=== PATIENT | male | born 1950 | race Caucasian/White ===

== ENCOUNTER 2016-08-30 02:12 | Inpatient (IN) | payer BC, OTHER ==
[2016-08-30] MEDS ORDERED: dilTIAZem HCL 50 MG/10 ML - 10 ML VIAL IVPUSH ONE ×3 (02:34→02:55)
[2016-08-30] MEDS ORDERED: dilTIAZem HCL 125 MG/25 ML - 25 ML VIAL ONE (02:35)
[2016-08-30] MEDS ORDERED: SODIUM CHLORIDE 0.9% 500 ML INFUS.BAG IV ONE (02:38)
[2016-08-30] MEDS ORDERED: IBUPROFEN 600 MG TABLET (FP) PO ONE ×2 (02:39→02:43)
[2016-08-30] MEDS ORDERED: ACETAMINOPHEN 1000 MG/100 ML VIAL (NON FORMULARY) IVPB ONE (02:39)
[2016-08-30] MEDS ORDERED: ACETAMINOPHEN INJECTION 100 ML IVPB ONE (02:43)
[2016-08-30 02:44] LABS: BASOPHIL 0.3 % (0-2.0); EOSINOPHIL 1.5 % (0-4.5); MCH 29.6 pg (25.7-33.7); MEAN CELL VOLUME 89.6 fl (80-96); MEAN PLT VOLUME 8.6 fl (7.5-11.1); NEUTROPHILS 78.2 % (42.8-82.8); PLATELET COUNT 145 K/MM3 (134-434); RDW 14.8 % (11.9-15.9); WHITE BLOOD COUNT 12.7 K/mm3 (4.0-10.0)
--- NOTE | 2016-08-30 02:47 | PDOC ---
History of Present Illness - General History Source: Patient, Old Records - History of Present Illness Initial Comments: 08/30/16 03:01 The patient is a 65 year old male with a significant past medical history of COPD, CHF, [place] x2, hyperlipidemia, and pulmonary hypertension, on a lung transplant program for 8 years, brought by ambulance to the Emergency Department with subjective fever, and heart palpitations. The patient reports that he came home from the theatre earlier tonight when he started experiencing heart palpitations and a subjective fever that he often feels with episodes of heart palpitations. He admits that these episodes occur frequently, and he called his pillowcase cleaner Dr. Gutierrez who advised him to come to the ED. The patient reports a cough and shortness of breath, and admits to the need for a lung transplant due to COPD and a hole in his lung. The patient admits that he no longer smokes cigarettes. The patient denies chest pain. Patient denies hemoptysis. Patient denies nausea , vomiting, and diarrhea. Patient denies headache, dizziness, and blurry vision. Patient denies dysuria, urinary frequency, and hematuria. PCP: Dr. Leslie Insecticide Supervisor: Dr. Gutierrez <Nila Culver - Last Filed: 08/30/16 05:53> <Betsy White - Last Filed: 09/01/16 04:07> - General Chief Complaint: Shortness of Breath Stated Complaint: SHORTNESS OF BREATH Time Seen by Provider: 08/30/16 02:33 Past History <Nila Culver - Last Filed: 08/30/16 05:53> - Past Medical History Anemia: No Asthma: No Cancer: No Cardiac Disorders: Yes (TX, CHF) CVA: No COPD: Yes (o2 at home) CHF: Yes Dementia: No Diabetes: No GI Disorders: Yes (umbilical hernia x 2) Disorders: Yes (UTI) HTN: Yes (FLUCTUATE) Hypercholesterolemia: Yes Kidney Stones: Yes Suicide Attempt (Hx): No Seizures: No Thyroid Disease: No - Surgical History Abdominal Surgery: No Appendectomy: No Cardiac Surgery: No Cholecystectomy: No Lung Surgery: No Neurologic Surgery: No Orthopedic Surgery: No - Psycho/Social/Smoking Cessation Hx Anxiety: Yes (per pt has panic) Suicidal Ideation: No Smoking Status: No Smoking History: Never smoked Have you smoked in the past 12 months: No Number of Cigarettes Smoked Daily: 40 If you are a former smoker, when did you quit?: 2004 Information on smoking cessation initiated: No Hx Alcohol Use: No Drug/Substance Use Hx: No Substance Use Type: None Hx Substance Use Treatment: No <Betsy White - Last Filed: 09/01/16 04:07> - Past Medical History Allergies/Adverse Reactions: Allergies Allergy/AdvReac Type Severity Reaction Status Date / Time moxifloxacin HCl Allergy Severe Verified 08/30/16 02:24 [From Avelox] aclidinium bromide Allergy Verified 08/30/16 02:24 [From Tudorza Pressair] shellfish derived Allergy Verified 08/30/16 02:24 Home Medications: Ambulatory Orders Albuterol Sulfate Inhaler - [Ventolin HFA Inhaler -] 2 inh PO Q4H 02/08/14 Arformoterol Tartrate [Brovana] 15 mcg IH BID 02/08/14 Aspirin [ASA -] 81 mg PO DAILY 02/08/14 Furosemide [Lasix -] 20 mg PO PRN 02/08/14 Tamsulosin HCl [Flomax -] 0.4 mg PO DAILY 02/08/14 Tiotropium [place] [Spiriva] 1 inh PO DAILY 02/08/14 Beclomethasone Dipropionate [Qvar] 8.7 gm IH DAILY 01/09/16 Alprazolam [Xanax] 0.25 mg PO BID #20 tablet MDD 2 01/18/16 Atorvastatin Ca [Lipitor] 10 mg PO DAILY 08/30/16 Review of Systems - Review of Systems Able to Perform ROS?: Yes Comments:: 08/30/16 03:03 GENERAL/CONSTITUTIONAL: + subjective fever. No chills. No weakness. HEAD, EYES, EARS, NOSE AND THROAT: No change in vision. No ear pain or discharge. No sore throat. CARDIOVASCULAR: + shortness of breath, + palpitations. No chest pain. RESPIRATORY: + cough. No wheezing, or hemoptysis. GASTROINTESTINAL: No nausea, vomiting, diarrhea or constipation. GENITOURINARY: No dysuria, frequency, or change in urination. MUSCULOSKELETAL: No joint or muscle swelling or pain. No neck or back pain. SKIN: No rash NEUROLOGIC: No headache, vertigo, loss of consciousness, or change in strength/ sensation. ENDOCRINE: No increased thirst. No abnormal weight change. HEMATOLOGIC/LYMPHATIC: No anemia, easy bleeding, or history of blood clots. ALLERGIC/IMMUNOLOGIC: No hives or skin allergy. <Nila Culver - Last Filed: 08/30/16 05:53> *Physical Exam - Vital Signs Last Vital Signs Temp Pulse Resp BP Pulse Ox 100.4 F H 137 H 26 H 116/84 100 08/30/16 02:24 08/30/16 02:24 08/30/16 02:24 08/30/16 02:24 08/30/16 02:24 - Physical Exam Comments: 08/30/16 05:53 GENERAL: Fever noted. Awake, alert, and fully oriented, in no acute distress HEAD: No signs of trauma EYES: PERRLA, EOMI, sclera anicteric, conjunctiva clear ENT: Auricles normal inspection, hearing grossly normal, nares patent, oropharynx clear without exudates. Moist mucosa NECK: Normal ROM, supple, no lymphadenopathy, JVD, or masses LUNGS: Decreased breath sounds bilaterally and throughout. No wheezes, and no crackles HEART: Tachycardic but regular rhythm. No murmurs, rubs or gallops ABDOMEN: Soft, nontender, normoactive bowel sounds. No guarding, no rebound. No masses EXTREMITIES: Normal range of motion, no edema. Moving all extremities. No clubbing or cyanosis. No cords, erythema, or tenderness NEUROLOGICAL: Cranial nerves II through XII grossly intact. Normal speech, normal gait SKIN: Warm, Dry, normal turgor, no rashes or lesions noted. <Nila Culver - Last Filed: 08/30/16 05:53> - Vital Signs Last Vital Signs Temp Pulse Resp BP Pulse Ox 100.4 F H 137 H 26 H 116/84 100 08/30/16 02:24 08/30/16 02:24 08/30/16 02:24 08/30/16 02:24 08/30/16 02:24 <Betsy White - Last Filed: 09/01/16 04:07> ED Treatment Course - LABORATORY CBC & Chemistry Diagram: 08/30/16 02:33 08/30/16 02:33 - ADDITIONAL ORDERS Additional order review: 08/30/16 02:33 RBC 4.44 MCV 89.6 MCHC 33.0 RDW 14.8 MPV 8.6 Neutrophils % 78.2 Lymphocytes % 11.2 D Monocytes % 8.8 Eosinophils % 1.5 D Basophils % 0.3 D - RADIOLOGY Radiograph Interpretation: 08/30/16 03:[address] from 07/16/[address] Julisa Cameron IMPRESSION: No significant interval change. Bilateral upper lobe pleural thickening, scarring and traction bronchiectatic changes are again seen, mainly posteriorly with an approximately 2.6 cm cyst/cavity in the left upper lobe, posteriorly, without interval change. Mild lung emphysema. Nonobstructing right renal stones. - Medications Given in the ED: ED Medications Discontinued Medications Generic Name Dose Route Start Last Admin Trade Name Freq PRN Reason Stop Dose Admin Acetaminophen 1,000 mg 08/30/16 02:39 08/30/16 02:49 Ofirmev Injection - IVPB 08/30/16 02:40 1,000 mg ONCE ONE Administration Ibuprofen 600 mg 08/30/16 02:39 08/30/16 02:48 Motrin - PO 08/30/16 02:40 600 mg ONCE ONE Administration <Nila Culver - Last Filed: 08/30/16 05:53> - LABORATORY CBC & Chemistry Diagram: 08/31/16 06:00 08/31/16 06:00 - RADIOLOGY Radiology Studies Ordered: Category Date Time Status CHEST X-RAY PORTABLE* [RAD] Stat Radiology 08/30/16 02:27 Ordered <Betsy White - Last Filed: 09/01/16 04:07> Medical Decision Making - Medical Decision Making 08/30/16 03:28 Dr. Leslie was called at his office at 3:18. Dr. Leslie returned the call and spoke to Dr. White about the patient's care. <Nila Culver - Last Filed: 08/30/16 05:53> - Medical Decision Making 09/01/16 04:04 Pt comes with SOB and palpitations. He was at a dinner theatre tonight, and states that he overexerted self, ate salty foods, and furthermore his antibiotic for bronchitis is not controlling his infection, and as a result he has hypoxia and cough and fever. Pt was placed on IV abx and labs sent and hydrated and placed on bipap, for comfort. He is tachycardic on arrival. He was treated with IV diltiazem and because of tachycardia His PMD and I agreed to admit him to the telemetry unit. <Betsy White - Last Filed: 09/01/16 04:07> *DC/Admit/Observation/Transfer - Attestations Scribe Attestion: 08/30/16 03:04 Documentation prepared by Nila Culver, acting as medical technician assistant for Betsy White MD. <Nila Culver - Last Filed: 08/30/16 05:53> - Discharge Dispostion Admit: Yes <Betsy White - Last Filed: 09/01/16 04:07> Diagnosis at time of Disposition: COPD (chronic obstructive pulmonary disease) with acute bronchitis, Bilateral pneumonia, Fever, Acute respiratory distress, Tachycardia - Referrals
[2016-08-30] MEDS ORDERED: PIPERACILLIN/TAZOB 3.375 GM 3.375 GM in DEXTROSE 5%-WATER - 50 ML IVPB ONE (02:51)
[2016-08-30 03:06] LABS: INR 1.08 (0.82-1.09); PROTHROMBIN TIME (PATIENT) 11.9 SEC (9.98-11.88)
[2016-08-30 03:16] LABS: ALBUMIN 3.8 g/dl (3.4-5.0); ANION GAP 10 (8-16); BILIRUBIN,TOTAL 0.5 mg/dL (0.2-1.0); CALCIUM 8.7 mg/dL (8.5-10.1); CO2 34 mmol/L (21-32); CREATININE 0.9 mg/dL (0.7-1.3); GLUCOSE,RANDOM 100 mg/dL (74-106); SGOT/AST 16 U/L (15-37); SGPT/ALT 20 U/L (12-78); TOT PROT 6.9 g/dl (6.4-8.2)
[2016-08-30 03:18] LABS: ALK PHOS 75 U/L (45-117); TROPONIN I < 0.02 ng/ml (0.00-0.05)
[2016-08-30] MEDS ORDERED: PIPERACILLIN/TAZOB 3.375 GM 50 ML IVPB ONE (03:19)
[2016-08-30 03:21] LABS: URINE APPEARANCE CLEAR; URINE BILIRUBIN NEGATIVE (NEGATIVE); URINE COLOR LTYELLOW; URINE GLUCOSE (UA) NEGATIVE (NEGATIVE); URINE KETONE NEGATIVE (NEGATIVE); URINE LEUK ESTERASE NEGATIVE (NEGATIVE); URINE NITRITE NEGATIVE (NEGATIVE); URINE PROTEIN NEGATIVE (NEGATIVE); URINE UROBILINOGEN NEGATIVE E.U./dl (0.2-1.0)
[2016-08-30 03:33] LABS: URINE BLOOD 1+ (NEGATIVE)
[2016-08-30] MEDS ORDERED: ACETAMINOPHEN 325 MG TABLET (FP) PO PRN (03:41)
[2016-08-30 04:10] LABS: URINE MUCUS RARE; URINE RBC 3 /hpf (0-3); URINE WBC <1 /hpf (3-5)
[2016-08-30 06:45] LABS: TROPONIN I < 0.02 ng/ml (0.00-0.05)
[2016-08-30] MEDS: SODIUM CHLORIDE 1,000 ML IV SCH ×2 (07:30→22:27)
[2016-08-30] MEDS: TAMSULOSIN HCL 0.4 MG CAP.ER.24H (FP) PO SCH (09:24)
[2016-08-30] MEDS: methylPREDNISolone NA SUCC 125 MG/2 ML VIAL IVPB SCH ×4 (10:05→22:25)
[2016-08-30] MEDS: HEPARIN NA (PORCINE) 5,000 UNITS/ML 1ML VIAL SQ SCH ×2 (10:05→22:25)
[2016-08-30] MEDS: ASPIRIN 81 MG CHEWABLE TABLETS PO SCH (10:05)
[2016-08-30] MEDS: ALPRAZolam 0.25 MG TABLET PO SCH ×2 (10:05→22:25)
[2016-08-30] MEDS ORDERED: ALPRAZolam 0.25 MG TABLET ONE (10:09)
--- NOTE | 2016-08-30 11:19 | PN ---
Progress Note (short form) - Note Progress Note: Pulmonary I was called by patient early this A.M. be because he developed sudden onset of fever to 102.4 and chills. No increase in dyspnea or sputum. No chest pain or palpitations. Pt was advised to go to ER for further evaluation to r/o sepsis. PMH positive for : Severe COPD-O2 and steroid dependent Recurrent renal stones requiring lithotripsy several times UTI several times Hypertension Pt couldn't tolerate Tudorza in the past but does well with Spiriva. Patient is followed by the transplant program at [place] but his lung function is "not bad enough" for transplantation. He goes to Pulmonary Rehab at [facility] on a regular basis. In December 2015 he was in hospital with acute bronchitis and found to have a left apical cavity: AFB smear (+) for numerous AFB. CT findings had worsened compared to 06/16 so this was felt to possibly represent tissue infection rather than colonization and could eventually require tx. M.TB PCR and MAC PCR, however, were both negative. Cultures eventually grew out Mycobacterium Xenopi. Pt has remained asymptomatic and his cavity has not significantly changed on subsequent CT so he not been treated for M.Xenopi but his CT is followed periodically. I am unaware of the history of myocardial infarctions mentioned in the ER physician's note. Full consult to follow.
--- NOTE | 2016-08-30 12:19 | EKG ---
Test Reason : Blood Pressure : / mmHG Vent. Rate : 134 BPM Atrial Rate : 134 BPM P-R Int : 158 ms QRS Dur : 124 ms QT Int : 382 ms P-R-T Axes : 080 083 035 degrees QTc Int : 570 ms POOR DATA QUALITY, INTERPRETATION MAY BE ADVERSELY AFFECTED SINUS TACHYCARDIA RIGHT BUNDLE BRANCH BLOCK T WAVE ABNORMALITY, CONSIDER INFERIOR ISCHEMIA ABNORMAL ECG WHEN COMPARED WITH ECG OF 14-FEB-2016 07:36, NO SIGNIFICANT CHANGE WAS FOUND Confirmed by EULALIO INIGUEZ MD ([id number]) on 08/30/2016 12:19:12 PM Referred By: Confirmed By:EULALIO INIGUEZ MD
--- NOTE | 2016-08-30 13:27 | HP ---
Admitting History and Physical - Admission History of Present Illness: 65 year old male with a significant past medical history of COPD, CHF, [place] x2, hyperlipidemia, and pulmonary hypertension, on a lung transplant program for 8 years, brought by ambulance to the Emergency Department with subjective fever, and heart palpitations. The patient reports that he came home from the theatre earlier tonight when he started experiencing heart palpitations and a subjective fever that he often feels with episodes of heart palpitations. The patient reports a cough and shortness of breath, - Past Medical History Cardiovascular: Yes: CHF, Hyperlipdemia, Pulmonary Hypertension Pulmonary: Yes: COPD (home oxygen), Previously Intubated (intubated one time several years ago for respiratory failure) Gastrointestinal: Yes: GERD Renal/: Yes: Renal Calculi, UTI - Smoking History Smoking history: Never smoked Have you smoked in the past 12 months: No Aproximately how many cigarettes per day: 40 If you are a former smoker, when did you quit?: 2004 - Alcohol/Substance Use Hx Alcohol Use: No History of Substance Use: reports: None - Social History ADL: Independent 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 History of Recent Travel: No Home Medications - Allergies Allergies/Adverse Reactions: Allergies Allergy/AdvReac Type Severity Reaction Status Date / Time moxifloxacin HCl Allergy Severe Verified 08/30/16 02:24 [From Avelox] aclidinium bromide Allergy Verified 08/30/16 02:24 [From Tudorza Pressair] shellfish derived Allergy Verified 08/30/16 02:24 - Home Medications Home Medications: Ambulatory Orders Albuterol Sulfate Inhaler - [Ventolin HFA Inhaler -] 2 inh PO Q4H 02/08/14 Arformoterol Tartrate [Brovana] 15 mcg IH BID 02/08/14 Aspirin [ASA -] 81 mg PO DAILY 02/08/14 Furosemide [Lasix -] 20 mg PO PRN 02/08/14 Tamsulosin HCl [Flomax -] 0.4 mg PO DAILY 02/08/14 Tiotropium [place] [Spiriva] 1 inh PO DAILY 02/08/14 Beclomethasone Dipropionate [Qvar] 8.7 gm IH DAILY 01/09/16 Alprazolam [Xanax] 0.25 mg PO BID #20 tablet MDD 2 08/19/16 Atorvastatin Ca [Lipitor] 10 mg PO DAILY 08/30/16 Review of Systems - Review of Systems Constitutional: reports: Fever, Weakness Respiratory: reports: Cough, SOB Gastrointestinal: denies: Abdominal Pain Physical Examination Vital Signs: Vital Signs Temperature 97.6 F 08/30/16 10:05 Pulse Rate 85 08/30/16 13:01 Respiratory Rate 20 08/30/16 13:01 Blood Pressure 98/58 08/30/16 13:01 O2 Sat by Pulse Oximetry (%) 100 08/30/16 13:01 Cardiovascular: Yes: Tachycardia, S1, S2 Respiratory: Yes: Diminished, Rhonchi Gastrointestinal: Yes: Normal Bowel Sounds, Soft Problem List - Problems (1) Acute respiratory distress Assessment/Plan: O2 PULM ON CASE STEROIDS NEBS Code(s): J80 - ACUTE RESPIRATORY DISTRESS SYNDROME (2) COPD (chronic obstructive pulmonary disease) with acute bronchitis Assessment/Plan: ABOVE Code(s): J44.0 - CHRONIC OBSTRUCTIVE PULMON DISEASE W ACUTE LOWER RESP INFCT (3) Tachycardia Assessment/Plan: DUE TO FEVER MONITOR EKG CARDIO Code(s): R00.0 - TACHYCARDIA, UNSPECIFIED (4) Pneumonia Assessment/Plan: ABX F/U CXR ID Code(s): J18.9 - PNEUMONIA, UNSPECIFIED ORGANISM
[2016-08-30] MEDS ORDERED: methylPREDNISolone NA SUCC 40 MG/1 ML VIAL ONE ×2 (14:55→18:31)
--- NOTE | 2016-08-30 18:29 | PN ---
Progress Note (short form) - Note Progress Note: ID consult dictated imp/reccd Fever COPD 65 year old man with COPD home oxygen, CAD, admitted with fever- no diarrhea, no dysuria, no cough or SOB cxray no infiltrate cultures sent rocephin for now
[2016-08-30] MEDS: cefTRIAXone 1 GM/50 ML BAG (PRE-DOCKED) IVPB SCH (19:20)
[2016-08-30] MEDS ORDERED: CEFTRIAXONE 50 ML ONE (19:21)
--- NOTE | 2016-08-30 19:47 | CONS ---
DATE OF CONSULTATION: 08/30/2016 INFECTIOUS DISEASE CONSULTATION HISTORY OF PRESENT ILLNESS: This is a 65-year-old man with a past medical history of COPD, CHF, atypical mycobacteria. He went to a play last night with his . He is on home oxygen. He noted while he was at the play that his oxygen tank was empty, but he felt fine. After the play he said it was very cold and damp and rainy outside. They went to [facility] to see his daughter who was admitted there. After there, he went home. After he got home he took his temperature and he was feeling weak, tired and had some nausea and he had a temperature of 101.6. He denies any cough. He denies any dysuria. He has no nausea or vomiting. He called Dr. Mckee who advised him to come to the emergency room. He did not have any rigors. He to the ER reported palpitations. He has no chest pain. PAST MEDICAL HISTORY: Is notable for history of heart failure, hyperlipidemia, pulmonary hypertension, COPD on home oxygen. He was intubated in the remote past. He has been doing very well with pulmonary rehab. He has a history of GERD, renal calculi, prior history of UTI. He recently saw Dr. Castillo about a week ago who checked his urine and told him everything was fine. ALLERGIES: MOXIFLOXACIN ,TUDORZA, SHELLFISH. MEDICATIONS AN OUTPATIENT: Include Ventolin inhaler, Brovana, aspirin, furosemide, Flomax, Spiriva, QVAR, Xanax and Lipitor. FAMILY HISTORY: Noncontributory. SOCIAL HISTORY: He is and lives with his . He stopped smoking in 2004. There is no history of any substance use. He has been on disability. REVIEW OF SYSTEMS: As per HPI. There has been no diarrhea, dysuria. PHYSICAL EXAMINATION; VITAL SIGNS: Temperature 97.6, he has had no fever since admission, pulse of 85, blood pressure 98/58, respiratory rate 20, O2 saturation is 100% on 3 L. HEENT: Normocephalic. Eyes are anicteric. NECK: Supple. LUNGS: Clear to auscultation. HEART: Regular rate and rhythm. ABDOMEN: Soft, nontender. EXTREMITIES: No edema. GENERAL: He is eating his dinner quite comfortably and feels well. LABORATORY DATA: White count of 12.7, hemoglobin 13.1. BUN 18, creatinine 0.9. LFTs are normal. Urinalysis is negative. Culture are pending. Influenza screen is negative. Chest x-ray is negative. IMPRESSION AND RECOMMENDATIONS: In summary this is a 65-year-old man with sudden onset of fever, admitted for further evaluation. Cultures are pending. We will treat him at this time with ceftriaxone while awaiting further test results. This may all be a viral syndrome in which case hopefully in 48 hours we will be able to discharge him home. Follow up recommendations to follow based on his clinical course. AKUA BRYAN M.D. HUMA/[id number]
[2016-08-30 22:53] VITALS: BMI 22.6
[2016-08-31] MEDS: SODIUM CHLORIDE 1,000 ML IV SCH ×2 (06:35→15:03)
[2016-08-31] MEDS: PIPERACILLIN/TAZOB 3.375 GM/50 ML PRE-DOCKED IVPB SCH (07:06)
[2016-08-31] MEDS: ALBUTEROL SO4 0.083% IH SOL 2.5 MG/3 ML VIAL.NEB. NEB PRN (07:15)
[2016-08-31 07:42] LABS: MCH 30.5 pg (25.7-33.7); MCHC 33.8 g/dl (32.0-35.9); MEAN CELL VOLUME 90.1 fl (80-96); MEAN PLT VOLUME 8.7 fl (7.5-11.1); NEUTROPHILS 93.9 % (42.8-82.8); PLATELET COUNT 143 K/MM3 (134-434); RDW 14.7 % (11.9-15.9); WHITE BLOOD COUNT 9.9 K/mm3 (4.0-10.0)
[2016-08-31 07:49] LABS: FREE T4 1.22 ng/dl (0.76-1.16); TROPONIN I < 0.02 ng/ml (0.00-0.05)
[2016-08-31 07:50] LABS: ALBUMIN 3.2 g/dl (3.4-5.0); ANION GAP 12 (8-16); CALCIUM 8.1 mg/dL (8.5-10.1); CO2 24 mmol/L (21-32); GLUCOSE,RANDOM 138 mg/dL (74-106)
[2016-08-31 08:02] LABS: ALK PHOS 66 U/L (45-117); BILIRUBIN,TOTAL 0.6 mg/dL (0.2-1.0); CREATININE 0.6 mg/dL (0.7-1.3); SGOT/AST 16 U/L (15-37); SGPT/ALT 22 U/L (12-78); THYROID STIMULATING HORMONE 0.18 uIU/ml (0.358-3.74); TOT PROT 6.4 g/dl (6.4-8.2)
[2016-08-31] MEDS: TAMSULOSIN HCL 0.4 MG CAP.ER.24H (FP) PO SCH (08:34)
[2016-08-31] MEDS: ALPRAZolam 0.25 MG TABLET PO SCH ×2 (09:16→21:29)
[2016-08-31] MEDS: HEPARIN NA (PORCINE) 5,000 UNITS/ML 1ML VIAL SQ SCH ×3 (09:16→21:35)
[2016-08-31] MEDS: methylPREDNISolone NA SUCC 125 MG/2 ML VIAL IVPB SCH ×4 (09:16→21:28)
[2016-08-31] MEDS: ASPIRIN 81 MG CHEWABLE TABLETS PO SCH (09:17)
--- NOTE | 2016-08-31 09:49 | PN ---
Progress Note, Physician History of Present Illness: feels better - Current Medication List Current Medications: Active Medications Acetaminophen (Tylenol -) 650 mg PO Q4H PRN PRN Reason: FEVER Albuterol Sulfate (Ventolin 0.083% Nebulizer Soln -) 1 amp NEB Q4H PRN PRN Reason: SHORT OF BREATH/WHEEZING Last Admin: 08/31/16 07:15 Dose: 1 amp Alprazolam (Xanax -) 0.25 mg PO BID [facility] Last Admin: 08/31/16 09:16 Dose: 0.25 mg Aspirin (Asa -) 81 mg PO DAILY [facility] Last Admin: 08/31/16 09:17 Dose: 81 mg Atorvastatin Calcium (Lipitor -) 10 mg PO HS [facility] Ceftriaxone Sodium (Rocephin 1gm Ivpb (Pre-Docked)) 1 gm IVPB DAILY [facility] PRN Reason: Protocol Last Admin: 08/30/16 19:20 Dose: 1 gm Furosemide (Lasix -) 20 mg PO DAILY [facility] Heparin Sodium (Porcine) (Heparin -) 5,000 unit SQ BID [facility] Last Admin: 08/31/16 09:21 Dose: Not Given Sodium Chloride (Normal Saline -) 1,000 mls @ 75 mls/hr IV ASDIR [facility] Last Admin: 08/31/16 06:35 Dose: Not Given Methylprednisolone Sodium Succinate (Solu-Medrol -) 80 mg IVPB QID [facility] Last Admin: 08/31/16 09:16 Dose: 80 mg Tamsulosin HCl (Flomax -) 0.4 mg PO DAILY@0830 [facility] Last Admin: 08/31/16 08:34 Dose: 0.4 mg - Objective Vital Signs: Vital Signs Temperature 97.6 F 08/31/16 06:00 Pulse Rate 81 08/31/16 06:00 Respiratory Rate 18 08/31/16 06:00 Blood Pressure 129/81 08/31/16 06:00 O2 Sat by Pulse Oximetry (%) 98 08/30/16 22:00 Cardiovascular: Yes: Regular Rate and Rhythm Respiratory: Yes: Diminished, On Nasal O2, Rhonchi Gastrointestinal: Yes: Normal Bowel Sounds, Soft Edema: No Neurological: Yes: Alert, Oriented. No: Aphasia, Dysarthria, Facial Droop Labs: CBC, BMP 08/31/16 06:00 08/31/16 06:00 INR, PTT INR 1.08 (0.82-1.09) 08/30/16 02:33 Problem List - Problems (1) Acute respiratory distress Assessment/Plan: O2 PULM ON CASE STEROIDS NEBS Code(s): J80 - ACUTE RESPIRATORY DISTRESS SYNDROME (2) COPD (chronic obstructive pulmonary disease) with acute bronchitis Assessment/Plan: ABOVE Code(s): J44.0 - CHRONIC OBSTRUCTIVE PULMON DISEASE W ACUTE LOWER RESP INFCT (3) Tachycardia Assessment/Plan: DUE TO FEVER MONITOR--HOLTER EKG CARDIO Code(s): R00.0 - TACHYCARDIA, UNSPECIFIED (4) Pneumonia Assessment/Plan: ABX F/U CT ID Code(s): J18.9 - PNEUMONIA, UNSPECIFIED ORGANISM (5) Syncope Assessment/Plan: ECHO HOLTER CARDIO AND NEURO Code(s): R55 - SYNCOPE AND COLLAPSE
[2016-08-31] MEDS: cefTRIAXone 1 GM/50 ML BAG (PRE-DOCKED) IVPB SCH (11:21)
[2016-08-31] MEDS: FUROSEMIDE 20 MG TABLET (FP) PO SCH (12:03)
--- NOTE | 2016-08-31 14:46 | PN ---
Progress Note (short form) - Note Progress Note: Chief Complaint: Events noted, notes reviewed, Fever and progressive dyspnea in a patient with known history of advanced chronic obstructive pulmonary disease on home oxygen therapy History of Present Illness: Seen and examined. Full consult dictated - Current Medication List Current Medications Acetaminophen (Tylenol -) 650 mg PO Q4H PRN PRN Reason: FEVER Albuterol Sulfate (Ventolin 0.083% Nebulizer Soln -) 1 amp NEB Q4H PRN PRN Reason: SHORT OF BREATH/WHEEZING Last Admin: 08/31/16 07:15 Dose: 1 amp Alprazolam (Xanax -) 0.25 mg PO BID [facility] Last Admin: 08/31/16 09:16 Dose: 0.25 mg Aspirin (Asa -) 81 mg PO DAILY [facility] Last Admin: 08/31/16 09:17 Dose: 81 mg Atorvastatin Calcium (Lipitor -) 10 mg PO HS [facility] Ceftriaxone Sodium (Rocephin 1gm Ivpb (Pre-Docked)) 1 gm IVPB DAILY [facility] PRN Reason: Protocol Last Admin: 08/31/16 11:21 Dose: 1 gm Furosemide (Lasix -) 20 mg PO DAILY [facility] Last Admin: 08/31/16 12:03 Dose: 20 mg Heparin Sodium (Porcine) (Heparin -) 5,000 unit SQ BID [facility] Last Admin: 08/31/16 09:21 Dose: Not Given Sodium Chloride (Normal Saline -) 1,000 mls @ 75 mls/hr IV ASDIR [facility] Last Admin: 08/31/16 06:35 Dose: Not Given Methylprednisolone Sodium Succinate (Solu-Medrol -) 80 mg IVPB QID [facility] Last Admin: 08/31/16 09:16 Dose: 80 mg Tamsulosin HCl (Flomax -) 0.4 mg PO DAILY@0830 [facility] Last Admin: 08/31/16 08:34 Dose: 0.4 mg - Review of Systems Cardiovascular: As noted above Respiratory: As noted above Gastrointestinal: denies: Nausea, Vomiting, Diarrhea, Constipation or Abdominal Pain Musculoskeletal: No symptoms reported Neurological: No symptoms reported - Objective Vital Signs: Last Vital Signs Temp Pulse Resp BP Pulse Ox 97.6 F 89 22 129/72 100 08/31/16 10:00 08/31/16 10:00 08/31/16 10:00 08/31/16 10:00 08/31/16 09:00 Neck: Supple Negative JVD Cardiovascular: S1 S2 Regular Rate Rhythm Respiratory: Diminished breath sounds Gastrointestinal: Soft Benign Normal Bowel Sounds Ext: Negative Edema Labs: Assessment/Plan ASSESSMENT: 1. Acute exacerbation of advanced chronic obstructive pulmonary disease on home oxygen therapy, probable pneumonia 2. CAD non-obstructive coronary artery disease angina pectoris 3. Diastolic LV dysfunction with class 0-I NYHA classification LV failure, compensated 4. HTN 5. Hypercholesterolemia 6. Palpitations, referable to sinus tachycardia with no evidence of supra- ventricular tachycardia PLAN: 1. Antibiotics as per the primary team 2. Steroids and bronchodilators as per the pulmonary team 3. If palpitations recur and/or persists additional evaluation is recommended, probable event monitor 4. No value in treating the above noted sinus tachycardia, treatment of the underlying pathology i.e. advanced chronic obstructive pulmonary disease and the febrile illness Ashley Bojorquez MD
--- NOTE | 2016-08-31 14:48 | PN ---
Progress Note (short form) - Note Progress Note: no further fevers apparently had an episode on Thursday with diminished vision?- went for head ct currently no complaints CBC, BMP Vital Signs Period Temp Pulse Resp BP Sys/Morgan Pulse Ox Last 24 Hr 97.5 F-97.9 F 80-93 16-22 128-152/64-81 98-100 cor-rrr lungs clear abd soft,nt ext no edema 08/31/16 06:00 08/31/16 06:00 Microbiology 08/30/16 03:00 Urine - Urine Clean Catch Urine Culture - Final NO GROWTH OBTAINED 08/30/16 03:00 Blood - Peripheral Venous Blood Culture - Preliminary NO GROWTH OBTAINED AFTER 24 HOURS, INCUBATION TO CONTINUE FOR 4 DAYS. 08/30/16 02:57 Blood - Peripheral Venous Blood Culture - Preliminary NO GROWTH OBTAINED AFTER 24 HOURS, INCUBATION TO CONTINUE FOR 4 DAYS. 08/30/16 10:02 Nasopharyngeal Swab Influenza Types A,B Antigen (MANSI) - Final 08/30/16 10:02 Nasopharyngeal Swab - Final a/p for ct scan of chest and head, f/u cultures continue rocephin pending ct scan result
[2016-08-31] MEDS: ATORVASTATIN CA 10 MG TABLET (FP) PO SCH (21:28)
[2016-08-31] MEDS: ARFORMOTEROL TARTRATE 15 MCG/2 ML VIAL NEB SCH (23:10)
[2016-09-01] MEDS: ALBUTEROL SO4 0.083% IH SOL 2.5 MG/3 ML VIAL.NEB. NEB PRN (05:15)
[2016-09-01] MEDS: SODIUM CHLORIDE 1,000 ML IV SCH (05:58)
[2016-09-01] MEDS: TAMSULOSIN HCL 0.4 MG CAP.ER.24H (FP) PO SCH (08:22)
[2016-09-01] MEDS: methylPREDNISolone NA SUCC 125 MG/2 ML VIAL IVPB SCH (09:06)
[2016-09-01] MEDS: HEPARIN NA (PORCINE) 5,000 UNITS/ML 1ML VIAL SQ SCH ×2 (09:11→21:36)
[2016-09-01] MEDS: FUROSEMIDE 20 MG TABLET (FP) PO SCH (09:12)
[2016-09-01] MEDS: ALPRAZolam 0.25 MG TABLET PO SCH ×2 (09:12→21:39)
[2016-09-01] MEDS: ASPIRIN 81 MG CHEWABLE TABLETS PO SCH (09:12)
[2016-09-01] MEDS: cefTRIAXone 1 GM/50 ML BAG (PRE-DOCKED) IVPB SCH (09:14)
--- NOTE | 2016-09-01 09:58 | CON.PULM ---
Consult Consult Specialty:: Pulmonary Reason for Consultation:: fever and dyspnea - History of Present Illness Chief Complaint: fever and chills History of Present Illness: 65 year old male with severe COPD, O2 and steroid dependent, developed fever and chills after going to the theatre.No sputum or hemoptysis. No chest pain or palpitations. PMH positive for : Severe COPD-O2 and steroid dependent Recurrent renal stones requiring lithotripsy several times UTI several times Hypertension Pt couldn't tolerate Tudorza in the past but does well with Spiriva. Patient is followed by the transplant program at [place] but his lung function is "not bad enough" for transplantation. He goes to Pulmonary Rehab at [facility] on a regular basis. In December 2015 he was in hospital with acute bronchitis and found to have a left apical cavity: AFB smear (+) for numerous AFB. CT findings had worsened compared to 06/16 so this was felt to possibly represent tissue infection rather than colonization and could eventually require tx. M.TB PCR and MAC PCR, however, were both negative. Cultures eventually grew out Mycobacterium Xenopi. Pt has remained asymptomatic and his cavity has not significantly changed on subsequent CT so he not been treated for M.Xenopi but his CT is followed periodically. - History Source History Provided By: Patient, Medical Record Limitations to Obtaining History: No Limitations - Past Medical History Cardio/Vascular: Yes: CHF, Hyperlipdemia, Pulmonary Hypertension Pulmonary: Yes: COPD (home oxygen), Previously Intubated (intubated one time several years ago for respiratory failure) Gastrointestinal: Yes: GERD Renal/: Yes: Renal Calculi, UTI Additional Medical History: Inguinal hernia. 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 History of Recent Travel: No Home Medications - Allergies Allergies/Adverse Reactions: Allergies Allergy/AdvReac Type Severity Reaction Status Date / Time moxifloxacin HCl Allergy Severe Verified 08/30/16 02:24 [From Avelox] aclidinium bromide Allergy Verified 08/30/16 02:24 [From [facility]] shellfish derived Allergy Verified 08/30/16 02:24 - Home Medications Home Medications: Ambulatory Orders Albuterol Sulfate Inhaler - [Ventolin HFA Inhaler -] 2 inh PO Q4H 02/08/14 Arformoterol Tartrate [Brovana] 15 mcg IH BID 02/08/14 Aspirin [ASA -] 81 mg PO DAILY 02/08/14 Furosemide [Lasix -] 20 mg PO PRN 02/08/14 Tamsulosin HCl [Flomax -] 0.4 mg PO DAILY 02/08/14 Tiotropium [place] [Spiriva] 1 inh PO DAILY 02/08/14 Beclomethasone Dipropionate [Qvar] 8.7 gm IH DAILY 01/09/16 Alprazolam [Xanax] 0.25 mg PO BID #20 tablet MDD 2 01/18/16 Atorvastatin Ca [Lipitor] 10 mg PO DAILY 08/30/16 Physical Exam Vital Sings: Vital Signs Temperature 98.7 F 09/01/16 06:00 Pulse Rate 91 H 09/01/16 06:00 Respiratory Rate 20 09/01/16 06:00 Blood Pressure 132/73 09/01/16 06:00 O2 Sat by Pulse Oximetry (%) 99 08/31/16 21:00 Constitutional: Yes: No Distress Eyes: No: Sclera Icterus HENT: Yes: Atraumatic, Normocephalic Neck: Yes: Supple, Trachea Midline Cardiovascular: Yes: Regular Rate and Rhythm. No: JVD Respiratory: Yes: Diminished (decreased intensity breath sounds bilaterally. No wheezing or rhonchi.) ...Inspection: Yes: WNL ...Percussion: No: Dullnes, Hyperresonance ...Clubbing: No Gastrointestinal: Yes: Soft. No: Hepatomegaly, Splenomegaly, Tenderness Extremities: No: Calf Tenderness Edema: No Neurological: Yes: Alert, Oriented Labs: CBC, BMP 08/31/16 06:00 08/31/16 06:00 Imaging - Results Cat Scan: Report Reviewed, Image Reviewed (No signifcant change from previous Ct chest) Problem List - Problems (1) COPD (chronic obstructive pulmonary disease) with acute bronchitis Code(s): J44.0 - CHRONIC OBSTRUCTIVE PULMON DISEASE W ACUTE LOWER RESP INFCT Assessment/Plan Acute exacerbation of COPD probably related to recent viral infection. Respiratory status stable. No evidence pneumonia. LINDSEY cavity, possibly due to M. Xenopi, is stable and doesn't require treatment at this time. Suggest: systemic steroid taper continue bronchodilators and inhaled seroids f/u CtT chest in several months O2 to maintain SaO2>90 Thank you for referring this patient for consultation .
[2016-09-01] MEDS: ARFORMOTEROL TARTRATE 15 MCG/2 ML VIAL NEB SCH ×2 (10:40→21:07)
--- NOTE | 2016-09-01 13:13 | PN ---
Progress Note, Physician Chief Complaint: patient is awake alert feeling better Ct scan noted - Current Medication List Current Medications: Active Medications Acetaminophen (Tylenol -) 650 mg PO Q4H PRN PRN Reason: FEVER Albuterol Sulfate (Ventolin 0.083% Nebulizer Soln -) 1 amp NEB Q4H PRN PRN Reason: SHORT OF BREATH/WHEEZING Last Admin: 09/01/16 05:15 Dose: 1 amp Alprazolam (Xanax -) 0.25 mg PO BID REPLACED BY [facility] Last Admin: 09/01/16 09:12 Dose: 0.25 mg Arformoterol Tartrate (Brovana (Restricted To Pulmonology/Resp) -) 1 amp NEB BID REPLACED BY [facility] Last Admin: 09/01/16 10:40 Dose: 1 amp Aspirin (Asa -) 81 mg PO DAILY REPLACED BY [facility] Last Admin: 09/01/16 09:12 Dose: 81 mg Atorvastatin Calcium (Lipitor -) 10 mg PO HS REPLACED BY [facility] Last Admin: 08/31/16 21:28 Dose: 10 mg Ceftriaxone Sodium (Rocephin 1gm Ivpb (Pre-Docked)) 1 gm IVPB DAILY REPLACED BY [facility] PRN Reason: Protocol Last Admin: 09/01/16 09:14 Dose: 1 gm Furosemide (Lasix -) 20 mg PO DAILY REPLACED BY [facility] Last Admin: 09/01/16 09:12 Dose: 20 mg Heparin Sodium (Porcine) (Heparin -) 5,000 unit SQ BID REPLACED BY [facility] Last Admin: 09/01/16 09:11 Dose: Not Given Sodium Chloride (Normal Saline -) 1,000 mls @ 75 mls/hr IV ASDIR REPLACED BY [facility] Last Admin: 09/01/16 05:58 Dose: 75 mls/hr Methylprednisolone Sodium Succinate (Solu-Medrol -) 40 mg IVPB Q8H-IV TA Tamsulosin HCl (Flomax -) 0.4 mg PO DAILY@0830 REPLACED BY [facility] Last Admin: 09/01/16 08:22 Dose: 0.4 mg Tiotropium [place] (Spiriva -) 1 puff IH DAILY REPLACED BY [facility] - Objective Vital Signs: Vital Signs Temperature 98.7 F 09/01/16 06:00 Pulse Rate 91 H 09/01/16 06:00 Respiratory Rate 20 09/01/16 06:00 Blood Pressure 132/73 09/01/16 06:00 O2 Sat by Pulse Oximetry (%) 99 08/31/16 21:00 Constitutional: Yes: Calm Neck: Yes: Trachea Midline Cardiovascular: Yes: Regular Rate and Rhythm, S1, S2 Respiratory: Yes: Diminished, On Nasal O2 Gastrointestinal: Yes: Soft Neurological: Yes: Alert, Oriented Labs: CBC, BMP 08/31/16 06:00 08/31/16 06:00 INR, PTT INR 1.08 (0.82-1.09) 08/30/16 02:33 Problem List - Problems (1) Acute respiratory distress Assessment/Plan: pulm on board nasal oxygen ct noted steroid taper iv abx wbc trending down Code(s): J80 - ACUTE RESPIRATORY DISTRESS SYNDROME (2) COPD (chronic obstructive pulmonary disease) Assessment/Plan: seen by pulm casandra garces Code(s): J44.9 - CHRONIC OBSTRUCTIVE PULMONARY DISEASE, UNSPECIFIED Qualifiers : COPD type: COPD with acute lower respiratory infection Qualified Code(s ): J44.0 - Chronic obstructive pulmonary disease with acute lower respiratory infection (3) BPH (benign prostatic hypertrophy) Assessment/Plan: flomax Code(s): N40.0 - BENIGN PROSTATIC HYPERPLASIA WITHOUT LOWER URINRY TRACT SYMP
[2016-09-01] MEDS: TIOTROPIUM BROMIDE 18 MCG/INH (DEVICE W/ 5 CAPSULES) IH SCH (13:50)
--- NOTE | 2016-09-01 14:03 | CONS ---
DATE OF CONSULTATION: 08/31/2016 REQUESTED BY: Mony Leslie MD CHIEF COMPLAINT: Dyspnea, fever, palpitations, cardiovascular evaluation. A 65-year-old male known to our service with known history of coronary artery disease, nonobstructive coronary artery disease on left heart catheterization and coronary angiography, May 01, 2011, diastolic left ventricular dysfunction with chronic class 0 to 1 [place] [employer] classification left ventricular failure, hypercholesterolemia, advanced chronic obstructive pulmonary disease, interstitial lung disease, on home oxygen therapy, who presented to [facility] with fever and increasing dyspnea, which has been progressive over the last several days. Patient, in addition, reported intermittent palpitations. Patient reported cough, nonproductive of sputum. Patient denied any orthopnea, paroxysmal nocturnal dyspnea, or peripheral edema. Patient denied any chest discomfort. Patient denied any dizziness, lightheadedness, or syncope. Patient, as noted above, has known history of advanced chronic obstructive pulmonary disease, on home oxygen therapy, and has been followed by the lung transplant team at [facility]. Upon evaluation in the emergency room, patient was noted to have evidence of sinus tachycardia, for which Cardizem therapy was administered intravenously. PAST MEDICAL HISTORY: Coronary artery disease, nonobstructive coronary artery disease on left heart catheterization and coronary angiography, diastolic left ventricular dysfunction with class 0 to 1 [place] [employer] classification left ventricular failure, hypercholesterolemia, advanced chronic obstructive pulmonary disease, on home oxygen therapy, gastroesophageal reflux disease. PAST SURGICAL HISTORY: Inguinal hernia repair. SOCIAL HISTORY: Prior history of tobacco abuse. FAMILY HISTORY: Positive coronary artery disease. ALLERGIES: AVELOX. Medical therapy currently includes acetaminophen 650 mg every 4 hours as needed, Ventolin nebulizer every 4 hours as needed, Xanax 0.25 mg twice a day, Ecotrin 81 mg once a day, Lipitor 10 mg once a day, Rocephin 1 g once a day, Lasix 20 mg once a day, subcutaneous heparin 5000 units twice a day, Solu-Medrol 80 mg 4 times a day, Flomax 0.4 mg once a day. REVIEW OF SYSTEMS: Head and Neck: Denies headache, photophobia, blurring of vision. Respiratory: As noted above. Cardiovascular: As noted above. Gastrointestinal: Denies nausea, vomiting, diarrhea, abdominal discomfort. Genitourinary: History of benign prostatic hypertrophy. Musculoskeletal: History of degenerative joint disease. PHYSICAL EXAMINATION: Vital Signs: Blood pressure 129/72 mmHg. Pulse rate is 89 beats per minute, regular. Head and Neck: Pupils equal, react to light and accommodation. Extraocular muscles intact. Anicteric sclerae. Negative JVD. No bruit appreciated. Chest: Diminished breath sounds at the bases bilaterally. Cardiovascular: S1, S2 regular. Grade 1/6 systolic ejection murmur. No clicks or gallops. Abdomen: Soft, benign. Normoactive bowel sound. Extremities: Negative edema. Intact distal pulses. No calf tenderness. Electrocardiogram reveals sinus tachycardia with nonspecific T-wave abnormality and right bundle-branch block. CBC revealed a white cell count 9.9, hemoglobin 12.6, platelet count 143, INR 1.08. Basic metabolic profile revealed sodium 143, potassium 4.0, BUN 15, creatinine 0.6, glucose 138. Troponin less than 0.02. ASSESSMENT: 1. Acute exacerbation of advanced chronic obstructive pulmonary disease, on home oxygen therapy, probable pneumonia. 2. Coronary artery disease, nonobstructive coronary artery disease on coronary angiography, angina pectoris. 3. Diastolic left ventricular dysfunction with class 0 to 1 [place] [employer] classification left ventricular failure, compensated. 4. Hypertensive cardiovascular disease. 5. Hypercholesterolemia. 6. Palpitations, most likely referable to sinus tachycardia with no evidence of supraventricular tachyarrhythmia. RECOMMENDATION: 1. Antibiotics as per the primary team. 2. Steroids and bronchodilators as per the pulmonary team. 3. If palpitations recur and/or persist, additional evaluation is recommended, probably event monitor, which can be performed on outpatient basis. 4. No value in treating the above-noted sinus tachycardia. Treatment of underlying pathology, i.e., advanced chronic obstructive pulmonary disease and the above-noted febrile illness is recommended. Thank you for the kind referral. LUZ LOPEZ M.D. [id number]
--- NOTE | 2016-09-01 14:47 | PN ---
Progress Note (short form) - Note Progress Note: no further fevers eating well constipation, no bm for 3 days Vital Signs Period Temp Pulse Resp BP Sys/Morgan Pulse Ox Last 24 Hr 97.8 F-98.7 F 80-91 20-20 132-142/71-77 99 cor-rrr lungs clear abd firm, nt ext no edema CBC, BMP 08/31/16 06:00 08/31/16 06:00 Microbiology 08/30/16 03:00 Blood - Peripheral Venous Blood Culture - Preliminary NO GROWTH OBTAINED AFTER 48 HOURS, INCUBATION TO CONTINUE FOR 3 DAYS. 08/30/16 02:57 Blood - Peripheral Venous Blood Culture - Preliminary NO GROWTH OBTAINED AFTER 48 HOURS, INCUBATION TO CONTINUE FOR 3 DAYS. 08/30/16 03:00 Urine - Urine Clean Catch Urine Culture - Final NO GROWTH OBTAINED 08/30/16 10:02 Nasopharyngeal Swab Influenza Types A,B Antigen (MANSI) - Final 08/30/16 10:02 Nasopharyngeal Swab - Final ct scan chest unchanged ct scan head- no acute pathology Current Medications Acetaminophen (Tylenol -) 650 mg PO Q4H PRN PRN Reason: FEVER Albuterol Sulfate (Ventolin 0.083% Nebulizer Soln -) 1 amp NEB Q4H PRN PRN Reason: SHORT OF BREATH/WHEEZING Last Admin: 09/01/16 05:15 Dose: 1 amp Alprazolam (Xanax -) 0.25 mg PO BID [facility] Last Admin: 09/01/16 09:12 Dose: 0.25 mg Arformoterol Tartrate (Brovana (Restricted To Pulmonology/Resp) -) 1 amp NEB BID [facility] Last Admin: 09/01/16 10:40 Dose: 1 amp Aspirin (Asa -) 81 mg PO DAILY [facility] Last Admin: 09/01/16 09:12 Dose: 81 mg Atorvastatin Calcium (Lipitor -) 10 mg PO HS [facility] Last Admin: 08/31/16 21:28 Dose: 10 mg Ceftriaxone Sodium (Rocephin 1gm Ivpb (Pre-Docked)) 1 gm IVPB DAILY [facility] PRN Reason: Protocol Last Admin: 09/01/16 09:14 Dose: 1 gm Furosemide (Lasix -) 20 mg PO DAILY [facility] Last Admin: 09/01/16 09:12 Dose: 20 mg Heparin Sodium (Porcine) (Heparin -) 5,000 unit SQ BID [facility] Last Admin: 09/01/16 09:11 Dose: Not Given Sodium Chloride (Normal Saline -) 1,000 mls @ 75 mls/hr IV ASDIR [facility] Last Admin: 09/01/16 05:58 Dose: 75 mls/hr Methylprednisolone Sodium Succinate (Solu-Medrol -) 40 mg IVPB Q8H-IV [facility] Tamsulosin HCl (Flomax -) 0.4 mg PO DAILY@0830 [facility] Last Admin: 09/01/16 08:22 Dose: 0.4 mg Tiotropium [place] (Spiriva -) 1 puff IH DAILY [facility] Last Admin: 09/01/16 13:50 Dose: 1 puff a/p fevers resolved- on steroids day #3 ceftriaxone can d/c iv antibiotics, finish 7 days total antibiotics, can switch to po ceftin ?viral syndrome constipation -colace, miralax prn
[2016-09-01] MEDS ORDERED: POLYETHYLENE GLYCOL 3350 119 GM BTL PO PRN (15:00)
--- NOTE | 2016-09-01 15:02 | PN ---
Progress Note, Physician Chief Complaint: Events noted Appears comfortable except intermittent dyspnea History of Present Illness: Patient was seen and examined. Awake and alert. Chart was reviewed Denies chest pain or palpitations Intermittent SOB - Current Medication List Current Medications: Active Medications Acetaminophen (Tylenol -) 650 mg PO Q4H PRN PRN Reason: FEVER Albuterol Sulfate (Ventolin 0.083% Nebulizer Soln -) 1 amp NEB Q4H PRN PRN Reason: SHORT OF BREATH/WHEEZING Last Admin: 09/01/16 05:15 Dose: 1 amp Alprazolam (Xanax -) 0.25 mg PO BID [facility] Last Admin: 09/01/16 09:12 Dose: 0.25 mg Arformoterol Tartrate (Brovana (Restricted To Pulmonology/Resp) -) 1 amp NEB BID [facility] Last Admin: 09/01/16 10:40 Dose: 1 amp Aspirin (Asa -) 81 mg PO DAILY [facility] Last Admin: 09/01/16 09:12 Dose: 81 mg Atorvastatin Calcium (Lipitor -) 10 mg PO HS [facility] Last Admin: 08/31/16 21:28 Dose: 10 mg Ceftriaxone Sodium (Rocephin 1gm Ivpb (Pre-Docked)) 1 gm IVPB DAILY TA PRN Reason: Protocol Last Admin: 09/01/16 09:14 Dose: 1 gm Docusate Sodium (Colace -) 100 mg PO BID [facility] Furosemide (Lasix -) 20 mg PO DAILY [facility] Last Admin: 09/01/16 09:12 Dose: 20 mg Heparin Sodium (Porcine) (Heparin -) 5,000 unit SQ BID [facility] Last Admin: 09/01/16 09:11 Dose: Not Given Sodium Chloride (Normal Saline -) 1,000 mls @ 75 mls/hr IV ASDIR [facility] Last Admin: 09/01/16 05:58 Dose: 75 mls/hr Lactobacillus Acidophilus (Bacid -) 1 tab PO DAILY [facility] Methylprednisolone Sodium Succinate (Solu-Medrol -) 40 mg IVPB Q8H-IV [facility] Polyethylene Glycol (Miralax (For Daily Use) -) 17 gm PO PRN [facility] Tamsulosin HCl (Flomax -) 0.4 mg PO DAILY@0830 [facility] Last Admin: 09/01/16 08:22 Dose: 0.4 mg Tiotropium [place] (Spiriva -) 1 puff IH DAILY [facility] Last Admin: 09/01/16 13:50 Dose: 1 puff - Objective Vital Signs: Vital Signs Temperature 97.9 F 09/01/16 09:00 Pulse Rate 84 09/01/16 09:00 Respiratory Rate 20 09/01/16 09:00 Blood Pressure 142/72 09/01/16 09:00 O2 Sat by Pulse Oximetry (%) 99 08/31/16 21:00 Neck: Yes: Supple Cardiovascular: Yes: Regular Rate and Rhythm, S1, S2 Respiratory: Yes: Diminished Gastrointestinal: Yes: Normal Bowel Sounds, Soft. No: Tenderness Edema: No Labs: CBC, BMP 08/31/16 06:00 08/31/16 06:00 INR, PTT INR 1.08 (0.82-1.09) 08/30/16 02:33 Problem List - Problems (1) Acute respiratory distress Code(s): J80 - ACUTE RESPIRATORY DISTRESS SYNDROME (2) COPD (chronic obstructive pulmonary disease) with acute bronchitis Code(s): J44.0 - CHRONIC OBSTRUCTIVE PULMON DISEASE W ACUTE LOWER RESP INFCT (3) Acute and chronic respiratory failure Code(s): J96.20 - ACUTE AND CHR RESP FAILURE, UNSP W HYPOXIA OR HYPERCAPNIA Qualifiers: Respiratory failure complication: hypoxia and hypercapnia Qualified Code(s): J96.21 - Acute and chronic respiratory failure with hypoxia; J96.22 - Acute and chronic respiratory failure with hypercapnia (4) Arteriosclerotic heart disease (ASHD) Code(s): I25.10 - ATHSCL HEART DISEASE OF [place] CORONARY ARTERY W/O ANG PCTRS (5) Hyperlipidemia Code(s): E78.5 - HYPERLIPIDEMIA, UNSPECIFIED Qualifiers: Hyperlipidemia type: pure hypercholesterolemia Qualified Code(s): E78.00 - Pure hypercholesterolemia, unspecified; E78.0 - Pure hypercholesterolemia Assessment/Plan 1. Acute exacerbation of advanced chronic obstructive pulmonary disease on home oxygen therapy and pneumonia 2. CAD (non-obstructive coronary artery disease) angina pectoris 3. Diastolic LV dysfunction with class 0-I NYHA classification LV failure, compensated 4. HTN 5. Hypercholesterolemia 6. Palpitations, referable to sinus tachycardia with no evidence of supra- ventricular tachycardia PLAN: 1. Antibiotics coverage 2. Steroids, O2 and bronchodilators 3. If palpitations recur, additional evaluation is recommended such as event monitor 4. Treat underlying COPD Further plans are to follow Toni Mares MD
[2016-09-01] MEDS: LACTOBACILLUS ACIDOPHILUS 1 EACH TAB (FP) PO SCH (15:58)
[2016-09-01] MEDS: methylPREDNISolone NA SUCC 40 MG/1 ML VIAL IVPB SCH (18:37)
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
[2016-09-01] MEDS: DOCUSATE SODIUM 100 MG CAPSULE (FP) PO SCH (21:36)
[2016-09-01] MEDS: ATORVASTATIN CA 10 MG TABLET (FP) PO SCH (21:38)
[2016-09-02] MEDS: methylPREDNISolone NA SUCC 40 MG/1 ML VIAL IVPB SCH ×3 (01:28→18:41)
--- NOTE | 2016-09-02 07:54 | EKG ---
Test Reason : Blood Pressure : / mmHG Vent. Rate : 081 BPM Atrial Rate : 081 BPM P-R Int : 170 ms QRS Dur : 136 ms QT Int : 420 ms P-R-T Axes : 072 076 020 degrees QTc Int : 487 ms NORMAL SINUS RHYTHM RIGHT BUNDLE BRANCH BLOCK ABNORMAL ECG WHEN COMPARED WITH ECG OF 30-AUG-2016 15:24, NO SIGNIFICANT CHANGE WAS FOUND Confirmed by VISH LEWIS MD ([id number]) on 09/02/2016 7:54:23 AM Referred By: Bandar COLLINS Confirmed By:VISH LEWIS MD
--- NOTE | 2016-09-02 07:55 | EKG ---
Test Reason : Blood Pressure : / mmHG Vent. Rate : 072 BPM Atrial Rate : 072 BPM P-R Int : 174 ms QRS Dur : 134 ms QT Int : 416 ms P-R-T Axes : 065 077 007 degrees QTc Int : 455 ms NORMAL SINUS RHYTHM RIGHT BUNDLE BRANCH BLOCK ABNORMAL ECG WHEN COMPARED WITH ECG OF 30-AUG-2016 02:24, VENT. RATE HAS DECREASED BY [address] NO LONGER DEPRESSED IN ANTERIOR LEADS NONSPECIFIC T WAVE ABNORMALITY HAS REPLACED INVERTED T WAVES IN INFERIOR LEADS Confirmed by VISH LEWIS MD ([id number]) on 09/02/2016 7:54:57 AM Referred By: Bandar COLLINS Confirmed By:VISH LEWIS MD
[2016-09-02] MEDS ORDERED: PT OWN MED DRAWER 7, Y5N ONE (10:00)
[2016-09-02] MEDS: ARFORMOTEROL TARTRATE 15 MCG/2 ML VIAL NEB SCH ×2 (10:50→22:10)
[2016-09-02] MEDS: LACTOBACILLUS ACIDOPHILUS 1 EACH TAB (FP) PO SCH (11:04)
[2016-09-02] MEDS: HEPARIN NA (PORCINE) 5,000 UNITS/ML 1ML VIAL SQ SCH ×2 (11:04→21:36)
[2016-09-02] MEDS: TAMSULOSIN HCL 0.4 MG CAP.ER.24H (FP) PO SCH (11:05)
[2016-09-02] MEDS: FUROSEMIDE 20 MG TABLET (FP) PO SCH (11:05)
[2016-09-02] MEDS: ALPRAZolam 0.25 MG TABLET PO SCH ×2 (11:05→21:38)
[2016-09-02] MEDS: ASPIRIN 81 MG CHEWABLE TABLETS PO SCH (11:05)
[2016-09-02] MEDS: DOCUSATE SODIUM 100 MG CAPSULE (FP) PO SCH ×2 (11:06→21:37)
[2016-09-02] MEDS: cefTRIAXone 1 GM/50 ML BAG (PRE-DOCKED) IVPB SCH (11:06)
[2016-09-02] MEDS: TIOTROPIUM BROMIDE 18 MCG/INH (DEVICE W/ 5 CAPSULES) IH SCH (11:08)
--- NOTE | 2016-09-02 11:23 | PN ---
Progress Note, Physician Chief Complaint: had large BM feling well wants to leave [facility] otherwise he will sign himself out ama - Current Medication List Current Medications: Active Medications Acetaminophen (Tylenol -) 650 mg PO Q4H PRN PRN Reason: FEVER Albuterol Sulfate (Ventolin 0.083% Nebulizer Soln -) 1 amp NEB Q4H PRN PRN Reason: SHORT OF BREATH/WHEEZING Last Admin: 09/01/16 05:15 Dose: 1 amp Alprazolam (Xanax -) 0.25 mg PO BID [facility] Last Admin: 09/02/16 11:05 Dose: 0.25 mg Arformoterol Tartrate (Brovana (Restricted To Pulmonology/Resp) -) 1 amp NEB BID [facility] Last Admin: 09/02/16 10:50 Dose: 1 amp Aspirin (Asa -) 81 mg PO DAILY [facility] Last Admin: 09/02/16 11:05 Dose: 81 mg Atorvastatin Calcium (Lipitor -) 10 mg PO HS [facility] Last Admin: 09/01/16 21:38 Dose: 10 mg Ceftriaxone Sodium (Rocephin 1gm Ivpb (Pre-Docked)) 1 gm IVPB DAILY TA PRN Reason: Protocol Last Admin: 09/02/16 11:06 Dose: 1 gm Docusate Sodium (Colace -) 100 mg PO BID [facility] Last Admin: 09/02/16 11:06 Dose: Not Given Furosemide (Lasix -) 20 mg PO DAILY TA Last Admin: 09/02/16 11:05 Dose: 20 mg Heparin Sodium (Porcine) (Heparin -) 5,000 unit SQ BID [facility] Last Admin: 09/02/16 11:04 Dose: 5,000 unit Sodium Chloride (Normal Saline -) 1,000 mls @ 75 mls/hr IV ASDIR TA Last Admin: 09/01/16 05:58 Dose: 75 mls/hr Lactobacillus Acidophilus (Bacid -) 1 tab PO DAILY TA Last Admin: 09/02/16 11:04 Dose: 1 tab Methylprednisolone Sodium Succinate (Solu-Medrol -) 40 mg IVPB Q8H-IV TA Last Admin: 09/02/16 11:06 Dose: 40 mg Polyethylene Glycol (Miralax (For Daily Use) -) 17 gm PO DAILY PRN Last Admin: 09/01/16 18:40 Dose: 17 grams Tamsulosin HCl (Flomax -) 0.4 mg PO DAILY@0830 [facility] Last Admin: 09/02/16 11:05 Dose: 0.4 mg Tiotropium [place] (Spiriva -) 1 puff IH DAILY [facility] Last Admin: 09/02/16 11:08 Dose: 1 puff - Objective Vital Signs: Vital Signs Temperature 98.2 F 09/02/16 06:24 Pulse Rate 78 09/02/16 06:24 Respiratory Rate 20 09/02/16 06:24 Blood Pressure 137/73 09/02/16 06:24 O2 Sat by Pulse Oximetry (%) 99 08/31/16 21:00 Constitutional: Yes: Calm Cardiovascular: Yes: Regular Rate and Rhythm, S1, S2 Respiratory: Yes: Diminished, On Nasal O2 Gastrointestinal: Yes: Normal Bowel Sounds, Soft Edema: No Neurological: Yes: Alert, Oriented Labs: CBC, BMP 08/31/16 06:00 08/31/16 06:00 INR, PTT INR 1.08 (0.82-1.09) 08/30/16 02:33 Problem List - Problems (1) Acute respiratory distress Assessment/Plan: pulm on board nasal oxygen ct noted steroid taper iv abx wbc trending down Code(s): J80 - ACUTE RESPIRATORY DISTRESS SYNDROME (2) COPD (chronic obstructive pulmonary disease) Assessment/Plan: seen by vivian garces Code(s): J44.9 - CHRONIC OBSTRUCTIVE PULMONARY DISEASE, UNSPECIFIED Qualifiers : COPD type: COPD with acute lower respiratory infection Qualified Code(s ): J44.0 - Chronic obstructive pulmonary disease with acute lower respiratory infection (3) BPH (benign prostatic hypertrophy) Assessment/Plan: flomax Code(s): N40.0 - BENIGN PROSTATIC HYPERPLASIA WITHOUT LOWER URINRY TRACT SYMP Assessment/Plan appreicate neurology input antonio check carotid doppler patient has not complaint of any more of transient vision loss attack he wants to go home on otherwise he will sign himself out ama
[2016-09-02] MEDS: SODIUM CHLORIDE 1,000 ML IV SCH (12:28)
--- NOTE | 2016-09-02 17:50 | PN ---
Progress Note, Physician Chief Complaint: Feels better History of Present Illness: Patient was seen and examined. Awake and alert. Chart was reviewed Denies chest pain or palpitations Intermittent SOB improved - Current Medication List Current Medications: Active Medications Acetaminophen (Tylenol -) 650 mg PO Q4H PRN PRN Reason: FEVER Albuterol Sulfate (Ventolin 0.083% Nebulizer Soln -) 1 amp NEB Q4H PRN PRN Reason: SHORT OF BREATH/WHEEZING Last Admin: 09/01/16 05:15 Dose: 1 amp Alprazolam (Xanax -) 0.25 mg PO BID [facility] Last Admin: 09/02/16 11:05 Dose: 0.25 mg Arformoterol Tartrate (Brovana (Restricted To Pulmonology/Resp) -) 1 amp NEB BID [facility] Last Admin: 09/02/16 10:50 Dose: 1 amp Aspirin (Asa -) 81 mg PO DAILY [facility] Last Admin: 09/02/16 11:05 Dose: 81 mg Atorvastatin Calcium (Lipitor -) 10 mg PO HS [facility] Last Admin: 09/01/16 21:38 Dose: 10 mg Docusate Sodium (Colace -) 100 mg PO BID [facility] Last Admin: 09/02/16 11:06 Dose: Not Given Furosemide (Lasix -) 20 mg PO DAILY [facility] Last Admin: 09/02/16 11:05 Dose: 20 mg Heparin Sodium (Porcine) (Heparin -) 5,000 unit SQ BID [facility] Last Admin: 09/02/16 11:04 Dose: 5,000 unit Sodium Chloride (Normal Saline -) 1,000 mls @ 75 mls/hr IV ASDIR [facility] Last Admin: 09/02/16 12:28 Dose: 75 mls/hr Lactobacillus Acidophilus (Bacid -) 1 tab PO DAILY [facility] Last Admin: 09/02/16 11:04 Dose: 1 tab Methylprednisolone Sodium Succinate (Solu-Medrol -) 40 mg IVPB Q8H-IV [facility] Last Admin: 09/02/16 11:06 Dose: 40 mg Polyethylene Glycol (Miralax (For Daily Use) -) 17 gm PO DAILY PRN Last Admin: 09/01/16 18:40 Dose: 17 grams Tamsulosin HCl (Flomax -) 0.4 mg PO DAILY@0830 [facility] Last Admin: 09/02/16 11:05 Dose: 0.4 mg Tiotropium [place] (Spiriva -) 1 puff IH DAILY TA Last Admin: 09/02/16 11:08 Dose: 1 puff - Objective Vital Signs: Vital Signs Temperature 98 F 09/02/16 17:01 Pulse Rate 82 09/02/16 17:01 Respiratory Rate 20 09/02/16 17:01 Blood Pressure 165/73 09/02/16 17:01 O2 Sat by Pulse Oximetry (%) 99 08/31/16 21:00 Neck: Yes: Supple Cardiovascular: Yes: Regular Rate and Rhythm, S1, S2 Respiratory: Yes: Diminished Gastrointestinal: Yes: Normal Bowel Sounds, Soft. No: Tenderness Edema: No Problem List - Problems (1) Acute respiratory distress Code(s): J80 - ACUTE RESPIRATORY DISTRESS SYNDROME (2) COPD (chronic obstructive pulmonary disease) with acute bronchitis Code(s): J44.0 - CHRONIC OBSTRUCTIVE PULMON DISEASE W ACUTE LOWER RESP INFCT (3) Syncope Code(s): R55 - SYNCOPE AND COLLAPSE (4) Acute and chronic respiratory failure Code(s): J96.20 - ACUTE AND CHR RESP FAILURE, UNSP W HYPOXIA OR HYPERCAPNIA Qualifiers: Respiratory failure complication: hypoxia and hypercapnia Qualified Code(s): J96.21 - Acute and chronic respiratory failure with hypoxia (5) Arteriosclerotic heart disease (ASHD) Code(s): I25.10 - ATHSCL HEART DISEASE OF [place] CORONARY ARTERY W/O ANG PCTRS (6) Dizziness Code(s): R42 - DIZZINESS AND GIDDINESS (7) Hyperlipidemia Code(s): E78.5 - HYPERLIPIDEMIA, UNSPECIFIED Qualifiers: Hyperlipidemia type: pure hypercholesterolemia Qualified Code(s): E78.00 - Pure hypercholesterolemia, unspecified; E78.0 - Pure hypercholesterolemia Assessment/Plan 1. Acute exacerbation of advanced chronic obstructive pulmonary disease on home oxygen therapy and pneumonia 2. CAD (non-obstructive coronary artery disease) angina pectoris 3. Diastolic LV dysfunction with class 0-I NYHA classification LV failure, compensated 4. HTN 5. Hypercholesterolemia 6. Palpitations, referable to sinus tachycardia with no evidence of supra- ventricular tachycardia 7. Near syncope/dizziness PLAN: 1. Antibiotics coverage 2. Steroids, O2 and bronchodilators 3. If palpitations recur, additional evaluation is recommended such as event monitor 4. Treat underlying COPD 5. Neuro input noted 6. Check official reading for carotid Doppler Discharge planning Further plans are to follow Toni Mares MD
[2016-09-02] MEDS: ATORVASTATIN CA 10 MG TABLET (FP) PO SCH (21:38)
[2016-09-03] MEDS: methylPREDNISolone NA SUCC 40 MG/1 ML VIAL IVPB SCH (01:27)
[2016-09-03] MEDS: DOCUSATE SODIUM 100 MG CAPSULE (FP) PO SCH (09:00)
[2016-09-03] MEDS: FUROSEMIDE 20 MG TABLET (FP) PO SCH (09:00)
[2016-09-03] MEDS: ALPRAZolam 0.25 MG TABLET PO SCH (09:00)
[2016-09-03] MEDS: LACTOBACILLUS ACIDOPHILUS 1 EACH TAB (FP) PO SCH (09:00)
[2016-09-03] MEDS: HEPARIN NA (PORCINE) 5,000 UNITS/ML 1ML VIAL SQ SCH (09:00)
[2016-09-03] MEDS: ASPIRIN 81 MG CHEWABLE TABLETS PO SCH (09:00)
[2016-09-03] MEDS: TAMSULOSIN HCL 0.4 MG CAP.ER.24H (FP) PO SCH (09:00)
[2016-09-03] MEDS: TIOTROPIUM BROMIDE 18 MCG/INH (DEVICE W/ 5 CAPSULES) IH SCH (09:02)
--- NOTE | 2016-09-03 09:02 | DS ---
Physical Examination Vital Signs: Vital Signs Temperature 97.9 F 09/03/16 06:58 Pulse Rate 75 09/03/16 06:58 Respiratory Rate 20 09/03/16 06:58 Blood Pressure 138/74 09/03/16 06:58 O2 Sat by Pulse Oximetry (%) 96 09/02/16 21:00 Labs: CBC, BMP 08/31/16 06:00 08/31/16 06:00 Discharge Summary Reason For Visit: FEVER,ACUTE ON CHRONIC RESPIRATORY FAILURE,CHRONIC Current Active Problems Acute respiratory distress (Acute) Bilateral pneumonia (Acute) COPD (chronic obstructive pulmonary disease) with acute bronchitis (Acute) Fever (Acute) Syncope (Acute) Tachycardia (Acute) Condition: Improved - Instructions Referrals: Mony Leslie MD [Primary Care Provider] - 1 Week Disposition: HOME - Home Medications Comprehensive Discharge Medication List: Ambulatory Orders Albuterol Sulfate Inhaler - [Ventolin HFA Inhaler -] 2 inh PO Q4H 02/08/14 Arformoterol Tartrate [Brovana] 15 mcg IH BID 02/08/14 Aspirin [ASA -] 81 mg PO DAILY 02/08/14 Furosemide [Lasix -] 20 mg PO PRN 02/08/14 Tamsulosin HCl [Flomax -] 0.4 mg PO DAILY 02/08/14 Tiotropium [place] [Spiriva] 1 inh PO DAILY 02/08/14 Beclomethasone Dipropionate [Qvar] 8.7 gm IH DAILY 01/09/16 Alprazolam [Xanax] 0.25 mg PO BID #20 tablet MDD 2 01/18/16 Atorvastatin Ca [Lipitor] 10 mg PO DAILY 08/30/16 Cefuroxime Axetil [Ceftin -] 500 mg PO Q12H #14 tablet 09/03/16 Polyethylene Glycol 3350 [Miralax 119 gm Btl -] 17 gm PO DAILY PRN #1 bottle 10/15 Prednisone 40 mg PO DAILY #100 tablet 09/03/16
[2016-09-03] MEDS ORDERED: predniSONE 20 MG TABLET (UD) PO SCH (10:00)
[2016-09-03 12:04] VITALS: BP 134/66; PULSE 72; TEMP 97.6
== END 2016-09-03 12:35 | disposition home or self-care (01) | DRG 191 ==
LOC: JER 02:12 → JERBED 03:19 → UNDOADMIN 03:19 → JERBED 03:22 → UNDOADMIN 03:27 → J8W 22:00
PROVIDERS: ADMIT Family Medicine; ATTEND Family Medicine
DX: J44.0 Chronic obstructive pulmonary disease with (acute) lower respiratory infection (principal); J80 Acute respiratory distress syndrome; J20.9 Acute bronchitis, unspecified; J44.1 Chronic obstructive pulmonary disease with (acute) exacerbation; R55 Syncope and collapse; R00.0 Tachycardia, unspecified; R42 Dizziness and giddiness; E78.5 Hyperlipidemia, unspecified; I25.119 Atherosclerotic heart disease of native coronary artery with unspecified angina pectoris; B34.9 Viral infection, unspecified; K59.00 Constipation, unspecified; N40.0 Benign prostatic hyperplasia without lower urinary tract symptoms
CPT/HCPCS: 36415; 70450-TC; 71010-TC; 71250-TC; 80053; 81003; 81015; 82550; 83605; 83880; 84439; 84443; 84484; 85025; 85610; 87040; 87086; 87254; 87804; 93005; 93010; 93880-TC; 94640; 99285-25; J1644

== ENCOUNTER 2017-03-07 19:45 | Emergency (ER) | payer BC, OTHER ==
[2017-03-07 20:03] VITALS: TEMP 98.3; BMI 21.4
--- NOTE | 2017-03-07 21:00 | PDOC ---
History of Present Illness - General Chief Complaint: Nasal Bleeding Stated Complaint: NOSE BLEED Time Seen by Provider: 03/07/17 20:58 - History of Present Illness Initial Comments: 66 year old male with a significant past medical history of COPD, CHF, LA x2, hyperlipidemia, and pulmonary hypertension, on a lung transplant program for 8 years presenting with nose bleed. He is on oxygen at home and had frequent nose bleeds after digital nasal trauma. He has been using some sesame oil that has helped with the intranasal scabbing but engaged digital trauma again today which caused a prolonged period of bleeding that lasted approximately 1.5 hours. He denies any lightheadedness, nausea, palpitations, or other symptoms. He took his aspirin 81 this morning. 03/07/17 21:17 Past History - Past Medical History Allergies/Adverse Reactions: Allergies Allergy/AdvReac Type Severity Reaction Status Date / Time moxifloxacin HCl Allergy Severe Verified 03/07/17 19:59 [From Avelox] aclidinium bromide Allergy Verified 03/07/17 19:59 [From Tudorza Pressair] shellfish derived Allergy Verified 03/07/17 19:59 Home Medications: Ambulatory Orders Albuterol Sulfate Inhaler - [Ventolin HFA Inhaler -] 2 inh PO Q4H 02/08/14 Arformoterol Tartrate [Brovana] 15 mcg IH BID 02/08/14 Aspirin [ASA -] 81 mg PO DAILY 02/08/14 Furosemide [Lasix -] 20 mg PO PRN 02/08/14 Tamsulosin HCl [Flomax -] 0.4 mg PO DAILY 02/08/14 Tiotropium [place] [Spiriva] 1 inh PO DAILY 02/08/14 Beclomethasone Dipropionate [Qvar] 8.7 gm IH DAILY 01/09/16 Alprazolam [Xanax] 0.25 mg PO BID #20 tablet MDD 2 01/18/16 Atorvastatin Ca [Lipitor] 10 mg PO DAILY 08/30/16 Polyethylene Glycol 3350 [Miralax 119 gm Btl -] 17 gm PO DAILY PRN #1 bottle 10/15 Prednisone 40 mg PO DAILY #100 tablet 09/03/16 Anemia: No Asthma: No Cancer: No Cardiac Disorders: Yes (LA, CHF) CVA: No COPD: Yes (o2 at home) CHF: Yes Dementia: No Diabetes: No GI Disorders: Yes (umbilical hernia x 2) Disorders: Yes (UTI) HTN: Yes (FLUCTUATE) Hypercholesterolemia: Yes Kidney Stones: Yes Seizures: No Thyroid Disease: No - Surgical History Abdominal Surgery: No Appendectomy: No Cardiac Surgery: No Cholecystectomy: No Lung Surgery: No Neurologic Surgery: No Orthopedic Surgery: No - Suicide/Smoking/Psychosocial Hx Smoking Status: No Smoking History: Never smoked Have you smoked in the past 12 months: No Number of Cigarettes Smoked Daily: 40 If you are a former smoker, when did you quit?: 2004 Information on smoking cessation initiated: No Hx Alcohol Use: No Drug/Substance Use Hx: No Substance Use Type: None Hx Substance Use Treatment: No Review of Systems - Review of Systems Constitutional: No: Chills, Diaphoresis, Fever HEENTM: No: Eye Pain, Blurred Vision Respiratory: No: Cough, Orthopnea, Shortness of Breath Cardiac (ROS): No: Chest Pain, Edema, Irregular Heart Rate ABD/GI: No: Diarrhea, Nausea, Vomiting : No: Burning Integumentary: No: Change in Color Neurological: No: Headache, Numbness, Paresthesia Hematologic/Lymphatic: No: Anemia, Easy Bleeding *Physical Exam - Vital Signs Last Vital Signs Temp Pulse Resp BP Pulse Ox 98.3 F 96 H 20 125/67 97 03/07/17 20:00 03/07/17 20:00 03/07/17 20:00 03/07/17 20:00 03/07/17 20:00 - Physical Exam General Appearance: Yes: Nourished, Appropriately Dressed, Thin. No: Apparent Distress HEENT: positive: EOMI, EUGENE, Normal Voice, Pharynx Normal. negative: Normal ENT Inspection (Dried blood in the nares with no active sign of bleeding.), Pharyngeal Erythema Neck: positive: Trachea midline, Normal Thyroid, Supple. negative: Tender, Rigid Respiratory/Chest: positive: Lungs Clear, Other (Delayed expiratory phae). negative: Chest Tender, Normal Breath Sounds, Respiratory Distress, Accessory Muscle Use Cardiovascular: positive: Regular Rhythm, Regular Rate, S1, S2. negative: Edema , Murmur Gastrointestinal/Abdominal: positive: Normal Bowel Sounds, Flat, Soft. negative : Tender Musculoskeletal: positive: Normal Inspection. negative: CVA Tenderness Extremity: positive: Normal Inspection, Normal Range of Motion. negative: Tender Integumentary: positive: Normal Color, Dry, Warm Neurologic: positive: Fully Oriented, Alert, Normal Mood/Affect, Motor Strength 10/03 ED Treatment Course - LABORATORY CBC & Chemistry Diagram: 03/07/17 22:20 03/07/17 22:20 Medical Decision Making - Medical Decision Making 66 year old male with COPD, CHF, LA x2, hyperlipidemia, and pulmonary hypertension, on a lung transplant program for 8 years presenting with nasal bleed without current active bleed. It has resolved since without intervention in the ED. Patient tachycardic in triage to 94 with repeat at 104 so will get H& H, give 500 mL NS and repeat vitals. 03/07/17 22:00 Repeat pulse 84 and HgB 11.7 down from 8.6 6 months prior so he has borderline normocytic anemia. No need to replete currently and bleedign stable so safe to DC home. 03/07/17 23:21 *DC/Admit/Observation/Transfer Diagnosis at time of Disposition: Nasal hemorrhage - Discharge Dispostion Disposition: HOME Condition at time of disposition: Improved Admit: No - Referrals Referrals: Mony Leslie MD [Primary Care Provider] - - Patient Instructions Printed Discharge Instructions: DI for Nosebleed Additional Instructions: Please do not pick your nose. Please use the oil you have been using or warm water to clean your nose. Please return to the ED if you have more nose bleeding that you cannot control with tilting your head forward and pinching your nose.
[2017-03-07 21:51] VITALS: BP 121/99; PULSE 104
[2017-03-07] MEDS ORDERED: SODIUM CHLORIDE 0.9% 1000 ML INFUS.BAG IV ONE (21:59)
[2017-03-07 22:55] LABS: BASOPHIL 0.3 % (0-2.0); EOSINOPHIL 2.9 % (0-4.5); MCH 29.6 pg (25.7-33.7); MCHC 32.7 g/dl (32.0-35.9); MEAN CELL VOLUME 90.4 fl (80-96); NEUTROPHILS 77.1 % (42.8-82.8); PLATELET COUNT 158 K/MM3 (134-434); WHITE BLOOD COUNT 8.6 K/mm3 (4.0-10.0)
[2017-03-07 23:13] LABS: ALBUMIN 3.5 g/dl (3.4-5.0); ALK PHOS 74 U/L (45-117); ANION GAP 8 (8-16); BILIRUBIN,TOTAL 0.3 mg/dL (0.2-1.0); CALCIUM 8.3 mg/dL (8.5-10.1); CO2 33 mmol/L (21-32); CREATININE 0.7 mg/dL (0.7-1.3); GLUCOSE,RANDOM 119 mg/dL (74-106); SGOT/AST 15 U/L (15-37); SGPT/ALT 20 U/L (12-78); TOT PROT 6.7 g/dl (6.4-8.2)
--- NOTE | 2017-03-07 23:38 | PDOC ---
Attending Attestation - Resident Resident Name: [email or web address] - ED Attending Attestation I have performed the following: I have examined & evaluated the patient, The case was reviewed & discussed with the resident, I agree w/resident's findings & plan, Exceptions are as noted - HPI HPI: 03/07/17 23:38 66y M hx of COPD, chf, CAD s/p HI, HL, pulm htn, presents with epistaxis. Pt states his nose typically drys out and he pics at it resulting in bleeding. He notes the bleeding ocurred for approx 1.5 hours before stopping. denies any anemic sypmtoms. pt on baby ASA. no bleeding currently - Physicial Exam PE: 03/07/17 23:39 GENERAL: The patient is awake, alert, and fully oriented, Nontoxic - in no acute distress ENT: Normal voice, Moist mucous membranes, dried blood in nares, no active bleeding, no bleeding in posterior pharynx SKIN: Warm, Dry, normal turgor, - Medical Decision Making 03/07/17 23:39 epistaxis, no current bleeding pt was mildly tachycardic and we obtained blood due to his tachycardia hbg about 1pt lower than previous,however no currentl bleeding will dc with pmd fu supportive care at home return precautions were discussed if recurrent bleeding fu with ENT I discussed the physical exam findings, ancillary test results and final diagnoses with the patient. I answered all of the patient's questions. The patient was satisfied with the care received and felt comfortable with the discharge plan and treatment plan. The patient will call their primary care physician within 24 hours to arrange follow-up and will return to the Emergency Department with any new, persistent or worsening symptoms.
== END 2017-03-07 23:37 | disposition home or self-care (01) ==
LOC: JER 19:45
PROC: 3E0337Z Introduction of Electrolytic and Water Balance Substance into Peripheral Vein, Percutaneous Approach (ICD-10-PCS; principal; 2017-03-07)
DX: R04.0 Epistaxis (principal); J44.9 Chronic obstructive pulmonary disease, unspecified; I25.2 Old myocardial infarction; E78.5 Hyperlipidemia, unspecified; I27.20 Pulmonary hypertension, unspecified; I50.9 Heart failure, unspecified; Z87.891 Personal history of nicotine dependence
CPT/HCPCS: 36415; 80053; 85025; 86850; 86900; 86901; 99283-25

== ENCOUNTER 2017-03-08 04:02 | Emergency (ER) | payer BC ==
--- NOTE | 2017-03-08 04:06 | PDOC ---
History of Present Illness <Js Rojo - Last Filed: 03/08/17 05:58> - History of Present Illness Initial Comments: 66 year old male with complicated medical history presenting with repeat episode of nosebleed. He was sleeping in his bed after he returned home and then woke up with some nasal discomfort and had spots of blood on his shirt. Denies LOC, lightheadedness, palpitations, or other symptoms. 03/08/17 07:23 <Everett Christie - Last Filed: 03/08/17 07:30> - General Stated Complaint: NOSE BLEED Time Seen by Provider: 03/08/17 04:06 Past History <Js Rojo - Last Filed: 03/08/17 05:58> - Past Medical History Anemia: No Asthma: No Cancer: No Cardiac Disorders: Yes ([place], CHF) CVA: No COPD: Yes (o2 at home) CHF: Yes Dementia: No Diabetes: No GI Disorders: Yes (umbilical hernia x 2) Disorders: Yes (UTI) HTN: Yes (FLUCTUATE) Hypercholesterolemia: Yes Kidney Stones: Yes Seizures: No Thyroid Disease: No - Surgical History Abdominal Surgery: No Appendectomy: No Cardiac Surgery: No Cholecystectomy: No Lung Surgery: No Neurologic Surgery: No Orthopedic Surgery: No - Suicide/Smoking/Psychosocial Hx Smoking Status: No Smoking History: Never smoked Have you smoked in the past 12 months: No Number of Cigarettes Smoked Daily: 40 If you are a former smoker, when did you quit?: 2004 Hx Alcohol Use: No Drug/Substance Use Hx: No Substance Use Type: None Hx Substance Use Treatment: No <Everett Christie - Last Filed: 03/08/17 07:30> - Past Medical History Allergies/Adverse Reactions: Allergies Allergy/AdvReac Type Severity Reaction Status Date / Time moxifloxacin HCl Allergy Severe Verified 03/08/17 04:54 [From Avelox] aclidinium bromide Allergy Verified 03/08/17 04:54 [From Tudorza Pressair] shellfish derived Allergy Verified 03/08/17 04:54 Home Medications: Ambulatory Orders Albuterol Sulfate Inhaler - [Ventolin HFA Inhaler -] 2 inh PO Q4H 02/08/14 Arformoterol Tartrate [Brovana] 15 mcg IH BID 02/08/14 Aspirin [ASA -] 81 mg PO DAILY 02/08/14 Furosemide [Lasix -] 20 mg PO PRN 02/08/14 Tamsulosin HCl [Flomax -] 0.4 mg PO DAILY 02/08/14 Tiotropium [place] [Spiriva] 1 inh PO DAILY 02/08/14 Beclomethasone Dipropionate [Qvar] 8.7 gm IH DAILY 01/09/16 Alprazolam [Xanax] 0.25 mg PO BID #20 tablet MDD 2 01/18/16 Atorvastatin Ca [Lipitor] 10 mg PO DAILY 08/30/16 Polyethylene Glycol 3350 [Miralax 119 gm Btl -] 17 gm PO DAILY PRN #1 bottle 10/15 Prednisone 40 mg PO DAILY #100 tablet 09/03/16 Review of Systems - Review of Systems Constitutional: No: Chills, Diaphoresis, Fever, Loss of Appetite Respiratory: No: Cough, Orthopnea, Shortness of Breath Cardiac (ROS): No: See HPI, Chest Pain, Edema, Irregular Heart Rate ABD/GI: No: Constipated, Diarrhea, Nausea, Vomiting : No: Burning, Dysuria, Discharge Integumentary: No: Bruising, Change in Color, Lesions <Everett Christie - Last Filed: 03/08/17 07:30> *Physical Exam - Vital Signs Last Vital Signs Temp Pulse Resp BP Pulse Ox 98 H 14 111/54 98 03/08/17 04:55 03/08/17 04:55 03/08/17 04:55 03/08/17 04:55 <Js Rojo - Last Filed: 03/08/17 05:58> - Physical Exam General Appearance: Yes: Nourished, Appropriately Dressed. No: Apparent Distress HEENT: positive: EOMI, EUGENE. negative: Normal ENT Inspection (Dried blood in the nares bilaterally), Normal Voice, Pharynx Normal (Blood clot hanging in posterior oropharynx) Neck: positive: Trachea midline, Normal Thyroid, Supple. negative: Tender, Rigid Respiratory/Chest: positive: Lungs Clear, Normal Breath Sounds. negative: Chest Tender, Respiratory Distress, Accessory Muscle Use Cardiovascular: positive: Regular Rhythm, Regular Rate, S1, S2, JVD. negative: Murmur Gastrointestinal/Abdominal: positive: Normal Bowel Sounds, Tender, Flat, Soft Musculoskeletal: positive: Normal Inspection Extremity: positive: Normal Capillary Refill, Normal Inspection Integumentary: positive: Normal Color, Dry, Warm Neurologic: positive: Fully Oriented, Alert, Normal Mood/Affect, Motor Strength 5/5 <Everett Christie - Last Filed: 03/08/17 07:30> Medical Decision Making - Medical Decision Making 66 year old male with bounce back for nose bleed. Large clot expressed from left nostril which provided great relief to the patient. Vaseline applied to inside of nares with cotton tipped applicator. No active bleeding noticed and patient feeling much improved. Discharged home with follow up instructions. 03/08/17 07:28 <Everett Christie - Last Filed: 03/08/17 07:30> *DC/Admit/Observation/Transfer - Discharge Dispostion Admit: No <Js Rojo - Last Filed: 03/08/17 05:58> <Everett Christie - Last Filed: 03/08/17 07:30> Diagnosis at time of Disposition: Epistaxis, recurrent - Discharge Dispostion Disposition: HOME Condition at time of disposition: Improved - Referrals Referrals: Mony Leslie MD [Primary Care Provider] - Peter Reid MD [Staff Physician] - - Patient Instructions Printed Discharge Instructions: DI for Nosebleed Additional Instructions: Return to the emergency department immediately with ANY new, persistent or worsening symptoms. Avoid nose blowing or picking your nose. Try to use Humidifier or saline. If you have recurrent nose bleeding, please follow up with an ear nose throat doctor for further evaluation. You MUST call and follow up with your doctor tomorrow for further evaluation of your symptoms. Results were discussed with you. Please make sure your doctor reviews the results of your emergency evaluation. Print Language: ERITREAN
[2017-03-08 04:57] VITALS: BP 111/54; PULSE 98; BMI 21.4
--- NOTE | 2017-03-08 05:06 | PDOC ---
Attending Attestation - Resident Resident Name: Everett Christie - ED Attending Attestation I have performed the following: I have examined & evaluated the patient, The case was reviewed & discussed with the resident, I agree w/resident's findings & plan, Exceptions are as noted - HPI HPI: 03/08/17 05:38 66y M here previously for epistaxis, returns for recurrent epistaxis. pt states he was hme sleeping and woke up and noticed he was having blood everywhere. pt denies any signs of anemia, no active bleeding currently. large clot noted in L nare. will dc with pmd fu will put some bacitrcin in his nares will hav ept fu with ENT - Physicial Exam PE: 03/08/17 06:01 see above - Medical Decision Making 03/08/17 06:02 see above 03/08/17 06:02 no further bleeding will dc with pmd and ENT fu I discussed the physical exam findings, ancillary test results and final diagnoses with the patient. I answered all of the patient's questions. The patient was satisfied with the care received and felt comfortable with the discharge plan and treatment plan. The patient will call their primary care physician within 24 hours to arrange follow-up and will return to the Emergency Department with any new, persistent or worsening symptoms.
== END 2017-03-08 06:45 | disposition home or self-care (01) ==
LOC: JER 04:02
DX: R04.0 Epistaxis (principal); I10 Essential (primary) hypertension; I50.9 Heart failure, unspecified; J44.9 Chronic obstructive pulmonary disease, unspecified; E78.00 Pure hypercholesterolemia, unspecified; Z87.442 Personal history of urinary calculi; Z99.81 Dependence on supplemental oxygen; Z79.82 Long term (current) use of aspirin; Z88.0 Allergy status to penicillin; Z91.013 Allergy to seafood
CPT/HCPCS: 99281-25

== ENCOUNTER 2017-04-13 06:01 | Emergency (ER) | payer BC, OTHER ==
--- NOTE | 2017-04-13 06:20 | PDOC ---
History of Present Illness - General Stated Complaint: EPISTAXIS Time Seen by Provider: 04/13/17 06:10 History Source: Patient, EMS Exam Limitations: No Limitations - History of Present Illness Initial Comments: This is a 66 YOM with h/o COPD on home O2 via NC at all times, and occasional nosebleeds (last was cauterized here in the ED recently) who presents with right sided nosebleed for the past 2 hours since hitting his nose on a door accidentally. He notes that the blood was mostly coming out of the right nostril , and he additionally is nauseated from the amount of blood he has swallowed. He denies any headache, dizziness, vision changes, new SOB, chest pain, palpitations, or other symptoms. Past History - Past Medical History Allergies/Adverse Reactions: Allergies Allergy/AdvReac Type Severity Reaction Status Date / Time moxifloxacin HCl Allergy Severe Verified 04/13/17 06:16 [From Avelox] aclidinium bromide Allergy Verified 04/13/17 06:16 [From Tudorza Pressair] shellfish derived Allergy Verified 04/13/17 06:16 Home Medications: Ambulatory Orders Albuterol Sulfate Inhaler - [Ventolin HFA Inhaler -] 2 inh PO Q4H 02/08/14 Arformoterol Tartrate [Brovana] 15 mcg IH BID 02/08/14 Aspirin [ASA -] 81 mg PO DAILY 02/08/14 Furosemide [Lasix -] 20 mg PO PRN 02/08/14 Tamsulosin HCl [Flomax -] 0.4 mg PO DAILY 02/08/14 Tiotropium [place] [Spiriva] 1 inh PO DAILY 02/08/14 Beclomethasone Dipropionate [Qvar] 8.7 gm IH DAILY 01/09/16 Alprazolam [Xanax] 0.25 mg PO BID #20 tablet MDD 2 01/18/16 Atorvastatin Ca [Lipitor] 10 mg PO DAILY 08/30/16 Polyethylene Glycol 3350 [Miralax 119 gm Btl -] 17 gm PO DAILY PRN #1 bottle 10/15 Prednisone 40 mg PO DAILY #100 tablet 09/03/16 Anemia: No Asthma: No Cancer: No Cardiac Disorders: Yes (SC, CHF) CVA: No COPD: Yes (o2 at home) CHF: Yes Dementia: No Diabetes: No GI Disorders: Yes (umbilical hernia x 2) Disorders: Yes (UTI) HTN: Yes (FLUCTUATE) Hypercholesterolemia: Yes Kidney Stones: Yes Seizures: No Thyroid Disease: No - Surgical History Abdominal Surgery: No Appendectomy: No Cardiac Surgery: No Cholecystectomy: No Lung Surgery: No Neurologic Surgery: No Orthopedic Surgery: No - Suicide/Smoking/Psychosocial Hx Smoking Status: No Smoking History: Never smoked Have you smoked in the past 12 months: No Number of Cigarettes Smoked Daily: 40 If you are a former smoker, when did you quit?: 2004 Hx Alcohol Use: No Drug/Substance Use Hx: No Substance Use Type: None Hx Substance Use Treatment: No Review of Systems - Review of Systems Constitutional: No: Chills, Fever, Unexplained wgt Loss HEENTM: Yes: Nose Bleeding. No: Nose Congestion, Throat Pain Respiratory: Yes: Shortness of Breath (chronic unchanged). No: Cough Cardiac (ROS): No: Chest Pain, Palpitations ABD/GI: Yes: Nausea. No: Constipated, Diarrhea, Vomiting : No: Burning, Dysuria Musculoskeletal: No: Back Pain, Neck Pain Integumentary: No: Bruising, Rash Neurological: No: Headache, Numbness, Tingling, Weakness, Dizziness Endocrine: No: Unexplained Weight Gain, Unexplained Weight Loss *Physical Exam - Physical Exam General Appearance: Yes: Nourished, Appropriately Dressed, Other (pleasant adult male who appears older than stated age and who has dried blood on his alexandre and in nostrils, answering appropriately, in good humor, brother at bedside). No: Apparent Distress HEENT: positive: EOMI, EUGENE, Normal Voice, Hearing Grossly Normal, Other (dried blood in both nares (right more than left) without any obvious active bleeding, posterior oropharynx with blood clot dangling apparently from posterior nasopharynx, patient occasionally coughing while leaning over sink). negative: Scleral Icterus (R), Scleral Icterus (L) Neck: positive: Trachea midline, Supple. negative: Tender, Rigid Respiratory/Chest: positive: Lungs Clear, Normal Breath Sounds. negative: Respiratory Distress, Crackles, Rhonchi, Stridor, Wheezing Cardiovascular: positive: Regular Rhythm, Regular Rate. negative: Murmur Gastrointestinal/Abdominal: positive: Normal Bowel Sounds, Soft. negative: Tender, Organomegaly, Pulsatile Mass, Guarding Musculoskeletal: positive: Normal Inspection. negative: Decreased Range of Motion, Vertebral Tenderness Extremity: positive: Normal Capillary Refill, Normal Inspection, Normal Range of Motion. negative: Tender, Cyanosis Integumentary: positive: Normal Color, Dry, Warm. negative: Erythema, Rash, Bruising Neurologic: positive: rn integrity II-XII NML intact, Fully Oriented, Alert, Normal Mood/ Affect, Normal Response, Motor Strength 5/5 Medical Decision Making - Medical Decision Making 66 YOM with COPD on home O2, ASA use, and prior nosebleeds requiring cautery. PW nosebleed seemingly right nare, a bit of nausea from swallowing blood. Hemostatic anteriorly on arrival, clot visualized in posterior oropharynx but no active bleeding. Exam otherwise nothing acute, BP wnl, not tachycardic, 98% on his normal 3 LPM. 8 mg Zofran SL given. Afrin sprayed in bilateral nares. Afrin-soaked gauze placed in right nare at 0700 to be removed gently at 0730. Patient's care signed out to Dr. Cota at 0700. *DC/Admit/Observation/Transfer Diagnosis at time of Disposition: Epistaxis - Referrals - Patient Instructions - Post Discharge Activity
[2017-04-13] MEDS ORDERED: OXYMETAZOLINE 0.05% NASAL SOLUTION 15 ML BOTTLE NS ONE (06:28)
[2017-04-13] MEDS ORDERED: ONDANSETRON *ODT* 4 MG TABLET SL ONE (06:48)
[2017-04-13 06:50] VITALS: BP 134/67; PULSE 102; TEMP 97.2; BMI 26.6
--- NOTE | 2017-04-13 06:51 | PDOC ---
Attending Attestation - Resident Resident Name: Pamela Mcmillan - ED Attending Attestation I have performed the following: I have examined & evaluated the patient, The case was reviewed & discussed with the resident, I agree w/resident's findings & plan, Exceptions are as noted - HPI HPI: 04/13/17 06:47 66-year-old male with history of COPD O2 dependent also on aspirin with history of recurring epistaxis and multiple visits for epistaxis in the past presents now with epistaxis after nasal injury, accidentally walked into a door. Bleeding predominantly from right naris, applied ice and pressure which finally seemed to resolve the bleeding, presents for evaluation. - Physicial Exam PE: 04/13/17 06:49 Heart rate 102 on arrival, improves on our exam Alert, O2 in place, dry blood to face otherwise no active bleeding Dry blood to the right more than left naris, clotted blood in the oropharync which was cleared, no active oozing or bleeding no respiratory or airway distress - Medical Decision Making 04/13/17 06:50 Patient seen and evaluated with the resident. I agree with the overall evaluation, assessment, and management with the following summary of visit: 66-year-old male with history of recurring epistaxis presents with traumatic epistaxis, predominantly from the right side. No airway or respiratory issues, the bleeding seems to have resolved, he is hemodynamically stable. Afrin spray and Afrin soaked gauze with pressure Monitor for recurring bleeding and any need for packing Patient was signed out to the oncoming ED physician to reassess the patient and dispo accordingly.
[2017-04-13] MEDS ORDERED: ONDANSETRON *ODT* 4 MG TABLET ONE (06:59)
--- NOTE | 2017-04-13 07:49 | PDOC ---
*Physical Exam - Vital Signs Last Vital Signs Temp Pulse Resp BP Pulse Ox 97.2 F L 102 H 18 134/67 99 04/13/17 06:16 04/13/17 06:16 04/13/17 06:16 04/13/17 06:16 04/13/17 06:16 - Physical Exam General Appearance: Yes: Appropriately Dressed. No: Apparent Distress HEENT: positive: Other (dried blood visualized in both nares and the posterior oropharynx. no active bleeding, no hematoma). negative: Tonsillar Exudate, Tonsillar Erythema Neck: positive: Trachea midline Musculoskeletal: positive: Normal Inspection Extremity: positive: Normal Inspection Integumentary: positive: Normal Color, Dry, Warm. negative: Diaphoresis Neurologic: positive: Fully Oriented, Alert, Normal Mood/Affect, Normal Response ED Treatment Course - Medications Given in the ED: ED Medications Discontinued Medications Generic Name Dose Route Start Last Admin Trade Name Freq PRN Reason Stop Dose Admin Ondansetron HCl 8 mg 04/13/17 06:48 04/13/17 07:01 Zofran Odt - SL 04/13/17 06:49 8 mg ONCE ONE Administration Oxymetazoline HCl 1 spray 04/13/17 06:28 04/13/17 07:00 Afrin - NS 04/13/17 06:29 1 spray ONCE ONE Administration Medical Decision Making - Medical Decision Making 04/13/17 07:[address] Mcmillan. The patient is a 66 yo m w/ PMH COPPD on home 02 who comes into the ED c/o right sided epistaxsis after accidentally hitting himself with a door. Patient currently hemodynamically stable and hemostasis attained. Removed right sided afrin soaked gauze without any major clots or bleeding seen. Will reassess and dispo accordingly. 04/13/17 08:22 on reassessment, the patient has no active bleeding. Clots visualized in the posterior oropharynx with no oozing seen. Patieht is astable for discharge home. return parameters discussed. *DC/Admit/Observation/Transfer Diagnosis at time of Disposition: Epistaxis - Discharge Dispostion Disposition: HOME Condition at time of disposition: Improved Admit: No - Referrals - Patient Instructions Printed Discharge Instructions: DI for Nosebleed Additional Instructions: You should follow up with your primary care physician within 1-2 days of going home. Please avoid blowing your nose, picking your nose or sticking foreign bodies into the nose as this can cause the bleeding to start again. If your nose begins to bleed, you can pinch just below the bridge of the nose and use ice to try to stop the bleeding. If your nosebleed comes back and cannot be controlled with pressure, if your nose begins to bleed a lot, if you develop pain in the nose or nostrils, if you develop chest pain or shortness of breath or if any of your symptoms get worse, please call your doctor or return to the emergency department. - Post Discharge Activity
== END 2017-04-13 08:38 | disposition home or self-care (01) ==
LOC: JER 06:01
PROC: 2Y41X5Z Packing of Nasal Region using Packing Material (ICD-10-PCS; principal; 2017-04-13)
PROC: 2Y41X5Z Packing of Nasal Region using Packing Material (ICD-10-PCS; 2017-04-13)
DX: R04.0 Epistaxis (principal); I10 Essential (primary) hypertension; I50.9 Heart failure, unspecified; I25.2 Old myocardial infarction; E78.00 Pure hypercholesterolemia, unspecified; J44.9 Chronic obstructive pulmonary disease, unspecified; Z99.81 Dependence on supplemental oxygen; Z87.442 Personal history of urinary calculi; Z87.440 Personal history of urinary (tract) infections; Z79.82 Long term (current) use of aspirin
CPT/HCPCS: 99281-25

== ENCOUNTER 2017-04-21 06:39 | Observation (INO) | payer BC, OTHER ==
[2017-04-21 06:56] VITALS: BMI 20.9
[2017-04-21] MEDS ORDERED: OXYMETAZOLINE 0.05% NASAL SOLUTION 15 ML BOTTLE NS ONE (07:46)
[2017-04-21] MEDS ORDERED: FAMOTIDINE 20 MG/50 ML IVPB 20 MG/50 ML MG IVPB ONE (08:06)
[2017-04-21] MEDS ORDERED: SODIUM CHLORIDE 0.9% 500 ML INFUS.BAG IV ONE (08:06)
[2017-04-21] MEDS ORDERED: ONDANSETRON 4 MG/2 ML VIAL IVPUSH ONE (08:06)
--- NOTE | 2017-04-21 08:06 | PDOC ---
Attending Attestation - Resident Resident Name: Humberto Sprague - ED Attending Attestation I have performed the following: I have examined & evaluated the patient, The case was reviewed & discussed with the resident, I agree w/resident's findings & plan, Exceptions are as noted - HPI HPI: 04/21/17 08:06 66-year-old male with history of COPD O2 dependent also on daily baby aspirin with history of recurring epistaxis and multiple visits for epistaxis p/w epistaxis. Pt reports that his home O2 causes his nose to dry out and he often develops crusting in his nose which forces him to pick at it. He reports about 6 hours ago he was attempting to remove some of the crust in his nose when he accidentally cut himself and began to bleed from his L nostril. He reports persistent bleeding since then despite pressure with some clots. He reports that this often occurs in the setting of his nose being dry from his home O2 and that intermittently uses sesame oil to help lubricate but he hasn't used that in the last few days. Denies any recent fevers, chills, chest pain, shortness of breath, abdominal pain. He reports nausea now due to the blood in the back of his oropharynx. He denies any headaches, weakness, numbness. His who is at the bedside reports that he appears pale. - Physicial Exam PE: 04/21/17 08:10 GENERAL: Awake, alert, and fully oriented, holding pressure onto nose. Appears pale. HEAD: No signs of trauma EYES: PERRLA, EOMI, sclera anicteric, conjunctiva clear ENT: Auricles normal inspection, hearing grossly normal, moist mucosa. OP with some blood posteriorly, but not actively oozing down. Nose: bleeding visualized from anterior L nostril. NECK: Normal ROM, supple, no lymphadenopathy, JVD, or masses LUNGS: Breath sounds equal, clear to auscultation bilaterally. No wheezes, and no crackles HEART: Regular rate and rhythm, normal S1 and S2, no murmurs, rubs or gallops ABDOMEN: Soft, nontender, normoactive bowel sounds. No guarding, no rebound. No masses EXTREMITIES: Normal range of motion, no edema. No clubbing or cyanosis. No cords, erythema, or tenderness NEUROLOGICAL: Normal speech, cranial nerves intact, negative pronator drift, 5/ 5 strength in all 4 extremities, normal sensation to light touch in all 4 extremities, normal cerebellar exam, normal gait, normal reflexes and tone SKIN: Warm, Dry, normal turgor, no rashes or lesions noted. - Medical Decision Making 04/21/17 08:13 66-year-old male presents with epistaxis secondary to traumatic nasal picking. Will attempt Afrin and hold pressure and will consider a Rhino Rocket if the bleeding persists. Given the patient's pale appearance will check a CBC and likely a 4 hour repeat CBC to ensure the patient has not lost too much blood. 04/21/17 14:29 Hemoglobin initially 8.9. Repeat 4 hours CBC with hemoglobin of 8. HGb on previous visits at 10 to 11. On reevaluation, patient reports that he feels well at rest however reports and dizziness when he stands, and he appears pale. When ambulating the patient's heart rate increases to the 116. Upon discussion with Dr. Ely who is covering for Dr. Leslie, we decided to transfuse 1 unit and admit the patient to observation overnight. Plan discussed with patient who is in agreement. Case discussed in detail with admitting physician including history, physical exam and ancillary studies. Admitting physician has assumed care for the patient, will follow all pending diagnostics and will complete the evaluation and treatment. Discharge Disposition - Diagnosis Anemia, Epistaxis, recurrent - Discharge Dispostion Condition at time of disposition: Stable Last Admission D/C Date: 09/03/16 Admit: Yes - Referrals Referrals: Mony Leslie MD [Primary Care Provider] - - Patient Instructions - Post Discharge Activity
--- NOTE | 2017-04-21 08:06 | PDOC ---
History of Present Illness - General Chief Complaint: Nasal Bleeding Stated Complaint: NOSEBLEED Time Seen by Provider: 04/21/17 07:23 - History of Present Illness Initial Comments: 04/21/17 08:05 66-year-old male with history of COPD O2 dependent also on aspirin with history of recurring epistaxis and multiple visits for epistaxis Past History - Past Medical History Allergies/Adverse Reactions: Allergies Allergy/AdvReac Type Severity Reaction Status Date / Time moxifloxacin HCl Allergy Severe Verified 04/21/17 06:54 [From Avelox] aclidinium bromide Allergy Verified 04/21/17 06:54 [From Tudorza Pressair] shellfish derived Allergy Verified 04/21/17 06:54 Home Medications: Ambulatory Orders Albuterol Sulfate Inhaler - [Ventolin HFA Inhaler -] 2 inh PO Q4H 02/08/14 Arformoterol Tartrate [Brovana] 15 mcg IH BID 02/08/14 Aspirin [ASA -] 81 mg PO DAILY 02/08/14 Furosemide [Lasix -] 20 mg PO PRN 02/08/14 Tamsulosin HCl [Flomax -] 0.4 mg PO DAILY 02/08/14 Tiotropium [place] [Spiriva] 1 inh PO DAILY 02/08/14 Beclomethasone Dipropionate [Qvar] 8.7 gm IH DAILY 01/09/16 Alprazolam [Xanax] 0.25 mg PO BID #20 tablet MDD 2 01/18/16 Atorvastatin Ca [Lipitor] 10 mg PO DAILY 08/30/16 Polyethylene Glycol 3350 [Miralax 119 gm Btl -] 17 gm PO DAILY PRN #1 bottle 10/15 Prednisone 40 mg PO DAILY #100 tablet 09/03/16 Anemia: No Asthma: No Cancer: No Cardiac Disorders: Yes (MD, CHF) CVA: No COPD: Yes (o2 at home) CHF: Yes Dementia: No Diabetes: No GI Disorders: Yes (umbilical hernia x 2) Disorders: Yes (UTI) HTN: Yes (FLUCTUATE) Hypercholesterolemia: Yes Kidney Stones: Yes Seizures: No Thyroid Disease: No Other medical history: epistaxis - Surgical History Abdominal Surgery: No Appendectomy: No Cardiac Surgery: No Cholecystectomy: No Lung Surgery: No Neurologic Surgery: No Orthopedic Surgery: No - Suicide/Smoking/Psychosocial Hx Smoking Status: No Smoking History: Former smoker Have you smoked in the past 12 months: No Number of Cigarettes Smoked Daily: 40 If you are a former smoker, when did you quit?: 2004 Information on smoking cessation initiated: No Hx Alcohol Use: No Drug/Substance Use Hx: No Substance Use Type: None Hx Substance Use Treatment: No *Physical Exam - Vital Signs Last Vital Signs Temp Pulse Resp BP Pulse Ox 114 H 18 129/62 98 04/21/17 06:54 04/21/17 06:54 04/21/17 06:54 04/21/17 07:52 ED Treatment Course - LABORATORY CBC & Chemistry Diagram: 04/21/17 07:31 04/21/17 07:34 - Medications Given in the ED: ED Medications Discontinued Medications Generic Name Dose Route Start Last Admin Trade Name Gera PRN Reason Stop Dose Admin Oxymetazoline HCl 1 spray 04/21/17 07:46 04/21/17 08:05 Afrin - NS 04/21/17 07:47 1 spray ONCE ONE Administration *DC/Admit/Observation/Transfer - Referrals Referrals: Mony Leslie MD [Primary Care Provider] - - Patient Instructions - Post Discharge Activity
[2017-04-21 08:07] LABS: BASOPHIL 0.7 % (0-2.0); EOSINOPHIL 2.3 % (0-4.5); MCH 27.6 pg (25.7-33.7); MCHC 31.9 g/dl (32.0-35.9); MEAN CELL VOLUME 86.3 fl (80-96); MEAN PLT VOLUME 8.6 fl (7.5-11.1); NEUTROPHILS 69.7 % (42.8-82.8); PLATELET COUNT 194 K/MM3 (134-434); RDW 14.1 % (11.9-15.9); WHITE BLOOD COUNT 7.9 K/mm3 (4.0-10.0)
[2017-04-21] MEDS ORDERED: PANTOPRAZOLE SODIUM 40 MG VIAL IVPUSH ONE (08:07)
[2017-04-21 08:21] LABS: INR 1.06 (0.82-1.09)
--- NOTE | 2017-04-21 08:29 | PDOC ---
History of Present Illness - General Chief Complaint: Nasal Bleeding Stated Complaint: NOSEBLEED Time Seen by Provider: 04/21/17 07:23 History Source: Patient Exam Limitations: No Limitations - History of Present Illness Initial Comments: 04/21/17 08:27 66M with pmh of HTN, VT, CHF and COPD on home O2 presents with left sided epistaxis for the past 6 hours. Patient states that the O2 dried up his nose and caused a crust that bled out when he picked at it. Complains of some nausea. Happened to him before with less severe presentation. On Aspirin. Denies weakness, headache Past History - Past Medical History Allergies/Adverse Reactions: Allergies Allergy/AdvReac Type Severity Reaction Status Date / Time moxifloxacin HCl Allergy Severe Verified 04/21/17 06:54 [From Avelox] aclidinium bromide Allergy Verified 04/21/17 06:54 [From Tudorza Pressair] shellfish derived Allergy Verified 04/21/17 06:54 Home Medications: Ambulatory Orders Albuterol Sulfate Inhaler - [Ventolin HFA Inhaler -] 2 inh PO Q4H 02/08/14 Arformoterol Tartrate [Brovana] 15 mcg IH BID 02/08/14 Aspirin [ASA -] 81 mg PO DAILY 02/08/14 Furosemide [Lasix -] 20 mg PO PRN 02/08/14 Tamsulosin HCl [Flomax -] 0.4 mg PO DAILY 02/08/14 Tiotropium [place] [Spiriva] 1 inh PO DAILY 02/08/14 Beclomethasone Dipropionate [Qvar] 8.7 gm IH DAILY 01/09/16 Alprazolam [Xanax] 0.25 mg PO BID #20 tablet MDD 2 01/18/16 Atorvastatin Ca [Lipitor] 10 mg PO DAILY 08/30/16 Polyethylene Glycol 3350 [Miralax 119 gm Btl -] 17 gm PO DAILY PRN #1 bottle 10/15 Prednisone 40 mg PO DAILY #100 tablet 09/03/16 Anemia: No Asthma: No Cancer: No Cardiac Disorders: Yes ([place], CHF) CVA: No COPD: Yes (o2 at home) CHF: Yes Dementia: No Diabetes: No GI Disorders: Yes (umbilical hernia x 2) Disorders: Yes (UTI) HTN: Yes (FLUCTUATE) Hypercholesterolemia: Yes Kidney Stones: Yes Seizures: No Thyroid Disease: No Other medical history: epistaxis - Surgical History Abdominal Surgery: No Appendectomy: No Cardiac Surgery: No Cholecystectomy: No Lung Surgery: No Neurologic Surgery: No Orthopedic Surgery: No - Suicide/Smoking/Psychosocial Hx Smoking Status: No Smoking History: Former smoker Have you smoked in the past 12 months: No Number of Cigarettes Smoked Daily: 40 If you are a former smoker, when did you quit?: 2004 Information on smoking cessation initiated: No Hx Alcohol Use: No Drug/Substance Use Hx: No Substance Use Type: None Hx Substance Use Treatment: No Review of Systems - Review of Systems Able to Perform ROS?: Yes Is the patient limited German proficient: No Constitutional: No: Symptoms Reported HEENTM: Yes: See HPI Respiratory: No: Symptoms reported Cardiac (ROS): No: Symptoms Reported ABD/GI: No: Symptoms Reported : No: Symptoms Reported Musculoskeletal: No: Symptoms Reported, Neck Pain Integumentary: No: Symptoms Reported Neurological: No: Symptoms reported All Other Systems: Reviewed and Negative *Physical Exam - Vital Signs Last Vital Signs Temp Pulse Resp BP Pulse Ox 114 H 18 129/62 98 04/21/17 06:54 04/21/17 06:54 04/21/17 06:54 04/21/17 07:52 - Physical Exam General Appearance: Yes: Nourished, Appropriately Dressed, Mild Distress HEENT: positive: EOMI, EUGENE, Normal ENT Inspection, Other (anterior right epistaxis over Kiesselbach's plexus) Neck: negative: Tender Respiratory/Chest: positive: Lungs Clear, Normal Breath Sounds. negative: Chest Tender Cardiovascular: positive: Regular Rhythm, Regular Rate, S1, S2, Tachycardia Gastrointestinal/Abdominal: positive: Normal Bowel Sounds, Flat, Soft. negative : Tender Musculoskeletal: positive: Normal Inspection ED Treatment Course - LABORATORY CBC & Chemistry Diagram: 04/21/17 11:42 04/21/17 07:34 - Medications Given in the ED: ED Medications Discontinued Medications Generic Name Dose Route Start Last Admin Trade Name Freq PRN Reason Stop Dose Admin Oxymetazoline HCl 1 spray 04/21/17 07:46 04/21/17 08:05 Afrin - NS 04/21/17 07:47 1 spray ONCE ONE Administration Medical Decision Making - Medical Decision Making 04/21/17 08:51 66M on o2 at home present with anterior epistaxis on the right nare. Bloodwork pending to r/o anemia. Nares suctioned and bleed visualized over Kiesselbach's. Afrin administred , and bleed controlled with pressure 04/21/17 08:54 04/21/17 16:01 Patient given additional unit of blood and admitted to telemetry *DC/Admit/Observation/Transfer Diagnosis at time of Disposition: Anemia, Epistaxis, recurrent - Discharge Dispostion Condition at time of disposition: Stable - Referrals - Patient Instructions - Post Discharge Activity
[2017-04-21] MEDS ORDERED: ONDANSETRON 4 MG/2 ML VIAL ONE (08:30)
[2017-04-21 08:34] LABS: ALBUMIN 3.3 g/dl (3.4-5.0); ANION GAP 6 (8-16); BILIRUBIN,TOTAL 0.3 mg/dL (0.2-1.0); CALCIUM 8.8 mg/dL (8.5-10.1); CO2 34 mmol/L (21-32); CREATININE 0.6 mg/dL (0.7-1.3); GLUCOSE,RANDOM 92 mg/dL (74-106); SGOT/AST 12 U/L (15-37); SGPT/ALT 20 U/L (12-78); TOT PROT 6.4 g/dl (6.4-8.2)
[2017-04-21 08:35] LABS: ALK PHOS 60 U/L (45-117)
[2017-04-21] MEDS ORDERED: PANTOPRAZOLE SODIUM 40 MG VIAL ONE (08:39)
[2017-04-21 12:11] LABS: BASOPHIL 0.6 % (0-2.0); EOSINOPHIL 2.5 % (0-4.5); MCH 27.3 pg (25.7-33.7); MEAN PLT VOLUME 8.3 fl (7.5-11.1); NEUTROPHILS 64.5 % (42.8-82.8); PLATELET COUNT 183 K/MM3 (134-434); RDW 14.3 % (11.9-15.9)
[2017-04-21] MEDS ORDERED: ALBUTEROL SO4 0.083% IH SOL 2.5 MG/3 ML VIAL.NEB. NEB PRN (16:05)
--- NOTE | 2017-04-21 16:05 | HP ---
Admitting History and Physical - Admission History of Present Illness: 66-year-old male with history of COPD O2 dependent also on daily baby aspirin with history of recurring epistaxis and multiple visits for epistaxis p/w epistaxis. Pt reports that his home O2 causes his nose to dry out and he often develops crusting in his nose which forces him to pick at it. He reports about 6 hours ago he was attempting to remove some of the crust in his nose when he accidentally cut himself and began to bleed from his L nostril. He reports persistent bleeding since then despite pressure with some clots. He reports that this often occurs in the setting of his nose being dry from his home O2 and that intermittently uses sesame oil to help lubricate but he hasn't used that in the last few days. Denies any recent fevers, chills, chest pain, shortness of breath, abdominal pain. He reports nausea now due to the blood in the back of his oropharynx. He denies any headaches, weakness, numbness. His who is at the bedside reports that he appears pale. per patient nost bleed started at 2:30 in am and lasted for 6 hours he even reports a blood clot in back of his throat in ER he was foudn tacycardic on ambulation and h/h from 11( 03/07/17) and today is 01/22 History Source: Patient - Past Medical History Cardiovascular: Yes: CHF, Hyperlipdemia, Pulmonary Hypertension Pulmonary: Yes: COPD (home oxygen), Previously Intubated (intubated one time several years ago for respiratory failure) Gastrointestinal: Yes: GERD Renal/: Yes: Renal Calculi, UTI - Smoking History Smoking history: Former smoker Have you smoked in the past 12 months: No Aproximately how many cigarettes per day: 40 If you are a former smoker, when did you quit?: 2004 - Alcohol/Substance Use Hx Alcohol Use: No History of Substance Use: reports: None - Social History ADL: Independent 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 History of Recent Travel: No Home Medications - Allergies Allergies/Adverse Reactions: Allergies Allergy/AdvReac Type Severity Reaction Status Date / Time moxifloxacin HCl Allergy Severe Verified 04/21/17 06:54 [From Avelox] aclidinium bromide Allergy Verified 04/21/17 06:54 [From Tudorza Pressair] shellfish derived Allergy Verified 04/21/17 06:54 - Home Medications Home Medications: Ambulatory Orders Albuterol Sulfate Inhaler - [Ventolin HFA Inhaler -] 2 inh PO Q4H 02/08/14 Arformoterol Tartrate [Brovana] 15 mcg IH BID 02/08/14 Aspirin [ASA -] 81 mg PO DAILY 02/08/14 Furosemide [Lasix -] 20 mg PO PRN 02/08/14 Tamsulosin HCl [Flomax -] 0.4 mg PO DAILY 02/08/14 Tiotropium [place] [Spiriva] 1 inh PO DAILY 02/08/14 Beclomethasone Dipropionate [Qvar] 8.7 gm IH DAILY 01/09/16 Alprazolam [Xanax] 0.25 mg PO BID #20 tablet MDD 2 01/18/16 Atorvastatin Ca [Lipitor] 10 mg PO DAILY 08/30/16 Polyethylene Glycol 3350 [Miralax 119 gm Btl -] 17 gm PO DAILY PRN #1 bottle 10/15 Prednisone 40 mg PO DAILY #100 tablet 09/03/16 Review of Systems - Review of Systems HENT: reports: Epistaxis (stopped) Cardiovascular: reports: No Symptoms Respiratory: reports: No Symptoms Gastrointestinal: reports: No Symptoms Physical Examination Vital Signs: Vital Signs Temperature 98.2 F 04/21/17 15:44 Pulse Rate 92 H 04/21/17 15:44 Respiratory Rate 18 04/21/17 15:44 Blood Pressure 100/50 04/21/17 15:44 O2 Sat by Pulse Oximetry (%) 100 04/21/17 15:44 Constitutional: Yes: Calm HENT: Yes: Other (dried blood arount the nostrils) Neck: Yes: Trachea Midline Cardiovascular: Yes: Regular Rate and Rhythm, S1, S2 Labs: CBC, BMP 04/21/17 11:42 04/21/17 07:34 Problem List - Problems (1) Anemia Assessment/Plan: monitor 24 hrs for further epistaxis transfuse one unit prbc today lasix Code(s): D64.9 - ANEMIA, UNSPECIFIED (2) Epistaxis, recurrent Assessment/Plan: humidified oxygen monitor for epistaxis Code(s): R04.0 - EPISTAXIS (3) COPD (chronic obstructive pulmonary disease) Assessment/Plan: oxygen bronchodilators Code(s): J44.9 - CHRONIC OBSTRUCTIVE PULMONARY DISEASE, UNSPECIFIED (4) Hyperlipidemia Assessment/Plan: statin Code(s): E78.5 - HYPERLIPIDEMIA, UNSPECIFIED Qualifiers: (5) BPH (benign prostatic hypertrophy) Assessment/Plan: flomax Code(s): N40.0 - BENIGN PROSTATIC HYPERPLASIA WITHOUT LOWER URINRY TRACT SYMP
[2017-04-21] MEDS: TAMSULOSIN HCL 0.4 MG CAP.ER.24H (FP) PO SCH (16:53)
[2017-04-21] MEDS: ALPRAZolam 0.25 MG TABLET PO SCH ×2 (16:54→21:51)
[2017-04-21] MEDS: ATORVASTATIN CA 10 MG TABLET (FP) PO SCH ×2 (16:54→21:50)
[2017-04-21] MEDS: FUROSEMIDE 40 MG TABLET (FP) PO SCH (16:55)
[2017-04-21] MEDS: ARFORMOTEROL TARTRATE 15 MCG/2 ML VIAL NEB SCH ×2 (17:15→22:32)
[2017-04-21] MEDS: TIOTROPIUM BROMIDE 18 MCG/INH (DEVICE W/ 5 CAPSULES) IH SCH (17:29)
--- NOTE | 2017-04-21 17:57 | EKG ---
Test Reason : Blood Pressure : / mmHG Vent. Rate : 112 BPM Atrial Rate : 112 BPM P-R Int : 162 ms QRS Dur : 122 ms QT Int : 346 ms P-R-T Axes : 086 084 034 degrees QTc Int : 472 ms POOR DATA QUALITY, INTERPRETATION MAY BE ADVERSELY AFFECTED SINUS TACHYCARDIA ST AND T WAVE ABNORMALITIES IN II III aVF ABNORMAL ECG WHEN COMPARED WITH ECG OF 31-AUG-2016 12:11, CHANGES MENTIONED ABOVE REPEAT EKG IF CLINICALLY INDICATED Confirmed by OPAL MARY MD ([id number]) on 04/21/2017 5:57:24 PM Referred By: Confirmed By:OPAL MARY MD
[2017-04-22] MEDS ORDERED: ONDANSETRON 4 MG/2 ML VIAL IVPUSH PRN (00:27)
[2017-04-22] MEDS: ACETAMINOPHEN 325 MG TABLET (FP) PO PRN ×3 (00:39→16:28)
[2017-04-22 07:39] LABS: BASOPHIL 0.5 % (0-2.0); EOSINOPHIL 2.8 % (0-4.5); MCH 28.5 pg (25.7-33.7); MCHC 32.7 g/dl (32.0-35.9); MEAN CELL VOLUME 87.1 fl (80-96); MEAN PLT VOLUME 8.7 fl (7.5-11.1); NEUTROPHILS 61.3 % (42.8-82.8); PLATELET COUNT 165 K/MM3 (134-434); RDW 14.1 % (11.9-15.9); WHITE BLOOD COUNT 6.5 K/mm3 (4.0-10.0)
[2017-04-22 07:46] LABS: ANION GAP 4 (8-16); CALCIUM 8.6 mg/dL (8.5-10.1); CO2 36 mmol/L (21-32); GLUCOSE,RANDOM 84 mg/dL (74-106); MAGNESIUM 1.8 mg/dL (1.8-2.4)
[2017-04-22 07:51] LABS: ALK PHOS 52 U/L (45-117); BILIRUBIN,TOTAL 0.6 mg/dL (0.2-1.0); CREATININE 0.8 mg/dL (0.7-1.3); SGOT/AST 10 U/L (15-37); SGPT/ALT 15 U/L (12-78); TOT PROT 5.4 g/dl (6.4-8.2)
--- NOTE | 2017-04-22 09:20 | PN ---
Progress Note, Physician History of Present Illness: fatigue low back pain - Current Medication List Current Medications: Active Medications Acetaminophen (Tylenol -) 650 mg PO Q4H PRN PRN Reason: FEVER OR PAIN Last Admin: 04/22/17 00:39 Dose: 650 mg Albuterol Sulfate (Ventolin 0.083% Nebulizer Soln -) 1 amp NEB Q6H PRN PRN Reason: SHORT OF BREATH/WHEEZING Alprazolam (Xanax -) 0.25 mg PO BID [facility] Last Admin: 04/21/17 21:51 Dose: 0.25 mg Arformoterol Tartrate (Brovana (Restricted To Pulmonology/Resp) -) 1 amp NEB BID [facility] Last Admin: 04/21/17 22:32 Dose: 1 amp Atorvastatin Calcium (Lipitor -) 10 mg PO HS [facility] Last Admin: 04/21/17 21:50 Dose: 10 mg Furosemide (Lasix -) 40 mg PO DAILY [facility] Last Admin: 04/21/17 16:55 Dose: Not Given Ondansetron HCl (Zofran Injection) 4 mg IVPUSH Q8H PRN PRN Reason: NAUSEA AND/OR VOMITING Last Admin: 04/22/17 00:40 Dose: 4 mg Tamsulosin HCl (Flomax -) 0.4 mg PO DAILY@0830 [facility] Last Admin: 04/21/17 16:53 Dose: 0.4 mg Tiotropium [place] (Spiriva -) 1 puff IH DAILY [facility] Last Admin: 04/21/17 17:29 Dose: 1 puff - Objective Vital Signs: Vital Signs Temperature 98.5 F 04/22/17 05:00 Pulse Rate 79 04/22/17 05:00 Respiratory Rate 18 04/22/17 05:00 Blood Pressure 104/55 04/22/17 05:00 O2 Sat by Pulse Oximetry (%) 97 04/22/17 00:03 Cardiovascular: Yes: S1 Respiratory: Yes: Diminished Gastrointestinal: Yes: Normal Bowel Sounds, Soft Labs: CBC, BMP 04/22/17 06:30 04/22/17 06:30 INR, PTT INR 1.06 (0.82-1.09) 04/21/17 07:31 Assessment/Plan - Problems (1) Anemia Assessment/Plan: monitor 24 hrs for further epistaxis transfuse one unit prbc today lasix gi consult Code(s): D64.9 - ANEMIA, UNSPECIFIED (2) Epistaxis, recurrent Assessment/Plan: humidified oxygen monitor for epistaxis ent Code(s): R04.0 - EPISTAXIS (3) COPD (chronic obstructive pulmonary disease) Assessment/Plan: oxygen bronchodilators pulm consult Code(s): J44.9 - CHRONIC OBSTRUCTIVE PULMONARY DISEASE, UNSPECIFIED (4) Hyperlipidemia Assessment/Plan: statin Code(s): E78.5 - HYPERLIPIDEMIA, UNSPECIFIED Qualifiers: (5) BPH (benign prostatic hypertrophy) Assessment/Plan: flomax Code(s): N40.0 - BENIGN PROSTATIC HYPERPLASIA WITHOUT LOWER URINRY TRACT SYMP
[2017-04-22] MEDS: FUROSEMIDE 40 MG TABLET (FP) PO SCH (09:31)
[2017-04-22] MEDS: TAMSULOSIN HCL 0.4 MG CAP.ER.24H (FP) PO SCH (09:31)
[2017-04-22] MEDS: ALPRAZolam 0.25 MG TABLET PO SCH ×2 (09:32→21:48)
[2017-04-22] MEDS: TIOTROPIUM BROMIDE 18 MCG/INH (DEVICE W/ 5 CAPSULES) IH SCH (09:33)
[2017-04-22] MEDS: ARFORMOTEROL TARTRATE 15 MCG/2 ML VIAL NEB SCH ×2 (09:45→21:54)
--- NOTE | 2017-04-22 11:15 | CON.GI ---
Consult Consult Specialty:: GI Referred by:: Dr Leslie Reason for Consultation:: Anemia - History of Present Illness History of Present Illness: 66 yom with HTN, SD, CHF and COPD on NC O2 presents with left sided epistaxis for the past 6 hours. On Aspirin. Noted to have Hgb 8 g/dl. Normal MCV, RDW, PLT , BUN, INR, PT 12. Denies melena, hematochezia, hematemesis. Had a normal, per patient , colonoscpy 2-3 years ago. Never had EGD. Denies nausea, vomiting, dysphagia, odynophagia, GERD-like symptoms, abdominal or epigastric pain. Jez chest pain, dizziness, lightheadedness. Reports fatigue. - History Source History Provided By: Patient, Medical Record - Past Medical History Cardio/Vascular: Yes: CHF, Hyperlipdemia, Pulmonary Hypertension Pulmonary: Yes: COPD (home oxygen), Previously Intubated (intubated one time several years ago for respiratory failure) Gastrointestinal: Yes: GERD, Hiatal Hernia. No: GI Bleed, Hemorrhoids, Peptic Ulcer Disease, Ulcerative Colitis Renal/: Yes: Renal Calculi, UTI Additional Medical History: Inguinal hernia. 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 History of Recent Travel: No Home Medications - Allergies Allergies/Adverse Reactions: Allergies Allergy/AdvReac Type Severity Reaction Status Date / Time moxifloxacin HCl Allergy Severe Verified 04/21/17 06:54 [From Avelox] aclidinium bromide Allergy Verified 04/21/17 06:54 [From Tudorza Pressair] shellfish derived Allergy Verified 04/21/17 06:54 - Home Medications Home Medications: Ambulatory Orders Albuterol Sulfate Inhaler - [Ventolin HFA Inhaler -] 2 inh PO Q4H 02/08/14 Arformoterol Tartrate [Brovana] 15 mcg IH BID 02/08/14 Aspirin [ASA -] 81 mg PO DAILY 02/08/14 Furosemide [Lasix -] 20 mg PO PRN 02/08/14 Tamsulosin HCl [Flomax -] 0.4 mg PO DAILY 02/08/14 Tiotropium [place] [Spiriva] 1 inh PO DAILY 02/08/14 Beclomethasone Dipropionate [Qvar] 8.7 gm IH DAILY 01/09/16 Alprazolam [Xanax] 0.25 mg PO BID #20 tablet MDD 2 01/18/16 Atorvastatin Ca [Lipitor] 10 mg PO DAILY 08/30/16 Polyethylene Glycol 3350 [Miralax 119 gm Btl -] 17 gm PO DAILY PRN #1 bottle 10/15 Prednisone 40 mg PO DAILY #100 tablet 09/03/16 Family Disease History - Family Disease History Family History: Unremarkable Review of Systems Findings/Remarks: please refer to H&P Physical Exam-GI Vital Signs: Vital Signs Temperature 98.7 F 04/22/17 09:00 Pulse Rate 91 H 04/22/17 09:00 Respiratory Rate 18 04/22/17 09:00 Blood Pressure 122/63 04/22/17 09:00 O2 Sat by Pulse Oximetry (%) 98 04/22/17 08:00 Constitutional: Yes: Well Nourished, No Distress, Calm Eyes: Yes: Conjunctiva Clear HENT: Yes: Atraumatic Neck: Yes: Supple Cardiovascular: Yes: Regular Rate and Rhythm Respiratory: Yes: Regular ...Auscultate: Yes: Normoactive Bowel Sounds ...Palpate: Yes: Soft. No: Firm/Rigid, Guarding, Mass, Tenderness Neurological: Yes: Alert, Oriented Labs: CBC, BMP 04/22/17 06:30 04/22/17 06:30 INR, PTT INR 1.06 (0.82-1.09) 04/21/17 07:31 Laboratory Results - last 24 hr 04/21/17 04/21/17 04/22/17 11:42 14:34 06:30 WBC 7.0 6.5 RBC 2.92 L 2.98 L Hgb 8.0 L D 8.5 L Hct 25.7 L 26.0 L MCV 88.0 87.1 MCH 27.3 28.5 MCHC 31.0 L 32.7 RDW 14.3 14.1 Plt Count 183 165 MPV 8.3 8.7 Neutrophils % 64.5 61.3 Lymphocytes % 21.2 D 24.1 Monocytes % 11.2 H 11.3 H Eosinophils % 2.5 2.8 Basophils % 0.6 0.5 Sodium Potassium Chloride Carbon Dioxide Anion Gap BUN Creatinine Creat Clearance w eGFR Random Glucose Calcium Phosphorus Magnesium Total Bilirubin AST ALT Alkaline Phosphatase Total Protein Albumin Blood Type B POSITIVE Antibody Screen Negative Crossmatch See Detail 04/22/17 06:30 WBC RBC Hgb Hct MCV MCH MCHC RDW Plt Count MPV Neutrophils % Lymphocytes % Monocytes % Eosinophils % Basophils % Sodium 142 Potassium 4.3 Chloride 102 Carbon Dioxide 36 H Anion Gap 4 L BUN 13 D Creatinine 0.8 D Creat Clearance w eGFR > 60 Random Glucose 84 Calcium 8.6 Phosphorus 3.0 D Magnesium 1.8 Total Bilirubin 0.6 D AST 10 L ALT 15 D Alkaline Phosphatase 52 Total Protein 5.4 L Albumin 3.0 L Blood Type Antibody Screen Crossmatch Imaging - Results Cat Scan: Report Reviewed (no acute pathology) Problem List - Problems (1) NSAID long-term use Code(s): Z79.1 - ASSISTED (CURRENT) USE OF NON-STEROIDAL NON-INFLAM (NSAID) (2) Anemia Code(s): D64.9 - ANEMIA, UNSPECIFIED (3) Epistaxis, recurrent Code(s): R04.0 - EPISTAXIS Assessment/Plan A 66 yom with significant anemia and recent epistaxis, however it can't explain the degree of anemia. No other signs, or stigmata of ongoing or recent GI blood loss. Hemodynamically stable. Discussed with the patient Need to r/o GI sources of anemia. Neoplasm, PUD, NSAID-related gastritis, ulcer , etc. Plan EGD and colonoscopy as OP next week Avoid NSAIDs PPI po qam, 30m in before breakfast.
--- NOTE | 2017-04-22 11:21 | PN ---
Progress Note (short form) - Note Progress Note: Pulmonary Full note to follow. 66 year old malt with severe COPD and LINDSEY cavity. Admitted with epistaxis. Recent office evaluation faxed to [facility].
[2017-04-22 12:01] LABS: CPK 37 IU/L (39-308); TROPONIN I < 0.02 ng/ml (0.00-0.05)
--- NOTE | 2017-04-22 12:16 | EKG ---
Test Reason : Blood Pressure : / mmHG Vent. Rate : 082 BPM Atrial Rate : 082 BPM P-R Int : 158 ms QRS Dur : 130 ms QT Int : 386 ms P-R-T Axes : 059 081 031 degrees QTc Int : 450 ms NORMAL SINUS RHYTHM RIGHT BUNDLE BRANCH BLOCK ABNORMAL ECG WHEN COMPARED WITH ECG OF 21-APR-2017 06:47, NO SIGNIFICANT CHANGE WAS FOUND Confirmed by YISEL SALINAS MD ([id number]) on 04/22/2017 12:15:55 PM Referred By: VINNY FREEMAN Confirmed By:YISEL SALINAS MD
--- NOTE | 2017-04-22 16:11 | CON.PULM ---
Consult - History of Present Illness Chief Complaint: Nosebleeding History of Present Illness: 66 year old male with severe COPD on O2 developed severe epistaxis requiring transfusion and hospital admission. Pt had several episodes epistaxis in the last several weeks requiring ER visits. No recent fever. No chest pain or palpitations. Pt seen in office 04/06/2017 with acute bronchitis and increased dyspnea and was placed on increased Prednisone and Levaquin. PMH significant for severe COPD (FEV1=0.42 L/S, FVC=2.12=46% on 05/02/2016). 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 He goes to Pulmonary Rehab at [facility] on a regular basis. In December 2015 he was in hospital with acute bronchitis and found to have a left apical cavity: AFB smear (+) for numerous AFB. CT findings had worsened compared to 06/16 so this was felt to possibly represent tissue infection rather than colonization and could eventually require tx. M.TB PCR and MAC PCR, however, were both negative. Cultures eventually grew out Mycobacterium Xenopi. Pt has remained asymptomatic and he not been treated for M.Xenopi but his CT is followed periodically. - History Source History Provided By: Patient, Medical Record Limitations to Obtaining History: No Limitations - Past Medical History Cardio/Vascular: Yes: CHF, Hyperlipdemia, Pulmonary Hypertension Pulmonary: Yes: COPD (home oxygen), Previously Intubated (intubated one time several years ago for respiratory failure) Gastrointestinal: Yes: GERD, Hiatal Hernia. No: GI Bleed, Hemorrhoids, Peptic Ulcer Disease, Ulcerative Colitis Renal/: Yes: Renal Calculi, UTI Additional Medical History: Inguinal hernia. 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 History of Recent Travel: No Home Medications - Allergies Allergies/Adverse Reactions: Allergies Allergy/AdvReac Type Severity Reaction Status Date / Time moxifloxacin HCl Allergy Severe Verified 04/21/17 06:54 [From Avelox] aclidinium bromide Allergy Verified 04/21/17 06:54 [From Tudorza Pressair] shellfish derived Allergy Verified 04/21/17 06:54 - Home Medications Home Medications: Ambulatory Orders Albuterol Sulfate Inhaler - [Ventolin HFA Inhaler -] 2 inh PO Q4H 02/08/14 Arformoterol Tartrate [Brovana] 15 mcg IH BID 02/08/14 Aspirin [ASA -] 81 mg PO DAILY 02/08/14 Furosemide [Lasix -] 20 mg PO PRN 02/08/14 Tamsulosin HCl [Flomax -] 0.4 mg PO DAILY 02/08/14 Tiotropium [place] [Spiriva] 1 inh PO DAILY 02/08/14 Beclomethasone Dipropionate [Qvar] 8.7 gm IH DAILY 01/09/16 Alprazolam [Xanax] 0.25 mg PO BID #20 tablet MDD 2 01/18/16 Atorvastatin Ca [Lipitor] 10 mg PO DAILY 08/30/16 Polyethylene Glycol 3350 [Miralax 119 gm Btl -] 17 gm PO DAILY PRN #1 bottle 10/15 Prednisone 40 mg PO DAILY #100 tablet 09/03/16 Peg 3350/Na Sulf,Bicarb,Cl/KCl [Golytely Solution] 4,000 ml PO ONCE 1 Days #1 soln.recon 04/22/17 Review of Systems - Review of Systems Constitutional: denies: Chills, Fever Cardiovascular: reports: Shortness of Breath. denies: Chest Pain Respiratory: denies: Wheezing Physical Exam Vital Sings: Vital Signs Temperature 98.7 F 04/22/17 09:00 Pulse Rate 91 H 04/22/17 09:00 Respiratory Rate 18 04/22/17 09:00 Blood Pressure 122/63 04/22/17 09:00 O2 Sat by Pulse Oximetry (%) 98 04/22/17 08:00 Constitutional: Yes: Well Nourished, No Distress Eyes: No: Sclera Icterus HENT: Yes: Atraumatic, Normocephalic Neck: Yes: Supple, Trachea Midline Cardiovascular: Yes: Regular Rate and Rhythm. No: JVD Respiratory: Yes: Diminished (decreasaed intensity breath sounds bilaterally) ...Clubbing: No Gastrointestinal: Yes: Soft. No: Hepatomegaly, Splenomegaly, Tenderness Extremities: No: Calf Tenderness Edema: Yes Neurological: Yes: Alert, Oriented Labs: CBC, BMP 04/22/17 06:30 04/22/17 06:30 Imaging - Results Cat Scan: Report Reviewed, Image Reviewed (CT chest 03/27/2017 with slight increase in size LINDSEY cavity compared to 11/2016) Problem List - Problems (1) COPD (chronic obstructive pulmonary disease) Code(s): J44.9 - CHRONIC OBSTRUCTIVE PULMONARY DISEASE, UNSPECIFIED (2) Epistaxis, recurrent Code(s): R04.0 - EPISTAXIS Assessment/Plan 66 yeear old male with severe O2 and steroid dependent COPD. Recent acute bronchitis but respiratory status appears stable at present Epistaxis:recurrent and significant: required transfusion and admission to hospital. Plan: CXR pending Continue Prednisone and bronchodilator Use humidified O2 via mask as much as possible Ent evaluation Follow-up CT Chest in six months.
--- NOTE | 2017-04-22 17:18 | HOSP ---
Subjective - Review of Symptoms Events since last encounter: Paged by nurse saying patient has a fever of 100.9F and episodes of bradycardia in the low 30s. Arrived in patient's room and found Mr. Veloz to be AAO x 3, not in any cardiopulmonary distress. He endorses slight headache but denies chest pain and shortness of breath. General: Yes: Chills HEENT: Yes: Head Aches Pulmonary: No: Dyspnea, Cough Cardiovascular: No: Chest Pain, Palpitations, Light Headedness Gastrointestinal: No: Nausea, Vomiting, Melena Musculoskeletal: Yes: No Symptoms Physical Examination Vital Signs: Vital Signs Temperature 98.7 F 04/22/17 09:00 Pulse Rate 91 H 04/22/17 09:00 Respiratory Rate 18 04/22/17 16:00 Blood Pressure 122/63 04/22/17 09:00 O2 Sat by Pulse Oximetry (%) 98 04/22/17 16:00 Constitutional: Yes: No Distress, Calm. No: Mild Distress Eyes: Yes: Conjunctiva Clear HENT: Yes: Atraumatic, Normocephalic Cardiovascular: Yes: Bradycardia, S1, S2 Respiratory: Yes: CTA Bilaterally Gastrointestinal: Yes: Normal Bowel Sounds Labs: CBC, BMP 04/22/17 06:30 04/22/17 06:30 Hospitalist Encounter Assessment: Fever - Stat blood culture, CBC w/ diff - Observe off abx for now - Tyenolol PRN - Consider DVT if not sepsis Bradycardia - Asymptomatic - Transient episodes - HR wnl now - Continue to observe. Visit type - Emergency Visit Emergency Visit: No - New Patient This patient is new to me today: Yes Date on this admission: 04/22/17 - Critical Care Critical Care patient: No
[2017-04-22 18:01] LABS: BASOPHIL 0.8 % (0-2.0); EOSINOPHIL 2.6 % (0-4.5); MCH 29.1 pg (25.7-33.7); MCHC 34.1 g/dl (32.0-35.9); MEAN CELL VOLUME 85.3 fl (80-96); MEAN PLT VOLUME 8.2 fl (7.5-11.1); NEUTROPHILS 70.1 % (42.8-82.8); PLATELET COUNT 156 K/MM3 (134-434); RDW 13.8 % (11.9-15.9); WHITE BLOOD COUNT 6.5 K/mm3 (4.0-10.0)
[2017-04-22 18:20] LABS: URINE APPEARANCE CLEAR; URINE BILIRUBIN NEGATIVE (NEGATIVE); URINE BLOOD NEGATIVE (NEGATIVE); URINE COLOR YELLOW; URINE GLUCOSE (UA) NEGATIVE (NEGATIVE); URINE KETONE NEGATIVE (NEGATIVE); URINE NITRITE NEGATIVE (NEGATIVE); URINE PROTEIN NEGATIVE (NEGATIVE); URINE UROBILINOGEN NEGATIVE mg/dL (0.2-1.0)
--- NOTE | 2017-04-22 20:16 | CON.ENT ---
Consult Consult Specialty:: ENT Referred by:: Dr. Leslie Reason for Consultation:: epistaxis - History of Present Illness Chief Complaint: nasal bleeding History of Present Illness: 66 yo M admitted with acute nasal bleeding hx pulmonary hypertension, on home O2, states he gets nasal crusting and picks his nose. when at home he picked it and significant bleeding came from right nostril and into throat., He tried to apply ice but bleeding did not stop after 6-1/2 hours, so he came to Emergency department. on baby ASA daily,hx MRSA nares, (on isolation) required transfusion of PRBC - History Source History Provided By: Patient, Medical Record Limitations to Obtaining History: No Limitations - Past Medical History Cardio/Vascular: Yes: CHF, Hyperlipdemia, Pulmonary Hypertension Pulmonary: Yes: COPD (home oxygen), Previously Intubated (intubated one time several years ago for respiratory failure) Gastrointestinal: Yes: GERD, Hiatal Hernia. No: GI Bleed, Hemorrhoids, Peptic Ulcer Disease, Ulcerative Colitis Renal/: Yes: Renal Calculi, UTI Additional Medical History: Inguinal hernia. 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 History of Recent Travel: No Home Medications - Allergies Allergies/Adverse Reactions: Allergies Allergy/AdvReac Type Severity Reaction Status Date / Time moxifloxacin HCl Allergy Severe Verified 04/21/17 06:54 [From Avelox] aclidinium bromide Allergy Verified 04/21/17 06:54 [From Tudorza Pressair] shellfish derived Allergy Verified 04/21/17 06:54 - Home Medications Home Medications: Ambulatory Orders Albuterol Sulfate Inhaler - [Ventolin HFA Inhaler -] 2 inh PO Q4H 02/08/14 Arformoterol Tartrate [Brovana] 15 mcg IH BID 02/08/14 Aspirin [ASA -] 81 mg PO DAILY 02/08/14 Furosemide [Lasix -] 20 mg PO PRN 02/08/14 Tamsulosin HCl [Flomax -] 0.4 mg PO DAILY 02/08/14 Tiotropium [place] [Spiriva] 1 inh PO DAILY 02/08/14 Beclomethasone Dipropionate [Qvar] 8.7 gm IH DAILY 01/09/16 Alprazolam [Xanax] 0.25 mg PO BID #20 tablet MDD 2 01/18/16 Atorvastatin Ca [Lipitor] 10 mg PO DAILY 08/30/16 Polyethylene Glycol 3350 [Miralax 119 gm Btl -] 17 gm PO DAILY PRN #1 bottle 10/15 Prednisone 40 mg PO DAILY #100 tablet 09/03/16 Peg 3350/Na Sulf,Bicarb,Cl/KCl [Golytely Solution] 4,000 ml PO ONCE 1 Days #1 soln.recon 04/22/17 Physical Exam-ENT Vital Signs: Vital Signs Temperature 99.9 F H 04/22/17 17:00 Pulse Rate 91 H 04/22/17 17:00 Respiratory Rate 18 04/22/17 17:00 Blood Pressure 108/64 04/22/17 17:00 O2 Sat by Pulse Oximetry (%) 98 04/22/17 16:00 Constitutional: Yes: Well Nourished, No Distress, Calm Face: Yes: WNL Eyes: Yes: WNL Nose: Yes: Other (sl dry blood, no fresh blood or active bleeding) Nasal Passage: Yes: Other (no active bleeding) Oral/Pharynx: Yes: WNL Outer Ear: Yes: WNL Neck: Yes: WNL Respiratory: Yes: WNL Neurological: Yes: Alert, Oriented Problem List - Problems (1) Epistaxis, recurrent Assessment/Plan: pt admitted with significant epistaxis, secondary to nasal dryness (nasal oxygen at home) and nasal trauma (chronic nose picking). Exacerbated by aspirin associated platelet dysfunction. blood loss produced low H/H requiring transfusion of PRBC presently not bleeding Recommend: advised pt to NOT PICK NOSE nasal saline spray ordered Advised him if bleeding recurs, to insert cotton or tissue and squeeze nose firmly for 5 minutes should not wait as long as he did to control bleeding since pt requires oxygen, consider (in hospital or at home) humidified face mask. since this does not enter nostrils and covers nose pt admits this will be a deterrent to nose picking. Thank you for consultation, Peter Reid MD FACS Code(s): R04.0 - EPISTAXIS
[2017-04-22 21:03] LABS: URINE LEUK ESTERASE Negative (NEGATIVE)
[2017-04-22] MEDS: predniSONE 10 MG TABLET (UD) PO SCH (21:12)
[2017-04-22] MEDS: ATORVASTATIN CA 10 MG TABLET (FP) PO SCH (21:12)
[2017-04-22] MEDS: SODIUM CHLORIDE NASAL SPRAY 44 ML BOTTLE NS SCH (22:00)
[2017-04-23] MEDS: ACETAMINOPHEN 325 MG TABLET (FP) PO PRN (04:43)
[2017-04-23 09:07] VITALS: BP 126/56; TEMP 98.2
--- NOTE | 2017-04-23 09:09 | PN ---
Progress Note (short form) - Note Progress Note: ID Consult dictated Low grade fever ? source S/P epistaxis COPD Await BC Obtain CXR Observe off antibiotics No objection to discharge with outpatient follow up
[2017-04-23] MEDS ORDERED: PT OWN MED DRAWER 7, Y5N ONE (09:15)
[2017-04-23] MEDS: ALPRAZolam 0.25 MG TABLET PO SCH (09:20)
[2017-04-23] MEDS: predniSONE 10 MG TABLET (UD) PO SCH (09:20)
[2017-04-23] MEDS: TAMSULOSIN HCL 0.4 MG CAP.ER.24H (FP) PO SCH (09:20)
[2017-04-23] MEDS: FUROSEMIDE 40 MG TABLET (FP) PO SCH (09:20)
[2017-04-23] MEDS: TIOTROPIUM BROMIDE 18 MCG/INH (DEVICE W/ 5 CAPSULES) IH SCH (09:21)
--- NOTE | 2017-04-23 09:35 | CONS ---
DATE OF CONSULTATION: DATE OF DICTATION: 04/23/2017 HISTORY OF PRESENT ILLNESS: The patient is a 66-year-old male with a history of COPD, oxygen dependent, evaluated for fever. He was admitted to the hospital on April 21, 2017, with 6 hours of epistaxis. He was admitted to the hospital where he required a transfusion of packed red blood cells. The patients course has been complicated by fever to 100.9. In the medical records, his temperature was recorded at 99.9. However, the nurse and patient state that the temperature was as high as 100.9. He denies any shaking chills. He otherwise was feeling well. He denies any chest pain, worsening shortness of breath or cough. No vomiting or diarrhea. No dysuria. He recently completed a course of Levaquin and prednisone for an upper respiratory tract infection. PAST MEDICAL HISTORY: Positive for COPD oxygen dependent with a left upper lobe cavity, history of coronary artery disease, myocardial infarction, congestive heart failure, hyperlipidemia, pulmonary hypertension. PAST SURGICAL HISTORY: Status post umbilical hernia and appendectomy. ALLERGIES: To AVELOX and TUDORZA. SOCIAL HISTORY: He lives at home with his family. He is a former smoker. He denies recent hospitalizations. LABORATORY DATA: White count 6.5, hematocrit 29.7, platelet count 156. BUN 13, creatinine 0.8. Urinalysis negative. Blood cultures pending, preliminarily negative. MEDICATIONS: Ventolin, Brovana, aspirin, Lasix, Flomax, Spiriva, Xanax, Lipitor. PHYSICAL EXAMINATION: General: He is awake and alert. He is not acutely toxic-appearing, in no acute respiratory distress. He appears comfortable on room air. Vital signs: Temperature 98.1, maximum temperature in the medical records 99.9, however, nurse and patient report temperature of 100.9 maximum temperature, blood pressure 104/50, pulse 84 regular, respirations 20 per minute. HEENT: Sclerae anicteric. Heart: Heart sounds S1, S2. Lungs: Diminished breath sounds bilaterally. Abdomen: Soft. No tenderness elicited. No mass, rebound, or rigidity. Extremities: Negative for edema. IMPRESSION: 1. Low-grade fever. 2. Epistaxis, resolved. 3. Chronic obstructive pulmonary disease. Source of low-grade fever not clear. Will await blood cultures, obtain chest x-ray. Will observe off of antibiotic therapy at this time unless patient has recurrent fever. Thank you for the kind referral. Ti [id number]
[2017-04-23] MEDS: ARFORMOTEROL TARTRATE 15 MCG/2 ML VIAL NEB SCH (09:50)
--- NOTE | 2017-04-23 10:41 | DS ---
Physical Examination Vital Signs: Vital Signs Temperature 98.2 F 04/23/17 09:06 Pulse Rate 75 04/23/17 09:06 Respiratory Rate 20 04/23/17 09:06 Blood Pressure 126/56 04/23/17 09:06 O2 Sat by Pulse Oximetry (%) 99 04/23/17 06:00 Findings/Remarks: FEELS BETTER NO BLEEDING Cardiovascular: Yes: Regular Rate and Rhythm Respiratory: Yes: Regular, CTA Bilaterally Gastrointestinal: Yes: Normal Bowel Sounds, Soft Labs: CBC, BMP 04/22/17 17:30 04/22/17 06:30 Discharge Summary Reason For Visit: ANEMIA Current Active Problems Anemia (Acute) Epistaxis, recurrent (Acute) NSAID long-term use (Acute) Hospital Course: 66-year-old male with history of COPD O2 dependent also on daily baby aspirin with history of recurring epistaxis and multiple visits for epistaxis p/w epistaxis. Pt reports that his home O2 causes his nose to dry out and he often develops crusting in his nose which forces him to pick at it. He reports about 6 hours ago he was attempting to remove some of the crust in his nose when he accidentally cut himself and began to bleed from his L nostril. He reports persistent bleeding since then despite pressure with some clots. He reports that this often occurs in the setting of his nose being dry from his home O2 and that intermittently uses sesame oil to help lubricate but he hasn't used that in the last few days. Denies any recent fevers, chills, chest pain, shortness of breath, abdominal pain. He reports nausea now due to the blood in the back of his oropharynx. He denies any headaches, weakness, numbness. His who is at the bedside reports that he appears pale. per patient nost bleed started at 2:30 in am and lasted for 6 hours he even reports a blood clot in back of his throat in ER he was foudn tacycardic on ambulation and h/h from 11( 03/07/17) and today is 01/22 History Source: Patient - Past Medical History Cardiovascular: Yes: CHF, Hyperlipdemia, Pulmonary Hypertension Pulmonary: Yes: COPD (home oxygen), Previously Intubated (intubated one time several years ago for respiratory failure) Gastrointestinal: Yes: GERD Renal/: Yes: Renal Calculi, UTI - Smoking History Smoking history: Former smoker - Problems (1) Anemia Assessment/Plan: monitor 24 hrs for further epistaxis transfuse one unit prbc today lasix gi consult Need to r/o GI sources of anemia. Neoplasm, PUD, NSAID-related gastritis, ulcer , etc. Plan EGD and colonoscopy as OP next week Avoid NSAIDs PPI po qam, 30m in before breakfast. Code(s): D64.9 - ANEMIA, UNSPECIFIED (2) Epistaxis, recurrent Assessment/Plan: humidified oxygen monitor for epistaxis ent Code(s): R04.0 - EPISTAXIS (3) COPD (chronic obstructive pulmonary disease) Assessment/Plan: oxygen bronchodilators pulm consult Code(s): J44.9 - CHRONIC OBSTRUCTIVE PULMONARY DISEASE, UNSPECIFIED (4) Hyperlipidemia Assessment/Plan: statin Code(s): E78.5 - HYPERLIPIDEMIA, UNSPECIFIED Qualifiers: (5) BPH (benign prostatic hypertrophy) Assessment/Plan: flomax Code(s): N40.0 - BENIGN PROSTATIC HYPERPLASIA WITHOUT LOWER URINRY TRACT SYMP Condition: Stable - Instructions Referrals: Mony Leslie MD [Primary Care Provider] - Bert Guerra MD [Staff Physician] - Disposition: HOME - Home Medications Comprehensive Discharge Medication List: Ambulatory Orders Albuterol Sulfate Inhaler - [Ventolin HFA Inhaler -] 2 inh PO Q4H 02/08/14 Arformoterol Tartrate [Brovana] 15 mcg IH BID 02/08/14 Aspirin [ASA -] 81 mg PO DAILY 02/08/14 Furosemide [Lasix -] 20 mg PO PRN 02/08/14 Tamsulosin HCl [Flomax -] 0.4 mg PO DAILY 02/08/14 Tiotropium [place] [Spiriva] 1 inh PO DAILY 02/08/14 Beclomethasone Dipropionate [Qvar] 8.7 gm IH DAILY 01/09/16 Alprazolam [Xanax] 0.25 mg PO BID #20 tablet MDD 2 01/18/16 Atorvastatin Ca [Lipitor] 10 mg PO DAILY 08/30/16 Polyethylene Glycol 3350 [Miralax 119 gm Btl -] 17 gm PO DAILY PRN #1 bottle 10/15 Prednisone 40 mg PO DAILY #100 tablet 09/03/16 Peg 3350/Na Sulf,Bicarb,Cl/KCl [Golytely Solution] 4,000 ml PO ONCE 1 Days #1 soln.recon 04/22/17
[2017-04-23 11:05] VITALS: PULSE 74
[2017-04-23] MEDS: SODIUM CHLORIDE NASAL SPRAY 44 ML BOTTLE NS SCH (11:15)
== END 2017-04-23 11:34 | disposition home or self-care (01) ==
LOC: JER 06:39 → JERBED 14:27 → J4S 16:13
PROVIDERS: ADMIT Student in an Organized Health Care Education/Training Program; ATTEND Student in an Organized Health Care Education/Training Program
PROC: 30233N1 Transfusion of Nonautologous Red Blood Cells into Peripheral Vein, Percutaneous Approach (ICD-10-PCS; principal; 2017-04-21)
PROC: 3E033GC Introduction of Other Therapeutic Substance into Peripheral Vein, Percutaneous Approach (ICD-10-PCS; 2017-04-21)
PROC: 3E0337Z Introduction of Electrolytic and Water Balance Substance into Peripheral Vein, Percutaneous Approach (ICD-10-PCS; 2017-04-21)
PROC: 3E0F7GC Introduction of Other Therapeutic Substance into Respiratory Tract, Via Natural or Artificial Opening (ICD-10-PCS; 2017-04-21)
PROC: 3E0F7GC Introduction of Other Therapeutic Substance into Respiratory Tract, Via Natural or Artificial Opening (ICD-10-PCS; 2017-04-21)
DX: D64.9 Anemia, unspecified (principal); R04.0 Epistaxis; I10 Essential (primary) hypertension; I27.20 Pulmonary hypertension, unspecified; I25.2 Old myocardial infarction; I50.9 Heart failure, unspecified; E78.5 Hyperlipidemia, unspecified; J44.9 Chronic obstructive pulmonary disease, unspecified; K21.9 Gastro-esophageal reflux disease without esophagitis; N40.0 Benign prostatic hyperplasia without lower urinary tract symptoms; R50.9 Fever, unspecified; R00.1 Bradycardia, unspecified; Z88.8 Allergy status to other drugs, medicaments and biological substances; Z91.013 Allergy to seafood; Z99.81 Dependence on supplemental oxygen; Z79.82 Long term (current) use of aspirin; Z87.442 Personal history of urinary calculi; Z87.891 Personal history of nicotine dependence; Z79.1 Long term (current) use of non-steroidal anti-inflammatories (NSAID)
CPT/HCPCS: 36415; 36430; 71010-TC; 76775-TC; 80053; 81003; 82550; 83735; 84100; 84484; 85025; 85610; 86850; 86900; 86901; 86922; 87040; 87081; 93005; 93010; 94640; 99285-25; G0378; P9038; P9058

== ENCOUNTER 2017-04-25 19:42 | Inpatient (IN) | payer BC ==
[2017-04-25] MEDS ORDERED: AMOX TR/POT CLAV 875MG/125MG TABLETS (FP) PO ONE (20:36)
[2017-04-25] MEDS ORDERED: IBUPROFEN 400 MG TABLET (FP) PO ONE (20:36)
[2017-04-25] MEDS ORDERED: ACETAMINOPHEN 325 MG TABLET (FP) PO ONE (20:38)
[2017-04-25 21:19] VITALS: BMI 21.7
[2017-04-25] MEDS ORDERED: AMOX TR/POT CLAV 875MG/125MG TABLETS (FP) ONE (21:30)
[2017-04-25] MEDS ORDERED: ACETAMINOPHEN 325 MG TABLET (FP) ONE (21:30)
[2017-04-25] MEDS ORDERED: ACETAMINOPHEN 650 MG/20.3 ML ORAL SOLUTION (CUPS) ONE (21:33)
[2017-04-25 21:36] LABS: VENOUS PH 7.45 (7.32-7.42)
[2017-04-25 21:37] LABS: VENOUS BLOOD GAS HCO3 30.3 meq/L (19-25)
[2017-04-25 21:45] LABS: BASOPHIL 0.2 % (0-2.0); EOSINOPHIL 1.4 % (0-4.5); MCH 28.8 pg (25.7-33.7); MCHC 32.9 g/dl (32.0-35.9); MEAN CELL VOLUME 87.4 fl (80-96); MEAN PLT VOLUME 8.8 fl (7.5-11.1); PLATELET COUNT 168 K/MM3 (134-434); RDW 14.3 % (11.9-15.9); WHITE BLOOD COUNT 11.3 K/mm3 (4.0-10.0)
[2017-04-25 21:58] LABS: INR 1.24 (0.82-1.09)
[2017-04-25 22:04] LABS: ALBUMIN 3.2 g/dl (3.4-5.0); ANION GAP 7 (8-16); BILIRUBIN,TOTAL 0.8 mg/dL (0.2-1.0); CALCIUM 8.1 mg/dL (8.5-10.1); CO2 32 mmol/L (21-32); CREATININE 0.7 mg/dL (0.7-1.3); GLUCOSE,RANDOM 86 mg/dL (74-106); MAGNESIUM 1.9 mg/dL (1.8-2.4); PHOSPHOROUS 1.9 mg/dL (2.5-4.9); SGOT/AST 11 U/L (15-37); SGPT/ALT 15 U/L (12-78); TOT PROT 6.5 g/dl (6.4-8.2)
[2017-04-25 22:07] LABS: ALK PHOS 61 U/L (45-117)
[2017-04-25 22:11] LABS: CPK 28 IU/L (39-308); TROPONIN I < 0.02 ng/ml (0.00-0.05)
[2017-04-25 22:33] LABS: URINE APPEARANCE SLCLOUDY; URINE BILIRUBIN NEGATIVE (NEGATIVE); URINE BLOOD 1+ (NEGATIVE); URINE COLOR YELLOW; URINE GLUCOSE (UA) NEGATIVE (NEGATIVE); URINE KETONE 1+ (NEGATIVE); URINE NITRITE NEGATIVE (NEGATIVE); URINE UROBILINOGEN 4.0 E.U/dl mg/dL (0.2-1.0)
[2017-04-25 22:40] LABS: URINE PROTEIN 1+ (NEGATIVE)
[2017-04-25] MEDS ORDERED: PIPERACILLIN/TAZOB 3.375 GM 50 ML IVPB ONE (22:40)
[2017-04-25 22:41] LABS: URINE BACTERIA MODERATE /hpf (NONE SEEN); URINE MUCUS RARE; URINE RBC 42 /hpf (0-3); URINE WBC 1 /hpf (3-5)
[2017-04-25] MEDS ORDERED: AZITHROMYCIN IVPB 500 MG in DEXTROSE 5%-WATER - 250 ML IVPB ONE (22:42)
[2017-04-25] MEDS ORDERED: methylPREDNISolone NA SUCC 125 MG/2 ML VIAL IVPB ONE (22:48)
--- NOTE | 2017-04-25 22:48 | PDOC ---
History of Present Illness - General History Source: Patient, Old Records Exam Limitations: No Limitations - History of Present Illness Initial Comments: 04/25/17 23:12 The patient is a 66 year old male with past medical history of hypertension, hyperlipidemia CHF, COPD (on 2L O2 at home), pulmonary hypertension, GERD, and recurrent nosebleeds who presents to the ED with complaints of fever that began yesterday. As per , the patient noticed the fever yesterday and went to his PCP. He was subsequently placed on Augmentin. They report that the fever has gotten higher, despite treating with Tylenol at home, Tmax 102.6 in the ED. He additionally complains of a chronic right sided chest pain that occurs only upon deep inspiration. He reports that the pain also radiates to his scapula. He denies any nausea, vomiting, diarrhea, or urinary symptoms. PCP: Mony Leslie Project Scientist: Luiz Sharp Regional Driver: Peter Mckee ID: Keith Vanegas <Joan Stoll - Last Filed: 04/25/17 23:12> - General History Source: Patient, Old Records Exam Limitations: No Limitations <Tommy Jimenez - Last Filed: 04/26/17 01:20> - General Chief Complaint: Respiratory Stated Complaint: CHEST PAIN Time Seen by Provider: 04/25/17 20:06 Past History <Joan Stoll - Last Filed: 04/25/17 23:12> - Past Medical History Anemia: No Asthma: No Cancer: No Cardiac Disorders: Yes (DC, CHF) CVA: No COPD: Yes (o2 at home) CHF: Yes Dementia: No Diabetes: No GI Disorders: Yes (umbilical hernia x 2) Disorders: Yes (UTI) HTN: Yes (FLUCTUATE) Hypercholesterolemia: Yes Kidney Stones: Yes Seizures: No Thyroid Disease: No - Surgical History Abdominal Surgery: No Appendectomy: No Cardiac Surgery: No Cholecystectomy: No Lung Surgery: No Neurologic Surgery: No Orthopedic Surgery: No - Suicide/Smoking/Psychosocial Hx Smoking Status: No Smoking History: Former smoker Have you smoked in the past 12 months: No Number of Cigarettes Smoked Daily: 40 If you are a former smoker, when did you quit?: many years ago Information on smoking cessation initiated: No Hx Alcohol Use: No Drug/Substance Use Hx: No Substance Use Type: None Hx Substance Use Treatment: No <Tommy Jimenez - Last Filed: 04/26/17 01:20> - Past Medical History Allergies/Adverse Reactions: Allergies Allergy/AdvReac Type Severity Reaction Status Date / Time moxifloxacin HCl Allergy Severe Verified 04/21/17 06:54 [From Avelox] aclidinium bromide Allergy Verified 04/21/17 06:54 [From Tudorza Pressair] shellfish derived Allergy Verified 04/21/17 06:54 Home Medications: Ambulatory Orders Albuterol Sulfate Inhaler - [Ventolin HFA Inhaler -] 2 inh PO Q4H 02/08/14 Arformoterol Tartrate [Brovana] 15 mcg IH BID 02/08/14 Aspirin [ASA -] 81 mg PO DAILY 02/08/14 Furosemide [Lasix -] 20 mg PO PRN 02/08/14 Tamsulosin HCl [Flomax -] 0.4 mg PO DAILY 02/08/14 Tiotropium [place] [Spiriva] 1 inh PO DAILY 02/08/14 Beclomethasone Dipropionate [Qvar] 8.7 gm IH DAILY 01/09/16 Alprazolam [Xanax] 0.25 mg PO BID #20 tablet MDD 2 01/18/16 Atorvastatin Ca [Lipitor] 10 mg PO DAILY 08/30/16 Polyethylene Glycol 3350 [Miralax 119 gm Btl -] 17 gm PO DAILY PRN #1 bottle 10/15 Prednisone 40 mg PO DAILY #100 tablet 09/03/16 Peg 3350/Na Sulf,Bicarb,Cl/KCl [Golytely Solution] 4,000 ml PO ONCE 1 Days #1 soln.recon 04/22/17 Review of Systems - Review of Systems Able to Perform ROS?: Yes Comments:: 04/25/17 23:12 GENERAL/CONSTITUTIONAL: Present: fever No weakness. HEAD, EYES, EARS, NOSE AND THROAT: No change in vision. No ear pain or discharge. No sore throat. CARDIOVASCULAR: Present: chest pain No shortness of breath. RESPIRATORY: No cough, wheezing, or hemoptysis. GASTROINTESTINAL: No nausea, vomiting, diarrhea or constipation. GENITOURINARY: No dysuria, frequency, or change in urination. MUSCULOSKELETAL: No joint or muscle swelling or pain. No neck or back pain. SKIN: No rash NEUROLOGIC: No headache, vertigo, loss of consciousness, or change in strength/ sensation. ENDOCRINE: No increased thirst. No abnormal weight change. HEMATOLOGIC/LYMPHATIC: No anemia, easy bleeding, or history of blood clots. ALLERGIC/IMMUNOLOGIC: No hives or skin allergy. All Other Systems: Reviewed and Negative <Joan Stoll - Last Filed: 04/25/17 23:12> *Physical Exam - Vital Signs Last Vital Signs Temp Pulse Resp BP Pulse Ox 102.6 F H 106 H 20 123/67 100 04/25/17 20:12 04/25/17 20:12 04/25/17 20:12 04/25/17 20:12 04/25/17 20:12 - Physical Exam Comments: 04/25/17 23:16 GENERAL: Awake, alert, and fully oriented, in no acute distress HEAD: No signs of trauma EYES: PERRLA, EOMI, sclera anicteric, conjunctiva clear ENT: Auricles normal inspection, hearing grossly normal, nares patent, oropharynx clear without exudates. Moist mucosa NECK: Normal ROM, supple, no lymphadenopathy, JVD, or masses LUNGS: Breath sounds equal, clear to auscultation bilaterally. No wheezes, and no crackles HEART: Regular rate and rhythm, normal S1 and S2, no murmurs, rubs or gallops ABDOMEN: Soft, nontender, normoactive bowel sounds. No guarding, no rebound. No masses EXTREMITIES: Normal range of motion, no edema. No clubbing or cyanosis. No cords, erythema, or tenderness NEUROLOGICAL: Cranial nerves II through XII grossly intact. Normal speech, normal gait SKIN: Warm, Dry, normal turgor, no rashes or lesions noted. <Joan Stoll - Last Filed: 04/25/17 23:12> - Vital Signs Last Vital Signs Temp Pulse Resp BP Pulse Ox 102.6 F H 106 H 20 123/67 100 04/25/17 20:12 04/25/17 20:12 04/25/17 20:12 04/25/17 20:12 04/25/17 20:12 <Tommy Jimenez - Last Filed: 04/26/17 01:20> Heart Score/ECG Review #1 ECG reviewed & interpreted by me at: 20:00 04/25/17 23:05 NSR 107, RBBB, no std/teresa, QTC 453 msec <Tommy Jimenez - Last Filed: 04/26/17 01:20> ED Treatment Course - LABORATORY CBC & Chemistry Diagram: 04/25/17 21:18 04/25/17 21:18 - ADDITIONAL ORDERS Additional order review: Laboratory Results 04/25/17 04/25/17 04/25/17 22:26 21:18 21:18 PT with INR INR PTT (Actin FS) VBG pH POC VBG pCO2 POC VBG pO2 Mixed VBG HCO3 Sodium Potassium Chloride Carbon Dioxide Anion Gap BUN Creatinine Creat Clearance w eGFR Random Glucose Lactic Acid 1.1 Calcium Phosphorus Magnesium Total Bilirubin AST ALT Alkaline Phosphatase Creatine Kinase Troponin I B-Natriuretic Peptide Total Protein Albumin Urine Color Yellow Urine Appearance Slcloudy Urine pH 6.0 Ur Specific [place] 1.018 Urine Protein 1+ H Urine Glucose (UA) Negative Urine Ketones 1+ H Urine Blood 1+ H Urine Nitrite Negative Urine Bilirubin Negative Urine Urobilinogen 4.0 e.u/dl Urine WBC (Auto) 1 Urine RBC (Auto) 42 Urine Bacteria Moderate Urine Mucus Rare Blood Type B POSITIVE Antibody Screen Negative 04/25/17 04/25/17 04/25/17 21:18 21:18 21:18 PT with INR 14.00 H INR 1.24 H PTT (Actin FS) 25.0 L D VBG pH 7.45 H D POC VBG pCO2 44.7 D POC VBG pO2 29.6 Mixed VBG HCO3 30.3 H Sodium Potassium Chloride Carbon Dioxide Anion Gap BUN Creatinine Creat Clearance w eGFR Random Glucose Lactic Acid Calcium Phosphorus Magnesium Total Bilirubin AST ALT Alkaline Phosphatase Creatine Kinase 28 L Troponin I < 0.02 B-Natriuretic Peptide Total Protein Albumin Urine Color Urine Appearance Urine pH Ur Specific [place] Urine Protein Urine Glucose (UA) Urine Ketones Urine Blood Urine Nitrite Urine Bilirubin Urine Urobilinogen Urine WBC (Auto) Urine RBC (Auto) Urine Bacteria Urine Mucus Blood Type Antibody Screen 04/25/17 21:18 PT with INR INR PTT (Actin FS) VBG pH POC VBG pCO2 POC VBG pO2 Mixed VBG HCO3 Sodium 138 Potassium 4.0 Chloride 99 Carbon Dioxide 32 Anion Gap 7 L BUN 11 Creatinine 0.7 Creat Clearance w eGFR > 60 Random Glucose 86 Lactic Acid Calcium 8.1 L Phosphorus 1.9 L D Magnesium 1.9 Total Bilirubin 0.8 D AST 11 L ALT 15 Alkaline Phosphatase 61 Creatine Kinase Troponin I B-Natriuretic Peptide 90.14 Total Protein 6.5 D Albumin 3.2 L Urine Color Urine Appearance Urine pH Ur Specific [place] Urine Protein Urine Glucose (UA) Urine Ketones Urine Blood Urine Nitrite Urine Bilirubin Urine Urobilinogen Urine WBC (Auto) Urine RBC (Auto) Urine Bacteria Urine Mucus Blood Type Antibody Screen 04/25/17 21:18 RBC 3.75 L MCV 87.4 MCHC 32.9 RDW 14.3 MPV 8.8 Neutrophils % 82.0 Lymphocytes % 7.4 L D Monocytes % 9.0 Eosinophils % 1.4 Basophils % 0.2 - Medications Given in the ED: ED Medications Discontinued Medications Generic Name Dose Route Start Last Admin Trade Name Lawrenceq PRN Reason Stop Dose Admin Acetaminophen 650 mg 04/25/17 20:38 04/25/17 21:35 Tylenol - PO 04/25/17 20:39 650 mg ONCE ONE Administration Amoxicillin/Clavulanate Potassium 1 tab 04/25/17 20:36 04/25/17 21:35 Augmentin - 875mg Tablet PO 04/25/17 20:37 1 tab ONCE ONE Administration Ibuprofen 400 mg 04/25/17 20:36 04/25/17 21:36 Motrin - PO 04/25/17 20:37 Not Given ONCE ONE <Joan Stoll - Last Filed: 04/25/17 23:12> - LABORATORY CBC & Chemistry Diagram: 04/25/17 21:18 04/25/17 21:18 - ADDITIONAL ORDERS Additional order review: Laboratory Results 04/25/17 04/25/17 04/25/17 22:26 21:18 21:18 PT with INR INR PTT (Actin FS) VBG pH POC VBG pCO2 POC VBG pO2 Mixed VBG HCO3 Sodium Potassium Chloride Carbon Dioxide Anion Gap BUN Creatinine Creat Clearance w eGFR Random Glucose Lactic Acid 1.1 Calcium Phosphorus Magnesium Total Bilirubin AST ALT Alkaline Phosphatase Creatine Kinase 28 L Troponin I < 0.02 B-Natriuretic Peptide Total Protein Albumin Urine Color Yellow Urine Appearance Slcloudy Urine pH 6.0 Ur Specific [place] 1.018 Urine Protein 1+ H Urine Glucose (UA) Negative Urine Ketones 1+ H Urine Blood 1+ H Urine Nitrite Negative Urine Bilirubin Negative Urine Urobilinogen 4.0 e.u/dl Urine WBC (Auto) 1 Urine RBC (Auto) 42 Urine Bacteria Moderate Urine Mucus Rare 04/25/17 04/25/17 04/25/17 21:18 21:18 21:18 PT with INR 14.00 H INR 1.24 H PTT (Actin FS) 25.0 L D VBG pH 7.45 H D POC VBG pCO2 44.7 D POC VBG pO2 29.6 Mixed VBG HCO3 30.3 H Sodium 138 Potassium 4.0 Chloride 99 Carbon Dioxide 32 Anion Gap 7 L BUN 11 Creatinine 0.7 Creat Clearance w eGFR > 60 Random Glucose 86 Lactic Acid Calcium 8.1 L Phosphorus 1.9 L D Magnesium 1.9 Total Bilirubin 0.8 D AST 11 L ALT 15 Alkaline Phosphatase 61 Creatine Kinase Troponin I B-Natriuretic Peptide 90.14 Total Protein 6.5 D Albumin 3.2 L Urine Color Urine Appearance Urine pH Ur Specific [place] Urine Protein Urine Glucose (UA) Urine Ketones Urine Blood Urine Nitrite Urine Bilirubin Urine Urobilinogen Urine WBC (Auto) Urine RBC (Auto) Urine Bacteria Urine Mucus 04/25/17 21:18 RBC 3.75 L MCV 87.4 MCHC 32.9 RDW 14.3 MPV 8.8 Neutrophils % 82.0 Lymphocytes % 7.4 L D Monocytes % 9.0 Eosinophils % 1.4 Basophils % 0.2 - RADIOLOGY Radiology Studies Ordered: Category Date Time Status CHEST CTA [CT] Stat CT Scan 04/25/17 20:35 Ordered CHEST X-RAY PORTABLE* [RAD] Stat Radiology 04/25/17 20:34 Taken - Medications Given in the ED: ED Medications Discontinued Medications Generic Name Dose Route Start Last Admin Trade Name Lawrenceq PRN Reason Stop Dose Admin Acetaminophen 650 mg 04/25/17 20:38 04/25/17 21:35 Tylenol - PO 04/25/17 20:39 650 mg ONCE ONE Administration Amoxicillin/Clavulanate Potassium 1 tab 04/25/17 20:36 04/25/17 21:35 Augmentin - 875mg Tablet PO 04/25/17 20:37 1 tab ONCE ONE Administration Ibuprofen 400 mg 04/25/17 20:36 04/25/17 21:36 Motrin - PO 04/25/17 20:37 Not Given ONCE ONE <Tommy Jimenez - Last Filed: 04/26/17 01:20> Medical Decision Making - Medical Decision Making 04/25/17 23:18 11:00 Phone call placed to patient's PCP, Dr. Leslie who returned phone call promptly. Case was discussed. <Joan Stoll - Last Filed: 04/25/17 23:12> - Medical Decision Making 04/25/17 22:53 A portion of this note was documented by scribe services under my direction. I have reviewed the details of the note, within reason, and agree with the documentation with the following case summary and management plan written by me. Patient treated in the ED. Nursing notes are reviewed and incorporated into the medical decision-making. Vital signs reviewed. Peripheral IV access obtained by the nurse, laboratory studies are drawn and sent, reviewed and interpreted by myself. Vital Signs Temp Pulse Resp BP Pulse Ox 102.6 F H 106 H 20 123/67 100 04/25/17 20:12 04/25/17 20:12 04/25/17 20:12 04/25/17 20:12 04/25/17 20:12 66 year old male with Past medical history of COPD on chronic home oxygen with 2 L of nasal cannula, congestive heart failure, hyperlipidemia, pulmonary hypertension, GERD, urinary tract infection presents to the emergency department for chest pain and persistent fevers. 2 days ago, the patient was initiated on Augmentin for fevers reportedly by Dr. Farley. Patient denied any worsening coughing, vomiting, diarrhea, dysuria. Patient has been treated prior before for his cavitary lesion in his lung. Noted that the fevers occurring daily and today, he has been complaining about chronic pleuritic right-sided chest pain. Given the chest pain, the patient return to the ED. Denies any epistaxis at this time. States that this pleuritic chest pain has been chronic. Adult sepsis protocol initiated. Empiric zosyn and azithromycin ordered at request of Dr. Leslie. It is unclear what the fever is coming from, and may potentially be from the lungs. States has had a prior history of PE, however, not on anticoagulation. Will obtain a CT chest to r/o PE. Given hx of shellfish allergy, will premedicate with IV solu-medrol and benadryl. Ultimately, will admit the patient. 04/26/17 01:18 CBC, BMP 04/25/17 21:18 04/25/17 21:18 CMP Sodium 138 mmol/L (136-145) 04/25/17 21:18 Potassium 4.0 mmol/L (3.5-5.1) 04/25/17 21:18 Chloride 99 mmol/L (98-107) 04/25/17 21:18 Carbon Dioxide 32 mmol/L (21-32) 04/25/17 21:18 Anion Gap 7 (8-16) L 04/25/17 21:18 BUN 11 mg/dL (7-18) 04/25/17 21:18 Creatinine 0.7 mg/dL (0.7-1.3) 04/25/17 21:18 Creat Clearance w eGFR > 60 (>60) 04/25/17 21:18 Random Glucose 86 mg/dL (74-106) 04/25/17 21:18 Lactic Acid 1.1 mmol/L (0.4-2.0) 04/25/17 21:18 Calcium 8.1 mg/dL (8.5-10.1) L 04/25/17 21:18 Phosphorus 1.9 mg/dL (2.5-4.9) L D 04/25/17 21:18 Magnesium 1.9 mg/dL (1.8-2.4) 04/25/17 21:18 Total Bilirubin 0.8 mg/dL (0.2-1.0) D 04/25/17 21:18 AST 11 U/L (15-37) L 04/25/17 21:18 ALT 15 U/L (12-78) 04/25/17 21:18 Alkaline Phosphatase 61 U/L (45-117) 04/25/17 21:18 Creatine Kinase 28 IU/L (39-308) L 04/25/17 21:18 Troponin I < 0.02 ng/ml (0.00-0.05) 04/25/17 21:18 B-Natriuretic Peptide 90.14 pg/ml (5-125) 04/25/17 21:18 Total Protein 6.5 g/dl (6.4-8.2) D 04/25/17 21:18 Albumin 3.2 g/dl (3.4-5.0) L 04/25/17 21:18 Urine Test Results Urine Color Yellow 04/25/17 22:26 Urine Appearance Slcloudy 04/25/17 22:26 Urine pH 6.0 (5.0-8.0) 04/25/17 22:26 Ur Specific [place] 1.018 (1.001-1.035) 04/25/17 22:26 Urine Protein 1+ (NEGATIVE) H 04/25/17 22:26 Urine Glucose (UA) Negative (NEGATIVE) 04/25/17 22:26 Urine Ketones 1+ (NEGATIVE) H 04/25/17 22:26 Urine Blood 1+ (NEGATIVE) H 04/25/17 22:26 Urine Nitrite Negative (NEGATIVE) 04/25/17 22:26 Urine Bilirubin Negative (NEGATIVE) 04/25/17 22:26 Urine Bacteria Moderate /hpf (NONE SEEN) 04/25/17 22: Urine Mucus Rare 04/25/17 22:26 Labs reviewed. I discussed the case with Dr. Leslie regarding my concerns for persistent fevers despite taking outpatient Augmentin. Given that I have no reliable source of infection, we had initiated Zosyn and azithromycin. CAT scan the chest is still pending. Case discussed in detail with admitting physician including history, physical exam and ancillary studies. Admitting physician has assumed care for the patient, will follow all pending diagnostics and will complete the evaluation and treatment. <Tommy Jimenez - Last Filed: 04/26/17 01:20> *DC/Admit/Observation/Transfer - Attestations Scribe Attestion: 04/25/17 23:16 Documentation prepared by Joan Stoll, acting as medical fee clerk for Tommy Jimenez MD. <Joan Stoll - Last Filed: 04/25/17 23:12> - Discharge Dispostion Admit: Yes <Tommy Jimenez - Last Filed: 04/26/17 01:20> Diagnosis at time of Disposition: Fever Qualifiers: Fever type: unspecified Qualified Code(s): R50.9 - Fever, unspecified - Discharge Dispostion Condition at time of disposition: Stable
[2017-04-25] MEDS ORDERED: methylPREDNISolone NA SUCC 125 MG/2 ML VIAL ONE (23:05)
[2017-04-25] MEDS ORDERED: AZITHROMYCIN IVPB 500 MG in DEXTROSE 5%-WATER - 250 ML IVPB SCH (23:15)
[2017-04-25] MEDS ORDERED: AZITHROMYCIN IVPB 250 ML IVPB ONE (23:17)
[2017-04-26] MEDS: ALBUTEROL SO4 0.083% IH SOL 2.5 MG/3 ML VIAL.NEB. NEB SCH ×5 (01:06→23:37)
[2017-04-26] MEDS ORDERED: PIPERACILLIN/TAZOB 4.5 GM 4.5 GM/100 ML BAG IVPB ONE (01:24)
[2017-04-26] MEDS ORDERED: PIPERACILLIN/TAZOB 4.5 GM/100 ML PREMIX BAG IVPB ONE (01:25)
[2017-04-26] MEDS ORDERED: ALBUTEROL SO4 0.083% IH SOL 2.5 MG/3 ML VIAL.NEB. NEB ONE ×2 (01:29→06:14)
[2017-04-26] MEDS: HEPARIN NA (PORCINE) 5,000 UNITS/ML 1ML VIAL SQ SCH ×4 (05:45→21:04)
[2017-04-26] MEDS: methylPREDNISolone NA SUCC 40 MG/1 ML VIAL IVPUSH SCH ×4 (05:45→21:03)
[2017-04-26] MEDS ORDERED: methylPREDNISolone NA SUCC 40 MG/1 ML VIAL ONE ×2 (06:14→09:05)
[2017-04-26] MEDS ORDERED: HEPARIN NA (PORCINE) 5,000 UNITS/ML 1ML VIAL ONE (06:14)
[2017-04-26 06:57] LABS: BASOPHIL 0.1 % (0-2.0); MCH 28.7 pg (25.7-33.7); MCHC 32.7 g/dl (32.0-35.9); MEAN CELL VOLUME 87.8 fl (80-96); MEAN PLT VOLUME 8.7 fl (7.5-11.1); NEUTROPHILS 93.7 % (42.8-82.8); PLATELET COUNT 172 K/MM3 (134-434); RDW 13.9 % (11.9-15.9); WHITE BLOOD COUNT 10.9 K/mm3 (4.0-10.0)
[2017-04-26 07:21] LABS: ANION GAP 6 (8-16); CALCIUM 8.2 mg/dL (8.5-10.1); CO2 32 mmol/L (21-32); CREATININE 0.8 mg/dL (0.7-1.3); GLUCOSE,RANDOM 171 mg/dL (74-106); SGOT/AST 8 U/L (15-37); SGPT/ALT 14 U/L (12-78)
[2017-04-26 07:25] LABS: ALK PHOS 63 U/L (45-117); BILIRUBIN,TOTAL 0.9 mg/dL (0.2-1.0); TOT PROT 6.6 g/dl (6.4-8.2); TROPONIN I < 0.02 ng/ml (0.00-0.05)
[2017-04-26] MEDS ORDERED: PIPERACILLIN/TAZOB 3.375 GM/50 ML PRE-DOCKED IVPB ONE (08:00)
[2017-04-26] MEDS: TAMSULOSIN HCL 0.4 MG CAP.ER.24H (FP) PO SCH (09:00)
[2017-04-26] MEDS ORDERED: ALPRAZolam 0.25 MG TABLET ONE (09:05)
[2017-04-26] MEDS ORDERED: TAMSULOSIN HCL 0.4 MG CAP.ER.24H (FP) ONE (09:05)
[2017-04-26] MEDS ORDERED: PIPERACILLIN/TAZOB 3.375 GM 3.375 GM/50 ML BAG IVPB ONE (09:06)
[2017-04-26] MEDS: ARFORMOTEROL TARTRATE 15 MCG/2 ML VIAL NEB SCH ×2 (10:00→21:28)
[2017-04-26] MEDS: ASPIRIN 81 MG CHEWABLE TABLETS PO SCH (10:00)
[2017-04-26] MEDS ORDERED: PIPERACILLIN/TAZOB 3.375 GM/50 ML PRE-DOCKED IVPB SCH ×2 (10:00→11:28)
[2017-04-26] MEDS ORDERED: BECLOMETHASONE DIPROPIONATE IH SCH (10:00)
[2017-04-26] MEDS: ALPRAZolam 0.25 MG TABLET PO SCH ×2 (10:00→21:04)
--- NOTE | 2017-04-26 10:26 | CON.CARD ---
Consult Consult Specialty:: Cardiology Referred by:: Dr. Leslie Reason for Consultation:: Cardiac evaluation - History of Present Illness History of Present Illness: Patient is a 66 year old male well know to our service (sees Dr. Luiz Sharp) with underlying history of coronary artery disease (non-obstructive), hypertension, hypercholesterolemia, congestive heart failure, diastolic LV dysfunction chronic class 1 NYHA classification LV failure, advanced COPD + interstitial lung disease on home oxygen therapy and pulmonary hypertension who presented with fever. He was started on Augmentin by his PMD, however; his fever got worse prompting him to come in to the hospital. He also took Tylenol. He complains of right sided chest discomfort with deep inspiration. CTA of chest did not reveal pulmonary embolism, but showed right lung consolidation. He denies nausea, vomiting, diarrhea or abdominal pain. He denies paroxysmal nocturnal dyspnea or orthopnea. He denies headache or lightheadedness. He complains of intermittent cough with scant sputum and his usual shortness of breath. - History Source History Provided By: Patient, Medical Record Limitations to Obtaining History: No Limitations - Past Medical History Cardio/Vascular: Yes: CAD, CHF, HTN, Hyperlipdemia, Pulmonary Hypertension Pulmonary: Yes: COPD (home oxygen), Previously Intubated (intubated one time several years ago for respiratory failure), Other (Interstitial lung disease) Gastrointestinal: Yes: GERD, Hiatal Hernia Renal/: Yes: Renal Calculi, UTI Additional Medical History: Inguinal hernia. 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 History of Recent Travel: No Home Medications - Allergies Allergies/Adverse Reactions: Allergies Allergy/AdvReac Type Severity Reaction Status Date / Time moxifloxacin HCl Allergy Severe Verified 04/21/17 06:54 [From Avelox] aclidinium bromide Allergy Verified 04/21/17 06:54 [From Tudorza Pressair] shellfish derived Allergy Verified 04/21/17 06:54 - Home Medications Home Medications: Ambulatory Orders Albuterol Sulfate Inhaler - [Ventolin HFA Inhaler -] 2 inh PO Q4H 02/08/14 Arformoterol Tartrate [Brovana] 15 mcg IH BID 02/08/14 Aspirin [ASA -] 81 mg PO DAILY 02/08/14 Furosemide [Lasix -] 20 mg PO PRN 02/08/14 Tamsulosin HCl [Flomax -] 0.4 mg PO DAILY 02/08/14 Tiotropium [place] [Spiriva] 1 inh PO DAILY 02/08/14 Beclomethasone Dipropionate [Qvar] 8.7 gm IH DAILY 01/09/16 Alprazolam [Xanax] 0.25 mg PO BID #20 tablet MDD 2 01/18/16 Atorvastatin Ca [Lipitor] 10 mg PO DAILY 08/30/16 Polyethylene Glycol 3350 [Miralax 119 gm Btl -] 17 gm PO DAILY PRN #1 bottle 10/15 Prednisone 40 mg PO DAILY #100 tablet 09/03/16 Peg 3350/Na Sulf,Bicarb,Cl/KCl [Golytely Solution] 4,000 ml PO ONCE 1 Days #1 soln.recon 04/22/17 Family Disease History - Family Disease History Other Family History: CAD Review of Systems - Review of Systems Constitutional: reports: Fever Cardiovascular: reports: Chest Pain, Shortness of Breath. denies: Palpitations Respiratory: reports: Cough, SOB. denies: Hemoptysis, Orthopnea, PND Gastrointestinal: denies: Abdominal Pain, Constipation, Diarrhea, Melena, Nausea , Rectal Bleeding, Vomiting Genitourinary: denies: Dysuria, Hematuria Neurological: denies: Dizziness, Headache, Seizure, Syncope Vital Signs: Vital Signs Temperature 97.9 F 04/26/17 07:30 Pulse Rate 73 04/26/17 07:30 Respiratory Rate 18 04/26/17 07:30 Blood Pressure 124/57 04/26/17 07:30 O2 Sat by Pulse Oximetry (%) 100 04/26/17 07:30 Neck: Yes: Supple Respiratory: Yes: Diminished Gastrointestinal: Yes: Normal Bowel Sounds, Soft. No: Tenderness Cardiovascular: Yes: Regular Rate and Rhythm JVD: No Carotid Bruit: No PMI: Non-Displaced Heart Sounds: Yes: S1, S2 Murmur: Yes: Systolic Murmur, Grade 1 Edema: No - Other Data Labs, Other Data: CBC, BMP 04/26/17 06:25 04/26/17 06:25 INR, PTT INR 1.24 (0.82-1.09) H 04/25/17 21:18 Troponin, BNP 04/25/17 04/25/17 04/26/17 21:18 21:18 06:25 Troponin I < 0.02 < 0.02 B-Natriuretic Peptide 90.14 Sinus rhythm Problem List - Problems (1) Fever Code(s): R50.9 - FEVER, UNSPECIFIED Qualifiers: Qualified Code(s): R50.9 - Fever, unspecified (2) Acute and chronic respiratory failure Code(s): J96.20 - ACUTE AND CHR RESP FAILURE, UNSP W HYPOXIA OR HYPERCAPNIA Qualifiers: Qualified Code(s): J96.21 - Acute and chronic respiratory failure with hypoxia; J96.22 - Acute and chronic respiratory failure with hypercapnia; J96.22 - Acute and chronic respiratory failure with hypercapnia; J96.22 - Acute and chronic respiratory failure with hypercapnia (3) Arteriosclerotic heart disease (ASHD) Code(s): I25.10 - ATHSCL HEART DISEASE OF [place] CORONARY ARTERY W/O ANG PCTRS (4) COPD (chronic obstructive pulmonary disease) Code(s): J44.9 - CHRONIC OBSTRUCTIVE PULMONARY DISEASE, UNSPECIFIED (5) Hyperlipidemia Code(s): E78.5 - HYPERLIPIDEMIA, UNSPECIFIED Qualifiers: (6) Pneumonia Code(s): J18.9 - PNEUMONIA, UNSPECIFIED ORGANISM Assessment/Plan 1. Clinical presentation suggests pneumomia with pulmonary consolidation, ruled out for PE 2. Advanced COPD and interstitial lung disease on home oxygen therapy 3. Coronary artery disease (non-obstructive), angina pectoris 4. Diastolic LV dysfunction with class 0-1 NYHA LV failure 5. HTN/HCVD 6. Hypercholesterolemia PLAN: 1. Antibiotic coverage 2. Bronchodilator, steroids and O2 3. Continue ASA 81 mg once a day 4. Continue statin therapy 5. Troponin trends are negative. Monitor electrolytes Further plans are to follow Toni Mares MD
[2017-04-26] MEDS ORDERED: AZITHROMYCIN IVPB 250 ML IVPB ONE (10:30)
[2017-04-26] MEDS: AZITHROMYCIN IVPB 500 MG in DEXTROSE 5%-WATER - 250 ML IVPB SCH (10:44)
[2017-04-26 11:30] LABS: URINE LEUK ESTERASE Negative (NEGATIVE)
[2017-04-26] MEDS: TIOTROPIUM BROMIDE 18 MCG/INH (DEVICE W/ 5 CAPSULES) IH SCH (12:24)
--- NOTE | 2017-04-26 14:09 | HP ---
Admitting History and Physical - Admission History of Present Illness: 66 year old male with past medical history of hypertension, hyperlipidemia CHF, COPD (on 2L O2 at home), pulmonary hypertension, GERD, and recurrent nosebleeds who presents to the ED with complaints of fever that began yesterday. As per , the patient noticed the fever yesterday and went to his PCP. He was subsequently placed on Augmentin. They report that the fever has gotten higher, despite treating with Tylenol at home, Tmax 102.6 in the ED. He additionally complains of a chronic right sided chest pain that occurs only upon deep inspiration. He reports that the pain also radiates to his scapula. He denies any nausea, vomiting, diarrhea, or urinary symptoms. - Past Medical History Cardiovascular: Yes: CHF, Hyperlipdemia, Pulmonary Hypertension Pulmonary: Yes: COPD (home oxygen), Previously Intubated (intubated one time several years ago for respiratory failure) Gastrointestinal: Yes: GERD, Hiatal Hernia. 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 History of Recent Travel: No Home Medications - Allergies Allergies/Adverse Reactions: Allergies Allergy/AdvReac Type Severity Reaction Status Date / Time moxifloxacin HCl Allergy Severe Verified 04/21/17 06:54 [From Avelox] aclidinium bromide Allergy Verified 04/21/17 06:54 [From Tudorza Pressair] shellfish derived Allergy Verified 04/21/17 06:54 - Home Medications Home Medications: Ambulatory Orders Albuterol Sulfate Inhaler - [Ventolin HFA Inhaler -] 2 inh PO Q4H 02/08/14 Arformoterol Tartrate [Brovana] 15 mcg IH BID 02/08/14 Aspirin [ASA -] 81 mg PO DAILY 02/08/14 Furosemide [Lasix -] 20 mg PO PRN 02/08/14 Tamsulosin HCl [Flomax -] 0.4 mg PO DAILY 02/08/14 Tiotropium [place] [Spiriva] 1 inh PO DAILY 02/08/14 Beclomethasone Dipropionate [Qvar] 8.7 gm IH DAILY 01/09/16 Alprazolam [Xanax] 0.25 mg PO BID #20 tablet MDD 2 01/18/16 Atorvastatin Ca [Lipitor] 10 mg PO DAILY 08/30/16 Polyethylene Glycol 3350 [Miralax 119 gm Btl -] 17 gm PO DAILY PRN #1 bottle 10/15 Prednisone 40 mg PO DAILY #100 tablet 09/03/16 Peg 3350/Na Sulf,Bicarb,Cl/KCl [Golytely Solution] 4,000 ml PO ONCE 1 Days #1 soln.recon 04/22/17 Review of Systems - Review of Systems Constitutional: reports: Chills, Fever Respiratory: reports: Cough, SOB on Exertion Gastrointestinal: reports: No Symptoms Genitourinary: reports: No Symptoms Musculoskeletal: reports: Back Pain Physical Examination Vital Signs: Vital Signs Temperature 97.9 F 04/26/17 07:30 Pulse Rate 84 04/26/17 13:49 Respiratory Rate 20 04/26/17 10:35 Blood Pressure 107/71 04/26/17 13:49 O2 Sat by Pulse Oximetry (%) 97 04/26/17 13:49 Cardiovascular: Yes: Regular Rate and Rhythm Respiratory: Yes: Diminished, On Nasal O2, Rhonchi Gastrointestinal: Yes: Normal Bowel Sounds, Soft Labs: CBC, BMP 04/26/17 06:25 04/26/17 06:25 Imaging - Results Cat Scan: Report Reviewed Problem List - Problems (1) COPD (chronic obstructive pulmonary disease) Assessment/Plan: IV STEROIDS NEBS ABX NASAL O2 Code(s): J44.9 - CHRONIC OBSTRUCTIVE PULMONARY DISEASE, UNSPECIFIED (2) Pneumonia Assessment/Plan: IV ABX MONITOR ID CONSULT Code(s): J18.9 - PNEUMONIA, UNSPECIFIED ORGANISM (3) Pulmonary cavitary lesion Assessment/Plan: MONITOR Code(s): J98.4 - OTHER DISORDERS OF LUNG
--- NOTE | 2017-04-26 15:17 | PN ---
Progress Note (short form) - Note Progress Note: ID Consult dictated New RUL pneumonia ? Aspiration secondary to recent severe epistaxis Exacerbation COPD Cultures pending Empiric coverage for possible nosocomial/atypical pathogens with zosyn/ zithromax
[2017-04-26] MEDS: PIPERACILLIN/TAZOB 3.375 GM 3.375 GM in DEXTROSE 5%-WATER - 50 ML IVPB SCH (17:41)
--- NOTE | 2017-04-26 17:48 | CONS ---
DATE OF CONSULTATION: 04/26/2017 Patient evaluated for pneumonia. Patient was hospitalized at [facility] from April 21 to April 23 with severe epistaxis. He had developed severe epistaxis to the point where he required transfusion of 2 units of packed red blood cells. His hospital course at that time was complicated by low-grade temperature. He was observed. He was discharged on April 23, 2017. He reports that post discharge, he continued to have low-grade fever. On the day prior to admission, he developed a higher temperature elevation and it was associated with worsening right-sided pleuritic-type chest pain. In addition, he complained of a cough. He had been prescribed Augmentin without significant improvement. He returned to the emergency room where a chest x-ray showed a new right upper lobe infiltrate. CAT scan confirmed the presence of a new right upper lobe consolidation. He complains of right-sided pleuritic chest pain with cough. He has had a dry cough with little to no sputum production. He denies any hemoptysis. He has not had recurrent epistaxis. PAST MEDICAL HISTORY: Positive for oxygen-dependent COPD, a known left upper lobe lung cavity, coronary artery disease, myocardial infarction, congestive heart failure, hyperlipidemia, pulmonary hypertension. PAST SURGICAL HISTORY: Status post appendectomy and umbilical hernia repair. ALLERGIES: AVELOX AND TUDORZA. SOCIAL HISTORY: He lives at home with his family. He is a former smoker. SYSTEMS REVIEW: Neurologic: No loss of consciousness, seizure activity, focal weakness.Cardiac: As per HPI. Respiratory: As per HPI. Gastrointestinal: Negative vomiting or diarrhea. Genitourinary: Negative for urinary tract infection. LABORATORY DATA: White count 10.9, hematocrit 34.3, platelet count 172. BUN 12, creatinine 0.8. Blood and urine cultures pending. Urinalysis with 1 white cell. PHYSICAL EXAMINATION:General: He is awake and alert. He is seated in bed. He is chronically short of breath, on nasal cannula 02. Vital Signs: T-Max 102.6. Blood pressure 107/71. Pulse 84, regular. Respirations 19 per minute. HEENT: Sclerae anicteric. Cardiac: Heart sounds S1, S2. Lungs: Diminished breath sounds throughout both lung carmona. Scattered rhonchi. No wheezing. Abdomen: Soft. No tenderness elicited. Extremities: Negative for edema. IMPRESSION: 1. New right upper lobe pneumonia. Possible aspiration secondary to recent severe epistaxis. 2. Exacerbation of chronic obstructive pulmonary disease. 3. Known history of left upper lobe cavitary lung lesion. PLAN: Cultures pending. Empiric antibiotic coverage for possible nosocomial respiratory tract pathogens as well as possible atypical respiratory tract pathogens with Zosyn and Zithromax. Continue supplemental oxygen, inhaled bronchodilators, intravenous corticosteroids. Will follow. Thank you for the kind referral. GINA ESPINOZA M.D. [id number]
[2017-04-26] MEDS: ATORVASTATIN CA 10 MG TABLET (FP) PO SCH (21:04)
[2017-04-27] MEDS ORDERED: PT OWN MED DRAWER 7, Y5N ONE ×4 (01:08→21:58)
[2017-04-27] MEDS: PIPERACILLIN/TAZOB 3.375 GM 3.375 GM in DEXTROSE 5%-WATER - 50 ML IVPB SCH ×3 (01:21→17:19)
[2017-04-27] MEDS: methylPREDNISolone NA SUCC 40 MG/1 ML VIAL IVPUSH SCH ×4 (02:00→22:02)
[2017-04-27] MEDS: HEPARIN NA (PORCINE) 5,000 UNITS/ML 1ML VIAL SQ SCH ×3 (06:08→22:02)
[2017-04-27] MEDS: ALBUTEROL SO4 0.083% IH SOL 2.5 MG/3 ML VIAL.NEB. NEB SCH ×3 (06:39→18:30)
--- NOTE | 2017-04-27 08:50 | PN ---
Progress Note, Physician History of Present Illness: feels better - Current Medication List Current Medications: Active Medications Acetaminophen (Tylenol -) 650 mg PO Q4H PRN PRN Reason: FEVER OR PAIN Albuterol Sulfate (Ventolin 0.083% Nebulizer Soln -) 1 amp NEB QIDR COUNT INCLUDES [facility] Last Admin: 04/27/17 06:39 Dose: 1 amp Alprazolam (Xanax -) 0.25 mg PO BID COUNT INCLUDES [facility] Last Admin: 04/26/17 21:04 Dose: 0.25 mg Arformoterol Tartrate (Brovana (Restricted To Pulmonology/Resp) -) 1 amp NEB BID COUNT INCLUDES [facility] Last Admin: 04/26/17 21:28 Dose: 1 amp Aspirin (Asa -) 81 mg PO DAILY COUNT INCLUDES [facility] Last Admin: 04/26/17 10:00 Dose: 81 mg Atorvastatin Calcium (Lipitor -) 10 mg PO HS COUNT INCLUDES [facility] Last Admin: 04/26/17 21:04 Dose: 10 mg Heparin Sodium (Porcine) (Heparin -) 5,000 unit SQ TID COUNT INCLUDES [facility] Last Admin: 04/27/17 06:08 Dose: Not Given Azithromycin 500 mg/ Dextrose 250 mls @ 250 mls/hr IVPB DAILY COUNT INCLUDES [facility] Last Admin: 04/26/17 10:44 Dose: 250 mls/hr Piperacillin Sod/Tazobactam (Sod 3.375 gm/ Dextrose) 50 mls @ 100 mls/hr IVPB Q8H-IV TA PRN Reason: Protocol Last Admin: 04/27/17 01:21 Dose: 100 mls/hr Methylprednisolone Sodium Succinate (Solu-Medrol -) 40 mg IVPUSH Q6H-IV COUNT [facility]CLUDES [facility] Last Admin: 04/27/17 02:00 Dose: 40 mg Non-Formulary Medication (Beclomethasone Dipropionate [Qvar]) 0 gm IH BID COUNT INCLUDES [facility] Tamsulosin HCl (Flomax -) 0.4 mg PO DAILY@0830 COUNT [facility]CLUDES [facility] Last Admin: 04/26/17 09:00 Dose: 0.4 mg Tiotropium [place] (Spiriva -) 1 puff IH DAILY COUNT [facility]CLUDES [facility] Last Admin: 04/26/17 12:24 Dose: Not Given - Objective Vital Signs: Vital Signs Temperature 97.4 F L 04/27/17 05:30 Pulse Rate 76 04/27/17 05:30 Respiratory Rate 20 04/27/17 05:30 Blood Pressure 98/53 04/27/17 05:30 O2 Sat by Pulse Oximetry (%) 100 04/26/17 22:00 Cardiovascular: Yes: S1, S2 Respiratory: Yes: Rhonchi Gastrointestinal: Yes: Normal Bowel Sounds, Soft Labs: CBC, BMP 04/26/17 06:25 04/26/17 06:25 INR, PTT INR 1.24 (0.82-1.09) H 04/25/17 21:18 Problem List - Problems (1) COPD (chronic obstructive pulmonary disease) Assessment/Plan: IV STEROIDS NEBS ABX NASAL O2 Code(s): J44.9 - CHRONIC OBSTRUCTIVE PULMONARY DISEASE, UNSPECIFIED (2) Pneumonia Assessment/Plan: IV ABX MONITOR ID CONSULT Code(s): J18.9 - PNEUMONIA, UNSPECIFIED ORGANISM (3) Pulmonary cavitary lesion Assessment/Plan: MONITOR Code(s): J98.4 - OTHER DISORDERS OF LUNG
--- NOTE | 2017-04-27 10:12 | PN ---
Progress Note, Physician History of Present Illness: Still dyspneic on exertion, but feels improved, no further epistaxis. - Current Medication List Current Medications: Active Medications Acetaminophen (Tylenol -) 650 mg PO Q4H PRN PRN Reason: FEVER OR PAIN Albuterol Sulfate (Ventolin 0.083% Nebulizer Soln -) 1 amp NEB QIDR [facility] Last Admin: 04/27/17 06:39 Dose: 1 amp Alprazolam (Xanax -) 0.25 mg PO BID [facility] Last Admin: 04/26/17 21:04 Dose: 0.25 mg Arformoterol Tartrate (Brovana (Restricted To Pulmonology/Resp) -) 1 amp NEB BID [facility] Last Admin: 04/26/17 21:28 Dose: 1 amp Aspirin (Asa -) 81 mg PO DAILY [facility] Last Admin: 04/26/17 10:00 Dose: 81 mg Atorvastatin Calcium (Lipitor -) 10 mg PO HS [facility] Last Admin: 04/26/17 21:04 Dose: 10 mg Heparin Sodium (Porcine) (Heparin -) 5,000 unit SQ TID [facility] Last Admin: 04/27/17 06:08 Dose: Not Given Azithromycin 500 mg/ Dextrose 250 mls @ 250 mls/hr IVPB DAILY [facility] Last Admin: 04/26/17 10:44 Dose: 250 mls/hr Piperacillin Sod/Tazobactam (Sod 3.375 gm/ Dextrose) 50 mls @ 100 mls/hr IVPB Q8H-IV TA PRN Reason: Protocol Last Admin: 04/27/17 01:21 Dose: 100 mls/hr Methylprednisolone Sodium Succinate (Solu-Medrol -) 40 mg IVPUSH Q6H-IV [facility] Last Admin: 04/27/17 02:00 Dose: 40 mg Non-Formulary Medication (Beclomethasone Dipropionate [Qvar]) 0 gm IH BID [facility] Tamsulosin HCl (Flomax -) 0.4 mg PO DAILY@0830 [facility] Last Admin: 04/26/17 09:00 Dose: 0.4 mg Tiotropium [place] (Spiriva -) 1 puff IH DAILY [facility] Last Admin: 04/26/17 12:24 Dose: Not Given - Objective Vital Signs: Vital Signs Temperature 97.4 F L 04/27/17 05:30 Pulse Rate 76 04/27/17 05:30 Respiratory Rate 20 04/27/17 05:30 Blood Pressure 98/53 04/27/17 05:30 O2 Sat by Pulse Oximetry (%) 100 04/26/17 22:00 Constitutional: Yes: No Distress, Calm Neck: Yes: Supple Cardiovascular: Yes: Regular Rate and Rhythm Respiratory: Yes: Regular, Diminished, On Nasal O2, Rhonchi Gastrointestinal: Yes: Normal Bowel Sounds, Soft Edema: No Labs: CBC, BMP 04/26/17 06:25 04/26/17 06:25 INR, PTT INR 1.24 (0.82-1.09) H 04/25/17 21:18 - ....Imaging EKG: Report Reviewed (Tele: SR) Problem List - Problems (1) Fever Code(s): R50.9 - FEVER, UNSPECIFIED Qualifiers: Fever type: unspecified Qualified Code(s): R50.9 - Fever, unspecified (2) Anemia Code(s): D64.9 - ANEMIA, UNSPECIFIED Qualifiers: Anemia type: unspecified type Qualified Code(s): D64.9 - Anemia, unspecified (3) Arteriosclerotic heart disease (ASHD) Code(s): I25.10 - ATHSCL HEART DISEASE OF [place] CORONARY ARTERY W/O ANG PCTRS (4) COPD exacerbation Code(s): J44.1 - CHRONIC OBSTRUCTIVE PULMONARY DISEASE W (ACUTE) EXACERBATION (5) Hyperlipidemia Code(s): E78.5 - HYPERLIPIDEMIA, UNSPECIFIED Qualifiers: Hyperlipidemia type: pure hypercholesterolemia Qualified Code(s): E78.00 - Pure hypercholesterolemia, unspecified; E78.0 - Pure hypercholesterolemia (6) Pneumonia Code(s): J18.9 - PNEUMONIA, UNSPECIFIED ORGANISM Qualifiers: Pneumonia type: aspiration pneumonia Laterality: right Lung location: upper lobe of lung (7) Acute and chronic respiratory failure Code(s): J96.20 - ACUTE AND CHR RESP FAILURE, UNSP W HYPOXIA OR HYPERCAPNIA Qualifiers: Respiratory failure complication: hypoxia and hypercapnia Qualified Code(s) : J96.21 - Acute and chronic respiratory failure with hypoxia; J96.22 - Acute and chronic respiratory failure with hypercapnia; J96.22 - Acute and chronic respiratory failure with hypercapnia; J96.22 - Acute and chronic respiratory failure with hypercapnia (8) Diastolic dysfunction Code(s): I51.9 - HEART DISEASE, UNSPECIFIED Assessment/Plan 1. AE COPD and ILD in context of RUL PNA, suspect aspiration referable to recent severe epistaxis 2. Non-obstructive CAD, angina pectoris 3. Hyperlipidemia 4. Diastolic dysfunction with pulm HTN 5. Anemia P:1. IV steroids with GI protection, BD, abx course per C&S, humified O2 to maintain saO2>90% 2. Continue ASA 81 qd, Lipitor 10 qhs 3. DVT prophylaxis 4. Encourage ambulation
[2017-04-27] MEDS: ALPRAZolam 0.25 MG TABLET PO SCH ×2 (10:48→22:03)
[2017-04-27] MEDS: TAMSULOSIN HCL 0.4 MG CAP.ER.24H (FP) PO SCH (10:49)
[2017-04-27] MEDS: ASPIRIN 81 MG CHEWABLE TABLETS PO SCH (10:49)
[2017-04-27] MEDS: AZITHROMYCIN IVPB 500 MG in DEXTROSE 5%-WATER - 250 ML IVPB SCH (10:50)
[2017-04-27] MEDS: ARFORMOTEROL TARTRATE 15 MCG/2 ML VIAL NEB SCH ×2 (10:56→22:34)
--- NOTE | 2017-04-27 11:36 | PN ---
Progress Note, Physician History of Present Illness: Feeling better this am Less cough R pleuritic chest pain resolved Temps down Afebrile Chronically dyspneic at rest Cultures pending - Current Medication List Current Medications: Active Medications Acetaminophen (Tylenol -) 650 mg PO Q4H PRN PRN Reason: FEVER OR PAIN Albuterol Sulfate (Ventolin 0.083% Nebulizer Soln -) 1 amp NEB QIDR [facility] Last Admin: 04/27/17 06:39 Dose: 1 amp Alprazolam (Xanax -) 0.25 mg PO BID [facility] Last Admin: 04/27/17 10:48 Dose: 0.25 mg Arformoterol Tartrate (Brovana (Restricted To Pulmonology/Resp) -) 1 amp NEB BID [facility] Last Admin: 04/27/17 10:56 Dose: 1 amp Aspirin (Asa -) 81 mg PO DAILY [facility] Last Admin: 04/27/17 10:49 Dose: 81 mg Atorvastatin Calcium (Lipitor -) 10 mg PO HS [facility] Last Admin: 04/26/17 21:04 Dose: 10 mg Heparin Sodium (Porcine) (Heparin -) 5,000 unit SQ TID [facility] Last Admin: 04/27/17 06:08 Dose: Not Given Azithromycin 500 mg/ Dextrose 250 mls @ 250 mls/hr IVPB DAILY [facility] Last Admin: 04/27/17 10:50 Dose: 250 mls/hr Piperacillin Sod/Tazobactam (Sod 3.375 gm/ Dextrose) 50 mls @ 100 mls/hr IVPB Q8H-IV [facility] PRN Reason: Protocol Last Admin: 04/27/17 10:50 Dose: 100 mls/hr Methylprednisolone Sodium Succinate (Solu-Medrol -) 40 mg IVPUSH Q6H-IV [facility] Last Admin: 04/27/17 10:48 Dose: 40 mg Non-Formulary Medication (Beclomethasone Dipropionate [Qvar]) 0 gm IH BID [facility] Tamsulosin HCl (Flomax -) 0.4 mg PO DAILY@0830 [facility] Last Admin: 04/27/17 10:49 Dose: 0.4 mg Tiotropium [place] (Spiriva -) 1 puff IH DAILY [facility] Last Admin: 04/26/17 12:24 Dose: Not Given - Objective Vital Signs: Vital Signs Temperature 97 F L 04/27/17 10:00 Pulse Rate 84 04/27/17 10:00 Respiratory Rate 20 04/27/17 10:00 Blood Pressure 103/51 04/27/17 10:00 O2 Sat by Pulse Oximetry (%) 98 04/27/17 10:00 Constitutional: Yes: No Distress Eyes: Yes: Conjunctiva Clear Cardiovascular: Yes: Regular Rate and Rhythm, S1 Respiratory: Yes: Diminished Gastrointestinal: Yes: Normal Bowel Sounds, Soft. No: Tenderness Edema: No Labs: CBC, BMP 04/26/17 06:25 04/26/17 06:25 INR, PTT INR 1.24 (0.82-1.09) H 04/25/17 21:18 Assessment/Plan RUL pneumonia Exacerbation COPD Chronic LINDSEY cavitary lesion Await cultures Continue zithromax/ zosyn
[2017-04-27] MEDS: TIOTROPIUM BROMIDE 18 MCG/INH (DEVICE W/ 5 CAPSULES) IH SCH (11:52)
[2017-04-27] MEDS: BECLOMETHASONE DIPROPIONATE IH SCH ×2 (11:55→22:04)
--- NOTE | 2017-04-27 14:17 | EKG ---
Test Reason : Blood Pressure : / mmHG Vent. Rate : 073 BPM Atrial Rate : 073 BPM P-R Int : 168 ms QRS Dur : 140 ms QT Int : 426 ms P-R-T Axes : 075 072 040 degrees QTc Int : 469 ms NORMAL SINUS RHYTHM RIGHT BUNDLE BRANCH BLOCK ABNORMAL ECG WHEN COMPARED WITH ECG OF 25-APR-2017 19:54, VENT. RATE HAS DECREASED Confirmed by CORAZON CAMACHO MD ([id number]) on 04/27/2017 2:17:30 PM Referred By: Ofelia SPRAGUE Confirmed By:CORAZON CAMACHO MD
--- NOTE | 2017-04-27 14:37 | EKG ---
Test Reason : Blood Pressure : / mmHG Vent. Rate : 107 BPM Atrial Rate : 107 BPM P-R Int : 160 ms QRS Dur : 124 ms QT Int : 340 ms P-R-T Axes : 081 081 018 degrees QTc Int : 453 ms SINUS TACHYCARDIA RIGHT BUNDLE BRANCH BLOCK ABNORMAL ECG WHEN COMPARED WITH ECG OF 22-APR-2017 12:08, VENT. RATE HAS INCREASED Confirmed by CORAZON CAMACHO MD ([id number]) on 04/27/2017 2:37:37 PM Referred By: Confirmed By:CORAZON CAMACHO MD
--- NOTE | 2017-04-27 17:03 | CON.PULM ---
Consult Reason for Consultation:: shortness of breath - History of Present Illness History of Present Illness: Pt recently in hospital. Two days post discharge developed chest pain with inspiration and increased shortness of breath. Pt called me and I advised him to go to ER. Pt found to have new RUL posterior consolidation. No pulmonary embolus. PMH significant for severe COPD (FEV1=0.42 L/S, FVC=2.12=46% on 05/02/2016). 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 Severe COPD-O2 and steroid dependent Recurrent renal stones requiring lithotripsy several times UTI several times Hypertension Patient is followed by the transplant program at [place] but his lung function is "not bad enough" for transplantation. He goes to Pulmonary Rehab at [facility] on a regular basis. In December 2015 he was in hospital with acute bronchitis and found to have a left apical cavity: AFB smear (+) for numerous AFB. CT findings had worsened compared to 06/16 so this was felt to possibly represent tissue infection rather than colonization and could eventually require tx. M.TB PCR and MAC PCR, however, were both negative. Cultures eventually grew out Mycobacterium Xenopi. Pt has remained asymptomatic and he has not been treated for M.Xenopi but his CT is followed periodically. - History Source History Provided By: Patient, Medical Record Limitations to Obtaining History: No Limitations - Past Medical History Cardio/Vascular: Yes: CAD, CHF, HTN, Hyperlipdemia, Pulmonary Hypertension Pulmonary: Yes: COPD (home oxygen), Previously Intubated (intubated one time several years ago for respiratory failure), Other (Interstitial lung disease) Gastrointestinal: Yes: GERD, Hiatal Hernia Renal/: Yes: Renal Calculi, UTI Additional Medical History: Inguinal hernia. 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 History of Recent Travel: No Home Medications - Allergies Allergies/Adverse Reactions: Allergies Allergy/AdvReac Type Severity Reaction Status Date / Time moxifloxacin HCl Allergy Severe Verified 04/21/17 06:54 [From Avelox] aclidinium bromide Allergy Verified 04/21/17 06:54 [From Tudorza Pressair] shellfish derived Allergy Verified 04/21/17 06:54 - Home Medications Home Medications: Ambulatory Orders Albuterol Sulfate Inhaler - [Ventolin HFA Inhaler -] 2 inh PO Q4H 02/08/14 Arformoterol Tartrate [Brovana] 15 mcg IH BID 02/08/14 Aspirin [ASA -] 81 mg PO DAILY 02/08/14 Furosemide [Lasix -] 20 mg PO PRN 02/08/14 Tamsulosin HCl [Flomax -] 0.4 mg PO DAILY 02/08/14 Tiotropium [place] [Spiriva] 1 inh PO DAILY 02/08/14 Beclomethasone Dipropionate [Qvar] 8.7 gm IH DAILY 01/09/16 Alprazolam [Xanax] 0.25 mg PO BID #20 tablet MDD 2 01/18/16 Atorvastatin Ca [Lipitor] 10 mg PO DAILY 08/30/16 Polyethylene Glycol 3350 [Miralax 119 gm Btl -] 17 gm PO DAILY PRN #1 bottle 10/15 Prednisone 40 mg PO DAILY #100 tablet 09/03/16 Peg 3350/Na Sulf,Bicarb,Cl/KCl [Golytely Solution] 4,000 ml PO ONCE 1 Days #1 soln.recon 04/22/17 Family Disease History - Family Disease History Other Family History: CAD Physical Exam Vital Sings: Vital Signs Temperature 97.6 F 04/27/17 16:01 Pulse Rate 95 H 04/27/17 16:01 Respiratory Rate 22 04/27/17 16:01 Blood Pressure 116/66 04/27/17 16:01 O2 Sat by Pulse Oximetry (%) 98 04/27/17 10:00 Constitutional: Yes: Well Nourished, No Distress Eyes: No: Sclera Icterus HENT: Yes: Atraumatic, Normocephalic Cardiovascular: Yes: Regular Rate and Rhythm. No: JVD Respiratory: Yes: CTA Bilaterally ...Inspection: Yes: Trachea Midline ...Percussion: Yes: Hyperresonance ...Clubbing: No Gastrointestinal: Yes: Soft. No: Hepatomegaly, Splenomegaly, Tenderness Extremities: No: Calf Tenderness Edema: No Neurological: Yes: Alert, Oriented Labs: CBC, BMP 04/26/17 06:25 04/26/17 06:25 Imaging - Results Cat Scan: Report Reviewed, Image Reviewed (New RUL posterior consolidation since 03/27/17. No pulmonary embolus. LINDSEY cavity and COPD unchanged.) Problem List - Problems (1) COPD exacerbation Code(s): J44.1 - CHRONIC OBSTRUCTIVE PULMONARY DISEASE W (ACUTE) EXACERBATION (2) Pneumonia Code(s): J18.9 - PNEUMONIA, UNSPECIFIED ORGANISM Qualifiers: Pneumonia type: aspiration pneumonia Laterality: right Lung location: upper lobe of lung (3) Pulmonary cavitary lesion Code(s): J98.4 - OTHER DISORDERS OF LUNG Assessment/Plan New RUL pneumonia. Pt improved post tx with Zosyn. History of recent significant epistaxis and location (RUL post.) of pneumonia suggests it may be an aspiration pneumonia. COPD: stable LINDSEY cavity-stable Plan: Antibiotics per ID Taper steroids Inhaled bronchodilators O2 to maintain SaO2>90 F/u CXR's till resolution RUL consolidation Thank you for referring this patient for consultation.
[2017-04-27] MEDS: ATORVASTATIN CA 10 MG TABLET (FP) PO SCH (22:03)
[2017-04-28] MEDS: methylPREDNISolone NA SUCC 40 MG/1 ML VIAL IVPUSH SCH ×3 (02:26→21:32)
[2017-04-28] MEDS: PIPERACILLIN/TAZOB 3.375 GM 3.375 GM in DEXTROSE 5%-WATER - 50 ML IVPB SCH ×3 (02:26→17:11)
[2017-04-28] MEDS: ALBUTEROL SO4 0.083% IH SOL 2.5 MG/3 ML VIAL.NEB. NEB SCH ×4 (06:38→18:50)
[2017-04-28] MEDS: HEPARIN NA (PORCINE) 5,000 UNITS/ML 1ML VIAL SQ SCH ×3 (06:47→21:32)
--- NOTE | 2017-04-28 08:34 | PN ---
Progress Note, Physician History of Present Illness: feels better - Current Medication List Current Medications: Active Medications Acetaminophen (Tylenol -) 650 mg PO Q4H PRN PRN Reason: FEVER OR PAIN Albuterol Sulfate (Ventolin 0.083% Nebulizer Soln -) 1 amp NEB QIDR [facility] Last Admin: 04/28/17 06:38 Dose: 1 amp Alprazolam (Xanax -) 0.25 mg PO BID [facility] Last Admin: 04/27/17 22:03 Dose: 0.25 mg Arformoterol Tartrate (Brovana (Restricted To Pulmonology/Resp) -) 1 amp NEB BID [facility] Last Admin: 04/27/17 22:34 Dose: 1 amp Aspirin (Asa -) 81 mg PO DAILY [facility] Last Admin: 04/27/17 10:49 Dose: 81 mg Atorvastatin Calcium (Lipitor -) 10 mg PO HS [facility] Last Admin: 04/27/17 22:03 Dose: 10 mg Heparin Sodium (Porcine) (Heparin -) 5,000 unit SQ TID [facility] Last Admin: 04/28/17 06:47 Dose: 5,000 unit Azithromycin 500 mg/ Dextrose 250 mls @ 250 mls/hr IVPB DAILY [facility] Last Admin: 04/27/17 10:50 Dose: 250 mls/hr Piperacillin Sod/Tazobactam (Sod 3.375 gm/ Dextrose) 50 mls @ 100 mls/hr IVPB Q8H-IV TA PRN Reason: Protocol Last Admin: 04/28/17 02:26 Dose: 100 mls/hr Methylprednisolone Sodium Succinate (Solu-Medrol -) 40 mg IVPUSH Q6H-IV [facility] Last Admin: 04/28/17 02:26 Dose: 40 mg Non-Formulary Medication (Beclomethasone Dipropionate [Qvar]) 0 gm IH BID [facility] Last Admin: 04/27/17 22:04 Dose: 1 gm Tamsulosin HCl (Flomax -) 0.4 mg PO DAILY@0830 [facility] Last Admin: 04/27/17 10:49 Dose: 0.4 mg Tiotropium [place] (Spiriva -) 1 puff IH DAILY [facility] Last Admin: 04/27/17 11:52 Dose: 1 puff - Objective Vital Signs: Vital Signs Temperature 97.7 F 04/28/17 06:00 Pulse Rate 86 04/28/17 06:00 Respiratory Rate 20 04/28/17 06:00 Blood Pressure 111/56 04/28/17 06:00 O2 Sat by Pulse Oximetry (%) 98 04/27/17 22:00 Cardiovascular: Yes: Regular Rate and Rhythm Respiratory: Yes: Diminished, On Nasal O2 Gastrointestinal: Yes: Normal Bowel Sounds, Soft Labs: CBC, BMP 04/26/17 06:25 04/26/17 06:25 INR, PTT INR 1.24 (0.82-1.09) H 04/25/17 21:18 Problem List - Problems (1) COPD (chronic obstructive pulmonary disease) Assessment/Plan: IV STEROIDS NEBS ABX NASAL O2 Code(s): J44.9 - CHRONIC OBSTRUCTIVE PULMONARY DISEASE, UNSPECIFIED (2) Pneumonia Assessment/Plan: IV ABX-zosyn and zithromax MONITOR ID CONSULT Code(s): J18.9 - PNEUMONIA, UNSPECIFIED ORGANISM Qualifiers: Pneumonia type: aspiration pneumonia Laterality: right Lung location: upper lobe of lung (3) Pulmonary cavitary lesion Assessment/Plan: MONITOR Code(s): J98.4 - OTHER DISORDERS OF LUNG
[2017-04-28] MEDS ORDERED: PT OWN MED DRAWER 7, Y5N ONE ×4 (09:09→21:16)
--- NOTE | 2017-04-28 09:18 | PN ---
Progress Note (short form) - Note Progress Note: Chief Complaint: Events noted, notes reviewed, denies any chest pain, but reports persistent dyspnea although improved History of Present Illness: Seen and examined on telemetry. Events noted, notes reviewed, denies any chest pain, but reports persistent dyspnea although improved - Current Medication List Current Medications Acetaminophen (Tylenol -) 650 mg PO Q4H PRN PRN Reason: FEVER OR PAIN Albuterol Sulfate (Ventolin 0.083% Nebulizer Soln -) 1 amp NEB QIDR [facility] Last Admin: 04/28/17 06:38 Dose: 1 amp Alprazolam (Xanax -) 0.25 mg PO BID [facility] Last Admin: 04/27/17 22:03 Dose: 0.25 mg Arformoterol Tartrate (Brovana (Restricted To Pulmonology/Resp) -) 1 amp NEB BID [facility] Last Admin: 04/27/17 22:34 Dose: 1 amp Aspirin (Asa -) 81 mg PO DAILY [facility] Last Admin: 04/27/17 10:49 Dose: 81 mg Atorvastatin Calcium (Lipitor -) 10 mg PO HS [facility] Last Admin: 04/27/17 22:03 Dose: 10 mg Heparin Sodium (Porcine) (Heparin -) 5,000 unit SQ TID [facility] Last Admin: 04/28/17 06:47 Dose: 5,000 unit Azithromycin 500 mg/ Dextrose 250 mls @ 250 mls/hr IVPB DAILY [facility] Last Admin: 04/27/17 10:50 Dose: 250 mls/hr Piperacillin Sod/Tazobactam (Sod 3.375 gm/ Dextrose) 50 mls @ 100 mls/hr IVPB Q8H-IV TA PRN Reason: Protocol Last Admin: 04/28/17 02:26 Dose: 100 mls/hr Methylprednisolone Sodium Succinate (Solu-Medrol -) 40 mg IVPUSH BID [facility] Non-Formulary Medication (Beclomethasone Dipropionate [Qvar]) 0 gm IH BID [facility] Last Admin: 04/27/17 22:04 Dose: 1 gm Tamsulosin HCl (Flomax -) 0.4 mg PO DAILY@0830 [facility] Last Admin: 04/27/17 10:49 Dose: 0.4 mg Tiotropium [place] (Spiriva -) 1 puff IH DAILY [facility] Last Admin: 04/27/17 11:52 Dose: 1 puff - Review of Systems Cardiovascular: As noted above Respiratory: As noted above Gastrointestinal: denies: Nausea, Vomiting, Diarrhea, Constipation or Abdominal Pain Musculoskeletal: No symptoms reported Neurological: No symptoms reported - Objective Vital Signs: Last Vital Signs Temp Pulse Resp BP Pulse Ox 97.7 F 86 20 111/56 98 04/28/17 06:00 04/28/17 06:00 04/28/17 06:00 04/28/17 06:00 04/27/17 22:00 Intake & Output 04/25/17 04/26/17 04/27/17 04/28/17 23:59 23:59 23:59 23:59 Intake Total 370 820 Output Total 450 Balance 370 370 Weight 147 lb 146 lb 15.997 oz Neck: Supple Negative JVD Cardiovascular: S1 S2 Regular Rate Rhythm Respiratory: Diminished breath sounds Bilaterally Gastrointestinal: Soft Benign Normal Bowel Sounds Ext: Negative Edema Labs: CBC, BMP 04/26/17 06:25 04/26/17 06:25 Hepatic Panel Total Bilirubin 0.9 mg/dL (0.2-1.0) 04/26/17 06:25 AST 8 U/L (15-37) L D 04/26/17 06:25 ALT 14 U/L (12-78) 04/26/17 06:25 Alkaline Phosphatase 63 U/L (45-117) 04/26/17 06:25 Albumin 3.0 g/dl (3.4-5.0) L 04/26/17 06:25 INR, PTT INR 1.24 (0.82-1.09) H 04/25/17 21:18 Assessment/Plan ASSESSMENT: 1. Acute exacerbation of advanced chronic obstructive pulmonary disease on home oxygen therapy, probable pneumonia 2. 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 Diastolic LV dysfunction with class 0-I NYHA classification LV failure 4. HTN 5. Hypercholesterolemia 6. Anemia PLAN: 1. Antibiotics as per the primary team 2. Steroids and bronchodilators as per the pulmonary team 3. Continue ASA 4. Continue Lipitor Ashley Bojorquez MD
[2017-04-28 09:42] LABS: BASOPHIL 0.6 % (0-2.0); MCH 28.4 pg (25.7-33.7); MEAN CELL VOLUME 86.1 fl (80-96); MEAN PLT VOLUME 8.8 fl (7.5-11.1); NEUTROPHILS 95.4 % (42.8-82.8); PLATELET COUNT 181 K/MM3 (134-434); WHITE BLOOD COUNT 11.9 K/mm3 (4.0-10.0)
[2017-04-28] MEDS: TAMSULOSIN HCL 0.4 MG CAP.ER.24H (FP) PO SCH (09:50)
[2017-04-28] MEDS: ALPRAZolam 0.25 MG TABLET PO SCH ×2 (09:50→21:40)
[2017-04-28] MEDS: ASPIRIN 81 MG CHEWABLE TABLETS PO SCH (09:50)
[2017-04-28] MEDS: TIOTROPIUM BROMIDE 18 MCG/INH (DEVICE W/ 5 CAPSULES) IH SCH (09:50)
[2017-04-28] MEDS: BECLOMETHASONE DIPROPIONATE IH SCH ×2 (09:51→21:34)
[2017-04-28] MEDS: ARFORMOTEROL TARTRATE 15 MCG/2 ML VIAL NEB SCH ×2 (09:52→23:00)
[2017-04-28] MEDS: AZITHROMYCIN IVPB 500 MG in DEXTROSE 5%-WATER - 250 ML IVPB SCH (09:54)
[2017-04-28 10:04] LABS: ALBUMIN 2.9 g/dl (3.4-5.0); ANION GAP 5 (8-16); BILIRUBIN,TOTAL 0.2 mg/dL (0.2-1.0); CALCIUM 8.3 mg/dL (8.5-10.1); CO2 34 mmol/L (21-32); GLUCOSE,RANDOM 221 mg/dL (74-106); SGOT/AST 17 U/L (15-37); SGPT/ALT 30 U/L (12-78); TOT PROT 6.2 g/dl (6.4-8.2)
[2017-04-28 10:05] LABS: ALK PHOS 58 U/L (45-117); CREATININE 0.8 mg/dL (0.7-1.3)
--- NOTE | 2017-04-28 17:58 | PN ---
Progress Note, Physician History of Present Illness: Dyspnea decreased but still SOB on mild exertion. No chest pain or palpitations - Current Medication List Current Medications: Active Medications Acetaminophen (Tylenol -) 650 mg PO Q4H PRN PRN Reason: FEVER OR PAIN Albuterol Sulfate (Ventolin 0.083% Nebulizer Soln -) 1 amp NEB QIDR [facility] Last Admin: 04/28/17 11:41 Dose: 1 amp Alprazolam (Xanax -) 0.25 mg PO BID [facility] Last Admin: 04/28/17 09:50 Dose: 0.25 mg Arformoterol Tartrate (Brovana (Restricted To Pulmonology/Resp) -) 1 amp NEB BID [facility] Last Admin: 04/28/17 09:52 Dose: 1 amp Aspirin (Asa -) 81 mg PO DAILY [facility] Last Admin: 04/28/17 09:50 Dose: 81 mg Atorvastatin Calcium (Lipitor -) 10 mg PO HS [facility] Last Admin: 04/27/17 22:03 Dose: 10 mg Heparin Sodium (Porcine) (Heparin -) 5,000 unit SQ TID [facility] Last Admin: 04/28/17 13:39 Dose: 5,000 unit Azithromycin 500 mg/ Dextrose 250 mls @ 250 mls/hr IVPB DAILY [facility] Last Admin: 04/28/17 09:54 Dose: 250 mls/hr Vancomycin HCl 1,000 mg/ (Dextrose) 250 mls @ 250 mls/hr IVPB BID@0100,1900 [facility] PRN Reason: Protocol Methylprednisolone Sodium Succinate (Solu-Medrol -) 40 mg IVPUSH BID [facility] Last Admin: 04/28/17 09:50 Dose: 40 mg Non-Formulary Medication (Beclomethasone Dipropionate [Qvar]) 0 gm IH BID [facility] Last Admin: 04/28/17 09:51 Dose: 2 gm Tamsulosin HCl (Flomax -) 0.4 mg PO DAILY@0830 [facility] Last Admin: 04/28/17 09:50 Dose: 0.4 mg Tiotropium [place] (Spiriva -) 1 puff IH DAILY [facility] Last Admin: 04/28/17 09:50 Dose: 1 puff - Objective Vital Signs: Vital Signs Temperature 97.7 F 04/28/17 13:48 Pulse Rate 87 04/28/17 13:48 Respiratory Rate 20 04/28/17 13:48 Blood Pressure 111/71 11/28/17 13:48 O2 Sat by Pulse Oximetry (%) 98 04/28/17 09:51 Constitutional: Yes: No Distress Eyes: No: Sclera Icterus HENT: Yes: Atraumatic, Normocephalic Neck: Yes: Supple, Trachea Midline Cardiovascular: Yes: Regular Rate and Rhythm. No: JVD Respiratory: Yes: CTA Bilaterally Gastrointestinal: Yes: Soft. No: Tenderness Edema: No Neurological: Yes: Alert, Oriented Labs: CBC, BMP 04/28/17 09:15 04/28/17 09:15 INR, PTT INR 1.24 (0.82-1.09) H 04/25/17 21:18 Sputum culture: MRSA Problem List - Problems (1) COPD exacerbation Code(s): J44.1 - CHRONIC OBSTRUCTIVE PULMONARY DISEASE W (ACUTE) EXACERBATION (2) Pneumonia Code(s): J18.9 - PNEUMONIA, UNSPECIFIED ORGANISM Qualifiers: Pneumonia type: aspiration pneumonia Laterality: right Lung location: upper lobe of lung (3) Pulmonary cavitary lesion Code(s): J98.4 - OTHER DISORDERS OF LUNG Assessment/Plan New RUL pneumonia. Pt improved post tx with Zosyn. History of recent significant epistaxis and location (RUL post.) of pneumonia suggests it may be an aspiration pneumonia. COPD: stable LINDSEY cavity-stable Sputum culture: MRSA Plan: Antibiotics per ID Taper steroids Inhaled bronchodilators O2 to maintain SaO2>90 F/u CXR's till resolution RUL consolidation Antibiotics per I.D.
[2017-04-28] MEDS: VANCOMYCIN 1,000 MG in DEXTROSE 5%-WATER - 250 ML IVPB SCH (18:12)
[2017-04-28 18:59] LABS: URINE APPEARANCE CLEAR; URINE BILIRUBIN NEGATIVE (NEGATIVE); URINE BLOOD TRACE-INTA (NEGATIVE); URINE COLOR LT. YELLOW; URINE GLUCOSE (UA) NEGATIVE (NEGATIVE); URINE KETONE NEGATIVE (NEGATIVE); URINE NITRITE NEGATIVE (NEGATIVE); URINE PROTEIN NEGATIVE (NEGATIVE)
[2017-04-28] MEDS ORDERED: VANCOMYCIN 1,000 MG in DEXTROSE 5%-WATER - 250 ML IVPB SCH (19:00)
[2017-04-28 21:14] LABS: URINE LEUK ESTERASE Negative (NEGATIVE)
[2017-04-28] MEDS: ATORVASTATIN CA 10 MG TABLET (FP) PO SCH (21:33)
[2017-04-29] MEDS: ALBUTEROL SO4 0.083% IH SOL 2.5 MG/3 ML VIAL.NEB. NEB SCH ×4 (00:12→18:43)
[2017-04-29] MEDS: HEPARIN NA (PORCINE) 5,000 UNITS/ML 1ML VIAL SQ SCH ×3 (06:03→21:38)
[2017-04-29] MEDS: VANCOMYCIN 1,000 MG in DEXTROSE 5%-WATER - 250 ML IVPB SCH ×2 (06:04→18:42)
--- NOTE | 2017-04-29 08:25 | PN ---
Progress Note, Physician History of Present Illness: feels better - Current Medication List Current Medications: Active Medications Acetaminophen (Tylenol -) 650 mg PO Q4H PRN PRN Reason: FEVER OR PAIN Albuterol Sulfate (Ventolin 0.083% Nebulizer Soln -) 1 amp NEB QIDR [facility] Last Admin: 04/29/17 06:47 Dose: 1 amp Alprazolam (Xanax -) 0.25 mg PO BID [facility] Last Admin: 04/28/17 21:40 Dose: Not Given Arformoterol Tartrate (Brovana (Restricted To Pulmonology/Resp) -) 1 amp NEB BID [facility] Last Admin: 04/28/17 23:00 Dose: 1 amp Aspirin (Asa -) 81 mg PO DAILY [facility] Last Admin: 04/28/17 09:50 Dose: 81 mg Atorvastatin Calcium (Lipitor -) 10 mg PO HS [facility] Last Admin: 04/28/17 21:33 Dose: 10 mg Heparin Sodium (Porcine) (Heparin -) 5,000 unit SQ TID [facility] Last Admin: 04/29/17 06:03 Dose: 5,000 unit Azithromycin 500 mg/ Dextrose 250 mls @ 250 mls/hr IVPB DAILY [facility] Last Admin: 04/28/17 09:54 Dose: 250 mls/hr Vancomycin HCl 1,000 mg/ (Dextrose) 250 mls @ 250 mls/hr IVPB BID@0700,1900 [facility] PRN Reason: Protocol Last Admin: 04/29/17 06:04 Dose: 250 mls/hr Methylprednisolone Sodium Succinate (Solu-Medrol -) 40 mg IVPUSH BID [facility] Last Admin: 04/28/17 21:32 Dose: 40 mg Non-Formulary Medication (Beclomethasone Dipropionate [Qvar]) 0 gm IH BID [facility] Last Admin: 04/28/17 21:34 Dose: 1 gm Tamsulosin HCl (Flomax -) 0.4 mg PO DAILY@0830 [facility] Last Admin: 04/28/17 09:50 Dose: 0.4 mg Tiotropium [place] (Spiriva -) 1 puff IH DAILY [facility] Last Admin: 04/28/17 09:50 Dose: 1 puff - Objective Vital Signs: Vital Signs Temperature 98.0 F 04/29/17 06:00 Pulse Rate 76 04/29/17 06:00 Respiratory Rate 18 04/29/17 06:00 Blood Pressure 113/66 04/29/17 06:00 O2 Sat by Pulse Oximetry (%) 98 04/28/17 21:00 Cardiovascular: Yes: Regular Rate and Rhythm Respiratory: Yes: Diminished, Rhonchi Gastrointestinal: Yes: Normal Bowel Sounds, Soft Labs: CBC, BMP 04/28/17 09:15 04/28/17 09:15 INR, PTT INR 1.24 (0.82-1.09) H 04/25/17 21:18 Problem List - Problems (1) COPD (chronic obstructive pulmonary disease) Assessment/Plan: IV STEROIDS--TO PO NEBS ABX NASAL O2 Code(s): J44.9 - CHRONIC OBSTRUCTIVE PULMONARY DISEASE, UNSPECIFIED (2) Pneumonia Assessment/Plan: IV ABX-zosyn and zithromax MONITOR ID CONSULT NOTED VANCO ADDED Microbiology 04/25/17 21:18 Blood - Peripheral Venous Blood Culture - Preliminary NO GROWTH OBTAINED AFTER 72 HOURS, INCUBATION TO CONTINUE FOR 2 DAYS. 04/25/17 21:18 Blood - Peripheral Venous Blood Culture - Preliminary NO GROWTH OBTAINED AFTER 72 HOURS, INCUBATION TO CONTINUE FOR 2 DAYS. 04/27/17 11:20 Sputum - Expectorated Gram Stain - Final 04/27/17 11:20 Sputum - Expectorated Sputum Culture - Preliminary Presumptive Mrsa (Pbp2a Pos) Yeast Like Organism 04/25/17 22:30 Urine - Urine Clean Catch Urine Culture - Final NO GROWTH OBTAINED 04/26/17 16:30 Urine For Antigen Detection Legionella Antigen - Final 04/26/17 16:30 Urine For Antigen Detection Streptococcus pneumoniae Antigen (M - Final Code(s): J18.9 - PNEUMONIA, UNSPECIFIED ORGANISM Qualifiers: Pneumonia type: aspiration pneumonia Laterality: right Lung location: upper lobe of lung (3) Pulmonary cavitary lesion Assessment/Plan: MONITOR Code(s): J98.4 - OTHER DISORDERS OF LUNG
[2017-04-29] MEDS: ARFORMOTEROL TARTRATE 15 MCG/2 ML VIAL NEB SCH ×2 (09:45→22:11)
[2017-04-29] MEDS: TAMSULOSIN HCL 0.4 MG CAP.ER.24H (FP) PO SCH (10:02)
[2017-04-29] MEDS: predniSONE 20 MG TABLET (UD) PO SCH ×2 (10:02→10:03)
[2017-04-29] MEDS: ASPIRIN 81 MG CHEWABLE TABLETS PO SCH (10:02)
[2017-04-29] MEDS: ALPRAZolam 0.25 MG TABLET PO SCH ×2 (10:02→21:39)
[2017-04-29] MEDS: TIOTROPIUM BROMIDE 18 MCG/INH (DEVICE W/ 5 CAPSULES) IH SCH (10:03)
[2017-04-29] MEDS: BECLOMETHASONE DIPROPIONATE IH SCH (10:03)
[2017-04-29] MEDS: AZITHROMYCIN IVPB 500 MG in DEXTROSE 5%-WATER - 250 ML IVPB SCH (10:04)
[2017-04-29] MEDS: QVAR 80 MCG IH SCH ×2 (10:30→21:40)
--- NOTE | 2017-04-29 11:27 | PN ---
Progress Note, Physician History of Present Illness: Feeling better Less cough R pleuritic chest pain resolved Temps down Afebrile Chronically dyspneic at rest Sputum c/s MRSA, yeast - Current Medication List Current Medications: Active Medications Acetaminophen (Tylenol -) 650 mg PO Q4H PRN PRN Reason: FEVER OR PAIN Albuterol Sulfate (Ventolin 0.083% Nebulizer Soln -) 1 amp NEB QIDR [facility] Last Admin: 04/29/17 11:21 Dose: 1 amp Alprazolam (Xanax -) 0.25 mg PO BID [facility] Last Admin: 04/29/17 10:02 Dose: 0.25 mg Arformoterol Tartrate (Brovana (Restricted To Pulmonology/Resp) -) 1 amp NEB BID [facility] Last Admin: 04/29/17 09:45 Dose: 1 amp Aspirin (Asa -) 81 mg PO DAILY [facility] Last Admin: 04/29/17 10:02 Dose: 81 mg Atorvastatin Calcium (Lipitor -) 10 mg PO HS [facility] Last Admin: 04/28/17 21:33 Dose: 10 mg Heparin Sodium (Porcine) (Heparin -) 5,000 unit SQ TID [facility] Last Admin: 04/29/17 06:03 Dose: 5,000 unit Azithromycin 500 mg/ Dextrose 250 mls @ 250 mls/hr IVPB DAILY [facility] Last Admin: 04/29/17 10:04 Dose: 250 mls/hr Vancomycin HCl 1,000 mg/ (Dextrose) 250 mls @ 250 mls/hr IVPB BID@0700,1900 [facility] PRN Reason: Protocol Last Admin: 04/29/17 06:04 Dose: 250 mls/hr Insulin Aspart (Novolog Vial Sliding Scale -) 1 vial SQ ACHS [facility] PRN Reason: Protocol Non-Formulary Medication (Beclomethasone Dipropionate [Qvar]) 0 gm IH BID [facility] Last Admin: 04/29/17 10:03 Dose: 1 gm Prednisone (Deltasone -) 20 mg PO DAILY [facility] Last Admin: 04/29/17 10:03 Dose: Not Given Tamsulosin HCl (Flomax -) 0.4 mg PO DAILY@0830 [facility] Last Admin: 04/29/17 10:02 Dose: 0.4 mg Tiotropium [place] (Spiriva -) 1 puff IH DAILY [facility] Last Admin: 04/29/17 10:03 Dose: 1 puff - Objective Vital Signs: Vital Signs Temperature 98.1 F 04/29/17 10:00 Pulse Rate 79 04/29/17 10:51 Respiratory Rate 20 04/29/17 10:00 Blood Pressure 114/57 04/29/17 10:00 O2 Sat by Pulse Oximetry (%) 99 04/29/17 10:51 Constitutional: Yes: No Distress Eyes: Yes: Conjunctiva Clear Cardiovascular: Yes: Regular Rate and Rhythm, S1, S2 Respiratory: Yes: Rhonchi, Other (rhonchi RUL) Gastrointestinal: Yes: Normal Bowel Sounds, Soft. No: Tenderness Edema: No Labs: CBC, BMP 04/28/17 09:15 04/28/17 09:15 INR, PTT INR 1.24 (0.82-1.09) H 04/25/17 21:18 Assessment/Plan RUL pneumonia Exacerbation COPD Chronic LINDSEY cavitary lesion + Sputum MRSA Significance of + MRSA in sputum not clear In light of new RUL infiltrate will treat Continue zosyn + vancomycin
[2017-04-29] MEDS: INSULIN SLIDING SCALE (NOVOLOG) 1 VIAL SQ SCH ×3 (11:43→21:39)
--- NOTE | 2017-04-29 12:03 | PN ---
Progress Note, Physician History of Present Illness: Dyspnea on exertion, fever and right pleurisy improved, no further epistaxis. - Current Medication List Current Medications: Active Medications Acetaminophen (Tylenol -) 650 mg PO Q4H PRN PRN Reason: FEVER OR PAIN Albuterol Sulfate (Ventolin 0.083% Nebulizer Soln -) 1 amp NEB QIDR [facility] Last Admin: 04/29/17 11:21 Dose: 1 amp Alprazolam (Xanax -) 0.25 mg PO BID [facility] Last Admin: 04/29/17 10:02 Dose: 0.25 mg Arformoterol Tartrate (Brovana (Restricted To Pulmonology/Resp) -) 1 amp NEB BID [facility] Last Admin: 04/29/17 09:45 Dose: 1 amp Aspirin (Asa -) 81 mg PO DAILY [facility] Last Admin: 04/29/17 10:02 Dose: 81 mg Atorvastatin Calcium (Lipitor -) 10 mg PO HS [facility] Last Admin: 04/28/17 21:33 Dose: 10 mg Heparin Sodium (Porcine) (Heparin -) 5,000 unit SQ TID [facility] Last Admin: 04/29/17 06:03 Dose: 5,000 unit Azithromycin 500 mg/ Dextrose 250 mls @ 250 mls/hr IVPB DAILY [facility] Last Admin: 04/29/17 10:04 Dose: 250 mls/hr Vancomycin HCl 1,000 mg/ (Dextrose) 250 mls @ 250 mls/hr IVPB BID@0700,1900 [facility] PRN Reason: Protocol Last Admin: 04/29/17 06:04 Dose: 250 mls/hr Insulin Aspart (Novolog Vial Sliding Scale -) 1 vial SQ ACHS [facility] PRN Reason: Protocol Last Admin: 04/29/17 11:43 Dose: 2 unit Non-Formulary Medication (Beclomethasone Dipropionate [Qvar]) 0 gm IH BID [facility] Last Admin: 04/29/17 10:03 Dose: 1 gm Prednisone (Deltasone -) 20 mg PO DAILY [facility] Last Admin: 04/29/17 10:03 Dose: Not Given Tamsulosin HCl (Flomax -) 0.4 mg PO DAILY@0830 [facility] Last Admin: 04/29/17 10:02 Dose: 0.4 mg Tiotropium [place] (Spiriva -) 1 puff IH DAILY [facility] Last Admin: 04/29/17 10:03 Dose: 1 puff - Objective Vital Signs: Vital Signs Temperature 98.1 F 04/29/17 10:00 Pulse Rate 79 04/29/17 10:51 Respiratory Rate 20 04/29/17 10:00 Blood Pressure 114/57 04/29/17 10:00 O2 Sat by Pulse Oximetry (%) 99 04/29/17 10:51 Constitutional: Yes: No Distress, Calm Neck: Yes: Supple Cardiovascular: Yes: Regular Rate and Rhythm Respiratory: Yes: Regular, On Nasal O2 Gastrointestinal: Yes: Normal Bowel Sounds, Soft Edema: No Labs: CBC, BMP 04/28/17 09:15 04/28/17 09:15 INR, PTT INR 1.24 (0.82-1.09) H 04/25/17 21:18 Problem List - Problems (1) Anemia Code(s): D64.9 - ANEMIA, UNSPECIFIED Qualifiers: Anemia type: unspecified type Qualified Code(s): D64.9 - Anemia, unspecified (2) Arteriosclerotic heart disease (ASHD) Code(s): I25.10 - ATHSCL HEART DISEASE OF [place] CORONARY ARTERY W/O ANG PCTRS (3) COPD exacerbation Code(s): J44.1 - CHRONIC OBSTRUCTIVE PULMONARY DISEASE W (ACUTE) EXACERBATION (4) Hyperlipidemia Code(s): E78.5 - HYPERLIPIDEMIA, UNSPECIFIED Qualifiers: Hyperlipidemia type: pure hypercholesterolemia Qualified Code(s): E78.00 - Pure hypercholesterolemia, unspecified; E78.0 - Pure hypercholesterolemia (5) Pneumonia Code(s): J18.9 - PNEUMONIA, UNSPECIFIED ORGANISM Qualifiers: Pneumonia type: aspiration pneumonia Laterality: right Lung location: upper lobe of lung (6) Acute and chronic respiratory failure Code(s): J96.20 - ACUTE AND CHR RESP FAILURE, UNSP W HYPOXIA OR HYPERCAPNIA Qualifiers: Respiratory failure complication: hypoxia and hypercapnia Qualified Code(s) : J96.21 - Acute and chronic respiratory failure with hypoxia; J96.22 - Acute and chronic respiratory failure with hypercapnia; J96.22 - Acute and chronic respiratory failure with hypercapnia; J96.22 - Acute and chronic respiratory failure with hypercapnia (7) Diastolic dysfunction Code(s): I51.9 - HEART DISEASE, UNSPECIFIED Assessment/Plan 1. AE COPD and ILD in context of RUL PNA, suspect aspiration referable to recent severe epistaxis 2. Non-obstructive CAD, angina pectoris 3. Hyperlipidemia 4. Diastolic dysfunction with pulm HTN 5. HTN 6. Anemia P:1.Oral steroid taper with GI protection, BD, abx course per ID, humified O2 to maintain saO2>90% 2. Continue ASA 81 qd, Lipitor 10 qhs 3. DVT prophylaxis 4. Encourage ambulation
[2017-04-29] MEDS: POLYETHYLENE GLYCOL 3350 119 GM BTL PO SCH (17:46)
[2017-04-29] MEDS ORDERED: INSULIN (NOVOLOG) ASPART 100 UNITS/ML 10ML VIAL ONE (21:14)
[2017-04-29] MEDS ORDERED: PT OWN MED DRAWER 7, Y5N ONE ×2 (21:15→21:43)
[2017-04-29] MEDS: ATORVASTATIN CA 10 MG TABLET (FP) PO SCH (21:39)
[2017-04-30] MEDS: ALBUTEROL SO4 0.083% IH SOL 2.5 MG/3 ML VIAL.NEB. NEB SCH ×4 (00:13→18:30)
[2017-04-30] MEDS: HEPARIN NA (PORCINE) 5,000 UNITS/ML 1ML VIAL SQ SCH ×3 (06:06→21:26)
[2017-04-30] MEDS: INSULIN SLIDING SCALE (NOVOLOG) 1 VIAL SQ SCH ×4 (06:10→21:50)
[2017-04-30 07:57] LABS: BASOPHIL 0.1 % (0-2.0); EOSINOPHIL 1.3 % (0-4.5); MCHC 33.4 g/dl (32.0-35.9); MEAN CELL VOLUME 86.9 fl (80-96); MEAN PLT VOLUME 8.7 fl (7.5-11.1); NEUTROPHILS 79.5 % (42.8-82.8); PLATELET COUNT 186 K/MM3 (134-434); RDW 14.2 % (11.9-15.9); WHITE BLOOD COUNT 9.2 K/mm3 (4.0-10.0)
[2017-04-30] MEDS ORDERED: PT OWN MED DRAWER 7, Y5N ONE ×2 (08:06→18:29)
--- NOTE | 2017-04-30 08:37 | PN ---
Progress Note, Physician History of Present Illness: Dyspnea decreased but still SOB on mild exertion. No chest pain or palpitations - pt seen at 9:30 A.M. 04/29 - Current Medication List Current Medications: Active Medications Acetaminophen (Tylenol -) 650 mg PO Q4H PRN PRN Reason: FEVER OR PAIN Albuterol Sulfate (Ventolin 0.083% Nebulizer Soln -) 1 amp NEB QIDR [facility] Last Admin: 04/30/17 05:44 Dose: 1 amp Alprazolam (Xanax -) 0.25 mg PO BID [facility] Last Admin: 04/29/17 21:39 Dose: 0.25 mg Arformoterol Tartrate (Brovana (Restricted To Pulmonology/Resp) -) 1 amp NEB BID [facility] Last Admin: 04/29/17 22:11 Dose: 1 amp Aspirin (Asa -) 81 mg PO DAILY [facility] Last Admin: 04/29/17 10:02 Dose: 81 mg Atorvastatin Calcium (Lipitor -) 10 mg PO HS [facility] Last Admin: 04/29/17 21:39 Dose: 10 mg Heparin Sodium (Porcine) (Heparin -) 5,000 unit SQ TID [facility] Last Admin: 04/30/17 06:06 Dose: Not Given Azithromycin 500 mg/ Dextrose 250 mls @ 250 mls/hr IVPB DAILY [facility] Last Admin: 04/29/17 10:04 Dose: 250 mls/hr Vancomycin HCl 1,000 mg/ (Dextrose) 250 mls @ 250 mls/hr IVPB BID@0700,1900 [facility] PRN Reason: Protocol Last Admin: 04/29/17 18:42 Dose: 250 mls/hr Insulin Aspart (Novolog Vial Sliding Scale -) 1 vial SQ ACHS [facility] PRN Reason: Protocol Last Admin: 04/30/17 06:10 Dose: Not Given Qvar (Beclomethasone ) 80mcg Inhaler_Non- Formulary Med 1 each IH BID [facility] Last Admin: 04/29/17 21:40 Dose: 1 each Polyethylene Glycol (Miralax (For Daily Use) -) 17 gm PO DAILY [facility] Last Admin: 04/29/17 17:46 Dose: 17 gm Prednisone (Deltasone -) 20 mg PO DAILY [facility] Last Admin: 04/29/17 10:03 Dose: Not Given Tamsulosin HCl (Flomax -) 0.4 mg PO DAILY@0830 [facility] Last Admin: 04/29/17 10:02 Dose: 0.4 mg Tiotropium [place] (Spiriva -) 1 puff IH DAILY [facility] Last Admin: 04/29/17 10:03 Dose: 1 puff - Objective Vital Signs: Vital Signs Temperature 97.7 F 04/30/17 06:00 Pulse Rate 77 04/30/17 06:00 Respiratory Rate 20 04/30/17 06:00 Blood Pressure 107/64 04/30/17 06:00 O2 Sat by Pulse Oximetry (%) 100 04/29/17 22:00 Constitutional: Yes: Calm. No: No Distress HENT: Yes: Atraumatic, Normocephalic Neck: Yes: Supple, Trachea Midline Cardiovascular: Yes: Regular Rate and Rhythm Respiratory: Yes: CTA Bilaterally, Hyperresonant Gastrointestinal: Yes: Soft. No: Tenderness Extremities: No: Calf Tenderness Edema: No Neurological: Yes: Alert, Oriented Labs: CBC, BMP 04/30/17 06:30 04/28/17 09:15 INR, PTT INR 1.24 (0.82-1.09) H 04/25/17 21:18 Problem List - Problems (1) COPD exacerbation Code(s): J44.1 - CHRONIC OBSTRUCTIVE PULMONARY DISEASE W (ACUTE) EXACERBATION (2) Pneumonia Code(s): J18.9 - PNEUMONIA, UNSPECIFIED ORGANISM Qualifiers: Pneumonia type: aspiration pneumonia Laterality: right Lung location: upper lobe of lung (3) Pulmonary cavitary lesion Code(s): J98.4 - OTHER DISORDERS OF LUNG Assessment/Plan New RUL pneumonia. Pt improved post tx with antibiotic. History of recent significant epistaxis and location (RUL post.) of pneumonia suggests it may be an aspiration pneumonia. Pt now on Vancomycin for MRSA COPD: stable LINDSEY cavity-stable Sputum culture: MRSA Plan: Antibiotics per ID Taper steroids Inhaled bronchodilators O2 to maintain SaO2>90 F/u CXR's till resolution RUL consolidation
--- NOTE | 2017-04-30 09:01 | PN ---
Progress Note, Physician Chief Complaint: Feels better Less SOB History of Present Illness: Patient was seen and examined. Awake and alert. Chart was reviewed Denies chest pain or palpitations Less SOB and cough Tolerating therapy - Current Medication List Current Medications: Active Medications Acetaminophen (Tylenol -) 650 mg PO Q4H PRN PRN Reason: FEVER OR PAIN Albuterol Sulfate (Ventolin 0.083% Nebulizer Soln -) 1 amp NEB QIDR [facility] Last Admin: 04/30/17 05:44 Dose: 1 amp Alprazolam (Xanax -) 0.25 mg PO BID [facility] Last Admin: 04/29/17 21:39 Dose: 0.25 mg Arformoterol Tartrate (Brovana (Restricted To Pulmonology/Resp) -) 1 amp NEB BID [facility] Last Admin: 04/29/17 22:11 Dose: 1 amp Aspirin (Asa -) 81 mg PO DAILY [facility] Last Admin: 04/29/17 10:02 Dose: 81 mg Atorvastatin Calcium (Lipitor -) 10 mg PO HS [facility] Last Admin: 04/29/17 21:39 Dose: 10 mg Heparin Sodium (Porcine) (Heparin -) 5,000 unit SQ TID [facility] Last Admin: 04/30/17 06:06 Dose: Not Given Azithromycin 500 mg/ Dextrose 250 mls @ 250 mls/hr IVPB DAILY [facility] Last Admin: 04/29/17 10:04 Dose: 250 mls/hr Vancomycin HCl 1,000 mg/ (Dextrose) 250 mls @ 250 mls/hr IVPB BID@0700,1900 [facility] PRN Reason: Protocol Last Admin: 04/29/17 18:42 Dose: 250 mls/hr Insulin Aspart (Novolog Vial Sliding Scale -) 1 vial SQ ACHS [facility] PRN Reason: Protocol Last Admin: 04/30/17 06:10 Dose: Not Given Qvar (Beclomethasone ) 80mcg Inhaler_Non- Formulary Med 1 each IH BID [facility] Last Admin: 04/29/17 21:40 Dose: 1 each Polyethylene Glycol (Miralax (For Daily Use) -) 17 gm PO DAILY [facility] Last Admin: 04/29/17 17:46 Dose: 17 gm Prednisone (Deltasone -) 20 mg PO DAILY [facility] Last Admin: 04/29/17 10:03 Dose: Not Given Tamsulosin HCl (Flomax -) 0.4 mg PO DAILY@0830 [facility] Last Admin: 04/29/17 10:02 Dose: 0.4 mg Tiotropium [place] (Spiriva -) 1 puff IH DAILY [facility] Last Admin: 04/29/17 10:03 Dose: 1 puff - Objective Vital Signs: Vital Signs Temperature 97.7 F 04/30/17 06:00 Pulse Rate 77 04/30/17 06:00 Respiratory Rate 20 04/30/17 06:00 Blood Pressure 107/64 04/30/17 06:00 O2 Sat by Pulse Oximetry (%) 100 04/29/17 22:00 Cardiovascular: Yes: Regular Rate and Rhythm, Murmur (Soft SM), S1, S2 Respiratory: Yes: Diminished Gastrointestinal: Yes: Normal Bowel Sounds, Soft. No: Tenderness Edema: No Additional Findings/Remarks: - Review of Systems Constitutional: denies: Fever Cardiovascular: reports: Chest Pain, Shortness of Breath. denies: Palpitations Respiratory: reports: Cough, SOB. denies: Hemoptysis, Orthopnea, PND Gastrointestinal: denies: Abdominal Pain, Constipation, Diarrhea, Melena, Nausea , Rectal Bleeding, Vomiting Genitourinary: denies: Dysuria, Hematuria Neurological: denies: Dizziness, Headache, Seizure, Syncope Labs: CBC, BMP 04/30/17 06:30 Problem List - Problems (1) Fever Code(s): R50.9 - FEVER, UNSPECIFIED Qualifiers: Fever type: unspecified Qualified Code(s): R50.9 - Fever, unspecified (2) Acute and chronic respiratory failure Code(s): J96.20 - ACUTE AND CHR RESP FAILURE, UNSP W HYPOXIA OR HYPERCAPNIA Qualifiers: Respiratory failure complication: hypoxia and hypercapnia Qualified Code(s) : J96.21 - Acute and chronic respiratory failure with hypoxia; J96.22 - Acute and chronic respiratory failure with hypercapnia; J96.22 - Acute and chronic respiratory failure with hypercapnia; J96.22 - Acute and chronic respiratory failure with hypercapnia (3) Arteriosclerotic heart disease (ASHD) Code(s): I25.10 - ATHSCL HEART DISEASE OF [place] CORONARY ARTERY W/O ANG PCTRS (4) COPD (chronic obstructive pulmonary disease) Code(s): J44.9 - CHRONIC OBSTRUCTIVE PULMONARY DISEASE, UNSPECIFIED (5) Hyperlipidemia Code(s): E78.5 - HYPERLIPIDEMIA, UNSPECIFIED Qualifiers: Hyperlipidemia type: pure hypercholesterolemia Qualified Code(s): E78.00 - Pure hypercholesterolemia, unspecified; E78.0 - Pure hypercholesterolemia (6) Pneumonia Code(s): J18.9 - PNEUMONIA, UNSPECIFIED ORGANISM Qualifiers: Pneumonia type: aspiration pneumonia Laterality: right Lung location: upper lobe of lung Assessment/Plan 1. Clinical presentation compatible with pneumomia with pulmonary consolidation 2. Advanced COPD and interstitial lung disease on home oxygen therapy - exacerbation 3. Coronary artery disease (non-obstructive), angina pectoris 4. Diastolic LV dysfunction with class 0-1 NYHA LV failure 5. HTN/HCVD 6. Hypercholesterolemia 7. Anemia PLAN: 1. Antibiotic coverage 2. Bronchodilator, steroids and O2 3. Continue ASA 81 mg once a day 4. Continue statin therapy 5. Monitor electrolytes Further plans are to follow Toni Mares MD
[2017-04-30] MEDS: ALPRAZolam 0.25 MG TABLET PO SCH ×2 (09:28→21:37)
[2017-04-30] MEDS: TAMSULOSIN HCL 0.4 MG CAP.ER.24H (FP) PO SCH (09:28)
[2017-04-30] MEDS: ASPIRIN 81 MG CHEWABLE TABLETS PO SCH (09:28)
[2017-04-30] MEDS: predniSONE 20 MG TABLET (UD) PO SCH (09:28)
[2017-04-30] MEDS: QVAR 80 MCG IH SCH ×2 (09:28→21:50)
[2017-04-30] MEDS: TIOTROPIUM BROMIDE 18 MCG/INH (DEVICE W/ 5 CAPSULES) IH SCH (09:29)
[2017-04-30] MEDS: VANCOMYCIN 1,000 MG in DEXTROSE 5%-WATER - 250 ML IVPB SCH ×2 (09:30→18:33)
[2017-04-30] MEDS: POLYETHYLENE GLYCOL 3350 119 GM BTL PO SCH (09:32)
[2017-04-30] MEDS: ARFORMOTEROL TARTRATE 15 MCG/2 ML VIAL NEB SCH ×2 (10:00→22:46)
--- NOTE | 2017-04-30 10:41 | PN ---
Progress Note, Physician Chief Complaint: awake alert greenish yellow sputum says cough slightly better on contact isolation - Current Medication List Current Medications: Active Medications Acetaminophen (Tylenol -) 650 mg PO Q4H PRN PRN Reason: FEVER OR PAIN Albuterol Sulfate (Ventolin 0.083% Nebulizer Soln -) 1 amp NEB QIDR [facility] Last Admin: 04/30/17 05:44 Dose: 1 amp Alprazolam (Xanax -) 0.25 mg PO BID [facility] Last Admin: 04/30/17 09:28 Dose: 0.25 mg Arformoterol Tartrate (Brovana (Restricted To Pulmonology/Resp) -) 1 amp NEB BID [facility] Last Admin: 04/30/17 10:00 Dose: 1 amp Aspirin (Asa -) 81 mg PO DAILY [facility] Last Admin: 04/30/17 09:28 Dose: 81 mg Atorvastatin Calcium (Lipitor -) 10 mg PO HS [facility] Last Admin: 04/29/17 21:39 Dose: 10 mg Heparin Sodium (Porcine) (Heparin -) 5,000 unit SQ TID [facility] Last Admin: 04/30/17 06:06 Dose: Not Given Azithromycin 500 mg/ Dextrose 250 mls @ 250 mls/hr IVPB DAILY [facility] Last Admin: 04/29/17 10:04 Dose: 250 mls/hr Vancomycin HCl 1,000 mg/ (Dextrose) 250 mls @ 250 mls/hr IVPB BID@0700,1900 [facility] PRN Reason: Protocol Last Admin: 04/30/17 09:30 Dose: 250 mls/hr Insulin Aspart (Novolog Vial Sliding Scale -) 1 vial SQ ACHS [facility] PRN Reason: Protocol Last Admin: 04/30/17 06:10 Dose: Not Given Qvar (Beclomethasone ) 80mcg Inhaler_Non- Formulary Med 1 each IH BID [facility] Last Admin: 04/30/17 09:28 Dose: 1 each Polyethylene Glycol (Miralax (For Daily Use) -) 17 gm PO DAILY [facility] Last Admin: 04/30/17 09:32 Dose: 17 gm Prednisone (Deltasone -) 20 mg PO DAILY [facility] Last Admin: 04/30/17 09:28 Dose: 20 mg Tamsulosin HCl (Flomax -) 0.4 mg PO DAILY@0830 [facility] Last Admin: 04/30/17 09:28 Dose: 0.4 mg Tiotropium [place] (Spiriva -) 1 puff IH DAILY [facility] Last Admin: 04/30/17 09:29 Dose: 1 puff - Objective Vital Signs: Vital Signs Temperature 97.6 F 04/30/17 10:00 Pulse Rate 72 04/30/17 10:00 Respiratory Rate 20 04/30/17 10:00 Blood Pressure 123/55 04/30/17 10:00 O2 Sat by Pulse Oximetry (%) 100 04/30/17 09:00 Constitutional: Yes: Calm Cardiovascular: Yes: Regular Rate and Rhythm, S1, S2 Respiratory: Yes: On Nasal O2, Other (distant) Gastrointestinal: Yes: Normal Bowel Sounds, Soft Edema: No Neurological: Yes: Alert, Oriented Labs: CBC, BMP 04/30/17 06:30 04/28/17 09:15 INR, PTT INR 1.24 (0.82-1.09) H 04/25/17 21:18 Problem List - Problems (1) Pneumonia Assessment/Plan: RUL pneumonia MRSA in sputum vanco and azithromycin cxr to follow up resolution of pna pulm and ID on board wbc count is trending down Code(s): J18.9 - PNEUMONIA, UNSPECIFIED ORGANISM Qualifiers: Pneumonia type: aspiration pneumonia Laterality: right Lung location: upper lobe of lung (2) Acute and chronic respiratory failure Assessment/Plan: oxygen bronchodilators prednsione iv to po- tapering spiriva Code(s): J96.20 - ACUTE AND CHR RESP FAILURE, UNSP W HYPOXIA OR HYPERCAPNIA Qualifiers: Respiratory failure complication: hypoxia and hypercapnia Qualified Code(s) : J96.21 - Acute and chronic respiratory failure with hypoxia; J96.22 - Acute and chronic respiratory failure with hypercapnia; J96.22 - Acute and chronic respiratory failure with hypercapnia; J96.22 - Acute and chronic respiratory failure with hypercapnia (3) BPH (benign prostatic hypertrophy) Assessment/Plan: flomax Code(s): N40.0 - BENIGN PROSTATIC HYPERPLASIA WITHOUT LOWER URINRY TRACT SYMP (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
[2017-04-30] MEDS: AZITHROMYCIN IVPB 500 MG in DEXTROSE 5%-WATER - 250 ML IVPB SCH (10:54)
--- NOTE | 2017-04-30 14:47 | PN ---
Progress Note, Physician History of Present Illness: Feeling better Less cough R pleuritic chest pain resolved Temps down Afebrile Chronically dyspneic at rest Sputum c/s MRSA, yeast - Current Medication List Current Medications: Active Medications Acetaminophen (Tylenol -) 650 mg PO Q4H PRN PRN Reason: FEVER OR PAIN Albuterol Sulfate (Ventolin 0.083% Nebulizer Soln -) 1 amp NEB QIDR [facility] Last Admin: 04/30/17 05:44 Dose: 1 amp Alprazolam (Xanax -) 0.25 mg PO BID [facility] Last Admin: 04/30/17 09:28 Dose: 0.25 mg Arformoterol Tartrate (Brovana (Restricted To Pulmonology/Resp) -) 1 amp NEB BID [facility] Last Admin: 04/30/17 10:00 Dose: 1 amp Aspirin (Asa -) 81 mg PO DAILY [facility] Last Admin: 04/30/17 09:28 Dose: 81 mg Atorvastatin Calcium (Lipitor -) 10 mg PO HS [facility] Last Admin: 04/29/17 21:39 Dose: 10 mg Heparin Sodium (Porcine) (Heparin -) 5,000 unit SQ TID [facility] Last Admin: 04/30/17 13:44 Dose: Not Given Azithromycin 500 mg/ Dextrose 250 mls @ 250 mls/hr IVPB DAILY [facility] Last Admin: 04/30/17 10:54 Dose: 250 mls/hr Vancomycin HCl 1,000 mg/ (Dextrose) 250 mls @ 250 mls/hr IVPB BID@0700,1900 [facility] PRN Reason: Protocol Last Admin: 04/30/17 09:30 Dose: 250 mls/hr Insulin Aspart (Novolog Vial Sliding Scale -) 1 vial SQ ACHS [facility] PRN Reason: Protocol Last Admin: 04/30/17 10:57 Dose: Not Given Qvar (Beclomethasone ) 80mcg Inhaler_Non- Formulary Med 1 each IH BID [facility] Last Admin: 04/30/17 09:28 Dose: 1 each Polyethylene Glycol (Miralax (For Daily Use) -) 17 gm PO DAILY [facility] Last Admin: 04/30/17 09:32 Dose: 17 gm Prednisone (Deltasone -) 20 mg PO DAILY [facility] Last Admin: 04/30/17 09:28 Dose: 20 mg Tamsulosin HCl (Flomax -) 0.4 mg PO DAILY@0830 [facility] Last Admin: 04/30/17 09:28 Dose: 0.4 mg Tiotropium [place] (Spiriva -) 1 puff IH DAILY [facility] Last Admin: 04/30/17 09:29 Dose: 1 puff - Objective Vital Signs: Vital Signs Temperature 97.6 F 04/30/17 10:00 Pulse Rate 72 04/30/17 10:00 Respiratory Rate 20 04/30/17 10:00 Blood Pressure 123/55 04/30/17 10:00 O2 Sat by Pulse Oximetry (%) 100 04/30/17 09:00 Constitutional: Yes: No Distress Eyes: Yes: Conjunctiva Clear Cardiovascular: Yes: Regular Rate and Rhythm, S1, S2 Respiratory: Yes: CTA Bilaterally, Diminished Gastrointestinal: Yes: Normal Bowel Sounds, Soft. No: Tenderness Edema: No Labs: CBC, BMP 04/30/17 06:30 04/28/17 09:15 INR, PTT INR 1.24 (0.82-1.09) H 04/25/17 21:18 Assessment/Plan RUL pneumonia Exacerbation COPD Chronic LINDSEY cavitary lesion + Sputum MRSA Significance of + MRSA in sputum not clear In light of new RUL infiltrate will treat Continue zosyn + vancomycin
--- NOTE | 2017-04-30 17:49 | PN ---
Progress Note, Physician History of Present Illness: Dyspnea decreased but still SOB on mild exertion. No chest pain or palpitations - Current Medication List Current Medications: Active Medications Acetaminophen (Tylenol -) 650 mg PO Q4H PRN PRN Reason: FEVER OR PAIN Albuterol Sulfate (Ventolin 0.083% Nebulizer Soln -) 1 amp NEB QIDR [facility] Last Admin: 04/30/17 11:55 Dose: 1 amp Alprazolam (Xanax -) 0.25 mg PO BID [facility] Last Admin: 04/30/17 09:28 Dose: 0.25 mg Arformoterol Tartrate (Brovana (Restricted To Pulmonology/Resp) -) 1 amp NEB BID [facility] Last Admin: 04/30/17 10:00 Dose: 1 amp Aspirin (Asa -) 81 mg PO DAILY [facility] Last Admin: 04/30/17 09:28 Dose: 81 mg Atorvastatin Calcium (Lipitor -) 10 mg PO HS [facility] Last Admin: 04/29/17 21:39 Dose: 10 mg Heparin Sodium (Porcine) (Heparin -) 5,000 unit SQ TID [facility] Last Admin: 04/30/17 13:44 Dose: Not Given Azithromycin 500 mg/ Dextrose 250 mls @ 250 mls/hr IVPB DAILY [facility] Last Admin: 04/30/17 10:54 Dose: 250 mls/hr Vancomycin HCl 1,000 mg/ (Dextrose) 250 mls @ 250 mls/hr IVPB BID@0700,1900 [facility] PRN Reason: Protocol Last Admin: 04/30/17 09:30 Dose: 250 mls/hr Insulin Aspart (Novolog Vial Sliding Scale -) 1 vial SQ ACHS [facility] PRN Reason: Protocol Last Admin: 04/30/17 16:54 Dose: 2 unit Qvar (Beclomethasone ) 80mcg Inhaler_Non- Formulary Med 1 each IH BID [facility] Last Admin: 04/30/17 09:28 Dose: 1 each Polyethylene Glycol (Miralax (For Daily Use) -) 17 gm PO DAILY [facility] Last Admin: 04/30/17 09:32 Dose: 17 gm Prednisone (Deltasone -) 20 mg PO DAILY [facility] Last Admin: 04/30/17 09:28 Dose: 20 mg Tamsulosin HCl (Flomax -) 0.4 mg PO DAILY@0830 [facility] Last Admin: 04/30/17 09:28 Dose: 0.4 mg Tiotropium [place] (Spiriva -) 1 puff IH DAILY [facility] Last Admin: 04/30/17 09:29 Dose: 1 puff - Objective Vital Signs: Vital Signs Temperature 97.6 F 04/30/17 10:00 Pulse Rate 72 04/30/17 10:00 Respiratory Rate 20 04/30/17 10:00 Blood Pressure 123/55 04/30/17 10:00 O2 Sat by Pulse Oximetry (%) 100 04/30/17 09:00 Constitutional: Yes: No Distress Eyes: No: Sclera Icterus HENT: Yes: Atraumatic, Normocephalic Neck: Yes: Supple, Trachea Midline Cardiovascular: Yes: Regular Rate and Rhythm. No: JVD Respiratory: Yes: CTA Bilaterally Gastrointestinal: Yes: Soft Extremities: Yes: Calf Tenderness Edema: No Neurological: Yes: Alert, Oriented Labs: CBC, BMP 04/30/17 06:30 04/28/17 09:15 INR, PTT INR 1.24 (0.82-1.09) H 04/25/17 21:18 Problem List - Problems (1) COPD exacerbation Code(s): J44.1 - CHRONIC OBSTRUCTIVE PULMONARY DISEASE W (ACUTE) EXACERBATION (2) Pneumonia Code(s): J18.9 - PNEUMONIA, UNSPECIFIED ORGANISM Qualifiers: Pneumonia type: aspiration pneumonia Laterality: right Lung location: upper lobe of lung (3) Pulmonary cavitary lesion Code(s): J98.4 - OTHER DISORDERS OF LUNG Assessment/Plan New RUL pneumonia. Pt improved post tx with antibiotic. History of recent significant epistaxis and location (RUL post.) of pneumonia suggests it may be an aspiration pneumonia. Pt now on Vancomycin for MRSA COPD: stable LINDSEY cavity-stable Sputum culture: MRSA Plan: CXR Antibiotics per ID Taper steroids Inhaled bronchodilators O2 to maintain SaO2>90
[2017-04-30] MEDS ORDERED: INSULIN (NOVOLOG) ASPART 100 UNITS/ML 10ML VIAL ONE (21:30)
[2017-04-30] MEDS: ATORVASTATIN CA 10 MG TABLET (FP) PO SCH (21:37)
[2017-05-01] MEDS: ACETAMINOPHEN 325 MG TABLET (FP) PO PRN (04:11)
[2017-05-01] MEDS: HEPARIN NA (PORCINE) 5,000 UNITS/ML 1ML VIAL SQ SCH ×3 (05:53→22:08)
[2017-05-01] MEDS ORDERED: PT OWN MED DRAWER 7, Y5N ONE ×3 (05:55→22:05)
[2017-05-01 06:08] LABS: SERUM IRON 22 ug/dL (38-169); TOTAL IRON BINDING CAPACITY 312 ug/dL (250-450); UIBC 290 ug/dL (111-343)
[2017-05-01] MEDS: VANCOMYCIN 1,000 MG in DEXTROSE 5%-WATER - 250 ML IVPB SCH ×2 (07:09→18:32)
[2017-05-01] MEDS: INSULIN SLIDING SCALE (NOVOLOG) 1 VIAL SQ SCH ×4 (07:14→22:06)
[2017-05-01] MEDS: TAMSULOSIN HCL 0.4 MG CAP.ER.24H (FP) PO SCH (08:56)
[2017-05-01] MEDS: predniSONE 20 MG TABLET (UD) PO SCH (08:59)
[2017-05-01] MEDS: ASPIRIN 81 MG CHEWABLE TABLETS PO SCH (08:59)
[2017-05-01] MEDS: ALPRAZolam 0.25 MG TABLET PO SCH ×2 (08:59→22:08)
[2017-05-01] MEDS: TIOTROPIUM BROMIDE 18 MCG/INH (DEVICE W/ 5 CAPSULES) IH SCH (08:59)
[2017-05-01] MEDS: QVAR 80 MCG IH SCH ×2 (08:59→22:08)
[2017-05-01] MEDS: AZITHROMYCIN IVPB 500 MG in DEXTROSE 5%-WATER - 250 ML IVPB SCH (09:00)
[2017-05-01] MEDS: POLYETHYLENE GLYCOL 3350 119 GM BTL PO SCH (09:00)
--- NOTE | 2017-05-01 10:19 | PN ---
Progress Note, Physician History of Present Illness: Dyspnea on exertion, fever and right pleurisy improved, no further epistaxis. - Current Medication List Current Medications: Active Medications Acetaminophen (Tylenol -) 650 mg PO Q4H PRN PRN Reason: FEVER OR PAIN Last Admin: 05/01/17 04:11 Dose: 650 mg Alprazolam (Xanax -) 0.25 mg PO BID [facility] Last Admin: 05/01/17 08:59 Dose: 0.25 mg Arformoterol Tartrate (Brovana (Restricted To Pulmonology/Resp) -) 1 amp NEB BID [facility] Last Admin: 04/30/17 22:46 Dose: 1 amp Aspirin (Asa -) 81 mg PO DAILY [facility] Last Admin: 05/01/17 08:59 Dose: 81 mg Atorvastatin Calcium (Lipitor -) 10 mg PO HS [facility] Last Admin: 04/30/17 21:37 Dose: 10 mg Heparin Sodium (Porcine) (Heparin -) 5,000 unit SQ TID [facility] Last Admin: 05/01/17 05:53 Dose: Not Given Azithromycin 500 mg/ Dextrose 250 mls @ 250 mls/hr IVPB DAILY [facility] Last Admin: 05/01/17 09:00 Dose: 250 mls/hr Vancomycin HCl 1,000 mg/ (Dextrose) 250 mls @ 250 mls/hr IVPB BID@0700,1900 [facility] PRN Reason: Protocol Last Admin: 05/01/17 07:09 Dose: 250 mls/hr Insulin Aspart (Novolog Vial Sliding Scale -) 1 vial SQ ACHS [facility] PRN Reason: Protocol Last Admin: 05/01/17 07:14 Dose: Not Given Qvar (Beclomethasone ) 80mcg Inhaler_Non- Formulary Med 1 each IH BID [facility] Last Admin: 05/01/17 08:59 Dose: 1 each Polyethylene Glycol (Miralax (For Daily Use) -) 17 gm PO DAILY [facility] Last Admin: 05/01/17 09:00 Dose: Not Given Prednisone (Deltasone -) 20 mg PO DAILY [facility] Last Admin: 05/01/17 08:59 Dose: 20 mg Tamsulosin HCl (Flomax -) 0.4 mg PO DAILY@0830 [facility] Last Admin: 05/01/17 08:56 Dose: 0.4 mg Tiotropium [place] (Spiriva -) 1 puff IH DAILY [facility] Last Admin: 05/01/17 08:59 Dose: 1 puff - Objective Vital Signs: Vital Signs Temperature 97.9 F 05/01/17 06:57 Pulse Rate 98 H 05/01/17 06:57 Respiratory Rate 20 05/01/17 06:57 Blood Pressure 120/60 05/01/17 06:57 O2 Sat by Pulse Oximetry (%) 98 04/30/17 22:00 Constitutional: Yes: No Distress, Calm, Thin Neck: Yes: Supple Cardiovascular: Yes: Regular Rate and Rhythm Respiratory: Yes: Regular, Diminished, On Nasal O2 Gastrointestinal: Yes: Normal Bowel Sounds, Soft Edema: No Labs: CBC, BMP 04/30/17 06:30 04/28/17 09:15 INR, PTT INR 1.24 (0.82-1.09) H 04/25/17 21:18 - ....Imaging Chest X-ray: Report Reviewed (Improved RUL PNA) Problem List - Problems (1) Anemia Code(s): D64.9 - ANEMIA, UNSPECIFIED Qualifiers: Anemia type: unspecified type Qualified Code(s): D64.9 - Anemia, unspecified (2) Arteriosclerotic heart disease (ASHD) Code(s): I25.10 - ATHSCL HEART DISEASE OF [place] CORONARY ARTERY W/O ANG PCTRS (3) COPD exacerbation Code(s): J44.1 - CHRONIC OBSTRUCTIVE PULMONARY DISEASE W (ACUTE) EXACERBATION (4) Hyperlipidemia Code(s): E78.5 - HYPERLIPIDEMIA, UNSPECIFIED Qualifiers: Hyperlipidemia type: pure hypercholesterolemia Qualified Code(s): E78.00 - Pure hypercholesterolemia, unspecified; E78.0 - Pure hypercholesterolemia (5) Pneumonia Code(s): J18.9 - PNEUMONIA, UNSPECIFIED ORGANISM Qualifiers: Pneumonia type: aspiration pneumonia Laterality: right Lung location: upper lobe of lung (6) Acute and chronic respiratory failure Code(s): J96.20 - ACUTE AND CHR RESP FAILURE, UNSP W HYPOXIA OR HYPERCAPNIA Qualifiers: Respiratory failure complication: hypoxia and hypercapnia Qualified Code(s) : J96.21 - Acute and chronic respiratory failure with hypoxia; J96.22 - Acute and chronic respiratory failure with hypercapnia; J96.22 - Acute and chronic respiratory failure with hypercapnia; J96.22 - Acute and chronic respiratory failure with hypercapnia (7) Diastolic dysfunction Code(s): I51.9 - HEART DISEASE, UNSPECIFIED Assessment/Plan 1. AE COPD and ILD in context of RUL PNA, suspect aspiration referable to recent severe epistaxis 2. Non-obstructive CAD, angina pectoris 3. Hyperlipidemia 4. Diastolic dysfunction with pulm HTN 5. HTN 6. Anemia P:1.Oral steroid taper with GI protection, BD, abx course per ID, humified O2 to maintain saO2>90% 2. Continue ASA 81 qd, Lipitor 10 qhs 3. DVT prophylaxis 4. Encourage ambulation
[2017-05-01] MEDS: ARFORMOTEROL TARTRATE 15 MCG/2 ML VIAL NEB SCH ×2 (10:25→21:50)
--- NOTE | 2017-05-01 13:38 | PN ---
Progress Note, Physician Chief Complaint: patient feeling better today no more epistaxis right sided pleuritic chest pain improved cxr noted slight improvement in right apical area - Current Medication List Current Medications: Active Medications Acetaminophen (Tylenol -) 650 mg PO Q4H PRN PRN Reason: FEVER OR PAIN Last Admin: 05/01/17 04:11 Dose: 650 mg Alprazolam (Xanax -) 0.25 mg PO BID [facility] Last Admin: 05/01/17 08:59 Dose: 0.25 mg Arformoterol Tartrate (Brovana (Restricted To Pulmonology/Resp) -) 1 amp NEB BID [facility] Last Admin: 05/01/17 10:25 Dose: 1 amp Aspirin (Asa -) 81 mg PO DAILY [facility] Last Admin: 05/01/17 08:59 Dose: 81 mg Atorvastatin Calcium (Lipitor -) 10 mg PO HS [facility] Last Admin: 04/30/17 21:37 Dose: 10 mg Heparin Sodium (Porcine) (Heparin -) 5,000 unit SQ TID [facility] Last Admin: 05/01/17 13:26 Dose: Not Given Azithromycin 500 mg/ Dextrose 250 mls @ 250 mls/hr IVPB DAILY [facility] Last Admin: 05/01/17 09:00 Dose: 250 mls/hr Vancomycin HCl 1,000 mg/ (Dextrose) 250 mls @ 250 mls/hr IVPB BID@0700,1900 [facility] PRN Reason: Protocol Last Admin: 05/01/17 07:09 Dose: 250 mls/hr Insulin Aspart (Novolog Vial Sliding Scale -) 1 vial SQ ACHS [facility] PRN Reason: Protocol Last Admin: 05/01/17 11:17 Dose: Not Given Qvar (Beclomethasone ) 80mcg Inhaler_Non- Formulary Med 1 each IH BID [facility] Last Admin: 05/01/17 08:59 Dose: 1 each Polyethylene Glycol (Miralax (For Daily Use) -) 17 gm PO DAILY [facility] Last Admin: 05/01/17 09:00 Dose: Not Given Prednisone (Deltasone -) 20 mg PO DAILY [facility] Last Admin: 05/01/17 08:59 Dose: 20 mg Tamsulosin HCl (Flomax -) 0.4 mg PO DAILY@0830 [facility] Last Admin: 05/01/17 08:56 Dose: 0.4 mg Tiotropium [place] (Spiriva -) 1 puff IH DAILY [facility] Last Admin: 05/01/17 08:59 Dose: 1 puff - Objective Vital Signs: Vital Signs Temperature 97.6 F 05/01/17 10:00 Pulse Rate 74 05/01/17 11:51 Respiratory Rate 20 05/01/17 10:00 Blood Pressure 102/62 05/01/17 10:00 O2 Sat by Pulse Oximetry (%) 97 05/01/17 11:51 Constitutional: Yes: Calm Cardiovascular: Yes: Regular Rate and Rhythm, S1, S2 Respiratory: Yes: CTA Bilaterally, On Nasal O2 Gastrointestinal: Yes: Normal Bowel Sounds, Soft Edema: No Neurological: Yes: Alert, Oriented Labs: CBC, BMP 04/30/17 06:30 04/28/17 09:15 INR, PTT INR 1.24 (0.82-1.09) H 04/25/17 21:18 Problem List - Problems (1) Pneumonia Assessment/Plan: RUL pneumonia MRSA in sputum vanco and azithromycin cxr to follow up resolution of pna- slight improvement noted in right apical area pulm and ID on board wbc count is trending down Code(s): J18.9 - PNEUMONIA, UNSPECIFIED ORGANISM Qualifiers: Pneumonia type: aspiration pneumonia Laterality: right Lung location: upper lobe of lung (2) Acute and chronic respiratory failure Assessment/Plan: oxygen bronchodilators prednsione iv to po- tapering spiriva Code(s): J96.20 - ACUTE AND CHR RESP FAILURE, UNSP W HYPOXIA OR HYPERCAPNIA Qualifiers: Respiratory failure complication: hypoxia and hypercapnia Qualified Code(s) : J96.21 - Acute and chronic respiratory failure with hypoxia; J96.22 - Acute and chronic respiratory failure with hypercapnia; J96.22 - Acute and chronic respiratory failure with hypercapnia; J96.22 - Acute and chronic respiratory failure with hypercapnia (3) BPH (benign prostatic hypertrophy) Assessment/Plan: flomax Code(s): N40.0 - BENIGN PROSTATIC HYPERPLASIA WITHOUT LOWER URINRY TRACT SYMP (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
--- NOTE | 2017-05-01 13:53 | PN ---
Progress Note, Physician History of Present Illness: Minimal cough R pleuritic chest pain resolved Temps down Afebrile Chronically dyspneic at rest Sputum c/s MRSA, yeast - Current Medication List Current Medications: Active Medications Acetaminophen (Tylenol -) 650 mg PO Q4H PRN PRN Reason: FEVER OR PAIN Last Admin: 05/01/17 04:11 Dose: 650 mg Alprazolam (Xanax -) 0.25 mg PO BID [facility] Last Admin: 05/01/17 08:59 Dose: 0.25 mg Arformoterol Tartrate (Brovana (Restricted To Pulmonology/Resp) -) 1 amp NEB BID [facility] Last Admin: 05/01/17 10:25 Dose: 1 amp Aspirin (Asa -) 81 mg PO DAILY [facility] Last Admin: 05/01/17 08:59 Dose: 81 mg Atorvastatin Calcium (Lipitor -) 10 mg PO HS [facility] Last Admin: 04/30/17 21:37 Dose: 10 mg Heparin Sodium (Porcine) (Heparin -) 5,000 unit SQ TID [facility] Last Admin: 05/01/17 13:26 Dose: Not Given Azithromycin 500 mg/ Dextrose 250 mls @ 250 mls/hr IVPB DAILY [facility] Last Admin: 05/01/17 09:00 Dose: 250 mls/hr Vancomycin HCl 1,000 mg/ (Dextrose) 250 mls @ 250 mls/hr IVPB BID@0700,1900 [facility] PRN Reason: Protocol Last Admin: 05/01/17 07:09 Dose: 250 mls/hr Insulin Aspart (Novolog Vial Sliding Scale -) 1 vial SQ ACHS [facility] PRN Reason: Protocol Last Admin: 05/01/17 11:17 Dose: Not Given Qvar (Beclomethasone ) 80mcg Inhaler_Non- Formulary Med 1 each IH BID [facility] Last Admin: 05/01/17 08:59 Dose: 1 each Polyethylene Glycol (Miralax (For Daily Use) -) 17 gm PO DAILY [facility] Last Admin: 05/01/17 09:00 Dose: Not Given Prednisone (Deltasone -) 20 mg PO DAILY [facility] Last Admin: 05/01/17 08:59 Dose: 20 mg Tamsulosin HCl (Flomax -) 0.4 mg PO DAILY@0830 [facility] Last Admin: 05/01/17 08:56 Dose: 0.4 mg Tiotropium [place] (Spiriva -) 1 puff IH DAILY [facility] Last Admin: 05/01/17 08:59 Dose: 1 puff - Objective Vital Signs: Vital Signs Temperature 97.6 F 05/01/17 10:00 Pulse Rate 74 05/01/17 11:51 Respiratory Rate 20 05/01/17 10:00 Blood Pressure 102/62 05/01/17 10:00 O2 Sat by Pulse Oximetry (%) 97 05/01/17 11:51 Constitutional: Yes: No Distress Eyes: Yes: Conjunctiva Clear Cardiovascular: Yes: Regular Rate and Rhythm, S1, S2 Respiratory: Yes: Diminished Gastrointestinal: Yes: Normal Bowel Sounds, Soft. No: Tenderness Edema: No Labs: CBC, BMP 04/30/17 06:30 04/28/17 09:15 INR, PTT INR 1.24 (0.82-1.09) H 04/25/17 21:18 Assessment/Plan RUL pneumonia Exacerbation COPD Chronic LINDSEY cavitary lesion + Sputum MRSA Improving Continue zosyn + vancomycin
[2017-05-01] MEDS: PIPERACILLIN/TAZOB 3.375 GM 3.375 GM in DEXTROSE 5%-WATER - 50 ML IVPB SCH ×2 (14:00→18:02)
--- NOTE | 2017-05-01 14:24 | CONSULT ---
Consult - History of Present Illness History of Present Illness: 66-year-old male with history of COPD O2 dependent also on daily baby aspirin with history of recurring epistaxis and multiple visits for epistaxis p/w epistaxis. Pt reports that his home O2 causes his nose to dry out and he often develops crusting in his nose which forces him to pick at it. He reports about 6 hours ago he was attempting to remove some of the crust in his nose when he accidentally cut himself and began to bleed from his L nostril. He reports persistent bleeding since then despite pressure with some clots. He reports that this often occurs in the setting of his nose being dry from his home O2 and that intermittently uses sesame oil to help lubricate but he hasn't used that in the last few days. Denies any recent fevers, chills, chest pain, shortness of breath, abdominal pain. He reports nausea now due to the blood in the back of his oropharynx. He denies any headaches, weakness, numbness. His who is at the bedside reports that he appears pale.per patient nost bleed started at 2:30 in am and lasted for 6 hours he even reports a blood clot in back of his throat He has also experienced epistaxis. Denies: rectal bleeding, melena, weight loss. - Past Medical History Cardio/Vascular: Yes: CAD, CHF, HTN, Hyperlipdemia, Pulmonary Hypertension Pulmonary: Yes: COPD (home oxygen), Previously Intubated (intubated one time several years ago for respiratory failure), Other (Interstitial lung disease) Gastrointestinal: Yes: GERD, Hiatal Hernia Renal/: Yes: Renal Calculi, UTI Additional Medical History: Inguinal hernia. 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 History of Recent Travel: No Home Medications - Allergies Allergies/Adverse Reactions: Allergies Allergy/AdvReac Type Severity Reaction Status Date / Time moxifloxacin HCl Allergy Severe Verified 04/21/17 06:54 [From Avelox] aclidinium bromide Allergy Verified 04/21/17 06:54 [From Tudorza Pressair] shellfish derived Allergy Verified 04/21/17 06:54 - Home Medications Home Medications: Ambulatory Orders Albuterol Sulfate Inhaler - [Ventolin HFA Inhaler -] 2 inh PO Q4H 02/08/14 Arformoterol Tartrate [Brovana] 15 mcg IH BID 02/08/14 Aspirin [ASA -] 81 mg PO DAILY 02/08/14 Furosemide [Lasix -] 20 mg PO PRN 02/08/14 Tamsulosin HCl [Flomax -] 0.4 mg PO DAILY 02/08/14 Tiotropium [place] [Spiriva] 1 inh PO DAILY 02/08/14 Beclomethasone Dipropionate [Qvar] 8.7 gm IH DAILY 01/09/16 Alprazolam [Xanax] 0.25 mg PO BID #20 tablet MDD 2 01/18/16 Atorvastatin [place] [Lipitor] 10 mg PO DAILY 08/30/16 Polyethylene Glycol 3350 [Miralax 119 gm Btl -] 17 gm PO DAILY PRN #1 bottle 10/15 Prednisone 40 mg PO DAILY #100 tablet 09/03/16 Peg 3350/Na Sulf,Bicarb,Cl/KCl [Golytely Solution] 4,000 ml PO ONCE 1 Days #1 soln.recon 04/22/17 Family Disease History - Family Disease History Family History: Denies Other Family History: CAD Review of Systems - Review of Systems Constitutional: denies: Fever, Lethargy, Loss of Appetite, Unintentional Wgt. Loss, Weakness HENT: denies: Difficult Swallowing Neck: denies: Decreased ROM, Lumps, Pain on Movement Cardiovascular: reports: Shortness of Breath. denies: Chest Pain, Edema Respiratory: reports: Cough, SOB on Exertion, Wheezing. denies: Exercise Intolerance, Hemoptysis, Orthopnea Gastrointestinal: denies: Abdominal Pain, Bloating, Diarrhea, Melena, Rectal Bleeding, Vomiting Neurological: reports: No Symptoms Hematology/Lymphatic: reports: No Symptoms. denies: Easily Bruised, Excessive Bleeding, Swollen Glands Psychiatric: reports: No Symptoms Physical Exam Vital Signs: Vital Signs Temperature 97.7 F 05/01/17 14:05 Pulse Rate 84 05/01/17 14:05 Respiratory Rate 20 05/01/17 14:05 Blood Pressure 94/57 05/01/17 14:05 O2 Sat by Pulse Oximetry (%) 97 05/01/17 11:51 Constitutional: Yes: Well Nourished, No Distress Eyes: Yes: Conjunctiva Clear HENT: Yes: Atraumatic, Normocephalic Neck: Yes: Supple, Trachea Midline Cardiovascular: Yes: Regular Rate and Rhythm Respiratory: Yes: Regular, CTA Bilaterally Gastrointestinal: Yes: Normal Bowel Sounds, Soft Extremities: Yes: WNL Edema: No Neurological: Yes: Alert, Oriented Psychiatric: Yes: Alert, Oriented Labs: CBC, BMP 04/30/17 06:30 04/28/17 09:15 Imaging - Results Cat Scan: Report Reviewed Assessment/Plan Normocytic Normochromic anemia. down-trending Hct from the last few days. Iron studies reviewed , low sat , low iron, high normal TIBC, c/w anemia of Fe def. complete other w/u ordered including STEPHANIE. stool occult blood. No other lines of cytopenia. seen by GI 04/22, for OP w/u, but pt re-admitted a day later. GI c/s. COPD per Pulm MRSA: as per ID
--- NOTE | 2017-05-01 16:20 | CON.GI ---
Consult Consult Specialty:: GI - History of Present Illness History of Present Illness: The patient is known to us from prior, recent admissions. Chart reviewed. Events noted. He was scheduled for outpatient EGD and colonoscopy as part of multifactorial anemia work up. Admitted for recurrent, significant epistaxis. HTN, NE, CHF and COPD on [place] O2. On Aspirin. Denies melena, hematochezia, hematemesis. Had a normal, per patient , colonoscpy 2-3 years ago. Denies nausea , vomiting, dysphagia, odynophagia, GERD-like symptoms, abdominal or epigastric pain. Jez chest pain, dizziness, lightheadedness. Reports fatigue. - History Source History Provided By: Patient, Medical Record Limitations to Obtaining History: No Limitations - Past Medical History Cardio/Vascular: Yes: CAD, CHF, HTN, Hyperlipdemia, Pulmonary Hypertension Pulmonary: Yes: COPD (home oxygen), Previously Intubated (intubated one time several years ago for respiratory failure), Other (Interstitial lung disease) Gastrointestinal: Yes: GERD, Hiatal Hernia Renal/: Yes: Renal Calculi, UTI Additional Medical History: Inguinal hernia. 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 History of Recent Travel: No Home Medications - Allergies Allergies/Adverse Reactions: Allergies Allergy/AdvReac Type Severity Reaction Status Date / Time moxifloxacin HCl Allergy Severe Verified 04/21/17 06:54 [From Avelox] aclidinium bromide Allergy Verified 04/21/17 06:54 [From Tudorza Pressair] shellfish derived Allergy Verified 04/21/17 06:54 - Home Medications Home Medications: Ambulatory Orders Albuterol Sulfate Inhaler - [Ventolin HFA Inhaler -] 2 inh PO Q4H 02/08/14 Arformoterol Tartrate [Brovana] 15 mcg IH BID 02/08/14 Aspirin [ASA -] 81 mg PO DAILY 02/08/14 Furosemide [Lasix -] 20 mg PO PRN 02/08/14 Tamsulosin HCl [Flomax -] 0.4 mg PO DAILY 02/08/14 Tiotropium [place] [Spiriva] 1 inh PO DAILY 02/08/14 Beclomethasone Dipropionate [Qvar] 8.7 gm IH DAILY 01/09/16 Alprazolam [Xanax] 0.25 mg PO BID #20 tablet MDD 2 01/18/16 Atorvastatin [place] [Lipitor] 10 mg PO DAILY 08/30/16 Polyethylene Glycol 3350 [Miralax 119 gm Btl -] 17 gm PO DAILY PRN #1 bottle 10/15 Prednisone 40 mg PO DAILY #100 tablet 09/03/16 Peg 3350/Na Sulf,Bicarb,Cl/KCl [Golytely Solution] 4,000 ml PO ONCE 1 Days #1 soln.recon 04/22/17 Family Disease History - Family Disease History Family History: Unremarkable (non-contributory) Other Family History: CAD Review of Systems Findings/Remarks: Please refer to H&P Physical Exam-GI Vital Signs: Vital Signs Temperature 97.7 F 05/01/17 14:05 Pulse Rate 84 05/01/17 14:05 Respiratory Rate 20 05/01/17 14:05 Blood Pressure 94/57 05/01/17 14:05 O2 Sat by Pulse Oximetry (%) 97 05/01/17 11:51 Constitutional: Yes: No Distress, Anxious Eyes: Yes: Conjunctiva Clear HENT: Yes: Atraumatic Neck: Yes: Supple Cardiovascular: Yes: Regular Rate and Rhythm Respiratory: Yes: Regular ...Auscultate: Yes: Normoactive Bowel Sounds ...Palpate: Yes: Soft. No: Firm/Rigid, Guarding, Tenderness, Tenderness, Rebound Neurological: Yes: Alert, Oriented Labs: CBC, BMP 04/30/17 06:30 04/28/17 09:15 INR, PTT INR 1.24 (0.82-1.09) H 04/25/17 21:18 CBCD WBC 9.2 K/mm3 (4.0-10.0) 04/30/17 06:30 RBC 3.31 M/mm3 (4.00-5.60) L 04/30/17 06:30 Hgb 9.6 GM/dL (11.7-16.9) L 04/30/17 06:30 Hct 28.7 % (35.4-49) L 04/30/17 06:30 MCV 86.9 fl (80-96) 04/30/17 06:30 MCHC 33.4 g/dl (32.0-35.9) 04/30/17 06:30 RDW 14.2 % (11.9-15.9) 04/30/17 06:30 Plt Count 186 K/MM3 (134-434) 04/30/17 06:30 MPV 8.7 fl (7.5-11.1) 04/30/17 06:30 CMP Sodium 139 mmol/L (136-145) 04/28/17 09:15 Potassium 4.1 mmol/L (3.5-5.1) 04/28/17 09:15 Chloride 100 mmol/L (98-107) 04/28/17 09:15 Carbon Dioxide 34 mmol/L (21-32) H 04/28/17 09:15 Anion Gap 5 (8-16) L 04/28/17 09:15 BUN 18 mg/dL (7-18) D 04/28/17 09:15 Creatinine 0.8 mg/dL (0.7-1.3) 04/28/17 09:15 Creat Clearance w eGFR > 60 (>60) 04/28/17 09:15 Calcium 8.3 mg/dL (8.5-10.1) L 04/28/17 09:15 Total Bilirubin 0.2 mg/dL (0.2-1.0) D 04/28/17 09:15 AST 17 U/L (15-37) D 04/28/17 09:15 ALT 30 U/L (12-78) D 04/28/17 09:15 Alkaline Phosphatase 58 U/L (45-117) 04/28/17 09:15 Total Protein 6.2 g/dl (6.4-8.2) L 04/28/17 09:15 Albumin 2.9 g/dl (3.4-5.0) L 04/28/17 09:15 Assessment/Plan Multifactorial anemia. Will reschedule endoscopic work up as per discussion with the patient.
[2017-05-01] MEDS: ATORVASTATIN CA 10 MG TABLET (FP) PO SCH (22:08)
[2017-05-02] MEDS ORDERED: PT OWN MED DRAWER 7, Y5N ONE ×4 (01:00→21:55)
[2017-05-02] MEDS: PIPERACILLIN/TAZOB 3.375 GM 3.375 GM in DEXTROSE 5%-WATER - 50 ML IVPB SCH ×3 (01:12→18:34)
[2017-05-02] MEDS: HEPARIN NA (PORCINE) 5,000 UNITS/ML 1ML VIAL SQ SCH ×3 (06:38→21:03)
[2017-05-02] MEDS: VANCOMYCIN 1,000 MG in DEXTROSE 5%-WATER - 250 ML IVPB SCH ×2 (06:46→18:34)
[2017-05-02] MEDS: INSULIN SLIDING SCALE (NOVOLOG) 1 VIAL SQ SCH ×4 (07:03→21:03)
[2017-05-02 07:25] LABS: MCH 28.5 pg (25.7-33.7); MCHC 32.6 g/dl (32.0-35.9); MEAN CELL VOLUME 87.5 fl (80-96); MEAN PLT VOLUME 8.8 fl (7.5-11.1); PLATELET COUNT 215 K/MM3 (134-434); RDW 14.5 % (11.9-15.9); WHITE BLOOD COUNT 10.2 K/mm3 (4.0-10.0)
[2017-05-02 07:36] LABS: ALBUMIN 2.7 g/dl (3.4-5.0); ANION GAP 2 (8-16); BILIRUBIN,TOTAL 0.3 mg/dL (0.2-1.0); CALCIUM 8.5 mg/dL (8.5-10.1); CO2 37 mmol/L (21-32); CREATININE 0.9 mg/dL (0.7-1.3); GLUCOSE,RANDOM 83 mg/dL (74-106); LDH 146 U/L (87-241); SGOT/AST 5 U/L (15-37); SGPT/ALT 27 U/L (12-78); TOT PROT 5.3 g/dl (6.4-8.2)
[2017-05-02 07:37] LABS: ALK PHOS 56 U/L (45-117)
[2017-05-02 07:47] LABS: FERRITIN 39.974 ng/ml (16.4-293.9); THYROID STIMULATING HORMONE 1.31 uIU/ml (0.358-3.74)
[2017-05-02] MEDS: TAMSULOSIN HCL 0.4 MG CAP.ER.24H (FP) PO SCH (09:39)
[2017-05-02] MEDS: ALPRAZolam 0.25 MG TABLET PO SCH ×2 (09:39→23:00)
[2017-05-02] MEDS: predniSONE 20 MG TABLET (UD) PO SCH (09:39)
[2017-05-02] MEDS: ASPIRIN 81 MG CHEWABLE TABLETS PO SCH (09:39)
[2017-05-02] MEDS: TIOTROPIUM BROMIDE 18 MCG/INH (DEVICE W/ 5 CAPSULES) IH SCH (09:41)
[2017-05-02] MEDS: QVAR 80 MCG IH SCH ×2 (09:41→23:00)
[2017-05-02] MEDS: POLYETHYLENE GLYCOL 3350 119 GM BTL PO SCH (09:42)
[2017-05-02] MEDS: ARFORMOTEROL TARTRATE 15 MCG/2 ML VIAL NEB SCH ×2 (10:00→22:40)
[2017-05-02] MEDS: AZITHROMYCIN IVPB 500 MG in DEXTROSE 5%-WATER - 250 ML IVPB SCH (10:25)
[2017-05-02 11:28] LABS: TOTAL CELLS COUNTED 100
[2017-05-02 11:29] LABS: PLATELET ESTIMATE ADEQUATE
--- NOTE | 2017-05-02 11:57 | PN ---
Progress Note, Physician - Current Medication List Current Medications: Active Medications Acetaminophen (Tylenol -) 650 mg PO Q4H PRN PRN Reason: FEVER OR PAIN Last Admin: 05/01/17 04:11 Dose: 650 mg Alprazolam (Xanax -) 0.25 mg PO BID [facility] Last Admin: 05/02/17 09:39 Dose: 0.25 mg Arformoterol Tartrate (Brovana (Restricted To Pulmonology/Resp) -) 1 amp NEB BID [facility] Last Admin: 05/01/17 21:50 Dose: 1 amp Aspirin (Asa -) 81 mg PO DAILY [facility] Last Admin: 05/02/17 09:39 Dose: 81 mg Atorvastatin Calcium (Lipitor -) 10 mg PO HS [facility] Last Admin: 05/01/17 22:08 Dose: 10 mg Heparin Sodium (Porcine) (Heparin -) 5,000 unit SQ TID [facility] Last Admin: 05/02/17 06:38 Dose: Not Given Azithromycin 500 mg/ Dextrose 250 mls @ 250 mls/hr IVPB DAILY [facility] Last Admin: 05/02/17 10:25 Dose: 250 mls/hr Vancomycin HCl 1,000 mg/ (Dextrose) 250 mls @ 250 mls/hr IVPB BID@0700,1900 [facility] PRN Reason: Protocol Last Admin: 05/02/17 06:46 Dose: 250 mls/hr Piperacillin Sod/Tazobactam (Sod 3.375 gm/ Dextrose) 50 mls @ 100 mls/hr IVPB Q8H-IV [facility] PRN Reason: Protocol Last Admin: 05/02/17 10:25 Dose: 100 mls/hr Insulin Aspart (Novolog Vial Sliding Scale -) 1 vial SQ ACHS [facility] PRN Reason: Protocol Last Admin: 05/02/17 11:54 Dose: Not Given Qvar (Beclomethasone ) 80mcg Inhaler_Non- Formulary Med 1 each IH BID [facility] Last Admin: 05/02/17 09:41 Dose: 1 each Polyethylene Glycol (Miralax (For Daily Use) -) 17 gm PO DAILY [facility] Last Admin: 05/02/17 09:42 Dose: Not Given Prednisone (Deltasone -) 20 mg PO DAILY [facility] Last Admin: 05/02/17 09:39 Dose: 20 mg Tamsulosin HCl (Flomax -) 0.4 mg PO DAILY@0830 [facility] Last Admin: 05/02/17 09:39 Dose: 0.4 mg Tiotropium [place] (Spiriva -) 1 puff IH DAILY [facility] Last Admin: 05/02/17 09:41 Dose: 1 puff - Objective Vital Signs: Vital Signs Temperature 97.6 F 05/02/17 06:00 Pulse Rate 70 05/02/17 06:00 Respiratory Rate 18 05/02/17 06:00 Blood Pressure 100/52 05/02/17 06:00 O2 Sat by Pulse Oximetry (%) 100 05/01/17 21:00 Labs: CBC, BMP 05/02/17 06:00 05/02/17 06:00 INR, PTT INR 1.24 (0.82-1.09) H 04/25/17 21:18
--- NOTE | 2017-05-02 12:39 | PN ---
Progress Note (short form) - Note Progress Note: Chief Complaint: Events noted, notes reviewed, denies any chest pain, but reports persistent dyspnea although severity has decreased History of Present Illness: Seen and examined on telemetry earlier today. Events noted, notes reviewed, denies any chest pain, but reports persistent dyspnea although severity has decreased - Current Medication List Current Medications Acetaminophen (Tylenol -) 650 mg PO Q4H PRN PRN Reason: FEVER OR PAIN Last Admin: 05/01/17 04:11 Dose: 650 mg Alprazolam (Xanax -) 0.25 mg PO BID [facility] Last Admin: 05/02/17 09:39 Dose: 0.25 mg Arformoterol Tartrate (Brovana (Restricted To Pulmonology/Resp) -) 1 amp NEB BID [facility] Last Admin: 05/01/17 21:50 Dose: 1 amp Aspirin (Asa -) 81 mg PO DAILY [facility] Last Admin: 05/02/17 09:39 Dose: 81 mg Atorvastatin Calcium (Lipitor -) 10 mg PO HS [facility] Last Admin: 05/01/17 22:08 Dose: 10 mg Heparin Sodium (Porcine) (Heparin -) 5,000 unit SQ TID [facility] Last Admin: 05/02/17 06:38 Dose: Not Given Azithromycin 500 mg/ Dextrose 250 mls @ 250 mls/hr IVPB DAILY [facility] Last Admin: 05/02/17 10:25 Dose: 250 mls/hr Vancomycin HCl 1,000 mg/ (Dextrose) 250 mls @ 250 mls/hr IVPB BID@0700,1900 TA PRN Reason: Protocol Last Admin: 05/02/17 06:46 Dose: 250 mls/hr Piperacillin Sod/Tazobactam (Sod 3.375 gm/ Dextrose) 50 mls @ 100 mls/hr IVPB Q8H-IV TA PRN Reason: Protocol Last Admin: 05/02/17 10:25 Dose: 100 mls/hr Insulin Aspart (Novolog Vial Sliding Scale -) 1 vial SQ ACHS TA PRN Reason: Protocol Last Admin: 05/02/17 11:54 Dose: Not Given Qvar (Beclomethasone ) 80mcg Inhaler_Non- Formulary Med 1 each IH BID [facility] Last Admin: 05/02/17 09:41 Dose: 1 each Polyethylene Glycol (Miralax (For Daily Use) -) 17 gm PO DAILY [facility] Last Admin: 05/02/17 09:42 Dose: Not Given Prednisone (Deltasone -) 20 mg PO DAILY [facility] Last Admin: 05/02/17 09:39 Dose: 20 mg Tamsulosin HCl (Flomax -) 0.4 mg PO DAILY@0830 [facility] Last Admin: 05/02/17 09:39 Dose: 0.4 mg Tiotropium [place] (Spiriva -) 1 puff IH DAILY [facility] Last Admin: 05/02/17 09:41 Dose: 1 puff - Review of Systems Cardiovascular: As noted above Respiratory: As noted above Gastrointestinal: denies: Nausea, Vomiting, Diarrhea, Constipation or Abdominal Pain Musculoskeletal: No symptoms reported Neurological: No symptoms reported - Objective Vital Signs: Last Vital Signs Temp Pulse Resp BP Pulse Ox 98.4 F 88 18 122/58 99 05/02/17 10:00 05/02/17 10:00 05/02/17 10:00 05/02/17 10:00 05/02/17 10:00 Intake & Output 04/29/17 04/30/17 05/01/17 05/02/17 23:59 23:59 23:59 23:59 Intake Total 510 110 570 170 Output Total 400 850 300 Balance 110 -740 570 -130 Weight 147 lb 6 oz 147 lb 8 oz 149 lb 4 oz Neck: Supple Negative JVD Cardiovascular: S1 S2 Regular Rate Rhythm Respiratory: Diminished breath sounds Bilaterally Gastrointestinal: Soft Benign Normal Bowel Sounds Ext: Negative Edema Labs: CBC, BMP 05/02/17 06:00 05/02/17 06:00 Hepatic Panel Total Bilirubin 0.3 mg/dL (0.2-1.0) D 05/02/17 06:00 AST 5 U/L (15-37) L D 05/02/17 06:00 ALT 27 U/L (12-78) 05/02/17 06:00 Alkaline Phosphatase 56 U/L (45-117) 05/02/17 06:00 Albumin 2.7 g/dl (3.4-5.0) L 05/02/17 06:00 INR, PTT INR 1.24 (0.82-1.09) H 04/25/17 21:18 Assessment/Plan ASSESSMENT: 1. Acute exacerbation of advanced chronic obstructive pulmonary disease on home oxygen therapy, probable pneumonia 2. 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 Diastolic LV dysfunction with class 0-I NYHA classification LV failure, compensated/euvolemic 4. HTN 5. Hypercholesterolemia 6. Anemia PLAN: 1. Antibiotics as per the primary team 2. Steroids and bronchodilators as per the pulmonary team 3. Continue ASA with close monitoring of CBC/hemoglobin 4. Continue Lipitor Ashley Bojorquez MD
--- NOTE | 2017-05-02 14:22 | PN ---
Progress Note, Physician - Current Medication List Current Medications: Active Medications Acetaminophen (Tylenol -) 650 mg PO Q4H PRN PRN Reason: FEVER OR PAIN Last Admin: 05/01/17 04:11 Dose: 650 mg Alprazolam (Xanax -) 0.25 mg PO BID [facility] Last Admin: 05/02/17 09:39 Dose: 0.25 mg Arformoterol Tartrate (Brovana (Restricted To Pulmonology/Resp) -) 1 amp NEB BID [facility] Last Admin: 05/02/17 10:00 Dose: 1 amp Aspirin (Asa -) 81 mg PO DAILY [facility] Last Admin: 05/02/17 09:39 Dose: 81 mg Atorvastatin Calcium (Lipitor -) 10 mg PO HS [facility] Last Admin: 05/01/17 22:08 Dose: 10 mg Heparin Sodium (Porcine) (Heparin -) 5,000 unit SQ TID [facility] Last Admin: 05/02/17 14:04 Dose: Not Given Azithromycin 500 mg/ Dextrose 250 mls @ 250 mls/hr IVPB DAILY [facility] Last Admin: 05/02/17 10:25 Dose: 250 mls/hr Vancomycin HCl 1,000 mg/ (Dextrose) 250 mls @ 250 mls/hr IVPB BID@0700,1900 [facility] PRN Reason: Protocol Last Admin: 05/02/17 06:46 Dose: 250 mls/hr Piperacillin Sod/Tazobactam (Sod 3.375 gm/ Dextrose) 50 mls @ 100 mls/hr IVPB Q8H-IV [facility] PRN Reason: Protocol Last Admin: 05/02/17 10:25 Dose: 100 mls/hr Insulin Aspart (Novolog Vial Sliding Scale -) 1 vial SQ ACHS [facility] PRN Reason: Protocol Last Admin: 05/02/17 11:54 Dose: Not Given Qvar (Beclomethasone ) 80mcg Inhaler_Non- Formulary Med 1 each IH BID [facility] Last Admin: 05/02/17 09:41 Dose: 1 each Polyethylene Glycol (Miralax (For Daily Use) -) 17 gm PO DAILY [facility] Last Admin: 05/02/17 09:42 Dose: Not Given Prednisone (Deltasone -) 20 mg PO DAILY [facility] Last Admin: 05/02/17 09:39 Dose: 20 mg Tamsulosin HCl (Flomax -) 0.4 mg PO DAILY@0830 [facility] Last Admin: 05/02/17 09:39 Dose: 0.4 mg Tiotropium [place] (Spiriva -) 1 puff IH DAILY [facility] Last Admin: 05/02/17 09:41 Dose: 1 puff - Objective Vital Signs: Vital Signs Temperature 98.5 F 05/02/17 13:45 Pulse Rate 88 05/02/17 13:45 Respiratory Rate 20 05/02/17 13:45 Blood Pressure 118/64 05/02/17 13:45 O2 Sat by Pulse Oximetry (%) 99 05/02/17 10:00 Labs: CBC, BMP 05/02/17 06:00 05/02/17 06:00 INR, PTT INR 1.24 (0.82-1.09) H 04/25/17 21:18
[2017-05-02] MEDS: FUROSEMIDE 20 MG TABLET (FP) PO SCH (14:50)
--- NOTE | 2017-05-02 16:55 | PN ---
Progress Note, Physician Chief Complaint: AWAKE ALERT CHART AND NOTES REVIEWED THIS IS MY FIRST ENCOUNTER WITH THIS PATIENT - Current Medication List Current Medications: Active Medications Acetaminophen (Tylenol -) 650 mg PO Q4H PRN PRN Reason: FEVER OR PAIN Last Admin: 05/01/17 04:11 Dose: 650 mg Alprazolam (Xanax -) 0.25 mg PO BID [facility] Last Admin: 05/02/17 09:39 Dose: 0.25 mg Arformoterol Tartrate (Brovana (Restricted To Pulmonology/Resp) -) 1 amp NEB BID [facility] Last Admin: 05/02/17 10:00 Dose: 1 amp Aspirin (Asa -) 81 mg PO DAILY [facility] Last Admin: 05/02/17 09:39 Dose: 81 mg Atorvastatin Calcium (Lipitor -) 10 mg PO HS [facility] Last Admin: 05/01/17 22:08 Dose: 10 mg Furosemide (Lasix -) 20 mg PO DAILY [facility] Last Admin: 05/02/17 14:50 Dose: 20 mg Heparin Sodium (Porcine) (Heparin -) 5,000 unit SQ TID [facility] Last Admin: 05/02/17 14:04 Dose: Not Given Azithromycin 500 mg/ Dextrose 250 mls @ 250 mls/hr IVPB DAILY [facility] Last Admin: 05/02/17 10:25 Dose: 250 mls/hr Vancomycin HCl 1,000 mg/ (Dextrose) 250 mls @ 250 mls/hr IVPB BID@0700,1900 TA PRN Reason: Protocol Last Admin: 05/02/17 06:46 Dose: 250 mls/hr Piperacillin Sod/Tazobactam (Sod 3.375 gm/ Dextrose) 50 mls @ 100 mls/hr IVPB Q8H-IV TA PRN Reason: Protocol Last Admin: 05/02/17 10:25 Dose: 100 mls/hr Insulin Aspart (Novolog Vial Sliding Scale -) 1 vial SQ ACHS TA PRN Reason: Protocol Last Admin: 05/02/17 11:54 Dose: Not Given Qvar (Beclomethasone ) 80mcg Inhaler_Non- Formulary Med 1 each IH BID [facility] Last Admin: 05/02/17 09:41 Dose: 1 each Polyethylene Glycol (Miralax (For Daily Use) -) 17 gm PO DAILY [facility] Last Admin: 05/02/17 09:42 Dose: Not Given Prednisone (Deltasone -) 20 mg PO DAILY [facility] Last Admin: 05/02/17 09:39 Dose: 20 mg Tamsulosin HCl (Flomax -) 0.4 mg PO DAILY@0830 [facility] Last Admin: 05/02/17 09:39 Dose: 0.4 mg Tiotropium [place] (Spiriva -) 1 puff IH DAILY [facility] Last Admin: 05/02/17 09:41 Dose: 1 puff - Objective Vital Signs: Vital Signs Temperature 98.5 F 05/02/17 13:45 Pulse Rate 88 05/02/17 13:45 Respiratory Rate 20 05/02/17 13:45 Blood Pressure 118/64 05/02/17 13:45 O2 Sat by Pulse Oximetry (%) 99 05/02/17 10:00 Constitutional: Yes: Mild Distress Eyes: Yes: WNL HENT: Yes: WNL Neck: Yes: WNL Cardiovascular: Yes: WNL Respiratory: Yes: On Nasal O2, Poor Air Entry, SOB Gastrointestinal: Yes: WNL Genitourinary: Yes: WNL Musculoskeletal: Yes: WNL Extremities: Yes: WNL Edema: LLE: Trace, RLE: Trace Peripheral Pulses WNL: Yes Integumentary: Yes: WNL Wound/Incision: Yes: Clean/Dry Neurological: Yes: WNL ...Motor Strength: WNL Psychiatric: Yes: WNL Labs: CBC, BMP 05/02/17 06:00 05/02/17 06:00 INR, PTT INR 1.24 (0.82-1.09) H 04/25/17 21:18 Problem List - Problems (1) Diastolic dysfunction Code(s): I51.9 - HEART DISEASE, UNSPECIFIED (2) Acute and chronic respiratory failure Code(s): J96.20 - ACUTE AND CHR RESP FAILURE, UNSP W HYPOXIA OR HYPERCAPNIA Qualifiers: Respiratory failure complication: hypoxia and hypercapnia Qualified Code(s) : J96.21 - Acute and chronic respiratory failure with hypoxia; J96.22 - Acute and chronic respiratory failure with hypercapnia; J96.22 - Acute and chronic respiratory failure with hypercapnia; J96.22 - Acute and chronic respiratory failure with hypercapnia (3) Anemia Code(s): D64.9 - ANEMIA, UNSPECIFIED Qualifiers: Anemia type: unspecified type Qualified Code(s): D64.9 - Anemia, unspecified (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
--- NOTE | 2017-05-02 19:02 | PN ---
Progress Note, Physician History of Present Illness: No c/o cough R pleuritic chest pain resolved Afebrile with slightly elevated WBC on prednisone Chronically dyspneic at rest Sputum c/s MRSA, yeast CXR improved RUL infiltrate - Current Medication List Current Medications: Active Medications Acetaminophen (Tylenol -) 650 mg PO Q4H PRN PRN Reason: FEVER OR PAIN Last Admin: 05/01/17 04:11 Dose: 650 mg Alprazolam (Xanax -) 0.25 mg PO BID [facility] Last Admin: 05/02/17 09:39 Dose: 0.25 mg Arformoterol Tartrate (Brovana (Restricted To Pulmonology/Resp) -) 1 amp NEB BID [facility] Last Admin: 05/02/17 10:00 Dose: 1 amp Aspirin (Asa -) 81 mg PO DAILY [facility] Last Admin: 05/02/17 09:39 Dose: 81 mg Atorvastatin Calcium (Lipitor -) 10 mg PO HS [facility] Last Admin: 05/01/17 22:08 Dose: 10 mg Furosemide (Lasix -) 20 mg PO DAILY [facility] Last Admin: 05/02/17 14:50 Dose: 20 mg Heparin Sodium (Porcine) (Heparin -) 5,000 unit SQ TID [facility] Last Admin: 05/02/17 14:04 Dose: Not Given Azithromycin 500 mg/ Dextrose 250 mls @ 250 mls/hr IVPB DAILY [facility] Last Admin: 05/02/17 10:25 Dose: 250 mls/hr Vancomycin HCl 1,000 mg/ (Dextrose) 250 mls @ 250 mls/hr IVPB BID@0700,1900 [facility] PRN Reason: Protocol Last Admin: 05/02/17 18:34 Dose: 250 mls/hr Piperacillin Sod/Tazobactam (Sod 3.375 gm/ Dextrose) 50 mls @ 100 mls/hr IVPB Q8H-IV TA PRN Reason: Protocol Last Admin: 05/02/17 18:34 Dose: 100 mls/hr Insulin Aspart (Novolog Vial Sliding Scale -) 1 vial SQ ACHS [facility] PRN Reason: Protocol Last Admin: 05/02/17 17:00 Dose: Not Given Qvar (Beclomethasone ) 80mcg Inhaler_Non- Formulary Med 1 each IH BID [facility] Last Admin: 05/02/17 09:41 Dose: 1 each Polyethylene Glycol (Miralax (For Daily Use) -) 17 gm PO DAILY [facility] Last Admin: 05/02/17 09:42 Dose: Not Given Prednisone (Deltasone -) 20 mg PO DAILY [facility] Last Admin: 05/02/17 09:39 Dose: 20 mg Tamsulosin HCl (Flomax -) 0.4 mg PO DAILY@0830 [facility] Last Admin: 05/02/17 09:39 Dose: 0.4 mg Tiotropium [place] (Spiriva -) 1 puff IH DAILY [facility] Last Admin: 05/02/17 09:41 Dose: 1 puff - Objective Vital Signs: Vital Signs Temperature 98.5 F 05/02/17 13:45 Pulse Rate 88 05/02/17 13:45 Respiratory Rate 20 05/02/17 13:45 Blood Pressure 118/64 05/02/17 13:45 O2 Sat by Pulse Oximetry (%) 99 05/02/17 10:00 Constitutional: Yes: No Distress Cardiovascular: Yes: Regular Rate and Rhythm, S1, S2 Respiratory: Yes: Diminished Gastrointestinal: Yes: Normal Bowel Sounds, Soft Edema: No Labs: CBC, BMP 05/02/17 06:00 05/02/17 06:00 INR, PTT INR 1.24 (0.82-1.09) H 04/25/17 21:18 Assessment/Plan RUL pneumonia clinically improved Exacerbation COPD Chronic LINDSEY cavitary lesion + Sputum MRSA Improving Continue zosyn + vancomycin
[2017-05-02] MEDS: ATORVASTATIN CA 10 MG TABLET (FP) PO SCH (23:00)
[2017-05-03] MEDS ORDERED: PT OWN MED DRAWER 7, Y5N ONE ×10 (01:18→17:44)
[2017-05-03] MEDS: PIPERACILLIN/TAZOB 3.375 GM 3.375 GM in DEXTROSE 5%-WATER - 50 ML IVPB SCH ×3 (02:22→17:32)
[2017-05-03] MEDS: INSULIN SLIDING SCALE (NOVOLOG) 1 VIAL SQ SCH ×4 (06:01→21:47)
[2017-05-03] MEDS: HEPARIN NA (PORCINE) 5,000 UNITS/ML 1ML VIAL SQ SCH ×3 (06:01→21:47)
[2017-05-03] MEDS: VANCOMYCIN 1,000 MG in DEXTROSE 5%-WATER - 250 ML IVPB SCH ×2 (06:19→18:07)
[2017-05-03 06:36] LABS: SERUM IRON 36 ug/dL (38-169); TOTAL IRON BINDING CAPACITY 334 ug/dL (250-450); UIBC 298 ug/dL (111-343)
--- NOTE | 2017-05-03 08:45 | PN ---
Progress Note (short form) - Note Progress Note: Chief Complaint: Events noted, notes reviewed, denies any chest pain, but reports persistent dyspnea although severity has decreased, denies any additional epistaxis History of Present Illness: Seen and examined on telemetry. Events noted, notes reviewed, denies any chest pain, but reports persistent dyspnea although severity has decreased, denies any additional epistaxis - Current Medication List Current Medications Acetaminophen (Tylenol -) 650 mg PO Q4H PRN PRN Reason: FEVER OR PAIN Last Admin: 05/01/17 04:11 Dose: 650 mg Alprazolam (Xanax -) 0.25 mg PO BID [facility] Last Admin: 05/02/17 23:00 Dose: 0.25 mg Arformoterol Tartrate (Brovana (Restricted To Pulmonology/Resp) -) 1 amp NEB BID [facility] Last Admin: 05/02/17 22:40 Dose: 1 amp Aspirin (Asa -) 81 mg PO DAILY [facility] Last Admin: 05/02/17 09:39 Dose: 81 mg Atorvastatin Calcium (Lipitor -) 10 mg PO HS [facility] Last Admin: 05/02/17 23:00 Dose: 10 mg Furosemide (Lasix -) 20 mg PO DAILY [facility] Last Admin: 05/02/17 14:50 Dose: 20 mg Heparin Sodium (Porcine) (Heparin -) 5,000 unit SQ TID [facility] Last Admin: 05/03/17 06:01 Dose: Not Given Vancomycin HCl 1,000 mg/ (Dextrose) 250 mls @ 250 mls/hr IVPB BID@0700,1900 [facility] PRN Reason: Protocol Last Admin: 05/03/17 06:19 Dose: 250 mls/hr Piperacillin Sod/Tazobactam (Sod 3.375 gm/ Dextrose) 50 mls @ 100 mls/hr IVPB Q8H-IV TA PRN Reason: Protocol Last Admin: 05/03/17 02:22 Dose: 100 mls/hr Insulin Aspart (Novolog Vial Sliding Scale -) 1 vial SQ ACHS [facility] PRN Reason: Protocol Last Admin: 05/03/17 06:01 Dose: Not Given Qvar (Beclomethasone ) 80mcg Inhaler_Non- Formulary Med 1 each IH BID [facility] Last Admin: 05/02/17 23:00 Dose: 1 each Polyethylene Glycol (Miralax (For Daily Use) -) 17 gm PO DAILY [facility] Last Admin: 05/02/17 09:42 Dose: Not Given Prednisone (Deltasone -) 20 mg PO DAILY [facility] Last Admin: 05/02/17 09:39 Dose: 20 mg Tamsulosin HCl (Flomax -) 0.4 mg PO DAILY@0830 [facility] Last Admin: 05/02/17 09:39 Dose: 0.4 mg Tiotropium [place] (Spiriva -) 1 puff IH DAILY [facility] Last Admin: 05/02/17 09:41 Dose: 1 puff - Review of Systems Cardiovascular: As noted above Respiratory: As noted above Gastrointestinal: denies: Nausea, Vomiting, Diarrhea, Constipation or Abdominal Pain Musculoskeletal: No symptoms reported Neurological: No symptoms reported - Objective Vital Signs: Last Vital Signs Temp Pulse Resp BP Pulse Ox 97.7 F 66 20 114/57 99 05/03/17 05:59 05/03/17 05:59 05/03/17 05:59 05/03/17 05:59 05/02/17 22:00 Intake & Output 04/30/17 05/01/17 05/02/17 05/03/17 23:59 23:59 23:59 23:59 Intake Total 110 570 570 240 Output Total 850 300 Balance -740 570 270 240 Weight 147 lb 8 oz 149 lb 4 oz 148 lb 1 oz Neck: Supple Negative JVD Cardiovascular: S1 S2 Regular Rate Rhythm Respiratory: Diminished breath sounds Bilaterally Gastrointestinal: Soft Benign Normal Bowel Sounds Ext: Negative Edema Labs: CBC, BMP 05/02/17 06:00 05/02/17 06:00 Hepatic Panel Total Bilirubin 0.3 mg/dL (0.2-1.0) D 05/02/17 06:00 AST 5 U/L (15-37) L D 05/02/17 06:00 ALT 27 U/L (12-78) 05/02/17 06:00 Alkaline Phosphatase 56 U/L (45-117) 05/02/17 06:00 Albumin 2.7 g/dl (3.4-5.0) L 05/02/17 06:00 INR, PTT INR 1.24 (0.82-1.09) H 04/25/17 21:18 Assessment/Plan ASSESSMENT: 1. Acute exacerbation of advanced chronic obstructive pulmonary disease on home oxygen therapy, probable pneumonia, resolving 2. 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 Diastolic LV dysfunction with class 0-I NYHA classification LV failure, compensated/euvolemic 4. HTN 5. Hypercholesterolemia 6. Anemia PLAN: 1. Antibiotics as per the primary team 2. Steroids and bronchodilators as per the pulmonary team 3. Continue ASA with close monitoring of CBC/hemoglobin 4. Continue Lipitor 5. Addition of ACEI or ARBS hemodynamics permitting and not contraindicated Ashley Bojorquez MD
[2017-05-03] MEDS: predniSONE 20 MG TABLET (UD) PO SCH (10:20)
[2017-05-03] MEDS: ALPRAZolam 0.25 MG TABLET PO SCH ×2 (10:20→21:46)
[2017-05-03] MEDS: ASPIRIN 81 MG CHEWABLE TABLETS PO SCH (10:20)
[2017-05-03] MEDS: FUROSEMIDE 20 MG TABLET (FP) PO SCH (10:20)
[2017-05-03] MEDS: TAMSULOSIN HCL 0.4 MG CAP.ER.24H (FP) PO SCH (10:20)
[2017-05-03] MEDS: QVAR 80 MCG IH SCH ×2 (10:21→21:47)
[2017-05-03] MEDS: POLYETHYLENE GLYCOL 3350 119 GM BTL PO SCH (10:22)
[2017-05-03] MEDS: ARFORMOTEROL TARTRATE 15 MCG/2 ML VIAL NEB SCH ×2 (10:56→22:35)
--- NOTE | 2017-05-03 12:40 | PN ---
Progress Note, Physician Chief Complaint: AWAKE EATING LUNCH ON 02 SUPPORT - Current Medication List Current Medications: Active Medications Acetaminophen (Tylenol -) 650 mg PO Q4H PRN PRN Reason: FEVER OR PAIN Last Admin: 05/01/17 04:11 Dose: 650 mg Alprazolam (Xanax -) 0.25 mg PO BID [facility] Last Admin: 05/03/17 10:20 Dose: 0.25 mg Arformoterol Tartrate (Brovana (Restricted To Pulmonology/Resp) -) 1 amp NEB BID [facility] Last Admin: 05/03/17 10:56 Dose: 1 amp Aspirin (Asa -) 81 mg PO DAILY [facility] Last Admin: 05/03/17 10:20 Dose: 81 mg Atorvastatin Calcium (Lipitor -) 10 mg PO HS [facility] Last Admin: 05/02/17 23:00 Dose: 10 mg Furosemide (Lasix -) 20 mg PO DAILY [facility] Last Admin: 05/03/17 10:20 Dose: 20 mg Heparin Sodium (Porcine) (Heparin -) 5,000 unit SQ TID [facility] Last Admin: 05/03/17 06:01 Dose: Not Given Vancomycin HCl 1,000 mg/ (Dextrose) 250 mls @ 250 mls/hr IVPB BID@0700,1900 [facility] PRN Reason: Protocol Last Admin: 05/03/17 06:19 Dose: 250 mls/hr Piperacillin Sod/Tazobactam (Sod 3.375 gm/ Dextrose) 50 mls @ 100 mls/hr IVPB Q8H-IV [facility] PRN Reason: Protocol Last Admin: 05/03/17 10:22 Dose: 100 mls/hr Insulin Aspart (Novolog Vial Sliding Scale -) 1 vial SQ ACHS [facility] PRN Reason: Protocol Last Admin: 05/03/17 11:53 Dose: Not Given Qvar (Beclomethasone ) 80mcg Inhaler_Non- Formulary Med 1 each IH BID [facility] Last Admin: 05/03/17 10:21 Dose: 1 each Polyethylene Glycol (Miralax (For Daily Use) -) 17 gm PO DAILY [facility] Last Admin: 05/03/17 10:22 Dose: Not Given Prednisone (Deltasone -) 20 mg PO DAILY [facility] Last Admin: 05/03/17 10:20 Dose: 20 mg Tamsulosin HCl (Flomax -) 0.4 mg PO DAILY@0830 [facility] Last Admin: 12/03/17 10:20 Dose: 0.4 mg Tiotropium [place] (Spiriva -) 1 puff IH DAILY [facility] Last Admin: 05/02/17 09:41 Dose: 1 puff - Objective Vital Signs: Vital Signs Temperature 98.2 F 05/03/17 10:00 Pulse Rate 88 05/03/17 10:00 Respiratory Rate 22 05/03/17 10:00 Blood Pressure 116/62 05/03/17 10:00 O2 Sat by Pulse Oximetry (%) 98 05/03/17 10:00 Constitutional: Yes: Mild Distress Eyes: Yes: WNL HENT: Yes: WNL Neck: Yes: WNL Cardiovascular: Yes: WNL Respiratory: Yes: On Nasal O2, Rhonchi Gastrointestinal: Yes: WNL Genitourinary: Yes: WNL Musculoskeletal: Yes: WNL Extremities: Yes: WNL Edema: No Peripheral Pulses WNL: Yes Integumentary: Yes: WNL Wound/Incision: Yes: Clean/Dry Neurological: Yes: WNL ...Motor Strength: WNL Psychiatric: Yes: WNL Labs: CBC, BMP 05/02/17 06:00 05/02/17 06:00 INR, PTT INR 1.24 (0.82-1.09) H 04/25/17 21:18 Problem List - Problems (1) Diastolic dysfunction Code(s): I51.9 - HEART DISEASE, UNSPECIFIED (2) Acute and chronic respiratory failure Code(s): J96.20 - ACUTE AND CHR RESP FAILURE, UNSP W HYPOXIA OR HYPERCAPNIA Qualifiers: Respiratory failure complication: hypoxia and hypercapnia Qualified Code(s) : J96.21 - Acute and chronic respiratory failure with hypoxia; J96.22 - Acute and chronic respiratory failure with hypercapnia; J96.22 - Acute and chronic respiratory failure with hypercapnia; J96.22 - Acute and chronic respiratory failure with hypercapnia (3) Anemia Code(s): D64.9 - ANEMIA, UNSPECIFIED Qualifiers: Anemia type: unspecified type Qualified Code(s): D64.9 - Anemia, unspecified (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
[2017-05-03] MEDS: TIOTROPIUM BROMIDE 18 MCG/INH (DEVICE W/ 5 CAPSULES) IH SCH (16:15)
[2017-05-03] MEDS: ATORVASTATIN CA 10 MG TABLET (FP) PO SCH (21:47)
[2017-05-04] MEDS ORDERED: PT OWN MED DRAWER 7, Y5N ONE ×5 (02:16→22:00)
[2017-05-04] MEDS: PIPERACILLIN/TAZOB 3.375 GM 3.375 GM in DEXTROSE 5%-WATER - 50 ML IVPB SCH ×3 (02:17→17:10)
[2017-05-04] MEDS: INSULIN SLIDING SCALE (NOVOLOG) 1 VIAL SQ SCH ×4 (06:04→22:06)
[2017-05-04] MEDS: HEPARIN NA (PORCINE) 5,000 UNITS/ML 1ML VIAL SQ SCH ×3 (06:04→22:05)
[2017-05-04] MEDS: VANCOMYCIN 1,000 MG in DEXTROSE 5%-WATER - 250 ML IVPB SCH ×2 (06:05→18:12)
[2017-05-04 07:07] LABS: MCH 28.8 pg (25.7-33.7); MCHC 33.2 g/dl (32.0-35.9); MEAN CELL VOLUME 86.8 fl (80-96); MEAN PLT VOLUME 8.7 fl (7.5-11.1); PLATELET COUNT 216 K/MM3 (134-434); RDW 14.2 % (11.9-15.9); WHITE BLOOD COUNT 9.6 K/mm3 (4.0-10.0)
[2017-05-04 07:35] LABS: ANION GAP 3 (8-16); CALCIUM 8.2 mg/dL (8.5-10.1); CO2 37 mmol/L (21-32); GLUCOSE,RANDOM 99 mg/dL (74-106)
[2017-05-04 07:36] LABS: CREATININE 0.8 mg/dL (0.7-1.3)
--- NOTE | 2017-05-04 08:01 | PN ---
Progress Note, Physician - Current Medication List Current Medications: Active Medications Acetaminophen (Tylenol -) 650 mg PO Q4H PRN PRN Reason: FEVER OR PAIN Last Admin: 05/01/17 04:11 Dose: 650 mg Alprazolam (Xanax -) 0.25 mg PO BID [facility] Last Admin: 05/03/17 21:46 Dose: 0.25 mg Arformoterol Tartrate (Brovana (Restricted To Pulmonology/Resp) -) 1 amp NEB BID [facility] Last Admin: 05/03/17 22:35 Dose: 1 amp Aspirin (Asa -) 81 mg PO DAILY [facility] Last Admin: 05/03/17 10:20 Dose: 81 mg Atorvastatin Calcium (Lipitor -) 10 mg PO HS [facility] Last Admin: 05/03/17 21:47 Dose: 10 mg Furosemide (Lasix -) 20 mg PO DAILY [facility] Last Admin: 05/03/17 10:20 Dose: 20 mg Heparin Sodium (Porcine) (Heparin -) 5,000 unit SQ TID [facility] Last Admin: 05/04/17 06:04 Dose: Not Given Vancomycin HCl 1,000 mg/ (Dextrose) 250 mls @ 250 mls/hr IVPB BID@0700,1900 [facility] PRN Reason: Protocol Last Admin: 05/04/17 06:05 Dose: 250 mls/hr Piperacillin Sod/Tazobactam (Sod 3.375 gm/ Dextrose) 50 mls @ 100 mls/hr IVPB Q8H-IV TA PRN Reason: Protocol Last Admin: 05/04/17 02:17 Dose: 100 mls/hr Insulin Aspart (Novolog Vial Sliding Scale -) 1 vial SQ ACHS [facility] PRN Reason: Protocol Last Admin: 05/04/17 06:04 Dose: Not Given Qvar (Beclomethasone ) 80mcg Inhaler_Non- Formulary Med 1 each IH BID [facility] Last Admin: 05/03/17 21:47 Dose: 1 each Polyethylene Glycol (Miralax (For Daily Use) -) 17 gm PO DAILY [facility] Last Admin: 05/03/17 10:22 Dose: Not Given Prednisone (Deltasone -) 20 mg PO DAILY [facility] Last Admin: 05/03/17 10:20 Dose: 20 mg Tamsulosin HCl (Flomax -) 0.4 mg PO DAILY@0830 [facility] Last Admin: 05/03/17 10:20 Dose: 0.4 mg Tiotropium [place] (Spiriva -) 1 puff IH DAILY [facility] Last Admin: 05/03/17 16:15 Dose: Not Given - Objective Vital Signs: Vital Signs Temperature 98.6 F 05/04/17 06:00 Pulse Rate 59 L 05/04/17 06:00 Respiratory Rate 18 05/04/17 06:00 Blood Pressure 122/63 05/04/17 06:00 O2 Sat by Pulse Oximetry (%) 98 05/03/17 22:00 Cardiovascular: Yes: Regular Rate and Rhythm Respiratory: Yes: Regular, CTA Bilaterally, Diminished Gastrointestinal: Yes: Normal Bowel Sounds, Soft Labs: CBC, BMP 05/04/17 05:40 05/04/17 05:40 INR, PTT INR 1.24 (0.82-1.09) H 04/25/17 21:18 Problem List - Problems (1) COPD (chronic obstructive pulmonary disease) Code(s): J44.9 - CHRONIC OBSTRUCTIVE PULMONARY DISEASE, UNSPECIFIED (2) Pneumonia Code(s): J18.9 - PNEUMONIA, UNSPECIFIED ORGANISM Qualifiers: Pneumonia type: aspiration pneumonia Laterality: right Lung location: upper lobe of lung (3) Pulmonary cavitary lesion Code(s): J98.4 - OTHER DISORDERS OF LUNG Assessment/Plan - Problems (1) Pneumonia Assessment/Plan: RUL pneumonia MRSA in sputum vanco and azithromycin cxr to follow up resolution of pna- slight improvement noted in right apical area pulm and ID on board wbc count is trending down Code(s): J18.9 - PNEUMONIA, UNSPECIFIED ORGANISM Qualifiers: Pneumonia type: aspiration pneumonia Laterality: right Lung location: upper lobe of lung (2) Acute and chronic respiratory failure Assessment/Plan: oxygen bronchodilators prednsione iv to po- tapering spiriva Code(s): J96.20 - ACUTE AND CHR RESP FAILURE, UNSP W HYPOXIA OR HYPERCAPNIA Qualifiers: Respiratory failure complication: hypoxia and hypercapnia Qualified Code(s) : J96.21 - Acute and chronic respiratory failure with hypoxia; J96.22 - Acute and chronic respiratory failure with hypercapnia; J96.22 - Acute and chronic respiratory failure with hypercapnia; J96.22 - Acute and chronic respiratory failure with hypercapnia (3) BPH (benign prostatic hypertrophy) Assessment/Plan: flomax Code(s): N40.0 - BENIGN PROSTATIC HYPERPLASIA WITHOUT LOWER URINRY TRACT SYMP (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
[2017-05-04] MEDS: ARFORMOTEROL TARTRATE 15 MCG/2 ML VIAL NEB SCH ×2 (10:25→22:00)
[2017-05-04] MEDS: ASPIRIN 81 MG CHEWABLE TABLETS PO SCH (10:55)
[2017-05-04] MEDS: TAMSULOSIN HCL 0.4 MG CAP.ER.24H (FP) PO SCH (10:55)
[2017-05-04] MEDS: predniSONE 20 MG TABLET (UD) PO SCH (10:55)
[2017-05-04] MEDS: FUROSEMIDE 20 MG TABLET (FP) PO SCH (10:55)
[2017-05-04] MEDS: ALPRAZolam 0.25 MG TABLET PO SCH ×2 (10:55→22:07)
[2017-05-04] MEDS: TIOTROPIUM BROMIDE 18 MCG/INH (DEVICE W/ 5 CAPSULES) IH SCH (10:56)
[2017-05-04] MEDS: POLYETHYLENE GLYCOL 3350 119 GM BTL PO SCH (10:57)
[2017-05-04] MEDS: QVAR 80 MCG IH SCH ×2 (10:57→22:05)
--- NOTE | 2017-05-04 12:09 | PN ---
Progress Note, Physician Chief Complaint: Feels better Less SOB History of Present Illness: Patient was seen and examined. Awake and alert. Chart was reviewed Denies chest pain or palpitations Less SOB and cough Tolerating therapy - Current Medication List Current Medications: Active Medications Acetaminophen (Tylenol -) 650 mg PO Q4H PRN PRN Reason: FEVER OR PAIN Last Admin: 05/01/17 04:11 Dose: 650 mg Alprazolam (Xanax -) 0.25 mg PO BID [facility] Last Admin: 05/04/17 10:55 Dose: 0.25 mg Arformoterol Tartrate (Brovana (Restricted To Pulmonology/Resp) -) 1 amp NEB BID [facility] Last Admin: 05/03/17 22:35 Dose: 1 amp Aspirin (Asa -) 81 mg PO DAILY [facility] Last Admin: 05/04/17 10:55 Dose: 81 mg Atorvastatin Calcium (Lipitor -) 10 mg PO HS [facility] Last Admin: 05/03/17 21:47 Dose: 10 mg Furosemide (Lasix -) 20 mg PO DAILY [facility] Last Admin: 05/04/17 10:55 Dose: 20 mg Heparin Sodium (Porcine) (Heparin -) 5,000 unit SQ TID [facility] Last Admin: 05/04/17 06:04 Dose: Not Given Vancomycin HCl 1,000 mg/ (Dextrose) 250 mls @ 250 mls/hr IVPB BID@0700,1900 [facility] PRN Reason: Protocol Last Admin: 05/04/17 06:05 Dose: 250 mls/hr Piperacillin Sod/Tazobactam (Sod 3.375 gm/ Dextrose) 50 mls @ 100 mls/hr IVPB Q8H-IV TA PRN Reason: Protocol Last Admin: 05/04/17 10:55 Dose: 100 mls/hr Insulin Aspart (Novolog Vial Sliding Scale -) 1 vial SQ ACHS [facility] PRN Reason: Protocol Last Admin: 05/04/17 11:30 Dose: Not Given Qvar (Beclomethasone ) 80mcg Inhaler_Non- Formulary Med 1 each IH BID [facility] Last Admin: 05/04/17 10:57 Dose: 1 each Polyethylene Glycol (Miralax (For Daily Use) -) 17 gm PO DAILY [facility] Last Admin: 05/04/17 10:57 Dose: Not Given Prednisone (Deltasone -) 20 mg PO DAILY [facility] Last Admin: 05/04/17 10:55 Dose: 20 mg Tamsulosin HCl (Flomax -) 0.4 mg PO DAILY@0830 [facility] Last Admin: 05/04/17 10:55 Dose: 0.4 mg Tiotropium [place] (Spiriva -) 1 puff IH DAILY [facility] Last Admin: 05/04/17 10:56 Dose: 1 puff - Objective Vital Signs: Vital Signs Temperature 98.6 F 05/04/17 06:00 Pulse Rate 59 L 05/04/17 06:00 Respiratory Rate 18 05/04/17 06:00 Blood Pressure 122/63 05/04/17 06:00 O2 Sat by Pulse Oximetry (%) 98 05/03/17 22:00 Neck: Yes: Supple Cardiovascular: Yes: Regular Rate and Rhythm, S1, S2 Respiratory: Yes: Diminished Gastrointestinal: Yes: Normal Bowel Sounds, Soft. No: Tenderness Edema: No Additional Findings/Remarks: - Review of Systems Constitutional: denies: Fever Cardiovascular: reports: Chest Pain, Shortness of Breath. denies: Palpitations Respiratory: reports: Cough, SOB. denies: Hemoptysis, Orthopnea, PND Gastrointestinal: denies: Abdominal Pain, Constipation, Diarrhea, Melena, Nausea , Rectal Bleeding, Vomiting Genitourinary: denies: Dysuria, Hematuria Neurological: denies: Dizziness, Headache, Seizure, Syncope Labs: CBC, BMP 05/04/17 05:40 05/04/17 05:40 Problem List - Problems (1) Fever Code(s): R50.9 - FEVER, UNSPECIFIED Qualifiers: Fever type: unspecified Qualified Code(s): R50.9 - Fever, unspecified (2) Acute and chronic respiratory failure Code(s): J96.20 - ACUTE AND CHR RESP FAILURE, UNSP W HYPOXIA OR HYPERCAPNIA Qualifiers: Respiratory failure complication: hypoxia and hypercapnia Qualified Code(s) : J96.21 - Acute and chronic respiratory failure with hypoxia; J96.22 - Acute and chronic respiratory failure with hypercapnia; J96.22 - Acute and chronic respiratory failure with hypercapnia; J96.22 - Acute and chronic respiratory failure with hypercapnia (3) Arteriosclerotic heart disease (ASHD) Code(s): I25.10 - ATHSCL HEART DISEASE OF [place] CORONARY ARTERY W/O ANG PCTRS (4) COPD (chronic obstructive pulmonary disease) Code(s): J44.9 - CHRONIC OBSTRUCTIVE PULMONARY DISEASE, UNSPECIFIED (5) Hyperlipidemia Code(s): E78.5 - HYPERLIPIDEMIA, UNSPECIFIED Qualifiers: Hyperlipidemia type: pure hypercholesterolemia Qualified Code(s): E78.00 - Pure hypercholesterolemia, unspecified; E78.0 - Pure hypercholesterolemia (6) Pneumonia Code(s): J18.9 - PNEUMONIA, UNSPECIFIED ORGANISM Qualifiers: Pneumonia type: aspiration pneumonia Laterality: right Lung location: upper lobe of lung Assessment/Plan 1. Clinical presentation compatible with pneumomia with pulmonary consolidation 2. Advanced COPD and interstitial lung disease on home oxygen therapy - exacerbation 3. Coronary artery disease (non-obstructive), angina pectoris 4. Diastolic LV dysfunction with class 0-1 NYHA LV failure 5. HTN/HCVD 6. Hypercholesterolemia 7. Anemia PLAN: 1. Antibiotic coverage 2. Bronchodilator, steroids and O2 3. Continue ASA 81 mg once a day 4. Continue statin therapy 5. Monitor electrolytes 6. Ambulate as tolerated Further plans are to follow Toni Mares MD
--- NOTE | 2017-05-04 14:02 | PN ---
Progress Note, Physician History of Present Illness: No cough R pleuritic chest pain resolved Afebrile with slightly elevated WBC on prednisone Chronically dyspneic at rest Sputum c/s MRSA, yeast CXR improved RUL infiltrate - Current Medication List Current Medications: Active Medications Acetaminophen (Tylenol -) 650 mg PO Q4H PRN PRN Reason: FEVER OR PAIN Last Admin: 05/01/17 04:11 Dose: 650 mg Alprazolam (Xanax -) 0.25 mg PO BID [facility] Last Admin: 05/04/17 10:55 Dose: 0.25 mg Arformoterol Tartrate (Brovana (Restricted To Pulmonology/Resp) -) 1 amp NEB BID [facility] Last Admin: 05/04/17 10:25 Dose: 1 amp Aspirin (Asa -) 81 mg PO DAILY [facility] Last Admin: 05/04/17 10:55 Dose: 81 mg Atorvastatin Calcium (Lipitor -) 10 mg PO HS [facility] Last Admin: 05/03/17 21:47 Dose: 10 mg Furosemide (Lasix -) 20 mg PO DAILY [facility] Last Admin: 05/04/17 10:55 Dose: 20 mg Heparin Sodium (Porcine) (Heparin -) 5,000 unit SQ TID [facility] Last Admin: 05/04/17 13:02 Dose: Not Given Vancomycin HCl 1,000 mg/ (Dextrose) 250 mls @ 250 mls/hr IVPB BID@0700,1900 [facility] PRN Reason: Protocol Last Admin: 05/04/17 06:05 Dose: 250 mls/hr Piperacillin Sod/Tazobactam (Sod 3.375 gm/ Dextrose) 50 mls @ 100 mls/hr IVPB Q8H-IV [facility] PRN Reason: Protocol Last Admin: 05/04/17 10:55 Dose: 100 mls/hr Insulin Aspart (Novolog Vial Sliding Scale -) 1 vial SQ ACHS [facility] PRN Reason: Protocol Last Admin: 05/04/17 11:30 Dose: Not Given Qvar (Beclomethasone ) 80mcg Inhaler_Non- Formulary Med 1 each IH BID [facility] Last Admin: 05/04/17 10:57 Dose: 1 each Polyethylene Glycol (Miralax (For Daily Use) -) 17 gm PO DAILY [facility] Last Admin: 05/04/17 10:57 Dose: Not Given Prednisone (Deltasone -) 20 mg PO DAILY [facility] Last Admin: 12/04/17 10:55 Dose: 20 mg Tamsulosin HCl (Flomax -) 0.4 mg PO DAILY@0830 [facility] Last Admin: 05/04/17 10:55 Dose: 0.4 mg Tiotropium [place] (Spiriva -) 1 puff IH DAILY [facility] Last Admin: 05/04/17 10:56 Dose: 1 puff - Objective Vital Signs: Vital Signs Temperature 97.4 F L 05/04/17 10:00 Pulse Rate 74 05/04/17 10:25 Respiratory Rate 18 05/04/17 10:00 Blood Pressure 110/67 05/04/17 10:00 O2 Sat by Pulse Oximetry (%) 98 05/04/17 10:25 Constitutional: Yes: No Distress Eyes: Yes: Conjunctiva Clear Neck: Yes: Thyromegaly Cardiovascular: Yes: S1, S2 Respiratory: Yes: Diminished Gastrointestinal: Yes: Normal Bowel Sounds, Soft. No: Tenderness Edema: Yes Edema: LLE: 1+, RLE: 1+ Labs: CBC, BMP 05/04/17 05:40 05/04/17 05:40 INR, PTT INR 1.24 (0.82-1.09) H 04/25/17 21:18 Assessment/Plan RUL pneumonia clinically improved Exacerbation COPD Chronic LINDSEY cavitary lesion + Sputum MRSA Improving Continue zosyn + vancomycin
[2017-05-04] MEDS: ATORVASTATIN CA 10 MG TABLET (FP) PO SCH (22:06)
[2017-05-05] MEDS ORDERED: PT OWN MED DRAWER 7, Y5N ONE ×4 (01:41→21:09)
[2017-05-05] MEDS: PIPERACILLIN/TAZOB 3.375 GM 3.375 GM in DEXTROSE 5%-WATER - 50 ML IVPB SCH ×3 (01:45→17:31)
[2017-05-05] MEDS: INSULIN SLIDING SCALE (NOVOLOG) 1 VIAL SQ SCH ×4 (06:47→21:12)
[2017-05-05] MEDS: HEPARIN NA (PORCINE) 5,000 UNITS/ML 1ML VIAL SQ SCH ×3 (06:47→21:14)
[2017-05-05] MEDS: VANCOMYCIN 1,000 MG in DEXTROSE 5%-WATER - 250 ML IVPB SCH ×2 (06:48→18:21)
[2017-05-05] MEDS: ACETAMINOPHEN 325 MG TABLET (FP) PO PRN (06:49)
[2017-05-05] MEDS: ARFORMOTEROL TARTRATE 15 MCG/2 ML VIAL NEB SCH ×2 (09:35→21:40)
--- NOTE | 2017-05-05 09:45 | PN ---
Progress Note (short form) - Note Progress Note: Seen and examined he says he feels "great" O/E: Constitutional: Yes: Well Nourished, No Distress Eyes: Yes: Conjunctiva Clear HENT: Yes: Atraumatic, Normocephalic Neck: Yes: Supple, Trachea Midline Cardiovascular: Yes: Regular Rate and Rhythm Respiratory: Yes: Regular, CTA Bilaterally Gastrointestinal: Yes: Normal Bowel Sounds, Soft Extremities: Yes: WNL Edema: No Neurological: Yes: Alert, Oriented Psychiatric: Yes: Alert, Oriented Last Vital Signs Temp Pulse Resp BP Pulse Ox 97.6 F 75 20 132/67 98 05/05/17 06:00 05/05/17 06:00 05/05/17 06:00 05/05/17 06:00 05/04/17 21:00 CBC, BMP 05/04/17 05:40 05/04/17 05:40 Current Medications Generic Name Dose Route Start Last Admin Trade Name Freq PRN Reason Stop Dose Admin Acetaminophen 650 mg 04/25/17 23:04 05/05/17 06:49 Tylenol - PO 650 mg Q4H PRN Administration FEVER OR PAIN Alprazolam 0.25 mg 04/26/17 10:00 05/04/17 22:07 Xanax - PO Not Given BID TA Arformoterol Tartrate 1 amp 04/26/17 10:00 05/04/17 22:00 Brovana (Restricted To Pulmonology/Resp) - NEB 1 amp BID TA Administration Aspirin 81 mg 04/26/17 10:00 05/04/17 10:55 Asa - PO 81 mg DAILY TA Administration Atorvastatin Calcium 10 mg 04/26/17 22:00 05/04/17 22:06 Lipitor - PO 10 mg HS TA Administration Furosemide 20 mg 05/02/17 14:30 05/04/17 10:55 Lasix - PO 20 mg DAILY TA Administration Heparin Sodium (Porcine) 5,000 unit 04/26/17 06:00 05/05/17 06:47 Heparin - SQ Not Given TID TA Vancomycin HCl 1,000 mg/ 250 mls @ 250 mls/hr 04/28/17 19:00 05/05/17 06:48 Dextrose IVPB 250 mls/hr BID@0700,1900 TA Administration Protocol Piperacillin Sod/Tazobactam 50 mls @ 100 mls/hr 05/01/17 14:00 05/05/17 01:45 Sod 3.375 gm/ Dextrose IVPB 100 mls/hr Q8H-IV TA Administration Protocol Insulin Aspart 1 vial 04/29/17 11:00 05/05/17 06:47 Novolog Vial Sliding Scale - SQ Not Given ACHS TA Protocol Qvar (Beclomethasone 1 each 04/29/17 10:00 05/04/17 22:05 ) 80mcg Inhaler_Non- IH 1 each Formulary Med BID TA Administration Polyethylene Glycol 17 gm 04/29/17 13:30 05/04/17 10:57 Miralax (For Daily Use) - PO Not Given DAILY TA Prednisone 20 mg 04/29/17 09:30 05/04/17 10:55 Deltasone - PO 20 mg DAILY [facility] Administration Tamsulosin HCl 0.4 mg 04/26/17 08:30 05/04/17 10:55 Flomax - PO 0.4 mg DAILY@0830 TA Administration Tiotropium [place] 1 puff 04/26/17 10:00 05/04/17 10:56 Spiriva - IH 1 puff DAILY TA Administration Normocytic Normochromic anemia. Hgb stable GI w/u likely OP per pt preference can take po iron supplements STEPHANIE pending. COPD per Pulm MRSA: as per ID
[2017-05-05] MEDS: TAMSULOSIN HCL 0.4 MG CAP.ER.24H (FP) PO SCH (09:53)
[2017-05-05] MEDS: ASPIRIN 81 MG CHEWABLE TABLETS PO SCH (09:53)
[2017-05-05] MEDS: predniSONE 20 MG TABLET (UD) PO SCH (09:53)
[2017-05-05] MEDS: FUROSEMIDE 20 MG TABLET (FP) PO SCH (09:53)
[2017-05-05] MEDS: POLYETHYLENE GLYCOL 3350 119 GM BTL PO SCH (09:56)
[2017-05-05] MEDS: QVAR 80 MCG IH SCH ×2 (10:00→21:34)
[2017-05-05] MEDS: ALPRAZolam 0.25 MG TABLET PO SCH ×3 (10:04→21:19)
[2017-05-05] MEDS: TIOTROPIUM BROMIDE 18 MCG/INH (DEVICE W/ 5 CAPSULES) IH SCH (10:09)
--- NOTE | 2017-05-05 11:17 | PN ---
Progress Note, Physician History of Present Illness: NAD, sitting at the edge of the bed Sputum Culture shows MRSA -on IV abx -ID on board - Current Medication List Current Medications: Active Medications Acetaminophen (Tylenol -) 650 mg PO Q4H PRN PRN Reason: FEVER OR PAIN Last Admin: 05/05/17 06:49 Dose: 650 mg Alprazolam (Xanax -) 0.25 mg PO BID [facility] Last Admin: 05/05/17 10:04 Dose: Not Given Arformoterol Tartrate (Brovana (Restricted To Pulmonology/Resp) -) 1 amp NEB BID [facility] Last Admin: 05/04/17 22:00 Dose: 1 amp Aspirin (Asa -) 81 mg PO DAILY [facility] Last Admin: 05/05/17 09:53 Dose: 81 mg Atorvastatin Calcium (Lipitor -) 10 mg PO HS [facility] Last Admin: 05/04/17 22:06 Dose: 10 mg Ferrous Sulfate (Feosol -) 325 mg PO BID [facility] Furosemide (Lasix -) 20 mg PO DAILY [facility] Last Admin: 05/05/17 09:53 Dose: 20 mg Heparin Sodium (Porcine) (Heparin -) 5,000 unit SQ TID [facility] Last Admin: 05/05/17 06:47 Dose: Not Given Vancomycin HCl 1,000 mg/ (Dextrose) 250 mls @ 250 mls/hr IVPB BID@0700,1900 [facility] PRN Reason: Protocol Last Admin: 05/05/17 06:48 Dose: 250 mls/hr Piperacillin Sod/Tazobactam (Sod 3.375 gm/ Dextrose) 50 mls @ 100 mls/hr IVPB Q8H-IV TA PRN Reason: Protocol Last Admin: 05/05/17 09:54 Dose: 100 mls/hr Insulin Aspart (Novolog Vial Sliding Scale -) 1 vial SQ ACHS [facility] PRN Reason: Protocol Last Admin: 05/05/17 06:47 Dose: Not Given Qvar (Beclomethasone ) 80mcg Inhaler_Non- Formulary Med 1 each IH BID [facility] Last Admin: 05/04/17 22:05 Dose: 1 each Polyethylene Glycol (Miralax (For Daily Use) -) 17 gm PO DAILY [facility] Last Admin: 05/05/17 09:56 Dose: Not Given Prednisone (Deltasone -) 20 mg PO DAILY [facility] Last Admin: 05/05/17 09:53 Dose: 20 mg Tamsulosin HCl (Flomax -) 0.4 mg PO DAILY@0830 [facility] Last Admin: 05/05/17 09:53 Dose: 0.4 mg Tiotropium [place] (Spiriva -) 1 puff IH DAILY [facility] Last Admin: 05/05/17 10:09 Dose: 1 puff - Objective Vital Signs: Vital Signs Temperature 97.6 F 05/05/17 06:00 Pulse Rate 75 05/05/17 06:00 Respiratory Rate 20 05/05/17 06:00 Blood Pressure 132/67 05/05/17 06:00 O2 Sat by Pulse Oximetry (%) 98 05/04/17 21:00 Constitutional: Yes: Well Nourished, No Distress, Calm Cardiovascular: Yes: Regular Rate and Rhythm Respiratory: Yes: Regular, Diminished (diffuse) Musculoskeletal: Yes: WNL Extremities: Yes: WNL Edema: No Peripheral Pulses WNL: Yes Neurological: Yes: Alert, Oriented Psychiatric: Yes: Alert, Oriented Labs: CBC, BMP 05/04/17 05:40 05/04/17 05:40 INR, PTT INR 1.24 (0.82-1.09) H 04/25/17 21:18 Problem List - Problems (1) MRSA (methicillin resistant Staphylococcus aureus) colonization Assessment/Plan: -ID on board -IV abx Code(s): Z22.322 - CARRIER OR SUSPECTED CARRIER OF METHICILLIN RESIS STAPH (2) Fever Assessment/Plan: afebrile Code(s): R50.9 - FEVER, UNSPECIFIED Qualifiers: Fever type: unspecified Qualified Code(s): R50.9 - Fever, unspecified (3) Anemia Assessment/Plan: -stable -iron sat low -hematology on board -will give Venofer x 1 -stool Ob pending -GI on board Code(s): D64.9 - ANEMIA, UNSPECIFIED Qualifiers: Anemia type: unspecified type Qualified Code(s): D64.9 - Anemia, unspecified (4) Bilateral pneumonia Code(s): J18.9 - PNEUMONIA, UNSPECIFIED ORGANISM (5) CHF (congestive heart failure) Code(s): I50.9 - HEART FAILURE, UNSPECIFIED (6) COPD (chronic obstructive pulmonary disease) Code(s): J44.9 - CHRONIC OBSTRUCTIVE PULMONARY DISEASE, UNSPECIFIED Assessment/Plan see problem list
[2017-05-05] MEDS: FERROUS SO4 325 MG TABLET (FP) PO SCH ×2 (12:00→21:20)
[2017-05-05] MEDS ORDERED: IRON SUCROSE INJECTION 300 MG in SODIUM CHLORIDE 235 ML IVPB ONE (14:00)
--- NOTE | 2017-05-05 14:07 | PN ---
Progress Note (short form) - Note Progress Note: Chief Complaint: Events noted, notes reviewed, denies any chest pain, but reports persistent dyspnea History of Present Illness: Seen and examined on telemetry. Events noted, notes reviewed, denies any chest pain, but reports persistent dyspnea - Current Medication List Current Medications Acetaminophen (Tylenol -) 650 mg PO Q4H PRN PRN Reason: FEVER OR PAIN Last Admin: 05/05/17 06:49 Dose: 650 mg Alprazolam (Xanax -) 0.25 mg PO BID [facility] Last Admin: 05/05/17 13:43 Dose: 0.25 mg Arformoterol Tartrate (Brovana (Restricted To Pulmonology/Resp) -) 1 amp NEB BID [facility] Last Admin: 05/05/17 09:35 Dose: 1 amp Aspirin (Asa -) 81 mg PO DAILY [facility] Last Admin: 05/05/17 09:53 Dose: 81 mg Atorvastatin Calcium (Lipitor -) 10 mg PO HS [facility] Last Admin: 05/04/17 22:06 Dose: 10 mg Ferrous Sulfate (Feosol -) 325 mg PO BID [facility] Furosemide (Lasix -) 20 mg PO DAILY [facility] Last Admin: 05/05/17 09:53 Dose: 20 mg Heparin Sodium (Porcine) (Heparin -) 5,000 unit SQ TID [facility] Last Admin: 05/05/17 13:40 Dose: Not Given Vancomycin HCl 1,000 mg/ (Dextrose) 250 mls @ 250 mls/hr IVPB BID@0700,1900 [facility] PRN Reason: Protocol Last Admin: 05/05/17 06:48 Dose: 250 mls/hr Piperacillin Sod/Tazobactam (Sod 3.375 gm/ Dextrose) 50 mls @ 100 mls/hr IVPB Q8H-IV TA PRN Reason: Protocol Last Admin: 05/05/17 09:54 Dose: 100 mls/hr Iron Sucrose 300 mg/ Sodium (Chloride) 250 mls @ 166.667 mls/hr IVPB ONCE ONE Stop: 05/05/17 15:29 Last Admin: 05/05/17 13:39 Dose: 166.667 mls/hr Insulin Aspart (Novolog Vial Sliding Scale -) 1 vial SQ ACHS [facility] PRN Reason: Protocol Last Admin: 05/05/17 11:51 Dose: Not Given Qvar (Beclomethasone ) 80mcg Inhaler_Non- Formulary Med 1 each IH BID [facility] Last Admin: 05/05/17 10:00 Dose: 1 each Polyethylene Glycol (Miralax (For Daily Use) -) 17 gm PO DAILY [facility] Last Admin: 05/05/17 09:56 Dose: Not Given Prednisone (Deltasone -) 20 mg PO DAILY [facility] Last Admin: 05/05/17 09:53 Dose: 20 mg Tamsulosin HCl (Flomax -) 0.4 mg PO DAILY@0830 [facility] Last Admin: 05/05/17 09:53 Dose: 0.4 mg Tiotropium [place] (Spiriva -) 1 puff IH DAILY [facility] Last Admin: 05/05/17 10:09 Dose: 1 puff - Review of Systems Cardiovascular: As noted above Respiratory: As noted above Gastrointestinal: denies: Nausea, Vomiting, Diarrhea, Constipation or Abdominal Pain Musculoskeletal: No symptoms reported Neurological: No symptoms reported - Objective Vital Signs: Last Vital Signs Temp Pulse Resp BP Pulse Ox 97.6 F 79 20 132/67 98 05/05/17 06:00 05/05/17 10:20 05/05/17 06:00 05/05/17 06:00 05/05/17 10:20 Intake & Output 05/02/17 05/03/17 05/04/17 05/05/17 23:59 23:59 23:59 23:59 Intake Total 570 1030 1940 780 Output Total 300 300 200 Balance 048 255 2500 780 Weight 149 lb 4 oz 148 lb 1 oz 148 lb Neck: Supple Negative JVD Cardiovascular: S1 S2 Regular Rate Rhythm Respiratory: Diminished breath sounds Bilaterally Gastrointestinal: Soft Benign Normal Bowel Sounds Ext: Negative Edema Labs: CBC, BMP 05/04/17 05:40 05/04/17 05:40 Hepatic Panel Total Bilirubin 0.3 mg/dL (0.2-1.0) D 05/02/17 06:00 AST 5 U/L (15-37) L D 05/02/17 06:00 ALT 27 U/L (12-78) 05/02/17 06:00 Alkaline Phosphatase 56 U/L (45-117) 05/02/17 06:00 Albumin 2.7 g/dl (3.4-5.0) L 05/02/17 06:00 INR, PTT INR 1.24 (0.82-1.09) H 04/25/17 21:18 Assessment/Plan ASSESSMENT: 1. Acute exacerbation of advanced chronic obstructive pulmonary disease on home oxygen therapy, probable pneumonia, resolving 2. 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 Diastolic LV dysfunction with class 0-I NYHA classification LV failure, compensated/euvolemic 4. HTN 5. Hypercholesterolemia 6. Anemia PLAN: 1. Antibiotics as per the primary team 2. Steroids and bronchodilators as per the pulmonary team 3. Continue ASA with close monitoring of CBC/hemoglobin 4. Continue Lipitor 5. as outlined recommend the addition of ACEI or ARBS hemodynamics permitting and not contraindicated Ashley Bojorquez MD
[2017-05-05] MEDS: ATORVASTATIN CA 10 MG TABLET (FP) PO SCH (21:19)
[2017-05-06] MEDS ORDERED: PT OWN MED DRAWER 7, Y5N ONE ×3 (01:07→08:55)
[2017-05-06] MEDS: PIPERACILLIN/TAZOB 3.375 GM 3.375 GM in DEXTROSE 5%-WATER - 50 ML IVPB SCH ×2 (01:13→09:10)
[2017-05-06] MEDS: HEPARIN NA (PORCINE) 5,000 UNITS/ML 1ML VIAL SQ SCH ×2 (05:11→12:59)
[2017-05-06] MEDS: INSULIN SLIDING SCALE (NOVOLOG) 1 VIAL SQ SCH ×2 (06:10→11:07)
[2017-05-06] MEDS: VANCOMYCIN 1,000 MG in DEXTROSE 5%-WATER - 250 ML IVPB SCH (06:41)
--- NOTE | 2017-05-06 08:40 | DS ---
Physical Examination Vital Signs: Vital Signs Temperature 97.8 F 05/06/17 06:00 Pulse Rate 67 05/06/17 06:00 Respiratory Rate 18 05/06/17 06:00 Blood Pressure 100/42 05/06/17 06:00 O2 Sat by Pulse Oximetry (%) 98 05/05/17 21:00 Cardiovascular: Yes: Regular Rate and Rhythm Respiratory: Yes: Regular, CTA Bilaterally, On Nasal O2 Gastrointestinal: Yes: Normal Bowel Sounds, Soft Discharge Summary Reason For Visit: FEVER Current Active Problems Diastolic dysfunction (Acute) Fever (Acute) MRSA (methicillin resistant Staphylococcus aureus) colonization (Acute) Hospital Course: 66 year old male with past medical history of hypertension, hyperlipidemia CHF, COPD (on 2L O2 at home), pulmonary hypertension, GERD, and recurrent nosebleeds who presents to the ED with complaints of fever that began yesterday. As per , the patient noticed the fever yesterday and went to his PCP. He was subsequently placed on Augmentin. They report that the fever has gotten higher, despite treating with Tylenol at home, Tmax 102.6 in the ED. He additionally complains of a chronic right sided chest pain that occurs only upon deep inspiration. He reports that the pain also radiates to his scapula. He denies any nausea, vomiting, diarrhea, or urinary symptoms. - Past Medical History Cardiovascular: Yes: CHF, Hyperlipdemia, Pulmonary Hypertension Pulmonary: Yes: COPD (home oxygen), Previously Intubated (intubated one time several years ago for respiratory failure) Gastrointestinal: Yes: GERD, Hiatal Hernia. No: GI Bleed, Hemorrhoids, Peptic Ulcer Disease, Ulcerative Colitis Renal/: Yes: Renal Calculi, UTI - Past Surgical History Past Surgical History: Yes: Appendectomy - Smoking History Smoking history: Former smoker - Problems (1) Pneumonia Assessment/Plan: RUL pneumonia MRSA in sputum iv abx to po bactrim cxr to follow up resolution of pna- slight improvement noted in right apical area pulm and ID on board wbc count is trending down Code(s): J18.9 - PNEUMONIA, UNSPECIFIED ORGANISM Qualifiers: Pneumonia type: aspiration pneumonia Laterality: right Lung location: upper lobe of lung (2) Acute and chronic respiratory failure Assessment/Plan: oxygen bronchodilators prednsione iv to po- tapering spiriva Code(s): J96.20 - ACUTE AND CHR RESP FAILURE, UNSP W HYPOXIA OR HYPERCAPNIA Qualifiers: Respiratory failure complication: hypoxia and hypercapnia Qualified Code(s) : J96.21 - Acute and chronic respiratory failure with hypoxia; J96.22 - Acute and chronic respiratory failure with hypercapnia; J96.22 - Acute and chronic respiratory failure with hypercapnia; J96.22 - Acute and chronic respiratory failure with hypercapnia (3) BPH (benign prostatic hypertrophy) Assessment/Plan: flomax Code(s): N40.0 - BENIGN PROSTATIC HYPERPLASIA WITHOUT LOWER URINRY TRACT SYMP (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 Condition: Improved - Instructions Disposition: HOME - Home Medications Comprehensive Discharge Medication List: Ambulatory Orders Albuterol Sulfate Inhaler - [Ventolin HFA Inhaler -] 2 inh PO Q4H 02/08/14 Arformoterol Tartrate [Brovana] 15 mcg IH BID 02/08/14 Aspirin [ASA -] 81 mg PO DAILY 02/08/14 Tamsulosin HCl [Flomax -] 0.4 mg PO DAILY 02/08/14 Tiotropium [place] [Spiriva] 1 inh PO DAILY 02/08/14 Beclomethasone Dipropionate [Qvar] 8.7 gm IH DAILY 01/09/16 Alprazolam [Xanax] 0.25 mg PO BID #20 tablet MDD 2 01/18/16 Atorvastatin Ca [Lipitor] 10 mg PO DAILY 08/30/16 Polyethylene Glycol 3350 [Miralax 119 gm Btl -] 17 gm PO DAILY PRN #1 bottle 10/15 Ferrous Sulfate [Feosol] 325 mg PO BID ud 05/06/17 Furosemide [Lasix -] 20 mg PO DAILY tablet 05/06/17 Prednisone [Deltasone -] 20 mg PO DAILY tablet 05/06/17
[2017-05-06 08:45] LABS: MCH 27.9 pg (25.7-33.7); MCHC 31.9 g/dl (32.0-35.9); MEAN CELL VOLUME 87.5 fl (80-96); MEAN PLT VOLUME 8.4 fl (7.5-11.1); PLATELET COUNT 204 K/MM3 (134-434); RDW 14.5 % (11.9-15.9); WHITE BLOOD COUNT 10.8 K/mm3 (4.0-10.0)
[2017-05-06] MEDS: ASPIRIN 81 MG CHEWABLE TABLETS PO SCH (09:09)
[2017-05-06] MEDS: TAMSULOSIN HCL 0.4 MG CAP.ER.24H (FP) PO SCH (09:09)
[2017-05-06] MEDS: QVAR 80 MCG IH SCH (09:10)
[2017-05-06] MEDS: POLYETHYLENE GLYCOL 3350 119 GM BTL PO SCH (09:10)
[2017-05-06] MEDS: TIOTROPIUM BROMIDE 18 MCG/INH (DEVICE W/ 5 CAPSULES) IH SCH (09:10)
[2017-05-06] MEDS: FERROUS SO4 325 MG TABLET (FP) PO SCH (09:10)
[2017-05-06] MEDS: predniSONE 20 MG TABLET (UD) PO SCH (09:10)
[2017-05-06] MEDS: FUROSEMIDE 20 MG TABLET (FP) PO SCH (09:10)
[2017-05-06] MEDS: ALPRAZolam 0.25 MG TABLET PO SCH (09:11)
[2017-05-06 09:28] LABS: ANION GAP 6 (8-16); CALCIUM 8.2 mg/dL (8.5-10.1); CO2 33 mmol/L (21-32); CREATININE 0.8 mg/dL (0.7-1.3); GLUCOSE,RANDOM 127 mg/dL (74-106); SGOT/AST 10 U/L (15-37); SGPT/ALT 24 U/L (12-78)
[2017-05-06 09:31] LABS: ALK PHOS 59 U/L (45-117); BILIRUBIN,TOTAL 0.4 mg/dL (0.2-1.0)
[2017-05-06] MEDS: ARFORMOTEROL TARTRATE 15 MCG/2 ML VIAL NEB SCH (10:30)
[2017-05-06 10:35] VITALS: TEMP 97.7
--- NOTE | 2017-05-06 10:40 | PN ---
Progress Note, Physician History of Present Illness: Dyspnea on exertion, fever and right pleurisy resolved, no further epistaxis. - Current Medication List Current Medications: Active Medications Acetaminophen (Tylenol -) 650 mg PO Q4H PRN PRN Reason: FEVER OR PAIN Last Admin: 05/05/17 06:49 Dose: 650 mg Alprazolam (Xanax -) 0.25 mg PO BID [facility] Last Admin: 05/06/17 09:11 Dose: Not Given Arformoterol Tartrate (Brovana (Restricted To Pulmonology/Resp) -) 1 amp NEB BID [facility] Last Admin: 05/05/17 21:40 Dose: 1 amp Aspirin (Asa -) 81 mg PO DAILY [facility] Last Admin: 05/06/17 09:09 Dose: 81 mg Atorvastatin Calcium (Lipitor -) 10 mg PO HS [facility] Last Admin: 05/05/17 21:19 Dose: Not Given Ferrous Sulfate (Feosol -) 325 mg PO BID [facility] Last Admin: 05/06/17 09:10 Dose: 325 mg Furosemide (Lasix -) 20 mg PO DAILY [facility] Last Admin: 05/06/17 09:10 Dose: 20 mg Heparin Sodium (Porcine) (Heparin -) 5,000 unit SQ TID [facility] Last Admin: 05/06/17 05:11 Dose: Not Given Vancomycin HCl 1,000 mg/ (Dextrose) 250 mls @ 250 mls/hr IVPB BID@0700,1900 TA PRN Reason: Protocol Last Admin: 05/06/17 06:41 Dose: 250 mls/hr Piperacillin Sod/Tazobactam (Sod 3.375 gm/ Dextrose) 50 mls @ 100 mls/hr IVPB Q8H-IV TA PRN Reason: Protocol Last Admin: 05/06/17 09:10 Dose: 100 mls/hr Insulin Aspart (Novolog Vial Sliding Scale -) 1 vial SQ ACHS TA PRN Reason: Protocol Last Admin: 05/06/17 06:10 Dose: Not Given Qvar (Beclomethasone ) 80mcg Inhaler_Non- Formulary Med 1 each IH BID [facility] Last Admin: 05/06/17 09:10 Dose: 1 each Polyethylene Glycol (Miralax (For Daily Use) -) 17 gm PO DAILY [facility] Last Admin: 05/06/17 09:10 Dose: Not Given Prednisone (Deltasone -) 20 mg PO DAILY [facility] Last Admin: 05/06/17 09:10 Dose: 20 mg Tamsulosin HCl (Flomax -) 0.4 mg PO DAILY@0830 [facility] Last Admin: 05/06/17 09:09 Dose: 0.4 mg Tiotropium [place] (Spiriva -) 1 puff IH DAILY [facility] Last Admin: 05/06/17 09:10 Dose: 1 puff - Objective Vital Signs: Vital Signs Temperature 97.7 F 05/06/17 10:00 Pulse Rate 71 05/06/17 10:00 Respiratory Rate 18 05/06/17 10:00 Blood Pressure 109/55 05/06/17 10:00 O2 Sat by Pulse Oximetry (%) 99 05/06/17 09:00 Constitutional: Yes: No Distress, Calm Neck: Yes: Supple Cardiovascular: Yes: Regular Rate and Rhythm Respiratory: Yes: Regular, Diminished, On Nasal O2 Gastrointestinal: Yes: Normal Bowel Sounds, Soft Edema: No Labs: CBC, BMP 05/06/17 08:10 05/06/17 08:10 INR, PTT INR 1.24 (0.82-1.09) H 04/25/17 21:18 - ....Imaging EKG: Report Reviewed (Tele: SR) Problem List - Problems (1) Anemia Code(s): D64.9 - ANEMIA, UNSPECIFIED Qualifiers: Anemia type: unspecified type Qualified Code(s): D64.9 - Anemia, unspecified (2) Arteriosclerotic heart disease (ASHD) Code(s): I25.10 - ATHSCL HEART DISEASE OF [place] CORONARY ARTERY W/O ANG PCTRS (3) COPD exacerbation Code(s): J44.1 - CHRONIC OBSTRUCTIVE PULMONARY DISEASE W (ACUTE) EXACERBATION (4) Hyperlipidemia Code(s): E78.5 - HYPERLIPIDEMIA, UNSPECIFIED Qualifiers: Hyperlipidemia type: pure hypercholesterolemia Qualified Code(s): E78.00 - Pure hypercholesterolemia, unspecified; E78.0 - Pure hypercholesterolemia (5) Pneumonia Code(s): J18.9 - PNEUMONIA, UNSPECIFIED ORGANISM Qualifiers: Pneumonia type: aspiration pneumonia Laterality: right Lung location: upper lobe of lung (6) Acute and chronic respiratory failure Code(s): J96.20 - ACUTE AND CHR RESP FAILURE, UNSP W HYPOXIA OR HYPERCAPNIA Qualifiers: Respiratory failure complication: hypoxia and hypercapnia Qualified Code(s) : J96.21 - Acute and chronic respiratory failure with hypoxia; J96.22 - Acute and chronic respiratory failure with hypercapnia; J96.22 - Acute and chronic respiratory failure with hypercapnia; J96.22 - Acute and chronic respiratory failure with hypercapnia (7) Diastolic dysfunction Code(s): I51.9 - HEART DISEASE, UNSPECIFIED Assessment/Plan 1. Acute exacerbation of advanced chronic obstructive pulmonary disease on home oxygen therapy, probable pneumonia, resolving 2. 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 Diastolic LV dysfunction with class 0-I NYHA classification LV failure, compensated/euvolemic 4. HTN 5. Hypercholesterolemia 6. Anemia PLAN: 1. Complete antibiotics course as per ID 2. Oral steroids, bronchodilators, O2 as per the pulmonary team 3. Continue ASA 81 qd with close monitoring of CBC/hemoglobin 4. Continue Lipitor 10 qhs and Lasix 20 qd 5. Addition of ACEI or ARBS hemodynamics permitting and not contraindicated
[2017-05-06 11:29] LABS: METAMYELOCYTE 1 % (0-2); REACTIVE LYMPHOCYTES 1 % (0-80); TOTAL CELLS COUNTED 100
[2017-05-06 14:02] VITALS: BP 108/50; PULSE 74
[2017-05-07 14:16] LABS: A/G RATIO 1.2 (0.7-1.7); ALBUMIN 2.7 g/dL (2.9-4.4); ALPHA-1-GLOBULIN 0.3 g/dL (0.0-0.4); BETA GLOBULIN 0.9 g/dL (0.7-1.3); GAMMA GLOBULIN 0.5 g/dL (0.4-1.8); GLOBULIN, TOTAL 2.4 g/dL (2.2-3.9); M-SPIKE Not Observed g/dL (Not Observed); TOTAL PROTEIN 5.1 g/dL (6.0-8.5)
== END 2017-05-06 15:13 | disposition home or self-care (01) | DRG 190 ==
LOC: JER 19:42 → JERBED 04-26 01:20 → J4S 04-26 14:05
PROVIDERS: ADMIT Family Medicine; ATTEND Family Medicine
DX: J44.0 Chronic obstructive pulmonary disease with (acute) lower respiratory infection (principal); J96.20 Acute and chronic respiratory failure, unspecified whether with hypoxia or hypercapnia; J18.9 Pneumonia, unspecified organism; I50.32 Chronic diastolic (congestive) heart failure; E78.5 Hyperlipidemia, unspecified; J44.1 Chronic obstructive pulmonary disease with (acute) exacerbation; Z99.81 Dependence on supplemental oxygen; I27.20 Pulmonary hypertension, unspecified; K21.9 Gastro-esophageal reflux disease without esophagitis; I11.0 Hypertensive heart disease with heart failure; Z87.891 Personal history of nicotine dependence; I45.10 Unspecified right bundle-branch block; I25.10 Atherosclerotic heart disease of native coronary artery without angina pectoris; J98.4 Other disorders of lung; D64.9 Anemia, unspecified; Z87.440 Personal history of urinary (tract) infections; N40.0 Benign prostatic hyperplasia without lower urinary tract symptoms; F06.4 Anxiety disorder due to known physiological condition
CPT/HCPCS: 36415; 71010-TC; 71275-TC; 80048; 80053; 81003; 81015; 82550; 82728; 82784; 82803; 83540; 83550; 83605; 83615; 83735; 83880; 84100; 84155; 84165; 84443; 84484; 85025; 85027; 85044; 85610; 85730; 86334; 86850; 86900; 86901; 87040; 87070; 87086; 87186; 87205; 87899; 93005; 93010; 94640; 97116-GP; 97161-GP; 99285-25; G0480; J1644; J1756

== ENCOUNTER 2018-02-13 00:42 | Inpatient (IN) | payer BC ==
--- NOTE | 2018-02-13 01:00 | PDOC ---
Attending Attestation - HPI HPI: 02/13/18 02:11 The patient is a 67-year-old male with past medical history significant for CHF , HLD, Pulmonary HTN, COPD (2L of home O2), previously intubated for respiratory failure, GERD, Hiatal Hernia, UTI presents to the emergency department with COPD exacerbation. The patient presents with difficulty breathing accompanied with tachycardia and decreased PO intake secondary to SOB. The patient reports the symptoms presented 2 days ago, thats been gradually worsening. The patient reports calling Dr. Mckee, who prescribed the patient a Z pack treatment. The patient reports since yesterday patient had a total of 3 pills, without relief. The patient reports similar exacerbations in the past, with relief noted following prednisone. Denies fever, chills, chest pain. Allergies: moxifloxacin HCl, aclidinium bromide, shellfish derived Social history: Former smoker. No alcohol or recreational drug use reported. Surgical history: None reported PCP: Mony Leslie Rivet Sticker: Luiz Sharp Sap Project Manager: Peter Mckee ID: Keith Vanegas - Physicial Exam PE: 02/13/18 01:28 GENERAL: The patient is awake, alert, and fully oriented, Nontoxic - in no acute distress. HEAD: Normocephalic, atraumatic. EYES: extraocular movements intact, sclera anicteric, conjunctiva clear. ENT: Normal voice, Moist mucous membranes. NECK: Normal range of motion, supple LUNGS: (+) decreased breath sounds bilaterally. No rales or crackles. HEART: Tackycardiac without murmur, rub or gallop. ABDOMEN: No flank pain. Soft, nontender, No guarding, no rebound.No CVA tenderness EXTREMITIES: No pitting edema. Normal range of motion, no edema. No cyanosis. No erythema, or tenderness. NEUROLOGICAL: Intact. No facial assymetry, Normal speech, PSYCH: Normal mood, normal affect. SKIN: Warm to touch, Dry, normal turgor. - Medical Decision Making 02/13/18 01:28 Documentation prepared by Cecy Gupta, acting as medical officer for Betsy White MD. <Cecy Gupta - Last Filed: 02/13/18 02:11> - Resident Resident Name: Candida Parnell - ED Attending Attestation I have performed the following: I have examined & evaluated the patient, The case was reviewed & discussed with the resident, I agree w/resident's findings & plan - Medical Decision Making 02/13/18 02:29 Pt was placed on BiPAP, as he is anxious and looks to be having difficulty breathing. 02/13/18 05:23 Pt is improved. He is awaiting a bed for admission for COPD exacerbation. Vastly improved on BiPAP. Pt took oral zithromax, so he will be placed on IV rocephin. <Betsy White - Last Filed: 02/13/18 05:26>
[2018-02-13] MEDS ORDERED: methylPREDNISolone NA SUCC 125 MG/2 ML VIAL IVPUSH ONE (01:10)
[2018-02-13] MEDS ORDERED: SODIUM CHLORIDE 0.9% 500 ML INFUS.BAG IV ONE (01:11)
[2018-02-13] MEDS ORDERED: ACETAMINOPHEN 1000 MG/100 ML VIAL (NON FORMULARY) IVPB ONE (01:11)
[2018-02-13] MEDS ORDERED: ALBUTEROL SO4 2.5/IPRATROPIUM 0.5 INH SOL 3 ML VIAL.NEB. NEB ONE ×2 (01:14→01:23)
[2018-02-13] MEDS ORDERED: ALBUTEROL SO4 0.083% IH SOL 2.5 MG/3 ML VIAL.NEB. NEB ONE ×2 (01:15→01:22)
[2018-02-13] MEDS ORDERED: ACETAMINOPHEN INJECTION 100 ML IVPB ONE (01:23)
[2018-02-13] MEDS ORDERED: methylPREDNISolone NA SUCC 125 MG/2 ML VIAL ONE (01:23)
--- NOTE | 2018-02-13 01:47 | PDOC ---
History of Present Illness - General Chief Complaint: Shortness of Breath Stated Complaint: DIFFICULTY BREATHING Time Seen by Provider: 02/13/18 00:54 - History of Present Illness Initial Comments: 02/13/18 01:48 The patient is a 67 year old male with a significant past medical history of anxiety, low back pain, hypertension, hyperlipidemia, CHF, COPD (on 2-3L O2 at home), pulmonary hypertension and GERD who presents with 2 days of worsening shortness of breath and feeling unwell. The patient reports that he called his pulmonogist Dr. Pastor who sent him a z-zenon which he has taken for the past two days without relief. Prior to arrival the patient used home albuterol but did not have relief of symptoms. The patient has been intubated once in the past and required an ICU stay in 2008 for respiratory failure. Past History - Past Medical History Allergies/Adverse Reactions: Allergies Allergy/AdvReac Type Severity Reaction Status Date / Time moxifloxacin HCl Allergy Severe Verified 02/13/18 00:56 [From Avelox] aclidinium bromide Allergy Verified 02/13/18 00:56 [From Tudorza Pressair] shellfish derived Allergy Verified 02/13/18 00:56 Home Medications: Ambulatory Orders Albuterol Sulfate Inhaler - [Ventolin HFA Inhaler -] 2 inh PO Q4H 02/08/14 Arformoterol Tartrate [Brovana] 15 mcg IH BID 02/08/14 Aspirin [ASA -] 81 mg PO DAILY 02/08/14 Tamsulosin HCl [Flomax -] 0.4 mg PO DAILY 02/08/14 Tiotropium [place] [Spiriva] 1 inh PO DAILY 02/08/14 Beclomethasone Dipropionate [Qvar] 8.7 gm IH DAILY 01/09/16 Alprazolam [Xanax] 0.25 mg PO BID #20 tablet MDD 2 01/18/16 Atorvastatin Ca [Lipitor] 10 mg PO DAILY 08/30/16 Polyethylene Glycol 3350 [Miralax 119 gm Btl -] 17 gm PO DAILY PRN #1 bottle 10/15 Ferrous Sulfate [Feosol] 325 mg PO BID ud 05/06/17 Furosemide [Lasix -] 20 mg PO DAILY tablet 05/06/17 Sulfamethoxazole/Trimethoprim [Bactrim Ds -] 1 tab PO BID #14 tablet 05/06/17 predniSONE [Deltasone -] 4 mg PO DAILY 01/18/18 Anemia: Yes (FROM BLEEDING) Asthma: No Cancer: No Cardiac Disorders: Yes (SC, CHF) CVA: No COPD: Yes (o2 at home) CHF: Yes Dementia: No Diabetes: No GI Disorders: Yes (umbilical hernia x 2) Disorders: Yes (UTI) HTN: Yes (FLUCTUATE) Hypercholesterolemia: Yes Kidney Stones: Yes Seizures: No Thyroid Disease: No - Surgical History Abdominal Surgery: No Appendectomy: No Cardiac Surgery: No Cholecystectomy: No Lung Surgery: No Neurologic Surgery: No Orthopedic Surgery: No - Suicide/Smoking/Psychosocial Hx Smoking Status: No Smoking History: Former smoker Have you smoked in the past 12 months: No Number of Cigarettes Smoked Daily: 40 If you are a former smoker, when did you quit?: many years ago Information on smoking cessation initiated: No Hx Alcohol Use: No Drug/Substance Use Hx: No Substance Use Type: None Hx Substance Use Treatment: No *Physical Exam - Vital Signs Last Vital Signs Temp Pulse Resp BP Pulse Ox 97.9 F 117 H 27 H 144/68 100 02/13/18 00:57 02/13/18 01:17 02/13/18 01:17 02/13/18 01:17 02/13/18 01:17 - Physical Exam Comments: 02/13/18 01:50 decreased breath sounds throughout increased respiratory effort abdominal muscle use 02/13/18 02:05 ED Treatment Course - LABORATORY CBC & Chemistry Diagram: 02/13/18 01:50 02/13/18 01:50 - RADIOLOGY Radiology Studies Ordered: Category Date Time Status CXRPORT [CHEST X-RAY PORTABLE*] [RAD] Stat Radiology 02/13/18 01:13 Ordered Medical Decision Making - Medical Decision Making The patient is a 67 year old male with a significant past medical history of anxiety, low back pain, hypertension, hyperlipidemia, CHF, COPD (on 2-3L O2 at home), pulmonary hypertension and GERD who presents with 2 days of worsening shortness of breath and feeling unwell. The patient reports that he called his pulmonogist Dr. Pastor who sent him a z-zenon which he has taken for the past two days without relief. Prior to arrival the patient used home albuterol but did not have relief of symptoms. The patient has been intubated once in the past and required an ICU stay in 2008 for respiratory failure. DDX including but not limited to: COPD exacerbation vs CHF exacerbation W/U: - cbc, cmp, blood culture, VBG - CXR TX: - solumedrol - duoneb - ofrimev ED Course: 02/13/18 01:50 Patient anxious appearing. Receiving duoneb treatment. 02/13/18 02:23 Patient on Bipap: IPAP: 14, EPAP 6, 40% O2, RR14 = 100% 02/13/18 03:15 Patient admitted to *DC/Admit/Observation/Transfer Diagnosis at time of Disposition: COPD exacerbation - Discharge Dispostion Condition at time of disposition: Stable Decision to Admit order: Yes - Referrals Referrals: Mony Leslie MD [Primary Care Provider] - - Patient Instructions - Post Discharge Activity
[2018-02-13] MEDS ORDERED: ONDANSETRON 4 MG/2 ML VIAL IVPUSH ONE (02:03)
[2018-02-13 02:04] LABS: BASO % 0.3 % (0-2.0); HEMATOCRIT 40.6 % (35.4-49); HEMOGLOBIN 13.5 GM/dL (11.7-16.9); LYMPH % 7.9 % (8-40); MCH 29.6 pg (25.7-33.7); MCHC 33.2 g/dl (32.0-35.9); MEAN CELL VOLUME 89.2 fl (80-96); MEAN PLT VOLUME 8.8 fl (7.5-11.1); MONO % 7.9 % (3.8-10.2); NEUT % 82.9 % (42.8-82.8); PLATELET COUNT 146 K/MM3 (134-434); RBC 4.55 M/mm3 (4.00-5.60); RDW 14.1 % (11.9-15.9); WHITE BLOOD COUNT 9.7 K/mm3 (4.0-10.0)
[2018-02-13] MEDS ORDERED: ONDANSETRON 4 MG/2 ML VIAL ONE (02:08)
[2018-02-13 02:30] LABS: ALBUMIN 3.9 g/dl (3.4-5.0); ANION GAP 4 MMOL/L (8-16); BILIRUBIN,TOTAL 0.3 mg/dL (0.2-1.0); BLOOD UREA NITROGEN 23 mg/dL (7-18); CALCIUM 8.7 mg/dL (8.5-10.1); CHLORIDE 95 mmol/L (98-107); CO2 40 mmol/L (21-32); CREATININE 0.8 mg/dL (0.55-1.3); GLUCOSE,RANDOM 99 mg/dL (74-106); SGOT/AST 19 U/L (15-37); SGPT/ALT 20 U/L (13-61); SODIUM 139 mmol/L (136-145); TOT PROT 7.6 g/dl (6.4-8.2)
[2018-02-13 02:32] LABS: ALK PHOS 99 U/L (45-117); N-TERMINAL BNP 42.72 pg/ml (5-125)
[2018-02-13 02:33] LABS: VENOUS PC02 88.5 mmHg (38-52); VENOUS PH 7.25 (7.32-7.42); VENOUS PO2 65.9 mmHg (28-48)
[2018-02-13 03:52] LABS: ARTERIAL BLD GAS O2 SATURATION 98.4 % (90-98.9); ARTERIAL BLOOD GAS BASE EXCESS 7.6 meq/l (-2-2); ARTERIAL BLOOD GAS pH 7.32 (7.35-7.45)
[2018-02-13 03:56] LABS: ARTERIAL BLOOD GAS PCO2 70.3 mmHg (35-45)
[2018-02-13] MEDS ORDERED: ALBUTEROL SO4 0.083% IH SOL 2.5 MG/3 ML VIAL.NEB. NEB PRN (04:02)
[2018-02-13] MEDS ORDERED: POLYETHYLENE GLYCOL 3350 119 GM BTL PO PRN (04:08)
--- NOTE | 2018-02-13 04:10 | HP ---
CHIEF COMPLAINT: SOB PCP: Mariama, Pulmonary: Rafi, Cardio: Aron HISTORY OF PRESENT ILLNESS: This is a 67 year old male with a significant past medical history of COPD on home oxygen, interstitial lung disease and CHF who presented to the ED with a 2- 3 day history of SOB. He called his lymphedema therapist who started him on azithromycin po and increased his home prednisone from 6mg daily to 20mg daily 2 days ago without relief. Pt reports no relief from his albuterol MDI either. 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 [employer] Smoking: quit 10+ years ago, prior 2ppd x 35 years Alcohol: pt denies Drugs: pt denies Family History: mother age 67, colon CA father age 67, VA multiple siblings with COPD, lung disease Allergies moxifloxacin HCl [From Avelox] Allergy (Severe, Verified 02/13/18 00:56) " I DON'T FEEL RIGHT " aclidinium bromide [From Tudorza Pressair] Allergy (Verified 02/13/18 00:56) shellfish derived Allergy (Verified 02/13/18 00:56) HOME MEDICATIONS: 3 Medication Instructions Recorded Albuterol Sulfate Inhaler - 2 inh PO Q4H 02/08/14 [Ventolin HFA Inhaler -] Arformoterol Tartrate [Brovana] 15 mcg IH BID 02/08/14 Aspirin [ASA -] 81 mg PO DAILY 02/08/14 Tamsulosin HCl [Flomax -] 0.4 mg PO DAILY 02/08/14 Tiotropium [place] [Spiriva] 1 inh PO DAILY 02/08/14 Beclomethasone Dipropionate [Qvar] 8.7 gm IH DAILY 01/09/16 Alprazolam [Xanax] 0.25 mg PO BID #20 tablet MDD 2 08/19/16 Atorvastatin Ca [Lipitor] 10 mg PO DAILY 08/30/16 Polyethylene Glycol 3350 [Miralax 17 gm PO DAILY PRN #1 bottle 09/03/16 119 gm Btl -] Ferrous Sulfate [Feosol] 325 mg PO BID ud 05/06/17 Furosemide [Lasix -] 20 mg PO DAILY tablet 05/06/17 Sulfamethoxazole/Trimethoprim 1 tab PO BID #14 tablet 05/06/17 [Bactrim Ds -] predniSONE [Deltasone -] 4 mg PO DAILY 01/18/18 REVIEW OF SYSTEMS CONSTITUTIONAL: Absent: fever, chills, diaphoresis, generalized weakness, malaise, loss of appetite, weight change HEENT: Absent: rhinorrhea, nasal congestion, throat pain, throat swelling, difficulty swallowing, mouth swelling, ear pain, eye pain, visual changes CARDIOVASCULAR: Absent: chest pain, syncope, palpitations, irregular heart rate, lightheadedness , peripheral edema RESPIRATORY: Present: shortness of breath, dyspnea with exertion Absent: cough, orthopnea, wheezing, stridor, hemoptysis GASTROINTESTINAL: Absent: abdominal pain, abdominal distension, nausea, vomiting, diarrhea, constipation, melena, hematochezia GENITOURINARY: Absent: dysuria, frequency, urgency, hesitancy, hematuria, flank pain, genital pain MUSCULOSKELETAL: Absent: myalgia, arthralgia, joint swelling, back pain, neck pain SKIN: Absent: rash, itching, pallor HEMATOLOGIC/IMMUNOLOGIC: Absent: easy bleeding, easy bruising, lymphadenopathy, frequent infections ENDOCRINE: Absent: unexplained weight gain, unexplained weight loss, heat intolerance, cold intolerance NEUROLOGIC: Absent: headache, focal weakness or paresthesias, dizziness, unsteady gait, seizure, mental status changes, bladder or bowel incontinence PSYCHIATRIC: Absent: anxiety, depression, suicidal or homicidal ideation, hallucinations. PHYSICAL EXAMINATION Vital Signs - 24 hr 3 02/13/18 02/13/18 02/13/18 00:57 01:17 01:58 Temperature 97.9 F Pulse Rate 120 H 117 H Pulse Rate [ 117 H 117 H Left Radial] Respiratory 22 27 H 27 H Rate Blood Pressure 150/62 Blood Pressure 144/68 144/68 [Right Arm] O2 Sat by Pulse 99 100 100 Oximetry (%) GENERAL: Awake, alert, and fully oriented, in no acute distress. HEAD: Normal with no signs of trauma. EYES: Pupils equal, round and reactive to light, extraocular movements intact, sclera anicteric, conjunctiva clear. No lid lag. EARS, NOSE, THROAT: Ears normal, nares patent, oropharynx clear without exudates. Moist mucous membranes. NECK: Normal range of motion, supple without lymphadenopathy, JVD, or masses. LUNGS: Diminished. No wheezes, and no crackles. No accessory muscle use. HEART: Regular rate and rhythm, normal S1 and S2 without murmur, rub or gallop. ABDOMEN: Soft, nontender, not distended, normoactive bowel sounds, no guarding, no rebound, no masses. No hepatomegaly or splenomegaly. MUSCULOSKELETAL: Normal range of motion at all joints. No bony deformities or tenderness. No CVA tenderness. UPPER EXTREMITIES: 2+ pulses, warm, well-perfused. No cyanosis. No clubbing. No peripheral edema. LOWER EXTREMITIES: 2+ pulses, warm, well-perfused. No calf tenderness. No peripheral edema. NEUROLOGICAL: Cranial nerves II-XII intact. Normal speech. Normal gait. PSYCHIATRIC: Cooperative. Good eye contact. Appropriate mood and affect. SKIN: Warm, dry, normal turgor, no rashes or lesions noted, normal capillary refill. Laboratory Results - last 24 hr 3 02/13/18 02/13/18 02/13/18 01:50 01:50 01:50 WBC 9.7 RBC 4.55 Hgb 13.5 Hct 40.6 D MCV 89.2 MCH 29.6 MCHC 33.2 RDW 14.1 Plt Count 146 MPV 8.8 Absolute Neuts (auto) 8.0 Neutrophils % 82.9 H Lymphocytes % 7.9 L D Monocytes % 7.9 Eosinophils % 1.0 Basophils % 0.3 Nucleated RBC % 0 Puncture Site ABG pH ABG pCO2 at Pt Temp ABG pO2 at Pt Temp ABG HCO3 ABG O2 Sat (Measured) ABG O2 Content ABG Base Excess Pardeep Test VBG pH POC VBG pCO2 POC VBG pO2 Mixed VBG HCO3 O2 Delivery Device Oxygen Flow Rate Vent Mode Vent Rate Pressure Support Vent Sodium 139 Potassium 4.0 Chloride 95 L Carbon Dioxide 40 H Anion Gap 4 L BUN 23 H Creatinine 0.8 Creat Clearance w eGFR > 60 Random Glucose 99 Calcium 8.7 Total Bilirubin 0.3 AST 19 ALT 20 Alkaline Phosphatase 99 Creatine Kinase 48 Troponin I < 0.02 B-Natriuretic Peptide 42.72 Total Protein 7.6 Albumin 3.9 3 02/13/18 02/13/18 02:06 03:43 WBC RBC Hgb Hct MCV MCH MCHC RDW Plt Count MPV Absolute Neuts (auto) Neutrophils % Lymphocytes % Monocytes % Eosinophils % Basophils % Nucleated RBC % Puncture Site No Result Required. ABG pH 7.32 L ABG pCO2 at Pt Temp 70.3 H* D ABG pO2 at Pt Temp 116.0 H D ABG HCO3 35.5 H ABG O2 Sat (Measured) 98.4 ABG O2 Content 16.4 ABG Base Excess 7.6 H Pardeep Test No Result Required. VBG pH 7.25 L D POC VBG pCO2 88.5 H* D POC VBG pO2 65.9 H D Mixed VBG HCO3 37.3 H O2 Delivery Device Bipap Oxygen Flow Rate 40 Vent Mode S/t Vent Rate 14 Pressure Support Vent 14/6 Sodium Potassium Chloride Carbon Dioxide Anion Gap BUN Creatinine Creat Clearance w eGFR Random Glucose Calcium Total Bilirubin AST ALT Alkaline Phosphatase Creatine Kinase Troponin I B-Natriuretic Peptide Total Protein Albumin ECG Sinus tachycardia vent rate 117, QTC 463 RBBB, L posterior fascicular block ASSESSMENT/PLAN: 67yM with PMH COPD on home oxygen, Interstitial lung disease, pHTN, HTN, HLD, CHF, diastolic LV dysfunction, VA, CAD, GERD, hiatal hernia, anemia presented to the ED with SOB. Hypercapneic respiratory failure secondary to COPD exacerbation/ILD - repeat ABG above, will decrease FIO2 to 30% and repeat ABG in am - cont BIPAP - pulmonary consult - IV steroids, solumedrol 40mg Q6h - albuterol neb qid ramyon and q4h prn - cont home brovana, spiriva and qvar HTN/HLD/CHF/CAD - cont home meds: ASA, crestor, lasix Anxiety - cont home xanax Anemia - cont iron therapy DVT PPX - heparin 5000u TID FEN - hold further IVF, po fluids as tolerated - BMP tomorrow - low sodium diet as tolerated Dispo: pt currently requires further inpatient management of his emergent condition. Visit type - Emergency Visit Emergency Visit: Yes ED Registration Date: 02/13/18 Care time: The patient presented to the Emergency Department on the above date and was hospitalized for further evaluation of their emergent condition. - New Patient This patient is new to me today: Yes Date on this admission: 02/13/18 - Critical Care Critical Care patient: No Hospitalist Screening - Colonoscopy Questionnaire Colonoscopy Questionnaire: Colonoscopy Questionnaire - Patient: 50 - 75 years old and never had a screening colonoscopy: No History of colon or rectal polyps, or CA: No History of IBD, Crohn's disease or UC: No History of abdominal radiation therapy as a child: No - Relative: 1 with colon or rectal CA, or polyps at age 60 or younger: No Colon or rectal CA diagnosed at age 45 or younger: No Multiple relatives with colon or rectal CA: No - Outcome: Screening Result: Negative Screen
[2018-02-13] MEDS ORDERED: HEPARIN NA (PORCINE) 5,000 UNITS/ML 1ML VIAL ONE ×2 (06:13→16:58)
[2018-02-13] MEDS: HEPARIN NA (PORCINE) 5,000 UNITS/ML 1ML VIAL SQ SCH ×3 (06:15→21:31)
[2018-02-13 07:48] LABS: ARTERIAL BLD GAS O2 SATURATION 96.7 % (90-98.9); ARTERIAL BLOOD GAS BASE EXCESS 7.8 meq/l (-2-2); ARTERIAL BLOOD GAS PCO2 59.8 mmHg (35-45); ARTERIAL BLOOD GAS pH 7.38 (7.35-7.45)
[2018-02-13 07:52] LABS: ALLENS TEST POSITIVE
[2018-02-13] MEDS: ALBUTEROL SO4 0.083% IH SOL 2.5 MG/3 ML VIAL.NEB. NEB SCH ×4 (08:13→20:48)
[2018-02-13] MEDS: methylPREDNISolone NA SUCC 40 MG/1 ML VIAL IVPUSH SCH ×3 (09:14→21:31)
[2018-02-13] MEDS: TAMSULOSIN HCL 0.4 MG CAP.ER.24H (FP) PO SCH (09:14)
[2018-02-13] MEDS ORDERED: PATIENT'S OWN MEDICATION (NON-FORMULARY) (Beclomethasone Dipropionate [Qvar] 8.7 GM) IH SCH (10:00)
[2018-02-13] MEDS: ASPIRIN 81 MG CHEWABLE TABLETS PO SCH (10:15)
[2018-02-13] MEDS: ALPRAZolam 0.25 MG TABLET PO SCH ×2 (10:15→21:31)
[2018-02-13] MEDS: FERROUS SO4 325 MG TABLET (FP) PO SCH ×2 (10:15→21:31)
[2018-02-13] MEDS: FUROSEMIDE 20 MG TABLET (FP) PO SCH (10:21)
[2018-02-13] MEDS: TIOTROPIUM BROMIDE 2.5 MCG (SPIRIVA) RESPIMAT INHALER IH SCH (12:08)
[2018-02-13] MEDS ORDERED: PT OWN MED DRAWER 7, Y5N ONE (12:13)
[2018-02-13] MEDS ORDERED: FUROSEMIDE 40 MG TABLET (FP) ONE (12:18)
[2018-02-13] MEDS ORDERED: ALPRAZolam 0.25 MG TABLET ONE (12:18)
[2018-02-13] MEDS: ARFORMOTEROL TARTRATE 15 MCG/2 ML VIAL NEB SCH ×2 (13:00→20:48)
--- NOTE | 2018-02-13 16:20 | PN ---
Progress Note, Physician Chief Complaint: EVENTS AND NOTES REVIEWED ON SUPPORT EATING - Current Medication List Current Medications: Active Medications Albuterol Sulfate (Ventolin 0.083% Nebulizer Soln -) 1 amp NEB Q4H PRN PRN Reason: SHORT OF BREATH/WHEEZING Albuterol Sulfate (Ventolin 0.083% Nebulizer Soln -) 1 amp NEB RQID [facility] Last Admin: 02/13/18 12:14 Dose: 1 amp Alprazolam (Xanax -) 0.25 mg PO BID [facility] Last Admin: 02/13/18 10:15 Dose: 0.25 mg Arformoterol Tartrate (Brovana (Restricted To Pulmonology/Resp) -) 1 amp NEB RBID [facility] Last Admin: 02/13/18 13:00 Dose: 1 amp Aspirin (Asa -) 81 mg PO DAILY [facility] Last Admin: 02/13/18 10:15 Dose: 81 mg Ferrous Sulfate (Feosol -) 325 mg PO BID [facility] Last Admin: 02/13/18 10:15 Dose: 325 mg Furosemide (Lasix -) 20 mg PO Q2D@1000 [facility] Last Admin: 02/13/18 10:21 Dose: 20 mg Heparin Sodium (Porcine) (Heparin -) 5,000 unit SQ TID [facility] Last Admin: 02/13/18 06:15 Dose: 5,000 unit Methylprednisolone Sodium Succinate (Solu-Medrol -) 40 mg IVPUSH Q6H-IV [facility] Last Admin: 02/13/18 09:14 Dose: 40 mg Non-Formulary Medication (Beclomethasone Dipropionate [Qvar]) 8.7 gm IH DAILY [facility] Polyethylene Glycol (Miralax (For Daily Use) -) 17 gm PO DAILY PRN PRN Reason: CONSTIPATION Rosuvastatin Calcium (Crestor -) 20 mg PO HS [facility] Tamsulosin HCl (Flomax -) 0.4 mg PO DAILY@0830 [facility] Last Admin: 02/13/18 09:14 Dose: 0.4 mg Tiotropium [place] (Spiriva Respimat) 2 puff IH DAILY [facility] - Objective Vital Signs: Vital Signs Temperature 98.0 F 02/13/18 16:04 Pulse Rate 119 H 02/13/18 16:04 Respiratory Rate 20 02/13/18 16:04 Blood Pressure 168/100 02/13/18 16:04 O2 Sat by Pulse Oximetry (%) 97 02/13/18 16:04 Constitutional: Yes: Mild Distress Eyes: Yes: WNL HENT: Yes: WNL Neck: Yes: WNL Cardiovascular: Yes: WNL Respiratory: Yes: Diminished, On Nasal O2 Gastrointestinal: Yes: WNL Genitourinary: Yes: WNL Musculoskeletal: Yes: Muscle Weakness Extremities: Yes: WNL Edema: No Peripheral Pulses WNL: Yes Integumentary: Yes: WNL Wound/Incision: Yes: Clean/Dry Neurological: Yes: WNL ...Motor Strength: WNL Psychiatric: Yes: WNL Labs: CBC, BMP 02/13/18 01:50 02/13/18 01:50 Problem List - Problems (1) COPD exacerbation Code(s): J44.1 - CHRONIC OBSTRUCTIVE PULMONARY DISEASE W (ACUTE) EXACERBATION (2) Acute and chronic respiratory failure Code(s): J96.20 - ACUTE AND CHR RESP FAILURE, UNSP W HYPOXIA OR HYPERCAPNIA Qualifiers: Respiratory failure complication: hypoxia and hypercapnia Qualified Code(s) : J96.21 - Acute and chronic respiratory failure with hypoxia; J96.22 - Acute and chronic respiratory failure with hypercapnia; J96.22 - Acute and chronic respiratory failure with hypercapnia; J96.22 - Acute and chronic respiratory failure with hypercapnia (3) Anemia Code(s): D64.9 - ANEMIA, UNSPECIFIED Qualifiers: Anemia type: unspecified type Qualified Code(s): D64.9 - Anemia, unspecified Assessment/Plan RESP SUPPORT NEBS PULM AND ID EVAL OOB TO CHAIR DVT PROPHYLAXIS
[2018-02-13] MEDS ORDERED: methylPREDNISolone NA SUCC 40 MG/1 ML VIAL ONE (16:58)
[2018-02-13] MEDS ORDERED: ALPRAZolam 0.25 MG TABLET PO ONE (17:45)
[2018-02-13] MEDS: ROSUVASTATIN CA 20 MG TABLET (FP) PO SCH (21:31)
[2018-02-14] MEDS: methylPREDNISolone NA SUCC 40 MG/1 ML VIAL IVPUSH SCH ×4 (02:06→21:17)
[2018-02-14] MEDS: HEPARIN NA (PORCINE) 5,000 UNITS/ML 1ML VIAL SQ SCH ×3 (06:27→21:18)
[2018-02-14 07:31] LABS: BASO % 0.1 % (0-2.0); HEMATOCRIT 36.9 % (35.4-49); HEMOGLOBIN 12.1 GM/dL (11.7-16.9); LYMPH % 2.4 % (8-40); MCH 29.3 pg (25.7-33.7); MCHC 32.8 g/dl (32.0-35.9); MEAN CELL VOLUME 89.2 fl (80-96); MONO % 3.5 % (3.8-10.2); PLATELET COUNT 139 K/MM3 (134-434); RBC 4.14 M/mm3 (4.00-5.60); RDW 14.4 % (11.9-15.9); WHITE BLOOD COUNT 9.6 K/mm3 (4.0-10.0)
[2018-02-14 07:56] LABS: ANION GAP 8 MMOL/L (8-16); BLOOD UREA NITROGEN 18 mg/dL (7-18); CHLORIDE 99 mmol/L (98-107); CO2 33 mmol/L (21-32); CREATININE 0.7 mg/dL (0.55-1.3); GLUCOSE,RANDOM 122 mg/dL (74-106); MAGNESIUM 2.1 mg/dL (1.8-2.4); PHOSPHOROUS 2.8 mg/dL (2.5-4.9); POTASSIUM 4.3 mmol/L (3.5-5.1); SODIUM 140 mmol/L (136-145)
[2018-02-14] MEDS: ALBUTEROL SO4 0.083% IH SOL 2.5 MG/3 ML VIAL.NEB. NEB SCH ×2 (07:59→11:21)
[2018-02-14] MEDS: ARFORMOTEROL TARTRATE 15 MCG/2 ML VIAL NEB SCH ×2 (07:59→20:12)
[2018-02-14] MEDS ORDERED: AMOX TR/POT CLAV 875MG/125MG TABLETS (FP) PO SCH (08:00)
[2018-02-14] MEDS ORDERED: PT OWN MED DRAWER 7, Y5N ONE (09:12)
[2018-02-14] MEDS: TIOTROPIUM BROMIDE 2.5 MCG (SPIRIVA) RESPIMAT INHALER IH SCH (09:16)
[2018-02-14] MEDS: FERROUS SO4 325 MG TABLET (FP) PO SCH ×2 (09:16→21:17)
[2018-02-14] MEDS: ASPIRIN 81 MG CHEWABLE TABLETS PO SCH (09:16)
[2018-02-14] MEDS: ALPRAZolam 0.25 MG TABLET PO SCH (09:16)
[2018-02-14] MEDS: TAMSULOSIN HCL 0.4 MG CAP.ER.24H (FP) PO SCH (09:16)
--- NOTE | 2018-02-14 10:27 | PN ---
Progress Note, Physician Chief Complaint: AWAKE ALERT FEELING BETTER - Current Medication List Current Medications: Active Medications Albuterol Sulfate (Ventolin 0.083% Nebulizer Soln -) 1 amp NEB Q4H PRN PRN Reason: SHORT OF BREATH/WHEEZING Albuterol Sulfate (Ventolin 0.083% Nebulizer Soln -) 1 amp NEB RQID [facility] Last Admin: 02/14/18 07:59 Dose: 1 amp Alprazolam (Xanax -) 0.25 mg PO BID [facility] Last Admin: 02/14/18 09:16 Dose: 0.25 mg Arformoterol Tartrate (Brovana (Restricted To Pulmonology/Resp) -) 1 amp NEB RBID [facility] Last Admin: 02/14/18 07:59 Dose: 1 amp Aspirin (Asa -) 81 mg PO DAILY [facility] Last Admin: 02/14/18 09:16 Dose: 81 mg Ferrous Sulfate (Feosol -) 325 mg PO BID [facility] Last Admin: 02/14/18 09:16 Dose: 325 mg Furosemide (Lasix -) 20 mg PO Q2D@1000 [facility] Last Admin: 02/13/18 10:21 Dose: 20 mg Heparin Sodium (Porcine) (Heparin -) 5,000 unit SQ TID [facility] Last Admin: 02/14/18 06:27 Dose: Not Given Methylprednisolone Sodium Succinate (Solu-Medrol -) 40 mg IVPUSH Q6H-IV [facility] Last Admin: 02/14/18 09:17 Dose: 40 mg Non-Formulary Medication (Beclomethasone Dipropionate [Qvar]) 8.7 gm IH DAILY [facility] Polyethylene Glycol (Miralax (For Daily Use) -) 17 gm PO DAILY PRN PRN Reason: CONSTIPATION Rosuvastatin Calcium (Crestor -) 20 mg PO HS [facility] Last Admin: 02/13/18 21:31 Dose: 20 mg Tamsulosin HCl (Flomax -) 0.4 mg PO DAILY@0830 [facility] Last Admin: 02/14/18 09:16 Dose: 0.4 mg Tiotropium [place] (Spiriva Respimat) 2 puff IH DAILY [facility] Last Admin: 02/14/18 09:16 Dose: 2 puff - Objective Vital Signs: Vital Signs Temperature 98 F 02/14/18 08:00 Pulse Rate 88 02/14/18 08:28 Respiratory Rate 18 02/14/18 08:00 Blood Pressure 121/60 02/14/18 08:00 O2 Sat by Pulse Oximetry (%) 98 02/14/18 09:00 Constitutional: Yes: Mild Distress Eyes: Yes: WNL HENT: Yes: WNL Neck: Yes: WNL Cardiovascular: Yes: WNL Respiratory: Yes: Diminished Gastrointestinal: Yes: WNL Genitourinary: Yes: WNL Musculoskeletal: Yes: Muscle Weakness Extremities: Yes: WNL Edema: No Peripheral Pulses WNL: Yes Integumentary: Yes: WNL Wound/Incision: Yes: Clean/Dry Neurological: Yes: WNL ...Motor Strength: WNL Psychiatric: Yes: WNL Labs: CBC, BMP 02/14/18 06:15 02/14/18 06:15 Problem List - Problems (1) COPD exacerbation Code(s): J44.1 - CHRONIC OBSTRUCTIVE PULMONARY DISEASE W (ACUTE) EXACERBATION (2) Acute and chronic respiratory failure Code(s): J96.20 - ACUTE AND CHR RESP FAILURE, UNSP W HYPOXIA OR HYPERCAPNIA Qualifiers: Respiratory failure complication: hypoxia and hypercapnia Qualified Code(s) : J96.21 - Acute and chronic respiratory failure with hypoxia; J96.22 - Acute and chronic respiratory failure with hypercapnia; J96.22 - Acute and chronic respiratory failure with hypercapnia; J96.22 - Acute and chronic respiratory failure with hypercapnia (3) Anemia Code(s): D64.9 - ANEMIA, UNSPECIFIED Qualifiers: Anemia type: unspecified type Qualified Code(s): D64.9 - Anemia, unspecified Assessment/Plan RESP SUPPORT NEBS IV CEFTRIAXONE ADD AZITHRO IF ABLE TO SWALLOW TAB PULM AND ID EVAL OOB TO CHAIR DVT PROPHYLAXIS
--- NOTE | 2018-02-14 11:17 | CON.PULM ---
Consult Consult Specialty:: PULM/CCM Referred by:: EJ Reason for Consultation:: SOB - History of Present Illness Chief Complaint: SOB History of Present Illness: 67 M, well known to me from previous admissions. 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 Admitted via the ER due to 2 to 3 days of increased cough, mucous production, and SOB/TAPIA. He was started on Azithromycin and was advised to increase his home prednisone from 6mg daily to 20mg daily. No travel history or sick contacts. No fever or chills. No hemoptysis. ABG noted. Concern for acute on chronic respiratory failure requiring NIPPV therapy. CXR: chronic changes with no acute process. - History Source History Provided By: Patient Limitations to Obtaining History: No Limitations - Past Medical History Cardio/Vascular: Yes: CAD, CHF, HTN, Hyperlipdemia, Pulmonary Hypertension Pulmonary: Yes: COPD (home oxygen), Previously Intubated (intubated one time several years ago for respiratory failure), Other (Interstitial lung disease) Gastrointestinal: Yes: GERD, Hiatal Hernia Renal/: Yes: Renal Calculi, UTI Additional Medical History: Inguinal hernia. 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 History of Recent Travel: No Home Medications - Allergies Allergies/Adverse Reactions: Allergies Allergy/AdvReac Type Severity Reaction Status Date / Time moxifloxacin HCl Allergy Severe Verified 02/13/18 00:56 [From Avelox] aclidinium bromide Allergy Verified 02/13/18 00:56 [From Tudorza Pressair] shellfish derived Allergy Verified 02/13/18 00:56 - Home Medications Home Medications: Ambulatory Orders Albuterol Sulfate Inhaler - [Ventolin HFA Inhaler -] 2 inh PO Q4H 02/08/14 Arformoterol Tartrate [Brovana] 15 mcg IH BID 02/08/14 Aspirin [ASA -] 81 mg PO DAILY 02/08/14 Tamsulosin HCl [Flomax -] 0.4 mg PO DAILY 02/08/14 Tiotropium [place] [Spiriva] 1 inh PO DAILY 02/08/14 Beclomethasone Dipropionate [Qvar] 8.7 gm IH DAILY 01/09/16 Alprazolam [Xanax] 0.25 mg PO BID #20 tablet MDD 2 01/18/16 Atorvastatin Ca [Lipitor] 10 mg PO DAILY 08/30/16 Polyethylene Glycol 3350 [Miralax 119 gm Btl -] 17 gm PO DAILY PRN #1 bottle 10/15 Ferrous Sulfate [Feosol] 325 mg PO BID ud 05/06/17 Furosemide [Lasix -] 20 mg PO DAILY tablet 05/06/17 Review of Systems - Review of Systems Constitutional: denies: Chills, Fever, Malaise, Unintentional Wgt. Loss Eyes: reports: No Symptoms HENT: reports: No Symptoms Neck: reports: No Symptoms Cardiovascular: reports: Shortness of Breath. denies: Chest Pain, Edema, Palpitations Respiratory: reports: Cough, SOB, SOB on Exertion, Wheezing. denies: Hemoptysis , Snoring Gastrointestinal: reports: No Symptoms Genitourinary: reports: No Symptoms Breasts: reports: No Symptoms Reported Musculoskeletal: reports: No Symptoms Integumentary: reports: No Symptoms Neurological: reports: No Symptoms Endocrine: reports: No Symptoms Hematology/Lymphatic: reports: No Symptoms Psychiatric: reports: No Symptoms Physical Exam Vital Sings: Vital Signs Temperature 98 F 02/14/18 08:00 Pulse Rate 88 02/14/18 08:28 Respiratory Rate 18 02/14/18 08:00 Blood Pressure 121/60 02/14/18 08:00 O2 Sat by Pulse Oximetry (%) 98 02/14/18 09:00 Constitutional: Yes: No Distress, Anxious Eyes: Yes: Conjunctiva Clear, EOM Intact HENT: Yes: Atraumatic, Normocephalic Neck: Yes: Supple, Trachea Midline Cardiovascular: Yes: Regular Rate and Rhythm Respiratory: Yes: Cough, Diminished, Poor Air Entry, Rhonchi, SOB, Tachypnea. No: Accessory Muscle Use, Stridor, Wheezes ...Inspection: Yes: WNL ...Clubbing: No Gastrointestinal: Yes: Normal Bowel Sounds, Soft Musculoskeletal: Yes: WNL Extremities: Yes: WNL Edema: No Peripheral Pulses WNL: Yes Integumentary: Yes: WNL Neurological: Yes: WNL, Alert, Oriented ...Motor Strength: WNL Psychiatric: Yes: WNL, Alert, Oriented Labs: CBC, BMP 02/14/18 06:15 02/14/18 06:15 ABG Results ABG pH 7.38 (7.35-7.45) 02/13/18 07:35 ABG pCO2 at Pt Temp 59.8 mmHg (35-45) H 02/13/18 07:35 ABG pO2 at Pt Temp 85.0 mmHg (80-100) D 02/13/18 07:35 ABG HCO3 34.7 meq/L (22-26) H 02/13/18 07:35 ABG O2 Sat (Measured) 96.7 % (90-98.9) 02/13/18 07:35 ABG O2 Content 18.5 % vol (15-22) 02/13/18 07:35 ABG Base Excess 7.8 meq/l (-2-2) H 02/13/18 07:35 Imaging - Results Chest X-ray: Report Reviewed, Image Reviewed Problem List - Problems (1) COPD exacerbation Code(s): J44.1 - CHRONIC OBSTRUCTIVE PULMONARY DISEASE W (ACUTE) EXACERBATION (3) Acute and chronic respiratory failure Code(s): J96.20 - ACUTE AND CHR RESP FAILURE, UNSP W HYPOXIA OR HYPERCAPNIA Qualifiers: Respiratory failure complication: hypoxia and hypercapnia Qualified Code(s) : J96.21 - Acute and chronic respiratory failure with hypoxia; J96.22 - Acute and chronic respiratory failure with hypercapnia; J96.22 - Acute and chronic respiratory failure with hypercapnia; J96.22 - Acute and chronic respiratory failure with hypercapnia (4) Acute respiratory distress Code(s): J80 - ACUTE RESPIRATORY DISTRESS SYNDROME (5) Anemia Code(s): D64.9 - ANEMIA, UNSPECIFIED Qualifiers: Anemia type: unspecified type Qualified Code(s): D64.9 - Anemia, unspecified (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 Code(s): F06.4 - ANXIETY DISORDER DUE TO KNOWN PHYSIOLOGICAL CONDITION (7) Arteriosclerotic heart disease (ASHD) Code(s): I25.10 - ATHSCL HEART DISEASE OF [place] CORONARY ARTERY W/O ANG PCTRS (8) Diastolic dysfunction Code(s): I51.9 - HEART DISEASE, UNSPECIFIED (9) Hyperlipidemia Code(s): E78.5 - HYPERLIPIDEMIA, UNSPECIFIED Qualifiers: Hyperlipidemia type: pure hypercholesterolemia Qualified Code(s): E78.00 - Pure hypercholesterolemia, unspecified; E78.0 - Pure hypercholesterolemia (10) MRSA (methicillin resistant Staphylococcus aureus) colonization Code(s): Z22.322 - CARRIER OR SUSPECTED CARRIER OF METHICILLIN RESIS STAPH (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 Assessment/Plan Medrol Brovana Spiriva Asmanex Would monitor off ABX May benefit from Daliresp O2 as needed NIPPV for increased WOB No smoking Will follow Thank you. Dr Donovan
[2018-02-14 11:24] LABS: PLATELET ESTIMATE ADEQUATE
[2018-02-14] MEDS ORDERED: cefTRIAXone SODIUM 1 GM VIAL ONE (14:46)
[2018-02-14] MEDS ORDERED: DEXTROSE 5%-WATER - 50 ML IVPB ONE (14:46)
[2018-02-14] MEDS: CEFTRIAXONE 1 GM in DEXTROSE 5%-WATER - 50 ML IVPB SCH (14:58)
[2018-02-14] MEDS: ALPRAZolam 0.25 MG TABLET PO PRN (16:03)
[2018-02-14] MEDS: ROSUVASTATIN CA 20 MG TABLET (FP) PO SCH (21:17)
[2018-02-14] MEDS: MOMETASONE FUROATE 220 MCG/IH INHALER IH SCH (21:17)
--- NOTE | 2018-02-14 21:46 | EKG ---
Test Reason : Blood Pressure : / mmHG Vent. Rate : 117 BPM Atrial Rate : 117 BPM P-R Int : 160 ms QRS Dur : 126 ms QT Int : 332 ms P-R-T Axes : 000 147 008 degrees QTc Int : 463 ms POOR DATA QUALITY, INTERPRETATION MAY BE ADVERSELY AFFECTED SINUS TACHYCARDIA RIGHT BUNDLE BRANCH BLOCK LEFT POSTERIOR FASCICULAR BLOCK BIFASCICULAR BLOCK ABNORMAL ECG WHEN COMPARED WITH ECG OF 18-JAN-2018 10:28, SIGNIFICANT CHANGES HAVE OCCURRED Confirmed by JOSE EARL MD [id number]) on 02/14/2018 9:46:16 PM Referred By: Confirmed By:JOSE EARL MD
[2018-02-15] MEDS: methylPREDNISolone NA SUCC 40 MG/1 ML VIAL IVPUSH SCH ×3 (02:45→17:24)
[2018-02-15] MEDS: HEPARIN NA (PORCINE) 5,000 UNITS/ML 1ML VIAL SQ SCH ×3 (05:03→22:02)
[2018-02-15] MEDS: ARFORMOTEROL TARTRATE 15 MCG/2 ML VIAL NEB SCH ×2 (07:34→20:22)
--- NOTE | 2018-02-15 08:07 | PN ---
Progress Note, Physician History of Present Illness: c/o cough--improved no cp - Current Medication List Current Medications: Active Medications Albuterol Sulfate (Ventolin 0.083% Nebulizer Soln -) 1 amp NEB Q4H PRN PRN Reason: SHORT OF BREATH/WHEEZING Alprazolam (Xanax -) 0.5 mg PO Q8H PRN PRN Reason: ANXIETY Last Admin: 02/14/18 16:03 Dose: 0.5 mg Arformoterol Tartrate (Brovana (Restricted To Pulmonology/Resp) -) 1 amp NEB RBID [facility] Last Admin: 02/15/18 07:34 Dose: 1 amp Aspirin (Asa -) 81 mg PO DAILY [facility] Last Admin: 02/14/18 09:16 Dose: 81 mg Ferrous Sulfate (Feosol -) 325 mg PO BID [facility] Last Admin: 02/14/18 21:17 Dose: 325 mg Furosemide (Lasix -) 20 mg PO Q2D@1000 [facility] Last Admin: 02/13/18 10:21 Dose: 20 mg Heparin Sodium (Porcine) (Heparin -) 5,000 unit SQ TID [facility] Last Admin: 02/15/18 05:03 Dose: Not Given Ceftriaxone Sodium 1 gm/ (Dextrose) 50 mls @ 100 mls/hr IVPB DAILY [facility]; Protocol Last Admin: 02/14/18 14:58 Dose: 100 mls/hr Methylprednisolone Sodium Succinate (Solu-Medrol -) 40 mg IVPUSH Q6H-IV TA Last Admin: 02/15/18 02:45 Dose: 40 mg Mometasone Furoate (Asmanex 220mcg -) 1 puff IH HS [facility] Last Admin: 02/14/18 21:17 Dose: 1 puff Polyethylene Glycol (Miralax (For Daily Use) -) 17 gm PO DAILY PRN PRN Reason: CONSTIPATION Rosuvastatin Calcium (Crestor -) 20 mg PO HS [facility] Last Admin: 02/14/18 21:17 Dose: 20 mg Tamsulosin HCl (Flomax -) 0.4 mg PO DAILY@0830 [facility] Last Admin: 02/14/18 09:16 Dose: 0.4 mg Tiotropium [place] (Spiriva Respimat) 2 puff IH DAILY [facility] Last Admin: 02/14/18 09:16 Dose: 2 puff - Objective Vital Signs: Vital Signs Temperature 97.9 F 09/17/18 05:48 Pulse Rate 63 02/15/18 05:48 Respiratory Rate 18 02/15/18 05:48 Blood Pressure 122/60 02/15/18 05:48 O2 Sat by Pulse Oximetry (%) 100 02/14/18 21:00 Cardiovascular: Yes: S1, S2 Respiratory: Yes: On Nasal O2, Rhonchi Gastrointestinal: Yes: Normal Bowel Sounds, Soft Labs: CBC, BMP 02/14/18 06:15 02/14/18 06:15 Problem List - Problems (1) COPD exacerbation Assessment/Plan: IV Steroids Nebs IV Abx Pulm on case Code(s): J44.1 - CHRONIC OBSTRUCTIVE PULMONARY DISEASE W (ACUTE) EXACERBATION (2) Acute and chronic respiratory failure Assessment/Plan: -As Above -Bipap Code(s): J96.20 - ACUTE AND CHR RESP FAILURE, UNSP W HYPOXIA OR HYPERCAPNIA Qualifiers: Respiratory failure complication: hypoxia and hypercapnia Qualified Code(s) : J96.21 - Acute and chronic respiratory failure with hypoxia; J96.22 - Acute and chronic respiratory failure with hypercapnia; J96.22 - Acute and chronic respiratory failure with hypercapnia; J96.22 - Acute and chronic respiratory failure with hypercapnia (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 Assessment/Plan: -On Xanax Code(s): F06.4 - ANXIETY DISORDER DUE TO KNOWN PHYSIOLOGICAL CONDITION (4) CHF (congestive heart failure) Assessment/Plan: -On po Lasix Code(s): I50.9 - HEART FAILURE, UNSPECIFIED
[2018-02-15] MEDS ORDERED: DEXTROSE 5%-WATER - 50 ML IVPB ONE (10:18)
[2018-02-15] MEDS ORDERED: cefTRIAXone SODIUM 1 GM VIAL ONE (10:18)
[2018-02-15] MEDS: CEFTRIAXONE 1 GM in DEXTROSE 5%-WATER - 50 ML IVPB SCH (10:32)
[2018-02-15] MEDS: FUROSEMIDE 20 MG TABLET (FP) PO SCH (10:33)
[2018-02-15] MEDS: ASPIRIN 81 MG CHEWABLE TABLETS PO SCH (10:33)
[2018-02-15] MEDS: TAMSULOSIN HCL 0.4 MG CAP.ER.24H (FP) PO SCH (10:33)
[2018-02-15] MEDS: FERROUS SO4 325 MG TABLET (FP) PO SCH ×2 (10:33→22:02)
[2018-02-15] MEDS: ALPRAZolam 0.25 MG TABLET PO PRN ×2 (11:09→20:43)
[2018-02-15] MEDS: ACETAMINOPHEN 325 MG TABLET (FP) PO PRN (12:02)
--- NOTE | 2018-02-15 12:12 | PN ---
Progress Note (short form) - Note Progress Note: [place] increased SOB this AM and now on NIPPV. Feels better at this point. No CP. Feels that there is a component of anxiety. Remains afebrile. Intake & Output 02/12/18 02/13/1818 02/15/18 23:59 23:59 23:59 23:59 Intake Total 640 980 250 Output Total 1150 Balance 640 -170 250 Weight 143 lb 9.6 oz 143 lb 9.6 oz 144 lb 12.8 oz Last Vital Signs Temp Pulse Resp BP Pulse Ox 97.9 F 84 18 122/60 99 02/15/18 05:48 02/15/18 11:07 02/15/18 05:48 02/15/18 05:48 02/15/18 11:07 Active Medications Acetaminophen (Tylenol -) 650 mg PO Q4H PRN PRN Reason: PAIN SCALE 1-5 Last Admin: 02/15/18 12:02 Dose: 650 mg Albuterol Sulfate (Ventolin 0.083% Nebulizer Soln -) 1 amp NEB Q4H PRN PRN Reason: SHORT OF BREATH/WHEEZING Alprazolam (Xanax -) 0.5 mg PO Q8H PRN PRN Reason: ANXIETY Last Admin: 02/15/18 11:09 Dose: 0.5 mg Arformoterol Tartrate (Brovana (Restricted To Pulmonology/Resp) -) 1 amp NEB RBID [facility] Last Admin: 02/15/18 07:34 Dose: 1 amp Aspirin (Asa -) 81 mg PO DAILY [facility] Last Admin: 02/15/18 10:33 Dose: 81 mg Ferrous Sulfate (Feosol -) 325 mg PO BID [facility] Last Admin: 02/15/18 10:33 Dose: 325 mg Furosemide (Lasix -) 20 mg PO Q2D@1000 TA Last Admin: 02/15/18 10:33 Dose: 20 mg Heparin Sodium (Porcine) (Heparin -) 5,000 unit SQ TID [facility] Last Admin: 02/15/18 05:03 Dose: Not Given Ceftriaxone Sodium 1 gm/ (Dextrose) 50 mls @ 100 mls/hr IVPB DAILY [facility]; Protocol Last Admin: 02/15/18 10:32 Dose: 100 mls/hr Methylprednisolone Sodium Succinate (Solu-Medrol -) 40 mg IVPUSH Q8H-IV [facility] Last Admin: 02/15/18 10:32 Dose: 40 mg Mometasone Furoate (Asmanex 220mcg -) 1 puff IH [facility] Last Admin: 02/14/18 21:17 Dose: 1 puff Polyethylene Glycol (Miralax (For Daily Use) -) 17 gm PO DAILY PRN PRN Reason: CONSTIPATION Rosuvastatin Calcium (Crestor -) 20 mg PO [facility] Last Admin: 02/14/18 21:17 Dose: 20 mg Tamsulosin HCl (Flomax -) 0.4 mg PO DAILY@0830 [facility] Last Admin: 02/15/18 10:33 Dose: 0.4 mg Tiotropium [place] (Spiriva Respimat) 2 puff IH DAILY [facility] Last Admin: 02/14/18 09:16 Dose: 2 puff Constitutional: Yes: No Distress on NIPPV, Anxious Eyes: Yes: Conjunctiva Clear, EOM Intact HENT: Yes: Atraumatic, Normocephalic Neck: Yes: Supple, Trachea Midline Cardiovascular: Yes: Regular Rate and Rhythm Respiratory: Yes: Cough, Diminished, Poor Air Entry, Rhonchi. No: Accessory Muscle Use, Stridor, Wheezes ...Inspection: Yes: WNL ...Clubbing: No Gastrointestinal: Yes: Normal Bowel Sounds, Soft Musculoskeletal: Yes: WNL Extremities: Yes: WNL Edema: No Peripheral Pulses WNL: Yes Integumentary: Yes: WNL Neurological: Yes: WNL, Alert, Oriented ...Motor Strength: WNL Psychiatric: Yes: WNL, Alert, Oriented Labs: Problem List - Problems (1) COPD exacerbation Code(s): J44.1 - CHRONIC OBSTRUCTIVE PULMONARY DISEASE W (ACUTE) EXACERBATION (3) Acute and chronic respiratory failure Code(s): J96.20 - ACUTE AND CHR RESP FAILURE, UNSP W HYPOXIA OR HYPERCAPNIA Qualifiers: Respiratory failure complication: hypoxia and hypercapnia Qualified Code(s) : J96.21 - Acute and chronic respiratory failure with hypoxia; J96.22 - Acute and chronic respiratory failure with hypercapnia; J96.22 - Acute and chronic respiratory failure with hypercapnia; J96.22 - Acute and chronic respiratory failure with hypercapnia (4) Acute respiratory distress Code(s): J80 - ACUTE RESPIRATORY DISTRESS SYNDROME (5) Anemia Code(s): D64.9 - ANEMIA, UNSPECIFIED Qualifiers: Anemia type: unspecified type Qualified Code(s): D64.9 - Anemia, unspecified (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 Code(s): F06.4 - ANXIETY DISORDER DUE TO KNOWN PHYSIOLOGICAL CONDITION (7) Arteriosclerotic heart disease (ASHD) Code(s): I25.10 - ATHSCL HEART DISEASE OF [place] CORONARY ARTERY W/O ANG PCTRS (8) Diastolic dysfunction Code(s): I51.9 - HEART DISEASE, UNSPECIFIED (9) Hyperlipidemia Code(s): E78.5 - HYPERLIPIDEMIA, UNSPECIFIED Qualifiers: Hyperlipidemia type: pure hypercholesterolemia Qualified Code(s): E78.00 - Pure hypercholesterolemia, unspecified; E78.0 - Pure hypercholesterolemia (10) MRSA (methicillin resistant Staphylococcus aureus) colonization Code(s): Z22.322 - CARRIER OR SUSPECTED CARRIER OF METHICILLIN RESIS STAPH (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 Assessment/Plan NIPPV support Medrol Brovana Spiriva Asmanex Noted Rocephin O2 as needed No smoking Mr Veloz would benefit from outpatient BiLevel ST due to chronic respiratory failure to potentially reduce admissions. His baseline PCO2 is about [address] Donovan Problem List - Problems (1) COPD exacerbation Code(s): J44.1 - CHRONIC OBSTRUCTIVE PULMONARY DISEASE W (ACUTE) EXACERBATION (3) Acute and chronic respiratory failure Code(s): J96.20 - ACUTE AND CHR RESP FAILURE, UNSP W HYPOXIA OR HYPERCAPNIA Qualifiers: Respiratory failure complication: hypoxia and hypercapnia Qualified Code(s) : J96.21 - Acute and chronic respiratory failure with hypoxia; J96.22 - Acute and chronic respiratory failure with hypercapnia (4) Acute respiratory distress Code(s): J80 - ACUTE RESPIRATORY DISTRESS SYNDROME (5) Anemia Code(s): D64.9 - ANEMIA, UNSPECIFIED Qualifiers: Anemia type: unspecified type Qualified Code(s): D64.9 - Anemia, unspecified (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 Code(s): F06.4 - ANXIETY DISORDER DUE TO KNOWN PHYSIOLOGICAL CONDITION (7) Arteriosclerotic heart disease (ASHD) Code(s): I25.10 - ATHSCL HEART DISEASE OF [place] CORONARY ARTERY W/O ANG PCTRS (8) Diastolic dysfunction Code(s): I51.9 - HEART DISEASE, UNSPECIFIED (9) Hyperlipidemia Code(s): E78.5 - HYPERLIPIDEMIA, UNSPECIFIED Qualifiers: Hyperlipidemia type: pure hypercholesterolemia Qualified Code(s): E78.00 - Pure hypercholesterolemia, unspecified; E78.0 - Pure hypercholesterolemia (10) MRSA (methicillin resistant Staphylococcus aureus) colonization Code(s): Z22.322 - CARRIER OR SUSPECTED CARRIER OF METHICILLIN RESIS STAPH (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
[2018-02-15] MEDS: TIOTROPIUM BROMIDE 2.5 MCG (SPIRIVA) RESPIMAT INHALER IH SCH (15:50)
[2018-02-15] MEDS ORDERED: PT OWN MED DRAWER 7, Y5N ONE ×2 (21:55→22:10)
[2018-02-15] MEDS: ROSUVASTATIN CA 20 MG TABLET (FP) PO SCH (22:02)
[2018-02-15] MEDS: MOMETASONE FUROATE 220 MCG/IH INHALER IH SCH (22:04)
[2018-02-16] MEDS: methylPREDNISolone NA SUCC 40 MG/1 ML VIAL IVPUSH SCH ×3 (02:45→17:54)
[2018-02-16] MEDS: HEPARIN NA (PORCINE) 5,000 UNITS/ML 1ML VIAL SQ SCH ×3 (05:15→22:15)
[2018-02-16] MEDS ORDERED: PT OWN MED DRAWER 7, Y5N ONE (06:48)
[2018-02-16] MEDS: ARFORMOTEROL TARTRATE 15 MCG/2 ML VIAL NEB SCH ×2 (08:00→20:10)
--- NOTE | 2018-02-16 08:53 | PN ---
Progress Note, Physician Chief Complaint: AWAKE ALERT STILL WITH DYSPNEA AT REST - Current Medication List Current Medications: Active Medications Acetaminophen (Tylenol -) 650 mg PO Q4H PRN PRN Reason: PAIN SCALE 1-5 Last Admin: 02/15/18 12:02 Dose: 650 mg Albuterol Sulfate (Ventolin 0.083% Nebulizer Soln -) 1 amp NEB Q4H PRN PRN Reason: SHORT OF BREATH/WHEEZING Alprazolam (Xanax -) 0.5 mg PO Q8H PRN PRN Reason: ANXIETY Last Admin: 02/15/18 20:43 Dose: 0.5 mg Arformoterol Tartrate (Brovana (Restricted To Pulmonology/Resp) -) 1 amp NEB RBID [facility] Last Admin: 02/15/18 20:22 Dose: 1 amp Aspirin (Asa -) 81 mg PO DAILY [facility] Last Admin: 02/15/18 10:33 Dose: 81 mg Ferrous Sulfate (Feosol -) 325 mg PO BID [facility] Last Admin: 02/15/18 22:02 Dose: 325 mg Furosemide (Lasix -) 20 mg PO Q2D@1000 [facility] Last Admin: 02/15/18 10:33 Dose: 20 mg Heparin Sodium (Porcine) (Heparin -) 5,000 unit SQ TID [facility] Last Admin: 02/16/18 05:15 Dose: Not Given Ceftriaxone Sodium 1 gm/ (Dextrose) 50 mls @ 100 mls/hr IVPB DAILY [facility]; Protocol Last Admin: 02/15/18 10:32 Dose: 100 mls/hr Methylprednisolone Sodium Succinate (Solu-Medrol -) 40 mg IVPUSH Q8H-IV [facility] Last Admin: 02/16/18 02:45 Dose: 40 mg Mometasone Furoate (Asmanex 220mcg -) 1 puff IH [facility] Last Admin: 02/15/18 22:04 Dose: 1 puff Polyethylene Glycol (Miralax (For Daily Use) -) 17 gm PO DAILY PRN PRN Reason: CONSTIPATION Last Admin: 02/15/18 22:02 Dose: 17 gm Rosuvastatin Calcium (Crestor -) 20 mg PO HS [facility] Last Admin: 02/15/18 22:02 Dose: 20 mg Tamsulosin HCl (Flomax -) 0.4 mg PO DAILY@0830 [facility] Last Admin: 02/15/18 10:33 Dose: 0.4 mg Tiotropium [place] (Spiriva Respimat) 2 puff IH DAILY [facility] Last Admin: 02/15/18 15:50 Dose: 2 puff - Objective Vital Signs: Vital Signs Temperature 97.9 F 02/16/18 04:00 Pulse Rate 76 02/16/18 04:00 Respiratory Rate 20 02/16/18 04:00 Blood Pressure 133/67 02/16/18 04:00 O2 Sat by Pulse Oximetry (%) 99 02/15/18 20:45 Constitutional: Yes: Mild Distress Eyes: Yes: WNL HENT: Yes: WNL Neck: Yes: WNL Cardiovascular: Yes: Pulse Irregular Respiratory: Yes: Diminished, On Nasal O2, SOB Gastrointestinal: Yes: WNL Genitourinary: Yes: WNL Musculoskeletal: Yes: Muscle Weakness Extremities: Yes: WNL Edema: No Peripheral Pulses WNL: Yes Integumentary: Yes: WNL Wound/Incision: Yes: Clean/Dry Neurological: Yes: WNL ...Motor Strength: WNL Psychiatric: Yes: WNL Labs: CBC, BMP 02/14/18 06:15 02/14/18 06:15 Problem List - Problems (1) COPD exacerbation Code(s): J44.1 - CHRONIC OBSTRUCTIVE PULMONARY DISEASE W (ACUTE) EXACERBATION (2) Acute and chronic respiratory failure Code(s): J96.20 - ACUTE AND CHR RESP FAILURE, UNSP W HYPOXIA OR HYPERCAPNIA Qualifiers: Respiratory failure complication: hypoxia and hypercapnia Qualified Code(s) : J96.21 - Acute and chronic respiratory failure with hypoxia; J96.22 - Acute and chronic respiratory failure with hypercapnia (3) Anemia Code(s): D64.9 - ANEMIA, UNSPECIFIED Qualifiers: Anemia type: unspecified type Qualified Code(s): D64.9 - Anemia, unspecified Assessment/Plan RESP SUPPORT NEBS IV CEFTRIAXONE ADD AZITHRO IF ABLE TO SWALLOW TAB PULM AND ID EVAL OOB TO CHAIR DVT PROPHYLAXIS O2 via NC as tolerated NIPPV support QHS and PRN Medrol: Can start to taper tomorrow if stable Brovana Spiriva Asmanex No smoking Mr Veloz would benefit from outpatient therapy with a Triology device due to chronic respiratory failure and advancement of his COPD along with lack of gas exchange, his baseline PCO2 is now 60 mmHg. He requires ventilation via a non- invasive ventilator as BiLevel is no longer effective in treatment to effectively decrease his work of breathing and to improve his pulmonary status and prevent interruption or failure of respiratory support.
[2018-02-16] MEDS ORDERED: SENNOSIDES 8.6MG TABLET (FP) PO PRN (09:11)
[2018-02-16] MEDS ORDERED: MAGNESIUM HYDROX 2400MG/30ML ORAL SUSPENSION 30 ML CUP PO PRN (09:11)
[2018-02-16] MEDS ORDERED: DEXTROSE 5%-WATER - 50 ML IVPB ONE (09:44)
[2018-02-16] MEDS ORDERED: cefTRIAXone SODIUM 1 GM VIAL ONE (09:44)
[2018-02-16] MEDS: TAMSULOSIN HCL 0.4 MG CAP.ER.24H (FP) PO SCH (09:52)
[2018-02-16] MEDS: FERROUS SO4 325 MG TABLET (FP) PO SCH ×2 (09:52→22:18)
[2018-02-16] MEDS: ASPIRIN 81 MG CHEWABLE TABLETS PO SCH (09:52)
[2018-02-16] MEDS: CEFTRIAXONE 1 GM in DEXTROSE 5%-WATER - 50 ML IVPB SCH (09:52)
[2018-02-16] MEDS: TIOTROPIUM BROMIDE 2.5 MCG (SPIRIVA) RESPIMAT INHALER IH SCH (10:34)
--- NOTE | 2018-02-16 11:38 | PN ---
Progress Note (short form) - Note Progress Note: Breathing feels better today. Less SOB. Now on NC O2. Used NIPPV overnight with benefit. Remains afebrile. Intake & Output 02/13/18 02/14/18 02/15/18 02/16/18 23:59 23:59 23:59 23:59 Intake Total 640 980 450 Output Total 1150 250 Balance 640 -170 200 Weight 143 lb 9.6 oz 143 lb 9.6 oz 144 lb 12.8 oz 146 lb 11.2 oz Last Vital Signs Temp Pulse Resp BP Pulse Ox 97.9 F 76 20 133/67 97 02/16/18 04:00 02/16/18 04:00 02/16/18 04:00 02/16/18 04:00 02/16/18 08:06 Active Medications Acetaminophen (Tylenol -) 650 mg PO Q4H PRN PRN Reason: PAIN SCALE 1-5 Last Admin: 02/15/18 12:02 Dose: 650 mg Albuterol Sulfate (Ventolin 0.083% Nebulizer Soln -) 1 amp NEB Q4H PRN PRN Reason: SHORT OF BREATH/WHEEZING Alprazolam (Xanax -) 0.5 mg PO Q8H PRN PRN Reason: ANXIETY Last Admin: 02/15/18 20:43 Dose: 0.5 mg Arformoterol Tartrate (Brovana (Restricted To Pulmonology/Resp) -) 1 amp NEB RBID [facility] Last Admin: 02/16/18 08:00 Dose: 1 amp Aspirin (Asa -) 81 mg PO DAILY [facility] Last Admin: 02/16/18 09:52 Dose: 81 mg Ferrous Sulfate (Feosol -) 325 mg PO BID [facility] Last Admin: 02/16/18 09:52 Dose: 325 mg Furosemide (Lasix -) 20 mg PO Q2D@1000 [facility] Last Admin: 02/15/18 10:33 Dose: 20 mg Heparin Sodium (Porcine) (Heparin -) 5,000 unit SQ TID [facility] Last Admin: 02/16/18 05:15 Dose: Not Given Ceftriaxone Sodium 1 gm/ (Dextrose) 50 mls @ 100 mls/hr IVPB DAILY [facility]; Protocol Last Admin: 02/16/18 09:52 Dose: 100 mls/hr Magnesium Hydroxide (Milk Of Magnesia -) 30 ml PO DAILY PRN PRN Reason: CONSTIPATION Methylprednisolone Sodium Succinate (Solu-Medrol -) 40 mg IVPUSH Q8H-IV [facility] Last Admin: 02/16/18 09:52 Dose: 40 mg Mometasone Furoate (Asmanex 220mcg -) 1 puff IH HS [facility] Last Admin: 02/15/18 22:04 Dose: 1 puff Polyethylene Glycol (Miralax (For Daily Use) -) 17 gm PO DAILY PRN PRN Reason: CONSTIPATION Last Admin: 02/15/18 22:02 Dose: 17 gm Rosuvastatin Calcium (Crestor -) 20 mg PO HS [facility] Last Admin: 02/15/18 22:02 Dose: 20 mg Senna (Senna -) 2 tab PO HS PRN PRN Reason: CONSTIPATION Tamsulosin HCl (Flomax -) 0.4 mg PO DAILY@0830 [facility] Last Admin: 02/16/18 09:52 Dose: 0.4 mg Tiotropium [place] (Spiriva Respimat) 2 puff IH DAILY [facility] Last Admin: 02/16/18 10:34 Dose: 2 puff Constitutional: Yes: More comfortable on NC O2 Eyes: Yes: Conjunctiva Clear, EOM Intact HENT: Yes: Atraumatic, Normocephalic Neck: Yes: Supple, Trachea Midline Cardiovascular: Yes: Regular Rate and Rhythm Respiratory: Yes: Cough, Diminished, Poor Air Entry, Rhonchi. No: Accessory Muscle Use, Stridor, Wheezes ...Inspection: Yes: WNL ...Clubbing: No Gastrointestinal: Yes: Normal Bowel Sounds, Soft Musculoskeletal: Yes: WNL Extremities: Yes: WNL Edema: No Peripheral Pulses WNL: Yes Integumentary: Yes: WNL Neurological: Yes: WNL, Alert, Oriented ...Motor Strength: WNL Psychiatric: Yes: WNL, Alert, Oriented Labs: Problem List - Problems (1) COPD exacerbation Code(s): J44.1 - CHRONIC OBSTRUCTIVE PULMONARY DISEASE W (ACUTE) EXACERBATION (3) Acute and chronic respiratory failure Code(s): J96.20 - ACUTE AND CHR RESP FAILURE, UNSP W HYPOXIA OR HYPERCAPNIA Qualifiers: Respiratory failure complication: hypoxia and hypercapnia Qualified Code(s) : J96.21 - Acute and chronic respiratory failure with hypoxia; J96.22 - Acute and chronic respiratory failure with hypercapnia; J96.22 - Acute and chronic respiratory failure with hypercapnia; J96.22 - Acute and chronic respiratory failure with hypercapnia (4) Acute respiratory distress Code(s): J80 - ACUTE RESPIRATORY DISTRESS SYNDROME (5) Anemia Code(s): D64.9 - ANEMIA, UNSPECIFIED Qualifiers: Anemia type: unspecified type Qualified Code(s): D64.9 - Anemia, unspecified (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 Code(s): F06.4 - ANXIETY DISORDER DUE TO KNOWN PHYSIOLOGICAL CONDITION (7) Arteriosclerotic heart disease (ASHD) Code(s): I25.10 - ATHSCL HEART DISEASE OF [place] CORONARY ARTERY W/O ANG PCTRS (8) Diastolic dysfunction Code(s): I51.9 - HEART DISEASE, UNSPECIFIED (9) Hyperlipidemia Code(s): E78.5 - HYPERLIPIDEMIA, UNSPECIFIED Qualifiers: Hyperlipidemia type: pure hypercholesterolemia Qualified Code(s): E78.00 - Pure hypercholesterolemia, unspecified; E78.0 - Pure hypercholesterolemia (10) MRSA (methicillin resistant Staphylococcus aureus) colonization Code(s): Z22.322 - CARRIER OR SUSPECTED CARRIER OF METHICILLIN RESIS STAPH (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 Assessment/Plan O2 via NC as tolerated NIPPV support QHS and PRN Medrol: Can start to taper tomorrow if stable Brovana Spiriva Asmanex Noted Rocephin No smoking Mr Veloz would benefit from outpatient therapy with a Triology device due to chronic respiratory failure and advancement of his COPD along with lack of gas exchange, his baseline PCO2 is now 60 mmHg. He requires ventilation via a non- invasive ventilator as BiLevel is no longer effective in treatment to effectively decrease his work of breathing and to improve his pulmonary status and prevent interruption or failure of respiratory support. Dr Donovan Problem List - Problems (1) COPD exacerbation Code(s): J44.1 - CHRONIC OBSTRUCTIVE PULMONARY DISEASE W (ACUTE) EXACERBATION (3) Acute and chronic respiratory failure Code(s): J96.20 - ACUTE AND CHR RESP FAILURE, UNSP W HYPOXIA OR HYPERCAPNIA Qualifiers: Respiratory failure complication: hypoxia and hypercapnia Qualified Code(s) : J96.21 - Acute and chronic respiratory failure with hypoxia; J96.22 - Acute and chronic respiratory failure with hypercapnia (4) Acute respiratory distress Code(s): J80 - ACUTE RESPIRATORY DISTRESS SYNDROME (5) Anemia Code(s): D64.9 - ANEMIA, UNSPECIFIED Qualifiers: Anemia type: unspecified type Qualified Code(s): D64.9 - Anemia, unspecified (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 Code(s): F06.4 - ANXIETY DISORDER DUE TO KNOWN PHYSIOLOGICAL CONDITION (7) Arteriosclerotic heart disease (ASHD) Code(s): I25.10 - ATHSCL HEART DISEASE OF [place] CORONARY ARTERY W/O ANG PCTRS (8) Diastolic dysfunction Code(s): I51.9 - HEART DISEASE, UNSPECIFIED (9) Hyperlipidemia Code(s): E78.5 - HYPERLIPIDEMIA, UNSPECIFIED Qualifiers: Hyperlipidemia type: pure hypercholesterolemia Qualified Code(s): E78.00 - Pure hypercholesterolemia, unspecified; E78.0 - Pure hypercholesterolemia (10) MRSA (methicillin resistant Staphylococcus aureus) colonization Code(s): Z22.322 - CARRIER OR SUSPECTED CARRIER OF METHICILLIN RESIS STAPH (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
[2018-02-16] MEDS: ALPRAZolam 0.25 MG TABLET PO PRN (17:54)
[2018-02-16] MEDS ORDERED: ALPRAZolam 0.25 MG TABLET PO ONE (22:14)
[2018-02-16] MEDS: ROSUVASTATIN CA 20 MG TABLET (FP) PO SCH (22:18)
[2018-02-16] MEDS: MOMETASONE FUROATE 220 MCG/IH INHALER IH SCH (22:18)
[2018-02-17] MEDS: methylPREDNISolone NA SUCC 40 MG/1 ML VIAL IVPUSH SCH ×4 (02:02→21:06)
[2018-02-17] MEDS: HEPARIN NA (PORCINE) 5,000 UNITS/ML 1ML VIAL SQ SCH ×3 (05:36→21:05)
[2018-02-17 07:12] LABS: HEMATOCRIT 36.1 % (35.4-49); HEMOGLOBIN 11.8 GM/dL (11.7-16.9); MCH 29.6 pg (25.7-33.7); MCHC 32.8 g/dl (32.0-35.9); MEAN CELL VOLUME 90.3 fl (80-96); MEAN PLT VOLUME 8.6 fl (7.5-11.1); PLATELET COUNT 135 K/MM3 (134-434); WHITE BLOOD COUNT 10.6 K/mm3 (4.0-10.0)
[2018-02-17] MEDS: ARFORMOTEROL TARTRATE 15 MCG/2 ML VIAL NEB SCH ×2 (07:40→20:55)
[2018-02-17 07:43] LABS: CHLORIDE 101 mmol/L (98-107); POTASSIUM 5.5 mmol/L (3.5-5.1); SODIUM 143 mmol/L (136-145)
[2018-02-17 07:52] LABS: ALBUMIN 3.1 g/dl (3.4-5.0); ALK PHOS 82 U/L (45-117); ANION GAP 4 MMOL/L (8-16); BILIRUBIN,TOTAL 0.3 mg/dL (0.2-1); BLOOD UREA NITROGEN 24 mg/dL (7-18); CALCIUM 8.6 mg/dL (8.5-10.1); CO2 38 mmol/L (21-32); CREATININE 0.7 mg/dL (0.55-1.3); GLUCOSE,RANDOM 125 mg/dL (74-106); MAGNESIUM 2.7 mg/dL (1.8-2.4); SGOT/AST 14 U/L (15-37); SGPT/ALT 24 U/L (13-61)
--- NOTE | 2018-02-17 09:14 | PN ---
Progress Note, Physician Chief Complaint: AWAKE ALERT DENIES CHEST PAIN HAS SOB - Current Medication List Current Medications: Active Medications Acetaminophen (Tylenol -) 650 mg PO Q4H PRN PRN Reason: PAIN SCALE 1-5 Last Admin: 02/15/18 12:02 Dose: 650 mg Albuterol Sulfate (Ventolin 0.083% Nebulizer Soln -) 1 amp NEB Q4H PRN PRN Reason: SHORT OF BREATH/WHEEZING Alprazolam (Xanax -) 0.5 mg PO Q8H PRN PRN Reason: ANXIETY Last Admin: 02/16/18 17:54 Dose: 0.5 mg Arformoterol Tartrate (Brovana (Restricted To Pulmonology/Resp) -) 1 amp NEB RBID [facility] Last Admin: 02/17/18 07:40 Dose: 1 amp Aspirin (Asa -) 81 mg PO DAILY [facility] Last Admin: 02/16/18 09:52 Dose: 81 mg Ferrous Sulfate (Feosol -) 325 mg PO BID [facility] Last Admin: 02/16/18 22:18 Dose: 325 mg Furosemide (Lasix -) 20 mg PO Q2D@1000 [facility] Last Admin: 02/15/18 10:33 Dose: 20 mg Heparin Sodium (Porcine) (Heparin -) 5,000 unit SQ TID [facility] Last Admin: 02/17/18 05:36 Dose: Not Given Ceftriaxone Sodium 1 gm/ (Dextrose) 50 mls @ 100 mls/hr IVPB DAILY [facility]; Protocol Last Admin: 02/16/18 09:52 Dose: 100 mls/hr Magnesium Hydroxide (Milk Of Magnesia -) 30 ml PO DAILY PRN PRN Reason: CONSTIPATION Last Admin: 02/16/18 22:18 Dose: 30 ml Methylprednisolone Sodium Succinate (Solu-Medrol -) 40 mg IVPUSH Q8H-IV [facility] Last Admin: 02/17/18 02:02 Dose: 40 mg Mometasone Furoate (Asmanex 220mcg -) 1 puff IH [facility] Last Admin: 02/16/18 22:18 Dose: 1 puff Polyethylene Glycol (Miralax (For Daily Use) -) 17 gm PO DAILY PRN PRN Reason: CONSTIPATION Last Admin: 02/15/18 22:02 Dose: 17 gm Rosuvastatin Calcium (Crestor -) 20 mg PO [facility] Last Admin: 02/16/18 22:18 Dose: 20 mg Senna (Senna -) 2 tab PO HS PRN PRN Reason: CONSTIPATION Tamsulosin HCl (Flomax -) 0.4 mg PO DAILY@0830 [facility] Last Admin: 02/16/18 09:52 Dose: 0.4 mg Tiotropium [place] (Spiriva Respimat) 2 puff IH DAILY [facility] Last Admin: 02/16/18 10:34 Dose: 2 puff - Objective Vital Signs: Vital Signs Temperature 97.6 F 02/17/18 05:25 Pulse Rate 61 02/17/18 05:25 Respiratory Rate 20 02/17/18 05:25 Blood Pressure 140/73 02/17/18 05:25 O2 Sat by Pulse Oximetry (%) 97 02/17/18 00:30 Constitutional: Yes: Mild Distress Eyes: Yes: WNL HENT: Yes: WNL Neck: Yes: WNL Cardiovascular: Yes: WNL Respiratory: Yes: Cough, Diminished, On Nasal O2, SOB Gastrointestinal: Yes: WNL Genitourinary: Yes: WNL Musculoskeletal: Yes: Muscle Weakness Extremities: Yes: WNL Edema: No Peripheral Pulses WNL: Yes Integumentary: Yes: WNL Wound/Incision: Yes: Clean/Dry ...Motor Strength: WNL Psychiatric: Yes: WNL Labs: CBC, BMP 02/17/18 06:30 02/17/18 06:30 Problem List - Problems (1) COPD exacerbation Code(s): J44.1 - CHRONIC OBSTRUCTIVE PULMONARY DISEASE W (ACUTE) EXACERBATION (2) Acute and chronic respiratory failure Code(s): J96.20 - ACUTE AND CHR RESP FAILURE, UNSP W HYPOXIA OR HYPERCAPNIA Qualifiers: Respiratory failure complication: hypoxia and hypercapnia Qualified Code(s) : J96.21 - Acute and chronic respiratory failure with hypoxia; J96.22 - Acute and chronic respiratory failure with hypercapnia (3) Anemia Code(s): D64.9 - ANEMIA, UNSPECIFIED Qualifiers: Anemia type: unspecified type Qualified Code(s): D64.9 - Anemia, unspecified Assessment/Plan HYPERKALEMIA WILL GIVE KAYEXALATE NOW REPEAT LEVELS RESP SUPPORT NEBS IV CEFTRIAXONE ADD AZITHRO IF ABLE TO SWALLOW TAB PULM AND ID EVAL OOB TO CHAIR DVT PROPHYLAXIS O2 via NC as tolerated NIPPV support QHS and PRN Medrol: Can start to taper tomorrow if stable Brovana Spiriva Asmanex No smoking Mr Veloz would benefit from outpatient therapy with a Triology device due to chronic respiratory failure and advancement of his COPD along with lack of gas exchange, his baseline PCO2 is now 60 mmHg. He requires ventilation via a non- invasive ventilator as BiLevel is no longer effective in treatment to effectively decrease his work of breathing and to improve his pulmonary status and prevent interruption or failure of respiratory support.
[2018-02-17] MEDS ORDERED: cefTRIAXone SODIUM 1 GM VIAL ONE (09:53)
[2018-02-17] MEDS ORDERED: DEXTROSE 5%-WATER - 50 ML IVPB ONE (09:54)
[2018-02-17] MEDS: CEFTRIAXONE 1 GM in DEXTROSE 5%-WATER - 50 ML IVPB SCH (09:58)
[2018-02-17] MEDS: FUROSEMIDE 20 MG TABLET (FP) PO SCH (09:59)
[2018-02-17] MEDS: TAMSULOSIN HCL 0.4 MG CAP.ER.24H (FP) PO SCH (09:59)
[2018-02-17] MEDS: FERROUS SO4 325 MG TABLET (FP) PO SCH ×2 (09:59→21:04)
[2018-02-17] MEDS: ALPRAZolam 0.25 MG TABLET PO PRN ×2 (09:59→21:04)
[2018-02-17] MEDS: ASPIRIN 81 MG CHEWABLE TABLETS PO SCH (09:59)
[2018-02-17] MEDS: TIOTROPIUM BROMIDE 2.5 MCG (SPIRIVA) RESPIMAT INHALER IH SCH (09:59)
--- NOTE | 2018-02-17 10:20 | PN ---
Progress Note (short form) - Note Progress Note: Breathing feels better today. Less SOB. Now on NC O2. Used NIPPV overnight with benefit. Remains afebrile. Intake & Output 02/14/18 02/15/1818 02/17/18 23:59 23:59 23:59 23:59 Intake Total 980 450 750 Output Total 1150 250 Balance -170 200 750 Weight 143 lb 9.6 oz 144 lb 12.8 oz 146 lb 11.2 oz 146 lb 4 oz Last Vital Signs Temp Pulse Resp BP Pulse Ox 97.6 F 61 20 140/73 97 02/17/18 05:25 02/17/18 05:25 02/17/18 05:25 02/17/18 05:25 02/17/18 00:30 Active Medications Acetaminophen (Tylenol -) 650 mg PO Q4H PRN PRN Reason: PAIN SCALE 1-5 Last Admin: 02/15/18 12:02 Dose: 650 mg Albuterol Sulfate (Ventolin 0.083% Nebulizer Soln -) 1 amp NEB Q4H PRN PRN Reason: SHORT OF BREATH/WHEEZING Alprazolam (Xanax -) 0.5 mg PO Q8H PRN PRN Reason: ANXIETY Last Admin: 02/17/18 09:59 Dose: 0.5 mg Arformoterol Tartrate (Brovana (Restricted To Pulmonology/Resp) -) 1 amp NEB RBID [facility] Last Admin: 02/17/18 07:40 Dose: 1 amp Aspirin (Asa -) 81 mg PO DAILY [facility] Last Admin: 02/17/18 09:59 Dose: 81 mg Ferrous Sulfate (Feosol -) 325 mg PO BID [facility] Last Admin: 02/17/18 09:59 Dose: 325 mg Furosemide (Lasix -) 20 mg PO Q2D@1000 [facility] Last Admin: 02/17/18 09:59 Dose: 20 mg Heparin Sodium (Porcine) (Heparin -) 5,000 unit SQ TID [facility] Last Admin: 02/17/18 05:36 Dose: Not Given Ceftriaxone Sodium 1 gm/ (Dextrose) 50 mls @ 100 mls/hr IVPB DAILY [facility]; Protocol Last Admin: 02/17/18 09:58 Dose: 100 mls/hr Magnesium Hydroxide (Milk Of Magnesia -) 30 ml PO DAILY PRN PRN Reason: CONSTIPATION Last Admin: 02/16/18 22:18 Dose: 30 ml Methylprednisolone Sodium Succinate (Solu-Medrol -) 40 mg IVPUSH Q8H-IV [facility] Last Admin: 02/17/18 09:59 Dose: 40 mg Mometasone Furoate (Asmanex 220mcg -) 1 puff IH HS [facility] Last Admin: 02/16/18 22:18 Dose: 1 puff Polyethylene Glycol (Miralax (For Daily Use) -) 17 gm PO DAILY PRN PRN Reason: CONSTIPATION Last Admin: 02/15/18 22:02 Dose: 17 gm Rosuvastatin Calcium (Crestor -) 20 mg PO HS [facility] Last Admin: 02/16/18 22:18 Dose: 20 mg Senna (Senna -) 2 tab PO HS PRN PRN Reason: CONSTIPATION Tamsulosin HCl (Flomax -) 0.4 mg PO DAILY@0830 [facility] Last Admin: 02/17/18 09:59 Dose: 0.4 mg Tiotropium [place] (Spiriva Respimat) 2 puff IH DAILY [facility] Last Admin: 02/17/18 09:59 Dose: 2 puff Constitutional: Yes: More comfortable on NC O2 Eyes: Yes: Conjunctiva Clear, EOM Intact HENT: Yes: Atraumatic, Normocephalic Neck: Yes: Supple, Trachea Midline Cardiovascular: Yes: Regular Rate and Rhythm Respiratory: Yes: Cough, Diminished, Poor Air Entry, Rhonchi. No: Accessory Muscle Use, Stridor, Wheezes ...Inspection: Yes: WNL ...Clubbing: No Gastrointestinal: Yes: Normal Bowel Sounds, Soft Musculoskeletal: Yes: WNL Extremities: Yes: WNL Edema: No Peripheral Pulses WNL: Yes Integumentary: Yes: WNL Neurological: Yes: WNL, Alert, Oriented ...Motor Strength: WNL Psychiatric: Yes: WNL, Alert, Oriented Labs: Problem List - Problems (1) COPD exacerbation Code(s): J44.1 - CHRONIC OBSTRUCTIVE PULMONARY DISEASE W (ACUTE) EXACERBATION (3) Acute and chronic respiratory failure Code(s): J96.20 - ACUTE AND CHR RESP FAILURE, UNSP W HYPOXIA OR HYPERCAPNIA Qualifiers: Respiratory failure complication: hypoxia and hypercapnia Qualified Code(s) : J96.21 - Acute and chronic respiratory failure with hypoxia; J96.22 - Acute and chronic respiratory failure with hypercapnia; J96.22 - Acute and chronic respiratory failure with hypercapnia; J96.22 - Acute and chronic respiratory failure with hypercapnia (4) Acute respiratory distress Code(s): J80 - ACUTE RESPIRATORY DISTRESS SYNDROME (5) Anemia Code(s): D64.9 - ANEMIA, UNSPECIFIED Qualifiers: Anemia type: unspecified type Qualified Code(s): D64.9 - Anemia, unspecified (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 Code(s): F06.4 - ANXIETY DISORDER DUE TO KNOWN PHYSIOLOGICAL CONDITION (7) Arteriosclerotic heart disease (ASHD) Code(s): I25.10 - ATHSCL HEART DISEASE OF [place] CORONARY ARTERY W/O ANG PCTRS (8) Diastolic dysfunction Code(s): I51.9 - HEART DISEASE, UNSPECIFIED (9) Hyperlipidemia Code(s): E78.5 - HYPERLIPIDEMIA, UNSPECIFIED Qualifiers: Hyperlipidemia type: pure hypercholesterolemia Qualified Code(s): E78.00 - Pure hypercholesterolemia, unspecified; E78.0 - Pure hypercholesterolemia (10) MRSA (methicillin resistant Staphylococcus aureus) colonization Code(s): Z22.322 - CARRIER OR SUSPECTED CARRIER OF METHICILLIN RESIS STAPH (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 Assessment/Plan O2 via NC as tolerated NIPPV support QHS and PRN Wean Medrol: Hope to change to Prednisone in AM Jah Raya Noted Rocephin No smoking Mr Veloz would benefit from outpatient therapy with a Triology device due to chronic respiratory failure and advancement of his COPD along with lack of gas exchange, his baseline PCO2 is now 60 mmHg. He requires ventilation via a non- invasive ventilator as BiLevel is no longer effective in treatment to effectively decrease his work of breathing and to improve his pulmonary status and prevent interruption or failure of respiratory support. Dr Venus Problem List - Problems (1) COPD exacerbation Code(s): J44.1 - CHRONIC OBSTRUCTIVE PULMONARY DISEASE W (ACUTE) EXACERBATION (3) Acute and chronic respiratory failure Code(s): J96.20 - ACUTE AND CHR RESP FAILURE, UNSP W HYPOXIA OR HYPERCAPNIA Qualifiers: Respiratory failure complication: hypoxia and hypercapnia Qualified Code(s) : J96.21 - Acute and chronic respiratory failure with hypoxia; J96.22 - Acute and chronic respiratory failure with hypercapnia (4) Acute respiratory distress Code(s): J80 - ACUTE RESPIRATORY DISTRESS SYNDROME (5) Anemia Code(s): D64.9 - ANEMIA, UNSPECIFIED Qualifiers: Anemia type: unspecified type Qualified Code(s): D64.9 - Anemia, unspecified (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 Code(s): F06.4 - ANXIETY DISORDER DUE TO KNOWN PHYSIOLOGICAL CONDITION (7) Arteriosclerotic heart disease (ASHD) Code(s): I25.10 - ATHSCL HEART DISEASE OF [place] CORONARY ARTERY W/O ANG PCTRS (8) Diastolic dysfunction Code(s): I51.9 - HEART DISEASE, UNSPECIFIED (9) Hyperlipidemia Code(s): E78.5 - HYPERLIPIDEMIA, UNSPECIFIED Qualifiers: Hyperlipidemia type: pure hypercholesterolemia Qualified Code(s): E78.00 - Pure hypercholesterolemia, unspecified; E78.0 - Pure hypercholesterolemia (10) MRSA (methicillin resistant Staphylococcus aureus) colonization Code(s): Z22.322 - CARRIER OR SUSPECTED CARRIER OF METHICILLIN RESIS STAPH (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
--- NOTE | 2018-02-17 16:36 | PN ---
Progress Note (short form) - Note Progress Note: ID consult dictated copd exacerbation MRSA colonization remote history of atypical mycobactria hoarseness steroids per pulmonary complete 7 days ceftriaxone contact isolation outpt f/u with ent/gi for hoarseness Problem List - Problems (1) COPD exacerbation Code(s): J44.1 - CHRONIC OBSTRUCTIVE PULMONARY DISEASE W (ACUTE) EXACERBATION (2) MRSA (methicillin resistant Staphylococcus aureus) colonization Code(s): Z22.322 - CARRIER OR SUSPECTED CARRIER OF METHICILLIN RESIS STAPH (3) Mycobacteria, atypical Code(s): A31.9 - MYCOBACTERIAL INFECTION, UNSPECIFIED (4) Hoarseness Code(s): R49.0 - DYSPHONIA
[2018-02-17] MEDS ORDERED: SODIUM POLYSTYRENE SULFONATE 15 GM/60 ML BOTTLE PO ONE (18:04)
--- NOTE | 2018-02-17 18:58 | CONS ---
DATE OF CONSULTATION: DATE OF DICTATION: 02/17/2018 REQUESTING PHYSICIAN: Genesis Evans M.D. CONSULTING PHYSICIAN: Akua Bryan M.D. HISTORY OF PRESENT ILLNESS: This is a 67-year-old man with a history of COPD. He is on home oxygen. He was admitted on the 13 of February for COPD exacerbation. He had 2-3 days or worsening shortness of breath. He called Dr. Mckee, his logging specialist, who started him on azithromycin orally and increased his prednisone from 4 mg to 20 mg daily without any improvement, so he presented to the ER. He had a chest x-ray done that was normal. He was started on ceftriaxone and is currently on steroids and starting to feel better. He notes he has had a chronic hoarse voice now for the last 6 months for which he has seen ENT and was told his vocal cords are normal. He is planning to follow up with GI. PAST MEDICAL HISTORY: Notable for history of oxygen dependent COPD, left upper lobe cavity which was coronary artery disease, myocardial infarction, congestive heart failure, hyperlipidemia, pulmonary hypertension. SURGICAL HISTORY: Notable for appendectomy and umbilical hernia repair. ALLERGIES: MOXIFLOXACIN and ACLIDINIUM BROMIDE and SHELLFISH. MEDICATION: As an outpatient include Spiriva, Flomax, Miralax, Lasix, Feosol, Qvar, Lipitor, aspirin, Brovana, Xanax, Ventolin. He takes 4-6 mg of prednisone daily. SOCIAL HISTORY: He is . He lives with his . He attends pulmonary rehabilitation. He tells me he uses the bike as well as the treadmill in rehabilitation. He stopped smoking 10 years ago. 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 No history of alcohol or substance use. FAMILY HISTORY: Notable for colon cancer, coronary artery disease COPD. REVIEW OF SYSTEMS: He reports shortness of breath has improved. He complains of continued change in his voice. PHYSICAL EXAMINATION: GENERAL: He is awake and alert, in no distress. He is able to lay flat comfortably. VITAL SIGNS: He is afebrile, temperature 97.8, pulse 78, blood pressure 123/61, respiratory rate 20. HEENT: Normocephalic. Eyes are anicteric. He has no thrush or pharyngitis. LUNGS: Diminished breath sounds at the bases. HEART: Regular rate and rhythm. ABDOMEN: Soft, nontender. EXTREMITIES: Without edema. LABORATORY: Notable for white count of 10.6, hemoglobin 11.8, platelets of 135, BUN and creatinine are 24 and 0.7. Urinalysis is negative. Blood cultures are negative. IMPRESSION: In summary, this is a 67-year-old man admitted for chronic obstructive pulmonary disease exacerbation. He has a history of home oxygen. He is being followed at [place] for lung transplant. 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 I would suggest at this time that we continue his management per pulmonary with steroids tapering as per pulmonary. He is currently on ceftriaxone day 5, would finish a 7-day course, as he appears to be clinically improving. Regarding his hoarseness, he will need followup with ENT and GI as an outpatient. Patient was informed of this. AKUA BRYAN M.D. [id number]
--- NOTE | 2018-02-17 19:36 | CON.PSL ---
Psychology Consult Consult Specialty:: Psychology History Provided By: Patient Limitations to Obtaining History: No Limitations Current Medications: Active Medications Acetaminophen (Tylenol -) 650 mg PO Q4H PRN PRN Reason: PAIN SCALE 1-5 Last Admin: 02/15/18 12:02 Dose: 650 mg Albuterol Sulfate (Ventolin 0.083% Nebulizer Soln -) 1 amp NEB Q4H PRN PRN Reason: SHORT OF BREATH/WHEEZING Alprazolam (Xanax -) 0.5 mg PO Q8H PRN PRN Reason: ANXIETY Last Admin: 02/17/18 09:59 Dose: 0.5 mg Arformoterol Tartrate (Brovana (Restricted To Pulmonology/Resp) -) 1 amp NEB RBID [facility] Last Admin: 02/17/18 07:40 Dose: 1 amp Aspirin (Asa -) 81 mg PO DAILY [facility] Last Admin: 02/17/18 09:59 Dose: 81 mg Ferrous Sulfate (Feosol -) 325 mg PO BID [facility] Last Admin: 02/17/18 09:59 Dose: 325 mg Furosemide (Lasix -) 20 mg PO Q2D@1000 [facility] Last Admin: 02/17/18 09:59 Dose: 20 mg Heparin Sodium (Porcine) (Heparin -) 5,000 unit SQ TID [facility] Last Admin: 02/17/18 15:34 Dose: Not Given Ceftriaxone Sodium 1 gm/ (Dextrose) 50 mls @ 100 mls/hr IVPB DAILY [facility]; Protocol Last Admin: 02/17/18 09:58 Dose: 100 mls/hr Magnesium Hydroxide (Milk Of Magnesia -) 30 ml PO DAILY PRN PRN Reason: CONSTIPATION Last Admin: 02/16/18 22:18 Dose: 30 ml Methylprednisolone Sodium Succinate (Solu-Medrol -) 30 mg IVPUSH BID [facility] Last Admin: 02/17/18 10:59 Dose: Not Given Mometasone Furoate (Asmanex 220mcg -) 1 puff IH [facility] Last Admin: 02/16/18 22:18 Dose: 1 puff Polyethylene Glycol (Miralax (For Daily Use) -) 17 gm PO DAILY PRN PRN Reason: CONSTIPATION Last Admin: 02/15/18 22:02 Dose: 17 gm Rosuvastatin Calcium (Crestor -) 20 mg PO [facility] Last Admin: 02/16/18 22:18 Dose: 20 mg Senna (Senna -) 2 tab PO HS PRN PRN Reason: CONSTIPATION Tamsulosin HCl (Flomax -) 0.4 mg PO DAILY@0830 [facility] Last Admin: 02/17/18 09:59 Dose: 0.4 mg Tiotropium [place] (Spiriva Respimat) 2 puff IH DAILY [facility] Last Admin: 02/17/18 09:59 Dose: 2 puff Allergies: Allergies Allergy/AdvReac Type Severity Reaction Status Date / Time moxifloxacin HCl Allergy Severe Verified 02/13/18 00:56 [From Avelox] aclidinium bromide Allergy Verified 02/13/18 00:56 [From Tudorza Pressair] shellfish derived Allergy Verified 02/13/18 00:56 Current Medical Exam-Psy Attention: Alert Orientation: Time, Person, Place Expressive: Talkative Receptive: Age Appropriate Comprehension of Spoken Words Hallucinations: Absent Thought Process: Intact Depression: Moderate Hopelessness: Yes Loss of Interest: No Anxiety Level: Moderate Danger to Self and Others: No Sleep: Well Appetite: Good [employer] Se[employer] Intact: Yes Support System: Family Leisure activities: With friends Other Findings/Remarks: The patient's memory was assessed via asking what he had for breakfast and lunch. He had no difficulty with this. Problem List - Problem (1) Depressive disorder due to another medical condition with depressive features Code(s): F06.31 - MOOD DISORDER DUE TO KNOWN PHYSIOL COND W DEPRESSV FEATURES Assessment/Plan The patient is a very engaging gentleman who appeared to need to engage in conversation. He was polite and pleasant. Without any prompting he shared his family history and concerns. The patient went on to elaborate about the natural products he has been using for a variety of health benefits. His pain level was a 4 when he is sitting upright but is eliminated upon returning to a supine position. Depression and anxiety were present and appear to be related to his medical conditions as they impact on his quality of life. It is recommended that he receive psychotherapy encompassing hypnosis, relaxation exercises with deep breathing, HRV biofeedback to monitor progress, and family counseling. The patient indicated a desire to continue with this provider on an outpatient basis upon discharge home. Thank you for your referral.
[2018-02-17] MEDS: ROSUVASTATIN CA 20 MG TABLET (FP) PO SCH (21:04)
[2018-02-17] MEDS: MOMETASONE FUROATE 220 MCG/IH INHALER IH SCH (21:05)
[2018-02-18] MEDS: HEPARIN NA (PORCINE) 5,000 UNITS/ML 1ML VIAL SQ SCH ×3 (06:06→22:23)
[2018-02-18 07:45] LABS: CHLORIDE 97 mmol/L (98-107); POTASSIUM 4.1 mmol/L (3.5-5.1); SODIUM 138 mmol/L (136-145)
[2018-02-18 07:57] LABS: ANION GAP 5 MMOL/L (8-16); BLOOD UREA NITROGEN 25 mg/dL (7-18); CALCIUM 8.1 mg/dL (8.5-10.1); CO2 36 mmol/L (21-32); CREATININE 0.8 mg/dL (0.55-1.3); GLUCOSE,RANDOM 229 mg/dL (74-106)
[2018-02-18] MEDS: TAMSULOSIN HCL 0.4 MG CAP.ER.24H (FP) PO SCH (08:20)
[2018-02-18] MEDS: ARFORMOTEROL TARTRATE 15 MCG/2 ML VIAL NEB SCH ×2 (09:00→20:06)
[2018-02-18] MEDS ORDERED: PT OWN MED DRAWER 7, Y5N ONE (09:23)
[2018-02-18] MEDS ORDERED: DEXTROSE 5%-WATER - 50 ML IVPB ONE (09:23)
[2018-02-18] MEDS ORDERED: cefTRIAXone SODIUM 1 GM VIAL ONE (09:23)
[2018-02-18] MEDS: methylPREDNISolone NA SUCC 40 MG/1 ML VIAL IVPUSH SCH ×2 (09:32→22:22)
[2018-02-18] MEDS: FERROUS SO4 325 MG TABLET (FP) PO SCH ×2 (09:32→22:22)
[2018-02-18] MEDS: ASPIRIN 81 MG CHEWABLE TABLETS PO SCH (09:32)
[2018-02-18] MEDS: CEFTRIAXONE 1 GM in DEXTROSE 5%-WATER - 50 ML IVPB SCH (09:32)
[2018-02-18] MEDS: ACETAMINOPHEN 325 MG TABLET (FP) PO PRN (09:36)
[2018-02-18] MEDS: TIOTROPIUM BROMIDE 2.5 MCG (SPIRIVA) RESPIMAT INHALER IH SCH (09:46)
--- NOTE | 2018-02-18 09:49 | PN ---
Progress Note, Physician Chief Complaint: AWAKE ALERT IN ISOLATION ROOM NO CHEST PAIN +SOB ON NC - Current Medication List Current Medications: Active Medications Acetaminophen (Tylenol -) 650 mg PO Q4H PRN PRN Reason: PAIN SCALE 1-5 Last Admin: 02/18/18 09:36 Dose: 650 mg Albuterol Sulfate (Ventolin 0.083% Nebulizer Soln -) 1 amp NEB Q4H PRN PRN Reason: SHORT OF BREATH/WHEEZING Alprazolam (Xanax -) 0.5 mg PO Q8H PRN PRN Reason: ANXIETY Last Admin: 02/17/18 21:04 Dose: 0.5 mg Arformoterol Tartrate (Brovana (Restricted To Pulmonology/Resp) -) 1 amp NEB RBID [facility] Last Admin: 02/18/18 09:00 Dose: 1 amp Aspirin (Asa -) 81 mg PO DAILY [facility] Last Admin: 02/18/18 09:32 Dose: 81 mg Ferrous Sulfate (Feosol -) 325 mg PO BID [facility] Last Admin: 02/18/18 09:32 Dose: 325 mg Furosemide (Lasix -) 20 mg PO Q2D@1000 [facility] Last Admin: 02/17/18 09:59 Dose: 20 mg Heparin Sodium (Porcine) (Heparin -) 5,000 unit SQ TID [facility] Last Admin: 02/18/18 06:06 Dose: Not Given Ceftriaxone Sodium 1 gm/ (Dextrose) 50 mls @ 100 mls/hr IVPB DAILY [facility]; Protocol Last Admin: 02/18/18 09:32 Dose: 100 mls/hr Magnesium Hydroxide (Milk Of Magnesia -) 30 ml PO DAILY PRN PRN Reason: CONSTIPATION Last Admin: 02/16/18 22:18 Dose: 30 ml Methylprednisolone Sodium Succinate (Solu-Medrol -) 30 mg IVPUSH BID [facility] Last Admin: 02/18/18 09:32 Dose: 30 mg Mometasone Furoate (Asmanex 220mcg -) 1 puff IH [facility] Last Admin: 02/17/18 21:05 Dose: 1 puff Polyethylene Glycol (Miralax (For Daily Use) -) 17 gm PO DAILY PRN PRN Reason: CONSTIPATION Last Admin: 02/15/18 22:02 Dose: 17 gm Rosuvastatin Calcium (Crestor -) 20 mg PO [facility] Last Admin: 02/17/18 21:04 Dose: 20 mg Senna (Senna -) 2 tab PO HS PRN PRN Reason: CONSTIPATION Tamsulosin HCl (Flomax -) 0.4 mg PO DAILY@0830 [facility] Last Admin: 02/18/18 08:20 Dose: 0.4 mg Tiotropium [place] (Spiriva Respimat) 2 puff IH DAILY [facility] Last Admin: 02/18/18 09:46 Dose: 2 puff - Objective Vital Signs: Vital Signs Temperature 97.8 F 02/18/18 05:55 Pulse Rate 67 02/18/18 05:55 Respiratory Rate 20 02/18/18 05:55 Blood Pressure 130/56 02/18/18 05:55 O2 Sat by Pulse Oximetry (%) 98 02/17/18 21:00 Constitutional: Yes: Mild Distress Eyes: Yes: WNL HENT: Yes: WNL Neck: Yes: WNL Cardiovascular: Yes: WNL Respiratory: Yes: On Nasal O2, SOB Gastrointestinal: Yes: WNL Genitourinary: Yes: WNL Musculoskeletal: Yes: Muscle Weakness Extremities: Yes: WNL Edema: No Peripheral Pulses WNL: Yes Integumentary: Yes: Rash Wound/Incision: Yes: Dressing Dry and Intact Neurological: Yes: Pre-Existing Deficit ...Motor Strength: LLE, RLE Psychiatric: Yes: Other Labs: CBC, BMP 02/17/18 06:30 02/18/18 06:30 Problem List - Problems (1) COPD exacerbation Code(s): J44.1 - CHRONIC OBSTRUCTIVE PULMONARY DISEASE W (ACUTE) EXACERBATION (2) Acute and chronic respiratory failure Code(s): J96.20 - ACUTE AND CHR RESP FAILURE, UNSP W HYPOXIA OR HYPERCAPNIA Qualifiers: Respiratory failure complication: hypoxia and hypercapnia Qualified Code(s) : J96.21 - Acute and chronic respiratory failure with hypoxia; J96.22 - Acute and chronic respiratory failure with hypercapnia (3) Anemia Code(s): D64.9 - ANEMIA, UNSPECIFIED Qualifiers: Anemia type: unspecified type Qualified Code(s): D64.9 - Anemia, unspecified Assessment/Plan HYPERKALEMIA WILL GIVE KAYEXALATE NOW REPEAT LEVELS ARE BETTER RESP SUPPORT CONTINUED NEBS IV CEFTRIAXONE PER ID ADD AZITHRO IF ABLE TO SWALLOW TAB PULM AND ID EVAL OOB TO CHAIR DVT PROPHYLAXIS O2 via NC as tolerated NIPPV support QHS and PRN Medrol: Can start to taper tomorrow if stable Brovana Spiriva Asmanex No smoking Mr Veloz would benefit from outpatient therapy with a Triology device due to chronic respiratory failure and advancement of his COPD along with lack of gas exchange, his baseline PCO2 is now 60 mmHg. He requires ventilation via a non- invasive ventilator as BiLevel is no longer effective in treatment to effectively decrease his work of breathing and to improve his pulmonary status and prevent interruption or failure of respiratory support.
--- NOTE | 2018-02-18 14:19 | PN ---
Progress Note (short form) - Note Progress Note: PULMONARY States breathing is improving. Less cough and wheezing. Vital Signs Period Temp Pulse Resp BP Sys/Morgan Pulse Ox Last 24 Hr 97.5 F-97.9 F 67-91 20-20 123-141/56-78 98-98 Gen: mildly tachypneic with speaking Heart: RRR Lung: distant breath sounds Abd: soft, nontender Ext: no edema CBC, BMP 02/17/18 06:30 02/18/18 06:30 Active Medications Acetaminophen (Tylenol -) 650 mg PO Q4H PRN PRN Reason: PAIN SCALE 1-5 Last Admin: 02/18/18 09:36 Dose: 650 mg Albuterol Sulfate (Ventolin 0.083% Nebulizer Soln -) 1 amp NEB Q4H PRN PRN Reason: SHORT OF BREATH/WHEEZING Alprazolam (Xanax -) 0.5 mg PO Q8H PRN PRN Reason: ANXIETY Last Admin: 02/17/18 21:04 Dose: 0.5 mg Arformoterol Tartrate (Brovana (Restricted To Pulmonology/Resp) -) 1 amp NEB RBID [facility] Last Admin: 02/18/18 09:00 Dose: 1 amp Aspirin (Asa -) 81 mg PO DAILY [facility] Last Admin: 02/18/18 09:32 Dose: 81 mg Ferrous Sulfate (Feosol -) 325 mg PO BID [facility] Last Admin: 02/18/18 09:32 Dose: 325 mg Furosemide (Lasix -) 20 mg PO Q2D@1000 [facility] Last Admin: 02/17/18 09:59 Dose: 20 mg Heparin Sodium (Porcine) (Heparin -) 5,000 unit SQ TID [facility] Last Admin: 02/18/18 13:56 Dose: Not Given Ceftriaxone Sodium 1 gm/ (Dextrose) 50 mls @ 100 mls/hr IVPB DAILY [facility]; Protocol Last Admin: 02/18/18 09:32 Dose: 100 mls/hr Magnesium Hydroxide (Milk Of Magnesia -) 30 ml PO DAILY PRN PRN Reason: CONSTIPATION Last Admin: 02/16/18 22:18 Dose: 30 ml Methylprednisolone Sodium Succinate (Solu-Medrol -) 30 mg IVPUSH BID [facility] Last Admin: 02/18/18 09:32 Dose: 30 mg Mometasone Furoate (Asmanex 220mcg -) 1 puff IH HS [facility] Last Admin: 02/17/18 21:05 Dose: 1 puff Polyethylene Glycol (Miralax (For Daily Use) -) 17 gm PO DAILY PRN PRN Reason: CONSTIPATION Last Admin: 02/15/18 22:02 Dose: 17 gm Rosuvastatin Calcium (Crestor -) 20 mg PO HS [facility] Last Admin: 02/17/18 21:04 Dose: 20 mg Senna (Senna -) 2 tab PO HS PRN PRN Reason: CONSTIPATION Tamsulosin HCl (Flomax -) 0.4 mg PO DAILY@0830 [facility] Last Admin: 02/18/18 08:20 Dose: 0.4 mg Tiotropium [place] (Spiriva Respimat) 2 puff IH DAILY [facility] Last Admin: 02/18/18 09:46 Dose: 2 puff A/P Acute on Chronic Hypoxic and Hypercapneic Respiratory Failure Acute COPD Exacerbation LV Diastolic Dysfunction Pulmonary HTN CAD Hyperlipidemia - complete empiric antibiotics - can change steroids to PO prednisone and taper as outpt - inhaled bronchodilators - O2 to keep SpO2 >90% - DVT prophylaxis
[2018-02-18] MEDS: ROSUVASTATIN CA 20 MG TABLET (FP) PO SCH (22:22)
[2018-02-18] MEDS: MOMETASONE FUROATE 220 MCG/IH INHALER IH SCH (22:25)
[2018-02-18] MEDS: ALPRAZolam 0.25 MG TABLET PO PRN (22:27)
[2018-02-19] MEDS: HEPARIN NA (PORCINE) 5,000 UNITS/ML 1ML VIAL SQ SCH ×4 (06:17→22:19)
[2018-02-19] MEDS: ARFORMOTEROL TARTRATE 15 MCG/2 ML VIAL NEB SCH ×2 (07:25→20:30)
[2018-02-19] MEDS ORDERED: PT OWN MED DRAWER 7, Y5N ONE (09:28)
[2018-02-19] MEDS ORDERED: DEXTROSE 5%-WATER - 50 ML IVPB ONE (09:28)
[2018-02-19] MEDS ORDERED: cefTRIAXone SODIUM 1 GM VIAL ONE (09:28)
[2018-02-19] MEDS: TAMSULOSIN HCL 0.4 MG CAP.ER.24H (FP) PO SCH (09:30)
[2018-02-19] MEDS: CEFTRIAXONE 1 GM in DEXTROSE 5%-WATER - 50 ML IVPB SCH (09:34)
[2018-02-19] MEDS: TIOTROPIUM BROMIDE 2.5 MCG (SPIRIVA) RESPIMAT INHALER IH SCH (09:34)
[2018-02-19] MEDS: methylPREDNISolone NA SUCC 40 MG/1 ML VIAL IVPUSH SCH ×2 (09:34→22:08)
[2018-02-19] MEDS: FERROUS SO4 325 MG TABLET (FP) PO SCH ×2 (09:35→22:07)
[2018-02-19] MEDS: FUROSEMIDE 20 MG TABLET (FP) PO SCH (09:35)
[2018-02-19] MEDS: ASPIRIN 81 MG CHEWABLE TABLETS PO SCH (09:35)
[2018-02-19] MEDS: ALPRAZolam 0.25 MG TABLET PO PRN (09:48)
--- NOTE | 2018-02-19 12:32 | PN ---
Progress Note, Physician Chief Complaint: AWAKE ALERT FEELING BETTER POTASSIUM LEVELS NORMAL - Current Medication List Current Medications: Active Medications Acetaminophen (Tylenol -) 650 mg PO Q4H PRN PRN Reason: PAIN SCALE 1-5 Last Admin: 02/18/18 09:36 Dose: 650 mg Albuterol Sulfate (Ventolin 0.083% Nebulizer Soln -) 1 amp NEB Q4H PRN PRN Reason: SHORT OF BREATH/WHEEZING Alprazolam (Xanax -) 0.5 mg PO Q8H PRN PRN Reason: ANXIETY Last Admin: 02/19/18 09:48 Dose: 0.5 mg Arformoterol Tartrate (Brovana (Restricted To Pulmonology/Resp) -) 1 amp NEB RBID [facility] Last Admin: 02/19/18 07:25 Dose: 1 amp Aspirin (Asa -) 81 mg PO DAILY [facility] Last Admin: 02/19/18 09:35 Dose: 81 mg Ferrous Sulfate (Feosol -) 325 mg PO BID [facility] Last Admin: 02/19/18 09:35 Dose: 325 mg Furosemide (Lasix -) 20 mg PO Q2D@1000 [facility] Last Admin: 02/19/18 09:35 Dose: 20 mg Heparin Sodium (Porcine) (Heparin -) 5,000 unit SQ TID [facility] Last Admin: 02/19/18 06:17 Dose: Not Given Ceftriaxone Sodium 1 gm/ (Dextrose) 50 mls @ 100 mls/hr IVPB DAILY [facility]; Protocol Last Admin: 02/19/18 09:34 Dose: 100 mls/hr Magnesium Hydroxide (Milk Of Magnesia -) 30 ml PO DAILY PRN PRN Reason: CONSTIPATION Last Admin: 02/16/18 22:18 Dose: 30 ml Methylprednisolone Sodium Succinate (Solu-Medrol -) 30 mg IVPUSH BID [facility] Last Admin: 02/19/18 09:34 Dose: 30 mg Mometasone Furoate (Asmanex 220mcg -) 1 puff IH [facility] Last Admin: 02/18/18 22:25 Dose: 1 puff Polyethylene Glycol (Miralax (For Daily Use) -) 17 gm PO DAILY PRN PRN Reason: CONSTIPATION Last Admin: 02/15/18 22:02 Dose: 17 gm Rosuvastatin Calcium (Crestor -) 20 mg PO [facility] Last Admin: 09/20/18 22:22 Dose: 20 mg Senna (Senna -) 2 tab PO HS PRN PRN Reason: CONSTIPATION Tamsulosin HCl (Flomax -) 0.4 mg PO DAILY@0830 [facility] Last Admin: 02/19/18 09:30 Dose: 0.4 mg Tiotropium [place] (Spiriva Respimat) 2 puff IH DAILY [facility] Last Admin: 02/19/18 09:34 Dose: 2 puff - Objective Vital Signs: Vital Signs Temperature 97.9 F 02/19/18 09:33 Pulse Rate 67 02/19/18 09:33 Respiratory Rate 02/19/18 09:33 Blood Pressure 137/71 02/19/18 09:33 O2 Sat by Pulse Oximetry (%) 100 02/19/18 09:00 Constitutional: Yes: Mild Distress Cardiovascular: Yes: WNL Respiratory: Yes: Cough, Diminished, On Nasal O2 Gastrointestinal: Yes: WNL Genitourinary: Yes: WNL Musculoskeletal: No: Muscle Weakness Extremities: No: WNL Edema: No Peripheral Pulses WNL: Yes Integumentary: Yes: WNL Wound/Incision: Yes: Clean/Dry Neurological: Yes: WNL ...Motor Strength: WNL Psychiatric: Yes: WNL Labs: CBC, BMP 02/17/18 06:30 02/18/18 06:30 Problem List - Problems (1) COPD exacerbation Code(s): J44.1 - CHRONIC OBSTRUCTIVE PULMONARY DISEASE W (ACUTE) EXACERBATION (2) Acute and chronic respiratory failure Code(s): J96.20 - ACUTE AND CHR RESP FAILURE, UNSP W HYPOXIA OR HYPERCAPNIA Qualifiers: Respiratory failure complication: hypoxia and hypercapnia Qualified Code(s) : J96.21 - Acute and chronic respiratory failure with hypoxia; J96.22 - Acute and chronic respiratory failure with hypercapnia (3) Anemia Code(s): D64.9 - ANEMIA, UNSPECIFIED Qualifiers: Anemia type: unspecified type Qualified Code(s): D64.9 - Anemia, unspecified Assessment/Plan CONTINUE ABX/STEROIDS NEBS CARDIO EVAL REQUESTED BY PATIENT CHECK POTASSIUM LEVEL
--- NOTE | 2018-02-19 12:43 | CON.CARD ---
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 He denies fever, chills, chest pain, orthopnea, PND or LE edema, sxs improving with treatment for COPD flare. - History Source History Provided By: Patient - Past Medical History Cardio/Vascular: Yes: CAD, CHF, HTN, Hyperlipdemia, Pulmonary Hypertension Pulmonary: Yes: COPD (home oxygen), Previously Intubated (intubated one time several years ago for respiratory failure), Other (Interstitial lung disease) Gastrointestinal: Yes: GERD, Hiatal Hernia Renal/: Yes: Renal Calculi, UTI Additional Medical History: Inguinal hernia. 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 History of Recent Travel: No Home Medications - Allergies Allergies/Adverse Reactions: Allergies Allergy/AdvReac Type Severity Reaction Status Date / Time moxifloxacin HCl Allergy Severe Verified 02/13/18 00:56 [From Avelox] aclidinium bromide Allergy Verified 02/13/18 00:56 [From Tudorza Pressair] shellfish derived Allergy Verified 02/13/18 00:56 - Home Medications Home Medications: Ambulatory Orders Albuterol Sulfate Inhaler - [Ventolin HFA Inhaler -] 2 inh PO Q4H 02/08/14 Arformoterol Tartrate [Brovana] 15 mcg IH BID 02/08/14 Aspirin [ASA -] 81 mg PO DAILY 02/08/14 Tamsulosin HCl [Flomax -] 0.4 mg PO DAILY 02/08/14 Tiotropium [place] [Spiriva] 1 inh PO DAILY 02/08/14 Beclomethasone Dipropionate [Qvar] 8.7 gm IH DAILY 01/09/16 Alprazolam [Xanax] 0.25 mg PO BID #20 tablet MDD 2 01/18/16 Atorvastatin Ca [Lipitor] 10 mg PO DAILY 08/30/16 Polyethylene Glycol 3350 [Miralax 119 gm Btl -] 17 gm PO DAILY PRN #1 bottle 10/15 Ferrous Sulfate [Feosol] 325 mg PO BID ud 05/06/17 Furosemide [Lasix -] 20 mg PO DAILY tablet 05/06/17 Review of Systems - Review of Systems Constitutional: reports: No Symptoms Eyes: reports: No Symptoms HENT: reports: No Symptoms Neck: reports: No Symptoms Cardiovascular: reports: Shortness of Breath Respiratory: reports: Cough, SOB on Exertion, Wheezing Gastrointestinal: reports: No Symptoms Genitourinary: reports: No Symptoms Breasts: reports: No Symptoms Reported Musculoskeletal: reports: No Symptoms Integumentary: reports: No Symptoms Neurological: reports: No Symptoms Endocrine: reports: No Symptoms Hematology/Lymphatic: reports: No Symptoms Vital Signs: Vital Signs Temperature 97.9 F 02/19/18 09:33 Pulse Rate 67 02/19/18 09:33 Respiratory Rate 20 02/19/18 09:33 Blood Pressure 137/71 02/19/18 09:33 O2 Sat by Pulse Oximetry (%) 100 02/19/18 09:00 Constitutional: Yes: No Distress, Calm, Thin Neck: Yes: Supple Respiratory: Yes: Regular, Diminished, On Nasal O2, SOB on Exertion Gastrointestinal: Yes: Normal Bowel Sounds, Soft Cardiovascular: Yes: Regular Rate and Rhythm JVD: No Carotid Bruit: No Heart Sounds: Yes: S1, S2 Murmur: Yes: Systolic Murmur, Grade 1 Edema: No - Other Data Labs, Other Data: CBC, BMP 02/17/18 06:30 02/18/18 06:30 ST @ 117 RBBB LPFB Ejection Fraction %: LVEF > or = 40 % Imaging - Results Chest X-ray: Report Reviewed (CXR: chronic changes with no acute process.) Problem List - Problems (1) Pulmonary hypertension Code(s): I27.20 - PULMONARY HYPERTENSION, UNSPECIFIED (2) Acute and chronic respiratory failure with hypercapnia Code(s): J96.22 - ACUTE AND CHRONIC RESPIRATORY FAILURE WITH HYPERCAPNIA (3) COPD exacerbation Code(s): J44.1 - CHRONIC OBSTRUCTIVE PULMONARY DISEASE W (ACUTE) EXACERBATION (4) Arteriosclerotic heart disease (ASHD) Code(s): I25.10 - ATHSCL HEART DISEASE OF [place] CORONARY ARTERY W/O ANG PCTRS (5) COPD exacerbation Code(s): J44.1 - CHRONIC OBSTRUCTIVE PULMONARY DISEASE W (ACUTE) EXACERBATION (6) Diastolic dysfunction Code(s): I51.9 - HEART DISEASE, UNSPECIFIED (7) Hyperlipidemia Code(s): E78.5 - HYPERLIPIDEMIA, UNSPECIFIED Qualifiers: Hyperlipidemia type: pure hypercholesterolemia Qualified Code(s): E78.00 - Pure hypercholesterolemia, unspecified; E78.0 - Pure hypercholesterolemia (8) Mycobacteria, atypical Code(s): A31.9 - MYCOBACTERIAL INFECTION, UNSPECIFIED Assessment/Plan 1. Acute on Chronic Hypoxic and Hypercapneic Respiratory Failure referable to 2. Acute exacerbation of advanced chronic obstructive pulmonary disease on home oxygen therapy with Pulmonary HTN, resolving 3. CAD non-obstructive coronary artery disease angina pectoris, stable 4. Diastolic LV dysfunction with class 0-I NYHA classification LV failure, compensated/euvolemic 5. HTN 6. Hypercholesterolemia 7. Anemia PLAN: 1. Complete empiric antibiotics course as per ID 2. IV steroid taper, bronchodilators, O2 to keep SpO2 >90% as per the pulmonary team 3. Continue ASA 81 qd with close monitoring of CBC/hemoglobin 4. Continue Crestor 20 qhs and Lasix 20 qod 5. Addition of ACEI or ARBS hemodynamics permitting and not contraindicated 6. DVT prophylaxis 7. Thank you for consultative opportunity
--- NOTE | 2018-02-19 14:51 | PN ---
Progress Note, Physician History of Present Illness: PULMONARY ALERT,SITTING UP IN BED,COMFORTABLE,-RESP DISTRESS - Current Medication List Current Medications: Active Medications Acetaminophen (Tylenol -) 650 mg PO Q4H PRN PRN Reason: PAIN SCALE 1-5 Last Admin: 02/18/18 09:36 Dose: 650 mg Albuterol Sulfate (Ventolin 0.083% Nebulizer Soln -) 1 amp NEB Q4H PRN PRN Reason: SHORT OF BREATH/WHEEZING Alprazolam (Xanax -) 0.5 mg PO Q8H PRN PRN Reason: ANXIETY Last Admin: 02/19/18 09:48 Dose: 0.5 mg Arformoterol Tartrate (Brovana (Restricted To Pulmonology/Resp) -) 1 amp NEB RBID [facility] Last Admin: 02/19/18 07:25 Dose: 1 amp Aspirin (Asa -) 81 mg PO DAILY [facility] Last Admin: 02/19/18 09:35 Dose: 81 mg Ferrous Sulfate (Feosol -) 325 mg PO BID [facility] Last Admin: 02/19/18 09:35 Dose: 325 mg Furosemide (Lasix -) 20 mg PO Q2D@1000 [facility] Last Admin: 02/19/18 09:35 Dose: 20 mg Heparin Sodium (Porcine) (Heparin -) 5,000 unit SQ TID [facility] Last Admin: 02/19/18 06:17 Dose: Not Given Ceftriaxone Sodium 1 gm/ (Dextrose) 50 mls @ 100 mls/hr IVPB DAILY [facility]; Protocol Last Admin: 02/19/18 09:34 Dose: 100 mls/hr Magnesium Hydroxide (Milk Of Magnesia -) 30 ml PO DAILY PRN PRN Reason: CONSTIPATION Last Admin: 02/16/18 22:18 Dose: 30 ml Methylprednisolone Sodium Succinate (Solu-Medrol -) 30 mg IVPUSH BID [facility] Last Admin: 02/19/18 09:34 Dose: 30 mg Mometasone Furoate (Asmanex 220mcg -) 1 puff IH [facility] Last Admin: 02/18/18 22:25 Dose: 1 puff Polyethylene Glycol (Miralax (For Daily Use) -) 17 gm PO DAILY PRN PRN Reason: CONSTIPATION Last Admin: 02/15/18 22:02 Dose: 17 gm Rosuvastatin Calcium (Crestor -) 20 mg PO [facility] Last Admin: 02/18/18 22:22 Dose: 20 mg Senna (Senna -) 2 tab PO HS PRN PRN Reason: CONSTIPATION Tamsulosin HCl (Flomax -) 0.4 mg PO DAILY@0830 [facility] Last Admin: 02/19/18 09:30 Dose: 0.4 mg Tiotropium [place] (Spiriva Respimat) 2 puff IH DAILY [facility] Last Admin: 02/19/18 09:34 Dose: 2 puff - Objective Vital Signs: Vital Signs Temperature 97.9 F 02/19/18 09:33 Pulse Rate 67 02/19/18 09:33 Respiratory Rate 20 02/19/18 09:33 Blood Pressure 137/71 02/19/18 09:33 O2 Sat by Pulse Oximetry (%) 100 02/19/18 09:00 Constitutional: Yes: Well Nourished, Calm Eyes: Yes: WNL HENT: Yes: WNL Neck: Yes: WNL Cardiovascular: Yes: Regular Rate and Rhythm, S1, S2 Respiratory: Yes: Diminished Gastrointestinal: Yes: Normal Bowel Sounds, Soft Extremities: Yes: WNL Edema: No Labs: CBC, BMP Problem List - Problems (1) Acute and chronic respiratory failure with hypercapnia Code(s): J96.22 - ACUTE AND CHRONIC RESPIRATORY FAILURE WITH HYPERCAPNIA (2) COPD exacerbation Code(s): J44.1 - CHRONIC OBSTRUCTIVE PULMONARY DISEASE W (ACUTE) EXACERBATION (3) Acute and chronic respiratory failure Code(s): J96.20 - ACUTE AND CHR RESP FAILURE, UNSP W HYPOXIA OR HYPERCAPNIA Qualifiers: Respiratory failure complication: hypoxia and hypercapnia Qualified Code(s) : J96.21 - Acute and chronic respiratory failure with hypoxia; J96.22 - Acute and chronic respiratory failure with hypercapnia (4) COPD exacerbation Code(s): J44.1 - CHRONIC OBSTRUCTIVE PULMONARY DISEASE W (ACUTE) EXACERBATION (5) Hoarseness Code(s): R49.0 - DYSPHONIA (6) Arteriosclerotic heart disease (ASHD) Code(s): I25.10 - ATHSCL HEART DISEASE OF [place] CORONARY ARTERY W/O ANG PCTRS (7) Diastolic dysfunction Code(s): I51.9 - HEART DISEASE, UNSPECIFIED Assessment/Plan A/P Acute on Chronic Hypoxic and Hypercapneic Respiratory Failure improved Acute COPD Exacerbation improved LV Diastolic Dysfunction Pulmonary HTN CAD Hyperlipidemia - complete empiric antibiotics - prednisone and taper as outpt - inhaled bronchodilators - O2 to keep SpO2 >90% - DVT prophylaxis DR ARIAS
[2018-02-19 15:58] VITALS: BMI 20.9
[2018-02-19] MEDS: ROSUVASTATIN CA 20 MG TABLET (FP) PO SCH (22:07)
[2018-02-19] MEDS: MOMETASONE FUROATE 220 MCG/IH INHALER IH SCH (22:10)
[2018-02-20] MEDS ORDERED: CEFTRIAXONE 1 GM in DEXTROSE 5%-WATER - 50 ML IVPB ONE (08:16)
--- NOTE | 2018-02-20 08:21 | PN ---
Progress Note, Physician Chief Complaint: COPD exacerbation History of Present Illness: NAD at his baseline breathing seen by pulmonary and cardiology completes 7 days of abx today on IV solumedrol tapering dose - Current Medication List Current Medications: Active Medications Acetaminophen (Tylenol -) 650 mg PO Q4H PRN PRN Reason: PAIN SCALE 1-5 Last Admin: 02/18/18 09:36 Dose: 650 mg Albuterol Sulfate (Ventolin 0.083% Nebulizer Soln -) 1 amp NEB Q4H PRN PRN Reason: SHORT OF BREATH/WHEEZING Arformoterol Tartrate (Brovana (Restricted To Pulmonology/Resp) -) 1 amp NEB RBID [facility] Last Admin: 02/19/18 20:30 Dose: 1 amp Aspirin (Asa -) 81 mg PO DAILY [facility] Last Admin: 02/19/18 09:35 Dose: 81 mg Ferrous Sulfate (Feosol -) 325 mg PO BID [facility] Last Admin: 02/19/18 22:07 Dose: 325 mg Furosemide (Lasix -) 20 mg PO Q2D@1000 [facility] Last Admin: 02/19/18 09:35 Dose: 20 mg Ceftriaxone Sodium 1 gm/ (Dextrose) 100 mls @ 200 mls/hr IVPB ONCE ONE; Protocol Stop: 02/20/18 08:45 Magnesium Hydroxide (Milk Of Magnesia -) 30 ml PO DAILY PRN PRN Reason: CONSTIPATION Last Admin: 02/16/18 22:18 Dose: 30 ml Methylprednisolone Sodium Succinate (Solu-Medrol -) 30 mg IVPUSH BID [facility] Last Admin: 02/19/18 22:08 Dose: 30 mg Mometasone Furoate (Asmanex 220mcg -) 1 puff IH [facility] Last Admin: 02/19/18 22:10 Dose: 1 puff Polyethylene Glycol (Miralax (For Daily Use) -) 17 gm PO DAILY PRN PRN Reason: CONSTIPATION Last Admin: 02/15/18 22:02 Dose: 17 gm Rosuvastatin Calcium (Crestor -) 20 mg PO HS [facility] Last Admin: 02/19/18 22:07 Dose: 20 mg Senna (Senna -) 2 tab PO HS PRN PRN Reason: CONSTIPATION Tamsulosin HCl (Flomax -) 0.4 mg PO DAILY@0830 [facility] Last Admin: 02/19/18 09:30 Dose: 0.4 mg Tiotropium [place] (Spiriva Respimat) 2 puff IH DAILY [facility] Last Admin: 02/19/18 09:34 Dose: 2 puff - Objective Vital Signs: Vital Signs Temperature 97.8 F 02/20/18 06:00 Pulse Rate 55 L 02/20/18 06:00 Respiratory Rate 18 02/20/18 06:00 Blood Pressure 105/41 L 02/20/18 06:00 O2 Sat by Pulse Oximetry (%) 100 02/19/18 20:41 Constitutional: Yes: Well Nourished, No Distress, Calm Cardiovascular: Yes: Regular Rate and Rhythm Respiratory: Yes: Regular, Diminished, On Nasal O2 Gastrointestinal: Yes: Normal Bowel Sounds, Soft Musculoskeletal: Yes: WNL Extremities: Yes: WNL Edema: No Peripheral Pulses WNL: Yes Neurological: Yes: Alert, Oriented Psychiatric: Yes: Alert, Oriented Labs: CBC, BMP 02/17/18 06:30 02/18/18 06:30 Problem List - Problems (1) COPD exacerbation Assessment/Plan: -completed 7 days of abx -on tapering solumedrol-> convert to po upon discharge today -nasal o2, O2 dependent at home -bronchodialtors -Continue Qvar upon discharge -f/u with pulmonary upon discharge Code(s): J44.1 - CHRONIC OBSTRUCTIVE PULMONARY DISEASE W (ACUTE) EXACERBATION (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
[2018-02-20] MEDS ORDERED: PT OWN MED DRAWER 7, Y5N ONE (08:44)
[2018-02-20] MEDS ORDERED: DEXTROSE 5%-WATER - 50 ML IVPB ONE (08:44)
[2018-02-20] MEDS ORDERED: cefTRIAXone SODIUM 1 GM VIAL ONE (08:44)
[2018-02-20] MEDS: ARFORMOTEROL TARTRATE 15 MCG/2 ML VIAL NEB SCH (08:49)
[2018-02-20] MEDS: ASPIRIN 81 MG CHEWABLE TABLETS PO SCH (09:01)
[2018-02-20] MEDS: FERROUS SO4 325 MG TABLET (FP) PO SCH (09:01)
[2018-02-20] MEDS: TAMSULOSIN HCL 0.4 MG CAP.ER.24H (FP) PO SCH (09:01)
[2018-02-20] MEDS: methylPREDNISolone NA SUCC 40 MG/1 ML VIAL IVPUSH SCH (09:02)
[2018-02-20] MEDS: TIOTROPIUM BROMIDE 2.5 MCG (SPIRIVA) RESPIMAT INHALER IH SCH (09:02)
[2018-02-20] MEDS ORDERED: ALPRAZolam 0.25 MG TABLET PO SCH (10:00)
[2018-02-20 10:49] LABS: ANION GAP 9 MMOL/L (8-16); BLOOD UREA NITROGEN 24 mg/dL (7-18); CALCIUM 8.8 mg/dL (8.5-10.1); CHLORIDE 97 mmol/L (98-107); CO2 35 mmol/L (21-32); CREATININE 0.6 mg/dL (0.55-1.3); GLUCOSE,RANDOM 138 mg/dL (74-106); POTASSIUM 4.3 mmol/L (3.5-5.1); SODIUM 140 mmol/L (136-145)
[2018-02-20 16:22] VITALS: BP 125/66; PULSE 70; TEMP 98.3
== END 2018-02-20 14:00 | disposition home or self-care (01) | DRG 190 ==
LOC: JER 00:42 → JERBED 04:00 → J7W 19:16
PROVIDERS: ADMIT Internal Medicine; ATTEND Family Medicine
PROC: 5A09357 Assistance with Respiratory Ventilation, Less than 24 Consecutive Hours, Continuous Positive Airway Pressure (ICD-10-PCS; principal; 2018-02-13)
DX: J44.1 Chronic obstructive pulmonary disease with (acute) exacerbation (principal); J96.21 Acute and chronic respiratory failure with hypoxia; J96.22 Acute and chronic respiratory failure with hypercapnia; J84.9 Interstitial pulmonary disease, unspecified; A31.9 Mycobacterial infection, unspecified; I50.30 Unspecified diastolic (congestive) heart failure; E78.5 Hyperlipidemia, unspecified; I27.20 Pulmonary hypertension, unspecified; I11.0 Hypertensive heart disease with heart failure; K21.9 Gastro-esophageal reflux disease without esophagitis; K44.9 Diaphragmatic hernia without obstruction or gangrene; I25.2 Old myocardial infarction; F41.8 Other specified anxiety disorders; I25.10 Atherosclerotic heart disease of native coronary artery without angina pectoris; D64.9 Anemia, unspecified; R91.1 Solitary pulmonary nodule; N40.0 Benign prostatic hyperplasia without lower urinary tract symptoms; J98.4 Other disorders of lung; F41.0 Panic disorder [episodic paroxysmal anxiety]; R49.0 Dysphonia; Z22.322 Carrier or suspected carrier of Methicillin resistant Staphylococcus aureus; Z87.891 Personal history of nicotine dependence; Z87.442 Personal history of urinary calculi; Z99.81 Dependence on supplemental oxygen
CPT/HCPCS: 36415; 36600; 71045-TC-FY; 80048; 80053; 82550; 82803; 83735; 83880; 84100; 84484; 85025; 85027; 87040; 93005; 93010; 94640; 94660; 99285-25; J0131; J1644; J7620

== ENCOUNTER 2018-03-06 00:48 | Emergency (ER) | payer BC, OTHER ==
--- NOTE | 2018-03-06 01:34 | PDOC ---
Attending Attestation - Resident Resident Name: Marco A Reeves - ED Attending Attestation I have performed the following: I have examined & evaluated the patient, The case was reviewed & discussed with the resident, I agree w/resident's findings & plan
[2018-03-06] MEDS ORDERED: ALBUTEROL SO4 0.083% IH SOL 2.5 MG/3 ML VIAL.NEB. NEB ONE ×2 (01:46→01:51)
[2018-03-06] MEDS ORDERED: ALBUTEROL SO4 2.5/IPRATROPIUM 0.5 INH SOL 3 ML VIAL.NEB. NEB ONE (01:48)
[2018-03-06 02:33] LABS: BASO % 0.4 % (0-2.0); HEMATOCRIT 41.8 % (35.4-49); HEMOGLOBIN 13.6 GM/dL (11.7-16.9); LYMPH % 2.6 % (8-40); MCH 29.9 pg (25.7-33.7); MCHC 32.5 g/dl (32.0-35.9); MEAN PLT VOLUME 8.5 fl (7.5-11.1); PLATELET COUNT 104 K/MM3 (134-434); RBC 4.54 M/mm3 (4.00-5.60); RDW 14.4 % (11.9-15.9); WHITE BLOOD COUNT 10.5 K/mm3 (4.0-10.0)
[2018-03-06 02:36] VITALS: TEMP 98.9; BMI 20.5
[2018-03-06 02:59] LABS: ALBUMIN 3.7 g/dl (3.4-5.0); ALK PHOS 93 U/L (45-117); ANION GAP 4 MMOL/L (8-16); BILIRUBIN,TOTAL 0.7 mg/dL (0.2-1); BLOOD UREA NITROGEN 16 mg/dL (7-18); CHLORIDE 94 mmol/L (98-107); CO2 41 mmol/L (21-32); CREATININE 0.8 mg/dL (0.55-1.3); GLUCOSE,RANDOM 93 mg/dL (74-106); N-TERMINAL BNP 63.9 pg/ml (5-125); POTASSIUM 4.2 mmol/L (3.5-5.1); SGOT/AST 18 U/L (15-37); SGPT/ALT 27 U/L (13-61); SODIUM 139 mmol/L (136-145); TOT PROT 7.2 g/dl (6.4-8.2)
--- NOTE | 2018-03-06 03:03 | PDOC ---
History of Present Illness - General Stated Complaint: TROUBLE BFREATHING Time Seen by Provider: 03/06/18 01:21 History Source: Patient, Spouse ( present for interview.), Old Records Exam Limitations: No Limitations - History of Present Illness Initial Comments: 67 y/o male presenting to [facility] ER via ambulance complaining of shortness of breath, fatigue, and temperature to 100.5 this evening. Symptoms have been acute on chronic for the past several weeks. was concerned this evening after she found him to be febrile and she was unable to properly fit his new CPAP machine, which arrived in the mail today. Pt has a h/o COPD, CHF, emphysema , and pulmonary hypertension. He was discharged from this facility on 2017 for similar symptoms. Concern was raised during this past admission to [facility] , however he was told by his transplant team (at [facility]) that this was not likely. He is awaiting a lung transplant. He is on day 2 of doxycycline and week 2 a prednisone taper. Endorses cough productive of greenish sputum, no color change. He was administered albuterol encoute by surgical scheduler. Pt has been intubated for respiratory failure intubated once in the past and required an ICU stay in 2008 for respiratory failure. PCP: Mariama Hide Or Skin Buffer: Rafi Talend Etl Developer: Aron Buckner Hx: - Former smoker Medical Hx: COPD on home oxygen, - Interstitial lung disease - Pulmonary hypertension - HTN - HLD - CHF, diastolic LV dysfunction - [place] - CAD - GERD - Hiatal hernia - Anemia, unspecified Surgical Hx: - Appendectomy - Hiatal hernia repair Past History - Past Medical History Allergies/Adverse Reactions: Allergies Allergy/AdvReac Type Severity Reaction Status Date / Time moxifloxacin HCl Allergy Severe Verified 03/06/18 01:32 [From Avelox] aclidinium bromide Allergy Verified 03/06/18 01:32 [From Tudorza Pressair] shellfish derived Allergy Verified 03/06/18 01:32 Home Medications: Ambulatory Orders Albuterol Sulfate Inhaler - [Ventolin HFA Inhaler -] 2 inh PO Q4H 02/08/14 Arformoterol Tartrate [Brovana] 15 mcg IH BID 02/08/14 Aspirin [ASA -] 81 mg PO DAILY 02/08/14 Tamsulosin HCl [Flomax -] 0.4 mg PO DAILY 02/08/14 Tiotropium [place] [Spiriva] 1 inh PO DAILY 02/08/14 Beclomethasone Dipropionate [Qvar] 8.7 gm IH DAILY 01/09/16 Atorvastatin Ca [Lipitor] 10 mg PO DAILY 08/30/16 Polyethylene Glycol 3350 [Miralax 119 gm Btl -] 17 gm PO DAILY PRN #1 bottle 10/15 Ferrous Sulfate [Feosol] 325 mg PO BID ud 05/06/17 Furosemide [Lasix -] 20 mg PO DAILY tablet 05/06/17 Acetaminophen [Tylenol .Regular Strength -] 650 mg PO Q4H PRN tablet 02/20/18 Albuterol 0.083% Nebulizer Portia [Ventolin 0.083% Nebulizer Soln -] 1 amp NEB Q4H PRN amp 02/20/18 Alprazolam [Xanax] 0.25 mg PO BID #60 tablet MDD 2 02/20/18 Magnesium Hydrox 2400MG/30Ml [Milk of Magnesia -] 30 ml PO DAILY PRN #1 bottle 02/20/18 Prednisone 10 mg PO ASDIR #65 tablet 02/20/18 Sennosides [Senna -] 2 tab PO HS PRN #60 tablet 02/20/18 Albuterol 0.083% Nebulizer Portia [Ventolin 0.083% Nebulizer Soln -] 1 neb NEB Q4H PRN #75 vial 03/06/18 Anemia: Yes (FROM BLEEDING) Asthma: No Cancer: No Cardiac Disorders: Yes ([place], CHF) CVA: No COPD: Yes (o2 at home) CHF: Yes Dementia: No Diabetes: No GI Disorders: Yes (umbilical hernia x 2) Disorders: Yes (UTI) HTN: Yes (FLUCTUATE) Hypercholesterolemia: Yes Kidney Stones: Yes Seizures: No Thyroid Disease: No - Surgical History Abdominal Surgery: No Appendectomy: No Cardiac Surgery: No Cholecystectomy: No Lung Surgery: No Neurologic Surgery: No Orthopedic Surgery: No - Suicide/Smoking/Psychosocial Hx Smoking Status: No Smoking History: Never smoked Have you smoked in the past 12 months: No Number of Cigarettes Smoked Daily: 40 If you are a former smoker, when did you quit?: many years ago Information on smoking cessation initiated: No Hx Alcohol Use: No Drug/Substance Use Hx: No Substance Use Type: None Hx Substance Use Treatment: No Review of Systems - Review of Systems Able to Perform ROS?: Yes Comments:: In addition to that documented in the HPI above, the additional ROS was obtained : Constitutional: Denies fevers or chills Eyes: Denies vision changes ENMT: Denies sore throat CV: Denies chest pain Resp: Per HPI GI: Denies vomiting or diarrhea : Denies painful urination MSK: Denies recent trauma Skin: Denies new rashes Neuro: Denies syncope Endocrine: Denies polyuria Heme: Denies bleeding *Physical Exam - Vital Signs Last Vital Signs Temp Pulse Resp BP Pulse Ox 98.9 F 119 H 15 113/66 97 03/06/18 00:55 03/06/18 01:55 03/06/18 01:55 03/06/18 01:55 03/06/18 01:55 - Physical Exam Comments: Constitutional: Well-developed, well-nourished male in no acute distress. Found semi-fowlers in hospital bed. Alert and oriented x4. Answered all questions appropriately and completely. HEENT: Normocephalic. No obvious external signs of trauma. Hearing grossly normal. No nasal discharge. Neck is supple, trachea is midline. Cardiovascular: Tachycardic rate and regular rhythm. No murmur, rubs, clicks, or gallops. Peripheral pulses: Radial pulses full. Trace pretibial edema. Respiratory: Moderate increase in work of breathing with accessory muscle usage but no nasal flaring or retractions. Equal chest rise and fall. Clear to auscultation bilaterally. Mild end expiratory wheezing without stridor, rhonchi , or rales. Gastrointestinal: abdomen is soft, non-tender, non-distended. Neuro: Alert and oriented. Moving all four extremities spontaneously. Skin: Warm, dry, and intact. No bruising, rashes, or other lesions. Psych: Affect: appropriate. Mood: normal. ED Treatment Course - LABORATORY CBC & Chemistry Diagram: 03/06/18 02:20 03/06/18 02:20 - ADDITIONAL ORDERS Additional order review: Laboratory Results 03/06/18 02:20 Sodium 139 Potassium 4.2 Chloride 94 L Carbon Dioxide 41 H Anion Gap 4 L BUN 16 Creatinine 0.8 Creat Clearance w eGFR > 60 Random Glucose 93 Calcium 9.0 Total Bilirubin 0.7 AST 18 ALT 27 Alkaline Phosphatase 93 Troponin I < 0.02 B-Natriuretic Peptide 63.9 Total Protein 7.2 Albumin 3.7 03/06/18 02:20 RBC 4.54 MCV 92.0 MCHC 32.5 RDW 14.4 MPV 8.5 Neutrophils % 93.0 H Lymphocytes % 2.6 L Monocytes % 3.0 L Eosinophils % 1.0 Basophils % 0.4 D - RADIOLOGY Radiology Studies Ordered: Category Date Time Status CHEST X-RAY PORTABLE* [RAD] Stat Radiology 03/06/18 02:00 Taken - Medications Given in the ED: ED Medications Discontinued Medications Generic Name Dose Route Start Last Admin Trade Name Freq PRN Reason Stop Dose Admin Albuterol Sulfate 1 amp 03/06/18 01:46 03/06/18 01:51 Ventolin 0.083% Nebulizer Soln - NEB 03/06/18 01:47 1 amp ONCE ONE Administration Medical Decision Making - Medical Decision Making *Reviewed vital signs, nursing notes, and prior visit documentation (if available). 67 y/o male with acute on chronic SOB and reported fever this evening. Suspect symptoms this evening are progression of his multiple pulmonary comorbidities. Afebrile on arrival. Vitals remarkable for tachycardia to between 120-1230bpm, suspect this is secondary to the numerous albuterol treatments he has received. No hypotension or hypertension. No rales or pronounced wheezing or rhonchi. Low suspicion for pneumonia, CHF, or COPD exacerbation. Will obtain CBC, CMP, BNP, Troponin, EKG, and CXR. Administered 1x albuterol for mild wheezing at pts request. CBC revealed mild leukocytosis. Suspect this is secondary to terminal block assembler steroid usage. Trend is steady since last admission. CMP unremarkable for electrolyte derangement. LFTs not elevated. Troponin not elevated. BNP not elevated. Continue to have low suspicion for CHF exacerbation. CXR revealed hyperinflated lung carmona. No infiltrates or blunting of the costophrenic angles. Unchanged from previous CXR dated 13 Feb 2018. Continue to have low suspicion of pneumonia. 03:20 Pt found sleeping comfortably. Heart rate remains elevated to 110. Ordered NS IVFB. will go home and get the pts new CPAP mask so fit can be assured. 03/06/18 05:27 Pt's HR has slowed to 90s bpm. Oxygen saturation remains above 94 %. Pt found sleeping comfortably, arousable to voice. Reports feeling better. Will prescribe refill of albuterol ampules. Discussed imaging and laboratory results with pt and . Answered all questions. Provided return precautions. Pt and expressed verbal understanding and agreement with plan to discharge home with outpatient follow up. *DC/Admit/Observation/Transfer Diagnosis at time of Disposition: COPD exacerbation, Tachycardia - Discharge Dispostion Disposition: HOME Condition at time of disposition: Stable Decision to Admit order: No - Prescriptions Prescriptions: Albuterol 0.083% Nebulizer Portia [Ventolin 0.083% Nebulizer Soln -] 1 neb NEB Q4H PRN #75 vial PRN Reason: Shortness Of Breath - Referrals Referrals: Mony Leslie MD [Primary Care Provider] - - Patient Instructions Printed Discharge Instructions: DI for Chronic Obstructive Pulmonary Disease Additional Instructions: Your shortness of breath and tachycardia have improved while in the department. Your blood work and chest xray were unchanged from your previous studies. Continue to take all of your home medications as previously prescribed. No changes were made to your regimen today. Please start using your CPAP mask. That would likely have helped your symptoms this evening. I have sent a prescription for albuterol to [facility]. Take as directed on the package. Follow up with your primary care physician within the next 3-4 days. You will need to call to make an appointment. The number is included in this packet. Go to the nearest emergency department if your condition worsens or you feel like you need additional emergency evaluation. Print Language: ISRAELI - Post Discharge Activity
[2018-03-06] MEDS ORDERED: SODIUM CHLORIDE 0.9% 500 ML INFUS.BAG IV ONE (03:22)
[2018-03-06 03:38] LABS: PLATELET ESTIMATE DECREASED
[2018-03-06 05:24] VITALS: BP 136/66; PULSE 92
--- NOTE | 2018-03-06 16:54 | EKG ---
Test Reason : Blood Pressure : / mmHG Vent. Rate : 113 BPM Atrial Rate : 113 BPM P-R Int : 148 ms QRS Dur : 116 ms QT Int : 324 ms P-R-T Axes : 079 081 038 degrees QTc Int : 444 ms SINUS TACHYCARDIA RIGHT BUNDLE BRANCH BLOCK ABNORMAL ECG WHEN COMPARED WITH ECG OF 13-FEB-2018 00:53, NONSPECIFIC T WAVE ABNORMALITY, IMPROVED IN INFERIOR LEADS NONSPECIFIC T WAVE ABNORMALITY HAS REPLACED INVERTED T WAVES IN ANTERIOR LEADS CLINICAL CORRELATION IS RECOMMENDED Confirmed by JESSICA GUTIERREZ, LUZ ([id number]) on 03/06/2018 4:53:38 PM Referred By: Confirmed By:LUZ LOPEZ MD
== END 2018-03-06 05:29 | disposition home or self-care (01) ==
LOC: JER 00:48
PROC: 3E0F7GC Introduction of Other Therapeutic Substance into Respiratory Tract, Via Natural or Artificial Opening (ICD-10-PCS; principal; 2018-03-06)
DX: J44.1 Chronic obstructive pulmonary disease with (acute) exacerbation (principal); R00.0 Tachycardia, unspecified; I25.10 Atherosclerotic heart disease of native coronary artery without angina pectoris; I27.20 Pulmonary hypertension, unspecified; I50.30 Unspecified diastolic (congestive) heart failure; K21.9 Gastro-esophageal reflux disease without esophagitis; D64.9 Anemia, unspecified; Z99.81 Dependence on supplemental oxygen
CPT/HCPCS: 36415; 71045-TC-FY; 80053; 83880; 84484; 85025; 93005; 93010; 99283-25

== ENCOUNTER 2018-03-10 02:34 | Inpatient (IN) | payer BC, OTHER ==
--- NOTE | 2018-03-10 02:43 | PDOC ---
History of Present Illness - General Stated Complaint: DIFFICULTY BREATHING Time Seen by Provider: 03/10/18 02:37 - History of Present Illness Initial Comments: 03/10/18 03:39 The patient is a 67 year old male with a history of HTN, HLD, CHF, COPD, [place] who presents for evaluation of respiratory distress. Per EMS, the patient has been experiencing worsening shortness of breath throughout the day yesterday and is usually on 2L of home O2 but had to increase to 6L of O2. On EMS's arrival to the patient's home, the patient was severely altered in severe respiratory distress. The patient was intubated on scene prior to arrival in the ED. ROS is unobtainable due to intubation Past History - Past Medical History Allergies/Adverse Reactions: Allergies Allergy/AdvReac Type Severity Reaction Status Date / Time moxifloxacin HCl Allergy Severe Verified 03/10/18 02:58 [From Avelox] aclidinium bromide Allergy Verified 03/10/18 02:58 [From Tudorza Pressair] shellfish derived Allergy Verified 03/10/18 02:58 Home Medications: Ambulatory Orders Albuterol Sulfate Inhaler - [Ventolin HFA Inhaler -] 2 inh PO Q4H 02/08/14 Arformoterol Tartrate [Brovana] 15 mcg IH BID 02/08/14 Aspirin [ASA -] 81 mg PO DAILY 02/08/14 Tamsulosin HCl [Flomax -] 0.4 mg PO DAILY 02/08/14 Tiotropium [place] [Spiriva] 1 inh PO DAILY 02/08/14 Beclomethasone Dipropionate [Qvar] 8.7 gm IH DAILY 01/09/16 Atorvastatin Ca [Lipitor] 10 mg PO DAILY 08/30/16 Polyethylene Glycol 3350 [Miralax 119 gm Btl -] 17 gm PO DAILY PRN #1 bottle 10/15 Ferrous Sulfate [Feosol] 325 mg PO BID ud 05/06/17 Furosemide [Lasix -] 20 mg PO DAILY tablet 05/06/17 Acetaminophen [Tylenol .Regular Strength -] 650 mg PO Q4H PRN tablet 02/20/18 Albuterol 0.083% Nebulizer Portia [Ventolin 0.083% Nebulizer Soln -] 1 amp NEB Q4H PRN amp 02/20/18 Alprazolam [Xanax] 0.25 mg PO BID #60 tablet MDD 2 02/20/18 Magnesium Hydrox 2400MG/30Ml [Milk of Magnesia -] 30 ml PO DAILY PRN #1 bottle 02/20/18 Prednisone 10 mg PO ASDIR #65 tablet 02/20/18 Sennosides [Senna -] 2 tab PO HS PRN #60 tablet 02/20/18 Albuterol 0.083% Nebulizer Portia [Ventolin 0.083% Nebulizer Soln -] 1 neb NEB Q4H PRN #75 vial 03/06/18 Anemia: Yes (FROM BLEEDING) Asthma: No Cancer: No Cardiac Disorders: Yes ([place], CHF) CVA: No COPD: Yes (o2 at home) CHF: Yes Dementia: No Diabetes: No GI Disorders: Yes (umbilical hernia x 2) Disorders: Yes (UTI) HTN: Yes (FLUCTUATE) Hypercholesterolemia: Yes Kidney Stones: Yes Seizures: No Thyroid Disease: No - Surgical History Abdominal Surgery: No Appendectomy: No Cardiac Surgery: No Cholecystectomy: No Lung Surgery: No Neurologic Surgery: No Orthopedic Surgery: No - Suicide/Smoking/Psychosocial Hx Smoking Status: No Smoking History: Never smoked Have you smoked in the past 12 months: No Number of Cigarettes Smoked Daily: 40 If you are a former smoker, when did you quit?: many years ago Hx Alcohol Use: No Drug/Substance Use Hx: No Substance Use Type: None Hx Substance Use Treatment: No Review of Systems - Review of Systems Able to Perform ROS?: No (Intubated) *Physical Exam - Physical Exam Comments: 03/10/18 03:52 General Appearance: Nourished. Intubated HEENT: No Pharyngeal Erythema, Tonsillar Exudate, Tonsillar Erythema Neck: No Cervical Lymphadenopathy Respiratory/Chest: Diminished breath sounds bilaterally with mild expiratory wheezing. No Crackles, Rales, Rhonchi, Cardiovascular: Regular Rhythm, Regular Rate. No Murmur, Gallops, Rubs Gastrointestinal/Abdominal: Normal Bowel Sounds, Soft. No Guarding, Rebound, Tenderness Musculoskeletal: No CVA Tenderness Extremity: Normal Capillary Refill Integumentary: Normal Color, Dry, Warm Neurologic: Intubated, Sedated. Heart Score/ECG Review #1 ECG reviewed & interpreted by me at: 03:59 General ECG Interpretation: Normal Rate, Normal Intervals, No acute ischemic changes 03/10/18 03:59 Right bundle branch block ED Treatment Course - LABORATORY CBC & Chemistry Diagram: 03/10/18 02:58 03/10/18 02:58 Medical Decision Making - Critical Care Time Total Critical Care Time (minutes): 45 Critical Care Statement: The care of this patient involved high complexity decision making to prevent further life threatening deterioration of the patient 's condition and/or to evaluate & treat vital organ system(s) failure or risk of failure. - Medical Decision Making 03/10/18 04:00 The patient is a 67 year old male with a history of HTN, HLD, CHF, COPD, DE who presents for evaluation of respiratory distress. Given the patient's history and physical exam, it is likely the patient's respiratory failure was due to a copd exacerbation. We confirmed the placement of the tube here in the ED and will obtain a cbc, cmp, troponin, bnp, ekg, chest plain film to evaluate further. We will treat with duonebs and solumedrol and continue to monitor and reassess. The patient will likely require ICU admission for further management. 03/10/18 04:17 CBC, cmp, troponin, bnp are unremarkable. Chest plain film demonstrates tube in proper position. The patient's lab and x-ray findings as well as clinically presentation are consistent with a copd exacerbation. We discussed the case with the ICU team who accepted the patient for ICU. We discussed the case with the admitting team who accepted the patient for admission. *DC/Admit/Observation/Transfer Diagnosis at time of Disposition: Acute respiratory distress COPD (chronic obstructive pulmonary disease) Qualifiers: COPD type: unspecified COPD Qualified Code(s): J44.9 - Chronic obstructive pulmonary disease, unspecified - Discharge Dispostion Condition at time of disposition: Guarded Decision to Admit order: Yes - Referrals Referrals: Mony Leslie MD [Primary Care Provider] - - Patient Instructions - Post Discharge Activity
--- NOTE | 2018-03-10 03:00 | PDOC ---
Attending Attestation - Resident Resident Name: Henrik Ogden - ED Attending Attestation I have performed the following: I have examined & evaluated the patient, The case was reviewed & discussed with the resident, I agree w/resident's findings & plan, Exceptions are as noted - HPI HPI: 03/10/18 03:15 The patient is a 67 year old male, with a past medical history of COPD (3L of a home oxygen intubated 1x 09), interstitial lung disease, pulmonary hypertension , hypertension, hyperlipidemia, CHF, [place], CAD, GERD, emphysema, and panic attacks , who presents to the emergency department with difficulty breathing. As per family at bedside, the patient has been experiencing increased SOB for the past 3 days requiring 6L of oxygen (baseline 3L). Tonight he woke up from his sleep requesting his Xanax thinking he was having a panic attack. However, family found him in respiratory distress unable to keep his head up. Upon EMS arrival, pt was found to be altered and not protecting his airway. Pt was intubated in the field using Etomidate and Rocuronium. Allergies: moxifloxacin HCl, aclidinium bromide, shellfish derived Past surgical history: Appendectomy. Hiatal hernia repair. Intubated (2008). Social History: Former smoker. Denies EtOH use and recreational drug use. Primary Care Physician: Dr. Leslie Property Field Adjuster: Dr. Titus Museum Tour Guide: Dr. Mckee ID: Dr. [email or web address] - Physicial Exam PE: 03/10/18 03:15 "GENERAL: + sedated, intubated HEAD: No signs of trauma EYES: PERRLA, EOMI, sclera anicteric, conjunctiva clear ENT: Auricles normal inspection, hearing grossly normal, nares patent, oropharynx clear without exudates. Moist mucosa NECK: Nontender, no stepoffs, Normal ROM, supple, no lymphadenopathy, JVD, or masses LUNGS: + bilateral rhonchorous breath sounds HEART: Regular rate and rhythm, normal S1 and S2, no murmurs, rubs or gallops ABDOMEN: Soft, nontender, normoactive bowel sounds. No guarding, no rebound. No masses EXTREMITIES: Normal range of motion, no edema. No clubbing or cyanosis. No cords, erythema, or tenderness NEUROLOGICAL: Sedated SKIN: Warm, Dry, normal turgor, no rashes or lesions noted. - Critical Care Time Total Critical Care Time: 90 Critical Care Statement: The care of this patient involved high complexity decision making to prevent further life threatening deterioration of the patient 's condition and/or to evaluate & treat vital organ system(s) failure or risk of failure. - Medical Decision Making 03/10/18 03:16 67 M with respiratory failure, likely hypercapnic 2/2 COPD. Exam with rhonchorous breath sounds. Also borderline temperature. - Labs, cultures - CXR - Mechanical ventilation - Nebs, steroids - Abx - propofol for sedation - Admit ICU
[2018-03-10] MEDS ORDERED: ALBUTEROL SO4 2.5/IPRATROPIUM 0.5 INH SOL 3 ML VIAL.NEB. NEB ONE ×2 (03:01→03:02)
[2018-03-10 03:04] LABS: BASO % 0.3 % (0-2.0); EOS % 4.1 % (0-4.5); HEMATOCRIT 37.7 % (35.4-49); HEMOGLOBIN 12.2 GM/dL (11.7-16.9); LYMPH % 9.5 % (8-40); MCHC 32.4 g/dl (32.0-35.9); MEAN CELL VOLUME 92.5 fl (80-96); MEAN PLT VOLUME 8.5 fl (7.5-11.1); NEUT % 82.1 % (42.8-82.8); PLATELET COUNT 87 K/MM3 (134-434); RBC 4.08 M/mm3 (4.00-5.60); RDW 14.4 % (11.9-15.9); WHITE BLOOD COUNT 5.9 K/mm3 (4.0-10.0)
[2018-03-10] MEDS ORDERED: methylPREDNISolone NA SUCC 125 MG/2 ML VIAL IVPUSH ONE (03:07)
[2018-03-10] MEDS ORDERED: PROPOFOL 1,000,000 MCG/100 ML VIAL ONE (03:11)
[2018-03-10] MEDS ORDERED: methylPREDNISolone NA SUCC 125 MG/2 ML VIAL ONE (03:12)
[2018-03-10] MEDS ORDERED: PROPOFOL 200 MG/20 ML VIAL IVPUSH ONE (03:13)
[2018-03-10 03:30] LABS: ALBUMIN 3.1 g/dl (3.4-5.0); ALK PHOS 73 U/L (45-117); ANION GAP 3 MMOL/L (8-16); BILIRUBIN,TOTAL 0.7 mg/dL (0.2-1); BLOOD UREA NITROGEN 16 mg/dL (7-18); CALCIUM 8.5 mg/dL (8.5-10.1); CHLORIDE 98 mmol/L (98-107); CO2 41 mmol/L (21-32); CREATININE 0.6 mg/dL (0.55-1.3); GLUCOSE,RANDOM 118 mg/dL (74-106); N-TERMINAL BNP 99.2 pg/ml (5-125); POTASSIUM 3.6 mmol/L (3.5-5.1); SGOT/AST 13 U/L (15-37); SGPT/ALT 21 U/L (13-61); SODIUM 142 mmol/L (136-145); TOT PROT 6.2 g/dl (6.4-8.2)
[2018-03-10] MEDS: PROPOFOL 1,000,000 MCG/100 ML VIAL IVPB SCH ×2 (03:35→09:38)
[2018-03-10] MEDS ORDERED: ALBUTEROL SO4 0.083% IH SOL 2.5 MG/3 ML VIAL.NEB. NEB PRN ×2 (03:56→05:51)
--- NOTE | 2018-03-10 04:03 | CONSULT ---
Consultation: REQUESTING PROVIDER: CONSULT REQUEST: We have been asked to medically evaluate this patient for ( specify). HISTORY OF PRESENT ILLNESS: This is a 67 yo M with PMH of 2L O2 dependant COPD, pulm htn, recent copd exacerbation 2w ago since then still on steroid taper and doxycycline, ILD and CHF, BIBEMS s/p on site intubation. Per , patient has ween experiencing worsening sob x 3 days with productive cough. In the middle of the night he woke up in respiratory distress and states he is having a panick attack. he received a benzo and was placed on BIPAP, which did not help. By the time EMT arrived patient was 86% O2 and unresponsive. He was intubated on site but became wakeful in ED, requiring up titration of propofol. ER ABG: pH 7.31, PCO2 75.3, PO2 128; received 125 medrol. REVIEW OF SYSTEMS: inable to obtain PHYSICAL EXAMINATION Vital Signs - 24 hr 03/10/18 03/10/18 03/10/18 02:35 02:50 03:49 Temperature 99.4 F Pulse Rate 90 Respiratory 17 14 14 Rate Blood Pressure 126/53 L O2 Sat by Pulse 100 Oximetry (%) GENERAL: sedated but waking up and sitting up HEAD: Normal with no signs of trauma. EYES: Pupils equal, round and reactive to light, sclera anicteric, conjunctiva clear. EARS, NOSE, THROAT: Moist mucous membranes. NECK: supple without JVD LUNGS: diffusely coarse breath sounds, end expiratory wheezes HEART: Regular rate and rhythm, normal S1 and S2 ABDOMEN: Soft, not distended, normoactive bowel sounds, no guarding, no rebound , no masses. MUSCULOSKELETAL: No bony deformities or tenderness. UPPER EXTREMITIES: 2+ pulses, warm, well-perfused. LOWER EXTREMITIES: 2+ pulses, warm, well-perfused. No peripheral edema. NEUROLOGICAL: Cranial nerves II-XII grossly intact. moves all extremities. unable to assess further PSYCHIATRIC: sedated SKIN: Warm, dry Laboratory Results - last 24 hr 03/10/18 03/10/18 02:58 02:58 WBC 5.9 RBC 4.08 Hgb 12.2 Hct 37.7 MCV 92.5 MCH 30.0 MCHC 32.4 RDW 14.4 Plt Count 87 L MPV 8.5 Absolute Neuts (auto) 4.8 Neutrophils % 82.1 Lymphocytes % 9.5 D Monocytes % 4.0 Eosinophils % 4.1 D Basophils % 0.3 Nucleated RBC % 0 Sodium 142 Potassium 3.6 Chloride 98 Carbon Dioxide 41 H Anion Gap 3 L BUN 16 Creatinine 0.6 Creat Clearance w eGFR > 60 Random Glucose 118 H Calcium 8.5 Total Bilirubin 0.7 AST 13 L ALT 21 Alkaline Phosphatase 73 Creatine Kinase 37 Troponin I < 0.02 B-Natriuretic Peptide 99.2 Total Protein 6.2 L Albumin 3.1 L Active Medications Generic Name Dose Route Start Last Admin Trade Name Freq PRN Reason Stop Dose Admin Albuterol Sulfate 1 amp 03/10/18 03:56 Ventolin 0.083% Nebulizer Soln - NEB Q4H PRN SHORT OF BREATH/WHEEZING Albuterol/Ipratropium 1 amp 03/10/18 08:00 Duoneb - NEB RQID TA Budesonide/Formoterol Fumarate 2 puff 03/10/18 10:00 Symbicort 160/4.5mcg - IH BID TA Propofol 1,000,000 mcg in 100 mls @ 1.891 mls/hr 03/10/18 03:00 03/10/18 03: 35 Diprivan - IVPB 5 mcg/kg/min TITR TA 1.891 mls/hr Administration Protocol 5 MCG/KG/MIN Azithromycin 500 mg/ Dextrose 250 mls @ 250 mls/hr 03/10/18 10:00 IVPB DAILY TA Methylprednisolone Sodium Succinate 40 mg 03/10/18 04:00 Solu-Medrol - IVPB Q6H-IV TA ASSESSMENT/PLAN: This is a 67 yo M with PMH of 2L O2 dependant COPD, pulm htn, recent copd exacerbation 2w ago since then still on steroid taper and doxycycline, ILD and CHF, BIBEMS s/p on site intubation Acute hypocix hyercaneic respiratory failure in setting on O2 dependant COPD and ILD Acute COPD exacerbation Stable CHF -intubated, maintain current vent settings with goal O2 >92%: goal reduce hypercapnia to baseline 40'S, 50'S -duonebs standing, albuterol prn -inhaled steroids -medrol 40 q6 -azithro/rocephin -propofol, versed sedation for vent synchrony -daily sedation vacation, weaning trials -daily suctioning -hold home aspirin and statin -cant resume home lasix in IV form -ICU; will follow Problem List - Problems (1) Acute respiratory distress Code(s): J80 - ACUTE RESPIRATORY DISTRESS SYNDROME (2) COPD (chronic obstructive pulmonary disease) Code(s): J44.9 - CHRONIC OBSTRUCTIVE PULMONARY DISEASE, UNSPECIFIED Qualifiers: COPD type: unspecified COPD Qualified Code(s): J44.9 - Chronic obstructive pulmonary disease, unspecified (3) Acute and chronic respiratory failure with hypercapnia Code(s): J96.22 - ACUTE AND CHRONIC RESPIRATORY FAILURE WITH HYPERCAPNIA (4) Anxiety disorder due to general medical condition Code(s): F06.4 - ANXIETY DISORDER DUE TO KNOWN PHYSIOLOGICAL CONDITION (5) COPD exacerbation Code(s): J44.1 - CHRONIC OBSTRUCTIVE PULMONARY DISEASE W (ACUTE) EXACERBATION (6) Diastolic dysfunction Code(s): I51.9 - HEART DISEASE, UNSPECIFIED (7) Panic attack Code(s): F41.0 - PANIC DISORDER [EPISODIC PAROXYSMAL ANXIETY] (8) Pulmonary hypertension Code(s): I27.20 - PULMONARY HYPERTENSION, UNSPECIFIED (9) Respiratory failure with hypercapnia Code(s): J96.92 - RESPIRATORY FAILURE, UNSPECIFIED WITH HYPERCAPNIA Qualifiers: Chronicity: acute on chronic Qualified Code(s): J96.22 - Acute and chronic respiratory failure with hypercapnia (10) Syncope Code(s): R55 - SYNCOPE AND COLLAPSE Visit type - Emergency Visit Emergency Visit: Yes Care time: The patient presented to the Emergency Department on the above date and was hospitalized for further evaluation of their emergent condition. - New Patient This patient is new to me today: Yes Date on this admission: 03/10/18 - Critical Care Critical Care patient: Yes Total Critical Care Time (in minutes): 35 Critical Care Statement: The care of this patient involved high complexity decision making to prevent further life threatening deterioration of the patient 's condition and/or to evaluate & treat vital organ system(s) failure or risk of failure.
[2018-03-10 04:06] LABS: ARTERIAL BLD GAS O2 SATURATION 98.8 % (90-98.9); ARTERIAL BLOOD GAS BASE EXCESS 8.6 meq/l (-2-2); ARTERIAL BLOOD GAS pH 7.31 (7.35-7.45)
[2018-03-10] MEDS: methylPREDNISolone NA SUCC 40 MG/1 ML VIAL IVPB SCH ×4 (04:06→20:33)
[2018-03-10 04:07] LABS: ALLENS TEST POSITIVE
[2018-03-10 04:11] LABS: ARTERIAL BLOOD GAS PCO2 75.3 mmHg (35-45)
[2018-03-10 04:14] LABS: CARBOXYHEMOGLOBIN 1.4 gm% (0.5-2.0)
[2018-03-10 04:37] LABS: URINE APPEARANCE CLEAR; URINE BILIRUBIN NEGATIVE (<2.0 mg/dL); URINE COLOR YELLOW; URINE GLUCOSE (UA) NEGATIVE (NEGATIVE); URINE KETONE TRACE (NEGATIVE); URINE LEUK ESTERASE NEGATIVE (NEGATIVE); URINE NITRITE NEGATIVE (NEGATIVE); URINE PROTEIN 1+ (NEGATIVE); URINE UROBILINOGEN NEGATIVE mg/dL (0.2-1.0)
[2018-03-10 04:41] LABS: URINE MUCUS RARE
[2018-03-10 05:05] LABS: ANISOCYTOSIS 1+; PLATELET ESTIMATE DECREASED
[2018-03-10] MEDS: MIDAZOLAM 100 MG in SODIUM CHLORIDE 100 ML IVPB SCH (05:30)
--- NOTE | 2018-03-10 05:48 | HP ---
CHIEF COMPLAINT: PCP: HISTORY OF PRESENT ILLNESS: This is a 67 year old male with a significant past medical history of COPD on home oxygen, interstitial lung disease and CHF who presented to the ED with a 3 day history of progressively worsening SOB. Pt sedated on ventilator at time of exam. History of present illness obtained from . She reports that this evening when he went to sleep, she noted him to be breathing faster than usual with more effort. He then awoke during the night and was extremely SOB. He collapsed in his 's arms while she was helping him to a chair. She reports that he was "completely out of it" and pale. She called 911. EMS intubated patient in ambulance on way to ED. Of note, pt was seen and evaluated in the ED on 03/06 for SOB and received one duoneb and 2 albuterol nebs. He was observed in the ED for several hours and then discharged home. 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 Smoking: quit 10+ years ago, prior 2ppd x 35 years Alcohol: pt denies Drugs: pt denies Family History: mother age 67, colon CA father age 67, AL multiple siblings with COPD, lung disease Allergies moxifloxacin HCl [From Avelox] Allergy (Severe, Verified 03/10/18 02:58) " I DON'T FEEL RIGHT " aclidinium bromide [From Tudorza Pressair] Allergy (Verified 03/10/18 02:58) shellfish derived Allergy (Verified 03/10/18 02:58) HOME MEDICATIONS: 3 Medication Instructions Recorded Albuterol Sulfate Inhaler - 2 inh PO Q4H 02/08/14 [Ventolin HFA Inhaler -] Arformoterol Tartrate [Brovana] 15 mcg IH BID 02/08/14 Aspirin [ASA -] 81 mg PO DAILY 02/08/14 Tamsulosin HCl [Flomax -] 0.4 mg PO DAILY 02/08/14 Tiotropium Eden [Spiriva] 1 inh PO DAILY 02/08/14 Beclomethasone Dipropionate [Qvar] 8.7 gm IH DAILY 01/09/16 Atorvastatin Ca [Lipitor] 10 mg PO DAILY 08/30/16 Polyethylene Glycol 3350 [Miralax 17 gm PO DAILY PRN #1 bottle 09/03/16 119 gm Btl -] Ferrous Sulfate [Feosol] 325 mg PO BID ud 05/06/17 Furosemide [Lasix -] 20 mg PO DAILY tablet 05/06/17 Acetaminophen [Tylenol .Regular 650 mg PO Q4H PRN tablet 02/20/18 Strength -] Albuterol 0.083% Nebulizer Portia 1 amp NEB Q4H PRN amp 02/20/18 [Ventolin 0.083% Nebulizer Soln -] Alprazolam [Xanax] 0.25 mg PO BID #60 tablet MDD 2 02/20/18 Magnesium Hydrox 2400MG/30Ml [Milk 30 ml PO DAILY PRN #1 bottle 02/20/18 of Magnesia -] Prednisone 10 mg PO ASDIR #65 tablet 02/20/18 Sennosides [Senna -] 2 tab PO HS PRN #60 tablet 02/20/18 Albuterol 0.083% Nebulizer Portia 1 neb NEB Q4H PRN #75 vial 03/06/18 [Ventolin 0.083% Nebulizer Soln -] REVIEW OF SYSTEMS CONSTITUTIONAL: Absent: fever, chills, diaphoresis, generalized weakness, malaise, loss of appetite, weight change HEENT: Absent: rhinorrhea, nasal congestion, throat pain, throat swelling, difficulty swallowing, mouth swelling, ear pain, eye pain, visual changes CARDIOVASCULAR: Absent: chest pain, syncope, palpitations, irregular heart rate, lightheadedness , peripheral edema RESPIRATORY: Present: shortness of breath Absent: wheezing, stridor, hemoptysis GASTROINTESTINAL: Absent: abdominal pain, abdominal distension, nausea, vomiting, diarrhea, constipation, melena, hematochezia GENITOURINARY: Absent: dysuria, frequency, urgency, hesitancy, hematuria, flank pain, genital pain MUSCULOSKELETAL: Absent: myalgia, arthralgia, joint swelling, back pain, neck pain SKIN: Absent: rash, itching, pallor HEMATOLOGIC/IMMUNOLOGIC: Absent: easy bleeding, easy bruising, lymphadenopathy, frequent infections ENDOCRINE: Absent: unexplained weight gain, unexplained weight loss, heat intolerance, cold intolerance NEUROLOGIC: Absent: headache, focal weakness or paresthesias, dizziness, unsteady gait, seizure, mental status changes, bladder or bowel incontinence PSYCHIATRIC: Absent: anxiety, depression, suicidal or homicidal ideation, hallucinations. PHYSICAL EXAMINATION 3 03/10/18 03/10/18 03/10/18 02:35 02:50 03:49 Temperature 99.4 F Pulse Rate 90 Pulse Rate [ Apical] Respiratory 17 14 14 Rate Blood Pressure 126/53 L Blood Pressure [Left Arm] O2 Sat by Pulse 100 Oximetry (%) 3 03/10/18 05:29 Temperature Pulse Rate Pulse Rate [ 82 Apical] Respiratory 14 Rate Blood Pressure Blood Pressure 108/56 L [Left Arm] O2 Sat by Pulse 100 Oximetry (%) GENERAL: sedated on ventilator HEAD: Normal with no signs of trauma. EYES: Pupils equal, round and reactive to light, extraocular movements intact, sclera anicteric, conjunctiva clear. No lid lag. EARS, NOSE, THROAT: Ears normal, nares patent, oropharynx clear without exudates. Moist mucous membranes. NECK: Normal range of motion, supple without lymphadenopathy, JVD, or masses. LUNGS: Breath sounds equal, clear to auscultation bilaterally. No wheezes, and no crackles. No accessory muscle use. HEART: Regular rate and rhythm, normal S1 and S2 without murmur, rub or gallop. ABDOMEN: Soft, nontender, not distended, normoactive bowel sounds, no guarding, no rebound, no masses. No hepatomegaly or splenomegaly. MUSCULOSKELETAL: Normal range of motion at all joints. No bony deformities or tenderness. No CVA tenderness. UPPER EXTREMITIES: 2+ pulses, warm, well-perfused. No cyanosis. No clubbing. No peripheral edema. LOWER EXTREMITIES: 2+ pulses, warm, well-perfused. No calf tenderness. No peripheral edema. NEUROLOGICAL: sedated on ventilator SKIN: Warm, dry, normal turgor, no rashes or lesions noted, normal capillary refill. Laboratory Results - last 24 hr 3 03/10/18 03/10/18 03/10/18 02:58 02:58 03:50 WBC 5.9 RBC 4.08 Hgb 12.2 Hct 37.7 MCV 92.5 MCH 30.0 MCHC 32.4 RDW 14.4 Plt Count 87 L MPV 8.5 Absolute Neuts (auto) 4.8 Total Counted 100 Neutrophils % 82.1 Neutrophils % (Manual) 80.0 Band Neutrophils % 3.0 Lymphocytes % 9.5 D Lymphocytes % (Manual) 8.0 D Monocytes % 4.0 Monocytes % (Manual) 5 D Eosinophils % 4.1 D Eosinophils % (Manual) 4.0 D Basophils % 0.3 Nucleated RBC % 0 Hypochromia 1+ Platelet Estimate Decreased Platelet Comment No clumping noted Anisocytosis 1+ Anticoagulation Therapy No Result Required. Puncture Site Right radial ABG pH 7.31 L ABG pCO2 at Pt Temp 75.3 H* D ABG pO2 at Pt Temp 128.0 H D ABG HCO3 37.1 H ABG O2 Sat (Measured) 98.8 ABG O2 Content 16.9 ABG Base Excess 8.6 H Pardeep Test Positive Carboxyhemoglobin 1.4 Methemoglobin 0.3 L O2 Delivery Device No Result Required. Oxygen Flow Rate 50% Vent Mode No Result Required. Vent Rate No Result Required. Mechanical Rate No Result Required. PEEP 5.0 Pressure Support Vent 400 Sodium 142 Potassium 3.6 Chloride 98 Carbon Dioxide 41 H Anion Gap 3 L BUN 16 Creatinine 0.6 Creat Clearance w eGFR > 60 Random Glucose 118 H Calcium 8.5 Total Bilirubin 0.7 AST 13 L ALT 21 Alkaline Phosphatase 73 Creatine Kinase 37 Troponin I < 0.02 B-Natriuretic Peptide 99.2 Total Protein 6.2 L Albumin 3.1 L Urine Color Urine Appearance Urine pH Ur Specific [place] Urine Protein Urine Glucose (UA) Urine Ketones Urine Blood Urine Nitrite Urine Bilirubin Urine Urobilinogen Ur Leukocyte Esterase Urine WBC (Auto) Urine RBC (Auto) Urine Mucus 3 Urine Color Yellow 03/10/18 04:16 Urine Appearance Clear 03/10/18 04:16 Urine pH 5.0 (5.0-8.0) D 03/10/18 04:16 Ur Specific [place] 1.016 (1.010-1.035) 03/10/18 04:16 Urine Protein 1+ (NEGATIVE) H 03/10/18 04:16 Urine Glucose (UA) Negative (NEGATIVE) 03/10/18 04:16 Urine Ketones Trace (NEGATIVE) H 03/10/18 04:16 Urine Blood 1+ (NEGATIVE) H 03/10/18 04:16 Urine Nitrite Negative (NEGATIVE) 03/10/18 04:16 Urine Bilirubin Negative (<2.0 mg/dL) 03/10/18 04:16 Urine Urobilinogen Negative 03/10/18 04:16 Ur Leukocyte Esterase Negative (NEGATIVE) 03/10/18 04:16 Urine WBC (Auto) 7 03/10/18 04:16 Urine RBC (Auto) 25 03/10/18 04:16 Urine Mucus Rare 03/10/18 04:16 ASSESSMENT/PLAN: 67yM with PMH COPD on home oxygen, Interstitial lung disease, pHTN, HTN, HLD, CHF, diastolic LV dysfunction, AL, CAD, GERD, hiatal hernia, anemia presented to the ED via EMS intubated due to severe respiratory distress, unresponsive. hypercapneic respiratory failure / COPD / ILD - cont ventilator - decrease oxygen to 40%FIO2, will d/w respiratory increasing rate - admit to ICU - NPO until off ventilatory - duoneb QID - albuterol neb prn - home brovana and qvar changed to symbicort per ICU resident, cont same - pulmonary consult HTN/HLD/CAD/CHF - hold home po meds while on ventilator. Monitor BP and initiate IV meds PRN - on lasix po at home; now npo, lasix IV PRN, no s/s fluid overload presently anemia - monitor H/H DVT PPX - heparin SC FEN - hold IVF for now - BMP in am - NPO while intubated Dispo: pt currently requires further inpatient management of his emergent condition. Visit type - Emergency Visit Emergency Visit: Yes ED Registration Date: 03/10/18 Care time: The patient presented to the Emergency Department on the above date and was hospitalized for further evaluation of their emergent condition. - New Patient This patient is new to me today: Yes Date on this admission: 03/10/18 - Critical Care Critical Care patient: Yes Total Critical Care Time (in minutes): 55 Critical Care Statement: The care of this patient involved high complexity decision making to prevent further life threatening deterioration of the patient 's condition and/or to evaluate & treat vital organ system(s) failure or risk of failure.
[2018-03-10] MEDS: ALBUTEROL SO4 2.5/IPRATROPIUM 0.5 INH SOL 3 ML VIAL.NEB. NEB SCH ×4 (08:10→20:38)
--- NOTE | 2018-03-10 08:32 | PN ---
Progress Note, Physician History of Present Illness: 67 year old male with a significant past medical history of COPD on home oxygen , interstitial lung disease and CHF who presented to the ED with a 3 day history of progressively worsening SOB. Pt sedated on ventilator at time of exam. History of present illness obtained from . She reports that this evening when he went to sleep, she noted him to be breathing faster than usual with more effort. He then awoke during the night and was extremely SOB. He collapsed in his 's arms while she was helping him to a chair. She reports that he was "completely out of it" and pale. She called 911. EMS intubated patient in ambulance on way to ED. Of note, pt was seen and evaluated in the ED on 03/06 for SOB and received one duoneb and 2 albuterol nebs. He was observed in the ED for several hours and then discharged home. ER course was notable for: (1) ABG revealed pH 7.31, PCO2 75.3, PO2 128 (2) given solumedrol 125 and duoneb x4 (3) pt sedated with propofol - Current Medication List Current Medications: Active Medications Albuterol Sulfate (Ventolin 0.083% Nebulizer Soln -) 1 amp NEB Q4H PRN PRN Reason: SHORT OF BREATH/WHEEZING Last Admin: 03/10/18 04:37 Dose: 1 amp Albuterol/Ipratropium (Duoneb -) 1 amp NEB RQID TA Budesonide/Formoterol Fumarate (Symbicort 160/4.5mcg -) 2 puff IH BID TA Chlorhexidine Gluconate (Hibiclens For Decolonization -) 1 applic TP HS TA Heparin Sodium (Porcine) (Heparin -) 5,000 unit SQ TID TA Propofol (Diprivan -) 1,000,000 mcg in 100 mls @ 1.891 mls/hr IVPB TITR TA; Protocol Last Titration: 03/10/18 05:17 Dose: 30 mcg/kg/min, 11.349 mls/hr Azithromycin 500 mg/ Dextrose 250 mls @ 250 mls/hr IVPB DAILY TA Midazolam HCl 100 mg/ Sodium (Chloride) 100 mls @ 1 mls/hr IVPB TITR TA; Protocol Last Admin: 03/10/18 05:30 Dose: Not Given Ceftriaxone Sodium 1 gm/ (Dextrose) 50 mls @ 100 mls/hr IVPB DAILY [facility] Methylprednisolone Sodium Succinate (Solu-Medrol -) 40 mg IVPB Q6H-IV TA Last Admin: 03/10/18 04:06 Dose: Not Given Mupirocin (Bactroban Ointment (For Decolonization) -) 1 applic NS BID TA Stop: 03/15/18 09:59 - Objective Vital Signs: Vital Signs Temperature 98.9 F 03/10/18 06:15 Pulse Rate 81 03/10/18 06:15 Respiratory Rate 18 03/10/18 07:09 Blood Pressure 91/53 L 03/10/18 06:15 O2 Sat by Pulse Oximetry (%) 100 03/10/18 07:09 Cardiovascular: Yes: Tachycardia, S1, S2 Respiratory: Yes: CTA Bilaterally, Mechanically Ventilated Gastrointestinal: Yes: Normal Bowel Sounds, Soft Labs: CBC, BMP 03/10/18 02:58 03/10/18 02:58 Problem List - Problems (1) Respiratory failure with hypercapnia Assessment/Plan: - cont ventilator - on 40% FIO2 - ICU - duoneb QID - pulmonary consult Code(s): J96.92 - RESPIRATORY FAILURE, UNSPECIFIED WITH HYPERCAPNIA Qualifiers: Chronicity: acute on chronic Qualified Code(s): J96.22 - Acute and chronic respiratory failure with hypercapnia (2) COPD (chronic obstructive pulmonary disease) Assessment/Plan: -IV Steroids -Nebs -Pulm Consult Code(s): J44.9 - CHRONIC OBSTRUCTIVE PULMONARY DISEASE, UNSPECIFIED Qualifiers: COPD type: unspecified COPD Qualified Code(s): J44.9 - Chronic obstructive pulmonary disease, unspecified (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 Assessment/Plan: -Xanax prn once off sedation Code(s): F06.4 - ANXIETY DISORDER DUE TO KNOWN PHYSIOLOGICAL CONDITION (4) Diastolic dysfunction Assessment/Plan: -Lasix prn Code(s): I51.9 - HEART DISEASE, UNSPECIFIED (5) MRSA (methicillin resistant Staphylococcus aureus) colonization Assessment/Plan: -Per protocol Code(s): Z22.322 - CARRIER OR SUSPECTED CARRIER OF METHICILLIN RESIS STAPH (6) Pulmonary cavitary lesion Assessment/Plan: -Treated for Mac in past Code(s): J98.4 - OTHER DISORDERS OF LUNG (7) Pulmonary nodule Assessment/Plan: -Recent ct increased in size -outpatient pet scan Code(s): R91.1 - SOLITARY PULMONARY NODULE
[2018-03-10] MEDS ORDERED: cefTRIAXone SODIUM 1 GM VIAL ONE (09:34)
[2018-03-10] MEDS ORDERED: DEXTROSE 5%-WATER - 50 ML IVPB ONE (09:35)
--- NOTE | 2018-03-10 09:57 | EKG ---
Test Reason : Blood Pressure : / mmHG Vent. Rate : 088 BPM Atrial Rate : 088 BPM P-R Int : 152 ms QRS Dur : 128 ms QT Int : 362 ms P-R-T Axes : 069 082 036 degrees QTc Int : 438 ms NORMAL SINUS RHYTHM RIGHT BUNDLE BRANCH BLOCK ABNORMAL ECG WHEN COMPARED WITH ECG OF 06-MAR-2018 02:37, NO SIGNIFICANT CHANGE WAS FOUND Confirmed by YISEL SALINAS MD ([id number]) on 03/10/2018 9:57:17 AM Referred By: Confirmed By:YISEL SALINAS MD
[2018-03-10] MEDS ORDERED: PATIENT'S OWN MEDICATION (NON-FORMULARY) (Beclomethasone Dipropionate [Qvar] 8.7 GM) IH SCH (10:00)
[2018-03-10] MEDS ORDERED: AZITHROMYCIN IVPB 500 MG in DEXTROSE 5%-WATER - 250 ML IVPB SCH (10:00)
[2018-03-10] MEDS ORDERED: ARFORMOTEROL TARTRATE 15 MCG/2 ML VIAL NEB SCH (10:00)
--- NOTE | 2018-03-10 10:17 | CON.ID ---
Consult Consult Specialty:: infectious disease Referred by:: loretta Reason for Consultation:: respiratory failure - History of Present Illness Chief Complaint: 67 yo man with severe copd on home oxygen present with 3 days of worsening. 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- Cindy Parker followed by Dr Mckee (pulmonary), and [facility] team has not been treated last admission told me he was advised by his doctors that he didnot need treatment for the left lung cavity recent admission 02/13- 02/20 for sob- treated with steroids and ceftriaxone for 7 days - History Source History Provided By: Medical Record Limitations to Obtaining History: Intubated - Past Medical History Cardio/Vascular: Yes: CAD, CHF, HTN, Hyperlipdemia, Pulmonary Hypertension Pulmonary: Yes: COPD (home oxygen), O2 Dependent, Previously Intubated ( intubated one time several years ago for respiratory failure), Other ( Interstitial lung disease) Gastrointestinal: Yes: GERD, Hiatal Hernia Renal/: Yes: Renal Calculi, UTI Additional Medical History: Inguinal hernia. 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 History of Recent Travel: No Home Medications - Allergies Allergies/Adverse Reactions: Allergies Allergy/AdvReac Type Severity Reaction Status Date / Time moxifloxacin HCl Allergy Severe Verified 03/10/18 02:58 [From Avelox] aclidinium bromide Allergy Verified 03/10/18 02:58 [From Tudorza Pressair] shellfish derived Allergy Verified 03/10/18 02:58 - Home Medications Home Medications: Ambulatory Orders Albuterol Sulfate Inhaler - [Ventolin HFA Inhaler -] 2 inh PO Q4H 02/08/14 Arformoterol Tartrate [Brovana] 15 mcg IH BID 02/08/14 Aspirin [ASA -] 81 mg PO DAILY 02/08/14 Tamsulosin HCl [Flomax -] 0.4 mg PO DAILY 02/08/14 Tiotropium Holt [Spiriva] 1 inh PO DAILY 02/08/14 Beclomethasone Dipropionate [Qvar] 8.7 gm IH DAILY 01/09/16 Atorvastatin Ca [Lipitor] 10 mg PO DAILY 08/30/16 Polyethylene Glycol 3350 [Miralax 119 gm Btl -] 17 gm PO DAILY PRN #1 bottle 10/15 Ferrous Sulfate [Feosol] 325 mg PO BID ud 05/06/17 Furosemide [Lasix -] 20 mg PO DAILY tablet 05/06/17 Acetaminophen [Tylenol .Regular Strength -] 650 mg PO Q4H PRN tablet 02/20/18 Albuterol 0.083% Nebulizer Portia [Ventolin 0.083% Nebulizer Soln -] 1 amp NEB Q4H PRN amp 02/20/18 Alprazolam [Xanax] 0.25 mg PO BID #60 tablet MDD 2 02/20/18 Magnesium Hydrox 2400MG/30Ml [Milk of Magnesia -] 30 ml PO DAILY PRN #1 bottle 02/20/18 Prednisone 10 mg PO ASDIR #65 tablet 02/20/18 Sennosides [Senna -] 2 tab PO HS PRN #60 tablet 02/20/18 Albuterol 0.083% Nebulizer Portia [Ventolin 0.083% Nebulizer Soln -] 1 neb NEB Q4H PRN #75 vial 03/06/18 Family Disease History - Family Disease History Family History: Unable to Obtain Review of Systems - Review of Systems Respiratory: reports: SOB Physical Exam Vital Signs: Vital Signs Temperature 98.9 F 03/10/18 06:15 Pulse Rate 76 03/10/18 08:10 Respiratory Rate 18 03/10/18 08:10 Blood Pressure 91/53 L 03/10/18 06:15 O2 Sat by Pulse Oximetry (%) 100 03/10/18 08:10 Constitutional: Yes: No Distress Eyes: Yes: Conjunctiva Clear HENT: Yes: Atraumatic, Normocephalic, Other (orally intubated) Cardiovascular: Yes: Regular Rate and Rhythm Respiratory: Yes: CTA Bilaterally Gastrointestinal: Yes: Normal Bowel Sounds, Soft Extremities: Yes: WNL Edema: No Labs: CBC, BMP 03/10/18 02:58 03/10/18 02:58 UA negative Imaging - Results Chest X-ray: Report Reviewed, Image Reviewed (no pulmonary consolidation, biapical scarring) Problem List - Problems (1) Acute respiratory distress Code(s): J80 - ACUTE RESPIRATORY DISTRESS SYNDROME (2) COPD exacerbation Code(s): J44.1 - CHRONIC OBSTRUCTIVE PULMONARY DISEASE W (ACUTE) EXACERBATION (3) Mycobacterial disease, pulmonary Code(s): A31.0 - PULMONARY MYCOBACTERIAL INFECTION (4) MRSA (methicillin resistant Staphylococcus aureus) colonization Code(s): Z22.322 - CARRIER OR SUSPECTED CARRIER OF METHICILLIN RESIS STAPH Assessment/Plan no focal infiltrates noted on cxray would continue rocephin/zithromax add vancomycin given prior history of MRSA colonization obtain sputum culture and legionella antigen will need f/u of right apical mass when stable overall status guarded history oxygen dependent copd trend platelets- over 45 minutes spent in the care of this critically ill ICU patient
[2018-03-10] MEDS ORDERED: LACTATED RINGERS SOLUTION 1000 ML INFUS.BAG IV ONE ×2 (10:23)
[2018-03-10] MEDS: CEFTRIAXONE 1 GM in DEXTROSE 5%-WATER - 50 ML IVPB SCH (10:23)
[2018-03-10] MEDS ORDERED: VANCOMYCIN 1,000 MG in DEXTROSE 5%-WATER - 250 ML IVPB SCH (10:30)
[2018-03-10] MEDS: VANCOMYCIN 1 GRAM (PRE-DOCKED) 1,000 MG/250 ML BAG IVPB SCH ×2 (12:00→23:17)
--- NOTE | 2018-03-10 13:32 | PN ---
Teaching Attending Note Name of Resident: Henrik Wiseman ATTENDING PHYSICIAN STATEMENT I saw and evaluated the patient. I reviewed the resident's note and discussed the case with the resident. I agree with the resident's findings and plan as documented. SUBJECTIVE: Pt seen and examined in the ICU. Remained intubated, sedated overnight. Taken off sedation and placed on CPAP/PS during rounds with good tidal volumes and RR , subsequently extubated. OBJECTIVE: Vital Signs Period Temp Pulse Resp BP Sys/Morgan Pulse Ox Last 24 Hr 98 F-99.4 F 76-90 14-18 91-126/53-65 100-100 Intake & Output 03/07/18 03/08/18 03/09/18 03/10/18 23:59 23:59 23:59 23:59 Output Total 120 Balance -120 Weight 62.051 kg Gen: extubated Heart: RRR Lung: scattered rhonchi Abd: soft, nontender Ext: no edema CBC, BMP 03/10/18 02:58 03/10/18 02:58 Active Medications Albuterol Sulfate (Ventolin 0.083% Nebulizer Soln -) 1 amp NEB Q4H PRN PRN Reason: SHORT OF BREATH/WHEEZING Last Admin: 03/10/18 04:37 Dose: 1 amp Albuterol/Ipratropium (Duoneb -) 1 amp NEB RQID TA Last Admin: 03/10/18 08:10 Dose: 1 amp Budesonide/Formoterol Fumarate (Symbicort 160/4.5mcg -) 2 puff IH BID TA Chlorhexidine Gluconate (Hibiclens For Decolonization -) 1 applic TP HS TA Heparin Sodium (Porcine) (Heparin -) 5,000 unit SQ TID TA Propofol (Diprivan -) 1,000,000 mcg in 100 mls @ 1.891 mls/hr IVPB TITR TA; Protocol Last Titration: 03/10/18 10:49 Dose: 0 mcg/kg/min, 0 mls/hr Midazolam HCl 100 mg/ Sodium (Chloride) 100 mls @ 1 mls/hr IVPB TITR TA; Protocol Last Admin: 03/10/18 05:30 Dose: Not Given Ceftriaxone Sodium 1 gm/ (Dextrose) 50 mls @ 100 mls/hr IVPB DAILY TA Last Admin: 03/10/18 10:23 Dose: 100 mls/hr Azithromycin (Zithromax 500mg Ivpb (Pre-Docked)) 500 mg in 250 mls @ 250 mls/ hr IVPB DAILY TA Vancomycin HCl (Vancomycin (Pre-Docked)) 1,000 mg in 250 mls @ 166.667 mls/hr IVPB Q12H TA; Protocol Methylprednisolone Sodium Succinate (Solu-Medrol -) 40 mg IVPB Q6H-IV TA Last Admin: 03/10/18 09:50 Dose: 40 mg Mupirocin (Bactroban Ointment (For Decolonization) -) 1 applic NS BID TA Stop: 03/15/18 09:59 ASSESSMENT AND PLAN: Acute on Chronic Hypoxic and Hypercapneic Respiratory Failure Acute COPD Exacerbation h/o Atypical Mycobacterium r/o Pneumonia Pulmonary HTN LV Diastolic Dysfunction Thrombocytopenia - pt extubated - continue medrol - inhaled bronchodilators standing and PRN - continue antibiotics - f/u cultures - O2 to keep Spo2 >90% - DVT prophylaxis - can likely transfer to floor in AM critical care time spent in reviewing chart, evaluating patient and formulating plan 35 min
[2018-03-10] MEDS ORDERED: ALPRAZolam 0.25 MG TABLET PO ONE (13:59)
--- NOTE | 2018-03-10 14:08 | PN ---
Physical Exam: SUBJECTIVE: Patient seen and examined at bedside. Successfully extubated and started on 40% venti-mask, saturating well. Does not recall how he ended up in the hospital. Residual dyspnea. OBJECTIVE: Vital Signs Period Temp Pulse Resp BP Sys/Morgan Pulse Ox Last 24 Hr 98 F-99.4 F 76-90 14-18 91-126/53-65 100-100 GENERAL: A&Ox3, NAD HEAD: NC/AT EYES: Unequal pupils L>R, at baseline per patient, reactive to light and accommodation b/l EARS, NOSE, THROAT: Moist mucous membranes. NECK: supple without JVD LUNGS: diffusely coarse breath sounds, end expiratory wheezes HEART: Regular rate and rhythm, normal S1 and S2 ABDOMEN: Soft, not distended, normoactive bowel sounds, no guarding, no rebound , no masses. MUSCULOSKELETAL: No bony deformities or tenderness. UPPER EXTREMITIES: 2+ pulses, warm, well-perfused. LOWER EXTREMITIES: 2+ pulses, warm, well-perfused. No peripheral edema. NEUROLOGICAL: energy technician, motor, sensory systems without focal deficit SKIN: Warm, dry Laboratory Results - last 24 hr 03/10/18 03/10/18 03/10/18 02:58 02:58 03:50 WBC 5.9 RBC 4.08 Hgb 12.2 Hct 37.7 MCV 92.5 MCH 30.0 MCHC 32.4 RDW 14.4 Plt Count 87 L MPV 8.5 Absolute Neuts (auto) 4.8 Total Counted 100 Neutrophils % 82.1 Neutrophils % (Manual) 80.0 Band Neutrophils % 3.0 Lymphocytes % 9.5 D Lymphocytes % (Manual) 8.0 D Monocytes % 4.0 Monocytes % (Manual) 5 D Eosinophils % 4.1 D Eosinophils % (Manual) 4.0 D Basophils % 0.3 Nucleated RBC % 0 Hypochromia 1+ Platelet Estimate Decreased Platelet Comment No clumping noted Anisocytosis 1+ Anticoagulation Therapy No Result Required. Puncture Site Right radial ABG pH 7.31 L ABG pCO2 at Pt Temp 75.3 H* D ABG pO2 at Pt Temp 128.0 H D ABG HCO3 37.1 H ABG O2 Sat (Measured) 98.8 ABG O2 Content 16.9 ABG Base Excess 8.6 H Pardeep Test Positive Carboxyhemoglobin Methemoglobin O2 Delivery Device No Result Required. Oxygen Flow Rate 50% Vent Mode No Result Required. Vent Rate No Result Required. Mechanical Rate No Result Required. PEEP 5.0 Pressure Support Vent 400 Sodium 142 Potassium 3.6 Chloride 98 Carbon Dioxide 41 H Anion Gap 3 L BUN 16 Creatinine 0.6 Creat Clearance w eGFR > 60 Random Glucose 118 H Calcium 8.5 Total Bilirubin 0.7 AST 13 L ALT 21 Alkaline Phosphatase 73 Creatine Kinase 37 Troponin I < 0.02 B-Natriuretic Peptide 99.2 Total Protein 6.2 L Albumin 3.1 L Urine Color Urine Appearance Urine pH Ur Specific [place] Urine Protein Urine Glucose (UA) Urine Ketones Urine Blood Urine Nitrite Urine Bilirubin Urine Urobilinogen Ur Leukocyte Esterase Urine WBC (Auto) Urine RBC (Auto) Urine Mucus HIV 1&2 Antibody Screen HIV P24 Antigen 03/10/18 03/10/18 03/10/18 03:50 04:16 09:15 WBC RBC Hgb Hct MCV MCH MCHC RDW Plt Count MPV Absolute Neuts (auto) Total Counted Neutrophils % Neutrophils % (Manual) Band Neutrophils % Lymphocytes % Lymphocytes % (Manual) Monocytes % Monocytes % (Manual) Eosinophils % Eosinophils % (Manual) Basophils % Nucleated RBC % Hypochromia Platelet Estimate Platelet Comment Anisocytosis Anticoagulation Therapy Puncture Site ABG pH ABG pCO2 at Pt Temp ABG pO2 at Pt Temp ABG HCO3 ABG O2 Sat (Measured) ABG O2 Content ABG Base Excess Pardeep Test Carboxyhemoglobin 1.4 Methemoglobin 0.3 L O2 Delivery Device Oxygen Flow Rate Vent Mode Vent Rate Mechanical Rate PEEP Pressure Support Vent Sodium Potassium Chloride Carbon Dioxide Anion Gap BUN Creatinine Creat Clearance w eGFR Random Glucose Calcium Total Bilirubin AST ALT Alkaline Phosphatase Creatine Kinase 25 L Troponin I 0.03 B-Natriuretic Peptide Total Protein Albumin Urine Color Yellow Urine Appearance Clear Urine pH 5.0 D Ur Specific [place] 1.016 Urine Protein 1+ H Urine Glucose (UA) Negative Urine Ketones Trace H Urine Blood 1+ H Urine Nitrite Negative Urine Bilirubin Negative Urine Urobilinogen Negative Ur Leukocyte Esterase Negative Urine WBC (Auto) 7 Urine RBC (Auto) 25 Urine Mucus Rare HIV 1&2 Antibody Screen HIV P24 Antigen 03/10/18 09:15 WBC RBC Hgb Hct MCV MCH MCHC RDW Plt Count MPV Absolute Neuts (auto) Total Counted Neutrophils % Neutrophils % (Manual) Band Neutrophils % Lymphocytes % Lymphocytes % (Manual) Monocytes % Monocytes % (Manual) Eosinophils % Eosinophils % (Manual) Basophils % Nucleated RBC % Hypochromia Platelet Estimate Platelet Comment Anisocytosis Anticoagulation Therapy Puncture Site ABG pH ABG pCO2 at Pt Temp ABG pO2 at Pt Temp ABG HCO3 ABG O2 Sat (Measured) ABG O2 Content ABG Base Excess Pardeep Test Carboxyhemoglobin Methemoglobin O2 Delivery Device Oxygen Flow Rate Vent Mode Vent Rate Mechanical Rate PEEP Pressure Support Vent Sodium Potassium Chloride Carbon Dioxide Anion Gap BUN Creatinine Creat Clearance w eGFR Random Glucose Calcium Total Bilirubin AST ALT Alkaline Phosphatase Creatine Kinase Troponin I B-Natriuretic Peptide Total Protein Albumin Urine Color Urine Appearance Urine pH Ur Specific [place] Urine Protein Urine Glucose (UA) Urine Ketones Urine Blood Urine Nitrite Urine Bilirubin Urine Urobilinogen Ur Leukocyte Esterase Urine WBC (Auto) Urine RBC (Auto) Urine Mucus HIV 1&2 Antibody Screen Negative HIV P24 Antigen Negative Active Medications Generic Name Dose Route Start Last Admin Trade Name Freq PRN Reason Stop Dose Admin Albuterol Sulfate 1 amp 03/10/18 03:56 03/10/18 04:37 Ventolin 0.083% Nebulizer Soln - NEB 1 amp Q4H PRN Administration SHORT OF BREATH/WHEEZING Albuterol/Ipratropium 1 amp 03/10/18 08:00 03/10/18 08:10 Duoneb - NEB 1 amp RQID TA Administration Alprazolam 0.25 mg 03/10/18 13:59 Xanax - PO 03/10/18 14:00 ONCE ONE Budesonide/Formoterol Fumarate 2 puff 03/10/18 10:00 Symbicort 160/4.5mcg - IH BID TA Chlorhexidine Gluconate 1 applic 03/10/18 22:00 Hibiclens For Decolonization - TP HS TA Heparin Sodium (Porcine) 5,000 unit 03/10/18 14:00 Heparin - SQ TID TA Propofol 1,000,000 mcg in 100 mls @ 1.891 mls/hr 03/10/18 03:00 03/10/18 10: 49 Diprivan - IVPB 0 mcg/kg/min TITR TA 0 mls/hr Titration Protocol 5 MCG/KG/MIN Midazolam HCl 100 mg/ Sodium 100 mls @ 1 mls/hr 03/10/18 04:15 03/10/18 05:30 Chloride IVPB Not Given TITR TA Protocol 1 MG/HR Ceftriaxone Sodium 1 gm/ 50 mls @ 100 mls/hr 03/10/18 10:00 03/10/18 10:23 Dextrose IVPB 100 mls/hr DAILY TA Administration Azithromycin 500 mg in 250 mls @ 250 mls/hr 03/10/18 11:00 Zithromax 500mg Ivpb (Pre-Docked) IVPB DAILY TA Vancomycin HCl 1,000 mg in 250 mls @ 166.667 mls/hr 03/10/18 11:00 Vancomycin (Pre-Docked) IVPB Q12H TA Protocol Methylprednisolone Sodium Succinate 40 mg 03/10/18 04:00 03/10/18 09:50 Solu-Medrol - IVPB 40 mg Q6H-IV TA Administration Mupirocin 1 applic 03/10/18 10:00 Bactroban Ointment (For Decolonization) - NS 03/15/18 09:59 BID TA ASSESSMENT/PLAN: 67 y/o M w/ PMHx 2L O2 dependant COPD, pulm htn, ILD, CHF, chronic b/l apical lesions monitored with serial CT, BIBEMS s/p on site intubation. #Pulm -Acute hypercapnic respiratory failure in setting on O2 dependant COPD and ILD -succesfully extubated, on 40% Venti mask -medrol 40q6 -duonebs standing, albuterol PRN #ID -azithromycin/ceftriaxone -blood/sputum Cx, urine antigens pending #Cardiac -CHF stable, no signs of overload -resume home ASA/Statin/Lasix -was mildly hypotensive, corrected with 1L LR bolus #FEN -no IVF -monitor BMP -regular diet #PPx -DVT: heparin subq -GI: not indicated at this time #dispo -continue to monitor in ICU Visit type - Emergency Visit Emergency Visit: No - New Patient This patient is new to me today: Yes Date on this admission: 03/10/18 - Critical Care Critical Care patient: Yes Total Critical Care Time (in minutes): 40 Critical Care Statement: The care of this patient involved high complexity decision making to prevent further life threatening deterioration of the patient 's condition and/or to evaluate & treat vital organ system(s) failure or risk of failure.
[2018-03-10] MEDS: AZITHROMYCIN IVPB 500 MG/250 ML BAG IVPB SCH (15:11)
[2018-03-10] MEDS: FUROSEMIDE 20 MG TABLET (FP) PO SCH (15:52)
[2018-03-10] MEDS: HEPARIN NA (PORCINE) 5,000 UNITS/ML 1ML VIAL SQ SCH ×2 (15:52→22:30)
[2018-03-10] MEDS: ATORVASTATIN CA 10 MG TABLET (FP) PO SCH (15:52)
[2018-03-10] MEDS: ASPIRIN 81 MG CHEWABLE TABLETS PO SCH (15:52)
[2018-03-10] MEDS: MUPIROCIN 2% TOPICAL OINTMENT FOR DECOLONIZATION NS SCH ×2 (15:53→23:16)
[2018-03-10] MEDS: BUDESONIDE/FORMETEROL FUMARATE 160/4.5 mcg INHALER IH SCH ×2 (18:15→22:30)
[2018-03-10] MEDS ORDERED: PT OWN MED DRAWER 7, Y5N ONE (21:59)
[2018-03-10] MEDS ORDERED: ATORVASTATIN CA 10 MG TABLET (FP) PO SCH (22:00)
[2018-03-10] MEDS: CHLORHEXIDINE GLUCONATE 4% CLEANSER FOR DECOLONIZATION TP SCH (23:16)
[2018-03-11] MEDS: methylPREDNISolone NA SUCC 40 MG/1 ML VIAL IVPB SCH ×3 (02:40→21:22)
[2018-03-11 06:08] LABS: BASO % 0.1 % (0-2.0); HEMATOCRIT 31.9 % (35.4-49); HEMOGLOBIN 10.2 GM/dL (11.7-16.9); LYMPH % 2.7 % (8-40); MCH 29.2 pg (25.7-33.7); MCHC 31.9 g/dl (32.0-35.9); MEAN CELL VOLUME 91.3 fl (80-96); MEAN PLT VOLUME 9.5 fl (7.5-11.1); MONO % 2.5 % (3.8-10.2); NEUT % 94.7 % (42.8-82.8); PLATELET COUNT 91 K/MM3 (134-434); RDW 14.4 % (11.9-15.9); WHITE BLOOD COUNT 6.3 K/mm3 (4.0-10.0)
[2018-03-11 06:30] LABS: ANION GAP 4 MMOL/L (8-16); BLOOD UREA NITROGEN 16 mg/dL (7-18); CALCIUM 8.8 mg/dL (8.5-10.1); CHLORIDE 101 mmol/L (98-107); CO2 39 mmol/L (21-32); CREATININE 0.6 mg/dL (0.55-1.3); GLUCOSE,RANDOM 139 mg/dL (74-106); MAGNESIUM 2.3 mg/dL (1.8-2.4); PHOSPHOROUS 2.4 mg/dL (2.5-4.9); POTASSIUM 4.7 mmol/L (3.5-5.1); SODIUM 144 mmol/L (136-145)
[2018-03-11] MEDS: HEPARIN NA (PORCINE) 5,000 UNITS/ML 1ML VIAL SQ SCH (06:50)
[2018-03-11] MEDS: MIDAZOLAM 100 MG in SODIUM CHLORIDE 100 ML IVPB SCH (06:50)
[2018-03-11] MEDS: ALBUTEROL SO4 2.5/IPRATROPIUM 0.5 INH SOL 3 ML VIAL.NEB. NEB SCH ×4 (08:00→20:01)
--- NOTE | 2018-03-11 08:40 | PN ---
Progress Note, Physician - Current Medication List Current Medications: Active Medications Albuterol Sulfate (Ventolin 0.083% Nebulizer Soln -) 1 amp NEB Q4H PRN PRN Reason: SHORT OF BREATH/WHEEZING Last Admin: 03/10/18 04:37 Dose: 1 amp Albuterol/Ipratropium (Duoneb -) 1 amp NEB RQID [facility] Last Admin: 03/10/18 20:38 Dose: 1 amp Aspirin (Asa -) 81 mg PO DAILY [facility] Last Admin: 03/10/18 15:52 Dose: 81 mg Atorvastatin Calcium (Lipitor -) 10 mg PO HS [facility] Last Admin: 03/10/18 15:52 Dose: 10 mg Budesonide/Formoterol Fumarate (Symbicort 160/4.5mcg -) 2 puff IH BID [facility] Last Admin: 03/10/18 22:30 Dose: 2 puff Chlorhexidine Gluconate (Hibiclens For Decolonization -) 1 applic TP HS [facility] Last Admin: 03/10/18 23:16 Dose: 1 applic Furosemide (Lasix -) 20 mg PO DAILY [facility] Last Admin: 03/10/18 15:52 Dose: 20 mg Heparin Sodium (Porcine) (Heparin -) 5,000 unit SQ TID [facility] Last Admin: 03/11/18 06:50 Dose: 5,000 unit Midazolam HCl 100 mg/ Sodium (Chloride) 100 mls @ 1 mls/hr IVPB TITR [facility]; Protocol Last Admin: 03/11/18 06:50 Dose: Not Given Ceftriaxone Sodium 1 gm/ (Dextrose) 50 mls @ 100 mls/hr IVPB DAILY [facility] Last Admin: 03/10/18 10:23 Dose: 100 mls/hr Azithromycin (Zithromax 500mg Ivpb (Pre-Docked)) 500 mg in 250 mls @ 250 mls/ hr IVPB DAILY [facility] Last Admin: 03/10/18 15:11 Dose: Not Given Vancomycin HCl (Vancomycin (Pre-Docked)) 1,000 mg in 250 mls @ 166.667 mls/hr IVPB Q12H [facility]; Protocol Last Admin: 03/10/18 23:17 Dose: 166.667 mls/hr Methylprednisolone Sodium Succinate (Solu-Medrol -) 40 mg IVPB BID [facility] Mupirocin (Bactroban Ointment (For Decolonization) -) 1 applic NS BID [facility] Stop: 03/15/18 09:59 Last Admin: 03/10/18 23:16 Dose: 1 applic - Objective Vital Signs: Vital Signs Temperature 97.7 F 03/11/18 06:00 Pulse Rate 79 03/11/18 06:00 Respiratory Rate 20 03/11/18 06:00 Blood Pressure 101/57 L 03/11/18 06:00 O2 Sat by Pulse Oximetry (%) 93 L 03/10/18 22:00 Cardiovascular: Yes: Regular Rate and Rhythm Respiratory: Yes: Diminished, On Nasal O2, Rhonchi Gastrointestinal: Yes: Normal Bowel Sounds, Soft Labs: CBC, BMP 03/11/18 05:30 03/11/18 05:30 Problem List - Problems (1) Respiratory failure with hypercapnia Assessment/Plan: - Extubated - ICU - duoneb QID - pulmonary consult - IV Steroids Code(s): J96.92 - RESPIRATORY FAILURE, UNSPECIFIED WITH HYPERCAPNIA Qualifiers: Chronicity: acute on chronic Qualified Code(s): J96.22 - Acute and chronic respiratory failure with hypercapnia (2) COPD (chronic obstructive pulmonary disease) Assessment/Plan: -IV Steroids -Nebs -Pulm Consult Code(s): J44.9 - CHRONIC OBSTRUCTIVE PULMONARY DISEASE, UNSPECIFIED Qualifiers: COPD type: unspecified COPD Qualified Code(s): J44.9 - Chronic obstructive pulmonary disease, unspecified (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 Assessment/Plan: -Xanax prn once off sedation Code(s): F06.4 - ANXIETY DISORDER DUE TO KNOWN PHYSIOLOGICAL CONDITION (4) Diastolic dysfunction Assessment/Plan: -Lasix prn Code(s): I51.9 - HEART DISEASE, UNSPECIFIED (5) MRSA (methicillin resistant Staphylococcus aureus) colonization Assessment/Plan: -Per protocol Code(s): Z22.322 - CARRIER OR SUSPECTED CARRIER OF METHICILLIN RESIS STAPH (6) Pulmonary cavitary lesion Assessment/Plan: -Treated for Mac in past Code(s): J98.4 - OTHER DISORDERS OF LUNG (7) Pulmonary nodule Assessment/Plan: -Recent ct increased in size -outpatient pet scan Code(s): R91.1 - SOLITARY PULMONARY NODULE
[2018-03-11] MEDS ORDERED: cefTRIAXone SODIUM 1 GM VIAL ONE (10:08)
[2018-03-11] MEDS ORDERED: DEXTROSE 5%-WATER - 50 ML IVPB ONE (10:08)
[2018-03-11] MEDS: CEFTRIAXONE 1 GM in DEXTROSE 5%-WATER - 50 ML IVPB SCH (10:11)
[2018-03-11] MEDS: ASPIRIN 81 MG CHEWABLE TABLETS PO SCH (10:11)
[2018-03-11] MEDS: FUROSEMIDE 20 MG TABLET (FP) PO SCH (10:11)
[2018-03-11] MEDS: VANCOMYCIN 1 GRAM (PRE-DOCKED) 1,000 MG/250 ML BAG IVPB SCH (10:12)
[2018-03-11] MEDS: MUPIROCIN 2% TOPICAL OINTMENT FOR DECOLONIZATION NS SCH (10:13)
[2018-03-11] MEDS: BUDESONIDE/FORMETEROL FUMARATE 160/4.5 mcg INHALER IH SCH ×2 (10:59→21:33)
[2018-03-11] MEDS ORDERED: ALPRAZolam 0.25 MG TABLET PO PRN (12:30)
[2018-03-11] MEDS ORDERED: dilTIAZem HCL 50 MG/10 ML - 10 ML VIAL IVPUSH ONE ×2 (12:56→13:04)
[2018-03-11] MEDS ORDERED: dilTIAZem HCL 125 MG/25 ML - 25 ML VIAL ONE ×2 (12:57→13:30)
[2018-03-11] MEDS ORDERED: ALPRAZolam 0.25 MG TABLET PO ONE ×2 (12:58→23:06)
[2018-03-11] MEDS: AZITHROMYCIN IVPB 500 MG/250 ML BAG IVPB SCH (13:18)
[2018-03-11] MEDS ORDERED: dilTIAZem HCL 50 MG/10 ML - 10 ML VIAL ONE (13:30)
[2018-03-11] MEDS ORDERED: HEPARIN INFUSION - 25,000 UNITS/500 ML INFUS.BAG IVPB SCH (13:45)
[2018-03-11] MEDS ORDERED: HEPARIN NA (PORCINE) 5,000 UNITS/ML 1ML VIAL IVPUSH PRN ×2 (13:45)
--- NOTE | 2018-03-11 13:50 | PN ---
Progress Note (short form) - Note Progress Note: extubated yesterday tachycardic asymptomatic reports feeling anxious at home and dialed up his oxygen developed CO2 retention and required intubation now awake and alert no chest pain no sob no fevers at home Vital Signs Period Temp Pulse Resp BP Sys/Morgan Pulse Ox Last 24 Hr 97.6 F-98.7 F 70-122 17-96 101-148/55-96 93-96 cor-rrr tachycardic lungs decreased bs at bases abd soft,nt ext no edema CBC, BMP 03/11/18 05:30 03/11/18 05:30 Microbiology 03/10/18 09:15 Blood - Peripheral Venous Blood Culture - Preliminary NO GROWTH OBTAINED AFTER 24 HOURS, INCUBATION TO CONTINUE FOR 4 DAYS. 03/10/18 09:30 Blood - Peripheral Venous Blood Culture - Preliminary NO GROWTH OBTAINED AFTER 24 HOURS, INCUBATION TO CONTINUE FOR 4 DAYS. 03/10/18 04:16 Urine - Urine Bowling Urine Culture - Final NO GROWTH OBTAINED 03/10/18 13:10 Urine For Antigen Detection Legionella Antigen - Final 03/10/18 13:10 Urine For Antigen Detection Streptococcus pneumoniae Antigen (M - Final a/p respiratory failure copd exacerbation history atypical mycobacteria thrombocytopenia- f/u cbc d/c vancomycin rocephin/zithromax for now will d/w icu team Problem List - Problems (1) Acute respiratory distress Code(s): J80 - ACUTE RESPIRATORY DISTRESS SYNDROME (2) COPD exacerbation Code(s): J44.1 - CHRONIC OBSTRUCTIVE PULMONARY DISEASE W (ACUTE) EXACERBATION (3) Mycobacterial disease, pulmonary Code(s): A31.0 - PULMONARY MYCOBACTERIAL INFECTION (4) MRSA (methicillin resistant Staphylococcus aureus) colonization Code(s): Z22.322 - CARRIER OR SUSPECTED CARRIER OF METHICILLIN RESIS STAPH
[2018-03-11] MEDS ORDERED: METOPROLOL TARTRATE 5 MG/5 ML VIAL IVPUSH ONE (13:51)
--- NOTE | 2018-03-11 13:57 | CON.CARD ---
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 He denies fever, chills, chest pain, orthopnea, PND or LE edema, sxs improving with treatment for COPD flare. - History Source History Provided By: Patient Limitations to Obtaining History: No Limitations - Past Medical History Cardio/Vascular: Yes: CAD, CHF, HTN, Hyperlipdemia, Pulmonary Hypertension Pulmonary: Yes: COPD (home oxygen), O2 Dependent, Previously Intubated ( intubated one time several years ago for respiratory failure), Other ( Interstitial lung disease) Gastrointestinal: Yes: GERD, Hiatal Hernia Renal/: Yes: Renal Calculi, UTI Additional Medical History: Inguinal hernia. 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 History of Recent Travel: No Home Medications - Allergies Allergies/Adverse Reactions: Allergies Allergy/AdvReac Type Severity Reaction Status Date / Time moxifloxacin HCl Allergy Severe Verified 03/10/18 02:58 [From Avelox] aclidinium bromide Allergy Verified 03/10/18 02:58 [From Tudorza Pressair] shellfish derived Allergy Verified 03/10/18 02:58 - Home Medications Home Medications: Ambulatory Orders Albuterol Sulfate Inhaler - [Ventolin HFA Inhaler -] 2 inh PO Q4H 02/08/14 Arformoterol Tartrate [Brovana] 15 mcg IH BID 02/08/14 Aspirin [ASA -] 81 mg PO DAILY 02/08/14 Tamsulosin HCl [Flomax -] 0.4 mg PO DAILY 02/08/14 Tiotropium [place] [Spiriva] 1 inh PO DAILY 02/08/14 Beclomethasone Dipropionate [Qvar] 8.7 gm IH DAILY 01/09/16 Atorvastatin Ca [Lipitor] 10 mg PO DAILY 08/30/16 Polyethylene Glycol 3350 [Miralax 119 gm Btl -] 17 gm PO DAILY PRN #1 bottle 10/15 Ferrous Sulfate [Feosol] 325 mg PO BID ud 05/06/17 Furosemide [Lasix -] 20 mg PO DAILY tablet 05/06/17 Acetaminophen [Tylenol .Regular Strength -] 650 mg PO Q4H PRN tablet 02/20/18 Albuterol 0.083% Nebulizer Portia [Ventolin 0.083% Nebulizer Soln -] 1 amp NEB Q4H PRN amp 02/20/18 Alprazolam [Xanax] 0.25 mg PO BID #60 tablet MDD 2 02/20/18 Magnesium Hydrox 2400MG/30Ml [Milk of Magnesia -] 30 ml PO DAILY PRN #1 bottle 02/20/18 Prednisone 10 mg PO ASDIR #65 tablet 02/20/18 Sennosides [Senna -] 2 tab PO HS PRN #60 tablet 02/20/18 Albuterol 0.083% Nebulizer Portia [Ventolin 0.083% Nebulizer Soln -] 1 neb NEB Q4H PRN #75 vial 03/06/18 Family Disease History - Family Disease History Family History: Unremarkable Review of Systems - Review of Systems Constitutional: reports: No Symptoms Eyes: reports: No Symptoms HENT: reports: No Symptoms Cardiovascular: reports: Shortness of Breath Respiratory: reports: Cough, SOB, Wheezing Gastrointestinal: reports: No Symptoms Genitourinary: reports: No Symptoms Musculoskeletal: reports: No Symptoms Integumentary: reports: No Symptoms Endocrine: reports: No Symptoms Vital Signs: Vital Signs Temperature 97.6 F 03/11/18 10:00 Pulse Rate 74 03/11/18 13:37 Respiratory Rate 20 03/11/18 13:37 Blood Pressure 130/96 03/11/18 13:37 O2 Sat by Pulse Oximetry (%) 96 03/11/18 09:00 Constitutional: Yes: No Distress, Calm, Thin Neck: Yes: Supple Respiratory: Yes: Regular, Diminished, On Nasal O2 Gastrointestinal: Yes: Normal Bowel Sounds, Soft Cardiovascular: Yes: Tachycardia, Pulse Irregular JVD: No Carotid Bruit: No Heart Sounds: Yes: S1, S2 Edema: No - Other Data Labs, Other Data: CBC, BMP 03/11/18 05:30 03/11/18 05:30 Problem List - Problems (1) Paroxysmal atrial fibrillation with rapid ventricular response Code(s): I48.0 - PAROXYSMAL ATRIAL FIBRILLATION (2) Acute and chronic respiratory failure with hypercapnia Code(s): J96.22 - ACUTE AND CHRONIC RESPIRATORY FAILURE WITH HYPERCAPNIA (3) Anemia Code(s): D64.9 - ANEMIA, UNSPECIFIED Qualifiers: Anemia type: unspecified type Qualified Code(s): D64.9 - Anemia, unspecified (4) COPD exacerbation Code(s): J44.1 - CHRONIC OBSTRUCTIVE PULMONARY DISEASE W (ACUTE) EXACERBATION (5) Diastolic dysfunction Code(s): I51.9 - HEART DISEASE, UNSPECIFIED (6) Hyperlipidemia Code(s): E78.5 - HYPERLIPIDEMIA, UNSPECIFIED Qualifiers: Hyperlipidemia type: pure hypercholesterolemia Qualified Code(s): E78.00 - Pure hypercholesterolemia, unspecified; E78.0 - Pure hypercholesterolemia (7) Mycobacteria, atypical Code(s): A31.9 - MYCOBACTERIAL INFECTION, UNSPECIFIED (8) Pulmonary nodule Code(s): R91.1 - SOLITARY PULMONARY NODULE Assessment/Plan 03/11/2018 Echo: Normal biventricular size and fxn, tr TR 1. Paroxysmal atrial fibrillation with RVR [id number] 2. Acute on Chronic Hypoxic and Hypercapneic Respiratory Failure referable to 3. Acute exacerbation of advanced chronic obstructive pulmonary disease on home oxygen therapy with Pulmonary HTN, resolving 4. CAD non-obstructive coronary artery disease angina pectoris, stable 5. Diastolic LV dysfunction with class 0-I NYHA classification LV failure, compensated/euvolemic 6. HTN 7. Hypercholesterolemia 8. Anemia 9. RUL mass PLAN: 1. Cardizem gtt to maintain HR<110 bpm 2. Complete empiric antibiotics course as per ID 3. IV steroid taper, bronchodilators, O2 to keep SpO2 >90% as per the pulmonary team, PET scan as outpatient 4. Given elevated risk score, d/c ASA, change heparin gtt to Eliquis 5 bid with monitor hemoglobin 5. Continue Lipitor 10 qhs and Lasix 20 qd 6. Addition of ACEI or ARBS hemodynamics permitting 7. DVT prophylaxis 8. Thank you for consultative opportunity
--- NOTE | 2018-03-11 14:06 | PN ---
Physical Exam: SUBJECTIVE: Patient seen and examined at bedside. Maintaining saturation on 3LNC. However, developed new onset Afib during the AM. OBJECTIVE: Vital Signs Period Temp Pulse Resp BP Sys/Morgan Pulse Ox Last 24 Hr 97.6 F-98.7 F 70-122 17-96 101-148/55-96 93-96 GENERAL: A&Ox3, NAD HEAD: NC/AT EYES: Unequal pupils L>R, at baseline per patient, reactive to light and accommodation b/l EARS, NOSE, THROAT: Moist mucous membranes. NECK: supple without JVD LUNGS: diffusely coarse breath sounds, end expiratory wheezes HEART: Tachyarrhythmia, irregularly irregular ABDOMEN: Soft, not distended, normoactive bowel sounds, no guarding, no rebound , no masses. MUSCULOSKELETAL: No bony deformities or tenderness. EXTREMITIES: 2+ pulses, warm, well-perfused. No peripheral edema. NEUROLOGICAL: director account management, motor, sensory systems without focal deficit SKIN: Warm, dry Laboratory Results - last 24 hr 03/11/18 03/11/18 05:30 05:30 WBC 6.3 RBC 3.50 L Hgb 10.2 L Hct 31.9 L D MCV 91.3 MCH 29.2 MCHC 31.9 L RDW 14.4 Plt Count 91 L MPV 9.5 D Absolute Neuts (auto) 5.9 Neutrophils % 94.7 H Lymphocytes % 2.7 L D Monocytes % 2.5 L Eosinophils % 0.0 D Basophils % 0.1 Nucleated RBC % 0 Sodium 144 Potassium 4.7 Chloride 101 Carbon Dioxide 39 H Anion Gap 4 L BUN 16 Creatinine 0.6 Creat Clearance w eGFR > 60 Random Glucose 139 H Calcium 8.8 Phosphorus 2.4 L Magnesium 2.3 Active Medications Generic Name Dose Route Start Last Admin Trade Name Freq PRN Reason Stop Dose Admin Albuterol Sulfate 1 amp 03/10/18 03:56 03/10/18 04:37 Ventolin 0.083% Nebulizer Soln - NEB 1 amp Q4H PRN Administration SHORT OF BREATH/WHEEZING Albuterol/Ipratropium 1 amp 03/10/18 08:00 03/11/18 11:38 Duoneb - NEB 1 amp RQID TA Administration Alprazolam 0.25 mg 03/11/18 12:30 03/11/18 12:31 Xanax - PO 0.25 mg BID PRN Administration FOR ANXIETY Aspirin 81 mg 03/10/18 14:30 03/11/18 10:11 Asa - PO 81 mg DAILY TA Administration Atorvastatin Calcium 10 mg 03/10/18 14:45 03/10/18 15:52 Lipitor - PO 10 mg HS TA Administration Budesonide/Formoterol Fumarate 2 puff 03/10/18 10:00 03/11/18 10:59 Symbicort 160/4.5mcg - IH 2 puff BID TA Administration Chlorhexidine Gluconate 1 applic 03/10/18 22:00 03/10/18 23:16 Hibiclens For Decolonization - TP 1 applic HS TA Administration Furosemide 20 mg 03/10/18 14:30 03/11/18 10:11 Lasix - PO 20 mg DAILY TA Administration Heparin Sodium (Porcine) 1,000 unit 03/11/18 13:45 Heparin - IVPUSH PRN PRN Heparin Heparin Sodium (Porcine) 5,000 unit 03/11/18 13:45 Heparin - IVPUSH PRN PRN Heparin Ceftriaxone Sodium 1 gm/ 50 mls @ 100 mls/hr 03/10/18 10:00 03/11/18 10:11 Dextrose IVPB 100 mls/hr DAILY TA Administration Azithromycin 500 mg in 250 mls @ 250 mls/hr 03/10/18 11:00 03/11/18 13:18 Zithromax 500mg Ivpb (Pre-Docked) IVPB 250 mls/hr DAILY TA Administration Diltiazem HCl 125 mg/ Sodium 125 mls @ 5 mls/hr 03/11/18 14:15 Chloride IVPB TITR TA Protocol 5 MG/HR Heparin Sodium/Dextrose 25,000 units in 500 mls @ 16 mls/hr 03/11/18 13:45 Heparin Infusion - IVPB TITR TA Protocol 800 UNITS/HR Lactobacillus Acidophilus 1 tab 03/11/18 12:45 Bacid - PO DAILY TA Methylprednisolone Sodium Succinate 40 mg 03/11/18 10:00 03/11/18 10:12 Solu-Medrol - IVPB 40 mg BID TA Administration Mupirocin 1 applic 03/10/18 10:00 03/11/18 10:13 Bactroban Ointment (For Decolonization) - NS 03/15/18 09:59 1 applic BID TA Administration ASSESSMENT/PLAN: 67 y/o M w/ PMHx 2L O2 dependant COPD, pulm htn, ILD, CHF, chronic b/l apical lesions monitored with serial CT, BIBEMS s/p on site intubation. #Cardiac -CHF stable, no signs of overload -home ASA/Statin/Lasix -developed Afib/RVR during AM, tachy to 170s, did not resolve with two pushes of Diltiazem 5 -started dilt gtt, heparin gtt -cardiology consulted, awaiting recs -echo pending #Pulm -Acute hypercapnic respiratory failure in setting of O2 dependant COPD and ILD -maintaining saturation on 3LNC -medrol 40 BID -duonebs standing, albuterol PRN, symbicort #ID -azithromycin/ceftriaxone, ID on board -blood/sputum Cx, urine antigens pending #psych -Xanax 0.25 BID #FEN -no IVF -monitor BMP -regular diet #PPx -DVT: heparin gtt -GI: not indicated at this time #dispo -continue to monitor in ICU Visit type - Emergency Visit Emergency Visit: No - New Patient This patient is new to me today: No - Critical Care Critical Care patient: Yes Total Critical Care Time (in minutes): 40 Critical Care Statement: The care of this patient involved high complexity decision making to prevent further life threatening deterioration of the patient 's condition and/or to evaluate & treat vital organ system(s) failure or risk of failure.
[2018-03-11] MEDS ORDERED: DILTIAZEM INJECTION 125 MG in SODIUM CHLORIDE 100 ML IVPB SCH (14:15)
[2018-03-11 14:18] LABS: ACANTHOCYTES 0; ANISOCYTOSIS 0; HELMET CELLS 0; HOWELL-JOLLY BODIES 0; MACROCYTOSIS 0; OVALOCYTE 0; PLATELET ESTIMATE DECREASED; ROULEAU 0; SICKELED CELLS 0; TARGET CELLS 0; TEAR DROP CELLS 0; TOXIC GRANULATION 0
[2018-03-11 14:38] LABS: INR 0.94 (0.83-1.09); PROTHROMBIN TIME (PATIENT) 11.1 SEC (9.7-13.0)
[2018-03-11 14:41] LABS: ACTIVATED PTT 27.8 SECONDS (25.2-36.5)
--- NOTE | 2018-03-11 15:00 | EKG ---
Test Reason : Blood Pressure : / mmHG Vent. Rate : 144 BPM Atrial Rate : 163 BPM P-R Int : 000 ms QRS Dur : 128 ms QT Int : 320 ms P-R-T Axes : 000 081 007 degrees QTc Int : 495 ms POOR DATA QUALITY, INTERPRETATION MAY BE ADVERSELY AFFECTED ATRIAL FIBRILLATION WITH RAPID VENTRICULAR RESPONSE RIGHT BUNDLE BRANCH BLOCK ABNORMAL ECG WHEN COMPARED WITH ECG OF 10-MAR-2018 02:45, ATRIAL FIBRILLATION HAS REPLACED SINUS RHYTHM VENT. RATE HAS INCREASED BY [address] NOW DEPRESSED IN INFERIOR LEADS ST NOW DEPRESSED IN ANTEROLATERAL LEADS Confirmed by EULALIO INIGUEZ MD ([id number]) on 03/11/2018 3:00:42 PM Referred By: Confirmed By:EULALIO INIGUEZ MD
[2018-03-11] MEDS: LACTOBACILLUS ACIDOPHILUS 1 TABLET PO SCH (15:17)
--- NOTE | 2018-03-11 15:45 | PN ---
Teaching Attending Note Name of Resident: Henrik Wiseman ATTENDING PHYSICIAN STATEMENT I saw and evaluated the patient. I reviewed the resident's note and discussed the case with the resident. I agree with the resident's findings and plan as documented. SUBJECTIVE: Patient seen and examined in the ICU. Now extubated. Awake and responsive. Mildly tachypenic at rest. No CP. Reports anxiety. Noted to have new onset AFib requiring IV Cardizem drip. OBJECTIVE: Intake & Output 03/08/18 03/09/18 03/10/18 03/11/18 23:59 23:59 23:59 23:59 Intake Total 8 Output Total 1740 300 Balance 298 -300 Weight 136 lb 12.8 oz 136 lb 14.4 oz Last Vital Signs Temp Pulse Resp BP Pulse Ox 97.6 F 144 H 20 111/65 96 03/11/18 10:00 03/11/18 14:13 03/11/18 13:37 03/11/18 14:13 03/11/18 09:00 Active Medications Albuterol Sulfate (Ventolin 0.083% Nebulizer Soln -) 1 amp NEB Q4H PRN PRN Reason: SHORT OF BREATH/WHEEZING Last Admin: 03/10/18 04:37 Dose: 1 amp Albuterol/Ipratropium (Duoneb -) 1 amp NEB RQID [facility] Last Admin: 03/11/18 11:38 Dose: 1 amp Alprazolam (Xanax -) 0.25 mg PO BID PRN PRN Reason: FOR ANXIETY Last Admin: 03/11/18 12:31 Dose: 0.25 mg Aspirin (Asa -) 81 mg PO DAILY [facility] Last Admin: 03/11/18 10:11 Dose: 81 mg Atorvastatin Calcium (Lipitor -) 10 mg PO HS [facility] Last Admin: 03/10/18 15:52 Dose: 10 mg Budesonide/Formoterol Fumarate (Symbicort 160/4.5mcg -) 2 puff IH BID [facility] Last Admin: 03/11/18 10:59 Dose: 2 puff Chlorhexidine Gluconate (Hibiclens For Decolonization -) 1 applic TP HS [facility] Last Admin: 03/10/18 23:16 Dose: 1 applic Furosemide (Lasix -) 20 mg PO DAILY [facility] Last Admin: 03/11/18 10:11 Dose: 20 mg Heparin Sodium (Porcine) (Heparin -) 1,000 unit IVPUSH PRN PRN PRN Reason: Heparin Heparin Sodium (Porcine) (Heparin -) 5,000 unit IVPUSH PRN PRN PRN Reason: Heparin Ceftriaxone Sodium 1 gm/ (Dextrose) 50 mls @ 100 mls/hr IVPB DAILY [facility] Last Admin: 03/11/18 10:11 Dose: 100 mls/hr Azithromycin (Zithromax 500mg Ivpb (Pre-Docked)) 500 mg in 250 mls @ 250 mls/ hr IVPB DAILY [facility] Last Admin: 03/11/18 13:18 Dose: 250 mls/hr Diltiazem HCl 125 mg/ Sodium (Chloride) 125 mls @ 5 mls/hr IVPB TITR [facility]; Protocol Last Titration: 03/11/18 14:13 Dose: 10 mg/hr, 10 mls/hr Heparin Sodium/Dextrose (Heparin Infusion -) 25,000 units in 500 mls @ 16 mls/ hr IVPB TITR [facility]; Protocol Last Admin: 03/11/18 15:14 Dose: 800 units/hr, 16 mls/hr Lactobacillus Acidophilus (Bacid -) 1 tab PO DAILY [facility] Last Admin: 03/11/18 15:17 Dose: 1 tab Methylprednisolone Sodium Succinate (Solu-Medrol -) 40 mg IVPB BID [facility] Last Admin: 03/11/18 10:12 Dose: 40 mg Mupirocin (Bactroban Ointment (For Decolonization) -) 1 applic NS BID [facility] Stop: 03/15/18 09:59 Last Admin: 03/11/18 10:13 Dose: 1 applic Gen: Awake and alert, mildly tachypneic at rest, anxious Heart: RRR Lung: scattered rhonchi, no active wheeze Abd: soft, nontender Ext: no edema Laboratory Results - last 24 hr 03/11/18 03/11/18 03/11/18 05:30 05:30 13:15 WBC 6.3 RBC 3.50 L Hgb 10.2 L Hct 31.9 L D MCV 91.3 MCH 29.2 MCHC 31.9 L RDW 14.4 Plt Count 91 L MPV 9.5 D Absolute Neuts (auto) 5.9 Neutrophils % 94.7 H Neutrophils % (Manual) 91.7 H Band Neutrophils % 3.1 Lymphocytes % 2.7 L D Lymphocytes % (Manual) 2.1 L D Monocytes % 2.5 L Monocytes % (Manual) 3 L Eosinophils % 0.0 D Eosinophils % (Manual) 0.0 D Basophils % 0.1 Basophils % (Manual) 0.0 Myelocytes % (Man) 0 D Promyelocytes % (Man) 0 Blast Cells % (Manual) 0 Nucleated RBC % 0 Metamyelocytes 0 Hypochromia 0 Toxic Granulation 0 Dohle Bodies 0 Platelet Estimate Decreased Polychromasia 0 Poikilocytosis 0 Basophilic Stippling 0 Anisocytosis 0 Microcytosis 0 Macrocytosis 0 Spherocytes 0 Sickle Cells 0 Target Cells 0 Tear Drop Cells 0 Ovalocytes 0 Stomatocytes 0 Helmet Cells 0 [place] Bodies 0 [place] Rings 0 Lawn Cells 0 Acanthocytes (Spur) 0 Rouleaux 0 Fragmented RBCs 0 Schistocytes 0 PT with INR 11.10 INR 0.94 PTT (Actin FS) 27.8 Sodium 144 Potassium 4.7 Chloride 101 Carbon Dioxide 39 H Anion Gap 4 L BUN 16 Creatinine 0.6 Creat Clearance w eGFR > 60 Random Glucose 139 H Calcium 8.8 Phosphorus 2.4 L Magnesium 2.3 TSH 0.12 L D Free T4 1.19 H ASSESSMENT AND PLAN: Acute on Chronic Hypoxic and Hypercapneic Respiratory Failure Acute COPD Exacerbation h/o Atypical Mycobacterium r/o Pneumonia Pulmonary HTN LV Diastolic Dysfunction Thrombocytopenia New AFib - Noted IV Cardizem was started - O2 via NC and NIPPV as needed / QHS - Medrol - Inhaled bronchodilators standing and PRN - Continue antibiotics - f/u cultures - DVT prophylaxis - ICU monitoring Dr Donovan Critical care time spent in reviewing chart, evaluating patient and formulating plan 36 min
--- NOTE | 2018-03-11 16:00 | ECHO ---
Name: CARLOS MORE Exam:Adult Echocardiogram Study Date: 03/11/2018 02:15 PM Age: 67 yrs Reason For Study: Tachycardia Height: 69 in Weight: 137 lb BSA: 1.8 m2 BP: 109/72 mmHg MMode/2D Measurements & Calculations IVSd: 0.88 cm Ao root diam: 2.4 cm LVIDd: 4.2 cm LA dimension: 2.6 cm LVIDs: 3.1 cm LVPWd: 0.97 cm EDV(Teich): 79.2 ml LVOT diam: 1.9 cm ESV(Teich): 38.1 ml TAPSE: 2.0 cm RV S David: 10.8 cm/sec Doppler Measurements & Calculations MV E max david: 103.0 cm/sec TR max david: 187.6 cm/sec TR max P.1 mmHg Med Peak E' David: 10.4 cm/sec Med E/e': 9.9 Lat Peak E' David: 11.7 cm/sec Lat E/e': 8.8 Procedure A complete two-dimensional transthoracic echocardiogram was performed (2D, M-mode, Doppler and color flow Doppler). Left Ventricle The left ventricular size, thickness and function are normal. The left ventricular ejection fraction is normal. Ejection Fraction = 55-60%. The left ventricular wall motion is normal. Right Ventricle The right ventricle is normal in size and function. Atria Normal left and right atrial size and function. Mitral Valve There is no mitral regurgitation noted. Tricuspid Valve There is trace tricuspid regurgitation. There was insufficient TR detected to calculate RV systolic p ressure. Aortic Valve No hemodynamically significant valvular aortic stenosis. No aortic regurgitation is present. Pulmonic Valve There is no pulmonic valvular regurgitation. Great Vessels The aortic root is normal size. Pericardium/Pleura There is no pericardial effusion. Interpretation Summary The left ventricular size, thickness and function are normal The right ventricle is normal in size and function. There is trace tricuspid regurgitation. MD Sage Hensley 03/11/2018 04:00 PM
[2018-03-11] MEDS: ATORVASTATIN CA 10 MG TABLET (FP) PO SCH (21:22)
[2018-03-11] MEDS: CHLORHEXIDINE GLUCONATE 4% CLEANSER FOR DECOLONIZATION TP SCH (21:27)
[2018-03-12] MEDS ORDERED: dilTIAZem HCL 50 MG/10 ML - 10 ML VIAL ONE (02:12)
[2018-03-12] MEDS: ALBUTEROL SO4 2.5/IPRATROPIUM 0.5 INH SOL 3 ML VIAL.NEB. NEB SCH ×4 (08:17→21:00)
--- NOTE | 2018-03-12 08:57 | PN ---
Progress Note, Physician - Current Medication List Current Medications: Active Medications Albuterol Sulfate (Ventolin 0.083% Nebulizer Soln -) 1 amp NEB Q4H PRN PRN Reason: SHORT OF BREATH/WHEEZING Last Admin: 03/10/18 04:37 Dose: 1 amp Albuterol/Ipratropium (Duoneb -) 1 amp NEB RQID TA Last Admin: 03/12/18 08:17 Dose: 1 amp Alprazolam (Xanax -) 0.25 mg PO BID PRN PRN Reason: FOR ANXIETY Last Admin: 03/11/18 12:31 Dose: 0.25 mg Aspirin (Asa -) 81 mg PO DAILY [facility] Last Admin: 03/11/18 10:11 Dose: 81 mg Atorvastatin Calcium (Lipitor -) 10 mg PO HS [facility] Last Admin: 03/11/18 21:22 Dose: 10 mg Budesonide/Formoterol Fumarate (Symbicort 160/4.5mcg -) 2 puff IH BID [facility] Last Admin: 03/11/18 21:33 Dose: 2 puff Chlorhexidine Gluconate (Hibiclens For Decolonization -) 1 applic TP HS [facility] Last Admin: 03/11/18 21:27 Dose: 1 applic Furosemide (Lasix -) 20 mg PO DAILY [facility] Last Admin: 03/11/18 10:11 Dose: 20 mg Heparin Sodium (Porcine) (Heparin -) 1,000 unit IVPUSH PRN PRN PRN Reason: Heparin Heparin Sodium (Porcine) (Heparin -) 5,000 unit IVPUSH PRN PRN PRN Reason: Heparin Ceftriaxone Sodium 1 gm/ (Dextrose) 50 mls @ 100 mls/hr IVPB DAILY [facility] Last Admin: 03/11/18 10:11 Dose: 100 mls/hr Azithromycin (Zithromax 500mg Ivpb (Pre-Docked)) 500 mg in 250 mls @ 250 mls/ hr IVPB DAILY [facility] Last Admin: 03/11/18 13:18 Dose: 250 mls/hr Diltiazem HCl 125 mg/ Sodium (Chloride) 125 mls @ 5 mls/hr IVPB TITR TA; Protocol Last Titration: 03/12/18 03:11 Dose: 0 mg/hr, 0 mls/hr Heparin Sodium/Dextrose (Heparin Infusion -) 25,000 units in 500 mls @ 16 mls/ hr IVPB TITR TA; Protocol Last Admin: 03/11/18 15:14 Dose: 800 units/hr, 16 mls/hr Lactobacillus Acidophilus (Bacid -) 1 tab PO DAILY [facility] Last Admin: 03/11/18 15:17 Dose: 1 tab Methylprednisolone Sodium Succinate (Solu-Medrol -) 40 mg IVPB BID TA Last Admin: 03/11/18 21:22 Dose: 40 mg Mupirocin (Bactroban Ointment (For Decolonization) -) 1 applic NS BID TA Stop: 03/15/18 09:59 Last Admin: 03/11/18 10:13 Dose: 1 applic - Objective Vital Signs: Vital Signs Temperature 98.4 F 03/11/18 16:00 Pulse Rate 64 03/12/18 08:00 Respiratory Rate 17 03/12/18 08:00 Blood Pressure 119/61 03/12/18 08:00 O2 Sat by Pulse Oximetry (%) 96 03/11/18 20:48 Cardiovascular: Yes: S1, S2 Respiratory: Yes: Diminished, On Nasal O2 Gastrointestinal: Yes: Normal Bowel Sounds, Soft Labs: CBC, BMP 03/11/18 05:30 03/11/18 05:30 INR, PTT INR 0.94 (0.83-1.09) 03/11/18 13:15 Problem List - Problems (1) Respiratory failure with hypercapnia Assessment/Plan: - Extubated - ICU - duoneb QID - pulmonary consult - IV Steroids--to po Code(s): J96.92 - RESPIRATORY FAILURE, UNSPECIFIED WITH HYPERCAPNIA Qualifiers: Chronicity: acute on chronic Qualified Code(s): J96.22 - Acute and chronic respiratory failure with hypercapnia (2) COPD (chronic obstructive pulmonary disease) Assessment/Plan: -IV Steroids -Nebs -Pulm Consult Code(s): J44.9 - CHRONIC OBSTRUCTIVE PULMONARY DISEASE, UNSPECIFIED Qualifiers: COPD type: unspecified COPD Qualified Code(s): J44.9 - Chronic obstructive pulmonary disease, unspecified (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 Assessment/Plan: -Xanax prn -add lexapro Code(s): F06.4 - ANXIETY DISORDER DUE TO KNOWN PHYSIOLOGICAL CONDITION (4) Diastolic dysfunction Assessment/Plan: -Lasix prn Code(s): I51.9 - HEART DISEASE, UNSPECIFIED (5) MRSA (methicillin resistant Staphylococcus aureus) colonization Assessment/Plan: -Per protocol Code(s): Z22.322 - CARRIER OR SUSPECTED CARRIER OF METHICILLIN RESIS STAPH (6) Pulmonary cavitary lesion Assessment/Plan: -Treated for Mac in past Code(s): J98.4 - OTHER DISORDERS OF LUNG (7) Pulmonary nodule Assessment/Plan: -Recent ct increased in size -outpatient pet scan Code(s): R91.1 - SOLITARY PULMONARY NODULE
[2018-03-12] MEDS ORDERED: ESCITALOPRAM OXALATE 10 MG TABLET (FP) PO SCH (10:00)
[2018-03-12] MEDS ORDERED: predniSONE 10 MG TABLET (UD) PO SCH (10:00)
[2018-03-12] MEDS ORDERED: APIXABAN 5 MG TABLET PO SCH (10:00)
--- NOTE | 2018-03-12 10:47 | PN ---
Progress Note, Physician History of Present Illness: No further palpitations, spontaneous cardioversion to SR with rate-control, now off cardizem gtt on oral formulation. Dyspnea, cough and wheeze improving. - Current Medication List Current Medications: Active Medications Albuterol Sulfate (Ventolin 0.083% Nebulizer Soln -) 1 amp NEB Q4H PRN PRN Reason: SHORT OF BREATH/WHEEZING Last Admin: 03/10/18 04:37 Dose: 1 amp Albuterol/Ipratropium (Duoneb -) 1 amp NEB RQID [facility] Last Admin: 03/12/18 08:17 Dose: 1 amp Alprazolam (Xanax -) 0.25 mg PO BID PRN PRN Reason: FOR ANXIETY Last Admin: 03/11/18 12:31 Dose: 0.25 mg Apixaban (Eliquis -) 5 mg PO BID [facility] Atorvastatin Calcium (Lipitor -) 10 mg PO HS [facility] Last Admin: 03/11/18 21:22 Dose: 10 mg Budesonide/Formoterol Fumarate (Symbicort 160/4.5mcg -) 2 puff IH BID [facility] Last Admin: 03/11/18 21:33 Dose: 2 puff Chlorhexidine Gluconate (Hibiclens For Decolonization -) 1 applic TP HS [facility] Last Admin: 03/11/18 21:27 Dose: 1 applic Diltiazem HCl (Cardizem -) 30 mg PO Q6HPO [facility] Escitalopram Oxalate (Lexapro -) 10 mg PO DAILY [facility] Furosemide (Lasix -) 20 mg PO DAILY [facility] Last Admin: 03/11/18 10:11 Dose: 20 mg Ceftriaxone Sodium 1 gm/ (Dextrose) 50 mls @ 100 mls/hr IVPB DAILY [facility] Last Admin: 03/11/18 10:11 Dose: 100 mls/hr Azithromycin (Zithromax 500mg Ivpb (Pre-Docked)) 500 mg in 250 mls @ 250 mls/ hr IVPB DAILY [facility] Last Admin: 03/11/18 13:18 Dose: 250 mls/hr Lactobacillus Acidophilus (Bacid -) 1 tab PO DAILY [facility] Last Admin: 03/11/18 15:17 Dose: 1 tab Mupirocin (Bactroban Ointment (For Decolonization) -) 1 applic NS BID [facility] Stop: 03/15/18 09:59 Last Admin: 03/11/18 10:13 Dose: 1 applic Prednisone (Deltasone -) 30 mg PO BID TA - Objective Vital Signs: Vital Signs Temperature 98.4 F 03/11/18 16:00 Pulse Rate 64 03/12/18 08:00 Respiratory Rate 17 03/12/18 08:00 Blood Pressure 119/61 03/12/18 08:00 O2 Sat by Pulse Oximetry (%) 96 03/11/18 20:48 Constitutional: Yes: No Distress, Calm, Thin Neck: Yes: Supple Cardiovascular: Yes: Regular Rate and Rhythm Respiratory: Yes: Regular, Diminished, On Nasal O2 Gastrointestinal: Yes: Normal Bowel Sounds, Soft Edema: No Labs: CBC, BMP 03/11/18 05:30 03/11/18 05:30 INR, PTT INR 0.94 (0.83-1.09) 03/11/18 13:15 Problem List - Problems (1) Paroxysmal atrial fibrillation with rapid ventricular response Code(s): I48.0 - PAROXYSMAL ATRIAL FIBRILLATION (2) Acute and chronic respiratory failure with hypercapnia Code(s): J96.22 - ACUTE AND CHRONIC RESPIRATORY FAILURE WITH HYPERCAPNIA (3) Anemia Code(s): D64.9 - ANEMIA, UNSPECIFIED Qualifiers: Anemia type: unspecified type Qualified Code(s): D64.9 - Anemia, unspecified (4) COPD exacerbation Code(s): J44.1 - CHRONIC OBSTRUCTIVE PULMONARY DISEASE W (ACUTE) EXACERBATION (5) Diastolic dysfunction Code(s): I51.9 - HEART DISEASE, UNSPECIFIED (6) Hyperlipidemia Code(s): E78.5 - HYPERLIPIDEMIA, UNSPECIFIED Qualifiers: Hyperlipidemia type: pure hypercholesterolemia Qualified Code(s): E78.00 - Pure hypercholesterolemia, unspecified; E78.0 - Pure hypercholesterolemia (7) Mycobacteria, atypical Code(s): A31.9 - MYCOBACTERIAL INFECTION, UNSPECIFIED (8) Pulmonary nodule Code(s): R91.1 - SOLITARY PULMONARY NODULE Assessment/Plan 03/11/2018 Echo: Normal biventricular size and fxn, tr TR 1. Paroxysmal atrial fibrillation now in SR [id number] 2. Acute on Chronic Hypoxic and Hypercapneic Respiratory Failure referable to 3. Acute exacerbation of advanced chronic obstructive pulmonary disease on home oxygen therapy with Pulmonary HTN, resolving 4. CAD non-obstructive coronary artery disease angina pectoris, stable 5. Diastolic LV dysfunction with class 0-I NYHA classification LV failure, compensated/euvolemic 6. HTN 7. Hypercholesterolemia 8. Anemia 9. RUL mass 10. Hyperthyroidism PLAN: 1. Changed Cardizem gtt to Cardizem 30 q6 and eventual extended release formulation 2. Complete empiric antibiotics course as per ID 3. IV steroid taper, bronchodilators, O2 to keep SpO2 >90% as per the pulmonary team, PET scan as outpatient 4. Given elevated risk score, d/c ASA, change heparin gtt to Eliquis 5 bid with monitor hemoglobin 5. Continue Lipitor 10 qhs and Lasix 20 qd 6. Addition of ACEI or ARBS hemodynamics permitting 7. DVT prophylaxis, endocrine input
[2018-03-12] MEDS ORDERED: DEXTROSE 5%-WATER - 50 ML IVPB ONE (10:56)
[2018-03-12] MEDS ORDERED: cefTRIAXone SODIUM 1 GM VIAL ONE (10:56)
[2018-03-12] MEDS ORDERED: PT OWN MED DRAWER 7, Y5N ONE (10:56)
[2018-03-12] MEDS: LACTOBACILLUS ACIDOPHILUS 1 TABLET PO SCH (10:59)
[2018-03-12] MEDS: MUPIROCIN 2% TOPICAL OINTMENT FOR DECOLONIZATION NS SCH ×3 (10:59→21:34)
[2018-03-12] MEDS: AZITHROMYCIN IVPB 500 MG/250 ML BAG IVPB SCH (11:00)
[2018-03-12] MEDS: FUROSEMIDE 20 MG TABLET (FP) PO SCH (11:00)
[2018-03-12] MEDS: dilTIAZem HCL 30 MG TABLET (FP) PO SCH ×3 (11:00→18:52)
[2018-03-12] MEDS: CEFTRIAXONE 1 GM in DEXTROSE 5%-WATER - 50 ML IVPB SCH (11:00)
[2018-03-12] MEDS: BUDESONIDE/FORMETEROL FUMARATE 160/4.5 mcg INHALER IH SCH ×2 (11:07→21:15)
--- NOTE | 2018-03-12 11:49 | PN ---
Progress Note (short form) - Note Progress Note: doing well no complaints tachycardia resolved Vital Signs Period Temp Pulse Resp BP Sys/Morgan Pulse Ox Last 24 Hr 97.6 F-98.4 F 59-145 14-25 92-130/37-96 96 cor-rrr lungs-clear abd-soft, nt ext no edema CBC, BMP 03/11/18 05:30 03/11/18 05:30 Microbiology 03/10/18 09:15 Blood - Peripheral Venous Blood Culture - Preliminary NO GROWTH OBTAINED AFTER 48 HOURS, INCUBATION TO CONTINUE FOR 3 DAYS. 03/10/18 09:30 Blood - Peripheral Venous Blood Culture - Preliminary NO GROWTH OBTAINED AFTER 48 HOURS, INCUBATION TO CONTINUE FOR 3 DAYS. 03/10/18 04:16 Urine - Urine [place] Urine Culture - Final NO GROWTH OBTAINED 03/10/18 13:10 Urine For Antigen Detection Legionella Antigen - Final 03/10/18 13:10 Urine For Antigen Detection Streptococcus pneumoniae Antigen (M - Final Current Medications Albuterol Sulfate (Ventolin 0.083% Nebulizer Soln -) 1 amp NEB Q4H PRN PRN Reason: SHORT OF BREATH/WHEEZING Last Admin: 03/10/18 04:37 Dose: 1 amp Albuterol/Ipratropium (Duoneb -) 1 amp NEB RQID [facility] Last Admin: 03/12/18 08:17 Dose: 1 amp Alprazolam (Xanax -) 0.25 mg PO BID PRN PRN Reason: FOR ANXIETY Last Admin: 03/11/18 12:31 Dose: 0.25 mg Apixaban (Eliquis -) 5 mg PO BID [facility] Last Admin: 03/12/18 11:00 Dose: 5 mg Atorvastatin Calcium (Lipitor -) 10 mg PO HS [facility] Last Admin: 03/11/18 21:22 Dose: 10 mg Budesonide/Formoterol Fumarate (Symbicort 160/4.5mcg -) 2 puff IH BID [facility] Last Admin: 03/12/18 11:07 Dose: 2 puff Chlorhexidine Gluconate (Hibiclens For Decolonization -) 1 applic TP HS [facility] Last Admin: 03/11/18 21:27 Dose: 1 applic Diltiazem HCl (Cardizem -) 30 mg PO Q6HPO [facility] Last Admin: 03/12/18 11:00 Dose: 30 mg Escitalopram Oxalate (Lexapro -) 10 mg PO DAILY [facility] Last Admin: 03/12/18 11:00 Dose: 10 mg Furosemide (Lasix -) 20 mg PO DAILY [facility] Last Admin: 03/12/18 11:00 Dose: 20 mg Ceftriaxone Sodium 1 gm/ (Dextrose) 50 mls @ 100 mls/hr IVPB DAILY [facility] Last Admin: 03/12/18 11:00 Dose: 100 mls/hr Azithromycin (Zithromax 500mg Ivpb (Pre-Docked)) 500 mg in 250 mls @ 250 mls/ hr IVPB DAILY [facility] Last Admin: 03/12/18 11:00 Dose: 250 mls/hr Lactobacillus Acidophilus (Bacid -) 1 tab PO DAILY [facility] Last Admin: 03/12/18 10:59 Dose: 1 tab Mupirocin (Bactroban Ointment (For Decolonization) -) 1 applic NS BID [facility] Stop: 03/15/18 09:59 Last Admin: 03/12/18 10:59 Dose: 1 applic Prednisone (Deltasone -) 30 mg PO BID [facility] Last Admin: 03/12/18 10:59 Dose: 30 mg a/p respiratory failure-secondary to hypercapnea from increasing his oxygen at home copd exacerbation history atypical mycobacteria thrombocytopenia- f/u cbc d/w pulmonary will d/c antibiotics cxray clear suspect respiratory failure due to hypercapnea Problem List - Problems (1) Acute respiratory distress Code(s): J80 - ACUTE RESPIRATORY DISTRESS SYNDROME (2) COPD exacerbation Code(s): J44.1 - CHRONIC OBSTRUCTIVE PULMONARY DISEASE W (ACUTE) EXACERBATION (3) Mycobacterial disease, pulmonary Code(s): A31.0 - PULMONARY MYCOBACTERIAL INFECTION (4) MRSA (methicillin resistant Staphylococcus aureus) colonization Code(s): Z22.322 - CARRIER OR SUSPECTED CARRIER OF METHICILLIN RESIS STAPH
--- NOTE | 2018-03-12 11:58 | PN ---
Physical Exam: SUBJECTIVE: Patient seen and examined at bedside. Maintaining saturation on 3LNC. Afib corrected yesterday PM on diltiazem drip. Patient anxious but otherwise feeling well. Refused AM labs. OBJECTIVE: Vital Signs Period Temp Pulse Resp BP Sys/Morgan Pulse Ox Last 24 Hr 97.6 F-98.4 F 59-145 14-25 92-130/37-96 96-96 GENERAL: A&Ox3, NAD HEAD: NC/AT EYES: Unequal pupils L>R, at baseline per patient, reactive to light and accommodation b/l EARS, NOSE, THROAT: Moist mucous membranes. NECK: supple without JVD LUNGS: scant diffuse wheezes, significantly improved HEART: RRR no m/r/g ABDOMEN: Soft, not distended, normoactive bowel sounds, no guarding, no rebound , no masses. MUSCULOSKELETAL: No bony deformities or tenderness. EXTREMITIES: 2+ pulses, warm, well-perfused. No peripheral edema. 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, motor, sensory systems without focal deficit SKIN: Warm, dry Laboratory Results - last 24 hr 03/11/18 03/11/18 03/11/18 05:30 05:30 13:15 Neutrophils % (Manual) 91.7 H Band Neutrophils % 3.1 Lymphocytes % (Manual) 2.1 L D Monocytes % (Manual) 3 L Eosinophils % (Manual) 0.0 D Basophils % (Manual) 0.0 Myelocytes % (Man) 0 D Promyelocytes % (Man) 0 Blast Cells % (Manual) 0 Metamyelocytes 0 Hypochromia 0 Toxic Granulation 0 Dohle Bodies 0 Platelet Estimate Decreased Polychromasia 0 Poikilocytosis 0 Basophilic Stippling 0 Anisocytosis 0 Microcytosis 0 Macrocytosis 0 Spherocytes 0 Sickle Cells 0 Target Cells 0 Tear Drop Cells 0 Ovalocytes 0 Stomatocytes 0 Helmet Cells 0 [place] Bodies 0 [place] Rings 0 Buddy Cells 0 Acanthocytes (Spur) 0 Rouleaux 0 Fragmented RBCs 0 Schistocytes 0 PT with INR 11.10 INR 0.94 PTT (Actin FS) 27.8 Sodium 144 Potassium 4.7 Chloride 101 Carbon Dioxide 39 H Anion Gap 4 L BUN 16 Creatinine 0.6 Creat Clearance w eGFR > 60 Random Glucose 139 H Calcium 8.8 Phosphorus 2.4 L Magnesium 2.3 TSH 0.12 L D Free T4 1.19 H 03/11/18 03/11/18 19:30 19:30 Neutrophils % (Manual) Band Neutrophils % Lymphocytes % (Manual) Monocytes % (Manual) Eosinophils % (Manual) Basophils % (Manual) Myelocytes % (Man) Promyelocytes % (Man) Blast Cells % (Manual) Metamyelocytes Hypochromia Toxic Granulation Dohle Bodies Platelet Estimate Polychromasia Poikilocytosis Basophilic Stippling Anisocytosis Microcytosis Macrocytosis Spherocytes Sickle Cells Target Cells Tear Drop Cells Ovalocytes Stomatocytes Helmet Cells [place] Bodies [place] Rings [place] Cells Acanthocytes (Spur) Rouleaux Fragmented RBCs Schistocytes PT with INR INR PTT (Actin FS) 50.9 H Sodium Potassium Chloride Carbon Dioxide Anion Gap BUN Creatinine Creat Clearance w eGFR Random Glucose Calcium Phosphorus Magnesium TSH Free T4 1.13 Active Medications Generic Name Dose Route Start Last Admin Trade Name Freq PRN Reason Stop Dose Admin Albuterol Sulfate 1 amp 03/10/18 03:56 03/10/18 04:37 Ventolin 0.083% Nebulizer Soln - NEB 1 amp Q4H PRN Administration SHORT OF BREATH/WHEEZING Albuterol/Ipratropium 1 amp 03/10/18 08:00 03/12/18 08:17 Duoneb - NEB 1 amp RQID TA Administration Alprazolam 0.25 mg 03/11/18 12:30 03/11/18 12:31 Xanax - PO 0.25 mg BID PRN Administration FOR ANXIETY Apixaban 5 mg 03/12/18 10:00 03/12/18 11:00 Eliquis - PO 5 mg BID TA Administration Atorvastatin Calcium 10 mg 03/10/18 14:45 03/11/18 21:22 Lipitor - PO 10 mg HS TA Administration Budesonide/Formoterol Fumarate 2 puff 03/10/18 10:00 03/12/18 11:07 Symbicort 160/4.5mcg - IH 2 puff BID TA Administration Chlorhexidine Gluconate 1 applic 03/10/18 22:00 03/11/18 21:27 Hibiclens For Decolonization - TP 1 applic HS TA Administration Diltiazem HCl 30 mg 03/12/18 12:00 03/12/18 11:00 Cardizem - PO 30 mg Q6HPO TA Administration Escitalopram Oxalate 10 mg 10/12/18 10:00 03/12/18 11:00 Lexapro - PO 10 mg DAILY TA Administration Furosemide 20 mg 03/10/18 14:30 03/12/18 11:00 Lasix - PO 20 mg DAILY TA Administration Lactobacillus Acidophilus 1 tab 03/11/18 12:45 03/12/18 10:59 Bacid - PO 1 tab DAILY [facility] Administration Mupirocin 1 applic 03/10/18 10:00 03/12/18 10:59 Bactroban Ointment (For Decolonization) - NS 03/15/18 09:59 1 applic BID TA Administration Prednisone 30 mg 03/12/18 10:00 03/12/18 10:59 Deltasone - PO 30 mg BID TA Administration ASSESSMENT/PLAN: 67 y/o M w/ PMHx 2L O2 dependant COPD, pulm htn, ILD, CHF, chronic b/l apical lesions monitored with serial CT, BIBEMS s/p on site intubation. #Cardiac -CHF stable, no signs of overload -home ASA/Statin/Lasix -Afib broke on diltiazem drip, since d/c'd -Diltiazem 30q6 -per cardiology, will start DEJAH-i/ARB -heparin drip d/c'd -eliquis 5 BID -echo benign #Pulm -Acute hypercapnic respiratory failure in setting of O2 dependant COPD and ILD -maintaining saturation on 3LNC -medrol 40 BID -duonebs standing, albuterol PRN, symbicort #endocrine -low TSH, mildly elevated FT4, FT3 pending -Dr. Denis consulted #ID -ABx d/c'd per ID #psych -Xanax 0.25 BID -Lexapro 10 daily #FEN -no IVF -monitor BMP -regular diet #PPx -DVT: Eliquis -GI: not indicated at this time #dispo -transfer to tele Visit type - Emergency Visit Emergency Visit: No - New Patient This patient is new to me today: No - Critical Care Critical Care patient: Yes Total Critical Care Time (in minutes): 40 Critical Care Statement: The care of this patient involved high complexity decision making to prevent further life threatening deterioration of the patient 's condition and/or to evaluate & treat vital organ system(s) failure or risk of failure.
[2018-03-12 13:05] VITALS: BMI 19.5
--- NOTE | 2018-03-12 13:42 | PN ---
Teaching Attending Note Name of Resident: Henrik Wiseman ATTENDING PHYSICIAN STATEMENT I saw and evaluated the patient. I reviewed the resident's note and discussed the case with the resident. I agree with the resident's findings and plan as documented. SUBJECTIVE: Patient seen and examined in the ICU. Episode of new AFib yesterday, now in NSR. Noted some abnormal TFTs. Breathing feels better today. OBJECTIVE: Intake & Output 03/09/18 03/10/18 03/11/18 03/12/18 23:59 23:59 23:59 23:59 Intake Total 2038 630 762 Output Total 1740 940 500 Balance 298 -310 262 Weight 136 lb 12.8 oz 136 lb 14.4 oz 136 lb Last Vital Signs Temp Pulse Resp BP Pulse Ox 97.6 F 96 H 24 H 112/70 96 03/12/18 10:00 03/12/18 12:00 03/12/18 12:00 03/12/18 12:00 03/12/18 09:00 Active Medications Albuterol Sulfate (Ventolin 0.083% Nebulizer Soln -) 1 amp NEB Q4H PRN PRN Reason: SHORT OF BREATH/WHEEZING Last Admin: 03/10/18 04:37 Dose: 1 amp Albuterol/Ipratropium (Duoneb -) 1 amp NEB RQID [facility] Last Admin: 03/12/18 12:33 Dose: 1 amp Alprazolam (Xanax -) 0.25 mg PO BID PRN PRN Reason: FOR ANXIETY Last Admin: 03/11/18 12:31 Dose: 0.25 mg Apixaban (Eliquis -) 5 mg PO BID [facility] Last Admin: 03/12/18 11:00 Dose: 5 mg Atorvastatin Calcium (Lipitor -) 10 mg PO HS [facility] Last Admin: 03/11/18 21:22 Dose: 10 mg Budesonide/Formoterol Fumarate (Symbicort 160/4.5mcg -) 2 puff IH BID [facility] Last Admin: 03/12/18 11:07 Dose: 2 puff Chlorhexidine Gluconate (Hibiclens For Decolonization -) 1 applic TP HS [facility] Last Admin: 03/11/18 21:27 Dose: 1 applic Diltiazem HCl (Cardizem -) 30 mg PO Q6HPO [facility] Last Admin: 03/12/18 11:00 Dose: 30 mg Escitalopram Oxalate (Lexapro -) 10 mg PO DAILY [facility] Last Admin: 03/12/18 11:00 Dose: 10 mg Furosemide (Lasix -) 20 mg PO DAILY [facility] Last Admin: 03/12/18 11:00 Dose: 20 mg Lactobacillus Acidophilus (Bacid -) 1 tab PO DAILY [facility] Last Admin: 03/12/18 10:59 Dose: 1 tab Mupirocin (Bactroban Ointment (For Decolonization) -) 1 applic NS BID [facility] Stop: 03/15/18 09:59 Last Admin: 03/12/18 10:59 Dose: 1 applic Prednisone (Deltasone -) 30 mg PO BID [facility] Last Admin: 03/12/18 10:59 Dose: 30 mg Gen: Awake and alert, mildly tachypneic at rest, anxious Heart: RRR Lung: scattered rhonchi, no active wheeze Abd: soft, nontender Ext: no edema Laboratory Results - last 24 hr 03/11/18 03/11/18 03/11/18 05:30 05:30 13:15 Neutrophils % (Manual) 91.7 H Band Neutrophils % 3.1 Lymphocytes % (Manual) 2.1 L D Monocytes % (Manual) 3 L Eosinophils % (Manual) 0.0 D Basophils % (Manual) 0.0 Myelocytes % (Man) 0 D Promyelocytes % (Man) 0 Blast Cells % (Manual) 0 Metamyelocytes 0 Hypochromia 0 Toxic Granulation 0 Dohle Bodies 0 Platelet Estimate Decreased Polychromasia 0 Poikilocytosis 0 Basophilic Stippling 0 Anisocytosis 0 Microcytosis 0 Macrocytosis 0 Spherocytes 0 Sickle Cells 0 Target Cells 0 Tear Drop Cells 0 Ovalocytes 0 Stomatocytes 0 Helmet Cells 0 [place] Bodies 0 [place] Rings 0 Buddy Cells 0 Acanthocytes (Spur) 0 Rouleaux 0 Fragmented RBCs 0 Schistocytes 0 PT with INR 11.10 INR 0.94 PTT (Actin FS) 27.8 Sodium 144 Potassium 4.7 Chloride 101 Carbon Dioxide 39 H Anion Gap 4 L BUN 16 Creatinine 0.6 Creat Clearance w eGFR > 60 Random Glucose 139 H Calcium 8.8 Phosphorus 2.4 L Magnesium 2.3 TSH 0.12 L D Free T4 1.19 H 03/11/18 03/11/18 19:30 19:30 Neutrophils % (Manual) Band Neutrophils % Lymphocytes % (Manual) Monocytes % (Manual) Eosinophils % (Manual) Basophils % (Manual) Myelocytes % (Man) Promyelocytes % (Man) Blast Cells % (Manual) Metamyelocytes Hypochromia Toxic Granulation Dohle Bodies Platelet Estimate Polychromasia Poikilocytosis Basophilic Stippling Anisocytosis Microcytosis Macrocytosis Spherocytes Sickle Cells Target Cells Tear Drop Cells Ovalocytes Stomatocytes Helmet Cells [place] Bodies [place] Rings Buddy Cells Acanthocytes (Spur) Rouleaux Fragmented RBCs Schistocytes PT with INR INR PTT (Actin FS) 50.9 H Sodium Potassium Chloride Carbon Dioxide Anion Gap BUN Creatinine Creat Clearance w eGFR Random Glucose Calcium Phosphorus Magnesium TSH Free T4 1.13 ASSESSMENT AND PLAN: Acute on Chronic Hypoxic and Hypercapneic Respiratory Failure Acute COPD Exacerbation h/o Atypical Mycobacterium r/o Pneumonia Pulmonary HTN LV Diastolic Dysfunction Thrombocytopenia New AFib - Cardizem PO for rate control - O2 via NC and NIPPV as needed / QHS: Patient advised to have his family bring in his Trilogy - Wean Medrol - Inhaled bronchodilators standing and PRN - Continue antibiotics - f/u cultures - DVT prophylaxis - Cardiac Telemetry monitoring Dr Donovan
[2018-03-12] MEDS ORDERED: ALPRAZolam 0.25 MG TABLET PO ONE (18:21)
[2018-03-12] MEDS: CHLORHEXIDINE GLUCONATE 4% CLEANSER FOR DECOLONIZATION TP SCH (21:15)
[2018-03-12] MEDS: ATORVASTATIN CA 10 MG TABLET (FP) PO SCH (21:15)
[2018-03-12] MEDS: ALPRAZolam 0.25 MG TABLET PO PRN (21:29)
[2018-03-12] MEDS: APIXABAN 5 MG TABLET PO SCH (21:29)
[2018-03-12] MEDS: predniSONE 10 MG TABLET (UD) PO SCH (21:29)
[2018-03-13] MEDS: dilTIAZem HCL 30 MG TABLET (FP) PO SCH ×5 (00:21→23:00)
--- NOTE | 2018-03-13 00:50 | CONSULT ---
Consult Consult Specialty:: endocrine Referred by:: dr.[email or web address] childs Reason for Consultation:: hyperthyroidism - History of Present Illness Chief Complaint: panic attack History of Present Illness: 67 year old male, with a past medical history of COPD (3L of a home oxygen intubated 1x ), interstitial lung disease, pulmonary hypertension, hypertension, hyperlipidemia, CHF, MA, CAD, GERD, emphysema, and panic attacks, who presents to the emergency intubated,for respiratory failure on the scene, the patient has been experiencing increased SOB for the past 3 days requiring 6L of oxygen (baseline 3L). he remembers taking xanax to sleep the night before.he has since admission improved extubated. he denies any history of thyroid illness,no sweats,or heat intolerance,he has abnormal tfts on admission - Past Medical History Cardio/Vascular: Yes: CAD, CHF, HTN, Hyperlipdemia, Pulmonary Hypertension Pulmonary: Yes: COPD (home oxygen), O2 Dependent, Previously Intubated ( intubated one time several years ago for respiratory failure), Other ( Interstitial lung disease) Gastrointestinal: Yes: GERD, Hiatal Hernia Renal/: Yes: Renal Calculi, UTI Additional Medical History: Inguinal hernia. 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 History of Recent Travel: No Home Medications - Allergies Allergies/Adverse Reactions: Allergies Allergy/AdvReac Type Severity Reaction Status Date / Time moxifloxacin HCl Allergy Severe Verified 03/10/18 02:58 [From Avelox] aclidinium bromide Allergy Verified 03/10/18 02:58 [From Tudorza Pressair] shellfish derived Allergy Verified 03/10/18 02:58 - Home Medications Home Medications: Ambulatory Orders Albuterol Sulfate Inhaler - [Ventolin HFA Inhaler -] 2 inh PO Q4H 02/08/14 Arformoterol Tartrate [Brovana] 15 mcg IH BID 02/08/14 Aspirin [ASA -] 81 mg PO DAILY 02/08/14 Tamsulosin HCl [Flomax -] 0.4 mg PO DAILY 02/08/14 Tiotropium [place] [Spiriva] 1 inh PO DAILY 02/08/14 Beclomethasone Dipropionate [Qvar] 8.7 gm IH DAILY 01/09/16 Atorvastatin Ca [Lipitor] 10 mg PO DAILY 08/30/16 Polyethylene Glycol 3350 [Miralax 119 gm Btl -] 17 gm PO DAILY PRN #1 bottle 10/15 Ferrous Sulfate [Feosol] 325 mg PO BID ud 05/06/17 Furosemide [Lasix -] 20 mg PO DAILY tablet 05/06/17 Acetaminophen [Tylenol .Regular Strength -] 650 mg PO Q4H PRN tablet 02/20/18 Albuterol 0.083% Nebulizer Portia [Ventolin 0.083% Nebulizer Soln -] 1 amp NEB Q4H PRN amp 02/20/18 Alprazolam [Xanax] 0.25 mg PO BID #60 tablet MDD 2 02/20/18 Magnesium Hydrox 2400MG/30Ml [Milk of Magnesia -] 30 ml PO DAILY PRN #1 bottle 02/20/18 Prednisone 10 mg PO ASDIR #65 tablet 02/20/18 Sennosides [Senna -] 2 tab PO HS PRN #60 tablet 02/20/18 Albuterol 0.083% Nebulizer Portia [Ventolin 0.083% Nebulizer Soln -] 1 neb NEB Q4H PRN #75 vial 03/06/18 Review of Systems - Review of Systems Constitutional: reports: Weakness Eyes: reports: No Symptoms HENT: reports: No Symptoms Neck: reports: No Symptoms Cardiovascular: reports: Shortness of Breath Respiratory: reports: Exercise Intolerance, Orthopnea, SOB, SOB on Exertion, Wheezing Gastrointestinal: reports: Bloating Genitourinary: reports: No Symptoms Breasts: reports: No Symptoms Reported Musculoskeletal: reports: Muscle Pain, Muscle Cramps, Muscle Weakness Neurological: reports: No Symptoms Endocrine: reports: No Symptoms Physical Exam Vital Signs: Vital Signs Temperature 97.2 F L 03/12/18 22:00 Pulse Rate 73 03/13/18 00:00 Respiratory Rate 19 03/13/18 00:00 Blood Pressure 150/70 03/13/18 00:00 O2 Sat by Pulse Oximetry (%) 95 03/12/18 20:25 Constitutional: Yes: Anxious Eyes: Yes: EOM Intact HENT: Yes: Normocephalic Neck: Yes: Trachea Midline Cardiovascular: Yes: Regular Rate and Rhythm Respiratory: Yes: CTA Bilaterally Gastrointestinal: Yes: Normal Bowel Sounds ...Rectal Exam: Yes: Deferred Renal/: Yes: WNL Breast(s): Yes: WNL Musculoskeletal: Yes: WNL Edema: No Neurological: Yes: Alert, Oriented Labs: CBC, BMP 03/11/18 05:30 03/11/18 05:30 Problem List - Problems (1) Sick-euthyroid syndrome Code(s): E07.81 - SICK-EUTHYROID SYNDROME (2) Acute respiratory distress Code(s): J80 - ACUTE RESPIRATORY DISTRESS SYNDROME (3) COPD (chronic obstructive pulmonary disease) Code(s): J44.9 - CHRONIC OBSTRUCTIVE PULMONARY DISEASE, UNSPECIFIED Qualifiers: COPD type: unspecified COPD Qualified Code(s): J44.9 - Chronic obstructive pulmonary disease, unspecified (4) Paroxysmal atrial fibrillation with rapid ventricular response Code(s): I48.0 - PAROXYSMAL ATRIAL FIBRILLATION (5) Acute and chronic respiratory failure Code(s): J96.20 - ACUTE AND CHR RESP FAILURE, UNSP W HYPOXIA OR HYPERCAPNIA Qualifiers: Respiratory failure complication: hypoxia and hypercapnia Qualified Code(s) : J96.21 - Acute and chronic respiratory failure with hypoxia; J96.22 - Acute and chronic respiratory failure with hypercapnia (6) Anemia Code(s): D64.9 - ANEMIA, UNSPECIFIED Qualifiers: Anemia type: unspecified type Qualified Code(s): D64.9 - Anemia, unspecified (7) Anxiety disorder due to general medical condition Code(s): F06.4 - ANXIETY DISORDER DUE TO KNOWN PHYSIOLOGICAL CONDITION Assessment/Plan Current Active Problems Acute respiratory distress (Acute) COPD (chronic obstructive pulmonary disease) (Acute) Paroxysmal atrial fibrillation with rapid ventricular response (Acute) euthyroid sick syndrome Laboratory Tests 03/10/18 03/11/18 03/11/18 02:58 05:30 19:30 Sodium 144 Potassium 4.7 Chloride 101 Carbon Dioxide 39 H Anion Gap 4 L BUN 16 Creatinine 0.6 Creat Clearance w eGFR > 60 Random Glucose 139 H Calcium 8.8 Phosphorus 2.4 L Magnesium 2.3 Albumin 3.1 L TSH 0.12 L D Free T4 1.13 plan check free t4 direct dialysis check [id number]
[2018-03-13] MEDS: ALBUTEROL SO4 0.083% IH SOL 2.5 MG/3 ML VIAL.NEB. NEB PRN (05:37)
[2018-03-13] MEDS ORDERED: PT OWN MED DRAWER 7, Y5N ONE ×3 (05:45→09:12)
[2018-03-13 06:34] LABS: BASO % 0.1 % (0-2.0); HEMATOCRIT 35.2 % (35.4-49); HEMOGLOBIN 11.5 GM/dL (11.7-16.9); LYMPH % 3.3 % (8-40); MCH 29.6 pg (25.7-33.7); MCHC 32.7 g/dl (32.0-35.9); MEAN CELL VOLUME 90.6 fl (80-96); MEAN PLT VOLUME 9.1 fl (7.5-11.1); MONO % 4.8 % (3.8-10.2); NEUT % 91.8 % (42.8-82.8); PLATELET COUNT 109 K/MM3 (134-434); RBC 3.89 M/mm3 (4.00-5.60); RDW 14.4 % (11.9-15.9); WHITE BLOOD COUNT 7.7 K/mm3 (4.0-10.0)
[2018-03-13 07:00] LABS: ANION GAP 4 MMOL/L (8-16); BLOOD UREA NITROGEN 24 mg/dL (7-18); CALCIUM 8.3 mg/dL (8.5-10.1); CHLORIDE 99 mmol/L (98-107); CO2 40 mmol/L (21-32); CREATININE 0.7 mg/dL (0.55-1.3); GLUCOSE,RANDOM 132 mg/dL (74-106); MAGNESIUM 2.2 mg/dL (1.8-2.4); PHOSPHOROUS 3.8 mg/dL (2.5-4.9); POTASSIUM 3.8 mmol/L (3.5-5.1); SODIUM 143 mmol/L (136-145)
[2018-03-13] MEDS: ALBUTEROL SO4 2.5/IPRATROPIUM 0.5 INH SOL 3 ML VIAL.NEB. NEB SCH ×4 (08:30→21:10)
[2018-03-13] MEDS: predniSONE 10 MG TABLET (UD) PO SCH ×2 (09:03→23:00)
[2018-03-13] MEDS: FUROSEMIDE 20 MG TABLET (FP) PO SCH (09:03)
[2018-03-13] MEDS: ESCITALOPRAM OXALATE 10 MG TABLET (FP) PO SCH (09:03)
[2018-03-13] MEDS: APIXABAN 5 MG TABLET PO SCH ×2 (09:03→23:00)
[2018-03-13] MEDS: LACTOBACILLUS ACIDOPHILUS 1 TABLET PO SCH (09:03)
[2018-03-13] MEDS: MUPIROCIN 2% TOPICAL OINTMENT FOR DECOLONIZATION NS SCH ×2 (09:07→23:01)
[2018-03-13] MEDS: ALPRAZolam 0.25 MG TABLET PO PRN ×2 (09:13→16:10)
[2018-03-13] MEDS: BUDESONIDE/FORMETEROL FUMARATE 160/4.5 mcg INHALER IH SCH ×2 (09:50→23:02)
--- NOTE | 2018-03-13 10:31 | EKG ---
Test Reason : Blood Pressure : / mmHG Vent. Rate : 080 BPM Atrial Rate : 080 BPM P-R Int : 144 ms QRS Dur : 130 ms QT Int : 394 ms P-R-T Axes : 073 076 043 degrees QTc Int : 454 ms POOR DATA QUALITY, INTERPRETATION MAY BE ADVERSELY AFFECTED NORMAL SINUS RHYTHM RIGHT BUNDLE BRANCH BLOCK ABNORMAL ECG Confirmed by GINA EASTON MD ([id number]) on 03/13/2018 10:30:47 AM Referred By: Confirmed By:GINA EASTON MD
--- NOTE | 2018-03-13 10:46 | PN ---
Progress Note, Physician History of Present Illness: 67 year old male with a significant past medical history of COPD on home oxygen , interstitial lung disease and CHF who presented to the ED with a 3 day history of progressively worsening SOB. Pt sedated on ventilator at time of exam. History of present illness obtained from . She reports that this evening when he went to sleep, she noted him to be breathing faster than usual with more effort. He then awoke during the night and was extremely SOB. He collapsed in his 's arms while she was helping him to a chair. She reports that he was "completely out of it" and pale. She called 911. EMS intubated patient in ambulance on way to ED. Of note, pt was seen and evaluated in the ED on 03/06 for SOB and received one duoneb and 2 albuterol nebs. He was observed in the ED for several hours and then discharged home. ER course was notable for: (1) ABG revealed pH 7.31, PCO2 75.3, PO2 128 (2) given solumedrol 125 and duoneb x4 (3) pt sedated with propofol - Current Medication List Current Medications: Active Medications Albuterol Sulfate (Ventolin 0.083% Nebulizer Soln -) 1 amp NEB Q4H PRN PRN Reason: SHORT OF BREATH/WHEEZING Last Admin: 03/13/18 05:37 Dose: 1 amp Albuterol/Ipratropium (Duoneb -) 1 amp NEB RQID [facility] Last Admin: 03/12/18 21:00 Dose: 1 amp Alprazolam (Xanax -) 0.25 mg PO BID PRN PRN Reason: FOR ANXIETY Last Admin: 03/13/18 09:13 Dose: 0.25 mg Apixaban (Eliquis -) 5 mg PO BID [facility] Last Admin: 03/13/18 09:03 Dose: 5 mg Atorvastatin Calcium (Lipitor -) 10 mg PO HS [facility] Last Admin: 03/12/18 21:15 Dose: 10 mg Budesonide/Formoterol Fumarate (Symbicort 160/4.5mcg -) 2 puff IH BID [facility] Last Admin: 03/13/18 09:50 Dose: 2 inh Chlorhexidine Gluconate (Hibiclens For Decolonization -) 1 applic TP HS [facility] Last Admin: 03/12/18 21:15 Dose: 1 applic Diltiazem HCl (Cardizem -) 30 mg PO Q6HPO [facility] Last Admin: 03/13/18 05:52 Dose: 30 mg Escitalopram Oxalate (Lexapro -) 10 mg PO DAILY [facility] Last Admin: 03/13/18 09:03 Dose: 10 mg Furosemide (Lasix -) 20 mg PO DAILY [facility] Last Admin: 03/13/18 09:03 Dose: 20 mg Lactobacillus Acidophilus (Bacid -) 1 tab PO DAILY [facility] Last Admin: 03/13/18 09:03 Dose: 1 tab Mupirocin (Bactroban Ointment (For Decolonization) -) 1 applic NS BID [facility] Stop: 03/15/18 09:59 Last Admin: 03/13/18 09:07 Dose: 1 applic Prednisone (Deltasone -) 30 mg PO BID [facility] Last Admin: 03/13/18 09:03 Dose: 30 mg - Objective Vital Signs: Vital Signs Temperature 97.9 F 03/13/18 08:24 Pulse Rate 62 03/13/18 08:24 Respiratory Rate 14 03/13/18 08:24 Blood Pressure 141/59 L 03/13/18 08:24 O2 Sat by Pulse Oximetry (%) 99 03/13/18 10:31 Cardiovascular: Yes: S1, S2 Respiratory: Yes: Diminished, On Nasal O2 Labs: CBC, BMP 03/13/18 05:30 03/13/18 05:30 INR, PTT INR 0.94 (0.83-1.09) 03/11/18 13:15 Problem List - Problems (1) Respiratory failure with hypercapnia Assessment/Plan: - Extubated - duoneb QID - pulmonary consult noted - IV Steroids--to po Code(s): J96.92 - RESPIRATORY FAILURE, UNSPECIFIED WITH HYPERCAPNIA Qualifiers: Chronicity: acute on chronic Qualified Code(s): J96.22 - Acute and chronic respiratory failure with hypercapnia (2) COPD (chronic obstructive pulmonary disease) Code(s): J44.9 - CHRONIC OBSTRUCTIVE PULMONARY DISEASE, UNSPECIFIED Qualifiers: COPD type: unspecified COPD Qualified Code(s): J44.9 - Chronic obstructive pulmonary disease, unspecified (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 Assessment/Plan: -Xanax prn -add lexapro Code(s): F06.4 - ANXIETY DISORDER DUE TO KNOWN PHYSIOLOGICAL CONDITION (4) Diastolic dysfunction Assessment/Plan: -Lasix prn Code(s): I51.9 - HEART DISEASE, UNSPECIFIED (5) MRSA (methicillin resistant Staphylococcus aureus) colonization Assessment/Plan: -Per protocol Code(s): Z22.322 - CARRIER OR SUSPECTED CARRIER OF METHICILLIN RESIS STAPH (6) Pulmonary cavitary lesion Assessment/Plan: -Treated for Mac in past Code(s): J98.4 - OTHER DISORDERS OF LUNG (7) Pulmonary nodule Assessment/Plan: -Recent ct increased in size -outpatient pet scan Code(s): R91.1 - SOLITARY PULMONARY NODULE (8) Paroxysmal A-fib Assessment/Plan: -on eliquis Code(s): I48.0 - PAROXYSMAL ATRIAL FIBRILLATION
[2018-03-13 10:54] LABS: ANISOCYTOSIS 0; MACROCYTOSIS 1+; PLATELET ESTIMATE DECREASED
--- NOTE | 2018-03-13 11:19 | PN ---
Progress Note (short form) - Note Progress Note: Very anxious today. Used Triology for 5 hours last night. Breathing slowly improving. Remains in NSR. No CP. OBJECTIVE: Intake & Output 03/10/18 03/11/18 03/12/18 03/13/18 23:59 23:59 23:59 23:59 Intake Total 2030 630 1158 Output Total 1740 940 800 Balance 298 -310 358 Weight 136 lb 12.8 oz 136 lb 14.4 oz 136 lb Last Vital Signs Temp Pulse Resp BP Pulse Ox 97.9 F 62 14 141/59 L 99 03/13/18 08:24 03/13/18 08:24 03/13/18 08:24 03/13/18 08:24 03/13/18 10:31 Active Medications Albuterol Sulfate (Ventolin 0.083% Nebulizer Soln -) 1 amp NEB Q4H PRN PRN Reason: SHORT OF BREATH/WHEEZING Last Admin: 03/13/18 05:37 Dose: 1 amp Albuterol/Ipratropium (Duoneb -) 1 amp NEB RQID [facility] Last Admin: 03/12/18 21:00 Dose: 1 amp Alprazolam (Xanax -) 0.25 mg PO BID PRN PRN Reason: FOR ANXIETY Last Admin: 03/13/18 09:13 Dose: 0.25 mg Apixaban (Eliquis -) 5 mg PO BID [facility] Last Admin: 03/13/18 09:03 Dose: 5 mg Atorvastatin Calcium (Lipitor -) 10 mg PO HS [facility] Last Admin: 03/12/18 21:15 Dose: 10 mg Budesonide/Formoterol Fumarate (Symbicort 160/4.5mcg -) 2 puff IH BID [facility] Last Admin: 03/13/18 09:50 Dose: 2 inh Chlorhexidine Gluconate (Hibiclens For Decolonization -) 1 applic TP HS [facility] Last Admin: 03/12/18 21:15 Dose: 1 applic Diltiazem HCl (Cardizem -) 30 mg PO Q6HPO [facility] Last Admin: 03/13/18 05:52 Dose: 30 mg Escitalopram Oxalate (Lexapro -) 10 mg PO DAILY [facility] Last Admin: 03/13/18 09:03 Dose: 10 mg Furosemide (Lasix -) 20 mg PO DAILY [facility] Last Admin: 03/13/18 09:03 Dose: 20 mg Lactobacillus Acidophilus (Bacid -) 1 tab PO DAILY [facility] Last Admin: 03/13/18 09:03 Dose: 1 tab Mupirocin (Bactroban Ointment (For Decolonization) -) 1 applic NS BID [facility] Stop: 03/15/18 09:59 Last Admin: 03/13/18 09:07 Dose: 1 applic Prednisone (Deltasone -) 30 mg PO BID [facility] Last Admin: 03/13/18 09:03 Dose: 30 mg Gen: Awake and alert, mildly tachypneic at rest, anxious Heart: RRR Lung: scattered rhonchi, no active wheeze Abd: soft, nontender Ext: no edema Laboratory Results - last 24 hr 03/13/18 03/13/18 05:30 05:30 WBC 7.7 RBC 3.89 L Hgb 11.5 L Hct 35.2 L MCV 90.6 MCH 29.6 MCHC 32.7 RDW 14.4 Plt Count 109 L MPV 9.1 Absolute Neuts (auto) 7.1 Neutrophils % 91.8 H Lymphocytes % 3.3 L D Monocytes % 4.8 D Eosinophils % 0.0 Basophils % 0.1 Nucleated RBC % 0 Sodium 143 Potassium 3.8 Chloride 99 Carbon Dioxide 40 H Anion Gap 4 L BUN 24 H Creatinine 0.7 Creat Clearance w eGFR > 60 Random Glucose 132 H Calcium 8.3 L Phosphorus 3.8 Magnesium 2.2 ASSESSMENT AND PLAN: Acute on Chronic Hypoxic and Hypercapneic Respiratory Failure Acute COPD Exacerbation h/o Atypical Mycobacterium r/o Pneumonia Pulmonary HTN LV Diastolic Dysfunction Thrombocytopenia New AFib - Cardizem PO for rate control - Triology QHS and PRN - Medrol at the same dose - Inhaled bronchodilators standing and PRN - ABX - DVT prophylaxis - Cardiac Telemetry monitoring Dr Donovan
[2018-03-13] MEDS ORDERED: dilTIAZem HCL 50 MG/10 ML - 10 ML VIAL IVPUSH ONE (18:00)
[2018-03-13] MEDS ORDERED: oxyCODONE HCL 5 MG TABLET PO ONE (18:00)
[2018-03-13] MEDS: ATORVASTATIN CA 10 MG TABLET (FP) PO SCH (23:00)
[2018-03-13] MEDS: CHLORHEXIDINE GLUCONATE 4% CLEANSER FOR DECOLONIZATION TP SCH (23:01)
[2018-03-14] MEDS: dilTIAZem HCL 30 MG TABLET (FP) PO SCH ×2 (07:48→12:00)
[2018-03-14] MEDS: ALBUTEROL SO4 2.5/IPRATROPIUM 0.5 INH SOL 3 ML VIAL.NEB. NEB SCH ×4 (08:15→20:35)
--- NOTE | 2018-03-14 09:26 | PN ---
Progress Note, Physician - Current Medication List Current Medications: Active Medications Albuterol Sulfate (Ventolin 0.083% Nebulizer Soln -) 1 amp NEB Q4H PRN PRN Reason: SHORT OF BREATH/WHEEZING Last Admin: 03/13/18 05:37 Dose: 1 amp Albuterol/Ipratropium (Duoneb -) 1 amp NEB RQID [facility] Last Admin: 03/13/18 21:10 Dose: 1 amp Alprazolam (Xanax -) 0.25 mg PO BID PRN PRN Reason: FOR ANXIETY Last Admin: 03/13/18 16:10 Dose: 0.25 mg Apixaban (Eliquis -) 5 mg PO BID [facility] Last Admin: 03/13/18 23:00 Dose: 5 mg Atorvastatin Calcium (Lipitor -) 10 mg PO HS [facility] Last Admin: 03/13/18 23:00 Dose: 10 mg Budesonide/Formoterol Fumarate (Symbicort 160/4.5mcg -) 2 puff IH BID [facility] Last Admin: 03/13/18 23:02 Dose: 2 inh Chlorhexidine Gluconate (Hibiclens For Decolonization -) 1 applic TP HS [facility] Last Admin: 03/13/18 23:01 Dose: 1 applic Diltiazem HCl (Cardizem -) 30 mg PO Q6HPO [facility] Last Admin: 03/14/18 07:48 Dose: 30 mg Escitalopram Oxalate (Lexapro -) 10 mg PO DAILY [facility] Last Admin: 03/13/18 09:03 Dose: 10 mg Furosemide (Lasix -) 20 mg PO DAILY [facility] Last Admin: 03/13/18 09:03 Dose: 20 mg Lactobacillus Acidophilus (Bacid -) 1 tab PO DAILY [facility] Last Admin: 03/13/18 09:03 Dose: 1 tab Mupirocin (Bactroban Ointment (For Decolonization) -) 1 applic NS BID [facility] Stop: 03/15/18 09:59 Last Admin: 03/13/18 23:01 Dose: 1 applic Prednisone (Deltasone -) 30 mg PO BID [facility] Last Admin: 03/13/18 23:00 Dose: 30 mg - Objective Vital Signs: Vital Signs Temperature 97.9 F 03/14/18 00:00 Pulse Rate 67 03/14/18 06:00 Respiratory Rate 20 03/14/18 06:00 Blood Pressure 125/68 03/14/18 06:00 O2 Sat by Pulse Oximetry (%) 99 03/13/18 21:00 Cardiovascular: Yes: Murmur, S1, S2 Respiratory: Yes: Diminished, On Nasal O2 Gastrointestinal: Yes: Normal Bowel Sounds, Soft Labs: CBC, BMP 03/13/18 05:30 03/13/18 05:30 INR, PTT INR 0.94 (0.83-1.09) 03/11/18 13:15 Problem List - Problems (1) Respiratory failure with hypercapnia Assessment/Plan: - Extubated - duoneb QID - pulmonary consult noted - IV Steroids--to po Code(s): J96.92 - RESPIRATORY FAILURE, UNSPECIFIED WITH HYPERCAPNIA Qualifiers: Chronicity: acute on chronic Qualified Code(s): J96.22 - Acute and chronic respiratory failure with hypercapnia (2) COPD (chronic obstructive pulmonary disease) Assessment/Plan: -IV Steroids--PO -Nebs -Pulm Consult Code(s): J44.9 - CHRONIC OBSTRUCTIVE PULMONARY DISEASE, UNSPECIFIED Qualifiers: COPD type: unspecified COPD Qualified Code(s): J44.9 - Chronic obstructive pulmonary disease, unspecified (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 Assessment/Plan: -Xanax prn -add lexapro Code(s): F06.4 - ANXIETY DISORDER DUE TO KNOWN PHYSIOLOGICAL CONDITION (4) Diastolic dysfunction Assessment/Plan: -Lasix prn Code(s): I51.9 - HEART DISEASE, UNSPECIFIED (5) MRSA (methicillin resistant Staphylococcus aureus) colonization Assessment/Plan: -Per protocol Code(s): Z22.322 - CARRIER OR SUSPECTED CARRIER OF METHICILLIN RESIS STAPH (6) Pulmonary cavitary lesion Assessment/Plan: -Treated for Mac in past Code(s): J98.4 - OTHER DISORDERS OF LUNG (7) Pulmonary nodule Assessment/Plan: -Recent ct increased in size -outpatient pet scan Code(s): R91.1 - SOLITARY PULMONARY NODULE (8) Paroxysmal A-fib Assessment/Plan: -on eliquis Code(s): I48.0 - PAROXYSMAL ATRIAL FIBRILLATION
[2018-03-14] MEDS: BUDESONIDE/FORMETEROL FUMARATE 160/4.5 mcg INHALER IH SCH ×2 (10:00→21:59)
[2018-03-14] MEDS: LACTOBACILLUS ACIDOPHILUS 1 TABLET PO SCH (10:11)
[2018-03-14] MEDS: ESCITALOPRAM OXALATE 10 MG TABLET (FP) PO SCH (10:11)
[2018-03-14] MEDS: predniSONE 10 MG TABLET (UD) PO SCH ×2 (10:12→21:56)
[2018-03-14] MEDS: APIXABAN 5 MG TABLET PO SCH ×2 (10:12→21:56)
[2018-03-14] MEDS: FUROSEMIDE 20 MG TABLET (FP) PO SCH (10:12)
[2018-03-14] MEDS: MUPIROCIN 2% TOPICAL OINTMENT FOR DECOLONIZATION NS SCH ×2 (10:13→21:56)
[2018-03-14] MEDS: ALPRAZolam 0.25 MG TABLET PO PRN (10:19)
--- NOTE | 2018-03-14 12:07 | PN ---
Progress Note, Physician History of Present Illness: No further palpitations, remains in SR with rate-control, on cardizem oral formulation. Dyspnea, cough and wheeze improving. - Current Medication List Current Medications: Active Medications Albuterol Sulfate (Ventolin 0.083% Nebulizer Soln -) 1 amp NEB Q4H PRN PRN Reason: SHORT OF BREATH/WHEEZING Last Admin: 03/13/18 05:37 Dose: 1 amp Albuterol/Ipratropium (Duoneb -) 1 amp NEB RQID [facility] Last Admin: 03/14/18 11:55 Dose: 1 amp Alprazolam (Xanax -) 0.25 mg PO BID PRN PRN Reason: FOR ANXIETY Last Admin: 03/14/18 10:19 Dose: 0.25 mg Apixaban (Eliquis -) 5 mg PO BID [facility] Last Admin: 03/14/18 10:12 Dose: 5 mg Atorvastatin Calcium (Lipitor -) 10 mg PO HS [facility] Last Admin: 03/13/18 23:00 Dose: 10 mg Budesonide/Formoterol Fumarate (Symbicort 160/4.5mcg -) 2 puff IH BID [facility] Last Admin: 03/13/18 23:02 Dose: 2 inh Chlorhexidine Gluconate (Hibiclens For Decolonization -) 1 applic TP HS [facility] Last Admin: 03/13/18 23:01 Dose: 1 applic Diltiazem HCl (Cardizem -) 30 mg PO Q6HPO [facility] Last Admin: 03/14/18 07:48 Dose: 30 mg Escitalopram Oxalate (Lexapro -) 10 mg PO DAILY [facility] Last Admin: 03/14/18 10:11 Dose: 10 mg Furosemide (Lasix -) 20 mg PO DAILY [facility] Last Admin: 03/14/18 10:12 Dose: 20 mg Lactobacillus Acidophilus (Bacid -) 1 tab PO DAILY [facility] Last Admin: 03/14/18 10:11 Dose: 1 tab Mupirocin (Bactroban Ointment (For Decolonization) -) 1 applic NS BID [facility] Stop: 03/15/18 09:59 Last Admin: 03/14/18 10:13 Dose: 1 applic Prednisone (Deltasone -) 30 mg PO BID [facility] Last Admin: 03/14/18 10:12 Dose: 30 mg - Objective Vital Signs: Vital Signs Temperature 97.9 F 03/14/18 00:00 Pulse Rate 67 03/14/18 10:00 Respiratory Rate 20 03/14/18 10:00 Blood Pressure 125/68 03/14/18 10:00 O2 Sat by Pulse Oximetry (%) 99 03/14/18 09:00 Constitutional: Yes: No Distress, Anxious, Thin Neck: Yes: Supple Cardiovascular: Yes: Regular Rate and Rhythm Respiratory: Yes: Regular, Diminished, On Nasal O2 Gastrointestinal: Yes: Normal Bowel Sounds, Soft Edema: No Labs: CBC, BMP 03/13/18 05:30 03/13/18 05:30 INR, PTT INR 0.94 (0.83-1.09) 03/11/18 13:15 - ....Imaging EKG: Report Reviewed (Tele: NSR, no PAF) Problem List - Problems (1) Paroxysmal atrial fibrillation with rapid ventricular response Code(s): I48.0 - PAROXYSMAL ATRIAL FIBRILLATION (2) Acute and chronic respiratory failure with hypercapnia Code(s): J96.22 - ACUTE AND CHRONIC RESPIRATORY FAILURE WITH HYPERCAPNIA (3) Anemia Code(s): D64.9 - ANEMIA, UNSPECIFIED Qualifiers: Anemia type: unspecified type Qualified Code(s): D64.9 - Anemia, unspecified (4) COPD exacerbation Code(s): J44.1 - CHRONIC OBSTRUCTIVE PULMONARY DISEASE W (ACUTE) EXACERBATION (5) Diastolic dysfunction Code(s): I51.9 - HEART DISEASE, UNSPECIFIED (6) Hyperlipidemia Code(s): E78.5 - HYPERLIPIDEMIA, UNSPECIFIED Qualifiers: Hyperlipidemia type: pure hypercholesterolemia Qualified Code(s): E78.00 - Pure hypercholesterolemia, unspecified; E78.0 - Pure hypercholesterolemia (7) Mycobacteria, atypical Code(s): A31.9 - MYCOBACTERIAL INFECTION, UNSPECIFIED (8) Pulmonary nodule Code(s): R91.1 - SOLITARY PULMONARY NODULE Assessment/Plan 03/11/2018 Echo: Normal biventricular size and fxn, tr TR 1. Paroxysmal atrial fibrillation now in SR [id number] 2. Acute on Chronic Hypoxic and Hypercapneic Respiratory Failure referable to 3. Acute exacerbation of advanced chronic obstructive pulmonary disease on home oxygen therapy with Pulmonary HTN, resolving 4. h/o Atypical Mycobacterium 5. 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 Diastolic LV dysfunction with class 0-I NYHA classification LV failure, compensated/euvolemic 7. HTN 8. Hypercholesterolemia 9. Anemia 10. RUL mass 11. Sick euthyroid syndrome PLAN: 1. Change Cardizem 30 q6 to Cardizem DC 120 qd 2. Complete empiric antibiotics course as per ID 3. Slow oral steroid taper, bronchodilators, O2 to keep SpO2 >90% as per the pulmonary team, Triology QHS and PRN, PET scan as outpatient 4. Given elevated risk score, continue Eliquis 5 bid with monitor hemoglobin 5. Continue Lipitor 10 qhs and Lasix 20 qd 6. Addition of ACEI or ARBS hemodynamics permitting 7. DVT prophylaxis, endocrine input appreciated, f/u thyroid studies
[2018-03-14] MEDS ORDERED: BISACODYL 5 MG TABLET.DR (FP) PO ONE (18:00)
[2018-03-14] MEDS: CHLORHEXIDINE GLUCONATE 4% CLEANSER FOR DECOLONIZATION TP SCH (21:56)
[2018-03-14] MEDS: ATORVASTATIN CA 10 MG TABLET (FP) PO SCH (21:57)
[2018-03-14] MEDS: POLYETHYLENE GLYCOL 3350 119 GM BTL PO SCH (21:59)
[2018-03-15] MEDS: ALBUTEROL SO4 2.5/IPRATROPIUM 0.5 INH SOL 3 ML VIAL.NEB. NEB SCH ×4 (08:47→21:00)
--- NOTE | 2018-03-15 09:56 | PN ---
Progress Note, Physician History of Present Illness: No further palpitations, remains in SR with rate-control, on cardizem oral formulation. Dyspnea, cough and wheeze improving. - Current Medication List Current Medications: Active Medications Albuterol Sulfate (Ventolin 0.083% Nebulizer Soln -) 1 amp NEB Q4H PRN PRN Reason: SHORT OF BREATH/WHEEZING Last Admin: 03/13/18 05:37 Dose: 1 amp Albuterol/Ipratropium (Duoneb -) 1 amp NEB RQID [facility] Last Admin: 03/15/18 08:47 Dose: 1 amp Alprazolam (Xanax -) 0.25 mg PO BID PRN PRN Reason: FOR ANXIETY Last Admin: 03/14/18 10:19 Dose: 0.25 mg Apixaban (Eliquis -) 5 mg PO BID [facility] Last Admin: 03/14/18 21:56 Dose: 5 mg Atorvastatin Calcium (Lipitor -) 10 mg PO HS [facility] Last Admin: 03/14/18 21:57 Dose: 10 mg Budesonide/Formoterol Fumarate (Symbicort 160/4.5mcg -) 2 puff IH BID [facility] Last Admin: 03/14/18 21:59 Dose: 1 inh Chlorhexidine Gluconate (Hibiclens For Decolonization -) 1 applic TP HS [facility] Last Admin: 03/14/18 21:56 Dose: 1 applic Diltiazem HCl (Cardizem Cd -) 120 mg PO DAILY [facility] Last Admin: 03/14/18 12:35 Dose: 120 mg Escitalopram Oxalate (Lexapro -) 10 mg PO DAILY [facility] Last Admin: 03/14/18 10:11 Dose: 10 mg Furosemide (Lasix -) 20 mg PO DAILY [facility] Last Admin: 03/14/18 10:12 Dose: 20 mg Lactobacillus Acidophilus (Bacid -) 1 tab PO DAILY [facility] Last Admin: 03/14/18 10:11 Dose: 1 tab Mupirocin (Bactroban Ointment (For Decolonization) -) 1 applic NS BID [facility] Stop: 03/15/18 09:59 Last Admin: 03/14/18 21:56 Dose: 1 applic Polyethylene Glycol (Miralax (For Daily Use) -) 17 gm PO BID [facility] Last Admin: 03/14/18 21:59 Dose: 17 gm Prednisone (Deltasone -) 30 mg PO BID [facility] Last Admin: 03/14/18 21:56 Dose: 30 mg - Objective Vital Signs: Vital Signs Temperature 98.8 F 03/15/18 06:00 Pulse Rate 90 03/15/18 08:38 Respiratory Rate 22 H 03/15/18 08:38 Blood Pressure 127/64 03/15/18 08:38 O2 Sat by Pulse Oximetry (%) 99 03/15/18 08:25 Constitutional: Yes: No Distress, Calm, Thin Neck: Yes: Supple Cardiovascular: Yes: Regular Rate and Rhythm Respiratory: Yes: Regular, Cough, Diminished, On Nasal O2, SOB, Wheezes Gastrointestinal: Yes: Normal Bowel Sounds, Soft Edema: No Labs: CBC, BMP 03/13/18 05:30 03/13/18 05:30 INR, PTT INR 0.94 (0.83-1.09) 03/11/18 13:15 - ....Imaging EKG: Report Reviewed (Tele: SR without PAF) Problem List - Problems (1) Paroxysmal atrial fibrillation with rapid ventricular response Code(s): I48.0 - PAROXYSMAL ATRIAL FIBRILLATION (2) Acute and chronic respiratory failure with hypercapnia Code(s): J96.22 - ACUTE AND CHRONIC RESPIRATORY FAILURE WITH HYPERCAPNIA (3) Anemia Code(s): D64.9 - ANEMIA, UNSPECIFIED Qualifiers: Anemia type: unspecified type Qualified Code(s): D64.9 - Anemia, unspecified (4) COPD exacerbation Code(s): J44.1 - CHRONIC OBSTRUCTIVE PULMONARY DISEASE W (ACUTE) EXACERBATION (5) Diastolic dysfunction Code(s): I51.9 - HEART DISEASE, UNSPECIFIED (6) Hyperlipidemia Code(s): E78.5 - HYPERLIPIDEMIA, UNSPECIFIED Qualifiers: Hyperlipidemia type: pure hypercholesterolemia Qualified Code(s): E78.00 - Pure hypercholesterolemia, unspecified; E78.0 - Pure hypercholesterolemia (7) Mycobacteria, atypical Code(s): A31.9 - MYCOBACTERIAL INFECTION, UNSPECIFIED (8) Pulmonary nodule Code(s): R91.1 - SOLITARY PULMONARY NODULE Assessment/Plan 03/11/2018 Echo: Normal biventricular size and fxn, tr TR 1. Paroxysmal atrial fibrillation now in SR [id number] 2. Acute on Chronic Hypoxic and Hypercapneic Respiratory Failure referable to 3. Acute exacerbation of advanced chronic obstructive pulmonary disease on home oxygen therapy with Pulmonary HTN, resolving 4. h/o Atypical Mycobacterium 5. 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 Diastolic LV dysfunction with class 0-I NYHA classification LV failure, compensated/euvolemic 7. HTN 8. Hypercholesterolemia 9. Anemia 10. RUL mass 11. Sick euthyroid syndrome PLAN: 1. Continue Cardizem CD 120 qd 2. Complete empiric antibiotics course as per ID 3. Slow oral steroid taper, bronchodilators, O2 to keep SpO2 >90% as per the pulmonary team, Triology QHS and PRN, PET scan as outpatient 4. Given elevated risk score, continue Eliquis 5 bid with monitor hemoglobin 5. Continue Lipitor 10 qhs and Lasix 20 qd 6. Addition of ACEI or ARBS hemodynamics permitting 7. DVT prophylaxis, PT->d/c planning
[2018-03-15] MEDS ORDERED: PT OWN MED DRAWER 7, Y5N ONE (10:11)
[2018-03-15] MEDS: LACTOBACILLUS ACIDOPHILUS 1 TABLET PO SCH (10:18)
[2018-03-15] MEDS: predniSONE 10 MG TABLET (UD) PO SCH ×2 (10:18→21:11)
[2018-03-15] MEDS: ESCITALOPRAM OXALATE 10 MG TABLET (FP) PO SCH (10:19)
[2018-03-15] MEDS: APIXABAN 5 MG TABLET PO SCH ×2 (10:19→21:11)
[2018-03-15] MEDS: FUROSEMIDE 20 MG TABLET (FP) PO SCH (10:19)
[2018-03-15] MEDS: BUDESONIDE/FORMETEROL FUMARATE 160/4.5 mcg INHALER IH SCH ×2 (10:23→21:30)
[2018-03-15] MEDS: POLYETHYLENE GLYCOL 3350 119 GM BTL PO SCH ×2 (10:23→21:29)
[2018-03-15] MEDS: ALPRAZolam 0.25 MG TABLET PO PRN ×2 (10:29→21:11)
--- NOTE | 2018-03-15 10:47 | DS ---
Physical Examination Vital Signs: Vital Signs Temperature 98.8 F 03/15/18 06:00 Pulse Rate 90 03/15/18 08:38 Respiratory Rate 22 H 03/15/18 08:38 Blood Pressure 127/64 03/15/18 08:38 O2 Sat by Pulse Oximetry (%) 99 03/15/18 08:25 Constitutional: Yes: Calm, Thin Cardiovascular: Yes: Regular Rate and Rhythm, S1, S2 Respiratory: Yes: Diminished, On Nasal O2 Gastrointestinal: Yes: Normal Bowel Sounds, Soft Edema: No Neurological: Yes: Alert, Oriented Labs: CBC, BMP 03/13/18 05:30 03/13/18 05:30 Discharge Summary Reason For Visit: COPD ACUTE RESPIRATORY DISTRESS Current Active Problems Acute respiratory distress (Acute) COPD (chronic obstructive pulmonary disease) (Acute) Paroxysmal A-fib (Acute) Paroxysmal atrial fibrillation with rapid ventricular response (Acute) Sick-euthyroid syndrome (Acute) Hospital Course: HISTORY OF PRESENT ILLNESS: This is a 67 year old male with a significant past medical history of COPD on home oxygen, interstitial lung disease and CHF who presented to the ED with a 3 day history of progressively worsening SOB. Pt sedated on ventilator at time of exam. History of present illness obtained from . She reports that this evening when he went to sleep, she noted him to be breathing faster than usual with more effort. He then awoke during the night and was extremely SOB. He collapsed in his 's arms while she was helping him to a chair. She reports that he was "completely out of it" and pale. She called 911. EMS intubated patient in ambulance on way to ED. Of note, pt was seen and evaluated in the ED on 03/06 for SOB and received one duoneb and 2 albuterol nebs. He was observed in the ED for several hours and then discharged home. 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 [employer] Smoking: quit 10+ years ago, prior 2ppd x 35 years Alcohol: pt denies Drugs: pt denies in hospital : patient in telemetry floor dyspnea respiratory failure from increase oxygen at home: steroids bronchodilators triology at night as needed slow medrol taper,oxygen and pulm rehab as outpatient and possible snf placement if approved by insurance thromobyctopenia is improving atypical mycobacteria paroxy afib on eliquis on cardizem lasix and lipitor Condition: Guarded - Instructions Referrals: Mony Leslie MD [Primary Care Provider] - Disposition: [facility]ITENT[facility]ARY FACILITY - Home Medications Comprehensive Discharge Medication List: Ambulatory Orders Albuterol Sulfate Inhaler - [Ventolin HFA Inhaler -] 2 inh PO Q4H 02/08/14 Arformoterol Tartrate [Brovana] 15 mcg IH BID 02/08/14 Aspirin [ASA -] 81 mg PO DAILY 02/08/14 Tamsulosin HCl [Flomax -] 0.4 mg PO DAILY 02/08/14 Tiotropium Carlisle [Spiriva] 1 inh PO DAILY 02/08/14 Beclomethasone Dipropionate [Qvar] 8.7 gm IH DAILY 01/09/16 Atorvastatin Ca [Lipitor] 10 mg PO DAILY 08/30/16 Polyethylene Glycol 3350 [Miralax 119 gm Btl -] 17 gm PO DAILY PRN #1 bottle 10/15 Ferrous Sulfate [Feosol] 325 mg PO BID ud 05/06/17 Furosemide [Lasix -] 20 mg PO DAILY tablet 05/06/17 Acetaminophen [Tylenol .Regular Strength -] 650 mg PO Q4H PRN tablet 02/20/18 Albuterol 0.083% Nebulizer Portia [Ventolin 0.083% Nebulizer Soln -] 1 amp NEB Q4H PRN amp 02/20/18 Alprazolam [Xanax] 0.25 mg PO BID #60 tablet MDD 2 02/20/18 Magnesium Hydrox 2400MG/30Ml [Milk of Magnesia -] 30 ml PO DAILY PRN #1 bottle 02/20/18 Prednisone 10 mg PO ASDIR #65 tablet 02/20/18 Sennosides [Senna -] 2 tab PO HS PRN #60 tablet 02/20/18 Albuterol 0.083% Nebulizer Portia [Ventolin 0.083% Nebulizer Soln -] 1 neb NEB Q4H PRN #75 vial 03/06/18
--- NOTE | 2018-03-15 10:53 | PN ---
Progress Note (short form) - Note Progress Note: The patient was seen on his last admission in January of this year. He was readmitted recently and seen due to his mood disorder. He has an infection and respiratory distress but still uses his holistic supplements as he believes they may be of benefit. He was appreciative of this visit as he has a need to share his feelings which offers him some relief. His mental status appeared to be similar to the last examination. He was alert, oriented x3, quite verbal, and enjoyed the attention.Supportive therapy with cognitive reframing will be provided. He will be followed while he remains an inpatient here.
--- NOTE | 2018-03-15 10:57 | PN ---
Progress Note (short form) - Note Progress Note: awaiting bed placement at snf/ home with [facility] spoke to she wants patient to go to rehab/snf spoke to disease case manager- pending authorization/approval
[2018-03-15] MEDS: NYSTATIN 500,000 UNITS/5 ML SUSPENSION PO SCH ×2 (12:10→19:02)
[2018-03-15 12:23] LABS: BASO % 0.1 % (0-2.0); EOS % 0.1 % (0-4.5); HEMATOCRIT 39.8 % (35.4-49); HEMOGLOBIN 12.6 GM/dL (11.7-16.9); LYMPH % 3.9 % (8-40); MCH 29.2 pg (25.7-33.7); MCHC 31.8 g/dl (32.0-35.9); MEAN CELL VOLUME 91.9 fl (80-96); MEAN PLT VOLUME 9.3 fl (7.5-11.1); MONO % 6.2 % (3.8-10.2); NEUT % 89.7 % (42.8-82.8); PLATELET COUNT 142 K/MM3 (134-434); RBC 4.33 M/mm3 (4.00-5.60); RDW 15.1 % (11.9-15.9); WHITE BLOOD COUNT 12.1 K/mm3 (4.0-10.0)
[2018-03-15 12:37] LABS: ALBUMIN 3.2 g/dl (3.4-5.0); ALK PHOS 77 U/L (45-117); ANION GAP 1 MMOL/L (8-16); BILIRUBIN,TOTAL 0.4 mg/dL (0.2-1); BLOOD UREA NITROGEN 26 mg/dL (7-18); CALCIUM 9.8 mg/dL (8.5-10.1); CHLORIDE 99 mmol/L (98-107); CO2 43 mmol/L (21-32); CREATININE 0.6 mg/dL (0.55-1.3); GLUCOSE,RANDOM 91 mg/dL (74-106); POTASSIUM 4.5 mmol/L (3.5-5.1); SGOT/AST 18 U/L (15-37); SGPT/ALT 36 U/L (13-61); SODIUM 144 mmol/L (136-145); TOT PROT 6.4 g/dl (6.4-8.2)
[2018-03-15 13:07] LABS: PLATELET ESTIMATE NORMAL
--- NOTE | 2018-03-15 13:50 | PN ---
Progress Note (short form) - Note Progress Note: PULMONARY More short of breath and chest tightness today. Vital Signs Period Temp Pulse Resp BP Sys/Morgan Pulse Ox Last 24 Hr 98.2 F-98.8 F 70-90 16-22 109-143/64-87 99-99 Gen: tachypneic at rest Heart: RRR Lung: distant breath sounds, poor air entry Abd: soft, nontender Ext: no edema CBC, BMP 03/15/18 12:00 03/15/18 12:00 Active Medications Albuterol Sulfate (Ventolin 0.083% Nebulizer Soln -) 1 amp NEB Q4H PRN PRN Reason: SHORT OF BREATH/WHEEZING Last Admin: 03/13/18 05:37 Dose: 1 amp Albuterol/Ipratropium (Duoneb -) 1 amp NEB RQID [facility] Last Admin: 03/15/18 13:05 Dose: 1 amp Alprazolam (Xanax -) 0.25 mg PO BID PRN PRN Reason: FOR ANXIETY Last Admin: 03/15/18 10:29 Dose: 0.25 mg Apixaban (Eliquis -) 5 mg PO BID [facility] Last Admin: 03/15/18 10:19 Dose: 5 mg Atorvastatin Calcium (Lipitor -) 10 mg PO HS [facility] Last Admin: 03/14/18 21:57 Dose: 10 mg Budesonide/Formoterol Fumarate (Symbicort 160/4.5mcg -) 2 puff IH BID [facility] Last Admin: 03/15/18 10:23 Dose: 2 inh Chlorhexidine Gluconate (Hibiclens For Decolonization -) 1 applic TP HS [facility] Last Admin: 03/14/18 21:56 Dose: 1 applic Diltiazem HCl (Cardizem Cd -) 120 mg PO DAILY [facility] Last Admin: 03/15/18 10:18 Dose: 120 mg Escitalopram Oxalate (Lexapro -) 10 mg PO DAILY [facility] Last Admin: 03/15/18 10:19 Dose: 10 mg Furosemide (Lasix -) 20 mg PO DAILY [facility] Last Admin: 03/15/18 10:19 Dose: 20 mg Lactobacillus Acidophilus (Bacid -) 1 tab PO DAILY [facility] Last Admin: 03/15/18 10:18 Dose: 1 tab Nystatin (Nystatin Oral Suspension -) 500,000 units PO Q6HPO [facility] Last Admin: 03/15/18 12:10 Dose: 500,000 units Polyethylene Glycol (Miralax (For Daily Use) -) 17 gm PO BID [facility] Last Admin: 03/15/18 10:23 Dose: 17 gm Prednisone (Deltasone -) 30 mg PO BID [facility] Last Admin: 03/15/18 10:18 Dose: 30 mg A/P Acute on Chronic Hypoxic and Hypercapneic Respiratory Failure Acute COPD Exacerbation h/o Atypical Mycobacterium r/o Pneumonia Pulmonary HTN LV Diastolic Dysfunction Thrombocytopenia - continue medrol - inhaled bronchodilators standing and PRN - continue antibiotics - O2 to keep Spo2 >90% - DVT prophylaxis
[2018-03-15] MEDS: ALBUTEROL SO4 0.083% IH SOL 2.5 MG/3 ML VIAL.NEB. NEB PRN (14:22)
[2018-03-15] MEDS: ATORVASTATIN CA 10 MG TABLET (FP) PO SCH (21:11)
[2018-03-15] MEDS: CHLORHEXIDINE GLUCONATE 4% CLEANSER FOR DECOLONIZATION TP SCH (21:29)
--- NOTE | 2018-03-16 06:30 | PN ---
Progress Note (short form) - Note Progress Note: Chief Complaint: Events noted, notes reviewed, denies any chest pain, but reports persistent dyspnea and cough, sinus rhythm is noted History of Present Illness: Seen and examined on telemetry. Events noted, notes reviewed, denies any chest pain, but reports persistent dyspnea and cough, sinus rhythm is noted - Current Medication List Current Medications Albuterol Sulfate (Ventolin 0.083% Nebulizer Soln -) 1 amp NEB Q4H PRN PRN Reason: SHORT OF BREATH/WHEEZING Last Admin: 03/15/18 14:22 Dose: 1 amp Albuterol/Ipratropium (Duoneb -) 1 amp NEB RQID [facility] Last Admin: 03/15/18 21:00 Dose: 1 amp Alprazolam (Xanax -) 0.25 mg PO BID PRN PRN Reason: FOR ANXIETY Last Admin: 03/15/18 21:11 Dose: 0.25 mg Apixaban (Eliquis -) 5 mg PO BID [facility] Last Admin: 03/15/18 21:11 Dose: 5 mg Atorvastatin Calcium (Lipitor -) 10 mg PO HS [facility] Last Admin: 03/15/18 21:11 Dose: 10 mg Budesonide/Formoterol Fumarate (Symbicort 160/4.5mcg -) 2 puff IH BID [facility] Last Admin: 03/15/18 21:30 Dose: 2 inh Chlorhexidine Gluconate (Hibiclens For Decolonization -) 1 applic TP HS [facility] Last Admin: 03/15/18 21:29 Dose: 1 applic Diltiazem HCl (Cardizem Cd -) 120 mg PO DAILY [facility] Last Admin: 03/15/18 10:18 Dose: 120 mg Escitalopram Oxalate (Lexapro -) 10 mg PO DAILY [facility] Last Admin: 03/15/18 10:19 Dose: 10 mg Furosemide (Lasix -) 20 mg PO DAILY [facility] Last Admin: 03/15/18 10:19 Dose: 20 mg Lactobacillus Acidophilus (Bacid -) 1 tab PO DAILY [facility] Last Admin: 03/15/18 10:18 Dose: 1 tab Nystatin (Nystatin Oral Suspension -) 500,000 units PO Q6HPO [facility] Last Admin: 03/15/18 19:02 Dose: 500,000 units Polyethylene Glycol (Miralax (For Daily Use) -) 17 gm PO BID [facility] Last Admin: 10/15/18 21:29 Dose: 17 gm Prednisone (Deltasone -) 30 mg PO BID [facility] Last Admin: 03/15/18 21:11 Dose: 30 mg - Review of Systems Cardiovascular: As noted above Respiratory: As noted above Gastrointestinal: denies: Nausea, Vomiting, Diarrhea, Constipation or Abdominal Pain Musculoskeletal: No symptoms reported Neurological: No symptoms reported - Objective Vital Signs: Last Vital Signs Temp Pulse Resp BP Pulse Ox 98.4 F 70 18 126/58 L 99 03/16/18 04:00 03/16/18 04:00 03/16/18 04:00 03/16/18 04:00 03/15/18 20:00 Intake & Output 03/13/18 03/14/18 03/15/18 03/16/18 23:59 23:59 23:59 23:59 Intake Total 500 50 Output Total 606 300 6868 Balance -550 100 -1150 Neck: Supple Negative JVD Cardiovascular: S1 S2 Regular Rate Rhythm Respiratory: Diminished breath sounds Bilaterally Scattered Rhonchi Gastrointestinal: Soft Benign Normal Bowel Sounds Ext: Negative Edema Labs: CBC, BMP 03/15/18 12:00 03/15/18 12:00 Hepatic Panel Total Bilirubin 0.4 mg/dL (0.2-1) 03/15/18 12:00 AST 18 U/L (15-37) 03/15/18 12:00 ALT 36 U/L (13-61) 03/15/18 12:00 Alkaline Phosphatase 77 U/L (45-117) 03/15/18 12:00 Albumin 3.2 g/dl (3.4-5.0) L 03/15/18 12:00 Assessment/Plan ASSESSMENT: 1. Paroxysmal atrial fibrillation currently in sinus rhythm with [id number] score of 2 2. Acute on Chronic Hypoxic and Hypercapneic Respiratory Failure referable to 3. Acute exacerbation of advanced chronic obstructive pulmonary disease on home oxygen therapy with Pulmonary HTN, resolving 4. History of Atypical Mycobacterium 5. 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 Diastolic LV dysfunction with class 0-I NYHA classification LV failure, compensated/euvolemic 7. HTN 8. Hypercholesterolemia 9. History of anemia 10. RUL mass 11. Sick euthyroid syndrome PLAN: 1. Continue Cardizem CD hemodynamics permitting 2. Continue A/C with Eliquis 3. Antibiotics course as per ID service 4. Steroids and bronchodilators as per the pulmonary team 5. Continue Lipitor 6. Continue Lasix 7. Consider the addition of ACEI or ARBS hemodynamics permitting 8. D/C planning as per the primary team Ashley Bojorquez MD
[2018-03-16] MEDS: NYSTATIN 500,000 UNITS/5 ML SUSPENSION PO SCH ×5 (06:32→22:00)
[2018-03-16] MEDS: ALBUTEROL SO4 2.5/IPRATROPIUM 0.5 INH SOL 3 ML VIAL.NEB. NEB SCH ×4 (08:29→21:00)
--- NOTE | 2018-03-16 10:08 | PN ---
Progress Note (short form) - Note Progress Note: The patient was less anxious but shared concerns over his daughters (i.e., worried about them). He stated that he was able to walk a few steps in his room with the walker and the PT. His Respiratory Therapist happened to join us for awhile and she was rightfully concerned that he was not using the O2 when walking. We focused on reframing his anxiety about his daughters to thinking that they would worry less about his wellbeing if he continued to improve and eventually return home. We talked about the healthy selfishness which is being proactive for recovery. The patient also indicated that he has been experiencing non-intention tremors. It is recommended that a consultation with a neurologist be considered to ascertain the actual type of tremor and possible etiology.
[2018-03-16] MEDS: LACTOBACILLUS ACIDOPHILUS 1 TABLET PO SCH (10:21)
[2018-03-16] MEDS: FUROSEMIDE 20 MG TABLET (FP) PO SCH (10:21)
[2018-03-16] MEDS: APIXABAN 5 MG TABLET PO SCH ×2 (10:22→21:26)
[2018-03-16] MEDS: ESCITALOPRAM OXALATE 10 MG TABLET (FP) PO SCH (10:22)
[2018-03-16] MEDS: predniSONE 10 MG TABLET (UD) PO SCH ×2 (10:22→21:25)
[2018-03-16] MEDS: POLYETHYLENE GLYCOL 3350 119 GM BTL PO SCH ×2 (10:23→21:33)
[2018-03-16] MEDS: ALPRAZolam 0.25 MG TABLET PO PRN ×2 (10:28→21:31)
[2018-03-16] MEDS: BUDESONIDE/FORMETEROL FUMARATE 160/4.5 mcg INHALER IH SCH ×2 (10:29→22:00)
--- NOTE | 2018-03-16 10:50 | PN ---
Progress Note, Physician Chief Complaint: patient seen and examined sitting up in bed with oxygen says his dyspnea slightly better needs PT - Current Medication List Current Medications: Active Medications Albuterol Sulfate (Ventolin 0.083% Nebulizer Soln -) 1 amp NEB Q4H PRN PRN Reason: SHORT OF BREATH/WHEEZING Last Admin: 03/15/18 14:22 Dose: 1 amp Albuterol/Ipratropium (Duoneb -) 1 amp NEB RQID [facility] BEDS AT THE [facility] Last Admin: 03/16/18 08:29 Dose: 1 amp Alprazolam (Xanax -) 0.25 mg PO BID PRN PRN Reason: FOR ANXIETY Last Admin: 03/16/18 10:28 Dose: 0.25 mg Apixaban (Eliquis -) 5 mg PO BID [facility] 234 BEDS AT THE [facility] Last Admin: 03/16/18 10:22 Dose: 5 mg Atorvastatin Calcium (Lipitor -) 10 mg PO HS [facility] 234 BEDS AT [facility] Last Admin: 03/15/18 21:11 Dose: 10 mg Budesonide/Formoterol Fumarate (Symbicort 160/4.5mcg -) 2 puff IH BID [facility] 234 BEDS AT [facility] Last Admin: 03/16/18 10:29 Dose: 2 inh Chlorhexidine Gluconate (Hibiclens For Decolonization -) 1 applic TP HS [facility] 234 BEDS AT [facility] Last Admin: 03/15/18 21:29 Dose: 1 applic Diltiazem HCl (Cardizem Cd -) 120 mg PO DAILY [facility] BEDS [facility] Last Admin: 03/16/18 10:22 Dose: 120 mg Escitalopram Oxalate (Lexapro -) 10 mg PO DAILY [facility] 234 BEDS AT [facility] Last Admin: 03/16/18 10:22 Dose: 10 mg Furosemide (Lasix -) 20 mg PO DAILY [facility] 234 BEDS [facility] Last Admin: 03/16/18 10:21 Dose: 20 mg Lactobacillus Acidophilus (Bacid -) 1 tab PO DAILY [facility] 234 B[facility]S [facility] Last Admin: 03/16/18 10:21 Dose: 1 tab Nystatin (Nystatin Oral Suspension -) 500,000 units PO Q6HPO [facility] 234 BEDS AT [facility] Last Admin: 03/16/18 06:32 Dose: 500,000 units Polyethylene Glycol (Miralax (For Daily Use) -) 17 gm PO BID [facility] 234 BEDS AT [facility] Last Admin: 03/16/18 10:23 Dose: 17 gm Prednisone (Deltasone -) 30 mg PO BID [facility] 234 BEDS AT [facility] Last Admin: 03/16/18 10:22 Dose: 30 mg - Objective Vital Signs: Vital Signs Temperature 98.1 F 03/16/18 06:00 Pulse Rate 68 03/16/18 06:00 Respiratory Rate 18 03/16/18 06:00 Blood Pressure 135/65 03/16/18 06:00 O2 Sat by Pulse Oximetry (%) 99 03/15/18 20:00 Constitutional: Yes: Calm, Thin Cardiovascular: Yes: Regular Rate and Rhythm, S1, S2 Respiratory: Yes: Diminished, On Nasal O2 Gastrointestinal: Yes: Normal Bowel Sounds, Soft Edema: No Neurological: Yes: Alert, Oriented Labs: CBC, BMP 03/15/18 12:00 03/15/18 12:00 INR, PTT INR 0.94 (0.83-1.09) 03/11/18 13:15 Problem List - Problems (1) Paroxysmal A-fib Assessment/Plan: jeanmarie avila Code(s): I48.0 - PAROXYSMAL ATRIAL FIBRILLATION (2) COPD (chronic obstructive pulmonary disease) Assessment/Plan: acute on chronic advacned COPD ahd hypercapnic failure - improving bronchodilators triology at night pulm rehab on discharge slow medrol taper Code(s): J44.9 - CHRONIC OBSTRUCTIVE PULMONARY DISEASE, UNSPECIFIED Qualifiers: COPD type: unspecified COPD Qualified Code(s): J44.9 - Chronic obstructive pulmonary disease, unspecified (3) Thrush, oral Assessment/Plan: nystatin Code(s): B37.0 - CANDIDAL STOMATITIS (4) Thrombocytopenia Assessment/Plan: improving Code(s): D69.6 - THROMBOCYTOPENIA, UNSPECIFIED Assessment/Plan awaiting placement at SNF
--- NOTE | 2018-03-16 13:21 | PN ---
Progress Note (short form) - Note Progress Note: PULMONARY Breathing better today. +cough and wheezing. Vital Signs Period Temp Pulse Resp BP Sys/Morgan Pulse Ox Last 24 Hr 97.6 F-98.4 F 67-99 16-27 124-151/58-70 99-99 Gen: less tachypneic at rest Heart: RRR Lung: distant breath sounds, poor air entry, scattered wheeze Abd: soft, nontender Ext: no edema CBC, BMP 03/15/18 12:00 03/15/18 12:00 Active Medications Albuterol Sulfate (Ventolin 0.083% Nebulizer Soln -) 1 amp NEB Q4H PRN PRN Reason: SHORT OF BREATH/WHEEZING Last Admin: 03/15/18 14:22 Dose: 1 amp Albuterol/Ipratropium (Duoneb -) 1 amp NEB RQID [facility] Last Admin: 03/16/18 12:16 Dose: 1 amp Alprazolam (Xanax -) 0.25 mg PO BID PRN PRN Reason: FOR ANXIETY Last Admin: 03/16/18 10:28 Dose: 0.25 mg Apixaban (Eliquis -) 5 mg PO BID [facility] Last Admin: 03/16/18 10:22 Dose: 5 mg Atorvastatin Calcium (Lipitor -) 10 mg PO HS [facility] Last Admin: 03/15/18 21:11 Dose: 10 mg Budesonide/Formoterol Fumarate (Symbicort 160/4.5mcg -) 2 puff IH BID [facility] Last Admin: 03/16/18 10:29 Dose: 2 inh Chlorhexidine Gluconate (Hibiclens For Decolonization -) 1 applic TP HS [facility] Last Admin: 03/15/18 21:29 Dose: 1 applic Diltiazem HCl (Cardizem Cd -) 120 mg PO DAILY [facility] Last Admin: 03/16/18 10:22 Dose: 120 mg Escitalopram Oxalate (Lexapro -) 10 mg PO DAILY [facility] Last Admin: 03/16/18 10:22 Dose: 10 mg Furosemide (Lasix -) 20 mg PO DAILY [facility] Last Admin: 03/16/18 10:21 Dose: 20 mg Lactobacillus Acidophilus (Bacid -) 1 tab PO DAILY [facility] Last Admin: 03/16/18 10:21 Dose: 1 tab Nystatin (Nystatin Oral Suspension -) 500,000 units PO Q6HPO [facility] Last Admin: 03/16/18 06:32 Dose: 500,000 units Polyethylene Glycol (Miralax (For Daily Use) -) 17 gm PO BID [facility] Last Admin: 03/16/18 10:23 Dose: 17 gm Prednisone (Deltasone -) 30 mg PO BID [facility] Last Admin: 03/16/18 10:22 Dose: 30 mg A/P Acute on Chronic Hypoxic and Hypercapneic Respiratory Failure Acute COPD Exacerbation h/o Atypical Mycobacterium r/o Pneumonia Pulmonary HTN LV Diastolic Dysfunction Thrombocytopenia - prednisone taper - inhaled bronchodilators standing and PRN - continue antibiotics - O2 to keep Spo2 >90% - DVT prophylaxis
[2018-03-16] MEDS: ATORVASTATIN CA 10 MG TABLET (FP) PO SCH (21:26)
[2018-03-16] MEDS: CHLORHEXIDINE GLUCONATE 4% CLEANSER FOR DECOLONIZATION TP SCH (22:00)
--- NOTE | 2018-03-16 23:53 | CONSULT ---
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 Maintained on: Eliquis; lexapro; Ventolin; Brovana; ASA 81; Tamsulosin; Spiriva; Beclomethasone; Atorvastatin; Furosemide; Albuterol; Alprazolam; Prednisone; and Albuterol. Patient describes chronic anxiety disorder for which he has taken STANDING doses of alprazolam 0.5 mg BID > 15 years. He believes he took extra alprazolam ( 6 pills or 3.0 mg) on the day of admission and "went to sleep." Admitted for exacerbation of COPD found at home, unresponsive with PCO2 > 80 mmHG. Woke up when intubated and ventilated. Now, patient has become increasingly tremulous which he denies being at [place]. KELLEN: Neck supple. No bruits. Cor rapid reg NEURO: Awake, alert, pressured speech. Mild OMS? CN II-XII: normal Motor: Rapid (7-8 cps) sustention tremor. Normal strength. No cogwheel rigidity. Normal reflexes except AJ's. Toes downgoing. Coord: No FTN Dystaxia but + end point tremor Sensory: NOrmal IMP: Non-focal exam. Tremor may be multifactorial with contributions from steroids and bronchodilators but my main concern is that it could represent Benzodiazepine withdrawal. SUGGEST: Give alprazolam 0.5 mg q 6 hrs on a standing basis and observe. Thank you very much, Bailey Grande MD
[2018-03-17] MEDS: ALPRAZolam 0.25 MG TABLET PO SCH ×4 (04:03→17:19)
[2018-03-17] MEDS: NYSTATIN 500,000 UNITS/5 ML SUSPENSION PO SCH ×3 (05:37→17:19)
--- NOTE | 2018-03-17 08:11 | PN ---
Progress Note, Physician - Current Medication List Current Medications: Active Medications Albuterol Sulfate (Ventolin 0.083% Nebulizer Soln -) 1 amp NEB Q4H PRN PRN Reason: SHORT OF BREATH/WHEEZING Last Admin: 03/15/18 14:22 Dose: 1 amp Albuterol/Ipratropium (Duoneb -) 1 amp NEB RQID [facility] Last Admin: 03/16/18 21:00 Dose: 1 amp Alprazolam (Xanax -) 0.25 mg PO Q6HPO [facility] Last Admin: 03/17/18 05:37 Dose: 0.25 mg Apixaban (Eliquis -) 5 mg PO BID [facility] Last Admin: 03/16/18 21:26 Dose: 5 mg Atorvastatin Calcium (Lipitor -) 10 mg PO HS [facility] Last Admin: 03/16/18 21:26 Dose: 10 mg Budesonide/Formoterol Fumarate (Symbicort 160/4.5mcg -) 2 puff IH BID [facility] Last Admin: 03/16/18 22:00 Dose: 2 inh Chlorhexidine Gluconate (Hibiclens For Decolonization -) 1 applic TP HS [facility] Last Admin: 03/16/18 22:00 Dose: 1 applic Diltiazem HCl (Cardizem Cd -) 120 mg PO DAILY [facility] Last Admin: 03/16/18 10:22 Dose: 120 mg Escitalopram Oxalate (Lexapro -) 10 mg PO DAILY [facility] Last Admin: 03/16/18 10:22 Dose: 10 mg Furosemide (Lasix -) 20 mg PO DAILY [facility] Last Admin: 03/16/18 10:21 Dose: 20 mg Lactobacillus Acidophilus (Bacid -) 1 tab PO DAILY [facility] Last Admin: 03/16/18 10:21 Dose: 1 tab Nystatin (Nystatin Oral Suspension -) 500,000 units PO Q6HPO [facility] Last Admin: 03/17/18 05:37 Dose: 500,000 units Polyethylene Glycol (Miralax (For Daily Use) -) 17 gm PO BID [facility] Last Admin: 03/16/18 21:33 Dose: 17 gm Prednisone (Deltasone -) 30 mg PO BID [facility] Last Admin: 03/16/18 21:25 Dose: 30 mg - Objective Vital Signs: Vital Signs Temperature 97.7 F 03/17/18 02:00 Pulse Rate 70 03/17/18 06:00 Respiratory Rate 18 03/17/18 06:00 Blood Pressure 117/77 03/17/18 06:00 O2 Sat by Pulse Oximetry (%) 98 03/17/18 03:00 Cardiovascular: Yes: Regular Rate and Rhythm Respiratory: Yes: Regular, CTA Bilaterally Gastrointestinal: Yes: Normal Bowel Sounds, Soft Labs: CBC, BMP 03/15/18 12:00 03/15/18 12:00 INR, PTT INR 0.94 (0.83-1.09) 03/11/18 13:15 Problem List - Problems (1) Respiratory failure with hypercapnia Assessment/Plan: - Extubated - duoneb QID - pulmonary consult noted - IV Steroids--to po Code(s): J96.92 - RESPIRATORY FAILURE, UNSPECIFIED WITH HYPERCAPNIA Qualifiers: Chronicity: acute on chronic Qualified Code(s): J96.22 - Acute and chronic respiratory failure with hypercapnia (2) COPD (chronic obstructive pulmonary disease) Assessment/Plan: acute on chronic advacned COPD ahd hypercapnic failure - improving bronchodilators triology at night pulm rehab on discharge slow medrol taper Code(s): J44.9 - CHRONIC OBSTRUCTIVE PULMONARY DISEASE, UNSPECIFIED Qualifiers: COPD type: unspecified COPD Qualified Code(s): J44.9 - Chronic obstructive pulmonary disease, unspecified (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 Assessment/Plan: -Xanax prn -add lexapro Code(s): F06.4 - ANXIETY DISORDER DUE TO KNOWN PHYSIOLOGICAL CONDITION (4) Diastolic dysfunction Assessment/Plan: -Lasix prn Code(s): I51.9 - HEART DISEASE, UNSPECIFIED (5) MRSA (methicillin resistant Staphylococcus aureus) colonization Assessment/Plan: -Per protocol Code(s): Z22.322 - CARRIER OR SUSPECTED CARRIER OF METHICILLIN RESIS STAPH (6) Pulmonary cavitary lesion Assessment/Plan: -Treated for Mac in past Code(s): J98.4 - OTHER DISORDERS OF LUNG (7) Pulmonary nodule Assessment/Plan: -Recent ct increased in size -outpatient pet scan Code(s): R91.1 - SOLITARY PULMONARY NODULE (8) Paroxysmal A-fib Assessment/Plan: -on eliquis Code(s): I48.0 - PAROXYSMAL ATRIAL FIBRILLATION
[2018-03-17] MEDS: ALBUTEROL SO4 2.5/IPRATROPIUM 0.5 INH SOL 3 ML VIAL.NEB. NEB SCH ×4 (08:32→21:09)
[2018-03-17] MEDS: LACTOBACILLUS ACIDOPHILUS 1 TABLET PO SCH (09:36)
[2018-03-17] MEDS: BUDESONIDE/FORMETEROL FUMARATE 160/4.5 mcg INHALER IH SCH ×2 (09:37→22:29)
[2018-03-17] MEDS: predniSONE 10 MG TABLET (UD) PO SCH ×2 (09:37→22:10)
[2018-03-17] MEDS: ESCITALOPRAM OXALATE 10 MG TABLET (FP) PO SCH (09:37)
[2018-03-17] MEDS: FUROSEMIDE 20 MG TABLET (FP) PO SCH (09:38)
[2018-03-17] MEDS: APIXABAN 5 MG TABLET PO SCH ×2 (09:38→22:10)
[2018-03-17] MEDS: POLYETHYLENE GLYCOL 3350 119 GM BTL PO SCH ×2 (09:38→22:29)
--- NOTE | 2018-03-17 11:35 | PN ---
Progress Note, Physician History of Present Illness: No further palpitations, remains in SR with rate-control, on cardizem oral formulation. Dyspnea, cough and wheeze slowly improving. - Current Medication List Current Medications: Active Medications Albuterol Sulfate (Ventolin 0.083% Nebulizer Soln -) 1 amp NEB Q4H PRN PRN Reason: SHORT OF BREATH/WHEEZING Last Admin: 03/15/18 14:22 Dose: 1 amp Albuterol/Ipratropium (Duoneb -) 1 amp NEB RQID [facility] Last Admin: 03/17/18 08:32 Dose: 1 amp Alprazolam (Xanax -) 0.25 mg PO Q6HPO [facility] Last Admin: 03/17/18 11:10 Dose: 0.25 mg Apixaban (Eliquis -) 5 mg PO BID [facility] Last Admin: 03/17/18 09:38 Dose: 5 mg Atorvastatin Calcium (Lipitor -) 10 mg PO HS [facility] Last Admin: 03/16/18 21:26 Dose: 10 mg Budesonide/Formoterol Fumarate (Symbicort 160/4.5mcg -) 2 puff IH BID [facility] Last Admin: 03/17/18 09:37 Dose: 2 inh Chlorhexidine Gluconate (Hibiclens For Decolonization -) 1 applic TP HS [facility] Last Admin: 03/16/18 22:00 Dose: 1 applic Diltiazem HCl (Cardizem Cd -) 120 mg PO DAILY [facility] Last Admin: 03/17/18 09:37 Dose: 120 mg Escitalopram Oxalate (Lexapro -) 10 mg PO DAILY [facility] Last Admin: 03/17/18 09:37 Dose: 10 mg Furosemide (Lasix -) 20 mg PO DAILY [facility] Last Admin: 03/17/18 09:38 Dose: 20 mg Lactobacillus Acidophilus (Bacid -) 1 tab PO DAILY [facility] Last Admin: 03/17/18 09:36 Dose: 1 tab Nystatin (Nystatin Oral Suspension -) 500,000 units PO Q6HPO [facility] Last Admin: 03/17/18 11:10 Dose: 500,000 units Polyethylene Glycol (Miralax (For Daily Use) -) 17 gm PO BID [facility] Last Admin: 03/17/18 09:38 Dose: 17 gm Prednisone (Deltasone -) 30 mg PO BID [facility] Last Admin: 03/17/18 09:37 Dose: 30 mg - Objective Vital Signs: Vital Signs Temperature 97.7 F 03/17/18 02:00 Pulse Rate 82 03/17/18 11:15 Respiratory Rate 18 03/17/18 11:15 Blood Pressure 131/67 03/17/18 11:15 O2 Sat by Pulse Oximetry (%) 99 03/17/18 08:19 Constitutional: Yes: No Distress, Calm, Thin Neck: Yes: Supple Cardiovascular: Yes: Regular Rate and Rhythm Respiratory: Yes: Regular, Diminished, On Nasal O2 Gastrointestinal: Yes: Normal Bowel Sounds, Soft Edema: No Labs: CBC, BMP 03/15/18 12:00 03/15/18 12:00 INR, PTT INR 0.94 (0.83-1.09) 03/11/18 13:15 - ....Imaging EKG: Report Reviewed (Tele: SR w/o recurrent PAF) Problem List - Problems (1) Paroxysmal atrial fibrillation with rapid ventricular response Code(s): I48.0 - PAROXYSMAL ATRIAL FIBRILLATION (2) Acute and chronic respiratory failure with hypercapnia Code(s): J96.22 - ACUTE AND CHRONIC RESPIRATORY FAILURE WITH HYPERCAPNIA (3) Anemia Code(s): D64.9 - ANEMIA, UNSPECIFIED Qualifiers: Anemia type: unspecified type Qualified Code(s): D64.9 - Anemia, unspecified (4) COPD exacerbation Code(s): J44.1 - CHRONIC OBSTRUCTIVE PULMONARY DISEASE W (ACUTE) EXACERBATION (5) Diastolic dysfunction Code(s): I51.9 - HEART DISEASE, UNSPECIFIED (6) Hyperlipidemia Code(s): E78.5 - HYPERLIPIDEMIA, UNSPECIFIED Qualifiers: Hyperlipidemia type: pure hypercholesterolemia Qualified Code(s): E78.00 - Pure hypercholesterolemia, unspecified; E78.0 - Pure hypercholesterolemia (7) Mycobacteria, atypical Code(s): A31.9 - MYCOBACTERIAL INFECTION, UNSPECIFIED (8) Pulmonary nodule Code(s): R91.1 - SOLITARY PULMONARY NODULE Assessment/Plan 03/11/2018 Echo: Normal biventricular size and fxn, tr TR 1. Paroxysmal atrial fibrillation now in SR [id number] 2. Acute on Chronic Hypoxic and Hypercapneic Respiratory Failure referable to 3. Acute exacerbation of advanced chronic obstructive pulmonary disease on home oxygen therapy with Pulmonary HTN, resolving 4. h/o Atypical Mycobacterium 5. 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 Diastolic LV dysfunction with class 0-I NYHA classification LV failure, compensated/euvolemic 7. HTN 8. Hypercholesterolemia 9. Anemia 10. RUL mass 11. Sick euthyroid syndrome PLAN: 1. Continue Cardizem CD 120 qd 2. Complete empiric antibiotics course as per ID 3. Slow oral steroid taper, bronchodilators, O2 to keep SpO2 >90% as per the pulmonary team, Triology QHS and PRN, PET scan as outpatient 4. Given elevated risk score, continue Eliquis 5 bid with monitor hemoglobin 5. Continue Lipitor 10 qhs and Lasix 20 qd 6. Addition of ACEI or ARBS hemodynamics permitting 7. DVT prophylaxis, PT->d/c planning
--- NOTE | 2018-03-17 12:10 | PN ---
Progress Note (short form) - Note Progress Note: PULMONARY Breathing continues to improve. Less cough and wheezing. Vital Signs Period Temp Pulse Resp BP Sys/Morgan Pulse Ox Last 24 Hr 97.7 F-98.4 F 69-88 18-18 117-139/61-77 98-99 Gen: less tachypneic at rest Heart: RRR Lung: distant breath sounds, poor air entry, scattered wheeze Abd: soft, nontender Ext: no edema CBC, BMP 03/15/18 12:00 03/15/18 12:00 Active Medications Albuterol Sulfate (Ventolin 0.083% Nebulizer Soln -) 1 amp NEB Q4H PRN PRN Reason: SHORT OF BREATH/WHEEZING Last Admin: 03/15/18 14:22 Dose: 1 amp Albuterol/Ipratropium (Duoneb -) 1 amp NEB RQID [facility] Last Admin: 03/17/18 11:49 Dose: 1 amp Alprazolam (Xanax -) 0.25 mg PO Q6HPO [facility] Last Admin: 03/17/18 11:10 Dose: 0.25 mg Apixaban (Eliquis -) 5 mg PO BID [facility] Last Admin: 03/17/18 09:38 Dose: 5 mg Atorvastatin Calcium (Lipitor -) 10 mg PO HS [facility] Last Admin: 03/16/18 21:26 Dose: 10 mg Budesonide/Formoterol Fumarate (Symbicort 160/4.5mcg -) 2 puff IH BID [facility] Last Admin: 03/17/18 09:37 Dose: 2 inh Chlorhexidine Gluconate (Hibiclens For Decolonization -) 1 applic TP HS [facility] Last Admin: 03/16/18 22:00 Dose: 1 applic Diltiazem HCl (Cardizem Cd -) 120 mg PO DAILY [facility] Last Admin: 03/17/18 09:37 Dose: 120 mg Escitalopram Oxalate (Lexapro -) 10 mg PO DAILY [facility] Last Admin: 03/17/18 09:37 Dose: 10 mg Furosemide (Lasix -) 20 mg PO DAILY [facility] Last Admin: 03/17/18 09:38 Dose: 20 mg Lactobacillus Acidophilus (Bacid -) 1 tab PO DAILY [facility] Last Admin: 03/17/18 09:36 Dose: 1 tab Nystatin (Nystatin Oral Suspension -) 500,000 units PO Q6HPO [facility] Last Admin: 03/17/18 11:10 Dose: 500,000 units Polyethylene Glycol (Miralax (For Daily Use) -) 17 gm PO BID [facility] Last Admin: 03/17/18 09:38 Dose: 17 gm Prednisone (Deltasone -) 30 mg PO BID [facility] Last Admin: 03/17/18 09:37 Dose: 30 mg A/P Acute on Chronic Hypoxic and Hypercapneic Respiratory Failure Acute COPD Exacerbation 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
[2018-03-17] MEDS ORDERED: dilTIAZem HCL 25 MG/5 ML - 5 ML VIAL IVPUSH PRN (21:05)
[2018-03-17] MEDS: ATORVASTATIN CA 10 MG TABLET (FP) PO SCH (22:10)
[2018-03-17] MEDS: CHLORHEXIDINE GLUCONATE 4% CLEANSER FOR DECOLONIZATION TP SCH (22:10)
[2018-03-18] MEDS: NYSTATIN 500,000 UNITS/5 ML SUSPENSION PO SCH ×4 (00:38→18:00)
[2018-03-18] MEDS: ALPRAZolam 0.25 MG TABLET PO SCH ×4 (00:38→18:01)
[2018-03-18] MEDS: ALBUTEROL SO4 2.5/IPRATROPIUM 0.5 INH SOL 3 ML VIAL.NEB. NEB SCH ×4 (07:40→21:45)
[2018-03-18] MEDS: APIXABAN 5 MG TABLET PO SCH ×2 (09:47→21:59)
[2018-03-18] MEDS: LACTOBACILLUS ACIDOPHILUS 1 TABLET PO SCH (09:47)
[2018-03-18] MEDS: ESCITALOPRAM OXALATE 10 MG TABLET (FP) PO SCH (09:47)
[2018-03-18] MEDS: predniSONE 10 MG TABLET (UD) PO SCH ×2 (09:47→21:59)
[2018-03-18] MEDS: FUROSEMIDE 20 MG TABLET (FP) PO SCH (09:47)
[2018-03-18] MEDS: POLYETHYLENE GLYCOL 3350 119 GM BTL PO SCH ×2 (09:51→22:00)
[2018-03-18] MEDS: BUDESONIDE/FORMETEROL FUMARATE 160/4.5 mcg INHALER IH SCH ×2 (09:51→22:00)
--- NOTE | 2018-03-18 10:08 | PN ---
Progress Note, Physician History of Present Illness: No further palpitations, back in SR but had PAF with RVR yesterday night requiring IV cardizem pushes for rate-control. Dyspnea, cough and wheeze slowly improving. - Current Medication List Current Medications: Active Medications Albuterol Sulfate (Ventolin 0.083% Nebulizer Soln -) 1 amp NEB Q4H PRN PRN Reason: SHORT OF BREATH/WHEEZING Last Admin: 03/15/18 14:22 Dose: 1 amp Albuterol/Ipratropium (Duoneb -) 1 amp NEB RQID [facility] Last Admin: 03/18/18 07:40 Dose: 1 amp Alprazolam (Xanax -) 0.25 mg PO Q6HPO [facility] Last Admin: 03/18/18 06:20 Dose: 0.25 mg Apixaban (Eliquis -) 5 mg PO BID [facility] Last Admin: 03/18/18 09:47 Dose: 5 mg Atorvastatin Calcium (Lipitor -) 10 mg PO HS [facility] Last Admin: 03/17/18 22:10 Dose: 10 mg Budesonide/Formoterol Fumarate (Symbicort 160/4.5mcg -) 2 puff IH BID [facility] Last Admin: 03/18/18 09:51 Dose: 2 puff Chlorhexidine Gluconate (Hibiclens For Decolonization -) 1 applic TP HS [facility] Last Admin: 03/17/18 22:10 Dose: Not Given Diltiazem HCl (Cardizem Cd -) 120 mg PO DAILY [facility] Last Admin: 03/18/18 09:47 Dose: 120 mg Diltiazem HCl (Cardizem Injection -) 10 mg IVPUSH Q4H PRN PRN Reason: HR > 120 Last Admin: 03/17/18 23:10 Dose: 10 mg Escitalopram Oxalate (Lexapro -) 10 mg PO DAILY [facility] Last Admin: 03/18/18 09:47 Dose: 10 mg Furosemide (Lasix -) 20 mg PO DAILY [facility] Last Admin: 03/18/18 09:47 Dose: 20 mg Lactobacillus Acidophilus (Bacid -) 1 tab PO DAILY [facility] Last Admin: 03/18/18 09:47 Dose: 1 tab Nystatin (Nystatin Oral Suspension -) 500,000 units PO Q6HPO [facility] Last Admin: 03/18/18 06:20 Dose: 500,000 units Polyethylene Glycol (Miralax (For Daily Use) -) 17 gm PO BID [facility] Last Admin: 03/18/18 09:51 Dose: 17 gm Prednisone (Deltasone -) 30 mg PO BID [facility] Last Admin: 03/18/18 09:47 Dose: 30 mg - Objective Vital Signs: Vital Signs Temperature 98.1 F 03/18/18 08:27 Pulse Rate 78 03/18/18 08:27 Respiratory Rate 17 03/18/18 08:27 Blood Pressure 111/55 L 03/18/18 08:27 O2 Sat by Pulse Oximetry (%) 99 03/17/18 21:00 Constitutional: Yes: No Distress, Calm, Thin Neck: Yes: Supple Cardiovascular: Yes: Regular Rate and Rhythm Respiratory: Yes: Regular, Diminished, On Nasal O2 Gastrointestinal: Yes: Normal Bowel Sounds, Soft Edema: No Labs: CBC, BMP 03/15/18 12:00 03/15/18 12:00 INR, PTT INR 0.94 (0.83-1.09) 03/11/18 13:15 - ....Imaging EKG: Report Reviewed (Tele: PAF with RVR->SR) Problem List - Problems (1) Paroxysmal atrial fibrillation with rapid ventricular response Code(s): I48.0 - PAROXYSMAL ATRIAL FIBRILLATION (2) Acute and chronic respiratory failure with hypercapnia Code(s): J96.22 - ACUTE AND CHRONIC RESPIRATORY FAILURE WITH HYPERCAPNIA (3) Anemia Code(s): D64.9 - ANEMIA, UNSPECIFIED Qualifiers: Anemia type: unspecified type Qualified Code(s): D64.9 - Anemia, unspecified (4) COPD exacerbation Code(s): J44.1 - CHRONIC OBSTRUCTIVE PULMONARY DISEASE W (ACUTE) EXACERBATION (5) Diastolic dysfunction Code(s): I51.9 - HEART DISEASE, UNSPECIFIED (6) Hyperlipidemia Code(s): E78.5 - HYPERLIPIDEMIA, UNSPECIFIED Qualifiers: Hyperlipidemia type: pure hypercholesterolemia Qualified Code(s): E78.00 - Pure hypercholesterolemia, unspecified; E78.0 - Pure hypercholesterolemia (7) Mycobacteria, atypical Code(s): A31.9 - MYCOBACTERIAL INFECTION, UNSPECIFIED (8) Pulmonary nodule Code(s): R91.1 - SOLITARY PULMONARY NODULE Assessment/Plan 03/11/2018 Echo: Normal biventricular size and fxn, tr TR 1. Paroxysmal atrial fibrillation now in SR [id number] 2. Acute on Chronic Hypoxic and Hypercapneic Respiratory Failure referable to 3. Acute exacerbation of advanced chronic obstructive pulmonary disease on home oxygen therapy with Pulmonary HTN, resolving 4. h/o Atypical Mycobacterium 5. 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 Diastolic LV dysfunction with class 0-I NYHA classification LV failure, compensated/euvolemic 7. HTN 8. Hypercholesterolemia 9. Anemia 10. RUL mass 11. Sick euthyroid syndrome PLAN: 1. Increase Cardizem CD 120 bid with IV Cardizem as needed for rate-control 2. Complete empiric antibiotics course as per ID 3. Slow oral steroid taper, bronchodilators, O2 to keep SpO2 >90% as per the pulmonary team, Triology QHS and PRN, PET scan as outpatient 4. Given elevated risk score, continue Eliquis 5 bid with monitor hemoglobin 5. Continue Lipitor 10 qhs and Lasix 20 qd 6. Addition of ACEI or ARBS hemodynamics permitting 7. DVT prophylaxis, [facility]
--- NOTE | 2018-03-18 12:19 | PN ---
Progress Note, Physician Chief Complaint: COPD exacerbation History of Present Illness: NAD, sitting at the edge of the bed wants to go to [place] - Current Medication List Current Medications: Active Medications Albuterol Sulfate (Ventolin 0.083% Nebulizer Soln -) 1 amp NEB Q4H PRN PRN Reason: SHORT OF BREATH/WHEEZING Last Admin: 03/15/18 14:22 Dose: 1 amp Albuterol/Ipratropium (Duoneb -) 1 amp NEB RQID [facility] Last Admin: 03/18/18 07:40 Dose: 1 amp Alprazolam (Xanax -) 0.25 mg PO Q6HPO [facility] Last Admin: 03/18/18 11:34 Dose: 0.25 mg Apixaban (Eliquis -) 5 mg PO BID [facility] Last Admin: 03/18/18 09:47 Dose: 5 mg Atorvastatin Calcium (Lipitor -) 10 mg PO HS [facility] Last Admin: 03/17/18 22:10 Dose: 10 mg Budesonide/Formoterol Fumarate (Symbicort 160/4.5mcg -) 2 puff IH BID [facility] Last Admin: 03/18/18 09:51 Dose: 2 puff Chlorhexidine Gluconate (Hibiclens For Decolonization -) 1 applic TP [facility] Last Admin: 03/17/18 22:10 Dose: Not Given Diltiazem HCl (Cardizem Injection -) 10 mg IVPUSH Q4H PRN PRN Reason: HR > 120 Last Admin: 03/17/18 23:10 Dose: 10 mg Diltiazem HCl (Cardizem Cd -) 120 mg PO BID [facility] Escitalopram Oxalate (Lexapro -) 10 mg PO DAILY [facility] Last Admin: 03/18/18 09:47 Dose: 10 mg Furosemide (Lasix -) 20 mg PO DAILY [facility] Last Admin: 03/18/18 09:47 Dose: 20 mg Lactobacillus Acidophilus (Bacid -) 1 tab PO DAILY [facility] Last Admin: 03/18/18 09:47 Dose: 1 tab Nystatin (Nystatin Oral Suspension -) 500,000 units PO Q6HPO [facility] Last Admin: 03/18/18 11:34 Dose: 500,000 units Polyethylene Glycol (Miralax (For Daily Use) -) 17 gm PO BID [facility] Last Admin: 10/18/18 09:51 Dose: 17 gm Prednisone (Deltasone -) 30 mg PO BID [facility] Last Admin: 03/18/18 09:47 Dose: 30 mg - Objective Vital Signs: Vital Signs Temperature 98.1 F 03/18/18 08:27 Pulse Rate 78 03/18/18 08:27 Respiratory Rate 17 03/18/18 08:27 Blood Pressure 111/55 L 03/18/18 08:27 O2 Sat by Pulse Oximetry (%) 99 03/17/18 21:00 Constitutional: Yes: Well Nourished, No Distress, Calm Cardiovascular: Yes: Regular Rate and Rhythm Respiratory: Yes: Regular, Diminished, On Nasal O2, SOB on Exertion Gastrointestinal: Yes: Normal Bowel Sounds, Soft Musculoskeletal: Yes: WNL Extremities: Yes: WNL Edema: No Peripheral Pulses WNL: Yes Neurological: Yes: Alert, Oriented Psychiatric: Yes: Alert, Oriented Labs: CBC, BMP 03/15/18 12:00 03/15/18 12:00 INR, PTT INR 0.94 (0.83-1.09) 03/11/18 13:15 Problem List - Problems (1) COPD (chronic obstructive pulmonary disease) Code(s): J44.9 - CHRONIC OBSTRUCTIVE PULMONARY DISEASE, UNSPECIFIED Qualifiers: COPD type: unspecified COPD Qualified Code(s): J44.9 - Chronic obstructive pulmonary disease, unspecified (2) Paroxysmal A-fib Code(s): I48.0 - PAROXYSMAL ATRIAL FIBRILLATION
--- NOTE | 2018-03-18 12:28 | PN ---
Progress Note (short form) - Note Progress Note: Looks overall better. Still with some anxiety. No CP. SOB overall better. Intake & Output 03/15/18 03/16/18 03/17/18 03/18/18 23:59 23:59 23:59 23:59 Intake Total 50 1050 Output Total 8603 856 9245 Balance -1150 -300 -450 Last Vital Signs Temp Pulse Resp BP Pulse Ox 98.1 F 78 17 111/55 L 99 03/18/18 08:27 03/18/18 08:27 03/18/18 08:27 03/18/18 08:27 03/17/18 21:00 Active Medications Albuterol Sulfate (Ventolin 0.083% Nebulizer Soln -) 1 amp NEB Q4H PRN PRN Reason: SHORT OF BREATH/WHEEZING Last Admin: 03/15/18 14:22 Dose: 1 amp Albuterol/Ipratropium (Duoneb -) 1 amp NEB RQID [facility] Last Admin: 03/18/18 07:40 Dose: 1 amp Alprazolam (Xanax -) 0.25 mg PO Q6HPO [facility] Last Admin: 03/18/18 11:34 Dose: 0.25 mg Apixaban (Eliquis -) 5 mg PO BID [facility] Last Admin: 03/18/18 09:47 Dose: 5 mg Atorvastatin Calcium (Lipitor -) 10 mg PO HS [facility] Last Admin: 03/17/18 22:10 Dose: 10 mg Budesonide/Formoterol Fumarate (Symbicort 160/4.5mcg -) 2 puff IH BID [facility] Last Admin: 03/18/18 09:51 Dose: 2 puff Chlorhexidine Gluconate (Hibiclens For Decolonization -) 1 applic TP [facility] Last Admin: 03/17/18 22:10 Dose: Not Given Diltiazem HCl (Cardizem Injection -) 10 mg IVPUSH Q4H PRN PRN Reason: HR > 120 Last Admin: 03/17/18 23:10 Dose: 10 mg Diltiazem HCl (Cardizem Cd -) 120 mg PO BID [facility] Escitalopram Oxalate (Lexapro -) 10 mg PO DAILY [facility] Last Admin: 03/18/18 09:47 Dose: 10 mg Furosemide (Lasix -) 20 mg PO DAILY [facility] Last Admin: 03/18/18 09:47 Dose: 20 mg Lactobacillus Acidophilus (Bacid -) 1 tab PO DAILY [facility] Last Admin: 03/18/18 09:47 Dose: 1 tab Nystatin (Nystatin Oral Suspension -) 500,000 units PO Q6HPO [facility] Last Admin: 03/18/18 11:34 Dose: 500,000 units Polyethylene Glycol (Miralax (For Daily Use) -) 17 gm PO BID [facility] Last Admin: 03/18/18 09:51 Dose: 17 gm Prednisone (Deltasone -) 30 mg PO BID [facility] Last Admin: 03/18/18 09:47 Dose: 30 mg Gen: Awake and alert, less tachypneic at rest Heart: RRR Lung: scattered rhonchi, no active wheeze Abd: soft, nontender Ext: no edema ASSESSMENT AND PLAN: Acute on Chronic Hypoxic and Hypercapneic Respiratory Failure Acute COPD Exacerbation h/o Atypical Mycobacterium r/o Pneumonia Pulmonary HTN LV Diastolic Dysfunction Thrombocytopenia New AFib - Cardizem - Triology QHS and PRN - Slow prednsione taper - D/C planning to SNF / Rehab Dr Donovan
[2018-03-18] MEDS: ATORVASTATIN CA 10 MG TABLET (FP) PO SCH (21:59)
[2018-03-18] MEDS: CHLORHEXIDINE GLUCONATE 4% CLEANSER FOR DECOLONIZATION TP SCH (22:00)
[2018-03-19] MEDS: NYSTATIN 500,000 UNITS/5 ML SUSPENSION PO SCH ×4 (00:28→17:28)
[2018-03-19] MEDS: ALPRAZolam 0.25 MG TABLET PO SCH ×4 (00:29→17:28)
[2018-03-19] MEDS: ALBUTEROL SO4 2.5/IPRATROPIUM 0.5 INH SOL 3 ML VIAL.NEB. NEB SCH ×4 (07:48→20:19)
--- NOTE | 2018-03-19 09:51 | PN ---
Progress Note, Physician History of Present Illness: No further palpitations, remains in SR w/o further episodes PAF with RVR after starting Cardizem nightly dose. Dyspnea, cough and wheeze slowly improving. - Current Medication List Current Medications: Active Medications Albuterol Sulfate (Ventolin 0.083% Nebulizer Soln -) 1 amp NEB Q4H PRN PRN Reason: SHORT OF BREATH/WHEEZING Last Admin: 03/15/18 14:22 Dose: 1 amp Albuterol/Ipratropium (Duoneb -) 1 amp NEB RQID [facility] Last Admin: 03/19/18 07:48 Dose: 1 amp Alprazolam (Xanax -) 0.25 mg PO Q6HPO [facility] Last Admin: 03/19/18 06:18 Dose: 0.25 mg Apixaban (Eliquis -) 5 mg PO BID [facility] Last Admin: 03/18/18 21:59 Dose: 5 mg Atorvastatin Calcium (Lipitor -) 10 mg PO HS [facility] Last Admin: 03/18/18 21:59 Dose: 10 mg Budesonide/Formoterol Fumarate (Symbicort 160/4.5mcg -) 2 puff IH BID [facility] Last Admin: 03/18/18 22:00 Dose: 2 puff Chlorhexidine Gluconate (Hibiclens For Decolonization -) 1 applic TP HS [facility] Last Admin: 03/18/18 22:00 Dose: Not Given Diltiazem HCl (Cardizem Injection -) 10 mg IVPUSH Q4H PRN PRN Reason: HR > 120 Last Admin: 03/17/18 23:10 Dose: 10 mg Diltiazem HCl (Cardizem Cd -) 120 mg PO BID [facility] Last Admin: 03/18/18 21:59 Dose: 120 mg Escitalopram Oxalate (Lexapro -) 10 mg PO DAILY [facility] Last Admin: 03/18/18 09:47 Dose: 10 mg Furosemide (Lasix -) 20 mg PO DAILY [facility] Last Admin: 03/18/18 09:47 Dose: 20 mg Lactobacillus Acidophilus (Bacid -) 1 tab PO DAILY [facility] Last Admin: 03/18/18 09:47 Dose: 1 tab Nystatin (Nystatin Oral Suspension -) 500,000 units PO Q6HPO [facility] Last Admin: 03/19/18 06:18 Dose: 500,000 units Polyethylene Glycol (Miralax (For Daily Use) -) 17 gm PO BID [facility] Last Admin: 03/18/18 22:00 Dose: 17 gm Prednisone (Deltasone -) 30 mg PO BID [facility] Last Admin: 03/18/18 21:59 Dose: 30 mg - Objective Vital Signs: Vital Signs Temperature 98.0 F 03/19/18 09:00 Pulse Rate 79 03/19/18 09:00 Respiratory Rate 20 03/19/18 09:00 Blood Pressure 143/65 03/19/18 09:00 O2 Sat by Pulse Oximetry (%) 95 03/19/18 09:00 Constitutional: Yes: No Distress, Calm, Thin Neck: Yes: Supple Cardiovascular: Yes: Regular Rate and Rhythm Respiratory: Yes: Regular, Diminished, On Nasal O2 Gastrointestinal: Yes: Normal Bowel Sounds, Soft Edema: No Labs: CBC, BMP 03/15/18 12:00 03/15/18 12:00 INR, PTT INR 0.94 (0.83-1.09) 03/11/18 13:15 Problem List - Problems (1) Paroxysmal atrial fibrillation with rapid ventricular response Code(s): I48.0 - PAROXYSMAL ATRIAL FIBRILLATION (2) Acute and chronic respiratory failure with hypercapnia Code(s): J96.22 - ACUTE AND CHRONIC RESPIRATORY FAILURE WITH HYPERCAPNIA (3) Anemia Code(s): D64.9 - ANEMIA, UNSPECIFIED Qualifiers: Anemia type: unspecified type Qualified Code(s): D64.9 - Anemia, unspecified (4) COPD exacerbation Code(s): J44.1 - CHRONIC OBSTRUCTIVE PULMONARY DISEASE W (ACUTE) EXACERBATION (5) Diastolic dysfunction Code(s): I51.9 - HEART DISEASE, UNSPECIFIED (6) Hyperlipidemia Code(s): E78.5 - HYPERLIPIDEMIA, UNSPECIFIED Qualifiers: Hyperlipidemia type: pure hypercholesterolemia Qualified Code(s): E78.00 - Pure hypercholesterolemia, unspecified; E78.0 - Pure hypercholesterolemia (7) Mycobacteria, atypical Code(s): A31.9 - MYCOBACTERIAL INFECTION, UNSPECIFIED (8) Pulmonary nodule Code(s): R91.1 - SOLITARY PULMONARY NODULE Assessment/Plan 03/11/2018 Echo: Normal biventricular size and fxn, tr TR 1. Paroxysmal atrial fibrillation now in SR [id number] 2. Acute on Chronic Hypoxic and Hypercapneic Respiratory Failure referable to 3. Acute exacerbation of advanced chronic obstructive pulmonary disease on home oxygen therapy with Pulmonary HTN, resolving 4. h/o Atypical Mycobacterium 5. 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 Diastolic LV dysfunction with class 0-I NYHA classification LV failure, compensated/euvolemic 7. HTN 8. Hypercholesterolemia 9. RUL mass 10. Sick euthyroid syndrome PLAN: 1. Continue Cardizem CD 120 bid with IV Cardizem as needed for rate-control 2. Completed empiric antibiotics course as per ID 3. Slow oral steroid taper, bronchodilators, O2 to keep SpO2 >90% as per the pulmonary team, Triology QHS and PRN, PET scan as outpatient 4. Given elevated risk score, continue Eliquis 5 bid with monitor hemoglobin 5. Continue Lipitor 10 qhs and Lasix 20 qd 6. Addition of ACEI or ARBS hemodynamics permitting 7. DVT prophylaxis, PT->d/c planning to [place] [facility]
[2018-03-19] MEDS: LACTOBACILLUS ACIDOPHILUS 1 TABLET PO SCH (10:15)
[2018-03-19] MEDS: predniSONE 10 MG TABLET (UD) PO SCH ×2 (10:15→22:13)
[2018-03-19] MEDS: APIXABAN 5 MG TABLET PO SCH ×2 (10:15→22:13)
[2018-03-19] MEDS: FUROSEMIDE 20 MG TABLET (FP) PO SCH (10:15)
[2018-03-19] MEDS: ESCITALOPRAM OXALATE 10 MG TABLET (FP) PO SCH (10:15)
[2018-03-19] MEDS: POLYETHYLENE GLYCOL 3350 119 GM BTL PO SCH ×2 (10:19→22:13)
[2018-03-19] MEDS: BUDESONIDE/FORMETEROL FUMARATE 160/4.5 mcg INHALER IH SCH ×2 (10:22→22:16)
--- NOTE | 2018-03-19 11:45 | PN ---
Progress Note, Physician History of Present Illness: Pulmonary alert,comfortable, breathing back to baseline - Current Medication List Current Medications: Active Medications Albuterol Sulfate (Ventolin 0.083% Nebulizer Soln -) 1 amp NEB Q4H PRN PRN Reason: SHORT OF BREATH/WHEEZING Last Admin: 03/15/18 14:22 Dose: 1 amp Albuterol/Ipratropium (Duoneb -) 1 amp NEB RQID [facility] Last Admin: 03/19/18 07:48 Dose: 1 amp Alprazolam (Xanax -) 0.25 mg PO Q6HPO [facility] Last Admin: 03/19/18 06:18 Dose: 0.25 mg Apixaban (Eliquis -) 5 mg PO BID [facility] Last Admin: 03/19/18 10:15 Dose: 5 mg Atorvastatin Calcium (Lipitor -) 10 mg PO HS [facility] Last Admin: 03/18/18 21:59 Dose: 10 mg Budesonide/Formoterol Fumarate (Symbicort 160/4.5mcg -) 2 puff IH BID [facility] Last Admin: 03/19/18 10:22 Dose: 2 puff Chlorhexidine Gluconate (Hibiclens For Decolonization -) 1 applic TP HS [facility] Last Admin: 03/18/18 22:00 Dose: Not Given Diltiazem HCl (Cardizem Injection -) 10 mg IVPUSH Q4H PRN PRN Reason: HR > 120 Last Admin: 03/17/18 23:10 Dose: 10 mg Diltiazem HCl (Cardizem Cd -) 120 mg PO BID [facility] Last Admin: 03/19/18 10:15 Dose: 120 mg Escitalopram Oxalate (Lexapro -) 10 mg PO DAILY [facility] Last Admin: 03/19/18 10:15 Dose: 10 mg Furosemide (Lasix -) 20 mg PO DAILY [facility] Last Admin: 03/19/18 10:15 Dose: 20 mg Lactobacillus Acidophilus (Bacid -) 1 tab PO DAILY [facility] Last Admin: 03/19/18 10:15 Dose: 1 tab Nystatin (Nystatin Oral Suspension -) 500,000 units PO Q6HPO [facility] Last Admin: 03/19/18 06:18 Dose: 500,000 units Polyethylene Glycol (Miralax (For Daily Use) -) 17 gm PO BID [facility] Last Admin: 03/19/18 10:19 Dose: 17 gm Prednisone (Deltasone -) 30 mg PO BID [facility] Last Admin: 03/19/18 10:15 Dose: 30 mg - Objective Vital Signs: Vital Signs Temperature 98.0 F 03/19/18 09:00 Pulse Rate 79 03/19/18 09:00 Respiratory Rate 20 03/19/18 09:00 Blood Pressure 143/65 03/19/18 09:00 O2 Sat by Pulse Oximetry (%) 95 03/19/18 09:00 Constitutional: Yes: Well Nourished, Calm Eyes: Yes: WNL HENT: Yes: WNL Neck: Yes: WNL Cardiovascular: Yes: Regular Rate and Rhythm, S1, S2 Respiratory: Yes: Diminished Gastrointestinal: Yes: Normal Bowel Sounds, Soft Extremities: Yes: WNL Edema: No Labs: CBC, BMP 03/15/18 12:00 Assessment/Plan ASSESSMENT AND PLAN: Acute on Chronic Hypoxic and Hypercapneic Respiratory Failure Acute COPD Exacerbation improved 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
--- NOTE | 2018-03-19 11:52 | PN ---
Progress Note, Physician Chief Complaint: COPD exacerbation History of Present Illness: NAD, sitting at the edge of the bed wants to go to [place] - Current Medication List Current Medications: Active Medications Albuterol Sulfate (Ventolin 0.083% Nebulizer Soln -) 1 amp NEB Q4H PRN PRN Reason: SHORT OF BREATH/WHEEZING Last Admin: 03/15/18 14:22 Dose: 1 amp Albuterol/Ipratropium (Duoneb -) 1 amp NEB RQID [facility] Last Admin: 03/19/18 07:48 Dose: 1 amp Alprazolam (Xanax -) 0.25 mg PO Q6HPO [facility] Last Admin: 03/19/18 06:18 Dose: 0.25 mg Apixaban (Eliquis -) 5 mg PO BID [facility] Last Admin: 03/19/18 10:15 Dose: 5 mg Atorvastatin Calcium (Lipitor -) 10 mg PO HS [facility] Last Admin: 03/18/18 21:59 Dose: 10 mg Budesonide/Formoterol Fumarate (Symbicort 160/4.5mcg -) 2 puff IH BID [facility] Last Admin: 03/19/18 10:22 Dose: 2 puff Chlorhexidine Gluconate (Hibiclens For Decolonization -) 1 applic TP HS [facility] Last Admin: 03/18/18 22:00 Dose: Not Given Diltiazem HCl (Cardizem Injection -) 10 mg IVPUSH Q4H PRN PRN Reason: HR > 120 Last Admin: 03/17/18 23:10 Dose: 10 mg Diltiazem HCl (Cardizem Cd -) 120 mg PO BID [facility] Last Admin: 03/19/18 10:15 Dose: 120 mg Escitalopram Oxalate (Lexapro -) 10 mg PO DAILY [facility] Last Admin: 03/19/18 10:15 Dose: 10 mg Furosemide (Lasix -) 20 mg PO DAILY [facility] Last Admin: 03/19/18 10:15 Dose: 20 mg Lactobacillus Acidophilus (Bacid -) 1 tab PO DAILY [facility] Last Admin: 03/19/18 10:15 Dose: 1 tab Nystatin (Nystatin Oral Suspension -) 500,000 units PO Q6HPO [facility] Last Admin: 03/19/18 06:18 Dose: 500,000 units Polyethylene Glycol (Miralax (For Daily Use) -) 17 gm PO BID [facility] Last Admin: 03/19/18 10:19 Dose: 17 gm Prednisone (Deltasone -) 30 mg PO BID [facility] Last Admin: 03/19/18 10:15 Dose: 30 mg - Objective Vital Signs: Vital Signs Temperature 98.0 F 03/19/18 09:00 Pulse Rate 79 03/19/18 09:00 Respiratory Rate 20 03/19/18 09:00 Blood Pressure 143/65 03/19/18 09:00 O2 Sat by Pulse Oximetry (%) 95 03/19/18 09:00 Constitutional: Yes: Well Nourished, No Distress, Calm Cardiovascular: Yes: Regular Rate and Rhythm Respiratory: Yes: Diminished, On Nasal O2, SOB on Exertion Gastrointestinal: Yes: Normal Bowel Sounds, Soft Musculoskeletal: Yes: WNL Extremities: Yes: WNL Edema: No Peripheral Pulses WNL: Yes Neurological: Yes: Alert, Oriented Psychiatric: Yes: Alert, Oriented Labs: CBC, BMP 03/15/18 12:00 03/15/18 12:00 INR, PTT INR 0.94 (0.83-1.09) 03/11/18 13:15 Problem List - Problems (1) COPD (chronic obstructive pulmonary disease) Assessment/Plan: -Nasal O2 -Pulmonary on borad -Bronchodilators -On PO steroids Code(s): J44.9 - CHRONIC OBSTRUCTIVE PULMONARY DISEASE, UNSPECIFIED Qualifiers: COPD type: unspecified COPD Qualified Code(s): J44.9 - Chronic obstructive pulmonary disease, unspecified (2) Paroxysmal A-fib Code(s): I48.0 - PAROXYSMAL ATRIAL FIBRILLATION (3) Hyperthyroidism Code(s): E05.90 - THYROTOXICOSIS, UNSP WITHOUT THYROTOXIC CRISIS OR STORM
[2018-03-19] MEDS: ATORVASTATIN CA 10 MG TABLET (FP) PO SCH (22:14)
[2018-03-19] MEDS: CHLORHEXIDINE GLUCONATE 4% CLEANSER FOR DECOLONIZATION TP SCH (22:14)
[2018-03-20] MEDS: ALPRAZolam 0.25 MG TABLET PO SCH ×5 (00:38→23:25)
[2018-03-20] MEDS: NYSTATIN 500,000 UNITS/5 ML SUSPENSION PO SCH ×5 (00:38→23:26)
[2018-03-20] MEDS: ALBUTEROL SO4 2.5/IPRATROPIUM 0.5 INH SOL 3 ML VIAL.NEB. NEB SCH ×4 (08:43→20:33)
--- NOTE | 2018-03-20 10:33 | PN ---
Progress Note, Physician History of Present Illness: PULMONARY comfortable,-resp distress,+ vogt - Current Medication List Current Medications: Active Medications Albuterol Sulfate (Ventolin 0.083% Nebulizer Soln -) 1 amp NEB Q4H PRN PRN Reason: SHORT OF BREATH/WHEEZING Last Admin: 03/15/18 14:22 Dose: 1 amp Albuterol/Ipratropium (Duoneb -) 1 amp NEB RQID [facility] Last Admin: 03/20/18 08:43 Dose: 1 amp Alprazolam (Xanax -) 0.25 mg PO Q6HPO [facility] Last Admin: 03/20/18 05:54 Dose: 0.25 mg Apixaban (Eliquis -) 5 mg PO BID [facility] Last Admin: 03/19/18 22:13 Dose: 5 mg Atorvastatin Calcium (Lipitor -) 10 mg PO HS [facility] Last Admin: 03/19/18 22:14 Dose: 10 mg Budesonide/Formoterol Fumarate (Symbicort 160/4.5mcg -) 2 puff IH BID [facility] Last Admin: 03/19/18 22:16 Dose: 2 puff Chlorhexidine Gluconate (Hibiclens For Decolonization -) 1 applic TP HS [facility] Last Admin: 03/19/18 22:14 Dose: Not Given Diltiazem HCl (Cardizem Injection -) 10 mg IVPUSH Q4H PRN PRN Reason: HR > 120 Last Admin: 03/17/18 23:10 Dose: 10 mg Diltiazem HCl (Cardizem Cd -) 120 mg PO BID [facility] Last Admin: 03/19/18 22:13 Dose: 120 mg Escitalopram Oxalate (Lexapro -) 10 mg PO DAILY [facility] Last Admin: 03/19/18 10:15 Dose: 10 mg Furosemide (Lasix -) 20 mg PO DAILY [facility] Last Admin: 03/19/18 10:15 Dose: 20 mg Lactobacillus Acidophilus (Bacid -) 1 tab PO DAILY [facility] Last Admin: 03/19/18 10:15 Dose: 1 tab Nystatin (Nystatin Oral Suspension -) 500,000 units PO Q6HPO [facility] Last Admin: 03/20/18 05:55 Dose: 500,000 units Polyethylene Glycol (Miralax (For Daily Use) -) 17 gm PO BID [facility] Last Admin: 03/19/18 22:13 Dose: 17 gm Prednisone (Deltasone -) 30 mg PO BID [facility] Last Admin: 03/19/18 22:13 Dose: 30 mg - Objective Vital Signs: Vital Signs Temperature 97.8 F 03/20/18 06:00 Pulse Rate 69 03/20/18 06:00 Respiratory Rate 20 03/20/18 06:00 Blood Pressure 129/68 03/20/18 06:00 O2 Sat by Pulse Oximetry (%) 94 L 03/19/18 22:41 Constitutional: Yes: Well Nourished, Calm Eyes: Yes: WNL HENT: Yes: WNL Neck: Yes: WNL Cardiovascular: Yes: Regular Rate and Rhythm, S1, S2 Respiratory: Yes: Diminished Gastrointestinal: Yes: Normal Bowel Sounds, Soft Extremities: Yes: WNL Edema: No Labs: Assessment/Plan ASSESSMENT AND PLAN: Acute on Chronic Hypoxic and Hypercapneic Respiratory Failure Acute COPD Exacerbation improved 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
[2018-03-20] MEDS: predniSONE 10 MG TABLET (UD) PO SCH ×2 (11:00→22:05)
[2018-03-20] MEDS: LACTOBACILLUS ACIDOPHILUS 1 TABLET PO SCH (11:00)
[2018-03-20] MEDS: ESCITALOPRAM OXALATE 10 MG TABLET (FP) PO SCH (11:00)
[2018-03-20] MEDS: APIXABAN 5 MG TABLET PO SCH ×2 (11:00→22:06)
[2018-03-20] MEDS: FUROSEMIDE 20 MG TABLET (FP) PO SCH (11:00)
[2018-03-20] MEDS: BUDESONIDE/FORMETEROL FUMARATE 160/4.5 mcg INHALER IH SCH ×2 (11:52→22:08)
[2018-03-20] MEDS: POLYETHYLENE GLYCOL 3350 119 GM BTL PO SCH ×2 (11:53→22:06)
--- NOTE | 2018-03-20 13:34 | PN ---
Progress Note, Physician Chief Complaint: Events noted Tolerating therapy dependent of O2 and CPAP History of Present Illness: Patient was seen and examined. Awake and alert. Chart was reviewed Denies chest pain or palpitations - Current Medication List Current Medications: Active Medications Albuterol Sulfate (Ventolin 0.083% Nebulizer Soln -) 1 amp NEB Q4H PRN PRN Reason: SHORT OF BREATH/WHEEZING Last Admin: 03/15/18 14:22 Dose: 1 amp Albuterol/Ipratropium (Duoneb -) 1 amp NEB RQID [facility] Last Admin: 03/20/18 12:48 Dose: 1 amp Alprazolam (Xanax -) 0.25 mg PO Q6HPO [facility] Last Admin: 03/20/18 11:00 Dose: 0.25 mg Apixaban (Eliquis -) 5 mg PO BID [facility] Last Admin: 03/20/18 11:00 Dose: 5 mg Atorvastatin Calcium (Lipitor -) 10 mg PO HS [facility] Last Admin: 03/19/18 22:14 Dose: 10 mg Budesonide/Formoterol Fumarate (Symbicort 160/4.5mcg -) 2 puff IH BID [facility] Last Admin: 03/20/18 11:52 Dose: 2 puff Chlorhexidine Gluconate (Hibiclens For Decolonization -) 1 applic TP HS [facility] Last Admin: 03/19/18 22:14 Dose: Not Given Diltiazem HCl (Cardizem Injection -) 10 mg IVPUSH Q4H PRN PRN Reason: HR > 120 Last Admin: 03/17/18 23:10 Dose: 10 mg Diltiazem HCl (Cardizem Cd -) 120 mg PO BID [facility] Last Admin: 03/20/18 11:00 Dose: 120 mg Escitalopram Oxalate (Lexapro -) 10 mg PO DAILY [facility] Last Admin: 03/20/18 11:00 Dose: 10 mg Furosemide (Lasix -) 20 mg PO DAILY [facility] Last Admin: 03/20/18 11:00 Dose: 20 mg Lactobacillus Acidophilus (Bacid -) 1 tab PO DAILY [facility] Last Admin: 03/20/18 11:00 Dose: 1 tab Nystatin (Nystatin Oral Suspension -) 500,000 units PO Q6HPO [facility] Last Admin: 03/20/18 11:00 Dose: 500,000 units Polyethylene Glycol (Miralax (For Daily Use) -) 17 gm PO BID [facility] Last Admin: 03/20/18 11:53 Dose: 17 gm Prednisone (Deltasone -) 30 mg PO BID [facility] Last Admin: 03/20/18 11:00 Dose: 30 mg - Objective Vital Signs: Vital Signs Temperature 98 F 03/20/18 10:00 Pulse Rate 70 03/20/18 10:00 Respiratory Rate 20 03/20/18 10:00 Blood Pressure 134/63 03/20/18 10:00 O2 Sat by Pulse Oximetry (%) 97 03/20/18 09:00 Neck: Yes: Supple Cardiovascular: Yes: Regular Rate and Rhythm Respiratory: Yes: Diminished, On Nasal O2 Gastrointestinal: Yes: Normal Bowel Sounds, Soft. No: Tenderness Edema: No Problem List - Problems (1) Acute respiratory distress Code(s): J80 - ACUTE RESPIRATORY DISTRESS SYNDROME (2) COPD (chronic obstructive pulmonary disease) Code(s): J44.9 - CHRONIC OBSTRUCTIVE PULMONARY DISEASE, UNSPECIFIED Qualifiers: COPD type: unspecified COPD Qualified Code(s): J44.9 - Chronic obstructive pulmonary disease, unspecified (3) Paroxysmal A-fib Code(s): I48.0 - PAROXYSMAL ATRIAL FIBRILLATION (4) Sick-euthyroid syndrome Code(s): E07.81 - SICK-EUTHYROID SYNDROME (5) Acute and chronic respiratory failure Code(s): J96.20 - ACUTE AND CHR RESP FAILURE, UNSP W HYPOXIA OR HYPERCAPNIA Qualifiers: Respiratory failure complication: hypoxia and hypercapnia Qualified Code(s) : J96.21 - Acute and chronic respiratory failure with hypoxia; J96.22 - Acute and chronic respiratory failure with hypercapnia (6) Anemia Code(s): D64.9 - ANEMIA, UNSPECIFIED Qualifiers: Anemia type: unspecified type Qualified Code(s): D64.9 - Anemia, unspecified (7) Arteriosclerotic heart disease (ASHD) Code(s): I25.10 - ATHSCL HEART DISEASE OF [place] CORONARY ARTERY W/O ANG PCTRS (8) COPD exacerbation Code(s): J44.1 - CHRONIC OBSTRUCTIVE PULMONARY DISEASE W (ACUTE) EXACERBATION (9) Diastolic dysfunction Code(s): I51.9 - HEART DISEASE, UNSPECIFIED (10) Hyperlipidemia Code(s): E78.5 - HYPERLIPIDEMIA, UNSPECIFIED Qualifiers: Hyperlipidemia type: pure hypercholesterolemia Qualified Code(s): E78.00 - Pure hypercholesterolemia, unspecified; E78.0 - Pure hypercholesterolemia (11) Pulmonary hypertension Code(s): I27.20 - PULMONARY HYPERTENSION, UNSPECIFIED Assessment/Plan 1. Paroxysmal atrial fibrillation now in sinus rhythm [id number] 2. Acute on Chronic Hypoxic and Hypercapneic Respiratory Failure 3. Acute exacerbation of advanced chronic obstructive pulmonary disease on home oxygen therapy with Pulmonary HTN 4. Atypical Mycobacterium 5. 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 Diastolic LV dysfunction with class 0-I NYHA classification LV failure, compensated/euvolemic 7. HTN 8. Hypercholesterolemia 9. RUL mass 10. Sick euthyroid syndrome PLAN: 1. Continue Cardizem CD 120 bid 2. Completed empiric antibiotics course as per ID 3. Slow oral steroid taper, bronchodilators, O2 to keep SpO2 >90% as per the pulmonary 4. Given elevated risk score, continue Eliquis 5 bid with monitor hemoglobin 5. Continue Lipitor 10 qhs and Lasix 20 qd 6. Addition of ACEI or ARBS hemodynamics permitting 7. DVT prophylaxis 8. Await transfer to [facility] Toni Mares MD
--- NOTE | 2018-03-20 15:24 | PN ---
Progress Note, Physician Chief Complaint: AWAKE ALERT EVENTS AND NOTES REVIEWED COMFORTABLE ON 02 SUPPORT - Current Medication List Current Medications: Active Medications Albuterol Sulfate (Ventolin 0.083% Nebulizer Soln -) 1 amp NEB Q4H PRN PRN Reason: SHORT OF BREATH/WHEEZING Last Admin: 03/15/18 14:22 Dose: 1 amp Albuterol/Ipratropium (Duoneb -) 1 amp NEB RQID [facility] Last Admin: 03/20/18 12:48 Dose: 1 amp Alprazolam (Xanax -) 0.25 mg PO Q6HPO [facility] Last Admin: 03/20/18 11:00 Dose: 0.25 mg Apixaban (Eliquis -) 5 mg PO BID [facility] Last Admin: 03/20/18 11:00 Dose: 5 mg Atorvastatin Calcium (Lipitor -) 10 mg PO HS [facility] Last Admin: 03/19/18 22:14 Dose: 10 mg Budesonide/Formoterol Fumarate (Symbicort 160/4.5mcg -) 2 puff IH BID [facility] Last Admin: 03/20/18 11:52 Dose: 2 puff Chlorhexidine Gluconate (Hibiclens For Decolonization -) 1 applic TP [facility] Last Admin: 03/19/18 22:14 Dose: Not Given Diltiazem HCl (Cardizem Injection -) 10 mg IVPUSH Q4H PRN PRN Reason: HR > 120 Last Admin: 03/17/18 23:10 Dose: 10 mg Diltiazem HCl (Cardizem Cd -) 120 mg PO BID [facility] Last Admin: 03/20/18 11:00 Dose: 120 mg Escitalopram Oxalate (Lexapro -) 10 mg PO DAILY [facility] Last Admin: 03/20/18 11:00 Dose: 10 mg Furosemide (Lasix -) 20 mg PO DAILY [facility] Last Admin: 03/20/18 11:00 Dose: 20 mg Lactobacillus Acidophilus (Bacid -) 1 tab PO DAILY [facility] Last Admin: 03/20/18 11:00 Dose: 1 tab Nystatin (Nystatin Oral Suspension -) 500,000 units PO Q6HPO [facility] Last Admin: 03/20/18 11:00 Dose: 500,000 units Polyethylene Glycol (Miralax (For Daily Use) -) 17 gm PO BID [facility] Last Admin: 03/20/18 11:53 Dose: 17 gm Prednisone (Deltasone -) 30 mg PO BID [facility] Last Admin: 03/20/18 11:00 Dose: 30 mg - Objective Vital Signs: Vital Signs Temperature 97.6 F 03/20/18 14:00 Pulse Rate 95 H 03/20/18 14:00 Respiratory Rate 20 03/20/18 14:00 Blood Pressure 130/55 L 03/20/18 14:00 O2 Sat by Pulse Oximetry (%) 97 03/20/18 09:00 Constitutional: Yes: Mild Distress Eyes: Yes: WNL HENT: Yes: WNL Neck: Yes: WNL Cardiovascular: Yes: Regular Rate and Rhythm Respiratory: Yes: Diminished, On Nasal O2 Gastrointestinal: Yes: WNL Genitourinary: Yes: WNL Musculoskeletal: Yes: Muscle Weakness Extremities: Yes: WNL Edema: No Peripheral Pulses WNL: Yes Integumentary: Yes: WNL Neurological: Yes: WNL ...Motor Strength: LLE, RLE Psychiatric: Yes: Other Labs: CBC, BMP 03/15/18 12:00 03/15/18 12:00 INR, PTT INR 0.94 (0.83-1.09) 03/11/18 13:15 Problem List - Problems (1) Acute respiratory distress Code(s): J80 - ACUTE RESPIRATORY DISTRESS SYNDROME (2) COPD (chronic obstructive pulmonary disease) Code(s): J44.9 - CHRONIC OBSTRUCTIVE PULMONARY DISEASE, UNSPECIFIED Qualifiers: COPD type: unspecified COPD Qualified Code(s): J44.9 - Chronic obstructive pulmonary disease, unspecified (3) Hyperthyroidism Code(s): E05.90 - THYROTOXICOSIS, UNSP WITHOUT THYROTOXIC CRISIS OR STORM (4) Paroxysmal A-fib Code(s): I48.0 - PAROXYSMAL ATRIAL FIBRILLATION (5) Paroxysmal atrial fibrillation with rapid ventricular response Code(s): I48.0 - PAROXYSMAL ATRIAL FIBRILLATION (6) Acute and chronic respiratory failure with hypercapnia Code(s): J96.22 - ACUTE AND CHRONIC RESPIRATORY FAILURE WITH HYPERCAPNIA (7) Panic attack Code(s): F41.0 - PANIC DISORDER [EPISODIC PAROXYSMAL ANXIETY] (8) BPH (benign prostatic hypertrophy) Code(s): N40.0 - BENIGN PROSTATIC HYPERPLASIA WITHOUT LOWER URINRY TRACT SYMP Assessment/Plan STEROID TAPER 02 SUPPORT CHRONIC LUNG DISEASE WITH ACUTE EXACERBATIONS OOB TO CHAIR PT PULM EVAL CARDIO F/U DVT PROPHYLAXIS
[2018-03-20] MEDS: ATORVASTATIN CA 10 MG TABLET (FP) PO SCH (22:06)
[2018-03-20] MEDS: CHLORHEXIDINE GLUCONATE 4% CLEANSER FOR DECOLONIZATION TP SCH (22:07)
[2018-03-21] MEDS: ALPRAZolam 0.25 MG TABLET PO SCH ×4 (05:37→23:40)
[2018-03-21] MEDS: NYSTATIN 500,000 UNITS/5 ML SUSPENSION PO SCH ×4 (05:37→23:40)
[2018-03-21] MEDS: ALBUTEROL SO4 2.5/IPRATROPIUM 0.5 INH SOL 3 ML VIAL.NEB. NEB SCH (07:29)
[2018-03-21] MEDS: LACTOBACILLUS ACIDOPHILUS 1 TABLET PO SCH (10:18)
[2018-03-21] MEDS: predniSONE 10 MG TABLET (UD) PO SCH ×2 (10:19→22:13)
[2018-03-21] MEDS: ESCITALOPRAM OXALATE 10 MG TABLET (FP) PO SCH (10:20)
[2018-03-21] MEDS: FUROSEMIDE 20 MG TABLET (FP) PO SCH (10:20)
[2018-03-21] MEDS: APIXABAN 5 MG TABLET PO SCH ×2 (10:20→22:14)
[2018-03-21] MEDS: BUDESONIDE/FORMETEROL FUMARATE 160/4.5 mcg INHALER IH SCH ×2 (10:21→22:16)
[2018-03-21] MEDS: POLYETHYLENE GLYCOL 3350 119 GM BTL PO SCH ×2 (10:22→22:14)
--- NOTE | 2018-03-21 10:38 | PN ---
Progress Note, Physician History of Present Illness: PULMONARY ALERT,NO DISTRESS,-SOB,CP - Current Medication List Current Medications: Active Medications Albuterol Sulfate (Ventolin 0.083% Nebulizer Soln -) 1 amp NEB Q4H PRN PRN Reason: SHORT OF BREATH/WHEEZING Last Admin: 03/15/18 14:22 Dose: 1 amp Albuterol/Ipratropium (Duoneb -) 1 amp NEB RQID [facility] Last Admin: 03/21/18 07:29 Dose: 1 amp Alprazolam (Xanax -) 0.25 mg PO Q6HPO [facility] Last Admin: 03/21/18 05:37 Dose: 0.25 mg Apixaban (Eliquis -) 5 mg PO BID [facility] Last Admin: 03/21/18 10:20 Dose: 5 mg Atorvastatin Calcium (Lipitor -) 10 mg PO HS [facility] Last Admin: 03/20/18 22:06 Dose: 10 mg Budesonide/Formoterol Fumarate (Symbicort 160/4.5mcg -) 2 puff IH BID [facility] Last Admin: 03/21/18 10:21 Dose: 2 puff Chlorhexidine Gluconate (Hibiclens For Decolonization -) 1 applic TP HS [facility] Last Admin: 03/20/18 22:07 Dose: Not Given Diltiazem HCl (Cardizem Injection -) 10 mg IVPUSH Q4H PRN PRN Reason: HR > 120 Last Admin: 03/17/18 23:10 Dose: 10 mg Diltiazem HCl (Cardizem Cd -) 120 mg PO BID [facility] Last Admin: 03/21/18 10:19 Dose: 120 mg Escitalopram Oxalate (Lexapro -) 10 mg PO DAILY [facility] Last Admin: 03/21/18 10:20 Dose: 10 mg Furosemide (Lasix -) 20 mg PO DAILY [facility] Last Admin: 03/21/18 10:20 Dose: 20 mg Lactobacillus Acidophilus (Bacid -) 1 tab PO DAILY [facility] Last Admin: 03/21/18 10:18 Dose: 1 tab Nystatin (Nystatin Oral Suspension -) 500,000 units PO Q6HPO [facility] Last Admin: 03/21/18 05:37 Dose: 500,000 units Polyethylene Glycol (Miralax (For Daily Use) -) 17 gm PO BID [facility] Last Admin: 03/21/18 10:22 Dose: 17 gm Prednisone (Deltasone -) 30 mg PO BID [facility] Last Admin: 03/21/18 10:19 Dose: 30 mg - Objective Vital Signs: Vital Signs Temperature 97.5 F L 03/21/18 05:00 Pulse Rate 70 03/21/18 05:00 Respiratory Rate 20 03/21/18 05:00 Blood Pressure 140/54 L 03/21/18 05:00 O2 Sat by Pulse Oximetry (%) 97 03/20/18 20:50 Constitutional: Yes: Calm, Thin Eyes: Yes: WNL HENT: Yes: WNL Neck: Yes: WNL Cardiovascular: Yes: Pulse Irregular, S1, S2 Respiratory: Yes: Diminished Extremities: Yes: WNL Edema: No Labs: CBC, BMP Assessment/Plan ASSESSMENT AND PLAN: Acute on Chronic Hypoxic and Hypercapneic Respiratory Failure Acute COPD Exacerbation improved 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
--- NOTE | 2018-03-21 11:17 | PN ---
Progress Note, Physician Chief Complaint: Events noted Tolerating therapy dependent of O2 and CPAP History of Present Illness: Patient was seen and examined. Awake and alert. Chart was reviewed Denies chest pain or palpitations - Current Medication List Current Medications: Active Medications Alprazolam (Xanax -) 0.25 mg PO Q6HPO [facility] Last Admin: 03/21/18 05:37 Dose: 0.25 mg Apixaban (Eliquis -) 5 mg PO BID [facility] Last Admin: 03/21/18 10:20 Dose: 5 mg Atorvastatin Calcium (Lipitor -) 10 mg PO HS [facility] Last Admin: 03/20/18 22:06 Dose: 10 mg Budesonide/Formoterol Fumarate (Symbicort 160/4.5mcg -) 2 puff IH BID [facility] Last Admin: 03/21/18 10:21 Dose: 2 puff Chlorhexidine Gluconate (Hibiclens For Decolonization -) 1 applic TP [facility] Last Admin: 03/20/18 22:07 Dose: Not Given Diltiazem HCl (Cardizem Injection -) 10 mg IVPUSH Q4H PRN PRN Reason: HR > 120 Last Admin: 03/17/18 23:10 Dose: 10 mg Diltiazem HCl (Cardizem Cd -) 120 mg PO BID [facility] Last Admin: 03/21/18 10:19 Dose: 120 mg Escitalopram Oxalate (Lexapro -) 10 mg PO DAILY [facility] Last Admin: 03/21/18 10:20 Dose: 10 mg Furosemide (Lasix -) 20 mg PO DAILY [facility] Last Admin: 03/21/18 10:20 Dose: 20 mg Lactobacillus Acidophilus (Bacid -) 1 tab PO DAILY [facility] Last Admin: 03/21/18 10:18 Dose: 1 tab Nystatin (Nystatin Oral Suspension -) 500,000 units PO Q6HPO [facility] Last Admin: 03/21/18 05:37 Dose: 500,000 units Polyethylene Glycol (Miralax (For Daily Use) -) 17 gm PO BID [facility] Last Admin: 03/21/18 10:22 Dose: 17 gm Prednisone (Deltasone -) 30 mg PO BID [facility] Last Admin: 03/21/18 10:19 Dose: 30 mg - Objective Vital Signs: Vital Signs Temperature 97.5 F L 03/21/18 05:00 Pulse Rate 70 03/21/18 05:00 Respiratory Rate 20 03/21/18 05:00 Blood Pressure 140/54 L 03/21/18 05:00 O2 Sat by Pulse Oximetry (%) 97 03/20/18 20:50 HENT: Yes: Atraumatic Neck: Yes: Supple Cardiovascular: Yes: Regular Rate and Rhythm, S1, S2 Respiratory: Yes: Diminished Gastrointestinal: Yes: Normal Bowel Sounds, Soft Edema: No Problem List - Problems (1) Acute respiratory distress Code(s): J80 - ACUTE RESPIRATORY DISTRESS SYNDROME (2) COPD (chronic obstructive pulmonary disease) Code(s): J44.9 - CHRONIC OBSTRUCTIVE PULMONARY DISEASE, UNSPECIFIED Qualifiers: COPD type: unspecified COPD Qualified Code(s): J44.9 - Chronic obstructive pulmonary disease, unspecified (3) Paroxysmal A-fib Code(s): I48.0 - PAROXYSMAL ATRIAL FIBRILLATION (4) Sick-euthyroid syndrome Code(s): E07.81 - SICK-EUTHYROID SYNDROME (5) Acute and chronic respiratory failure Code(s): J96.20 - ACUTE AND CHR RESP FAILURE, UNSP W HYPOXIA OR HYPERCAPNIA Qualifiers: Respiratory failure complication: hypoxia and hypercapnia Qualified Code(s) : J96.21 - Acute and chronic respiratory failure with hypoxia; J96.22 - Acute and chronic respiratory failure with hypercapnia (6) Anemia Code(s): D64.9 - ANEMIA, UNSPECIFIED Qualifiers: Anemia type: unspecified type Qualified Code(s): D64.9 - Anemia, unspecified (7) Arteriosclerotic heart disease (ASHD) Code(s): I25.10 - ATHSCL HEART DISEASE OF [place] CORONARY ARTERY W/O ANG PCTRS (8) COPD exacerbation Code(s): J44.1 - CHRONIC OBSTRUCTIVE PULMONARY DISEASE W (ACUTE) EXACERBATION (9) Diastolic dysfunction Code(s): I51.9 - HEART DISEASE, UNSPECIFIED (10) Hyperlipidemia Code(s): E78.5 - HYPERLIPIDEMIA, UNSPECIFIED Qualifiers: Hyperlipidemia type: pure hypercholesterolemia Qualified Code(s): E78.00 - Pure hypercholesterolemia, unspecified; E78.0 - Pure hypercholesterolemia (11) Pulmonary hypertension Code(s): I27.20 - PULMONARY HYPERTENSION, UNSPECIFIED Assessment/Plan 1. Paroxysmal atrial fibrillation now in sinus rhythm [id number] 2. Acute on Chronic Hypoxic and Hypercapneic Respiratory Failure 3. Acute exacerbation of advanced chronic obstructive pulmonary disease on home oxygen therapy with Pulmonary HTN 4. Atypical Mycobacterium 5. 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 Diastolic LV dysfunction with class 0-I NYHA classification LV failure, compensated/euvolemic 7. HTN 8. Hypercholesterolemia 9. RUL mass 10. Sick euthyroid syndrome PLAN: 1. Continue Cardizem CD 120 bid 2. Completed empiric antibiotics course as per ID 3. Slow oral steroid taper, bronchodilators, O2 to keep SpO2 >90% as per the pulmonary 4. Given elevated risk score, continue Eliquis 5 bid with monitor hemoglobin 5. Continue Lipitor 10 qhs and Lasix 20 qd 6. Addition of ACEI or ARB hemodynamics permitting 7. DVT prophylaxis 8. Await transfer to [facility] or other SNF/rehab Toni Mares MD
--- NOTE | 2018-03-21 14:29 | PN ---
Progress Note, Physician Chief Complaint: AWAKE ALERT STILL SOB ON 02 SUPPORT - Current Medication List Current Medications: Active Medications Alprazolam (Xanax -) 0.25 mg PO Q6HPO [facility] Last Admin: 03/21/18 13:12 Dose: 0.25 mg Apixaban (Eliquis -) 5 mg PO BID [facility] Last Admin: 03/21/18 10:20 Dose: 5 mg Atorvastatin Calcium (Lipitor -) 10 mg PO HS [facility] Last Admin: 03/20/18 22:06 Dose: 10 mg Budesonide/Formoterol Fumarate (Symbicort 160/4.5mcg -) 2 puff IH BID [facility] Last Admin: 03/21/18 10:21 Dose: 2 puff Chlorhexidine Gluconate (Hibiclens For Decolonization -) 1 applic TP HS [facility] Last Admin: 03/20/18 22:07 Dose: Not Given Diltiazem HCl (Cardizem Injection -) 10 mg IVPUSH Q4H PRN PRN Reason: HR > 120 Last Admin: 03/17/18 23:10 Dose: 10 mg Diltiazem HCl (Cardizem Cd -) 120 mg PO BID [facility] Last Admin: 03/21/18 10:19 Dose: 120 mg Escitalopram Oxalate (Lexapro -) 10 mg PO DAILY [facility] Last Admin: 03/21/18 10:20 Dose: 10 mg Furosemide (Lasix -) 20 mg PO DAILY [facility] Last Admin: 03/21/18 10:20 Dose: 20 mg Lactobacillus Acidophilus (Bacid -) 1 tab PO DAILY [facility] Last Admin: 03/21/18 10:18 Dose: 1 tab Nystatin (Nystatin Oral Suspension -) 500,000 units PO Q6HPO [facility] Last Admin: 03/21/18 13:12 Dose: 500,000 units Polyethylene Glycol (Miralax (For Daily Use) -) 17 gm PO BID [facility] Last Admin: 03/21/18 10:22 Dose: 17 gm Prednisone (Deltasone -) 30 mg PO BID [facility] Last Admin: 03/21/18 10:19 Dose: 30 mg - Objective Vital Signs: Vital Signs Temperature 98 F 03/21/18 14:00 Pulse Rate 84 03/21/18 14:00 Respiratory Rate 20 03/21/18 14:00 Blood Pressure 127/65 03/21/18 14:00 O2 Sat by Pulse Oximetry (%) 98 03/21/18 09:00 Constitutional: Yes: Mild Distress Eyes: Yes: WNL HENT: Yes: WNL Neck: Yes: WNL Cardiovascular: Yes: WNL Respiratory: Yes: Diminished, On Nasal O2 Gastrointestinal: Yes: WNL Genitourinary: Yes: WNL Musculoskeletal: Yes: Muscle Weakness Extremities: Yes: WNL Edema: No Peripheral Pulses WNL: Yes Integumentary: Yes: WNL Wound/Incision: Yes: Clean/Dry Neurological: Yes: WNL ...Motor Strength: WNL Psychiatric: Yes: WNL Labs: CBC, BMP 03/15/18 12:00 03/15/18 12:00 INR, PTT INR 0.94 (0.83-1.09) 03/11/18 13:15 Problem List - Problems (1) Acute respiratory distress Code(s): J80 - ACUTE RESPIRATORY DISTRESS SYNDROME (2) COPD (chronic obstructive pulmonary disease) Code(s): J44.9 - CHRONIC OBSTRUCTIVE PULMONARY DISEASE, UNSPECIFIED Qualifiers: COPD type: unspecified COPD Qualified Code(s): J44.9 - Chronic obstructive pulmonary disease, unspecified (3) Hyperthyroidism Code(s): E05.90 - THYROTOXICOSIS, UNSP WITHOUT THYROTOXIC CRISIS OR STORM (4) Paroxysmal A-fib Code(s): I48.0 - PAROXYSMAL ATRIAL FIBRILLATION (5) Paroxysmal atrial fibrillation with rapid ventricular response Code(s): I48.0 - PAROXYSMAL ATRIAL FIBRILLATION (6) Acute and chronic respiratory failure with hypercapnia Code(s): J96.22 - ACUTE AND CHRONIC RESPIRATORY FAILURE WITH HYPERCAPNIA (7) Panic attack Code(s): F41.0 - PANIC DISORDER [EPISODIC PAROXYSMAL ANXIETY] (8) BPH (benign prostatic hypertrophy) Code(s): N40.0 - BENIGN PROSTATIC HYPERPLASIA WITHOUT LOWER URINRY TRACT SYMP Assessment/Plan STEROID TAPER 02 SUPPORT CHRONIC LUNG DISEASE WITH ACUTE EXACERBATIONS OOB TO CHAIR PT PULM EVAL CARDIO F/U DVT PROPHYLAXIS SNF TOMORROW
[2018-03-21] MEDS: ALBUTEROL SO4 0.083% IH SOL 2.5 MG/3 ML VIAL.NEB. NEB PRN (20:38)
[2018-03-21] MEDS: ATORVASTATIN CA 10 MG TABLET (FP) PO SCH (22:14)
[2018-03-21] MEDS: CHLORHEXIDINE GLUCONATE 4% CLEANSER FOR DECOLONIZATION TP SCH (22:16)
[2018-03-22] MEDS: ALPRAZolam 0.25 MG TABLET PO SCH ×2 (06:02→11:40)
[2018-03-22] MEDS: NYSTATIN 500,000 UNITS/5 ML SUSPENSION PO SCH ×2 (06:02→11:40)
[2018-03-22] MEDS: LACTOBACILLUS ACIDOPHILUS 1 TABLET PO SCH (09:40)
[2018-03-22] MEDS: FUROSEMIDE 20 MG TABLET (FP) PO SCH (09:40)
[2018-03-22] MEDS: ESCITALOPRAM OXALATE 10 MG TABLET (FP) PO SCH (09:40)
[2018-03-22] MEDS: APIXABAN 5 MG TABLET PO SCH (09:40)
[2018-03-22] MEDS: BUDESONIDE/FORMETEROL FUMARATE 160/4.5 mcg INHALER IH SCH (09:41)
[2018-03-22] MEDS: predniSONE 10 MG TABLET (UD) PO SCH (09:41)
[2018-03-22] MEDS: POLYETHYLENE GLYCOL 3350 119 GM BTL PO SCH (09:42)
[2018-03-22] MEDS ORDERED: predniSONE 20 MG TABLET (UD) PO SCH (10:29)
--- NOTE | 2018-03-22 11:03 | PN ---
Progress Note, Physician Chief Complaint: patient seen and examined in bed sitting up awaiting bed to [facility] - Current Medication List Current Medications: Active Medications Albuterol Sulfate (Ventolin 0.083% Nebulizer Soln -) 1 amp NEB Q4H PRN PRN Reason: SHORT OF BREATH/WHEEZING Last Admin: 03/21/18 20:38 Dose: 1 amp Alprazolam (Xanax -) 0.25 mg PO Q6HPO [facility] Last Admin: 03/22/18 06:02 Dose: 0.25 mg Apixaban (Eliquis -) 5 mg PO BID [facility] Last Admin: 03/22/18 09:40 Dose: 5 mg Atorvastatin Calcium (Lipitor -) 10 mg PO HS [facility] Last Admin: 03/21/18 22:14 Dose: 10 mg Budesonide/Formoterol Fumarate (Symbicort 160/4.5mcg -) 2 puff IH BID [facility] Last Admin: 03/22/18 09:41 Dose: 2 puff Chlorhexidine Gluconate (Hibiclens For Decolonization -) 1 applic TP [facility] Last Admin: 03/21/18 22:16 Dose: Not Given Diltiazem HCl (Cardizem Injection -) 10 mg IVPUSH Q4H PRN PRN Reason: HR > 120 Last Admin: 03/17/18 23:10 Dose: 10 mg Diltiazem HCl (Cardizem Cd -) 120 mg PO BID [facility] Last Admin: 03/22/18 09:41 Dose: 120 mg Escitalopram Oxalate (Lexapro -) 10 mg PO DAILY [facility] Last Admin: 03/22/18 09:40 Dose: 10 mg Furosemide (Lasix -) 20 mg PO DAILY [facility] Last Admin: 03/22/18 09:40 Dose: 20 mg Lactobacillus Acidophilus (Bacid -) 1 tab PO DAILY [facility] Last Admin: 03/22/18 09:40 Dose: 1 tab Nystatin (Nystatin Oral Suspension -) 500,000 units PO Q6HPO [facility] Last Admin: 03/22/18 06:02 Dose: 500,000 units Polyethylene Glycol (Miralax (For Daily Use) -) 17 gm PO BID [facility] Last Admin: 03/22/18 09:42 Dose: 17 gm Prednisone (Deltasone -) 20 mg PO BID [facility] - Objective Vital Signs: Vital Signs Temperature 98 F 03/22/18 09:00 Pulse Rate 79 03/22/18 09:00 Respiratory Rate 20 03/22/18 09:00 Blood Pressure 154/58 L 03/22/18 09:00 O2 Sat by Pulse Oximetry (%) 97 03/22/18 09:00 Constitutional: Yes: Calm, Thin Cardiovascular: Yes: Regular Rate and Rhythm, S1, S2 Respiratory: Yes: Diminished, On Nasal O2 Gastrointestinal: Yes: Normal Bowel Sounds, Soft Edema: No Neurological: Yes: Alert, Oriented Labs: CBC, BMP 03/15/18 12:00 03/15/18 12:00 INR, PTT INR 0.94 (0.83-1.09) 03/11/18 13:15 Problem List - Problems (1) Paroxysmal A-fib Assessment/Plan: jeanmarie avila Code(s): I48.0 - PAROXYSMAL ATRIAL FIBRILLATION (2) COPD (chronic obstructive pulmonary disease) Assessment/Plan: acute on chronic advanced COPD and hypercapnic failure - improving bronchodilators triology at night pulm rehab on discharge slow medrol taper- now prednisone 20mg po bid Code(s): J44.9 - CHRONIC OBSTRUCTIVE PULMONARY DISEASE, UNSPECIFIED Qualifiers: COPD type: unspecified COPD Qualified Code(s): J44.9 - Chronic obstructive pulmonary disease, unspecified (3) Thrush, oral Assessment/Plan: nystatin for 10 days to stop 03/25 Code(s): B37.0 - CANDIDAL STOMATITIS (4) Thrombocytopenia Assessment/Plan: improving now normal Code(s): D69.6 - THROMBOCYTOPENIA, UNSPECIFIED
--- NOTE | 2018-03-22 11:41 | PN ---
Progress Note, Physician History of Present Illness: PULMONARY ALERT,NO DISTRESS,DYSPNEA STABLE - Current Medication List Current Medications: Active Medications Albuterol Sulfate (Ventolin 0.083% Nebulizer Soln -) 1 amp NEB Q4H PRN PRN Reason: SHORT OF BREATH/WHEEZING Last Admin: 03/21/18 20:38 Dose: 1 amp Alprazolam (Xanax -) 0.25 mg PO Q6HPO [facility] Last Admin: 03/22/18 06:02 Dose: 0.25 mg Apixaban (Eliquis -) 5 mg PO BID [facility] Last Admin: 03/22/18 09:40 Dose: 5 mg Atorvastatin Calcium (Lipitor -) 10 mg PO HS [facility] Last Admin: 03/21/18 22:14 Dose: 10 mg Budesonide/Formoterol Fumarate (Symbicort 160/4.5mcg -) 2 puff IH BID [facility] Last Admin: 03/22/18 09:41 Dose: 2 puff Chlorhexidine Gluconate (Hibiclens For Decolonization -) 1 applic TP HS [facility] Last Admin: 03/21/18 22:16 Dose: Not Given Diltiazem HCl (Cardizem Injection -) 10 mg IVPUSH Q4H PRN PRN Reason: HR > 120 Last Admin: 03/17/18 23:10 Dose: 10 mg Diltiazem HCl (Cardizem Cd -) 120 mg PO BID [facility] Last Admin: 03/22/18 09:41 Dose: 120 mg Escitalopram Oxalate (Lexapro -) 10 mg PO DAILY [facility] Last Admin: 03/22/18 09:40 Dose: 10 mg Furosemide (Lasix -) 20 mg PO DAILY [facility] Last Admin: 03/22/18 09:40 Dose: 20 mg Lactobacillus Acidophilus (Bacid -) 1 tab PO DAILY [facility] Last Admin: 03/22/18 09:40 Dose: 1 tab Nystatin (Nystatin Oral Suspension -) 500,000 units PO Q6HPO [facility] Last Admin: 03/22/18 06:02 Dose: 500,000 units Polyethylene Glycol (Miralax (For Daily Use) -) 17 gm PO BID [facility] Last Admin: 03/22/18 09:42 Dose: 17 gm Prednisone (Deltasone -) 20 mg PO BID [facility] - Objective Vital Signs: Vital Signs Temperature 98 F 03/22/18 09:00 Pulse Rate 79 10/22/18 09:00 Respiratory Rate 20 03/22/18 09:00 Blood Pressure 154/58 L 03/22/18 09:00 O2 Sat by Pulse Oximetry (%) 97 03/22/18 09:00 Constitutional: Yes: Calm, Thin Eyes: Yes: WNL HENT: Yes: WNL Neck: Yes: WNL Cardiovascular: Yes: Regular Rate and Rhythm, S1, S2 Respiratory: Yes: Diminished Gastrointestinal: Yes: Normal Bowel Sounds, Soft Extremities: Yes: WNL Edema: No Labs: CBC, BMP 03/15/18 12:00 03/15/18 12:00 INR, PTT INR 0.94 (0.83-1.09) 03/11/18 13:15 Assessment/Plan ASSESSMENT AND PLAN: Acute on Chronic Hypoxic and Hypercapneic Respiratory Failure Acute COPD Exacerbation improved 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
[2018-03-22] MEDS: ALBUTEROL SO4 0.083% IH SOL 2.5 MG/3 ML VIAL.NEB. NEB PRN (12:15)
[2018-03-22 15:45] VITALS: BP 122/66; PULSE 80; TEMP 97.8
--- NOTE | 2018-03-22 21:18 | PN ---
Progress Note, Physician Chief Complaint: Events noted Tolerating therapy dependent of O2 and CPAP Patient was seen this morning prior to discharge to [facility] History of Present Illness: Patient was seen and examined. Awake and alert. Chart was reviewed Denies chest pain or palpitations - Objective Vital Signs: Vital Signs Temperature 97.8 F 03/22/18 15:30 Pulse Rate 80 03/22/18 15:30 Respiratory Rate 18 03/22/18 15:30 Blood Pressure 122/66 03/22/18 15:30 O2 Sat by Pulse Oximetry (%) 97 03/22/18 09:00 HENT: Yes: Atraumatic Neck: Yes: Supple Cardiovascular: Yes: Regular Rate and Rhythm, S1, S2 Respiratory: Yes: Diminished, On Nasal O2, Wheezes Gastrointestinal: Yes: Normal Bowel Sounds, Soft. No: Tenderness Edema: No Problem List - Problems (1) Acute respiratory distress Code(s): J80 - ACUTE RESPIRATORY DISTRESS SYNDROME (2) COPD (chronic obstructive pulmonary disease) Code(s): J44.9 - CHRONIC OBSTRUCTIVE PULMONARY DISEASE, UNSPECIFIED Qualifiers: COPD type: unspecified COPD Qualified Code(s): J44.9 - Chronic obstructive pulmonary disease, unspecified (3) Paroxysmal A-fib Code(s): I48.0 - PAROXYSMAL ATRIAL FIBRILLATION (4) Sick-euthyroid syndrome Code(s): E07.81 - SICK-EUTHYROID SYNDROME (5) Acute and chronic respiratory failure Code(s): J96.20 - ACUTE AND CHR RESP FAILURE, UNSP W HYPOXIA OR HYPERCAPNIA Qualifiers: Respiratory failure complication: hypoxia and hypercapnia Qualified Code(s) : J96.21 - Acute and chronic respiratory failure with hypoxia; J96.22 - Acute and chronic respiratory failure with hypercapnia (6) Anemia Code(s): D64.9 - ANEMIA, UNSPECIFIED Qualifiers: Anemia type: unspecified type Qualified Code(s): D64.9 - Anemia, unspecified (7) Arteriosclerotic heart disease (ASHD) Code(s): I25.10 - ATHSCL HEART DISEASE OF [place] CORONARY ARTERY W/O ANG PCTRS (8) COPD exacerbation Code(s): J44.1 - CHRONIC OBSTRUCTIVE PULMONARY DISEASE W (ACUTE) EXACERBATION (9) Diastolic dysfunction Code(s): I51.9 - HEART DISEASE, UNSPECIFIED (10) Hyperlipidemia Code(s): E78.5 - HYPERLIPIDEMIA, UNSPECIFIED Qualifiers: Hyperlipidemia type: pure hypercholesterolemia Qualified Code(s): E78.00 - Pure hypercholesterolemia, unspecified; E78.0 - Pure hypercholesterolemia (11) Pulmonary hypertension Code(s): I27.20 - PULMONARY HYPERTENSION, UNSPECIFIED Assessment/Plan 1. Paroxysmal atrial fibrillation now in sinus rhythm [id number] 2. Acute on Chronic Hypoxic and Hypercapneic Respiratory Failure 3. Acute exacerbation of advanced chronic obstructive pulmonary disease on home oxygen therapy with Pulmonary HTN 4. Atypical Mycobacterium 5. 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 Diastolic LV dysfunction with class 0-I NYHA classification LV failure, compensated/euvolemic 7. HTN 8. Hypercholesterolemia 9. RUL mass 10. Sick euthyroid syndrome PLAN: 1. Continue Cardizem CD 120 bid 2. Slow oral steroid taper, bronchodilators, O2 to keep SpO2 >90% as per the pulmonary 3. Given elevated risk score, continue Eliquis 5 bid with monitor hemoglobin 4. Continue Lipitor 10 qhs and Lasix 20 qd 5. Addition of ACEI or ARB hemodynamics permitting 6. DVT prophylaxis 7. Await transfer to SNF/rehab Toni Mares MD
== END 2018-03-22 17:03 | DRG 208 ==
LOC: JER 02:34 → JICU 07:09 → J2W 03-12 23:36 → J4W 03-17 16:30
PROVIDERS: ADMIT Internal Medicine; ATTEND Family Medicine
PROC: 5A1935Z Respiratory Ventilation, Less than 24 Consecutive Hours (ICD-10-PCS; principal; 2018-03-10)
PROC: 0BH17EZ Insertion of Endotracheal Airway into Trachea, Via Natural or Artificial Opening (ICD-10-PCS; 2018-03-10)
DX: J96.21 Acute and chronic respiratory failure with hypoxia (principal); J44.1 Chronic obstructive pulmonary disease with (acute) exacerbation; B37.0 Candidal stomatitis; J96.22 Acute and chronic respiratory failure with hypercapnia; I48.0 Paroxysmal atrial fibrillation; I25.119 Atherosclerotic heart disease of native coronary artery with unspecified angina pectoris; I27.20 Pulmonary hypertension, unspecified; E07.81 Sick-euthyroid syndrome; D64.9 Anemia, unspecified; D69.6 Thrombocytopenia, unspecified; N40.0 Benign prostatic hyperplasia without lower urinary tract symptoms; E78.5 Hyperlipidemia, unspecified; R91.1 Solitary pulmonary nodule; R00.0 Tachycardia, unspecified; F41.0 Panic disorder [episodic paroxysmal anxiety]; R55 Syncope and collapse
CPT/HCPCS: 36415; 36600; 71045-TC-FY; 80048; 80053; 81003; 81015; 82375; 82550; 82803; 83050; 83735; 83880; 84100; 84436; 84439; 84443; 84481; 84484; 85025; 85610; 85730; 87040; 87070; 87086; 87186; 87205; 87389; 87899; 93005; 93010; 93306-TC; 94010; 94640; 97116-GP; 97161-GP; 99285-25; J1644

== ENCOUNTER 2018-03-24 11:01 | Inpatient (IN) | payer BC, OTHER ==
[2018-03-24] MEDS ORDERED: dilTIAZem HCL 125 MG/25 ML - 25 ML VIAL ONE ×2 (11:14→11:42)
[2018-03-24] MEDS ORDERED: ACETAMINOPHEN 1000 MG/100 ML VIAL (NON FORMULARY) IVPB ONE (11:22)
[2018-03-24] MEDS ORDERED: dilTIAZem HCL 50 MG/10 ML - 10 ML VIAL IVPUSH ONE (11:22)
[2018-03-24] MEDS ORDERED: ALBUTEROL SO4 0.083% IH SOL 2.5 MG/3 ML VIAL.NEB. NEB ONE ×4 (11:23→13:42)
[2018-03-24] MEDS ORDERED: ACETAMINOPHEN INJECTION 100 ML IVPB ONE (11:26)
[2018-03-24] MEDS ORDERED: MAGNESIUM SULF 50% (8.12 MEQ/2 ML-1 GM VIAL) ONE (11:41)
[2018-03-24] MEDS ORDERED: IPRATROPIUM BR 0.02% 0.5 MG/2.5 ML VIAL.NEB. NEB ONE (11:41)
[2018-03-24] MEDS ORDERED: DEXAMETHASONE SOD PHOSPHATE 10 MG/1 ML VIAL ONE (11:41)
[2018-03-24] MEDS ORDERED: ALBUTEROL SO4 2.5/IPRATROPIUM 0.5 INH SOL 3 ML VIAL.NEB. NEB ONE (11:41)
[2018-03-24 11:49] LABS: BASO % 0.5 % (0-2.0); EOS % 0.1 % (0-4.5); HEMATOCRIT 34.9 % (35.4-49); HEMOGLOBIN 11.5 GM/dL (11.7-16.9); LYMPH % 3.1 % (8-40); MCH 30.1 pg (25.7-33.7); MCHC 32.9 g/dl (32.0-35.9); MEAN CELL VOLUME 91.6 fl (80-96); MONO % 2.5 % (3.8-10.2); NEUT % 93.8 % (42.8-82.8); PLATELET COUNT 76 K/MM3 (134-434); RBC 3.81 M/mm3 (4.00-5.60); RDW 15.1 % (11.9-15.9); WHITE BLOOD COUNT 7.8 K/mm3 (4.0-10.0)
--- NOTE | 2018-03-24 11:57 | PDOC ---
History of Present Illness - History of Present Illness Initial Comments: This patient is a 67 year old male with a significant past medical history of recently diagnosed atrial fibrillation, COPD (3L of a home oxygen intubated 1x ), interstitial lung disease, pulmonary hypertension, hypertension, hyperlipidemia, CHF, CA, CAD, GERD, emphysema, and panic attacks, who was BIBA from [facility] for fever and respiratory distress. Patient was recently admitted on 03/10 in the ICU for acute COPD exacerbation and d/c 03/22. Patient s states that last night her had weakness, diarrhea, and a fever of 104 degrees F. Today she states that she spoke to him over the phone this morning and he was complaining of feeling very weak and tired. She states that the next time she was able to get in touch with someone from the SNF, she found out that he was being rushed to the ER. As per EMS, patient was given 10 mg of Decadron, 2g of magnesium sulfate, and 25 mg of Cardizem en route, the state that he was in rapid aflutter, report a temp of 99.8 that was taken at the SNF. Allergies: moxifloxacin HCl, aclidinium bromide, shellfish derived Past surgical history: Appendectomy. Hiatal hernia repair. Intubated (2008). Social History: Former smoker. Denies EtOH use and recreational drug use. Primary Care Physician: Dr. Leslie Traffic Control Operator: Dr. Titus Front Desk Associate: Dr. Mckee ID: Dr. [email or web address] <Mague Bradley - Last Filed: 03/24/18 14:52> <Carlitos Hu - Last Filed: 03/24/18 16:28> - General Chief Complaint: Shortness of Breath Stated Complaint: DIFFICULTY BREATHING Time Seen by Provider: 03/24/18 11:21 Past History <Mague Bradley - Last Filed: 03/24/18 14:52> - Past Medical History Anemia: Yes (FROM BLEEDING) Asthma: No Cancer: No Cardiac Disorders: Yes (CA, CHF) CVA: No COPD: Yes (o2 at home) CHF: Yes Dementia: No Diabetes: No GI Disorders: Yes (umbilical hernia x 2) Disorders: Yes (UTI) HTN: Yes (FLUCTUATE) Hypercholesterolemia: Yes Kidney Stones: Yes Seizures: No Thyroid Disease: No - Surgical History Abdominal Surgery: No Appendectomy: No Cardiac Surgery: No Cholecystectomy: No Lung Surgery: No Neurologic Surgery: No Orthopedic Surgery: No - Suicide/Smoking/Psychosocial Hx Smoking Status: No Smoking History: Unknown if ever smoked Have you smoked in the past 12 months: No Number of Cigarettes Smoked Daily: 40 If you are a former smoker, when did you quit?: many years ago Information on smoking cessation initiated: No Hx Alcohol Use: No Drug/Substance Use Hx: No Substance Use Type: None Hx Substance Use Treatment: No <Carlitos Hu - Last Filed: 03/24/18 16:28> - Past Medical History Allergies/Adverse Reactions: Allergies Allergy/AdvReac Type Severity Reaction Status Date / Time moxifloxacin HCl Allergy Severe Verified 03/10/18 02:58 [From Avelox] aclidinium bromide Allergy Verified 03/10/18 02:58 [From Tudorza Pressair] shellfish derived Allergy Verified 03/10/18 02:58 Home Medications: Ambulatory Orders Albuterol Sulfate Inhaler - [Ventolin HFA Inhaler -] 2 inh PO Q4H 02/08/14 Arformoterol Tartrate [Brovana] 15 mcg IH BID 02/08/14 Tamsulosin HCl [Flomax -] 0.4 mg PO DAILY 02/08/14 Tiotropium [place] [Spiriva] 1 inh PO DAILY 02/08/14 Beclomethasone Dipropionate [Qvar] 8.7 gm IH DAILY 01/09/16 Polyethylene Glycol 3350 [Miralax 119 gm Btl -] 17 gm PO DAILY PRN #1 bottle 10/15 Ferrous Sulfate [Feosol] 325 mg PO BID ud 05/06/17 Furosemide [Lasix -] 20 mg PO DAILY tablet 05/06/17 Acetaminophen [Tylenol .Regular Strength -] 650 mg PO Q4H PRN tablet 02/20/18 Magnesium Hydrox 2400MG/30Ml [Milk of Magnesia -] 30 ml PO DAILY PRN #1 bottle 02/20/18 Prednisone 10 mg PO ASDIR #65 tablet 02/20/18 Sennosides [Senna -] 2 tab PO HS PRN #60 tablet 02/20/18 Albuterol 0.083% Nebulizer [place] [Ventolin 0.083% Nebulizer Soln -] 1 neb NEB Q4H PRN #75 vial 03/06/18 Albuterol 2.5/Ipratropium 0.5 [Duoneb -] 1 amp NEB RQID amp 03/22/18 Alprazolam [Xanax] 0.25 mg PO Q6HPO #20 tablet MDD 4 03/22/18 Apixaban [Eliquis -] 5 mg PO BID tablet 03/22/18 Atorvastatin Ca [Lipitor] 10 mg PO HS tablet 03/22/18 Diltiazem Cd [Cardizem Cd -] 120 mg PO BID cap.cd.24h 03/22/18 Escitalopram Oxalate [Lexapro -] 10 mg PO DAILY tablet 03/22/18 predniSONE [Deltasone -] 30 mg PO BID tablet 03/22/18 Review of Systems - Review of Systems Comments:: CONSTITUTIONAL: +fever, no chills, +fatigue, generalized weakness EYES: No visual changes ENT: No ear pain, no sore throat CARDIOVASCULAR: No chest pain, no palpitations RESPIRATORY: +cough, +difficulty breathing GI: No abdominal pain, no nausea, no vomiting, no constipation, +diarrhea GENITOURINARY: No dysuria, no frequency, no hematuria MUSKULOSKELETAL: No back pain, no joint pain, no myalgias SKIN: No rash NEURO: No headache <Mague Bradley - Last Filed: 03/24/18 14:52> *Physical Exam - Vital Signs Last Vital Signs Temp Pulse Resp BP Pulse Ox 170 H 36 H 126/82 92 L 03/24/18 11:01 03/24/18 11:01 03/24/18 11:01 03/24/18 11:01 <Mague Bradley - Last Filed: 03/24/18 14:52> - Vital Signs Last Vital Signs Temp Pulse Resp BP Pulse Ox 170 H 36 H 126/82 92 L 03/24/18 11:01 03/24/18 11:01 03/24/18 11:01 03/24/18 11:01 - Physical Exam Comments: 03/24/18 16:04 Patient seen and evaluated immediately upon arrival. This physical exam is being recorded after admission to the ICU EXAMINATION CONSTITUTIONAL: Lethargic but arousable to sternal rub, tachycardic, tachypneic and dyspneic HEAD: Normocephalic; atraumatic EYES: PERRL; no scleral icterus, conjunctiva pink ENMT: mm-dry NECK: Supple; no JVD CARD: Irregularly irregular, tachycardic RESP: Tachypneic and dyspneic; decreased air entry bilaterally with expiratory wheezing noted bilaterally; ABD: Soft, non-distended; non-tender; no palpable organomegaly, no palpable hernias EXT: No edema distal pulses intact SKIN: Warm, dry, no rash NEURO: Lethargic but arousable to sternal rub, moving all extremities symmetrically; <Carlitos Hu - Last Filed: 03/24/18 16:28> ED Treatment Course - LABORATORY CBC & Chemistry Diagram: 03/24/18 11:37 03/24/18 11:37 - ADDITIONAL ORDERS Additional order review: 03/24/18 11:37 RBC 3.81 L MCV 91.6 MCHC 32.9 RDW 15.1 MPV 9.0 Neutrophils % 93.8 H Lymphocytes % 3.1 L D Monocytes % 2.5 L Eosinophils % 0.1 Basophils % 0.5 D - RADIOLOGY Radiograph Interpretation: Chest x-ray Impression: No acute chest pathology. Mild hyperaeration. Reported by: Peter Sandoval MD 03/24/18 1245 - Consult/PCP Time Called: 13:19 (Paged ICU pager) - Additional Consults Time Called: 13:19 (Overhead paged HOUSING COUNSELOR Nori Murrell) Time Called: 13:42 (Repaged ICU pager and HOUSING COUNSELOR Nori Murrell) <Mague Bradley - Last Filed: 03/24/18 14:52> - LABORATORY CBC & Chemistry Diagram: 03/24/18 11:37 03/24/18 11:37 - ADDITIONAL ORDERS Additional order review: 03/24/18 11:37 RBC 3.81 L MCV 91.6 MCHC 32.9 RDW 15.1 MPV 9.0 Neutrophils % 93.8 H Lymphocytes % 3.1 L D Monocytes % 2.5 L Eosinophils % 0.1 Basophils % 0.5 D - RADIOLOGY Radiology Studies Ordered: Category Date Time Status CHEST X-RAY PORTABLE* [RAD] Stat Radiology 03/24/18 11:22 Ordered <Carlitos Hu - Last Filed: 03/24/18 16:28> Medical Decision Making - Critical Care Time Total Critical Care Time (minutes): 75 Critical Care Statement: The care of this patient involved high complexity decision making to prevent further life threatening deterioration of the patient 's condition and/or to evaluate & treat vital organ system(s) failure or risk of failure. - Medical Decision Making 03/24/18 11:55 67-year-old male with history of COPD, newly diagnosed A. fib on aliquis presents and acute respiratory distress with tachycardia with EKG revealing rapid A. fib with RVR. Diffuse expiratory wheezing is noted bilaterally with minimal air entry; patient is somnolent but arousable to sternal rub. Patient's received Combivent, Decadron and magnesium IV in route. Patient also received a dose of IV Cardizem a [address] on BiPAP. Will continue with IV fluids and antipyretics. We'll consider IV antibiotics. Will obtain ABG to evaluate for hypercapnia. We'll consider intubation if no significant improvement. 03/24/18 13:39 Patient remains lethargic, arousable to sternal rub. Heart rate is noted to be 98-106 (irregularly irregular); respiratory rate has decreased to 20. BiPAP FiO2 has been decreased from 80% to 30% with resultant oxygen saturation of 97% . CBC reveals no leukocytosis, however neutrophilia is noted. Chest x-ray reveals no obvious infiltrate or effusion; blood pressure has remained labile but is responsive to fluid boluses with MAP of 65-70. Urinalysis reveals pyuria with greater than 60 WBCs per high-power field. We'll administer Zosyn. Will admit to the ICU. 03/24/18 14:48 pt denies headache, is reporting that he is pain free. Patient seen and evaluated by critical care note ID. Agree with plan of care. Will admit. 03/24/18 16:28 Patient appears to have converted to normal sinus rhythm. Will obtain EKG. Will continue splint with the ICU admission. <Carlitos Hu - Last Filed: 03/24/18 16:28> *DC/Admit/Observation/Transfer - Attestations Scribe Attestion: 03/24/18 12:04 Documentation prepared by Mague Bradley, acting as medical charge entry specialist for Carlitos Hu MD. <Mague Bradley - Last Filed: 03/24/18 14:52> - Discharge Dispostion Decision to Admit order: Yes <Carlitos Hu - Last Filed: 03/24/18 16:28> Diagnosis at time of Disposition: Acute respiratory distress, Atrial fibrillation with RVR, Urinary tract infection - Discharge Dispostion Condition at time of disposition: Critical
[2018-03-24 12:08] LABS: INR 1.5 (0.83-1.09); PROTHROMBIN TIME (PATIENT) 17.8 SEC (9.7-13.0)
[2018-03-24 12:10] LABS: ARTERIAL BLD GAS O2 SATURATION 99.7 % (90-98.9); ARTERIAL BLOOD GAS BASE EXCESS 5.1 meq/l (-2-2); ARTERIAL BLOOD GAS PCO2 49.8 mmHg (35-45)
[2018-03-24 12:11] LABS: ACTIVATED PTT 31.6 SECONDS (25.2-36.5)
[2018-03-24 12:14] LABS: ALLENS TEST POSITIVE
[2018-03-24 12:19] LABS: ALBUMIN 2.4 g/dl (3.4-5.0); ALK PHOS 80 U/L (45-117); ANION GAP 7 MMOL/L (8-16); BILIRUBIN,TOTAL 0.7 mg/dL (0.2-1); BLOOD UREA NITROGEN 26 mg/dL (7-18); CALCIUM 8.5 mg/dL (8.5-10.1); CHLORIDE 99 mmol/L (98-107); CO2 34 mmol/L (21-32); GLUCOSE,RANDOM 123 mg/dL (74-106); POTASSIUM 3.9 mmol/L (3.5-5.1); SGOT/AST 19 U/L (15-37); SGPT/ALT 29 U/L (13-61); SODIUM 141 mmol/L (136-145); TOT PROT 5.2 g/dl (6.4-8.2)
[2018-03-24] MEDS ORDERED: SODIUM CHLORIDE 500 ML IV STA ×3 (12:19→13:41)
[2018-03-24] MEDS ORDERED: DIGOXIN 0.5 MG/2 ML AMPUL ONE (12:42)
[2018-03-24] MEDS ORDERED: DIGOXIN 0.5 MG/2 ML AMPUL IVPUSH ONE (12:44)
[2018-03-24 13:23] LABS: URINE APPEARANCE CLEAR; URINE BILIRUBIN NEGATIVE (<2.0 mg/dL); URINE COLOR YELLOW; URINE GLUCOSE (UA) NEGATIVE (NEGATIVE); URINE KETONE NEGATIVE (NEGATIVE); URINE LEUK ESTERASE NEGATIVE (NEGATIVE); URINE NITRITE NEGATIVE (NEGATIVE); URINE PROTEIN 2+ (NEGATIVE); URINE UROBILINOGEN NEGATIVE mg/dL (0.2-1.0)
[2018-03-24 13:28] LABS: EPI CELLS RARE /HPF (FEW); URINE HYALINE CAST 1 /lpf; URINE MUCUS RARE
[2018-03-24 13:34] LABS: ANISOCYTOSIS 0; MACROCYTOSIS 0; PLATELET ESTIMATE DECREASED
[2018-03-24] MEDS ORDERED: PIPERACILLIN/TAZOB 4.5 GM 4.5 GM in DEXTROSE 5%-WATER 100 ML IVPB ONE (13:42)
[2018-03-24] MEDS ORDERED: PIPERACILLIN/TAZOB 4.5 GM 4.5 GM/100 ML BAG IVPB ONE (13:46)
--- NOTE | 2018-03-24 14:49 | HP ---
Admitting History and Physical - Primary Care Physician PCP: Mony Leslie - Admission Chief Complaint: Shortness of breath. COPD exacerbation. Hypotension History of Present Illness: This patient is a 67 year old male with a significant past medical history of recently diagnosed atrial fibrillation, COPD (3L of a home oxygen intubated 1x 09), interstitial lung disease, pulmonary hypertension, hypertension, hyperlipidemia, CHF, [place], CAD, GERD, emphysema, and panic attacks, who was BIBA from [facility] for fever and respiratory distress. Patient was recently admitted on 03/10 in the ICU for acute COPD exacerbation and d/c 03/22. Patient s states that last night her had weakness, diarrhea, and a fever of 104 degrees F. Today she states that she spoke to him over the phone this morning and he was complaining of feeling very weak and tired. She states that the next time she was able to get in touch with someone from the SNF, she found out that he was being rushed to the ER. As per EMS, patient was given 10 mg of Decadron, 2g of magnesium sulfate, and 25 mg of Cardizem en route, the state that he was in rapid aflutter, report a temp of 99.8 that was taken at the SNF. History Source: Patient, Medical Record Limitations to Obtaining History: No Limitations - Past Medical History Cardiovascular: Yes: CAD, CHF, HTN, Hyperlipdemia, Pulmonary Hypertension Pulmonary: Yes: COPD (home oxygen), O2 Dependent, Previously Intubated ( intubated one time several years ago for respiratory failure), Other ( Interstitial lung disease) Gastrointestinal: Yes: GERD, Hiatal Hernia Renal/: Yes: Renal Calculi, UTI - Past Surgical History Past Surgical History: Yes: Appendectomy, Hernia Repair (Inguinal hernia) - Smoking History Smoking history: Unknown if ever smoked Have you smoked in the past 12 months: No Aproximately how many cigarettes per day: 40 If you are a former smoker, when did you quit?: many years ago - Alcohol/Substance Use Hx Alcohol Use: No History of Substance Use: reports: None - Social History ADL: Independent 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 History of Recent Travel: No Home Medications - Allergies Allergies/Adverse Reactions: Allergies Allergy/AdvReac Type Severity Reaction Status Date / Time moxifloxacin HCl Allergy Severe Verified 03/10/18 02:58 [From Avelox] aclidinium bromide Allergy Verified 03/10/18 02:58 [From Tudorbeatriz Pressair] shellfish derived Allergy Verified 03/10/18 02:58 - Home Medications Home Medications: Ambulatory Orders Albuterol Sulfate Inhaler - [Ventolin HFA Inhaler -] 2 inh PO Q4H 02/08/14 Arformoterol Tartrate [Brovana] 15 mcg IH BID 02/08/14 Tamsulosin HCl [Flomax -] 0.4 mg PO DAILY 02/08/14 Tiotropium [place] [Spiriva] 1 inh PO DAILY 02/08/14 Beclomethasone Dipropionate [Qvar] 8.7 gm IH DAILY 01/09/16 Polyethylene Glycol 3350 [Miralax 119 gm Btl -] 17 gm PO DAILY PRN #1 bottle 10/15 Ferrous Sulfate [Feosol] 325 mg PO BID ud 05/06/17 Furosemide [Lasix -] 20 mg PO DAILY tablet 05/06/17 Acetaminophen [Tylenol .Regular Strength -] 650 mg PO Q4H PRN tablet 02/20/18 Magnesium Hydrox 2400MG/30Ml [Milk of Magnesia -] 30 ml PO DAILY PRN #1 bottle 02/20/18 Prednisone 10 mg PO ASDIR #65 tablet 02/20/18 Sennosides [Senna -] 2 tab PO HS PRN #60 tablet 02/20/18 Albuterol 0.083% Nebulizer Portia [Ventolin 0.083% Nebulizer Soln -] 1 neb NEB Q4H PRN #75 vial 03/06/18 Albuterol 2.5/Ipratropium 0.5 [Duoneb -] 1 amp NEB RQID amp 03/22/18 Alprazolam [Xanax] 0.25 mg PO Q6HPO #20 tablet MDD 4 03/22/18 Apixaban [Eliquis -] 5 mg PO BID tablet 03/22/18 Atorvastatin Ca [Lipitor] 10 mg PO HS tablet 03/22/18 Diltiazem Cd [Cardizem Cd -] 120 mg PO BID cap.cd.24h 03/22/18 Escitalopram Oxalate [Lexapro -] 10 mg PO DAILY tablet 03/22/18 predniSONE [Deltasone -] 30 mg PO BID tablet 03/22/18 Physical Examination Vital Signs: Vital Signs Temperature 99.3 F 03/24/18 13:34 Pulse Rate 118 H 03/24/18 13:34 Respiratory Rate 24 H 03/24/18 13:34 Blood Pressure 89/68 L 03/24/18 13:34 O2 Sat by Pulse Oximetry (%) 100 03/24/18 14:00 Findings/Remarks: Pt currently on BIPAP, lethargic, not responsive to verbal stimuli or physical contact. Moved BLUE upon sternal rub Seen by Pulmonary and ID Was in Rapid afib HR >150's upon arrival-received Diltiazem IVP, changed to SR at the moment on tele, HR 80's labs noted CXR unremarkable Cultures pending Trops elevated likely 2/2 to demand ischemia, would follow series and repeat EKG Constitutional: Yes: Cachectic, Moderate Distress Cardiovascular: Yes: Regular Rate and Rhythm, Murmur (Grade III/) Respiratory: Yes: On BiPap, Tachypnea Gastrointestinal: Yes: Normal Bowel Sounds, Soft Musculoskeletal: Yes: Muscle Weakness Extremities: Yes: WNL Edema: No Peripheral Pulses WNL: Yes Neurological: Yes: Lethargy Labs: CBC, BMP 03/24/18 11:37 03/24/18 11:37 Imaging - Results Chest X-ray: Report Reviewed Problem List - Problems (1) Diarrhea Assessment/Plan: -Seen by ID -Stool for cdiff pending -IV Vanco -gentle IVF Code(s): R19.7 - DIARRHEA, UNSPECIFIED (2) Sepsis Assessment/Plan: -Lactic acid normal -febrile at the rehab, afebrile at the moment -/UC pending -IVF- fluid resuscitation for hypotension -ICU monitoring -ID on board -CXR unremarkable Code(s): A41.9 - SEPSIS, UNSPECIFIED ORGANISM (3) Acute and chronic respiratory failure Assessment/Plan: -Seen by pulmonary -BIPAP, to keep SpO2 > 90% -Solumedrol 60 Q8H -Bronchodilators -IV abx Code(s): J96.20 - ACUTE AND CHR RESP FAILURE, UNSP W HYPOXIA OR HYPERCAPNIA Qualifiers: Respiratory failure complication: hypoxia and hypercapnia Qualified Code(s) : J96.21 - Acute and chronic respiratory failure with hypoxia; J96.22 - Acute and chronic respiratory failure with hypercapnia (4) COPD exacerbation Assessment/Plan: -Pulmonary on board -BIPAP -Bronchodilators -Solumedrol 60 mg Q8H -CXR unremarkable Code(s): J44.1 - CHRONIC OBSTRUCTIVE PULMONARY DISEASE W (ACUTE) EXACERBATION (5) Paroxysmal atrial fibrillation with rapid ventricular response Assessment/Plan: -Received Diltiazem IVP upon arrive -converted to SR -Repeat EKG ordered -ICU monitoring -unable to take eliquis due to current acute process, resume meds once NPO status is removed -Heparin 5000 U SQ TID Code(s): I48.0 - PAROXYSMAL ATRIAL FIBRILLATION (6) Elevated troponin Assessment/Plan: -likely 2/2 to demand ischemia -repeat troponin series Q8H x 3 Code(s): R74.8 - ABNORMAL LEVELS OF OTHER SERUM ENZYMES (7) Hypoalbuminemia Assessment/Plan: -due to decreased PO intake -start [employer] and order RD consult once NPO status is removed Code(s): E88.09 - OTH DISORDERS OF PLASMA-PROTEIN METABOLISM, NEC (8) Protein calorie malnutrition Assessment/Plan: -due to decreased PO intake -start [employer] and order RD consult once NPO status is removed Code(s): E46 - UNSPECIFIED PROTEIN-CALORIE MALNUTRITION (9) Anemia Assessment/Plan: -previously iron deficiency -recheck B12, Thyroid/iron profile and folic acid -check stool OB -monitor trend Code(s): D64.9 - ANEMIA, UNSPECIFIED Qualifiers: Anemia type: unspecified type Qualified Code(s): D64.9 - Anemia, unspecified Assessment/Plan see problem list Teds DISPO: ICU monitoring
--- NOTE | 2018-03-24 14:54 | PN ---
Teaching Attending Note Name of Resident: Michelle Murray ATTENDING PHYSICIAN STATEMENT I saw and evaluated the patient. I reviewed the resident's note and discussed the case with the resident. I agree with the resident's findings and plan as documented. SUBJECTIVE: Pt seen and examined in the ER. Briefly, 67yo male with h/o HTN, hyperlipidiemia , atrial fibrillation, COPD, chronic hypoxic respiratory failure on home O2, CAD , CHF, pulmonary HTN, recent admission for acute respiratory failure from COPD exacerbation requiring intubation who was transferred from subacute rehab for fevers and respiratory distress. Pt unable to provide further history at this time but reports diarrhea yesterday. Admission CXR without acute infiltrates but urinalysis with WBC. Placed on BiPAP, IVF in the ER. OBJECTIVE: Vital Signs Period Temp Pulse Resp BP Sys/Morgan Pulse Ox Last 24 Hr 99.3 F-99.6 F 105-170 24-36 75-126/40-82 92-100 Intake & Output 03/21/18 03/22/18 03/23/18 03/24/18 23:59 23:59 23:59 23:59 Weight 63 kg Gen: lethargic on BiPAP Heart: tachycardic, irregular Lung: scattered bilateral rhonchi Abd: soft, nontender Ext: no edema CBC, BMP 03/24/18 11:37 03/24/18 11:37 ABG Results ABG pH 7.40 (7.35-7.45) 03/24/18 12:01 ABG pCO2 at Pt Temp 49.8 mmHg (35-45) H D 03/24/18 12:01 ABG pO2 at Pt Temp 225.0 mmHg (80-100) H* 03/24/18 12:01 ABG HCO3 30.4 meq/L (22-26) H 03/24/18 12:01 ABG O2 Sat (Measured) 99.7 % (90-98.9) H* 03/24/18 12:01 ABG O2 Content 17.5 % vol (15-22) 03/24/18 12:01 ABG Base Excess 5.1 meq/l (-2-2) H 03/24/18 12:01 CXR: no infiltrates ASSESSMENT AND PLAN: Acute on Chronic Hypoxic Respiratory Failure r/o UTI r/o Colitis Severe Sepsis Atrial Fibrillation with RVR Acute COPD Exacerbation CAD LV Diastolic Dysfunction Pulmonary HTN Thrombocytopenia Anemia - broad spectrum antibiotics - f/u cultures - send stool for C diff - IVF resuscitation - rate control - continue anticoagulation - empiric solumedrol 60mg q8h - inhaled bronchodilators standing and PRN - BiPAP to assist in work of breathing - O2 to keep SpO2 >90% - monitor CBC, coags - aspiration precautions - ICU monitoring for tenuous respiratory status critical care time spent in reviewing chart, evaluating patient and formulating plan 35min
--- NOTE | 2018-03-24 15:15 | EKG ---
Test Reason : Blood Pressure : / mmHG Vent. Rate : 150 BPM Atrial Rate : 170 BPM P-R Int : 000 ms QRS Dur : 114 ms QT Int : 308 ms P-R-T Axes : 000 -15 066 degrees QTc Int : 486 ms POOR DATA QUALITY, INTERPRETATION MAY BE ADVERSELY AFFECTED ATRIAL FIBRILLATION WITH RAPID VENTRICULAR RESPONSE RIGHT BUNDLE BRANCH BLOCK ABNORMAL ECG WHEN COMPARED WITH ECG OF 12-MAR-2018 11:16, ATRIAL FIBRILLATION HAS REPLACED SINUS RHYTHM VENT. RATE HAS INCREASED BY 70 BPM QUESTIONABLE CHANGE IN QRS AXIS NON-SPECIFIC CHANGE IN ST SEGMENT IN INFERIOR LEADS ST NOW DEPRESSED IN ANTEROLATERAL LEADS Confirmed by RITA GUTIERREZ, YISEL ([id number]) on 03/24/2018 3:15:03 PM Referred By: Confirmed By:YISEL SALINAS MD
[2018-03-24] MEDS ORDERED: ALBUTEROL SO4 0.083% IH SOL 2.5 MG/3 ML VIAL.NEB. NEB PRN (15:27)
[2018-03-24] MEDS: SODIUM CHLORIDE 1,000 ML IV SCH (15:40)
[2018-03-24] MEDS ORDERED: ALBUTEROL SO4 0.083% IH SOL 2.5 MG/3 ML VIAL.NEB. NEB SCH (16:00)
[2018-03-24] MEDS ORDERED: ALBUTEROL SO4 2.5/IPRATROPIUM 0.5 INH SOL 3 ML VIAL.NEB. NEB SCH (16:00)
[2018-03-24] MEDS ORDERED: methylPREDNISolone NA SUCC 40 MG/1 ML VIAL ONE (16:02)
--- NOTE | 2018-03-24 16:04 | CON.ID ---
Consult Consult Specialty:: infectious disease Referred by:: bg (ed ) Reason for Consultation:: fever - History of Present Illness Chief Complaint: fever History of Present Illness: Just discharged to [facility] on [facility] after recent admission for acute respiratory failure and rapid afib he received 3 days of rocephin and was not on any antiibiotics the rest of the admission apparently had fever to 102 yesterday associated with diarrhea this am when called him he was very weak and tired and this am was 100.2 sent to ED with lethargy and respiratory distress now on bipap he opened his eyes for me was able to nod no when asked if he had pain history of advanced copd oxygen dependent recent chest ct with bilateral apical lesions - known MAC in the past not treated followed by lung transplant at [place] - History Source History Provided By: Medical Record Limitations to Obtaining History: Clinical Condition - Past Medical History Cardio/Vascular: Yes: CAD, CHF, HTN, Hyperlipdemia, Pulmonary Hypertension Pulmonary: Yes: COPD (home oxygen), O2 Dependent, Previously Intubated ( intubated one time several years ago for respiratory failure), Other ( Interstitial lung disease) Gastrointestinal: Yes: GERD, Hiatal Hernia Renal/: Yes: Renal Calculi, UTI Infectious Disease: Yes: Other (known history of MAC, not treated) Additional Medical History: Inguinal hernia. 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 History of Recent Travel: No Home Medications - Allergies Allergies/Adverse Reactions: Allergies Allergy/AdvReac Type Severity Reaction Status Date / Time moxifloxacin HCl Allergy Severe Verified 03/10/18 02:58 [From Avelox] aclidinium bromide Allergy Verified 03/10/18 02:58 [From Tudorza Pressair] shellfish derived Allergy Verified 03/10/18 02:58 - Home Medications Home Medications: Ambulatory Orders Albuterol Sulfate Inhaler - [Ventolin HFA Inhaler -] 2 inh PO Q4H 02/08/14 Arformoterol Tartrate [Brovana] 15 mcg IH BID 02/08/14 Tamsulosin HCl [Flomax -] 0.4 mg PO DAILY 02/08/14 Tiotropium [place] [Spiriva] 1 inh PO DAILY 02/08/14 Beclomethasone Dipropionate [Qvar] 8.7 gm IH DAILY 01/09/16 Polyethylene Glycol 3350 [Miralax 119 gm Btl -] 17 gm PO DAILY PRN #1 bottle 10/15 Ferrous Sulfate [Feosol] 325 mg PO BID ud 05/06/17 Furosemide [Lasix -] 20 mg PO DAILY tablet 05/06/17 Acetaminophen [Tylenol .Regular Strength -] 650 mg PO Q4H PRN tablet 02/20/18 Magnesium Hydrox 2400MG/30Ml [Milk of Magnesia -] 30 ml PO DAILY PRN #1 bottle 02/20/18 Prednisone 10 mg PO ASDIR #65 tablet 02/20/18 Sennosides [Senna -] 2 tab PO HS PRN #60 tablet 02/20/18 Albuterol 0.083% Nebulizer [place]ia [Ventolin 0.083% Nebulizer Soln -] 1 neb NEB Q4H PRN #75 vial 03/06/18 Albuterol 2.5/Ipratropium 0.5 [Duoneb -] 1 amp NEB RQID amp 03/22/18 Alprazolam [Xanax] 0.25 mg PO Q6HPO #20 tablet MDD 4 03/22/18 Apixaban [Eliquis -] 5 mg PO BID tablet 03/22/18 Atorvastatin Ca [Lipitor] 10 mg PO HS tablet 03/22/18 Diltiazem Cd [Cardizem Cd -] 120 mg PO BID cap.cd.24h 03/22/18 Escitalopram Oxalate [Lexapro -] 10 mg PO DAILY tablet 03/22/18 predniSONE [Deltasone -] 30 mg PO BID tablet 03/22/18 Family Disease History - Family Disease History Family History: Denies Review of Systems - Review of Systems Constitutional: reports: Fever Gastrointestinal: reports: Diarrhea Physical Exam Vital Signs: Vital Signs Temperature 99.3 F 03/24/18 13:34 Pulse Rate 95 H 03/24/18 15:20 Respiratory Rate 20 03/24/18 15:20 Blood Pressure 89/61 L 03/24/18 15:20 O2 Sat by Pulse Oximetry (%) 98 03/24/18 15:20 Constitutional: Yes: No Distress, Other (on bipap) HENT: Yes: Atraumatic, Normocephalic Neck: Yes: Supple Cardiovascular: Yes: Regular Rate and Rhythm Respiratory: Yes: Regular, CTA Bilaterally Gastrointestinal: Yes: Normal Bowel Sounds, Soft Musculoskeletal: Yes: WNL Peripheral Pulses WNL: No Labs: CBC, BMP 03/24/18 11:37 03/24/18 11:37 Laboratory Tests 03/24/18 13:13 Urine Color Yellow Urine Appearance Clear Urine pH 7.0 D Ur Specific [place] 1.014 Urine Protein 2+ H Urine Blood 3+ H Urine WBC (Auto) 63 Urine RBC (Auto) 123 Imaging - Results Chest X-ray: Report Reviewed, Image Reviewed (no acute infiltrate noted) Problem List - Problems (1) Sepsis Code(s): A41.9 - SEPSIS, UNSPECIFIED ORGANISM (2) Fever Code(s): R50.9 - FEVER, UNSPECIFIED Qualifiers: Fever type: unspecified Qualified Code(s): R50.9 - Fever, unspecified (3) Acute and chronic respiratory failure Code(s): J96.20 - ACUTE AND CHR RESP FAILURE, UNSP W HYPOXIA OR HYPERCAPNIA Qualifiers: Respiratory failure complication: hypoxia and hypercapnia Qualified Code(s) : J96.21 - Acute and chronic respiratory failure with hypoxia; J96.22 - Acute and chronic respiratory failure with hypercapnia (4) Paroxysmal A-fib Code(s): I48.0 - PAROXYSMAL ATRIAL FIBRILLATION Assessment/Plan received zosyn in ED-switch to cefelpime based on prior culture results add vancomycin to cover skin (recent admission)(prior MRSA colonization) stool cdiff f/u cultures d/w at bedside d/w dr sun over 45 minutes spent in the care of this ICU patient
[2018-03-24] MEDS: methylPREDNISolone NA SUCC 40 MG/1 ML VIAL IVPUSH SCH (16:33)
[2018-03-24] MEDS ORDERED: VANCOMYCIN 1 GRAM (PRE-DOCKED) 1,000 MG/250 ML BAG IVPB ONE (16:36)
[2018-03-24] MEDS ORDERED: ACETAMINOPHEN 1000 MG/100 ML VIAL (NON FORMULARY) IVPB PRN (16:39)
--- NOTE | 2018-03-24 16:48 | CONSULT ---
Consultation: REQUESTING PROVIDER: Mony Leslie CONSULT REQUEST: We have been asked to medically evaluate this patient for sepsis w/ Acute on Chronic Hypoxic Respiratory Failure. HISTORY OF PRESENT ILLNESS: 67 yo M w/ PMH of recently diagnosed atrial fibrillation (on eliquis), chronic hypoxic respiratory failure/COPD (3L of a home oxygen intubated 1x 09), ILD, pulmonary HTN, HTN, HLD, CHF? (echo 03/11/18 showed EF 55-60), CO, CAD, GERD, emphysema, and panic attacks, who was BIBA from [facility] for fever and respiratory distress. Patient was recently admitted on 03/10 in the ICU for acute respiratory failure from COPD exacerbation requiring intubation and rapid afib, d/c 03/22. Patients states that last night her had weakness , NB diarrhea, stomach ache, and a fever of 102 degrees F. Today she states that she spoke to him over the phone this morning and he reported feeling very weak and tired. She states that the next time she was able to get in touch with someone from the SNF, she found out that he was being rushed to the ER. As per EMS, patient was given 10 mg of Decadron, 2g of magnesium sulfate, and 25 mg of Cardizem en route, EKG revealing rapid A. fib with RVR. Report a temp of 99.8 that was taken at the SNF. Denies cough, urinary sxs, blood in stools, SNYDER, cp, abd pain, n/v In the ED, pt placed on BiPAP, HR remained ctl at 100-110, RR decreased to 20. BiPAP FiO2 was decreased from 80% to 30% with resultant oxygen saturation of 97% . CBC revealed no leukocytosis. CXR w/ no obvious infiltrate or effusion; blood pressure has remained labile but was responsive to fluid boluses (received 1.5L ) with MAP of 65-70. Urinalysis revealed pyuria with greater than 60 WBCs per high-power field but no leuk est. Pt started on Zosyn Allergies: moxifloxacin HCl, aclidinium bromide, shellfish derived Past surgical history: Appendectomy. Hiatal hernia repair. Intubated (2008). Social History: Former smoker. Denies EtOH use and recreational drug use. Primary Care Physician: Dr. Leslie Reconsignment Clerk: Dr. Titus Turkey Pinner: Dr. Mckee ID: Dr. [email or web address] REVIEW OF SYSTEMS: as per HPI PHYSICAL EXAMINATION Vital Signs - 24 hr 03/24/18 03/24/18 03/24/18 11:01 11:35 12:00 Temperature 99.6 F Pulse Rate 170 H Pulse Rate [ 138 H Apical] Respiratory 36 H 28 H Rate Blood Pressure 126/82 Blood Pressure 87/55 L [Right Arm] O2 Sat by Pulse 92 L 100 100 Oximetry (%) 03/24/18 03/24/18 03/24/18 12:15 12:53 13:18 Temperature Pulse Rate Pulse Rate [ 138 H 105 H Apical] Respiratory 30 H 24 H Rate Blood Pressure Blood Pressure 75/40 L 89/68 L [Right Arm] O2 Sat by Pulse 98 100 100 Oximetry (%) 03/24/18 03/24/18 03/24/18 13:34 14:00 15:20 Temperature 99.3 F Pulse Rate Pulse Rate [ 118 H 95 H Apical] Respiratory 24 H 20 Rate Blood Pressure Blood Pressure 89/68 L 89/61 L [Right Arm] O2 Sat by Pulse 100 100 98 Oximetry (%) GENERAL: Lethargic but arousable to sternal rub, oriented x3, in mild distress. on bipap HEENT:NCAT, PERRL, sclera anicteric, conjunctiva clear. No lid lag. mm-dry NECK: Normal range of motion, supple without lymphadenopathy, JVD, or masses. LUNGS: on bipap , rhonci b/l HEART: Irregularly irregular, tachycardic, normal S1 and S2 without murmur, rub or gallop. ABDOMEN: Soft, nontender, not distended, normoactive bowel sounds, no guarding, no rebound, no masses. MUSCULOSKELETAL: Normal range of motion at all joints. No bony deformities or tenderness. No CVA tenderness. UPPER EXTREMITIES: 2+ pulses, warm, well-perfused. No cyanosis. No clubbing. Cap refill <2 seconds. No peripheral edema. LOWER EXTREMITIES: 2+ pulses, warm, well-perfused. No calf tenderness. No peripheral edema. NEUROLOGICAL: Lethargic but arousable to sternal rub, oriented x3, PSYCHIATRIC: Cooperative. Good eye contact. SKIN: Warm, dry, normal turgor, no rashes. multiple echymosis on UE b/l Laboratory Results - last 24 hr 03/24/18 03/24/18 03/24/18 11:37 11:37 11:37 WBC 7.8 RBC 3.81 L Hgb 11.5 L Hct 34.9 L MCV 91.6 MCH 30.1 MCHC 32.9 RDW 15.1 Plt Count 76 L D MPV 9.0 Absolute Neuts (auto) 7.3 Neutrophils % 93.8 H Neutrophils % (Manual) 91.8 H Band Neutrophils % 5.1 Lymphocytes % 3.1 L D Lymphocytes % (Manual) 1.0 L D Monocytes % 2.5 L Monocytes % (Manual) 2 L Eosinophils % 0.1 Eosinophils % (Manual) 0.0 Basophils % 0.5 D Basophils % (Manual) 0.0 Myelocytes % (Man) 0 D Promyelocytes % (Man) 0 Blast Cells % (Manual) 0 Nucleated RBC % 0 Metamyelocytes 0 D Hypochromia 0 Platelet Estimate Decreased Polychromasia 0 Poikilocytosis 0 Anisocytosis 0 Microcytosis 0 Macrocytosis 0 Stomatocytes 1+ PT with INR 17.80 H INR 1.50 H PTT (Actin FS) 31.6 Fibrinogen Anticoagulation Therapy Puncture Site ABG pH ABG pCO2 at Pt Temp ABG pO2 at Pt Temp ABG HCO3 ABG O2 Sat (Measured) ABG O2 Content ABG Base Excess Pardeep Test O2 Delivery Device Oxygen Flow Rate Vent Mode Vent Rate Mechanical Rate PEEP Pressure Support Vent Sodium 141 Potassium 3.9 Chloride 99 Carbon Dioxide 34 H Anion Gap 7 L BUN 26 H Creatinine 1.0 Creat Clearance w eGFR > 60 Random Glucose 123 H Lactic Acid Calcium 8.5 Total Bilirubin 0.7 AST 19 ALT 29 Alkaline Phosphatase 80 Troponin I Total Protein 5.2 L Albumin 2.4 L Urine Color Urine Appearance Urine pH Ur Specific [place] Urine Protein Urine Glucose (UA) Urine Ketones Urine Blood Urine Nitrite Urine Bilirubin Urine Urobilinogen Ur Leukocyte Esterase Urine WBC (Auto) Urine RBC (Auto) Ur Epithelial Cells Hyaline Casts Urine Mucus 03/24/18 03/24/18 03/24/18 11:37 11:37 12:01 WBC RBC Hgb Hct MCV MCH MCHC RDW Plt Count MPV Absolute Neuts (auto) Neutrophils % Neutrophils % (Manual) Band Neutrophils % Lymphocytes % Lymphocytes % (Manual) Monocytes % Monocytes % (Manual) Eosinophils % Eosinophils % (Manual) Basophils % Basophils % (Manual) Myelocytes % (Man) Promyelocytes % (Man) Blast Cells % (Manual) Nucleated RBC % Metamyelocytes Hypochromia Platelet Estimate Polychromasia Poikilocytosis Anisocytosis Microcytosis Macrocytosis Stomatocytes PT with INR INR PTT (Actin FS) Fibrinogen Anticoagulation Therapy No Result Required. Puncture Site Right radial ABG pH 7.40 ABG pCO2 at Pt Temp 49.8 H D ABG pO2 at Pt Temp 225.0 H* ABG HCO3 30.4 H ABG O2 Sat (Measured) 99.7 H* ABG O2 Content 17.5 ABG Base Excess 5.1 H Pardeep Test Positive O2 Delivery Device Bipap Oxygen Flow Rate 50% Vent Mode S/t Vent Rate 16 Mechanical Rate Bipap PEEP 0.0 Pressure Support Vent No Result Required. Sodium Potassium Chloride Carbon Dioxide Anion Gap BUN Creatinine Creat Clearance w eGFR Random Glucose Lactic Acid 1.3 Calcium Total Bilirubin AST ALT Alkaline Phosphatase Troponin I 0.25 H Total Protein Albumin Urine Color Urine Appearance Urine pH Ur Specific [place] Urine Protein Urine Glucose (UA) Urine Ketones Urine Blood Urine Nitrite Urine Bilirubin Urine Urobilinogen Ur Leukocyte Esterase Urine WBC (Auto) Urine RBC (Auto) Ur Epithelial Cells Hyaline Casts Urine Mucus 03/24/18 03/24/18 13:13 15:30 WBC RBC Hgb Hct MCV MCH MCHC RDW Plt Count MPV Absolute Neuts (auto) Neutrophils % Neutrophils % (Manual) Band Neutrophils % Lymphocytes % Lymphocytes % (Manual) Monocytes % Monocytes % (Manual) Eosinophils % Eosinophils % (Manual) Basophils % Basophils % (Manual) Myelocytes % (Man) Promyelocytes % (Man) Blast Cells % (Manual) Nucleated RBC % Metamyelocytes Hypochromia Platelet Estimate Polychromasia Poikilocytosis Anisocytosis Microcytosis Macrocytosis Stomatocytes PT with INR INR PTT (Actin FS) Fibrinogen 668.0 H Anticoagulation Therapy Puncture Site ABG pH ABG pCO2 at Pt Temp ABG pO2 at Pt Temp ABG HCO3 ABG O2 Sat (Measured) ABG O2 Content ABG Base Excess Pardeep Test O2 Delivery Device Oxygen Flow Rate Vent Mode Vent Rate Mechanical Rate PEEP Pressure Support Vent Sodium Potassium Chloride Carbon Dioxide Anion Gap BUN Creatinine Creat Clearance w eGFR Random Glucose Lactic Acid Calcium Total Bilirubin AST ALT Alkaline Phosphatase Troponin I Total Protein Albumin Urine Color Yellow Urine Appearance Clear Urine pH 7.0 D Ur Specific [place] 1.014 Urine Protein 2+ H Urine Glucose (UA) Negative Urine Ketones Negative Urine Blood 3+ H Urine Nitrite Negative Urine Bilirubin Negative Urine Urobilinogen Negative Ur Leukocyte Esterase Negative Urine WBC (Auto) 63 Urine RBC (Auto) 123 Ur Epithelial Cells Rare Hyaline Casts 1 Urine Mucus Rare Active Medications Generic Name Dose Route Start Last Admin Trade Name Freq PRN Reason Stop Dose Admin Albuterol Sulfate 1 amp 03/24/18 16:00 Ventolin 0.083% Nebulizer Soln - NEB QIDR TA Sodium Chloride 1,000 mls @ 125 mls/hr 03/24/18 15:30 03/24/18 15:40 Normal Saline - IV 125 mls/hr ASDIR TA Administration Piperacillin Sod/Tazobactam 100 mls @ 200 mls/hr 03/25/18 21:00 Sod 4.5 gm/ Dextrose IVPB Q6H-IV TA Protocol Piperacillin Sod/Tazobactam 100 mls @ 200 mls/hr 03/24/18 21:00 Sod 4.5 gm/ Dextrose IVPB 03/25/18 15:29 Q6H-IV TA Methylprednisolone Sodium Succinate 60 mg 03/24/18 15:45 Solu-Medrol - IVPUSH Q8H-IV TA ASSESSMENT/PLAN: 67 yo M w/ PMH of recently diagnosed atrial fibrillation (on eliquis), chronic hypoxic respiratory failure/COPD (3L of a home oxygen intubated 1x 09), ILD, pulmonary HTN, HTN, HLD, CHF? (echo 03/11/18 showed EF 55-60), CO, CAD, GERD, emphysema, and panic attacks, who was BIBA from [facility] for fever and respiratory distress. #Neuro Lethargic but arousable to sternal rub, oriented x3 #Cardiac - Atrial Fibrillation with RVR -HR currently ctl 100-110, MAP 70s -IV cardizem 10mg prn for HR >120 -IVF 125cc in setting of sepsis, monitor lungs given hx CHF? (echo 03/11/18 showed EF 55-60) -BP responded to 500cc boluses x3 -unable to take eliquis due to current acute process, resume meds once NPO status is removed and thrombocytopenia improves or stabilizes -Heparin 5000 U SQ TID #Resp - Acute COPD Exacerbation -bipap -inhaled bronchodilators standing and PRN -solumedrol 60mg q8h -O2 to keep SpO2 >90% -aspiration precautions -CXR and ABG ordered for almita #GI -diarrhea in setting of fever and recent hospitalization -send stool for C diff #Infectious -sepsis 2/2 unclear etiology, possibly UTI -Urinalysis revealed pyuria with greater than 60 WBCs but no leukocytosis -ID consult -f/u cultures -vanc/cefepime -received zosyn in ED -send stool for C diff, in setting of diarrhea #Heme -anemia likely 2/2 iron def -anemia w/u per primary team -monitor CBC, coags -fibrinogen 668 -unable to take eliquis due to current acute process, resume meds once NPO status is removed and thrombocytopenia improves or stabilizes #FEN -IVF NS 125cc -replete prn -on bipap, nothing by mouth ppx -SQH 5000U tid, unable to take eliquis due to current acute process, resume meds once NPO status is removed and thrombocytopenia improves or stabilizes #Dispo: -ICU monitoring for tenuous respiratory status We will continue to follow the patient. Thank you for this consultative opportunity. Visit type - Emergency Visit Emergency Visit: Yes ED Registration Date: 03/24/18 Care time: The patient presented to the Emergency Department on the above date and was hospitalized for further evaluation of their emergent condition. - New Patient This patient is new to me today: Yes Date on this admission: 03/24/18 - Critical Care Critical Care patient: Yes Total Critical Care Time (in minutes): 45 Critical Care Statement: The care of this patient involved high complexity decision making to prevent further life threatening deterioration of the patient 's condition and/or to evaluate & treat vital organ system(s) failure or risk of failure.
[2018-03-24] MEDS ORDERED: dilTIAZem HCL 50 MG/10 ML - 10 ML VIAL IVPUSH PRN (16:54)
[2018-03-24] MEDS ORDERED: HEPARIN NA (PORCINE) 5,000 UNITS/ML 1ML VIAL ONE ×2 (17:17→22:49)
[2018-03-24] MEDS: VANCOMYCIN 1 GRAM (PRE-DOCKED) 1,000 MG/250 ML BAG IVPB SCH (17:32)
[2018-03-24] MEDS: HEPARIN NA (PORCINE) 5,000 UNITS/ML 1ML VIAL SQ SCH ×2 (17:32→22:59)
[2018-03-24] MEDS: CEFEPIME 2 GM in DEXTROSE 5%-WATER - 100 ML IVPB SCH (20:29)
[2018-03-24] MEDS ORDERED: PIPERACILLIN/TAZOB 4.5 GM 4.5 GM in DEXTROSE 5%-WATER 100 ML IVPB SCH (21:00)
[2018-03-24] MEDS ORDERED: dilTIAZem HCL 60 MG TABLET (FP) ONE (23:37)
[2018-03-24] MEDS: BUDESONIDE/FORMETEROL FUMARATE 160/4.5 mcg INHALER IH SCH (23:54)
[2018-03-24] MEDS: ARFORMOTEROL TARTRATE 15 MCG/2 ML VIAL NEB SCH (23:54)
[2018-03-25] MEDS: methylPREDNISolone NA SUCC 40 MG/1 ML VIAL IVPUSH SCH ×2 (02:57→10:29)
[2018-03-25] MEDS: CEFEPIME 2 GM in DEXTROSE 5%-WATER - 100 ML IVPB SCH ×4 (06:17→23:53)
[2018-03-25] MEDS: HEPARIN NA (PORCINE) 5,000 UNITS/ML 1ML VIAL SQ SCH (06:20)
[2018-03-25 06:33] LABS: ARTERIAL BLD GAS O2 SATURATION 95.6 % (90-98.9); ARTERIAL BLOOD GAS BASE EXCESS 4.4 meq/l (-2-2); ARTERIAL BLOOD GAS PO2 77.1 mmHg (80-100); ARTERIAL BLOOD GAS pH 7.45 (7.35-7.45)
[2018-03-25 06:48] LABS: ALLENS TEST POSITIVE
[2018-03-25 06:55] LABS: CARBOXYHEMOGLOBIN 1.6 gm% (0.5-2.0)
[2018-03-25] MEDS: ALBUTEROL SO4 0.083% IH SOL 2.5 MG/3 ML VIAL.NEB. NEB SCH ×4 (08:00→19:58)
--- NOTE | 2018-03-25 08:25 | PN ---
Progress Note, Physician - Current Medication List Current Medications: Active Medications Acetaminophen (Ofirmev Injection -) 1,000 mg IVPB Q6H PRN PRN Reason: PAIN OR FEVER Albuterol Sulfate (Ventolin 0.083% Nebulizer Soln -) 1 amp NEB RQID TA Arformoterol Tartrate (Brovana (Restricted To Pulmonology/Resp) -) 1 amp NEB BID [facility] Last Admin: 03/24/18 23:54 Dose: 1 amp Budesonide/Formoterol Fumarate (Symbicort 160/4.5mcg -) 2 puff IH BID [facility] Last Admin: 03/24/18 23:54 Dose: 2 puff Chlorhexidine Gluconate (Hibiclens For Decolonization -) 1 applic TP HS TA Diltiazem HCl (Cardizem Injection -) 10 mg IVPUSH Q4H PRN PRN Reason: TACHYCARDIA Diltiazem HCl (Cardizem Cd -) 120 mg PO BID [facility] Last Admin: 03/24/18 23:54 Dose: 120 mg Heparin Sodium (Porcine) (Heparin -) 5,000 unit SQ TID [facility] Last Admin: 03/25/18 06:20 Dose: 5,000 unit Sodium Chloride (Normal Saline -) 1,000 mls @ 125 mls/hr IV ASDIR [facility] Last Admin: 03/24/18 15:40 Dose: 125 mls/hr Vancomycin HCl (Vancomycin (Pre-Docked)) 1,000 mg in 250 mls @ 166.667 mls/hr IVPB BID@0500,1700 [facility]; Protocol Last Admin: 03/24/18 17:32 Dose: 166.667 mls/hr Cefepime HCl 2 gm/ Dextrose 100 mls @ 200 mls/hr IVPB TID [facility]; Protocol Last Admin: 03/25/18 06:17 Dose: 200 mls/hr Methylprednisolone Sodium Succinate (Solu-Medrol -) 60 mg IVPUSH Q8H-IV [facility] Last Admin: 03/25/18 02:57 Dose: 60 mg Mupirocin (Bactroban Ointment (For Decolonization) -) 1 applic NS BID [facility] Stop: 03/30/18 09:59 Pneumococcal 13-Valent Conj Vacc (Prevnar 13 Syringe -) 0.5 ml IM .ONCE ONE Stop: 03/25/18 10:01 - Objective Vital Signs: Vital Signs Temperature 98.3 F 03/25/18 05:09 Pulse Rate 77 03/25/18 06:00 Respiratory Rate 20 03/25/18 06:00 Blood Pressure 128/67 03/25/18 06:00 O2 Sat by Pulse Oximetry (%) 99 03/25/18 05:36 Cardiovascular: Yes: S1, S2 Respiratory: Yes: Diminished, On Venti-Mask Gastrointestinal: Yes: Normal Bowel Sounds, Soft. No: Tenderness Labs: CBC, BMP 03/24/18 11:37 03/24/18 11:37 INR, PTT INR 1.50 (0.83-1.09) H 03/24/18 11:37 Fibrinogen 668.0 mg/dL (238-498) H 03/24/18 15:30 Assessment/Plan - Problems (1) Diarrhea Assessment/Plan: -Seen by ID -Stool for cdiff pending -IV Vanco -gentle IVF Code(s): R19.7 - DIARRHEA, UNSPECIFIED (2) Sepsis Assessment/Plan: -Lactic acid normal -febrile at the rehab, afebrile at the moment -/ pending -IVF- fluid resuscitation for hypotension -ICU monitoring -ID on board -CXR unremarkable Code(s): A41.9 - SEPSIS, UNSPECIFIED ORGANISM (3) Acute and chronic respiratory failure Assessment/Plan: -Seen by pulmonary -BIPAP, to keep SpO2 > 90% -Solumedrol 60 Q8H -Bronchodilators -IV abx Code(s): J96.20 - ACUTE AND CHR RESP FAILURE, UNSP W HYPOXIA OR HYPERCAPNIA Qualifiers: Respiratory failure complication: hypoxia and hypercapnia Qualified Code(s) : J96.21 - Acute and chronic respiratory failure with hypoxia; J96.22 - Acute and chronic respiratory failure with hypercapnia (4) COPD exacerbation Assessment/Plan: -Pulmonary on board -BIPAP -Bronchodilators -Solumedrol 60 mg Q8H -CXR unremarkable Code(s): J44.1 - CHRONIC OBSTRUCTIVE PULMONARY DISEASE W (ACUTE) EXACERBATION (5) Paroxysmal atrial fibrillation with rapid ventricular response Assessment/Plan: -Received Diltiazem IVP upon arrive -converted to SR -Repeat EKG ordered -ICU monitoring -unable to take eliquis due to current acute process, resume meds once NPO status is removed -Heparin 5000 U SQ TID Code(s): I48.0 - PAROXYSMAL ATRIAL FIBRILLATION (6) Elevated troponin Assessment/Plan: -likely 2/2 to demand ischemia -repeat troponin series Q8H x 3 Code(s): R74.8 - ABNORMAL LEVELS OF OTHER SERUM ENZYMES (7) Hypoalbuminemia Assessment/Plan: -due to decreased PO intake -start Prosource and order RD consult once NPO status is removed Code(s): E88.09 - OTH DISORDERS OF PLASMA-PROTEIN METABOLISM, NEC (8) Protein calorie malnutrition Assessment/Plan: -due to decreased PO intake -start Prosource and order RD consult once NPO status is removed Code(s): E46 - UNSPECIFIED PROTEIN-CALORIE MALNUTRITION (9) Anemia Assessment/Plan: -previously iron deficiency -recheck B12, Thyroid/iron profile and folic acid -check stool OB -monitor trend Code(s): D64.9 - ANEMIA, UNSPECIFIED Qualifiers: Anemia type: unspecified type Qualified Code(s): D64.9 - Anemia, unspecified Assessment/Plan see problem list Teds DISPO: ICU monitoring
[2018-03-25 09:13] LABS: BASO % 0.5 % (0-2.0); HEMATOCRIT 32.7 % (35.4-49); HEMOGLOBIN 10.5 GM/dL (11.7-16.9); LYMPH % 1.4 % (8-40); MCH 29.5 pg (25.7-33.7); MCHC 32.1 g/dl (32.0-35.9); MEAN CELL VOLUME 91.7 fl (80-96); MEAN PLT VOLUME 9.2 fl (7.5-11.1); MONO % 2.8 % (3.8-10.2); NEUT % 95.3 % (42.8-82.8); PLATELET COUNT 72 K/MM3 (134-434); RBC 3.57 M/mm3 (4.00-5.60); RDW 14.5 % (11.9-15.9); WHITE BLOOD COUNT 7.7 K/mm3 (4.0-10.0)
[2018-03-25] MEDS: VANCOMYCIN 1 GRAM (PRE-DOCKED) 1,000 MG/250 ML BAG IVPB SCH ×3 (09:32→23:52)
[2018-03-25 09:45] LABS: INR 1.32 (0.83-1.09); PROTHROMBIN TIME (PATIENT) 15.6 SEC (9.7-13.0)
[2018-03-25 09:47] LABS: ACTIVATED PTT 35.3 SECONDS (25.2-36.5)
[2018-03-25] MEDS ORDERED: PNEUMOC 13-VAL CONJ-DIP CRM/PF 0.5 ML DISP.SYRIN IM ONE (10:00)
[2018-03-25] MEDS: ARFORMOTEROL TARTRATE 15 MCG/2 ML VIAL NEB SCH ×2 (10:10→21:01)
[2018-03-25 10:28] LABS: ALBUMIN 2.1 g/dl (3.4-5.0); ALK PHOS 76 U/L (45-117); ANION GAP 10 MMOL/L (8-16); BILIRUBIN,TOTAL 0.5 mg/dL (0.2-1); BLOOD UREA NITROGEN 23 mg/dL (7-18); CALCIUM 7.7 mg/dL (8.5-10.1); CHLORIDE 109 mmol/L (98-107); CO2 29 mmol/L (21-32); CREATININE 0.6 mg/dL (0.55-1.3); GLUCOSE,RANDOM 156 mg/dL (74-106); MAGNESIUM 2.5 mg/dL (1.8-2.4); PHOSPHOROUS 1.8 mg/dL (2.5-4.9); SGOT/AST 18 U/L (15-37); SGPT/ALT 26 U/L (13-61); SODIUM 148 mmol/L (136-145); TOT PROT 5.2 g/dl (6.4-8.2)
[2018-03-25] MEDS: MUPIROCIN 2% TOPICAL OINTMENT FOR DECOLONIZATION NS SCH ×2 (10:32→21:42)
[2018-03-25] MEDS: BUDESONIDE/FORMETEROL FUMARATE 160/4.5 mcg INHALER IH SCH ×2 (10:32→21:53)
--- NOTE | 2018-03-25 11:38 | PN ---
Progress Note, Physician History of Present Illness: Awake, alert Conversant Slightly tachypneic on ventimask Afebrile BC+ GPCCL - Current Medication List Current Medications: Active Medications Acetaminophen (Ofirmev Injection -) 1,000 mg IVPB Q6H PRN PRN Reason: PAIN OR FEVER Albuterol Sulfate (Ventolin 0.083% Nebulizer Soln -) 1 amp NEB RQID [facility] Last Admin: 03/25/18 08:00 Dose: 1 amp Arformoterol Tartrate (Brovana (Restricted To Pulmonology/Resp) -) 1 amp NEB BID [facility] Last Admin: 03/24/18 23:54 Dose: 1 amp Budesonide/Formoterol Fumarate (Symbicort 160/4.5mcg -) 2 puff IH BID [facility] Last Admin: 03/25/18 10:32 Dose: 2 puff Chlorhexidine Gluconate (Hibiclens For Decolonization -) 1 applic TP HS TA Diltiazem HCl (Cardizem Injection -) 10 mg IVPUSH Q4H PRN PRN Reason: TACHYCARDIA Diltiazem HCl (Cardizem Cd -) 120 mg PO BID [facility] Last Admin: 03/25/18 10:30 Dose: 120 mg Heparin Sodium (Porcine) (Heparin -) 5,000 unit SQ TID [facility] Last Admin: 03/25/18 06:20 Dose: 5,000 unit Sodium Chloride (Normal Saline -) 1,000 mls @ 125 mls/hr IV ASDIR [facility] Last Admin: 03/24/18 15:40 Dose: 125 mls/hr Cefepime HCl 2 gm/ Dextrose 100 mls @ 200 mls/hr IVPB TID [facility]; Protocol Last Admin: 03/25/18 06:17 Dose: 200 mls/hr Vancomycin HCl (Vancomycin (Pre-Docked)) 1,000 mg in 250 mls @ 166.667 mls/hr IVPB BID@0900,2100 [facility]; Protocol Last Admin: 03/25/18 09:32 Dose: 166.667 mls/hr Methylprednisolone Sodium Succinate (Solu-Medrol -) 60 mg IVPUSH Q8H-IV [facility] Last Admin: 03/25/18 10:29 Dose: 60 mg Mupirocin (Bactroban Ointment (For Decolonization) -) 1 applic NS BID [facility] Stop: 03/30/18 09:59 Last Admin: 03/25/18 10:32 Dose: 1 applic - Objective Vital Signs: Vital Signs Temperature 98.4 F 03/25/18 10:00 Pulse Rate 84 03/25/18 10:00 Respiratory Rate 28 H 03/25/18 10:00 Blood Pressure 109/67 03/25/18 10:00 O2 Sat by Pulse Oximetry (%) 98 03/25/18 09:00 Constitutional: Yes: Mild Distress Cardiovascular: Yes: Regular Rate and Rhythm, S1, S2 Respiratory: Yes: Diminished Gastrointestinal: Yes: Normal Bowel Sounds, Soft. No: Tenderness Edema: No Labs: CBC, BMP 03/25/18 09:00 03/25/18 09:00 INR, PTT INR 1.32 (0.83-1.09) H 03/25/18 09:00 Fibrinogen 668.0 mg/dL (238-498) H 03/24/18 15:30 Assessment/Plan Acute exacerbation COPD + BC ? staph sepsis Thrombocytopenia ? secondary to sepsis Will repeat BC Continue vancomycin/ cefepime Discussed with at bedside
--- NOTE | 2018-03-25 12:17 | EKG ---
Test Reason : Blood Pressure : / mmHG Vent. Rate : 081 BPM Atrial Rate : 081 BPM P-R Int : 156 ms QRS Dur : 126 ms QT Int : 380 ms P-R-T Axes : 072 069 021 degrees QTc Int : 441 ms NORMAL SINUS RHYTHM RIGHT BUNDLE BRANCH BLOCK ABNORMAL ECG WHEN COMPARED WITH ECG OF 24-MAR-2018 11:13, SINUS RHYTHM HAS REPLACED ATRIAL FIBRILLATION VENT. RATE HAS DECREASED BY 69 BPM QUESTIONABLE CHANGE IN QRS AXIS NON-SPECIFIC CHANGE IN ST SEGMENT IN INFERIOR LEADS ST NO LONGER DEPRESSED IN ANTEROLATERAL LEADS Confirmed by EULALIO INIGUEZ MD ([id number]) on 03/25/2018 12:17:34 PM Referred By: Confirmed By:EULALIO INIGUEZ MD
--- NOTE | 2018-03-25 12:17 | PN ---
Teaching Attending Note Name of Resident: Celestine Carrillo ATTENDING PHYSICIAN STATEMENT I saw and evaluated the patient. I reviewed the resident's note and discussed the case with the resident. I agree with the resident's findings and plan as documented. SUBJECTIVE: Patient seen and examined in the ICU. Awake and alert on VM O2. Breathing better but not at baseline. Noted (+) blood cultures. Intake & Output 03/22/18 03/23/18 03/24/18 03/25/18 23:59 23:59 23:59 23:59 Intake Total 1500 100 Output Total 500 600 Balance 1000 -500 Weight 138 lb 14.259 oz 138 lb 14.259 oz Last Vital Signs Temp Pulse Resp BP Pulse Ox 98.4 F 84 28 H 109/67 98 03/25/18 10:00 03/25/18 10:00 03/25/18 10:00 03/25/18 10:00 03/25/18 09:00 Active Medications Acetaminophen (Ofirmev Injection -) 1,000 mg IVPB Q6H PRN PRN Reason: PAIN OR FEVER Albuterol Sulfate (Ventolin 0.083% Nebulizer Soln -) 1 amp NEB RQID [facility] Last Admin: 03/25/18 11:15 Dose: 1 amp Apixaban (Eliquis -) 5 mg PO BID TA Arformoterol Tartrate (Brovana (Restricted To Pulmonology/Resp) -) 1 amp NEB BID [facility] Last Admin: 03/25/18 10:10 Dose: 1 amp Budesonide/Formoterol Fumarate (Symbicort 160/4.5mcg -) 2 puff IH BID [facility] Last Admin: 03/25/18 10:32 Dose: 2 puff Chlorhexidine Gluconate (Hibiclens For Decolonization -) 1 applic TP HS TA Diltiazem HCl (Cardizem Injection -) 10 mg IVPUSH Q4H PRN PRN Reason: TACHYCARDIA Diltiazem HCl (Cardizem Cd -) 120 mg PO BID [facility] Last Admin: 03/25/18 10:30 Dose: 120 mg Sodium Chloride (Normal Saline -) 1,000 mls @ 125 mls/hr IV ASDIR [facility] Last Admin: 03/24/18 15:40 Dose: 125 mls/hr Cefepime HCl 2 gm/ Dextrose 100 mls @ 200 mls/hr IVPB TID [facility]; Protocol Last Admin: 03/25/18 06:17 Dose: 200 mls/hr Vancomycin HCl (Vancomycin (Pre-Docked)) 1,000 mg in 250 mls @ 166.667 mls/hr IVPB BID@0900,2100 [facility]; Protocol Last Admin: 03/25/18 09:32 Dose: 166.667 mls/hr Methylprednisolone Sodium Succinate (Solu-Medrol -) 60 mg IVPUSH Q8H-IV [facility] Last Admin: 03/25/18 10:29 Dose: 60 mg Mupirocin (Bactroban Ointment (For Decolonization) -) 1 applic NS BID TA Stop: 03/30/18 09:59 Last Admin: 03/25/18 10:32 Dose: 1 applic Gen: Awake and alert, mildly tachypneic on VM O2 Heart: tachycardic, irregular Lung: scattered bilateral rhonchi, no wheezing Abd: soft, nontender Ext: no edema Laboratory Results - last 24 hr 03/24/18 03/24/18 03/24/18 11:37 11:37 11:37 WBC RBC Hgb Hct MCV MCH MCHC RDW Plt Count MPV Absolute Neuts (auto) Neutrophils % Neutrophils % (Manual) 91.8 H Band Neutrophils % 5.1 Lymphocytes % Lymphocytes % (Manual) 1.0 L D Monocytes % Monocytes % (Manual) 2 L Eosinophils % Eosinophils % (Manual) 0.0 Basophils % Basophils % (Manual) 0.0 Myelocytes % (Man) 0 D Promyelocytes % (Man) 0 Blast Cells % (Manual) 0 Nucleated RBC % Metamyelocytes 0 D Hypochromia 0 Platelet Estimate Decreased Polychromasia 0 Poikilocytosis 0 Anisocytosis 0 Microcytosis 0 Macrocytosis 0 Stomatocytes 1+ PT with INR INR PTT (Actin FS) Fibrinogen Anticoagulation Therapy Puncture Site ABG pH ABG pCO2 at Pt Temp ABG pO2 at Pt Temp ABG HCO3 ABG O2 Sat (Measured) ABG O2 Content ABG Base Excess Pardeep Test Carboxyhemoglobin Methemoglobin O2 Delivery Device Oxygen Flow Rate Vent Mode Vent Rate Mechanical Rate PEEP Pressure Support Vent Sodium 141 Potassium 3.9 Chloride 99 Carbon Dioxide 34 H Anion Gap 7 L BUN 26 H Creatinine 1.0 Creat Clearance w eGFR > 60 Random Glucose 123 H Hemoglobin A1c % Lactic Acid 1.3 Calcium 8.5 Phosphorus Magnesium Ferritin Total Bilirubin 0.7 AST 19 ALT 29 Alkaline Phosphatase 80 Creatine Kinase Troponin I Total Protein 5.2 L Albumin 2.4 L Vitamin B12 Serum Folate TSH Free T4 Urine Color Urine Appearance Urine pH Ur Specific [place] Urine Protein Urine Glucose (UA) Urine Ketones Urine Blood Urine Nitrite Urine Bilirubin Urine Urobilinogen Ur Leukocyte Esterase Urine WBC (Auto) Urine RBC (Auto) Ur Epithelial Cells Hyaline Casts Urine Mucus 03/24/18 03/24/18 03/24/18 11:37 12:01 13:13 WBC RBC Hgb Hct MCV MCH MCHC RDW Plt Count MPV Absolute Neuts (auto) Neutrophils % Neutrophils % (Manual) Band Neutrophils % Lymphocytes % Lymphocytes % (Manual) Monocytes % Monocytes % (Manual) Eosinophils % Eosinophils % (Manual) Basophils % Basophils % (Manual) Myelocytes % (Man) Promyelocytes % (Man) Blast Cells % (Manual) Nucleated RBC % Metamyelocytes Hypochromia Platelet Estimate Polychromasia Poikilocytosis Anisocytosis Microcytosis Macrocytosis Stomatocytes PT with INR INR PTT (Actin FS) Fibrinogen Anticoagulation Therapy Puncture Site Right radial ABG pH 7.40 ABG pCO2 at Pt Temp 49.8 H D ABG pO2 at Pt Temp 225.0 H* ABG HCO3 30.4 H ABG O2 Sat (Measured) 99.7 H* ABG O2 Content 17.5 ABG Base Excess 5.1 H Pardeep Test Positive Carboxyhemoglobin Methemoglobin O2 Delivery Device Bipap Oxygen Flow Rate 50% Vent Mode S/t Vent Rate 16 Mechanical Rate Bipap PEEP 0.0 Pressure Support Vent Sodium Potassium Chloride Carbon Dioxide Anion Gap BUN Creatinine Creat Clearance w eGFR Random Glucose Hemoglobin A1c % Lactic Acid Calcium Phosphorus Magnesium Ferritin Total Bilirubin AST ALT Alkaline Phosphatase Creatine Kinase Troponin I 0.25 H Total Protein Albumin Vitamin B12 Serum Folate TSH Free T4 Urine Color Yellow Urine Appearance Clear Urine pH 7.0 D Ur Specific [place] 1.014 Urine Protein 2+ H Urine Glucose (UA) Negative Urine Ketones Negative Urine Blood 3+ H Urine Nitrite Negative Urine Bilirubin Negative Urine Urobilinogen Negative Ur Leukocyte Esterase Negative Urine WBC (Auto) 63 Urine RBC (Auto) 123 Ur Epithelial Cells Rare Hyaline Casts 1 Urine Mucus Rare 03/24/18 03/24/18 03/25/18 15:30 20:35 05:50 WBC RBC Hgb Hct MCV MCH MCHC RDW Plt Count MPV Absolute Neuts (auto) Neutrophils % Neutrophils % (Manual) Band Neutrophils % Lymphocytes % Lymphocytes % (Manual) Monocytes % Monocytes % (Manual) Eosinophils % Eosinophils % (Manual) Basophils % Basophils % (Manual) Myelocytes % (Man) Promyelocytes % (Man) Blast Cells % (Manual) Nucleated RBC % Metamyelocytes Hypochromia Platelet Estimate Polychromasia Poikilocytosis Anisocytosis Microcytosis Macrocytosis Stomatocytes PT with INR INR PTT (Actin FS) Fibrinogen 668.0 H Anticoagulation Therapy Puncture Site ABG pH ABG pCO2 at Pt Temp ABG pO2 at Pt Temp ABG HCO3 ABG O2 Sat (Measured) ABG O2 Content ABG Base Excess Pardeep Test Carboxyhemoglobin 1.6 Methemoglobin 0.4 O2 Delivery Device Oxygen Flow Rate Vent Mode Vent Rate Mechanical Rate PEEP Pressure Support Vent Sodium Potassium Chloride Carbon Dioxide Anion Gap BUN Creatinine Creat Clearance w eGFR Random Glucose Hemoglobin A1c % Lactic Acid Calcium Phosphorus Magnesium Ferritin Total Bilirubin AST ALT Alkaline Phosphatase Creatine Kinase Troponin I 0.23 H Total Protein Albumin Vitamin B12 Serum Folate TSH Free T4 Urine Color Urine Appearance Urine pH Ur Specific [place] Urine Protein Urine Glucose (UA) Urine Ketones Urine Blood Urine Nitrite Urine Bilirubin Urine Urobilinogen Ur Leukocyte Esterase Urine WBC (Auto) Urine RBC (Auto) Ur Epithelial Cells Hyaline Casts Urine Mucus 03/25/18 03/25/18 03/25/18 05:50 09:00 09:00 WBC 7.7 RBC 3.57 L Hgb 10.5 L Hct 32.7 L MCV 91.7 MCH 29.5 MCHC 32.1 RDW 14.5 Plt Count 72 L MPV 9.2 Absolute Neuts (auto) 7.3 Neutrophils % 95.3 H Neutrophils % (Manual) Band Neutrophils % Lymphocytes % 1.4 L D Lymphocytes % (Manual) Monocytes % 2.8 L Monocytes % (Manual) Eosinophils % 0.0 D Eosinophils % (Manual) Basophils % 0.5 Basophils % (Manual) Myelocytes % (Man) Promyelocytes % (Man) Blast Cells % (Manual) Nucleated RBC % 0 Metamyelocytes Hypochromia Platelet Estimate Polychromasia Poikilocytosis Anisocytosis Microcytosis Macrocytosis Stomatocytes PT with INR INR PTT (Actin FS) Cancelled Fibrinogen Anticoagulation Therapy No Result Required. Puncture Site Right radial ABG pH 7.45 ABG pCO2 at Pt Temp 42.0 ABG pO2 at Pt Temp 77.1 L D ABG HCO3 28.4 H ABG O2 Sat (Measured) 95.6 ABG O2 Content 11.1 L ABG Base Excess 4.4 H Pardeep Test Positive Carboxyhemoglobin Methemoglobin O2 Delivery Device Bipap 15/7 Oxygen Flow Rate 30% Vent Mode No Result Required. Vent Rate 16 Mechanical Rate Bipap PEEP Pressure Support Vent 15/7 Sodium Potassium Chloride Carbon Dioxide Anion Gap BUN Creatinine Creat Clearance w eGFR Random Glucose Hemoglobin A1c % Lactic Acid Calcium Phosphorus Magnesium Ferritin Total Bilirubin AST ALT Alkaline Phosphatase Creatine Kinase Troponin I Total Protein Albumin Vitamin B12 Serum Folate TSH Free T4 Urine Color Urine Appearance Urine pH Ur Specific [place] Urine Protein Urine Glucose (UA) Urine Ketones Urine Blood Urine Nitrite Urine Bilirubin Urine Urobilinogen Ur Leukocyte Esterase Urine WBC (Auto) Urine RBC (Auto) Ur Epithelial Cells Hyaline Casts Urine Mucus 03/25/18 03/25/18 03/25/18 09:00 09:00 09:00 WBC RBC Hgb Hct MCV MCH MCHC RDW Plt Count MPV Absolute Neuts (auto) Neutrophils % Neutrophils % (Manual) Band Neutrophils % Lymphocytes % Lymphocytes % (Manual) Monocytes % Monocytes % (Manual) Eosinophils % Eosinophils % (Manual) Basophils % Basophils % (Manual) Myelocytes % (Man) Promyelocytes % (Man) Blast Cells % (Manual) Nucleated RBC % Metamyelocytes Hypochromia Platelet Estimate Polychromasia Poikilocytosis Anisocytosis Microcytosis Macrocytosis Stomatocytes PT with INR 15.60 H INR 1.32 H PTT (Actin FS) 35.3 Fibrinogen Anticoagulation Therapy Puncture Site ABG pH ABG pCO2 at Pt Temp ABG pO2 at Pt Temp ABG HCO3 ABG O2 Sat (Measured) ABG O2 Content ABG Base Excess Pardeep Test Carboxyhemoglobin Methemoglobin O2 Delivery Device Oxygen Flow Rate Vent Mode Vent Rate Mechanical Rate PEEP Pressure Support Vent Sodium 148 H Potassium 4.0 Chloride 109 H Carbon Dioxide 29 Anion Gap 10 BUN 23 H Creatinine 0.6 Creat Clearance w eGFR > 60 Random Glucose 156 H Hemoglobin A1c % Lactic Acid Calcium 7.7 L Phosphorus 1.8 L Magnesium 2.5 H Ferritin 339.5 Total Bilirubin 0.5 AST 18 ALT 26 Alkaline Phosphatase 76 Creatine Kinase 105 Troponin I 0.24 H Cancelled Total Protein 5.2 L Albumin 2.1 L Vitamin B12 1385 H Serum Folate 19 H TSH 0.24 L D Free T4 1.02 Urine Color Urine Appearance Urine pH Ur Specific [place] Urine Protein Urine Glucose (UA) Urine Ketones Urine Blood Urine Nitrite Urine Bilirubin Urine Urobilinogen Ur Leukocyte Esterase Urine WBC (Auto) Urine RBC (Auto) Ur Epithelial Cells Hyaline Casts Urine Mucus 03/25/18 03/25/18 03/25/18 09:00 09:00 09:00 WBC RBC Hgb Hct MCV MCH MCHC RDW Plt Count MPV Absolute Neuts (auto) Neutrophils % Neutrophils % (Manual) Band Neutrophils % Lymphocytes % Lymphocytes % (Manual) Monocytes % Monocytes % (Manual) Eosinophils % Eosinophils % (Manual) Basophils % Basophils % (Manual) Myelocytes % (Man) Promyelocytes % (Man) Blast Cells % (Manual) Nucleated RBC % Metamyelocytes Hypochromia Platelet Estimate Polychromasia Poikilocytosis Anisocytosis Microcytosis Macrocytosis Stomatocytes PT with INR INR PTT (Actin FS) Fibrinogen Anticoagulation Therapy Puncture Site ABG pH ABG pCO2 at Pt Temp ABG pO2 at Pt Temp ABG HCO3 ABG O2 Sat (Measured) ABG O2 Content ABG Base Excess Pardeep Test Carboxyhemoglobin Methemoglobin O2 Delivery Device Oxygen Flow Rate Vent Mode Vent Rate Mechanical Rate PEEP Pressure Support Vent Sodium Potassium Chloride Carbon Dioxide Anion Gap BUN Creatinine Creat Clearance w eGFR Random Glucose Hemoglobin A1c % 7.4 H Lactic Acid Calcium Phosphorus Magnesium Ferritin Cancelled Total Bilirubin AST ALT Alkaline Phosphatase Creatine Kinase Troponin I Total Protein Albumin Vitamin B12 Cancelled Serum Folate Cancelled TSH Cancelled Free T4 Cancelled Urine Color Urine Appearance Urine pH Ur Specific [place] Urine Protein Urine Glucose (UA) Urine Ketones Urine Blood Urine Nitrite Urine Bilirubin Urine Urobilinogen Ur Leukocyte Esterase Urine WBC (Auto) Urine RBC (Auto) Ur Epithelial Cells Hyaline Casts Urine Mucus 03/25/18 09:00 WBC RBC Hgb Hct MCV MCH MCHC RDW Plt Count MPV Absolute Neuts (auto) Neutrophils % Neutrophils % (Manual) Band Neutrophils % Lymphocytes % Lymphocytes % (Manual) Monocytes % Monocytes % (Manual) Eosinophils % Eosinophils % (Manual) Basophils % Basophils % (Manual) Myelocytes % (Man) Promyelocytes % (Man) Blast Cells % (Manual) Nucleated RBC % Metamyelocytes Hypochromia Platelet Estimate Polychromasia Poikilocytosis Anisocytosis Microcytosis Macrocytosis Stomatocytes PT with INR INR PTT (Actin FS) Fibrinogen Anticoagulation Therapy Puncture Site ABG pH ABG pCO2 at Pt Temp ABG pO2 at Pt Temp ABG HCO3 ABG O2 Sat (Measured) ABG O2 Content ABG Base Excess Pardeep Test Carboxyhemoglobin Methemoglobin O2 Delivery Device Oxygen Flow Rate Vent Mode Vent Rate Mechanical Rate PEEP Pressure Support Vent Sodium Cancelled Potassium Cancelled Chloride Cancelled Carbon Dioxide Cancelled Anion Gap Cancelled BUN Cancelled Creatinine Cancelled Creat Clearance w eGFR Cancelled Random Glucose Cancelled Hemoglobin A1c % Lactic Acid Calcium Cancelled Phosphorus Magnesium Ferritin Total Bilirubin Cancelled AST Cancelled ALT Cancelled Alkaline Phosphatase Cancelled Creatine Kinase Cancelled Troponin I Cancelled Total Protein Cancelled Albumin Cancelled Vitamin B12 Serum Folate TSH Free T4 Urine Color Urine Appearance Urine pH Ur Specific [place] Urine Protein Urine Glucose (UA) Urine Ketones Urine Blood Urine Nitrite Urine Bilirubin Urine Urobilinogen Ur Leukocyte Esterase Urine WBC (Auto) Urine RBC (Auto) Ur Epithelial Cells Hyaline Casts Urine Mucus ASSESSMENT AND PLAN: Acute on Chronic Hypoxic Respiratory Failure r/o UTI r/o Colitis Severe Sepsis Atrial Fibrillation with RVR Acute COPD Exacerbation CAD LV Diastolic Dysfunction Pulmonary HTN Thrombocytopenia Anemia - broad spectrum antibiotics per ID - f/u cultures - stool for C diff - rate control - continue anticoagulation - Taper Solumedrol - inhaled bronchodilators standing and PRN - Trilogy / BiPAP to assist in work of breathing - O2 to keep SpO2 >90% - monitor CBC, coags - aspiration precautions - 4W / [address] Donovan
[2018-03-25 12:42] LABS: ACANTHOCYTES 0; ANISOCYTOSIS 0; HELMET CELLS 0; HOWELL-JOLLY BODIES 0; MACROCYTOSIS 0; OVALOCYTE 0; PLATELET ESTIMATE DECREASED; ROULEAU 0; SICKELED CELLS 0; TARGET CELLS 0; TEAR DROP CELLS 0; TOXIC GRANULATION 0
[2018-03-25] MEDS: APIXABAN 5 MG TABLET PO SCH ×2 (13:00→21:54)
--- NOTE | 2018-03-25 13:23 | PN ---
Physical Exam: SUBJECTIVE: Patient seen and examined at bedside. pt off bipap, breathing comfortably on venti mask. uses trilogy at [place]. denies diarrhea, sob, cp OBJECTIVE: Vital Signs Period Temp Pulse Resp BP Sys/Morgan Pulse Ox Last 24 Hr 97.7 F-99.3 F 77-118 17-28 89-128/59-81 94-100 GENERAL: alert oriented x3, NAD, venti mask HEENT:NCAT, PERRL, sclera anicteric, conjunctiva clear. No lid lag. mm-dry NECK: Normal range of motion, supple without lymphadenopathy, JVD, or masses. LUNGS: mild wheezing b/l HEART: RRR, normal S1 and S2 without murmur, rub or gallop. ABDOMEN: Soft, NTND, normoactive bowel sounds, no guarding, no rebound, no masses. MUSCULOSKELETAL: Normal range of motion at all joints. No bony deformities or tenderness. No CVA tenderness. UPPER EXTREMITIES: 2+ pulses, warm, well-perfused. No cyanosis. No clubbing. Cap refill <2 seconds. No peripheral edema. LOWER EXTREMITIES: 2+ pulses, warm, well-perfused. No calf tenderness. No peripheral edema. NEUROLOGICAL: alert oriented x3, sensation/strength grossly intact PSYCHIATRIC: Cooperative. Good eye contact. SKIN: Warm, dry, normal turgor, no rashes. multiple echymosis on UE b/l, no open wounds Laboratory Results - last 24 hr 03/24/18 03/24/18 03/24/18 11:37 13:13 15:30 WBC RBC Hgb Hct MCV MCH MCHC RDW Plt Count MPV Absolute Neuts (auto) Neutrophils % Neutrophils % (Manual) 91.8 H Band Neutrophils % 5.1 Lymphocytes % Lymphocytes % (Manual) 1.0 L D Monocytes % Monocytes % (Manual) 2 L Eosinophils % Eosinophils % (Manual) 0.0 Basophils % Basophils % (Manual) 0.0 Myelocytes % (Man) 0 D Promyelocytes % (Man) 0 Blast Cells % (Manual) 0 Nucleated RBC % Metamyelocytes 0 D Hypochromia 0 Platelet Estimate Decreased Polychromasia 0 Poikilocytosis 0 Anisocytosis 0 Microcytosis 0 Macrocytosis 0 Stomatocytes 1+ PT with INR INR PTT (Actin FS) Fibrinogen 668.0 H Anticoagulation Therapy Puncture Site ABG pH ABG pCO2 at Pt Temp ABG pO2 at Pt Temp ABG HCO3 ABG O2 Sat (Measured) ABG O2 Content ABG Base Excess Pardeep Test Carboxyhemoglobin Methemoglobin O2 Delivery Device Oxygen Flow Rate Vent Mode Vent Rate Mechanical Rate Pressure Support Vent Sodium Potassium Chloride Carbon Dioxide Anion Gap BUN Creatinine Creat Clearance w eGFR Random Glucose Hemoglobin A1c % Calcium Phosphorus Magnesium Ferritin Total Bilirubin AST ALT Alkaline Phosphatase Creatine Kinase Troponin I Total Protein Albumin Vitamin B12 Serum Folate TSH Free T4 Urine Color Yellow Urine Appearance Clear Urine pH 7.0 D Ur Specific Merrill 1.014 Urine Protein 2+ H Urine Glucose (UA) Negative Urine Ketones Negative Urine Blood 3+ H Urine Nitrite Negative Urine Bilirubin Negative Urine Urobilinogen Negative Ur Leukocyte Esterase Negative Urine WBC (Auto) 63 Urine RBC (Auto) 123 Ur Epithelial Cells Rare Hyaline Casts 1 Urine Mucus Rare 03/24/18 03/25/18 03/25/18 20:35 05:50 05:50 WBC RBC Hgb Hct MCV MCH MCHC RDW Plt Count MPV Absolute Neuts (auto) Neutrophils % Neutrophils % (Manual) Band Neutrophils % Lymphocytes % Lymphocytes % (Manual) Monocytes % Monocytes % (Manual) Eosinophils % Eosinophils % (Manual) Basophils % Basophils % (Manual) Myelocytes % (Man) Promyelocytes % (Man) Blast Cells % (Manual) Nucleated RBC % Metamyelocytes Hypochromia Platelet Estimate Polychromasia Poikilocytosis Anisocytosis Microcytosis Macrocytosis Stomatocytes PT with INR INR PTT (Actin FS) Fibrinogen Anticoagulation Therapy No Result Required. Puncture Site Right radial ABG pH 7.45 ABG pCO2 at Pt Temp 42.0 ABG pO2 at Pt Temp 77.1 L D ABG HCO3 28.4 H ABG O2 Sat (Measured) 95.6 ABG O2 Content 11.1 L ABG Base Excess 4.4 H Pardeep Test Positive Carboxyhemoglobin 1.6 Methemoglobin 0.4 O2 Delivery Device Bipap 15/7 Oxygen Flow Rate 30% Vent Mode No Result Required. Vent Rate 16 Mechanical Rate Bipap Pressure Support Vent 15/7 Sodium Potassium Chloride Carbon Dioxide Anion Gap BUN Creatinine Creat Clearance w eGFR Random Glucose Hemoglobin A1c % Calcium Phosphorus Magnesium Ferritin Total Bilirubin AST ALT Alkaline Phosphatase Creatine Kinase Troponin I 0.23 H Total Protein Albumin Vitamin B12 Serum Folate TSH Free T4 Urine Color Urine Appearance Urine pH Ur Specific [place]ill Urine Protein Urine Glucose (UA) Urine Ketones Urine Blood Urine Nitrite Urine Bilirubin Urine Urobilinogen Ur Leukocyte Esterase Urine WBC (Auto) Urine RBC (Auto) Ur Epithelial Cells Hyaline Casts Urine Mucus 03/25/18 03/25/18 03/25/18 09:00 09:00 09:00 WBC 7.7 RBC 3.57 L Hgb 10.5 L Hct 32.7 L MCV 91.7 MCH 29.5 MCHC 32.1 RDW 14.5 Plt Count 72 L MPV 9.2 Absolute Neuts (auto) 7.3 Neutrophils % 95.3 H Neutrophils % (Manual) Band Neutrophils % Lymphocytes % 1.4 L D Lymphocytes % (Manual) Monocytes % 2.8 L Monocytes % (Manual) Eosinophils % 0.0 D Eosinophils % (Manual) Basophils % 0.5 Basophils % (Manual) Myelocytes % (Man) Promyelocytes % (Man) Blast Cells % (Manual) Nucleated RBC % 0 Metamyelocytes Hypochromia Platelet Estimate Polychromasia Poikilocytosis Anisocytosis Microcytosis Macrocytosis Stomatocytes PT with INR 15.60 H INR 1.32 H PTT (Actin FS) Cancelled 35.3 Fibrinogen Anticoagulation Therapy Puncture Site ABG pH ABG pCO2 at Pt Temp ABG pO2 at Pt Temp ABG HCO3 ABG O2 Sat (Measured) ABG O2 Content ABG Base Excess Pardeep Test Carboxyhemoglobin Methemoglobin O2 Delivery Device Oxygen Flow Rate Vent Mode Vent Rate Mechanical Rate Pressure Support Vent Sodium Potassium Chloride Carbon Dioxide Anion Gap BUN Creatinine Creat Clearance w eGFR Random Glucose Hemoglobin A1c % Calcium Phosphorus Magnesium Ferritin Total Bilirubin AST ALT Alkaline Phosphatase Creatine Kinase Troponin I Total Protein Albumin Vitamin B12 Serum Folate TSH Free T4 Urine Color Urine Appearance Urine pH Ur Specific [place] Urine Protein Urine Glucose (UA) Urine Ketones Urine Blood Urine Nitrite Urine Bilirubin Urine Urobilinogen Ur Leukocyte Esterase Urine WBC (Auto) Urine RBC (Auto) Ur Epithelial Cells Hyaline Casts Urine Mucus 03/25/18 03/25/18 03/25/18 09:00 09:00 09:00 WBC RBC Hgb Hct MCV MCH MCHC RDW Plt Count MPV Absolute Neuts (auto) Neutrophils % Neutrophils % (Manual) Band Neutrophils % Lymphocytes % Lymphocytes % (Manual) Monocytes % Monocytes % (Manual) Eosinophils % Eosinophils % (Manual) Basophils % Basophils % (Manual) Myelocytes % (Man) Promyelocytes % (Man) Blast Cells % (Manual) Nucleated RBC % Metamyelocytes Hypochromia Platelet Estimate Polychromasia Poikilocytosis Anisocytosis Microcytosis Macrocytosis Stomatocytes PT with INR INR PTT (Actin FS) Fibrinogen Anticoagulation Therapy Puncture Site ABG pH ABG pCO2 at Pt Temp ABG pO2 at Pt Temp ABG HCO3 ABG O2 Sat (Measured) ABG O2 Content ABG Base Excess Pardeep Test Carboxyhemoglobin Methemoglobin O2 Delivery Device Oxygen Flow Rate Vent Mode Vent Rate Mechanical Rate Pressure Support Vent Sodium 148 H Potassium 4.0 Chloride 109 H Carbon Dioxide 29 Anion Gap 10 BUN 23 H Creatinine 0.6 Creat Clearance w eGFR > 60 Random Glucose 156 H Hemoglobin A1c % Calcium 7.7 L Phosphorus 1.8 L Magnesium 2.5 H Ferritin 339.5 Cancelled Total Bilirubin 0.5 AST 18 ALT 26 Alkaline Phosphatase 76 Creatine Kinase 105 Troponin I 0.24 H Cancelled Total Protein 5.2 L Albumin 2.1 L Vitamin B12 1385 H Serum Folate 19 H Cancelled TSH 0.24 L D Cancelled Free T4 1.02 Cancelled Urine Color Urine Appearance Urine pH Ur Specific [place] Urine Protein Urine Glucose (UA) Urine Ketones Urine Blood Urine Nitrite Urine Bilirubin Urine Urobilinogen Ur Leukocyte Esterase Urine WBC (Auto) Urine RBC (Auto) Ur Epithelial Cells Hyaline Casts Urine Mucus 03/25/18 03/25/18 03/25/18 09:00 09:00 09:00 WBC RBC Hgb Hct MCV MCH MCHC RDW Plt Count MPV Absolute Neuts (auto) Neutrophils % Neutrophils % (Manual) Band Neutrophils % Lymphocytes % Lymphocytes % (Manual) Monocytes % Monocytes % (Manual) Eosinophils % Eosinophils % (Manual) Basophils % Basophils % (Manual) Myelocytes % (Man) Promyelocytes % (Man) Blast Cells % (Manual) Nucleated RBC % Metamyelocytes Hypochromia Platelet Estimate Polychromasia Poikilocytosis Anisocytosis Microcytosis Macrocytosis Stomatocytes PT with INR INR PTT (Actin FS) Fibrinogen Anticoagulation Therapy Puncture Site ABG pH ABG pCO2 at Pt Temp ABG pO2 at Pt Temp ABG HCO3 ABG O2 Sat (Measured) ABG O2 Content ABG Base Excess Pardeep Test Carboxyhemoglobin Methemoglobin O2 Delivery Device Oxygen Flow Rate Vent Mode Vent Rate Mechanical Rate Pressure Support Vent Sodium Cancelled Potassium Cancelled Chloride Cancelled Carbon Dioxide Cancelled Anion Gap Cancelled BUN Cancelled Creatinine Cancelled Creat Clearance w eGFR Cancelled Random Glucose Cancelled Hemoglobin A1c % 7.4 H Calcium Cancelled Phosphorus Magnesium Ferritin Total Bilirubin Cancelled AST Cancelled ALT Cancelled Alkaline Phosphatase Cancelled Creatine Kinase Cancelled Troponin I Cancelled Total Protein Cancelled Albumin Cancelled Vitamin B12 Cancelled Serum Folate TSH Free T4 Urine Color Urine Appearance Urine pH Ur Specific [place] Urine Protein Urine Glucose (UA) Urine Ketones Urine Blood Urine Nitrite Urine Bilirubin Urine Urobilinogen Ur Leukocyte Esterase Urine WBC (Auto) Urine RBC (Auto) Ur Epithelial Cells Hyaline Casts Urine Mucus Active Medications Generic Name Dose Route Start Last Admin Trade Name Freq PRN Reason Stop Dose Admin Acetaminophen 1,000 mg 03/24/18 16:39 Ofirmev Injection - IVPB Q6H PRN PAIN OR FEVER Albuterol Sulfate 1 amp 03/24/18 22:55 03/25/18 11:15 Ventolin 0.083% Nebulizer Soln - NEB 1 amp RQID TA Administration Apixaban 5 mg 03/25/18 12:15 Eliquis - PO BID TA Arformoterol Tartrate 1 amp 03/24/18 22:00 03/25/18 10:10 Brovana (Restricted To Pulmonology/Resp) - NEB 1 amp BID TA Administration Budesonide/Formoterol Fumarate 2 puff 03/24/18 22:00 03/25/18 10:32 Symbicort 160/4.5mcg - IH 2 puff BID TA Administration Chlorhexidine Gluconate 1 applic 03/25/18 22:00 Hibiclens For Decolonization - TP HS TA Diltiazem HCl 10 mg 03/24/18 16:54 Cardizem Injection - IVPUSH Q4H PRN TACHYCARDIA Diltiazem HCl 120 mg 03/24/18 22:00 03/25/18 10:30 Cardizem Cd - PO 120 mg BID TA Administration Sodium Chloride 1,000 mls @ 125 mls/hr 03/24/18 15:30 03/24/18 15:40 Normal Saline - IV 125 mls/hr ASDIR TA Administration Cefepime HCl 2 gm/ Dextrose 100 mls @ 200 mls/hr 03/25/18 06:15 03/25/18 06: 17 IVPB 200 mls/hr TID TA Administration Protocol Vancomycin HCl 1,000 mg in 250 mls @ 166.667 mls/hr 03/25/18 09:00 03/25/18 09:32 Vancomycin (Pre-Docked) IVPB 166.667 mls/hr BID@0900,2100 [facility] Administration Protocol Methylprednisolone Sodium Succinate 60 mg 03/24/18 15:45 03/25/18 10:29 Solu-Medrol - IVPUSH 60 mg Q8H-IV TA Administration Mupirocin 1 applic 03/25/18 10:00 03/25/18 10:32 Bactroban Ointment (For Decolonization) - NS 03/30/18 09:59 1 applic BID TA Administration ASSESSMENT/PLAN: 67 yo M w/ PMH of recently diagnosed atrial fibrillation (on eliquis), chronic hypoxic respiratory failure/COPD (3L of a home oxygen intubated 1x ), ILD, pulmonary HTN, HTN, HLD, CHF? (echo 03/11/18 showed EF 55-60), [place], CAD, GERD, emphysema, and panic attacks, who was BIBA from [facility] for fever and respiratory distress. #Neuro improved, alert oriented x3 #Cardiac - Atrial Fibrillation with RVR -HR improved currently ctl 70-80s, MAP 70s -IV cardizem 10mg prn for HR >120 -IVF 125cc in setting of sepsis, monitor lungs given hx CHF? (echo 03/11/18 showed EF 55-60) -BP responded to 500cc boluses x3 -restart eliquis, cardio recs appreciated -echo r/o endocarditis in setting of sepsis w/ bcx 03/24 growing gram pos cocci , MRSA? has had MRSA in the past and recently tx [facility] for endocarditis #Resp - Acute COPD Exacerbation -Trilogy / BiPAP to assist in work of breathing -inhaled bronchodilators standing and PRN -taper solumedrol 60mg q8h to 40mg q8h -O2 to keep SpO2 >90% -aspiration precautions #GI -diarrhea in setting of fever and recent hospitalization -send stool for C diff #Infectious -sepsis 2/2 bacteremia/endocarditis, bcx 03/24 growing gram pos cocci, MRSA? has had MRSA in the past and recently tx [facility] for endocarditis -echo -Will repeat Bcx -Urine cx neg -ID consult -c/w vanc/cefepime -received zosyn in ED -f/u stool for C diff, in setting of diarrhea yesterday. none today #Heme -anemia likely 2/2 iron def -anemia w/u per primary team -monitor CBC, coags -fibrinogen 668 -restart eliquis, cardio recs appreciated #FEN -IVF NS 125cc -replete prn -sodium ctl diet ppx -restart eliquis, cardio recs appreciated #Dispo: -pt is stable and ready for [facility]. We will sign off. Further care per primary team/PCP. Thank you for this consult opportunity Visit type - Emergency Visit Emergency Visit: Yes ED Registration Date: 03/24/18 Care time: The patient presented to the Emergency Department on the above date and was hospitalized for further evaluation of their emergent condition. - New Patient This patient is new to me today: Yes Date on this admission: 03/25/18 - Critical Care Critical Care patient: Yes Total Critical Care Time (in minutes): 40 Critical Care Statement: The care of this patient involved high complexity decision making to prevent further life threatening deterioration of the patient 's condition and/or to evaluate & treat vital organ system(s) failure or risk of failure.
[2018-03-25] MEDS ORDERED: NAPH,MB-DB/K PH,MBDB POWDER PACKET PO ONE (13:45)
[2018-03-25] MEDS ORDERED: PT OWN MED DRAWER 7, Y5N ONE ×2 (15:58→21:49)
[2018-03-25] MEDS: SODIUM CHLORIDE 1,000 ML IV SCH ×2 (16:01→23:53)
--- NOTE | 2018-03-25 16:03 | ECHO ---
Name: CARLOS MORE Exam:Adult Echocardiogram Study Date: 03/25/2018 01:51 PM Age: 67 yrs Reason For Study: Endocarditis Height: 70 in Weight: 138 lb BSA: 1.8 m2 BP: 118/62 mmHg MMode/2D Measurements & Calculations IVSd: 0.80 cm Ao root diam: 2.7 cm LVIDd: 4.3 cm LVIDs: 3.0 cm LVPWd: 0.89 cm EDV(Teich): 82.8 ml ESV(Teich): 35.2 ml Doppler Measurements & Calculations MR max david: 478.8 cm/sec MR max P.7 mmHg Procedure A complete two-dimensional transthoracic echocardiogram was performed (2D, M-mode, Doppler and color flow Doppler). Left Ventricle The left ventricular size, thickness and function are normal. The left ventricular ejection fraction is normal. Ejection Fraction = 55-60%. The left ventricular wall motion is normal. Right Ventricle The right ventricle is normal in size and function. Atria Normal left and right atrial size and function. Mitral Valve There is mild mitral regurgitation. Tricuspid Valve No tricuspid regurgitation. There was insufficient TR detected to calculate RV systolic pressure. Aortic Valve No hemodynamically significant valvular aortic stenosis. No aortic regurgitation is present. Pulmonic Valve The pulmonic valve is not well visualized. There is no pulmonic valvular regurgitation. Great Vessels The aortic root is normal size. Pericardium/Pleura There is no pericardial effusion. Interpretation Summary The left ventricular size, thickness and function are normal The right ventricle is normal in size and function. There is mild mitral regurgitation. MD Sage Hensley 03/25/2018 04:02 PM
[2018-03-25] MEDS ORDERED: methylPREDNISolone NA SUCC 40 MG/1 ML VIAL IVPUSH SCH (18:00)
[2018-03-25] MEDS: INSULIN SLIDING SCALE (NOVOLOG) 1 VIAL SQ SCH ×2 (18:53→21:46)
[2018-03-25] MEDS ORDERED: PIPERACILLIN/TAZOB 4.5 GM 4.5 GM in DEXTROSE 5%-WATER 100 ML IVPB SCH (21:00)
[2018-03-25] MEDS ORDERED: CHLORHEXIDINE GLUCONATE 4% CLEANSER FOR DECOLONIZATION TP SCH (22:00)
[2018-03-25] MEDS ORDERED: ACETAMINOPHEN 1000 MG/100 ML VIAL (NON FORMULARY) IVPB PRN (22:23)
[2018-03-26] MEDS: CEFEPIME 2 GM in DEXTROSE 5%-WATER - 100 ML IVPB SCH ×2 (01:45→10:17)
[2018-03-26] MEDS: methylPREDNISolone NA SUCC 40 MG/1 ML VIAL IVPUSH SCH ×3 (02:00→17:31)
[2018-03-26 06:06] LABS: SERUM IRON SATURATION 5 % (15-55); TOTAL IRON BINDING CAPACITY 235 ug/dL (250-450); UIBC 224 ug/dL (111-343)
[2018-03-26] MEDS: INSULIN SLIDING SCALE (NOVOLOG) 1 VIAL SQ SCH ×4 (06:49→22:00)
[2018-03-26 07:13] LABS: BASO % 0.1 % (0-2.0); HEMATOCRIT 29.5 % (35.4-49); HEMOGLOBIN 9.5 GM/dL (11.7-16.9); LYMPH % 2.4 % (8-40); MCH 29.5 pg (25.7-33.7); MCHC 32.1 g/dl (32.0-35.9); MEAN CELL VOLUME 91.8 fl (80-96); MEAN PLT VOLUME 9.8 fl (7.5-11.1); MONO % 3.7 % (3.8-10.2); NEUT % 93.8 % (42.8-82.8); PLATELET COUNT 61 K/MM3 (134-434); RBC 3.21 M/mm3 (4.00-5.60); RDW 14.8 % (11.9-15.9); WHITE BLOOD COUNT 5.5 K/mm3 (4.0-10.0)
[2018-03-26 07:32] LABS: INR 1.37 (0.83-1.09); PROTHROMBIN TIME (PATIENT) 16.2 SEC (9.7-13.0)
[2018-03-26 07:35] LABS: ACTIVATED PTT 30.6 SECONDS (25.2-36.5)
[2018-03-26 08:16] LABS: ALK PHOS 64 U/L (45-117); ANION GAP 9 MMOL/L (8-16); BILIRUBIN,TOTAL 0.3 mg/dL (0.2-1); BLOOD UREA NITROGEN 24 mg/dL (7-18); CALCIUM 7.6 mg/dL (8.5-10.1); CHLORIDE 110 mmol/L (98-107); CO2 27 mmol/L (21-32); CREATININE 0.5 mg/dL (0.55-1.3); GLUCOSE,RANDOM 140 mg/dL (74-106); POTASSIUM 4.2 mmol/L (3.5-5.1); SGOT/AST 15 U/L (15-37); SGPT/ALT 27 U/L (13-61); SODIUM 145 mmol/L (136-145); TOT PROT 4.8 g/dl (6.4-8.2)
--- NOTE | 2018-03-26 08:17 | PN ---
Progress Note, Physician History of Present Illness: FEELS BETTER - Current Medication List Current Medications: Active Medications Acetaminophen (Ofirmev Injection -) 1,000 mg IVPB Q6H PRN PRN Reason: FEVER Albuterol Sulfate (Ventolin 0.083% Nebulizer Soln -) 1 amp NEB RQID TA Apixaban (Eliquis -) 5 mg PO BID TA Arformoterol Tartrate (Brovana (Restricted To Pulmonology/Resp) -) 1 amp NEB RBID TA Budesonide/Formoterol Fumarate (Symbicort 160/4.5mcg -) 2 puff IH BID TA Diltiazem HCl (Cardizem Cd -) 120 mg PO BID TA Diltiazem HCl (Cardizem Injection -) 10 mg IVPUSH Q4H PRN PRN Reason: TACHYCARDIA Cefepime HCl 2 gm/ Dextrose 100 mls @ 200 mls/hr IVPB Q8H-IV TA; Protocol Last Admin: 03/26/18 01:45 Dose: 200 mls/hr Sodium Chloride (Normal Saline -) 1,000 mls @ 125 mls/hr IV ASDIR [facility] Last Admin: 03/25/18 23:53 Dose: 125 mls/hr Vancomycin HCl (Vancomycin (Pre-Docked)) 1,000 mg in 250 mls @ 166.667 mls/hr IVPB BID@0900,2100 [facility]; Protocol Insulin Aspart (Novolog Vial Sliding Scale -) 1 vial SQ ACHS [facility]; Protocol Last Admin: 03/26/18 06:49 Dose: 2 units Methylprednisolone Sodium Succinate (Solu-Medrol -) 40 mg IVPUSH Q8H-IV [facility] Last Admin: 03/26/18 02:00 Dose: 40 mg - Objective Vital Signs: Vital Signs Temperature 97.4 F L 03/26/18 02:00 Pulse Rate 70 03/26/18 06:00 Respiratory Rate 18 03/26/18 06:00 Blood Pressure 112/60 03/26/18 06:00 O2 Sat by Pulse Oximetry (%) 98 03/25/18 21:00 Cardiovascular: Yes: Regular Rate and Rhythm Respiratory: Yes: Diminished, On Nasal O2 Gastrointestinal: Yes: Normal Bowel Sounds, Soft Edema: No Labs: CBC, BMP 03/26/18 05:30 03/26/18 05:30 INR, PTT INR 1.32 (0.83-1.09) H 03/25/18 09:00 Fibrinogen 668.0 mg/dL (238-498) H 03/24/18 15:30 Assessment/Plan - Problems (1) Diarrhea Assessment/Plan: -Seen by ID -Stool for cdiff pending -IV Vanco -gentle IVF Code(s): R19.7 - DIARRHEA, UNSPECIFIED (2) Sepsis Assessment/Plan: -Lactic acid normal -febrile at the rehab, afebrile at the moment -/ Microbiology 03/24/18 13:13 Urine - Urine - Catheterized Urine Culture - Final NO GROWTH OBTAINED 03/24/18 11:53 Blood - Peripheral Venous Blood Culture - Preliminary Pending Organism Pending Organism#2 03/24/18 11:37 Blood - Peripheral Venous Blood Culture - Preliminary Pending Organism Pending Organism#2 -ID on board -CXR unremarkable Code(s): A41.9 - SEPSIS, UNSPECIFIED ORGANISM (3) Acute and chronic respiratory failure Assessment/Plan: -Seen by pulmonary--ON NC THIS AM -BIPAP, to keep SpO2 > 90% -Solumedrol 60 Q8H -Bronchodilators -IV abx Code(s): J96.20 - ACUTE AND CHR RESP FAILURE, UNSP W HYPOXIA OR HYPERCAPNIA Qualifiers: Respiratory failure complication: hypoxia and hypercapnia Qualified Code(s) : J96.21 - Acute and chronic respiratory failure with hypoxia; J96.22 - Acute and chronic respiratory failure with hypercapnia (4) COPD exacerbation Assessment/Plan: -Pulmonary on board -BIPAP -Bronchodilators -Solumedrol 60 mg Q8H -CXR unremarkable Code(s): J44.1 - CHRONIC OBSTRUCTIVE PULMONARY DISEASE W (ACUTE) EXACERBATION (5) Paroxysmal atrial fibrillation with rapid ventricular response Assessment/Plan: -Received Diltiazem IVP upon arrive -converted to SR -Repeat EKG NOTED -TELE -On [employer] monitor HGB Code(s): I48.0 - PAROXYSMAL ATRIAL FIBRILLATION (6) Elevated troponin Assessment/Plan: -likely 2/2 to demand ischemia Troponin, BNP 03/25/18 03/25/18 03/25/18 09:00 09:00 09:00 Troponin I 0.24 H Cancelled Cancelled 03/25/18 13:40 Troponin I 0.18 H Code(s): R74.8 - ABNORMAL LEVELS OF OTHER SERUM ENZYMES (7) Hypoalbuminemia Assessment/Plan: -due to decreased PO intake -start [employer] and order RD consult Code(s): E88.09 - OTH DISORDERS OF PLASMA-PROTEIN METABOLISM, NEC (8) Protein calorie malnutrition Assessment/Plan: -due to decreased PO intake -start [employer] and order RD consult Code(s): E46 - UNSPECIFIED PROTEIN-CALORIE MALNUTRITION (9) Anemia Assessment/Plan: -previously iron deficiency -recheck B12, Thyroid/iron profile and folic acid -check stool OB -monitor trend Code(s): D64.9 - ANEMIA, UNSPECIFIED Qualifiers: Anemia type: unspecified type Qualified Code(s): D64.9 - Anemia, unspecified
[2018-03-26] MEDS ORDERED: VANCOMYCIN 1 GRAM (PRE-DOCKED) 1,000 MG/250 ML BAG IVPB SCH (09:00)
[2018-03-26] MEDS: APIXABAN 5 MG TABLET PO SCH ×2 (09:22→21:57)
[2018-03-26] MEDS: ARFORMOTEROL TARTRATE 15 MCG/2 ML VIAL NEB SCH ×2 (09:37→22:27)
[2018-03-26] MEDS: ALBUTEROL SO4 0.083% IH SOL 2.5 MG/3 ML VIAL.NEB. NEB SCH ×4 (09:37→20:38)
[2018-03-26] MEDS: BUDESONIDE/FORMETEROL FUMARATE 160/4.5 mcg INHALER IH SCH ×2 (10:17→22:01)
[2018-03-26 11:55] LABS: ACANTHOCYTES 0; ANISOCYTOSIS 0; HELMET CELLS 0; HOWELL-JOLLY BODIES 0; MACROCYTOSIS 0; OVALOCYTE 0; PLATELET ESTIMATE DECREASED; ROULEAU 0; SICKELED CELLS 0; TARGET CELLS 0; TEAR DROP CELLS 0; TOXIC GRANULATION 0
--- NOTE | 2018-03-26 13:10 | PN ---
Progress Note, Physician History of Present Illness: PULMONARY FEELING BETTER,LESS DYSPNEIC. BLOOD C+S + MRSA - Current Medication List Current Medications: Active Medications Acetaminophen (Ofirmev Injection -) 1,000 mg IVPB Q6H PRN PRN Reason: FEVER Albuterol Sulfate (Ventolin 0.083% Nebulizer Soln -) 1 amp NEB RQID [facility] Last Admin: 03/26/18 11:20 Dose: 1 amp Apixaban (Eliquis -) 5 mg PO BID [facility] Last Admin: 03/26/18 09:22 Dose: 5 mg Arformoterol Tartrate (Brovana (Restricted To Pulmonology/Resp) -) 1 amp NEB RBID [facility] Last Admin: 03/26/18 09:37 Dose: 1 amp Budesonide/Formoterol Fumarate (Symbicort 160/4.5mcg -) 2 puff IH BID [facility] Last Admin: 03/26/18 10:17 Dose: 2 inh Diltiazem HCl (Cardizem Cd -) 120 mg PO BID [facility] Last Admin: 03/26/18 09:22 Dose: 120 mg Diltiazem HCl (Cardizem Injection -) 10 mg IVPUSH Q4H PRN PRN Reason: TACHYCARDIA Cefepime HCl 2 gm/ Dextrose 100 mls @ 200 mls/hr IVPB Q8H-IV [facility]; Protocol Last Admin: 03/26/18 10:17 Dose: 200 mls/hr Sodium Chloride (Normal Saline -) 1,000 mls @ 125 mls/hr IV ASDIR [facility] Last Admin: 03/25/18 23:53 Dose: 125 mls/hr Vancomycin HCl (Vancomycin (Pre-Docked)) 1,000 mg in 250 mls @ 166.667 mls/hr IVPB BID@0900,2100 [facility]; Protocol Last Admin: 03/26/18 09:22 Dose: 166.667 mls/hr Insulin Aspart (Novolog Vial Sliding Scale -) 1 vial SQ ACHS [facility]; Protocol Last Admin: 03/26/18 12:41 Dose: 6 units Methylprednisolone Sodium Succinate (Solu-Medrol -) 40 mg IVPUSH Q8H-IV [facility] Last Admin: 03/26/18 09:22 Dose: 40 mg - Objective Vital Signs: Vital Signs Temperature 98 F 03/26/18 11:00 Pulse Rate 74 03/26/18 11:00 Respiratory Rate 18 03/26/18 11:00 Blood Pressure 116/58 L 03/26/18 11:00 O2 Sat by Pulse Oximetry (%) 93 L 03/26/18 11:00 Constitutional: Yes: Well Nourished, Calm Eyes: Yes: WNL HENT: Yes: WNL Neck: Yes: WNL Cardiovascular: Yes: Pulse Irregular, S1, S2 Respiratory: Yes: Diminished Gastrointestinal: Yes: Normal Bowel Sounds, Soft Extremities: Yes: WNL Edema: No Labs: CBC, BMP 03/26/18 05:30 03/26/18 05:30 INR, PTT INR 1.37 (0.83-1.09) H 03/26/18 05:30 Fibrinogen 668.0 mg/dL (238-498) H 03/24/18 15:30 Problem List - Problems (1) MRSA (methicillin resistant Staphylococcus aureus) infection Code(s): A49.02 - METHICILLIN RESIS STAPH INFECTION, UNSP SITE (2) Diarrhea Code(s): R19.7 - DIARRHEA, UNSPECIFIED (3) Sepsis Code(s): A41.9 - SEPSIS, UNSPECIFIED ORGANISM (4) Acute and chronic respiratory failure Code(s): J96.20 - ACUTE AND CHR RESP FAILURE, UNSP W HYPOXIA OR HYPERCAPNIA Qualifiers: Respiratory failure complication: hypoxia and hypercapnia Qualified Code(s) : J96.21 - Acute and chronic respiratory failure with hypoxia; J96.22 - Acute and chronic respiratory failure with hypercapnia (5) Acute and chronic respiratory failure with hypercapnia Code(s): J96.22 - ACUTE AND CHRONIC RESPIRATORY FAILURE WITH HYPERCAPNIA (6) Arteriosclerotic heart disease (ASHD) Code(s): I25.10 - ATHSCL HEART DISEASE OF [place] CORONARY ARTERY W/O ANG PCTRS (7) COPD exacerbation Code(s): J44.1 - CHRONIC OBSTRUCTIVE PULMONARY DISEASE W (ACUTE) EXACERBATION (8) Pulmonary hypertension Code(s): I27.20 - PULMONARY HYPERTENSION, UNSPECIFIED Assessment/Plan ASSESSMENT AND PLAN: Acute on Chronic Hypoxic Respiratory Failure Severe Sepsis MRAS bacteremia Atrial Fibrillation with RVR Acute COPD Exacerbation CAD LV Diastolic Dysfunction Pulmonary HTN Thrombocytopenia Anemia - antibiotics per ID - rate control - anticoagulation - Solumedrol - inhaled bronchodilators standing and PRN - Trilogy / BiPAP to assist in work of breathing - O2 to keep SpO2 >90% - monitor CBC, coags - aspiration precautions DR ARIAS
--- NOTE | 2018-03-26 13:20 | PN ---
Progress Note (short form) - Note Progress Note: clinically improved alert Vital Signs Period Temp Pulse Resp BP Sys/Morgan Pulse Ox Last 24 Hr 97.4 F-98.8 F 69-83 15-20 102-123/58-91 93-98 on nasal canulla no conjuunctival hemorrhages cor-rrr lungs decreased bs at bases abd soft, nt ext no edema multiple ecchymoses on his arms, no skin breakdown CBC, BMP 03/26/18 05:30 03/26/18 05:30 Microbiology 03/24/18 11:53 Blood - Peripheral Venous Blood Culture - Preliminary Presumptive Mrsa (Pbp2a Pos) 03/24/18 11:37 Blood - Peripheral Venous Blood Culture - Preliminary Presumptive Mrsa (Pbp2a Pos) 03/25/18 12:20 Blood - Peripheral Venous Blood Culture - Preliminary Pending Organism 03/25/18 12:05 Blood - Peripheral Venous Blood Culture - Preliminary Pending Organism 03/24/18 13:13 Urine - Urine - Catheterized Urine Culture - Final NO GROWTH OBTAINED cxray no infiltrate Current Medications Acetaminophen (Ofirmev Injection -) 1,000 mg IVPB Q6H PRN PRN Reason: FEVER Albuterol Sulfate (Ventolin 0.083% Nebulizer Soln -) 1 amp NEB RQID [facility] Last Admin: 03/26/18 11:20 Dose: 1 amp Apixaban (Eliquis -) 5 mg PO BID [facility] Last Admin: 03/26/18 09:22 Dose: 5 mg Arformoterol Tartrate (Brovana (Restricted To Pulmonology/Resp) -) 1 amp NEB RBID [facility] Last Admin: 03/26/18 09:37 Dose: 1 amp Budesonide/Formoterol Fumarate (Symbicort 160/4.5mcg -) 2 puff IH BID [facility] Last Admin: 03/26/18 10:17 Dose: 2 inh Diltiazem HCl (Cardizem Cd -) 120 mg PO BID [facility] Last Admin: 03/26/18 09:22 Dose: 120 mg Diltiazem HCl (Cardizem Injection -) 10 mg IVPUSH Q4H PRN PRN Reason: TACHYCARDIA Sodium Chloride (Normal Saline -) 1,000 mls @ 125 mls/hr IV ASDIR [facility] Last Admin: 03/25/18 23:53 Dose: 125 mls/hr Daptomycin 500 mg/ Sodium (Chloride) 50 mls @ 50 mls/hr IVPB DAILY TA; Protocol Insulin Aspart (Novolog Vial Sliding Scale -) 1 vial SQ ACHS TA; Protocol Last Admin: 03/26/18 12:41 Dose: 6 units Methylprednisolone Sodium Succinate (Solu-Medrol -) 40 mg IVPUSH Q8H-IV TA Last Admin: 03/26/18 09:22 Dose: 40 mg a/p MRSA bacteremia- ?source concerning for endocarditis high grade bacteremia no clear source no back pain, no infiltrate on cxray will switch to daptomycin repeat blood cultures in am repeat transthoracic echo thursday will ask cardiology to evaluate as well clinically improved esr/crp persistent thrombocytopenia- most likely secondary to sepsis endstage copd consider steroid taper Problem List - Problems (1) Sepsis Code(s): A41.9 - SEPSIS, UNSPECIFIED ORGANISM (2) Fever Code(s): R50.9 - FEVER, UNSPECIFIED Qualifiers: Qualified Code(s): R50.9 - Fever, unspecified (3) Acute and chronic respiratory failure Code(s): J96.20 - ACUTE AND CHR RESP FAILURE, UNSP W HYPOXIA OR HYPERCAPNIA Qualifiers: Qualified Code(s): J96.21 - Acute and chronic respiratory failure with hypoxia; J96.22 - Acute and chronic respiratory failure with hypercapnia (4) Paroxysmal A-fib Code(s): I48.0 - PAROXYSMAL ATRIAL FIBRILLATION
[2018-03-26] MEDS: ALPRAZolam 0.25 MG TABLET PO PRN (14:45)
--- NOTE | 2018-03-26 14:48 | CON.CARD ---
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 History of Recent Travel: No Home Medications - Allergies Allergies/Adverse Reactions: Allergies Allergy/AdvReac Type Severity Reaction Status Date / Time moxifloxacin HCl Allergy Severe Verified 03/10/18 02:58 [From Avelox] aclidinium bromide Allergy Verified 03/10/18 02:58 [From Tudorza Pressair] shellfish derived Allergy Verified 03/10/18 02:58 - Home Medications Home Medications: Ambulatory Orders Albuterol Sulfate Inhaler - [Ventolin HFA Inhaler -] 2 inh PO Q4H 02/08/14 Arformoterol Tartrate [Brovana] 15 mcg IH BID 02/08/14 Tamsulosin HCl [Flomax -] 0.4 mg PO DAILY 02/08/14 Tiotropium [place] [Spiriva] 1 inh PO DAILY 02/08/14 Beclomethasone Dipropionate [Qvar] 8.7 gm IH DAILY 01/09/16 Polyethylene Glycol 3350 [Miralax 119 gm Btl -] 17 gm PO DAILY PRN #1 bottle 10/15 Ferrous Sulfate [Feosol] 325 mg PO BID ud 05/06/17 Furosemide [Lasix -] 20 mg PO DAILY tablet 05/06/17 Acetaminophen [Tylenol .Regular Strength -] 650 mg PO Q4H PRN tablet 02/20/18 Magnesium Hydrox 2400MG/30Ml [Milk of Magnesia -] 30 ml PO DAILY PRN #1 bottle 02/20/18 Prednisone 10 mg PO ASDIR #65 tablet 02/20/18 Sennosides [Senna -] 2 tab PO HS PRN #60 tablet 02/20/18 Albuterol 0.083% Nebulizer [place] [Ventolin 0.083% Nebulizer Soln -] 1 neb NEB Q4H PRN #75 vial 03/06/18 Albuterol 2.5/Ipratropium 0.5 [Duoneb -] 1 amp NEB RQID amp 03/22/18 Alprazolam [Xanax] 0.25 mg PO Q6HPO #20 tablet MDD 4 03/22/18 Apixaban [Eliquis -] 5 mg PO BID tablet 03/22/18 Atorvastatin Ca [Lipitor] 10 mg PO HS tablet 03/22/18 Diltiazem Cd [Cardizem Cd -] 120 mg PO BID cap.cd.24h 03/22/18 Escitalopram Oxalate [Lexapro -] 10 mg PO DAILY tablet 03/22/18 predniSONE [Deltasone -] 30 mg PO BID tablet 03/22/18 Family Disease History - Family Disease History Family History: Denies Review of Systems - Review of Systems Constitutional: reports: Chills, Fever Neck: reports: No Symptoms Cardiovascular: reports: Shortness of Breath Respiratory: reports: Cough, SOB, Wheezing Gastrointestinal: reports: No Symptoms Genitourinary: reports: No Symptoms Musculoskeletal: reports: No Symptoms Integumentary: reports: No Symptoms Vital Signs: Vital Signs Temperature 98.2 F 03/26/18 14:10 Pulse Rate 72 03/26/18 14:10 Respiratory Rate 18 03/26/18 14:10 Blood Pressure 125/64 03/26/18 14:10 O2 Sat by Pulse Oximetry (%) 93 L 03/26/18 11:00 Constitutional: Yes: No Distress, Calm, Thin Neck: Yes: Supple Respiratory: Yes: Regular, Diminished, On Nasal O2 Gastrointestinal: Yes: Normal Bowel Sounds, Soft Cardiovascular: Yes: Regular Rate and Rhythm JVD: No Carotid Bruit: No Heart Sounds: Yes: S1, S2 Edema: No - Other Data Labs, Other Data: CBC, BMP 03/26/18 05:30 03/26/18 05:30 INR, PTT INR 1.37 (0.83-1.09) H 03/26/18 05:30 Fibrinogen 668.0 mg/dL (238-498) H 03/24/18 15:30 Troponin, BNP 03/25/18 13:40 Troponin I 0.18 H Troponin, BNP 03/25/18 13:40 Troponin I 0.18 H Afib @ 150 RBBB -> NSR @ 81 RBBB Ejection Fraction %: LVEF > or = 40 % Imaging - Results Chest X-ray: Report Reviewed (COPD, no infiltrates) Problem List - Problems (1) MRSA (methicillin resistant Staphylococcus aureus) infection Code(s): A49.02 - METHICILLIN RESIS STAPH INFECTION, UNSP SITE (2) Acute and chronic respiratory failure with hypercapnia Code(s): J96.22 - ACUTE AND CHRONIC RESPIRATORY FAILURE WITH HYPERCAPNIA (3) Arteriosclerotic heart disease (ASHD) Code(s): I25.10 - ATHSCL HEART DISEASE OF [place] CORONARY ARTERY W/O ANG PCTRS (4) COPD exacerbation Code(s): J44.1 - CHRONIC OBSTRUCTIVE PULMONARY DISEASE W (ACUTE) EXACERBATION (5) Diastolic dysfunction Code(s): I51.9 - HEART DISEASE, UNSPECIFIED (6) Hyperlipidemia Code(s): E78.5 - HYPERLIPIDEMIA, UNSPECIFIED Qualifiers: Hyperlipidemia type: pure hypercholesterolemia Qualified Code(s): E78.00 - Pure hypercholesterolemia, unspecified; E78.0 - Pure hypercholesterolemia (7) Paroxysmal atrial fibrillation with rapid ventricular response Code(s): I48.0 - PAROXYSMAL ATRIAL FIBRILLATION Assessment/Plan 1. MRSA bacteremia of unclear source r/o endocarditis 2. Paroxysmal atrial fibrillation now in sinus rhythm [id number] 3. Acute on Chronic Hypoxic and Hypercapneic Respiratory Failure 4. Acute exacerbation of advanced chronic obstructive pulmonary disease on home oxygen therapy with Pulmonary HTN 5. Atypical Mycobacterium 6. CAD non-obstructive coronary artery disease with demnd ischemia 7. Diastolic LV dysfunction with class 0-I NYHA classification LV failure, compensated/euvolemic 8. HTN 9. Hypercholesterolemia 10. RUL mass 11. Sick euthyroid syndrome 12. Thrombycytopenia referable to sepsis PLAN: 1. Daptomycin with f/u C&S for clearance, echo on Thursday, LUBNA if persistent bacteremia or fevers 2. Continue Cardizem CD 120 bid 3. Slow oral steroid taper, bronchodilators, O2 to keep SpO2 >90%, Trilogy / BiPAP to assist in work of breathing as per the pulmonary 4. Given elevated risk score, continue Eliquis 5 bid with monitor hemoglobin and Plt 5. Continue Lipitor 10 qhs and Lasix 20 qd 6. Addition of ACEI or ARB hemodynamics permitting 7. DVT prophylaxis
[2018-03-26] MEDS ORDERED: PT OWN MED DRAWER 7, Y5N ONE ×2 (15:58→18:18)
[2018-03-26 18:31] LABS: HEMATOCRIT 29.1 % (35.4-49); HEMOGLOBIN 9.4 GM/dL (11.7-16.9); MCH 29.8 pg (25.7-33.7); MCHC 32.4 g/dl (32.0-35.9); PLATELET COUNT 72 K/MM3 (134-434); RBC 3.17 M/mm3 (4.00-5.60); RDW 14.8 % (11.9-15.9); WHITE BLOOD COUNT 5.5 K/mm3 (4.0-10.0)
[2018-03-26] MEDS: DAPTOMYCIN 500 MG in SODIUM CHLORIDE 50 ML IVPB SCH (18:34)
[2018-03-26] MEDS: ATORVASTATIN CA 10 MG TABLET (FP) PO SCH (21:57)
[2018-03-26] MEDS: SODIUM CHLORIDE 1,000 ML IV SCH (22:00)
[2018-03-27] MEDS: methylPREDNISolone NA SUCC 40 MG/1 ML VIAL IVPUSH SCH ×3 (01:48→17:01)
[2018-03-27] MEDS: SODIUM CHLORIDE 1,000 ML IV SCH (01:50)
[2018-03-27] MEDS ORDERED: dilTIAZem HCL 50 MG/10 ML - 10 ML VIAL IVPUSH ONE (06:11)
[2018-03-27] MEDS: ALPRAZolam 0.25 MG TABLET PO PRN ×3 (06:32→18:43)
--- NOTE | 2018-03-27 06:33 | RAPID ---
Physical Examination Vital Signs: Vital Signs Temperature 97.8 F 03/27/18 05:00 Pulse Rate 88 03/27/18 05:00 Respiratory Rate 20 03/27/18 05:00 Blood Pressure 113/48 L 03/27/18 05:00 O2 Sat by Pulse Oximetry (%) 93 L 03/26/18 20:38 Labs: CBC, BMP 03/26/18 17:30 03/26/18 05:30 Rapid Response - Rapid Response Assessment: Rapid response called at 06:04. Primary team responded immediately. Nursing staff alerts that patients heart rate increased to 150 bpm and he is "shaking" Denies chest pain, SOB, nausea vomiting. A&Ox3. No JVD Diminished breath sounds, RRR, S1 S2 Patient has a hx of AFib with RVR. HR on arrival was irregular at 150 BPMs. Patient laid back down in bed, was given a breathing tx, and his PRN Cardizem. Patients HR came back down btwn 107-119. No longer feeling tachypnea or shakes.
[2018-03-27] MEDS: INSULIN SLIDING SCALE (NOVOLOG) 1 VIAL SQ SCH ×4 (07:07→22:59)
[2018-03-27 07:44] LABS: BASO % 0.1 % (0-2.0); HEMATOCRIT 27.4 % (35.4-49); HEMOGLOBIN 9.1 GM/dL (11.7-16.9); LYMPH % 2.7 % (8-40); MCH 30.4 pg (25.7-33.7); MCHC 33.3 g/dl (32.0-35.9); MEAN CELL VOLUME 91.4 fl (80-96); MEAN PLT VOLUME 10.5 fl (7.5-11.1); MONO % 3.5 % (3.8-10.2); NEUT % 93.7 % (42.8-82.8); PLATELET COUNT 66 K/MM3 (134-434)
[2018-03-27 08:42] LABS: ALBUMIN 1.9 g/dl (3.4-5.0); ALK PHOS 61 U/L (45-117); ANION GAP 5 MMOL/L (8-16); BILIRUBIN,TOTAL 0.5 mg/dL (0.2-1); BLOOD UREA NITROGEN 25 mg/dL (7-18); CALCIUM 7.6 mg/dL (8.5-10.1); CHLORIDE 110 mmol/L (98-107); CO2 29 mmol/L (21-32); CREATININE 0.5 mg/dL (0.55-1.3); GLUCOSE,RANDOM 151 mg/dL (74-106); POTASSIUM 3.9 mmol/L (3.5-5.1); SGOT/AST 19 U/L (15-37); SGPT/ALT 29 U/L (13-61); SODIUM 144 mmol/L (136-145); TOT PROT 4.8 g/dl (6.4-8.2)
--- NOTE | 2018-03-27 09:09 | PN ---
Progress Note, Physician Chief Complaint: COPD exacerbation MRSA Bacteremia History of Present Illness: NAD Breathing much improved On IV abx-daptomycin 500 mg daily On Medrol 40 mg IVP Q8H noted SVT this AM, now in afib Seen by cardiology - Current Medication List Current Medications: Active Medications Acetaminophen (Ofirmev Injection -) 1,000 mg IVPB Q6H PRN PRN Reason: FEVER Albuterol Sulfate (Ventolin 0.083% Nebulizer Soln -) 1 amp NEB RQID [facility] Last Admin: 03/26/18 20:38 Dose: 1 amp Alprazolam (Xanax -) 0.25 mg PO Q6H PRN PRN Reason: ANXIETY Last Admin: 03/27/18 06:32 Dose: 0.25 mg Apixaban (Eliquis -) 5 mg PO BID [facility] Last Admin: 03/26/18 21:57 Dose: 5 mg Arformoterol Tartrate (Brovana (Restricted To Pulmonology/Resp) -) 1 amp NEB RBID [facility] Last Admin: 03/26/18 22:27 Dose: 1 amp Atorvastatin Calcium (Lipitor -) 10 mg PO HS [facility] Last Admin: 03/26/18 21:57 Dose: 10 mg Budesonide/Formoterol Fumarate (Symbicort 160/4.5mcg -) 2 puff IH BID [facility] Last Admin: 03/26/18 22:01 Dose: 2 inh Diltiazem HCl (Cardizem Cd -) 120 mg PO BID [facility] Last Admin: 03/26/18 21:57 Dose: 120 mg Diltiazem HCl (Cardizem Injection -) 10 mg IVPUSH Q4H PRN PRN Reason: TACHYCARDIA Escitalopram Oxalate (Lexapro -) 10 mg PO DAILY [facility] Sodium Chloride (Normal Saline -) 1,000 mls @ 125 mls/hr IV ASDIR [facility] Last Admin: 03/27/18 01:50 Dose: 125 mls/hr Daptomycin 500 mg/ Sodium (Chloride) 50 mls @ 50 mls/hr IVPB DAILY [facility]; Protocol Last Admin: 03/26/18 18:34 Dose: 50 mls/hr Insulin Aspart (Novolog Vial Sliding Scale -) 1 vial SQ ACHS [facility]; Protocol Last Admin: 03/27/18 07:07 Dose: 2 units Methylprednisolone Sodium Succinate (Solu-Medrol -) 40 mg IVPUSH Q8H-IV TA Last Admin: 03/27/18 01:48 Dose: 40 mg Tamsulosin HCl (Flomax -) 0.4 mg PO DAILY@0830 [facility] Tiotropium [place] (Spiriva Respimat) 2 puff IH DAILY [facility] - Objective Vital Signs: Vital Signs Temperature 97.8 F 03/27/18 05:00 Pulse Rate 88 03/27/18 05:00 Respiratory Rate 20 03/27/18 05:00 Blood Pressure 113/48 L 03/27/18 05:00 O2 Sat by Pulse Oximetry (%) 93 L 03/26/18 20:38 Constitutional: Yes: No Distress, Calm, Thin Cardiovascular: Yes: Pulse Irregular Respiratory: Yes: Diminished, On Nasal O2, SOB, SOB on Exertion, Tachypnea Gastrointestinal: Yes: Normal Bowel Sounds, Soft Musculoskeletal: Yes: Muscle Weakness Extremities: Yes: WNL Edema: No Peripheral Pulses WNL: Yes Neurological: Yes: Alert, Oriented Psychiatric: Yes: Alert, Oriented Labs: CBC, BMP 03/27/18 05:30 03/27/18 05:30 INR, PTT INR 1.37 (0.83-1.09) H 03/26/18 05:30 Fibrinogen 668.0 mg/dL (238-498) H 03/24/18 15:30 Problem List - Problems (1) Sepsis Assessment/Plan: -Lactic acid normal -Afebrile -BC: Microbiology 03/25/18 12:20 Blood Culture - Preliminary Blood - Peripheral Venous Presumptive Mrsa (Pbp2a Pos) 03/25/18 12:05 Blood Culture - Preliminary Blood - Peripheral Venous Presumptive Mrsa (Pbp2a Pos) 03/24/18 11:53 Blood Culture - Preliminary Blood - Peripheral Venous Presumptive Mrsa (Pbp2a Pos) 03/24/18 11:37 Blood Culture - Preliminary Blood - Peripheral Venous Presumptive Mrsa (Pbp2a Pos) -On IV daptomycin 500 mg daily -ID on board Code(s): A41.9 - SEPSIS, UNSPECIFIED ORGANISM (2) Acute and chronic respiratory failure Assessment/Plan: -Seen by pulmonary -BIPAP, to keep SpO2 > 90% -Solumedrol 40 mg Q8H -Bronchodilators -IV abx Code(s): J96.20 - ACUTE AND CHR RESP FAILURE, UNSP W HYPOXIA OR HYPERCAPNIA Qualifiers: Respiratory failure complication: hypoxia and hypercapnia Qualified Code(s) : J96.21 - Acute and chronic respiratory failure with hypoxia; J96.22 - Acute and chronic respiratory failure with hypercapnia (3) COPD exacerbation Assessment/Plan: -Pulmonary on board -BIPAP -Bronchodilators -Solumedrol 40 mg Q8H -Nasal O2 to keep SpO2 >90% Code(s): J44.1 - CHRONIC OBSTRUCTIVE PULMONARY DISEASE W (ACUTE) EXACERBATION (4) Paroxysmal atrial fibrillation with rapid ventricular response Assessment/Plan: -Currently in afib -Tele monitoring -On ELiquis 5 mg po bid -cardiology on board -BP low at the moment -On diltiazem CD 120 mg po daily -Diltiazem IVP 10 mg IVP prn ordered Code(s): I48.0 - PAROXYSMAL ATRIAL FIBRILLATION (5) Elevated troponin Assessment/Plan: -likely 2/2 to demand ischemia -repeat troponin series Q8H x 3-trending down Code(s): R74.8 - ABNORMAL LEVELS OF OTHER SERUM ENZYMES (6) Hypoalbuminemia Assessment/Plan: -due to decreased PO intake -Prosource Code(s): E88.09 - OTH DISORDERS OF PLASMA-PROTEIN METABOLISM, NEC (7) Protein calorie malnutrition Assessment/Plan: -due to decreased PO intake -Prosource Code(s): E46 - UNSPECIFIED PROTEIN-CALORIE MALNUTRITION (8) Anemia Assessment/Plan: -B12, Thyroid profile and folic acid unremarkable -Iron % low-unable to give venofer due to bacteremia -start ferrous sulfate 325 mg po daily -check stool OB-still pending -monitor trend Code(s): D64.9 - ANEMIA, UNSPECIFIED Qualifiers: Anemia type: unspecified type Qualified Code(s): D64.9 - Anemia, unspecified (9) Anxiety Assessment/Plan: -Increase alprazolam to 0.5 mg po TID PRN Code(s): F41.9 - ANXIETY DISORDER, UNSPECIFIED (10) Hyperthyroidism Assessment/Plan: -borderline -Endocrinology consult ordered Code(s): E05.90 - THYROTOXICOSIS, UNSP WITHOUT THYROTOXIC CRISIS OR STORM Assessment/Plan see problem list Physical therapy
[2018-03-27] MEDS: APIXABAN 5 MG TABLET PO SCH ×2 (09:11→22:46)
[2018-03-27] MEDS: TIOTROPIUM BROMIDE 2.5 MCG (SPIRIVA) RESPIMAT INHALER IH SCH (09:11)
[2018-03-27] MEDS: BUDESONIDE/FORMETEROL FUMARATE 160/4.5 mcg INHALER IH SCH ×2 (09:11→22:46)
[2018-03-27] MEDS: TAMSULOSIN HCL 0.4 MG CAP PO SCH (09:11)
[2018-03-27] MEDS: ESCITALOPRAM OXALATE 10 MG TABLET (FP) PO SCH (09:11)
[2018-03-27] MEDS: ARFORMOTEROL TARTRATE 15 MCG/2 ML VIAL NEB SCH ×2 (09:56→20:26)
[2018-03-27] MEDS ORDERED: PT OWN MED DRAWER 7, Y5N ONE (10:34)
[2018-03-27] MEDS: ALBUTEROL SO4 0.083% IH SOL 2.5 MG/3 ML VIAL.NEB. NEB SCH ×4 (10:58→20:27)
[2018-03-27] MEDS: FERROUS SO4 325 MG TABLET (FP) PO SCH (11:12)
[2018-03-27] MEDS: DAPTOMYCIN 500 MG in SODIUM CHLORIDE 50 ML IVPB SCH (11:12)
[2018-03-27 11:32] LABS: ANISOCYTOSIS 2+; MACROCYTOSIS 0; PLATELET ESTIMATE DECREASED
--- NOTE | 2018-03-27 12:03 | PN ---
Progress Note (short form) - Note Progress Note: Chief Complaint: Events noted, notes reviewed, developed atrial fibrillation with periods of rapid ventricular response, reporting anxiety and dyspnea, denies any chest pain, spontaneously converted to sinus rhythm History of Present Illness: Seen and examined on telemetry. Events noted, notes reviewed, developed atrial fibrillation with periods of rapid ventricular response, reporting anxiety and dyspnea, denies any chest pain, spontaneously converted to sinus rhythm Hypotension this AM requiring IV fluids - Current Medication List Current Medications Acetaminophen (Ofirmev Injection -) 1,000 mg IVPB Q6H PRN PRN Reason: FEVER Albuterol Sulfate (Ventolin 0.083% Nebulizer Soln -) 1 amp NEB RQID [facility] Last Admin: 03/27/18 10:58 Dose: Not Given Alprazolam (Xanax -) 0.5 mg PO Q8H PRN PRN Reason: ANXIETY Last Admin: 03/27/18 11:12 Dose: 0.5 mg Amino Acids (Prosource No Carb Liquid Pkt) 30 ml PO BID@0800,1730 [facility] Apixaban (Eliquis -) 5 mg PO BID [facility] Last Admin: 03/27/18 09:11 Dose: 5 mg Arformoterol Tartrate (Brovana (Restricted To Pulmonology/Resp) -) 1 amp NEB RBID [facility] Last Admin: 03/27/18 09:56 Dose: 1 amp Atorvastatin Calcium (Lipitor -) 10 mg PO HS [facility] Last Admin: 03/26/18 21:57 Dose: 10 mg Bisacodyl (Dulcolax -) 5 mg PO DAILY PRN PRN Reason: CONSTIPATION Budesonide/Formoterol Fumarate (Symbicort 160/4.5mcg -) 2 puff IH BID [facility] Last Admin: 03/27/18 09:11 Dose: 2 inh Diltiazem HCl (Cardizem Cd -) 120 mg PO BID [facility] Last Admin: 03/27/18 09:14 Dose: 120 mg Diltiazem HCl (Cardizem Injection -) 10 mg IVPUSH Q4H PRN PRN Reason: TACHYCARDIA Escitalopram Oxalate (Lexapro -) 10 mg PO DAILY [facility] Last Admin: 03/27/18 09:11 Dose: 10 mg Ferrous Sulfate (Feosol -) 325 mg PO DAILY [facility] Last Admin: 03/27/18 11:12 Dose: 325 mg Sodium Chloride (Normal Saline -) 1,000 mls @ 125 mls/hr IV ASDIR TA Last Admin: 03/27/18 01:50 Dose: 125 mls/hr Daptomycin 500 mg/ Sodium (Chloride) 50 mls @ 50 mls/hr IVPB DAILY [facility]; Protocol Last Admin: 03/27/18 11:12 Dose: 50 mls/hr Insulin Aspart (Novolog Vial Sliding Scale -) 1 vial SQ ACHS [facility]; Protocol Last Admin: 03/27/18 11:51 Dose: 2 units Methylprednisolone Sodium Succinate (Solu-Medrol -) 40 mg IVPUSH Q8H-IV TA Last Admin: 03/27/18 09:11 Dose: 40 mg Tamsulosin HCl (Flomax -) 0.4 mg PO DAILY@0830 [facility] Last Admin: 03/27/18 09:11 Dose: 0.4 mg Tiotropium [place] (Spiriva Respimat) 2 puff IH DAILY [facility] Last Admin: 03/27/18 09:11 Dose: 2 puff - Review of Systems Cardiovascular: As noted above Respiratory: As noted above Gastrointestinal: denies: Nausea, Vomiting, Diarrhea, Constipation or Abdominal Pain Musculoskeletal: No symptoms reported Neurological: No symptoms reported - Objective Vital Signs: Last Vital Signs Temp Pulse Resp BP Pulse Ox 97.8 F 88 20 113/48 L 93 L 03/27/18 05:00 03/27/18 05:00 03/27/18 05:00 03/27/18 05:00 03/26/18 20:38 Intake & Output 03/24/18 03/25/18 03/26/18 03/27/18 23:59 23:59 23:59 23:59 Intake Total 1500 2205 1235 1600 Output Total 500 600 Balance 1000 1605 1235 1600 Weight 138 lb 14.259 oz 138 lb 144 lb 6.4 oz Neck: Supple Negative JVD Cardiovascular: S1 S2 Regular Rate Rhythm Respiratory: Diminished breath sounds Bilaterally Scattered Rhonchi Gastrointestinal: Soft Benign Normal Bowel Sounds Ext: Negative Edema Labs: CBC, BMP 03/27/18 05:30 03/27/18 05:30 Hepatic Panel Total Bilirubin 0.5 mg/dL (0.2-1) 03/27/18 05:30 AST 19 U/L (15-37) 03/27/18 05:30 ALT 29 U/L (13-61) 03/27/18 05:30 Alkaline Phosphatase 61 U/L (45-117) 03/27/18 05:30 Albumin 1.9 g/dl (3.4-5.0) L 03/27/18 05:30 Assessment/Plan ASSESSMENT: 1. MRSA bacteremia of unclear source rule out endocarditis 2. Paroxysmal atrial fibrillation currently in sinus rhythm with [id number] score of 2, recurrent arrhythmia this AM 3. Acute on Chronic Hypoxic and Hypercapneic Respiratory Failure referable to 4. Acute exacerbation of advanced chronic obstructive pulmonary disease on home oxygen therapy with Pulmonary HTN 5. History of Atypical Mycobacterium 6. CAD non-obstructive coronary artery disease angina pectoris, stable 7. Diastolic LV dysfunction with class 0-I NYHA classification LV failure, compensated/euvolemic 8. HTN, transient hypotension this AM 9. Hypercholesterolemia 10. Anemia and thrombocytopenia 11. RUL mass 12. Sick euthyroid syndrome PLAN: 1. Continue Cardizem CD hemodynamics permitting 2. Continue A/C with Eliquis with caution considering the above noted anemia and thrombocytopenia 3. Continue Lipitor 4. Hold Lasix 5. Consider the addition of ACEI or ARBS hemodynamics permitting 6. Antibiotics course as per ID service 7. Steroids and bronchodilators as per the pulmonary team 8. LUBNA if bacteremia or fevers persists Ashley Bojorquez MD
[2018-03-27] MEDS: dilTIAZem HCL 50 MG/10 ML - 10 ML VIAL IVPUSH PRN (13:00)
--- NOTE | 2018-03-27 14:52 | PN ---
Progress Note (short form) - Note Progress Note: PULMONARY Somnolent but arousable. No fevers recorded. Vital Signs Period Temp Pulse Resp BP Sys/Morgan Pulse Ox Last 24 Hr 97.4 F-98.5 F 71-88 18-20 108-124/48-65 93 Gen: somnolent Heart: RRR Lung: decreased breath sounds at the bases Abd: soft, nontender Ext: no edema CBC, BMP 03/27/18 05:30 03/27/18 05:30 Active Medications Acetaminophen (Ofirmev Injection -) 1,000 mg IVPB Q6H PRN PRN Reason: FEVER Albuterol Sulfate (Ventolin 0.083% Nebulizer Soln -) 1 amp NEB RQID [facility] Last Admin: 03/27/18 12:11 Dose: 1 amp Alprazolam (Xanax -) 0.5 mg PO Q8H PRN PRN Reason: ANXIETY Last Admin: 03/27/18 11:12 Dose: 0.5 mg Amino Acids (Prosource No Carb Liquid Pkt) 30 ml PO BID@0800,1730 [facility] Apixaban (Eliquis -) 5 mg PO BID [facility] Last Admin: 03/27/18 09:11 Dose: 5 mg Arformoterol Tartrate (Brovana (Restricted To Pulmonology/Resp) -) 1 amp NEB RBID [facility] Last Admin: 03/27/18 09:56 Dose: 1 amp Atorvastatin Calcium (Lipitor -) 10 mg PO HS [facility] Last Admin: 03/26/18 21:57 Dose: 10 mg Bisacodyl (Dulcolax -) 5 mg PO DAILY PRN PRN Reason: CONSTIPATION Budesonide/Formoterol Fumarate (Symbicort 160/4.5mcg -) 2 puff IH BID [facility] Last Admin: 03/27/18 09:11 Dose: 2 inh Diltiazem HCl (Cardizem Cd -) 120 mg PO BID [facility] Last Admin: 03/27/18 09:14 Dose: 120 mg Diltiazem HCl (Cardizem Injection -) 10 mg IVPUSH Q4H PRN PRN Reason: TACHYCARDIA Escitalopram Oxalate (Lexapro -) 10 mg PO DAILY [facility] Last Admin: 03/27/18 09:11 Dose: 10 mg Ferrous Sulfate (Feosol -) 325 mg PO DAILY [facility] Last Admin: 03/27/18 11:12 Dose: 325 mg Sodium Chloride (Normal Saline -) 1,000 mls @ 125 mls/hr IV ASDIR [facility] Last Admin: 03/27/18 01:50 Dose: 125 mls/hr Daptomycin 500 mg/ Sodium (Chloride) 50 mls @ 50 mls/hr IVPB DAILY [facility]; Protocol Last Admin: 03/27/18 11:12 Dose: 50 mls/hr Insulin Aspart (Novolog Vial Sliding Scale -) 1 vial SQ ACHS [facility]; Protocol Last Admin: 03/27/18 11:51 Dose: 2 units Methylprednisolone Sodium Succinate (Solu-Medrol -) 40 mg IVPUSH Q8H-IV TA Last Admin: 03/27/18 09:11 Dose: 40 mg Tamsulosin HCl (Flomax -) 0.4 mg PO DAILY@0830 [facility] Last Admin: 03/27/18 09:11 Dose: 0.4 mg Tiotropium [place] (Spiriva Respimat) 2 puff IH DAILY [facility] Last Admin: 03/27/18 09:11 Dose: 2 puff A/P Acute on Chronic Hypoxic Respiratory Failure MRSA Bacteremia r/o Endocarditis Severe Sepsis improving Atrial Fibrillation with RVR Acute COPD Exacerbation CAD LV Diastolic Dysfunction Pulmonary HTN Thrombocytopenia Anemia - continue antibiotics - f/u pending cultures - may need LUBNA - rate control - continue anticoagulation - empiric solumedrol 40mg q8h - inhaled bronchodilators standing and PRN - BiPAP as needed to assist in work of breathing - O2 to keep SpO2 >90% - monitor CBC, coags - aspiration precautions
[2018-03-27] MEDS: AMINO ACIDS/PROTEIN HYDROLYS 30 ML LIQUID.PKT PO SCH (16:59)
[2018-03-27] MEDS: ATORVASTATIN CA 10 MG TABLET (FP) PO SCH (22:45)
[2018-03-27] MEDS ORDERED: INSULIN (NOVOLOG) ASPART 100 UNITS/ML 10ML VIAL ONE (22:55)
[2018-03-28] MEDS: methylPREDNISolone NA SUCC 40 MG/1 ML VIAL IVPUSH SCH ×3 (01:30→17:51)
[2018-03-28] MEDS: ALPRAZolam 0.25 MG TABLET PO PRN ×2 (02:57→18:31)
[2018-03-28] MEDS: SODIUM CHLORIDE 1,000 ML IV SCH ×2 (06:03→22:41)
[2018-03-28] MEDS: INSULIN SLIDING SCALE (NOVOLOG) 1 VIAL SQ SCH ×4 (06:04→22:39)
[2018-03-28 07:37] LABS: BASO % 0.1 % (0-2.0); EOS % 0.1 % (0-4.5); HEMATOCRIT 25.5 % (35.4-49); HEMOGLOBIN 8.4 GM/dL (11.7-16.9); LYMPH % 3.4 % (8-40); MCH 29.9 pg (25.7-33.7); MCHC 32.9 g/dl (32.0-35.9); MEAN CELL VOLUME 90.9 fl (80-96); MEAN PLT VOLUME 10.5 fl (7.5-11.1); MONO % 4.4 % (3.8-10.2); PLATELET COUNT 70 K/MM3 (134-434); RDW 15.3 % (11.9-15.9); WHITE BLOOD COUNT 4.3 K/mm3 (4.0-10.0)
[2018-03-28] MEDS: ALBUTEROL SO4 0.083% IH SOL 2.5 MG/3 ML VIAL.NEB. NEB SCH ×4 (08:20→23:05)
[2018-03-28 09:19] LABS: ANISOCYTOSIS 2+; MACROCYTOSIS 0; PLATELET ESTIMATE DECREASED
[2018-03-28 09:21] LABS: ALK PHOS 53 U/L (45-117); ANION GAP 5 MMOL/L (8-16); BILIRUBIN,TOTAL 0.3 mg/dL (0.2-1); BLOOD UREA NITROGEN 30 mg/dL (7-18); CALCIUM 7.7 mg/dL (8.5-10.1); CHLORIDE 111 mmol/L (98-107); CO2 31 mmol/L (21-32); CREATININE 0.5 mg/dL (0.55-1.3); GLUCOSE,RANDOM 165 mg/dL (74-106); POTASSIUM 3.7 mmol/L (3.5-5.1); SGOT/AST 19 U/L (15-37); SGPT/ALT 33 U/L (13-61); SODIUM 147 mmol/L (136-145); TOT PROT 4.6 g/dl (6.4-8.2)
--- NOTE | 2018-03-28 09:44 | PN ---
Progress Note (short form) - Note Progress Note: Chief Complaint: Events noted, notes reviewed, reporting persistent anxiety but improved, dyspnea persists but improved, denies any chest pain, sinus rhythm is persistent History of Present Illness: Seen and examined on telemetry. Events noted, notes reviewed, reporting persistent anxiety but improved, dyspnea persists but improved, denies any chest pain, sinus rhythm is persistent - Current Medication List Current Medications Acetaminophen (Ofirmev Injection -) 1,000 mg IVPB Q6H PRN PRN Reason: FEVER Last Admin: 03/27/18 17:27 Dose: 1,000 mg Albuterol Sulfate (Ventolin 0.083% Nebulizer Soln -) 1 amp NEB RQID [facility] Last Admin: 03/28/18 08:20 Dose: 1 amp Alprazolam (Xanax -) 0.5 mg PO Q8H PRN PRN Reason: ANXIETY Last Admin: 03/28/18 02:57 Dose: 0.5 mg Amino Acids (Prosource No Carb Liquid Pkt) 30 ml PO BID@0800,1730 [facility] Last Admin: 03/27/18 16:59 Dose: 30 ml Apixaban (Eliquis -) 5 mg PO BID [facility] Last Admin: 03/27/18 22:46 Dose: 5 mg Arformoterol Tartrate (Brovana (Restricted To Pulmonology/Resp) -) 1 amp NEB RBID [facility] Last Admin: 03/27/18 20:26 Dose: 1 amp Atorvastatin Calcium (Lipitor -) 10 mg PO HS [facility] Last Admin: 03/27/18 22:45 Dose: 10 mg Bisacodyl (Dulcolax -) 5 mg PO DAILY PRN PRN Reason: CONSTIPATION Budesonide/Formoterol Fumarate (Symbicort 160/4.5mcg -) 2 puff IH BID [facility] Last Admin: 03/27/18 22:46 Dose: 2 inh Diltiazem HCl (Cardizem Cd -) 120 mg PO BID [facility] Last Admin: 03/27/18 22:46 Dose: 120 mg Diltiazem HCl (Cardizem Injection -) 10 mg IVPUSH Q4H PRN PRN Reason: TACHYCARDIA Last Admin: 03/27/18 13:00 Dose: 10 mg Escitalopram Oxalate (Lexapro -) 10 mg PO DAILY [facility] Last Admin: 03/27/18 09:11 Dose: 10 mg Ferrous Sulfate (Feosol -) 325 mg PO DAILY [facility] Last Admin: 03/27/18 11:12 Dose: 325 mg Sodium Chloride (Normal Saline -) 1,000 mls @ 125 mls/hr IV ASDIR [facility] Last Admin: 03/28/18 06:03 Dose: 125 mls/hr Daptomycin 500 mg/ Sodium (Chloride) 50 mls @ 50 mls/hr IVPB DAILY [facility]; Protocol Last Admin: 03/27/18 11:12 Dose: 50 mls/hr Insulin Aspart (Novolog Vial Sliding Scale -) 1 vial SQ ACHS [facility]; Protocol Last Admin: 03/28/18 06:04 Dose: 2 units Methylprednisolone Sodium Succinate (Solu-Medrol -) 40 mg IVPUSH Q8H-IV [facility] Last Admin: 03/28/18 01:30 Dose: 40 mg Tamsulosin HCl (Flomax -) 0.4 mg PO DAILY@0830 [facility] Last Admin: 03/27/18 09:11 Dose: 0.4 mg Tiotropium [place] (Spiriva Respimat) 2 puff IH DAILY [facility] Last Admin: 03/27/18 09:11 Dose: 2 puff - Review of Systems Cardiovascular: As noted above Respiratory: As noted above Gastrointestinal: denies: Nausea, Vomiting, Diarrhea, Constipation or Abdominal Pain Musculoskeletal: No symptoms reported Neurological: No symptoms reported - Objective Vital Signs: Last Vital Signs Temp Pulse Resp BP Pulse Ox 97.9 F 63 20 99/43 L 95 03/28/18 05:54 03/28/18 05:54 03/28/18 02:00 03/28/18 05:54 03/28/18 06:03 Intake & Output 03/25/18 03/26/18 03/27/18 03/28/18 23:59 23:59 23:59 23:59 Intake Total 2205 1235 2440 100 Output Total 600 800 Balance 1605 1235 1640 100 Weight 138 lb 144 lb 6.4 oz 149 lb 3.2 oz Neck: Supple Negative JVD Cardiovascular: S1 S2 Regular Rate Rhythm Respiratory: Diminished breath sounds Bilaterally Scattered Rhonchi Gastrointestinal: Soft Benign Normal Bowel Sounds Ext: Negative Edema Labs: CBC, BMP 03/28/18 05:45 03/28/18 05:45 Assessment/Plan ASSESSMENT: 1. MRSA bacteremia of unclear source 2. Paroxysmal atrial fibrillation currently in sinus rhythm with [id number] score of 2 3. Acute on Chronic Hypoxic and Hypercapneic Respiratory Failure referable to 4. Acute exacerbation of advanced chronic obstructive pulmonary disease on home oxygen therapy with Pulmonary HTN 5. History of Atypical Mycobacterium 6. CAD non-obstructive coronary artery disease angina pectoris, stable 7. Diastolic LV dysfunction with class 0-I NYHA classification LV failure, compensated/euvolemic 8. HTN, transient hypotension 9. Hypercholesterolemia 10. Anemia and thrombocytopenia 11. RUL mass 12. Sick euthyroid syndrome PLAN: 1. Continue Cardizem CD, hemodynamics permitting 2. Continue A/C with Eliquis with caution considering the above noted anemia and thrombocytopenia 3. Continue Lipitor 4. Continue to hold Lasix 5. Consider the addition of ACEI or ARBS hemodynamics permitting 6. Antibiotics course as per ID service 7. Steroids and bronchodilators as per the pulmonary team 8. LUBNA if bacteremia or fevers recurs/persists Ashley Bojorquez MD
[2018-03-28] MEDS: AMINO ACIDS/PROTEIN HYDROLYS 30 ML LIQUID.PKT PO SCH ×2 (09:58→17:51)
[2018-03-28] MEDS: TAMSULOSIN HCL 0.4 MG CAP PO SCH (09:59)
[2018-03-28] MEDS: APIXABAN 5 MG TABLET PO SCH ×2 (09:59→22:40)
[2018-03-28] MEDS: ESCITALOPRAM OXALATE 10 MG TABLET (FP) PO SCH (09:59)
[2018-03-28] MEDS: DAPTOMYCIN 500 MG in SODIUM CHLORIDE 50 ML IVPB SCH ×2 (09:59→12:49)
[2018-03-28] MEDS: FERROUS SO4 325 MG TABLET (FP) PO SCH (10:00)
[2018-03-28] MEDS: ARFORMOTEROL TARTRATE 15 MCG/2 ML VIAL NEB SCH ×2 (10:00→23:05)
[2018-03-28] MEDS: BUDESONIDE/FORMETEROL FUMARATE 160/4.5 mcg INHALER IH SCH ×2 (10:01→22:40)
[2018-03-28] MEDS: TIOTROPIUM BROMIDE 2.5 MCG (SPIRIVA) RESPIMAT INHALER IH SCH (10:01)
--- NOTE | 2018-03-28 12:03 | PN ---
Progress Note, Physician Chief Complaint: COPD exacerbation MRSA Bacteremia History of Present Illness: NAD Breathing much improved On IV abx-daptomycin 500 mg daily On Medrol 40 mg IVP Q8H Seen by cardiology - Current Medication List Current Medications: Active Medications Acetaminophen (Ofirmev Injection -) 1,000 mg IVPB Q6H PRN PRN Reason: FEVER Last Admin: 03/27/18 17:27 Dose: 1,000 mg Albuterol Sulfate (Ventolin 0.083% Nebulizer Soln -) 1 amp NEB RQID [facility] Last Admin: 03/28/18 08:20 Dose: 1 amp Alprazolam (Xanax -) 0.5 mg PO Q8H PRN PRN Reason: ANXIETY Last Admin: 03/28/18 02:57 Dose: 0.5 mg Amino Acids (Prosource No Carb Liquid Pkt) 30 ml PO BID@0800,1730 [facility] Last Admin: 03/28/18 09:58 Dose: 30 ml Apixaban (Eliquis -) 5 mg PO BID [facility] Last Admin: 03/28/18 09:59 Dose: 5 mg Arformoterol Tartrate (Brovana (Restricted To Pulmonology/Resp) -) 1 amp NEB RBID [facility] Last Admin: 03/27/18 20:26 Dose: 1 amp Atorvastatin Calcium (Lipitor -) 10 mg PO HS [facility] Last Admin: 03/27/18 22:45 Dose: 10 mg Bisacodyl (Dulcolax -) 5 mg PO DAILY PRN PRN Reason: CONSTIPATION Budesonide/Formoterol Fumarate (Symbicort 160/4.5mcg -) 2 puff IH BID [facility] Last Admin: 03/28/18 10:01 Dose: 2 inh Diltiazem HCl (Cardizem Cd -) 120 mg PO BID [facility] Last Admin: 03/28/18 09:59 Dose: 120 mg Diltiazem HCl (Cardizem Injection -) 10 mg IVPUSH Q4H PRN PRN Reason: TACHYCARDIA Last Admin: 03/27/18 13:00 Dose: 10 mg Escitalopram Oxalate (Lexapro -) 10 mg PO DAILY [facility] Last Admin: 03/28/18 09:59 Dose: 10 mg Ferrous Sulfate (Feosol -) 325 mg PO DAILY [facility] Last Admin: 03/28/18 10:00 Dose: Not Given Sodium Chloride (Normal Saline -) 1,000 mls @ 125 mls/hr IV ASDIR TA Last Admin: 03/28/18 06:03 Dose: 125 mls/hr Daptomycin 500 mg/ Sodium (Chloride) 50 mls @ 50 mls/hr IVPB DAILY [facility]; Protocol Last Admin: 03/28/18 09:59 Dose: Not Given Insulin Aspart (Novolog Vial Sliding Scale -) 1 vial SQ ACHS [facility]; Protocol Last Admin: 03/28/18 11:27 Dose: Not Given Methylprednisolone Sodium Succinate (Solu-Medrol -) 40 mg IVPUSH Q8H-IV TA Last Admin: 03/28/18 09:59 Dose: 40 mg Tamsulosin HCl (Flomax -) 0.4 mg PO DAILY@0830 [facility] Last Admin: 03/28/18 09:59 Dose: 0.4 mg Tiotropium [place] (Spiriva Respimat) 2 puff IH DAILY [facility] Last Admin: 03/28/18 10:01 Dose: 2 puff - Objective Vital Signs: Vital Signs Temperature 97.9 F 03/28/18 05:54 Pulse Rate 74 03/28/18 10:00 Respiratory Rate 20 03/28/18 10:00 Blood Pressure 120/59 L 03/28/18 10:00 O2 Sat by Pulse Oximetry (%) 95 03/28/18 06:03 Constitutional: Yes: Well Nourished, No Distress, Calm Cardiovascular: Yes: Regular Rate and Rhythm Respiratory: Yes: Diminished, On Nasal O2, SOB on Exertion, Tachypnea Gastrointestinal: Yes: Normal Bowel Sounds, Soft Musculoskeletal: Yes: WNL Extremities: Yes: WNL Edema: No Peripheral Pulses WNL: Yes Neurological: Yes: Alert, Oriented Psychiatric: Yes: Alert, Oriented Labs: CBC, BMP 03/28/18 05:45 03/28/18 05:45 INR, PTT INR 1.37 (0.83-1.09) H 03/26/18 05:30 Fibrinogen 668.0 mg/dL (238-498) H 03/24/18 15:30 Problem List - Problems (1) Sepsis Assessment/Plan: -Lactic acid normal -Afebrile -BC: Microbiology 03/25/18 12:20 Blood Culture - Preliminary Blood - Peripheral Venous Presumptive [place] (Pbp2a Pos) 03/25/18 12:05 Blood Culture - Preliminary Blood - Peripheral Venous Presumptive [place] (Pbp2a Pos) 03/24/18 11:53 Blood Culture - Preliminary Blood - Peripheral Venous Presumptive [place] (Pbp2a Pos) 03/24/18 11:37 Blood Culture - Preliminary Blood - Peripheral Venous Presumptive [place] (Pbp2a Pos) -On IV daptomycin 500 mg daily -ID on board Code(s): A41.9 - SEPSIS, UNSPECIFIED ORGANISM (2) Acute and chronic respiratory failure Assessment/Plan: -Seen by pulmonary -BIPAP, to keep SpO2 > 90% -Solumedrol 40 mg Q8H -Bronchodilators -IV abx Code(s): J96.20 - ACUTE AND CHR RESP FAILURE, UNSP W HYPOXIA OR HYPERCAPNIA Qualifiers: Respiratory failure complication: hypoxia and hypercapnia Qualified Code(s) : J96.21 - Acute and chronic respiratory failure with hypoxia; J96.22 - Acute and chronic respiratory failure with hypercapnia (3) COPD exacerbation Assessment/Plan: -Pulmonary on board -BIPAP -Bronchodilators -Solumedrol 40 mg Q8H -Nasal O2 to keep SpO2 >90% Code(s): J44.1 - CHRONIC OBSTRUCTIVE PULMONARY DISEASE W (ACUTE) EXACERBATION (4) Paroxysmal atrial fibrillation with rapid ventricular response Assessment/Plan: -Tele monitoring -On ELiquis 5 mg po bid -cardiology on board -BP low at the moment -On diltiazem CD 120 mg po daily -Diltiazem IVP 10 mg IVP prn ordered Code(s): I48.0 - PAROXYSMAL ATRIAL FIBRILLATION (5) Elevated troponin Assessment/Plan: -likely 2/2 to demand ischemia -repeat troponin series Q8H x 3-trending down Code(s): R74.8 - ABNORMAL LEVELS OF OTHER SERUM ENZYMES (6) Hypoalbuminemia Assessment/Plan: -due to decreased PO intake -Prosource Code(s): E88.09 - OTH DISORDERS OF PLASMA-PROTEIN METABOLISM, NEC (7) Protein calorie malnutrition Assessment/Plan: -due to decreased PO intake -Prosource Code(s): E46 - UNSPECIFIED PROTEIN-CALORIE MALNUTRITION (8) Anemia Assessment/Plan: -B12, Thyroid profile and folic acid unremarkable -Iron % low-unable to give venofer due to bacteremia -start ferrous sulfate 325 mg po daily -check stool OB-still pending -monitor trend Code(s): D64.9 - ANEMIA, UNSPECIFIED Qualifiers: Anemia type: unspecified type Qualified Code(s): D64.9 - Anemia, unspecified (9) Anxiety Assessment/Plan: -Increase alprazolam to 0.5 mg po TID PRN Code(s): F41.9 - ANXIETY DISORDER, UNSPECIFIED (10) Hyperthyroidism Assessment/Plan: -borderline -Endocrinology consult ordered Code(s): E05.90 - THYROTOXICOSIS, UNSP WITHOUT THYROTOXIC CRISIS OR STORM Assessment/Plan see problem list Physical therapy
--- NOTE | 2018-03-28 13:27 | PN ---
Progress Note (short form) - Note Progress Note: PULMONARY States breathing is slightly improved. No fevers recorded. Blood cultures persistently positive. Vital Signs Period Temp Pulse Resp BP Sys/Morgan Pulse Ox Last 24 Hr 97.7 F-98 F 63-86 18-20 99-120/40-65 94-96 Gen: mildly tachypneic at rest Heart: RRR Lung: scattered rhonchi, wheezes Abd: soft, nontender Ext: no edema CBC, BMP 03/28/18 05:45 03/28/18 05:45 Active Medications Acetaminophen (Ofirmev Injection -) 1,000 mg IVPB Q6H PRN PRN Reason: FEVER Last Admin: 03/27/18 17:27 Dose: 1,000 mg Albuterol Sulfate (Ventolin 0.083% Nebulizer Soln -) 1 amp NEB RQID [facility] Last Admin: 03/28/18 11:15 Dose: 1 amp Alprazolam (Xanax -) 0.5 mg PO Q8H PRN PRN Reason: ANXIETY Last Admin: 03/28/18 02:57 Dose: 0.5 mg Amino Acids (Prosource No Carb Liquid Pkt) 30 ml PO BID@0800,1730 [facility] Last Admin: 03/28/18 09:58 Dose: 30 ml Apixaban (Eliquis -) 5 mg PO BID [facility] Last Admin: 03/28/18 09:59 Dose: 5 mg Arformoterol Tartrate (Brovana (Restricted To Pulmonology/Resp) -) 1 amp NEB RBID [facility] Last Admin: 03/28/18 10:00 Dose: 1 amp Atorvastatin Calcium (Lipitor -) 10 mg PO HS [facility] Last Admin: 03/27/18 22:45 Dose: 10 mg Bisacodyl (Dulcolax -) 5 mg PO DAILY PRN PRN Reason: CONSTIPATION Budesonide/Formoterol Fumarate (Symbicort 160/4.5mcg -) 2 puff IH BID [facility] Last Admin: 03/28/18 10:01 Dose: 2 inh Diltiazem HCl (Cardizem Cd -) 120 mg PO BID [facility] Last Admin: 03/28/18 09:59 Dose: 120 mg Diltiazem HCl (Cardizem Injection -) 10 mg IVPUSH Q4H PRN PRN Reason: TACHYCARDIA Last Admin: 03/27/18 13:00 Dose: 10 mg Escitalopram Oxalate (Lexapro -) 10 mg PO DAILY [facility] Last Admin: 03/28/18 09:59 Dose: 10 mg Ferrous Sulfate (Feosol -) 325 mg PO DAILY [facility] Last Admin: 03/28/18 10:00 Dose: Not Given Sodium Chloride (Normal Saline -) 1,000 mls @ 125 mls/hr IV ASDIR [facility] Last Admin: 03/28/18 06:03 Dose: 125 mls/hr Daptomycin 500 mg/ Sodium (Chloride) 50 mls @ 50 mls/hr IVPB DAILY [facility]; Protocol Last Admin: 03/28/18 12:49 Dose: 50 mls/hr Insulin Aspart (Novolog Vial Sliding Scale -) 1 vial SQ ACHS [facility]; Protocol Last Admin: 03/28/18 11:27 Dose: Not Given Methylprednisolone Sodium Succinate (Solu-Medrol -) 40 mg IVPUSH Q8H-IV [facility] Last Admin: 03/28/18 09:59 Dose: 40 mg Tamsulosin HCl (Flomax -) 0.4 mg PO DAILY@0830 [facility] Last Admin: 03/28/18 09:59 Dose: 0.4 mg Tiotropium [place] (Spiriva Respimat) 2 puff IH DAILY [facility] Last Admin: 03/28/18 10:01 Dose: 2 puff A/P Acute on Chronic Hypoxic Respiratory Failure MRSA Bacteremia r/o Endocarditis Severe Sepsis improving Atrial Fibrillation with RVR Acute COPD Exacerbation CAD LV Diastolic Dysfunction Pulmonary HTN Thrombocytopenia Anemia - continue antibiotics - f/u pending cultures - may need LUBNA - rate control - continue anticoagulation - empiric solumedrol 40mg q8h - inhaled bronchodilators standing and PRN - BiPAP as needed to assist in work of breathing - O2 to keep SpO2 >90% - monitor CBC, coags - aspiration precautions
--- NOTE | 2018-03-28 15:30 | PN ---
Progress Note, Physician History of Present Illness: Awake, alert Offer no complaint Slightly tachypneic on nasal cannula Afebrile + 03/27 - Current Medication List Current Medications: Active Medications Acetaminophen (Ofirmev Injection -) 1,000 mg IVPB Q6H PRN PRN Reason: FEVER Last Admin: 03/27/18 17:27 Dose: 1,000 mg Albuterol Sulfate (Ventolin 0.083% Nebulizer Soln -) 1 amp NEB RQID [facility] Last Admin: 03/28/18 11:15 Dose: 1 amp Alprazolam (Xanax -) 0.5 mg PO Q8H PRN PRN Reason: ANXIETY Last Admin: 03/28/18 02:57 Dose: 0.5 mg Amino Acids (Prosource No Carb Liquid Pkt) 30 ml PO BID@0800,1730 [facility] Last Admin: 03/28/18 09:58 Dose: 30 ml Apixaban (Eliquis -) 5 mg PO BID [facility] Last Admin: 03/28/18 09:59 Dose: 5 mg Arformoterol Tartrate (Brovana (Restricted To Pulmonology/Resp) -) 1 amp NEB RBID [facility] Last Admin: 03/28/18 10:00 Dose: 1 amp Atorvastatin Calcium (Lipitor -) 10 mg PO HS [facility] Last Admin: 03/27/18 22:45 Dose: 10 mg Bisacodyl (Dulcolax -) 5 mg PO DAILY PRN PRN Reason: CONSTIPATION Budesonide/Formoterol Fumarate (Symbicort 160/4.5mcg -) 2 puff IH BID [facility] Last Admin: 03/28/18 10:01 Dose: 2 inh Diltiazem HCl (Cardizem Cd -) 120 mg PO BID [facility] Last Admin: 03/28/18 09:59 Dose: 120 mg Diltiazem HCl (Cardizem Injection -) 10 mg IVPUSH Q4H PRN PRN Reason: TACHYCARDIA Last Admin: 03/27/18 13:00 Dose: 10 mg Escitalopram Oxalate (Lexapro -) 10 mg PO DAILY [facility] Last Admin: 03/28/18 09:59 Dose: 10 mg Ferrous Sulfate (Feosol -) 325 mg PO DAILY [facility] Last Admin: 03/28/18 10:00 Dose: Not Given Sodium Chloride (Normal Saline -) 1,000 mls @ 125 mls/hr IV ASDIR [facility] Last Admin: 03/28/18 06:03 Dose: 125 mls/hr Daptomycin 500 mg/ Sodium (Chloride) 50 mls @ 50 mls/hr IVPB DAILY [facility]; Protocol Last Admin: 03/28/18 12:49 Dose: 50 mls/hr Insulin Aspart (Novolog Vial Sliding Scale -) 1 vial SQ ACHS [facility]; Protocol Last Admin: 03/28/18 11:27 Dose: Not Given Methylprednisolone Sodium Succinate (Solu-Medrol -) 40 mg IVPUSH Q8H-IV TA Last Admin: 03/28/18 09:59 Dose: 40 mg Tamsulosin HCl (Flomax -) 0.4 mg PO DAILY@0830 [facility] Last Admin: 03/28/18 09:59 Dose: 0.4 mg Tiotropium [place] (Spiriva Respimat) 2 puff IH DAILY [facility] Last Admin: 03/28/18 10:01 Dose: 2 puff - Objective Vital Signs: Vital Signs Temperature 97.9 F 03/28/18 05:54 Pulse Rate 74 03/28/18 10:00 Respiratory Rate 20 03/28/18 10:00 Blood Pressure 120/59 L 03/28/18 10:00 O2 Sat by Pulse Oximetry (%) 95 03/28/18 06:03 Cardiovascular: Yes: Regular Rate and Rhythm, S1, S2 Respiratory: Yes: Diminished Gastrointestinal: Yes: Normal Bowel Sounds, Soft Edema: No Labs: CBC, BMP 03/28/18 05:45 03/28/18 05:45 INR, PTT INR 1.37 (0.83-1.09) H 03/26/18 05:30 Fibrinogen 668.0 mg/dL (238-498) H 03/24/18 15:30 Assessment/Plan MRSA Bacteremia Acute exacerbation COPD Thrombocytopenia Repeat BC am Continue daptomycin
--- NOTE | 2018-03-28 17:21 | PN ---
Progress Note (short form) - Note Progress Note: occasional episode anxiety panic symptoms,which subside thyroid panel abnormal Abnormal Lab Results 03/28/18 03/28/18 05:45 05:45 RBC 2.80 L Hgb 8.4 L Hct 25.5 L Plt Count 70 L Neutrophils % 92.0 H Neutrophils % (Manual) 86.6 H Lymphocytes % 3.4 L D Lymphocytes % (Manual) 4.1 L Monocytes % (Manual) 3 L D Sodium 147 H Chloride 111 H Anion Gap 5 L BUN 30 H Creatinine 0.5 L Random Glucose 165 H Calcium 7.7 L Total Protein 4.6 L Albumin 2.0 L Laboratory Tests 03/11/18 03/13/18 03/25/18 05:30 05:30 09:00 TSH 0.12 L D 0.24 L D Free T4 1.02 Free T3 2.2 impression/ euthyroid sick syndrome overall condition copd,chf likely cause of abnormal suppression of tsh free t3 normal free t4 normal tsh not consistant will not need thyroid intervention
[2018-03-28] MEDS ORDERED: BISACODYL 5 MG TABLET.DR (FP) PO ONE (19:30)
[2018-03-28] MEDS: ATORVASTATIN CA 10 MG TABLET (FP) PO SCH (22:40)
[2018-03-29] MEDS: methylPREDNISolone NA SUCC 40 MG/1 ML VIAL IVPUSH SCH ×3 (02:02→22:14)
[2018-03-29] MEDS: INSULIN SLIDING SCALE (NOVOLOG) 1 VIAL SQ SCH ×4 (06:48→22:36)
[2018-03-29] MEDS: ARFORMOTEROL TARTRATE 15 MCG/2 ML VIAL NEB SCH ×2 (08:00→21:15)
[2018-03-29] MEDS: ALBUTEROL SO4 0.083% IH SOL 2.5 MG/3 ML VIAL.NEB. NEB SCH ×4 (08:01→20:30)
[2018-03-29] MEDS: dilTIAZem HCL 50 MG/10 ML - 10 ML VIAL IVPUSH PRN (09:20)
--- NOTE | 2018-03-29 09:26 | PN ---
Progress Note, Physician - Current Medication List Current Medications: Active Medications Acetaminophen (Ofirmev Injection -) 1,000 mg IVPB Q6H PRN PRN Reason: FEVER Last Admin: 03/27/18 17:27 Dose: 1,000 mg Albuterol Sulfate (Ventolin 0.083% Nebulizer Soln -) 1 amp NEB RQID [facility] Last Admin: 03/29/18 08:01 Dose: Not Given Alprazolam (Xanax -) 0.5 mg PO Q8H PRN PRN Reason: ANXIETY Last Admin: 03/28/18 18:31 Dose: 0.5 mg Amino Acids (Prosource No Carb Liquid Pkt) 30 ml PO BID@0800,1730 [facility] Last Admin: 03/28/18 17:51 Dose: 30 ml Apixaban (Eliquis -) 5 mg PO BID [facility] Last Admin: 03/28/18 22:40 Dose: 5 mg Arformoterol Tartrate (Brovana (Restricted To Pulmonology/Resp) -) 1 amp NEB RBID [facility] Last Admin: 03/29/18 08:00 Dose: 1 amp Atorvastatin Calcium (Lipitor -) 10 mg PO HS [facility] Last Admin: 03/28/18 22:40 Dose: 10 mg Bisacodyl (Dulcolax -) 5 mg PO DAILY PRN PRN Reason: CONSTIPATION Budesonide/Formoterol Fumarate (Symbicort 160/4.5mcg -) 2 puff IH BID [facility] Last Admin: 03/28/18 22:40 Dose: 2 inh Diltiazem HCl (Cardizem Cd -) 120 mg PO BID [facility] Last Admin: 03/28/18 22:40 Dose: 120 mg Diltiazem HCl (Cardizem Injection -) 10 mg IVPUSH Q4H PRN PRN Reason: TACHYCARDIA Last Admin: 03/29/18 09:20 Dose: 10 mg Escitalopram Oxalate (Lexapro -) 10 mg PO DAILY [facility] Last Admin: 03/28/18 09:59 Dose: 10 mg Ferrous Sulfate (Feosol -) 325 mg PO DAILY [facility] Last Admin: 03/28/18 10:00 Dose: Not Given Sodium Chloride (Normal Saline -) 1,000 mls @ 125 mls/hr IV ASDIR [facility] Last Admin: 03/28/18 22:41 Dose: 125 mls/hr Daptomycin 500 mg/ Sodium (Chloride) 50 mls @ 50 mls/hr IVPB DAILY [facility]; Protocol Last Admin: 03/28/18 12:49 Dose: 50 mls/hr Insulin Aspart (Novolog Vial Sliding Scale -) 1 vial SQ ACHS [facility]; Protocol Last Admin: 03/29/18 06:48 Dose: Not Given Lactobacillus Acidophilus (Bacid -) 1 tab PO DAILY [facility] Methylprednisolone Sodium Succinate (Solu-Medrol -) 40 mg IVPUSH Q8H-IV [facility] Last Admin: 03/29/18 02:02 Dose: 40 mg Tamsulosin HCl (Flomax -) 0.4 mg PO DAILY@0830 [facility] Last Admin: 03/28/18 09:59 Dose: 0.4 mg Tiotropium [place] (Spiriva Respimat) 2 puff IH DAILY [facility] Last Admin: 03/28/18 10:01 Dose: 2 puff - Objective Vital Signs: Vital Signs Temperature 97.4 F L 03/29/18 02:00 Pulse Rate 72 03/29/18 06:00 Respiratory Rate 20 03/29/18 08:21 Blood Pressure 118/55 L 03/29/18 06:00 O2 Sat by Pulse Oximetry (%) 98 03/29/18 08:21 Cardiovascular: Yes: Tachycardia, Pulse Irregular, S1 Respiratory: Yes: Diminished, On Nasal O2 Gastrointestinal: Yes: Normal Bowel Sounds, Soft Labs: CBC, BMP 03/28/18 05:45 03/28/18 05:45 INR, PTT INR 1.37 (0.83-1.09) H 03/26/18 05:30 Fibrinogen 668.0 mg/dL (238-498) H 03/24/18 15:30 Assessment/Plan - Problems (1) Sepsis Assessment/Plan: -Lactic acid normal -Afebrile -BC: Microbiology 03/25/18 12:20 Blood Culture - Preliminary Blood - Peripheral Venous Presumptive Mrsa (Pbp2a Pos) 03/25/18 12:05 Blood Culture - Preliminary Blood - Peripheral Venous Presumptive Mrsa (Pbp2a Pos) 03/24/18 11:53 Blood Culture - Preliminary Blood - Peripheral Venous Presumptive Mrsa (Pbp2a Pos) 03/24/18 11:37 Blood Culture - Preliminary Blood - Peripheral Venous Presumptive Mrsa (Pbp2a Pos) -On IV daptomycin 500 mg daily -ID on board Code(s): A41.9 - SEPSIS, UNSPECIFIED ORGANISM (2) Acute and chronic respiratory failure Assessment/Plan: -Seen by pulmonary -BIPAP, to keep SpO2 > 90% -Solumedrol 40 mg Q8H -Bronchodilators -IV abx Code(s): J96.20 - ACUTE AND CHR RESP FAILURE, UNSP W HYPOXIA OR HYPERCAPNIA Qualifiers: Respiratory failure complication: hypoxia and hypercapnia Qualified Code(s) : J96.21 - Acute and chronic respiratory failure with hypoxia; J96.22 - Acute and chronic respiratory failure with hypercapnia (3) COPD exacerbation Assessment/Plan: -Pulmonary on board -BIPAP -Bronchodilators -Solumedrol 40 mg Q8H -Nasal O2 to keep SpO2 >90% Code(s): J44.1 - CHRONIC OBSTRUCTIVE PULMONARY DISEASE W (ACUTE) EXACERBATION (4) Paroxysmal atrial fibrillation with rapid ventricular response Assessment/Plan: -Tele monitoring--rapid today--gave additional 10 cardizem ivp--labs ordered -On ELiquis 5 mg po bid -cardiology on board -BP low at the moment -On diltiazem CD 120 mg po bid -Diltiazem IVP 10 mg IVP prn ordered Code(s): I48.0 - PAROXYSMAL ATRIAL FIBRILLATION (5) Elevated troponin Assessment/Plan: -likely 2/2 to demand ischemia -repeat troponin series Q8H x 3-trending down Code(s): R74.8 - ABNORMAL LEVELS OF OTHER SERUM ENZYMES (6) Hypoalbuminemia Assessment/Plan: -due to decreased PO intake -Prosource Code(s): E88.09 - OTH DISORDERS OF PLASMA-PROTEIN METABOLISM, NEC (7) Protein calorie malnutrition Assessment/Plan: -due to decreased PO intake -Prosource Code(s): E46 - UNSPECIFIED PROTEIN-CALORIE MALNUTRITION (8) Anemia Assessment/Plan: -B12, Thyroid profile and folic acid unremarkable -Iron % low-unable to give venofer due to bacteremia -start ferrous sulfate 325 mg po daily -check stool OB-still pending -monitor trend Code(s): D64.9 - ANEMIA, UNSPECIFIED Qualifiers: Anemia type: unspecified type Qualified Code(s): D64.9 - Anemia, unspecified (9) Anxiety Assessment/Plan: -Increase alprazolam to 0.5 mg po TID PRN Code(s): F41.9 - ANXIETY DISORDER, UNSPECIFIED (10) Hyperthyroidism Assessment/Plan: -borderline -Endocrinology consult ordered Code(s): E05.90 - THYROTOXICOSIS, UNSP WITHOUT THYROTOXIC CRISIS OR STORM Assessment/Plan see problem list Physical therapy
[2018-03-29 09:37] LABS: HEMATOCRIT 25.2 % (35.4-49); LYMPH % 1.9 % (8-40); MCH 29.3 pg (25.7-33.7); MCHC 31.8 g/dl (32.0-35.9); MEAN CELL VOLUME 92.3 fl (80-96); MEAN PLT VOLUME 10.8 fl (7.5-11.1); MONO % 3.8 % (3.8-10.2); NEUT % 94.3 % (42.8-82.8); PLATELET COUNT 72 K/MM3 (134-434); RBC 2.73 M/mm3 (4.00-5.60); RDW 15.5 % (11.9-15.9); WHITE BLOOD COUNT 5.2 K/mm3 (4.0-10.0)
[2018-03-29] MEDS: LACTOBACILLUS ACIDOPHILUS 1 TABLET PO SCH (09:43)
[2018-03-29] MEDS: AMINO ACIDS/PROTEIN HYDROLYS 30 ML LIQUID.PKT PO SCH ×2 (09:43→17:18)
[2018-03-29] MEDS: TAMSULOSIN HCL 0.4 MG CAP PO SCH (09:43)
[2018-03-29] MEDS: APIXABAN 5 MG TABLET PO SCH ×2 (09:43→22:13)
[2018-03-29] MEDS: ESCITALOPRAM OXALATE 10 MG TABLET (FP) PO SCH (09:44)
[2018-03-29] MEDS: FERROUS SO4 325 MG TABLET (FP) PO SCH (09:44)
[2018-03-29] MEDS: TIOTROPIUM BROMIDE 2.5 MCG (SPIRIVA) RESPIMAT INHALER IH SCH (09:44)
[2018-03-29] MEDS: DAPTOMYCIN 500 MG in SODIUM CHLORIDE 50 ML IVPB SCH ×2 (09:44→14:16)
[2018-03-29] MEDS: BUDESONIDE/FORMETEROL FUMARATE 160/4.5 mcg INHALER IH SCH ×2 (09:45→22:14)
--- NOTE | 2018-03-29 09:47 | PN ---
Progress Note, Physician History of Present Illness: Feels weak, afebrile, rapid afib. - Current Medication List Current Medications: Active Medications Acetaminophen (Ofirmev Injection -) 1,000 mg IVPB Q6H PRN PRN Reason: FEVER Last Admin: 03/27/18 17:27 Dose: 1,000 mg Albuterol Sulfate (Ventolin 0.083% Nebulizer Soln -) 1 amp NEB RQID [facility] Last Admin: 03/29/18 08:01 Dose: Not Given Alprazolam (Xanax -) 0.5 mg PO Q8H PRN PRN Reason: ANXIETY Last Admin: 03/28/18 18:31 Dose: 0.5 mg Amino Acids (Prosource No Carb Liquid Pkt) 30 ml PO BID@0800,1730 [facility] Last Admin: 03/29/18 09:43 Dose: 30 ml Apixaban (Eliquis -) 5 mg PO BID [facility] Last Admin: 03/29/18 09:43 Dose: 5 mg Arformoterol Tartrate (Brovana (Restricted To Pulmonology/Resp) -) 1 amp NEB RBID [facility] Last Admin: 03/29/18 08:00 Dose: 1 amp Atorvastatin Calcium (Lipitor -) 10 mg PO HS [facility] Last Admin: 03/28/18 22:40 Dose: 10 mg Bisacodyl (Dulcolax -) 5 mg PO DAILY PRN PRN Reason: CONSTIPATION Budesonide/Formoterol Fumarate (Symbicort 160/4.5mcg -) 2 puff IH BID [facility] Last Admin: 03/29/18 09:45 Dose: 2 inh Diltiazem HCl (Cardizem Cd -) 120 mg PO BID [facility] Last Admin: 03/29/18 09:43 Dose: 120 mg Diltiazem HCl (Cardizem Injection -) 10 mg IVPUSH Q4H PRN PRN Reason: TACHYCARDIA Last Admin: 03/29/18 09:20 Dose: 10 mg Escitalopram Oxalate (Lexapro -) 10 mg PO DAILY [facility] Last Admin: 03/29/18 09:44 Dose: 10 mg Ferrous Sulfate (Feosol -) 325 mg PO DAILY [facility] Last Admin: 03/29/18 09:44 Dose: 325 mg Sodium Chloride (Normal Saline -) 1,000 mls @ 125 mls/hr IV ASDIR [facility] Last Admin: 10/28/18 22:41 Dose: 125 mls/hr Daptomycin 500 mg/ Sodium (Chloride) 50 mls @ 50 mls/hr IVPB DAILY [facility]; Protocol Last Admin: 03/29/18 09:44 Dose: Not Given Insulin Aspart (Novolog Vial Sliding Scale -) 1 vial SQ ACHS [facility]; Protocol Last Admin: 03/29/18 06:48 Dose: Not Given Lactobacillus Acidophilus (Bacid -) 1 tab PO DAILY [facility] Last Admin: 03/29/18 09:43 Dose: 1 tab Methylprednisolone Sodium Succinate (Solu-Medrol -) 40 mg IVPUSH Q8H-IV [facility] Last Admin: 03/29/18 02:02 Dose: 40 mg Tamsulosin HCl (Flomax -) 0.4 mg PO DAILY@0830 [facility] Last Admin: 03/29/18 09:43 Dose: 0.4 mg Tiotropium [place] (Spiriva Respimat) 2 puff IH DAILY [facility] Last Admin: 03/29/18 09:44 Dose: 2 puff - Objective Vital Signs: Vital Signs Temperature 97.4 F L 03/29/18 02:00 Pulse Rate 72 03/29/18 06:00 Respiratory Rate 20 03/29/18 08:21 Blood Pressure 118/55 L 03/29/18 06:00 O2 Sat by Pulse Oximetry (%) 98 03/29/18 08:21 Constitutional: Yes: No Distress, Calm, Thin Neck: Yes: Supple Cardiovascular: Yes: Tachycardia, Pulse Irregular Respiratory: Yes: Regular, Diminished, On Nasal O2 Gastrointestinal: Yes: Soft, Hypoactive Bowel Sounds Edema: No Edema: LUE: 1+, RUE: 1+ Labs: CBC, BMP 03/29/18 05:30 INR, PTT INR 1.37 (0.83-1.09) H 03/26/18 05:30 Fibrinogen 668.0 mg/dL (238-498) H 03/24/18 15:30 - ....Imaging EKG: Report Reviewed (Tele: Rapid afib) Problem List - Problems (1) MRSA (methicillin resistant Staphylococcus aureus) infection Code(s): A49.02 - METHICILLIN RESIS STAPH INFECTION, UNSP SITE (2) Acute and chronic respiratory failure with hypercapnia Code(s): J96.22 - ACUTE AND CHRONIC RESPIRATORY FAILURE WITH HYPERCAPNIA (3) Arteriosclerotic heart disease (ASHD) Code(s): I25.10 - ATHSCL HEART DISEASE OF [place] CORONARY ARTERY W/O ANG PCTRS (4) COPD exacerbation Code(s): J44.1 - CHRONIC OBSTRUCTIVE PULMONARY DISEASE W (ACUTE) EXACERBATION (5) Diastolic dysfunction Code(s): I51.9 - HEART DISEASE, UNSPECIFIED (6) Hyperlipidemia Code(s): E78.5 - HYPERLIPIDEMIA, UNSPECIFIED Qualifiers: Hyperlipidemia type: pure hypercholesterolemia Qualified Code(s): E78.00 - Pure hypercholesterolemia, unspecified; E78.0 - Pure hypercholesterolemia (7) Paroxysmal atrial fibrillation with rapid ventricular response Code(s): I48.0 - PAROXYSMAL ATRIAL FIBRILLATION Assessment/Plan 1. MRSA bacteremia of unclear source r/o endocarditis 2. Paroxysmal atrial fibrillation with RVR [id number] 3. Acute on Chronic Hypoxic and Hypercapneic Respiratory Failure 4. Acute exacerbation of advanced chronic obstructive pulmonary disease on home oxygen therapy with Pulmonary HTN 5. Atypical Mycobacterium 6. CAD non-obstructive coronary artery disease with demnd ischemia 7. Diastolic LV dysfunction with class 0-I NYHA classification LV failure, compensated/euvolemic 8. HTN 9. Hypercholesterolemia 10. RUL mass 11. Sick euthyroid syndrome 12. Thrombycytopenia referable to sepsis 13. Anemia PLAN: 1. Daptomycin with f/u C&S for clearance, judicious IVF, echo on Thursday, LUBNA if persistent bacteremia or fevers 2. Continue Cardizem CD 120 bid 3. Slow IV steroid taper, bronchodilators, O2 to keep SpO2 >90%, Trilogy / BiPAP to assist in work of breathing as per the pulmonary 4. Given elevated risk score, continue Eliquis 5 bid with monitor hemoglobin and Plt 5. Continue Lipitor 10 qhs 6. Addition of ACEI or ARB hemodynamics permitting 7. DVT prophylaxis, OOB to chair
[2018-03-29 09:57] LABS: ALK PHOS 55 U/L (45-117); ANION GAP 5 MMOL/L (8-16); BILIRUBIN,TOTAL 0.3 mg/dL (0.2-1); BLOOD UREA NITROGEN 25 mg/dL (7-18); CALCIUM 7.2 mg/dL (8.5-10.1); CHLORIDE 114 mmol/L (98-107); CO2 32 mmol/L (21-32); CREATININE 0.3 mg/dL (0.55-1.3); GLUCOSE,RANDOM 155 mg/dL (74-106); POTASSIUM 3.9 mmol/L (3.5-5.1); SGOT/AST 17 U/L (15-37); SGPT/ALT 40 U/L (13-61); SODIUM 151 mmol/L (136-145); TOT PROT 4.6 g/dl (6.4-8.2)
--- NOTE | 2018-03-29 11:29 | PN ---
Progress Note, Physician History of Present Illness: pulmonary alert,weak,less dyspneic - Current Medication List Current Medications: Active Medications Acetaminophen (Ofirmev Injection -) 1,000 mg IVPB Q6H PRN PRN Reason: FEVER Last Admin: 03/27/18 17:27 Dose: 1,000 mg Albuterol Sulfate (Ventolin 0.083% Nebulizer Soln -) 1 amp NEB RQID [facility] Last Admin: 03/29/18 08:01 Dose: Not Given Alprazolam (Xanax -) 0.5 mg PO Q8H PRN PRN Reason: ANXIETY Last Admin: 03/28/18 18:31 Dose: 0.5 mg Amino Acids (Prosource No Carb Liquid Pkt) 30 ml PO BID@0800,1730 [facility] Last Admin: 03/29/18 09:43 Dose: 30 ml Apixaban (Eliquis -) 5 mg PO BID [facility] Last Admin: 03/29/18 09:43 Dose: 5 mg Arformoterol Tartrate (Brovana (Restricted To Pulmonology/Resp) -) 1 amp NEB RBID [facility] Last Admin: 03/29/18 08:00 Dose: 1 amp Atorvastatin Calcium (Lipitor -) 10 mg PO HS [facility] Last Admin: 03/28/18 22:40 Dose: 10 mg Bisacodyl (Dulcolax -) 5 mg PO DAILY PRN PRN Reason: CONSTIPATION Budesonide/Formoterol Fumarate (Symbicort 160/4.5mcg -) 2 puff IH BID [facility] Last Admin: 03/29/18 09:45 Dose: 2 inh Diltiazem HCl (Cardizem Cd -) 120 mg PO BID [facility] Last Admin: 03/29/18 09:43 Dose: 120 mg Diltiazem HCl (Cardizem Injection -) 10 mg IVPUSH Q4H PRN PRN Reason: TACHYCARDIA Last Admin: 03/29/18 09:20 Dose: 10 mg Escitalopram Oxalate (Lexapro -) 10 mg PO DAILY [facility] Last Admin: 03/29/18 09:44 Dose: 10 mg Ferrous Sulfate (Feosol -) 325 mg PO DAILY [facility] Last Admin: 03/29/18 09:44 Dose: 325 mg Sodium Chloride (Normal Saline -) 1,000 mls @ 125 mls/hr IV ASDIR [facility] Last Admin: 03/28/18 22:41 Dose: 125 mls/hr Daptomycin 500 mg/ Sodium (Chloride) 50 mls @ 50 mls/hr IVPB DAILY [facility]; Protocol Last Admin: 03/29/18 09:44 Dose: Not Given Insulin Aspart (Novolog Vial Sliding Scale -) 1 vial SQ ACHS [facility]; Protocol Last Admin: 03/29/18 11:08 Dose: Not Given Lactobacillus Acidophilus (Bacid -) 1 tab PO DAILY [facility] Last Admin: 03/29/18 09:43 Dose: 1 tab Methylprednisolone Sodium Succinate (Solu-Medrol -) 40 mg IVPUSH Q8H-IV [facility] Last Admin: 03/29/18 10:00 Dose: 40 mg Tamsulosin HCl (Flomax -) 0.4 mg PO DAILY@0830 [facility] Last Admin: 03/29/18 09:43 Dose: 0.4 mg Tiotropium [place] (Spiriva Respimat) 2 puff IH DAILY [facility] Last Admin: 03/29/18 09:44 Dose: 2 puff - Objective Vital Signs: Vital Signs Temperature 97.9 F 03/29/18 10:00 Pulse Rate 140 H 03/29/18 10:00 Respiratory Rate 22 H 03/29/18 10:00 Blood Pressure 117/67 03/29/18 10:00 O2 Sat by Pulse Oximetry (%) 98 03/29/18 08:21 Constitutional: Yes: Well Nourished, Calm Eyes: Yes: WNL HENT: Yes: WNL Neck: Yes: WNL Cardiovascular: Yes: Pulse Irregular, S1, S2 Respiratory: Yes: Diminished Gastrointestinal: Yes: Normal Bowel Sounds, Soft Extremities: Yes: WNL Edema: No Labs: CBC, BMP 03/29/18 05:30 03/29/18 05:30 INR, PTT INR 1.37 (0.83-1.09) H 03/26/18 05:30 Fibrinogen 668.0 mg/dL (238-498) H 03/24/18 15:30 Problem List - Problems (1) MRSA (methicillin resistant Staphylococcus aureus) infection Code(s): A49.02 - METHICILLIN RESIS STAPH INFECTION, UNSP SITE (2) Diarrhea Code(s): R19.7 - DIARRHEA, UNSPECIFIED (3) Sepsis Code(s): A41.9 - SEPSIS, UNSPECIFIED ORGANISM (4) Acute and chronic respiratory failure Code(s): J96.20 - ACUTE AND CHR RESP FAILURE, UNSP W HYPOXIA OR HYPERCAPNIA Qualifiers: Respiratory failure complication: hypoxia and hypercapnia Qualified Code(s) : J96.21 - Acute and chronic respiratory failure with hypoxia; J96.22 - Acute and chronic respiratory failure with hypercapnia (5) Acute and chronic respiratory failure with hypercapnia Code(s): J96.22 - ACUTE AND CHRONIC RESPIRATORY FAILURE WITH HYPERCAPNIA (6) Arteriosclerotic heart disease (ASHD) Code(s): I25.10 - ATHSCL HEART DISEASE OF [place] CORONARY ARTERY W/O ANG PCTRS (7) COPD exacerbation Code(s): J44.1 - CHRONIC OBSTRUCTIVE PULMONARY DISEASE W (ACUTE) EXACERBATION (8) Pulmonary hypertension Code(s): I27.20 - PULMONARY HYPERTENSION, UNSPECIFIED Assessment/Plan ASSESSMENT AND PLAN: Acute on Chronic Hypoxic Respiratory Failure Severe Sepsis MRAS bacteremia Atrial Fibrillation with RVR Acute COPD Exacerbation CAD LV Diastolic Dysfunction Pulmonary HTN Thrombocytopenia Anemia - antibiotics per ID - rate control - anticoagulation - taper Solumedrol - inhaled bronchodilators standing and PRN - Trilogy / BiPAP to assist in work of breathing - O2 to keep SpO2 >90% - monitor CBC, coags - aspiration precautions - normal transfusion threshold DR ARIAS
[2018-03-29 11:39] LABS: ANISOCYTOSIS 2+; MACROCYTOSIS 1+; PLATELET ESTIMATE DECREASED; TEAR DROP CELLS 1+
--- NOTE | 2018-03-29 11:58 | PN ---
Progress Note (short form) - Note Progress Note: awake,oob in chair back in rapid afib with dyspnea as well alert no complaints of back pain or abdominal pain Vital Signs Period Temp Pulse Resp BP Sys/Morgan Pulse Ox Last 24 Hr 97.4 F-98.3 F 68-140 18-22 104-130/43-67 97-98 cor-rrr lungs decreased bs at bases abd firm, nt ext +erythema left forearm, +ecchymoses CBC, BMP 03/29/18 05:30 03/29/18 05:30 Microbiology 03/27/18 06:10 Blood - Peripheral Venous Blood Culture - Preliminary Staphylococcus Latex Coag Pos 03/27/18 05:30 Blood - Peripheral Venous Blood Culture - Preliminary Staphylococcus Latex Coag Pos 03/25/18 12:20 Blood - Peripheral Venous Blood Culture - Final Mr S Aureus 03/25/18 12:05 Blood - Peripheral Venous Blood Culture - Final Mr S Aureus 03/24/18 11:53 Blood - Peripheral Venous Blood Culture - Final Presumptive Mrsa (Pbp2a Pos) 03/24/18 11:37 Blood - Peripheral Venous Blood Culture - Final Mr S Aureus 03/24/18 13:13 Urine - Urine - Catheterized Urine Culture - Final NO GROWTH OBTAINED Current Medications Acetaminophen (Ofirmev Injection -) 1,000 mg IVPB Q6H PRN PRN Reason: FEVER Last Admin: 03/27/18 17:27 Dose: 1,000 mg Albuterol Sulfate (Ventolin 0.083% Nebulizer Soln -) 1 amp NEB RQID [facility] Last Admin: 03/29/18 11:35 Dose: 1 amp Alprazolam (Xanax -) 0.5 mg PO Q8H PRN PRN Reason: ANXIETY Last Admin: 03/28/18 18:31 Dose: 0.5 mg Amino Acids (Prosource No Carb Liquid Pkt) 30 ml PO BID@0800,1730 [facility] Last Admin: 03/29/18 09:43 Dose: 30 ml Apixaban (Eliquis -) 5 mg PO BID [facility] Last Admin: 03/29/18 09:43 Dose: 5 mg Arformoterol Tartrate (Brovana (Restricted To Pulmonology/Resp) -) 1 amp NEB RBID [facility] Last Admin: 03/29/18 08:00 Dose: 1 amp Atorvastatin Calcium (Lipitor -) 10 mg PO HS [facility] Last Admin: 03/28/18 22:40 Dose: 10 mg Bisacodyl (Dulcolax -) 5 mg PO DAILY PRN PRN Reason: CONSTIPATION Budesonide/Formoterol Fumarate (Symbicort 160/4.5mcg -) 2 puff IH BID [facility] Last Admin: 03/29/18 09:45 Dose: 2 inh Diltiazem HCl (Cardizem Cd -) 120 mg PO BID [facility] Last Admin: 03/29/18 09:43 Dose: 120 mg Diltiazem HCl (Cardizem Injection -) 10 mg IVPUSH Q4H PRN PRN Reason: TACHYCARDIA Last Admin: 03/29/18 09:20 Dose: 10 mg Escitalopram Oxalate (Lexapro -) 10 mg PO DAILY [facility] Last Admin: 03/29/18 09:44 Dose: 10 mg Ferrous Sulfate (Feosol -) 325 mg PO DAILY [facility] Last Admin: 03/29/18 09:44 Dose: 325 mg Sodium Chloride (Normal Saline -) 1,000 mls @ 125 mls/hr IV ASDIR [facility] Last Admin: 03/28/18 22:41 Dose: 125 mls/hr Daptomycin 500 mg/ Sodium (Chloride) 50 mls @ 50 mls/hr IVPB DAILY [facility]; Protocol Last Admin: 03/29/18 09:44 Dose: Not Given Ceftaroline Fosamil 600 mg/ (Dextrose) 100 mls @ 100 mls/hr IVPB Q8H-IV [facility]; Protocol Insulin Aspart (Novolog Vial Sliding Scale -) 1 vial SQ ACHS [facility]; Protocol Last Admin: 03/29/18 11:08 Dose: Not Given Lactobacillus Acidophilus (Bacid -) 1 tab PO DAILY [facility] Last Admin: 03/29/18 09:43 Dose: 1 tab Methylprednisolone Sodium Succinate (Solu-Medrol -) 40 mg IVPUSH BID [facility] Tamsulosin HCl (Flomax -) 0.4 mg PO DAILY@0830 [facility] Last Admin: 03/29/18 09:43 Dose: 0.4 mg Tiotropium [place] (Spiriva Respimat) 2 puff IH DAILY [facility] Last Admin: 03/29/18 09:44 Dose: 2 puff a/p MRSA bacteremia- ?source concerning for endocarditis high grade bacteremia no clear source no back pain, no infiltrate on cxray continue daptomycin, add ceftaroline stat cxray stable thrombocytopenia would like to get ct scan chest/abd/pelvis when stable to be moved (currently rapid afib) esr/crp endstage copd rapid afib Problem List - Problems (1) Sepsis Code(s): A41.9 - SEPSIS, UNSPECIFIED ORGANISM (2) Fever Code(s): R50.9 - FEVER, UNSPECIFIED Qualifiers: Fever type: unspecified Qualified Code(s): R50.9 - Fever, unspecified (3) Acute and chronic respiratory failure Code(s): J96.20 - ACUTE AND CHR RESP FAILURE, UNSP W HYPOXIA OR HYPERCAPNIA Qualifiers: Respiratory failure complication: hypoxia and hypercapnia Qualified Code(s) : J96.21 - Acute and chronic respiratory failure with hypoxia; J96.22 - Acute and chronic respiratory failure with hypercapnia (4) Paroxysmal A-fib Code(s): I48.0 - PAROXYSMAL ATRIAL FIBRILLATION
[2018-03-29] MEDS ORDERED: PT OWN MED DRAWER 7, Y5N ONE (17:16)
[2018-03-29] MEDS: CEFTAROLINE FOSAMIL ACETATE 600 MG in DEXTROSE 5%-WATER - 100 ML IVPB SCH ×2 (17:18→17:19)
[2018-03-29] MEDS: ATORVASTATIN CA 10 MG TABLET (FP) PO SCH (22:13)
[2018-03-30] MEDS ORDERED: PT OWN MED DRAWER 7, Y5N ONE ×3 (01:02→17:48)
[2018-03-30] MEDS: CEFTAROLINE FOSAMIL ACETATE 600 MG in DEXTROSE 5%-WATER - 100 ML IVPB SCH ×3 (01:23→17:52)
[2018-03-30] MEDS: ALPRAZolam 0.25 MG TABLET PO PRN ×2 (04:55→09:15)
[2018-03-30 06:06] LABS: SERUM IRON SATURATION 19 % (15-55); TOTAL IRON BINDING CAPACITY 220 ug/dL (250-450); UIBC 178 ug/dL (111-343)
[2018-03-30] MEDS: INSULIN SLIDING SCALE (NOVOLOG) 1 VIAL SQ SCH ×4 (06:11→22:32)
[2018-03-30] MEDS: SODIUM CHLORIDE 1,000 ML IV SCH (06:40)
[2018-03-30] MEDS: ARFORMOTEROL TARTRATE 15 MCG/2 ML VIAL NEB SCH ×2 (08:04→21:30)
[2018-03-30] MEDS: ALBUTEROL SO4 0.083% IH SOL 2.5 MG/3 ML VIAL.NEB. NEB SCH ×4 (08:04→20:15)
[2018-03-30] MEDS: ESCITALOPRAM OXALATE 10 MG TABLET (FP) PO SCH (09:16)
[2018-03-30] MEDS: LACTOBACILLUS ACIDOPHILUS 1 TABLET PO SCH (09:16)
[2018-03-30] MEDS: DAPTOMYCIN 500 MG in SODIUM CHLORIDE 50 ML IVPB SCH ×2 (09:16→10:53)
[2018-03-30] MEDS: TAMSULOSIN HCL 0.4 MG CAP PO SCH (09:16)
[2018-03-30] MEDS: FERROUS SO4 325 MG TABLET (FP) PO SCH (09:16)
[2018-03-30] MEDS: APIXABAN 5 MG TABLET PO SCH ×2 (09:16→22:33)
[2018-03-30] MEDS: methylPREDNISolone NA SUCC 40 MG/1 ML VIAL IVPUSH SCH ×2 (09:16→22:33)
[2018-03-30] MEDS: AMINO ACIDS/PROTEIN HYDROLYS 30 ML LIQUID.PKT PO SCH ×2 (09:16→17:53)
[2018-03-30] MEDS: TIOTROPIUM BROMIDE 2.5 MCG (SPIRIVA) RESPIMAT INHALER IH SCH (09:17)
[2018-03-30] MEDS: BUDESONIDE/FORMETEROL FUMARATE 160/4.5 mcg INHALER IH SCH ×2 (09:17→22:33)
--- NOTE | 2018-03-30 09:49 | PN ---
Progress Note (short form) - Note Progress Note: Chief Complaint: Events noted, notes reviewed, recurrent atrial fibrillation with RVR this AM/sinus rhythm earlier, reporting persistent anxiety but improved , dyspnea persists, denies any chest pain History of Present Illness: Seen and examined on telemetry. Events noted, notes reviewed, recurrent atrial fibrillation with RVR this AM/sinus rhythm earlier, reporting persistent anxiety but improved, dyspnea persists, denies any chest pain - Current Medication List Current Medications Acetaminophen (Ofirmev Injection -) 1,000 mg IVPB Q6H PRN PRN Reason: FEVER Last Admin: 03/27/18 17:27 Dose: 1,000 mg Albuterol Sulfate (Ventolin 0.083% Nebulizer Soln -) 1 amp NEB RQID [facility] Last Admin: 03/30/18 08:04 Dose: 1 amp Alprazolam (Xanax -) 0.5 mg PO Q8H PRN PRN Reason: ANXIETY Last Admin: 03/30/18 09:15 Dose: 0.5 mg Amino Acids (Prosource No Carb Liquid Pkt) 30 ml PO BID@0800,1730 [facility] Last Admin: 03/30/18 09:16 Dose: 30 ml Apixaban (Eliquis -) 5 mg PO BID [facility] Last Admin: 03/30/18 09:16 Dose: 5 mg Arformoterol Tartrate (Brovana (Restricted To Pulmonology/Resp) -) 1 amp NEB RBID [facility] Last Admin: 03/30/18 08:04 Dose: 1 amp Atorvastatin Calcium (Lipitor -) 10 mg PO HS [facility] Last Admin: 03/29/18 22:13 Dose: 10 mg Bisacodyl (Dulcolax -) 5 mg PO DAILY PRN PRN Reason: CONSTIPATION Budesonide/Formoterol Fumarate (Symbicort 160/4.5mcg -) 2 puff IH BID [facility] Last Admin: 03/30/18 09:17 Dose: 1 inh Diltiazem HCl (Cardizem Cd -) 120 mg PO BID [facility] Last Admin: 03/30/18 09:16 Dose: 120 mg Diltiazem HCl (Cardizem Injection -) 10 mg IVPUSH Q4H PRN PRN Reason: TACHYCARDIA Last Admin: 03/29/18 09:20 Dose: 10 mg Escitalopram Oxalate (Lexapro -) 10 mg PO DAILY [facility] Last Admin: 03/30/18 09:16 Dose: 10 mg Ferrous Sulfate (Feosol -) 325 mg PO DAILY [facility] Last Admin: 03/30/18 09:16 Dose: 325 mg Sodium Chloride (Normal Saline -) 1,000 mls @ 125 mls/hr IV ASDIR [facility] Last Admin: 03/30/18 06:40 Dose: 125 mls/hr Daptomycin 500 mg/ Sodium (Chloride) 50 mls @ 50 mls/hr IVPB DAILY [facility]; Protocol Last Admin: 03/30/18 09:16 Dose: Not Given Ceftaroline Fosamil 600 mg/ (Dextrose) 100 mls @ 100 mls/hr IVPB Q8H-IV [facility]; Protocol Last Admin: 03/30/18 09:15 Dose: 100 mls/hr Insulin Aspart (Novolog Vial Sliding Scale -) 1 vial SQ ACHS [facility]; Protocol Last Admin: 03/30/18 06:11 Dose: Not Given Lactobacillus Acidophilus (Bacid -) 1 tab PO DAILY [facility] Last Admin: 03/30/18 09:16 Dose: 1 tab Methylprednisolone Sodium Succinate (Solu-Medrol -) 40 mg IVPUSH BID [facility] Last Admin: 03/30/18 09:16 Dose: 40 mg Tamsulosin HCl (Flomax -) 0.4 mg PO DAILY@0830 [facility] Last Admin: 03/30/18 09:16 Dose: 0.4 mg Tiotropium [place] (Spiriva Respimat) 2 puff IH DAILY [facility] Last Admin: 03/30/18 09:17 Dose: 2 puff - Review of Systems Cardiovascular: As noted above Respiratory: As noted above Gastrointestinal: denies: Nausea, Vomiting, Diarrhea, Constipation or Abdominal Pain Musculoskeletal: No symptoms reported Neurological: No symptoms reported - Objective Vital Signs: Last Vital Signs Temp Pulse Resp BP Pulse Ox 97.7 F 92 H 20 126/59 L 100 03/29/18 17:00 03/30/18 05:00 03/30/18 05:00 03/30/18 05:00 03/29/18 20:05 Intake & Output 03/27/18 03/28/18 03/29/18 03/30/18 23:59 23:59 23:59 23:59 Intake Total 2440 460 1760 1000 Output Total 800 1100 1300 Balance 1640 -669 550 1630 Weight 149 lb 3.2 oz 152 lb Neck: Supple Negative JVD Cardiovascular: S1 S2 Regular Rate Rhythm Respiratory: Diminished breath sounds Bilaterally Scattered Rhonchi Gastrointestinal: Soft Benign Normal Bowel Sounds Ext: Negative Edema Labs: CBC, BMP 03/29/18 05:30 03/29/18 05:30 Assessment/Plan ASSESSMENT: 1. MRSA bacteremia of unclear source 2. Paroxysmal atrial fibrillation recurrent arrhythmia with [id number] score of 2 on A/C 3. Acute on Chronic Hypoxic and Hypercapneic Respiratory Failure referable to 4. Acute exacerbation of advanced chronic obstructive pulmonary disease on home oxygen therapy with Pulmonary HTN 5. History of Atypical Mycobacterium 6. CAD non-obstructive coronary artery disease angina pectoris, stable 7. Diastolic LV dysfunction with class 0-I NYHA classification LV failure, compensated/euvolemic to volume contracted (considering the above noted Hypernatremia and pre-renal azotemia) 8. HTN 9. Hypercholesterolemia 10. Hypernatremia and pre-renal azotemia 11. Anemia and thrombocytopenia 12. RUL mass 13. Sick euthyroid syndrome PLAN: 1. Continue Cardizem CD, hemodynamics permitting 2. Continue A/C with Eliquis with caution considering the above noted anemia and thrombocytopenia 3. Continue Lipitor 4. Continue to hold Lasix 5. Consider the addition of ACEI or ARBS hemodynamics permitting 6. Antibiotics course as per ID service 7. Steroids and bronchodilators as per the pulmonary team 8. LUBNA if bacteremia or fevers recurs/persists 9. Change IV fluids to 1/3 NS considering the above noted Hypernatremia and pre- renal azotemia Ashley Bojorquez MD
[2018-03-30] MEDS ORDERED: DEXTROSE 5%-1/3 NS - 500 ML IV SCH (10:00)
[2018-03-30 10:28] LABS: BASO % 0.1 % (0-2.0); HEMATOCRIT 27.6 % (35.4-49); LYMPH % 3.1 % (8-40); MCH 29.9 pg (25.7-33.7); MCHC 32.7 g/dl (32.0-35.9); MEAN CELL VOLUME 91.3 fl (80-96); MEAN PLT VOLUME 10.5 fl (7.5-11.1); MONO % 1.8 % (3.8-10.2); PLATELET COUNT 84 K/MM3 (134-434); RBC 3.02 M/mm3 (4.00-5.60); RDW 14.9 % (11.9-15.9); WHITE BLOOD COUNT 5.7 K/mm3 (4.0-10.0)
--- NOTE | 2018-03-30 10:34 | PN ---
Progress Note, Physician - Current Medication List Current Medications: Active Medications Acetaminophen (Ofirmev Injection -) 1,000 mg IVPB Q6H PRN PRN Reason: FEVER Last Admin: 03/27/18 17:27 Dose: 1,000 mg Albuterol Sulfate (Ventolin 0.083% Nebulizer Soln -) 1 amp NEB RQID [facility] Last Admin: 03/30/18 08:04 Dose: 1 amp Amino Acids (Prosource No Carb Liquid Pkt) 30 ml PO BID@0800,1730 [facility] Last Admin: 03/30/18 09:16 Dose: 30 ml Apixaban (Eliquis -) 5 mg PO BID [facility] Last Admin: 03/30/18 09:16 Dose: 5 mg Arformoterol Tartrate (Brovana (Restricted To Pulmonology/Resp) -) 1 amp NEB RBID [facility] Last Admin: 03/30/18 08:04 Dose: 1 amp Atorvastatin Calcium (Lipitor -) 10 mg PO HS [facility] Last Admin: 03/29/18 22:13 Dose: 10 mg Bisacodyl (Dulcolax -) 5 mg PO DAILY PRN PRN Reason: CONSTIPATION Budesonide/Formoterol Fumarate (Symbicort 160/4.5mcg -) 2 puff IH BID [facility] Last Admin: 03/30/18 09:17 Dose: 1 inh Diltiazem HCl (Cardizem Cd -) 120 mg PO BID [facility] Last Admin: 03/30/18 09:16 Dose: 120 mg Diltiazem HCl (Cardizem Injection -) 10 mg IVPUSH Q4H PRN PRN Reason: TACHYCARDIA Last Admin: 03/29/18 09:20 Dose: 10 mg Escitalopram Oxalate (Lexapro -) 10 mg PO DAILY [facility] Last Admin: 03/30/18 09:16 Dose: 10 mg Ferrous Sulfate (Feosol -) 325 mg PO DAILY [facility] Last Admin: 03/30/18 09:16 Dose: 325 mg Daptomycin 500 mg/ Sodium (Chloride) 50 mls @ 50 mls/hr IVPB DAILY [facility]; Protocol Last Admin: 03/30/18 09:16 Dose: Not Given Ceftaroline Fosamil 600 mg/ (Dextrose) 100 mls @ 100 mls/hr IVPB Q8H-IV [facility]; Protocol Last Admin: 10/30/18 09:15 Dose: 100 mls/hr Dextrose/Sodium Chloride (D5-1/3ns -) 500 mls @ 125 mls/hr IV ASDIR [facility] Insulin Aspart (Novolog Vial Sliding Scale -) 1 vial SQ ACHS [facility]; Protocol Last Admin: 03/30/18 06:11 Dose: Not Given Lactobacillus Acidophilus (Bacid -) 1 tab PO DAILY [facility] Last Admin: 03/30/18 09:16 Dose: 1 tab Methylprednisolone Sodium Succinate (Solu-Medrol -) 40 mg IVPUSH BID [facility] Last Admin: 03/30/18 09:16 Dose: 40 mg Tamsulosin HCl (Flomax -) 0.4 mg PO DAILY@0830 [facility] Last Admin: 03/30/18 09:16 Dose: 0.4 mg Tiotropium [place] (Spiriva Respimat) 2 puff IH DAILY [facility] Last Admin: 03/30/18 09:17 Dose: 2 puff - Objective Vital Signs: Vital Signs Temperature 97.7 F 03/29/18 17:00 Pulse Rate 92 H 03/30/18 05:00 Respiratory Rate 20 03/30/18 05:00 Blood Pressure 126/59 L 03/30/18 05:00 O2 Sat by Pulse Oximetry (%) 100 03/29/18 20:05 Cardiovascular: Yes: S1, S2 Respiratory: Yes: On Nasal O2, SOB on Exertion Gastrointestinal: Yes: Normal Bowel Sounds, Soft Labs: INR, PTT INR 1.37 (0.83-1.09) H 03/26/18 05:30 Fibrinogen 668.0 mg/dL (238-498) H 03/24/18 15:30 Assessment/Plan - Problems (1) Sepsis Assessment/Plan: -Lactic acid normal -Afebrile -BC: Microbiology 03/25/18 12:20 Blood Culture - Preliminary Blood - Peripheral Venous Presumptive Mrsa (Pbp2a Pos) 03/25/18 12:05 Blood Culture - Preliminary Blood - Peripheral Venous Presumptive Mrsa (Pbp2a Pos) 03/24/18 11:53 Blood Culture - Preliminary Blood - Peripheral Venous Presumptive Mrsa (Pbp2a Pos) 03/24/18 11:37 Blood Culture - Preliminary Blood - Peripheral Venous Presumptive Mrsa (Pbp2a Pos) -On IV daptomycin 500 mg daily -ID on board Code(s): A41.9 - SEPSIS, UNSPECIFIED ORGANISM (2) Acute and chronic respiratory failure Assessment/Plan: -Seen by pulmonary -BIPAP, to keep SpO2 > 90% -Solumedrol 40 mg Q8H -Bronchodilators -IV abx Code(s): J96.20 - ACUTE AND CHR RESP FAILURE, UNSP W HYPOXIA OR HYPERCAPNIA Qualifiers: Respiratory failure complication: hypoxia and hypercapnia Qualified Code(s) : J96.21 - Acute and chronic respiratory failure with hypoxia; J96.22 - Acute and chronic respiratory failure with hypercapnia (3) COPD exacerbation Assessment/Plan: -Pulmonary on board -BIPAP -Bronchodilators -Solumedrol 40 mg Q8H -Nasal O2 to keep SpO2 >90% Code(s): J44.1 - CHRONIC OBSTRUCTIVE PULMONARY DISEASE W (ACUTE) EXACERBATION (4) Paroxysmal atrial fibrillation with rapid ventricular response Assessment/Plan: -Tele monitoring-- -On ELiquis 5 mg po bid -cardiology on board -BP low at the moment -On diltiazem CD 120 mg po bid -Diltiazem IVP 10 mg IVP prn ordered Code(s): I48.0 - PAROXYSMAL ATRIAL FIBRILLATION (5) Elevated troponin Assessment/Plan: -likely 2/2 to demand ischemia -repeat troponin series Q8H x 3-trending down Code(s): R74.8 - ABNORMAL LEVELS OF OTHER SERUM ENZYMES (6) Hypoalbuminemia Assessment/Plan: -due to decreased PO intake -Prosource Code(s): E88.09 - OTH DISORDERS OF PLASMA-PROTEIN METABOLISM, NEC (7) Protein calorie malnutrition Assessment/Plan: -due to decreased PO intake -Prosource Code(s): E46 - UNSPECIFIED PROTEIN-CALORIE MALNUTRITION (8) Anemia Assessment/Plan: -B12, Thyroid profile and folic acid unremarkable -Iron % low-unable to give venofer due to bacteremia -start ferrous sulfate 325 mg po daily -check stool OB-still pending -monitor trend Code(s): D64.9 - ANEMIA, UNSPECIFIED Qualifiers: Anemia type: unspecified type Qualified Code(s): D64.9 - Anemia, unspecified (9) Anxiety Assessment/Plan: -Increase alprazolam to 0.5 mg po TID PRN Code(s): F41.9 - ANXIETY DISORDER, UNSPECIFIED (10) Hyperthyroidism Assessment/Plan: -borderline -Endocrinology consult ordered Code(s): E05.90 - THYROTOXICOSIS, UNSP WITHOUT THYROTOXIC CRISIS OR STORM Assessment/Plan see problem list Physical therapy
[2018-03-30 10:52] LABS: ANION GAP 7 MMOL/L (8-16); BLOOD UREA NITROGEN 21 mg/dL (7-18); CALCIUM 7.5 mg/dL (8.5-10.1); CHLORIDE 110 mmol/L (98-107); CO2 30 mmol/L (21-32); CREATININE 0.3 mg/dL (0.55-1.3); GLUCOSE,RANDOM 164 mg/dL (74-106); POTASSIUM 3.9 mmol/L (3.5-5.1); SODIUM 147 mmol/L (136-145)
[2018-03-30 11:59] LABS: ANISOCYTOSIS 1+; MACROCYTOSIS 1+; PLATELET ESTIMATE DECREASED
--- NOTE | 2018-03-30 12:23 | PN ---
Progress Note, Physician History of Present Illness: pulmonary alert,weak,-resp distress - Current Medication List Current Medications: Active Medications Acetaminophen (Ofirmev Injection -) 1,000 mg IVPB Q6H PRN PRN Reason: FEVER Last Admin: 03/27/18 17:27 Dose: 1,000 mg Albuterol Sulfate (Ventolin 0.083% Nebulizer Soln -) 1 amp NEB RQID [facility] Last Admin: 03/30/18 11:59 Dose: 1 amp Amino Acids (Prosource No Carb Liquid Pkt) 30 ml PO BID@0800,1730 [facility] Last Admin: 03/30/18 09:16 Dose: 30 ml Apixaban (Eliquis -) 5 mg PO BID [facility] Last Admin: 03/30/18 09:16 Dose: 5 mg Arformoterol Tartrate (Brovana (Restricted To Pulmonology/Resp) -) 1 amp NEB RBID [facility] Last Admin: 03/30/18 08:04 Dose: 1 amp Atorvastatin Calcium (Lipitor -) 10 mg PO HS [facility] Last Admin: 03/29/18 22:13 Dose: 10 mg Bisacodyl (Dulcolax -) 5 mg PO DAILY PRN PRN Reason: CONSTIPATION Budesonide/Formoterol Fumarate (Symbicort 160/4.5mcg -) 2 puff IH BID [facility] Last Admin: 03/30/18 09:17 Dose: 1 inh Diltiazem HCl (Cardizem Cd -) 120 mg PO BID [facility] Last Admin: 03/30/18 09:16 Dose: 120 mg Diltiazem HCl (Cardizem Injection -) 10 mg IVPUSH Q4H PRN PRN Reason: TACHYCARDIA Last Admin: 03/29/18 09:20 Dose: 10 mg Escitalopram Oxalate (Lexapro -) 10 mg PO DAILY [facility] Last Admin: 03/30/18 09:16 Dose: 10 mg Ferrous Sulfate (Feosol -) 325 mg PO DAILY [facility] Last Admin: 03/30/18 09:16 Dose: 325 mg Daptomycin 500 mg/ Sodium (Chloride) 50 mls @ 50 mls/hr IVPB DAILY [facility]; Protocol Last Admin: 03/30/18 10:53 Dose: 50 mls/hr Ceftaroline Fosamil 600 mg/ (Dextrose) 100 mls @ 100 mls/hr IVPB Q8H-IV [facility]; Protocol Last Admin: 03/30/18 09:15 Dose: 100 mls/hr Insulin Aspart (Novolog Vial Sliding Scale -) 1 vial SQ ACHS [facility]; Protocol Last Admin: 03/30/18 10:36 Dose: Not Given Lactobacillus Acidophilus (Bacid -) 1 tab PO DAILY [facility] Last Admin: 03/30/18 09:16 Dose: 1 tab Methylprednisolone Sodium Succinate (Solu-Medrol -) 40 mg IVPUSH BID [facility] Last Admin: 03/30/18 09:16 Dose: 40 mg Tamsulosin HCl (Flomax -) 0.4 mg PO DAILY@0830 [facility] Last Admin: 03/30/18 09:16 Dose: 0.4 mg Tiotropium [place] (Spiriva Respimat) 2 puff IH DAILY [facility] Last Admin: 03/30/18 09:17 Dose: 2 puff - Objective Vital Signs: Vital Signs Temperature 98.0 F 03/30/18 09:00 Pulse Rate 96 H 03/30/18 09:00 Respiratory Rate 20 03/30/18 09:00 Blood Pressure 123/59 L 03/30/18 09:00 O2 Sat by Pulse Oximetry (%) 100 03/30/18 09:00 Constitutional: Yes: Well Nourished, Calm Eyes: Yes: WNL HENT: Yes: WNL Neck: Yes: WNL Cardiovascular: Yes: Pulse Irregular, S1, S2 Respiratory: Yes: Wheezes (few wheezes) Gastrointestinal: Yes: Normal Bowel Sounds, Soft Extremities: Yes: WNL Edema: No Labs: CBC, BMP 03/30/18 05:30 03/30/18 05:30 INR, PTT INR 1.37 (0.83-1.09) H 03/26/18 05:30 Fibrinogen 668.0 mg/dL (238-498) H 03/24/18 15:30 Problem List - Problems (1) MRSA (methicillin resistant Staphylococcus aureus) infection Code(s): A49.02 - METHICILLIN RESIS STAPH INFECTION, UNSP SITE (2) Diarrhea Code(s): R19.7 - DIARRHEA, UNSPECIFIED (3) Sepsis Code(s): A41.9 - SEPSIS, UNSPECIFIED ORGANISM (4) Acute and chronic respiratory failure Code(s): J96.20 - ACUTE AND CHR RESP FAILURE, UNSP W HYPOXIA OR HYPERCAPNIA Qualifiers: Respiratory failure complication: hypoxia and hypercapnia Qualified Code(s) : J96.21 - Acute and chronic respiratory failure with hypoxia; J96.22 - Acute and chronic respiratory failure with hypercapnia (5) Acute and chronic respiratory failure with hypercapnia Code(s): J96.22 - ACUTE AND CHRONIC RESPIRATORY FAILURE WITH HYPERCAPNIA (6) Arteriosclerotic heart disease (ASHD) Code(s): I25.10 - ATHSCL HEART DISEASE OF [place] CORONARY ARTERY W/O ANG PCTRS (7) COPD exacerbation Code(s): J44.1 - CHRONIC OBSTRUCTIVE PULMONARY DISEASE W (ACUTE) EXACERBATION (8) Pulmonary hypertension Code(s): I27.20 - PULMONARY HYPERTENSION, UNSPECIFIED Assessment/Plan ASSESSMENT AND PLAN: Acute on Chronic Hypoxic Respiratory Failure Severe Sepsis MRAS bacteremia Atrial Fibrillation with RVR Acute COPD Exacerbation CAD LV Diastolic Dysfunction Pulmonary HTN Thrombocytopenia Anemia - antibiotics per ID - rate control - anticoagulation - Solumedrol - inhaled bronchodilators standing and PRN - Trilogy / BiPAP to assist in work of breathing - O2 to keep SpO2 >90% - monitor CBC, coags - aspiration precautions - normal transfusion threshold DR ARIAS
[2018-03-30 16:30] LABS: THYROID STIM IMMUNOGLOBULIN <0.10 IU/L (0.00-0.55)
--- NOTE | 2018-03-30 16:53 | PN ---
Progress Note (short form) - Note Progress Note: fatigued episode of tachycardia this am improved now Vital Signs Period Temp Pulse Resp BP Sys/Morgan Pulse Ox Last 24 Hr 97.7 F-98.0 F 75-98 20-24 109-142/52-67 100-100 cor-rrr lungs decreased bs at bases abd soft,nt ext no edema +forearm ecchymoses CBC, BMP 03/30/18 05:30 Microbiology 03/29/18 05:45 Blood - Peripheral Venous Blood Culture - Preliminary Pending Organism 03/27/18 06:10 Blood - Peripheral Venous Blood Culture - Final S Aureus 03/27/18 05:30 Blood - Peripheral Venous Blood Culture - Final S Aureus 03/29/18 05:30 Blood - Peripheral Venous Blood Culture - Preliminary NO GROWTH OBTAINED AFTER 24 HOURS, INCUBATION TO CONTINUE FOR 4 DAYS. 03/25/18 12:20 Blood - Peripheral Venous Blood Culture - Final S Aureus 03/25/18 12:05 Blood - Peripheral Venous Blood Culture - Final S Aureus 03/24/18 11:53 Blood - Peripheral Venous Blood Culture - Final Presumptive Mrsa (Pbp2a Pos) 03/24/18 11:37 Blood - Peripheral Venous Blood Culture - Final S Aureus 03/24/18 13:13 Urine - Urine - Catheterized Urine Culture - Final NO GROWTH OBTAINED a/p MRSA bacteremia- ?source concerning for endocarditis no clear source no back pain, no new infiltrate on cxray continue daptomycin,/ceftaroline stable thrombocytopenia would like to get ct scan chest/abd/pelvis when stable to be moved -will discuss with cardiology and pulmonary duplex legs endstage copd rapid afib d/w at bedside Problem List - Problems (1) Sepsis Code(s): A41.9 - SEPSIS, UNSPECIFIED ORGANISM (2) Fever Code(s): R50.9 - FEVER, UNSPECIFIED Qualifiers: Fever type: unspecified Qualified Code(s): R50.9 - Fever, unspecified (3) Acute and chronic respiratory failure Code(s): J96.20 - ACUTE AND CHR RESP FAILURE, UNSP W HYPOXIA OR HYPERCAPNIA Qualifiers: Respiratory failure complication: hypoxia and hypercapnia Qualified Code(s) : J96.21 - Acute and chronic respiratory failure with hypoxia; J96.22 - Acute and chronic respiratory failure with hypercapnia (4) Paroxysmal A-fib Code(s): I48.0 - PAROXYSMAL ATRIAL FIBRILLATION
[2018-03-30 17:39] LABS: ANION GAP 4 MMOL/L (8-16); BLOOD UREA NITROGEN 20 mg/dL (7-18); CALCIUM 7.6 mg/dL (8.5-10.1); CHLORIDE 108 mmol/L (98-107); CO2 34 mmol/L (21-32); CREATININE 0.4 mg/dL (0.55-1.3); GLUCOSE,RANDOM 188 mg/dL (74-106); POTASSIUM 3.9 mmol/L (3.5-5.1); SODIUM 145 mmol/L (136-145)
[2018-03-30] MEDS: NYSTATIN 500,000 UNITS/5 ML SUSPENSION PO SCH (17:52)
--- NOTE | 2018-03-30 18:29 | PN ---
Progress Note (short form) - Note Progress Note: Patient was seen with his . He is anxious and has experienced panic attacks. We discussed the use of deep breathing and positive self statements. He practiced the interventions and seemed to benefit. His was very supportive. She asked if I could see him in my office upon discharge and I indicated that it would be possible.
[2018-03-30] MEDS: ATORVASTATIN CA 10 MG TABLET (FP) PO SCH (22:33)
[2018-03-31] MEDS: NYSTATIN 500,000 UNITS/5 ML SUSPENSION PO SCH ×4 (00:20→17:04)
[2018-03-31] MEDS ORDERED: PT OWN MED DRAWER 7, Y5N ONE ×3 (02:25→10:45)
[2018-03-31] MEDS: CEFTAROLINE FOSAMIL ACETATE 600 MG in DEXTROSE 5%-WATER - 100 ML IVPB SCH ×3 (02:30→17:10)
[2018-03-31] MEDS: INSULIN SLIDING SCALE (NOVOLOG) 1 VIAL SQ SCH ×4 (06:35→22:20)
[2018-03-31 06:43] LABS: BASO % 0.1 % (0-2.0); HEMATOCRIT 24.4 % (35.4-49); HEMOGLOBIN 7.8 GM/dL (11.7-16.9); LYMPH % 3.2 % (8-40); MCH 29.6 pg (25.7-33.7); MCHC 32.1 g/dl (32.0-35.9); MEAN CELL VOLUME 92.3 fl (80-96); MONO % 1.7 % (3.8-10.2); PLATELET COUNT 66 K/MM3 (134-434); RBC 2.64 M/mm3 (4.00-5.60); RDW 14.8 % (11.9-15.9); WHITE BLOOD COUNT 4.9 K/mm3 (4.0-10.0)
[2018-03-31 07:19] LABS: ANION GAP 5 MMOL/L (8-16); BLOOD UREA NITROGEN 22 mg/dL (7-18); CALCIUM 7.3 mg/dL (8.5-10.1); CHLORIDE 105 mmol/L (98-107); CO2 34 mmol/L (21-32); CREATININE 0.4 mg/dL (0.55-1.3); GLUCOSE,RANDOM 204 mg/dL (74-106); SODIUM 144 mmol/L (136-145)
[2018-03-31] MEDS: ARFORMOTEROL TARTRATE 15 MCG/2 ML VIAL NEB SCH ×2 (07:44→21:45)
[2018-03-31 09:26] LABS: ANISOCYTOSIS 1+; MACROCYTOSIS 1+; OVALOCYTE 1+; PLATELET ESTIMATE DECREASED
[2018-03-31] MEDS ORDERED: FUROSEMIDE 40 MG/4 ML INJECTABLE VIAL IVPUSH ONE (09:43)
[2018-03-31] MEDS: AMINO ACIDS/PROTEIN HYDROLYS 30 ML LIQUID.PKT PO SCH ×2 (10:39→17:10)
[2018-03-31] MEDS: methylPREDNISolone NA SUCC 40 MG/1 ML VIAL IVPUSH SCH ×2 (10:40→22:21)
[2018-03-31] MEDS: FERROUS SO4 325 MG TABLET (FP) PO SCH (10:40)
[2018-03-31] MEDS: TAMSULOSIN HCL 0.4 MG CAP PO SCH (10:40)
[2018-03-31] MEDS: ESCITALOPRAM OXALATE 10 MG TABLET (FP) PO SCH (10:40)
[2018-03-31] MEDS: LACTOBACILLUS ACIDOPHILUS 1 TABLET PO SCH (10:40)
[2018-03-31] MEDS: TIOTROPIUM BROMIDE 2.5 MCG (SPIRIVA) RESPIMAT INHALER IH SCH (10:41)
[2018-03-31] MEDS: BUDESONIDE/FORMETEROL FUMARATE 160/4.5 mcg INHALER IH SCH ×2 (10:41→22:21)
--- NOTE | 2018-03-31 10:44 | PN ---
Progress Note, Physician History of Present Illness: Feels weak, afebrile, rapid afib despite oral cardizem. - Current Medication List Current Medications: Active Medications Amino Acids (Prosource No Carb Liquid Pkt) 30 ml PO BID@0800,1730 [facility] Last Admin: 03/31/18 10:39 Dose: 30 ml Arformoterol Tartrate (Brovana (Restricted To Pulmonology/Resp) -) 1 amp NEB RBID [facility] Last Admin: 03/31/18 07:44 Dose: 1 amp Atorvastatin Calcium (Lipitor -) 10 mg PO HS [facility] Last Admin: 03/30/18 22:33 Dose: 10 mg Bisacodyl (Dulcolax -) 5 mg PO DAILY PRN PRN Reason: CONSTIPATION Budesonide/Formoterol Fumarate (Symbicort 160/4.5mcg -) 2 puff IH BID [facility] Last Admin: 03/31/18 10:41 Dose: 2 inh Diltiazem HCl (Cardizem Cd -) 120 mg PO BID [facility] Last Admin: 03/31/18 10:40 Dose: 120 mg Diltiazem HCl (Cardizem Injection -) 10 mg IVPUSH Q4H PRN PRN Reason: TACHYCARDIA Last Admin: 03/29/18 09:20 Dose: 10 mg Escitalopram Oxalate (Lexapro -) 20 mg PO DAILY [facility] Last Admin: 03/31/18 10:40 Dose: 20 mg Ferrous Sulfate (Feosol -) 325 mg PO DAILY [facility] Last Admin: 03/31/18 10:40 Dose: 325 mg Daptomycin 500 mg/ Sodium (Chloride) 50 mls @ 50 mls/hr IVPB DAILY [facility]; Protocol Last Admin: 03/30/18 10:53 Dose: 50 mls/hr Ceftaroline Fosamil 600 mg/ (Dextrose) 100 mls @ 100 mls/hr IVPB Q8H-IV [facility]; Protocol Last Admin: 03/31/18 02:30 Dose: 100 mls/hr Insulin Aspart (Novolog Vial Sliding Scale -) 1 vial SQ ACHS [facility]; Protocol Last Admin: 03/31/18 06:35 Dose: Not Given Lactobacillus Acidophilus (Bacid -) 1 tab PO DAILY [facility] Last Admin: 03/31/18 10:40 Dose: 1 tab Methylprednisolone Sodium Succinate (Solu-Medrol -) 40 mg IVPUSH BID [facility] Last Admin: 03/31/18 10:40 Dose: 40 mg Nystatin (Nystatin Oral Suspension -) 500,000 units PO Q6HPO [facility] Last Admin: 03/31/18 06:34 Dose: 500,000 units Tamsulosin HCl (Flomax -) 0.4 mg PO DAILY@0830 [facility] Last Admin: 03/31/18 10:40 Dose: 0.4 mg Tiotropium [place] (Spiriva Respimat) 2 puff IH DAILY [facility] Last Admin: 03/31/18 10:41 Dose: 2 puff - Objective Vital Signs: Vital Signs Temperature 97.2 F L 03/31/18 06:00 Pulse Rate 116 H 03/31/18 06:00 Respiratory Rate 20 03/31/18 06:00 Blood Pressure 125/60 03/31/18 06:00 O2 Sat by Pulse Oximetry (%) 98 03/30/18 21:00 Constitutional: Yes: No Distress, Anxious, Thin Neck: Yes: Supple Cardiovascular: Yes: Tachycardia, Pulse Irregular Respiratory: Yes: Regular, Diminished, On Nasal O2 Gastrointestinal: Yes: Soft, Hypoactive Bowel Sounds Edema: No Labs: CBC, BMP 03/31/18 05:15 03/31/18 06:00 INR, PTT INR 1.37 (0.83-1.09) H 03/26/18 05:30 Fibrinogen 668.0 mg/dL (238-498) H 03/24/18 15:30 - ....Imaging EKG: Report Reviewed (Tele: Rapid afib) Problem List - Problems (1) MRSA (methicillin resistant Staphylococcus aureus) infection Code(s): A49.02 - METHICILLIN RESIS STAPH INFECTION, UNSP SITE (2) Acute and chronic respiratory failure with hypercapnia Code(s): J96.22 - ACUTE AND CHRONIC RESPIRATORY FAILURE WITH HYPERCAPNIA (3) Arteriosclerotic heart disease (ASHD) Code(s): I25.10 - ATHSCL HEART DISEASE OF [place] CORONARY ARTERY W/O ANG PCTRS (4) COPD exacerbation Code(s): J44.1 - CHRONIC OBSTRUCTIVE PULMONARY DISEASE W (ACUTE) EXACERBATION (5) Diastolic dysfunction Code(s): I51.9 - HEART DISEASE, UNSPECIFIED (6) Hyperlipidemia Code(s): E78.5 - HYPERLIPIDEMIA, UNSPECIFIED Qualifiers: Hyperlipidemia type: pure hypercholesterolemia Qualified Code(s): E78.00 - Pure hypercholesterolemia, unspecified; E78.0 - Pure hypercholesterolemia (7) Paroxysmal atrial fibrillation with rapid ventricular response Code(s): I48.0 - PAROXYSMAL ATRIAL FIBRILLATION Assessment/Plan 1. MRSA bacteremia of unclear source 2. Paroxysmal atrial fibrillation with RVR [id number] 3. Acute on Chronic Hypoxic and Hypercapneic Respiratory Failure 4. 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 Diastolic LV dysfunction with class 0-I NYHA classification LV failure, compensated/euvolemic 8. HTN 9. Hypercholesterolemia 10. RUL mass 11. Sick euthyroid syndrome 12. Thrombycytopenia referable to sepsis 13. Anemia PLAN: 1. Daptomycin and Ceftaroline with f/u C&S for clearance, f/u chest and abd/ pelvic CT, LUBNA if persistent bacteremia or fevers 2. Change to Cardizem gtt with uptitration as needed for improved HR control 3. Slow IV steroid taper, bronchodilators, O2 to keep SpO2 >90%, Trilogy / BiPAP as needed to assist in work of breathing as per the pulmonary 4. Given elevated risk score, continue Eliquis 5 bid with monitor hemoglobin and Plt, transfuse pRBC to maintain Hgb>8.0 5. Continue Lipitor 10 qhs 6. Addition of ACEI or ARB hemodynamics permitting 7. DVT prophylaxis, OOB to chair
[2018-03-31] MEDS: DAPTOMYCIN 500 MG in SODIUM CHLORIDE 50 ML IVPB SCH (10:47)
[2018-03-31] MEDS ORDERED: dilTIAZem HCL 25 MG/5 ML - 5 ML VIAL IVPUSH ONE (10:54)
[2018-03-31 11:06] LABS: BASO % 0.6 % (0-2.0); HEMATOCRIT 26.6 % (35.4-49); HEMOGLOBIN 8.5 GM/dL (11.7-16.9); LYMPH % 2.6 % (8-40); MCH 29.6 pg (25.7-33.7); MCHC 31.9 g/dl (32.0-35.9); MEAN CELL VOLUME 92.6 fl (80-96); MEAN PLT VOLUME 10.1 fl (7.5-11.1); MONO % 1.5 % (3.8-10.2); NEUT % 95.3 % (42.8-82.8); PLATELET COUNT 86 K/MM3 (134-434); RBC 2.88 M/mm3 (4.00-5.60); RDW 15.2 % (11.9-15.9); WHITE BLOOD COUNT 8.6 K/mm3 (4.0-10.0)
--- NOTE | 2018-03-31 11:06 | PN ---
Progress Note, Physician History of Present Illness: pulmonary alert,weak,-resp distress - Current Medication List Current Medications: Active Medications Amino Acids (Prosource No Carb Liquid Pkt) 30 ml PO BID@0800,1730 COUNTS INCLUDE 234 BEDS AT THE [facility] Last Admin: 03/31/18 10:39 Dose: 30 ml Arformoterol Tartrate (Brovana (Restricted To Pulmonology/Resp) -) 1 amp NEB RBID COUNTS INCLUDE 234 BEDS AT THE [facility] Last Admin: 03/31/18 07:44 Dose: 1 amp Atorvastatin Calcium (Lipitor -) 10 mg PO HS COUNTS INCLUDE 234 BEDS AT THE [facility] Last Admin: 03/30/18 22:33 Dose: 10 mg Bisacodyl (Dulcolax -) 5 mg PO DAILY PRN PRN Reason: CONSTIPATION Budesonide/Formoterol Fumarate (Symbicort 160/4.5mcg -) 2 puff IH BID COUNTS INCLUDE 234 BEDS AT THE [facility] Last Admin: 03/31/18 10:41 Dose: 2 inh Diltiazem HCl (Cardizem Injection -) 10 mg IVPUSH Q4H PRN PRN Reason: TACHYCARDIA Last Admin: 03/29/18 09:20 Dose: 10 mg Escitalopram Oxalate (Lexapro -) 20 mg PO DAILY COUNTS INCLUDE 234 BEDS AT THE [facility] Last Admin: 03/31/18 10:40 Dose: 20 mg Ferrous Sulfate (Feosol -) 325 mg PO DAILY COUNTS INCLUDE 234 BEDS AT THE [facility] Last Admin: 03/31/18 10:40 Dose: 325 mg Daptomycin 500 mg/ Sodium (Chloride) 50 mls @ 50 mls/hr IVPB DAILY COUNTS INCLUDE 234 BEDS AT THE [facility]; Protocol Last Admin: 03/31/18 10:47 Dose: 50 mls/hr Ceftaroline Fosamil 600 mg/ (Dextrose) 100 mls @ 100 mls/hr IVPB Q8H-IV TA; Protocol Last Admin: 03/31/18 10:47 Dose: 100 mls/hr Diltiazem HCl 125 mg/ Sodium (Chloride) 125 mls @ 5 mls/hr IVPB TITR COUNTS INCLUDE 234 BEDS AT THE [facility]; Protocol Insulin Aspart (Novolog Vial Sliding Scale -) 1 vial SQ ACHS COUNTS INCLUDE 234 BEDS AT THE [facility]; Protocol Last Admin: 03/31/18 06:35 Dose: Not Given Lactobacillus Acidophilus (Bacid -) 1 tab PO DAILY COUNTS INCLUDE 234 BEDS AT THE [facility] Last Admin: 03/31/18 10:40 Dose: 1 tab Methylprednisolone Sodium Succinate (Solu-Medrol -) 40 mg IVPUSH BID COUNTS INCLUDE 234 BEDS AT THE [facility] Last Admin: 03/31/18 10:40 Dose: 40 mg Nystatin (Nystatin Oral Suspension -) 500,000 units PO Q6HPO COUNTS INCLUDE 234 BEDS AT THE [facility] Last Admin: 03/31/18 06:34 Dose: 500,000 units Tamsulosin HCl (Flomax -) 0.4 mg PO DAILY@0830 COUNTS INCLUDE 234 BEDS AT THE [facility] Last Admin: 03/31/18 10:40 Dose: 0.4 mg Tiotropium [place] (Spiriva Respimat) 2 puff IH DAILY COUNTS INCLUDE 234 BEDS AT THE [facility] Last Admin: 03/31/18 10:41 Dose: 2 puff - Objective Vital Signs: Vital Signs Temperature 97.2 F L 03/31/18 06:00 Pulse Rate 116 H 03/31/18 06:00 Respiratory Rate 20 03/31/18 06:00 Blood Pressure 125/60 03/31/18 06:00 O2 Sat by Pulse Oximetry (%) 98 03/30/18 21:00 Constitutional: Yes: Calm, Thin Eyes: Yes: WNL HENT: Yes: WNL Neck: Yes: WNL Cardiovascular: Yes: Pulse Irregular, S1, S2 Respiratory: Yes: Wheezes (few wheezes) Gastrointestinal: Yes: Normal Bowel Sounds, Soft Extremities: Yes: WNL Edema: No Labs: CBC, BMP 03/31/18 06:00 INR, PTT INR 1.37 (0.83-1.09) H 03/26/18 05:30 Fibrinogen 668.0 mg/dL (238-498) H 03/24/18 15:30 Problem List - Problems (1) MRSA (methicillin resistant Staphylococcus aureus) infection Code(s): A49.02 - METHICILLIN RESIS STAPH INFECTION, UNSP SITE (2) Diarrhea Code(s): R19.7 - DIARRHEA, UNSPECIFIED (3) Sepsis Code(s): A41.9 - SEPSIS, UNSPECIFIED ORGANISM (4) Acute and chronic respiratory failure Code(s): J96.20 - ACUTE AND CHR RESP FAILURE, UNSP W HYPOXIA OR HYPERCAPNIA Qualifiers: Respiratory failure complication: hypoxia and hypercapnia Qualified Code(s) : J96.21 - Acute and chronic respiratory failure with hypoxia; J96.22 - Acute and chronic respiratory failure with hypercapnia (5) Acute and chronic respiratory failure with hypercapnia Code(s): J96.22 - ACUTE AND CHRONIC RESPIRATORY FAILURE WITH HYPERCAPNIA (6) Arteriosclerotic heart disease (ASHD) Code(s): I25.10 - ATHSCL HEART DISEASE OF [place] CORONARY ARTERY W/O ANG PCTRS (7) COPD exacerbation Code(s): J44.1 - CHRONIC OBSTRUCTIVE PULMONARY DISEASE W (ACUTE) EXACERBATION (8) Pulmonary hypertension Code(s): I27.20 - PULMONARY HYPERTENSION, UNSPECIFIED Assessment/Plan ASSESSMENT AND PLAN: Acute on Chronic Hypoxic Respiratory Failure improving Severe Sepsis MRAS bacteremia Atrial Fibrillation with RVR Acute COPD Exacerbation CAD LV Diastolic Dysfunction Pulmonary HTN Thrombocytopenia Anemia - antibiotics per ID - rate control - anticoagulation - Solumedrol - inhaled bronchodilators standing and PRN - Trilogy / BiPAP to assist in work of breathing - O2 to keep SpO2 >90% - monitor CBC, coags - aspiration precautions - normal transfusion threshold - chest ct DR ARIAS
[2018-03-31] MEDS: DILTIAZEM INJECTION 125 MG in SODIUM CHLORIDE 100 ML IVPB SCH (11:17)
[2018-03-31] MEDS ORDERED: ALPRAZolam 0.25 MG TABLET PO PRN (12:03)
--- NOTE | 2018-03-31 12:30 | CON.GI ---
Consult Consult Specialty:: Gastroenterology Referred by:: Dr Leslie Reason for Consultation:: anemia - History of Present Illness Chief Complaint: dyspnea History of Present Illness: 67M with advanced COPD who is [place] [facility] has a dwindling Hb. He denies any overt bleeding, He denies abdominal pain, dysphagia , early satiety or narrowed stools. He has chronic constipation. He has never had an EDF but an esophagram and UGI were normal in 2012. He last had a colonoscopy with Dr Rosen on 08/27/12 when a pedunculated descending colon polyp was removed and when moderate left colon diverticulosis was found. He believes that his mother of colon cancer age 67. He was seen by Dr Guerra in 05/17 when an EGD and colonoscopy were apparently entertained but never undertaken. - History Source History Provided By: Patient Limitations to Obtaining History: No Limitations - Past Medical History Cardio/Vascular: Yes: AFIB (paroxysmal), CAD, CHF (end diastlic), HTN, Hyperlipdemia, Pulmonary Hypertension Pulmonary: Yes: COPD (home oxygen), O2 Dependent, Previously Intubated ( intubated one time several years ago for respiratory failure), Other ( Interstitial lung disease and lung mass) Gastrointestinal: Yes: Diverticulosis, GERD, Other (descending colon polyp excised 08/11) Renal/: Yes: Renal Calculi, UTI Infectious Disease: Yes: MRSA (current bacteremia), Other (known history of MAC , 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 large left inguinal hernia and ventral hernia. 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 Place of : [facility] History of Recent Travel: No Home Medications - Allergies Allergies/Adverse Reactions: Allergies Allergy/AdvReac Type Severity Reaction Status Date / Time moxifloxacin HCl Allergy Severe Verified 03/10/18 02:58 [From Avelox] aclidinium bromide Allergy Verified 03/10/18 02:58 [From Tudorbeatriz Pressair] shellfish derived Allergy Verified 03/10/18 02:58 - Home Medications Home Medications: Ambulatory Orders Albuterol Sulfate Inhaler - [Ventolin HFA Inhaler -] 2 inh PO Q4H 02/08/14 Arformoterol Tartrate [Brovana] 15 mcg IH BID 02/08/14 Tamsulosin HCl [Flomax -] 0.4 mg PO DAILY 02/08/14 Tiotropium Dorr [Spiriva] 1 inh PO DAILY 02/08/14 Beclomethasone Dipropionate [Qvar] 8.7 gm IH DAILY 01/09/16 Polyethylene Glycol 3350 [Miralax 119 gm Btl -] 17 gm PO DAILY PRN #1 bottle 10/15 Ferrous Sulfate [Feosol] 325 mg PO BID ud 05/06/17 Furosemide [Lasix -] 20 mg PO DAILY tablet 05/06/17 Acetaminophen [Tylenol .Regular Strength -] 650 mg PO Q4H PRN tablet 02/20/18 Magnesium Hydrox 2400MG/30Ml [Milk of Magnesia -] 30 ml PO DAILY PRN #1 bottle 02/20/18 Prednisone 10 mg PO ASDIR #65 tablet 02/20/18 Sennosides [Senna -] 2 tab PO HS PRN #60 tablet 02/20/18 Albuterol 0.083% Nebulizer Portia [Ventolin 0.083% Nebulizer Soln -] 1 neb NEB Q4H PRN #75 vial 03/06/18 Albuterol 2.5/Ipratropium 0.5 [Duoneb -] 1 amp NEB RQID amp 03/22/18 Alprazolam [Xanax] 0.25 mg PO Q6HPO #20 tablet MDD 4 03/22/18 Apixaban [Eliquis -] 5 mg PO BID tablet 03/22/18 Atorvastatin Ca [Lipitor] 10 mg PO HS tablet 03/22/18 Diltiazem Cd [Cardizem Cd -] 120 mg PO BID cap.cd.24h 03/22/18 Escitalopram Oxalate [Lexapro -] 10 mg PO DAILY tablet 03/22/18 predniSONE [Deltasone -] 30 mg PO BID tablet 03/22/18 Family Disease History - Family Disease History Family Disease History: Heart Disease: Father ( 67 of [place]), CA: Mother ( 67 colon cancer) Review of Systems - Review of Systems Constitutional: reports: Weakness Eyes: reports: No Symptoms HENT: reports: No Symptoms Respiratory: reports: Cough, Exercise Intolerance, SOB, SOB on Exertion, Wheezing Gastrointestinal: reports: Constipation Psychiatric: reports: Anxiety Physical Exam-GI Vital Signs: Vital Signs Temperature 97.2 F L 03/31/18 06:00 Pulse Rate 120 H 03/31/18 11:17 Respiratory Rate 20 03/31/18 06:00 Blood Pressure 125/70 03/31/18 11:17 O2 Sat by Pulse Oximetry (%) 98 03/30/18 21:00 CBC,CMP WBC 8.6 K/mm3 (4.0-10.0) 03/31/18 10:26 RBC 2.88 M/mm3 (4.00-5.60) L 03/31/18 10:26 Hgb 8.5 GM/dL (11.7-16.9) L 03/31/18 10:26 Hct 26.6 % (35.4-49) L 03/31/18 10:26 MCV 92.6 fl (80-96) 03/31/18 10:26 MCH 29.6 pg (25.7-33.7) 03/31/18 10:26 MCHC 31.9 g/dl (32.0-35.9) L 03/31/18 10:26 RDW 15.2 % (11.9-15.9) 03/31/18 10:26 Plt Count 86 K/MM3 (134-434) L D 03/31/18 10:26 MPV 10.1 fl (7.5-11.1) 03/31/18 10:26 Absolute Neuts (auto) 8.2 K/mm3 (1.5-8.0) H 03/31/18 10:26 Neutrophils % 95.3 % (42.8-82.8) H 03/31/18 10:26 Neutrophils % (Manual) 94.0 % (42.8-82.8) H 03/31/18 05:15 Band Neutrophils % 3.0 % 03/31/18 05:15 Lymphocytes % 2.6 % (8-40) L 03/31/18 10:26 Lymphocytes % (Manual) 2.0 % (8-40) L D 03/31/18 05:15 Monocytes % 1.5 % (3.8-10.2) L 03/31/18 10:26 Monocytes % (Manual) 0 % (3.8-10.2) L D 03/31/18 05:15 Eosinophils % 0.0 % (0-4.5) 03/31/18 10:26 Eosinophils % (Manual) 0.0 % (0-4.5) 03/31/18 05:15 Basophils % 0.6 % (0-2.0) D 03/31/18 10: Basophils % (Manual) 0.0 % (0-2.0) 03/31/18 05:15 Myelocytes % (Man) 0 % (0-2) 03/31/18 05:15 Promyelocytes % (Man) 0 % (0-2) 03/31/18 05:15 Blast Cells % (Manual) 0 % (0-0) 03/31/18 05:15 Nucleated RBC % 1 % (0-0) H 03/31/18 10: Metamyelocytes 0 % (0-2) 03/31/18 05:15 Hypochromia 0 03/31/18 05:15 Toxic Granulation 0 03/26/18 05:30 Dohle Bodies 0 03/26/18 05:30 Platelet Estimate Decreased 03/31/18 05:15 Platelet Comment Present 03/25/18 09:00 Polychromasia 0 03/31/18 05:15 Poikilocytosis 0 03/31/18 05:15 Basophilic Stippling 0 03/26/18 05:30 Anisocytosis 1+ 03/31/18 05:15 Microcytosis 0 03/31/18 05:15 Macrocytosis 1+ 03/31/18 05:15 Spherocytes 1+ 03/29/18 05:30 Sickle Cells 0 03/26/18 05:30 Target Cells 0 03/26/18 05:30 Tear Drop Cells 1+ 03/29/18 05:30 Ovalocytes 1+ 03/31/18 05:15 Stomatocytes 0 03/26/18 05:30 Helmet Cells 0 03/26/18 05:30 [place] Bodies 0 03/26/18 05:30 [place] Rings 0 03/26/18 05:30 [place] Cells 0 03/26/18 05:30 Acanthocytes (Spur) 0 03/26/18 05:30 Rouleaux 0 03/26/18 05:30 Fragmented RBCs 0 03/26/18 05:30 Schistocytes 0 03/26/18 05:30 ESR 104 mm/hr (0-20) H 03/30/18 05:30 Sodium 144 mmol/L (136-145) 03/31/18 06:00 Potassium 4.0 mmol/L (3.5-5.1) 03/31/18 06:00 Chloride 105 mmol/L (98-107) 03/31/18 06:00 Carbon Dioxide 34 mmol/L (21-32) H 03/31/18 06:00 Anion Gap 5 MMOL/L (8-16) L 03/31/18 06:00 BUN 22 mg/dL (7-18) H 03/31/18 06:00 Creatinine 0.4 mg/dL (0.55-1.3) L 03/31/18 06:00 Creat Clearance w eGFR > 60 (>60) 03/31/18 06:00 POC Glucometer 194 UNITS (80-120) 03/31/18 12:19 Random Glucose 204 mg/dL (74-106) H 03/31/18 06:00 Hemoglobin A1c % 7.4 % (4.2-6.3) H 03/25/18 09:00 Lactic Acid 1.3 mmol/L (0.4-2.0) 03/24/18 11:37 Calcium 7.3 mg/dL (8.5-10.1) L 03/31/18 06:00 Phosphorus 1.8 mg/dL (2.5-4.9) L 03/25/18 09:00 Magnesium 2.5 mg/dL (1.8-2.4) H 03/25/18 09:00 Iron 42 ug/dL (38-169) 03/29/18 05:30 TIBC 220 ug/dL (250-450) L 03/29/18 05:30 Iron Saturation 19 % (15-55) 03/29/18 05:30 Ferritin 76.9 ng/ml (8-388) 03/31/18 10:26 Total Bilirubin 0.3 mg/dL (0.2-1) 03/29/18 05:30 AST 17 U/L (15-37) 03/29/18 05:30 ALT 40 U/L (13-61) 03/29/18 05:30 Alkaline Phosphatase 55 U/L (45-117) 03/29/18 05:30 Creatine Kinase 40 IU/L (26-308) 03/29/18 05:30 Troponin I 0.19 ng/ml (0.00-0.05) H 03/29/18 05:30 C-Reactive Protein 0.8 MG/DL (0.00-0.3) H 03/30/18 05:30 Total Protein 4.6 g/dl (6.4-8.2) L 03/29/18 05:30 Albumin 2.0 g/dl (3.4-5.0) L 03/29/18 05:30 Vitamin B12 1385 pg/ml (193-986) H 03/25/18 09:00 Serum Folate 19 ng/mL (3.1-17.5) H 03/25/18 09:00 TSH 0.24 uIU/ml (0.358-3.74) L D 03/25/18 09:00 Free T4 1.02 ng/dl (0.76-1.16) 03/25/18 09:00 Thyroid Stim Immunoglob <0.10 IU/L (0.00-0.55) 03/29/18 05:30 Current Medications Generic Name Dose Route Start Last Admin Trade Name Freq PRN Reason Stop Dose Admin Alprazolam 0.5 mg 03/31/18 12:03 Xanax - PO Q8H PRN ANXIETY Amino Acids 30 ml 03/27/18 17:30 03/31/18 10:39 Prosource No Carb Liquid Pkt PO 30 ml BID@0800,1730 TA Administration Arformoterol Tartrate 1 amp 03/26/18 08:00 03/31/18 07:44 Brovana (Restricted To Pulmonology/Resp) - NEB 1 amp RBID TA Administration Atorvastatin Calcium 10 mg 03/26/18 22:00 03/30/18 22:33 Lipitor - PO 10 mg HS TA Administration Bisacodyl 5 mg 03/27/18 10:12 Dulcolax - PO DAILY PRN CONSTIPATION Budesonide/Formoterol Fumarate 2 puff 03/26/18 10:00 03/31/18 10:41 Symbicort 160/4.5mcg - IH 2 inh BID TA Administration Diltiazem HCl 10 mg 03/25/18 22:23 03/29/18 09:20 Cardizem Injection - IVPUSH 10 mg Q4H PRN Administration TACHYCARDIA Escitalopram Oxalate 20 mg 03/30/18 12:46 03/31/18 10:40 Lexapro - PO 20 mg DAILY TA Administration Ferrous Sulfate 325 mg 03/27/18 10:15 03/31/18 10:40 Feosol - PO 325 mg DAILY TA Administration Daptomycin 500 mg/ Sodium 50 mls @ 50 mls/hr 03/26/18 13:15 03/31/18 10:47 Chloride IVPB 50 mls/hr DAILY TA Administration Protocol Ceftaroline Fosamil 600 mg/ 100 mls @ 100 mls/hr 03/29/18 11:45 03/31/18 10: 47 Dextrose IVPB 100 mls/hr Q8H-IV TA Administration Protocol Diltiazem HCl 125 mg/ Sodium 125 mls @ 5 mls/hr 03/31/18 11:00 03/31/18 11:17 Chloride IVPB 5 mg/hr TITR TA 5 mls/hr Administration Protocol 5 MG/HR Insulin Aspart 1 vial 03/25/18 16:30 03/31/18 12:21 Novolog Vial Sliding Scale - SQ 2 units ACHS TA Administration Protocol Lactobacillus Acidophilus 1 tab 03/29/18 10:00 03/31/18 10:40 Bacid - PO 1 tab DAILY TA Administration Methylprednisolone Sodium Succinate 40 mg 03/29/18 22:00 03/31/18 10:40 Solu-Medrol - IVPUSH 40 mg BID TA Administration Nystatin 500,000 units 03/30/18 18:00 03/31/18 12:22 Nystatin Oral Suspension - PO 500,000 units Q6HPO TA Administration Tamsulosin HCl 0.4 mg 03/27/18 08:30 03/31/18 10:40 Flomax - PO 0.4 mg DAILY@0830 TA Administration Tiotropium Dorr 2 puff 03/27/18 10:00 03/31/18 10:41 Spiriva Respimat IH 2 puff DAILY TA Administration Constitutional: Yes: Anxious, Mild Distress Eyes: Yes: Conjunctiva Clear HENT: Yes: Atraumatic Neck: Yes: Supple Cardiovascular: Yes: Regular Rate and Rhythm, Tachycardia Respiratory: Yes: Accessory Muscle Use, Hyperresonant, Rhonchi Gastrointestinal Inspection: Yes: Hernia (nontender epigastric ventral and large lefty inguinal hernias) ...Auscultate: Yes: Normoactive Bowel Sounds ...Palpate: Yes: Soft, Other (nontender) ...Rectal Exam: Yes: Guaiac Positive (brown soft guaiac positive stool, 2+ prostate) Edema: No Neurological: Yes: Alert, Oriented Psychiatric: Yes: Other (anxious) Labs: CBC, BMP 03/31/18 10:26 03/31/18 06:00 INR, PTT INR 1.37 (0.83-1.09) H 03/26/18 05:30 Fibrinogen 668.0 mg/dL (238-498) H 03/24/18 15:30 Laboratory Tests 08/08/14 08/31/16 04/22/17 18:40 06:00 06:30 Hgb 13.6 12.6 8.5 L 04/26/17 03/02/18 03/24/18 06:25 08:29 11:37 Hgb 11.2 L 13.1 11.5 L 03/28/18 03/31/18 03/31/18 05:45 05:15 10:26 Hgb 8.4 L 7.8 L 8.5 L Problem List - Problems (1) Gastrointestinal bleeding Assessment/Plan: Pablito has occult bleeding contributing to his anemia. He should ideally undergo an EGD , colonoscopy and capsule endoscopy. His lung status however precludes doing such investigations electively. Potential bleeding sources include erosive stress gastritis or ulcer, GERD, vascular ectasias, recurrent colon polyp, upper or lower GI malignancy among others. Given his h/o colon polyp and FH of colon cancer I have advised that he followup to arrange these studies after he gets his lung transplant. His was present for our discussion. Continue PPI therapy empirically in the interl Code(s): K92.2 - GASTROINTESTINAL HEMORRHAGE, UNSPECIFIED (2) History of colonic polyps Code(s): Z86.010 - PERSONAL HISTORY OF COLONIC POLYPS (3) Family history of colon cancer in mother Code(s): Z80.0 - FAMILY HISTORY OF MALIGNANT NEOPLASM OF DIGESTIVE ORGANS (4) Diverticulosis Code(s): K57.90 - DVRTCLOS OF INTEST, PART UNSP, W/O PERF OR ABSCESS W/O BLEED (5) Inguinal hernia of left side without obstruction or gangrene Code(s): K40.90 - UNIL INGUINAL HERNIA, W/O OBST OR GANGR, NOT SPCF RECUR (6) Anemia Code(s): D64.9 - ANEMIA, UNSPECIFIED Qualifiers: Anemia type: unspecified type Qualified Code(s): D64.9 - Anemia, unspecified (7) CHF (congestive heart failure) Code(s): I50.9 - HEART FAILURE, UNSPECIFIED (8) COPD (chronic obstructive pulmonary disease) Code(s): J44.9 - CHRONIC OBSTRUCTIVE PULMONARY DISEASE, UNSPECIFIED Qualifiers: COPD type: unspecified COPD Qualified Code(s): J44.9 - Chronic obstructive pulmonary disease, unspecified (9) Pulmonary nodule Code(s): R91.1 - SOLITARY PULMONARY NODULE (10) Respiratory failure with hypercapnia Code(s): J96.92 - RESPIRATORY FAILURE, UNSPECIFIED WITH HYPERCAPNIA Qualifiers: Chronicity: acute on chronic Qualified Code(s): J96.22 - Acute and chronic respiratory failure with hypercapnia (11) Sick-euthyroid syndrome Code(s): E07.81 - SICK-EUTHYROID SYNDROME
[2018-03-31 12:51] LABS: ANISOCYTOSIS 1+; MACROCYTOSIS 0; PLATELET ESTIMATE DECREASED
--- NOTE | 2018-03-31 13:54 | PN ---
Progress Note (short form) - Note Progress Note: fatigued episode rapid afib again today, now on cardizem drip improved now no pain Vital Signs Period Temp Pulse Resp BP Sys/Morgan Pulse Ox Last 24 Hr 97.2 F-98.1 F 84-125 20-20 117-134/52-80 98-98 cor-rrr lungs clear abd soft,nt ext ecchymoses forearms unchanged CBC, BMP 03/31/18 10:26 03/31/18 06:00 Microbiology 03/29/18 05:45 Blood - Peripheral Venous Blood Culture - Preliminary Presumptive Mrsa (Pbp2a Pos) 03/29/18 05:30 Blood - Peripheral Venous Blood Culture - Preliminary NO GROWTH OBTAINED AFTER 48 HOURS, INCUBATION TO CONTINUE FOR 3 DAYS. 03/27/18 06:10 Blood - Peripheral Venous Blood Culture - Final S Aureus 03/27/18 05:30 Blood - Peripheral Venous Blood Culture - Final S Aureus 03/25/18 12:20 Blood - Peripheral Venous Blood Culture - Final S Aureus 03/25/18 12:05 Blood - Peripheral Venous Blood Culture - Final Mr S Aureus 03/24/18 11:53 Blood - Peripheral Venous Blood Culture - Final Presumptive Mrsa (Pbp2a Pos) 03/24/18 11:37 Blood - Peripheral Venous Blood Culture - Final Mr S Aureus 03/24/18 13:13 Urine - Urine - Catheterized Urine Culture - Final NO GROWTH OBTAINED a/p MRSA bacteremia- ?source concerning for endocarditis no clear source no back pain, no new infiltrate on cxray continue daptomycin,/ceftaroline stable thrombocytopenia would like to get ct scan chest/abd/pelvis when stable to be moved -d/w tele nurse, cannot be moved today duplex legs repeat TTE- not sure he can tolerate LUBNA endstage copd rapid afib d/w at bedside Problem List - Problems (1) Sepsis Code(s): A41.9 - SEPSIS, UNSPECIFIED ORGANISM (2) Fever Code(s): R50.9 - FEVER, UNSPECIFIED Qualifiers: Fever type: unspecified Qualified Code(s): R50.9 - Fever, unspecified (3) Acute and chronic respiratory failure Code(s): J96.20 - ACUTE AND CHR RESP FAILURE, UNSP W HYPOXIA OR HYPERCAPNIA Qualifiers: Respiratory failure complication: hypoxia and hypercapnia Qualified Code(s) : J96.21 - Acute and chronic respiratory failure with hypoxia; J96.22 - Acute and chronic respiratory failure with hypercapnia (4) Paroxysmal A-fib Code(s): I48.0 - PAROXYSMAL ATRIAL FIBRILLATION
--- NOTE | 2018-03-31 14:02 | ECHO ---
Name: CARLOS MORE Exam:Adult Echocardiogram Study Date: 03/31/2018 11:28 AM Age: 67 yrs Reason For Study: R/O ENDOCARDITIS Height: 70 in Weight: 152 lb BSA: 1.9 m2 Doppler Measurements & Calculations MR max david: 491.5 cm/sec MR max P.6 mmHg Procedure A two-dimensional transthoracic echocardiogram with color flow and Doppler was performed. The study w as technically difficult with many images being suboptimal in quality. Left Ventricle The left ventricular size, thickness and function are normal. The left ventricular ejection fraction is normal. Regional wall motion abnormalities cannot be excluded due to limited visualization. Right Ventricle The right ventricle is not well visualized. Atria The left atrium is not well visualized. Right atrium not well visualized. Mitral Valve The mitral valve is not well visualized. There is moderate mitral valve thickening. There is no geeta l valve stenosis. There is severe mitral regurgitation. Tricuspid Valve There is mild tricuspid valve thickening. There is no tricuspid stenosis. There is moderate tricuspid regurgitation. Right ventricular systolic pressure is normal. Aortic Valve The aortic valve is not well visualized. No hemodynamically significant valvular aortic stenosis. No aortic regurgitation is present. Pulmonic Valve The pulmonic valve is not well visualized. Great Vessels The aortic root is not well visualized. Pericardium/Pleura There is no pericardial effusion. Interpretation Summary Would consider a transesophageal echocardiogram if clinically indicated. Clinical correlation is anna mmended. The study was technically difficult with many images being suboptimal in quality. The left ventricular size, thickness and function are normal Regional wall motion abnormalities cannot be excluded due to limited visualization. The left ventricular ejection fraction is normal. Right ventricular systolic pressure is normal. There is severe mitral regurgitation. There is moderate mitral valve thickening. There is moderate tricuspid regurgitation. Would consider a transesophageal echocardiogram if clinically indicated. Clinical correlation is recommended. MD Nish Osborne 03/31/2018 02:01 PM
--- NOTE | 2018-03-31 15:01 | PN ---
Progress Note, Physician Chief Complaint: COPD exacerbation MRSA Bacteremia History of Present Illness: NAD Breathing much improved Was started on Cardizem drip, is at 5mcg/hr, converted to NSR and back to Afib, rate in 120's On Daptomycin 500 mg IV daily and ceftaroline 600 mg IV Q8H for MRSA bacteremia - Current Medication List Current Medications: Active Medications Alprazolam (Xanax -) 0.5 mg PO Q8H PRN PRN Reason: ANXIETY Last Admin: 03/31/18 13:02 Dose: 0.5 mg Amino Acids (Prosource No Carb Liquid Pkt) 30 ml PO BID@0800,1730 [facility] Last Admin: 03/31/18 10:39 Dose: 30 ml Arformoterol Tartrate (Brovana (Restricted To Pulmonology/Resp) -) 1 amp NEB RBID [facility] Last Admin: 03/31/18 07:44 Dose: 1 amp Atorvastatin Calcium (Lipitor -) 10 mg PO HS [facility] Last Admin: 03/30/18 22:33 Dose: 10 mg Bisacodyl (Dulcolax -) 5 mg PO DAILY PRN PRN Reason: CONSTIPATION Budesonide/Formoterol Fumarate (Symbicort 160/4.5mcg -) 2 puff IH BID [facility] Last Admin: 03/31/18 10:41 Dose: 2 inh Diltiazem HCl (Cardizem Injection -) 10 mg IVPUSH Q4H PRN PRN Reason: TACHYCARDIA Last Admin: 03/29/18 09:20 Dose: 10 mg Escitalopram Oxalate (Lexapro -) 20 mg PO DAILY [facility] Last Admin: 03/31/18 10:40 Dose: 20 mg Ferrous Sulfate (Feosol -) 325 mg PO DAILY [facility] Last Admin: 03/31/18 10:40 Dose: 325 mg Daptomycin 500 mg/ Sodium (Chloride) 50 mls @ 50 mls/hr IVPB DAILY [facility]; Protocol Last Admin: 03/31/18 10:47 Dose: 50 mls/hr Ceftaroline Fosamil 600 mg/ (Dextrose) 100 mls @ 100 mls/hr IVPB Q8H-IV [facility]; Protocol Last Admin: 03/31/18 10:47 Dose: 100 mls/hr Diltiazem HCl 125 mg/ Sodium (Chloride) 125 mls @ 5 mls/hr IVPB TITR [facility]; Protocol Last Admin: 03/31/18 11:17 Dose: 5 mg/hr, 5 mls/hr Insulin Aspart (Novolog Vial Sliding Scale -) 1 vial SQ ACHS [facility]; Protocol Last Admin: 03/31/18 12:21 Dose: 2 units Lactobacillus Acidophilus (Bacid -) 1 tab PO DAILY [facility] Last Admin: 03/31/18 10:40 Dose: 1 tab Methylprednisolone Sodium Succinate (Solu-Medrol -) 40 mg IVPUSH BID [facility] Last Admin: 03/31/18 10:40 Dose: 40 mg Nystatin (Nystatin Oral Suspension -) 500,000 units PO Q6HPO [facility] Last Admin: 03/31/18 12:22 Dose: 500,000 units Pantoprazole Sodium (Protonix -) 40 mg PO BID [facility] Polyethylene Glycol (Miralax (For Daily Use) -) 17 gm PO DAILY [facility] Tamsulosin HCl (Flomax -) 0.4 mg PO DAILY@0830 [facility] Last Admin: 03/31/18 10:40 Dose: 0.4 mg Tiotropium [place] (Spiriva Respimat) 2 puff IH DAILY [facility] Last Admin: 03/31/18 10:41 Dose: 2 puff - Objective Vital Signs: Vital Signs Temperature 98.0 F 03/31/18 10:00 Pulse Rate 120 H 03/31/18 11:17 Respiratory Rate 20 03/31/18 10:00 Blood Pressure 125/70 03/31/18 11:17 O2 Sat by Pulse Oximetry (%) 98 03/31/18 09:00 Constitutional: Yes: Well Nourished, No Distress, Calm Cardiovascular: Yes: Tachycardia, Pulse Irregular Respiratory: Yes: Diminished, On Nasal O2, SOB on Exertion, Tachypnea Gastrointestinal: Yes: Normal Bowel Sounds, Soft Musculoskeletal: Yes: Muscle Weakness Edema: No Peripheral Pulses WNL: Yes Neurological: Yes: Alert, Oriented Psychiatric: Yes: Alert, Oriented Labs: CBC, BMP 03/31/18 10:26 03/31/18 06:00 INR, PTT INR 1.37 (0.83-1.09) H 03/26/18 05:30 Fibrinogen 668.0 mg/dL (238-498) H 03/24/18 15:30 Problem List - Problems (1) Sepsis Assessment/Plan: -Lactic acid normal -Afebrile -BC: Microbiology 03/29/18 05:45 Blood - Peripheral Venous Blood Culture - Preliminary Presumptive Mrsa (Pbp2a Pos) 03/29/18 05:30 Blood - Peripheral Venous Blood Culture - Preliminary NO GROWTH OBTAINED AFTER 48 HOURS, INCUBATION TO CONTINUE FOR 3 DAYS. 03/27/18 06:10 Blood - Peripheral Venous Blood Culture - Final S Aureus 03/27/18 05:30 Blood - Peripheral Venous Blood Culture - Final S Aureus 03/25/18 12:20 Blood - Peripheral Venous Blood Culture - Final Mr S Aureus 03/25/18 12:05 Blood - Peripheral Venous Blood Culture - Final Mr S Aureus 03/24/18 11:53 Blood - Peripheral Venous Blood Culture - Final Presumptive Mrsa (Pbp2a Pos) 03/24/18 11:37 Blood - Peripheral Venous Blood Culture - Final S Aureus 03/24/18 13:13 Urine - Urine - Catheterized Urine Culture - Final NO GROWTH OBTAINED -On IV abx -ID on board Code(s): A41.9 - SEPSIS, UNSPECIFIED ORGANISM (2) Acute and chronic respiratory failure Assessment/Plan: -Seen by pulmonary -BIPAP, to keep SpO2 > 90% -Solumedrol 40 mg BID -Bronchodilators -IV abx Code(s): J96.20 - ACUTE AND CHR RESP FAILURE, UNSP W HYPOXIA OR HYPERCAPNIA Qualifiers: Respiratory failure complication: hypoxia and hypercapnia Qualified Code(s) : J96.21 - Acute and chronic respiratory failure with hypoxia; J96.22 - Acute and chronic respiratory failure with hypercapnia (3) COPD exacerbation Assessment/Plan: -Pulmonary on board -BIPAP -Bronchodilators -Solumedrol 40 mg bid -Nasal O2 to keep SpO2 >90% Code(s): J44.1 - CHRONIC OBSTRUCTIVE PULMONARY DISEASE W (ACUTE) EXACERBATION (4) Paroxysmal atrial fibrillation with rapid ventricular response Assessment/Plan: -Tele monitoring -On Eliquis 5 mg po bid -cardiology on board -On diltiazem drip @ 5 mcg/hr -Diltiazem IVP 10 mg IVP prn ordered Code(s): I48.0 - PAROXYSMAL ATRIAL FIBRILLATION (5) Elevated troponin Assessment/Plan: -likely 2/2 to demand ischemia -repeat troponin series Q8H x 3-trending down Code(s): R74.8 - ABNORMAL LEVELS OF OTHER SERUM ENZYMES (6) Hypoalbuminemia Assessment/Plan: -due to decreased PO intake -Prosource Code(s): E88.09 - OTH DISORDERS OF PLASMA-PROTEIN METABOLISM, NEC (7) Protein calorie malnutrition Assessment/Plan: -due to decreased PO intake -Prosource Code(s): E46 - UNSPECIFIED PROTEIN-CALORIE MALNUTRITION (8) Anemia Assessment/Plan: -B12, Thyroid profile and folic acid unremarkable -Iron % low-unable to give venofer due to bacteremia -start ferrous sulfate 325 mg po daily -check stool OB-still pending -monitor trend Code(s): D64.9 - ANEMIA, UNSPECIFIED Qualifiers: Anemia type: unspecified type Qualified Code(s): D64.9 - Anemia, unspecified (9) Anxiety Assessment/Plan: -Increase alprazolam to 0.5 mg po BID -On Lexapro 20 mg po daily -Psychiatry consult Code(s): F41.9 - ANXIETY DISORDER, UNSPECIFIED (10) Hyperthyroidism Assessment/Plan: -borderline -Endocrinology consult ordered Code(s): E05.90 - THYROTOXICOSIS, UNSP WITHOUT THYROTOXIC CRISIS OR STORM Assessment/Plan see problem list Physical therapy
--- NOTE | 2018-03-31 15:41 | CON.PSY ---
Psychiatry Consult Chief Complaint: 67 year old male with history of COPD and otherv chronic nmedical problems seen for Psych consult. Historyv of anxiety abnd depression. Symptoms: reports: Anxiety - Previous Psychiatric Treatment Outpatient: Less than 6 mos ago Inpatient: None - Reason for Previous Treatment Reason for Previous Treatment: Major Depression, Anxiety or Panic Disorder - Current Medications Current Medications: Active Medications Amino Acids (Prosource No Carb Liquid Pkt) 30 ml PO BID@0800,1730 [facility] Last Admin: 03/31/18 10:39 Dose: 30 ml Arformoterol Tartrate (Brovana (Restricted To Pulmonology/Resp) -) 1 amp NEB RBID [facility] Last Admin: 03/31/18 07:44 Dose: 1 amp Atorvastatin Calcium (Lipitor -) 10 mg PO HS [facility] Last Admin: 03/30/18 22:33 Dose: 10 mg Bisacodyl (Dulcolax -) 5 mg PO DAILY PRN PRN Reason: CONSTIPATION Budesonide/Formoterol Fumarate (Symbicort 160/4.5mcg -) 2 puff IH BID [facility] Last Admin: 03/31/18 10:41 Dose: 2 inh Diltiazem HCl (Cardizem Injection -) 10 mg IVPUSH Q4H PRN PRN Reason: TACHYCARDIA Last Admin: 03/29/18 09:20 Dose: 10 mg Escitalopram Oxalate (Lexapro -) 20 mg PO DAILY [facility] Last Admin: 03/31/18 10:40 Dose: 20 mg Ferrous Sulfate (Feosol -) 325 mg PO DAILY [facility] Last Admin: 03/31/18 10:40 Dose: 325 mg Daptomycin 500 mg/ Sodium (Chloride) 50 mls @ 50 mls/hr IVPB DAILY [facility]; Protocol Last Admin: 03/31/18 10:47 Dose: 50 mls/hr Ceftaroline Fosamil 600 mg/ (Dextrose) 100 mls @ 100 mls/hr IVPB Q8H-IV [facility]; Protocol Last Admin: 03/31/18 10:47 Dose: 100 mls/hr Diltiazem HCl 125 mg/ Sodium (Chloride) 125 mls @ 5 mls/hr IVPB TITR [facility]; Protocol Last Admin: 03/31/18 11:17 Dose: 5 mg/hr, 5 mls/hr Insulin Aspart (Novolog Vial Sliding Scale -) 1 vial SQ ACHS [facility]; Protocol Last Admin: 03/31/18 12:21 Dose: 2 units Lactobacillus Acidophilus (Bacid -) 1 tab PO DAILY [facility] Last Admin: 03/31/18 10:40 Dose: 1 tab Methylprednisolone Sodium Succinate (Solu-Medrol -) 40 mg IVPUSH BID [facility] Last Admin: 03/31/18 10:40 Dose: 40 mg Nystatin (Nystatin Oral Suspension -) 500,000 units PO Q6HPO [facility] Last Admin: 03/31/18 12:22 Dose: 500,000 units Pantoprazole Sodium (Protonix -) 40 mg PO BID [facility] Polyethylene Glycol (Miralax (For Daily Use) -) 17 gm PO DAILY [facility] Tamsulosin HCl (Flomax -) 0.4 mg PO DAILY@0830 [facility] Last Admin: 03/31/18 10:40 Dose: 0.4 mg Tiotropium [place] (Spiriva Respimat) 2 puff IH DAILY [facility] Last Admin: 03/31/18 10:41 Dose: 2 puff - Allergies Allergies: Allergies Allergy/AdvReac Type Severity Reaction Status Date / Time moxifloxacin HCl Allergy Severe Verified 03/10/18 02:58 [From Avelox] aclidinium bromide Allergy Verified 03/10/18 02:58 [From Tudorza Pressair] shellfish derived Allergy Verified 03/10/18 02:58 - Current Living Status Usual Living Arrangement: With Spouse - Current Mental Status Evaluation Appearance: Well Groomed Attitude: Cooperative - Affect Affect: Constrictive Appropriateness: Appropriate to Content - Mood Mood: Anxious - Speech/Language Expressive: Coherent - Psychomotor Activity Psychomotor Activity: Normal - Thought Content Hallucinations: Absent Delusions: Absent - Self Perception Self Perception: No Impairment - Cognition Attention: Alert Orientation: Time Memory, Immediate Recall: Intact Memory, Short Term: 3/3 Memory, Remote with Promptin/3 - Concentration Serial Sevens Intact: Yes Simple Calculations Intact: Yes - Abstraction Proverb Interpretation: Intact Judgement: Intact - Insight Insight: Intact - Impulse Control Impulse Control: Good Control - Suicidal Ideation Suicidal Ideation: No - Homicidal Ideation Homicidal Ideation: No Assessment/Plan 1)Continue with Lexapro 2o mg po od. 2) Xanax 0.5mg po bid standing.
[2018-03-31] MEDS: ALBUTEROL SO4 2.5/IPRATROPIUM 0.5 INH SOL 3 ML VIAL.NEB. NEB SCH ×2 (17:00→20:00)
[2018-03-31] MEDS: ATORVASTATIN CA 10 MG TABLET (FP) PO SCH (22:21)
[2018-03-31] MEDS: PANTOPRAZOLE 40 MG TABLET (FP) PO SCH (22:21)
[2018-03-31] MEDS: ALPRAZolam 0.25 MG TABLET PO PRN (22:27)
[2018-04-01] MEDS ORDERED: PT OWN MED DRAWER 7, Y5N ONE ×2 (02:34→18:35)
[2018-04-01] MEDS: CEFTAROLINE FOSAMIL ACETATE 600 MG in DEXTROSE 5%-WATER - 100 ML IVPB SCH ×3 (02:36→18:38)
[2018-04-01] MEDS: ALBUTEROL SO4 2.5/IPRATROPIUM 0.5 INH SOL 3 ML VIAL.NEB. NEB SCH ×7 (04:00→23:49)
[2018-04-01 06:09] LABS: SERUM IRON SATURATION 20 % (15-55); TOTAL IRON BINDING CAPACITY 265 ug/dL (250-450); UIBC 212 ug/dL (111-343)
[2018-04-01] MEDS: INSULIN SLIDING SCALE (NOVOLOG) 1 VIAL SQ SCH ×4 (06:38→22:01)
[2018-04-01] MEDS: NYSTATIN 500,000 UNITS/5 ML SUSPENSION PO SCH ×4 (06:42→18:55)
[2018-04-01] MEDS: ARFORMOTEROL TARTRATE 15 MCG/2 ML VIAL NEB SCH ×2 (08:00→20:36)
[2018-04-01] MEDS: AMINO ACIDS/PROTEIN HYDROLYS 30 ML LIQUID.PKT PO SCH ×2 (09:00→18:20)
--- NOTE | 2018-04-01 09:00 | PN ---
Progress Note, Physician - Current Medication List Current Medications: Active Medications Albuterol/Ipratropium (Duoneb -) 1 amp NEB RQ4H [facility] Last Admin: 04/01/18 04:00 Dose: Not Given Alprazolam (Xanax -) 0.5 mg PO BID PRN PRN Reason: ANXIETY Last Admin: 03/31/18 22:27 Dose: 0.5 mg Amino Acids (Prosource No Carb Liquid Pkt) 30 ml PO BID@0800,1730 [facility] Last Admin: 03/31/18 17:10 Dose: 30 ml Arformoterol Tartrate (Brovana (Restricted To Pulmonology/Resp) -) 1 amp NEB RBID [facility] Last Admin: 03/31/18 21:45 Dose: 1 amp Atorvastatin Calcium (Lipitor -) 10 mg PO HS [facility] Last Admin: 03/31/18 22:21 Dose: 10 mg Bisacodyl (Dulcolax -) 5 mg PO DAILY PRN PRN Reason: CONSTIPATION Budesonide/Formoterol Fumarate (Symbicort 160/4.5mcg -) 2 puff IH BID [facility] Last Admin: 03/31/18 22:21 Dose: 2 inh Diltiazem HCl (Cardizem Injection -) 10 mg IVPUSH Q4H PRN PRN Reason: TACHYCARDIA Last Admin: 03/29/18 09:20 Dose: 10 mg Escitalopram Oxalate (Lexapro -) 20 mg PO DAILY [facility] Last Admin: 03/31/18 10:40 Dose: 20 mg Ferrous Sulfate (Feosol -) 325 mg PO DAILY [facility] Last Admin: 03/31/18 10:40 Dose: 325 mg Daptomycin 500 mg/ Sodium (Chloride) 50 mls @ 50 mls/hr IVPB DAILY [facility]; Protocol Last Admin: 03/31/18 10:47 Dose: 50 mls/hr Ceftaroline Fosamil 600 mg/ (Dextrose) 100 mls @ 100 mls/hr IVPB Q8H-IV [facility]; Protocol Last Admin: 04/01/18 02:36 Dose: 100 mls/hr Diltiazem HCl 125 mg/ Sodium (Chloride) 125 mls @ 5 mls/hr IVPB TITR [facility]; Protocol Last Admin: 03/31/18 11:17 Dose: 5 mg/hr, 5 mls/hr Insulin Aspart (Novolog Vial Sliding Scale -) 1 vial SQ ACHS [facility]; Protocol Last Admin: 04/01/18 06:38 Dose: 2 units Lactobacillus Acidophilus (Bacid -) 1 tab PO DAILY [facility] Last Admin: 03/31/18 10:40 Dose: 1 tab Methylprednisolone Sodium Succinate (Solu-Medrol -) 40 mg IVPUSH BID [facility] Last Admin: 03/31/18 22:21 Dose: 40 mg Nystatin (Nystatin Oral Suspension -) 500,000 units PO Q6HPO [facility] Last Admin: 04/01/18 06:42 Dose: 500,000 units Pantoprazole Sodium (Protonix -) 40 mg PO BID [facility] Last Admin: 03/31/18 22:21 Dose: 40 mg Polyethylene Glycol (Miralax (For Daily Use) -) 17 gm PO DAILY [facility] Tamsulosin HCl (Flomax -) 0.4 mg PO DAILY@0830 [facility] Last Admin: 03/31/18 10:40 Dose: 0.4 mg Tiotropium [place] (Spiriva Respimat) 2 puff IH DAILY [facility] Last Admin: 03/31/18 10:41 Dose: 2 puff - Objective Vital Signs: Vital Signs Temperature 97.9 F 04/01/18 05:39 Pulse Rate 70 04/01/18 05:39 Respiratory Rate 20 04/01/18 05:39 Blood Pressure 111/55 L 04/01/18 05:39 O2 Sat by Pulse Oximetry (%) 95 03/31/18 21:00 Cardiovascular: Yes: Murmur, S1, S2 Respiratory: Yes: On Nasal O2, Rhonchi Gastrointestinal: Yes: Normal Bowel Sounds, Soft. No: Tenderness Labs: CBC, BMP 03/31/18 10:26 03/31/18 06:00 INR, PTT INR 1.37 (0.83-1.09) H 03/26/18 05:30 Fibrinogen 668.0 mg/dL (238-498) H 03/24/18 15:30 Assessment/Plan - Problems (1) Sepsis Assessment/Plan: -Lactic acid normal -Afebrile -BC: -D/W Dr Mccullough will get CT scan -Cardio follow up for possible LUBNA Microbiology 03/29/18 05:45 Blood - Peripheral Venous Blood Culture - Preliminary Presumptive Mrsa (Pbp2a Pos) 03/29/18 05:30 Blood - Peripheral Venous Blood Culture - Preliminary NO GROWTH OBTAINED AFTER 48 HOURS, INCUBATION TO CONTINUE FOR 3 DAYS. 03/27/18 06:10 Blood - Peripheral Venous Blood Culture - Final S Aureus 03/27/18 05:30 Blood - Peripheral Venous Blood Culture - Final S Aureus 03/25/18 12:20 Blood - Peripheral Venous Blood Culture - Final S Aureus 03/25/18 12:05 Blood - Peripheral Venous Blood Culture - Final S Aureus 03/24/18 11:53 Blood - Peripheral Venous Blood Culture - Final Presumptive Mrsa (Pbp2a Pos) 03/24/18 11:37 Blood - Peripheral Venous Blood Culture - Final S Aureus 03/24/18 13:13 Urine - Urine - Catheterized Urine Culture - Final NO GROWTH OBTAINED -On IV abx -ID on board Code(s): A41.9 - SEPSIS, UNSPECIFIED ORGANISM (2) Acute and chronic respiratory failure Assessment/Plan: -Seen by pulmonary -BIPAP, to keep SpO2 > 90% -Solumedrol 40 mg BID -Bronchodilators -IV abx Code(s): J96.20 - ACUTE AND CHR RESP FAILURE, UNSP W HYPOXIA OR HYPERCAPNIA Qualifiers: Respiratory failure complication: hypoxia and hypercapnia Qualified Code(s) : J96.21 - Acute and chronic respiratory failure with hypoxia; J96.22 - Acute and chronic respiratory failure with hypercapnia (3) COPD exacerbation Assessment/Plan: -Pulmonary on board -BIPAP -Bronchodilators -Solumedrol 40 mg bid -Nasal O2 to keep SpO2 >90% Code(s): J44.1 - CHRONIC OBSTRUCTIVE PULMONARY DISEASE W (ACUTE) EXACERBATION (4) Paroxysmal atrial fibrillation with rapid ventricular response Assessment/Plan: -Tele monitoring -On Eliquis 5 mg po bid -cardiology on board -On diltiazem drip @ 5 mcg/hr -Diltiazem IVP 10 mg IVP prn ordered Code(s): I48.0 - PAROXYSMAL ATRIAL FIBRILLATION (5) Elevated troponin Assessment/Plan: -likely 2/2 to demand ischemia -repeat troponin series Q8H x 3-trending down Code(s): R74.8 - ABNORMAL LEVELS OF OTHER SERUM ENZYMES (6) Hypoalbuminemia Assessment/Plan: -due to decreased PO intake -Prosource Code(s): E88.09 - OTH DISORDERS OF PLASMA-PROTEIN METABOLISM, NEC (7) Protein calorie malnutrition Assessment/Plan: -due to decreased PO intake -Prosource Code(s): E46 - UNSPECIFIED PROTEIN-CALORIE MALNUTRITION (8) Anemia Assessment/Plan: -B12, Thyroid profile and folic acid unremarkable -Iron % low-unable to give venofer due to bacteremia -start ferrous sulfate 325 mg po daily -check stool OB-still pending -monitor trend Code(s): D64.9 - ANEMIA, UNSPECIFIED Qualifiers: Anemia type: unspecified type Qualified Code(s): D64.9 - Anemia, unspecified (9) Anxiety Assessment/Plan: -Increase alprazolam to 0.5 mg po BID -On Lexapro 20 mg po daily -Psychiatry consult Code(s): F41.9 - ANXIETY DISORDER, UNSPECIFIED (10) Hyperthyroidism Assessment/Plan: -borderline -Endocrinology consult ordered Code(s): E05.90 - THYROTOXICOSIS, UNSP WITHOUT TH
[2018-04-01 09:16] LABS: HEMATOCRIT 27.7 % (35.4-49); HEMOGLOBIN 9.1 GM/dL (11.7-16.9); LYMPH % 2.7 % (8-40); MCHC 32.8 g/dl (32.0-35.9); MEAN CELL VOLUME 91.7 fl (80-96); MEAN PLT VOLUME 10.1 fl (7.5-11.1); MONO % 1.6 % (3.8-10.2); NEUT % 95.7 % (42.8-82.8); PLATELET COUNT 71 K/MM3 (134-434); RBC 3.03 M/mm3 (4.00-5.60); RDW 14.9 % (11.9-15.9)
--- NOTE | 2018-04-01 09:18 | PN ---
Progress Note, Physician History of Present Illness: Feels weak, afebrile, paroxysmal afib back to sinus rhythm on cardizem gtt. - Current Medication List Current Medications: Active Medications Albuterol/Ipratropium (Duoneb -) 1 amp NEB RQ4H [facility] Last Admin: 04/01/18 04:00 Dose: Not Given Alprazolam (Xanax -) 0.5 mg PO BID PRN PRN Reason: ANXIETY Last Admin: 03/31/18 22:27 Dose: 0.5 mg Amino Acids (Prosource No Carb Liquid Pkt) 30 ml PO BID@0800,1730 [facility] Last Admin: 03/31/18 17:10 Dose: 30 ml Arformoterol Tartrate (Brovana (Restricted To Pulmonology/Resp) -) 1 amp NEB RBID [facility] Last Admin: 03/31/18 21:45 Dose: 1 amp Atorvastatin Calcium (Lipitor -) 10 mg PO HS [facility] Last Admin: 03/31/18 22:21 Dose: 10 mg Bisacodyl (Dulcolax -) 5 mg PO DAILY PRN PRN Reason: CONSTIPATION Budesonide/Formoterol Fumarate (Symbicort 160/4.5mcg -) 2 puff IH BID [facility] Last Admin: 03/31/18 22:21 Dose: 2 inh Diltiazem HCl (Cardizem Injection -) 10 mg IVPUSH Q4H PRN PRN Reason: TACHYCARDIA Last Admin: 03/29/18 09:20 Dose: 10 mg Escitalopram Oxalate (Lexapro -) 20 mg PO DAILY [facility] Last Admin: 03/31/18 10:40 Dose: 20 mg Ferrous Sulfate (Feosol -) 325 mg PO DAILY [facility] Last Admin: 03/31/18 10:40 Dose: 325 mg Daptomycin 500 mg/ Sodium (Chloride) 50 mls @ 50 mls/hr IVPB DAILY [facility]; Protocol Last Admin: 03/31/18 10:47 Dose: 50 mls/hr Ceftaroline Fosamil 600 mg/ (Dextrose) 100 mls @ 100 mls/hr IVPB Q8H-IV [facility]; Protocol Last Admin: 04/01/18 02:36 Dose: 100 mls/hr Diltiazem HCl 125 mg/ Sodium (Chloride) 125 mls @ 5 mls/hr IVPB TITR [facility]; Protocol Last Admin: 03/31/18 11:17 Dose: 5 mg/hr, 5 mls/hr Insulin Aspart (Novolog Vial Sliding Scale -) 1 vial SQ ACHS [facility]; Protocol Last Admin: 04/01/18 06:38 Dose: 2 units Lactobacillus Acidophilus (Bacid -) 1 tab PO DAILY [facility] Last Admin: 03/31/18 10:40 Dose: 1 tab Methylprednisolone Sodium Succinate (Solu-Medrol -) 40 mg IVPUSH BID [facility] Last Admin: 03/31/18 22:21 Dose: 40 mg Nystatin (Nystatin Oral Suspension -) 500,000 units PO Q6HPO [facility] Last Admin: 04/01/18 06:42 Dose: 500,000 units Pantoprazole Sodium (Protonix -) 40 mg PO BID [facility] Last Admin: 03/31/18 22:21 Dose: 40 mg Polyethylene Glycol (Miralax (For Daily Use) -) 17 gm PO DAILY [facility] Tamsulosin HCl (Flomax -) 0.4 mg PO DAILY@0830 [facility] Last Admin: 03/31/18 10:40 Dose: 0.4 mg Tiotropium [place] (Spiriva Respimat) 2 puff IH DAILY [facility] Last Admin: 03/31/18 10:41 Dose: 2 puff - Objective Vital Signs: Vital Signs Temperature 97.9 F 04/01/18 05:39 Pulse Rate 70 04/01/18 05:39 Respiratory Rate 20 04/01/18 05:39 Blood Pressure 111/55 L 04/01/18 05:39 O2 Sat by Pulse Oximetry (%) 95 03/31/18 21:00 Constitutional: Yes: No Distress, Calm, Thin Neck: Yes: Supple Cardiovascular: Yes: Regular Rate and Rhythm Respiratory: Yes: Regular, Diminished, On Nasal O2, SOB Gastrointestinal: Yes: Normal Bowel Sounds, Soft Edema: No Labs: INR, PTT INR 1.37 (0.83-1.09) H 03/26/18 05:30 Fibrinogen 668.0 mg/dL (238-498) H 03/24/18 15:30 - ....Imaging EKG: Report Reviewed (Tele: Rate-controlled afib) Problem List - Problems (1) MRSA (methicillin resistant Staphylococcus aureus) infection Code(s): A49.02 - METHICILLIN RESIS STAPH INFECTION, UNSP SITE (2) Acute and chronic respiratory failure with hypercapnia Code(s): J96.22 - ACUTE AND CHRONIC RESPIRATORY FAILURE WITH HYPERCAPNIA (3) Arteriosclerotic heart disease (ASHD) Code(s): I25.10 - ATHSCL HEART DISEASE OF [place] CORONARY ARTERY W/O ANG PCTRS (4) COPD exacerbation Code(s): J44.1 - CHRONIC OBSTRUCTIVE PULMONARY DISEASE W (ACUTE) EXACERBATION (5) Diastolic dysfunction Code(s): I51.9 - HEART DISEASE, UNSPECIFIED (6) Hyperlipidemia Code(s): E78.5 - HYPERLIPIDEMIA, UNSPECIFIED Qualifiers: Hyperlipidemia type: pure hypercholesterolemia Qualified Code(s): E78.00 - Pure hypercholesterolemia, unspecified; E78.0 - Pure hypercholesterolemia (7) Paroxysmal atrial fibrillation with rapid ventricular response Code(s): I48.0 - PAROXYSMAL ATRIAL FIBRILLATION Assessment/Plan 1. MRSA bacteremia of unclear source 2. Paroxysmal atrial fibrillation with RVR [id number] 3. Acute on Chronic Hypoxic and Hypercapneic Respiratory Failure 4. 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 Diastolic LV dysfunction with class 0-I NYHA classification LV failure, compensated/euvolemic 8. HTN 9. Hypercholesterolemia 10. RUL mass 11. Sick euthyroid syndrome 12. Thrombycytopenia referable to sepsis 13. Anemia 2/2 occult GI bleed PLAN: 1. Daptomycin and Ceftaroline with f/u C&S for clearance, f/u chest and abd/ pelvic CT, LUBNA if persistent bacteremia or fevers and respiratory status stabilizes 2. Continue Cardizem gtt with uptitration as needed for improved HR control, change to oral after studies 3. Slow IV steroid taper, bronchodilators, O2 to keep SpO2 >90%, Trilogy / BiPAP as needed to assist in work of breathing as per the pulmonary 4. Given elevated risk score, continue Eliquis 5 bid with monitor hemoglobin and Plt, transfuse pRBC to maintain Hgb>8.0 5. Continue Lipitor 10 qhs 6. Addition of ACEI or ARB hemodynamics permitting 7. DVT prophylaxis, OOB to chair
[2018-04-01] MEDS: TAMSULOSIN HCL 0.4 MG CAP PO SCH (09:30)
[2018-04-01 09:35] LABS: ALBUMIN 2.1 g/dl (3.4-5.0); ALK PHOS 55 U/L (45-117); ANION GAP 6 MMOL/L (8-16); BILIRUBIN,TOTAL 0.7 mg/dL (0.2-1); BLOOD UREA NITROGEN 22 mg/dL (7-18); CALCIUM 7.5 mg/dL (8.5-10.1); CHLORIDE 102 mmol/L (98-107); CO2 35 mmol/L (21-32); CREATININE 0.4 mg/dL (0.55-1.3); GLUCOSE,RANDOM 158 mg/dL (74-106); MAGNESIUM 2.5 mg/dL (1.8-2.4); POTASSIUM 3.6 mmol/L (3.5-5.1); SGOT/AST 14 U/L (15-37); SGPT/ALT 47 U/L (13-61); SODIUM 143 mmol/L (136-145); TOT PROT 4.7 g/dl (6.4-8.2)
[2018-04-01 09:59] LABS: ANISOCYTOSIS 1+; MACROCYTOSIS 1+; OVALOCYTE 1+; PLATELET ESTIMATE DECREASED
[2018-04-01] MEDS: PANTOPRAZOLE 40 MG TABLET (FP) PO SCH ×2 (10:38→22:01)
[2018-04-01] MEDS: ALPRAZolam 0.25 MG TABLET PO PRN ×2 (10:38→22:00)
[2018-04-01] MEDS: FERROUS SO4 325 MG TABLET (FP) PO SCH (10:39)
[2018-04-01] MEDS: LACTOBACILLUS ACIDOPHILUS 1 TABLET PO SCH (10:39)
[2018-04-01] MEDS: ESCITALOPRAM OXALATE 10 MG TABLET (FP) PO SCH (10:39)
[2018-04-01] MEDS: POLYETHYLENE GLYCOL 3350 119 GM BTL PO SCH (10:49)
[2018-04-01] MEDS: methylPREDNISolone NA SUCC 40 MG/1 ML VIAL IVPUSH SCH ×2 (10:49→22:01)
[2018-04-01] MEDS: DAPTOMYCIN 500 MG in SODIUM CHLORIDE 50 ML IVPB SCH (10:50)
[2018-04-01] MEDS: BUDESONIDE/FORMETEROL FUMARATE 160/4.5 mcg INHALER IH SCH ×2 (11:00→22:01)
[2018-04-01] MEDS: TIOTROPIUM BROMIDE 2.5 MCG (SPIRIVA) RESPIMAT INHALER IH SCH (11:00)
[2018-04-01] MEDS: DILTIAZEM INJECTION 125 MG in SODIUM CHLORIDE 100 ML IVPB SCH (12:57)
--- NOTE | 2018-04-01 12:57 | PN ---
Progress Note (short form) - Note Progress Note: Lying on stretcher as he is going for CT scan. Overall breathing is better. Used Triology overall. Intake & Output 03/29/18 03/30/18 03/31/18 04/01/18 23:59 23:59 23:59 23:59 Intake Total 1760 1550 660 330 Output Total 1300 1000 1800 500 Balance 460 550 -1140 -170 Weight 152 lb 153 lb Last Vital Signs Temp Pulse Resp BP Pulse Ox 97.9 F 70 20 111/55 L 95 04/01/18 05:39 04/01/18 05:39 04/01/18 09:00 04/01/18 05:39 04/01/18 09:00 Active Medications Albuterol/Ipratropium (Duoneb -) 1 amp NEB RQ4H [facility] Last Admin: 04/01/18 11:10 Dose: 1 amp Alprazolam (Xanax -) 0.5 mg PO BID PRN PRN Reason: ANXIETY Last Admin: 04/01/18 10:38 Dose: 0.5 mg Amino Acids (Prosource No Carb Liquid Pkt) 30 ml PO BID@0800,1730 [facility] Last Admin: 04/01/18 09:00 Dose: 30 ml Arformoterol Tartrate (Brovana (Restricted To Pulmonology/Resp) -) 1 amp NEB RBID [facility] Last Admin: 04/01/18 08:00 Dose: 1 amp Atorvastatin Calcium (Lipitor -) 10 mg PO HS [facility] Last Admin: 03/31/18 22:21 Dose: 10 mg Bisacodyl (Dulcolax -) 5 mg PO DAILY PRN PRN Reason: CONSTIPATION Budesonide/Formoterol Fumarate (Symbicort 160/4.5mcg -) 2 puff IH BID [facility] Last Admin: 03/31/18 22:21 Dose: 2 inh Diltiazem HCl (Cardizem Injection -) 10 mg IVPUSH Q4H PRN PRN Reason: TACHYCARDIA Last Admin: 03/29/18 09:20 Dose: 10 mg Escitalopram Oxalate (Lexapro -) 20 mg PO DAILY [facility] Last Admin: 04/01/18 10:39 Dose: 20 mg Ferrous Sulfate (Feosol -) 325 mg PO DAILY [facility] Last Admin: 04/01/18 10:39 Dose: 325 mg Daptomycin 500 mg/ Sodium (Chloride) 50 mls @ 50 mls/hr IVPB DAILY [facility]; Protocol Last Admin: 04/01/18 10:50 Dose: 50 mls/hr Ceftaroline Fosamil 600 mg/ (Dextrose) 100 mls @ 100 mls/hr IVPB Q8H-IV [facility]; Protocol Last Admin: 04/01/18 10:49 Dose: 100 mls/hr Diltiazem HCl 125 mg/ Sodium (Chloride) 125 mls @ 5 mls/hr IVPB TITR [facility]; Protocol Last Admin: 03/31/18 11:17 Dose: 5 mg/hr, 5 mls/hr Insulin Aspart (Novolog Vial Sliding Scale -) 1 vial SQ ACHS [facility]; Protocol Last Admin: 04/01/18 06:38 Dose: 2 units Lactobacillus Acidophilus (Bacid -) 1 tab PO DAILY [facility] Last Admin: 04/01/18 10:39 Dose: 1 tab Methylprednisolone Sodium Succinate (Solu-Medrol -) 40 mg IVPUSH BID [facility] Last Admin: 04/01/18 10:49 Dose: 40 mg Nystatin (Nystatin Oral Suspension -) 500,000 units PO Q6HPO [facility] Last Admin: 04/01/18 06:42 Dose: 500,000 units Pantoprazole Sodium (Protonix -) 40 mg PO BID [facility] Last Admin: 04/01/18 10:38 Dose: 40 mg Polyethylene Glycol (Miralax (For Daily Use) -) 17 gm PO DAILY [facility] Last Admin: 04/01/18 10:49 Dose: Not Given Tamsulosin HCl (Flomax -) 0.4 mg PO DAILY@0830 [facility] Last Admin: 04/01/18 09:30 Dose: 0.4 mg Tiotropium [place] (Spiriva Respimat) 2 puff IH DAILY [facility] Last Admin: 03/31/18 10:41 Dose: 2 puff Constitutional: Yes: NAD Eyes: Yes: WNL HENT: Yes: WNL Neck: Yes: WNL Cardiovascular: Yes: Pulse Irregular, S1, S2 Respiratory: Yes: Few rhonchi, no wheeze Gastrointestinal: Yes: Normal Bowel Sounds, Soft Extremities: Yes: WNL Edema: No Labs: Laboratory Results - last 24 hr 03/31/18 03/31/18 03/31/18 10:26 10:26 16:38 WBC RBC Hgb Hct MCV MCH MCHC RDW Plt Count MPV Absolute Neuts (auto) Neutrophils % Neutrophils % (Manual) Band Neutrophils % Lymphocytes % Lymphocytes % (Manual) Monocytes % Monocytes % (Manual) Eosinophils % Eosinophils % (Manual) Basophils % Basophils % (Manual) Myelocytes % (Man) Promyelocytes % (Man) Blast Cells % (Manual) Nucleated RBC % Metamyelocytes Hypochromia Platelet Estimate Polychromasia Poikilocytosis Anisocytosis Microcytosis Macrocytosis Ovalocytes Retic Count Sodium Potassium Chloride Carbon Dioxide Anion Gap BUN Creatinine Creat Clearance w eGFR POC Glucometer 190 Random Glucose Calcium Magnesium Iron 53 TIBC 265 Iron Saturation 20 Ferritin Total Bilirubin AST ALT Alkaline Phosphatase Total Protein Albumin Stool Occult Blood Blood Type B POSITIVE Antibody Screen Negative Crossmatch See Detail 03/31/18 03/31/18 04/01/18 17:30 21:08 05:30 WBC RBC Hgb Hct MCV MCH MCHC RDW Plt Count MPV Absolute Neuts (auto) Neutrophils % Neutrophils % (Manual) Band Neutrophils % Lymphocytes % Lymphocytes % (Manual) Monocytes % Monocytes % (Manual) Eosinophils % Eosinophils % (Manual) Basophils % Basophils % (Manual) Myelocytes % (Man) Promyelocytes % (Man) Blast Cells % (Manual) Nucleated RBC % Metamyelocytes Hypochromia Platelet Estimate Polychromasia Poikilocytosis Anisocytosis Microcytosis Macrocytosis Ovalocytes Retic Count 1.84 H Sodium Potassium Chloride Carbon Dioxide Anion Gap BUN Creatinine Creat Clearance w eGFR POC Glucometer 242 Random Glucose Calcium Magnesium Iron TIBC Iron Saturation Ferritin Total Bilirubin AST ALT Alkaline Phosphatase Total Protein Albumin Stool Occult Blood Negative Blood Type Antibody Screen Crossmatch 04/01/18 04/01/18 04/01/18 05:30 05:30 06:16 WBC 6.0 RBC 3.03 L Hgb 9.1 L Hct 27.7 L MCV 91.7 MCH 30.0 MCHC 32.8 RDW 14.9 Plt Count 71 L MPV 10.1 Absolute Neuts (auto) 5.8 Neutrophils % 95.7 H Neutrophils % (Manual) 98.0 H Band Neutrophils % 0.0 Lymphocytes % 2.7 L Lymphocytes % (Manual) 0.0 L Monocytes % 1.6 L Monocytes % (Manual) 1 L D Eosinophils % 0.0 Eosinophils % (Manual) 0.0 Basophils % 0.0 Basophils % (Manual) 1.0 D Myelocytes % (Man) 0 Promyelocytes % (Man) 0 Blast Cells % (Manual) 0 Nucleated RBC % 1 H Metamyelocytes 0 Hypochromia 0 Platelet Estimate Decreased Polychromasia 0 Poikilocytosis 1+ Anisocytosis 1+ Microcytosis 0 Macrocytosis 1+ Ovalocytes 1+ Retic Count Sodium 143 Potassium 3.6 Chloride 102 Carbon Dioxide 35 H Anion Gap 6 L BUN 22 H Creatinine 0.4 L Creat Clearance w eGFR > 60 POC Glucometer 185 Random Glucose 158 H Calcium 7.5 L Magnesium 2.5 H Iron TIBC Iron Saturation Ferritin 68.1 Total Bilirubin 0.7 AST 14 L ALT 47 Alkaline Phosphatase 55 Total Protein 4.7 L Albumin 2.1 L Stool Occult Blood Blood Type Antibody Screen Crossmatch 04/01/18 12:24 WBC RBC Hgb Hct MCV MCH MCHC RDW Plt Count MPV Absolute Neuts (auto) Neutrophils % Neutrophils % (Manual) Band Neutrophils % Lymphocytes % Lymphocytes % (Manual) Monocytes % Monocytes % (Manual) Eosinophils % Eosinophils % (Manual) Basophils % Basophils % (Manual) Myelocytes % (Man) Promyelocytes % (Man) Blast Cells % (Manual) Nucleated RBC % Metamyelocytes Hypochromia Platelet Estimate Polychromasia Poikilocytosis Anisocytosis Microcytosis Macrocytosis Ovalocytes Retic Count Sodium Potassium Chloride Carbon Dioxide Anion Gap BUN Creatinine Creat Clearance w eGFR POC Glucometer 154 Random Glucose Calcium Magnesium Iron TIBC Iron Saturation Ferritin Total Bilirubin AST ALT Alkaline Phosphatase Total Protein Albumin Stool Occult Blood Blood Type Antibody Screen Crossmatch Problem List - Problems (1) MRSA (methicillin resistant Staphylococcus aureus) infection Code(s): A49.02 - METHICILLIN RESIS STAPH INFECTION, UNSP SITE (2) Diarrhea Code(s): R19.7 - DIARRHEA, UNSPECIFIED (3) Sepsis Code(s): A41.9 - SEPSIS, UNSPECIFIED ORGANISM (4) Acute and chronic respiratory failure Code(s): J96.20 - ACUTE AND CHR RESP FAILURE, UNSP W HYPOXIA OR HYPERCAPNIA Qualifiers: Respiratory failure complication: hypoxia and hypercapnia Qualified Code(s) : J96.21 - Acute and chronic respiratory failure with hypoxia; J96.22 - Acute and chronic respiratory failure with hypercapnia (5) Acute and chronic respiratory failure with hypercapnia Code(s): J96.22 - ACUTE AND CHRONIC RESPIRATORY FAILURE WITH HYPERCAPNIA (6) Arteriosclerotic heart disease (ASHD) Code(s): I25.10 - ATHSCL HEART DISEASE OF [place] CORONARY ARTERY W/O ANG PCTRS (7) COPD exacerbation Code(s): J44.1 - CHRONIC OBSTRUCTIVE PULMONARY DISEASE W (ACUTE) EXACERBATION (8) Pulmonary hypertension Code(s): I27.20 - PULMONARY HYPERTENSION, UNSPECIFIED Assessment/Plan Acute on Chronic Hypoxic Respiratory Failure improving Severe Sepsis MRAS bacteremia Atrial Fibrillation with RVR Acute COPD Exacerbation CAD LV Diastolic Dysfunction Pulmonary HTN Thrombocytopenia Anemia - For CT scan - ABX per ID - rate control - AC - Wean Solumedrol - inhaled bronchodilators standing and PRN - Trilogy to assist in work of breathing - O2 to keep SpO2 >90% - aspiration precautions - normal transfusion threshold Dr Donovan
--- NOTE | 2018-04-01 16:45 | PN ---
Progress Note (short form) - Note Progress Note: fatigued on cardizem drip rate controlled Vital Signs Period Temp Pulse Resp BP Sys/Morgan Pulse Ox Last 24 Hr 97.6 F-98.4 F 70-99 20-20 105-112/46-59 95-95 left subconjunctival hemorrhages tiny cor-rrr lungs decreased bs at bases abd soft,nt ext no edema ecchymoses of the arms unchanged ct chest/abd/pelvis- splenic infarcts CBC, BMP 04/01/18 05:30 04/01/18 05:30 Microbiology 03/29/18 05:45 Blood - Peripheral Venous Blood Culture - Final S Aureus 03/31/18 05:48 Blood - Peripheral Venous Blood Culture - Preliminary NO GROWTH OBTAINED AFTER 24 HOURS, INCUBATION TO CONTINUE FOR 4 DAYS. 03/31/18 05:15 Blood - Peripheral Venous Blood Culture - Preliminary NO GROWTH OBTAINED AFTER 24 HOURS, INCUBATION TO CONTINUE FOR 4 DAYS. 03/29/18 05:30 Blood - Peripheral Venous Blood Culture - Preliminary NO GROWTH OBTAINED AFTER 72 HOURS, INCUBATION TO CONTINUE FOR 2 DAYS. 03/27/18 06:10 Blood - Peripheral Venous Blood Culture - Final S Aureus 03/27/18 05:30 Blood - Peripheral Venous Blood Culture - Final S Aureus 03/25/18 12:20 Blood - Peripheral Venous Blood Culture - Final S Aureus 03/25/18 12:05 Blood - Peripheral Venous Blood Culture - Final S Aureus 03/24/18 11:53 Blood - Peripheral Venous Blood Culture - Final Presumptive Mrsa (Pbp2a Pos) 03/24/18 11:37 Blood - Peripheral Venous Blood Culture - Final S Aureus 03/24/18 13:13 Urine - Urine - Catheterized Urine Culture - Final NO GROWTH OBTAINED a/p MRSA bacteremia/clinical endocarditis- splenic infarcts, eye lesions continue ceftaroline/daptomycin d/w cardiology to f/u echo ?is he a candidate for LUBNA given his endstage lung disease? repeat blood cultures negative at 24H d/w stable thrombocytopenia endstage copd rapid afib-on cardizem drip d/w d/w PMD d/w cardiology Problem List - Problems (1) Sepsis Code(s): A41.9 - SEPSIS, UNSPECIFIED ORGANISM (2) Fever Code(s): R50.9 - FEVER, UNSPECIFIED Qualifiers: Fever type: unspecified Qualified Code(s): R50.9 - Fever, unspecified (3) Acute and chronic respiratory failure Code(s): J96.20 - ACUTE AND CHR RESP FAILURE, UNSP W HYPOXIA OR HYPERCAPNIA Qualifiers: Respiratory failure complication: hypoxia and hypercapnia Qualified Code(s) : J96.21 - Acute and chronic respiratory failure with hypoxia; J96.22 - Acute and chronic respiratory failure with hypercapnia (4) Paroxysmal A-fib Code(s): I48.0 - PAROXYSMAL ATRIAL FIBRILLATION
[2018-04-01] MEDS: ATORVASTATIN CA 10 MG TABLET (FP) PO SCH (22:01)
[2018-04-02] MEDS: NYSTATIN 500,000 UNITS/5 ML SUSPENSION PO SCH ×4 (00:20→17:21)
[2018-04-02] MEDS ORDERED: PT OWN MED DRAWER 7, Y5N ONE ×5 (01:51→19:36)
[2018-04-02] MEDS: CEFTAROLINE FOSAMIL ACETATE 600 MG in DEXTROSE 5%-WATER - 100 ML IVPB SCH ×3 (02:26→17:20)
[2018-04-02] MEDS: ALBUTEROL SO4 2.5/IPRATROPIUM 0.5 INH SOL 3 ML VIAL.NEB. NEB SCH ×5 (03:30→20:21)
[2018-04-02] MEDS: INSULIN SLIDING SCALE (NOVOLOG) 1 VIAL SQ SCH ×4 (06:30→22:16)
[2018-04-02 06:59] LABS: HEMATOCRIT 27.9 % (35.4-49); HEMOGLOBIN 8.9 GM/dL (11.7-16.9); MCH 29.4 pg (25.7-33.7); MCHC 31.9 g/dl (32.0-35.9); MEAN CELL VOLUME 92.1 fl (80-96); MEAN PLT VOLUME 10.4 fl (7.5-11.1); MONO % 1.6 % (3.8-10.2); NEUT % 96.4 % (42.8-82.8); PLATELET COUNT 60 K/MM3 (134-434); RBC 3.03 M/mm3 (4.00-5.60); RDW 14.6 % (11.9-15.9); WHITE BLOOD COUNT 6.9 K/mm3 (4.0-10.0)
[2018-04-02 07:58] LABS: ALBUMIN 2.1 g/dl (3.4-5.0); ALK PHOS 58 U/L (45-117); ANION GAP 6 MMOL/L (8-16); BILIRUBIN,TOTAL 0.5 mg/dL (0.2-1); BLOOD UREA NITROGEN 23 mg/dL (7-18); CALCIUM 7.8 mg/dL (8.5-10.1); CHLORIDE 100 mmol/L (98-107); CO2 34 mmol/L (21-32); CREATININE 0.4 mg/dL (0.55-1.3); GLUCOSE,RANDOM 188 mg/dL (74-106); MAGNESIUM 2.6 mg/dL (1.8-2.4); POTASSIUM 3.9 mmol/L (3.5-5.1); SGOT/AST 17 U/L (15-37); SGPT/ALT 42 U/L (13-61); SODIUM 140 mmol/L (136-145); TOT PROT 4.7 g/dl (6.4-8.2)
[2018-04-02] MEDS: ARFORMOTEROL TARTRATE 15 MCG/2 ML VIAL NEB SCH ×2 (08:27→20:20)
[2018-04-02] MEDS: AMINO ACIDS/PROTEIN HYDROLYS 30 ML LIQUID.PKT PO SCH ×2 (08:55→17:20)
[2018-04-02] MEDS: DILTIAZEM INJECTION 125 MG in SODIUM CHLORIDE 100 ML IVPB SCH (09:04)
[2018-04-02] MEDS: ALPRAZolam 0.25 MG TABLET PO PRN (09:04)
[2018-04-02] MEDS: TAMSULOSIN HCL 0.4 MG CAP PO SCH (09:05)
[2018-04-02 10:14] LABS: CARCINOEMBRYONIC ANTIGEN 5.6 ng/mL (0.0-4.7)
[2018-04-02] MEDS: methylPREDNISolone NA SUCC 40 MG/1 ML VIAL IVPUSH SCH ×2 (10:16→21:46)
[2018-04-02] MEDS: PANTOPRAZOLE 40 MG TABLET (FP) PO SCH ×2 (10:16→21:45)
[2018-04-02] MEDS: FERROUS SO4 325 MG TABLET (FP) PO SCH (10:16)
[2018-04-02] MEDS: LACTOBACILLUS ACIDOPHILUS 1 TABLET PO SCH (10:16)
[2018-04-02] MEDS: ESCITALOPRAM OXALATE 10 MG TABLET (FP) PO SCH (10:16)
[2018-04-02] MEDS: BUDESONIDE/FORMETEROL FUMARATE 160/4.5 mcg INHALER IH SCH ×2 (10:18→22:16)
[2018-04-02] MEDS: TIOTROPIUM BROMIDE 2.5 MCG (SPIRIVA) RESPIMAT INHALER IH SCH (10:18)
[2018-04-02] MEDS: POLYETHYLENE GLYCOL 3350 119 GM BTL PO SCH (10:19)
[2018-04-02] MEDS: DAPTOMYCIN 500 MG in SODIUM CHLORIDE 50 ML IVPB SCH (10:19)
--- NOTE | 2018-04-02 11:00 | PN ---
Progress Note, Physician Chief Complaint: COPD exacerbation MRSA Bacteremia History of Present Illness: NAD, feels much better Breathing much improved Was started on Cardizem drip, rate improved in 70's On Daptomycin 500 mg IV daily and ceftaroline 600 mg IV Q8H for MRSA bacteremia - Current Medication List Current Medications: Active Medications Albuterol/Ipratropium (Duoneb -) 1 amp NEB RQ4H [facility] Last Admin: 04/02/18 08:27 Dose: 1 amp Alprazolam (Xanax -) 0.5 mg PO BID PRN PRN Reason: ANXIETY Last Admin: 04/02/18 09:04 Dose: 0.5 mg Amino Acids (Prosource No Carb Liquid Pkt) 30 ml PO BID@0800,1730 [facility] Last Admin: 04/02/18 08:55 Dose: 30 ml Arformoterol Tartrate (Brovana (Restricted To Pulmonology/Resp) -) 1 amp NEB RBID [facility] Last Admin: 04/02/18 08:27 Dose: 1 amp Atorvastatin Calcium (Lipitor -) 10 mg PO HS [facility] Last Admin: 04/01/18 22:01 Dose: 10 mg Bisacodyl (Dulcolax -) 5 mg PO DAILY PRN PRN Reason: CONSTIPATION Budesonide/Formoterol Fumarate (Symbicort 160/4.5mcg -) 2 puff IH BID [facility] Last Admin: 04/02/18 10:18 Dose: 2 puff Diltiazem HCl (Cardizem Injection -) 10 mg IVPUSH Q4H PRN PRN Reason: TACHYCARDIA Last Admin: 03/29/18 09:20 Dose: 10 mg Escitalopram Oxalate (Lexapro -) 20 mg PO DAILY [facility] Last Admin: 04/02/18 10:16 Dose: 20 mg Ferrous Sulfate (Feosol -) 325 mg PO DAILY [facility] Last Admin: 04/02/18 10:16 Dose: 325 mg Daptomycin 500 mg/ Sodium (Chloride) 50 mls @ 50 mls/hr IVPB DAILY [facility]; Protocol Last Admin: 04/02/18 10:19 Dose: 50 mls/hr Ceftaroline Fosamil 600 mg/ (Dextrose) 100 mls @ 100 mls/hr IVPB Q8H-IV [facility]; Protocol Last Admin: 04/02/18 10:18 Dose: 100 mls/hr Diltiazem HCl 125 mg/ Sodium (Chloride) 125 mls @ 5 mls/hr IVPB TITR [facility]; Protocol Last Admin: 04/01/18 12:57 Dose: 5 mg/hr, 5 mls/hr Insulin Aspart (Novolog Vial Sliding Scale -) 1 vial SQ ACHS [facility]; Protocol Last Admin: 04/02/18 06:30 Dose: 4 units Lactobacillus Acidophilus (Bacid -) 1 tab PO DAILY [facility] Last Admin: 04/02/18 10:16 Dose: 1 tab Methylprednisolone Sodium Succinate (Solu-Medrol -) 30 mg IVPUSH BID [facility] Last Admin: 04/02/18 10:16 Dose: 30 mg Nystatin (Nystatin Oral Suspension -) 500,000 units PO Q6HPO [facility] Last Admin: 04/02/18 06:30 Dose: 500,000 units Pantoprazole Sodium (Protonix -) 40 mg PO BID [facility] Last Admin: 04/02/18 10:16 Dose: 40 mg Polyethylene Glycol (Miralax (For Daily Use) -) 17 gm PO DAILY [facility] Last Admin: 04/02/18 10:19 Dose: Not Given Tamsulosin HCl (Flomax -) 0.4 mg PO DAILY@0830 [facility] Last Admin: 04/02/18 09:05 Dose: 0.4 mg Tiotropium [place] (Spiriva Respimat) 2 puff IH DAILY [facility] Last Admin: 04/02/18 10:18 Dose: 2 puff - Objective Vital Signs: Vital Signs Temperature 98.2 F 04/02/18 01:53 Pulse Rate 70 04/02/18 01:53 Respiratory Rate 18 04/02/18 01:53 Blood Pressure 115/42 L 04/02/18 01:53 O2 Sat by Pulse Oximetry (%) 96 04/01/18 21:00 Constitutional: Yes: Well Nourished, Calm, Mild Distress Cardiovascular: Yes: Pulse Irregular Respiratory: Yes: On Nasal O2, SOB, SOB on Exertion, Tachypnea Gastrointestinal: Yes: Normal Bowel Sounds, Soft Musculoskeletal: Yes: Muscle Weakness Extremities: Yes: WNL Edema: No Peripheral Pulses WNL: Yes Neurological: Yes: Alert, Oriented Psychiatric: Yes: Alert, Oriented Labs: CBC, BMP 04/02/18 05:30 04/02/18 05:30 INR, PTT INR 1.37 (0.83-1.09) H 03/26/18 05:30 Fibrinogen 668.0 mg/dL (238-498) H 03/24/18 15:30 Problem List - Problems (1) Sepsis Assessment/Plan: -Lactic acid normal -Afebrile -BC: Microbiology 03/31/18 05:48 Blood - Peripheral Venous Blood Culture - Preliminary NO GROWTH OBTAINED AFTER 48 HOURS, INCUBATION TO CONTINUE FOR 3 DAYS. 03/31/18 05:15 Blood - Peripheral Venous Blood Culture - Preliminary NO GROWTH OBTAINED AFTER 48 HOURS, INCUBATION TO CONTINUE FOR 3 DAYS. 03/29/18 05:30 Blood - Peripheral Venous Blood Culture - Preliminary NO GROWTH OBTAINED AFTER 96 HOURS, INCUBATION TO CONTINUE FOR 1 DAYS. 03/29/18 05:45 Blood - Peripheral Venous Blood Culture - Final S Aureus 03/27/18 06:10 Blood - Peripheral Venous Blood Culture - Final S Aureus 03/27/18 05:30 Blood - Peripheral Venous Blood Culture - Final S Aureus 03/25/18 12:20 Blood - Peripheral Venous Blood Culture - Final S Aureus 03/25/18 12:05 Blood - Peripheral Venous Blood Culture - Final Mr S Aureus 03/24/18 11:53 Blood - Peripheral Venous Blood Culture - Final Presumptive Mrsa (Pbp2a Pos) 03/24/18 11:37 Blood - Peripheral Venous Blood Culture - Final Mr S Aureus 03/24/18 13:13 Urine - Urine - Catheterized Urine Culture - Final NO GROWTH OBTAINED -On IV abx, would need it for 4-6 weeks -ID on board Code(s): A41.9 - SEPSIS, UNSPECIFIED ORGANISM (2) Acute and chronic respiratory failure Assessment/Plan: -Seen by pulmonary -BIPAP, to keep SpO2 > 90% -Solumedrol 30 mg BID -Bronchodilators -IV abx Code(s): J96.20 - ACUTE AND CHR RESP FAILURE, UNSP W HYPOXIA OR HYPERCAPNIA Qualifiers: Respiratory failure complication: hypoxia and hypercapnia Qualified Code(s) : J96.21 - Acute and chronic respiratory failure with hypoxia; J96.22 - Acute and chronic respiratory failure with hypercapnia (3) COPD exacerbation Assessment/Plan: -Pulmonary on board -BIPAP -Bronchodilators -Solumedrol 30 mg bid -Nasal O2 to keep SpO2 >90% Code(s): J44.1 - CHRONIC OBSTRUCTIVE PULMONARY DISEASE W (ACUTE) EXACERBATION (4) Paroxysmal atrial fibrillation with rapid ventricular response Assessment/Plan: -Tele monitoring -On Eliquis 5 mg po bid -cardiology on board -On diltiazem drip @ 5 mcg/hr -Diltiazem IVP 10 mg IVP prn ordered Code(s): I48.0 - PAROXYSMAL ATRIAL FIBRILLATION (5) Elevated troponin Assessment/Plan: -likely 2/2 to demand ischemia -repeat troponin series Q8H x 3-trending down Code(s): R74.8 - ABNORMAL LEVELS OF OTHER SERUM ENZYMES (6) Hypoalbuminemia Assessment/Plan: -due to decreased PO intake -Prosource Code(s): E88.09 - OTH DISORDERS OF PLASMA-PROTEIN METABOLISM, NEC (7) Protein calorie malnutrition Assessment/Plan: -due to decreased PO intake -Prosource Code(s): E46 - UNSPECIFIED PROTEIN-CALORIE MALNUTRITION (8) Anemia Assessment/Plan: -stable -B12, Thyroid profile and folic acid unremarkable -Iron % low-unable to give venofer due to bacteremia -start ferrous sulfate 325 mg po daily -check stool OB- negative -monitor trend Code(s): D64.9 - ANEMIA, UNSPECIFIED Qualifiers: Anemia type: unspecified type Qualified Code(s): D64.9 - Anemia, unspecified (9) Anxiety Assessment/Plan: -Increase alprazolam to 0.5 mg po BID -On Lexapro 20 mg po daily -Psychiatry consult Code(s): F41.9 - ANXIETY DISORDER, UNSPECIFIED (10) Hyperthyroidism Assessment/Plan: -borderline -Endocrinology consult ordered Code(s): E05.90 - THYROTOXICOSIS, UNSP WITHOUT THYROTOXIC CRISIS OR STORM Assessment/Plan see problem list Physical therapy
--- NOTE | 2018-04-02 11:06 | PN ---
Progress Note, Physician History of Present Illness: Feels weak, afebrile, paroxysmal afib back to sinus rhythm on cardizem gtt. - Current Medication List Current Medications: Active Medications Albuterol/Ipratropium (Duoneb -) 1 amp NEB RQ4H TA Last Admin: 04/02/18 08:27 Dose: 1 amp Alprazolam (Xanax -) 0.5 mg PO BID PRN PRN Reason: ANXIETY Last Admin: 04/02/18 09:04 Dose: 0.5 mg Amino Acids (Prosource No Carb Liquid Pkt) 30 ml PO BID@0800,1730 [facility] Last Admin: 04/02/18 08:55 Dose: 30 ml Arformoterol Tartrate (Brovana (Restricted To Pulmonology/Resp) -) 1 amp NEB RBID [facility] Last Admin: 04/02/18 08:27 Dose: 1 amp Atorvastatin Calcium (Lipitor -) 10 mg PO HS [facility] Last Admin: 04/01/18 22:01 Dose: 10 mg Bisacodyl (Dulcolax -) 5 mg PO DAILY PRN PRN Reason: CONSTIPATION Budesonide/Formoterol Fumarate (Symbicort 160/4.5mcg -) 2 puff IH BID [facility] Last Admin: 04/02/18 10:18 Dose: 2 puff Diltiazem HCl (Cardizem Injection -) 10 mg IVPUSH Q4H PRN PRN Reason: TACHYCARDIA Last Admin: 03/29/18 09:20 Dose: 10 mg Escitalopram Oxalate (Lexapro -) 20 mg PO DAILY [facility] Last Admin: 04/02/18 10:16 Dose: 20 mg Ferrous Sulfate (Feosol -) 325 mg PO DAILY [facility] Last Admin: 04/02/18 10:16 Dose: 325 mg Daptomycin 500 mg/ Sodium (Chloride) 50 mls @ 50 mls/hr IVPB DAILY [facility]; Protocol Last Admin: 04/02/18 10:19 Dose: 50 mls/hr Ceftaroline Fosamil 600 mg/ (Dextrose) 100 mls @ 100 mls/hr IVPB Q8H-IV [facility]; Protocol Last Admin: 04/02/18 10:18 Dose: 100 mls/hr Diltiazem HCl 125 mg/ Sodium (Chloride) 125 mls @ 5 mls/hr IVPB TITR TA; Protocol Last Admin: 04/01/18 12:57 Dose: 5 mg/hr, 5 mls/hr Insulin Aspart (Novolog Vial Sliding Scale -) 1 vial SQ ACHS [facility]; Protocol Last Admin: 04/02/18 06:30 Dose: 4 units Lactobacillus Acidophilus (Bacid -) 1 tab PO DAILY [facility] Last Admin: 04/02/18 10:16 Dose: 1 tab Methylprednisolone Sodium Succinate (Solu-Medrol -) 30 mg IVPUSH BID [facility] Last Admin: 04/02/18 10:16 Dose: 30 mg Nystatin (Nystatin Oral Suspension -) 500,000 units PO Q6HPO [facility] Last Admin: 04/02/18 06:30 Dose: 500,000 units Pantoprazole Sodium (Protonix -) 40 mg PO BID [facility] Last Admin: 04/02/18 10:16 Dose: 40 mg Polyethylene Glycol (Miralax (For Daily Use) -) 17 gm PO DAILY [facility] Last Admin: 04/02/18 10:19 Dose: Not Given Tamsulosin HCl (Flomax -) 0.4 mg PO DAILY@0830 [facility] Last Admin: 04/02/18 09:05 Dose: 0.4 mg Tiotropium [place] (Spiriva Respimat) 2 puff IH DAILY [facility] Last Admin: 04/02/18 10:18 Dose: 2 puff - Objective Vital Signs: Vital Signs Temperature 98.2 F 04/02/18 01:53 Pulse Rate 70 04/02/18 01:53 Respiratory Rate 18 04/02/18 01:53 Blood Pressure 115/42 L 04/02/18 01:53 O2 Sat by Pulse Oximetry (%) 96 04/01/18 21:00 Constitutional: Yes: No Distress, Calm, Thin Neck: Yes: Supple Cardiovascular: Yes: Regular Rate and Rhythm Respiratory: Yes: Regular, Diminished, On BiPap, On Nasal O2 Gastrointestinal: Yes: Normal Bowel Sounds, Soft Edema: No Labs: CBC, BMP 04/02/18 05:30 04/02/18 05:30 INR, PTT INR 1.37 (0.83-1.09) H 03/26/18 05:30 Fibrinogen 668.0 mg/dL (238-498) H 03/24/18 15:30 - ....Imaging Cat Scan: Report Reviewed (Splenic infarcts, no change in right pleural based apical mass, mod effusion R>L) Problem List - Problems (1) MRSA (methicillin resistant Staphylococcus aureus) infection Code(s): A49.02 - METHICILLIN RESIS STAPH INFECTION, UNSP SITE (2) Acute and chronic respiratory failure with hypercapnia Code(s): J96.22 - ACUTE AND CHRONIC RESPIRATORY FAILURE WITH HYPERCAPNIA (3) Arteriosclerotic heart disease (ASHD) Code(s): I25.10 - ATHSCL HEART DISEASE OF [place] CORONARY ARTERY W/O ANG PCTRS (4) COPD exacerbation Code(s): J44.1 - CHRONIC OBSTRUCTIVE PULMONARY DISEASE W (ACUTE) EXACERBATION (5) Diastolic dysfunction Code(s): I51.9 - HEART DISEASE, UNSPECIFIED (6) Hyperlipidemia Code(s): E78.5 - HYPERLIPIDEMIA, UNSPECIFIED Qualifiers: Hyperlipidemia type: pure hypercholesterolemia Qualified Code(s): E78.00 - Pure hypercholesterolemia, unspecified; E78.0 - Pure hypercholesterolemia (7) Paroxysmal atrial fibrillation with rapid ventricular response Code(s): I48.0 - PAROXYSMAL ATRIAL FIBRILLATION Assessment/Plan 1. MRSA bacteremia of unclear source with splenic infarct, suspect endocarditis 2. Paroxysmal atrial fibrillation with RVR [id number] 3. Acute on Chronic Hypoxic and Hypercapneic Respiratory Failure improving 4. 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 Acute on chronic diastolic failure with pleural effusions R>L 8. HTN 9. Hypercholesterolemia 10. RUL mass 11. Sick euthyroid syndrome 12. Thrombycytopenia referable to sepsis 13. Anemia 2/2 occult GI bleed PLAN: 1. Daptomycin and Ceftaroline with f/u C&S for clearance, LUBNA if persistent bacteremia or fevers and respiratory status stabilizes, would likely require 6 week of abx post clearance 2. Change Cardizem gtt to Cardizem CD 120 qd given HR control, IV diuresis as needed with monitor diuretic response, renal function and electrolytes 3. Slow IV steroid taper with GI protection, bronchodilators, O2 to keep SpO2 > 90%, Trilogy / BiPAP as needed to assist in work of breathing as per the pulmonary 4. Given elevated risk score, continue Eliquis 5 bid with monitor hemoglobin and Plt, transfuse pRBC to maintain Hgb>8.0 5. Continue Lipitor 10 qhs 6. Addition of ACEI or ARB hemodynamics permitting 7. DVT prophylaxis, OOB to chair
[2018-04-02] MEDS ORDERED: FUROSEMIDE 40 MG/4 ML INJECTABLE VIAL IVPUSH ONE (11:28)
--- NOTE | 2018-04-02 12:44 | PN ---
Progress Note (short form) - Note Progress Note: PULMONARY WELL KNOWN BY OUR SERVICE VSS/AFEBRILE ANICTERIC/PALE DIMINISHED DIFFUSE BREATH SOUNDS NO WHEEZING S1S2 BS+ NO EDEMA/MULTIPLE AREAS OF BRUISING MICRO/NOTES/IMAGES/MEDS NOTED Acute on Chronic Hypoxic Respiratory Failure Chronic cavitary lung disease Severe Sepsis MRAS bacteremia Atrial Fibrillation with RVR Acute COPD Exacerbation CAD LV Diastolic Dysfunction Pulmonary HTN Thrombocytopenia Anemia - ABX per ID - rate control - AC - Wean Solumedrol - inhaled bronchodilators standing and PRN - Trilogy to assist in work of breathing - O2 to keep SpO2 >90% - aspiration precautions - normal transfusion threshold Janeth HINSON MD
[2018-04-02 15:29] LABS: ANISOCYTOSIS 2+; MACROCYTOSIS 0; PLATELET ESTIMATE DECREASED; TEAR DROP CELLS 2+
--- NOTE | 2018-04-02 15:29 | PN ---
Progress Note (short form) - Note Progress Note: fatigued on cardizem drip rate controlled no back pain, no other complaints Vital Signs Period Temp Pulse Resp BP Sys/Morgan Pulse Ox Last 24 Hr 97.5 F-98.2 F 66-71 18-20 111-121/41-47 96-97 cor-rrr lungs decreased bs at bases abd soft,nt exxt trace edema CBC, BMP 04/02/18 05:30 04/02/18 05:30 Microbiology 03/31/18 05:48 Blood - Peripheral Venous Blood Culture - Preliminary NO GROWTH OBTAINED AFTER 48 HOURS, INCUBATION TO CONTINUE FOR 3 DAYS. 03/31/18 05:15 Blood - Peripheral Venous Blood Culture - Preliminary NO GROWTH OBTAINED AFTER 48 HOURS, INCUBATION TO CONTINUE FOR 3 DAYS. 03/29/18 05:30 Blood - Peripheral Venous Blood Culture - Preliminary NO GROWTH OBTAINED AFTER 96 HOURS, INCUBATION TO CONTINUE FOR 1 DAYS. 03/29/18 05:45 Blood - Peripheral Venous Blood Culture - Final Mr S Aureus 03/27/18 06:10 Blood - Peripheral Venous Blood Culture - Final Mr S Aureus 03/27/18 05:30 Blood - Peripheral Venous Blood Culture - Final Mr S Aureus 03/25/18 12:20 Blood - Peripheral Venous Blood Culture - Final Mr S Aureus 03/25/18 12:05 Blood - Peripheral Venous Blood Culture - Final Mr S Aureus 03/24/18 11:53 Blood - Peripheral Venous Blood Culture - Final Presumptive Mrsa (Pbp2a Pos) 03/24/18 11:37 Blood - Peripheral Venous Blood Culture - Final Mr S Aureus 03/24/18 13:13 Urine - Urine - Catheterized Urine Culture - Final NO GROWTH OBTAINED Current Medications Albuterol/Ipratropium (Duoneb -) 1 amp NEB RQ4H [facility] Last Admin: 04/02/18 11:37 Dose: 1 amp Alprazolam (Xanax -) 0.5 mg PO BID PRN PRN Reason: ANXIETY Last Admin: 04/02/18 09:04 Dose: 0.5 mg Amino Acids (Prosource No Carb Liquid Pkt) 30 ml PO BID@0800,1730 [facility] Last Admin: 04/02/18 08:55 Dose: 30 ml Arformoterol Tartrate (Brovana (Restricted To Pulmonology/Resp) -) 1 amp NEB RBID [facility] Last Admin: 04/02/18 08:27 Dose: 1 amp Atorvastatin Calcium (Lipitor -) 10 mg PO HS [facility] Last Admin: 04/01/18 22:01 Dose: 10 mg Bisacodyl (Dulcolax -) 5 mg PO DAILY PRN PRN Reason: CONSTIPATION Budesonide/Formoterol Fumarate (Symbicort 160/4.5mcg -) 2 puff IH BID [facility] Last Admin: 04/02/18 10:18 Dose: 2 puff Diltiazem HCl (Cardizem Injection -) 10 mg IVPUSH Q4H PRN PRN Reason: TACHYCARDIA Last Admin: 03/29/18 09:20 Dose: 10 mg Diltiazem HCl (Cardizem Cd -) 120 mg PO DAILY [facility] Last Admin: 04/02/18 11:43 Dose: 120 mg Escitalopram Oxalate (Lexapro -) 20 mg PO DAILY [facility] Last Admin: 04/02/18 10:16 Dose: 20 mg Ferrous Sulfate (Feosol -) 325 mg PO DAILY [facility] Last Admin: 04/02/18 10:16 Dose: 325 mg Daptomycin 500 mg/ Sodium (Chloride) 50 mls @ 50 mls/hr IVPB DAILY [facility]; Protocol Last Admin: 04/02/18 10:19 Dose: 50 mls/hr Ceftaroline Fosamil 600 mg/ (Dextrose) 100 mls @ 100 mls/hr IVPB Q8H-IV [facility]; Protocol Last Admin: 04/02/18 10:18 Dose: 100 mls/hr Insulin Aspart (Novolog Vial Sliding Scale -) 1 vial SQ ACHS [facility]; Protocol Last Admin: 04/02/18 11:41 Dose: 4 units Lactobacillus Acidophilus (Bacid -) 1 tab PO DAILY [facility] Last Admin: 04/02/18 10:16 Dose: 1 tab Methylprednisolone Sodium Succinate (Solu-Medrol -) 30 mg IVPUSH BID [facility] Last Admin: 04/02/18 10:16 Dose: 30 mg Nystatin (Nystatin Oral Suspension -) 500,000 units PO Q6HPO [facility] Last Admin: 04/02/18 11:41 Dose: 500,000 units Pantoprazole Sodium (Protonix -) 40 mg PO BID [facility] Last Admin: 04/02/18 10:16 Dose: 40 mg Polyethylene Glycol (Miralax (For Daily Use) -) 17 gm PO DAILY [facility] Last Admin: 04/02/18 10:19 Dose: Not Given Tamsulosin HCl (Flomax -) 0.4 mg PO DAILY@0830 [facility] Last Admin: 04/02/18 09:05 Dose: 0.4 mg Tiotropium [place] (Spiriva Respimat) 2 puff IH DAILY [facility] Last Admin: 04/02/18 10:18 Dose: 2 puff a/p MRSA bacteremia/clinical endocarditis- splenic infarcts, eye lesions continue ceftaroline/daptomycin d/w cardiology to f/u echo ?is he a candidate for LUBNA given his endstage lung disease? repeat blood cultures negative at 48h will repeat in am d/w will require 6 weeks iv antibiotics stable thrombocytopenia endstage copd rapid afib-on cardizem drip Problem List - Problems (1) Sepsis Code(s): A41.9 - SEPSIS, UNSPECIFIED ORGANISM (2) Fever Code(s): R50.9 - FEVER, UNSPECIFIED Qualifiers: Fever type: unspecified Qualified Code(s): R50.9 - Fever, unspecified (3) Acute and chronic respiratory failure Code(s): J96.20 - ACUTE AND CHR RESP FAILURE, UNSP W HYPOXIA OR HYPERCAPNIA Qualifiers: Respiratory failure complication: hypoxia and hypercapnia Qualified Code(s) : J96.21 - Acute and chronic respiratory failure with hypoxia; J96.22 - Acute and chronic respiratory failure with hypercapnia (4) Paroxysmal A-fib Code(s): I48.0 - PAROXYSMAL ATRIAL FIBRILLATION
[2018-04-02] MEDS: dilTIAZem HCL 50 MG/10 ML - 10 ML VIAL IVPUSH PRN (16:06)
--- NOTE | 2018-04-02 21:03 | PN ---
Progress Note (short form) - Note Progress Note: Current Active Problems Anxiety (Acute) Diarrhea (Acute) Diverticulosis (Acute) Elevated troponin (Acute) Family history of colon cancer in mother (Acute) Gastrointestinal bleeding (Acute) History of colonic polyps (Acute) Hypoalbuminemia (Acute) Inguinal hernia of left side without obstruction or gangrene (Acute) MRSA (methicillin resistant Staphylococcus aureus) infection (Acute) Protein calorie malnutrition (Acute) Sepsis (Acute) euthyroid sick syndrome Abnormal Lab Results 04/01/18 04/02/18 04/02/18 05:30 05:30 05:30 RBC 3.03 L Hgb 8.9 L Hct 27.9 L MCHC 31.9 L Plt Count 60 L Neutrophils % 96.4 H Neutrophils % (Manual) 87.0 H Lymphocytes % 2.0 L D Lymphocytes % (Manual) 3.0 L D Monocytes % 1.6 L Monocytes % (Manual) 0 L D Nucleated RBC % 1 H Metamyelocytes 3 H D Carbon Dioxide 34 H Anion Gap 6 L BUN 23 H Creatinine 0.4 L Random Glucose 188 H Calcium 7.8 L Magnesium 2.6 H Total Protein 4.7 L Albumin 2.1 L Carcinoembryonic Ag 5.6 H Laboratory Tests 03/11/18 03/11/18 03/13/18 05:30 19:30 05:30 TSH 0.12 L D Free T4 1.13 Free T3 2.2 Thyroid Stim Immunoglob 03/25/18 03/29/18 09:00 05:30 TSH 0.24 L D Free T4 1.02 Free T3 Thyroid Stim Immunoglob <0.10 plan: no evidence for hyperthyroidism no need for thyroid intervention
[2018-04-02] MEDS: ATORVASTATIN CA 10 MG TABLET (FP) PO SCH (21:44)
[2018-04-02 23:43] VITALS: BMI 21.9
[2018-04-03] MEDS: ALBUTEROL SO4 2.5/IPRATROPIUM 0.5 INH SOL 3 ML VIAL.NEB. NEB SCH ×6 (00:02→20:32)
[2018-04-03] MEDS: NYSTATIN 500,000 UNITS/5 ML SUSPENSION PO SCH ×5 (01:46→23:45)
[2018-04-03] MEDS: CEFTAROLINE FOSAMIL ACETATE 600 MG in DEXTROSE 5%-WATER - 100 ML IVPB SCH ×3 (01:47→17:32)
[2018-04-03] MEDS: ALPRAZolam 0.25 MG TABLET PO PRN (01:59)
[2018-04-03] MEDS: INSULIN SLIDING SCALE (NOVOLOG) 1 VIAL SQ SCH ×4 (06:30→23:46)
[2018-04-03 07:02] LABS: HEMATOCRIT 27.8 % (35.4-49); HEMOGLOBIN 9.6 GM/dL (11.7-16.9); LYMPH % 1.3 % (8-40); MCH 31.6 pg (25.7-33.7); MCHC 34.5 g/dl (32.0-35.9); MEAN CELL VOLUME 91.6 fl (80-96); MEAN PLT VOLUME 10.7 fl (7.5-11.1); MONO % 1.9 % (3.8-10.2); NEUT % 96.8 % (42.8-82.8); PLATELET COUNT 64 K/MM3 (134-434); RBC 3.03 M/mm3 (4.00-5.60); RDW 15.2 % (11.9-15.9); WHITE BLOOD COUNT 7.9 K/mm3 (4.0-10.0)
[2018-04-03] MEDS: ARFORMOTEROL TARTRATE 15 MCG/2 ML VIAL NEB SCH ×2 (07:15→20:32)
[2018-04-03] MEDS: AMINO ACIDS/PROTEIN HYDROLYS 30 ML LIQUID.PKT PO SCH ×2 (08:38→17:32)
[2018-04-03] MEDS: TIOTROPIUM BROMIDE 2.5 MCG (SPIRIVA) RESPIMAT INHALER IH SCH (10:30)
[2018-04-03] MEDS: BUDESONIDE/FORMETEROL FUMARATE 160/4.5 mcg INHALER IH SCH ×2 (10:30→23:46)
[2018-04-03] MEDS: methylPREDNISolone NA SUCC 40 MG/1 ML VIAL IVPUSH SCH ×2 (10:31→23:45)
[2018-04-03] MEDS: TAMSULOSIN HCL 0.4 MG CAP PO SCH (10:37)
[2018-04-03] MEDS: FERROUS SO4 325 MG TABLET (FP) PO SCH (10:37)
[2018-04-03] MEDS: PANTOPRAZOLE 40 MG TABLET (FP) PO SCH ×2 (10:37→23:45)
[2018-04-03] MEDS: LACTOBACILLUS ACIDOPHILUS 1 TABLET PO SCH (10:37)
[2018-04-03] MEDS: POLYETHYLENE GLYCOL 3350 119 GM BTL PO SCH (10:38)
[2018-04-03] MEDS: ESCITALOPRAM OXALATE 10 MG TABLET (FP) PO SCH (10:38)
--- NOTE | 2018-04-03 10:54 | PN ---
Progress Note, Physician - Current Medication List Current Medications: Active Medications Albuterol/Ipratropium (Duoneb -) 1 amp NEB RQ4H [facility] Last Admin: 04/03/18 07:15 Dose: Not Given Alprazolam (Xanax -) 0.5 mg PO BID PRN PRN Reason: ANXIETY Last Admin: 04/03/18 01:59 Dose: 0.5 mg Amino Acids (Prosource No Carb Liquid Pkt) 30 ml PO BID@0800,1730 [facility] Last Admin: 04/03/18 08:38 Dose: 30 ml Arformoterol Tartrate (Brovana (Restricted To Pulmonology/Resp) -) 1 amp NEB RBID [facility] Last Admin: 04/03/18 07:15 Dose: Not Given Atorvastatin Calcium (Lipitor -) 10 mg PO HS [facility] Last Admin: 04/02/18 21:44 Dose: 10 mg Bisacodyl (Dulcolax -) 5 mg PO DAILY PRN PRN Reason: CONSTIPATION Budesonide/Formoterol Fumarate (Symbicort 160/4.5mcg -) 2 puff IH BID [facility] Last Admin: 04/03/18 10:30 Dose: 2 puff Diltiazem HCl (Cardizem Injection -) 10 mg IVPUSH Q4H PRN PRN Reason: TACHYCARDIA Last Admin: 04/02/18 16:06 Dose: 10 mg Diltiazem HCl (Cardizem Cd -) 120 mg PO DAILY [facility] Last Admin: 04/03/18 10:37 Dose: 120 mg Escitalopram Oxalate (Lexapro -) 20 mg PO DAILY [facility] Last Admin: 04/03/18 10:38 Dose: 20 mg Ferrous Sulfate (Feosol -) 325 mg PO DAILY [facility] Last Admin: 04/03/18 10:37 Dose: 325 mg Daptomycin 500 mg/ Sodium (Chloride) 50 mls @ 50 mls/hr IVPB DAILY [facility]; Protocol Last Admin: 04/02/18 10:19 Dose: 50 mls/hr Ceftaroline Fosamil 600 mg/ (Dextrose) 100 mls @ 100 mls/hr IVPB Q8H-IV [facility]; Protocol Last Admin: 04/03/18 10:31 Dose: 100 mls/hr Insulin Aspart (Novolog Vial Sliding Scale -) 1 vial SQ ACHS [facility]; Protocol Last Admin: 04/03/18 06:30 Dose: 2 units Lactobacillus Acidophilus (Bacid -) 1 tab PO DAILY [facility] Last Admin: 04/03/18 10:37 Dose: 1 tab Methylprednisolone Sodium Succinate (Solu-Medrol -) 30 mg IVPUSH BID [facility] Last Admin: 04/03/18 10:31 Dose: 30 mg Nystatin (Nystatin Oral Suspension -) 500,000 units PO Q6HPO [facility] Last Admin: 04/03/18 06:31 Dose: 500,000 units Pantoprazole Sodium (Protonix -) 40 mg PO BID [facility] Last Admin: 04/03/18 10:37 Dose: 40 mg Polyethylene Glycol (Miralax (For Daily Use) -) 17 gm PO DAILY [facility] Last Admin: 04/03/18 10:38 Dose: 17 gm Tamsulosin HCl (Flomax -) 0.4 mg PO DAILY@0830 [facility] Last Admin: 04/03/18 10:37 Dose: 0.4 mg Tiotropium [place] (Spiriva Respimat) 2 puff IH DAILY [facility] Last Admin: 04/03/18 10:30 Dose: 2 puff - Objective Vital Signs: Vital Signs Temperature 98.0 F 04/03/18 02:14 Pulse Rate 80 04/03/18 02:14 Respiratory Rate 20 04/03/18 02:14 Blood Pressure 116/54 L 04/03/18 02:14 O2 Sat by Pulse Oximetry (%) 96 04/02/18 21:00 Labs: CBC, BMP 04/03/18 05:30 04/02/18 05:30 INR, PTT INR 1.37 (0.83-1.09) H 03/26/18 05:30 Fibrinogen 668.0 mg/dL (238-498) H 03/24/18 15:30 Assessment/Plan - Problems (1) Sepsis Assessment/Plan: -Lactic acid normal -Afebrile -BC: Microbiology 03/31/18 05:48 Blood - Peripheral Venous Blood Culture - Preliminary NO GROWTH OBTAINED AFTER 48 HOURS, INCUBATION TO CONTINUE FOR 3 DAYS. 03/31/18 05:15 Blood - Peripheral Venous Blood Culture - Preliminary NO GROWTH OBTAINED AFTER 48 HOURS, INCUBATION TO CONTINUE FOR 3 DAYS. 03/29/18 05:30 Blood - Peripheral Venous Blood Culture - Preliminary NO GROWTH OBTAINED AFTER 96 HOURS, INCUBATION TO CONTINUE FOR 1 DAYS. 03/29/18 05:45 Blood - Peripheral Venous Blood Culture - Final S Aureus 03/27/18 06:10 Blood - Peripheral Venous Blood Culture - Final S Aureus 03/27/18 05:30 Blood - Peripheral Venous Blood Culture - Final S Aureus 03/25/18 12:20 Blood - Peripheral Venous Blood Culture - Final S Aureus 03/25/18 12:05 Blood - Peripheral Venous Blood Culture - Final S Aureus 03/24/18 11:53 Blood - Peripheral Venous Blood Culture - Final Presumptive Mrsa (Pbp2a Pos) 03/24/18 11:37 Blood - Peripheral Venous Blood Culture - Final S Aureus 03/24/18 13:13 Urine - Urine - Catheterized Urine Culture - Final NO GROWTH OBTAINED -On IV abx, would need it for 4-6 weeks -ID on board Code(s): A41.9 - SEPSIS, UNSPECIFIED ORGANISM (2) Acute and chronic respiratory failure Assessment/Plan: -Seen by pulmonary -BIPAP, to keep SpO2 > 90% -Solumedrol 30 mg BID -Bronchodilators -IV abx Code(s): J96.20 - ACUTE AND CHR RESP FAILURE, UNSP W HYPOXIA OR HYPERCAPNIA Qualifiers: Respiratory failure complication: hypoxia and hypercapnia Qualified Code(s) : J96.21 - Acute and chronic respiratory failure with hypoxia; J96.22 - Acute and chronic respiratory failure with hypercapnia (3) COPD exacerbation Assessment/Plan: -Pulmonary on board -BIPAP -Bronchodilators -Solumedrol 30 mg bid -Nasal O2 to keep SpO2 >90% Code(s): J44.1 - CHRONIC OBSTRUCTIVE PULMONARY DISEASE W (ACUTE) EXACERBATION (4) Paroxysmal atrial fibrillation with rapid ventricular response Assessment/Plan: -Tele monitoring -On Eliquis 5 mg po bid -cardiology on board -Off diltiazem drip -Diltiazem 120 po and IVP 10 mg IVP prn ordered Code(s): I48.0 - PAROXYSMAL ATRIAL FIBRILLATION (5) Elevated troponin Assessment/Plan: -likely 2/2 to demand ischemia -repeat troponin series Q8H x 3-trending down Code(s): R74.8 - ABNORMAL LEVELS OF OTHER SERUM ENZYMES (6) Hypoalbuminemia Assessment/Plan: -due to decreased PO intake -Prosource Code(s): E88.09 - OTH DISORDERS OF PLASMA-PROTEIN METABOLISM, NEC (7) Protein calorie malnutrition Assessment/Plan: -due to decreased PO intake -Prosource Code(s): E46 - UNSPECIFIED PROTEIN-CALORIE MALNUTRITION (8) Anemia Assessment/Plan: -stable -B12, Thyroid profile and folic acid unremarkable -Iron % low-unable to give venofer due to bacteremia -start ferrous sulfate 325 mg po daily -check stool OB- negative -monitor trend Code(s): D64.9 - ANEMIA, UNSPECIFIED Qualifiers: Anemia type: unspecified type Qualified Code(s): D64.9 - Anemia, unspecified (9) Anxiety Assessment/Plan: -Increase alprazolam to 0.5 mg po BID -On Lexapro 20 mg po daily -Psychiatry consult Code(s): F41.9 - ANXIETY DISORDER, UNSPECIFIED (10) Hyperthyroidism Assessment/Plan: -borderline -Endocrinology consult Code(s): E05.90 - THYROTOXICOSIS, UNSP WITHOUT THYROTOXIC CRISIS OR STORM Assessment/Plan see problem list Physical therapy
--- NOTE | 2018-04-03 11:21 | PN ---
Progress Note (short form) - Note Progress Note: no complaints Vital Signs Period Temp Pulse Resp BP Sys/Morgan Pulse Ox Last 24 Hr 97.8 F-98.0 F 70-80 20-20 114-124/44-55 96 cor-rrr lungs decreased bs at bases abd soft,nt ext trace edema CBC, BMP 04/03/18 05:30 04/02/18 05:30 Microbiology 03/31/18 05:48 Blood - Peripheral Venous Blood Culture - Preliminary NO GROWTH OBTAINED AFTER 72 HOURS, INCUBATION TO CONTINUE FOR 2 DAYS. 03/31/18 05:15 Blood - Peripheral Venous Blood Culture - Preliminary NO GROWTH OBTAINED AFTER 72 HOURS, INCUBATION TO CONTINUE FOR 2 DAYS. 03/29/18 05:30 Blood - Peripheral Venous Blood Culture - Final NO GROWTH AFTER 5 DAYS INCUBATION 03/29/18 05:45 Blood - Peripheral Venous Blood Culture - Final S Aureus 03/27/18 06:10 Blood - Peripheral Venous Blood Culture - Final S Aureus 03/27/18 05:30 Blood - Peripheral Venous Blood Culture - Final Mr S Aureus 03/25/18 12:20 Blood - Peripheral Venous Blood Culture - Final Mr S Aureus 03/25/18 12:05 Blood - Peripheral Venous Blood Culture - Final Mr S Aureus 03/24/18 11:53 Blood - Peripheral Venous Blood Culture - Final Presumptive Mrsa (Pbp2a Pos) 03/24/18 11:37 Blood - Peripheral Venous Blood Culture - Final Mr S Aureus 03/24/18 13:13 Urine - Urine - Catheterized Urine Culture - Final NO GROWTH OBTAINED a/p MRSA bacteremia/clinical endocarditis- splenic infarcts, eye lesions continue ceftaroline/daptomycin d/w cardiology to f/u echo ?is he a candidate for LUBNA given his endstage lung disease? repeat blood cultures negative at 48h have repeated again will require 6 weeks iv antibiotics stable thrombocytopenia-still persistent endstage copd rapid afib-on cardizem drip apical lung mass-?malignancy Problem List - Problems (1) Sepsis Code(s): A41.9 - SEPSIS, UNSPECIFIED ORGANISM (2) Fever Code(s): R50.9 - FEVER, UNSPECIFIED Qualifiers: Fever type: unspecified Qualified Code(s): R50.9 - Fever, unspecified (3) Acute and chronic respiratory failure Code(s): J96.20 - ACUTE AND CHR RESP FAILURE, UNSP W HYPOXIA OR HYPERCAPNIA Qualifiers: Respiratory failure complication: hypoxia and hypercapnia Qualified Code(s) : J96.21 - Acute and chronic respiratory failure with hypoxia; J96.22 - Acute and chronic respiratory failure with hypercapnia (4) Paroxysmal A-fib Code(s): I48.0 - PAROXYSMAL ATRIAL FIBRILLATION
--- NOTE | 2018-04-03 12:05 | PN ---
Progress Note (short form) - Note Progress Note: PULMONARY WELL KNOWN BY OUR SERVICE/[facility] PULMONARY VSS/AFEBRILE ANICTERIC/PALE DIMINISHED DIFFUSE BREATH SOUNDS NO WHEEZING S1S2 BS+ NO EDEMA/MULTIPLE AREAS OF BRUISING MICRO/NOTES/IMAGES/MEDS NOTED Acute on Chronic Hypoxic Respiratory Failure Enlarging pleural based mass etiology ? 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
[2018-04-03 12:09] LABS: ANISOCYTOSIS 1+; MACROCYTOSIS 1+; PLATELET ESTIMATE DECREASED
[2018-04-03] MEDS: DAPTOMYCIN 500 MG in SODIUM CHLORIDE 50 ML IVPB SCH (12:12)
[2018-04-03] MEDS ORDERED: PT OWN MED DRAWER 7, Y5N ONE (16:46)
[2018-04-03] MEDS: ATORVASTATIN CA 10 MG TABLET (FP) PO SCH (23:45)
[2018-04-04] MEDS: ALBUTEROL SO4 2.5/IPRATROPIUM 0.5 INH SOL 3 ML VIAL.NEB. NEB SCH ×6 (00:20→21:01)
[2018-04-04] MEDS ORDERED: PT OWN MED DRAWER 7, Y5N ONE ×3 (03:37→18:41)
[2018-04-04] MEDS: CEFTAROLINE FOSAMIL ACETATE 600 MG in DEXTROSE 5%-WATER - 100 ML IVPB SCH ×3 (03:45→18:43)
[2018-04-04] MEDS: NYSTATIN 500,000 UNITS/5 ML SUSPENSION PO SCH ×3 (06:16→18:43)
[2018-04-04] MEDS: INSULIN SLIDING SCALE (NOVOLOG) 1 VIAL SQ SCH ×4 (06:17→21:08)
[2018-04-04] MEDS: ARFORMOTEROL TARTRATE 15 MCG/2 ML VIAL NEB SCH ×2 (07:30→21:00)
[2018-04-04] MEDS ORDERED: ALBUTEROL SO4 8 GM HFA INHALER IH ONE (09:52)
--- NOTE | 2018-04-04 12:46 | PN ---
Progress Note, Physician - Current Medication List Current Medications: Active Medications Albuterol/Ipratropium (Duoneb -) 1 amp NEB RQ4H [facility] Last Admin: 04/04/18 11:48 Dose: 1 amp Amino Acids (Prosource No Carb Liquid Pkt) 30 ml PO BID@0800,1730 [facility] Last Admin: 04/03/18 17:32 Dose: 30 ml Arformoterol Tartrate (Brovana (Restricted To Pulmonology/Resp) -) 1 amp NEB RBID [facility] Last Admin: 04/04/18 07:30 Dose: 1 amp Atorvastatin Calcium (Lipitor -) 10 mg PO HS [facility] Last Admin: 04/03/18 23:45 Dose: 10 mg Bisacodyl (Dulcolax -) 5 mg PO DAILY PRN PRN Reason: CONSTIPATION Budesonide/Formoterol Fumarate (Symbicort 160/4.5mcg -) 2 puff IH BID [facility] Last Admin: 04/03/18 23:46 Dose: 2 puff Diltiazem HCl (Cardizem Injection -) 10 mg IVPUSH Q4H PRN PRN Reason: TACHYCARDIA Last Admin: 04/02/18 16:06 Dose: 10 mg Diltiazem HCl (Cardizem Cd -) 120 mg PO DAILY [facility] Last Admin: 04/03/18 10:37 Dose: 120 mg Escitalopram Oxalate (Lexapro -) 20 mg PO DAILY [facility] Last Admin: 04/03/18 10:38 Dose: 20 mg Ferrous Sulfate (Feosol -) 325 mg PO DAILY [facility] Last Admin: 04/03/18 10:37 Dose: 325 mg Daptomycin 500 mg/ Sodium (Chloride) 50 mls @ 50 mls/hr IVPB DAILY [facility]; Protocol Last Admin: 04/03/18 12:12 Dose: 50 mls/hr Ceftaroline Fosamil 600 mg/ (Dextrose) 100 mls @ 100 mls/hr IVPB Q8H-IV [facility]; Protocol Last Admin: 04/04/18 03:45 Dose: 100 mls/hr Insulin Aspart (Novolog Vial Sliding Scale -) 1 vial SQ ACHS [facility]; Protocol Last Admin: 04/04/18 06:17 Dose: 2 units Lactobacillus Acidophilus (Bacid -) 1 tab PO DAILY [facility] Last Admin: 04/03/18 10:37 Dose: 1 tab Methylprednisolone Sodium Succinate (Solu-Medrol -) 30 mg IVPUSH BID [facility] Last Admin: 04/03/18 23:45 Dose: 30 mg Nystatin (Nystatin Oral Suspension -) 500,000 units PO Q6HPO [facility] Last Admin: 04/04/18 06:16 Dose: 500,000 units Pantoprazole Sodium (Protonix -) 40 mg PO BID [facility] Last Admin: 04/03/18 23:45 Dose: 40 mg Polyethylene Glycol (Miralax (For Daily Use) -) 17 gm PO DAILY [facility] Last Admin: 04/03/18 10:38 Dose: 17 gm Tamsulosin HCl (Flomax -) 0.4 mg PO DAILY@0830 [facility] Last Admin: 04/03/18 10:37 Dose: 0.4 mg Tiotropium [place] (Spiriva Respimat) 2 puff IH DAILY [facility] Last Admin: 04/03/18 10:30 Dose: 2 puff - Objective Vital Signs: Vital Signs Temperature 97.8 F 04/04/18 05:00 Pulse Rate 68 04/04/18 09:00 Respiratory Rate 18 04/04/18 09:00 Blood Pressure 119/55 L 04/04/18 09:00 O2 Sat by Pulse Oximetry (%) 96 04/04/18 09:00 Cardiovascular: Yes: S1, S2 Respiratory: Yes: Regular, CTA Bilaterally Gastrointestinal: Yes: Normal Bowel Sounds, Soft Labs: CBC, BMP 04/03/18 05:30 04/02/18 05:30 INR, PTT INR 1.37 (0.83-1.09) H 03/26/18 05:30 Fibrinogen 668.0 mg/dL (238-498) H 03/24/18 15:30 Assessment/Plan - Problems (1) Sepsis Assessment/Plan: -Lactic acid normal -Afebrile -BC: Microbiology Microbiology 03/31/18 05:48 Blood - Peripheral Venous Blood Culture - Preliminary NO GROWTH OBTAINED AFTER 96 HOURS, INCUBATION TO CONTINUE FOR 1 DAYS. 03/31/18 05:15 Blood - Peripheral Venous Blood Culture - Preliminary NO GROWTH OBTAINED AFTER 96 HOURS, INCUBATION TO CONTINUE FOR 1 DAYS. 04/03/18 06:00 Blood - Peripheral Venous Blood Culture - Preliminary NO GROWTH OBTAINED AFTER 24 HOURS, INCUBATION TO CONTINUE FOR 4 DAYS. 04/03/18 05:30 Blood - Peripheral Venous Blood Culture - Preliminary NO GROWTH OBTAINED AFTER 24 HOURS, INCUBATION TO CONTINUE FOR 4 DAYS. 03/29/18 05:30 Blood - Peripheral Venous Blood Culture - Final NO GROWTH AFTER 5 DAYS INCUBATION 03/29/18 05:45 Blood - Peripheral Venous Blood Culture - Final S Aureus 03/27/18 06:10 Blood - Peripheral Venous Blood Culture - Final S Aureus 03/27/18 05:30 Blood - Peripheral Venous Blood Culture - Final S Aureus 03/25/18 12:20 Blood - Peripheral Venous Blood Culture - Final S Aureus 03/25/18 12:05 Blood - Peripheral Venous Blood Culture - Final Mr S Aureus 03/24/18 11:53 Blood - Peripheral Venous Blood Culture - Final Presumptive Mrsa (Pbp2a Pos) 03/24/18 11:37 Blood - Peripheral Venous Blood Culture - Final S Aureus 03/24/18 13:13 Urine - Urine - Catheterized Urine Culture - Final NO GROWTH OBTAINED -On IV abx, would need it for 4-6 weeks -ID on board Code(s): A41.9 - SEPSIS, UNSPECIFIED ORGANISM (2) Acute and chronic respiratory failure Assessment/Plan: -Seen by pulmonary -BIPAP, to keep SpO2 > 90% -Solumedrol 30 mg BID -Bronchodilators -IV abx Code(s): J96.20 - ACUTE AND CHR RESP FAILURE, UNSP W HYPOXIA OR HYPERCAPNIA Qualifiers: Respiratory failure complication: hypoxia and hypercapnia Qualified Code(s) : J96.21 - Acute and chronic respiratory failure with hypoxia; J96.22 - Acute and chronic respiratory failure with hypercapnia (3) COPD exacerbation Assessment/Plan: -Pulmonary on board -BIPAP -Bronchodilators -Solumedrol 30 mg bid -Nasal O2 to keep SpO2 >90% Code(s): J44.1 - CHRONIC OBSTRUCTIVE PULMONARY DISEASE W (ACUTE) EXACERBATION (4) Paroxysmal atrial fibrillation with rapid ventricular response Assessment/Plan: -Tele monitoring -On Eliquis 5 mg po bid -cardiology on board -Off diltiazem drip -Diltiazem 120 po and IVP 10 mg IVP prn ordered Code(s): I48.0 - PAROXYSMAL ATRIAL FIBRILLATION (5) Elevated troponin Assessment/Plan: -likely 2/2 to demand ischemia -repeat troponin series Q8H x 3-trending down Code(s): R74.8 - ABNORMAL LEVELS OF OTHER SERUM ENZYMES (6) Hypoalbuminemia Assessment/Plan: -due to decreased PO intake -Prosource Code(s): E88.09 - OTH DISORDERS OF PLASMA-PROTEIN METABOLISM, NEC (7) Protein calorie malnutrition Assessment/Plan: -due to decreased PO intake -Prosource Code(s): E46 - UNSPECIFIED PROTEIN-CALORIE MALNUTRITION (8) Anemia Assessment/Plan: -stable -B12, Thyroid profile and folic acid unremarkable -Iron % low-unable to give venofer due to bacteremia -start ferrous sulfate 325 mg po daily -check stool OB- negative -monitor trend Code(s): D64.9 - ANEMIA, UNSPECIFIED Qualifiers: Anemia type: unspecified type Qualified Code(s): D64.9 - Anemia, unspecified (9) Anxiety Assessment/Plan: -Increase alprazolam to 0.5 mg po BID -On Lexapro 20 mg po daily -Psychiatry consult Code(s): F41.9 - ANXIETY DISORDER, UNSPECIFIED (10) Hyperthyroidism Assessment/Plan: -borderline -Endocrinology consult Code(s): E05.90 - THYROTOXICOSIS, UNSP WITHOUT THYROTOXIC CRISIS OR STORM Assessment/Plan see problem list Physical therapy
[2018-04-04] MEDS: methylPREDNISolone NA SUCC 40 MG/1 ML VIAL IVPUSH SCH ×2 (12:47→21:08)
[2018-04-04] MEDS: PANTOPRAZOLE 40 MG TABLET (FP) PO SCH ×2 (12:48→21:08)
[2018-04-04] MEDS: TAMSULOSIN HCL 0.4 MG CAP PO SCH (12:48)
[2018-04-04] MEDS: ESCITALOPRAM OXALATE 10 MG TABLET (FP) PO SCH (12:48)
[2018-04-04] MEDS: AMINO ACIDS/PROTEIN HYDROLYS 30 ML LIQUID.PKT PO SCH ×2 (12:48→18:43)
[2018-04-04] MEDS: LACTOBACILLUS ACIDOPHILUS 1 TABLET PO SCH (12:48)
[2018-04-04] MEDS: FERROUS SO4 325 MG TABLET (FP) PO SCH (12:48)
--- NOTE | 2018-04-04 12:56 | PN ---
Progress Note, Physician History of Present Illness: Feels weak, afebrile, paroxysmal afib remains in sinus rhythm on oral cardizem. - Current Medication List Current Medications: Active Medications Albuterol/Ipratropium (Duoneb -) 1 amp NEB RQ4H [facility] Last Admin: 04/04/18 11:48 Dose: 1 amp Amino Acids (Prosource No Carb Liquid Pkt) 30 ml PO BID@0800,1730 [facility] Last Admin: 04/04/18 12:48 Dose: 30 ml Arformoterol Tartrate (Brovana (Restricted To Pulmonology/Resp) -) 1 amp NEB RBID [facility] Last Admin: 04/04/18 07:30 Dose: 1 amp Atorvastatin Calcium (Lipitor -) 10 mg PO HS [facility] Last Admin: 04/03/18 23:45 Dose: 10 mg Bisacodyl (Dulcolax -) 5 mg PO DAILY PRN PRN Reason: CONSTIPATION Budesonide/Formoterol Fumarate (Symbicort 160/4.5mcg -) 2 puff IH BID [facility] Last Admin: 04/03/18 23:46 Dose: 2 puff Diltiazem HCl (Cardizem Injection -) 10 mg IVPUSH Q4H PRN PRN Reason: TACHYCARDIA Last Admin: 04/02/18 16:06 Dose: 10 mg Diltiazem HCl (Cardizem Cd -) 120 mg PO DAILY [facility] Last Admin: 04/04/18 12:48 Dose: 120 mg Escitalopram Oxalate (Lexapro -) 20 mg PO DAILY [facility] Last Admin: 04/04/18 12:48 Dose: 20 mg Ferrous Sulfate (Feosol -) 325 mg PO DAILY [facility] Last Admin: 04/04/18 12:48 Dose: 325 mg Daptomycin 500 mg/ Sodium (Chloride) 50 mls @ 50 mls/hr IVPB DAILY [facility]; Protocol Last Admin: 04/03/18 12:12 Dose: 50 mls/hr Ceftaroline Fosamil 600 mg/ (Dextrose) 100 mls @ 100 mls/hr IVPB Q8H-IV [facility]; Protocol Last Admin: 04/04/18 12:47 Dose: 100 mls/hr Insulin Aspart (Novolog Vial Sliding Scale -) 1 vial SQ ACHS [facility]; Protocol Last Admin: 04/04/18 06:17 Dose: 2 units Lactobacillus Acidophilus (Bacid -) 1 tab PO DAILY [facility] Last Admin: 04/04/18 12:48 Dose: 1 tab Methylprednisolone Sodium Succinate (Solu-Medrol -) 30 mg IVPUSH BID [facility] Last Admin: 04/04/18 12:47 Dose: 30 mg Nystatin (Nystatin Oral Suspension -) 500,000 units PO Q6HPO [facility] Last Admin: 04/04/18 06:16 Dose: 500,000 units Pantoprazole Sodium (Protonix -) 40 mg PO BID [facility] Last Admin: 04/04/18 12:48 Dose: 40 mg Polyethylene Glycol (Miralax (For Daily Use) -) 17 gm PO DAILY [facility] Last Admin: 04/03/18 10:38 Dose: 17 gm Tamsulosin HCl (Flomax -) 0.4 mg PO DAILY@0830 [facility] Last Admin: 04/04/18 12:48 Dose: 0.4 mg Tiotropium [place] (Spiriva Respimat) 2 puff IH DAILY [facility] Last Admin: 04/03/18 10:30 Dose: 2 puff - Objective Vital Signs: Vital Signs Temperature 97.8 F 04/04/18 05:00 Pulse Rate 68 04/04/18 09:00 Respiratory Rate 18 04/04/18 09:00 Blood Pressure 119/55 L 04/04/18 09:00 O2 Sat by Pulse Oximetry (%) 96 04/04/18 09:00 Constitutional: Yes: No Distress, Calm, Thin Neck: Yes: Supple Cardiovascular: Yes: Regular Rate and Rhythm Respiratory: Yes: Regular, Diminished, On Nasal O2 Gastrointestinal: Yes: Normal Bowel Sounds, Soft Edema: No Labs: CBC, BMP 04/03/18 05:30 04/02/18 05:30 INR, PTT INR 1.37 (0.83-1.09) H 03/26/18 05:30 Fibrinogen 668.0 mg/dL (238-498) H 03/24/18 15:30 - ....Imaging EKG: Report Reviewed (Tele: NSR) Problem List - Problems (1) MRSA (methicillin resistant Staphylococcus aureus) infection Code(s): A49.02 - METHICILLIN RESIS STAPH INFECTION, UNSP SITE (2) Acute and chronic respiratory failure with hypercapnia Code(s): J96.22 - ACUTE AND CHRONIC RESPIRATORY FAILURE WITH HYPERCAPNIA (3) Arteriosclerotic heart disease (ASHD) Code(s): I25.10 - ATHSCL HEART DISEASE OF [place] CORONARY ARTERY W/O ANG PCTRS (4) COPD exacerbation Code(s): J44.1 - CHRONIC OBSTRUCTIVE PULMONARY DISEASE W (ACUTE) EXACERBATION (5) Diastolic dysfunction Code(s): I51.9 - HEART DISEASE, UNSPECIFIED (6) Hyperlipidemia Code(s): E78.5 - HYPERLIPIDEMIA, UNSPECIFIED Qualifiers: Hyperlipidemia type: pure hypercholesterolemia Qualified Code(s): E78.00 - Pure hypercholesterolemia, unspecified; E78.0 - Pure hypercholesterolemia (7) Paroxysmal atrial fibrillation with rapid ventricular response Code(s): I48.0 - PAROXYSMAL ATRIAL FIBRILLATION Assessment/Plan 1. MRSA bacteremia of unclear source with splenic infarct, suspect endocarditis 2. Paroxysmal atrial fibrillation with RVR [id number] off NOAC in anticipation of procedure 3. Acute on Chronic Hypoxic and Hypercapneic Respiratory Failure improving 4. Acute exacerbation of advanced chronic cavitary obstructive pulmonary disease on home oxygen therapy with Pulmonary HTN 5. H/o Atypical Mycobacterium 6. CAD non-obstructive coronary artery disease with demnd ischemia 7. Acute on chronic diastolic failure with pleural effusions R>L 8. HTN 9. Hypercholesterolemia 10. RUL pleural-based mass, ? neoplastic 11. Sick euthyroid syndrome 12. Thrombycytopenia referable to sepsis 13. Anemia 2/2 occult GI bleed PLAN: 1. Daptomycin and Ceftaroline with f/u C&S NGTD, LUBNA if persistent bacteremia or fevers and respiratory status stabilizes, would likely require 6 week of abx post clearance 2. Change Cardizem gtt to Cardizem CD 120 qd given HR control, IV diuresis as needed with monitor diuretic response, renal function and electrolytes 3. Slow IV steroid taper with GI protection, bronchodilators, O2 to keep SpO2 > 90%, Trilogy / BiPAP as needed to assist in work of breathing as per the pulmonary 4. Given elevated risk score, resume Eliquis 5 bid after insertion of PICC line with monitor hemoglobin and Plt, transfuse pRBC to maintain Hgb>8.0 5. Continue Lipitor 10 qhs 6. Addition of ACEI or ARB hemodynamics permitting 7. DVT prophylaxis, OOB to chair
--- NOTE | 2018-04-04 13:10 | PN ---
Progress Note (short form) - Note Progress Note: PULMONARY WELL KNOWN BY OUR SERVICE/[facility] PULMONARY VSS/AFEBRILE ANICTERIC/PALE DIMINISHED DIFFUSE BREATH SOUNDS NO WHEEZING S1S2 BS+ NO EDEMA/MULTIPLE AREAS OF BRUISING MICRO/NOTES/IMAGES/MEDS NOTED Acute on Chronic Hypoxic Respiratory Failure Enlarging pleural based mass etiology ? 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
[2018-04-04] MEDS ORDERED: ALPRAZolam 0.25 MG TABLET ONE (13:31)
[2018-04-04] MEDS: DAPTOMYCIN 500 MG in SODIUM CHLORIDE 50 ML IVPB SCH (13:32)
[2018-04-04] MEDS: ALPRAZolam 0.25 MG TABLET PO PRN (13:32)
[2018-04-04] MEDS: POLYETHYLENE GLYCOL 3350 119 GM BTL PO SCH (13:32)
[2018-04-04] MEDS: TIOTROPIUM BROMIDE 2.5 MCG (SPIRIVA) RESPIMAT INHALER IH SCH (13:33)
[2018-04-04] MEDS: BUDESONIDE/FORMETEROL FUMARATE 160/4.5 mcg INHALER IH SCH ×2 (13:33→21:09)
[2018-04-04] MEDS: BISACODYL 5 MG TABLET.DR (FP) PO PRN (21:04)
[2018-04-04] MEDS: ATORVASTATIN CA 10 MG TABLET (FP) PO SCH (21:07)
[2018-04-04] MEDS ORDERED: APIXABAN 5 MG TABLET PO SCH (22:00)
[2018-04-05] MEDS: NYSTATIN 500,000 UNITS/5 ML SUSPENSION PO SCH ×4 (00:01→17:56)
[2018-04-05] MEDS: ALBUTEROL SO4 2.5/IPRATROPIUM 0.5 INH SOL 3 ML VIAL.NEB. NEB SCH ×5 (00:11→16:39)
[2018-04-05] MEDS: CEFTAROLINE FOSAMIL ACETATE 600 MG in DEXTROSE 5%-WATER - 100 ML IVPB SCH ×3 (01:04→18:00)
[2018-04-05] MEDS: ALPRAZolam 0.25 MG TABLET PO PRN ×2 (01:05→17:56)
[2018-04-05] MEDS: INSULIN SLIDING SCALE (NOVOLOG) 1 VIAL SQ SCH ×4 (06:35→21:34)
[2018-04-05] MEDS: ARFORMOTEROL TARTRATE 15 MCG/2 ML VIAL NEB SCH ×2 (08:26→20:10)
[2018-04-05] MEDS: BUDESONIDE/FORMETEROL FUMARATE 160/4.5 mcg INHALER IH SCH ×2 (10:00→21:31)
[2018-04-05] MEDS: TIOTROPIUM BROMIDE 2.5 MCG (SPIRIVA) RESPIMAT INHALER IH SCH (10:00)
--- NOTE | 2018-04-05 10:20 | PN ---
Progress Note, Physician History of Present Illness: Feels weak, afebrile, paroxysmal afib remains in sinus rhythm on oral cardizem. - Current Medication List Current Medications: Active Medications Albuterol/Ipratropium (Duoneb -) 1 amp NEB RQ4H [facility] Last Admin: 04/05/18 07:35 Dose: Not Given Alprazolam (Xanax -) 0.5 mg PO Q12H PRN PRN Reason: ANXIETY Last Admin: 04/05/18 01:05 Dose: 0.5 mg Amino Acids (Prosource No Carb Liquid Pkt) 30 ml PO BID@0800,1730 [facility] Last Admin: 04/04/18 18:43 Dose: 30 ml Arformoterol Tartrate (Brovana (Restricted To Pulmonology/Resp) -) 1 amp NEB RBID [facility] Last Admin: 04/04/18 21:00 Dose: 1 amp Atorvastatin Calcium (Lipitor -) 10 mg PO HS [facility] Last Admin: 04/04/18 21:07 Dose: 10 mg Bisacodyl (Dulcolax -) 5 mg PO DAILY PRN PRN Reason: CONSTIPATION Last Admin: 04/04/18 21:04 Dose: 5 mg Budesonide/Formoterol Fumarate (Symbicort 160/4.5mcg -) 2 puff IH BID [facility] Last Admin: 04/04/18 21:09 Dose: 2 puff Diltiazem HCl (Cardizem Injection -) 10 mg IVPUSH Q4H PRN PRN Reason: TACHYCARDIA Last Admin: 04/02/18 16:06 Dose: 10 mg Diltiazem HCl (Cardizem Cd -) 120 mg PO DAILY [facility] Last Admin: 04/04/18 12:48 Dose: 120 mg Escitalopram Oxalate (Lexapro -) 20 mg PO DAILY [facility] Last Admin: 04/04/18 12:48 Dose: 20 mg Ferrous Sulfate (Feosol -) 325 mg PO DAILY [facility] Last Admin: 04/04/18 12:48 Dose: 325 mg Daptomycin 500 mg/ Sodium (Chloride) 50 mls @ 50 mls/hr IVPB DAILY [facility]; Protocol Last Admin: 04/04/18 13:32 Dose: 50 mls/hr Ceftaroline Fosamil 600 mg/ (Dextrose) 100 mls @ 100 mls/hr IVPB Q8H-IV [facility]; Protocol Last Admin: 04/05/18 01:04 Dose: 100 mls/hr Insulin Aspart (Novolog Vial Sliding Scale -) 1 vial SQ ACHS [facility]; Protocol Last Admin: 04/05/18 06:35 Dose: 2 units Lactobacillus Acidophilus (Bacid -) 1 tab PO DAILY [facility] Last Admin: 04/04/18 12:48 Dose: 1 tab Methylprednisolone Sodium Succinate (Solu-Medrol -) 30 mg IVPUSH BID [facility] Last Admin: 04/04/18 21:08 Dose: 30 mg Nystatin (Nystatin Oral Suspension -) 500,000 units PO Q6HPO [facility] Last Admin: 04/05/18 06:35 Dose: 500,000 units Pantoprazole Sodium (Protonix -) 40 mg PO BID [facility] Last Admin: 04/04/18 21:08 Dose: 40 mg Polyethylene Glycol (Miralax (For Daily Use) -) 17 gm PO DAILY [facility] Last Admin: 04/04/18 13:32 Dose: 17 gm Tamsulosin HCl (Flomax -) 0.4 mg PO DAILY@0830 [facility] Last Admin: 04/04/18 12:48 Dose: 0.4 mg Tiotropium [place] (Spiriva Respimat) 2 puff IH DAILY [facility] Last Admin: 04/04/18 13:33 Dose: 2 puff - Objective Vital Signs: Vital Signs Temperature 98.4 F 04/05/18 06:00 Pulse Rate 62 04/05/18 09:46 Respiratory Rate 18 04/05/18 09:46 Blood Pressure 128/79 04/05/18 09:46 O2 Sat by Pulse Oximetry (%) 95 04/05/18 09:00 Constitutional: Yes: No Distress, Calm, Thin Neck: Yes: Supple Cardiovascular: Yes: Regular Rate and Rhythm Respiratory: Yes: Regular, Diminished, On Nasal O2 Gastrointestinal: Yes: Normal Bowel Sounds, Soft Edema: No Labs: CBC, BMP 04/03/18 05:30 04/02/18 05:30 INR, PTT INR 1.37 (0.83-1.09) H 03/26/18 05:30 Fibrinogen 668.0 mg/dL (238-498) H 03/24/18 15:30 - ....Imaging EKG: Report Reviewed (Tele: NSR no PAF) Problem List - Problems (1) MRSA (methicillin resistant Staphylococcus aureus) infection Code(s): A49.02 - METHICILLIN RESIS STAPH INFECTION, UNSP SITE (2) Acute and chronic respiratory failure with hypercapnia Code(s): J96.22 - ACUTE AND CHRONIC RESPIRATORY FAILURE WITH HYPERCAPNIA (3) Arteriosclerotic heart disease (ASHD) Code(s): I25.10 - ATHSCL HEART DISEASE OF [place] CORONARY ARTERY W/O ANG PCTRS (4) COPD exacerbation Code(s): J44.1 - CHRONIC OBSTRUCTIVE PULMONARY DISEASE W (ACUTE) EXACERBATION (5) Diastolic dysfunction Code(s): I51.9 - HEART DISEASE, UNSPECIFIED (6) Hyperlipidemia Code(s): E78.5 - HYPERLIPIDEMIA, UNSPECIFIED Qualifiers: Hyperlipidemia type: pure hypercholesterolemia Qualified Code(s): E78.00 - Pure hypercholesterolemia, unspecified; E78.0 - Pure hypercholesterolemia (7) Paroxysmal atrial fibrillation with rapid ventricular response Code(s): I48.0 - PAROXYSMAL ATRIAL FIBRILLATION Assessment/Plan 1. MRSA bacteremia of unclear source with splenic infarct, suspect endocarditis 2. Paroxysmal atrial fibrillation with RVR [id number] off NOAC in anticipation of procedure 3. Acute on Chronic Hypoxic and Hypercapneic Respiratory Failure improving 4. Acute exacerbation of advanced chronic cavitary obstructive pulmonary disease on home oxygen therapy with Pulmonary HTN 5. H/o Atypical Mycobacterium 6. CAD non-obstructive coronary artery disease with demnd ischemia 7. Acute on chronic diastolic failure with pleural effusions R>L 8. HTN 9. Hypercholesterolemia 10. RUL pleural-based mass, ? neoplastic 11. Sick euthyroid syndrome 12. Thrombycytopenia referable to sepsis 13. Anemia 2/2 occult GI bleed PLAN: 1. Daptomycin and Ceftaroline with f/u C&S NGTD since 03/31/2018, requires 6 week of abx post clearance 2. Continue Cardizem CD 120 qd, IV diuresis as needed with monitor diuretic response, renal function and electrolytes 3. Slow IV steroid taper with GI protection, bronchodilators, O2 to keep SpO2 > 90%, Trilogy / BiPAP as needed to assist in work of breathing as per the pulmonary 4. Given elevated risk score, resume Eliquis 5 bid after insertion of PICC line with monitor hemoglobin and Plt, transfuse pRBC to maintain Hgb>8.0 5. Continue Lipitor 10 qhs 6. Addition of ACEI or ARB hemodynamics permitting 7. DVT prophylaxis, OOB to chair
--- NOTE | 2018-04-05 10:38 | PN ---
Progress Note, Physician History of Present Illness: pulmonary alert,less dyspneic,-cp - Current Medication List Current Medications: Active Medications Albuterol/Ipratropium (Duoneb -) 1 amp NEB RQ4H TA Last Admin: 04/05/18 07:35 Dose: Not Given Alprazolam (Xanax -) 0.5 mg PO Q12H PRN PRN Reason: ANXIETY Last Admin: 04/05/18 01:05 Dose: 0.5 mg Amino Acids (Prosource No Carb Liquid Pkt) 30 ml PO BID@0800,1730 [facility] Last Admin: 04/04/18 18:43 Dose: 30 ml Arformoterol Tartrate (Brovana (Restricted To Pulmonology/Resp) -) 1 amp NEB RBID TA Last Admin: 04/04/18 21:00 Dose: 1 amp Atorvastatin Calcium (Lipitor -) 10 mg PO HS [facility] Last Admin: 04/04/18 21:07 Dose: 10 mg Bisacodyl (Dulcolax -) 5 mg PO DAILY PRN PRN Reason: CONSTIPATION Last Admin: 04/04/18 21:04 Dose: 5 mg Budesonide/Formoterol Fumarate (Symbicort 160/4.5mcg -) 2 puff IH BID [facility] Last Admin: 04/04/18 21:09 Dose: 2 puff Diltiazem HCl (Cardizem Injection -) 10 mg IVPUSH Q4H PRN PRN Reason: TACHYCARDIA Last Admin: 04/02/18 16:06 Dose: 10 mg Diltiazem HCl (Cardizem Cd -) 120 mg PO DAILY [facility] Last Admin: 04/04/18 12:48 Dose: 120 mg Escitalopram Oxalate (Lexapro -) 20 mg PO DAILY [facility] Last Admin: 04/04/18 12:48 Dose: 20 mg Ferrous Sulfate (Feosol -) 325 mg PO DAILY TA Last Admin: 04/04/18 12:48 Dose: 325 mg Daptomycin 500 mg/ Sodium (Chloride) 50 mls @ 50 mls/hr IVPB DAILY [facility]; Protocol Last Admin: 04/04/18 13:32 Dose: 50 mls/hr Ceftaroline Fosamil 600 mg/ (Dextrose) 100 mls @ 100 mls/hr IVPB Q8H-IV [facility]; Protocol Last Admin: 04/05/18 01:04 Dose: 100 mls/hr Insulin Aspart (Novolog Vial Sliding Scale -) 1 vial SQ ACHS [facility]; Protocol Last Admin: 04/05/18 06:35 Dose: 2 units Lactobacillus Acidophilus (Bacid -) 1 tab PO DAILY [facility] Last Admin: 04/04/18 12:48 Dose: 1 tab Methylprednisolone Sodium Succinate (Solu-Medrol -) 30 mg IVPUSH BID [facility] Last Admin: 04/04/18 21:08 Dose: 30 mg Nystatin (Nystatin Oral Suspension -) 500,000 units PO Q6HPO [facility] Last Admin: 04/05/18 06:35 Dose: 500,000 units Pantoprazole Sodium (Protonix -) 40 mg PO BID [facility] Last Admin: 04/04/18 21:08 Dose: 40 mg Polyethylene Glycol (Miralax (For Daily Use) -) 17 gm PO DAILY [facility] Last Admin: 04/04/18 13:32 Dose: 17 gm Tamsulosin HCl (Flomax -) 0.4 mg PO DAILY@0830 [facility] Last Admin: 04/04/18 12:48 Dose: 0.4 mg Tiotropium [place] (Spiriva Respimat) 2 puff IH DAILY [facility] Last Admin: 04/04/18 13:33 Dose: 2 puff - Objective Vital Signs: Vital Signs Temperature 98.4 F 04/05/18 06:00 Pulse Rate 62 04/05/18 09:46 Respiratory Rate 18 04/05/18 09:46 Blood Pressure 128/79 04/05/18 09:46 O2 Sat by Pulse Oximetry (%) 95 04/05/18 09:00 Constitutional: Yes: Calm, Thin Eyes: Yes: WNL HENT: Yes: WNL Neck: Yes: WNL Cardiovascular: Yes: Pulse Irregular, S1, S2 Respiratory: Yes: Diminished Gastrointestinal: Yes: Normal Bowel Sounds, Soft Extremities: Yes: WNL Edema: No Labs: CBC, BMP Problem List - Problems (1) MRSA (methicillin resistant Staphylococcus aureus) infection Code(s): A49.02 - METHICILLIN RESIS STAPH INFECTION, UNSP SITE (2) Diarrhea Code(s): R19.7 - DIARRHEA, UNSPECIFIED (3) Sepsis Code(s): A41.9 - SEPSIS, UNSPECIFIED ORGANISM (4) Acute and chronic respiratory failure Code(s): J96.20 - ACUTE AND CHR RESP FAILURE, UNSP W HYPOXIA OR HYPERCAPNIA Qualifiers: Respiratory failure complication: hypoxia and hypercapnia Qualified Code(s) : J96.21 - Acute and chronic respiratory failure with hypoxia; J96.22 - Acute and chronic respiratory failure with hypercapnia (5) Acute and chronic respiratory failure with hypercapnia Code(s): J96.22 - ACUTE AND CHRONIC RESPIRATORY FAILURE WITH HYPERCAPNIA (6) Arteriosclerotic heart disease (ASHD) Code(s): I25.10 - ATHSCL HEART DISEASE OF [place] CORONARY ARTERY W/O ANG PCTRS (7) COPD exacerbation Code(s): J44.1 - CHRONIC OBSTRUCTIVE PULMONARY DISEASE W (ACUTE) EXACERBATION (8) Pulmonary hypertension Code(s): I27.20 - PULMONARY HYPERTENSION, UNSPECIFIED Assessment/Plan ASSESSMENT AND PLAN: Acute on Chronic Hypoxic Respiratory Failure improving Severe Sepsis MRAS bacteremia Atrial Fibrillation with RVR Acute COPD Exacerbation CAD LV Diastolic Dysfunction Pulmonary HTN Thrombocytopenia Anemia Pleural mass - antibiotics per ID - rate control - anticoagulation - Solumedrol - inhaled bronchodilators standing and PRN - Trilogy / BiPAP to assist in work of breathing - O2 to keep SpO2 >90% - monitor CBC, coags - aspiration precautions - normal transfusion threshold DR ARIAS
[2018-04-05] MEDS ORDERED: PT OWN MED DRAWER 7, Y5N ONE (10:58)
[2018-04-05] MEDS: POLYETHYLENE GLYCOL 3350 119 GM BTL PO SCH (11:00)
--- NOTE | 2018-04-05 11:25 | PN ---
Progress Note, Physician History of Present Illness: Feels weak, dyspnea improved, afebrile, paroxysmal afib remains in sinus rhythm on oral cardizem. MRSA bacteremia has cleared. - Current Medication List Current Medications: Active Medications Albuterol/Ipratropium (Duoneb -) 1 amp NEB RQ4H [facility] Last Admin: 04/05/18 07:35 Dose: Not Given Alprazolam (Xanax -) 0.5 mg PO Q12H PRN PRN Reason: ANXIETY Last Admin: 04/05/18 01:05 Dose: 0.5 mg Amino Acids (Prosource No Carb Liquid Pkt) 30 ml PO BID@0800,1730 [facility] Last Admin: 04/04/18 18:43 Dose: 30 ml Arformoterol Tartrate (Brovana (Restricted To Pulmonology/Resp) -) 1 amp NEB RBID [facility] Last Admin: 04/04/18 21:00 Dose: 1 amp Atorvastatin Calcium (Lipitor -) 10 mg PO HS [facility] Last Admin: 04/04/18 21:07 Dose: 10 mg Bisacodyl (Dulcolax -) 5 mg PO DAILY PRN PRN Reason: CONSTIPATION Last Admin: 04/04/18 21:04 Dose: 5 mg Budesonide/Formoterol Fumarate (Symbicort 160/4.5mcg -) 2 puff IH BID [facility] Last Admin: 04/04/18 21:09 Dose: 2 puff Diltiazem HCl (Cardizem Injection -) 10 mg IVPUSH Q4H PRN PRN Reason: TACHYCARDIA Last Admin: 04/02/18 16:06 Dose: 10 mg Diltiazem HCl (Cardizem Cd -) 120 mg PO DAILY [facility] Last Admin: 04/04/18 12:48 Dose: 120 mg Escitalopram Oxalate (Lexapro -) 20 mg PO DAILY [facility] Last Admin: 04/04/18 12:48 Dose: 20 mg Ferrous Sulfate (Feosol -) 325 mg PO DAILY [facility] Last Admin: 04/04/18 12:48 Dose: 325 mg Daptomycin 500 mg/ Sodium (Chloride) 50 mls @ 50 mls/hr IVPB DAILY [facility]; Protocol Last Admin: 04/04/18 13:32 Dose: 50 mls/hr Ceftaroline Fosamil 600 mg/ (Dextrose) 100 mls @ 100 mls/hr IVPB Q8H-IV [facility]; Protocol Last Admin: 04/05/18 01:04 Dose: 100 mls/hr Insulin Aspart (Novolog Vial Sliding Scale -) 1 vial SQ ACHS [facility]; Protocol Last Admin: 04/05/18 06:35 Dose: 2 units Lactobacillus Acidophilus (Bacid -) 1 tab PO DAILY [facility] Last Admin: 04/04/18 12:48 Dose: 1 tab Methylprednisolone Sodium Succinate (Solu-Medrol -) 30 mg IVPUSH BID [facility] Last Admin: 04/04/18 21:08 Dose: 30 mg Nystatin (Nystatin Oral Suspension -) 500,000 units PO Q6HPO [facility] Last Admin: 04/05/18 06:35 Dose: 500,000 units Pantoprazole Sodium (Protonix -) 40 mg PO BID [facility] Last Admin: 04/04/18 21:08 Dose: 40 mg Polyethylene Glycol (Miralax (For Daily Use) -) 17 gm PO DAILY [facility] Last Admin: 04/04/18 13:32 Dose: 17 gm Tamsulosin HCl (Flomax -) 0.4 mg PO DAILY@0830 [facility] Last Admin: 04/04/18 12:48 Dose: 0.4 mg Tiotropium [place] (Spiriva Respimat) 2 puff IH DAILY [facility] Last Admin: 04/04/18 13:33 Dose: 2 puff - Objective Vital Signs: Vital Signs Temperature 98.4 F 04/05/18 06:00 Pulse Rate 62 04/05/18 09:46 Respiratory Rate 18 04/05/18 09:46 Blood Pressure 128/79 04/05/18 09:46 O2 Sat by Pulse Oximetry (%) 95 04/05/18 09:00 Constitutional: Yes: No Distress, Calm, Thin Neck: Yes: Supple Cardiovascular: Yes: Regular Rate and Rhythm Respiratory: Yes: Regular, Diminished, On Nasal O2 Gastrointestinal: Yes: Normal Bowel Sounds, Soft Edema: No Labs: CBC, BMP 04/03/18 05:30 04/02/18 05:30 INR, PTT INR 1.37 (0.83-1.09) H 03/26/18 05:30 Fibrinogen 668.0 mg/dL (238-498) H 03/24/18 15:30 Problem List - Problems (1) MRSA (methicillin resistant Staphylococcus aureus) infection Code(s): A49.02 - METHICILLIN RESIS STAPH INFECTION, UNSP SITE (2) Acute and chronic respiratory failure with hypercapnia Code(s): J96.22 - ACUTE AND CHRONIC RESPIRATORY FAILURE WITH HYPERCAPNIA (3) Arteriosclerotic heart disease (ASHD) Code(s): I25.10 - ATHSCL HEART DISEASE OF [place] CORONARY ARTERY W/O ANG PCTRS (4) COPD exacerbation Code(s): J44.1 - CHRONIC OBSTRUCTIVE PULMONARY DISEASE W (ACUTE) EXACERBATION (5) Diastolic dysfunction Code(s): I51.9 - HEART DISEASE, UNSPECIFIED (6) Hyperlipidemia Code(s): E78.5 - HYPERLIPIDEMIA, UNSPECIFIED Qualifiers: Hyperlipidemia type: pure hypercholesterolemia Qualified Code(s): E78.00 - Pure hypercholesterolemia, unspecified; E78.0 - Pure hypercholesterolemia (7) Paroxysmal atrial fibrillation with rapid ventricular response Code(s): I48.0 - PAROXYSMAL ATRIAL FIBRILLATION Assessment/Plan 1. MRSA bacteremia of unclear source with splenic infarct, suspect endocarditis 2. Paroxysmal atrial fibrillation with RVR [id number] off NOAC in anticipation of procedure 3. Acute on Chronic Hypoxic and Hypercapneic Respiratory Failure improving 4. Acute exacerbation of advanced chronic cavitary obstructive pulmonary disease on home oxygen therapy with Pulmonary HTN 5. H/o Atypical Mycobacterium 6. CAD non-obstructive coronary artery disease with demnd ischemia 7. Acute on chronic diastolic failure with pleural effusions R>L 8. HTN 9. Hypercholesterolemia 10. RUL pleural-based mass, ? neoplastic 11. Sick euthyroid syndrome 12. Thrombycytopenia referable to sepsis 13. Anemia 2/2 occult GI bleed PLAN: 1. Daptomycin and Ceftaroline with f/u C&S NGTD since 03/31/2018, will require 6 week of abx post clearance 2. Continue Cardizem CD 120 qd given HR control, diuresis as needed with monitor diuretic response, renal function and electrolytes 3. Slow IV steroid taper with GI protection, bronchodilators, O2 to keep SpO2 > 90%, Trilogy / BiPAP as needed to assist in work of breathing as per the pulmonary 4. Given elevated risk score, resume Eliquis 5 bid after insertion of PICC line with monitor hemoglobin and Plt, transfuse pRBC to maintain Hgb>8.0 5. Continue Lipitor 10 qhs 6. Start Diovan 40 qd for proteinuria hemodynamics permitting 7. DVT prophylaxis, OOB to chair
[2018-04-05] MEDS: PANTOPRAZOLE 40 MG TABLET (FP) PO SCH ×2 (12:06→21:31)
[2018-04-05] MEDS: methylPREDNISolone NA SUCC 40 MG/1 ML VIAL IVPUSH SCH ×2 (12:06→21:31)
[2018-04-05] MEDS: FERROUS SO4 325 MG TABLET (FP) PO SCH (12:06)
[2018-04-05] MEDS: TAMSULOSIN HCL 0.4 MG CAP PO SCH (12:06)
[2018-04-05] MEDS: LACTOBACILLUS ACIDOPHILUS 1 TABLET PO SCH (12:07)
[2018-04-05] MEDS: AMINO ACIDS/PROTEIN HYDROLYS 30 ML LIQUID.PKT PO SCH ×2 (12:07→17:56)
[2018-04-05] MEDS: ESCITALOPRAM OXALATE 10 MG TABLET (FP) PO SCH (12:07)
--- NOTE | 2018-04-05 12:11 | PN ---
Progress Note, Physician Chief Complaint: COPD exacerbation MRSA Bacteremia History of Present Illness: NAD, feels much better Breathing much improved Has been on PO cardizem with rate controlled On Daptomycin 500 mg IV daily and ceftaroline 600 mg IV Q8H for MRSA bacteremia - would need it for another 6 weeks via PICC - Current Medication List Current Medications: Active Medications Albuterol/Ipratropium (Duoneb -) 1 amp NEB RQ4H [facility] Last Admin: 04/05/18 11:25 Dose: 1 amp Alprazolam (Xanax -) 0.5 mg PO Q12H PRN PRN Reason: ANXIETY Last Admin: 04/05/18 01:05 Dose: 0.5 mg Amino Acids (Prosource No Carb Liquid Pkt) 30 ml PO BID@0800,1730 [facility] Last Admin: 04/04/18 18:43 Dose: 30 ml Arformoterol Tartrate (Brovana (Restricted To Pulmonology/Resp) -) 1 amp NEB RBID [facility] Last Admin: 04/05/18 08:26 Dose: 1 amp Atorvastatin Calcium (Lipitor -) 10 mg PO HS [facility] Last Admin: 04/04/18 21:07 Dose: 10 mg Bisacodyl (Dulcolax -) 5 mg PO DAILY PRN PRN Reason: CONSTIPATION Last Admin: 04/04/18 21:04 Dose: 5 mg Budesonide/Formoterol Fumarate (Symbicort 160/4.5mcg -) 2 puff IH BID [facility] Last Admin: 04/04/18 21:09 Dose: 2 puff Diltiazem HCl (Cardizem Injection -) 10 mg IVPUSH Q4H PRN PRN Reason: TACHYCARDIA Last Admin: 04/02/18 16:06 Dose: 10 mg Diltiazem HCl (Cardizem Cd -) 120 mg PO DAILY [facility] Last Admin: 04/04/18 12:48 Dose: 120 mg Escitalopram Oxalate (Lexapro -) 20 mg PO DAILY [facility] Last Admin: 04/04/18 12:48 Dose: 20 mg Ferrous Sulfate (Feosol -) 325 mg PO DAILY [facility] Last Admin: 04/04/18 12:48 Dose: 325 mg Daptomycin 500 mg/ Sodium (Chloride) 50 mls @ 50 mls/hr IVPB DAILY [facility]; Protocol Last Admin: 04/04/18 13:32 Dose: 50 mls/hr Ceftaroline Fosamil 600 mg/ (Dextrose) 100 mls @ 100 mls/hr IVPB Q8H-IV [facility]; Protocol Last Admin: 04/05/18 01:04 Dose: 100 mls/hr Insulin Aspart (Novolog Vial Sliding Scale -) 1 vial SQ ACHS [facility]; Protocol Last Admin: 04/05/18 06:35 Dose: 2 units Lactobacillus Acidophilus (Bacid -) 1 tab PO DAILY [facility] Last Admin: 04/04/18 12:48 Dose: 1 tab Methylprednisolone Sodium Succinate (Solu-Medrol -) 30 mg IVPUSH BID [facility] Last Admin: 04/04/18 21:08 Dose: 30 mg Nystatin (Nystatin Oral Suspension -) 500,000 units PO Q6HPO [facility] Last Admin: 04/05/18 06:35 Dose: 500,000 units Pantoprazole Sodium (Protonix -) 40 mg PO BID [facility] Last Admin: 04/04/18 21:08 Dose: 40 mg Polyethylene Glycol (Miralax (For Daily Use) -) 17 gm PO DAILY [facility] Last Admin: 04/04/18 13:32 Dose: 17 gm Tamsulosin HCl (Flomax -) 0.4 mg PO DAILY@0830 [facility] Last Admin: 04/04/18 12:48 Dose: 0.4 mg Tiotropium [place] (Spiriva Respimat) 2 puff IH DAILY [facility] Last Admin: 04/04/18 13:33 Dose: 2 puff Valsartan (Diovan -) 40 mg PO DAILY [facility] - Objective Vital Signs: Vital Signs Temperature 98.4 F 04/05/18 06:00 Pulse Rate 62 04/05/18 09:46 Respiratory Rate 18 04/05/18 09:46 Blood Pressure 128/79 04/05/18 09:46 O2 Sat by Pulse Oximetry (%) 95 04/05/18 09:00 Constitutional: Yes: Well Nourished, No Distress, Calm Cardiovascular: Yes: Pulse Irregular Respiratory: Yes: On Nasal O2, SOB, SOB on Exertion Gastrointestinal: Yes: Normal Bowel Sounds, Soft Musculoskeletal: Yes: Muscle Weakness Edema: No Peripheral Pulses WNL: Yes Neurological: Yes: Alert, Oriented Psychiatric: Yes: Alert, Oriented Labs: CBC, BMP 04/03/18 05:30 04/02/18 05:30 INR, PTT INR 1.37 (0.83-1.09) H 03/26/18 05:30 Fibrinogen 668.0 mg/dL (238-498) H 03/24/18 15:30 Problem List - Problems (1) Sepsis Assessment/Plan: -Lactic acid normal -Afebrile -BC: Microbiology 03/31/18 05:48 Blood - Peripheral Venous Blood Culture - Preliminary NO GROWTH OBTAINED AFTER 48 HOURS, INCUBATION TO CONTINUE FOR 3 DAYS. 03/31/18 05:15 Blood - Peripheral Venous Blood Culture - Preliminary NO GROWTH OBTAINED AFTER 48 HOURS, INCUBATION TO CONTINUE FOR 3 DAYS. 03/29/18 05:30 Blood - Peripheral Venous Blood Culture - Preliminary NO GROWTH OBTAINED AFTER 96 HOURS, INCUBATION TO CONTINUE FOR 1 DAYS. 03/29/18 05:45 Blood - Peripheral Venous Blood Culture - Final S Aureus 03/27/18 06:10 Blood - Peripheral Venous Blood Culture - Final Mr S Aureus 03/27/18 05:30 Blood - Peripheral Venous Blood Culture - Final Mr S Aureus 03/25/18 12:20 Blood - Peripheral Venous Blood Culture - Final Mr S Aureus 03/25/18 12:05 Blood - Peripheral Venous Blood Culture - Final Mr S Aureus 03/24/18 11:53 Blood - Peripheral Venous Blood Culture - Final Presumptive Mrsa (Pbp2a Pos) 03/24/18 11:37 Blood - Peripheral Venous Blood Culture - Final Mr S Aureus 03/24/18 13:13 Urine - Urine - Catheterized Urine Culture - Final NO GROWTH OBTAINED -Again, would need Daptomycin 500 mg IV daily and ceftaroline 600 mg IV Q8H for MRSA bacteremia for another 6 weeks via PICC -ID on board Code(s): A41.9 - SEPSIS, UNSPECIFIED ORGANISM (2) Acute and chronic respiratory failure Assessment/Plan: -Seen by pulmonary -BIPAP, to keep SpO2 > 90% -Solumedrol 30 mg BID -Bronchodilators -IV abx Code(s): J96.20 - ACUTE AND CHR RESP FAILURE, UNSP W HYPOXIA OR HYPERCAPNIA Qualifiers: Respiratory failure complication: hypoxia and hypercapnia Qualified Code(s) : J96.21 - Acute and chronic respiratory failure with hypoxia; J96.22 - Acute and chronic respiratory failure with hypercapnia (3) COPD exacerbation Assessment/Plan: -Pulmonary on board -BIPAP -Bronchodilators -Solumedrol 30 mg bid -Nasal O2 to keep SpO2 >90% Code(s): J44.1 - CHRONIC OBSTRUCTIVE PULMONARY DISEASE W (ACUTE) EXACERBATION (4) Paroxysmal atrial fibrillation with rapid ventricular response Assessment/Plan: -Tele monitoring -On Eliquis 5 mg po bid -cardiology on board Code(s): I48.0 - PAROXYSMAL ATRIAL FIBRILLATION (5) Elevated troponin Assessment/Plan: -likely 2/2 to demand ischemia -repeat troponin series Q8H x 3-trending down Code(s): R74.8 - ABNORMAL LEVELS OF OTHER SERUM ENZYMES (6) Hypoalbuminemia Assessment/Plan: -due to decreased PO intake -Prosource Code(s): E88.09 - OTH DISORDERS OF PLASMA-PROTEIN METABOLISM, NEC (7) Protein calorie malnutrition Assessment/Plan: -due to decreased PO intake -Prosource Code(s): E46 - UNSPECIFIED PROTEIN-CALORIE MALNUTRITION (8) Anemia Assessment/Plan: -stable -B12, Thyroid profile and folic acid unremarkable -Iron % low-unable to give venofer due to bacteremia -start ferrous sulfate 325 mg po daily -stool OB- negative -monitor trend Code(s): D64.9 - ANEMIA, UNSPECIFIED Qualifiers: Anemia type: unspecified type Qualified Code(s): D64.9 - Anemia, unspecified (9) Anxiety Assessment/Plan: -Increase alprazolam to 0.5 mg po BID -On Lexapro 20 mg po daily -Psychiatry consult Code(s): F41.9 - ANXIETY DISORDER, UNSPECIFIED (10) Hyperthyroidism Assessment/Plan: -borderline -Endocrinology consult ordered Code(s): E05.90 - THYROTOXICOSIS, UNSP WITHOUT THYROTOXIC CRISIS OR STORM Assessment/Plan see problem list Physical therapy
[2018-04-05] MEDS: DAPTOMYCIN 500 MG in SODIUM CHLORIDE 50 ML IVPB SCH (12:54)
--- NOTE | 2018-04-05 16:41 | PN ---
Progress Note (short form) - Note Progress Note: no tachycardia alert resting in bed Vital Signs Period Temp Pulse Resp BP Sys/Morgan Pulse Ox Last 24 Hr 97.4 F-98.4 F 62-72 18-20 109-128/46-79 95-99 cor-rrr lungs decreased bs at bases abd soft,nt ext no edema CBC, BMP 04/03/18 05:30 04/02/18 05:30 Microbiology 03/31/18 05:48 Blood - Peripheral Venous Blood Culture - Final NO GROWTH AFTER 5 DAYS INCUBATION 03/31/18 05:15 Blood - Peripheral Venous Blood Culture - Final NO GROWTH AFTER 5 DAYS INCUBATION 04/03/18 06:00 Blood - Peripheral Venous Blood Culture - Preliminary NO GROWTH OBTAINED AFTER 48 HOURS, INCUBATION TO CONTINUE FOR 3 DAYS. 04/03/18 05:30 Blood - Peripheral Venous Blood Culture - Preliminary NO GROWTH OBTAINED AFTER 48 HOURS, INCUBATION TO CONTINUE FOR 3 DAYS. 03/29/18 05:30 Blood - Peripheral Venous Blood Culture - Final NO GROWTH AFTER 5 DAYS INCUBATION 03/29/18 05:45 Blood - Peripheral Venous Blood Culture - Final Mr S Aureus 03/27/18 06:10 Blood - Peripheral Venous Blood Culture - Final Mr S Aureus 03/27/18 05:30 Blood - Peripheral Venous Blood Culture - Final Mr S Aureus 03/25/18 12:20 Blood - Peripheral Venous Blood Culture - Final Mr S Aureus 03/25/18 12:05 Blood - Peripheral Venous Blood Culture - Final Mr S Aureus 03/24/18 11:53 Blood - Peripheral Venous Blood Culture - Final Presumptive Mrsa (Pbp2a Pos) 03/24/18 11:37 Blood - Peripheral Venous Blood Culture - Final Mr S Aureus 03/24/18 13:13 Urine - Urine - Catheterized Urine Culture - Final NO GROWTH OBTAINED a/p 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 has cleared bacteremia day #6 ceftaroline/daptomycin will need picc line for senior care iv antibiotics total 6 weeks check cpk weekly will be able to d/c ceftaroline soon stable thrombocytopenia-repeat cbc in am endstage copd rapid afib-resolved Problem List - Problems (1) Sepsis Code(s): A41.9 - SEPSIS, UNSPECIFIED ORGANISM (2) Fever Code(s): R50.9 - FEVER, UNSPECIFIED Qualifiers: Fever type: unspecified Qualified Code(s): R50.9 - Fever, unspecified (3) Acute and chronic respiratory failure Code(s): J96.20 - ACUTE AND CHR RESP FAILURE, UNSP W HYPOXIA OR HYPERCAPNIA Qualifiers: Respiratory failure complication: hypoxia and hypercapnia Qualified Code(s) : J96.21 - Acute and chronic respiratory failure with hypoxia; J96.22 - Acute and chronic respiratory failure with hypercapnia (4) Paroxysmal A-fib Code(s): I48.0 - PAROXYSMAL ATRIAL FIBRILLATION
[2018-04-05] MEDS: VALSARTAN 40 MG TABLET (FP) PO SCH (17:56)
[2018-04-05] MEDS: ATORVASTATIN CA 10 MG TABLET (FP) PO SCH (21:31)
[2018-04-06] MEDS ORDERED: PT OWN MED DRAWER 7, Y5N ONE ×2 (00:27→17:18)
[2018-04-06] MEDS: NYSTATIN 500,000 UNITS/5 ML SUSPENSION PO SCH ×5 (00:34→23:21)
[2018-04-06] MEDS: CEFTAROLINE FOSAMIL ACETATE 600 MG in DEXTROSE 5%-WATER - 100 ML IVPB SCH ×3 (01:16→17:21)
[2018-04-06] MEDS: INSULIN SLIDING SCALE (NOVOLOG) 1 VIAL SQ SCH ×2 (06:06→11:30)
[2018-04-06 07:02] LABS: HEMATOCRIT 30.5 % (35.4-49); HEMOGLOBIN 10.6 GM/dL (11.7-16.9); MCH 32.2 pg (25.7-33.7); MCHC 34.8 g/dl (32.0-35.9); MEAN CELL VOLUME 92.6 fl (80-96); MEAN PLT VOLUME 10.4 fl (7.5-11.1); PLATELET COUNT 80 K/MM3 (134-434); RDW 15.9 % (11.9-15.9); WHITE BLOOD COUNT 6.3 K/mm3 (4.0-10.0)
[2018-04-06 07:36] LABS: ALBUMIN 2.4 g/dl (3.4-5.0); ALK PHOS 74 U/L (45-117); ANION GAP 5 MMOL/L (8-16); BILIRUBIN,TOTAL 0.6 mg/dL (0.2-1); BLOOD UREA NITROGEN 19 mg/dL (7-18); CALCIUM 7.9 mg/dL (8.5-10.1); CHLORIDE 97 mmol/L (98-107); CO2 36 mmol/L (21-32); CREATININE 0.4 mg/dL (0.55-1.3); GLUCOSE,RANDOM 140 mg/dL (74-106); POTASSIUM 4.1 mmol/L (3.5-5.1); SGOT/AST 18 U/L (15-37); SGPT/ALT 40 U/L (13-61); SODIUM 138 mmol/L (136-145); TOT PROT 5.1 g/dl (6.4-8.2)
[2018-04-06] MEDS: ARFORMOTEROL TARTRATE 15 MCG/2 ML VIAL NEB SCH ×2 (07:50→20:20)
[2018-04-06] MEDS: ALPRAZolam 0.25 MG TABLET PO PRN ×2 (08:45→21:20)
[2018-04-06] MEDS: TAMSULOSIN HCL 0.4 MG CAP PO SCH (08:48)
[2018-04-06] MEDS: AMINO ACIDS/PROTEIN HYDROLYS 30 ML LIQUID.PKT PO SCH ×2 (08:48→17:21)
[2018-04-06] MEDS: predniSONE 20 MG TABLET (UD) PO SCH ×2 (09:18→21:19)
[2018-04-06] MEDS: VALSARTAN 40 MG TABLET (FP) PO SCH (09:18)
[2018-04-06] MEDS: ESCITALOPRAM OXALATE 10 MG TABLET (FP) PO SCH (09:18)
[2018-04-06] MEDS: POLYETHYLENE GLYCOL 3350 119 GM BTL PO SCH (09:18)
[2018-04-06] MEDS: PANTOPRAZOLE 40 MG TABLET (FP) PO SCH ×2 (09:18→21:26)
[2018-04-06] MEDS: LACTOBACILLUS ACIDOPHILUS 1 TABLET PO SCH (09:18)
[2018-04-06] MEDS: FERROUS SO4 325 MG TABLET (FP) PO SCH (09:18)
[2018-04-06] MEDS: BUDESONIDE/FORMETEROL FUMARATE 160/4.5 mcg INHALER IH SCH ×2 (09:19→21:20)
[2018-04-06] MEDS: TIOTROPIUM BROMIDE 2.5 MCG (SPIRIVA) RESPIMAT INHALER IH SCH (09:19)
--- NOTE | 2018-04-06 09:39 | PN ---
Progress Note (short form) - Note Progress Note: Chief Complaint: Events noted, notes reviewed, dyspnea persists but improved, reports persistent anxiety but improved, denies any chest pain, sinus rhythm is maintained History of Present Illness: Seen and examined on telemetry. Events noted, notes reviewed, dyspnea persists but improved, reports persistent anxiety but improved, denies any chest pain, sinus rhythm is maintained - Current Medication List Current Medications Alprazolam (Xanax -) 0.5 mg PO Q12H PRN PRN Reason: ANXIETY Last Admin: 04/05/18 17:56 Dose: 0.5 mg Amino Acids (Prosource No Carb Liquid Pkt) 30 ml PO BID@0800,1730 [facility] Last Admin: 04/06/18 08:48 Dose: 30 ml Arformoterol Tartrate (Brovana (Restricted To Pulmonology/Resp) -) 1 amp NEB RBID [facility] Last Admin: 04/06/18 07:50 Dose: 1 amp Atorvastatin Calcium (Lipitor -) 10 mg PO HS [facility] Last Admin: 04/05/18 21:31 Dose: 10 mg Bisacodyl (Dulcolax -) 5 mg PO DAILY PRN PRN Reason: CONSTIPATION Last Admin: 04/04/18 21:04 Dose: 5 mg Budesonide/Formoterol Fumarate (Symbicort 160/4.5mcg -) 2 puff IH BID [facility] Last Admin: 04/06/18 09:19 Dose: 2 puff Diltiazem HCl (Cardizem Injection -) 10 mg IVPUSH Q4H PRN PRN Reason: TACHYCARDIA Last Admin: 04/02/18 16:06 Dose: 10 mg Diltiazem HCl (Cardizem Cd -) 120 mg PO DAILY [facility] Last Admin: 04/06/18 09:18 Dose: 120 mg Escitalopram Oxalate (Lexapro -) 20 mg PO DAILY [facility] Last Admin: 04/06/18 09:18 Dose: 20 mg Ferrous Sulfate (Feosol -) 325 mg PO DAILY [facility] Last Admin: 04/06/18 09:18 Dose: 325 mg Daptomycin 500 mg/ Sodium (Chloride) 50 mls @ 50 mls/hr IVPB DAILY [facility]; Protocol Last Admin: 04/05/18 12:54 Dose: 50 mls/hr Ceftaroline Fosamil 600 mg/ (Dextrose) 100 mls @ 100 mls/hr IVPB Q8H-IV [facility]; Protocol Last Admin: 04/06/18 09:17 Dose: 100 mls/hr Insulin Aspart (Novolog Vial Sliding Scale -) 1 vial SQ ACHS [facility]; Protocol Last Admin: 04/06/18 06:06 Dose: 2 units Lactobacillus Acidophilus (Bacid -) 1 tab PO DAILY [facility] Last Admin: 04/06/18 09:18 Dose: 1 tab Nystatin (Nystatin Oral Suspension -) 500,000 units PO Q6HPO [facility] Last Admin: 04/06/18 06:06 Dose: 500,000 units Pantoprazole Sodium (Protonix -) 40 mg PO BID [facility] Last Admin: 04/06/18 09:18 Dose: 40 mg Polyethylene Glycol (Miralax (For Daily Use) -) 17 gm PO DAILY [facility] Last Admin: 04/06/18 09:18 Dose: 17 gm Prednisone (Deltasone -) 20 mg PO BID [facility] Last Admin: 04/06/18 09:18 Dose: 20 mg Tamsulosin HCl (Flomax -) 0.4 mg PO DAILY@0830 [facility] Last Admin: 04/06/18 08:48 Dose: 0.4 mg Tiotropium [place] (Spiriva Respimat) 2 puff IH DAILY [facility] Last Admin: 04/06/18 09:19 Dose: 2 puff Valsartan (Diovan -) 40 mg PO DAILY [facility] Last Admin: 04/06/18 09:18 Dose: 40 mg - Review of Systems Cardiovascular: As noted above Respiratory: As noted above Gastrointestinal: denies: Nausea, Vomiting, Diarrhea, Constipation or Abdominal Pain Musculoskeletal: No symptoms reported Neurological: No symptoms reported - Objective Vital Signs: Last Vital Signs Temp Pulse Resp BP Pulse Ox 97.7 F 76 20 134/70 100 04/06/18 06:00 04/06/18 06:00 04/06/18 06:00 04/06/18 06:00 04/05/18 21:00 Intake & Output 04/04/18 04/04/18 04/05/18 04/06/18 00:59 23:59 23:59 23:59 Intake Total 250 155 Output Total 575 Balance -325 155 Weight 172 lb 6 oz Neck: Supple Negative JVD Cardiovascular: S1 S2 Regular Rate Rhythm Respiratory: Diminished breath sounds Bilaterally Scattered Rhonchi Gastrointestinal: Soft Benign Normal Bowel Sounds Ext: Negative Edema Labs: CBC, BMP 04/06/18 05:30 04/06/18 05:30 Hepatic Panel Total Bilirubin 0.6 mg/dL (0.2-1) 04/06/18 05:30 AST 18 U/L (15-37) 04/06/18 05:30 ALT 40 U/L (13-61) 04/06/18 05:30 Alkaline Phosphatase 74 U/L (45-117) 04/06/18 05:30 Albumin 2.4 g/dl (3.4-5.0) L 04/06/18 05:30 Assessment/Plan ASSESSMENT: 1. 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 Paroxysmal atrial fibrillation with [id number] score of 2 on A/C with DOAC's/ Eliquis 3. Acute on Chronic Hypoxic and Hypercapneic Respiratory Failure referable to 4. Acute exacerbation of advanced chronic obstructive pulmonary disease on home oxygen therapy with Pulmonary HTN, resolving 5. History of Atypical Mycobacterium 6. CAD non-obstructive coronary artery disease angina pectoris, stable 7. Diastolic LV dysfunction with class 0-I NYHA classification LV failure, compensated/euvolemic 8. HTN 9. Hypercholesterolemia 10. Hypernatremia and pre-renal azotemia, resolved 11. Anemia and thrombocytopenia 12. RUL mass 13. Sick euthyroid syndrome PLAN: 1. Continue Cardizem CD, hemodynamics permitting 2. Continue A/C with Eliquis with caution considering the above noted anemia and thrombocytopenia, to be resumed following PICC line insertion 3. Continue Lipitor 4. Continue to hold Lasix 5. Continue Diovan, hemodynamics permitting 6. Antibiotics course as per ID service 7. Steroids and bronchodilators as per the pulmonary team Ashley Bojorquez MD
--- NOTE | 2018-04-06 11:36 | DS ---
Physical Examination Vital Signs: Vital Signs Temperature 97.7 F 04/06/18 06:00 Pulse Rate 76 04/06/18 06:00 Respiratory Rate 20 04/06/18 06:00 Blood Pressure 134/70 04/06/18 06:00 O2 Sat by Pulse Oximetry (%) 100 04/05/18 21:00 Findings/Remarks: This patient is a 67 year old male with a significant past medical history of recently diagnosed atrial fibrillation, COPD (3L of a home oxygen intubated 1x ), interstitial lung disease, pulmonary hypertension, hypertension, hyperlipidemia, CHF, AR, CAD, GERD, emphysema, and panic attacks, who was BIBA from [facility] for fever and respiratory distress. Patient was recently admitted on 03/10 in the ICU for acute COPD exacerbation and d/c 03/22. Patient s states that last night her had weakness, diarrhea, and a fever of 104 degrees F. Today she states that she spoke to him over the phone this morning and he was complaining of feeling very weak and tired. She states that the next time she was able to get in touch with someone from the SNF, she found out that he was being rushed to the ER. As per EMS, patient was given 10 mg of Decadron, 2g of magnesium sulfate, and 25 mg of Cardizem en route, the state that he was in rapid aflutter, report a temp of 99.8 that was taken at the SNF. Constitutional: Yes: Well Nourished, No Distress, Calm Cardiovascular: Yes: Regular Rate and Rhythm Respiratory: Yes: Diminished (BLL), On Nasal O2, SOB on Exertion Gastrointestinal: Yes: Normal Bowel Sounds, Soft Musculoskeletal: Yes: Muscle Weakness Extremities: Yes: WNL Edema: No Peripheral Pulses WNL: Yes Neurological: Yes: Alert, Oriented Psychiatric: Yes: Alert, Oriented Labs: CBC, BMP 04/06/18 05:30 04/06/18 05:30 Discharge Summary Reason For Visit: ACUTE RESPIRATORY DISTRESS Current Active Problems Anxiety (Acute) Diarrhea (Acute) Diverticulosis (Acute) Elevated troponin (Acute) Family history of colon cancer in mother (Acute) Gastrointestinal bleeding (Acute) History of colonic polyps (Acute) Hypoalbuminemia (Acute) Inguinal hernia of left side without obstruction or gangrene (Acute) MRSA (methicillin resistant Staphylococcus aureus) infection (Acute) Protein calorie malnutrition (Acute) Sepsis (Acute) Hospital Course: Laboratory Last Values WBC 6.3 K/mm3 (4.0-10.0) 04/06/18 05:30 RBC 3.30 M/mm3 (4.00-5.60) L 04/06/18 05:30 Hgb 10.6 GM/dL (11.7-16.9) L 04/06/18 05:30 Hct 30.5 % (35.4-49) L 04/06/18 05:30 MCV 92.6 fl (80-96) 04/06/18 05:30 MCH 32.2 pg (25.7-33.7) 04/06/18 05:30 MCHC 34.8 g/dl (32.0-35.9) 04/06/18 05:30 RDW 15.9 % (11.9-15.9) 04/06/18 05:30 Plt Count 80 K/MM3 (134-434) L D 04/06/18 05:30 MPV 10.4 fl (7.5-11.1) 04/06/18 05:30 Absolute Neuts (auto) 7.6 K/mm3 (1.5-8.0) 04/03/18 05:30 Neutrophils % 96.8 % (42.8-82.8) H 04/03/18 05:30 Neutrophils % (Manual) 99.0 % (42.8-82.8) H 04/03/18 05:30 Band Neutrophils % 0.0 % 04/03/18 05:30 Lymphocytes % 1.3 % (8-40) L D 04/03/18 05:30 Lymphocytes % (Manual) 0.0 % (8-40) L 04/03/18 05:30 Monocytes % 1.9 % (3.8-10.2) L 04/03/18 05:30 Monocytes % (Manual) 1 % (3.8-10.2) L D 04/03/18 05:30 Eosinophils % 0.0 % (0-4.5) 04/03/18 05:30 Eosinophils % (Manual) 0.0 % (0-4.5) 04/03/18 05:30 Basophils % 0.0 % (0-2.0) 04/03/18 05:30 Basophils % (Manual) 0.0 % (0-2.0) 04/03/18 05:30 Myelocytes % (Man) 0 % (0-2) 04/03/18 05:30 Promyelocytes % (Man) 0 % (0-2) 04/03/18 05:30 Blast Cells % (Manual) 0 % (0-0) 04/03/18 05:30 Nucleated RBC % 0 % (0-0) 04/03/18 05:30 Metamyelocytes 0 % (0-2) D 04/03/18 05:30 Hypochromia 0 04/03/18 05:30 Toxic Granulation 0 03/26/18 05:30 Dohle Bodies 0 03/26/18 05:30 Platelet Estimate Decreased 04/03/18 05:30 Platelet Comment Present 03/25/18 09:00 Polychromasia 0 04/03/18 05:30 Poikilocytosis 0 04/03/18 05:30 Basophilic Stippling 1+ 04/03/18 05:30 Anisocytosis 1+ 04/03/18 05:30 Microcytosis 2+ 04/02/18 05:30 Macrocytosis 1+ 04/03/18 05:30 Spherocytes 2+ 04/02/18 05:30 Sickle Cells 0 03/26/18 05:30 Target Cells 0 03/26/18 05:30 Tear Drop Cells 2+ 04/02/18 05:30 Ovalocytes 1+ 04/01/18 05:30 Stomatocytes 0 03/26/18 05:30 Helmet Cells 0 03/26/18 05:30 [place] Bodies 0 03/26/18 05:30 [place] Rings 0 03/26/18 05:30 Buddy Cells 1+ 04/02/18 05:30 Acanthocytes (Spur) 0 03/26/18 05:30 Rouleaux 0 03/26/18 05:30 Fragmented RBCs 0 03/26/18 05:30 Schistocytes 0 03/26/18 05:30 ESR 14 mm/hr (0-20) 04/06/18 05:30 Retic Count 1.84 % (0.5-1.5) H 04/01/18 05:30 PT with INR 16.20 SEC (9.7-13.0) H 03/26/18 05:30 INR 1.37 (0.83-1.09) H 03/26/18 05:30 PTT (Actin FS) 30.6 SECONDS (25.2-36.5) 03/26/18 05:30 Fibrinogen 668.0 mg/dL (238-498) H 03/24/18 15:30 Anticoagulation Therapy No Result Required. 03/25/18 05:50 Puncture Site Right radial 03/25/18 05:50 ABG pH 7.45 (7.35-7.45) 03/25/18 05:50 ABG pCO2 at Pt Temp 42.0 mmHg (35-45) 03/25/18 05:50 ABG pO2 at Pt Temp 77.1 mmHg (80-100) L D 03/25/18 05:50 ABG HCO3 28.4 meq/L (22-26) H 03/25/18 05:50 ABG O2 Sat (Measured) 95.6 % (90-98.9) 03/25/18 05:50 ABG O2 Content 11.1 % vol (15-22) L 03/25/18 05:50 ABG Base Excess 4.4 meq/l (-2-2) H 03/25/18 05:50 Pardeep Test Positive 03/25/18 05:50 Carboxyhemoglobin 1.6 gm% (0.5-2.0) 03/25/18 05:50 Methemoglobin 0.4 % (0.4-1.5) 03/25/18 05:50 O2 Delivery Device Bipap 13/1203/25/18 05:50 Oxygen Flow Rate 30% 03/25/18 05:50 Vent Mode No Result Required. 03/25/18 05:50 Vent Rate 16 03/25/18 05:50 Mechanical Rate Bipap 03/25/18 05:50 PEEP 0.0 cmH2O 03/24/18 12:01 Pressure Support Vent 13/1203/25/18 05:50 Sodium 138 mmol/L (136-145) 04/06/18 05:30 Potassium 4.1 mmol/L (3.5-5.1) 04/06/18 05:30 Chloride 97 mmol/L (98-107) L 04/06/18 05:30 Carbon Dioxide 36 mmol/L (21-32) H 04/06/18 05:30 Anion Gap 5 MMOL/L (8-16) L 04/06/18 05:30 BUN 19 mg/dL (7-18) H 04/06/18 05:30 Creatinine 0.4 mg/dL (0.55-1.3) L 04/06/18 05:30 Creat Clearance w eGFR > 60 (>60) 04/06/18 05:30 POC Glucometer 156 UNITS (80-120) 04/06/18 06:04 Random Glucose 140 mg/dL (74-106) H 04/06/18 05:30 Hemoglobin A1c % 7.4 % (4.2-6.3) H 03/25/18 09:00 Lactic Acid 1.3 mmol/L (0.4-2.0) 03/24/18 11:37 Calcium 7.9 mg/dL (8.5-10.1) L 04/06/18 05:30 Phosphorus 1.8 mg/dL (2.5-4.9) L 03/25/18 09:00 Magnesium 2.6 mg/dL (1.8-2.4) H 04/02/18 05:30 Iron 53 ug/dL (38-169) 03/31/18 10:26 TIBC 265 ug/dL (250-450) 03/31/18 10:26 Iron Saturation 20 % (15-55) 03/31/18 10:26 Ferritin 68.1 ng/ml (8-388) 04/01/18 05:30 Total Bilirubin 0.6 mg/dL (0.2-1) 04/06/18 05:30 AST 18 U/L (15-37) 04/06/18 05:30 ALT 40 U/L (13-61) 04/06/18 05:30 Alkaline Phosphatase 74 U/L (45-117) 04/06/18 05:30 Creatine Kinase 66 IU/L (26-308) 04/06/18 05:30 Troponin I 0.19 ng/ml (0.00-0.05) H 03/29/18 05:30 C-Reactive Protein 0.8 MG/DL (0.00-0.3) H 03/30/18 05:30 Total Protein 5.1 g/dl (6.4-8.2) L 04/06/18 05:30 Total Protein (PEP) 4.5 g/dL (6.0-8.5) L 04/01/18 05:30 Albumin 2.4 g/dl (3.4-5.0) L 04/06/18 05:30 Albumin (PEP) 2.5 gm/dl (2.9-4.4) L 04/01/18 05:30 Globulin 2.0 g/dL (2.2-3.9) L 04/01/18 05:30 Albumin/Globulin Ratio 1.3 (0.7-1.7) 04/01/18 05:30 Beta Globulins 0.8 gm/dL (0.7-1.3) 04/01/18 05:30 Carcinoembryonic Ag 5.6 ng/mL (0.0-4.7) H 04/01/18 05:30 Vitamin B12 1385 pg/ml (193-986) H 03/25/18 09:00 Serum Folate 19 ng/mL (3.1-17.5) H 03/25/18 09:00 TSH 0.24 uIU/ml (0.358-3.74) L D 03/25/18 09:00 Free T4 1.02 ng/dl (0.76-1.16) 03/25/18 09:00 Thyroid Stim Immunoglob <0.10 IU/L (0.00-0.55) 03/29/18 05:30 Urine Color Yellow 03/24/18 13:13 Urine Appearance Clear 03/24/18 13:13 Urine pH 7.0 (5.0-8.0) D 03/24/18 13:13 Ur Specific [place] 1.014 (1.010-1.035) 03/24/18 13:13 Urine Protein 2+ (NEGATIVE) H 03/24/18 13:13 Urine Glucose (UA) Negative (NEGATIVE) 03/24/18 13:13 Urine Ketones Negative (NEGATIVE) 03/24/18 13:13 Urine Blood 3+ (NEGATIVE) H 03/24/18 13:13 Urine Nitrite Negative (NEGATIVE) 03/24/18 13:13 Urine Bilirubin Negative (<2.0 mg/dL) 03/24/18 13:13 Urine Urobilinogen Negative mg/dL (0.2-1.0) 03/24/18 13:13 Ur Leukocyte Esterase Negative (NEGATIVE) 03/24/18 13:13 Urine WBC (Auto) 63 /hpf (3-5) 03/24/18 13:13 Urine RBC (Auto) 123 /hpf (0-3) 03/24/18 13:13 Ur Epithelial Cells Rare /HPF (FEW) 03/24/18 13:13 Hyaline Casts 1 /lpf 03/24/18 13:13 Urine Mucus Rare 03/24/18 13:13 Stool Occult Blood Negative (NEGATIVE) 03/31/18 17:30 STEPHANIE M-Robbie Not observed g/dL (Not Observed) 04/01/18 05:30 Thyroglobulin Antibody < 1.0 IU/mL (0.0-0.9) 03/29/18 05:30 Thyroid Peroxidase Ab 7 IU/mL (0-34) 03/29/18 05:30 Blood Type B POSITIVE 03/31/18 10:26 Antibody Screen Negative 03/31/18 10:26 Crossmatch See Detail 03/31/18 10:26 Microbiology 04/03/18 06:00 Blood - Peripheral Venous Blood Culture - Preliminary NO GROWTH OBTAINED AFTER 72 HOURS, INCUBATION TO CONTINUE FOR 2 DAYS. 04/03/18 05:30 Blood - Peripheral Venous Blood Culture - Preliminary NO GROWTH OBTAINED AFTER 72 HOURS, INCUBATION TO CONTINUE FOR 2 DAYS. 03/31/18 05:48 Blood - Peripheral Venous Blood Culture - Final NO GROWTH AFTER 5 DAYS INCUBATION 03/31/18 05:15 Blood - Peripheral Venous Blood Culture - Final NO GROWTH AFTER 5 DAYS INCUBATION 03/29/18 05:30 Blood - Peripheral Venous Blood Culture - Final NO GROWTH AFTER 5 DAYS INCUBATION 03/29/18 05:45 Blood - Peripheral Venous Blood Culture - Final Mr S Aureus 03/27/18 06:10 Blood - Peripheral Venous Blood Culture - Final Mr S Aureus 03/27/18 05:30 Blood - Peripheral Venous Blood Culture - Final Mr S Aureus 03/25/18 12:20 Blood - Peripheral Venous Blood Culture - Final Mr S Aureus 03/25/18 12:05 Blood - Peripheral Venous Blood Culture - Final Mr S Aureus 03/24/18 11:53 Blood - Peripheral Venous Blood Culture - Final Presumptive Mrsa (Pbp2a Pos) 03/24/18 11:37 Blood - Peripheral Venous Blood Culture - Final Mr S Aureus 03/24/18 13:13 Urine - Urine - Catheterized Urine Culture - Final NO GROWTH OBTAINED Home Medication List Medication Instructions Recorded Confirmed Type Albuterol Sulfate Inhaler - 2 inh PO Q4H 02/08/14 03/24/18 History [Ventolin HFA Inhaler -] Arformoterol Tartrate [Brovana] 15 mcg IH BID 02/08/14 03/24/18 History Tamsulosin HCl [Flomax -] 0.4 mg PO DAILY 02/08/14 03/24/18 History Tiotropium [place] [Spiriva] 1 inh PO DAILY 02/08/14 03/24/18 History Beclomethasone Dipropionate [Qvar] 8.7 gm IH DAILY 01/09/16 03/24/18 History Active Medications Generic Name Dose Route Start Last Admin Trade Name Freq PRN Reason Stop Dose Admin Alprazolam 0.5 mg 04/04/18 13:22 04/05/18 17:56 Xanax - PO 0.5 mg Q12H PRN Administration ANXIETY Amino Acids 30 ml 03/27/18 17:30 04/06/18 08:48 Prosource No Carb Liquid Pkt PO 30 ml BID@0800,1730 TA Administration Arformoterol Tartrate 1 amp 03/26/18 08:00 04/06/18 07:50 Brovana (Restricted To Pulmonology/Resp) - NEB 1 amp RBID TA Administration Atorvastatin Calcium 10 mg 03/26/18 22:00 04/05/18 21:31 Lipitor - PO 10 mg HS TA Administration Bisacodyl 5 mg 03/27/18 10:12 04/04/18 21:04 Dulcolax - PO 5 mg DAILY PRN Administration CONSTIPATION Budesonide/Formoterol Fumarate 2 puff 03/26/18 10:00 04/06/18 09:19 Symbicort 160/4.5mcg - IH 2 puff BID TA Administration Diltiazem HCl 10 mg 03/25/18 22:23 04/02/18 16:06 Cardizem Injection - IVPUSH 10 mg Q4H PRN Administration TACHYCARDIA Diltiazem HCl 120 mg 04/02/18 11:30 04/06/18 09:18 Cardizem Cd - PO 120 mg DAILY TA Administration Escitalopram Oxalate 20 mg 03/30/18 12:46 04/06/18 09:18 Lexapro - PO 20 mg DAILY TA Administration Ferrous Sulfate 325 mg 03/27/18 10:15 04/06/18 09:18 Feosol - PO 325 mg DAILY TA Administration Daptomycin 500 mg/ Sodium 50 mls @ 50 mls/hr 03/26/18 13:15 04/05/18 12:54 Chloride IVPB 50 mls/hr DAILY TA Administration Protocol Ceftaroline Fosamil 600 mg/ 100 mls @ 100 mls/hr 03/29/18 11:45 04/06/18 09: 17 Dextrose IVPB 100 mls/hr Q8H-IV TA Administration Protocol Lactobacillus Acidophilus 1 tab 03/29/18 10:00 04/06/18 09:18 Bacid - PO 1 tab DAILY TA Administration Nystatin 500,000 units 03/30/18 18:00 04/06/18 06:06 Nystatin Oral Suspension - PO 500,000 units Q6HPO TA Administration Pantoprazole Sodium 40 mg 03/31/18 22:00 04/06/18 09:18 Protonix - PO 40 mg BID TA Administration Polyethylene Glycol 17 gm 04/01/18 10:00 04/06/18 09:18 Miralax (For Daily Use) - PO 17 gm DAILY TA Administration Prednisone 20 mg 04/06/18 10:00 04/06/18 09:18 Deltasone - PO 20 mg BID TA Administration Sitagliptin Phosphate 100 mg 04/06/18 11:34 NEW START Januvia - PO DAILY@0700 TA Tamsulosin HCl 0.4 mg 03/27/18 08:30 04/06/18 08:48 Flomax - PO 0.4 mg DAILY@0830 [facility] Administration Tiotropium [place] 2 puff 03/27/18 10:00 04/06/18 09:19 Spiriva Respimat IH 2 puff DAILY TA Administration Valsartan 40 mg 04/05/18 11:45 04/06/18 09:18 Diovan - PO 40 mg DAILY TA Administration Condition: Stable - Instructions Diet, Activity, Other Instructions: low cholesterol-no [id number] diet CBC/CMP weekly Referrals: Mony Leslie MD [Primary Care Provider] - Disposition: [facility] FACILITY - Home Medications Comprehensive Discharge Medication List: Ambulatory Orders Albuterol Sulfate Inhaler - [Ventolin HFA Inhaler -] 2 inh PO Q4H 02/08/14 Arformoterol Tartrate [Brovana] 15 mcg IH BID 02/08/14 Tamsulosin HCl [Flomax -] 0.4 mg PO DAILY 02/08/14 Tiotropium [place] [Spiriva] 1 inh PO DAILY 02/08/14 Beclomethasone Dipropionate [Qvar] 8.7 gm IH DAILY 01/09/16 Polyethylene Glycol 3350 [Miralax 119 gm Btl -] 17 gm PO DAILY PRN #1 bottle 10/15 Ferrous Sulfate [Feosol] 325 mg PO BID ud 05/06/17 Furosemide [Lasix -] 20 mg PO DAILY tablet 05/06/17 Acetaminophen [Tylenol .Regular Strength -] 650 mg PO Q4H PRN tablet 02/20/18 Magnesium Hydrox 2400MG/30Ml [Milk of Magnesia -] 30 ml PO DAILY PRN #1 bottle 02/20/18 Prednisone 10 mg PO ASDIR #65 tablet 02/20/18 Sennosides [Senna -] 2 tab PO HS PRN #60 tablet 02/20/18 Albuterol 0.083% Nebulizer Portia [Ventolin 0.083% Nebulizer Soln -] 1 neb NEB Q4H PRN #75 vial 03/06/18 Albuterol 2.5/Ipratropium 0.5 [Duoneb -] 1 amp NEB RQID amp 03/22/18 Alprazolam [Xanax] 0.25 mg PO Q6HPO #20 tablet MDD 4 03/22/18 Apixaban [Eliquis -] 5 mg PO BID tablet 03/22/18 Atorvastatin Ca [Lipitor] 10 mg PO HS tablet 03/22/18 Diltiazem Cd [Cardizem Cd -] 120 mg PO BID cap.cd.24h 03/22/18 Escitalopram Oxalate [Lexapro -] 10 mg PO DAILY tablet 03/22/18 predniSONE [Deltasone -] 30 mg PO BID tablet 03/22/18
--- NOTE | 2018-04-06 11:57 | PN ---
Progress Note, Physician History of Present Illness: pulmonary alert,oob-chair,comfortable,-resp distress - Current Medication List Current Medications: Active Medications Alprazolam (Xanax -) 0.5 mg PO Q12H PRN PRN Reason: ANXIETY Last Admin: 04/05/18 17:56 Dose: 0.5 mg Amino Acids (Prosource No Carb Liquid Pkt) 30 ml PO BID@0800,1730 [facility] Last Admin: 04/06/18 08:48 Dose: 30 ml Arformoterol Tartrate (Brovana (Restricted To Pulmonology/Resp) -) 1 amp NEB RBID [facility] Last Admin: 04/06/18 07:50 Dose: 1 amp Atorvastatin Calcium (Lipitor -) 10 mg PO HS [facility] Last Admin: 04/05/18 21:31 Dose: 10 mg Bisacodyl (Dulcolax -) 5 mg PO DAILY PRN PRN Reason: CONSTIPATION Last Admin: 04/04/18 21:04 Dose: 5 mg Budesonide/Formoterol Fumarate (Symbicort 160/4.5mcg -) 2 puff IH BID [facility] Last Admin: 04/06/18 09:19 Dose: 2 puff Diltiazem HCl (Cardizem Injection -) 10 mg IVPUSH Q4H PRN PRN Reason: TACHYCARDIA Last Admin: 04/02/18 16:06 Dose: 10 mg Diltiazem HCl (Cardizem Cd -) 120 mg PO DAILY [facility] Last Admin: 04/06/18 09:18 Dose: 120 mg Escitalopram Oxalate (Lexapro -) 20 mg PO DAILY [facility] Last Admin: 04/06/18 09:18 Dose: 20 mg Ferrous Sulfate (Feosol -) 325 mg PO DAILY [facility] Last Admin: 04/06/18 09:18 Dose: 325 mg Daptomycin 500 mg/ Sodium (Chloride) 50 mls @ 50 mls/hr IVPB DAILY [facility]; Protocol Last Admin: 04/05/18 12:54 Dose: 50 mls/hr Ceftaroline Fosamil 600 mg/ (Dextrose) 100 mls @ 100 mls/hr IVPB Q8H-IV [facility]; Protocol Last Admin: 04/06/18 09:17 Dose: 100 mls/hr Lactobacillus Acidophilus (Bacid -) 1 tab PO DAILY [facility] Last Admin: 04/06/18 09:18 Dose: 1 tab Nystatin (Nystatin Oral Suspension -) 500,000 units PO Q6HPO [facility] Last Admin: 04/06/18 06:06 Dose: 500,000 units Pantoprazole Sodium (Protonix -) 40 mg PO BID [facility] Last Admin: 04/06/18 09:18 Dose: 40 mg Polyethylene Glycol (Miralax (For Daily Use) -) 17 gm PO DAILY [facility] Last Admin: 04/06/18 09:18 Dose: 17 gm Prednisone (Deltasone -) 20 mg PO BID [facility] Last Admin: 04/06/18 09:18 Dose: 20 mg Sitagliptin Phosphate (Januvia -) 100 mg PO DAILY@0700 [facility] Tamsulosin HCl (Flomax -) 0.4 mg PO DAILY@0830 [facility] Last Admin: 04/06/18 08:48 Dose: 0.4 mg Tiotropium [place] (Spiriva Respimat) 2 puff IH DAILY [facility] Last Admin: 04/06/18 09:19 Dose: 2 puff Valsartan (Diovan -) 40 mg PO DAILY [facility] Last Admin: 04/06/18 09:18 Dose: 40 mg - Objective Vital Signs: Vital Signs Temperature 97.7 F 04/06/18 06:00 Pulse Rate 82 04/06/18 10:00 Respiratory Rate 24 H 04/06/18 10:00 Blood Pressure 128/67 04/06/18 10:00 O2 Sat by Pulse Oximetry (%) 100 04/05/18 21:00 Constitutional: Yes: Calm, Thin Eyes: Yes: WNL HENT: Yes: WNL Neck: Yes: WNL Cardiovascular: Yes: Pulse Irregular, S1, S2 Respiratory: Yes: Rhonchi (few rhonchi) Gastrointestinal: Yes: Normal Bowel Sounds, Soft Extremities: Yes: WNL Edema: Yes Labs: CBC, BMP 04/06/18 05:30 04/06/18 05:30 INR, PTT INR 1.37 (0.83-1.09) H 03/26/18 05:30 Fibrinogen 668.0 mg/dL (238-498) H 03/24/18 15:30 Problem List - Problems (1) MRSA (methicillin resistant Staphylococcus aureus) infection Code(s): A49.02 - METHICILLIN RESIS STAPH INFECTION, UNSP SITE (2) Diarrhea Code(s): R19.7 - DIARRHEA, UNSPECIFIED (3) Sepsis Code(s): A41.9 - SEPSIS, UNSPECIFIED ORGANISM (4) Acute and chronic respiratory failure Code(s): J96.20 - ACUTE AND CHR RESP FAILURE, UNSP W HYPOXIA OR HYPERCAPNIA Qualifiers: Respiratory failure complication: hypoxia and hypercapnia Qualified Code(s) : J96.21 - Acute and chronic respiratory failure with hypoxia; J96.22 - Acute and chronic respiratory failure with hypercapnia (5) Acute and chronic respiratory failure with hypercapnia Code(s): J96.22 - ACUTE AND CHRONIC RESPIRATORY FAILURE WITH HYPERCAPNIA (6) Arteriosclerotic heart disease (ASHD) Code(s): I25.10 - ATHSCL HEART DISEASE OF [place] CORONARY ARTERY W/O ANG PCTRS (7) COPD exacerbation Code(s): J44.1 - CHRONIC OBSTRUCTIVE PULMONARY DISEASE W (ACUTE) EXACERBATION (8) Pulmonary hypertension Code(s): I27.20 - PULMONARY HYPERTENSION, UNSPECIFIED Assessment/Plan ASSESSMENT AND PLAN: Acute on Chronic Hypoxic Respiratory Failure improving Severe Sepsis MRAS bacteremia Atrial Fibrillation with RVR Acute COPD Exacerbation CAD LV Diastolic Dysfunction Pulmonary HTN Thrombocytopenia Anemia Pleural mass - antibiotics per ID - rate control - anticoagulation - Prednisone - inhaled bronchodilators standing and PRN - Trilogy / BiPAP to assist in work of breathing - O2 to keep SpO2 >90% - monitor CBC, coags - aspiration precautions - normal transfusion threshold DR ARIAS
[2018-04-06] MEDS: sitaGLIPtin PHOSPHATE 100 MG TABLET (FP) PO SCH (12:34)
[2018-04-06] MEDS: DAPTOMYCIN 500 MG in SODIUM CHLORIDE 50 ML IVPB SCH (12:34)
--- NOTE | 2018-04-06 17:13 | PN ---
Progress Note (short form) - Note Progress Note: nad oob in chair for several hours today alert Vital Signs Period Temp Pulse Resp BP Sys/Morgan Pulse Ox Last 24 Hr 96.6 F-98.2 F 69-82 20-24 106-134/46-76 96-100 cor-rrr lungs decreased bs at bases abd soft,nt ext no edema CBC, BMP 04/06/18 05:30 04/06/18 05:30 Microbiology 04/03/18 06:00 Blood - Peripheral Venous Blood Culture - Preliminary NO GROWTH OBTAINED AFTER 72 HOURS, INCUBATION TO CONTINUE FOR 2 DAYS. 04/03/18 05:30 Blood - Peripheral Venous Blood Culture - Preliminary NO GROWTH OBTAINED AFTER 72 HOURS, INCUBATION TO CONTINUE FOR 2 DAYS. 03/31/18 05:48 Blood - Peripheral Venous Blood Culture - Final NO GROWTH AFTER 5 DAYS INCUBATION 03/31/18 05:15 Blood - Peripheral Venous Blood Culture - Final NO GROWTH AFTER 5 DAYS INCUBATION 03/29/18 05:30 Blood - Peripheral Venous Blood Culture - Final NO GROWTH AFTER 5 DAYS INCUBATION 03/29/18 05:45 Blood - Peripheral Venous Blood Culture - Final Mr S Aureus 03/27/18 06:10 Blood - Peripheral Venous Blood Culture - Final Mr S Aureus 03/27/18 05:30 Blood - Peripheral Venous Blood Culture - Final Mr S Aureus 03/25/18 12:20 Blood - Peripheral Venous Blood Culture - Final Mr S Aureus 03/25/18 12:05 Blood - Peripheral Venous Blood Culture - Final Mr S Aureus 03/24/18 11:53 Blood - Peripheral Venous Blood Culture - Final Presumptive Mrsa (Pbp2a Pos) 03/24/18 11:37 Blood - Peripheral Venous Blood Culture - Final Mr S Aureus 03/24/18 13:13 Urine - Urine - Catheterized Urine Culture - Final NO GROWTH OBTAINED a/p 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 has cleared bacteremia day #7 ceftaroline/daptomycin will need picc line for halfway iv antibiotics total 6 weeks check cpk weekly, check cbc, cmp weekly will be able to d/c ceftaroline soon and continue daptomycin alone repeat cxray today stable thrombocytopenia- endstage copd rapid afib-resolved d/w at bedside Problem List - Problems (1) Sepsis Code(s): A41.9 - SEPSIS, UNSPECIFIED ORGANISM (2) Fever Code(s): R50.9 - FEVER, UNSPECIFIED Qualifiers: Fever type: unspecified Qualified Code(s): R50.9 - Fever, unspecified (3) Acute and chronic respiratory failure Code(s): J96.20 - ACUTE AND CHR RESP FAILURE, UNSP W HYPOXIA OR HYPERCAPNIA Qualifiers: Respiratory failure complication: hypoxia and hypercapnia Qualified Code(s) : J96.21 - Acute and chronic respiratory failure with hypoxia; J96.22 - Acute and chronic respiratory failure with hypercapnia (4) Paroxysmal A-fib Code(s): I48.0 - PAROXYSMAL ATRIAL FIBRILLATION
[2018-04-06] MEDS ORDERED: PICC LINE 8 ML FLUSH PROTOCOL IVPUSH PRN (17:22)
[2018-04-06] MEDS: ATORVASTATIN CA 10 MG TABLET (FP) PO SCH (21:20)
[2018-04-07] MEDS: CEFTAROLINE FOSAMIL ACETATE 600 MG in DEXTROSE 5%-WATER - 100 ML IVPB SCH ×2 (01:07→09:01)
[2018-04-07] MEDS: NYSTATIN 500,000 UNITS/5 ML SUSPENSION PO SCH ×2 (06:28→11:44)
[2018-04-07] MEDS: sitaGLIPtin PHOSPHATE 100 MG TABLET (FP) PO SCH (06:32)
[2018-04-07] MEDS: AMINO ACIDS/PROTEIN HYDROLYS 30 ML LIQUID.PKT PO SCH (07:54)
[2018-04-07] MEDS: TAMSULOSIN HCL 0.4 MG CAP PO SCH (07:54)
[2018-04-07] MEDS: ARFORMOTEROL TARTRATE 15 MCG/2 ML VIAL NEB SCH (08:35)
--- NOTE | 2018-04-07 08:57 | DS ---
Physical Examination Vital Signs: Vital Signs Temperature 98.1 F 04/07/18 06:00 Pulse Rate 66 04/07/18 06:00 Respiratory Rate 22 H 04/07/18 06:00 Blood Pressure 100/55 L 04/07/18 06:00 O2 Sat by Pulse Oximetry (%) 99 04/06/18 21:00 Cardiovascular: Yes: S1, S2 Respiratory: Yes: On Nasal O2, Rhonchi Gastrointestinal: Yes: Normal Bowel Sounds, Soft Labs: CBC, BMP 04/06/18 05:30 04/06/18 05:30 Discharge Summary Reason For Visit: ACUTE RESPIRATORY DISTRESS Current Active Problems Anxiety (Acute) Diarrhea (Acute) Diverticulosis (Acute) Elevated troponin (Acute) Family history of colon cancer in mother (Acute) Gastrointestinal bleeding (Acute) History of colonic polyps (Acute) Hypoalbuminemia (Acute) Inguinal hernia of left side without obstruction or gangrene (Acute) MRSA (methicillin resistant Staphylococcus aureus) infection (Acute) Protein calorie malnutrition (Acute) Sepsis (Acute) Hospital Course: This patient is a 67 year old male with a significant past medical history of recently diagnosed atrial fibrillation, COPD (3L of a home oxygen intubated 1x ), interstitial lung disease, pulmonary hypertension, hypertension, hyperlipidemia, CHF, [place], CAD, GERD, emphysema, and panic attacks, who was BIBA from [facility] for fever and respiratory distress. Patient was recently admitted on 03/10 in the ICU for acute COPD exacerbation and d/c 03/22. Patient s states that last night her had weakness, diarrhea, and a fever of 104 degrees F. Today she states that she spoke to him over the phone this morning and he was complaining of feeling very weak and tired. She states that the next time she was able to get in touch with someone from the SNF, she found out that he was being rushed to the ER. As per EMS, patient was given 10 mg of Decadron, 2g of magnesium sulfate, and 25 mg of Cardizem en route, the state that he was in rapid aflutter, report a temp of 99.8 that was taken at the SNF. - Problems (1) Sepsis Assessment/Plan: -Lactic acid normal -Afebrile -BC: Microbiology 03/31/18 05:48 Blood - Peripheral Venous Blood Culture - Preliminary NO GROWTH OBTAINED AFTER 48 HOURS, INCUBATION TO CONTINUE FOR 3 DAYS. 03/31/18 05:15 Blood - Peripheral Venous Blood Culture - Preliminary NO GROWTH OBTAINED AFTER 48 HOURS, INCUBATION TO CONTINUE FOR 3 DAYS. 03/29/18 05:30 Blood - Peripheral Venous Blood Culture - Preliminary NO GROWTH OBTAINED AFTER 96 HOURS, INCUBATION TO CONTINUE FOR 1 DAYS. 03/29/18 05:45 Blood - Peripheral Venous Blood Culture - Final S Aureus 03/27/18 06:10 Blood - Peripheral Venous Blood Culture - Final Mr S Aureus 03/27/18 05:30 Blood - Peripheral Venous Blood Culture - Final Mr S Aureus 03/25/18 12:20 Blood - Peripheral Venous Blood Culture - Final Mr S Aureus 03/25/18 12:05 Blood - Peripheral Venous Blood Culture - Final Mr S Aureus 03/24/18 11:53 Blood - Peripheral Venous Blood Culture - Final Presumptive Mrsa (Pbp2a Pos) 03/24/18 11:37 Blood - Peripheral Venous Blood Culture - Final Mr S Aureus 03/24/18 13:13 Urine - Urine - Catheterized Urine Culture - Final NO GROWTH OBTAINED -Again, would need Daptomycin 500 mg IV daily and ceftaroline 600 mg IV Q8H for MRSA bacteremia for another 6 weeks via PICC -ID on board a/p 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 has cleared bacteremia day #7 ceftaroline/daptomycin will need picc line for long-term iv antibiotics total 6 weeks check cpk weekly, check cbc, cmp weekly will be able to d/c ceftaroline soon and continue daptomycin alone repeat cxray no change Code(s): A41.9 - SEPSIS, UNSPECIFIED ORGANISM (2) Acute and chronic respiratory failure Assessment/Plan: -Seen by pulmonary -BIPAP, to keep SpO2 > 90% -Solumedrol 30 mg BID -Bronchodilators -IV abx Code(s): J96.20 - ACUTE AND CHR RESP FAILURE, UNSP W HYPOXIA OR HYPERCAPNIA Qualifiers: Respiratory failure complication: hypoxia and hypercapnia Qualified Code(s) : J96.21 - Acute and chronic respiratory failure with hypoxia; J96.22 - Acute and chronic respiratory failure with hypercapnia (3) COPD exacerbation Assessment/Plan: -Pulmonary on board -BIPAP -Bronchodilators -Solumedrol 30 mg bid -Nasal O2 to keep SpO2 >90% Code(s): J44.1 - CHRONIC OBSTRUCTIVE PULMONARY DISEASE W (ACUTE) EXACERBATION (4) Paroxysmal atrial fibrillation with rapid ventricular response Assessment/Plan: -Tele monitoring -On Eliquis 5 mg po bid -cardiology on board Code(s): I48.0 - PAROXYSMAL ATRIAL FIBRILLATION (5) Elevated troponin Assessment/Plan: -likely 2/2 to demand ischemia -repeat troponin series Q8H x 3-trending down Code(s): R74.8 - ABNORMAL LEVELS OF OTHER SERUM ENZYMES (6) Hypoalbuminemia Assessment/Plan: -due to decreased PO intake -Prosource Code(s): E88.09 - OTH DISORDERS OF PLASMA-PROTEIN METABOLISM, NEC (7) Protein calorie malnutrition Assessment/Plan: -due to decreased PO intake -Prosource Code(s): E46 - UNSPECIFIED PROTEIN-CALORIE MALNUTRITION (8) Anemia Assessment/Plan: -stable -B12, Thyroid profile and folic acid unremarkable -Iron % low-unable to give venofer due to bacteremia -start ferrous sulfate 325 mg po daily -stool OB- negative -monitor trend Code(s): D64.9 - ANEMIA, UNSPECIFIED Qualifiers: Anemia type: unspecified type Qualified Code(s): D64.9 - Anemia, unspecified (9) Anxiety Assessment/Plan: -Increase alprazolam to 0.5 mg po BID -On Lexapro 20 mg po daily -Psychiatry consult Code(s): F41.9 - ANXIETY DISORDER, UNSPECIFIED (10) Hyperthyroidism Assessment/Plan: -borderline -Endocrinology consult ordered Code(s): E05.90 - THYROTOXICOSIS, UNSP WITHOUT THYROTOXIC CRISIS OR STORM Condition: Stable - Instructions Diet, Activity, Other Instructions: low cholesterol-no [id number] diet CBC/CMP weekly Referrals: Mony Leslie MD [Primary Care Provider] - Disposition: HALF-WAY FACILITY - Home Medications Comprehensive Discharge Medication List: Ambulatory Orders Arformoterol Tartrate [Brovana] 15 mcg IH BID 02/08/14 Alprazolam [Xanax] 0.5 mg PO Q12H PRN tablet MDD 2 04/07/18 Amino Acids/Protein Hydrolys [Prosource No Carb Liquid Pkt] 30 ml PO BID@0800, 1730 packet 04/07/18 Atorvastatin Ca [Lipitor] 10 mg PO HS tablet 04/07/18 Bisacodyl [Bisacodyl -] 5 mg PO DAILY PRN tablet. 04/07/18 Budesonide/Formeterol Fumarate [SYMBICORT 160/4.5mcg -] 2 puff IH BID inhaler 04/07/18 Ceftaroline Fosamil Acetate [Teflaro (Restricted To Id)] 600 mg IVPB Q8H-IV vial 04/07/18 Daptomycin [Cubicin (Restricted To Id) -] 500 mg IVPB DAILY vial 04/07/18 Diltiazem Cd [Cardizem Cd -] 120 mg PO DAILY cap.cd.24h 04/07/18 Escitalopram Oxalate [Lexapro -] 20 mg PO DAILY tablet 04/07/18 Ferrous Sulfate [Feosol] 325 mg PO DAILY ud 04/07/18 Insulin Sliding Scale [Novolog Vial Sliding Scale -] 1 vial SQ ACHS units 04/07 Lactobacillus Acidophilus [Bacid -] 1 tab PO DAILY tab 04/07/18 Nystatin Oral Suspension - [Nystatin Oral Susp 467235 Units/5 ML -] 500,000 units PO Q6HPO cup 04/07/18 Pantoprazole Sodium [Protonix -] 40 mg PO BID tablet.ec 04/07/18 Picc Line Flush [Picc Line Flush -] 8 ml IVPUSH PRN PRN ml 04/07/18 Polyethylene Glycol 3350 [Miralax 119 gm Btl -] 17 gm PO DAILY bottle 04/07/18 Sitagliptin Phosphate [Januvia -] 100 mg PO DAILY@0700 ud 04/07/18 Tamsulosin HCl [Flomax -] 0.4 mg PO DAILY@0830 cap.er.24h 04/07/18 Tiotropium [place] [Spiriva Respimat] 2 puff IH DAILY inhaler 04/07/18 Valsartan [Diovan] 40 mg PO DAILY tablet 04/07/18 predniSONE [Deltasone -] 20 mg PO BID tablet 04/07/18
--- NOTE | 2018-04-07 10:03 | PN ---
Progress Note (short form) - Note Progress Note: Vital Signs Period Temp Pulse Resp BP Sys/Morgan Pulse Ox Last 24 Hr 96.8 F-98.7 F 65-82 22-24 100-134/33-76 99 CBC, BMP 04/06/18 05:30 04/06/18 05:30 Laboratory Tests 03/29/18 03/30/18 04/06/18 05:30 05:30 05:30 ESR 104 H Creatine Kinase 40 66 04/06/18 05:30 ESR 14 Creatine Kinase Microbiology 04/03/18 06:00 Blood - Peripheral Venous Blood Culture - Preliminary NO GROWTH OBTAINED AFTER 96 HOURS, INCUBATION TO CONTINUE FOR 1 DAYS. 04/03/18 05:30 Blood - Peripheral Venous Blood Culture - Preliminary NO GROWTH OBTAINED AFTER 96 HOURS, INCUBATION TO CONTINUE FOR 1 DAYS. 03/31/18 05:48 Blood - Peripheral Venous Blood Culture - Final NO GROWTH AFTER 5 DAYS INCUBATION 03/31/18 05:15 Blood - Peripheral Venous Blood Culture - Final NO GROWTH AFTER 5 DAYS INCUBATION 03/29/18 05:30 Blood - Peripheral Venous Blood Culture - Final NO GROWTH AFTER 5 DAYS INCUBATION 03/29/18 05:45 Blood - Peripheral Venous Blood Culture - Final Mr S Aureus 03/27/18 06:10 Blood - Peripheral Venous Blood Culture - Final Mr S Aureus 03/27/18 05:30 Blood - Peripheral Venous Blood Culture - Final Mr S Aureus 03/25/18 12:20 Blood - Peripheral Venous Blood Culture - Final Mr S Aureus 03/25/18 12:05 Blood - Peripheral Venous Blood Culture - Final Mr S Aureus 03/24/18 11:53 Blood - Peripheral Venous Blood Culture - Final Presumptive Mrsa (Pbp2a Pos) 03/24/18 11:37 Blood - Peripheral Venous Blood Culture - Final Mr S Aureus 03/24/18 13:13 Urine - Urine - Catheterized Urine Culture - Final NO GROWTH OBTAINED a/p 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 has cleared bacteremia day # 8 ceftaroline/daptomycin will need picc line for [facility] iv antibiotics total 6 weeks check cpk weekly, check cbc, cmp weekly will be able to d/c ceftaroline soon and continue daptomycin alone repeat cxray no acute infiltrate will d/c ceftaroline daptomycin #8/42 (6mg/kg ivpb daily)- PLEASE monitor labs weekly d/w cardiology Dr Sharp will hold lipitor while he is on the daptomycin, can resume after he finishes daptomycin stable thrombocytopenia- endstage copd rapid afib-resolved can f/u as needed in our office with Dr Vanegas [phone] Problem List - Problems (1) Sepsis Code(s): A41.9 - SEPSIS, UNSPECIFIED ORGANISM (2) Fever Code(s): R50.9 - FEVER, UNSPECIFIED Qualifiers: Fever type: unspecified Qualified Code(s): R50.9 - Fever, unspecified (3) Acute and chronic respiratory failure Code(s): J96.20 - ACUTE AND CHR RESP FAILURE, UNSP W HYPOXIA OR HYPERCAPNIA Qualifiers: Respiratory failure complication: hypoxia and hypercapnia Qualified Code(s) : J96.21 - Acute and chronic respiratory failure with hypoxia; J96.22 - Acute and chronic respiratory failure with hypercapnia (4) Paroxysmal A-fib Code(s): I48.0 - PAROXYSMAL ATRIAL FIBRILLATION
[2018-04-07 10:17] VITALS: TEMP 98
[2018-04-07] MEDS: ESCITALOPRAM OXALATE 10 MG TABLET (FP) PO SCH (11:44)
[2018-04-07] MEDS: FERROUS SO4 325 MG TABLET (FP) PO SCH (11:44)
[2018-04-07] MEDS: PANTOPRAZOLE 40 MG TABLET (FP) PO SCH (11:44)
[2018-04-07] MEDS: predniSONE 20 MG TABLET (UD) PO SCH (11:44)
[2018-04-07] MEDS: LACTOBACILLUS ACIDOPHILUS 1 TABLET PO SCH (11:44)
[2018-04-07] MEDS: TIOTROPIUM BROMIDE 2.5 MCG (SPIRIVA) RESPIMAT INHALER IH SCH (11:48)
[2018-04-07] MEDS: BUDESONIDE/FORMETEROL FUMARATE 160/4.5 mcg INHALER IH SCH (11:48)
[2018-04-07] MEDS: VALSARTAN 40 MG TABLET (FP) PO SCH (11:54)
[2018-04-07] MEDS: POLYETHYLENE GLYCOL 3350 119 GM BTL PO SCH (12:07)
[2018-04-07] MEDS: DAPTOMYCIN 500 MG in SODIUM CHLORIDE 50 ML IVPB SCH (12:09)
[2018-04-07 12:17] VITALS: BP 110/58; PULSE 61
[2018-04-07] MEDS: BISACODYL 5 MG TABLET.DR (FP) PO PRN (13:44)
--- NOTE | 2018-04-07 15:52 | PN ---
Progress Note, Physician History of Present Illness: Patient d/star prior to being seen. - Objective Vital Signs: Vital Signs Temperature 98.0 F 04/07/18 10:00 Pulse Rate 61 04/07/18 11:50 Respiratory Rate 24 H 04/07/18 11:50 Blood Pressure 110/58 L 04/07/18 11:50 O2 Sat by Pulse Oximetry (%) 99 04/07/18 09:00 Labs: CBC, BMP 04/06/18 05:30 04/06/18 05:30 INR, PTT INR 1.37 (0.83-1.09) H 03/26/18 05:30 Fibrinogen 668.0 mg/dL (238-498) H 03/24/18 15:30 Problem List - Problems (1) MRSA (methicillin resistant Staphylococcus aureus) infection Code(s): A49.02 - METHICILLIN RESIS STAPH INFECTION, UNSP SITE (2) Acute and chronic respiratory failure with hypercapnia Code(s): J96.22 - ACUTE AND CHRONIC RESPIRATORY FAILURE WITH HYPERCAPNIA (3) Arteriosclerotic heart disease (ASHD) Code(s): I25.10 - ATHSCL HEART DISEASE OF [place] CORONARY ARTERY W/O ANG PCTRS (4) COPD exacerbation Code(s): J44.1 - CHRONIC OBSTRUCTIVE PULMONARY DISEASE W (ACUTE) EXACERBATION (5) Diastolic dysfunction Code(s): I51.9 - HEART DISEASE, UNSPECIFIED (6) Hyperlipidemia Code(s): E78.5 - HYPERLIPIDEMIA, UNSPECIFIED Qualifiers: Hyperlipidemia type: pure hypercholesterolemia Qualified Code(s): E78.00 - Pure hypercholesterolemia, unspecified; E78.0 - Pure hypercholesterolemia (7) Paroxysmal atrial fibrillation with rapid ventricular response Code(s): I48.0 - PAROXYSMAL ATRIAL FIBRILLATION Assessment/Plan 1. MRSA bacteremia of unclear source with splenic infarct, suspect endocarditis 2. Paroxysmal atrial fibrillation with RVR [id number] off NOAC in anticipation of procedure 3. Acute on Chronic Hypoxic and Hypercapneic Respiratory Failure improving 4. Acute exacerbation of advanced chronic cavitary obstructive pulmonary disease on home oxygen therapy with Pulmonary HTN 5. H/o Atypical Mycobacterium 6. CAD non-obstructive coronary artery disease with demnd ischemia 7. Acute on chronic diastolic failure with pleural effusions R>L 8. HTN 9. Hypercholesterolemia 10. RUL pleural-based mass, ? neoplastic 11. Sick euthyroid syndrome 12. Thrombycytopenia referable to sepsis 13. Anemia 2/2 occult GI bleed PLAN: 1. Daptomycin and Ceftaroline with f/u C&S NGTD since 03/31/2018, requires 6 week of abx post clearance via PICC 2. Continue Cardizem CD 120 qd, IV diuresis as needed with monitor diuretic response, renal function and electrolytes 3. Slow IV steroid taper with GI protection, bronchodilators, O2 to keep SpO2 > 90%, Trilogy / BiPAP as needed to assist in work of breathing as per the pulmonary 4. Given elevated risk score, resume Eliquis 5 bid after insertion of PICC line with monitor hemoglobin and Plt, transfuse pRBC to maintain Hgb>8.0 5. Lipitor 10 qhs temporarily held while on Dapto given risk of rhabdomyolysis 6. D/c planning
[2018-04-08] MEDS ORDERED: DAPTOMYCIN 400 MG in SODIUM CHLORIDE 50 ML IVPB SCH (10:00)
== END 2018-04-07 15:19 | DRG 871 ==
LOC: JER 11:01 → JERBED 14:51 → JICU 03-25 04:52 → J4W 03-25 21:58
PROVIDERS: ADMIT Family Medicine; ATTEND Family Medicine
PROC: 02HV33Z Insertion of Infusion Device into Superior Vena Cava, Percutaneous Approach (ICD-10-PCS; principal; 2018-04-07)
DX: A41.02 Sepsis due to Methicillin resistant Staphylococcus aureus (principal); J96.21 Acute and chronic respiratory failure with hypoxia; J96.22 Acute and chronic respiratory failure with hypercapnia; I50.33 Acute on chronic diastolic (congestive) heart failure; I33.0 Acute and subacute infective endocarditis; J84.9 Interstitial pulmonary disease, unspecified; N39.0 Urinary tract infection, site not specified; J44.1 Chronic obstructive pulmonary disease with (acute) exacerbation; I24.8 Other forms of acute ischemic heart disease; E46 Unspecified protein-calorie malnutrition; Z68.1 Body mass index [BMI] 19.9 or less, adult; D73.5 Infarction of spleen; B95.62 Methicillin resistant Staphylococcus aureus infection as the cause of diseases classified elsewhere; I11.0 Hypertensive heart disease with heart failure; I25.10 Atherosclerotic heart disease of native coronary artery without angina pectoris; R65.20 Severe sepsis without septic shock; K21.9 Gastro-esophageal reflux disease without esophagitis; I48.91 Unspecified atrial fibrillation; J44.9 Chronic obstructive pulmonary disease, unspecified; I27.20 Pulmonary hypertension, unspecified; I25.2 Old myocardial infarction; E78.5 Hyperlipidemia, unspecified; D64.9 Anemia, unspecified; K42.9 Umbilical hernia without obstruction or gangrene; D69.6 Thrombocytopenia, unspecified; R19.7 Diarrhea, unspecified; I48.0 Paroxysmal atrial fibrillation; R74.8 Abnormal levels of other serum enzymes; E88.09 Other disorders of plasma-protein metabolism, not elsewhere classified; F41.9 Anxiety disorder, unspecified; E07.81 Sick-euthyroid syndrome; R91.1 Solitary pulmonary nodule; R91.8 Other nonspecific abnormal finding of lung field; F41.0 Panic disorder [episodic paroxysmal anxiety]; K57.90 Diverticulosis of intestine, part unspecified, without perforation or abscess without bleeding; K40.90 Unilateral inguinal hernia, without obstruction or gangrene, not specified as recurrent; Z87.442 Personal history of urinary calculi; Z99.81 Dependence on supplemental oxygen; Z87.891 Personal history of nicotine dependence
CPT/HCPCS: 36415; 36430; 36569; 36600; 71045-TC-FY; 71260-TC; 74177-TC; 77001-TC-FY; 80048; 80053; 81003; 81015; 82272; 82375; 82378; 82550; 82607; 82728; 82746; 82803; 82962; 83036; 83050; 83540; 83550; 83605; 83735; 84100; 84155; 84165; 84439; 84443; 84445; 84484; 85025; 85027; 85044; 85384; 85610; 85651; 85730; 86140; 86376; 86800; 86850; 86900; 86901; 86922; 87040; 87086; 87186; 93005; 93010; 93306-TC; 93970-TC; 94640; 94660; 97116-GP; 97161-GP; 99285-25; C1751; J0131; J0878; J1644; J7030; P9038; P9058

== ENCOUNTER 2018-04-23 10:39 | Inpatient (IN) | payer BC, OTHER ==
--- NOTE | 2018-04-23 10:54 | PDOC ---
History of Present Illness - General Chief Complaint: Nasal Bleeding Stated Complaint: EPISTAXIS, HYPOTENSION Past History - Past Medical History Allergies/Adverse Reactions: Allergies Allergy/AdvReac Type Severity Reaction Status Date / Time moxifloxacin HCl Allergy Severe Verified 03/10/18 02:58 [From Avelox] aclidinium bromide Allergy Verified 03/10/18 02:58 [From Tudorza Pressair] shellfish derived Allergy Verified 03/10/18 02:58 Home Medications: Ambulatory Orders Arformoterol Tartrate [Brovana] 15 mcg IH BID 02/08/14 Alprazolam [Xanax] 0.5 mg PO Q12H PRN tablet MDD 2 04/07/18 Amino Acids/Protein Hydrolys [Prosource No Carb Liquid Pkt] 30 ml PO BID@0800, 1730 packet 04/07/18 Atorvastatin Ca [Lipitor] 10 mg PO HS tablet 04/07/18 Bisacodyl [Bisacodyl -] 5 mg PO DAILY PRN tablet. 04/07/18 Budesonide/Formeterol Fumarate [SYMBICORT 160/4.5mcg -] 2 puff IH BID inhaler 04/07/18 Ceftaroline Fosamil Acetate [Teflaro (Restricted To Id)] 600 mg IVPB Q8H-IV vial 04/07/18 Daptomycin [Cubicin (Restricted To Id) -] 500 mg IVPB DAILY vial 04/07/18 Diltiazem Cd [Cardizem Cd -] 120 mg PO DAILY cap.cd.24h 04/07/18 Escitalopram Oxalate [Lexapro -] 20 mg PO DAILY tablet 04/07/18 Ferrous Sulfate [Feosol] 325 mg PO DAILY ud 04/07/18 Insulin Sliding Scale [Novolog Vial Sliding Scale -] 1 vial SQ ACHS units 04/07 Lactobacillus Acidophilus [Bacid -] 1 tab PO DAILY tab 04/07/18 Nystatin Oral Suspension - [Nystatin Oral Susp 361981 Units/5 ML -] 500,000 units PO Q6HPO cup 04/07/18 Pantoprazole Sodium [Protonix -] 40 mg PO BID tablet.ec 04/07/18 Picc Line Flush [Picc Line Flush -] 8 ml IVPUSH PRN PRN ml 04/07/18 Polyethylene Glycol 3350 [Miralax 119 gm Btl -] 17 gm PO DAILY bottle 04/07/18 Sitagliptin Phosphate [Januvia -] 100 mg PO DAILY@0700 ud 04/07/18 Tamsulosin HCl [Flomax -] 0.4 mg PO DAILY@0830 cap.er.24h 04/07/18 Tiotropium [place] [Spiriva Respimat] 2 puff IH DAILY inhaler 04/07/18 Valsartan [Diovan] 40 mg PO DAILY tablet 04/07/18 predniSONE [Deltasone -] 20 mg PO BID tablet 04/07/18 Anemia: Yes (FROM BLEEDING) Asthma: No Cancer: No Cardiac Disorders: Yes (AL, CHF) CVA: No COPD: Yes (o2 at home) CHF: Yes Dementia: No Diabetes: No GI Disorders: Yes (umbilical hernia x 2) Disorders: Yes (UTI) HTN: Yes (FLUCTUATE) Hypercholesterolemia: Yes Kidney Stones: Yes Seizures: No Thyroid Disease: No - Surgical History Abdominal Surgery: No Appendectomy: No Cardiac Surgery: No Cholecystectomy: No Lung Surgery: No Neurologic Surgery: No Orthopedic Surgery: No - Suicide/Smoking/Psychosocial Hx Smoking Status: No Smoking History: Former smoker Have you smoked in the past 12 months: No Number of Cigarettes Smoked Daily: 40 If you are a former smoker, when did you quit?: quit 10 years ago Hx Alcohol Use: Yes (a couple beers a month) Drug/Substance Use Hx: No Substance Use Type: None Hx Substance Use Treatment: No *DC/Admit/Observation/Transfer - Referrals Referrals: Mony Leslie MD [Primary Care Provider] - - Patient Instructions - Post Discharge Activity
--- NOTE | 2018-04-23 11:04 | PDOC ---
Attending Attestation - Medical Decision Making 04/23/18 12:[address] Leslie. 04/23/18 12:[address] Ely, who is covering for Dr. Leslie, 04/23/18 12:[address] Mccullough. 04/23/18 13:[address] Ely. 04/23/18 13:[address] Vanegas. <Cecy Gupta - Last Filed: 04/23/18 13:29> - Resident Resident Name: Macie Hall - ED Attending Attestation I have performed the following: I have examined & evaluated the patient, The case was reviewed & discussed with the resident, I agree w/resident's findings & plan, Exceptions are as noted - HPI HPI: 04/23/18 11:21 Mr Quintanilla s a 67 yo M presenting to the ER with a complaint of epistaxis and hypotension He has a h/o COPD on home oxygen, Interstitial lung disease, HTN, HTN, HLD, CHF , diastolic LV dysfunction, ME, CAD, GERD, hiatal hernia Recent admission for MRSA bacteremia, currently receiving Daptomycin via Right UE PICC line, recent dx of Afib with RVR on Exiquis Pt states that he has had epistaxis since 3am Blood is pooling in the back of his throat No shortness of breath No pain - Physicial Exam PE: 04/23/18 12:09 Pt is awake and alert He is tachypneic, breathing with accessory muscles and pursed lips Tachycardiac, regular Rhoncherous breath sounds, no wheezing No abd tenderness no lower extremity edema No evidence of cellulitis, buttock, stage 2 decubitus - Critical Care Time Total Critical Care Time: 60 Critical Care Statement: The care of this patient involved high complexity decision making to prevent further life threatening deterioration of the patient 's condition and/or to evaluate & treat vital organ system(s) failure or risk of failure. - Medical Decision Making 04/23/18 11:[address] Huntley in the office He states pt should be packed No clear indication of where bleeding is coming from, it can not be visualized at kesselbach's plexus Sepsis orderset ordered as pt has temp of 100.9 NS bolus ordered EKG - Sinus tachycardia rate of 121 bpm, axis nml intervals nml, no st elevation or depression, RBBB (incomplete) 04/23/18 11:56 Left nare packed Pt reports decreased bleeding Oxygen mask applied with stable O2 saturation Labs pending CXR - 04/23/18 12:08 Pt swished and spit No bleeding noted CXR being repeated Will order Daptomycin (he was not given this today prior to leaving the shelter) 04/23/18 12:09 04/23/18 12:11 04/23/18 12:38 Laboratory Tests 04/06/18 04/23/18 05:30 11:30 WBC 6.3 6.4 Hgb 10.6 L 8.7 L Hct 30.5 L 25.5 L D Plt Count 80 L D 74 L 04/23/18 12:42 Laboratory Tests 04/23/18 04/23/18 11:30 11:30 PT with INR 20.00 H INR 1.69 H VBG pH 7.34 POC VBG pCO2 64.6 H* D POC VBG pO2 33.1 D Mixed VBG HCO3 34.2 H 04/23/18 12:46 Hgb down from 10 ---> 8.7 Will do 1 unit PRBC 04/23/18 12:49 Laboratory Tests 04/06/18 04/23/18 05:30 11:30 Sodium 140 Potassium 4.4 Chloride 97 L Carbon Dioxide 35 H BUN 19 H 31 H Creatinine 0.4 L 0.5 L Random Glucose 140 H 108 H Troponin I 0.02 04/23/18 13:12 After 1 L NS, BP 102/50s 04/23/18 15:25 BP between 90s and [address] Mccullough bedside to see this patient Pt fluid responsive, anticipate drop in hgb 1U PRBCs ordered (no additional bleeding seen) Will do ctrl line Will start vasopressors 04/23/18 17:40 will cancel PRBCs Pt BP after ctrl line 119/60s PICC line will need to be removed <Mary Quintero - Last Filed: 04/28/18 07:54>
[2018-04-23] MEDS ORDERED: ACETAMINOPHEN 1000 MG/100 ML VIAL (NON FORMULARY) IVPB ONE (11:18)
--- NOTE | 2018-04-23 11:25 | PDOC ---
History of Present Illness - General Chief Complaint: Nasal Bleeding Stated Complaint: EPISTAXIS, HYPOTENSION - History of Present Illness Initial Comments: Pablito Veloz is a 67yo man with a PMH of a-fib on anticoagulation, COPD on 3L home O2, ILD, pulmonary HTN, HTN, HLD, CHF, CAD s/p OK, panic attack, and recurrent epistaxis who presents from [facility] with continued epistaxis since about 3am. He has a knwn history of epistaxis with a previous admission last year during which he required blood transfusions. He has been seen by ENT and was noted to pick his nose, causing the bleeding. He does admit to doing this today. Per Mr Veloz, he does have frequent nosebleeds, most likely secondary to picking his nose, and often removes blood clots from his nose. He has no other new complaints thi smorning, though he is very anxious and reports feeling occasionally short of breath. Past History - Past Medical History Allergies/Adverse Reactions: Allergies Allergy/AdvReac Type Severity Reaction Status Date / Time moxifloxacin HCl Allergy Severe Verified 04/23/18 11:13 [From Avelox] aclidinium bromide Allergy Verified 04/23/18 11:13 [From Tudorza Pressair] shellfish derived Allergy Verified 04/23/18 11:13 Home Medications: Ambulatory Orders Arformoterol Tartrate [Brovana] 15 mcg IH BID 02/08/14 Alprazolam [Xanax] 0.5 mg PO Q12H PRN tablet MDD 2 04/07/18 Amino Acids/Protein Hydrolys [Prosource No Carb Liquid Pkt] 30 ml PO BID@0800, 1730 packet 04/07/18 Atorvastatin Ca [Lipitor] 10 mg PO HS tablet 04/07/18 Bisacodyl [Bisacodyl -] 5 mg PO DAILY PRN tablet. 04/07/18 Budesonide/Formeterol Fumarate [SYMBICORT 160/4.5mcg -] 2 puff IH BID inhaler 04/07/18 Ceftaroline Fosamil Acetate [Teflaro (Restricted To Id)] 600 mg IVPB Q8H-IV vial 04/07/18 Daptomycin [Cubicin (Restricted To Id) -] 500 mg IVPB DAILY vial 04/07/18 Diltiazem Cd [Cardizem Cd -] 120 mg PO DAILY cap.cd.24h 04/07/18 Escitalopram Oxalate [Lexapro -] 20 mg PO DAILY tablet 04/07/18 Ferrous Sulfate [Feosol] 325 mg PO DAILY ud 04/07/18 Insulin Sliding Scale [Novolog Vial Sliding Scale -] 1 vial SQ ACHS units 04/07 Lactobacillus Acidophilus [Bacid -] 1 tab PO DAILY tab 04/07/18 Pantoprazole Sodium [Protonix -] 40 mg PO BID tablet.ec 04/07/18 Picc Line Flush [Picc Line Flush -] 8 ml IVPUSH PRN PRN ml 04/07/18 Polyethylene Glycol 3350 [Miralax 119 gm Btl -] 17 gm PO DAILY bottle 04/07/18 Sitagliptin Phosphate [Januvia -] 100 mg PO DAILY@0700 ud 04/07/18 Tamsulosin HCl [Flomax -] 0.4 mg PO DAILY@0830 cap.er.24h 04/07/18 Tiotropium [place] [Spiriva Respimat] 2 puff IH DAILY inhaler 04/07/18 Valsartan [Diovan] 40 mg PO DAILY tablet 04/07/18 predniSONE [Deltasone -] 20 mg PO BID tablet 04/07/18 Acetaminophen [Tylenol] 325 mg PO Q6H PRN 04/23/18 Albuterol 0.083% Nebulizer [place] [Ventolin 0.083%] 1 neb NEB Q4H 04/23/18 Apixaban [Eliquis -] 5 mg PO DAILY 04/23/18 Anemia: Yes (FROM BLEEDING) Asthma: No Cancer: No Cardiac Disorders: Yes (OK, CHF) CVA: No COPD: Yes (o2 at home) CHF: Yes Dementia: No Diabetes: No GI Disorders: Yes (umbilical hernia x 2) Disorders: Yes (UTI) HTN: Yes (FLUCTUATE) Hypercholesterolemia: Yes Kidney Stones: Yes Seizures: No Thyroid Disease: No - Surgical History Abdominal Surgery: No Appendectomy: No Cardiac Surgery: No Cholecystectomy: No Lung Surgery: No Neurologic Surgery: No Orthopedic Surgery: No - Suicide/Smoking/Psychosocial Hx Smoking Status: No Smoking History: Former smoker Have you smoked in the past 12 months: No Number of Cigarettes Smoked Daily: 40 If you are a former smoker, when did you quit?: quit 10 years ago Information on smoking cessation initiated: No Hx Alcohol Use: Yes (a couple beers a month) Drug/Substance Use Hx: No Substance Use Type: None Hx Substance Use Treatment: No Review of Systems - Review of Systems Comments:: General: No fevers, no chills, +weight loss, no malaise HEENT: No changes in vision, no changes in hearing. +frequent nosebleeds CV: No chest pain, no palpitations, no LE edema. +afib, CAD Pulm: +frequent SOB, +cough GI: No nausea or vomiting, no change in bowel habits, no melena : No frequency, no urgency, no dysuria Musc: No back pain, no joint swelling, no recent injury Skin: +sacral ulcer. No rash Endo: No excessive thirst, no heat/cold intolerance Heme: No unusual bruising or bleeding, no swollen glands. +fully anticoagulated Neuro: No syncope, no numbness/tingling, no focal weakness Vasc: No claudication Psych: No recent change in mood, no SI or HI *Physical Exam - Vital Signs Last Vital Signs Temp Pulse Resp BP Pulse Ox 100.9 F H 122 H 23 H 96/60 100 04/23/18 10:39 04/23/18 10:39 04/23/18 10:39 04/23/18 10:39 04/23/18 10:39 - Physical Exam Comments: General: Tachycardic, hypotensive, uncomfortable. HEENT: PERRL, EOMI. NC in place. No bleeding from external nares. Pharynx with visible bright red blood, dried blood around mouth and on dentures. Dried blood on lips. Cards: Tachy, no murmur noted, irregularity not appreciated 2/2 rate Pulm: Tachypnic, shallow breathing. Appears SOB Abd: Soft, nontender, nondistended : No CVA tenderness. Diapered Rectal: Large sacral ulcer, mostly stage 1 with erythematous skin. Small areas of stage 2-3 with open sores but not past subQ. White ointment/paste over ulcer. Slight bleeding from open areas with staining of diaper, no active bleeding. Ext: Atraumatic. No LE edema. Vasc: Extremities WWP. Neuro: A&Ox3, CN grossly intact, normal speech, motor/sensory grossly intact and symmetric Psych: Mood appropriate to situation ED Treatment Course - LABORATORY CBC & Chemistry Diagram: 04/23/18 11:30 04/23/18 11:30 Medical Decision Making - Medical Decision Making Pablito Veloz is a 67yo man with a complicated medical history who presents from [facility] with what appears to be posterior epistaxis that started around 3am. He had a previous admission one year ago for epistaxis requiring transfusion. He is currently tachycardic and hypotensive with bright red blood visible in the martha/nasopharynx but no bleeding from the nares. 04/23/18 11:24 - Spoke to Dr Canales. Recommending nasal packing as a first measure - Packing placed in left nare. Mr Veloz was unable to initially tolerate placement of packing into left nare as he uses O2 by NC at home and felt SOB. After 2-3 minutes, a venti mask was placed and by that point there was only dried blood appreciated in the martha-nasopharynx with a large clot visible. - Hypotensive to 90s/50s, tachycardic to 120's. Suspect that he may need a transfusion - CBC, CMP, UA, type and screen, blood cultures, lactate, coags, CXR, EKG, trop ordered per Dr Quintero. 04/23/18 12:44 - Hgb 8.7 from previous 10.6. However, given acuity of bleeding and continued abnormal vitals, this may not reflect his current status accurately. May need repeat h/h after receiving IVF - Has only received 0.5L IVF due to non-functioning IV. Attached fluids to PICC , now running. - Rectal temp 100.9. Spoke to Dr Vanegas regarding fever while on abx for MRSA bacteremia during last admission. Per patient, has been receiving daptomycin as prescribed. Dr Vanegas will order antibiotics and will f/u results - Call to Dr Leslie for admisison. 04/23/18 13:45 - Dr Ely at bedside, covering for Dr Leslie. Will admit. Initially suggested telemetry. - Due to continued hypotension will page ICU for evaluation 04/23/18 14:19 - HR now 104. BP rechecked 84/50's. Has still only received less than 1L IVF - Dr Roque at bedside. Reports that pt is often hypotensive. - Call placed to ICU for evaluation. Dr Quintero spoke to Dr Lopez. 04/23/18 16:33 - Per chart review, Mr Veloz has low BP generally but it usually runs around 110 -120 during his recent admisison - Seen by Dr Mccullough. Recommending removal of PICC line given fever - Central line placed by Dr Quintero and Dr Valdovinos to start pressors as BP continues to be in the 80's - Mr Veloz was accepted for ICU admission and seen by the ICU team at bedside. Seen and discussed with Dr Veloz. Macie Hall PGY1 *DC/Admit/Observation/Transfer Diagnosis at time of Disposition: Epistaxis, Hypotension, Fever, Tachycardia - Discharge Dispostion Decision to Admit order: Yes - Referrals - Patient Instructions - Post Discharge Activity
[2018-04-23 12:08] LABS: BASO % 0.1 % (0-2.0); EOS % 0.2 % (0-4.5); HEMATOCRIT 25.5 % (35.4-49); HEMOGLOBIN 8.7 GM/dL (11.7-16.9); LYMPH % 2.6 % (8-40); MCHC 34.3 g/dl (32.0-35.9); MEAN CELL VOLUME 93.2 fl (80-96); MEAN PLT VOLUME 9.5 fl (7.5-11.1); MONO % 5.2 % (3.8-10.2); NEUT % 91.9 % (42.8-82.8); PLATELET COUNT 74 K/MM3 (134-434); RBC 2.73 M/mm3 (4.00-5.60); RDW 16.3 % (11.9-15.9); WHITE BLOOD COUNT 6.4 K/mm3 (4.0-10.0)
[2018-04-23 12:09] LABS: VENOUS PH 7.34 (7.32-7.42); VENOUS PO2 33.1 mmHg (28-48)
[2018-04-23 12:15] LABS: VENOUS PC02 64.6 mmHg (38-52)
[2018-04-23] MEDS ORDERED: SODIUM CHLORIDE 0.9% 1000 ML INFUS.BAG IV SCH (12:15)
[2018-04-23 12:34] LABS: INR 1.69 (0.83-1.09)
[2018-04-23 12:45] LABS: ALBUMIN 2.3 g/dl (3.4-5.0); ALK PHOS 78 U/L (45-117); ANION GAP 9 MMOL/L (8-16); BILIRUBIN,TOTAL 0.5 mg/dL (0.2-1); BLOOD UREA NITROGEN 31 mg/dL (7-18); CALCIUM 7.8 mg/dL (8.5-10.1); CHLORIDE 97 mmol/L (98-107); CO2 35 mmol/L (21-32); CREATININE 0.5 mg/dL (0.55-1.3); GLUCOSE,RANDOM 108 mg/dL (74-106); POTASSIUM 4.4 mmol/L (3.5-5.1); SGOT/AST 15 U/L (15-37); SGPT/ALT 51 U/L (13-61); SODIUM 140 mmol/L (136-145); TOT PROT 5.2 g/dl (6.4-8.2)
[2018-04-23] MEDS ORDERED: ACETAMINOPHEN INJECTION 100 ML IVPB ONE (13:05)
--- NOTE | 2018-04-23 13:27 | HP ---
Admitting History and Physical - Primary Care Physician PCP: Mony Leslie - Admission Chief Complaint: came in for epistaxis History of Present Illness: Pablito Veloz is a 67yo man with a PMH of a-fib on anticoagulation, COPD on 3L home O2, ILD, pulmonary HTN, HTN, HLD, CHF, CAD s/p PR, panic attack, and recurrent epistaxis who presents from [facility] with continued epistaxis since about 3am. He has a known history of epistaxis with a previous admission last year during which he required blood transfusions. He has been seen by ENT and was noted to pick his nose, causing the bleeding. He does admit to doing this today. h/h 8.7 patient getting ivf nasal packing done temp 100.9 History Source: Patient, Medical Record - Past Medical History Cardiovascular: Yes: AFIB (paroxysmal), CAD, CHF (end diastlic), HTN, Hyperlipdemia, Pulmonary Hypertension Pulmonary: Yes: COPD (home oxygen), O2 Dependent, Previously Intubated ( intubated one time several years ago for respiratory failure), Other ( Interstitial lung disease and lung mass) Gastrointestinal: Yes: Diverticulosis, GERD, Other (descending colon polyp excised 08/11) Renal/: Yes: Renal Calculi, UTI Infectious Disease: Yes: MRSA (current bacteremia), Other (known history of MAC , 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) Psych: Yes: Anxiety Endocrine: Yes: Hypothyroidism (euthyroid sick syndrome) - Past Surgical History Past Surgical History: Yes: None - Smoking History Smoking history: Former smoker Have you smoked in the past 12 months: No Aproximately how many cigarettes per day: 40 If you are a former smoker, when did you quit?: quit 10 years ago - Alcohol/Substance Use Hx Alcohol Use: Yes (a couple beers a month) History of Substance Use: reports: None - Social History ADL: Independent 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 History of Recent Travel: No Home Medications - Allergies Allergies/Adverse Reactions: Allergies Allergy/AdvReac Type Severity Reaction Status Date / Time moxifloxacin HCl Allergy Severe Verified 04/23/18 11:13 [From Avelox] aclidinium bromide Allergy Verified 04/23/18 11:13 [From Tudorza Pressair] shellfish derived Allergy Verified 04/23/18 11:13 - Home Medications Home Medications: Ambulatory Orders Arformoterol Tartrate [Brovana] 15 mcg IH BID 02/08/14 Alprazolam [Xanax] 0.5 mg PO Q12H PRN tablet MDD 2 04/07/18 Amino Acids/Protein Hydrolys [Prosource No Carb Liquid Pkt] 30 ml PO BID@0800, 1730 packet 04/07/18 Atorvastatin Ca [Lipitor] 10 mg PO HS tablet 04/07/18 Bisacodyl [Bisacodyl -] 5 mg PO DAILY PRN tablet.dr 04/07/18 Budesonide/Formeterol Fumarate [SYMBICORT 160/4.5mcg -] 2 puff IH BID inhaler 04/07/18 Ceftaroline Fosamil Acetate [Teflaro (Restricted To Id)] 600 mg IVPB Q8H-IV vial 04/07/18 Daptomycin [Cubicin (Restricted To Id) -] 500 mg IVPB DAILY vial 04/07/18 Diltiazem Cd [Cardizem Cd -] 120 mg PO DAILY cap.cd.24h 04/07/18 Escitalopram Oxalate [Lexapro -] 20 mg PO DAILY tablet 04/07/18 Ferrous Sulfate [Feosol] 325 mg PO DAILY ud 04/07/18 Insulin Sliding Scale [Novolog Vial Sliding Scale -] 1 vial SQ ACHS units 04/07 Lactobacillus Acidophilus [Bacid -] 1 tab PO DAILY tab 04/07/18 Nystatin Oral Suspension - [Nystatin Oral Susp 990481 Units/5 ML -] 500,000 units PO Q6HPO cup 04/07/18 Pantoprazole Sodium [Protonix -] 40 mg PO BID tablet.ec 04/07/18 Picc Line Flush [Picc Line Flush -] 8 ml IVPUSH PRN PRN ml 04/07/18 Polyethylene Glycol 3350 [Miralax 119 gm Btl -] 17 gm PO DAILY bottle 04/07/18 Sitagliptin Phosphate [Januvia -] 100 mg PO DAILY@0700 ud 04/07/18 Tamsulosin HCl [Flomax -] 0.4 mg PO DAILY@0830 cap.er.24h 04/07/18 Tiotropium [place] [Spiriva Respimat] 2 puff IH DAILY inhaler 04/07/18 Valsartan [Diovan] 40 mg PO DAILY tablet 04/07/18 predniSONE [Deltasone -] 20 mg PO BID tablet 04/07/18 Family Disease History - Family Disease History Family Disease History: Heart Disease: Father ( 67 of [place]), CA: Mother ( 67 colon cancer) Review of Systems - Review of Systems HENT: reports: Epistaxis Physical Examination Vital Signs: Vital Signs Temperature 100.9 F H 04/23/18 10:39 Pulse Rate 122 H 04/23/18 10:39 Respiratory Rate 23 H 04/23/18 10:39 Blood Pressure 96/60 04/23/18 10:39 O2 Sat by Pulse Oximetry (%) 100 04/23/18 10:39 Constitutional: Yes: Anxious, Thin Cardiovascular: Yes: Tachycardia, Pulse Irregular, S1, S2 Respiratory: Yes: Diminished Gastrointestinal: Yes: Normal Bowel Sounds, Soft Edema: No Integumentary: Yes: Other (picc line) Labs: CBC, BMP 04/23/18 11:30 04/23/18 11:30 Problem List - Problems (1) Fever Assessment/Plan: cultures ID consult isolation for MRSA Code(s): R50.9 - FEVER, UNSPECIFIED (2) Hypotension Assessment/Plan: ivf antonio get ICU eval for [id number] cardiology consult Code(s): I95.9 - HYPOTENSION, UNSPECIFIED (3) Nasal hemorrhage Assessment/Plan: ENT consult nasal packing monitor h/h prbc Code(s): R04.0 - EPISTAXIS (4) Tachycardia Assessment/Plan: cardiology consult icu eval Code(s): R00.0 - TACHYCARDIA, UNSPECIFIED (5) Anxiety Assessment/Plan: xanax lexapro 20mg Code(s): F41.9 - ANXIETY DISORDER, UNSPECIFIED (6) COPD (chronic obstructive pulmonary disease) Assessment/Plan: pulm oxygen bronchodilators Code(s): J44.9 - CHRONIC OBSTRUCTIVE PULMONARY DISEASE, UNSPECIFIED Qualifiers: COPD type: unspecified COPD Qualified Code(s): J44.9 - Chronic obstructive pulmonary disease, unspecified (7) BPH (benign prostatic hypertrophy) Assessment/Plan: flomax Code(s): N40.0 - BENIGN PROSTATIC HYPERPLASIA WITHOUT LOWER URINRY TRACT SYMP (8) MRSA bacteremia Assessment/Plan: day of daptomycin via picc line isolation ID consult - antonio order dapto dose Code(s): R78.81 - BACTEREMIA (9) Paroxysmal A-fib Assessment/Plan: icu eval cardizem hold for now- icu eval for now hold AC Code(s): I48.0 - PAROXYSMAL ATRIAL FIBRILLATION
[2018-04-23] MEDS ORDERED: ALPRAZolam 0.25 MG TABLET PO PRN (13:34)
[2018-04-23 13:35] LABS: URINE APPEARANCE SLCLOUDY; URINE BILIRUBIN NEGATIVE (<2.0 mg/dL); URINE COLOR YELLOW; URINE GLUCOSE (UA) NEGATIVE (NEGATIVE); URINE KETONE NEGATIVE (NEGATIVE); URINE LEUK ESTERASE 1+ (NEGATIVE); URINE NITRITE NEGATIVE (NEGATIVE); URINE PROTEIN NEGATIVE (NEGATIVE); URINE UROBILINOGEN NEGATIVE mg/dL (0.2-1.0)
[2018-04-23 14:14] LABS: CALCIUM OXALATE CRYSTALS RARE /hpf (NONE SEEN); EPI CELLS RARE /HPF (FEW); URINE BACTERIA RARE /hpf (NONE SEEN); URINE HYALINE CAST 1 /lpf; URINE MUCUS FEW; YEAST RARE
[2018-04-23] MEDS ORDERED: SODIUM CHLORIDE 1,000 ML IV STA (15:04)
--- NOTE | 2018-04-23 15:19 | CON.ID ---
Consult Consult Specialty:: infectious disease Referred by:: dr meadows Reason for Consultation:: fever, hypotension - History of Present Illness Chief Complaint: epistaxis since earlier this am History of Present Illness: 67 yo man endstage COPD-recently hospitalized for MRSA bacteremia 03/24 to 04/07 - he was discharged on 04/07- on daptomycin. THe [place] called me [place] on Thursday night to say her father had fever to 103- I advised ER evaluation. The charge nurse from the [facility] called me Thursday morning to say he was having fever- I once again explained that I could not manage his care at the [facility] and that they could send him to the ER. This am at 3 am he started having a brisk nosebleed- he called his who went to see him later in the morning and he was transferred to the hospital. he had nasal packing placed he remains hypotensive and alert with low grade temp reports no further fevers at [facility] after Thursday night reports frequent urinarion- he is not on diuretics per his med list he also is having daily loose stools - once daily no abdominal pain no chest pain no discomfort at picc line site - History Source History Provided By: Patient, Family Member Limitations to Obtaining History: No Limitations - Past Medical History Cardio/Vascular: Yes: AFIB (paroxysmal), CAD, CHF (end diastlic), HTN, Hyperlipdemia, Pulmonary Hypertension Pulmonary: Yes: COPD (home oxygen), O2 Dependent, Previously Intubated ( intubated one time several years ago for respiratory failure), Other ( Interstitial lung disease and lung mass) Gastrointestinal: Yes: Diverticulosis, GERD, Other (descending colon polyp excised 08/11) Renal/: Yes: Renal Calculi, UTI Infectious Disease: Yes: MRSA (current bacteremia), Other (known history of MAC , 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 large left inguinal hernia and ventral hernia. 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 History of Recent Travel: No Home Medications - Allergies Allergies/Adverse Reactions: Allergies Allergy/AdvReac Type Severity Reaction Status Date / Time moxifloxacin HCl Allergy Severe Verified 04/23/18 11:13 [From Avelox] aclidinium bromide Allergy Verified 04/23/18 11:13 [From Tudorza Pressair] shellfish derived Allergy Verified 04/23/18 11:13 - Home Medications Home Medications: Ambulatory Orders RX: Arformoterol Tartrate [Brovana] 15 mcg IH BID 02/08/14 RX: Alprazolam [Xanax] 0.5 mg PO Q12H PRN tablet MDD 2 04/07/18 RX: Amino Acids/Protein Hydrolys [Prosource No Carb Liquid Pkt] 30 ml PO BID@ 0800,1730 packet 04/07/18 RX: Atorvastatin Ca [Lipitor] 10 mg PO HS tablet 04/07/18 RX: Bisacodyl [Bisacodyl -] 5 mg PO DAILY PRN tablet. 04/07/18 RX: Budesonide/Formeterol Fumarate [SYMBICORT 160/4.5mcg -] 2 puff IH BID inhaler 04/07/18 RX: Ceftaroline Fosamil Acetate [Teflaro (Restricted To Id)] 600 mg IVPB Q8H-IV vial 04/07/18 RX: Daptomycin [Cubicin (Restricted To Id) -] 500 mg IVPB DAILY vial 04/07/18 RX: Diltiazem Cd [Cardizem Cd -] 120 mg PO DAILY cap.cd.24h 04/07/18 RX: Escitalopram Oxalate [Lexapro -] 20 mg PO DAILY tablet 04/07/18 RX: Ferrous Sulfate [Feosol] 325 mg PO DAILY ud 04/07/18 RX: Insulin Sliding Scale [Novolog Vial Sliding Scale -] 1 vial SQ ACHS units 04/07/18 RX: Lactobacillus Acidophilus [Bacid -] 1 tab PO DAILY tab 04/07/18 RX: Pantoprazole Sodium [Protonix -] 40 mg PO BID tablet.ec 04/07/18 RX: Picc Line Flush [Picc Line Flush -] 8 ml IVPUSH PRN PRN ml 04/07/18 RX: Polyethylene Glycol 3350 [Miralax 119 gm Btl -] 17 gm PO DAILY bottle 04/07 RX: Sitagliptin Phosphate [Januvia -] 100 mg PO DAILY@0700 ud 04/07/18 RX: Tamsulosin HCl [Flomax -] 0.4 mg PO DAILY@0830 cap.er.24h 04/07/18 RX: Tiotropium [place] [Spiriva Respimat] 2 puff IH DAILY inhaler 04/07/18 RX: Valsartan [Diovan] 40 mg PO DAILY tablet 04/07/18 RX: predniSONE [Deltasone -] 20 mg PO BID tablet 04/07/18 Acetaminophen [Tylenol] 325 mg PO Q6H PRN 04/23/18 Albuterol 0.083% Nebulizer [place] [Ventolin 0.083%] 1 neb NEB Q4H 04/23/18 Apixaban [Eliquis -] 5 mg PO BID 04/23/18 Apixaban [Eliquis -] 5 mg PO DAILY 04/23/18 Family Disease History - Family Disease History Family Disease History: Heart Disease: Father ( 67 of [place]), CA: Mother ( 67 colon cancer) Review of Systems - Review of Systems Constitutional: reports: No Symptoms Eyes: reports: No Symptoms HENT: reports: Epistaxis Neck: reports: No Symptoms Cardiovascular: reports: No Symptoms Respiratory: reports: No Symptoms Gastrointestinal: reports: Diarrhea Genitourinary: reports: Frequency Physical Exam Vital Signs: Vital Signs Temperature 100.9 F H 04/23/18 10:39 Pulse Rate 122 H 04/23/18 10:39 Respiratory Rate 23 H 04/23/18 10:39 Blood Pressure 96/60 04/23/18 10:39 O2 Sat by Pulse Oximetry (%) 100 04/23/18 10:39 Constitutional: Yes: Calm, Thin Eyes: Yes: Conjunctiva Clear HENT: Yes: Atraumatic, Normocephalic, Other (dried blood in mouth dry oral mucosa, left nasal packing no conjunctival hemorrhages). No: Thrush Neck: Yes: Supple Cardiovascular: Yes: Tachycardia Respiratory: Yes: Regular, CTA Bilaterally, Diminished Gastrointestinal: Yes: Normal Bowel Sounds, Soft. No: Tenderness Edema: No Integumentary: Yes: Other (picc line site no erythema or drainage) Wound/Incision: Yes: Other (sacral area- smalll abrasion) Psychiatric: Yes: Alert, Oriented Labs: CBC, BMP 04/23/18 11:30 04/23/18 11:30 cultures pending Imaging - Results Chest X-ray: Report Reviewed, Image Reviewed (no change from prior films, no acute infiltrate) Problem List - Problems (1) Sepsis Code(s): A41.9 - SEPSIS, UNSPECIFIED ORGANISM (2) Epistaxis, recurrent Code(s): R04.0 - EPISTAXIS (3) MRSA bacteremia Code(s): R78.81 - BACTEREMIA Assessment/Plan epistaxis sepsis with hypotension and lactic acidosis- MRSA bacteremia-on 6 week treatment for possible endocarditis ICU evaluation pending spoke with ICU resident will continue daptomycin, add meropenem cover for UTI stool cdiff if other iv access can be placed, please remove picc line d/w at bedside at length over 40 minutes spent in the care of this critically ill icu patient
--- NOTE | 2018-04-23 15:30 | CONSULT ---
Consultation: REQUESTING PROVIDER: CONSULT REQUEST: We have been asked to medically evaluate this patient for septic shock. HISTORY OF PRESENT ILLNESS: Patient is a 67 yo M with history of COPD on home oxygen, Interstitial lung disease, HTN, HLD, CHF, diastolic LV dysfunction, NM, CAD, GERD, hiatal hernia, recent dx of Afib with RVR on Eliquis, presenting to the ER with a complaint of epistaxis, hypotension and tachycardia. Pt was recently admitted for MRSA bacteremia, currently receiving Daptomycin via Right UE PICC line REVIEW OF SYSTEMS: CONSTITUTIONAL: Absent: fever, chills, diaphoresis, generalized weakness, malaise, loss of appetite, weight change HEENT: + epistaxis Absent: throat pain, throat swelling, difficulty swallowing, mouth swelling, ear pain, eye pain, visual changes CARDIOVASCULAR: Absent: chest pain, syncope, palpitations, irregular heart rate, lightheadedness , peripheral edema RESPIRATORY: chronic dyspnea with exertion, Absent: cough, shortness of breath, orthopnea, wheezing, stridor, hemoptysis GASTROINTESTINAL: Absent: abdominal pain, abdominal distension, nausea, vomiting, diarrhea, constipation, melena, hematochezia GENITOURINARY: Absent: dysuria, frequency, urgency, hesitancy, hematuria, flank pain, genital pain MUSCULOSKELETAL: Absent: myalgia, arthralgia, joint swelling, back pain, neck pain SKIN: Absent: rash, itching, pallor HEMATOLOGIC/IMMUNOLOGIC: easy bleeding Absent: easy bruising, lymphadenopathy, frequent infections ENDOCRINE: Absent: unexplained weight gain, unexplained weight loss, heat intolerance, cold intolerance NEUROLOGIC: Absent: headache, focal weakness or paresthesias, dizziness, unsteady gait, seizure, mental status changes PSYCHIATRIC: Absent: anxiety, depression, suicidal or homicidal ideation, hallucinations. PHYSICAL EXAMINATION Vital Signs - 24 hr 04/23/18 10:39 Temperature 100.9 F H Pulse Rate 122 H Respiratory 23 H Rate Blood Pressure 96/60 O2 Sat by Pulse 100 Oximetry (%) GENERAL: Awake, alert, and fully oriented, on NRB 5L, tired appearing elderly man HEAD: Normal with no signs of trauma. EYES: Pupils equal, round and reactive to light, extraocular movements intact, sclera anicteric, conjunctiva clear. No lid lag. EARS, NOSE, THROAT: + L nares rhinorocket, Moist mucous membranes. NECK: Normal range of motion, supple without lymphadenopathy LUNGS: mildly decreased breath sounds equal, clear to auscultation anteriorly. No wheezes, and no crackles. + abd accessory muscle use. HEART: Regular rate and rhythm, normal S1 and S2 without murmur, rub or gallop. ABDOMEN: Soft, nontender, slightly distended, normoactive bowel sounds, no guarding, no rebound, no masses. No hepatomegaly or splenomegaly. MUSCULOSKELETAL: Normal range of motion at all joints. No bony deformities or tenderness. UPPER EXTREMITIES: 2+ pulses, warm, well-perfused. No cyanosis. No clubbing. Cap refill <2 seconds. No peripheral edema. LOWER EXTREMITIES: 2+ pulses, warm, well-perfused. No calf tenderness. No peripheral edema. NEUROLOGICAL: Cranial nerves II-XII intact. Normal speech. PSYCHIATRIC: Cooperative. Good eye contact. Appropriate mood and affect. SKIN: Warm, dry, normal turgor, no rashes or lesions noted. Laboratory Results - last 24 hr 04/23/18 04/23/18 04/23/18 11:30 11:30 11:30 WBC 6.4 RBC 2.73 L Hgb 8.7 L Hct 25.5 L D MCV 93.2 MCH 32.0 MCHC 34.3 RDW 16.3 H Plt Count 74 L MPV 9.5 Absolute Neuts (auto) 5.9 Neutrophils % 91.9 H Lymphocytes % 2.6 L D Monocytes % 5.2 D Eosinophils % 0.2 D Basophils % 0.1 D Nucleated RBC % 1 H PT with INR 20.00 H INR 1.69 H PTT (Actin FS) VBG pH POC VBG pCO2 POC VBG pO2 Mixed VBG HCO3 Sodium 140 Potassium 4.4 Chloride 97 L Carbon Dioxide 35 H Anion Gap 9 BUN 31 H Creatinine 0.5 L Creat Clearance w eGFR > 60 Random Glucose 108 H Lactic Acid Calcium 7.8 L Total Bilirubin 0.5 AST 15 ALT 51 Alkaline Phosphatase 78 Creatine Kinase 31 Troponin I 0.02 Total Protein 5.2 L Albumin 2.3 L Urine Color Urine Appearance Urine pH Ur Specific [place] Urine Protein Urine Glucose (UA) Urine Ketones Urine Blood Urine Nitrite Urine Bilirubin Urine Urobilinogen Ur Leukocyte Esterase Urine WBC (Auto) Urine RBC (Auto) Ur Epithelial Cells Calcium Oxalate Crystal Urine Bacteria Hyaline Casts Urine Mucus Urine Yeast Blood Type Antibody Screen Crossmatch 04/23/18 04/23/18 04/23/18 11:30 11:30 11:30 WBC RBC Hgb Hct MCV MCH MCHC RDW Plt Count MPV Absolute Neuts (auto) Neutrophils % Lymphocytes % Monocytes % Eosinophils % Basophils % Nucleated RBC % PT with INR INR PTT (Actin FS) VBG pH 7.34 POC VBG pCO2 64.6 H* D POC VBG pO2 33.1 D Mixed VBG HCO3 34.2 H Sodium Potassium Chloride Carbon Dioxide Anion Gap BUN Creatinine Creat Clearance w eGFR Random Glucose Lactic Acid 2.9 H* Calcium Total Bilirubin AST ALT Alkaline Phosphatase Creatine Kinase Troponin I Total Protein Albumin Urine Color Urine Appearance Urine pH Ur Specific [place] Urine Protein Urine Glucose (UA) Urine Ketones Urine Blood Urine Nitrite Urine Bilirubin Urine Urobilinogen Ur Leukocyte Esterase Urine WBC (Auto) Urine RBC (Auto) Ur Epithelial Cells Calcium Oxalate Crystal Urine Bacteria Hyaline Casts Urine Mucus Urine Yeast Blood Type B POSITIVE Antibody Screen Negative Crossmatch See Detail 04/23/18 04/23/18 11:57 13:15 WBC RBC Hgb Hct MCV MCH MCHC RDW Plt Count MPV Absolute Neuts (auto) Neutrophils % Lymphocytes % Monocytes % Eosinophils % Basophils % Nucleated RBC % PT with INR INR PTT (Actin FS) 28.8 VBG pH POC VBG pCO2 POC VBG pO2 Mixed VBG HCO3 Sodium Potassium Chloride Carbon Dioxide Anion Gap BUN Creatinine Creat Clearance w eGFR Random Glucose Lactic Acid Calcium Total Bilirubin AST ALT Alkaline Phosphatase Creatine Kinase Troponin I Total Protein Albumin Urine Color Yellow Urine Appearance Slcloudy Urine pH 5.0 D Ur Specific [place] 1.017 Urine Protein Negative Urine Glucose (UA) Negative Urine Ketones Negative Urine Blood 2+ H Urine Nitrite Negative Urine Bilirubin Negative Urine Urobilinogen Negative Ur Leukocyte Esterase 1+ H Urine WBC (Auto) 24 Urine RBC (Auto) 72 Ur Epithelial Cells Rare Calcium Oxalate Crystal Rare Urine Bacteria Rare Hyaline Casts 1 Urine Mucus Few Urine Yeast Rare Blood Type Antibody Screen Crossmatch Active Medications Generic Name Dose Route Start Last Admin Trade Name Freq PRN Reason Stop Dose Admin Acetaminophen 650 mg 04/23/18 13:40 Tylenol - PO Q6H PRN FEVER Alprazolam 0.5 mg 04/23/18 13:34 Xanax - PO Q12H PRN ANXIETY Arformoterol Tartrate 1 amp 04/23/18 20:00 Brovana (Restricted To Pulmonology/Resp) - NEB RBID TA Atorvastatin Calcium 10 mg 04/23/18 22:00 Lipitor - PO HS [facility] Budesonide/Formoterol Fumarate 2 puff 04/24/18 08:00 Symbicort 160/4.5mcg - IH DAILY@0800 [facility] Chlorhexidine Gluconate 1 applic 04/23/18 22:00 Hibiclens For Decolonization - TP HS [facility] Sodium Chloride 1,000 mls @ 1,000 mls/hr 04/23/18 15:04 04/23/18 15:21 Normal Saline - IV 04/23/18 16:03 1,000 mls/hr ASDIR STA Administration Daptomycin 350 mg/ Sodium 50 mls @ 50 mls/hr 04/23/18 15:30 Chloride IVPB DAILY [facility] Protocol Meropenem 1 gm/ Dextrose 100 mls @ 200 mls/hr 04/23/18 15:30 IVPB Q8H-IV [facility] Mupirocin 1 applic 04/23/18 22:00 Bactroban Ointment (For Decolonization) - NS 04/28/18 21:59 BID TA Sitagliptin Phosphate 100 mg 04/24/18 08:00 Januvia - PO DAILY@0800 [facility] Sodium Chloride 1,715 ml 04/23/18 12:15 04/23/18 12:15 Normal Saline - 30 ml/kg (1715 ml) 1,715 ml IV Administration ONCE TA Tamsulosin HCl 0.4 mg 04/24/18 08:00 Flomax - PO DAILY@0800 [facility] Tiotropium [place] 2 puff 04/24/18 10:00 Spiriva Respimat IH DAILY [facility] ASSESSMENT/PLAN: Patient is a 67 yo M with history of COPD on home oxygen (3L), Interstitial lung disease, HTN, HLD, CHF, diastolic LV dysfunction, NM, CAD, GERD, hiatal hernia, recent dx of Afib with RVR on Eliquis (last dose 04/22 AM), presenting to the ER with a complaint of epistaxis, hypotension and tachycardia. Now admitted to ICU for septic shock. Pt was recently admitted for MRSA bacteremia, currently receiving Daptomycin via Right UE PICC line. ED Course notable for: - continued hypotension SBP 86-90 - HR 122 - Temp 100.2F rectal - 3L NS -> SBP 90-100s - CXR: focal mass at R apex unchanged from ID Septic Shock - responsive to IVF Pt given 3L IVF in ED, BP improved to MAP of 65, levophed not administered, will monitor off pressors for now Pt was recently treated for MRSA bacteremia through a PICC line, now with temp 100.9F lactic acidosis, most likely source is UTI, need to r/o other sources Blood cultures, urine cultures, influenza, RSV pending Lactic acidosis, resolved with IVF Discussed with ID, continue Daptomycin and meropenem was added, PICC line to be removed R Fem line placed in ER, PICC line not removed at this time due to risk of bleeding MRSA Bacteremia with suspicion of endocarditis, last admission LUBNA was not done at that time, consider LUBNA on this admission Heme Acute blood loss, normocytic anemia, likely 2/2 epistaxis Pt had similar episode last admission, on Eliquis 5mg PO daily for Afib, last dose yesterday H/H 8.7/25.5, pt's baseline around 10, 1pRBC ordered, will trend CBC Tranfusion goal of Hb > 8 Hold Eliquis INR: 1.69 Pt on arrival in ICU, pt had bleeding from the femoral central line insertuion site, pressure was applied and resolved, hence PICC line not removed at this time due to risk of bleeding, will trasfuse a unit of pRBCs and remove plan for PICC line removal Thrombocytopenia, baseline around 130-140 and since 03/02/18 has been decreasing to 80s, likely 2/2 sepsis and antibiotics Epistaxis from the L nares, L nasal packing done in ED, ENT consulted ENT recommends nasal packing until Thursday, seeking improvment of PTTw/INR, max of 3-5days, maintain antistaphyloccal Cardiac Diastolic LV dysfunc, CHF, phx NM, CAD, Afib w/ RVR Last ECHO (03/31/18) - normal EF, L ventricular function normal, severe MR, moderate TR Tele monitoring Continue lipitor Trop: neg HTN, no hypotensive 2/2 septic shock, will hold home medications, valsartan Afib, on Eliquis at home, will hold in setting of coagulopathy, resume pending hemostasis [id number] score of 3 Pulm COPD, not in exacerbation, uses 3L home oxygen continue 3L of oxygen, on NRB due to L nasal packing CXR: focal mass at R apex unchanged from Spiriva daily F/E/N Not on IVF currently Advance diet as tolerated Electrolytes wnl Diabetic diet PPX DVT, pt on Eliquis on hold due to bleeding, on SCDs now GI, not indicated Code Status: full code Dispo: Continue ICU monitoring. Visit type - Emergency Visit Emergency Visit: Yes ED Registration Date: 04/23/18 Care time: The patient presented to the Emergency Department on the above date and was hospitalized for further evaluation of their emergent condition. - New Patient This patient is new to me today: Yes Date on this admission: 05/03/18 - Critical Care Critical Care patient: Yes Total Critical Care Time (in minutes): 35 Critical Care Statement: The care of this patient involved high complexity decision making to prevent further life threatening deterioration of the patient 's condition and/or to evaluate & treat vital organ system(s) failure or risk of failure.
[2018-04-23] MEDS ORDERED: MEROPENEM 1 GM in DEXTROSE 5%-WATER 100 ML IVPB SCH (15:45)
[2018-04-23] MEDS ORDERED: NOREPINEPHRINE BITARTRATE 4,000 MCG in DEXTROSE 5%-WATER - 496 ML IV SCH (16:15)
--- NOTE | 2018-04-23 18:01 | PN ---
Progress Note (short form) - Note Progress Note: Chief Complaint: Events noted, notes reviewed, epistaxis, fever and hypotension , dyspnea persistent, denies any chest pain, sinus rhythm is maintained, sinus tachycardia History of Present Illness: Seen and examined in the ICU. Full consult dictated - Current Medication List Current Medications Acetaminophen (Tylenol -) 650 mg PO Q6H PRN PRN Reason: FEVER Alprazolam (Xanax -) 0.5 mg PO Q12H PRN PRN Reason: ANXIETY Arformoterol Tartrate (Brovana (Restricted To Pulmonology/Resp) -) 1 amp NEB RBID TA Atorvastatin Calcium (Lipitor -) 10 mg PO HS TA Budesonide/Formoterol Fumarate (Symbicort 160/4.5mcg -) 2 puff IH DAILY@0800 [facility] Chlorhexidine Gluconate (Hibiclens For Decolonization -) 1 applic TP HS TA Daptomycin 350 mg/ Sodium (Chloride) 50 mls @ 50 mls/hr IVPB DAILY TA; Protocol Meropenem 1 gm/ Dextrose 100 mls @ 200 mls/hr IVPB Q8H-IV TA Norepinephrine Bitartrate 4, (000 mcg/ Dextrose) 500 mls @ 37.5 mls/hr IV TITR TA; Protocol Mupirocin (Bactroban Ointment (For Decolonization) -) 1 applic NS BID [facility] Stop: 04/28/18 21:59 Sitagliptin Phosphate (Januvia -) 100 mg PO DAILY@0800 [facility] Sodium Chloride (Normal Saline -) 1,715 ml 30 ml/kg (1715 ml) IV ONCE [facility] Last Admin: 04/23/18 12:15 Dose: 1,715 ml Tamsulosin HCl (Flomax -) 0.4 mg PO DAILY@0800 [facility] Tiotropium [place] (Spiriva Respimat) 2 puff IH DAILY [facility] - Review of Systems Cardiovascular: As noted above Respiratory: As noted above Gastrointestinal: denies: Nausea, Vomiting, Diarrhea, Constipation or Abdominal Pain Musculoskeletal: No symptoms reported Neurological: No symptoms reported - Objective Vital Signs: Last Vital Signs Temp Pulse Resp BP Pulse Ox 100.9 F H 93 H 18 115/59 L 99 04/23/18 10:39 04/23/18 17:39 04/23/18 17:39 04/23/18 17:39 04/23/18 17:39 Intake & Output 04/20/18 04/21/18 04/22/18 04/23/18 23:59 23:59 23:59 23:59 Intake Total 3000 Balance 3000 Weight 126 lb Neck: Supple Negative JVD Cardiovascular: S1 S2 Regular Rate Rhythm Respiratory: Diminished breath sounds Bilaterally Scattered Rhonchi Gastrointestinal: Soft Benign Normal Bowel Sounds Ext: Negative Edema Labs: Troponin, BNP 04/23/18 11:30 Troponin I 0.02 CBC, BMP 04/23/18 11:30 04/23/18 11:30 Hepatic Panel Total Bilirubin 0.5 mg/dL (0.2-1) 04/23/18 11:30 AST 15 U/L (15-37) 04/23/18 11:30 ALT 51 U/L (13-61) 04/23/18 11:30 Alkaline Phosphatase 78 U/L (45-117) 04/23/18 11:30 Albumin 2.3 g/dl (3.4-5.0) L 04/23/18 11:30 Assessment/Plan ASSESSMENT: 1. Epistaxis, prior history requiring intervention, anemia 2. Fever, hypotension related to probable sepsis syndrome, history of MRSA bacteremia of unclear source, with splenic infarct, endocarditis was a suspect 3. Paroxysmal atrial fibrillation with [id number] score of 2 on A/C with DOAC's/ Eliquis 4. History of acute on Chronic Hypoxic and Hypercapneic Respiratory Failure referable to 5. History of acute exacerbation of advanced chronic obstructive pulmonary disease on home oxygen therapy with Pulmonary HTN, clinically stable 6. History of Atypical Mycobacterium 7. CAD non-obstructive coronary artery disease angina pectoris, stable 8. Diastolic LV dysfunction with class 0-I NYHA classification LV failure, compensated/euvolemic 9. HTN 10. Hypercholesterolemia 11. Pre-renal azotemia 12. Anemia and thrombocytopenia PLAN: 1. Withhold Cardizem CD, pending hemodynamics improvement 2. Withhold Diovan, pending hemodynamics improvement 3. Ideally A/C with Eliquis to be continued with caution considering the above noted anemia and thrombocytopenia, withhold in view of active bleed and to be resumed pending hemostasis 4. Continue Lipitor 5. Transfuse to maintain Hg equal or > 8.0, repeat CBC 6. IV fluids with NS 7. Antibiotics course as per ID service/primary team Ashley Bojorquez MD
[2018-04-23 18:27] LABS: PLATELET ESTIMATE DECREASED
[2018-04-23] MEDS: MEROPENEM 1 GM in DEXTROSE 5%-WATER 100 ML IVPB SCH (18:51)
[2018-04-23] MEDS: DAPTOMYCIN 350 MG in SODIUM CHLORIDE 50 ML IVPB SCH (18:52)
--- NOTE | 2018-04-23 19:24 | CONS ---
DATE OF CONSULTATION: DATE OF DICTATION: 04/23/2018 REQUESTING PHYSICIAN: Mony Leslie M.D. CHIEF COMPLAINT: Epistaxis, hypotension, fever, cardiovascular evaluation. HISTORY OF PRESENT ILLNESS: A 67-year-old male of descent known to our service with known history of coronary artery disease, nonobstructive coronary artery disease, and prior coronary angiography, angina pectoris, diastolic left ventricular dysfunction with chronic class 0 to 1 [place] [employer] classification left ventricular function, hypertensive cardiovascular disease, hypercholesterolemia, advanced chronic obstructive pulmonary disease, interstitial lung disease on home oxygen therapy with history of atypica mycobacterial infection, pulmonary hypertension, who was recently discharged from [facility] following MRSA bacteremia with presumptive endocarditis. Patient was at a rehabilitation facility where he had some onset of epistaxis, in view of which was transferred to [facility] emergency room for further evaluation and management. Patient in emergency room was noted to be febrile and hypotensive. Patient reported dyspnea but denied any chest discomfort. Patient denied any orthopnea or paroxysmal nocturnal dyspnea. Patient denied any peripheral edema. Patient denied any palpitations. Patient reported generalized weakness. PAST MEDICAL HISTORY: Coronary artery disease, nonobstructive coronary artery disease, angina pectoris, diastolic left ventricular dysfunction with chronic class 0 to 1 [place] [employer] classification left ventricular function, hypertensive cardiovascular disease, hypercholesterolemia, chronic obstructive pulmonary disease, interstitial pulmonary disease, atypical mycobacterial infection, pulmonary hypertension, recently diagnosed and treated MRSA bacteremia, presumptive endocarditis. SOCIAL HISTORY: Prior history of tobacco abuse. FAMILY HISTORY: Positive coronary artery disease. ALLERGIES: SHELLFISH. MOXIFLOXACIN. REVIEW OF SYSTEMS: Head and neck: Denies headache, photophobia, blurring of vision. Respiratory: Denies cough or sputum production. Cardiovascular: As noted above. Gastrointestinal: Denies nausea, vomiting, diarrhea, abdominal discomfort. Genitourinary: No symptoms reported. Musculoskeletal: History of degenerative joint disease. PHYSICAL EXAMINATION: Vital signs: Blood pressure is 115/59 mmHg, pulse rate is 93 beats per minute regular. Head/Neck: Pupils equally reactive to light and accommodation. Extraocular muscles are intact. Anicteric sclerae. Negative JVD. No bruit appreciated. Chest: Bilateral scattered rhonchi. Cardiovascular: S1, S2 regular. No murmurs appreciated. Abdomen: Soft, benign. Normoactive bowel sounds. Extremities: Negative edema. 1+ pedal pulses. No calf tenderness. Electrocardiogram not in the chart. Chest x-ray was noted. CBC revealed a white cell count of 6.4, hemoglobin 8.7, platelet count 74. INR 1.69. Basic metabolic profile revealed sodium 140, potassium 4.4, BUN 31, creatinine 0.5, glucose 108, lactic acid 2.9, repeat 0.8. ASSESSMENT: 1. Epistaxis prior history requiring intervention, anemia. 2. Fever, hypertension related to probable sepsis syndrome, history of methicillin-resistant Staphylococcus aureus bacteremia of unclear source with splenic infarct, endocarditis was a suspect. 3. Paroxysmal atrial fibrillation with CHADS2 VASc score of 2, on anticoagulation therapy with Eliquis. 4. History of acute on chronic hypoxic and hypercapnic respiratory failure referable to number 5. 5. History of acute exacerbation of advanced chronic obstructive pulmonary disease on home oxygen therapy with pulmonary hypertension, clinically stable currently. 6. History of atypical mycobacterial infection. 7. Coronary artery disease, nonobstructive coronary artery disease on coronary angiography, stable. 8. Diastolic left ventricular dysfunction with class 0 to 1 [place] [employer] classification left ventricular function compensated/euvolemic. 9. Hypertensive cardiovascular disease. 10. Hypercholesterolemia. 11. Prerenal azotemia. 12. Anemia/thrombocytopenia. RECOMMENDATION: 1. Withhold Cardizem CD therapy pending hemodynamic improvement. 2. Withhold Diovan therapy pending hemodynamic improvement. 3. Ideally anticoagulation with Eliquis to be continued with caution considering the above noted anemia and thrombocytopenia, withhold in view of active bleed and to be resumed pending hemostasis. 4. Continue Lipitor. 5. Transfuse to maintain hemoglobin equal or greater than 8.0, repeat CBC. 6. IV fluid with normal saline. 7. Antibiotic course as per ID service/primary team. Thank you for the kind referral. LUZ LOPEZ M.D. [id number]
[2018-04-23 20:10] LABS: HEMATOCRIT 22.6 % (35.4-49); HEMOGLOBIN 7.9 GM/dL (11.7-16.9); MCH 32.4 pg (25.7-33.7); MCHC 34.8 g/dl (32.0-35.9); MEAN CELL VOLUME 93.1 fl (80-96); MEAN PLT VOLUME 9.5 fl (7.5-11.1); PLATELET COUNT 75 K/MM3 (134-434); RBC 2.43 M/mm3 (4.00-5.60); RDW 16.3 % (11.9-15.9); WHITE BLOOD COUNT 5.5 K/mm3 (4.0-10.0)
[2018-04-23] MEDS: ARFORMOTEROL TARTRATE 15 MCG/2 ML VIAL NEB SCH (21:30)
[2018-04-23] MEDS ORDERED: ATORVASTATIN CA 10 MG TABLET (FP) PO SCH (22:00)
[2018-04-23] MEDS: CHLORHEXIDINE GLUCONATE 4% CLEANSER FOR DECOLONIZATION TP SCH (22:00)
[2018-04-23] MEDS: MUPIROCIN 2% TOPICAL OINTMENT FOR DECOLONIZATION NS SCH (22:00)
[2018-04-23] MEDS ORDERED: NOREPINEPHRINE BITARTRATE 8,000 MCG in DEXTROSE 5%-WATER - 492 ML IV SCH (22:45)
[2018-04-23] MEDS ORDERED: AMIODARONE HCL 150 MG/3 ML VIAL IVPUSH ONE (23:08)
--- NOTE | 2018-04-23 23:18 | PN ---
Progress Note (short form) - Note Progress Note: Patient into Afib w/ RVR rates of 130-140s and became hypotensive SBP 80s, MAP maintained above 65 Home cardizem held 2/2 hypotension Amiodarone 150mg push administered. IV amio drip ordered, but not started as patient returned to sinus rhythm and HR controlled @0147 Pt with labored breathing, excessive abdominal muscle use Although it is indicated that in septic shock lasix are held for 12 hours, in this case patient has labored breathing has gotten 3L IVF in ER, 2pRBCs, has a history of diastolic HF and on auscultation has bibasilar crackles and wheezing , hence giving IV lasix 20. At this time, his MAP is 75, BP 105/70, HR 101, RR25 , saturation dropped to 79 % @ 30% venti mask, afebrile. Changed to 50 % venti and saturation imrpved to 99 %. His breathing improved with IV Lasix. BIPAP considered, however would be limited by L nares nasal packing, as per ENT to be removed on Thursday 2/2 bleeding risk. Patient is coughing up a lot of sputum, suctioning PRN. Discussed with patient elective intubation if respiratory distress worsens, he agrees and asked to inform his . Trop, CBC, ABG, CXR ordered stat. Mucomyst nebs given with Albuterol # Hb 7.9 after 3L of NS and - lab sent prior to pRBC transfusion - rpt Hb at 10.9, Hct 33.6, plt at 65 2:30 AM Spoke with pt's over the phone, discussed indications for intubation, informed that is willing to be intubated if necessary. expresses understanding and agrees to plan.
[2018-04-23] MEDS ORDERED: AMIODARONE IN DEXTROSE,ISO-OSM 360 MG/200 ML BAG IVPB ONE (23:23)
[2018-04-24 01:40] LABS: PHOSPHOROUS 2.5 mg/dL (2.5-4.9)
[2018-04-24 01:44] LABS: HEMATOCRIT 33.6 % (35.4-49); HEMOGLOBIN 10.9 GM/dL (11.7-16.9); MCHC 32.3 g/dl (32.0-35.9); MEAN CELL VOLUME 92.6 fl (80-96); MEAN PLT VOLUME 9.2 fl (7.5-11.1); PLATELET COUNT 65 K/MM3 (134-434); RBC 3.63 M/mm3 (4.00-5.60); RDW 16.2 % (11.9-15.9); WHITE BLOOD COUNT 5.6 K/mm3 (4.0-10.0)
[2018-04-24] MEDS: MEROPENEM 1 GM in DEXTROSE 5%-WATER 100 ML IVPB SCH ×3 (02:00→17:11)
[2018-04-24 02:01] LABS: ALLENS TEST POSITIVE; ARTERIAL BLD GAS O2 SATURATION 86.6 % (90-98.9); ARTERIAL BLOOD GAS BASE EXCESS 6.2 meq/l (-2-2); ARTERIAL BLOOD GAS PCO2 56.3 mmHg (35-45); ARTERIAL BLOOD GAS pH 7.38 (7.35-7.45)
[2018-04-24] MEDS ORDERED: ALBUTEROL SO4 0.083% IH SOL 2.5 MG/3 ML VIAL.NEB. NEB PRN ×2 (02:09→05:01)
[2018-04-24] MEDS ORDERED: ACETYLCYSTEINE 20% 200MG/ML 4 ML VIAL *FOR ORAL / INH USE ONLY ONE (02:14)
[2018-04-24] MEDS ORDERED: ALBUTEROL SO4 0.083% IH SOL 2.5 MG/3 ML VIAL.NEB. NEB ONE (02:14)
[2018-04-24] MEDS ORDERED: FUROSEMIDE 40 MG/4 ML INJECTABLE VIAL IVPUSH ONE (02:15)
[2018-04-24] MEDS ORDERED: methylPREDNISolone NA SUCC 125 MG/2 ML VIAL IVPUSH ONE (03:03)
[2018-04-24] MEDS: MIDAZOLAM 100 MG in SODIUM CHLORIDE 100 ML IVPB SCH (03:30)
[2018-04-24] MEDS ORDERED: ETOMIDATE 40 MG/20 ML VIAL IVPUSH ONE (03:37)
[2018-04-24] MEDS ORDERED: ROCURONIUM BROMIDE 50 MG/5 ML VIAL IVPUSH ONE (03:38)
[2018-04-24] MEDS ORDERED: RAPID SEQUENCE INTUBATION KIT NR ONE (03:43)
[2018-04-24] MEDS ORDERED: MIDAZOLAM 100 MG/100 ML MG IVPB ONE ×2 (03:45→16:21)
[2018-04-24] MEDS ORDERED: MAGNESIUM SULF 50% (8.12 MEQ/2 ML-1 GM VIAL) IVPB ONE ×2 (04:00→07:30)
[2018-04-24] MEDS ORDERED: AMIODARONE IN DEXTROSE,ISO-OSM 360 MG/200 ML BAG ONE (04:04)
--- NOTE | 2018-04-24 04:11 | PROC ---
Intubation - Intubation Reason for Intubation: Respiratory Failure, Airway Protection Time of Intubation: 03:45 Intubation Method: orotracheal Blade used: Mac Tube Size (cm): 8.0 Tube position @ lip (cm): 23 Tube position confirmed by: Direct visualization, CO2 detector, Chest x-ray, Breath sounds Breath Sounds after Intubation: equal Post Intubation Xray: Yes Remarks: Under direct supervision of Anesthesia, Dr. Doty, intubated the patient using, 14 Etomidate , 50 Rocuronium, 8 ET tube, 23 at the lip, capnography w/color change, breath sounds auscultated bilaterally, awaiting confirmatory CXR. AC Vent settings at 14/450/50/5
[2018-04-24] MEDS ORDERED: ACETAMINOPHEN 650 MG SUPP.RECT PR ONE (04:28)
[2018-04-24 05:01] LABS: ALLENS TEST POSITIVE; ARTERIAL BLD GAS O2 SATURATION 98.7 % (90-98.9); ARTERIAL BLOOD GAS BASE EXCESS 6.6 meq/l (-2-2); ARTERIAL BLOOD GAS pH 7.35 (7.35-7.45)
[2018-04-24 05:02] LABS: ARTERIAL BLOOD GAS PCO2 62.5 mmHg (35-45)
[2018-04-24] MEDS ORDERED: SODIUM CHLORIDE 1,000 ML IV STA (05:23)
--- NOTE | 2018-04-24 05:23 | PN ---
Progress Note (short form) - Note Progress Note: On arrival to the ICU, patient's BP was 90/60 mmHg with a MAP of > 65 after fluid resuscitation 3 L of IV NS and 2 prbc started for active epistaxis in ED , HR ranged between 110-120's (Sinus tachycardia). After few hours, patient went into a-fib with RVR with a rate of 140 bpm with a MAP of > 65 BP 110/60 mmHg. IV Amiodarone 150mg was given and before starting the drip patient returned into sinus rhythm maintaining HR < 120 bpm. Hence Amio drip was not started. Patient had worsening of respiratory distress using his accessory muscles. Stat ABG done. Bipap use was limited as patient has a nasal packing in the left nares and is supposed to remain till Thursday as per ENT. Patient appeared more on respiratory distress-had bibasilar crackles, saturation dropped to 79 % @ 30 % venti mask, using accessory muscles so presumed to be in fluid overload. IV Lasix 20mg was given stat, with improvement in his breathing status and saturation improved to 98 % on 50 % of Venti mask. After an hour, he again starting having respiratory distress, using accessory muscles, hence electively intubated. was informed prior to intubation. Currently Intubated settings @ A/C 16/450/35/5 vent settings readjusted as per ABG post intubation. Post intubation, patient remained to be in Sinus tachycardia with a HR of 130's- 140's. Cardiology (Dr. Sandoval) was called and informed. Recommended to repeat CXR and if fluid overloaded to give more IV Lasix. Patient seen examined and discussed with Dr. Brunson, recommended to continue IV NS bolus 1 L followed by maintainence IV NS @ 75 mls/hr and to monitor hemodynamic status and CVP. Levophed started with no improvement in blood pressure post IV fluid resuscitation. Currently on Levophed drip at 10 mcgs, Versed Drip at 10 and Fentanyl 50 once. CBC, CMP, Mg, Phos, BNP sent. Pending CXR. CVP monitoring. Will sign out to day team.
[2018-04-24] MEDS ORDERED: PROPOFOL 1,000,000 MCG/100 ML VIAL IVPB SCH (05:30)
[2018-04-24] MEDS: SODIUM CHLORIDE 1,000 ML IV SCH (05:35)
[2018-04-24 05:58] LABS: BASO % 0.2 % (0-2.0); EOS % 0.7 % (0-4.5); HEMATOCRIT 33.2 % (35.4-49); HEMOGLOBIN 10.9 GM/dL (11.7-16.9); LYMPH % 8.5 % (8-40); MCH 30.1 pg (25.7-33.7); MCHC 32.8 g/dl (32.0-35.9); MEAN CELL VOLUME 91.9 fl (80-96); MEAN PLT VOLUME 9.1 fl (7.5-11.1); MONO % 0.9 % (3.8-10.2); NEUT % 89.7 % (42.8-82.8); PLATELET COUNT 62 K/MM3 (134-434); RBC 3.61 M/mm3 (4.00-5.60); RDW 16.2 % (11.9-15.9)
[2018-04-24 06:09] LABS: INR 1.28 (0.83-1.09); PROTHROMBIN TIME (PATIENT) 15.1 SEC (9.7-13.0)
[2018-04-24 06:45] LABS: ALBUMIN 2.2 g/dl (3.4-5.0); ALK PHOS 73 U/L (45-117); ANION GAP 5 MMOL/L (8-16); BILIRUBIN,TOTAL 0.8 mg/dL (0.2-1); BLOOD UREA NITROGEN 17 mg/dL (7-18); CALCIUM 7.3 mg/dL (8.5-10.1); CHLORIDE 101 mmol/L (98-107); CO2 35 mmol/L (21-32); CREATININE 0.5 mg/dL (0.55-1.3); GLUCOSE,RANDOM 89 mg/dL (74-106); MAGNESIUM 1.7 mg/dL (1.8-2.4); PHOSPHOROUS 2.8 mg/dL (2.5-4.9); POTASSIUM 3.4 mmol/L (3.5-5.1); SGOT/AST 19 U/L (15-37); SGPT/ALT 47 U/L (13-61); SODIUM 141 mmol/L (136-145)
[2018-04-24] MEDS ORDERED: NOREPINEPHRINE BITARTRATE 4 MG/4 ML ML IV ONE (06:46)
[2018-04-24] MEDS ORDERED: ACETYLCYSTEINE 20% 200MG/ML 4 ML VIAL *FOR ORAL / INH USE ONLY NEB SCH (08:00)
[2018-04-24] MEDS ORDERED: TAMSULOSIN HCL 0.4 MG CAP PO SCH (08:00)
[2018-04-24] MEDS ORDERED: BUDESONIDE/FORMETEROL FUMARATE 160/4.5 mcg INHALER IH SCH (08:00)
[2018-04-24] MEDS ORDERED: sitaGLIPtin PHOSPHATE 100 MG TABLET (FP) PO SCH ×2 (08:00)
--- NOTE | 2018-04-24 08:03 | PN ---
Physical Exam: SUBJECTIVE: Patient seen and examined intubated and sedated. on ventilator support. on norepinephrine of 10 BP responding now, we will taper his pressor support. HR below 110, Got amiadarone push 150mg last night. Not on drip. If HR goes up we will start him on drip. overnight got 3 L of fluid and 2 pc-- intubated because of respiratory distress. ALso got 20mg lasix last night we will start him on scd b/l OBJECTIVE: Vital Signs Period Temp Pulse Resp BP Sys/Morgan Pulse Ox Last 24 Hr 99 F-102 F 86-131 14-32 87-128/46-80 95-100 GENERAL: sedated and intubated EYES: conjuctiva clear, pupil reacting to light. ENT: packing present on left side of nose., et tube present NECK: Trachea midline, full range of motion, supple. LUNGS: Breath sounds equal, clear to auscultation bilaterally, no wheezes, no crackles, no accessory muscle use. HEART: Regular rate and rhythm, S1, S2 normal ABDOMEN: Soft, nontender, nondistended, normoactive bowel sounds, no guarding, no rebound, EXTREMITIES: 2+ pulses, warm, well-perfused, no edema. NEUROLOGICAL: unobtainable SKIN: Warm, dry, Laboratory Results - last 24 hr 04/23/18 04/23/18 04/23/18 11:30 11:30 11:30 WBC 6.4 Corrected WBC (auto) RBC 2.73 L Hgb 8.7 L Hct 25.5 L D MCV 93.2 MCH 32.0 MCHC 34.3 RDW 16.3 H Plt Count 74 L MPV 9.5 Absolute Neuts (auto) 5.9 Total Counted 100 Neutrophils % 91.9 H Neutrophils % (Manual) 78.0 D Band Neutrophils % 7.0 Lymphocytes % 2.6 L D Lymphocytes % (Manual) 5.0 L D Monocytes % 5.2 D Monocytes % (Manual) 10 D Eosinophils % 0.2 D Basophils % 0.1 D Nucleated RBC % 1 H Platelet Estimate Decreased Platelet Comment PT with INR 20.00 H INR 1.69 H PTT (Actin FS) Puncture Site ABG pH ABG pCO2 at Pt Temp ABG pO2 at Pt Temp ABG HCO3 ABG O2 Sat (Measured) ABG O2 Content ABG Base Excess Pardeep Test VBG pH POC VBG pCO2 POC VBG pO2 Mixed VBG HCO3 O2 Delivery Device Oxygen Flow Rate Vent Mode Vent Rate Mechanical Rate PEEP Pressure Support Vent Sodium 140 Potassium 4.4 Chloride 97 L Carbon Dioxide 35 H Anion Gap 9 BUN 31 H Creatinine 0.5 L Creat Clearance w eGFR > 60 Random Glucose 108 H Lactic Acid Calcium 7.8 L Phosphorus Magnesium Ferritin Total Bilirubin 0.5 AST 15 ALT 51 Alkaline Phosphatase 78 Creatine Kinase 31 Troponin I 0.02 B-Natriuretic Peptide Total Protein 5.2 L Albumin 2.3 L Urine Color Urine Appearance Urine pH Ur Specific [place] Urine Protein Urine Glucose (UA) Urine Ketones Urine Blood Urine Nitrite Urine Bilirubin Urine Urobilinogen Ur Leukocyte Esterase Urine WBC (Auto) Urine RBC (Auto) Ur Epithelial Cells Calcium Oxalate Crystal Urine Bacteria Hyaline Casts Urine Mucus Urine Yeast Blood Type Antibody Screen Crossmatch 04/23/18 04/23/18 04/23/18 11:30 11:30 11:30 WBC Corrected WBC (auto) RBC Hgb Hct MCV MCH MCHC RDW Plt Count MPV Absolute Neuts (auto) Total Counted Neutrophils % Neutrophils % (Manual) Band Neutrophils % Lymphocytes % Lymphocytes % (Manual) Monocytes % Monocytes % (Manual) Eosinophils % Basophils % Nucleated RBC % Platelet Estimate Platelet Comment PT with INR INR PTT (Actin FS) Puncture Site ABG pH ABG pCO2 at Pt Temp ABG pO2 at Pt Temp ABG HCO3 ABG O2 Sat (Measured) ABG O2 Content ABG Base Excess Pardeep Test VBG pH 7.34 POC VBG pCO2 64.6 H* D POC VBG pO2 33.1 D Mixed VBG HCO3 34.2 H O2 Delivery Device Oxygen Flow Rate Vent Mode Vent Rate Mechanical Rate PEEP Pressure Support Vent Sodium Potassium Chloride Carbon Dioxide Anion Gap BUN Creatinine Creat Clearance w eGFR Random Glucose Lactic Acid 2.9 H* Calcium Phosphorus Magnesium Ferritin Total Bilirubin AST ALT Alkaline Phosphatase Creatine Kinase Troponin I B-Natriuretic Peptide Total Protein Albumin Urine Color Urine Appearance Urine pH Ur Specific [place] Urine Protein Urine Glucose (UA) Urine Ketones Urine Blood Urine Nitrite Urine Bilirubin Urine Urobilinogen Ur Leukocyte Esterase Urine WBC (Auto) Urine RBC (Auto) Ur Epithelial Cells Calcium Oxalate Crystal Urine Bacteria Hyaline Casts Urine Mucus Urine Yeast Blood Type B POSITIVE Antibody Screen Negative Crossmatch See Detail 04/23/18 04/23/18 04/23/18 11:57 13:15 17:20 WBC Corrected WBC (auto) RBC Hgb Hct MCV MCH MCHC RDW Plt Count MPV Absolute Neuts (auto) Total Counted Neutrophils % Neutrophils % (Manual) Band Neutrophils % Lymphocytes % Lymphocytes % (Manual) Monocytes % Monocytes % (Manual) Eosinophils % Basophils % Nucleated RBC % Platelet Estimate Platelet Comment PT with INR INR PTT (Actin FS) 28.8 Puncture Site ABG pH ABG pCO2 at Pt Temp ABG pO2 at Pt Temp ABG HCO3 ABG O2 Sat (Measured) ABG O2 Content ABG Base Excess Pardeep Test VBG pH POC VBG pCO2 POC VBG pO2 Mixed VBG HCO3 O2 Delivery Device Oxygen Flow Rate Vent Mode Vent Rate Mechanical Rate PEEP Pressure Support Vent Sodium Potassium Chloride Carbon Dioxide Anion Gap BUN Creatinine Creat Clearance w eGFR Random Glucose Lactic Acid 0.8 Calcium Phosphorus Magnesium Ferritin Total Bilirubin AST ALT Alkaline Phosphatase Creatine Kinase Troponin I B-Natriuretic Peptide Total Protein Albumin Urine Color Yellow Urine Appearance Slcloudy Urine pH 5.0 D Ur Specific [place] 1.017 Urine Protein Negative Urine Glucose (UA) Negative Urine Ketones Negative Urine Blood 2+ H Urine Nitrite Negative Urine Bilirubin Negative Urine Urobilinogen Negative Ur Leukocyte Esterase 1+ H Urine WBC (Auto) 24 Urine RBC (Auto) 72 Ur Epithelial Cells Rare Calcium Oxalate Crystal Rare Urine Bacteria Rare Hyaline Casts 1 Urine Mucus Few Urine Yeast Rare Blood Type Antibody Screen Crossmatch 04/23/18 04/23/18 04/24/18 19:35 19:35 00:10 WBC Cancelled 5.5 5.6 Corrected WBC (auto) Cancelled RBC Cancelled 2.43 L 3.63 L Hgb Cancelled 7.9 L 10.9 L Hct Cancelled 22.6 L 33.6 L D MCV Cancelled 93.1 92.6 MCH Cancelled 32.4 30.0 MCHC Cancelled 34.8 32.3 RDW Cancelled 16.3 H 16.2 H Plt Count Cancelled 75 L 65 L MPV Cancelled 9.5 9.2 Absolute Neuts (auto) Cancelled Total Counted Neutrophils % Cancelled Neutrophils % (Manual) Band Neutrophils % Lymphocytes % Cancelled Lymphocytes % (Manual) Monocytes % Cancelled Monocytes % (Manual) Eosinophils % Cancelled Basophils % Cancelled Nucleated RBC % Cancelled Platelet Estimate Cancelled Platelet Comment Cancelled PT with INR INR PTT (Actin FS) Puncture Site ABG pH ABG pCO2 at Pt Temp ABG pO2 at Pt Temp ABG HCO3 ABG O2 Sat (Measured) ABG O2 Content ABG Base Excess Pardeep Test VBG pH POC VBG pCO2 POC VBG pO2 Mixed VBG HCO3 O2 Delivery Device Oxygen Flow Rate Vent Mode Vent Rate Mechanical Rate PEEP Pressure Support Vent Sodium Potassium Chloride Carbon Dioxide Anion Gap BUN Creatinine Creat Clearance w eGFR Random Glucose Lactic Acid Calcium Phosphorus Magnesium Ferritin Total Bilirubin AST ALT Alkaline Phosphatase Creatine Kinase Troponin I B-Natriuretic Peptide Total Protein Albumin Urine Color Urine Appearance Urine pH Ur Specific [place] Urine Protein Urine Glucose (UA) Urine Ketones Urine Blood Urine Nitrite Urine Bilirubin Urine Urobilinogen Ur Leukocyte Esterase Urine WBC (Auto) Urine RBC (Auto) Ur Epithelial Cells Calcium Oxalate Crystal Urine Bacteria Hyaline Casts Urine Mucus Urine Yeast Blood Type Antibody Screen Crossmatch 04/24/18 04/24/18 04/24/18 01:00 01:00 01:50 WBC Corrected WBC (auto) RBC Hgb Hct MCV MCH MCHC RDW Plt Count MPV Absolute Neuts (auto) Total Counted Neutrophils % Neutrophils % (Manual) Band Neutrophils % Lymphocytes % Lymphocytes % (Manual) Monocytes % Monocytes % (Manual) Eosinophils % Basophils % Nucleated RBC % Platelet Estimate Platelet Comment PT with INR INR PTT (Actin FS) Puncture Site Right radial ABG pH 7.38 ABG pCO2 at Pt Temp 56.3 H D ABG pO2 at Pt Temp 54.0 L D ABG HCO3 32.3 H ABG O2 Sat (Measured) 86.6 L ABG O2 Content 14.3 L ABG Base Excess 6.2 H Pardeep Test Positive VBG pH POC VBG pCO2 POC VBG pO2 Mixed VBG HCO3 O2 Delivery Device Venti mask Oxygen Flow Rate 31% Vent Mode Vent Rate Mechanical Rate PEEP 0.0 Pressure Support Vent Sodium Potassium Chloride Carbon Dioxide Anion Gap BUN Creatinine Creat Clearance w eGFR Random Glucose Lactic Acid Calcium Phosphorus 2.5 Magnesium 2.0 Ferritin Total Bilirubin AST ALT Alkaline Phosphatase Creatine Kinase Troponin I < 0.02 B-Natriuretic Peptide Total Protein Albumin Urine Color Urine Appearance Urine pH Ur Specific [place] Urine Protein Urine Glucose (UA) Urine Ketones Urine Blood Urine Nitrite Urine Bilirubin Urine Urobilinogen Ur Leukocyte Esterase Urine WBC (Auto) Urine RBC (Auto) Ur Epithelial Cells Calcium Oxalate Crystal Urine Bacteria Hyaline Casts Urine Mucus Urine Yeast Blood Type Antibody Screen Crossmatch 04/24/18 04/24/18 04/24/18 04:58 05:15 05:15 WBC 3.0 L Corrected WBC (auto) RBC 3.61 L Hgb 10.9 L Hct 33.2 L MCV 91.9 MCH 30.1 MCHC 32.8 RDW 16.2 H Plt Count 62 L MPV 9.1 Absolute Neuts (auto) 2.7 Total Counted Neutrophils % 89.7 H Neutrophils % (Manual) Band Neutrophils % Lymphocytes % 8.5 D Lymphocytes % (Manual) Monocytes % 0.9 L D Monocytes % (Manual) Eosinophils % 0.7 D Basophils % 0.2 Nucleated RBC % 3 H Platelet Estimate Platelet Comment PT with INR INR PTT (Actin FS) Puncture Site Left radial ABG pH 7.35 ABG pCO2 at Pt Temp 62.5 H* ABG pO2 at Pt Temp 146.0 H D ABG HCO3 33.5 H ABG O2 Sat (Measured) 98.7 ABG O2 Content 16.4 ABG Base Excess 6.6 H Pardeep Test Positive VBG pH POC VBG pCO2 POC VBG pO2 Mixed VBG HCO3 O2 Delivery Device Mech vent Oxygen Flow Rate 50% Vent Mode A/c Vent Rate 14 Mechanical Rate Yes PEEP 5.0 Pressure Support Vent 450 Sodium Potassium Chloride Carbon Dioxide Anion Gap BUN Creatinine Creat Clearance w eGFR Random Glucose Lactic Acid Calcium Phosphorus Magnesium Ferritin 149.2 Total Bilirubin AST ALT Alkaline Phosphatase Creatine Kinase Troponin I B-Natriuretic Peptide 481.0 H Total Protein Albumin Urine Color Urine Appearance Urine pH Ur Specific [place] Urine Protein Urine Glucose (UA) Urine Ketones Urine Blood Urine Nitrite Urine Bilirubin Urine Urobilinogen Ur Leukocyte Esterase Urine WBC (Auto) Urine RBC (Auto) Ur Epithelial Cells Calcium Oxalate Crystal Urine Bacteria Hyaline Casts Urine Mucus Urine Yeast Blood Type Antibody Screen Crossmatch 04/24/18 04/24/18 05:15 05:15 WBC Corrected WBC (auto) RBC Hgb Hct MCV MCH MCHC RDW Plt Count MPV Absolute Neuts (auto) Total Counted Neutrophils % Neutrophils % (Manual) Band Neutrophils % Lymphocytes % Lymphocytes % (Manual) Monocytes % Monocytes % (Manual) Eosinophils % Basophils % Nucleated RBC % Platelet Estimate Platelet Comment PT with INR 15.10 H INR 1.28 H PTT (Actin FS) Puncture Site ABG pH ABG pCO2 at Pt Temp ABG pO2 at Pt Temp ABG HCO3 ABG O2 Sat (Measured) ABG O2 Content ABG Base Excess Pardeep Test VBG pH POC VBG pCO2 POC VBG pO2 Mixed VBG HCO3 O2 Delivery Device Oxygen Flow Rate Vent Mode Vent Rate Mechanical Rate PEEP Pressure Support Vent Sodium 141 Potassium 3.4 L Chloride 101 Carbon Dioxide 35 H Anion Gap 5 L BUN 17 Creatinine 0.5 L Creat Clearance w eGFR > 60 Random Glucose 89 Lactic Acid Calcium 7.3 L Phosphorus 2.8 Magnesium 1.7 L Ferritin Total Bilirubin 0.8 AST 19 ALT 47 Alkaline Phosphatase 73 Creatine Kinase Troponin I B-Natriuretic Peptide Total Protein 5.0 L Albumin 2.2 L Urine Color Urine Appearance Urine pH Ur Specific [place] Urine Protein Urine Glucose (UA) Urine Ketones Urine Blood Urine Nitrite Urine Bilirubin Urine Urobilinogen Ur Leukocyte Esterase Urine WBC (Auto) Urine RBC (Auto) Ur Epithelial Cells Calcium Oxalate Crystal Urine Bacteria Hyaline Casts Urine Mucus Urine Yeast Blood Type Antibody Screen Crossmatch Active Medications Generic Name Dose Route Start Last Admin Trade Name Freq PRN Reason Stop Dose Admin Acetaminophen 650 mg 04/23/18 13:40 Tylenol - PO Q6H PRN FEVER Albuterol Sulfate 1 amp 04/24/18 05:01 Ventolin 0.083% Nebulizer Soln - NEB Q4H PRN SHORT OF BREATH/WHEEZING Albuterol/Ipratropium 1 amp 04/24/18 08:00 Duoneb - NEB RQID TA Arformoterol Tartrate 1 amp 04/23/18 20:00 04/23/18 21:30 Brovana (Restricted To Pulmonology/Resp) - NEB 1 amp RBID TA Administration Chlorhexidine Gluconate 1 applic 04/23/18 22:00 04/23/18 22:00 Hibiclens For Decolonization - TP 1 applic HS TA Administration Fentanyl 25 mcg 04/24/18 04:14 04/24/18 05:37 Sublimaze Injection - IVPUSH 04/25/18 04:14 25 mcg Q2H PRN Administration PAIN Daptomycin 350 mg/ Sodium 50 mls @ 50 mls/hr 04/23/18 15:30 04/23/18 18:52 Chloride IVPB 50 mls/hr DAILY TA Administration Protocol Meropenem 1 gm/ Dextrose 100 mls @ 200 mls/hr 04/23/18 18:45 04/24/18 02:00 IVPB 200 mls/hr Q8H-IV TA Administration Norepinephrine Bitartrate 8, 500 mls @ 18.75 mls/hr 04/23/18 22:45 04/24/18 05:22 000 mcg/ Dextrose IV 7 mcg/min TITR TA 26.25 mls/hr Titration Protocol 5 MCG/MIN Midazolam HCl 100 mg/ Sodium 100 mls @ 1 mls/hr 04/24/18 04:15 04/24/18 05:20 Chloride IVPB 10 mg/hr TITR TA 10 mls/hr Titration Protocol 1 MG/HR Sodium Chloride 1,000 mls @ 75 mls/hr 04/24/18 05:30 04/24/18 05:35 Normal Saline - IV 75 mls/hr ASDIR TA Administration Famotidine/Sodium Chloride 20 mg in 50 mls @ 100 mls/hr 04/24/18 10:00 Pepcid 20 Mg Premixed Ivpb - IVPB BID TA Potassium Chloride 10 meq in 100 mls @ 100 mls/hr 04/24/18 07:30 Potassium Chloride 10 Meq Premix Ivpb - IVPB 04/24/18 10:29 Q60M TA Insulin Aspart 1 vial 04/24/18 11:00 Novolog Vial Sliding Scale - SQ ACHS TA Protocol Magnesium Sulfate 1 gm 04/24/18 07:30 Magnesium Sulfate IVPB 04/24/18 07:31 ONCE ONE Mupirocin 1 applic 04/23/18 22:00 04/23/18 22:00 Bactroban Ointment (For Decolonization) - NS 04/28/18 21:59 1 appful BID TA Administration ABG Results ABG pH 7.35 (7.35-7.45) 04/24/18 04:58 ABG pCO2 at Pt Temp 62.5 mmHg (35-45) H* 04/24/18 04:58 ABG pO2 at Pt Temp 146.0 mmHg (80-100) H D 04/24/18 04:58 ABG HCO3 33.5 meq/L (22-26) H 04/24/18 04:58 ABG O2 Sat (Measured) 98.7 % (90-98.9) 04/24/18 04:58 ABG O2 Content 16.4 % vol (15-22) 04/24/18 04:58 ABG Base Excess 6.6 meq/l (-2-2) H 04/24/18 04:58 ASSESSMENT/PLAN: Patient is a 67 yo M with history of COPD on home oxygen (3L), Interstitial lung disease, HTN, HLD, CHF, diastolic LV dysfunction, UT, CAD, GERD, hiatal hernia, recent dx of Afib with RVR on Eliquis (last dose 04/22 AM) , presenting to the ER with a complaint of epistaxis, hypotension and tachycardia. Now admitted to ICU for septic shock. Pt was recently admitted for MRSA bacteremia, currently receiving Daptomycin via Right UE PICC line. 1) Septic Shock - likely from urosepsis Monitor vitals monitor intake/ output maintain urine output of 1ml/kg/hr to 0.5ml/kg/hr monitor CVP. continue IV fluid sher cath Presser support. Keep MAP> 65 antibiotics as per ID. on daptomycin and meropenem Follow blood and urine culture ID on case picc line removed on hydrocortisone 50 q6h 2) h/o MRSA Bacteremia with suspicion of endocarditis, last admission LUBNA ordered. Plan to do it on thursday. 3) Epistaxis with supratheraputic inr and thrombocytopenia Pt had similar episode last admission, on Eliquis 5mg PO daily for Afib, last dose yesterday got 2 units of blood last night hb 7.9----> 10.9 INR decreased from 1.6 to 1.2 Hold Eliquis Keep nasal packing until thursday ENT on case keep head end elevated absolute neutrophil count 2691 4) hypoxic hypercapnic respiratory failure: likely because of fluid overload ph 7.35, pco2 62 , spo2 97 TV 450, RR 14---> 18, fio2 35 on ventilator support continue duoneb chest physical therapy repeat CXR in am. repeat abg in am 5) Thrombocytopenia, baseline around 130-140 and since 03/02/18 has been decreasing to 80s, likely 2/[address] abdomen done in previous admission shows normal liver and normal size of spleen 6) H/O Diastolic LV dysfunc, CHF, phx UT, CAD, Afib w/ RVR, htn Last ECHO (03/31/18) - normal EF, L ventricular function normal, severe MR, moderate TR cardiac monitoring rate control... got ami 150 push last night. In sinus rhythm now Trop: neg hold AC because of epistaxis cardiology on case 7) H/O COPD, no wheezing on ventilator support continue nebulizer for now. 8) H/O DM BGM on insulin sliding scale hold oral hypoglycemic F/E/N NS 75 ml/hr electrolyte: hypomagnesemia and hypokalemia NPO for now--- will avoid ng tube because of postnasal bleed PPX DVT, on SCDs now GI, on pepcid bid Code Status: full code Dispo: Continue ICU monitoring. Visit type - Emergency Visit Emergency Visit: Yes ED Registration Date: 04/23/18 Care time: The patient presented to the Emergency Department on the above date and was hospitalized for further evaluation of their emergent condition. - New Patient This patient is new to me today: Yes Date on this admission: 04/24/18 - Critical Care Critical Care patient: Yes Total Critical Care Time (in minutes): 60 Critical Care Statement: The care of this patient involved high complexity decision making to prevent further life threatening deterioration of the patient 's condition and/or to evaluate & treat vital organ system(s) failure or risk of failure.
[2018-04-24] MEDS: ARFORMOTEROL TARTRATE 15 MCG/2 ML VIAL NEB SCH (08:15)
--- NOTE | 2018-04-24 09:23 | PN ---
Progress Note, Physician History of Present Illness: Intubated overnight Sedated on ventilator Hypotensive on pressors Febrile 102 Leukopenic / thrombocytopenic Went into rapid Afib with RVR - Current Medication List Current Medications: Active Medications Acetaminophen (Tylenol -) 650 mg PO Q6H PRN PRN Reason: FEVER Albuterol Sulfate (Ventolin 0.083% Nebulizer Soln -) 1 amp NEB Q4H PRN PRN Reason: SHORT OF BREATH/WHEEZING Albuterol/Ipratropium (Duoneb -) 1 amp NEB RQID TA Arformoterol Tartrate (Brovana (Restricted To Pulmonology/Resp) -) 1 amp NEB RBID TA Chlorhexidine Gluconate (Hibiclens For Decolonization -) 1 applic TP HS TA Last Admin: 04/23/18 22:00 Dose: 1 applic Fentanyl (Sublimaze Injection -) 25 mcg IVPUSH Q2H PRN PRN Reason: PAIN Stop: 04/25/18 04:14 Last Admin: 04/24/18 05:37 Dose: 25 mcg Daptomycin 350 mg/ Sodium (Chloride) 50 mls @ 50 mls/hr IVPB DAILY TA; Protocol Last Admin: 04/23/18 18:52 Dose: 50 mls/hr Meropenem 1 gm/ Dextrose 100 mls @ 200 mls/hr IVPB Q8H-IV TA Last Admin: 04/24/18 02:00 Dose: 200 mls/hr Norepinephrine Bitartrate 8, (000 mcg/ Dextrose) 500 mls @ 18.75 mls/hr IV TITR TA; Protocol Last Titration: 04/24/18 05:22 Dose: 7 mcg/min, 26.25 mls/hr Midazolam HCl 100 mg/ Sodium (Chloride) 100 mls @ 1 mls/hr IVPB TITR TA; Protocol Last Titration: 04/24/18 05:20 Dose: 10 mg/hr, 10 mls/hr Sodium Chloride (Normal Saline -) 1,000 mls @ 75 mls/hr IV ASDIR TA Last Admin: 04/24/18 05:35 Dose: 75 mls/hr Famotidine/Sodium Chloride (Pepcid 20 Mg Premixed Ivpb -) 20 mg in 50 mls @ 100 mls/hr IVPB BID TA Potassium Chloride (Potassium Chloride 10 Meq Premix Ivpb -) 10 meq in 100 mls @ 100 mls/hr IVPB Q60M [facility] Stop: 04/24/18 10:29 Insulin Aspart (Novolog Vial Sliding Scale -) 1 vial SQ ACHS [facility]; Protocol Mupirocin (Bactroban Ointment (For Decolonization) -) 1 applic NS BID [facility] Stop: 04/28/18 21:59 Last Admin: 04/23/18 22:00 Dose: 1 appful - Objective Vital Signs: Vital Signs Temperature 100.5 F H 04/24/18 06:00 Pulse Rate 115 H 04/24/18 06:00 Respiratory Rate 24 H 04/24/18 07:04 Blood Pressure 102/70 04/24/18 06:00 O2 Sat by Pulse Oximetry (%) 99 04/23/18 17:39 Constitutional: Yes: No Distress Cardiovascular: Yes: Regular Rate and Rhythm, S1, S2 Respiratory: Yes: Mechanically Ventilated Gastrointestinal: Yes: Normal Bowel Sounds, Soft. No: Tenderness Edema: No Labs: CBC, BMP 04/24/18 05:15 04/24/18 05:15 INR, PTT INR 1.28 (0.83-1.09) H 04/24/18 05:15 Assessment/Plan Respiratory failure Acute exacerbation COPD Sepsis/ septic shock Rapid Afib Leukopenia/ thrombocytopenia secondary to sepsis Epistaxis MRSA bacteremia Continue hemodynamic/ ventilatory support Await c/s Continue Daptomycin/ meropenem Contact precautions Prognosis guarded Critical care time 35min
[2018-04-24] MEDS ORDERED: PT OWN MED DRAWER 7, Y5N ONE ×3 (09:32→21:34)
[2018-04-24] MEDS: MUPIROCIN 2% TOPICAL OINTMENT FOR DECOLONIZATION NS SCH ×2 (09:39→22:00)
[2018-04-24] MEDS: KCL 10 MEQ IVPB 10 MEQ/100 ML INFUS.BAG IVPB SCH ×3 (09:40→13:31)
[2018-04-24] MEDS: FAMOTIDINE 20 MG/50 ML IVPB 20 MG/50 ML MG IVPB SCH ×2 (09:41→21:50)
[2018-04-24] MEDS ORDERED: TIOTROPIUM BROMIDE 2.5 MCG (SPIRIVA) RESPIMAT INHALER IH SCH (10:00)
--- NOTE | 2018-04-24 10:03 | PN ---
Progress Note (short form) - Note Progress Note: Chief Complaint: Events noted, notes reviewed, acute respiratory failure requiring intubation, hypotension on pressors, sedated, paroxysmal atrial fibrillation noted converted to sinus rhythm post Amiodarone infusion, currently sinus tachycardia noted History of Present Illness: Seen and examined in the ICU. Events noted, notes reviewed, acute respiratory failure requiring intubation, hypotension on pressors, sedated, paroxysmal atrial fibrillation noted converted to sinus rhythm post Amiodarone infusion, currently sinus tachycardia noted - Current Medication List Current Medications Acetaminophen (Tylenol -) 650 mg PO Q6H PRN PRN Reason: FEVER Albuterol Sulfate (Ventolin 0.083% Nebulizer Soln -) 1 amp NEB Q4H PRN PRN Reason: SHORT OF BREATH/WHEEZING Albuterol/Ipratropium (Duoneb -) 1 amp NEB RQID TA Chlorhexidine Gluconate (Hibiclens For Decolonization -) 1 applic TP HS TA Last Admin: 04/23/18 22:00 Dose: 1 applic Fentanyl (Sublimaze Injection -) 25 mcg IVPUSH Q2H PRN PRN Reason: PAIN Stop: 04/25/18 04:14 Last Admin: 04/24/18 05:37 Dose: 25 mcg Hydrocortisone Sodium Succinate (Solu-Cortef -) 50 mg IVPB Q6H TA Daptomycin 350 mg/ Sodium (Chloride) 50 mls @ 50 mls/hr IVPB DAILY TA; Protocol Last Admin: 04/23/18 18:52 Dose: 50 mls/hr Meropenem 1 gm/ Dextrose 100 mls @ 200 mls/hr IVPB Q8H-IV TA Last Admin: 04/24/18 09:39 Dose: 200 mls/hr Norepinephrine Bitartrate 8, (000 mcg/ Dextrose) 500 mls @ 18.75 mls/hr IV TITR TA; Protocol Last Titration: 04/24/18 05:22 Dose: 7 mcg/min, 26.25 mls/hr Midazolam HCl 100 mg/ Sodium (Chloride) 100 mls @ 1 mls/hr IVPB TITR TA; Protocol Last Titration: 04/24/18 05:20 Dose: 10 mg/hr, 10 mls/hr Sodium Chloride (Normal Saline -) 1,000 mls @ 75 mls/hr IV ASDIR TA Last Admin: 04/24/18 05:35 Dose: 75 mls/hr Famotidine/Sodium Chloride (Pepcid 20 Mg Premixed Ivpb -) 20 mg in 50 mls @ 100 mls/hr IVPB BID [facility] Last Admin: 04/24/18 09:41 Dose: 100 mls/hr Potassium Chloride (Potassium Chloride 10 Meq Premix Ivpb -) 10 meq in 100 mls @ 100 mls/hr IVPB Q60M TA Stop: 04/24/18 10:29 Last Admin: 04/24/18 09:40 Dose: 100 mls/hr Insulin Aspart (Novolog Vial Sliding Scale -) 1 vial SQ ACHS [facility]; Protocol Mupirocin (Bactroban Ointment (For Decolonization) -) 1 applic NS BID [facility] Stop: 04/28/18 21:59 Last Admin: 04/24/18 09:39 Dose: 1 appful - Review of Systems Unable to obtain - Objective Vital Signs: Last Vital Signs Temp Pulse Resp BP Pulse Ox 100.5 F H 115 H 23 H 102/70 99 04/24/18 06:00 04/24/18 06:00 04/24/18 09:23 04/24/18 06:00 04/23/18 17:39 Intake & Output 04/21/18 04/22/18 04/23/18 04/24/18 23:59 23:59 23:59 23:59 Intake Total 3400 1610 Output Total 700 1700 Balance 2700 -90 Weight 131 lb 13.383 oz 130 lb Neck: Supple Negative JVD Cardiovascular: S1 S2 Regular Rate Rhythm Respiratory: Diminished breath sounds Bilaterally Scattered Rhonchi Gastrointestinal: Soft Benign Normal Bowel Sounds Ext: Negative Edema Labs: ABG Results ABG pH 7.35 (7.35-7.45) 04/24/18 04:58 ABG pCO2 at Pt Temp 62.5 mmHg (35-45) H* 04/24/18 04:58 ABG pO2 at Pt Temp 146.0 mmHg (80-100) H D 04/24/18 04:58 ABG HCO3 33.5 meq/L (22-26) H 04/24/18 04:58 ABG O2 Sat (Measured) 98.7 % (90-98.9) 04/24/18 04:58 ABG O2 Content 16.4 % vol (15-22) 04/24/18 04:58 ABG Base Excess 6.6 meq/l (-2-2) H 04/24/18 04:58 Troponin, BNP 04/23/18 04/24/18 04/24/18 11:30 01:00 05:15 Troponin I 0.02 < 0.02 B-Natriuretic Peptide 481.0 H CBC, BMP 04/24/18 05:15 04/24/18 05:15 Hepatic Panel Total Bilirubin 0.8 mg/dL (0.2-1) 04/24/18 05:15 AST 19 U/L (15-37) 04/24/18 05:15 ALT 47 U/L (13-61) 04/24/18 05:15 Alkaline Phosphatase 73 U/L (45-117) 04/24/18 05:15 Albumin 2.2 g/dl (3.4-5.0) L 04/24/18 05:15 Assessment/Plan ASSESSMENT: 1. Acute on Chronic Hypoxic Respiratory Failure referable to 2. Acute on chronic class II-III NYHA classification LV failure related to diastolic LV dysfunction, probably related to volume overload IV fluids and blood transfusion 3. 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 Fever, hypotension (on pressors) related to sepsis syndrome, history of MRSA bacteremia of unclear source, with splenic infarct, endocarditis was a suspect 5. Advanced chronic obstructive pulmonary disease on home oxygen therapy with Pulmonary HTN 6. Epistaxis, prior history requiring intervention 7. Anemia related to above in addition neutropenia/thrombocytopenia etiology to be determined 8. Paroxysmal atrial fibrillation with [id number] score of 2 on A/C with DOAC's/ Eliquis (A/C withheld), recurrent arrhythmia resolved 9. HTN 10. Hypercholesterolemia 11. 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 Resume Cardizem, pending hemodynamics improvement resolution of hypotension 2. Continue to withhold Diovan, pending hemodynamics improvement resolution of hypotension 3. Resume A/C with Eliquis with caution considering the above noted anemia and thrombocytopenia, provided hemostasis is achieved 4. If recurrent arrhythmia may consider antiarrhythmics/Amiodarone 5. Continue Lipitor 6. Correction of Hypokalemia 7. Transfuse as needed to maintain Hg equal or > 8.0 8. Pressors and titration to off as tolerated 9. Antibiotics course as per ID service/primary team Ashley Bojorquez MD
--- NOTE | 2018-04-24 10:36 | PN ---
Teaching Attending Note Name of Resident: Ruben Lopez ATTENDING PHYSICIAN STATEMENT I saw and evaluated the patient. I reviewed the resident's note and discussed the case with the resident. I agree with the resident's findings and plan as documented. SUBJECTIVE: Pt seen and examined in the ICU. Remains intubated, sedated on levophed gtt. PICC line removed this AM. Nasal packing in place, no obvious further bleeding. OBJECTIVE: Vital Signs Period Temp Pulse Resp BP Sys/Morgan Pulse Ox Last 24 Hr 99 F-102 F 86-131 14-32 87-128/46-80 95-100 Intake & Output 04/21/18 04/22/18 04/23/18 04/24/18 23:59 23:59 23:59 23:59 Intake Total 3400 1610 Output Total 700 1700 Balance 2700 -90 Weight 59.8 kg 58.967 kg Gen: intubated, sedated Heart: tachycardic, irregular Lung: scattered rhonchi Abd: soft, nontender Ext: no edema CBC, BMP 04/24/18 05:15 04/24/18 05:15 Active Medications Acetaminophen (Tylenol -) 650 mg PO Q6H PRN PRN Reason: FEVER Albuterol Sulfate (Ventolin 0.083% Nebulizer Soln -) 1 amp NEB Q4H PRN PRN Reason: SHORT OF BREATH/WHEEZING Albuterol/Ipratropium (Duoneb -) 1 amp NEB RQID TA Chlorhexidine Gluconate (Hibiclens For Decolonization -) 1 applic TP HS TA Last Admin: 04/23/18 22:00 Dose: 1 applic Fentanyl (Sublimaze Injection -) 25 mcg IVPUSH Q2H PRN PRN Reason: PAIN Stop: 04/25/18 04:14 Last Admin: 04/24/18 05:37 Dose: 25 mcg Hydrocortisone Sodium Succinate (Solu-Cortef -) 50 mg IVPB Q6H-IV TA Daptomycin 350 mg/ Sodium (Chloride) 50 mls @ 50 mls/hr IVPB DAILY TA; Protocol Last Admin: 04/23/18 18:52 Dose: 50 mls/hr Meropenem 1 gm/ Dextrose 100 mls @ 200 mls/hr IVPB Q8H-IV TA Last Admin: 04/24/18 09:39 Dose: 200 mls/hr Norepinephrine Bitartrate 8, (000 mcg/ Dextrose) 500 mls @ 18.75 mls/hr IV TITR TA; Protocol Last Titration: 04/24/18 05:22 Dose: 7 mcg/min, 26.25 mls/hr Midazolam HCl 100 mg/ Sodium (Chloride) 100 mls @ 1 mls/hr IVPB TITR TA; Protocol Last Titration: 04/24/18 05:20 Dose: 10 mg/hr, 10 mls/hr Sodium Chloride (Normal Saline -) 1,000 mls @ 75 mls/hr IV ASDIR TA Last Admin: 04/24/18 05:35 Dose: 75 mls/hr Famotidine/Sodium Chloride (Pepcid 20 Mg Premixed Ivpb -) 20 mg in 50 mls @ 100 mls/hr IVPB BID TA Last Admin: 04/24/18 09:41 Dose: 100 mls/hr Insulin Aspart (Novolog Vial Sliding Scale -) 1 vial SQ ACHS [facility]; Protocol Mupirocin (Bactroban Ointment (For Decolonization) -) 1 applic NS BID TA Stop: 04/28/18 21:59 Last Admin: 04/24/18 09:39 Dose: 1 appful ASSESSMENT AND PLAN: Acute on Chronic Hypoxic and Hypercapneic Respiratory Failure UTI r/o Bacteremia Septic Shock Lactic Acidosis Epistaxis Acute on Chronic Diastolic Heart Failure Thrombocytopenia CAD COPD Pulmonary HTN Paroxysmal Atrial Fibrillation HTN Hypercholesterolemia - continue antibiotics - f/u cultures - may need LUBNA to rule out vegetations - PICC line removed - IVF - monitor urine output, creatinine - monitor CBC - holding anticoagulation - start empiric steroids - inhaled bronchodilators - O2 to keep SpO2 >90% - replete lytes - continue volume assist control - not a candidate for weaning at this time - sedate for vent synchrony - DVT/GI prophylaxis - ICU monitoring critical care time spent in reviewing chart, evaluating patient and formulating plan 35 min
--- NOTE | 2018-04-24 11:07 | PN ---
Progress Note, Physician - Current Medication List Current Medications: Active Medications Acetaminophen (Tylenol -) 650 mg PO Q6H PRN PRN Reason: FEVER Albuterol Sulfate (Ventolin 0.083% Nebulizer Soln -) 1 amp NEB Q4H PRN PRN Reason: SHORT OF BREATH/WHEEZING Albuterol/Ipratropium (Duoneb -) 1 amp NEB RQID TA Chlorhexidine Gluconate (Hibiclens For Decolonization -) 1 applic TP HS TA Last Admin: 04/23/18 22:00 Dose: 1 applic Fentanyl (Sublimaze Injection -) 25 mcg IVPUSH Q2H PRN PRN Reason: PAIN Stop: 04/25/18 04:14 Last Admin: 04/24/18 05:37 Dose: 25 mcg Hydrocortisone Sodium Succinate (Solu-Cortef -) 50 mg IVPB Q6H-IV TA Daptomycin 350 mg/ Sodium (Chloride) 50 mls @ 50 mls/hr IVPB DAILY TA; Protocol Last Admin: 04/23/18 18:52 Dose: 50 mls/hr Meropenem 1 gm/ Dextrose 100 mls @ 200 mls/hr IVPB Q8H-IV TA Last Admin: 04/24/18 09:39 Dose: 200 mls/hr Norepinephrine Bitartrate 8, (000 mcg/ Dextrose) 500 mls @ 18.75 mls/hr IV TITR TA; Protocol Last Titration: 04/24/18 05:22 Dose: 7 mcg/min, 26.25 mls/hr Midazolam HCl 100 mg/ Sodium (Chloride) 100 mls @ 1 mls/hr IVPB TITR TA; Protocol Last Titration: 04/24/18 05:20 Dose: 10 mg/hr, 10 mls/hr Sodium Chloride (Normal Saline -) 1,000 mls @ 75 mls/hr IV ASDIR TA Last Admin: 04/24/18 05:35 Dose: 75 mls/hr Famotidine/Sodium Chloride (Pepcid 20 Mg Premixed Ivpb -) 20 mg in 50 mls @ 100 mls/hr IVPB BID TA Last Admin: 04/24/18 09:41 Dose: 100 mls/hr Insulin Aspart (Novolog Vial Sliding Scale -) 1 vial SQ ACHS [facility]; Protocol Mupirocin (Bactroban Ointment (For Decolonization) -) 1 applic NS BID TA Stop: 04/28/18 21:59 Last Admin: 04/24/18 09:39 Dose: 1 appful - Objective Vital Signs: Vital Signs Temperature 100 F H 04/24/18 08:23 Pulse Rate 106 H 04/24/18 08:23 Respiratory Rate 23 H 04/24/18 09:23 Blood Pressure 96/62 04/24/18 08:23 O2 Sat by Pulse Oximetry (%) 97 04/24/18 09:00 Cardiovascular: Yes: S1, S2 Respiratory: Yes: Diminished, Mechanically Ventilated Gastrointestinal: Yes: Normal Bowel Sounds, Soft Labs: CBC, BMP 04/24/18 05:15 04/24/18 05:15 INR, PTT INR 1.28 (0.83-1.09) H 04/24/18 05:15 Problem List - Problems (1) Fever Assessment/Plan: - cultures ID consult isolation for MRSA ivf ICU Code(s): R50.9 - FEVER, UNSPECIFIED (2) Acute and chronic respiratory failure with hypercapnia Assessment/Plan: Vent support pulm oxygen bronchodilators Code(s): J96.22 - ACUTE AND CHRONIC RESPIRATORY FAILURE WITH HYPERCAPNIA (3) Anemia Code(s): D64.9 - ANEMIA, UNSPECIFIED Qualifiers: Anemia type: unspecified type Qualified Code(s): D64.9 - Anemia, unspecified (4) COPD (chronic obstructive pulmonary disease) Code(s): J44.9 - CHRONIC OBSTRUCTIVE PULMONARY DISEASE, UNSPECIFIED Qualifiers: COPD type: unspecified COPD Qualified Code(s): J44.9 - Chronic obstructive pulmonary disease, unspecified (5) MRSA bacteremia Assessment/Plan: day of daptomycin via picc line isolation ID consult - antonio order dapto dose Code(s): R78.81 - BACTEREMIA (6) Nasal hemorrhage Assessment/Plan: ( ENT consult nasal packing monitor h/h prbc Code(s): R04.0 - EPISTAXIS (7) Afib Assessment/Plan: icu cardizem hold for now- hold AC Code(s): I48.91 - UNSPECIFIED ATRIAL FIBRILLATION
[2018-04-24] MEDS: DAPTOMYCIN 350 MG in SODIUM CHLORIDE 50 ML IVPB SCH (11:13)
[2018-04-24] MEDS: HYDROCORTISONE SOD SUCCINATE 100 MG/2 ML VIAL IVPB SCH ×3 (11:18→21:50)
[2018-04-24] MEDS ORDERED: ARFORMOTEROL TARTRATE 15 MCG/2 ML VIAL NEB SCH (12:00)
--- NOTE | 2018-04-24 12:01 | EKG ---
Test Reason : Blood Pressure : / mmHG Vent. Rate : 089 BPM Atrial Rate : 089 BPM P-R Int : 150 ms QRS Dur : 124 ms QT Int : 370 ms P-R-T Axes : 057 075 023 degrees QTc Int : 450 ms NORMAL SINUS RHYTHM RIGHT BUNDLE BRANCH BLOCK ABNORMAL ECG WHEN COMPARED WITH ECG OF 23-APR-2018 11:14, NO SIGNIFICANT CHANGE WAS FOUND Confirmed by JOSE EARL MD ([id number]) on 04/24/2018 12:01:06 PM Referred By: Confirmed By:JOSE EARL MD
--- NOTE | 2018-04-24 12:07 | EKG ---
Test Reason : Blood Pressure : / mmHG Vent. Rate : 121 BPM Atrial Rate : 121 BPM P-R Int : 146 ms QRS Dur : 116 ms QT Int : 326 ms P-R-T Axes : 046 081 018 degrees QTc Int : 462 ms SINUS TACHYCARDIA RIGHT BUNDLE BRANCH BLOCK BORDERLINE ECG WHEN COMPARED WITH ECG OF 24-MAR-2018 16:34, VENT. RATE HAS INCREASED BY 40 BPM Confirmed by JOSE EARL MD ([id number]) on 04/24/2018 12:06:55 PM Referred By: Confirmed By:JOSE EARL MD
[2018-04-24] MEDS: INSULIN SLIDING SCALE (NOVOLOG) 1 VIAL SQ SCH ×3 (12:13→22:00)
[2018-04-24] MEDS ORDERED: CASPOFUNGIN ACETATE 70 MG in SODIUM CHLORIDE 250 ML IVPB ONE (12:18)
[2018-04-24] MEDS ORDERED: DAPTOMYCIN 500 MG in SODIUM CHLORIDE 50 ML IVPB SCH (12:30)
[2018-04-24] MEDS: ALBUTEROL SO4 2.5/IPRATROPIUM 0.5 INH SOL 3 ML VIAL.NEB. NEB SCH ×4 (12:50→20:50)
[2018-04-25] MEDS: MEROPENEM 1 GM in DEXTROSE 5%-WATER 100 ML IVPB SCH ×3 (02:35→17:32)
[2018-04-25] MEDS: CHLORHEXIDINE GLUCONATE 4% CLEANSER FOR DECOLONIZATION TP SCH (02:35)
[2018-04-25] MEDS: HYDROCORTISONE SOD SUCCINATE 100 MG/2 ML VIAL IVPB SCH ×4 (03:30→22:00)
[2018-04-25] MEDS: SODIUM CHLORIDE 1,000 ML IV SCH (05:49)
[2018-04-25] MEDS: INSULIN SLIDING SCALE (NOVOLOG) 1 VIAL SQ SCH ×3 (06:09→16:21)
[2018-04-25 06:40] LABS: SERUM IRON SATURATION 24 % (15-55); TOTAL IRON BINDING CAPACITY 230 ug/dL (250-450); UIBC 174 ug/dL (111-343)
[2018-04-25] MEDS ORDERED: MIDAZOLAM 100 MG/100 ML MG IVPB ONE ×2 (07:00→20:20)
[2018-04-25] MEDS: MIDAZOLAM 100 MG in SODIUM CHLORIDE 100 ML IVPB SCH (07:01)
--- NOTE | 2018-04-25 08:17 | PN ---
Progress Note (short form) - Note Progress Note: Chief Complaint: Events noted, notes reviewed, remains intubated and sedated, hypotension on pressors, no further paroxysmal atrial fibrillation noted remains in sinus rhythm, remains off of A/C History of Present Illness: Seen and examined in the ICU. Events noted, notes reviewed, remains intubated and sedated, hypotension on pressors, no further paroxysmal atrial fibrillation noted remains in sinus rhythm, remains off of A/C Ideally patient should be re-anticoagulated unless it is absolutely contraindicated Heparin or resume Eliquis If patient remains intubated plan to proceed with diagnostic LUBNA for evaluation of valvular structure, specially with presumptive diagnosis of endocarditis - Current Medication List Current Medications Acetaminophen (Tylenol -) 650 mg PO Q6H PRN PRN Reason: FEVER Albuterol Sulfate (Ventolin 0.083% Nebulizer Soln -) 1 amp NEB Q4H PRN PRN Reason: SHORT OF BREATH/WHEEZING Albuterol/Ipratropium (Duoneb -) 1 amp NEB RQID TA Last Admin: 04/24/18 20:50 Dose: 1 amp Chlorhexidine Gluconate (Hibiclens For Decolonization -) 1 applic TP HS TA Last Admin: 04/25/18 02:35 Dose: Not Given Hydrocortisone Sodium Succinate (Solu-Cortef -) 50 mg IVPB Q6H-IV TA Last Admin: 04/25/18 03:30 Dose: 50 mg Meropenem 1 gm/ Dextrose 100 mls @ 200 mls/hr IVPB Q8H-IV TA Last Admin: 04/25/18 02:35 Dose: 200 mls/hr Norepinephrine Bitartrate 8, (000 mcg/ Dextrose) 500 mls @ 18.75 mls/hr IV TITR TA; Protocol Last Titration: 04/25/18 08:00 Dose: 2 mcg/min, 7.5 mls/hr Midazolam HCl 100 mg/ Sodium (Chloride) 100 mls @ 1 mls/hr IVPB TITR TA; Protocol Last Admin: 04/25/18 07:01 Dose: 6 mg/hr, 6 mls/hr Sodium Chloride (Normal Saline -) 1,000 mls @ 75 mls/hr IV ASDIR TA Last Admin: 04/25/18 05:49 Dose: 75 mls/hr Famotidine/Sodium Chloride (Pepcid 20 Mg Premixed Ivpb -) 20 mg in 50 mls @ 100 mls/hr IVPB BID [facility] Last Admin: 04/24/18 21:50 Dose: 100 mls/hr Daptomycin 500 mg/ Sodium (Chloride) 50 mls @ 100 mls/hr IVPB DAILY [facility]; Protocol Potassium Chloride (Potassium Chloride 10 Meq Premix Ivpb -) 10 meq in 100 mls @ 100 mls/hr IVPB Q60M [facility] Stop: 04/25/18 12:14 Insulin Aspart (Novolog Vial Sliding Scale -) 1 vial SQ ACHS [facility]; Protocol Last Admin: 04/25/18 06:09 Dose: Not Given Magnesium Sulfate (Magnesium Sulfate) 1 gm IVPB ONCE ONE Stop: 04/25/18 08:31 Mupirocin (Bactroban Ointment (For Decolonization) -) 1 applic NS BID [facility] Stop: 04/28/18 21:59 Last Admin: 04/24/18 22:00 Dose: 1 appful - Review of Systems Unable to obtain - Objective Vital Signs: Last Vital Signs Temp Pulse Resp BP Pulse Ox 98.9 F 81 18 99/65 93 L 04/25/18 06:00 04/25/18 08:00 04/25/18 08:00 04/25/18 08:00 04/25/18 00:46 Intake & Output 04/22/18 04/23/18 04/24/18 04/25/18 23:59 23:59 23:59 23:59 Intake Total 3400 3840 660 Output Total 700 2550 300 Balance 2700 1290 360 Weight 131 lb 13.383 oz 130 lb 130 lb Neck: Supple Negative JVD Cardiovascular: S1 S2 Regular Rate Rhythm Respiratory: Diminished breath sounds Bilaterally Scattered Rhonchi Gastrointestinal: Soft Benign Normal Bowel Sounds Ext: Negative Edema Labs: CBC, BMP 04/24/18 05:15 04/24/18 05:15 No blood test from this AM Assessment/Plan ASSESSMENT: 1. Acute on Chronic Hypoxic Respiratory Failure referable to 2. Acute on chronic class II-III NYHA classification LV failure related to diastolic LV dysfunction, probably related to volume overload IV fluids and blood transfusion, resolving 3. 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 Fever, hypotension (on pressors) related to sepsis syndrome, history of MRSA bacteremia of unclear source, with splenic infarct, endocarditis is a suspect 5. Advanced chronic obstructive pulmonary disease on home oxygen therapy with Pulmonary HTN 6. Epistaxis, prior history requiring intervention 7. Anemia related to above in addition neutropenia/thrombocytopenia etiology to be determined 8. Paroxysmal atrial fibrillation with [id number] score of 2 on A/C with DOAC's/ Eliquis (A/C withheld), recurrent arrhythmia resolved 9. HTN, currently hypotensive on pressors 10. Hypercholesterolemia 11. 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 Resume Cardizem, pending hemodynamics improvement resolution of hypotension 2. Continue to withhold Diovan, pending hemodynamics improvement resolution of hypotension 3. Resume A/C with Eliquis with caution considering the above noted anemia and thrombocytopenia, provided hemostasis is achieved unless it is absolutely contraindicated 4. As outlined in prior note if recurrent arrhythmia may consider antiarrhythmics/Amiodarone 5. Continue Lipitor 6. Obtain labs from this AM 7. Transfuse as needed to maintain Hg equal or > 8.0 8. Pressors and titration to off as tolerated 9. Antibiotics course as per ID service/primary team 10. As outlined above if patient remains intubated plan to proceed with diagnostic LUBNA for evaluation of valvular structure, specially with presumptive diagnosis of endocarditis Ashley Bojorquez MD
[2018-04-25] MEDS: MAGNESIUM SULF 50% (8.12 MEQ/2 ML-1 GM VIAL) IVPB ONE ×2 (08:26→08:55)
[2018-04-25] MEDS: ALBUTEROL SO4 2.5/IPRATROPIUM 0.5 INH SOL 3 ML VIAL.NEB. NEB SCH ×4 (08:35→20:10)
[2018-04-25] MEDS ORDERED: PT OWN MED DRAWER 7, Y5N ONE ×2 (09:02→11:21)
[2018-04-25] MEDS: MUPIROCIN 2% TOPICAL OINTMENT FOR DECOLONIZATION NS SCH ×2 (09:05→22:00)
[2018-04-25] MEDS: FAMOTIDINE 20 MG/50 ML IVPB 20 MG/50 ML MG IVPB SCH ×2 (09:05→22:00)
[2018-04-25] MEDS ORDERED: KCL 10 MEQ IVPB 10 MEQ/100 ML INFUS.BAG IVPB SCH (09:15)
[2018-04-25 09:19] LABS: BASO % 0.2 % (0-2.0); HEMATOCRIT 27.5 % (35.4-49); HEMOGLOBIN 9.7 GM/dL (11.7-16.9); LYMPH % 2.1 % (8-40); MCH 31.7 pg (25.7-33.7); MCHC 35.3 g/dl (32.0-35.9); MEAN CELL VOLUME 89.7 fl (80-96); MEAN PLT VOLUME 9.7 fl (7.5-11.1); MONO % 3.3 % (3.8-10.2); NEUT % 94.4 % (42.8-82.8); PLATELET COUNT 70 K/MM3 (134-434); RBC 3.06 M/mm3 (4.00-5.60); RDW 16.3 % (11.9-15.9)
[2018-04-25 09:35] LABS: ANION GAP 7 MMOL/L (8-16); BLOOD UREA NITROGEN 18 mg/dL (7-18); CALCIUM 7.6 mg/dL (8.5-10.1); CHLORIDE 102 mmol/L (98-107); CO2 31 mmol/L (21-32); CREATININE 0.3 mg/dL (0.55-1.3); GLUCOSE,RANDOM 118 mg/dL (74-106); MAGNESIUM 2.3 mg/dL (1.8-2.4); PHOSPHOROUS 1.7 mg/dL (2.5-4.9); POTASSIUM 3.7 mmol/L (3.5-5.1); SODIUM 139 mmol/L (136-145)
--- NOTE | 2018-04-25 09:57 | PN ---
Progress Note, Physician - Current Medication List Current Medications: Active Medications Acetaminophen (Tylenol -) 650 mg PO Q6H PRN PRN Reason: FEVER Albuterol Sulfate (Ventolin 0.083% Nebulizer Soln -) 1 amp NEB Q4H PRN PRN Reason: SHORT OF BREATH/WHEEZING Albuterol/Ipratropium (Duoneb -) 1 amp NEB RQID TA Last Admin: 04/25/18 08:35 Dose: 1 amp Chlorhexidine Gluconate (Hibiclens For Decolonization -) 1 applic TP HS TA Last Admin: 04/25/18 02:35 Dose: Not Given Hydrocortisone Sodium Succinate (Solu-Cortef -) 50 mg IVPB Q6H-IV TA Last Admin: 04/25/18 09:04 Dose: 50 mg Meropenem 1 gm/ Dextrose 100 mls @ 200 mls/hr IVPB Q8H-IV TA Last Admin: 04/25/18 09:05 Dose: 200 mls/hr Norepinephrine Bitartrate 8, (000 mcg/ Dextrose) 500 mls @ 18.75 mls/hr IV TITR TA; Protocol Last Titration: 04/25/18 08:00 Dose: 2 mcg/min, 7.5 mls/hr Midazolam HCl 100 mg/ Sodium (Chloride) 100 mls @ 1 mls/hr IVPB TITR TA; Protocol Last Admin: 04/25/18 07:01 Dose: 6 mg/hr, 6 mls/hr Sodium Chloride (Normal Saline -) 1,000 mls @ 75 mls/hr IV ASDIR TA Last Admin: 04/25/18 05:49 Dose: 75 mls/hr Famotidine/Sodium Chloride (Pepcid 20 Mg Premixed Ivpb -) 20 mg in 50 mls @ 100 mls/hr IVPB BID TA Last Admin: 04/25/18 09:05 Dose: 100 mls/hr Daptomycin 500 mg/ Sodium (Chloride) 50 mls @ 100 mls/hr IVPB DAILY [facility]; Protocol Potassium Phosphate 30 mm/ (Sodium Chloride) 260 mls @ 62.5 mls/hr IVPB ONCE ONE Stop: 04/25/18 15:09 Insulin Aspart (Novolog Vial Sliding Scale -) 1 vial SQ ACHS [facility]; Protocol Last Admin: 04/25/18 06:09 Dose: Not Given Mupirocin (Bactroban Ointment (For Decolonization) -) 1 applic NS BID TA Stop: 04/28/18 21:59 Last Admin: 04/25/18 09:05 Dose: 1 applic - Objective Vital Signs: Vital Signs Temperature 98.9 F 04/25/18 06:00 Pulse Rate 81 04/25/18 08:00 Respiratory Rate 18 04/25/18 08:40 Blood Pressure 99/65 04/25/18 08:00 O2 Sat by Pulse Oximetry (%) 93 L 04/25/18 00:46 Cardiovascular: Yes: Tachycardia, S1, S2 Respiratory: Yes: Diminished, Mechanically Ventilated Neurological: Yes: Alert Labs: CBC, BMP 04/25/18 08:55 04/25/18 08:55 INR, PTT INR 1.28 (0.83-1.09) H 04/24/18 05:15 Problem List - Problems (1) Fever Assessment/Plan: - cultures ID consult isolation for MRSA ivf ICU abx per id Orders 04/23/18 18:45 Meropenem [Merrem (Restricted To Id) -] 1 gm Dextrose 5%-Water [Dextrose 5% Water Minibag 100ML] 100 ml IVPB Q8H-IV 04/25/18 10:00 Daptomycin [Cubicin (Restricted To Id) -] 500 mg Sodium Chloride [Normal Saline -] 50 ml IVPB DAILY Microbiology 04/23/18 12:52 Blood Culture - Preliminary Blood - Peripheral Venous NO GROWTH OBTAINED AFTER 24 HOURS, INCUBATION TO CONTINUE FOR 4 DAYS. 04/23/18 11:30 Blood Culture - Preliminary Blood - Peripheral Venous NO GROWTH OBTAINED AFTER 24 HOURS, INCUBATION TO CONTINUE FOR 4 DAYS. 04/23/18 13:00 Urine Culture - Final Urine - Urine Clean Catch NO GROWTH OBTAINED Code(s): R50.9 - FEVER, UNSPECIFIED (2) Acute and chronic respiratory failure with hypercapnia Assessment/Plan: Vent support pulm oxygen bronchodilators weaning per pulm Code(s): J96.22 - ACUTE AND CHRONIC RESPIRATORY FAILURE WITH HYPERCAPNIA (3) Anemia Assessment/Plan: Monitor Laboratory Tests 04/24/18 04/25/18 05:15 08:55 Hgb 10.9 L 9.7 L Code(s): D64.9 - ANEMIA, UNSPECIFIED Qualifiers: Anemia type: unspecified type Qualified Code(s): D64.9 - Anemia, unspecified (4) COPD (chronic obstructive pulmonary disease) Assessment/Plan: -As Above Code(s): J44.9 - CHRONIC OBSTRUCTIVE PULMONARY DISEASE, UNSPECIFIED Qualifiers: COPD type: unspecified COPD Qualified Code(s): J44.9 - Chronic obstructive pulmonary disease, unspecified (5) MRSA bacteremia Code(s): R78.81 - BACTEREMIA (6) Nasal hemorrhage Code(s): R04.0 - EPISTAXIS (7) Afib Code(s): I48.91 - UNSPECIFIED ATRIAL FIBRILLATION
[2018-04-25] MEDS: DAPTOMYCIN 500 MG in SODIUM CHLORIDE 50 ML IVPB SCH (10:25)
[2018-04-25 10:41] LABS: ARTERIAL BLD GAS O2 SATURATION 94.9 % (90-98.9); ARTERIAL BLOOD GAS PO2 70.5 mmHg (80-100); ARTERIAL BLOOD GAS pH 7.45 (7.35-7.45)
[2018-04-25] MEDS ORDERED: POTASSIUM PHOSPHATE 30 MM in SODIUM CHLORIDE 250 ML IVPB ONE (11:00)
[2018-04-25 11:09] LABS: ALLENS TEST POSITIVE
--- NOTE | 2018-04-25 12:03 | PN ---
Teaching Attending Note Name of Resident: Celestine Carrillo ATTENDING PHYSICIAN STATEMENT I saw and evaluated the patient. I reviewed the resident's note and discussed the case with the resident. I agree with the resident's findings and plan as documented. SUBJECTIVE: Pt seen and examined in the ICU. Remains intubated, sedated on lower dose of levophed gtt. No fevers recorded. OBJECTIVE: Vital Signs Period Temp Pulse Resp BP Sys/Morgan Pulse Ox Last 24 Hr 98.9 F-99.1 F 68-104 18-24 92-111/54-68 93-98 Intake & Output 04/22/18 04/23/18 04/24/18 04/25/18 23:59 23:59 23:59 23:59 Intake Total 3400 3840 660 Output Total 700 2550 300 Balance 2700 1290 360 Weight 59.8 kg 58.967 kg 58.967 kg Gen: intubated, sedated Heart: RRR Lung: decreased breath sounds at the bases Abd: soft, nontender Ext: no edema CBC, BMP 04/25/18 08:55 04/25/18 08:55 Active Medications Acetaminophen (Tylenol -) 650 mg PO Q6H PRN PRN Reason: FEVER Albuterol Sulfate (Ventolin 0.083% Nebulizer Soln -) 1 amp NEB Q4H PRN PRN Reason: SHORT OF BREATH/WHEEZING Albuterol/Ipratropium (Duoneb -) 1 amp NEB RQID TA Last Admin: 04/25/18 08:35 Dose: 1 amp Chlorhexidine Gluconate (Hibiclens For Decolonization -) 1 applic TP HS TA Last Admin: 04/25/18 02:35 Dose: Not Given Hydrocortisone Sodium Succinate (Solu-Cortef -) 50 mg IVPB Q6H-IV TA Last Admin: 04/25/18 09:04 Dose: 50 mg Meropenem 1 gm/ Dextrose 100 mls @ 200 mls/hr IVPB Q8H-IV TA Last Admin: 04/25/18 09:05 Dose: 200 mls/hr Norepinephrine Bitartrate 8, (000 mcg/ Dextrose) 500 mls @ 18.75 mls/hr IV TITR TA; Protocol Last Titration: 04/25/18 10:50 Dose: 0 mcg/min, 0 mls/hr Midazolam HCl 100 mg/ Sodium (Chloride) 100 mls @ 1 mls/hr IVPB TITR TA; Protocol Last Admin: 04/25/18 07:01 Dose: 6 mg/hr, 6 mls/hr Sodium Chloride (Normal Saline -) 1,000 mls @ 75 mls/hr IV ASDIR [facility] Last Admin: 04/25/18 05:49 Dose: 75 mls/hr Famotidine/Sodium Chloride (Pepcid 20 Mg Premixed Ivpb -) 20 mg in 50 mls @ 100 mls/hr IVPB BID [facility] Last Admin: 04/25/18 09:05 Dose: 100 mls/hr Daptomycin 500 mg/ Sodium (Chloride) 50 mls @ 100 mls/hr IVPB DAILY [facility]; Protocol Last Admin: 04/25/18 10:25 Dose: 100 mls/hr Potassium Phosphate 30 mm/ (Sodium Chloride) 260 mls @ 62.5 mls/hr IVPB ONCE ONE Stop: 04/25/18 15:09 Last Admin: 04/25/18 11:46 Dose: 62.5 mls/hr Insulin Aspart (Novolog Vial Sliding Scale -) 1 vial SQ ACHS [facility]; Protocol Last Admin: 04/25/18 10:38 Dose: 2 units Mupirocin (Bactroban Ointment (For Decolonization) -) 1 applic NS BID [facility] Stop: 04/28/18 21:59 Last Admin: 04/25/18 09:05 Dose: 1 applic ASSESSMENT AND PLAN: Acute on Chronic Hypoxic and Hypercapneic Respiratory Failure UTI r/o Bacteremia Septic Shock Lactic Acidosis Epistaxis Acute on Chronic Diastolic Heart Failure Thrombocytopenia CAD COPD Pulmonary HTN Paroxysmal Atrial Fibrillation HTN Hypercholesterolemia - continue antibiotics - f/u cultures - for LUBNA to rule out vegetations and to assess valve function - PICC line removed - IVF - titrate off pressors, remove femoral line - monitor urine output, creatinine - monitor CBC - holding anticoagulation - continue empiric steroids - inhaled bronchodilators - O2 to keep SpO2 >90% - replete lytes - continue volume assist control - keep intubated until after LUBNA - sedate for vent synchrony - DVT/GI prophylaxis - ICU monitoring critical care time spent in reviewing chart, evaluating patient and formulating plan 35 min
--- NOTE | 2018-04-25 12:16 | PN ---
Progress Note (short form) - Note Progress Note: awake and alert pressors tapered off remains intubated Vital Signs Period Temp Pulse Resp BP Sys/Morgan Pulse Ox Last 24 Hr 98.9 F-99.1 F 68-104 18-24 92-111/54-68 93-98 cor-rrr lungs clear abd soft,nt ext no edema CBC, BMP 04/25/18 08:55 04/25/18 08:55 Microbiology 04/23/18 11:30 Blood - Peripheral Venous Blood Culture - Preliminary NO GROWTH OBTAINED AFTER 48 HOURS, INCUBATION TO CONTINUE FOR 3 DAYS. 04/23/18 12:52 Blood - Peripheral Venous Blood Culture - Preliminary NO GROWTH OBTAINED AFTER 24 HOURS, INCUBATION TO CONTINUE FOR 4 DAYS. 04/23/18 13:00 Urine - Urine Clean Catch Urine Culture - Final NO GROWTH OBTAINED Current Medications Acetaminophen (Tylenol -) 650 mg PO Q6H PRN PRN Reason: FEVER Albuterol Sulfate (Ventolin 0.083% Nebulizer Soln -) 1 amp NEB Q4H PRN PRN Reason: SHORT OF BREATH/WHEEZING Albuterol/Ipratropium (Duoneb -) 1 amp NEB RQID TA Last Admin: 04/25/18 08:35 Dose: 1 amp Chlorhexidine Gluconate (Hibiclens For Decolonization -) 1 applic TP HS TA Last Admin: 04/25/18 02:35 Dose: Not Given Hydrocortisone Sodium Succinate (Solu-Cortef -) 50 mg IVPB Q6H-IV TA Last Admin: 04/25/18 09:04 Dose: 50 mg Meropenem 1 gm/ Dextrose 100 mls @ 200 mls/hr IVPB Q8H-IV TA Last Admin: 04/25/18 09:05 Dose: 200 mls/hr Norepinephrine Bitartrate 8, (000 mcg/ Dextrose) 500 mls @ 18.75 mls/hr IV TITR TA; Protocol Last Titration: 04/25/18 10:50 Dose: 0 mcg/min, 0 mls/hr Midazolam HCl 100 mg/ Sodium (Chloride) 100 mls @ 1 mls/hr IVPB TITR TA; Protocol Last Admin: 04/25/18 07:01 Dose: 6 mg/hr, 6 mls/hr Sodium Chloride (Normal Saline -) 1,000 mls @ 75 mls/hr IV ASDIR TA Last Admin: 04/25/18 05:49 Dose: 75 mls/hr Famotidine/Sodium Chloride (Pepcid 20 Mg Premixed Ivpb -) 20 mg in 50 mls @ 100 mls/hr IVPB BID [facility] Last Admin: 04/25/18 09:05 Dose: 100 mls/hr Daptomycin 500 mg/ Sodium (Chloride) 50 mls @ 100 mls/hr IVPB DAILY [facility]; Protocol Last Admin: 04/25/18 10:25 Dose: 100 mls/hr Potassium Phosphate 30 mm/ (Sodium Chloride) 260 mls @ 62.5 mls/hr IVPB ONCE ONE Stop: 04/25/18 15:09 Last Admin: 04/25/18 11:46 Dose: 62.5 mls/hr Insulin Aspart (Novolog Vial Sliding Scale -) 1 vial SQ ACHS [facility]; Protocol Last Admin: 04/25/18 10:38 Dose: 2 units Mupirocin (Bactroban Ointment (For Decolonization) -) 1 applic NS BID [facility] Stop: 04/28/18 21:59 Last Admin: 04/25/18 09:05 Dose: 1 applic a/p sepsis with respiratory failure ?source history of MRSA bacteremia- presumed endocarditis afib endstage copd cultures negative source of sepsis unclear improved- off pressors, alert continue daptomycin and meropenem ct scan chest/abd/pelvis d/w dr sun d/w at bedside over 35 minutes spent in the care of this critically ill ICU patient
[2018-04-25 12:17] LABS: ANISOCYTOSIS 1+; MACROCYTOSIS 0; PLATELET ESTIMATE DECREASED
--- NOTE | 2018-04-25 16:17 | PN ---
Physical Exam: SUBJECTIVE: Pt seen and examined in the ICU. Remains intubated, sedated on lower dose of levophed gtt. No fevers recorded. OBJECTIVE: Vital Signs Period Temp Pulse Resp BP Sys/Morgan Pulse Ox Last 24 Hr 98.9 F-99.1 F 68-104 18-24 92-111/54-68 93-100 GENERAL: sedated and intubated HEENT: NCAT packing present on left side of nose., et tube present NECK: Trachea midline, full range of motion, supple. LUNGS: Breath sounds equal, clear to auscultation bilaterally, no wheezes, no crackles, no accessory muscle use. HEART: Regular rate and rhythm, S1, S2 normal ABDOMEN: Soft, nontender, nondistended, normoactive bowel sounds, no guarding, no rebound, EXTREMITIES: 2+ pulses, warm, well-perfused, no edema. NEUROLOGICAL: unobtainable SKIN: Warm, dry, Laboratory Results - last 24 hr 04/24/18 04/25/18 04/25/18 05:15 08:55 08:55 WBC 9.0 RBC 3.06 L Hgb 9.7 L Hct 27.5 L D MCV 89.7 MCH 31.7 MCHC 35.3 RDW 16.3 H Plt Count 70 L MPV 9.7 Absolute Neuts (auto) 8.5 H Neutrophils % 94.4 H Neutrophils % (Manual) 81.8 Band Neutrophils % 12.1 Lymphocytes % 2.1 L D Lymphocytes % (Manual) 1.0 L D Monocytes % 3.3 L D Monocytes % (Manual) 3 L Eosinophils % 0.0 D Eosinophils % (Manual) 0.0 Basophils % 0.2 Basophils % (Manual) 0.0 Myelocytes % (Man) 1 D Promyelocytes % (Man) 0 Blast Cells % (Manual) 0 Nucleated RBC % 1 H Metamyelocytes 0 Hypochromia 0 Platelet Estimate Decreased Polychromasia 1+ Poikilocytosis 0 Anisocytosis 1+ Microcytosis 0 Macrocytosis 0 Puncture Site ABG pH ABG pCO2 at Pt Temp ABG pO2 at Pt Temp ABG HCO3 ABG O2 Sat (Measured) ABG O2 Content ABG Base Excess Pardeep Test O2 Delivery Device Oxygen Flow Rate Vent Mode Vent Rate Mechanical Rate PEEP Pressure Support Vent Sodium 139 Potassium 3.7 Chloride 102 Carbon Dioxide 31 Anion Gap 7 L BUN 18 Creatinine 0.3 L Creat Clearance w eGFR > 60 Random Glucose 118 H Calcium 7.6 L Phosphorus 1.7 L Magnesium 2.3 Iron 56 TIBC 230 L Iron Saturation 24 04/25/18 10:10 WBC RBC Hgb Hct MCV MCH MCHC RDW Plt Count MPV Absolute Neuts (auto) Neutrophils % Neutrophils % (Manual) Band Neutrophils % Lymphocytes % Lymphocytes % (Manual) Monocytes % Monocytes % (Manual) Eosinophils % Eosinophils % (Manual) Basophils % Basophils % (Manual) Myelocytes % (Man) Promyelocytes % (Man) Blast Cells % (Manual) Nucleated RBC % Metamyelocytes Hypochromia Platelet Estimate Polychromasia Poikilocytosis Anisocytosis Microcytosis Macrocytosis Puncture Site Left radial ABG pH 7.45 ABG pCO2 at Pt Temp 46.0 H D ABG pO2 at Pt Temp 70.5 L D ABG HCO3 31.3 H ABG O2 Sat (Measured) 94.9 ABG O2 Content 8.2 L* ABG Base Excess 7.0 H Pardeep Test Positive O2 Delivery Device Mec vent Oxygen Flow Rate 35% Vent Mode A/c Vent Rate 18 Mechanical Rate Yes PEEP 5.0 Pressure Support Vent 450 Sodium Potassium Chloride Carbon Dioxide Anion Gap BUN Creatinine Creat Clearance w eGFR Random Glucose Calcium Phosphorus Magnesium Iron TIBC Iron Saturation Active Medications Generic Name Dose Route Start Last Admin Trade Name Freq PRN Reason Stop Dose Admin Acetaminophen 650 mg 04/23/18 13:40 Tylenol - PO Q6H PRN FEVER Albuterol Sulfate 1 amp 04/24/18 05:01 Ventolin 0.083% Nebulizer Soln - NEB Q4H PRN SHORT OF BREATH/WHEEZING Albuterol/Ipratropium 1 amp 04/24/18 08:00 04/25/18 12:51 Duoneb - NEB 1 amp RQID TA Administration Chlorhexidine Gluconate 1 applic 04/23/18 22:00 04/25/18 02:35 Hibiclens For Decolonization - TP Not Given HS TA Chlorhexidine Gluconate 15 ml 04/25/18 22:00 Peridex - MM BID TA Hydrocortisone Sodium Succinate 50 mg 04/24/18 09:45 04/25/18 15:48 Solu-Cortef - IVPB 50 mg Q6H-IV TA Administration Meropenem 1 gm/ Dextrose 100 mls @ 200 mls/hr 04/23/18 18:45 04/25/18 09:05 IVPB 200 mls/hr Q8H-IV TA Administration Norepinephrine Bitartrate 8, 500 mls @ 18.75 mls/hr 04/23/18 22:45 04/25/18 10:50 000 mcg/ Dextrose IV 0 mcg/min TITR TA 0 mls/hr Titration Protocol 5 MCG/MIN Midazolam HCl 100 mg/ Sodium 100 mls @ 1 mls/hr 04/24/18 04:15 04/25/18 07:01 Chloride IVPB 6 mg/hr TITR TA 6 mls/hr Administration Protocol 1 MG/HR Sodium Chloride 1,000 mls @ 75 mls/hr 04/24/18 05:30 04/25/18 05:49 Normal Saline - IV 75 mls/hr ASDIR TA Administration Famotidine/Sodium Chloride 20 mg in 50 mls @ 100 mls/hr 04/24/18 10:00 09:05 Pepcid 20 Mg Premixed Ivpb - IVPB 100 mls/hr BID TA Administration Daptomycin 500 mg/ Sodium 50 mls @ 100 mls/hr 04/25/18 10:00 04/25/18 10:25 Chloride IVPB 100 mls/hr DAILY TA Administration Protocol Insulin Aspart 1 vial 04/24/18 11:00 04/25/18 10:38 Novolog Vial Sliding Scale - SQ 2 units ACHS TA Administration Protocol Mupirocin 1 applic 04/23/18 22:00 04/25/18 09:05 Bactroban Ointment (For Decolonization) - NS 04/28/18 21:59 1 applic BID TA Administration ASSESSMENT/PLAN: 67 yo M with history of COPD on home oxygen (3L), Interstitial lung disease, HTN , HLD, CHF, diastolic LV dysfunction, [place], CAD, GERD, hiatal hernia, recent dx of Afib with RVR on Eliquis (last dose 04/22 AM), presenting to the ER with a complaint of epistaxis, hypotension and tachycardia. Now admitted to ICU for septic shock. Pt was recently admitted for MRSA bacteremia, currently receiving Daptomycin via Right UE PICC line. Septic Shock - likely from urosepsis monitor intake/ output maintain urine output of 1ml/kg/hr to 0.5ml/kg/hr monitor CVP. continue IVF Keep MAP> 65 sher cath titrated off pressors, femoral line removed antibiotics as per ID. on daptomycin and meropenem blood and urine culture neg f/u sputum cx source of sepsis unclear - ct scan chest/abd/pelvis ID on case picc line removed on hydrocortisone 50 q6h h/o MRSA Bacteremia with suspicion of endocarditis, last admission LUBNA to rule out vegetations and to assess valve function Plan to do it on thursday. Epistaxis with supratheraputic inr and thrombocytopenia Pt had similar episode last admission, on Eliquis 5mg PO daily for Afib, last dose 04/23/18 s/p 2 U prbc hb 7.9----> 10.9....9.7 INR decreased from 1.6 to 1.2 Hold Eliquis Keep nasal packing until thursday ENT on case keep head end elevated Acute on Chronic hypoxic hypercapnic respiratory failure on ventilator support O2 to keep SpO2 >90% continue volume assist control keep intubated until after LUBNA sedate for vent synchrony continue duoneb chest physical therapy daily CXR/ABG Thrombocytopenia, baseline around 130-140 and since 03/02/18 has been decreasing to 80s, likely 2/[address] abdomen done in previous admission shows normal liver and normal size of spleen H/O Diastolic LV dysfunc, CHF, phx [place], CAD, Afib w/ RVR, htn Last ECHO (03/31/18) - normal EF, L ventricular function normal, severe MR, moderate TR cardiac monitoring rate control... s/p ami 150 push. In sinus rhythm now Trop: neg hold AC because of epistaxis cardiology on case H/O COPD, no wheezing on ventilator support continue nebulizer for now. H/O DM BGM ISS hold oral hypoglycemic F/E/N NS 75 ml/hr electrolyte: replete prn NPO for now--- will avoid ng tube because of postnasal bleed PPX DVT, on SCDs now GI, on pepcid bid Code Status: full code Dispo: Continue ICU monitoring. LUBNA almita Visit type - Emergency Visit Emergency Visit: Yes ED Registration Date: 04/23/18 Care time: The patient presented to the Emergency Department on the above date and was hospitalized for further evaluation of their emergent condition. - New Patient This patient is new to me today: Yes Date on this admission: 04/25/18 - Critical Care Critical Care patient: Yes Total Critical Care Time (in minutes): 38 Critical Care Statement: The care of this patient involved high complexity decision making to prevent further life threatening deterioration of the patient 's condition and/or to evaluate & treat vital organ system(s) failure or risk of failure.
[2018-04-25] MEDS: CHLORHEXIDINE GLUCONATE 0.12% 15ML CUP MM SCH (22:00)
[2018-04-26] MEDS: CHLORHEXIDINE GLUCONATE 4% CLEANSER FOR DECOLONIZATION TP SCH ×2 (02:43→21:03)
[2018-04-26] MEDS ORDERED: PT OWN MED DRAWER 7, Y5N ONE ×6 (02:53→20:22)
[2018-04-26] MEDS: MEROPENEM 1 GM in DEXTROSE 5%-WATER 100 ML IVPB SCH ×3 (02:59→17:11)
[2018-04-26] MEDS: HYDROCORTISONE SOD SUCCINATE 100 MG/2 ML VIAL IVPB SCH ×3 (03:00→15:47)
[2018-04-26] MEDS: SODIUM CHLORIDE 1,000 ML IV SCH ×2 (03:05→07:40)
[2018-04-26 05:49] LABS: BASO % 0.1 % (0-2.0); EOS % 0.1 % (0-4.5); HEMATOCRIT 27.8 % (35.4-49); HEMOGLOBIN 9.1 GM/dL (11.7-16.9); LYMPH % 2.5 % (8-40); MCH 30.1 pg (25.7-33.7); MCHC 32.9 g/dl (32.0-35.9); MEAN CELL VOLUME 91.6 fl (80-96); MEAN PLT VOLUME 8.8 fl (7.5-11.1); MONO % 3.5 % (3.8-10.2); NEUT % 93.8 % (42.8-82.8); PLATELET COUNT 57 K/MM3 (134-434); RBC 3.04 M/mm3 (4.00-5.60); RDW 16.2 % (11.9-15.9); WHITE BLOOD COUNT 8.1 K/mm3 (4.0-10.0)
[2018-04-26 06:02] LABS: INR 1.16 (0.83-1.09); PROTHROMBIN TIME (PATIENT) 13.7 SEC (9.7-13.0)
[2018-04-26 06:04] LABS: ACTIVATED PTT 18.4 SECONDS (25.2-36.5)
[2018-04-26] MEDS: MIDAZOLAM 100 MG in SODIUM CHLORIDE 100 ML IVPB SCH ×2 (06:28→09:25)
[2018-04-26 06:48] LABS: ALBUMIN 1.9 g/dl (3.4-5.0); ALK PHOS 58 U/L (45-117); ANION GAP 7 MMOL/L (8-16); BILIRUBIN,TOTAL 0.4 mg/dL (0.2-1); BLOOD UREA NITROGEN 17 mg/dL (7-18); CALCIUM 7.9 mg/dL (8.5-10.1); CHLORIDE 102 mmol/L (98-107); CO2 30 mmol/L (21-32); CREATININE 0.2 mg/dL (0.55-1.3); GLUCOSE,RANDOM 89 mg/dL (74-106); MAGNESIUM 2.3 mg/dL (1.8-2.4); PHOSPHOROUS 1.9 mg/dL (2.5-4.9); SGOT/AST 16 U/L (15-37); SGPT/ALT 32 U/L (13-61); SODIUM 138 mmol/L (136-145); TOT PROT 4.7 g/dl (6.4-8.2)
[2018-04-26 07:21] LABS: ARTERIAL BLD GAS O2 SATURATION 98.2 % (90-98.9); ARTERIAL BLOOD GAS BASE EXCESS 6.8 meq/l (-2-2); ARTERIAL BLOOD GAS PCO2 41.7 mmHg (35-45); ARTERIAL BLOOD GAS pH 7.48 (7.35-7.45)
[2018-04-26 07:32] LABS: ALLENS TEST POSITIVE
[2018-04-26] MEDS: INSULIN SLIDING SCALE (NOVOLOG) 1 VIAL SQ SCH ×5 (07:41→22:20)
[2018-04-26] MEDS ORDERED: MIDAZOLAM 100 MG/100 ML MG IVPB ONE ×2 (07:55→21:12)
[2018-04-26] MEDS: ALBUTEROL SO4 2.5/IPRATROPIUM 0.5 INH SOL 3 ML VIAL.NEB. NEB SCH ×4 (07:55→21:33)
--- NOTE | 2018-04-26 09:03 | PN ---
Progress Note (short form) - Note Progress Note: remains intubated afebrile no pressors Vital Signs Period Temp Pulse Resp BP Sys/Morgan Pulse Ox Last 24 Hr 97 F-98.8 F 64-89 18-21 92-112/51-74 95-100 intubated cor-rrr lungs clear abd soft,nt ext no edema CBC, BMP 04/26/18 05:30 04/26/18 05:30 Microbiology 04/23/18 12:52 Blood - Peripheral Venous Blood Culture - Preliminary NO GROWTH OBTAINED AFTER 48 HOURS, INCUBATION TO CONTINUE FOR 3 DAYS. 04/24/18 18:00 Sputum - Endotrachea Suction/Ventilator Gram Stain - Final 04/23/18 11:30 Blood - Peripheral Venous Blood Culture - Preliminary NO GROWTH OBTAINED AFTER 48 HOURS, INCUBATION TO CONTINUE FOR 3 DAYS. 04/23/18 13:00 Urine - Urine Clean Catch Urine Culture - Final NO GROWTH OBTAINED a/p sepsis with respiratory failure ?source history of MRSA bacteremia- presumed endocarditis-last positive blood culture - afib endstage copd persistent thrombocytopenia cultures negative source of sepsis unclear improved- off pressors, alert continue daptomycin and meropenem-to adjust antibiotics after review of scans today ct scan chest/abd/pelvis results pending- will review with radiology for LUBNA today
[2018-04-26] MEDS: FAMOTIDINE 20 MG/50 ML IVPB 20 MG/50 ML MG IVPB SCH ×2 (09:27→21:03)
[2018-04-26] MEDS: MUPIROCIN 2% TOPICAL OINTMENT FOR DECOLONIZATION NS SCH ×2 (09:28→21:03)
[2018-04-26] MEDS: CHLORHEXIDINE GLUCONATE 0.12% 15ML CUP MM SCH ×2 (09:28→21:03)
[2018-04-26] MEDS ORDERED: BENZOIN/ALOE VERA/STORAX/TOLU 58 ML BOTTLE ONE (10:22)
--- NOTE | 2018-04-26 10:28 | PN ---
Progress Note, Physician Chief Complaint: EVENTS AND NOTES REVIEWED INTUBATED AWAKE - Current Medication List Current Medications: Active Medications Acetaminophen (Tylenol -) 650 mg PO Q6H PRN PRN Reason: FEVER Albuterol Sulfate (Ventolin 0.083% Nebulizer Soln -) 1 amp NEB Q4H PRN PRN Reason: SHORT OF BREATH/WHEEZING Albuterol/Ipratropium (Duoneb -) 1 amp NEB RQID TA Last Admin: 04/26/18 07:55 Dose: 1 amp Chlorhexidine Gluconate (Hibiclens For Decolonization -) 1 applic TP HS TA Last Admin: 04/26/18 02:43 Dose: Not Given Chlorhexidine Gluconate (Peridex -) 15 ml MM BID TA Last Admin: 04/26/18 09:28 Dose: 15 ml Hydrocortisone Sodium Succinate (Solu-Cortef -) 50 mg IVPB Q6H-IV TA Last Admin: 04/26/18 09:27 Dose: 50 mg Meropenem 1 gm/ Dextrose 100 mls @ 200 mls/hr IVPB Q8H-IV TA Last Admin: 04/26/18 09:27 Dose: 200 mls/hr Midazolam HCl 100 mg/ Sodium (Chloride) 100 mls @ 1 mls/hr IVPB TITR TA; Protocol Last Admin: 04/26/18 09:25 Dose: 8 mg/hr, 8 mls/hr Sodium Chloride (Normal Saline -) 1,000 mls @ 75 mls/hr IV ASDIR TA Last Admin: 04/26/18 07:40 Dose: Not Given Famotidine/Sodium Chloride (Pepcid 20 Mg Premixed Ivpb -) 20 mg in 50 mls @ 100 mls/hr IVPB BID TA Last Admin: 04/26/18 09:27 Dose: 100 mls/hr Daptomycin 500 mg/ Sodium (Chloride) 50 mls @ 100 mls/hr IVPB DAILY [facility]; Protocol Last Admin: 04/25/18 10:25 Dose: 100 mls/hr Insulin Aspart (Novolog Vial Sliding Scale -) 1 vial SQ ACHS TA; Protocol Last Admin: 04/26/18 07:41 Dose: Not Given Mupirocin (Bactroban Ointment (For Decolonization) -) 1 applic NS BID TA Stop: 04/28/18 21:59 Last Admin: 04/26/18 09:28 Dose: 1 applic - Objective Vital Signs: Vital Signs Temperature 98.7 F 04/26/18 09:00 Pulse Rate 77 04/26/18 09:00 Respiratory Rate 18 04/26/18 09:00 Blood Pressure 103/63 04/26/18 09:00 O2 Sat by Pulse Oximetry (%) 94 L 04/26/18 09:00 Constitutional: Yes: Mild Distress Cardiovascular: Yes: WNL Respiratory: Yes: Diminished, Mechanically Ventilated Gastrointestinal: Yes: WNL Genitourinary: Yes: Incontinence Musculoskeletal: Yes: Muscle Weakness Extremities: Yes: WNL Edema: No Peripheral Pulses WNL: Yes Wound/Incision: Yes: Clean/Dry Neurological: Yes: WNL Labs: CBC, BMP 04/26/18 05:30 04/26/18 05:30 INR, PTT INR 1.16 (0.83-1.09) H 04/26/18 05:30 Problem List - Problems (1) Afib Code(s): I48.91 - UNSPECIFIED ATRIAL FIBRILLATION (2) Fever Code(s): R50.9 - FEVER, UNSPECIFIED (3) Hypotension Code(s): I95.9 - HYPOTENSION, UNSPECIFIED Qualifiers: Hypotension type: other hypotension type Qualified Code(s): I95.89 - Other hypotension (4) MRSA bacteremia Code(s): R78.81 - BACTEREMIA (5) Tachycardia Code(s): R00.0 - TACHYCARDIA, UNSPECIFIED (6) Acute and chronic respiratory failure Code(s): J96.20 - ACUTE AND CHR RESP FAILURE, UNSP W HYPOXIA OR HYPERCAPNIA Qualifiers: Respiratory failure complication: hypoxia and hypercapnia Qualified Code(s) : J96.21 - Acute and chronic respiratory failure with hypoxia; J96.22 - Acute and chronic respiratory failure with hypercapnia (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
[2018-04-26] MEDS: DAPTOMYCIN 500 MG in SODIUM CHLORIDE 50 ML IVPB SCH (11:12)
[2018-04-26 12:14] LABS: ANISOCYTOSIS 2+; MACROCYTOSIS 0; OVALOCYTE 1+; PLATELET ESTIMATE DECREASED; TARGET CELLS 1+; TEAR DROP CELLS 1+
--- NOTE | 2018-04-26 13:35 | PN ---
Teaching Attending Note Name of Resident: Celestine Carrillo ATTENDING PHYSICIAN STATEMENT I saw and evaluated the patient. I reviewed the resident's note and discussed the case with the resident. I agree with the resident's findings and plan as documented. SUBJECTIVE: Pt seen and examined in the ICU. Remains intubated, sedated. Off pressors. No fevers recorded. OBJECTIVE: Vital Signs Period Temp Pulse Resp BP Sys/Morgan Pulse Ox Last 24 Hr 97 F-98.8 F 64-80 18-21 92-112/51-74 94-100 Intake & Output 04/23/18 04/24/18 04/25/18 04/26/18 23:59 23:59 23:59 23:59 Intake Total 3400 3840 3311 50 Output Total 700 2550 1025 400 Balance 2700 1290 2286 -350 Weight 59.8 kg 58.967 kg 58.967 kg Gen: intubated, sedated Heart: RRR Lung: decreased breath sounds at the bases Abd: soft, nontender Ext: no edema CBC, BMP 04/26/18 05:30 04/26/18 05:30 Active Medications Acetaminophen (Tylenol -) 650 mg PO Q6H PRN PRN Reason: FEVER Albuterol Sulfate (Ventolin 0.083% Nebulizer Soln -) 1 amp NEB Q4H PRN PRN Reason: SHORT OF BREATH/WHEEZING Albuterol/Ipratropium (Duoneb -) 1 amp NEB RQID TA Last Admin: 04/26/18 11:05 Dose: 1 amp Chlorhexidine Gluconate (Hibiclens For Decolonization -) 1 applic TP HS [facility] Last Admin: 04/26/18 02:43 Dose: Not Given Chlorhexidine Gluconate (Peridex -) 15 ml MM BID TA Last Admin: 04/26/18 09:28 Dose: 15 ml Hydrocortisone Sodium Succinate (Solu-Cortef -) 50 mg IVPB Q6H-IV TA Last Admin: 04/26/18 09:27 Dose: 50 mg Meropenem 1 gm/ Dextrose 100 mls @ 200 mls/hr IVPB Q8H-IV TA Last Admin: 04/26/18 09:27 Dose: 200 mls/hr Midazolam HCl 100 mg/ Sodium (Chloride) 100 mls @ 1 mls/hr IVPB TITR TA; Protocol Last Admin: 04/26/18 09:25 Dose: 8 mg/hr, 8 mls/hr Sodium Chloride (Normal Saline -) 1,000 mls @ 75 mls/hr IV ASDIR [facility] Last Admin: 04/26/18 07:40 Dose: Not Given Famotidine/Sodium Chloride (Pepcid 20 Mg Premixed Ivpb -) 20 mg in 50 mls @ 100 mls/hr IVPB BID [facility] Last Admin: 04/26/18 09:27 Dose: 100 mls/hr Daptomycin 500 mg/ Sodium (Chloride) 50 mls @ 100 mls/hr IVPB DAILY TA; Protocol Last Admin: 04/26/18 11:12 Dose: 100 mls/hr Insulin Aspart (Novolog Vial Sliding Scale -) 1 vial SQ ACHS [facility]; Protocol Last Admin: 04/26/18 11:22 Dose: Not Given Mupirocin (Bactroban Ointment (For Decolonization) -) 1 applic NS BID [facility] Stop: 04/28/18 21:59 Last Admin: 04/26/18 09:28 Dose: 1 applic ASSESSMENT AND PLAN: Acute on Chronic Hypoxic and Hypercapneic Respiratory Failure UTI r/o Bacteremia Septic Shock Lactic Acidosis Epistaxis Acute on Chronic Diastolic Heart Failure Thrombocytopenia CAD COPD Pulmonary HTN Paroxysmal Atrial Fibrillation HTN Hypercholesterolemia - continue antibiotics - f/u cultures - for LUBNA to rule out vegetations and to assess valve function - PICC line removed - IVF - off pressors, maintain MAP >65 - monitor urine output, creatinine - monitor CBC - holding anticoagulation - continue empiric steroids - inhaled bronchodilators - O2 to keep SpO2 >90% - replete lytes - continue volume assist control - keep intubated until after LUBNA - sedate for vent synchrony - DVT/GI prophylaxis - ICU monitoring critical care time spent in reviewing chart, evaluating patient and formulating plan 35 min
--- NOTE | 2018-04-26 14:43 | PN ---
Progress Note, Physician History of Present Illness: Sedated and intubated, weaned off pressors. - Current Medication List Current Medications: Active Medications Acetaminophen (Tylenol -) 650 mg PO Q6H PRN PRN Reason: FEVER Albuterol Sulfate (Ventolin 0.083% Nebulizer Soln -) 1 amp NEB Q4H PRN PRN Reason: SHORT OF BREATH/WHEEZING Albuterol/Ipratropium (Duoneb -) 1 amp NEB RQID TA Last Admin: 04/26/18 11:05 Dose: 1 amp Chlorhexidine Gluconate (Hibiclens For Decolonization -) 1 applic TP HS TA Last Admin: 04/26/18 02:43 Dose: Not Given Chlorhexidine Gluconate (Peridex -) 15 ml MM BID TA Last Admin: 04/26/18 09:28 Dose: 15 ml Hydrocortisone Sodium Succinate (Solu-Cortef -) 50 mg IVPB Q6H-IV TA Last Admin: 04/26/18 09:27 Dose: 50 mg Meropenem 1 gm/ Dextrose 100 mls @ 200 mls/hr IVPB Q8H-IV TA Last Admin: 04/26/18 09:27 Dose: 200 mls/hr Midazolam HCl 100 mg/ Sodium (Chloride) 100 mls @ 1 mls/hr IVPB TITR TA; Protocol Last Admin: 04/26/18 09:25 Dose: 8 mg/hr, 8 mls/hr Sodium Chloride (Normal Saline -) 1,000 mls @ 75 mls/hr IV ASDIR TA Last Admin: 04/26/18 07:40 Dose: Not Given Famotidine/Sodium Chloride (Pepcid 20 Mg Premixed Ivpb -) 20 mg in 50 mls @ 100 mls/hr IVPB BID TA Last Admin: 04/26/18 09:27 Dose: 100 mls/hr Daptomycin 500 mg/ Sodium (Chloride) 50 mls @ 100 mls/hr IVPB DAILY TA; Protocol Last Admin: 04/26/18 11:12 Dose: 100 mls/hr Insulin Aspart (Novolog Vial Sliding Scale -) 1 vial SQ ACHS TA; Protocol Last Admin: 04/26/18 11:22 Dose: Not Given Mupirocin (Bactroban Ointment (For Decolonization) -) 1 applic NS BID TA Stop: 04/28/18 21:59 Last Admin: 04/26/18 09:28 Dose: 1 applic - Objective Vital Signs: Vital Signs Temperature 98.3 F 04/26/18 14:00 Pulse Rate 83 04/26/18 14:00 Respiratory Rate 20 04/26/18 14:00 Blood Pressure 110/65 04/26/18 14:00 O2 Sat by Pulse Oximetry (%) 96 04/26/18 10:00 Constitutional: Yes: No Distress, Calm, Thin Cardiovascular: Yes: Regular Rate and Rhythm Respiratory: Yes: Intubated, Mechanically Ventilated Gastrointestinal: Yes: Soft, Hypoactive Bowel Sounds Edema: No Labs: CBC, BMP 04/26/18 05:30 04/26/18 05:30 INR, PTT INR 1.16 (0.83-1.09) H 04/26/18 05:30 Problem List - Problems (1) Hypotension Code(s): I95.9 - HYPOTENSION, UNSPECIFIED Qualifiers: Hypotension type: other hypotension type Qualified Code(s): I95.89 - Other hypotension (2) Nasal hemorrhage Code(s): R04.0 - EPISTAXIS (3) Acute and chronic respiratory failure with hypercapnia Code(s): J96.22 - ACUTE AND CHRONIC RESPIRATORY FAILURE WITH HYPERCAPNIA (4) Anemia Code(s): D64.9 - ANEMIA, UNSPECIFIED Qualifiers: Anemia type: unspecified type Qualified Code(s): D64.9 - Anemia, unspecified (5) COPD (chronic obstructive pulmonary disease) Code(s): J44.9 - CHRONIC OBSTRUCTIVE PULMONARY DISEASE, UNSPECIFIED Qualifiers: COPD type: unspecified COPD Qualified Code(s): J44.9 - Chronic obstructive pulmonary disease, unspecified (6) Diastolic dysfunction Code(s): I51.9 - HEART DISEASE, UNSPECIFIED (7) Epistaxis, recurrent Code(s): R04.0 - EPISTAXIS (8) Hyperlipidemia Code(s): E78.5 - HYPERLIPIDEMIA, UNSPECIFIED Qualifiers: Hyperlipidemia type: pure hypercholesterolemia Qualified Code(s): E78.00 - Pure hypercholesterolemia, unspecified; E78.0 - Pure hypercholesterolemia (9) Hyperthyroidism Code(s): E05.90 - THYROTOXICOSIS, UNSP WITHOUT THYROTOXIC CRISIS OR STORM (10) Paroxysmal A-fib Code(s): I48.0 - PAROXYSMAL ATRIAL FIBRILLATION Assessment/Plan 1. Acute on Chronic Hypoxic and Hypercapneic Respiratory Failure referable to 2. Acute on chronic class II-III NYHA classification LV failure related to diastolic LV dysfunction, probably related to volume overload IV fluids and blood transfusion, resolving 3. 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 Fever, hypotension (on pressors) related to sepsis syndrome, history of MRSA bacteremia of unclear source, with splenic infarct, endocarditis is a suspect 5. Advanced chronic obstructive pulmonary disease on home oxygen therapy with Pulmonary HTN 6. Epistaxis, prior history requiring intervention 7. Anemia related to above in addition neutropenia/thrombocytopenia etiology to be determined 8. Paroxysmal atrial fibrillation with [id number] score of 2 on A/C with DOAC's/ Eliquis (A/C withheld), recurrent arrhythmia resolved 9. HTN, weaned off pressors 10. Hypercholesterolemia 11. 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 Weaned off pressors, resume Cardizem, pending hemodynamic stability 2. Continue to withhold Diovan, pending hemodynamic stability 3. Resume A/C with Eliquis with caution considering the above noted anemia and thrombocytopenia, provided hemostasis is achieved unless it is absolutely contraindicated 4. As outlined in prior note if recurrent arrhythmia may consider antiarrhythmics/Amiodarone 5. Continue Lipitor 6. Obtain labs from this AM 7. Transfuse as needed to maintain Hg equal or > 8.0 9. Antibiotics course with f/u C&S as per ID service/primary team 10. As patient remains intubated plan to proceed with diagnostic LUBNA for evaluation of valvular structure, specially with presumptive diagnosis of endocarditis 11. DVT/GI prophylaxis
--- NOTE | 2018-04-26 14:58 | PN ---
Physical Exam: SUBJECTIVE: Patient seen and examined Intubated and sedated OBJECTIVE: Vital Signs Period Temp Pulse Resp BP Sys/Morgan Pulse Ox Last 24 Hr 97 F-98.8 F 64-83 18-21 92-112/58-74 94-100 GENERAL: Intubated and sedated HEAD: Normal with no signs of trauma. ENT: moist mucous membranes. NECK: Trachea midline, full range of motion, supple. LUNGS: + decreased breath sounds and slight expiratory wheeze bilaterally, no wheezes, no crackles, no accessory muscle use. HEART: Regular rate and rhythm, S1, S2 without murmur, rub or gallop. ABDOMEN: Soft, nontender, nondistended, normoactive bowel sounds, no guarding, no rebound, no hepatosplenomegaly, no masses. EXTREMITIES: 2+ pulses, warm, well-perfused, no edema. NEUROLOGICAL: Intubated and sedated SKIN: Warm, dry, normal turgor, no rashes or lesions noted Laboratory Results - last 24 hr 04/26/18 04/26/18 04/26/18 05:30 05:30 05:30 WBC 8.1 RBC 3.04 L Hgb 9.1 L Hct 27.8 L MCV 91.6 MCH 30.1 MCHC 32.9 RDW 16.2 H Plt Count 57 L MPV 8.8 Absolute Neuts (auto) 7.6 Neutrophils % 93.8 H Neutrophils % (Manual) 82.8 Band Neutrophils % 15.2 Lymphocytes % 2.5 L Lymphocytes % (Manual) 1.0 L Monocytes % 3.5 L Monocytes % (Manual) 1 L Eosinophils % 0.1 D Eosinophils % (Manual) 0.0 Basophils % 0.1 Basophils % (Manual) 0.0 Myelocytes % (Man) 0 D Promyelocytes % (Man) 0 Blast Cells % (Manual) 0 Nucleated RBC % 0 Metamyelocytes 0 Hypochromia 0 Platelet Estimate Decreased Platelet Comment Present Polychromasia 1+ Poikilocytosis 2+ Basophilic Stippling 1+ Anisocytosis 2+ Microcytosis 2+ Macrocytosis 0 Target Cells 1+ Tear Drop Cells 1+ Ovalocytes 1+ Buddy Cells 2+ PT with INR 13.70 H INR 1.16 H PTT (Actin FS) 18.4 L Anticoagulation Therapy Puncture Site ABG pH ABG pCO2 at Pt Temp ABG pO2 at Pt Temp ABG HCO3 ABG O2 Sat (Measured) ABG O2 Content ABG Base Excess Pardeep Test O2 Delivery Device Oxygen Flow Rate Vent Mode Vent Rate Mechanical Rate PEEP Pressure Support Vent Sodium 138 Potassium 4.0 Chloride 102 Carbon Dioxide 30 Anion Gap 7 L BUN 17 Creatinine 0.2 L Creat Clearance w eGFR > 60 Random Glucose 89 Calcium 7.9 L Phosphorus 1.9 L Magnesium 2.3 Total Bilirubin 0.4 AST 16 ALT 32 Alkaline Phosphatase 58 Total Protein 4.7 L Albumin 1.9 L Influenza A (Rapid) Influenza B (Rapid) 04/26/18 04/26/18 07:00 10:00 WBC RBC Hgb Hct MCV MCH MCHC RDW Plt Count MPV Absolute Neuts (auto) Neutrophils % Neutrophils % (Manual) Band Neutrophils % Lymphocytes % Lymphocytes % (Manual) Monocytes % Monocytes % (Manual) Eosinophils % Eosinophils % (Manual) Basophils % Basophils % (Manual) Myelocytes % (Man) Promyelocytes % (Man) Blast Cells % (Manual) Nucleated RBC % Metamyelocytes Hypochromia Platelet Estimate Platelet Comment Polychromasia Poikilocytosis Basophilic Stippling Anisocytosis Microcytosis Macrocytosis Target Cells Tear Drop Cells Ovalocytes Buddy Cells PT with INR INR PTT (Actin FS) Anticoagulation Therapy No Result Required. Puncture Site Left radial ABG pH 7.48 H ABG pCO2 at Pt Temp 41.7 ABG pO2 at Pt Temp 102.0 H D ABG HCO3 30.6 H ABG O2 Sat (Measured) 98.2 ABG O2 Content 11.9 L ABG Base Excess 6.8 H Pardeep Test Positive O2 Delivery Device Vent Oxygen Flow Rate 35% Vent Mode No Result Required. Vent Rate 18 Mechanical Rate No Result Required. PEEP 5.0 Pressure Support Vent No Result Required. Sodium Potassium Chloride Carbon Dioxide Anion Gap BUN Creatinine Creat Clearance w eGFR Random Glucose Calcium Phosphorus Magnesium Total Bilirubin AST ALT Alkaline Phosphatase Total Protein Albumin Influenza A (Rapid) Negative Influenza B (Rapid) Negative Active Medications Generic Name Dose Route Start Last Admin Trade Name Freq PRN Reason Stop Dose Admin Acetaminophen 650 mg 04/23/18 13:40 Tylenol - PO Q6H PRN FEVER Albuterol Sulfate 1 amp 04/24/18 05:01 Ventolin 0.083% Nebulizer Soln - NEB Q4H PRN SHORT OF BREATH/WHEEZING Albuterol/Ipratropium 1 amp 04/24/18 08:00 04/26/18 11:05 Duoneb - NEB 1 amp RQID TA Administration Chlorhexidine Gluconate 1 applic 04/23/18 22:00 04/26/18 02:43 Hibiclens For Decolonization - TP Not Given HS TA Chlorhexidine Gluconate 15 ml 04/25/18 22:00 04/26/18 09:28 Peridex - MM 15 ml BID TA Administration Hydrocortisone Sodium Succinate 50 mg 04/24/18 09:45 04/26/18 09:27 Solu-Cortef - IVPB 50 mg Q6H-IV TA Administration Meropenem 1 gm/ Dextrose 100 mls @ 200 mls/hr 04/23/18 18:45 04/26/18 09:27 IVPB 200 mls/hr Q8H-IV TA Administration Midazolam HCl 100 mg/ Sodium 100 mls @ 1 mls/hr 04/24/18 04:15 04/26/18 09:25 Chloride IVPB 8 mg/hr TITR TA 8 mls/hr Administration Protocol 1 MG/HR Sodium Chloride 1,000 mls @ 75 mls/hr 04/24/18 05:30 04/26/18 07:40 Normal Saline - IV Not Given ASDIR TA Famotidine/Sodium Chloride 20 mg in 50 mls @ 100 mls/hr 04/24/18 10:00 09:27 Pepcid 20 Mg Premixed Ivpb - IVPB 100 mls/hr BID TA Administration Daptomycin 500 mg/ Sodium 50 mls @ 100 mls/hr 04/25/18 10:00 04/26/18 11:12 Chloride IVPB 100 mls/hr DAILY TA Administration Protocol Insulin Aspart 1 vial 04/24/18 11:00 04/26/18 11:22 Novolog Vial Sliding Scale - SQ Not Given ACHS TA Protocol Mupirocin 1 applic 04/23/18 22:00 04/26/18 09:28 Bactroban Ointment (For Decolonization) - NS 04/28/18 21:59 1 applic BID TA Administration ASSESSMENT/PLAN: Patient is a 67 yo M with history of COPD on home oxygen (3L), Interstitial lung disease, HTN, HLD, CHF, diastolic LV dysfunction, VA, CAD, GERD, hiatal hernia, recent dx of Afib with RVR on Eliquis (last dose 04/22 AM), presenting to the ER with a complaint of epistaxis, hypotension and tachycardia. Now admitted to ICU for septic shock. Pt was recently admitted for MRSA bacteremia, currently receiving Daptomycin via Right UE PICC line. ED Course notable for: - continued hypotension SBP 86-90 - HR 122 - Temp 100.2F rectal - 3L NS -> SBP 90-100s - CXR: focal mass at R apex unchanged from ID Septic Shock -likely 2/2 urosepsis - ID on case - monitor intake/ output maintain urine output of 1ml/kg/hr to 0.5ml/kg/hr - Keep MAP> 65 - titrated off pressors, femoral line removed - picc line removed - antibiotics as per ID. on daptomycin and meropenem - on hydrocortisone 50 q6h - blood and urine culture neg, sputum culture with gram negative bacilli - source of sepsis unclear - ct scan chest/abd/pelvis MRSA Bacteremia with suspicion of endocarditis, last admission - pending LUBNA today Heme Acute blood loss, normocytic anemia, likely 2/2 epistaxis - Tranfusion goal of Hb > 8 - Hold Eliquis - nasal packing to be removed today - ENT following (Dr. Clarke) - keep head end elevated - s/p 2 U prbc hb 7.9----> 10.9-->9.7--> 9.1 Thrombocytopenia, baseline around 130-140 and since 03/02/18 has been decreasing to 80s, likely 2/2 sepsis and antibiotics - platelets 65--> 62-->70--> 57 Epistaxis from the L nares - L nasal packing done in ED, ENT consulted ENT recommends nasal packing until Thursday - seeking improvment of PTTw/INR, max of 3-5days - PTT/INR 20--> 15.1 --> 13.7 - maintain antistaphyloccal antibiotics Cardiac Diastolic LV dysfunc, CHF, phx VA, CAD, Afib w/ RVR - Last ECHO (03/31/18) - normal EF, L ventricular function normal, severe MR, moderate TR - Tele monitoring - Continue lipitor - Trop: neg - LUBNA planned for tday HTN - hypotensive 2/2 septic shock - will hold home medications, valsartan Afib - on Eliquis at home, will hold in setting of coagulopathy, resume pending hemostasis - [id number] score of 3 Pulm COPD, not in exacerbation, uses 3L home oxygen continue 3L of oxygen, on NRB due to L nasal packing CXR: focal mass at R apex unchanged from Spiriva daily F/E/N - NS @ 75ml/hr - Advance diet as tolerated - Electrolytes wnl - Diabetic diet - sher cath PPX DVT, pt on Eliquis on hold due to bleeding, on SCDs now GI, not indicated Code Status: full code Dispo: Continue ICU monitoring. Visit type - Emergency Visit Emergency Visit: No - New Patient This patient is new to me today: No - Critical Care Critical Care patient: No
[2018-04-26] MEDS: methylPREDNISolone NA SUCC 40 MG/1 ML VIAL IVPUSH SCH (17:28)
--- NOTE | 2018-04-26 19:39 | CON.ENT ---
Consult Consult Specialty:: ENT Reason for Consultation:: epistaxis - History Source History Provided By: Family Member, Medical Record Limitations to Obtaining History: Intubated - Past Medical History Cardio/Vascular: Yes: AFIB (paroxysmal), CAD, CHF (end diastlic), HTN, Hyperlipdemia, Pulmonary Hypertension Pulmonary: Yes: COPD (home oxygen), O2 Dependent, Previously Intubated ( intubated one time several years ago for respiratory failure), Other ( Interstitial lung disease and lung mass) Gastrointestinal: Yes: Diverticulosis, GERD, Other (descending colon polyp excised 08/11) Renal/: Yes: Renal Calculi, UTI Infectious Disease: Yes: MRSA (current bacteremia), Other (known history of MAC , 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 large left inguinal hernia and ventral hernia. 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 History of Recent Travel: No Home Medications - Allergies Allergies/Adverse Reactions: Allergies Allergy/AdvReac Type Severity Reaction Status Date / Time moxifloxacin HCl Allergy Severe Verified 04/23/18 11:13 [From Avelox] aclidinium bromide Allergy Verified 04/23/18 11:13 [From Tudorza Pressair] shellfish derived Allergy Verified 04/23/18 11:13 - Home Medications Home Medications: Ambulatory Orders Arformoterol Tartrate [Brovana] 15 mcg IH BID 02/08/14 Alprazolam [Xanax] 0.5 mg PO Q12H PRN tablet MDD 2 04/07/18 Amino Acids/Protein Hydrolys [Prosource No Carb Liquid Pkt] 30 ml PO BID@0800, 1730 packet 04/07/18 Atorvastatin Ca [Lipitor] 10 mg PO HS tablet 04/07/18 Bisacodyl [Bisacodyl -] 5 mg PO DAILY PRN tablet. 04/07/18 Budesonide/Formeterol Fumarate [SYMBICORT 160/4.5mcg -] 2 puff IH BID inhaler 04/07/18 Ceftaroline Fosamil Acetate [Teflaro (Restricted To Id)] 600 mg IVPB Q8H-IV vial 04/07/18 Daptomycin [Cubicin (Restricted To Id) -] 500 mg IVPB DAILY vial 04/07/18 Diltiazem Cd [Cardizem Cd -] 120 mg PO DAILY cap.cd.24h 04/07/18 Escitalopram Oxalate [Lexapro -] 20 mg PO DAILY tablet 04/07/18 Ferrous Sulfate [Feosol] 325 mg PO DAILY ud 04/07/18 Insulin Sliding Scale [Novolog Vial Sliding Scale -] 1 vial SQ ACHS units 04/07 Lactobacillus Acidophilus [Bacid -] 1 tab PO DAILY tab 04/07/18 Pantoprazole Sodium [Protonix -] 40 mg PO BID tablet.ec 04/07/18 Picc Line Flush [Picc Line Flush -] 8 ml IVPUSH PRN PRN ml 04/07/18 Polyethylene Glycol 3350 [Miralax 119 gm Btl -] 17 gm PO DAILY bottle 04/07/18 Sitagliptin Phosphate [Januvia -] 100 mg PO DAILY@0700 ud 04/07/18 Tamsulosin HCl [Flomax -] 0.4 mg PO DAILY@0830 cap.er.24h 04/07/18 Tiotropium [place] [Spiriva Respimat] 2 puff IH DAILY inhaler 04/07/18 Valsartan [Diovan] 40 mg PO DAILY tablet 04/07/18 predniSONE [Deltasone -] 20 mg PO BID tablet 04/07/18 Acetaminophen [Tylenol] 325 mg PO Q6H PRN 04/23/18 Albuterol 0.083% Nebulizer Portia [Ventolin 0.083%] 1 neb NEB Q4H 04/23/18 Apixaban [Eliquis -] 5 mg PO BID 04/23/18 Apixaban [Eliquis -] 5 mg PO DAILY 04/23/18 Family Disease History - Family Disease History Family Disease History: Heart Disease: Father ( 67 of [place]), CA: Mother ( 67 colon cancer) Physical Exam-ENT Vital Signs: Vital Signs Temperature 98.3 F 04/26/18 14:00 Pulse Rate 76 04/26/18 18:00 Respiratory Rate 19 04/26/18 18:13 Blood Pressure 118/69 04/26/18 18:00 O2 Sat by Pulse Oximetry (%) 96 04/26/18 10:00 Head: Yes: WNL Face: Yes: WNL Eyes: Yes: Other (closed, no spontaneous opening) Nasal Passage: Yes: Other (left nasal pack in place, no bleeding) Oral/Pharynx: Yes: Other (martha-endotracheal tube in place, secure, no blood seen) Outer Ear: Yes: WNL Problem List - Problems (1) Epistaxis, recurrent Assessment/Plan: recurrent epistaxis, presently controlled left side with packing family reports recurrent bleeding, on home O2 and picks scratches/cleans nose, makes it "gush" on ASA, now Eliquis presently intubated on ventilator for LUBNA in AM Recommend: continue packing consider deflation tomorrow if no further bleeding will need to monitor H/H and PT, INR Thank you for consultation Peter Reid MD FACS Code(s): R04.0 - EPISTAXIS
[2018-04-27] MEDS: methylPREDNISolone NA SUCC 40 MG/1 ML VIAL IVPUSH SCH ×3 (02:31→17:25)
[2018-04-27] MEDS: MEROPENEM 1 GM in DEXTROSE 5%-WATER 100 ML IVPB SCH ×2 (02:32→11:27)
[2018-04-27] MEDS: SODIUM CHLORIDE 1,000 ML IV SCH ×3 (02:32→10:15)
[2018-04-27] MEDS: MIDAZOLAM 100 MG in SODIUM CHLORIDE 100 ML IVPB SCH (06:14)
[2018-04-27] MEDS: INSULIN SLIDING SCALE (NOVOLOG) 1 VIAL SQ SCH ×4 (06:15→21:46)
[2018-04-27 06:22] LABS: BASO % 0.1 % (0-2.0); HEMATOCRIT 28.1 % (35.4-49); HEMOGLOBIN 9.1 GM/dL (11.7-16.9); LYMPH % 1.8 % (8-40); MCH 30.2 pg (25.7-33.7); MCHC 32.5 g/dl (32.0-35.9); MEAN CELL VOLUME 92.8 fl (80-96); MEAN PLT VOLUME 9.3 fl (7.5-11.1); MONO % 2.4 % (3.8-10.2); NEUT % 95.7 % (42.8-82.8); PLATELET COUNT 63 K/MM3 (134-434); RBC 3.03 M/mm3 (4.00-5.60); RDW 16.2 % (11.9-15.9); WHITE BLOOD COUNT 7.1 K/mm3 (4.0-10.0)
[2018-04-27 06:29] LABS: ALBUMIN 1.9 g/dl (3.4-5.0); ALK PHOS 62 U/L (45-117); ANION GAP 8 MMOL/L (8-16); BILIRUBIN,TOTAL 0.4 mg/dL (0.2-1); BLOOD UREA NITROGEN 18 mg/dL (7-18); CALCIUM 7.4 mg/dL (8.5-10.1); CHLORIDE 104 mmol/L (98-107); CO2 30 mmol/L (21-32); CREATININE 0.3 mg/dL (0.55-1.3); GLUCOSE,RANDOM 105 mg/dL (74-106); MAGNESIUM 2.2 mg/dL (1.8-2.4); POTASSIUM 3.9 mmol/L (3.5-5.1); SGOT/AST 10 U/L (15-37); SGPT/ALT 30 U/L (13-61); SODIUM 142 mmol/L (136-145); TOT PROT 4.8 g/dl (6.4-8.2)
[2018-04-27] MEDS ORDERED: MIDAZOLAM 100 MG/100 ML MG IVPB ONE (07:05)
[2018-04-27] MEDS: ALBUTEROL SO4 2.5/IPRATROPIUM 0.5 INH SOL 3 ML VIAL.NEB. NEB SCH ×2 (08:10→11:53)
--- NOTE | 2018-04-27 08:15 | PN ---
Progress Note (short form) - Note Progress Note: Chief Complaint: Events noted, notes reviewed, remains intubated and sedated, hypotension resolved, no further paroxysmal atrial fibrillation noted remains in sinus rhythm, remains off of A/C, nasal packing in situ History of Present Illness: Seen and examined in the ICU. Events noted, notes reviewed, remains intubated and sedated, hypotension resolved, no further paroxysmal atrial fibrillation noted remains in sinus rhythm, remains off of A/C, nasal packing in situ As outlined in prior notes ideally patient should be re-anticoagulated unless it is absolutely contraindicated provided adequate hemostasis and stabilized platelet count, Heparin or resume Eliquis Plan to proceed with diagnostic LUBNA for evaluation of valvular structure, specially with presumptive diagnosis of endocarditis, later today - Current Medication List Current Medications Acetaminophen (Tylenol -) 650 mg PO Q6H PRN PRN Reason: FEVER Albuterol Sulfate (Ventolin 0.083% Nebulizer Soln -) 1 amp NEB Q4H PRN PRN Reason: SHORT OF BREATH/WHEEZING Albuterol/Ipratropium (Duoneb -) 1 amp NEB RQID [facility] Last Admin: 04/26/18 21:33 Dose: 1 amp Chlorhexidine Gluconate (Hibiclens For Decolonization -) 1 applic TP HS TA Last Admin: 04/26/18 21:03 Dose: Not Given Chlorhexidine Gluconate (Peridex -) 15 ml MM BID [facility] Last Admin: 04/26/18 21:03 Dose: 15 ml Meropenem 1 gm/ Dextrose 100 mls @ 200 mls/hr IVPB Q8H-IV TA Last Admin: 04/27/18 02:32 Dose: 200 mls/hr Midazolam HCl 100 mg/ Sodium (Chloride) 100 mls @ 1 mls/hr IVPB TITR TA; Protocol Last Admin: 04/27/18 06:14 Dose: Not Given Sodium Chloride (Normal Saline -) 1,000 mls @ 75 mls/hr IV ASDIR TA Last Admin: 04/27/18 06:14 Dose: Not Given Famotidine/Sodium Chloride (Pepcid 20 Mg Premixed Ivpb -) 20 mg in 50 mls @ 100 mls/hr IVPB BID TA Last Admin: 04/26/18 21:03 Dose: 100 mls/hr Daptomycin 500 mg/ Sodium (Chloride) 50 mls @ 100 mls/hr IVPB DAILY TA; Protocol Last Admin: 04/26/18 11:12 Dose: 100 mls/hr Insulin Aspart (Novolog Vial Sliding Scale -) 1 vial SQ ACHS TA; Protocol Last Admin: 04/27/18 06:15 Dose: Not Given Methylprednisolone Sodium Succinate (Solu-Medrol -) 40 mg IVPUSH Q8H-IV TA Last Admin: 04/27/18 02:31 Dose: 40 mg Mupirocin (Bactroban Ointment (For Decolonization) -) 1 applic NS BID TA Stop: 04/28/18 21:59 Last Admin: 04/26/18 21:03 Dose: 1 applic - Review of Systems Unable to obtain - Objective Vital Signs: Last Vital Signs Temp Pulse Resp BP Pulse Ox 98.4 F 62 22 H 123/74 94 L 04/27/18 06:00 04/27/18 06:00 04/27/18 06:44 04/27/18 06:00 04/26/18 22:00 Intake & Output 04/24/18 04/25/18 04/26/18 04/27/18 23:59 23:59 23:59 23:59 Intake Total 3840 3311 1715 779 Output Total 2550 1025 1130 Balance 1290 2286 585 779 Weight 130 lb 130 lb 133 lb 9.602 oz Neck: Supple Negative JVD Cardiovascular: S1 S2 Regular Rate Rhythm Respiratory: Diminished breath sounds Bilaterally Scattered Rhonchi Gastrointestinal: Soft Benign Normal Bowel Sounds Ext: Negative Edema Labs: CBC, BMP 04/27/18 05:30 04/27/18 05:30 Assessment/Plan ASSESSMENT: 1. Acute on Chronic Hypoxic Respiratory Failure referable to 2. Acute on chronic class II-III NYHA classification LV failure related to diastolic LV dysfunction, probably related to volume overload IV fluids and blood transfusion, resolved 3. 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 Sepsis syndrome, history of MRSA bacteremia of unclear source, with splenic infarct, endocarditis is a suspect for LUBNA later today 5. Advanced chronic obstructive pulmonary disease on home oxygen therapy with Pulmonary HTN 6. Epistaxis, prior history requiring intervention, nasal packing in situ 7. Anemia related to above and in addition thrombocytopenia etiology to be determined 8. Paroxysmal atrial fibrillation with [id number] score of 2 on A/C with DOAC's/ Eliquis (A/C withheld), recurrent arrhythmia resolved 9. HTN 10. 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 Resume Cardizem, hemodynamics permitting 2. Continue to withhold Diovan and may resume in AM provided hemodynamics permit 3. Resume A/C with Eliquis with caution considering the above noted anemia and thrombocytopenia, provided hemostasis is achieved unless it is absolutely contraindicated 4. Consider hematology evaluation for the above noted thrombocytopenia 5. As outlined in prior notes if recurrent arrhythmia may consider antiarrhythmics/Amiodarone 6. Continue Lipitor 7. Monitor Hg and transfuse as needed to maintain Hg equal or > 8.0 8. Antibiotics course as per ID service/primary team 9. To proceed with diagnostic LUBNA for evaluation of valvular structure, specially with presumptive diagnosis of endocarditis Ashley Bojorquez MD
[2018-04-27] MEDS: dilTIAZem HCL 30 MG TABLET (FP) PO SCH ×2 (08:44→16:25)
--- NOTE | 2018-04-27 08:49 | PN ---
Progress Note, Physician - Current Medication List Current Medications: Active Medications Acetaminophen (Tylenol -) 650 mg PO Q6H PRN PRN Reason: FEVER Albuterol Sulfate (Ventolin 0.083% Nebulizer Soln -) 1 amp NEB Q4H PRN PRN Reason: SHORT OF BREATH/WHEEZING Albuterol/Ipratropium (Duoneb -) 1 amp NEB RQID TA Last Admin: 04/26/18 21:33 Dose: 1 amp Chlorhexidine Gluconate (Hibiclens For Decolonization -) 1 applic TP HS [facility] Last Admin: 04/26/18 21:03 Dose: Not Given Chlorhexidine Gluconate (Peridex -) 15 ml MM BID TA Last Admin: 04/26/18 21:03 Dose: 15 ml Diltiazem HCl (Cardizem -) 30 mg PO TID TA Last Admin: 04/27/18 08:44 Dose: 30 mg Meropenem 1 gm/ Dextrose 100 mls @ 200 mls/hr IVPB Q8H-IV TA Last Admin: 04/27/18 02:32 Dose: 200 mls/hr Midazolam HCl 100 mg/ Sodium (Chloride) 100 mls @ 1 mls/hr IVPB TITR TA; Protocol Last Admin: 04/27/18 06:14 Dose: Not Given Sodium Chloride (Normal Saline -) 1,000 mls @ 75 mls/hr IV ASDIR TA Last Admin: 04/27/18 06:14 Dose: Not Given Famotidine/Sodium Chloride (Pepcid 20 Mg Premixed Ivpb -) 20 mg in 50 mls @ 100 mls/hr IVPB BID TA Last Admin: 04/26/18 21:03 Dose: 100 mls/hr Daptomycin 500 mg/ Sodium (Chloride) 50 mls @ 100 mls/hr IVPB DAILY TA; Protocol Last Admin: 04/26/18 11:12 Dose: 100 mls/hr Insulin Aspart (Novolog Vial Sliding Scale -) 1 vial SQ ACHS TA; Protocol Last Admin: 04/27/18 06:15 Dose: Not Given Methylprednisolone Sodium Succinate (Solu-Medrol -) 40 mg IVPUSH Q8H-IV TA Last Admin: 04/27/18 02:31 Dose: 40 mg Mupirocin (Bactroban Ointment (For Decolonization) -) 1 applic NS BID [facility] Stop: 04/28/18 21:59 Last Admin: 04/26/18 21:03 Dose: 1 applic - Objective Vital Signs: Vital Signs Temperature 98.4 F 04/27/18 06:00 Pulse Rate 62 04/27/18 06:00 Respiratory Rate 22 H 04/27/18 06:44 Blood Pressure 123/74 04/27/18 06:00 O2 Sat by Pulse Oximetry (%) 94 L 04/26/18 22:00 Cardiovascular: Yes: Murmur, S1, S2 Respiratory: Yes: Mechanically Ventilated Gastrointestinal: Yes: Normal Bowel Sounds, Soft Labs: CBC, BMP 04/27/18 05:30 04/27/18 05:30 INR, PTT INR 1.16 (0.83-1.09) H 04/26/18 05:30 Problem List - Problems (1) Fever Assessment/Plan: -resolved cultures Microbiology 04/23/18 12:52 Blood - Peripheral Venous Blood Culture - Preliminary NO GROWTH OBTAINED AFTER 72 HOURS, INCUBATION TO CONTINUE FOR 2 DAYS. 04/26/18 10:00 Urine - Urine Bowling Legionella Antigen - Final 04/26/18 10:00 Urine - Urine Bowling Streptococcus pneumoniae Antigen (M - Final 04/23/18 11:30 Blood - Peripheral Venous Blood Culture - Preliminary NO GROWTH OBTAINED AFTER 72 HOURS, INCUBATION TO CONTINUE FOR 2 DAYS. 04/24/18 18:00 Sputum - Endotrachea Suction/Ventilator Gram Stain - Final 04/24/18 18:00 Sputum - Endotrachea Suction/Ventilator Sputum Culture - Preliminary Lactose Fermenting Neg Bacilli 04/23/18 13:00 Urine - Urine Clean Catch Urine Culture - Final NO GROWTH OBTAINED ID consult isolation for MRSA ivf ICU abx per id Orders 04/23/18 18:45 Meropenem [Merrem (Restricted To Id) -] 1 gm Dextrose 5%-Water [Dextrose 5% Water Minibag 100ML] 100 ml IVPB Q8H-IV 04/25/18 10:00 Daptomycin [Cubicin (Restricted To Id) -] 500 mg Sodium Chloride [Normal Saline -] 50 ml IVPB DAILY Code(s): R50.9 - FEVER, UNSPECIFIED (2) Acute and chronic respiratory failure with hypercapnia Assessment/Plan: Vent support pulm oxygen bronchodilators weaning per pulm Code(s): J96.22 - ACUTE AND CHRONIC RESPIRATORY FAILURE WITH HYPERCAPNIA (3) Anemia Assessment/Plan: Monitor Laboratory Tests 04/24/18 04/25/18 05:15 08:55 Hgb 10.9 L 9.7 L Code(s): D64.9 - ANEMIA, UNSPECIFIED Qualifiers: Anemia type: unspecified type Qualified Code(s): D64.9 - Anemia, unspecified (4) COPD (chronic obstructive pulmonary disease) Assessment/Plan: -As Above Code(s): J44.9 - CHRONIC OBSTRUCTIVE PULMONARY DISEASE, UNSPECIFIED Qualifiers: COPD type: unspecified COPD Qualified Code(s): J44.9 - Chronic obstructive pulmonary disease, unspecified (5) MRSA bacteremia Assessment/Plan: daptomycin via picc line isolation ID consult and follow up noted LUBNA today Code(s): R78.81 - BACTEREMIA (6) Nasal hemorrhage Assessment/Plan: ( ENT consult noted nasal packing monitor h/h prbc Code(s): R04.0 - EPISTAXIS (7) Afib Assessment/Plan: icu cardizem hold for now- hold AC Code(s): I48.91 - UNSPECIFIED ATRIAL FIBRILLATION
[2018-04-27] MEDS: CHLORHEXIDINE GLUCONATE 0.12% 15ML CUP MM SCH ×2 (09:00→21:45)
[2018-04-27] MEDS: MUPIROCIN 2% TOPICAL OINTMENT FOR DECOLONIZATION NS SCH ×2 (09:15→21:44)
[2018-04-27 09:34] LABS: INR 1.14 (0.83-1.09); PROTHROMBIN TIME (PATIENT) 13.5 SEC (9.7-13.0)
[2018-04-27 09:36] LABS: ACTIVATED PTT 28.9 SECONDS (25.2-36.5)
[2018-04-27 09:56] LABS: ANISOCYTOSIS 1+; MACROCYTOSIS 1+; PLATELET ESTIMATE DECREASED
[2018-04-27] MEDS ORDERED: PT OWN MED DRAWER 7, Y5N ONE ×2 (10:09→21:35)
[2018-04-27] MEDS ORDERED: MIDAZOLAM HCL 2 MG/2 ML SINGLE DOSE VIAL IVPUSH ONE (10:11)
[2018-04-27] MEDS ORDERED: dilTIAZem HCL 125 MG/25 ML - 25 ML VIAL ONE ×3 (10:25→12:16)
[2018-04-27] MEDS ORDERED: PROPOFOL 200 MG/20 ML VIAL IVPUSH ONE ×4 (10:45→11:15)
[2018-04-27] MEDS ORDERED: PROPOFOL 20 ML ONE (10:46)
[2018-04-27] MEDS ORDERED: dilTIAZem HCL 50 MG/10 ML - 10 ML VIAL IVPUSH ONE ×3 (11:15→11:24)
--- NOTE | 2018-04-27 11:24 | PN ---
Progress Note (short form) - Note Progress Note: LUBNA (Procedure Note) Patient is currently intubated and sedated on Versed.Consent obtained by . LUBNA was inserted bedside after he was given Propofol in addition to Versed with the assistance of Dr. Yang. Patient tolerated procedure. Cardizem IV was given for AF with RVR during procedure Preliminary result shows moderate to severe MR with posteriorly directed eccentric jet due to anterior mitral valve prolapse, mild TR and normal LV systolic function. There were no vegetations. Small pericardial effusion may be seen. Official report to follow. Discussed with family Toni Mares MD
[2018-04-27] MEDS: FAMOTIDINE 20 MG/50 ML IVPB 20 MG/50 ML MG IVPB SCH ×2 (11:30→21:45)
[2018-04-27] MEDS: IPRATROPIUM BR 0.02% 0.5 MG/2.5 ML VIAL.NEB. NEB SCH ×3 (12:00→21:10)
[2018-04-27] MEDS ORDERED: DILTIAZEM INJECTION 125 MG in SODIUM CHLORIDE 100 ML IVPB SCH (12:15)
[2018-04-27] MEDS ORDERED: dilTIAZem HCL 50 MG/10 ML - 10 ML VIAL ONE (12:15)
[2018-04-27] MEDS: DAPTOMYCIN 500 MG in SODIUM CHLORIDE 50 ML IVPB SCH (12:52)
--- NOTE | 2018-04-27 13:12 | PN ---
Teaching Attending Note Name of Resident: Candida Parnell ATTENDING PHYSICIAN STATEMENT I saw and evaluated the patient. I reviewed the resident's note and discussed the case with the resident. I agree with the resident's findings and plan as documented. SUBJECTIVE: Pt seen and examined in the ICU. Remains intubated, sedated. s/p LUBNA this AM confirming severe mitral regurgitation. Now in rapid atrial fibrillation, started on cardizem gtt. OBJECTIVE: Vital Signs Period Temp Pulse Resp BP Sys/Morgan Pulse Ox Last 24 Hr 98.2 F-98.8 F 62-150 16-23 95-137/59-90 94-100 Intake & Output 04/24/18 04/25/18 04/26/18 04/27/18 23:59 23:59 23:59 23:59 Intake Total 3840 3311 1715 779 Output Total 2550 1025 1130 Balance 1290 2286 585 779 Weight 58.967 kg 58.967 kg 60.6 kg Gen: intubated, sedated Heart: tachycardic, irregular Lung: scattered rhonchi Abd: soft, nontender Ext: no edema CBC, BMP 04/27/18 05:30 04/27/18 05:30 Active Medications Acetaminophen (Tylenol -) 650 mg PO Q6H PRN PRN Reason: FEVER Chlorhexidine Gluconate (Hibiclens For Decolonization -) 1 applic TP HS [facility] Last Admin: 04/26/18 21:03 Dose: Not Given Chlorhexidine Gluconate (Peridex -) 15 ml MM BID [facility] Last Admin: 04/27/18 09:00 Dose: 15 ml Diltiazem HCl (Cardizem -) 30 mg PO TID [facility] Last Admin: 04/27/18 08:44 Dose: 30 mg Meropenem 1 gm/ Dextrose 100 mls @ 200 mls/hr IVPB Q8H-IV TA Last Admin: 04/27/18 11:27 Dose: 200 mls/hr Midazolam HCl 100 mg/ Sodium (Chloride) 100 mls @ 1 mls/hr IVPB TITR TA; Protocol Last Titration: 04/27/18 11:31 Dose: 0 mg/hr, 0 mls/hr Sodium Chloride (Normal Saline -) 1,000 mls @ 75 mls/hr IV ASDIR TA Last Admin: 04/27/18 10:15 Dose: 75 mls/hr Famotidine/Sodium Chloride (Pepcid 20 Mg Premixed Ivpb -) 20 mg in 50 mls @ 100 mls/hr IVPB BID [facility] Last Admin: 04/27/18 11:30 Dose: 100 mls/hr Daptomycin 500 mg/ Sodium (Chloride) 50 mls @ 100 mls/hr IVPB DAILY [facility]; Protocol Last Admin: 04/27/18 12:52 Dose: 100 mls/hr Diltiazem HCl 125 mg/ Sodium (Chloride) 125 mls @ 5 mls/hr IVPB TITR [facility]; Protocol Last Titration: 04/27/18 12:40 Dose: 10 mg/hr, 10 mls/hr Insulin Aspart (Novolog Vial Sliding Scale -) 1 vial SQ ACHS [facility]; Protocol Last Admin: 04/27/18 06:15 Dose: Not Given Ipratropium [place] (Atrovent 0.02% Nebulizer -) 1 amp NEB RQID TA Methylprednisolone Sodium Succinate (Solu-Medrol -) 40 mg IVPUSH Q8H-IV TA Last Admin: 04/27/18 11:31 Dose: 40 mg Mupirocin (Bactroban Ointment (For Decolonization) -) 1 applic NS BID [facility] Stop: 04/28/18 21:59 Last Admin: 04/26/18 21:03 Dose: 1 applic ASSESSMENT AND PLAN: Acute on Chronic Hypoxic and Hypercapneic Respiratory Failure UTI Septic Shock Lactic Acidosis Epistaxis Acute on Chronic Diastolic Heart Failure Severe Mitral Regurgitation Thrombocytopenia CAD COPD Pulmonary HTN Paroxysmal Atrial Fibrillation HTN Hypercholesterolemia - continue antibiotics - off pressors, maintain MAP >65 - monitor urine output, creatinine - monitor CBC - holding anticoagulation for thrombocytopenia - rate control with cardizem gtt, may need amiodarone as well - continue empiric steroids - inhaled bronchodilators - O2 to keep SpO2 >90% - replete lytes - lighten sedation to assess mental status - spontaneous breathing trials as tolerated when mental status improved - DVT/GI prophylaxis - ICU monitoring critical care time spent in reviewing chart, evaluating patient and formulating plan 35 min
[2018-04-27] MEDS: DILTIAZEM INJECTION 125 MG in SODIUM CHLORIDE 100 ML IVPB SCH (13:16)
--- NOTE | 2018-04-27 13:46 | PN ---
Progress Note (short form) - Note Progress Note: in rapid afib moderate to severe MR on LUBNA- no vegetation Vital Signs Period Temp Pulse Resp BP Sys/Morgan Pulse Ox Last 24 Hr 98.2 F-98.8 F 62-150 16-23 95-137/59-90 94-100 remains intubated awake cor-rrr lungs clear abd soft,nt ext no edema CBC, BMP 04/27/18 05:30 04/27/18 05:30 Microbiology 04/23/18 11:30 Blood - Peripheral Venous Blood Culture - Preliminary NO GROWTH OBTAINED AFTER 96 HOURS, INCUBATION TO CONTINUE FOR 1 DAYS. 04/24/18 18:00 Sputum - Endotrachea Suction/Ventilator Gram Stain - Final 04/24/18 18:00 Sputum - Endotrachea Suction/Ventilator Sputum Culture - Final Enterobacter Aerogenes 04/23/18 12:52 Blood - Peripheral Venous Blood Culture - Preliminary NO GROWTH OBTAINED AFTER 72 HOURS, INCUBATION TO CONTINUE FOR 2 DAYS. 04/26/18 10:00 Urine - Urine Bowling Legionella Antigen - Final 04/26/18 10:00 Urine - Urine Bowling Streptococcus pneumoniae Antigen (M - Final 04/23/18 13:00 Urine - Urine Clean Catch Urine Culture - Final NO GROWTH OBTAINED a/p FUO MRSA bacteremia LUBNA no vegetations thrombocytopenia continue daptomycin d/c meropenem no signs pneumonia or other Gram negative infection WBC tagged study d/w and daughter at bedside d/w Machine Set Up
--- NOTE | 2018-04-27 14:15 | ECHO ---
Name: MORE, CARLOS P Exam:Transesophageal Echocardiogram Study Date: 04/27/2018 10:25 AM Age: 67 yrs Reason For Study: R/O Vegetation Height: 70 in Weight: 133 lb BSA: 1.8 m2 Procedure: A 2D transesophageal echocardiogram with Doppler and color flow Doppler was performed. Informed conse nt for Transesophageal Echocardiogram, and use of a contrast agent as needed, was obtained prior to the proc edure. An intravenous line was placed. A topical anesthetic agent was used for oropharangeal anesthesia. A bite block was inserted. IV concious sedation was administered using propafol. A multifrequency, multiplane transesopheageal echocardiographic endoscope was inserted and manipulated in the standard fashion to achieve multiplane views. The usual views were obtained; basal, mid-esophageal, transgastric and aortic views . The patient's vital signs, including blood pressure, heart rate, pulse oximetry and cardiac rhythm were m onitored throughout the procedure and remained stable. The patient tolerated the procedure well without eviden ce of orophangeal or esophageal trauma. There were no complications. The patient was in atrial fibrillation with rapid ventricular response during the exam with a heart rate exceeding 100 bpm. Left Ventricle The left ventricle is normal in size. Left ventricular systolic function is normal. Ejection Fraction = 60- 65%. No regional wall motion abnormalities noted. Atria No thrombus is detected in the left atrial appendage. No left atrial mass or thrombus visualized. The interatrial septum is intact with no evidence for an atrial septal defect. Injection of contrast docu mented no interatrial shunt. Mitral Valve There is moderate mitral valve prolapse. Prolapse of the anterior mitral leaflet. There is no vegetat ion seen on the mitral valve. There is severe mitral regurgitation. The mitral regurgitant jet is posteriorly directed, which is consistent with anterior leaflet pathology. The mitral regurgitant jet is eccentrically dire cted. Flow reversal noted in pulmonary veins consistent with significant mitral regurgitation. Tricuspid Valve The tricuspid valve is not well visualized, but is grossly normal. There is no tricuspid valve vegeta tion. There is mild tricuspid regurgitation. Aortic Valve There is mild aortic sclerosis.;. There is no aortic valvular vegetation. Mild aortic regurgitation. Pulmonic Valve The pulmonic valve is not well visualized. There is no vegetation on the pulmonic valve. Great Vessels Small atherosclerotic plaque in descending thoracic aorta and aortic arch. Pericardium/Pluera There is no pericardial effusion. Interpretation Summary The left ventricle is normal in size. Left ventricular systolic function is normal. No regional wall motion abnormalities noted. Ejection Fraction = 60-65%. No thrombus is detected in the left atrial appendage. No left atrial mass or thrombus visualized. The interatrial septum is intact with no evidence for an atrial septal defect. Injection of contrast documented no interatrial shunt. There is moderate mitral valve prolapse. Prolapse of the anterior mitral leaflet. There is severe mitral regurgitation. The mitral regurgitant jet is eccentrically directed. The mitral regurgitant jet is posteriorly directed, which is consistent with anterior leaflet patholo gy. Flow reversal noted in pulmonary veins consistent with significant mitral regurgitation. There is mild tricuspid regurgitation. There is mild aortic sclerosis.; Mild aortic regurgitation. Small atherosclerotic plaque in descending thoracic aorta and aortic arch No obvious vegetations on any of the valves. Clinical correlation is recommended There is no pericardial effusion. Toni Mares MD 04/27/2018 02:15 PM
--- NOTE | 2018-04-27 14:19 | PN ---
Physical Exam: SUBJECTIVE: Patient seen and examined Patient sedated and intubated OBJECTIVE: Vital Signs Period Temp Pulse Resp BP Sys/Morgan Pulse Ox Last 24 Hr 98.2 F-98.8 F 62-150 16-23 95-137/59-90 94-100 GENERAL: sedated and intubated HEAD: Normal with no signs of trauma. EYES: PERRLA ENT: + L nares nasal packing, dry mucous membranes. NECK: Trachea midline LUNGS: + coarse breath sounds bilaterally, no wheezes, no crackles, no accessory muscle use. HEART: tachycardic and regular rhythm, S1, S2 without murmur, rub or gallop. ABDOMEN: Soft, nontender, nondistended, normoactive bowel sounds, no guarding, no rebound, no hepatosplenomegaly, no masses. EXTREMITIES: 2+ pulses, warm, well-perfused, no edema. NEUROLOGICAL: sedated and intubated PSYCH: Normal mood, normal affect. SKIN: Warm, dry, normal turgor, no rashes or lesions noted Laboratory Results - last 24 hr 04/23/18 04/26/18 04/27/18 11:30 11:18 05:30 WBC 7.1 RBC 3.03 L Hgb 9.1 L Hct 28.1 L MCV 92.8 MCH 30.2 MCHC 32.5 RDW 16.2 H Plt Count 63 L MPV 9.3 Absolute Neuts (auto) 6.8 Neutrophils % 95.7 H Neutrophils % (Manual) 97.0 H Band Neutrophils % 1.0 Lymphocytes % 1.8 L D Lymphocytes % (Manual) 0.0 L Monocytes % 2.4 L Monocytes % (Manual) 2 L D Eosinophils % 0.0 D Eosinophils % (Manual) 0.0 Basophils % 0.1 Basophils % (Manual) 0.0 Myelocytes % (Man) 0 Promyelocytes % (Man) 0 Blast Cells % (Manual) 0 Nucleated RBC % 1 H Metamyelocytes 0 Hypochromia 0 Platelet Estimate Decreased Polychromasia 0 Poikilocytosis 0 Anisocytosis 1+ Microcytosis 0 Macrocytosis 1+ PT with INR INR PTT (Actin FS) Sodium Potassium Chloride Carbon Dioxide Anion Gap BUN Creatinine Creat Clearance w eGFR POC Glucometer [id number] Random Glucose Calcium Phosphorus Magnesium Total Bilirubin AST ALT Alkaline Phosphatase Total Protein Albumin Blood Type B POSITIVE Antibody Screen Negative Crossmatch See Detail 04/27/18 04/27/18 04/27/18 05:30 08:31 08:31 WBC RBC Hgb Hct MCV MCH MCHC RDW Plt Count MPV Absolute Neuts (auto) Neutrophils % Neutrophils % (Manual) Band Neutrophils % Lymphocytes % Lymphocytes % (Manual) Monocytes % Monocytes % (Manual) Eosinophils % Eosinophils % (Manual) Basophils % Basophils % (Manual) Myelocytes % (Man) Promyelocytes % (Man) Blast Cells % (Manual) Nucleated RBC % Metamyelocytes Hypochromia Platelet Estimate Polychromasia Poikilocytosis Anisocytosis Microcytosis Macrocytosis PT with INR 13.50 H Cancelled INR 1.14 H Cancelled PTT (Actin FS) 28.9 Sodium 142 Potassium 3.9 Chloride 104 Carbon Dioxide 30 Anion Gap 8 BUN 18 Creatinine 0.3 L Creat Clearance w eGFR > 60 POC Glucometer Random Glucose 105 Calcium 7.4 L Phosphorus 2.0 L Magnesium 2.2 Total Bilirubin 0.4 AST 10 L ALT 30 Alkaline Phosphatase 62 Total Protein 4.8 L Albumin 1.9 L Blood Type Antibody Screen Crossmatch Active Medications Generic Name Dose Route Start Last Admin Trade Name Freq PRN Reason Stop Dose Admin Acetaminophen 650 mg 04/23/18 13:40 Tylenol - PO Q6H PRN FEVER Chlorhexidine Gluconate 1 applic 04/23/18 22:00 04/26/18 21:03 Hibiclens For Decolonization - TP Not Given HS TA Chlorhexidine Gluconate 15 ml 04/25/18 22:00 04/27/18 09:00 Peridex - MM 15 ml BID TA Administration Diltiazem HCl 30 mg 04/27/18 08:30 04/27/18 08:44 Cardizem - PO 30 mg TID TA Administration Midazolam HCl 100 mg/ Sodium 100 mls @ 1 mls/hr 04/24/18 04:15 04/27/18 11:31 Chloride IVPB 0 mg/hr TITR TA 0 mls/hr Titration Protocol 1 MG/HR Sodium Chloride 1,000 mls @ 75 mls/hr 04/24/18 05:30 04/27/18 10:15 Normal Saline - IV 75 mls/hr ASDIR TA Administration Famotidine/Sodium Chloride 20 mg in 50 mls @ 100 mls/hr 04/24/18 10:00 11:30 Pepcid 20 Mg Premixed Ivpb - IVPB 100 mls/hr BID TA Administration Daptomycin 500 mg/ Sodium 50 mls @ 100 mls/hr 04/25/18 10:00 04/27/18 12:52 Chloride IVPB 100 mls/hr DAILY TA Administration Protocol Diltiazem HCl 125 mg/ Sodium 125 mls @ 10 mls/hr 04/27/18 13:13 04/27/18 13: 16 Chloride IVPB 15 mg/hr TITR TA 15 mls/hr Administration Protocol 10 MG/HR Insulin Aspart 1 vial 04/24/18 11:00 04/27/18 14:14 Novolog Vial Sliding Scale - SQ Not Given ACHS TA Protocol Ipratropium [place] 1 amp 04/27/18 12:00 Atrovent 0.02% Nebulizer - NEB RQID TA Methylprednisolone Sodium Succinate 40 mg 04/26/18 18:00 04/27/18 11:31 Solu-Medrol - IVPUSH 40 mg Q8H-IV TA Administration Mupirocin 1 applic 04/23/18 22:00 04/27/18 09:15 Bactroban Ointment (For Decolonization) - NS 04/28/18 21:59 1 applic BID TA Administration ASSESSMENT/PLAN: Patient is a 67 yo M with history of COPD on home oxygen (3L), Interstitial lung disease, HTN, HLD, CHF, diastolic LV dysfunction, AR, CAD, GERD, hiatal hernia, recent dx of Afib with RVR on Eliquis (last dose 04/22 AM), presenting to the ER with a complaint of epistaxis, hypotension and tachycardia. Now admitted to ICU for septic shock. Pt was recently admitted for MRSA bacteremia, currently receiving Daptomycin via Right UE PICC line. ED Course notable for: - continued hypotension SBP 86-90 - HR 122 - Temp 100.2F rectal - 3L NS -> SBP 90-100s - CXR: focal mass at R apex unchanged from ID Septic Shock -likely 2/2 urosepsis - ID on case - monitor intake/ output maintain urine output of 1ml/kg/hr to 0.5ml/kg/hr - Keep MAP> 65 - femoral line removed - picc line removed - antibiotics as per ID, on daptomycin and meropenem - on hydrocortisone 50 q6h - blood and urine culture neg, sputum culture with gram negative bacilli - source of sepsis unclear - ct scan chest/abd/pelvis (04/25) : L upper air filled cabity in L upper chest , R upper fluid structure(possible abscess) - unchanged from 04/01, bilateral femoral head avascular necrosis, no prior CT abd/pelvis to compare. MRSA Bacteremia with suspicion of endocarditis, last admission - LUBNA completed (04/27) - LVEF 60-65%, moderate mitral valve prolapse, severe mitral regurgitation, mild tricuspid regurg, mild aortic regurg, mild aortic sclerosis Heme Acute blood loss, normocytic anemia, likely 2/2 epistaxis - Tranfusion goal of Hb > 8 - Hold Eliquis - nasal packing removed (04/27) w/o complications - ENT following (Dr. Clarke) - keep head end elevated - s/p 2 U prbc hb 7.9--->10.9-->9.7--> 9.1--> 9.1 Thrombocytopenia, baseline around 130-140 and since 03/02/18 has been decreasing to 80s, likely 2/2 sepsis and antibiotics - platelets 65--> 62-->70--> 57-->63 - Heme consulted, following case Epistaxis from the L nares - L nasal packing done in ED, ENT consulted ENT recommends nasal packing until Thursday - nasal packing removed (04/27) w/o complications Cardiac Diastolic LV dysfunc, CHF, phx AR, CAD, Afib w/ RVR - Last ECHO (03/31/18) - normal EF, L ventricular function normal, severe MR, moderate TR - Tele monitoring - Continue lipitor - Trop: neg - titrated off pressors - cardizem gtt 15mg/hr - Cardiology, Dr. Ca following HTN - hypotensive 2/2 septic shock - will hold home medications, valsartan Afib - on Eliquis at home, will hold in setting of coagulopathy, resume in AM pending hemostasis - [id number] score of 3 - if recurrent arrythmia consider antiarrhythmics/amiodarone Pulm COPD, uses 3L home oxygen continue 3L of oxygen, patient intubated - CXR daily - Ipratroprium neb F/E/N - NS @ 75ml/hr - Advance diet as tolerated - Electrolytes trend - Diabetic diet - sher cath PPX DVT: SCDs GI: pepcid BID Code Status: full code Dispo: Continue ICU monitoring. Visit type - Emergency Visit Emergency Visit: No - New Patient This patient is new to me today: No - Critical Care Critical Care patient: No
--- NOTE | 2018-04-27 14:48 | CONSULT ---
Consultation: REQUESTING PROVIDER: Dr. Leslie CONSULT REQUEST FOR HEMATOLOGY/ONCOLOGY: We have been asked to medically evaluate this patient for Thrombocytopenia. HISTORY OF PRESENT ILLNESS: Patient intubated and sedated. Information obtained from family at bedside and medical records. Patient is a 67 year old male with a PMHx of Atrial Fibrillation (On Eliquis), Advanced COPD (on 3L 02), Interstitial Lung disease, HTN, HLD, CAD s/p DC, Diastolic LV dysfunction, Recurrent Epistaxis who was BIBEMS from [facility] due to continuous epistaxis for several hours. According to medical records, patient was admitted last year (04/2017) for Epistaxis requiring blood transfusions. He was seen by ENT and it was determined that patient had epistaxis from picking at his nose, which he still admits to doing, according to records. In the ED patient was also found to be in severe sepsis with hypotension, tachycardia this admission with a recent history of positive blood cultures for MRSA from previous admission (03/2018) and was sent home with PICC line and Daptomycin. On labs, patient was found to have thrombocytopenia since 03/02/18 with a baseline around 130-140 but is now 50s-70's. We were consulted to further evaluate. Patient denies any history of malignancy, easy bleeding, or any diagnosis of bleeding disorders. Patient's family report only two episodes of epistaxis, both requiring admission. Patient's family denies any family history of blood disorders Otherwise, patient denies (by nodding yes or no) any chest pain, abdominal pain , vomiting, diarrhea, constipation, hematuria, melena, hematochezia, BRBPR, Dysuria. Patient's states he had colonoscopy done a few years ago and is due for one next week PMHx: Atrial Fibrillation (On Eliquis), Advanced COPD (on 3L 02), Interstitial Lung disease, HTN, HLD, CAD s/p DC, Diastolic LV dysfunction, Recurrent Epistaxis PSHx: Appendectomy, Hiatal hernia repair Social Hx: Former smoker, Denies alcohol or drug use Family Hx: Denies any history of blood disorders. Mother had Colon cancer REVIEW OF SYSTEMS: CONSTITUTIONAL: Absent: fever, chills, diaphoresis, generalized weakness, malaise, loss of appetite, weight change HEENT: Epistaxis Absent: rhinorrhea, nasal congestion, throat pain, throat swelling, difficulty swallowing, mouth swelling, ear pain, eye pain, visual changes CARDIOVASCULAR: Absent: chest pain, syncope, palpitations, irregular heart rate, lightheadedness , peripheral edema RESPIRATORY: Absent: cough, shortness of breath, dyspnea with exertion, orthopnea, wheezing, stridor, hemoptysis GASTROINTESTINAL: Absent: abdominal pain, abdominal distension, nausea, vomiting, diarrhea, constipation, melena, hematochezia GENITOURINARY: Absent: dysuria, frequency, urgency, hesitancy, hematuria, flank pain, genital pain MUSCULOSKELETAL: Absent: myalgia, arthralgia, joint swelling, back pain, neck pain SKIN: Absent: rash, itching, pallor HEMATOLOGIC/IMMUNOLOGIC: Absent: easy bleeding, easy bruising, lymphadenopathy, frequent infections ENDOCRINE: Absent: unexplained weight gain, unexplained weight loss, heat intolerance, cold intolerance NEUROLOGIC: Absent: headache, focal weakness or paresthesias, dizziness, unsteady gait, seizure, mental status changes, bladder or bowel incontinence PSYCHIATRIC: Absent: anxiety, depression, suicidal or homicidal ideation, hallucinations. PHYSICAL EXAMINATION Vital Signs - 24 hr 04/27/18 04/27/18 04/27/18 11:10 11:20 11:30 Temperature Pulse Rate 92 H 138 H 145 H Respiratory 21 H 19 21 H Rate Blood Pressure 134/60 123/88 110/90 O2 Sat by Pulse 100 98 99 Oximetry (%) 04/27/18 04/27/18 12:36 12:40 Temperature Pulse Rate 142 H 130 H Respiratory 20 Rate Blood Pressure 102/74 108/82 O2 Sat by Pulse Oximetry (%) GENERAL: Awake, alert, and intubated. Nodding to yes or no questions HEAD: Normal with no signs of trauma. EYES: Pupils equal, round and reactive to light, extraocular movements intact, sclera anicteric, conjunctiva clear. ENT: Rhinorocket in place, ET tube in place NECK: (-) lymphadenopathy, JVD, or masses. LUNGS: Diminished breath sounds Bilaterally with scattered Rhonchi bilaterally. No accessory muscle use. HEART: Tachycardic with irregularly rhythm, normal S1 and S2 ABDOMEN: Soft, nontender, not distended, normoactive bowel sounds, no guarding, no rebound, no masses. No hepatomegaly or splenomegaly. EXTREMITIES: 2+ pulses, warm, well-perfused. No calf tenderness. No peripheral edema. NEUROLOGICAL: unable to assess SKIN: Warm, dry, normal turgor, no rashes or lesions noted. Laboratory Results - last 24 hr 04/23/18 04/26/18 04/27/18 11:30 11:18 05:30 WBC 7.1 RBC 3.03 L Hgb 9.1 L Hct 28.1 L MCV 92.8 MCH 30.2 MCHC 32.5 RDW 16.2 H Plt Count 63 L MPV 9.3 Absolute Neuts (auto) 6.8 Neutrophils % 95.7 H Neutrophils % (Manual) 97.0 H Band Neutrophils % 1.0 Lymphocytes % 1.8 L D Lymphocytes % (Manual) 0.0 L Monocytes % 2.4 L Monocytes % (Manual) 2 L D Eosinophils % 0.0 D Eosinophils % (Manual) 0.0 Basophils % 0.1 Basophils % (Manual) 0.0 Myelocytes % (Man) 0 Promyelocytes % (Man) 0 Blast Cells % (Manual) 0 Nucleated RBC % 1 H Metamyelocytes 0 Hypochromia 0 Platelet Estimate Decreased Polychromasia 0 Poikilocytosis 0 Anisocytosis 1+ Microcytosis 0 Macrocytosis 1+ PT with INR INR PTT (Actin FS) Sodium Potassium Chloride Carbon Dioxide Anion Gap BUN Creatinine Creat Clearance w eGFR POC Glucometer [id number] Random Glucose Calcium Phosphorus Magnesium Total Bilirubin AST ALT Alkaline Phosphatase Total Protein Albumin Blood Type B POSITIVE Antibody Screen Negative Crossmatch See Detail 04/27/18 04/27/18 04/27/18 05:30 08:31 08:31 WBC RBC Hgb Hct MCV MCH MCHC RDW Plt Count MPV Absolute Neuts (auto) Neutrophils % Neutrophils % (Manual) Band Neutrophils % Lymphocytes % Lymphocytes % (Manual) Monocytes % Monocytes % (Manual) Eosinophils % Eosinophils % (Manual) Basophils % Basophils % (Manual) Myelocytes % (Man) Promyelocytes % (Man) Blast Cells % (Manual) Nucleated RBC % Metamyelocytes Hypochromia Platelet Estimate Polychromasia Poikilocytosis Anisocytosis Microcytosis Macrocytosis PT with INR 13.50 H Cancelled INR 1.14 H Cancelled PTT (Actin FS) 28.9 Sodium 142 Potassium 3.9 Chloride 104 Carbon Dioxide 30 Anion Gap 8 BUN 18 Creatinine 0.3 L Creat Clearance w eGFR > 60 POC Glucometer Random Glucose 105 Calcium 7.4 L Phosphorus 2.0 L Magnesium 2.2 Total Bilirubin 0.4 AST 10 L ALT 30 Alkaline Phosphatase 62 Total Protein 4.8 L Albumin 1.9 L Blood Type Antibody Screen Crossmatch Active Medications Generic Name Dose Route Start Last Admin Trade Name Freq PRN Reason Stop Dose Admin Acetaminophen 650 mg 04/23/18 13:40 Tylenol - PO Q6H PRN FEVER Chlorhexidine Gluconate 1 applic 04/23/18 22:00 04/26/18 21:03 Hibiclens For Decolonization - TP Not Given HS TA Chlorhexidine Gluconate 15 ml 04/25/18 22:00 04/27/18 09:00 Peridex - MM 15 ml BID TA Administration Diltiazem HCl 30 mg 04/27/18 08:30 04/27/18 08:44 Cardizem - PO 30 mg TID TA Administration Midazolam HCl 100 mg/ Sodium 100 mls @ 1 mls/hr 04/24/18 04:15 04/27/18 11:31 Chloride IVPB 0 mg/hr TITR TA 0 mls/hr Titration Protocol 1 MG/HR Sodium Chloride 1,000 mls @ 75 mls/hr 04/24/18 05:30 04/27/18 10:15 Normal Saline - IV 75 mls/hr ASDIR TA Administration Famotidine/Sodium Chloride 20 mg in 50 mls @ 100 mls/hr 04/24/18 10:00 11:30 Pepcid 20 Mg Premixed Ivpb - IVPB 100 mls/hr BID TA Administration Daptomycin 500 mg/ Sodium 50 mls @ 100 mls/hr 04/25/18 10:00 04/27/18 12:52 Chloride IVPB 100 mls/hr DAILY TA Administration Protocol Diltiazem HCl 125 mg/ Sodium 125 mls @ 10 mls/hr 04/27/18 13:13 04/27/18 13: 16 Chloride IVPB 15 mg/hr TITR TA 15 mls/hr Administration Protocol 10 MG/HR Insulin Aspart 1 vial 04/24/18 11:00 04/27/18 14:14 Novolog Vial Sliding Scale - SQ Not Given ACHS TA Protocol Ipratropium [place] 1 amp 04/27/18 12:00 Atrovent 0.02% Nebulizer - NEB RQID TA Methylprednisolone Sodium Succinate 40 mg 04/26/18 18:00 04/27/18 11:31 Solu-Medrol - IVPUSH 40 mg Q8H-IV TA Administration Mupirocin 1 applic 04/23/18 22:00 04/27/18 09:15 Bactroban Ointment (For Decolonization) - NS 04/28/18 21:59 1 applic BID TA Administration ASSESSMENT/PLAN: Patient is a 67 year old male who presented for recurrent epistaxis and was found to be in Severe Sepsis of unknown etiology. Patient's lab work revealed thrombocytopenia and we were consulted for further evaluation and recommendation. Problem List: Epistaxis Thrombocytopenia Severe Sepsis MRSA bacteremia Atrial Fibrillation (On eliquis) Advanced COPD (on 3 02) Interstitial Lung disease HTN HLD CAD s/p DC Diastolic LV dysfunction PLAN: -Prior to March 2018, patient had platelet count between 130s-140's and since March platelet count was ranging between 60s-80's but stable. Unsure of etiology at this time but may be component of sepsis vs HIT (Unlikely though). Patient also has ITP like syndrome but will start and order HIT ab. -Will order Thyroid panel Visit type - Emergency Visit Emergency Visit: Yes ED Registration Date: 04/23/18 Care time: The patient presented to the Emergency Department on the above date and was hospitalized for further evaluation of their emergent condition. - New Patient This patient is new to me today: Yes Date on this admission: 04/27/18 - Critical Care Critical Care patient: Yes Total Critical Care Time (in minutes): 45 Critical Care Statement: The care of this patient involved high complexity decision making to prevent further life threatening deterioration of the patient 's condition and/or to evaluate & treat vital organ system(s) failure or risk of failure.
[2018-04-27] MEDS: METOPROLOL TARTRATE 5 MG/5 ML VIAL IVPUSH PRN (14:52)
--- NOTE | 2018-04-27 19:13 | PN ---
Progress Note (short form) - Note Progress Note: ENT nasal packing removed today no further bleeding pt received two units of PRBC known history of nasal septal perforation PE NAD intubated +spontaneous eye opening, responsive to voice nose: packing is out, no bleeding +septal perforation, sl dry blood anterior left nostril margin +orotracheal tube in place, secure, functioning Impression: epistaxis, resolved nasal septal perforation, chronic Recommend: nasal saline spray bid observe for bleeding Peter Reid MD FACS Problem List - Problems (1) Epistaxis, recurrent Code(s): R04.0 - EPISTAXIS
[2018-04-27] MEDS: CHLORHEXIDINE GLUCONATE 4% CLEANSER FOR DECOLONIZATION TP SCH (21:45)
[2018-04-28] MEDS ORDERED: MIDAZOLAM HCL 5 MG/1 ML Single Dose Vial IVPUSH ONE (00:50)
[2018-04-28] MEDS: methylPREDNISolone NA SUCC 40 MG/1 ML VIAL IVPUSH SCH ×3 (01:29→17:46)
[2018-04-28] MEDS: MIDAZOLAM 100 MG in SODIUM CHLORIDE 100 ML IVPB SCH (05:01)
[2018-04-28 06:34] LABS: BASO % 0.2 % (0-2.0); HEMATOCRIT 29.1 % (35.4-49); HEMOGLOBIN 9.7 GM/dL (11.7-16.9); LYMPH % 1.3 % (8-40); MCH 30.8 pg (25.7-33.7); MCHC 33.4 g/dl (32.0-35.9); MEAN CELL VOLUME 92.3 fl (80-96); MONO % 2.9 % (3.8-10.2); NEUT % 95.6 % (42.8-82.8); PLATELET COUNT 78 K/MM3 (134-434); RBC 3.16 M/mm3 (4.00-5.60); RDW 15.8 % (11.9-15.9); WHITE BLOOD COUNT 8.9 K/mm3 (4.0-10.0)
[2018-04-28 07:01] LABS: ARTERIAL BLD GAS O2 SATURATION 97.8 % (90-98.9); ARTERIAL BLOOD GAS BASE EXCESS 4.7 meq/l (-2-2); ARTERIAL BLOOD GAS PCO2 48.5 mmHg (35-45); ARTERIAL BLOOD GAS pH 7.41 (7.35-7.45)
[2018-04-28] MEDS: SODIUM CHLORIDE 1,000 ML IV SCH ×2 (07:02→10:55)
[2018-04-28] MEDS: INSULIN SLIDING SCALE (NOVOLOG) 1 VIAL SQ SCH ×4 (07:03→22:02)
[2018-04-28] MEDS: IPRATROPIUM BR 0.02% 0.5 MG/2.5 ML VIAL.NEB. NEB SCH ×4 (07:07→21:00)
--- NOTE | 2018-04-28 08:13 | PN ---
Teaching Attending Note Name of Resident: Deandra Murray ATTENDING PHYSICIAN STATEMENT I saw and evaluated the patient. I reviewed the resident's note and discussed the case with the resident. I agree with the resident's findings and plan as documented. SUBJECTIVE: Patient seen and examined Currently intubated and awake , responsive to questioning No nasal bleeding Nasal packing removed Last Vital Signs Temp Pulse Resp BP Pulse Ox 97.7 F 74 20 148/64 95 04/28/18 06:00 04/28/18 06:00 04/28/18 06:45 04/28/18 06:00 04/28/18 07:35 HEENT: SHAKIRA, EOM Intact Oropharynx: ET tube Neck: Supple Cor: RSR, No murmurs, No gallops Lungs: rhonchi Abd: Soft, Normal bowel sounds, No organomegaly Bowling catheter Ext:No significant edema Skin: No rashes, Integument intact CBC, BMP 04/28/18 05:30 INR, PTT INR 1.14 (0.83-1.09) H 04/27/18 08:31 Current Medications Generic Name Dose Route Start Last Admin Trade Name Freq PRN Reason Stop Dose Admin Acetaminophen 650 mg 04/23/18 13:40 Tylenol - PO Q6H PRN FEVER Chlorhexidine Gluconate 1 applic 04/23/18 22:00 04/27/18 21:45 Hibiclens For Decolonization - TP Not Given HS TA Chlorhexidine Gluconate 15 ml 04/25/18 22:00 04/27/18 21:45 Peridex - MM 15 ml BID TA Administration Sodium Chloride 1,000 mls @ 75 mls/hr 04/24/18 05:30 04/28/18 07:02 Normal Saline - IV 75 mls/hr ASDIR TA Administration Famotidine/Sodium Chloride 20 mg in 50 mls @ 100 mls/hr 04/24/18 10:00 21:45 Pepcid 20 Mg Premixed Ivpb - IVPB 100 mls/hr BID TA Administration Daptomycin 500 mg/ Sodium 50 mls @ 100 mls/hr 04/25/18 10:00 04/27/18 12:52 Chloride IVPB 100 mls/hr DAILY TA Administration Protocol Diltiazem HCl 125 mg/ Sodium 125 mls @ 10 mls/hr 04/27/18 13:13 04/28/18 00: 00 Chloride IVPB 2.5 mg/hr TITR TA 2.5 mls/hr Titration Protocol 10 MG/HR Insulin Aspart 1 vial 04/24/18 11:00 04/28/18 07:03 Novolog Vial Sliding Scale - SQ Not Given ACHS TA Protocol Ipratropium [place] 1 amp 04/27/18 12:00 04/28/18 07:07 Atrovent 0.02% Nebulizer - NEB 1 amp RQID TA Administration Methylprednisolone Sodium Succinate 40 mg 04/26/18 18:00 04/28/18 01:29 Solu-Medrol - IVPUSH 40 mg Q8H-IV TA Administration Metoprolol Tartrate 5 mg 04/27/18 14:35 04/27/18 14:52 Lopressor Injection - IVPUSH 5 mg Q4H PRN Administration TACHYCARDIA Mupirocin 1 applic 04/23/18 22:00 04/27/18 21:44 Bactroban Ointment (For Decolonization) - NS 04/28/18 21:59 1 applic BID TA Administration Acute on Chronic Hypoxic and Hypercapneic Respiratory Failure UTI Septic Shock Lactic Acidosis Epistaxis Acute on Chronic Diastolic Heart Failure Severe Mitral Regurgitation Thrombocytopenia CAD COPD Pulmonary HTN Paroxysmal Atrial Fibrillation HTN OBJECTIVE:Suspect most likely etiology for thrombocytopenia is underlying infection with MRSA bacteremia. Currently no further epistaxis and no need for blood bank replacement therapy. Mild increase in INR also noted At this point , would monitor and follow. ASSESSMENT AND PLAN:
[2018-04-28 08:34] LABS: ALBUMIN 2.1 g/dl (3.4-5.0); ALK PHOS 68 U/L (45-117); ANION GAP 6 MMOL/L (8-16); BILIRUBIN,TOTAL 0.5 mg/dL (0.2-1); BLOOD UREA NITROGEN 21 mg/dL (7-18); CALCIUM 7.5 mg/dL (8.5-10.1); CHLORIDE 105 mmol/L (98-107); CO2 31 mmol/L (21-32); CREATININE 0.3 mg/dL (0.55-1.3); GLUCOSE,RANDOM 119 mg/dL (74-106); MAGNESIUM 2.5 mg/dL (1.8-2.4); PHOSPHOROUS 1.9 mg/dL (2.5-4.9); POTASSIUM 3.9 mmol/L (3.5-5.1); SGOT/AST 15 U/L (15-37); SGPT/ALT 31 U/L (13-61); SODIUM 142 mmol/L (136-145); TOT PROT 5.2 g/dl (6.4-8.2)
--- NOTE | 2018-04-28 09:19 | PN ---
Progress Note (short form) - Note Progress Note: awake and alert remains intubated moderate to severe MR on LUBNA- no vegetation Vital Signs Period Temp Pulse Resp BP Sys/Morgan Pulse Ox Last 24 Hr 97.4 F-98.2 F 62-150 16-24 93-148/55-90 95-100 cor-rrr lungs decreased bs at bases abd soft,nt ext no edema CBC, BMP 04/28/18 05:30 04/28/18 05:30 Microbiology 04/23/18 12:52 Blood - Peripheral Venous Blood Culture - Preliminary NO GROWTH OBTAINED AFTER 96 HOURS, INCUBATION TO CONTINUE FOR 1 DAYS. 04/23/18 11:30 Blood - Peripheral Venous Blood Culture - Preliminary NO GROWTH OBTAINED AFTER 96 HOURS, INCUBATION TO CONTINUE FOR 1 DAYS. 04/24/18 18:00 Sputum - Endotrachea Suction/Ventilator Gram Stain - Final 04/24/18 18:00 Sputum - Endotrachea Suction/Ventilator Sputum Culture - Final Enterobacter Aerogenes 04/26/18 10:00 Urine - Urine Bowling Legionella Antigen - Final 04/26/18 10:00 Urine - Urine Bowling Streptococcus pneumoniae Antigen (M - Final 04/23/18 13:00 Urine - Urine Clean Catch Urine Culture - Final NO GROWTH OBTAINED Current Medications Acetaminophen (Tylenol -) 650 mg PO Q6H PRN PRN Reason: FEVER Chlorhexidine Gluconate (Hibiclens For Decolonization -) 1 applic TP HS [facility] Last Admin: 04/27/18 21:45 Dose: Not Given Chlorhexidine Gluconate (Peridex -) 15 ml MM BID [facility] Last Admin: 04/27/18 21:45 Dose: 15 ml Sodium Chloride (Normal Saline -) 1,000 mls @ 75 mls/hr IV ASDIR [facility] Last Admin: 04/28/18 07:02 Dose: 75 mls/hr Famotidine/Sodium Chloride (Pepcid 20 Mg Premixed Ivpb -) 20 mg in 50 mls @ 100 mls/hr IVPB BID [facility] Last Admin: 04/27/18 21:45 Dose: 100 mls/hr Daptomycin 500 mg/ Sodium (Chloride) 50 mls @ 100 mls/hr IVPB DAILY [facility]; Protocol Last Admin: 04/27/18 12:52 Dose: 100 mls/hr Diltiazem HCl 125 mg/ Sodium (Chloride) 125 mls @ 10 mls/hr IVPB TITR TA; Protocol Last Titration: 04/28/18 00:00 Dose: 2.5 mg/hr, 2.5 mls/hr Insulin Aspart (Novolog Vial Sliding Scale -) 1 vial SQ ACHS TA; Protocol Last Admin: 04/28/18 07:03 Dose: Not Given Ipratropium [place] (Atrovent 0.02% Nebulizer -) 1 amp NEB RQID TA Last Admin: 04/28/18 07:07 Dose: 1 amp Methylprednisolone Sodium Succinate (Solu-Medrol -) 40 mg IVPUSH Q8H-IV TA Last Admin: 04/28/18 01:29 Dose: 40 mg Metoprolol Tartrate (Lopressor Injection -) 5 mg IVPUSH Q4H PRN PRN Reason: TACHYCARDIA Last Admin: 04/27/18 14:52 Dose: 5 mg Mupirocin (Bactroban Ointment (For Decolonization) -) 1 applic NS BID TA Stop: 04/28/18 21:59 Last Admin: 04/27/18 21:44 Dose: 1 applic a/p FUO respiratory failure MRSA bacteremia-day #29 MRSA treatment plan total 42 days LUBNA no vegetations-severe mitral regurgitation thrombocytopenia endstage COPD d/c daptomycin switch to vancomycin no signs pneumonia or other Gram negative infection WBC tagged study-d/w radiology- will not be possible or aid in evaluating the RUL collection plan for biopsy/drainage when extubated d/w Dr Leslie d/w icu resident
--- NOTE | 2018-04-28 09:24 | PN ---
Progress Note, Physician - Current Medication List Current Medications: Active Medications Acetaminophen (Tylenol -) 650 mg PO Q6H PRN PRN Reason: FEVER Chlorhexidine Gluconate (Hibiclens For Decolonization -) 1 applic TP HS [facility] Last Admin: 04/27/18 21:45 Dose: Not Given Chlorhexidine Gluconate (Peridex -) 15 ml MM BID TA Last Admin: 04/27/18 21:45 Dose: 15 ml Sodium Chloride (Normal Saline -) 1,000 mls @ 75 mls/hr IV ASDIR TA Last Admin: 04/28/18 07:02 Dose: 75 mls/hr Famotidine/Sodium Chloride (Pepcid 20 Mg Premixed Ivpb -) 20 mg in 50 mls @ 100 mls/hr IVPB BID TA Last Admin: 04/27/18 21:45 Dose: 100 mls/hr Diltiazem HCl 125 mg/ Sodium (Chloride) 125 mls @ 10 mls/hr IVPB TITR TA; Protocol Last Titration: 04/28/18 00:00 Dose: 2.5 mg/hr, 2.5 mls/hr Vancomycin HCl 1,000 mg/ (Dextrose) 250 mls @ 166.667 mls/hr IVPB Q12H TA; Protocol Insulin Aspart (Novolog Vial Sliding Scale -) 1 vial SQ ACHS TA; Protocol Last Admin: 04/28/18 07:03 Dose: Not Given Ipratropium [place] (Atrovent 0.02% Nebulizer -) 1 amp NEB RQID [facility] Last Admin: 04/28/18 07:07 Dose: 1 amp Methylprednisolone Sodium Succinate (Solu-Medrol -) 40 mg IVPUSH Q8H-IV [facility] Last Admin: 04/28/18 01:29 Dose: 40 mg Metoprolol Tartrate (Lopressor Injection -) 5 mg IVPUSH Q4H PRN PRN Reason: TACHYCARDIA Last Admin: 04/27/18 14:52 Dose: 5 mg Mupirocin (Bactroban Ointment (For Decolonization) -) 1 applic NS BID [facility] Stop: 04/28/18 21:59 Last Admin: 04/27/18 21:44 Dose: 1 applic - Objective Vital Signs: Vital Signs Temperature 97.7 F 04/28/18 06:00 Pulse Rate 78 04/28/18 08:00 Respiratory Rate 20 04/28/18 08:10 Blood Pressure 130/73 04/28/18 08:00 O2 Sat by Pulse Oximetry (%) 95 04/28/18 07:35 Cardiovascular: Yes: S1, S2 Respiratory: Yes: Mechanically Ventilated Gastrointestinal: Yes: Normal Bowel Sounds, Soft Labs: CBC, BMP 04/28/18 05:30 04/28/18 05:30 INR, PTT INR 1.14 (0.83-1.09) H 04/27/18 08:31 Problem List - Problems (1) Fever Assessment/Plan: -resolved cultures Microbiology 04/23/18 12:52 Blood - Peripheral Venous Blood Culture - Preliminary NO GROWTH OBTAINED AFTER 72 HOURS, INCUBATION TO CONTINUE FOR 2 DAYS. 04/26/18 10:00 Urine - Urine Bowling Legionella Antigen - Final 04/26/18 10:00 Urine - Urine Bowling Streptococcus pneumoniae Antigen (M - Final 04/23/18 11:30 Blood - Peripheral Venous Blood Culture - Preliminary NO GROWTH OBTAINED AFTER 72 HOURS, INCUBATION TO CONTINUE FOR 2 DAYS. 04/24/18 18:00 Sputum - Endotrachea Suction/Ventilator Gram Stain - Final 04/24/18 18:00 Sputum - Endotrachea Suction/Ventilator Sputum Culture - Preliminary Lactose Fermenting Neg Bacilli 04/23/18 13:00 Urine - Urine Clean Catch Urine Culture - Final NO GROWTH OBTAINED ID consult--discussed abx to be assessed isolation for MRSA ivf ICU abx per id Orders 04/23/18 18:45 Meropenem [Merrem (Restricted To Id) -] 1 gm Dextrose 5%-Water [Dextrose 5% Water Minibag 100ML] 100 ml IVPB Q8H-IV 04/25/18 10:00 Daptomycin [Cubicin (Restricted To Id) -] 500 mg Sodium Chloride [Normal Saline -] 50 ml IVPB DAILY Code(s): R50.9 - FEVER, UNSPECIFIED (2) Acute and chronic respiratory failure with hypercapnia Assessment/Plan: Vent support pulm oxygen bronchodilators weaning per pulm Code(s): J96.22 - ACUTE AND CHRONIC RESPIRATORY FAILURE WITH HYPERCAPNIA (3) Anemia Assessment/Plan: Monitor Laboratory Tests 04/24/18 04/25/18 05:15 08:55 Hgb 10.9 L 9.7 L Code(s): D64.9 - ANEMIA, UNSPECIFIED Qualifiers: Qualified Code(s): D64.9 - Anemia, unspecified (4) COPD (chronic obstructive pulmonary disease) Assessment/Plan: -As Above Code(s): J44.9 - CHRONIC OBSTRUCTIVE PULMONARY DISEASE, UNSPECIFIED Qualifiers: Qualified Code(s): J44.9 - Chronic obstructive pulmonary disease, unspecified (5) MRSA bacteremia Assessment/Plan: daptomycin via picc line isolation ID consult and follow up noted LUBNA done no vegetation Code(s): R78.81 - BACTEREMIA (6) Nasal hemorrhage Assessment/Plan: ( ENT consult noted nasal packing monitor h/h prbc Code(s): R04.0 - EPISTAXIS (7) Afib Assessment/Plan: icu cardizem hold for now- hold AC Code(s): I48.91 - UNSPECIFIED ATRIAL FIBRILLATION
[2018-04-28] MEDS: METOPROLOL TARTRATE 5 MG/5 ML VIAL IVPUSH PRN (09:58)
[2018-04-28] MEDS ORDERED: POTASSIUM PHOSPHATE 30 MM in DEXTROSE 5%-WATER - 250 ML IVPB ONE (10:06)
[2018-04-28] MEDS ORDERED: METOPROLOL TARTRATE 5 MG/5 ML VIAL IVPUSH ONE (10:07)
[2018-04-28] MEDS ORDERED: dilTIAZem HCL 50 MG/10 ML - 10 ML VIAL ONE (10:45)
[2018-04-28] MEDS: DILTIAZEM INJECTION 125 MG in SODIUM CHLORIDE 100 ML IVPB SCH ×2 (10:51→13:24)
--- NOTE | 2018-04-28 10:52 | PN ---
Progress Note (short form) - Note Progress Note: ENT pt remains intubated on ventilator no nasal bleeding Impression: epistaxis, resolved nasal septal perforation, chronic respiratory failure on ventilator Recommend: continue present management nasal saline spray Peter Reid MD FACS Problem List - Problems (1) Epistaxis, recurrent Code(s): R04.0 - EPISTAXIS
[2018-04-28] MEDS ORDERED: PROPOFOL 1,000,000 MCG/100 ML VIAL ONE (10:59)
--- NOTE | 2018-04-28 11:08 | CON.ORTH ---
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 large left inguinal hernia and ventral hernia. 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 History of Recent Travel: No Home Medications - Allergies Allergies/Adverse Reactions: Allergies Allergy/AdvReac Type Severity Reaction Status Date / Time moxifloxacin HCl Allergy Severe Verified 04/23/18 11:13 [From Avelox] aclidinium bromide Allergy Verified 04/23/18 11:13 [From Tudorza Pressair] shellfish derived Allergy Verified 04/23/18 11:13 - Home Medications Home Medications: Ambulatory Orders Arformoterol Tartrate [Brovana] 15 mcg IH BID 02/08/14 Alprazolam [Xanax] 0.5 mg PO Q12H PRN tablet MDD 2 04/07/18 Amino Acids/Protein Hydrolys [Prosource No Carb Liquid Pkt] 30 ml PO BID@0800, 1730 packet 04/07/18 Atorvastatin Ca [Lipitor] 10 mg PO HS tablet 04/07/18 Bisacodyl [Bisacodyl -] 5 mg PO DAILY PRN tablet. 04/07/18 Budesonide/Formeterol Fumarate [SYMBICORT 160/4.5mcg -] 2 puff IH BID inhaler 04/07/18 Ceftaroline Fosamil Acetate [Teflaro (Restricted To Id)] 600 mg IVPB Q8H-IV vial 04/07/18 Daptomycin [Cubicin (Restricted To Id) -] 500 mg IVPB DAILY vial 04/07/18 Diltiazem Cd [Cardizem Cd -] 120 mg PO DAILY cap.cd.24h 04/07/18 Escitalopram Oxalate [Lexapro -] 20 mg PO DAILY tablet 04/07/18 Ferrous Sulfate [Feosol] 325 mg PO DAILY ud 04/07/18 Insulin Sliding Scale [Novolog Vial Sliding Scale -] 1 vial SQ ACHS units 04/07 Lactobacillus Acidophilus [Bacid -] 1 tab PO DAILY tab 04/07/18 Pantoprazole Sodium [Protonix -] 40 mg PO BID tablet.ec 04/07/18 Picc Line Flush [Picc Line Flush -] 8 ml IVPUSH PRN PRN ml 04/07/18 Polyethylene Glycol 3350 [Miralax 119 gm Btl -] 17 gm PO DAILY bottle 04/07/18 Sitagliptin Phosphate [Januvia -] 100 mg PO DAILY@0700 ud 04/07/18 Tamsulosin HCl [Flomax -] 0.4 mg PO DAILY@0830 cap.er.24h 04/07/18 Tiotropium [place] [Spiriva Respimat] 2 puff IH DAILY inhaler 04/07/18 Valsartan [Diovan] 40 mg PO DAILY tablet 04/07/18 predniSONE [Deltasone -] 20 mg PO BID tablet 04/07/18 Acetaminophen [Tylenol] 325 mg PO Q6H PRN 04/23/18 Albuterol 0.083% Nebulizer [place] [Ventolin 0.083%] 1 neb NEB Q4H 04/23/18 Apixaban [Eliquis -] 5 mg PO BID 04/23/18 Apixaban [Eliquis -] 5 mg PO DAILY 04/23/18 Family Disease History - Family Disease History Family Disease History: Heart Disease: Father ( 67 of [place]), CA: Mother ( 67 colon cancer) Physical Exam for Ortho Vital Signs: Vital Signs Temperature 97.7 F 04/28/18 06:00 Pulse Rate 140 H 04/28/18 10:18 Respiratory Rate 23 H 04/28/18 09:30 Blood Pressure 109/4 L 04/28/18 10:18 O2 Sat by Pulse Oximetry (%) 95 04/28/18 07:35 Labs: CBC, BMP 04/28/18 05:30 04/28/18 05:30 INR, PTT INR 1.14 (0.83-1.09) H 04/27/18 08:31 Imaging - Results Cat Scan: Report Reviewed, Image Reviewed Assessment/Plan atient is a 67 yo M with history of COPD on home oxygen, Interstitial lung disease, HTN, HLD, CHF, diastolic LV dysfunction, [place], CAD, GERD, hiatal hernia, recent dx of Afib with RVR on Eliquis, Admitted for epistaxis, hypotension and tachycardia. Currently bacteremic and intubated. 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 Ryder
[2018-04-28] MEDS ORDERED: PROPOFOL 1,000,000 MCG/100 ML VIAL IVPB SCH (11:15)
[2018-04-28] MEDS: FAMOTIDINE 20 MG/50 ML IVPB 20 MG/50 ML MG IVPB SCH ×2 (11:46→21:32)
[2018-04-28] MEDS: VANCOMYCIN 1 GRAM (PRE-DOCKED) 1,000 MG/250 ML BAG IVPB SCH ×2 (11:47→21:32)
[2018-04-28] MEDS: CHLORHEXIDINE GLUCONATE 0.12% 15ML CUP MM SCH ×2 (11:50→21:32)
--- NOTE | 2018-04-28 12:13 | PN ---
Teaching Attending Note Name of Resident: Candida Parnell ATTENDING PHYSICIAN STATEMENT I saw and evaluated the patient. I reviewed the resident's note and discussed the case with the resident. I agree with the resident's findings and plan as documented. SUBJECTIVE: Pt seen and examined in the ICU. Remains intubated, was awake off sedation but tachypneic with accessory muscle use on CPAP/PS 10/5. Rapid atrial fibrillation now improved on cardizem gtt and lopressor pushes. OBJECTIVE: Vital Signs Period Temp Pulse Resp BP Sys/Morgan Pulse Ox Last 24 Hr 97.4 F-98.2 F 62-150 18-24 93-148/4-82 95-98 Intake & Output 04/25/18 04/26/18 04/27/18 04/28/18 23:59 23:59 23:59 23:59 Intake Total 3311 1715 2429 942.5 Output Total 1025 1130 1000 300 Balance 2286 585 1429 642.5 Weight 58.967 kg 60.6 kg 60.5 kg Gen: intubated, sedated Heart: RRR Lung: scattered rhonchi Abd: soft, nontender Ext: no edema CBC, BMP 04/28/18 05:30 04/28/18 05:30 Active Medications Acetaminophen (Tylenol -) 650 mg PO Q6H PRN PRN Reason: FEVER Chlorhexidine Gluconate (Hibiclens For Decolonization -) 1 applic TP HS [facility] Last Admin: 04/27/18 21:45 Dose: Not Given Chlorhexidine Gluconate (Peridex -) 15 ml MM BID [facility] Last Admin: 04/28/18 11:50 Dose: 15 ml Sodium Chloride (Normal Saline -) 1,000 mls @ 75 mls/hr IV ASDIR [facility] Last Admin: 04/28/18 10:55 Dose: 75 mls/hr Famotidine/Sodium Chloride (Pepcid 20 Mg Premixed Ivpb -) 20 mg in 50 mls @ 100 mls/hr IVPB BID TA Last Admin: 04/28/18 11:46 Dose: 100 mls/hr Diltiazem HCl 125 mg/ Sodium (Chloride) 125 mls @ 10 mls/hr IVPB TITR TA; Protocol Last Admin: 04/28/18 10:51 Dose: 5 mg/hr, 5 mls/hr Vancomycin HCl (Vancomycin (Pre-Docked)) 1,000 mg in 250 mls @ 166.667 mls/hr IVPB BID [facility]; Protocol Last Admin: 04/28/18 11:47 Dose: 166.667 mls/hr Potassium Phosphate 30 mm/ (Dextrose) 260 mls @ 43.333 mls/hr IVPB ONCE ONE Stop: 04/28/18 16:05 Propofol (Diprivan -) 1,000,000 mcg in 100 mls @ 1.815 mls/hr IVPB TITR TA; Protocol Last Admin: 04/28/18 11:10 Dose: 25 mcg/kg/min, 9.075 mls/hr Insulin Aspart (Novolog Vial Sliding Scale -) 1 vial SQ ACHS [facility]; Protocol Last Admin: 04/28/18 07:03 Dose: Not Given Ipratropium [place] (Atrovent 0.02% Nebulizer -) 1 amp NEB RQID TA Last Admin: 04/28/18 07:07 Dose: 1 amp Methylprednisolone Sodium Succinate (Solu-Medrol -) 40 mg IVPUSH Q8H-IV TA Last Admin: 04/28/18 10:56 Dose: 40 mg Metoprolol Tartrate (Lopressor Injection -) 5 mg IVPUSH Q4H PRN PRN Reason: TACHYCARDIA Last Admin: 04/28/18 09:58 Dose: 5 mg Mupirocin (Bactroban Ointment (For Decolonization) -) 1 applic NS BID [facility] Stop: 04/28/18 21:59 Last Admin: 04/27/18 21:44 Dose: 1 applic ASSESSMENT AND PLAN: Acute on Chronic Hypoxic and Hypercapneic Respiratory Failure UTI Septic Shock Lactic Acidosis Epistaxis Acute on Chronic Diastolic Heart Failure Severe Mitral Regurgitation Thrombocytopenia CAD COPD Pulmonary HTN Paroxysmal Atrial Fibrillation HTN Hypercholesterolemia - continue antibiotics - off pressors, maintain MAP >65 - monitor urine output, creatinine - monitor CBC - holding anticoagulation for thrombocytopenia - rate control with cardizem gtt, lopressor IVP - continue empiric steroids - inhaled bronchodilators - O2 to keep SpO2 >90% - daily sedation vacations to assess mental status - spontaneous breathing trials as tolerated when mental status improved - enteral feeds - DVT/GI prophylaxis - continue ICU monitoring critical care time spent in reviewing chart, evaluating patient and formulating plan 35 min
--- NOTE | 2018-04-28 13:04 | PN ---
Physical Exam: SUBJECTIVE: Patient seen and examined Intubated, alert OBJECTIVE: Vital Signs Period Temp Pulse Resp BP Sys/Morgan Pulse Ox Last 24 Hr 97.4 F-98.2 F 58-150 18-24 93-148/4-74 95-98 GENERAL: The patient is awake, alert, intubated HEAD: Normal with no signs of trauma. EYES: PERRLA ENT: moist mucous membranes. NECK: Trachea midline LUNGS: Breath sounds equal, no wheezes, no crackles, no accessory muscle use. HEART: Regular rate and rhythm, S1, S2 without murmur, rub or gallop. ABDOMEN: Soft, nontender, nondistended, normoactive bowel sounds, no guarding, no rebound, no hepatosplenomegaly, no masses. EXTREMITIES: 2+ pulses, warm, well-perfused, no edema. NEUROLOGICAL: intubated but alert SKIN: Warm, dry, normal turgor, no rashes or lesions noted Laboratory Results - last 24 hr 04/27/18 04/28/18 04/28/18 18:50 05:30 05:30 WBC 8.9 RBC 3.16 L Hgb 9.7 L Hct 29.1 L MCV 92.3 MCH 30.8 MCHC 33.4 RDW 15.8 Plt Count 78 L D MPV 9.0 Absolute Neuts (auto) 8.5 H Neutrophils % 95.6 H Lymphocytes % 1.3 L D Monocytes % 2.9 L Eosinophils % 0.0 Basophils % 0.2 Nucleated RBC % 0 Anticoagulation Therapy Puncture Site ABG pH ABG pCO2 at Pt Temp ABG pO2 at Pt Temp ABG HCO3 ABG O2 Sat (Measured) ABG O2 Content ABG Base Excess Pardeep Test O2 Delivery Device Oxygen Flow Rate Vent Mode Vent Rate Mechanical Rate PEEP Pressure Support Vent Sodium 142 Potassium 3.9 Chloride 105 Carbon Dioxide 31 Anion Gap 6 L BUN 21 H Creatinine 0.3 L Creat Clearance w eGFR > 60 Random Glucose 119 H Calcium 7.5 L Phosphorus 1.9 L Magnesium 2.5 H Total Bilirubin 0.5 AST 15 ALT 31 Alkaline Phosphatase 68 Total Protein 5.2 L Albumin 2.1 L TSH 0.11 L D Free T4 0.70 L 04/28/18 06:37 WBC RBC Hgb Hct MCV MCH MCHC RDW Plt Count MPV Absolute Neuts (auto) Neutrophils % Lymphocytes % Monocytes % Eosinophils % Basophils % Nucleated RBC % Anticoagulation Therapy No Result Required. Puncture Site Right radial ABG pH 7.41 ABG pCO2 at Pt Temp 48.5 H ABG pO2 at Pt Temp 101.0 H ABG HCO3 29.7 H ABG O2 Sat (Measured) 97.8 ABG O2 Content 15.9 ABG Base Excess 4.7 H Pardeep Test Not applicable O2 Delivery Device Mech vent Oxygen Flow Rate 356 Vent Mode A/c Vent Rate 18 Mechanical Rate No Result Required. PEEP 5.0 Pressure Support Vent 450 Sodium Potassium Chloride Carbon Dioxide Anion Gap BUN Creatinine Creat Clearance w eGFR Random Glucose Calcium Phosphorus Magnesium Total Bilirubin AST ALT Alkaline Phosphatase Total Protein Albumin TSH Free T4 Active Medications Generic Name Dose Route Start Last Admin Trade Name Freq PRN Reason Stop Dose Admin Acetaminophen 650 mg 04/23/18 13:40 Tylenol - PO Q6H PRN FEVER Chlorhexidine Gluconate 1 applic 04/23/18 22:00 04/27/18 21:45 Hibiclens For Decolonization - TP Not Given HS TA Chlorhexidine Gluconate 15 ml 04/25/18 22:00 04/28/18 11:50 Peridex - MM 15 ml BID TA Administration Sodium Chloride 1,000 mls @ 75 mls/hr 04/24/18 05:30 04/28/18 10:55 Normal Saline - IV 75 mls/hr ASDIR TA Administration Famotidine/Sodium Chloride 20 mg in 50 mls @ 100 mls/hr 04/24/18 10:00 11:46 Pepcid 20 Mg Premixed Ivpb - IVPB 100 mls/hr BID TA Administration Diltiazem HCl 125 mg/ Sodium 125 mls @ 10 mls/hr 04/27/18 13:13 04/28/18 12: 54 Chloride IVPB 2.5 mg/hr TITR TA 2.5 mls/hr Titration Protocol 10 MG/HR Vancomycin HCl 1,000 mg in 250 mls @ 166.667 mls/hr 04/28/18 10:00 04/28/18 11:47 Vancomycin (Pre-Docked) IVPB 166.667 mls/hr BID TA Administration Protocol Potassium Phosphate 30 mm/ 260 mls @ 43.333 mls/hr 04/28/18 10:06 Dextrose IVPB 04/28/18 16:05 ONCE ONE Propofol 1,000,000 mcg in 100 mls @ 1.815 mls/hr 04/28/18 11:15 04/28/18 12: 58 Diprivan - IVPB 20 mcg/kg/min TITR TA 7.26 mls/hr Titration Protocol 5 MCG/KG/MIN Insulin Aspart 1 vial 04/24/18 11:00 04/28/18 07:03 Novolog Vial Sliding Scale - SQ Not Given ACHS TA Protocol Ipratropium [place] 1 amp 04/27/18 12:00 04/28/18 07:07 Atrovent 0.02% Nebulizer - NEB 1 amp RQID TA Administration Methylprednisolone Sodium Succinate 40 mg 04/26/18 18:00 04/28/18 10:56 Solu-Medrol - IVPUSH 40 mg Q8H-IV TA Administration Metoprolol Tartrate 5 mg 04/27/18 14:35 04/28/18 09:58 Lopressor Injection - IVPUSH 5 mg Q4H PRN Administration TACHYCARDIA Mupirocin 1 applic 04/23/18 22:00 04/27/18 21:44 Bactroban Ointment (For Decolonization) - NS 04/28/18 21:59 1 applic BID TA Administration ASSESSMENT/PLAN: Patient is a 67 yo M with history of COPD on home oxygen (3L), Interstitial lung disease, HTN, HLD, CHF, diastolic LV dysfunction, [place], CAD, GERD, hiatal hernia, recent dx of Afib with RVR on Eliquis (last dose 04/22 AM), presenting to the ER with a complaint of epistaxis, hypotension and tachycardia. Now admitted to ICU for septic shock. Pt was recently admitted for MRSA bacteremia ED Course notable for: - continued hypotension SBP 86-90 - HR 122 - Temp 100.2F rectal - 3L NS -> SBP 90-100s - CXR: focal mass at R apex unchanged from ID Septic Shock -likely 2/2 urosepsis - ID following case - monitor intake/ output maintain urine output of 1ml/kg/hr to 0.5ml/kg/hr - Keep MAP> 65 - femoral line removed - picc line removed - antibiotics as per ID, on meropenem, d/c daptomycin, started on vancomycin () - on hydrocortisone 50 q6h - blood and urine culture neg, sputum culture with gram negative bacilli - source of sepsis unclear - ct scan chest/abd/pelvis (04/25) : L upper air filled cabity in L upper chest , R upper fluid structure(possible abscess) - unchanged from 04/01, bilateral femoral head avascular necrosis, no prior CT abd/pelvis to compare. MRSA Bacteremia with suspicion of endocarditis, last admission - LUBNA completed (04/27) - LVEF 60-65%, moderate mitral valve prolapse, severe mitral regurgitation, mild tricuspid regurg, mild aortic regurg, mild aortic sclerosis, no vegetation - MRSA bacteremia-day #29 MRSA treatment plan total 42 days Heme Acute blood loss, normocytic anemia, likely 2/2 epistaxis - Tranfusion goal of Hb > 8 - Hold Eliquis - nasal packing removed (04/27) w/o complications - ENT following (Dr. Clarke) - keep head end elevated - s/p 2 U prbc hb 7.9--->10.9-->9.7--> 9.1--> 9.1 Thrombocytopenia, baseline around 130-140 and since 03/02/18 has been decreasing to 80s, likely 2/2 sepsis and antibiotics - platelets 65--> 62-->70--> 57-->63 - Heme consulted, following case, thyroid panel ordered Epistaxis from the L nares (resolved) - L nasal packing done in ED, ENT consulted ENT recommends nasal packing until Thursday - nasal packing removed (04/27) w/o complications - nasal saline spray bid, observe for bleeding Cardiac Diastolic LV dysfunc, CHF, phx [place], CAD, Afib w/ RVR - Last ECHO (03/31/18) - normal EF, L ventricular function normal, severe MR, moderate TR - Tele monitoring - Continue lipitor - Trop: neg - cardizem gtt, lopressor IVP - Cardiology, Dr. Ca following HTN - hypotensive 2/2 septic shock - will hold home medications, valsartan Afib - on Eliquis at home, will hold in setting of coagulopathy, resume in AM pending hemostasis - [id number] score of 3 - if recurrent arrythmia consider antiarrhythmics/amiodarone Pulm COPD, uses 3L home oxygen continue 3L of oxygen, patient intubated - CXR daily - Ipratroprium neb - CXR: RUL fluid collection (possible abscess), LINDSEY air collection unchanged from 04/01/18 - Per ID: plan for biopsy/drainage of RUL collection when extubated Ortho Bilateral femoral head avascular necrosis - Ortho following case, Dr. Baez - No orthopedic intervention 2/2 medical status F/E/N - NS @ 75ml/hr - Advance diet as tolerated - Electrolytes trend - Diabetic diet - sher cath PPX DVT: SCDs GI: pepcid BID Lines, Tubes: ET intubation, PIV Code Status: full code Dispo: Continue ICU monitoring. Visit type - Emergency Visit Emergency Visit: No - New Patient This patient is new to me today: No - Critical Care Critical Care patient: No
[2018-04-28] MEDS: MUPIROCIN 2% TOPICAL OINTMENT FOR DECOLONIZATION NS SCH (13:42)
[2018-04-28] MEDS ORDERED: DILTIAZEM INJECTION 125 MG in SODIUM CHLORIDE 100 ML IVPB SCH (13:58)
[2018-04-28 14:39] LABS: ANISOCYTOSIS 1+; MACROCYTOSIS 1+
[2018-04-28] MEDS ORDERED: PT OWN MED DRAWER 7, Y5N ONE (15:20)
--- NOTE | 2018-04-28 16:15 | PN ---
Progress Note, Physician History of Present Illness: Undergoing cpap/PS wean, back in SR off Cardizem gtt, LUBNA results reviewed with . - Current Medication List Current Medications: Active Medications Acetaminophen (Tylenol -) 650 mg PO Q6H PRN PRN Reason: FEVER Amino Acids (Prosource No Carb Liquid Pkt) 30 ml PO DAILY [facility] Chlorhexidine Gluconate (Hibiclens For Decolonization -) 1 applic TP HS [facility] Last Admin: 04/27/18 21:45 Dose: Not Given Chlorhexidine Gluconate (Peridex -) 15 ml MM BID TA Last Admin: 04/28/18 11:50 Dose: 15 ml Sodium Chloride (Normal Saline -) 1,000 mls @ 75 mls/hr IV ASDIR TA Last Admin: 04/28/18 10:55 Dose: 75 mls/hr Famotidine/Sodium Chloride (Pepcid 20 Mg Premixed Ivpb -) 20 mg in 50 mls @ 100 mls/hr IVPB BID TA Last Admin: 04/28/18 11:46 Dose: 100 mls/hr Vancomycin HCl (Vancomycin (Pre-Docked)) 1,000 mg in 250 mls @ 166.667 mls/hr IVPB BID [facility]; Protocol Last Admin: 04/28/18 11:47 Dose: 166.667 mls/hr Propofol (Diprivan -) 1,000,000 mcg in 100 mls @ 1.815 mls/hr IVPB TITR TA; Protocol Last Titration: 04/28/18 15:05 Dose: 10 mcg/kg/min, 3.63 mls/hr Insulin Aspart (Novolog Vial Sliding Scale -) 1 vial SQ ACHS TA; Protocol Last Admin: 04/28/18 13:41 Dose: 2 units Ipratropium [place] (Atrovent 0.02% Nebulizer -) 1 amp NEB RQID [facility] Last Admin: 04/28/18 11:50 Dose: 1 amp Methylprednisolone Sodium Succinate (Solu-Medrol -) 40 mg IVPUSH Q8H-IV TA Last Admin: 04/28/18 10:56 Dose: 40 mg Metoprolol Tartrate (Lopressor Injection -) 5 mg IVPUSH Q4H PRN PRN Reason: TACHYCARDIA Last Admin: 04/28/18 09:58 Dose: 5 mg Mupirocin (Bactroban Ointment (For Decolonization) -) 1 applic NS BID TA Stop: 04/28/18 21:59 Last Admin: 04/28/18 13:42 Dose: 1 applic - Objective Vital Signs: Vital Signs Temperature 97.7 F 04/28/18 06:00 Pulse Rate 50 L 04/28/18 14:15 Respiratory Rate 14 04/28/18 14:00 Blood Pressure 87/56 L 04/28/18 14:15 O2 Sat by Pulse Oximetry (%) 95 04/28/18 07:35 Constitutional: Yes: No Distress, Calm, Thin Neck: Yes: Supple Cardiovascular: Yes: Regular Rate and Rhythm, Bradycardia, Murmur (2/6 SM) Respiratory: Yes: Intubated, Mechanically Ventilated, Rhonchi Gastrointestinal: Yes: Normal Bowel Sounds, Soft Edema: No Labs: CBC, BMP 04/28/18 05:30 04/28/18 05:30 INR, PTT INR 1.14 (0.83-1.09) H 04/27/18 08:31 - ....Imaging EKG: Report Reviewed (PAF->SR) Problem List - Problems (1) Hypotension Code(s): I95.9 - HYPOTENSION, UNSPECIFIED Qualifiers: Hypotension type: other hypotension type Qualified Code(s): I95.89 - Other hypotension (2) Nasal hemorrhage Code(s): R04.0 - EPISTAXIS (3) Acute and chronic respiratory failure with hypercapnia Code(s): J96.22 - ACUTE AND CHRONIC RESPIRATORY FAILURE WITH HYPERCAPNIA (4) Anemia Code(s): D64.9 - ANEMIA, UNSPECIFIED Qualifiers: Anemia type: unspecified type Qualified Code(s): D64.9 - Anemia, unspecified (5) COPD (chronic obstructive pulmonary disease) Code(s): J44.9 - CHRONIC OBSTRUCTIVE PULMONARY DISEASE, UNSPECIFIED Qualifiers: COPD type: unspecified COPD Qualified Code(s): J44.9 - Chronic obstructive pulmonary disease, unspecified (6) Diastolic dysfunction Code(s): I51.9 - HEART DISEASE, UNSPECIFIED (7) Epistaxis, recurrent Code(s): R04.0 - EPISTAXIS (8) Hyperlipidemia Code(s): E78.5 - HYPERLIPIDEMIA, UNSPECIFIED Qualifiers: Hyperlipidemia type: pure hypercholesterolemia Qualified Code(s): E78.00 - Pure hypercholesterolemia, unspecified; E78.0 - Pure hypercholesterolemia (9) Hyperthyroidism Code(s): E05.90 - THYROTOXICOSIS, UNSP WITHOUT THYROTOXIC CRISIS OR STORM (10) Paroxysmal A-fib Code(s): I48.0 - PAROXYSMAL ATRIAL FIBRILLATION Assessment/Plan 04/27/2018 Preliminary result shows moderate to severe MR with posteriorly directed eccentric jet due to anterior mitral valve prolapse, mild TR and normal LV systolic function. There were no vegetations. Small pericardial effusion may be seen 1. Acute on Chronic Hypoxic and Hypercapneic Respiratory Failure referable to 2. Acute on chronic class II-III NYHA classification LV failure related to diastolic LV dysfunction referable to underlying posterior directed mod-severe MR due to anterior MV prolapse 3. 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 Sepsis syndrome, history of MRSA bacteremia of unclear source, with splenic infarct 5. Advanced chronic obstructive pulmonary disease on home oxygen therapy with Pulmonary HTN 6. Epistaxis, prior history requiring intervention, nasal packing in situ 7. Anemia related to above and in addition thrombocytopenia etiology to be determined 8. Paroxysmal atrial fibrillation with [id number] score of 2 on A/C with DOAC's/ Eliquis (A/C withheld), recurrent arrhythmia resolved 9. HTN 10. 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 UTI PLAN: 1. Resume Cardizem 30 tid, hemodynamics permitting 2. Continue to withhold Diovan and may resume in AM provided hemodynamics permit 3. Resume A/C with Eliquis with caution considering the above noted anemia and thrombocytopenia, provided hemostasis is achieved unless it is absolutely contraindicated 4. Consider hematology evaluation for the above noted thrombocytopenia 5. As outlined in prior notes if recurrent arrhythmia may consider antiarrhythmics/Amiodarone 6. Resume Lipitor 10 qhs 7. Monitor Hg and transfuse as needed to maintain Hg equal or > 8.0 8. Antibiotics course as per ID service/primary team
[2018-04-28] MEDS: AMINO ACIDS/PROTEIN HYDROLYS 30 ML LIQUID.PKT PO SCH (17:47)
[2018-04-28] MEDS: CHLORHEXIDINE GLUCONATE 4% CLEANSER FOR DECOLONIZATION TP SCH (21:32)
[2018-04-28] MEDS: dilTIAZem HCL 30 MG TABLET (FP) PO SCH (21:32)
[2018-04-29] MEDS: methylPREDNISolone NA SUCC 40 MG/1 ML VIAL IVPUSH SCH ×3 (01:03→17:42)
[2018-04-29 06:02] LABS: ARTERIAL BLD GAS O2 SATURATION 98.8 % (90-98.9); ARTERIAL BLOOD GAS BASE EXCESS 6.9 meq/l (-2-2)
[2018-04-29 06:03] LABS: ALLENS TEST POSITIVE; ARTERIAL BLOOD GAS PCO2 53.6 mmHg (35-45)
[2018-04-29 06:09] LABS: BASO % 0.2 % (0-2.0); HEMATOCRIT 29.2 % (35.4-49); HEMOGLOBIN 9.4 GM/dL (11.7-16.9); LYMPH % 1.6 % (8-40); MCH 30.1 pg (25.7-33.7); MCHC 32.3 g/dl (32.0-35.9); MEAN CELL VOLUME 93.3 fl (80-96); MEAN PLT VOLUME 9.5 fl (7.5-11.1); MONO % 2.9 % (3.8-10.2); NEUT % 95.3 % (42.8-82.8); PLATELET COUNT 81 K/MM3 (134-434); RBC 3.13 M/mm3 (4.00-5.60); RDW 16.5 % (11.9-15.9); WHITE BLOOD COUNT 7.4 K/mm3 (4.0-10.0)
[2018-04-29 06:39] LABS: ALK PHOS 67 U/L (45-117); ANION GAP 3 MMOL/L (8-16); BILIRUBIN,TOTAL 0.4 mg/dL (0.2-1); BLOOD UREA NITROGEN 25 mg/dL (7-18); CALCIUM 7.7 mg/dL (8.5-10.1); CHLORIDE 105 mmol/L (98-107); CO2 34 mmol/L (21-32); CREATININE 0.2 mg/dL (0.55-1.3); GLUCOSE,RANDOM 204 mg/dL (74-106); MAGNESIUM 2.5 mg/dL (1.8-2.4); PHOSPHOROUS 2.6 mg/dL (2.5-4.9); POTASSIUM 4.1 mmol/L (3.5-5.1); SGOT/AST 11 U/L (15-37); SGPT/ALT 27 U/L (13-61); SODIUM 142 mmol/L (136-145); TOT PROT 4.8 g/dl (6.4-8.2)
[2018-04-29] MEDS: SODIUM CHLORIDE 1,000 ML IV SCH (06:41)
[2018-04-29] MEDS: dilTIAZem HCL 30 MG TABLET (FP) PO SCH ×3 (06:41→21:06)
[2018-04-29] MEDS: INSULIN SLIDING SCALE (NOVOLOG) 1 VIAL SQ SCH ×4 (06:41→21:07)
[2018-04-29] MEDS: IPRATROPIUM BR 0.02% 0.5 MG/2.5 ML VIAL.NEB. NEB SCH ×4 (08:20→20:49)
[2018-04-29] MEDS ORDERED: SODIUM CHLORIDE NASAL SPRAY 44 ML BOTTLE NS PRN (09:00)
[2018-04-29] MEDS: CHLORHEXIDINE GLUCONATE 0.12% 15ML CUP MM SCH ×2 (09:55→21:11)
[2018-04-29] MEDS: AMINO ACIDS/PROTEIN HYDROLYS 30 ML LIQUID.PKT PO SCH (09:55)
[2018-04-29] MEDS: VANCOMYCIN 1 GRAM (PRE-DOCKED) 1,000 MG/250 ML BAG IVPB SCH ×2 (09:56→21:11)
[2018-04-29] MEDS: FAMOTIDINE 20 MG/50 ML IVPB 20 MG/50 ML MG IVPB SCH ×2 (11:04→21:11)
[2018-04-29] MEDS: METOPROLOL TARTRATE 5 MG/5 ML VIAL IVPUSH PRN ×2 (11:50→12:11)
[2018-04-29] MEDS ORDERED: dilTIAZem HCL 50 MG/10 ML - 10 ML VIAL IVPUSH ONE ×3 (11:52→12:36)
--- NOTE | 2018-04-29 12:00 | PN ---
Progress Note, Physician History of Present Illness: Extubated on bipap and back in rapid afib, LUBNA results reviewed with . - Current Medication List Current Medications: Active Medications Acetaminophen (Tylenol -) 650 mg PO Q6H PRN PRN Reason: FEVER Amino Acids (Prosource No Carb Liquid Pkt) 30 ml PO DAILY [facility] Last Admin: 04/29/18 09:55 Dose: 30 ml Chlorhexidine Gluconate (Hibiclens For Decolonization -) 1 applic TP HS [facility] Last Admin: 04/28/18 21:32 Dose: Not Given Chlorhexidine Gluconate (Peridex -) 15 ml MM BID [facility] Last Admin: 04/29/18 09:55 Dose: 15 ml Diltiazem HCl (Cardizem -) 30 mg PO TID [facility] Last Admin: 04/29/18 06:41 Dose: 30 mg Famotidine/Sodium Chloride (Pepcid 20 Mg Premixed Ivpb -) 20 mg in 50 mls @ 100 mls/hr IVPB BID [facility] Last Admin: 04/29/18 11:04 Dose: 100 mls/hr Vancomycin HCl (Vancomycin (Pre-Docked)) 1,000 mg in 250 mls @ 166.667 mls/hr IVPB BID [facility]; Protocol Last Admin: 04/29/18 09:56 Dose: 166.667 mls/hr Insulin Aspart (Novolog Vial Sliding Scale -) 1 vial SQ ACHS [facility]; Protocol Last Admin: 04/29/18 11:26 Dose: 4 units Ipratropium [place] (Atrovent 0.02% Nebulizer -) 1 amp NEB RQID [facility] Last Admin: 04/29/18 08:20 Dose: 1 amp Methylprednisolone Sodium Succinate (Solu-Medrol -) 40 mg IVPUSH Q8H-IV [facility] Last Admin: 04/29/18 09:55 Dose: 40 mg Metoprolol Tartrate (Lopressor Injection -) 5 mg IVPUSH Q4H PRN PRN Reason: TACHYCARDIA Last Admin: 04/29/18 11:50 Dose: 5 mg Sodium Chloride ([place] Nasal [place] -) 2 spray NS BID PRN PRN Reason: NASAL CONGESTION - Objective Vital Signs: Vital Signs Temperature 97.8 F 04/29/18 08:00 Pulse Rate 178 H 04/29/18 11:50 Respiratory Rate 11 04/29/18 10:45 Blood Pressure 176/90 H 11/29/18 11:50 O2 Sat by Pulse Oximetry (%) 100 04/28/18 22:00 Constitutional: Yes: No Distress, Calm, Thin Neck: Yes: Supple Cardiovascular: Yes: Tachycardia, Pulse Irregular Respiratory: Yes: On BiPap, Rhonchi Gastrointestinal: Yes: Soft, Hypoactive Bowel Sounds Edema: No Labs: CBC, BMP 04/29/18 05:30 04/29/18 05:30 INR, PTT INR 1.14 (0.83-1.09) H 04/27/18 08:31 - ....Imaging Chest X-ray: Report Reviewed (Improved) EKG: Report Reviewed (Tele: Rapid afib) Problem List - Problems (1) Hypotension Code(s): I95.9 - HYPOTENSION, UNSPECIFIED Qualifiers: Hypotension type: other hypotension type Qualified Code(s): I95.89 - Other hypotension (2) Acute and chronic respiratory failure with hypercapnia Code(s): J96.22 - ACUTE AND CHRONIC RESPIRATORY FAILURE WITH HYPERCAPNIA (3) Anemia Code(s): D64.9 - ANEMIA, UNSPECIFIED Qualifiers: Anemia type: unspecified type Qualified Code(s): D64.9 - Anemia, unspecified (4) COPD (chronic obstructive pulmonary disease) Code(s): J44.9 - CHRONIC OBSTRUCTIVE PULMONARY DISEASE, UNSPECIFIED Qualifiers: COPD type: unspecified COPD Qualified Code(s): J44.9 - Chronic obstructive pulmonary disease, unspecified (5) Diastolic dysfunction Code(s): I51.9 - HEART DISEASE, UNSPECIFIED (6) Epistaxis, recurrent Code(s): R04.0 - EPISTAXIS (7) Hyperlipidemia Code(s): E78.5 - HYPERLIPIDEMIA, UNSPECIFIED Qualifiers: Hyperlipidemia type: pure hypercholesterolemia Qualified Code(s): E78.00 - Pure hypercholesterolemia, unspecified; E78.0 - Pure hypercholesterolemia (8) Hyperthyroidism Code(s): E05.90 - THYROTOXICOSIS, UNSP WITHOUT THYROTOXIC CRISIS OR STORM (9) Paroxysmal A-fib Code(s): I48.0 - PAROXYSMAL ATRIAL FIBRILLATION (10) Mitral valve anterior leaflet prolapse Code(s): I34.1 - NONRHEUMATIC MITRAL (VALVE) PROLAPSE (11) Moderate to severe mitral regurgitation Code(s): I34.0 - NONRHEUMATIC MITRAL (VALVE) INSUFFICIENCY Assessment/Plan 04/27/2018 Preliminary result shows moderate to severe MR with posteriorly directed eccentric jet due to anterior mitral valve prolapse, mild TR and normal LV systolic function. There were no vegetations. Small pericardial effusion may be seen 1. Acute on Chronic Hypoxic and Hypercapneic Respiratory Failure referable to 2. Acute on chronic class II-III NYHA classification LV failure related to diastolic LV dysfunction referable to underlying posterior directed mod-severe MR due to anterior MV prolapse 3. 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 Sepsis syndrome, history of MRSA bacteremia of unclear source, with splenic infarct 5. Advanced chronic obstructive pulmonary disease on home oxygen therapy with Pulmonary HTN 6. Epistaxis, prior history requiring intervention, nasal packing in situ 7. Anemia related to above and in addition thrombocytopenia etiology to be determined 8. Paroxysmal atrial fibrillation with [id number] score of 2 on A/C with DOAC's/ Eliquis (A/C withheld) 9. HTN 10. 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 UTI PLAN: 1. Continue Cardizem 30 tid and IV Lopressor prn for rate-control, hemodynamics permitting 2. Continue to withhold Diovan and may resume in AM provided hemodynamics permit 3. Resume A/C with Eliquis with caution considering the above noted anemia and thrombocytopenia, provided hemostasis is achieved unless it is absolutely contraindicated 4. As outlined in prior notes if recurrent arrhythmia may consider antiarrhythmics/Amiodarone 5. Resume Lipitor 10 qhs 6. Monitor Hg and transfuse as needed to maintain Hg equal or > 8.0 7. Antibiotics course as per ID service/primary team 8. Wean FIO2 as tolerated
--- NOTE | 2018-04-29 12:01 | PN ---
Progress Note, Physician Chief Complaint: PATIENT JUST EXTUBATED ON BIPAP FAMILY BEDSIDE PATIENT IN RESPIRATORY DISTRESS - Current Medication List Current Medications: Active Medications Acetaminophen (Tylenol -) 650 mg PO Q6H PRN PRN Reason: FEVER Amino Acids (Prosource No Carb Liquid Pkt) 30 ml PO DAILY [facility] Last Admin: 04/29/18 09:55 Dose: 30 ml Chlorhexidine Gluconate (Hibiclens For Decolonization -) 1 applic TP HS [facility] Last Admin: 04/28/18 21:32 Dose: Not Given Chlorhexidine Gluconate (Peridex -) 15 ml MM BID [facility] Last Admin: 04/29/18 09:55 Dose: 15 ml Diltiazem HCl (Cardizem -) 30 mg PO TID [facility] Last Admin: 04/29/18 06:41 Dose: 30 mg Famotidine/Sodium Chloride (Pepcid 20 Mg Premixed Ivpb -) 20 mg in 50 mls @ 100 mls/hr IVPB BID [facility] Last Admin: 04/29/18 11:04 Dose: 100 mls/hr Vancomycin HCl (Vancomycin (Pre-Docked)) 1,000 mg in 250 mls @ 166.667 mls/hr IVPB BID [facility]; Protocol Last Admin: 04/29/18 09:56 Dose: 166.667 mls/hr Insulin Aspart (Novolog Vial Sliding Scale -) 1 vial SQ ACHS [facility]; Protocol Last Admin: 04/29/18 11:26 Dose: 4 units Ipratropium [place] (Atrovent 0.02% Nebulizer -) 1 amp NEB RQID [facility] Last Admin: 04/29/18 08:20 Dose: 1 amp Methylprednisolone Sodium Succinate (Solu-Medrol -) 40 mg IVPUSH Q8H-IV [facility] Last Admin: 04/29/18 09:55 Dose: 40 mg Metoprolol Tartrate (Lopressor Injection -) 5 mg IVPUSH Q4H PRN PRN Reason: TACHYCARDIA Last Admin: 04/29/18 11:50 Dose: 5 mg Sodium Chloride ([place] Nasal [place] -) 2 spray NS BID PRN PRN Reason: NASAL CONGESTION - Objective Vital Signs: Vital Signs Temperature 97.8 F 04/29/18 08:00 Pulse Rate 178 H 04/29/18 11:50 Respiratory Rate 11 04/29/18 10:45 Blood Pressure 176/90 H 04/29/18 11:50 O2 Sat by Pulse Oximetry (%) 100 04/28/18 22:00 Constitutional: Yes: Severe Distress Eyes: Yes: Other Cardiovascular: Yes: Tachycardia Respiratory: Yes: On BiPap, Orthopnea, Poor Air Entry, SOB Gastrointestinal: Yes: Soft Genitourinary: Yes: Incontinence Musculoskeletal: Yes: Muscle Weakness Edema: No Neurological: Yes: WNL Psychiatric: Yes: WNL Labs: CBC, BMP 04/29/18 05:30 04/29/18 05:30 INR, PTT INR 1.14 (0.83-1.09) H 04/27/18 08:31 Problem List - Problems (1) Afib Code(s): I48.91 - UNSPECIFIED ATRIAL FIBRILLATION (2) Fever Code(s): R50.9 - FEVER, UNSPECIFIED (3) Hypotension Code(s): I95.9 - HYPOTENSION, UNSPECIFIED Qualifiers: Hypotension type: other hypotension type Qualified Code(s): I95.89 - Other hypotension (4) MRSA bacteremia Code(s): R78.81 - BACTEREMIA (5) Tachycardia Code(s): R00.0 - TACHYCARDIA, UNSPECIFIED (6) Acute and chronic respiratory failure Code(s): J96.20 - ACUTE AND CHR RESP FAILURE, UNSP W HYPOXIA OR HYPERCAPNIA Qualifiers: Respiratory failure complication: hypoxia and hypercapnia Qualified Code(s) : J96.21 - Acute and chronic respiratory failure with hypoxia; J96.22 - Acute and chronic respiratory failure with hypercapnia (7) Anxiety disorder due to general medical condition Code(s): F06.4 - ANXIETY DISORDER DUE TO KNOWN PHYSIOLOGICAL CONDITION Assessment/Plan MAY NEED TO BE RE-INTUBATED NPO MONITOR LABS CAUTIOUS MONITORING D/W ICU TEAM PPI IVF GENTLY 02 SUPPORT WITH BIPAP CHECK ABG
--- NOTE | 2018-04-29 12:05 | PN ---
Physical Exam: SUBJECTIVE: Patient seen and examined propofol gtt at 10mg/hr intubated and alert communicating with hands OBJECTIVE: Vital Signs Period Temp Pulse Resp BP Sys/Morgan Pulse Ox Last 24 Hr 97.2 F-97.8 F 50-178 11-20 87-176/54-90 100-100 GENERAL: The patient is awake, alert and intubated HEAD: Normal with no signs of trauma. EYES: PERRLA ENT: moist mucous membranes. NECK: Trachea midline LUNGS: slightly coarse breath sounds in upper lobes bilaterally, no wheezes, no crackles, no accessory muscle use. HEART: Regular rate and rhythm, S1, S2 without murmur, rub or gallop. ABDOMEN: Soft, nontender, nondistended, normoactive bowel sounds, no guarding, no rebound, no hepatosplenomegaly, no masses. EXTREMITIES: 2+ pulses, warm, well-perfused, no edema. NEUROLOGICAL: intubated and alert SKIN: Warm, dry, normal turgor, no rashes or lesions noted Laboratory Results - last 24 hr 04/28/18 04/29/18 04/29/18 05:30 05:30 05:30 WBC 7.4 RBC 3.13 L Hgb 9.4 L Hct 29.2 L MCV 93.3 MCH 30.1 MCHC 32.3 RDW 16.5 H Plt Count 81 L MPV 9.5 Absolute Neuts (auto) 7.0 Total Counted 100 Neutrophils % 95.3 H Neutrophils % (Manual) 97.0 H 89.0 H Band Neutrophils % 0.0 5.0 Lymphocytes % 1.6 L D Lymphocytes % (Manual) 1.0 L D 5.0 L Monocytes % 2.9 L Monocytes % (Manual) 2 L 1 L Eosinophils % 0.0 Eosinophils % (Manual) 0.0 Basophils % 0.2 Basophils % (Manual) 0.0 Myelocytes % (Man) 0 Promyelocytes % (Man) 0 Blast Cells % (Manual) 0 Nucleated RBC % 0 Metamyelocytes 0 Platelet Comment Rare giant plts Anisocytosis 1+ Macrocytosis 1+ Puncture Site ABG pH ABG pCO2 at Pt Temp ABG pO2 at Pt Temp ABG HCO3 ABG O2 Sat (Measured) ABG O2 Content ABG Base Excess Pardeep Test O2 Delivery Device Oxygen Flow Rate Vent Mode Vent Rate Mechanical Rate PEEP Pressure Support Vent Sodium 142 Potassium 4.1 Chloride 105 Carbon Dioxide 34 H Anion Gap 3 L BUN 25 H Creatinine 0.2 L Creat Clearance w eGFR > 60 Random Glucose 204 H Calcium 7.7 L Phosphorus 2.6 Magnesium 2.5 H Total Bilirubin 0.4 AST 11 L ALT 27 Alkaline Phosphatase 67 Total Protein 4.8 L Albumin 2.0 L 04/29/18 06:00 WBC RBC Hgb Hct MCV MCH MCHC RDW Plt Count MPV Absolute Neuts (auto) Total Counted Neutrophils % Neutrophils % (Manual) Band Neutrophils % Lymphocytes % Lymphocytes % (Manual) Monocytes % Monocytes % (Manual) Eosinophils % Eosinophils % (Manual) Basophils % Basophils % (Manual) Myelocytes % (Man) Promyelocytes % (Man) Blast Cells % (Manual) Nucleated RBC % Metamyelocytes Platelet Comment Anisocytosis Macrocytosis Puncture Site Left radial ABG pH 7.40 ABG pCO2 at Pt Temp 53.6 H ABG pO2 at Pt Temp 134.0 H D ABG HCO3 32.4 H ABG O2 Sat (Measured) 98.8 ABG O2 Content 13.9 L ABG Base Excess 6.9 H Pardeep Test Positive O2 Delivery Device Mech vent Oxygen Flow Rate 40% Vent Mode A/c Vent Rate 14 Mechanical Rate Yes PEEP 5.0 Pressure Support Vent 450 Sodium Potassium Chloride Carbon Dioxide Anion Gap BUN Creatinine Creat Clearance w eGFR Random Glucose Calcium Phosphorus Magnesium Total Bilirubin AST ALT Alkaline Phosphatase Total Protein Albumin Active Medications Generic Name Dose Route Start Last Admin Trade Name Freq PRN Reason Stop Dose Admin Acetaminophen 650 mg 04/23/18 13:40 Tylenol - PO Q6H PRN FEVER Amino Acids 30 ml 04/28/18 15:00 04/29/18 09:55 Prosource No Carb Liquid Pkt PO 30 ml DAILY TA Administration Chlorhexidine Gluconate 1 applic 04/23/18 22:00 04/28/18 21:32 Hibiclens For Decolonization - TP Not Given HS TA Chlorhexidine Gluconate 15 ml 04/25/18 22:00 04/29/18 09:55 Peridex - MM 15 ml BID TA Administration Diltiazem HCl 30 mg 04/28/18 22:00 04/29/18 06:41 Cardizem - PO 30 mg TID TA Administration Heparin Sodium (Porcine) 5,000 unit 04/29/18 22:00 Heparin - SQ BID TA Famotidine/Sodium Chloride 20 mg in 50 mls @ 100 mls/hr 04/24/18 10:00 11:04 Pepcid 20 Mg Premixed Ivpb - IVPB 100 mls/hr BID TA Administration Vancomycin HCl 1,000 mg in 250 mls @ 166.667 mls/hr 04/28/18 10:00 04/29/18 09:56 Vancomycin (Pre-Docked) IVPB 166.667 mls/hr BID TA Administration Protocol Insulin Aspart 1 vial 04/24/18 11:00 04/29/18 11:26 Novolog Vial Sliding Scale - SQ 4 units ACHS TA Administration Protocol Ipratropium [place] 1 amp 04/27/18 12:00 04/29/18 08:20 Atrovent 0.02% Nebulizer - NEB 1 amp RQID TA Administration Methylprednisolone Sodium Succinate 40 mg 04/26/18 18:00 04/29/18 09:55 Solu-Medrol - IVPUSH 40 mg Q8H-IV TA Administration Metoprolol Tartrate 5 mg 04/27/18 14:35 04/29/18 11:50 Lopressor Injection - IVPUSH 5 mg Q4H PRN Administration TACHYCARDIA Sodium Chloride 2 spray 04/29/18 09:00 [place] Nasal [place] - NS BID PRN NASAL CONGESTION ASSESSMENT/PLAN: Patient is a 67 yo M with history of COPD on home oxygen (3L), Interstitial lung disease, HTN, HLD, CHF, diastolic LV dysfunction, [place], CAD, GERD, hiatal hernia, recent dx of Afib with RVR on Eliquis (last dose 04/22 AM), presenting to the ER with a complaint of epistaxis, hypotension and tachycardia. Now admitted to ICU for septic shock. Pt was recently admitted for MRSA bacteremia ID Septic Shock -likely 2/2 urosepsis - ID following case - monitor intake/ output maintain urine output of 1ml/kg/hr to 0.5ml/kg/hr - Keep MAP> 65 - femoral line removed, picc line removed - on hydrocortisone 50 q6h - blood and urine culture neg, sputum culture with gram negative bacilli - source of sepsis likely urine as UA: +leuk esterase, + wbc - ct scan chest/abd/pelvis (04/25) : L upper air filled cavity in L upper chest , R upper fluid structure(possible abscess) - unchanged from 04/01, bilateral femoral head avascular necrosis, no prior CT abd/pelvis to compare. MRSA Bacteremia with suspicion of endocarditis, last admission - LUBNA completed (04/27) - LVEF 60-65%, moderate mitral valve prolapse, severe mitral regurgitation, mild tricuspid regurg, mild aortic regurg, mild aortic sclerosis, no vegetation - MRSA bacteremia-day #29 MRSA treatment plan total 42 days - antibiotics as per ID: vancomycin started (04/27) Heme Acute blood loss, normocytic anemia, likely 2/2 epistaxis, required 2pRBC - Tranfusion goal of Hb > 8 - Hold Eliquis - nasal packing removed (04/27) w/o complications - ENT following (Dr. Clarke) - keep head end elevated Thrombocytopenia, baseline around 130-140 and since 03/02/18 has been decreasing to 80s, likely 2/2 sepsis and antibiotics - platelets 65--> 62-->70--> 57-->63 --> 78--> 81 - Heme consulted, following case, thrombocytopenia thought to be 2/2 MRSA bacteremia Epistaxis from the L nares (resolved) - L nasal packing done in ED, ENT consulted ENT recommends nasal packing until Thursday - nasal packing removed (04/27) w/o complications - nasal saline spray bid, observe for bleeding Cardiac Diastolic LV dysfunc, CHF, phx [place], CAD, Afib w/ RVR - Last ECHO (03/31/18) - normal EF, L ventricular function normal, severe MR, moderate TR - Tele monitoring - Continue lipitor - Trop: neg - cardizem gtt, lopressor IVP, cardizem 30mg TID - Cardiology following HTN - hypotensive 2/2 septic shock - will hold home medications, valsartan Afib - on Eliquis at home, will hold in setting of coagulopathy, resume in AM pending hemostasis - [id number] score of 3 - if recurrent arrythmia consider antiarrhythmics/amiodarone Pulm COPD, uses 3L home oxygen continue 3L of oxygen, patient intubated - CXR daily - Ipratroprium neb - CXR: RUL fluid collection (possible abscess), LINSDEY air collection unchanged from 04/01/18 - Per ID: plan for biopsy/drainage of RUL collection when extubated - will extubate this AM Ortho Bilateral femoral head avascular necrosis - Ortho following case, Dr. Baez - No orthopedic intervention 2/2 medical status F/E/N - NS @ 75ml/hr - Advance diet as tolerated - Electrolytes trend - Diabetic diet - sher cath PPX DVT: heparin SQ GI: pepcid BID Lines, Tubes: sher, PIV Code Status: full code Dispo: Continue ICU monitoring. Visit type - Emergency Visit Emergency Visit: No - New Patient This patient is new to me today: No - Critical Care Critical Care patient: Yes Total Critical Care Time (in minutes): 40 Critical Care Statement: The care of this patient involved high complexity decision making to prevent further life threatening deterioration of the patient 's condition and/or to evaluate & treat vital organ system(s) failure or risk of failure.
[2018-04-29] MEDS ORDERED: dilTIAZem HCL 50 MG/10 ML - 10 ML VIAL ONE (12:20)
[2018-04-29] MEDS ORDERED: dilTIAZem HCL 125 MG/25 ML - 25 ML VIAL ONE (12:42)
--- NOTE | 2018-04-29 12:42 | PN ---
Teaching Attending Note Name of Resident: Candida Parnell ATTENDING PHYSICIAN STATEMENT I saw and evaluated the patient. I reviewed the resident's note and discussed the case with the resident. I agree with the resident's findings and plan as documented. SUBJECTIVE: Pt seen and examined in the ICU. Tolerated CPAP/PS this AM and subsequently extubated. Became short of breath and back into rapid afib, placed on BiPAP. OBJECTIVE: Vital Signs Period Temp Pulse Resp BP Sys/Morgan Pulse Ox Last 24 Hr 97.2 F-98.2 F 50-178 11-20 87-176/54-90 100-100 Intake & Output 04/26/18 04/27/18 04/28/18 04/29/18 23:59 23:59 23:59 23:59 Intake Total 1715 2429 2472.5 1848 Output Total 1130 1000 550 200 Balance 585 1429 1922.5 1648 Weight 60.6 kg 60.5 kg 62.6 kg Gen: tachypneic on BiPAP Heart: tachycardic, irregular Lung: scattered rhonchi Abd: soft, nontender Ext: no edema CBC, BMP 04/29/18 05:30 04/29/18 05:30 Active Medications Acetaminophen (Tylenol -) 650 mg PO Q6H PRN PRN Reason: FEVER Amino Acids (Prosource No Carb Liquid Pkt) 30 ml PO DAILY [facility] Last Admin: 04/29/18 09:55 Dose: 30 ml Chlorhexidine Gluconate (Hibiclens For Decolonization -) 1 applic TP HS [facility] Last Admin: 04/28/18 21:32 Dose: Not Given Chlorhexidine Gluconate (Peridex -) 15 ml MM BID [facility] Last Admin: 04/29/18 09:55 Dose: 15 ml Diltiazem HCl (Cardizem -) 30 mg PO TID [facility] Last Admin: 04/29/18 06:41 Dose: 30 mg Diltiazem HCl (Cardizem Injection -) 10 mg IVPUSH ONCE ONE Stop: 04/29/18 12:37 Heparin Sodium (Porcine) (Heparin -) 5,000 unit SQ BID [facility] Famotidine/Sodium Chloride (Pepcid 20 Mg Premixed Ivpb -) 20 mg in 50 mls @ 100 mls/hr IVPB BID [facility] Last Admin: 04/29/18 11:04 Dose: 100 mls/hr Vancomycin HCl (Vancomycin (Pre-Docked)) 1,000 mg in 250 mls @ 166.667 mls/hr IVPB BID [facility]; Protocol Last Admin: 04/29/18 09:56 Dose: 166.667 mls/hr Diltiazem HCl 125 mg/ Sodium (Chloride) 125 mls @ 5 mls/hr IVPB TITR TA; Protocol Insulin Aspart (Novolog Vial Sliding Scale -) 1 vial SQ ACHS [facility]; Protocol Last Admin: 04/29/18 11:26 Dose: 4 units Ipratropium [place] (Atrovent 0.02% Nebulizer -) 1 amp NEB RQID [facility] Last Admin: 04/29/18 11:45 Dose: 1 amp Methylprednisolone Sodium Succinate (Solu-Medrol -) 40 mg IVPUSH Q8H-IV [facility] Last Admin: 04/29/18 09:55 Dose: 40 mg Metoprolol Tartrate (Lopressor Injection -) 5 mg IVPUSH Q4H PRN PRN Reason: TACHYCARDIA Last Admin: 04/29/18 12:11 Dose: 5 mg Sodium Chloride ([place] Nasal [place] -) 2 spray NS BID PRN PRN Reason: NASAL CONGESTION ASSESSMENT AND PLAN: Acute on Chronic Hypoxic and Hypercapneic Respiratory Failure UTI Septic Shock Lactic Acidosis Epistaxis Acute on Chronic Diastolic Heart Failure Severe Mitral Regurgitation Thrombocytopenia CAD COPD Pulmonary HTN Paroxysmal Atrial Fibrillation HTN Hypercholesterolemia - continue antibiotics - off pressors, maintain MAP >65 - monitor urine output, creatinine - monitor CBC - resume anticoagulation - rate control with cardizem gtt, lopressor IVP - continue medrol - inhaled bronchodilators - O2 to keep SpO2 >90% - DVT/GI prophylaxis - continue ICU monitoring for tenuous respiratory status - may need re-intubation critical care time spent in reviewing chart, evaluating patient and formulating plan 35 min
--- NOTE | 2018-04-29 12:42 | PN ---
Progress Note (short form) - Note Progress Note: @1240 Patient extubated, on bipap, went into afib RVR lopressor total of 10mg given, HR of 150s still in Afib Cardizem 30mg total admin. Cardizem gtt at 5mg/hr started. Will continue monitoring, may require re-intubation Patient with abd accessory muscle use, intermittent desaturation to low 80s. However patient with baseline accessory muscle 2/2 COPD, will continue monitoring.
[2018-04-29] MEDS: DILTIAZEM INJECTION 125 MG in SODIUM CHLORIDE 100 ML IVPB SCH (13:08)
[2018-04-29 13:24] LABS: ARTERIAL BLD GAS O2 SATURATION 95.3 % (90-98.9); ARTERIAL BLOOD GAS BASE EXCESS 5.2 meq/l (-2-2); ARTERIAL BLOOD GAS PO2 88.8 mmHg (80-100); ARTERIAL BLOOD GAS pH 7.29 (7.35-7.45)
[2018-04-29 13:32] LABS: ALLENS TEST POSITIVE
[2018-04-29 13:34] LABS: ARTERIAL BLOOD GAS PCO2 70.3 mmHg (35-45)
[2018-04-29] MEDS ORDERED: MIDAZOLAM HCL 5 MG/1 ML Single Dose Vial IVPUSH ONE (13:46)
[2018-04-29] MEDS ORDERED: MIDAZOLAM HCL 5 MG/1 ML Single Dose Vial ONE (14:00)
[2018-04-29] MEDS ORDERED: PROPOFOL 20 ML ONE (14:01)
--- NOTE | 2018-04-29 14:10 | PN ---
Progress Note (short form) - Note Progress Note: extubated on bipap alert no fevers back in rapid afib tachycardic denies chest or abdominal pain Vital Signs Period Temp Pulse Resp BP Sys/Morgan Pulse Ox Last 24 Hr 97.2 F-98.2 F 50-178 11-22 87-176/56-90 95-100 cor-rrr tachycardic lungs decreased bs at bases abd-soft, ny ext no edema moderate to severe MR on LUBNA- no vegetation CBC, BMP 04/29/18 05:30 04/29/18 05:30 Microbiology 04/28/18 12:27 Blood - Peripheral Venous Blood Culture - Preliminary NO GROWTH OBTAINED AFTER 24 HOURS, INCUBATION TO CONTINUE FOR 4 DAYS. 04/28/18 12:46 Blood - Peripheral Venous Blood Culture - Preliminary NO GROWTH OBTAINED AFTER 24 HOURS, INCUBATION TO CONTINUE FOR 4 DAYS. 04/23/18 12:52 Blood - Peripheral Venous Blood Culture - Final NO GROWTH AFTER 5 DAYS INCUBATION 04/23/18 11:30 Blood - Peripheral Venous Blood Culture - Preliminary Pending Organism 04/24/18 18:00 Sputum - Endotrachea Suction/Ventilator Gram Stain - Final 04/24/18 18:00 Sputum - Endotrachea Suction/Ventilator Sputum Culture - Final Enterobacter Aerogenes 04/26/18 10:00 Urine - Urine Bowling Legionella Antigen - Final 04/26/18 10:00 Urine - Urine Bowling Streptococcus pneumoniae Antigen (M - Final 04/23/18 13:00 Urine - Urine Clean Catch Urine Culture - Final NO GROWTH OBTAINED Current Medications Acetaminophen (Tylenol -) 650 mg PO Q6H PRN PRN Reason: FEVER Amino Acids (Prosource No Carb Liquid Pkt) 30 ml PO DAILY [facility] Last Admin: 04/29/18 09:55 Dose: 30 ml Chlorhexidine Gluconate (Hibiclens For Decolonization -) 1 applic TP HS [facility] Last Admin: 04/28/18 21:32 Dose: Not Given Chlorhexidine Gluconate (Peridex -) 15 ml MM BID [facility] Last Admin: 04/29/18 09:55 Dose: 15 ml Diltiazem HCl (Cardizem -) 30 mg PO TID [facility] Last Admin: 04/29/18 13:10 Dose: Not Given Heparin Sodium (Porcine) (Heparin -) 5,000 unit SQ BID [facility] Famotidine/Sodium Chloride (Pepcid 20 Mg Premixed Ivpb -) 20 mg in 50 mls @ 100 mls/hr IVPB BID TA Last Admin: 04/29/18 11:04 Dose: 100 mls/hr Vancomycin HCl (Vancomycin (Pre-Docked)) 1,000 mg in 250 mls @ 166.667 mls/hr IVPB BID [facility]; Protocol Last Admin: 04/29/18 09:56 Dose: 166.667 mls/hr Diltiazem HCl 125 mg/ Sodium (Chloride) 125 mls @ 5 mls/hr IVPB TITR TA; Protocol Last Admin: 04/29/18 13:08 Dose: 10 mg/hr, 10 mls/hr Insulin Aspart (Novolog Vial Sliding Scale -) 1 vial SQ ACHS [facility]; Protocol Last Admin: 04/29/18 11:26 Dose: 4 units Ipratropium [place] (Atrovent 0.02% Nebulizer -) 1 amp NEB RQID TA Last Admin: 04/29/18 11:45 Dose: 1 amp Methylprednisolone Sodium Succinate (Solu-Medrol -) 40 mg IVPUSH Q8H-IV TA Last Admin: 04/29/18 09:55 Dose: 40 mg Metoprolol Tartrate (Lopressor Injection -) 5 mg IVPUSH Q4H PRN PRN Reason: TACHYCARDIA Last Admin: 04/29/18 12:11 Dose: 5 mg Sodium Chloride ([place] Nasal [place] -) 2 spray NS BID PRN PRN Reason: NASAL CONGESTION a/p FUO respiratory failure-now extubated MRSA bacteremia-day #30 MRSA treatment plan total 42 days LUBNA no vegetations-severe mitral regurgitation thrombocytopenia endstage COPD afib with RVR continue vancomycin, check trough in am no signs pneumonia or other Gram negative infection WBC tagged study-d/w radiology- will not be possible or aid in evaluating the RUL collection plan for biopsy/drainage when extubated
[2018-04-29 14:21] LABS: ARTERIAL BLD GAS O2 SATURATION 98.4 % (90-98.9); ARTERIAL BLOOD GAS BASE EXCESS 5.5 meq/l (-2-2); ARTERIAL BLOOD GAS PCO2 58.8 mmHg (35-45); ARTERIAL BLOOD GAS pH 7.36 (7.35-7.45)
[2018-04-29 14:23] LABS: ALLENS TEST POSITIVE
[2018-04-29] MEDS ORDERED: LORazepam 2 MG/ML SDV VIAL ONE (18:29)
[2018-04-29] MEDS ORDERED: LORazepam 2 MG/ML SDV VIAL IVPUSH ONE ×2 (18:30→23:56)
[2018-04-29] MEDS: CHLORHEXIDINE GLUCONATE 4% CLEANSER FOR DECOLONIZATION TP SCH (21:07)
[2018-04-29] MEDS: ENOXAPARIN NA (PORCINE) 60 MG/0.6 ML DISP.SYRIN SQ SCH (21:11)
[2018-04-29] MEDS ORDERED: HEPARIN NA (PORCINE) 5,000 UNITS/ML 1ML VIAL SQ SCH (22:00)
[2018-04-30] MEDS ORDERED: LORazepam 2 MG/ML SDV VIAL ONE ×3 (00:01→23:25)
[2018-04-30] MEDS: methylPREDNISolone NA SUCC 40 MG/1 ML VIAL IVPUSH SCH ×3 (01:24→21:54)
[2018-04-30] MEDS: dilTIAZem HCL 30 MG TABLET (FP) PO SCH ×3 (06:12→22:00)
[2018-04-30 06:32] LABS: BASO % 0.1 % (0-2.0); HEMATOCRIT 33.2 % (35.4-49); HEMOGLOBIN 10.6 GM/dL (11.7-16.9); LYMPH % 1.1 % (8-40); MCH 29.8 pg (25.7-33.7); MEAN CELL VOLUME 93.1 fl (80-96); MEAN PLT VOLUME 9.4 fl (7.5-11.1); MONO % 2.1 % (3.8-10.2); NEUT % 96.7 % (42.8-82.8); PLATELET COUNT 109 K/MM3 (134-434); RBC 3.56 M/mm3 (4.00-5.60); RDW 16.5 % (11.9-15.9); WHITE BLOOD COUNT 8.9 K/mm3 (4.0-10.0)
[2018-04-30] MEDS: INSULIN SLIDING SCALE (NOVOLOG) 1 VIAL SQ SCH ×4 (06:56→22:00)
[2018-04-30 07:08] LABS: ARTERIAL BLD GAS O2 SATURATION 98.5 % (90-98.9); ARTERIAL BLOOD GAS BASE EXCESS 8.9 meq/l (-2-2); ARTERIAL BLOOD GAS pH 7.39 (7.35-7.45)
[2018-04-30 07:18] LABS: ALLENS TEST POSITIVE
[2018-04-30 07:22] LABS: ARTERIAL BLOOD GAS PCO2 60.5 mmHg (35-45)
[2018-04-30] MEDS: IPRATROPIUM BR 0.02% 0.5 MG/2.5 ML VIAL.NEB. NEB SCH ×4 (07:46→20:50)
[2018-04-30 07:47] LABS: ALBUMIN 2.3 g/dl (3.4-5.0); ALK PHOS 75 U/L (45-117); ANION GAP 6 MMOL/L (8-16); BILIRUBIN,TOTAL 0.6 mg/dL (0.2-1); BLOOD UREA NITROGEN 23 mg/dL (7-18); CHLORIDE 103 mmol/L (98-107); CO2 35 mmol/L (21-32); CREATININE 0.3 mg/dL (0.55-1.3); GLUCOSE,RANDOM 131 mg/dL (74-106); MAGNESIUM 2.5 mg/dL (1.8-2.4); PHOSPHOROUS 2.3 mg/dL (2.5-4.9); POTASSIUM 4.3 mmol/L (3.5-5.1); SGOT/AST 17 U/L (15-37); SGPT/ALT 35 U/L (13-61); SODIUM 144 mmol/L (136-145); TOT PROT 5.4 g/dl (6.4-8.2)
[2018-04-30] MEDS ORDERED: NAPH,MB-DB/K PH,MBDB POWDER PACKET PO ONE (08:44)
[2018-04-30] MEDS ORDERED: POTASSIUM PHOSPHATE 30 MM in SODIUM CHLORIDE 250 ML IVPB ONE (09:02)
[2018-04-30] MEDS: ENOXAPARIN NA (PORCINE) 60 MG/0.6 ML DISP.SYRIN SQ SCH ×2 (09:18→21:53)
[2018-04-30] MEDS: VANCOMYCIN 1 GRAM (PRE-DOCKED) 1,000 MG/250 ML BAG IVPB SCH ×2 (09:18→21:53)
[2018-04-30] MEDS: FAMOTIDINE 20 MG/50 ML IVPB 20 MG/50 ML MG IVPB SCH ×2 (09:18→21:53)
[2018-04-30] MEDS: CHLORHEXIDINE GLUCONATE 0.12% 15ML CUP MM SCH ×2 (09:18→21:54)
[2018-04-30] MEDS: AMINO ACIDS/PROTEIN HYDROLYS 30 ML LIQUID.PKT PO SCH (09:19)
--- NOTE | 2018-04-30 10:41 | PN ---
Progress Note (short form) - Note Progress Note: extubated on bipap alert no complaints Vital Signs Period Temp Pulse Resp BP Sys/Morgan Pulse Ox Last 24 Hr 97.2 F-98 F 57-178 11- 98-176/52-90 95-100 cor-rrr lungs decreased bs at bases abd soft,nt ext +echhymoses upper extremities no edema Microbiology 04/28/18 12:27 Blood - Peripheral Venous Blood Culture - Preliminary NO GROWTH OBTAINED AFTER 24 HOURS, INCUBATION TO CONTINUE FOR 4 DAYS. 04/28/18 12:46 Blood - Peripheral Venous Blood Culture - Preliminary NO GROWTH OBTAINED AFTER 24 HOURS, INCUBATION TO CONTINUE FOR 4 DAYS. 04/23/18 12:52 Blood - Peripheral Venous Blood Culture - Final NO GROWTH AFTER 5 DAYS INCUBATION 04/23/18 11:30 Blood - Peripheral Venous Blood Culture - Preliminary Pending Organism 04/24/18 18:00 Sputum - Endotrachea Suction/Ventilator Gram Stain - Final 04/24/18 18:00 Sputum - Endotrachea Suction/Ventilator Sputum Culture - Final Enterobacter Aerogenes 04/26/18 10:00 Urine - Urine Bowling Legionella Antigen - Final 04/26/18 10:00 Urine - Urine Bowling Streptococcus pneumoniae Antigen (M - Final 04/23/18 13:00 Urine - Urine Clean Catch Urine Culture - Final NO GROWTH OBTAINED moderate to severe MR on LUBNA- no vegetation Microbiology 04/28/18 12:27 Blood - Peripheral Venous Blood Culture - Preliminary NO GROWTH OBTAINED AFTER 24 HOURS, INCUBATION TO CONTINUE FOR 4 DAYS. 04/28/18 12:46 Blood - Peripheral Venous Blood Culture - Preliminary NO GROWTH OBTAINED AFTER 24 HOURS, INCUBATION TO CONTINUE FOR 4 DAYS. 04/23/18 12:52 Blood - Peripheral Venous Blood Culture - Final NO GROWTH AFTER 5 DAYS INCUBATION 04/23/18 11:30 Blood - Peripheral Venous Blood Culture - Preliminary Pending Organism 04/24/18 18:00 Sputum - Endotrachea Suction/Ventilator Gram Stain - Final 04/24/18 18:00 Sputum - Endotrachea Suction/Ventilator Sputum Culture - Final Enterobacter Aerogenes 04/26/18 10:00 Urine - Urine [place] Legionella Antigen - Final 04/26/18 10:00 Urine - Urine [place] Streptococcus pneumoniae Antigen (M - Final 04/23/18 13:00 Urine - Urine Clean Catch Urine Culture - Final NO GROWTH OBTAINED Current Medications Acetaminophen (Tylenol -) 650 mg PO Q6H PRN PRN Reason: FEVER Amino Acids (Prosource No Carb Liquid Pkt) 30 ml PO DAILY [facility] Last Admin: 04/30/18 09:19 Dose: Not Given Chlorhexidine Gluconate (Hibiclens For Decolonization -) 1 applic TP HS [facility] Last Admin: 04/29/18 21:07 Dose: Not Given Chlorhexidine Gluconate (Peridex -) 15 ml MM BID [facility] Last Admin: 04/30/18 09:18 Dose: Not Given Diltiazem HCl (Cardizem -) 30 mg PO TID [facility] Last Admin: 04/30/18 06:12 Dose: Not Given Enoxaparin Sodium (Lovenox -) 60 mg SQ BID [facility] Last Admin: 04/30/18 09:18 Dose: 60 mg Famotidine/Sodium Chloride (Pepcid 20 Mg Premixed Ivpb -) 20 mg in 50 mls @ 100 mls/hr IVPB BID [facility] Last Admin: 04/30/18 09:18 Dose: 100 mls/hr Vancomycin HCl (Vancomycin (Pre-Docked)) 1,000 mg in 250 mls @ 166.667 mls/hr IVPB BID [facility]; Protocol Last Admin: 04/30/18 09:18 Dose: 166.667 mls/hr Diltiazem HCl 125 mg/ Sodium (Chloride) 125 mls @ 5 mls/hr IVPB TITR [facility]; Protocol Last Titration: 04/30/18 08:00 Dose: 5 mg/hr, 5 mls/hr Potassium Phosphate 30 mm/ (Sodium Chloride) 260 mls @ 43.333 mls/hr IVPB ONCE ONE Stop: 04/30/18 15:01 Insulin Aspart (Novolog Vial Sliding Scale -) 1 vial SQ ACHS [facility]; Protocol Last Admin: 04/30/18 06:56 Dose: Not Given Ipratropium [place] (Atrovent 0.02% Nebulizer -) 1 amp NEB RQID [facility] Last Admin: 04/30/18 07:46 Dose: 1 amp Methylprednisolone Sodium Succinate (Solu-Medrol -) 40 mg IVPUSH Q8H-IV [facility] Last Admin: 04/30/18 09:18 Dose: 40 mg Metoprolol Tartrate (Lopressor Injection -) 5 mg IVPUSH Q4H PRN PRN Reason: TACHYCARDIA Last Admin: 04/29/18 12:11 Dose: 5 mg Sodium Chloride ([place] Nasal [place] -) 2 spray NS BID PRN PRN Reason: NASAL CONGESTION a/p FUO respiratory failure-now extubated MRSA bacteremia-day #31 MRSA treatment plan total 42 days LUBNA no vegetations-severe mitral regurgitation thrombocytopenia-platelets are recovering endstage COPD afib with RVR continue vancomycin, check trough today no signs pneumonia or other Gram negative infection WBC tagged study-d/w radiology- will not be possible or aid in evaluating the RUL collection plan for biopsy/drainage RUL collectin when extubated
--- NOTE | 2018-04-30 10:56 | PN ---
Progress Note, Physician - Current Medication List Current Medications: Active Medications Acetaminophen (Tylenol -) 650 mg PO Q6H PRN PRN Reason: FEVER Amino Acids (Prosource No Carb Liquid Pkt) 30 ml PO DAILY [facility] Last Admin: 04/30/18 09:19 Dose: Not Given Chlorhexidine Gluconate (Hibiclens For Decolonization -) 1 applic TP HS [facility] Last Admin: 04/29/18 21:07 Dose: Not Given Chlorhexidine Gluconate (Peridex -) 15 ml MM BID [facility] Last Admin: 04/30/18 09:18 Dose: Not Given Diltiazem HCl (Cardizem -) 30 mg PO TID [facility] Last Admin: 04/30/18 06:12 Dose: Not Given Enoxaparin Sodium (Lovenox -) 60 mg SQ BID [facility] Last Admin: 04/30/18 09:18 Dose: 60 mg Famotidine/Sodium Chloride (Pepcid 20 Mg Premixed Ivpb -) 20 mg in 50 mls @ 100 mls/hr IVPB BID [facility] Last Admin: 04/30/18 09:18 Dose: 100 mls/hr Vancomycin HCl (Vancomycin (Pre-Docked)) 1,000 mg in 250 mls @ 166.667 mls/hr IVPB BID [facility]; Protocol Last Admin: 04/30/18 09:18 Dose: 166.667 mls/hr Diltiazem HCl 125 mg/ Sodium (Chloride) 125 mls @ 5 mls/hr IVPB TITR [facility]; Protocol Last Titration: 04/30/18 08:00 Dose: 5 mg/hr, 5 mls/hr Potassium Phosphate 30 mm/ (Sodium Chloride) 260 mls @ 43.333 mls/hr IVPB ONCE ONE Stop: 04/30/18 15:01 Insulin Aspart (Novolog Vial Sliding Scale -) 1 vial SQ ACHS [facility]; Protocol Last Admin: 04/30/18 06:56 Dose: Not Given Ipratropium [place] (Atrovent 0.02% Nebulizer -) 1 amp NEB RQID [facility] Last Admin: 04/30/18 07:46 Dose: 1 amp Methylprednisolone Sodium Succinate (Solu-Medrol -) 40 mg IVPUSH Q8H-IV [facility] Last Admin: 04/30/18 09:18 Dose: 40 mg Metoprolol Tartrate (Lopressor Injection -) 5 mg IVPUSH Q4H PRN PRN Reason: TACHYCARDIA Last Admin: 04/29/18 12:11 Dose: 5 mg Sodium Chloride ([place] Nasal [place] -) 2 spray NS BID PRN PRN Reason: NASAL CONGESTION - Objective Vital Signs: Vital Signs Temperature 97.8 F 04/30/18 06:00 Pulse Rate 58 L 04/30/18 08:00 Respiratory Rate 18 04/30/18 08:00 Blood Pressure 100/52 L 04/30/18 08:00 O2 Sat by Pulse Oximetry (%) 100 04/30/18 09:14 Cardiovascular: Yes: S1, S2 Respiratory: Yes: On BiPap Gastrointestinal: Yes: Normal Bowel Sounds, Soft Labs: CBC, BMP 04/30/18 05:30 04/30/18 05:30 INR, PTT INR 1.14 (0.83-1.09) H 04/27/18 08:31 Problem List - Problems (1) Acute and chronic respiratory failure with hypercapnia Assessment/Plan: Extubated--on bipap pulm on board oxygen bronchodilators Code(s): J96.22 - ACUTE AND CHRONIC RESPIRATORY FAILURE WITH HYPERCAPNIA (2) Anemia Assessment/Plan: Monitor 04/29/18 04/30/18 05:30 05:30 Hgb 9.4 L 10.6 L Code(s): D64.9 - ANEMIA, UNSPECIFIED Qualifiers: Anemia type: unspecified type Qualified Code(s): D64.9 - Anemia, unspecified (3) COPD (chronic obstructive pulmonary disease) Assessment/Plan: -Nebs -steroids Code(s): J44.9 - CHRONIC OBSTRUCTIVE PULMONARY DISEASE, UNSPECIFIED Qualifiers: COPD type: unspecified COPD Qualified Code(s): J44.9 - Chronic obstructive pulmonary disease, unspecified (4) MRSA bacteremia Assessment/Plan: Abx per id--Vanco isolation ID consult and follow up noted LUBNA done no vegetation Code(s): R78.81 - BACTEREMIA (5) Nasal hemorrhage Assessment/Plan: ( ENT consult noted nasal packing monitor h/h prbc Code(s): R04.0 - EPISTAXIS (6) Afib Assessment/Plan: icu cardizem hold for now- hold AC Code(s): I48.91 - UNSPECIFIED ATRIAL FIBRILLATION
[2018-04-30 11:11] LABS: ANISOCYTOSIS 1+; MACROCYTOSIS 0; PLATELET ESTIMATE DECREASED
--- NOTE | 2018-04-30 11:17 | PN ---
Progress Note, Physician History of Present Illness: Extubated on bipap and back PAF->SR, LUBNA results reviewed with . - Current Medication List Current Medications: Active Medications Acetaminophen (Tylenol -) 650 mg PO Q6H PRN PRN Reason: FEVER Amino Acids (Prosource No Carb Liquid Pkt) 30 ml PO DAILY [facility] Last Admin: 04/30/18 09:19 Dose: Not Given Chlorhexidine Gluconate (Hibiclens For Decolonization -) 1 applic TP HS [facility] Last Admin: 04/29/18 21:07 Dose: Not Given Chlorhexidine Gluconate (Peridex -) 15 ml MM BID [facility] Last Admin: 04/30/18 09:18 Dose: Not Given Diltiazem HCl (Cardizem -) 30 mg PO TID [facility] Last Admin: 04/30/18 06:12 Dose: Not Given Enoxaparin Sodium (Lovenox -) 60 mg SQ BID [facility] Last Admin: 04/30/18 09:18 Dose: 60 mg Famotidine/Sodium Chloride (Pepcid 20 Mg Premixed Ivpb -) 20 mg in 50 mls @ 100 mls/hr IVPB BID [facility] Last Admin: 04/30/18 09:18 Dose: 100 mls/hr Vancomycin HCl (Vancomycin (Pre-Docked)) 1,000 mg in 250 mls @ 166.667 mls/hr IVPB BID [facility]; Protocol Last Admin: 04/30/18 09:18 Dose: 166.667 mls/hr Diltiazem HCl 125 mg/ Sodium (Chloride) 125 mls @ 5 mls/hr IVPB TITR [facility]; Protocol Last Titration: 04/30/18 08:00 Dose: 5 mg/hr, 5 mls/hr Potassium Phosphate 30 mm/ (Sodium Chloride) 260 mls @ 43.333 mls/hr IVPB ONCE ONE Stop: 04/30/18 15:01 Insulin Aspart (Novolog Vial Sliding Scale -) 1 vial SQ ACHS [facility]; Protocol Last Admin: 04/30/18 06:56 Dose: Not Given Ipratropium [place] (Atrovent 0.02% Nebulizer -) 1 amp NEB RQID [facility] Last Admin: 04/30/18 07:46 Dose: 1 amp Methylprednisolone Sodium Succinate (Solu-Medrol -) 40 mg IVPUSH Q8H-IV [facility] Last Admin: 04/30/18 09:18 Dose: 40 mg Metoprolol Tartrate (Lopressor Injection -) 5 mg IVPUSH Q4H PRN PRN Reason: TACHYCARDIA Last Admin: 04/29/18 12:11 Dose: 5 mg Sodium Chloride ([place] Nasal [place] -) 2 spray NS BID PRN PRN Reason: NASAL CONGESTION - Objective Vital Signs: Vital Signs Temperature 97.8 F 04/30/18 06:00 Pulse Rate 58 L 04/30/18 08:00 Respiratory Rate 18 04/30/18 08:00 Blood Pressure 100/52 L 04/30/18 08:00 O2 Sat by Pulse Oximetry (%) 100 04/30/18 09:14 Constitutional: Yes: No Distress, Calm, Thin Neck: Yes: Supple Cardiovascular: Yes: Regular Rate and Rhythm Respiratory: Yes: On BiPap, Rhonchi Gastrointestinal: Yes: Normal Bowel Sounds, Soft Edema: No Labs: CBC, BMP 04/30/18 05:30 04/30/18 05:30 INR, PTT INR 1.14 (0.83-1.09) H 04/27/18 08:31 - ....Imaging Chest X-ray: Report Reviewed (RUL density) EKG: Report Reviewed (Tele: PAF->SR) Problem List - Problems (1) Hypotension Code(s): I95.9 - HYPOTENSION, UNSPECIFIED Qualifiers: Hypotension type: other hypotension type Qualified Code(s): I95.89 - Other hypotension (2) Acute and chronic respiratory failure with hypercapnia Code(s): J96.22 - ACUTE AND CHRONIC RESPIRATORY FAILURE WITH HYPERCAPNIA (3) Anemia Code(s): D64.9 - ANEMIA, UNSPECIFIED Qualifiers: Anemia type: unspecified type Qualified Code(s): D64.9 - Anemia, unspecified (4) COPD (chronic obstructive pulmonary disease) Code(s): J44.9 - CHRONIC OBSTRUCTIVE PULMONARY DISEASE, UNSPECIFIED Qualifiers: COPD type: unspecified COPD Qualified Code(s): J44.9 - Chronic obstructive pulmonary disease, unspecified (5) Diastolic dysfunction Code(s): I51.9 - HEART DISEASE, UNSPECIFIED (6) Epistaxis, recurrent Code(s): R04.0 - EPISTAXIS (7) Hyperlipidemia Code(s): E78.5 - HYPERLIPIDEMIA, UNSPECIFIED Qualifiers: Hyperlipidemia type: pure hypercholesterolemia Qualified Code(s): E78.00 - Pure hypercholesterolemia, unspecified; E78.0 - Pure hypercholesterolemia (8) Hyperthyroidism Code(s): E05.90 - THYROTOXICOSIS, UNSP WITHOUT THYROTOXIC CRISIS OR STORM (9) Paroxysmal A-fib Code(s): I48.0 - PAROXYSMAL ATRIAL FIBRILLATION (10) Mitral valve anterior leaflet prolapse Code(s): I34.1 - NONRHEUMATIC MITRAL (VALVE) PROLAPSE (11) Moderate to severe mitral regurgitation Code(s): I34.0 - NONRHEUMATIC MITRAL (VALVE) INSUFFICIENCY Assessment/Plan 04/27/2018 Preliminary result shows moderate to severe MR with posteriorly directed eccentric jet due to anterior mitral valve prolapse, mild TR and normal LV systolic function. There were no vegetations. Small pericardial effusion may be seen 1. Acute on Chronic Hypoxic and Hypercapneic Respiratory Failure referable to 2. Acute on chronic class II-III NYHA classification LV diastolic failure referable to underlying posterior directed mod-severe MR due to anterior MV prolapse 3. 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 Sepsis syndrome, history of MRSA bacteremia of unclear source, with splenic infarct #31 MRSA treatment plan total 42 days 5. Advanced chronic obstructive pulmonary disease on home oxygen therapy with Pulmonary HTN 6. Epistaxis, prior history requiring intervention, nasal packing in situ 7. Anemia related to above and in addition thrombocytopenia etiology to be determined 8. Paroxysmal atrial fibrillation with [id number] score of 2 on A/C with Lovenox pending possible RUL biopsy 9. HTN 10. 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 UTI PLAN: 1. Continue Cardizem gtt and IV Lopressor prn for rate-control, hemodynamics permitting 2. Continue to withhold Diovan and may resume in AM provided hemodynamics permit 3. Lovenox pending possible RUL biopsy 4. As outlined in prior notes if recurrent arrhythmia may consider antiarrhythmics/Amiodarone 5. Resume Lipitor 10 qhs 6. Monitor Hg and transfuse as needed to maintain Hg equal or > 8.0 7. BD, IV steroids, antibiotics course as per ID service/primary team 8. Wean FIO2 as tolerated, plan for biopsy/drainage RUL collection when clinically improved
[2018-04-30] MEDS ORDERED: PT OWN MED DRAWER 7, Y5N ONE (11:36)
[2018-04-30] MEDS ORDERED: LORazepam 2 MG/ML SDV VIAL IVPUSH ONE ×2 (11:59→23:30)
--- NOTE | 2018-04-30 13:08 | PN ---
Progress Note (short form) - Note Progress Note: PROGRESS NOTE FOR HEMATOLOGY/ONCOLOGY Patient seen and examined by me at bedside. S/P Extubation yesterday and now on BIPAP Offers no complaints Platelets improving Otherwise, denies any fever, chills, nausea, vomiting, chest pain, abdominal pain, headaches, dysuria, hematuria, melena, hematochezia Vital Signs Temperature 97.8 F 04/30/18 06:00 Pulse Rate 58 L 04/30/18 08:00 Respiratory Rate 18 04/30/18 08:00 Blood Pressure 100/52 L 04/30/18 08:00 O2 Sat by Pulse Oximetry (%) 100 04/30/18 11:42 PHYSICAL EXAMINATION: GENERAL: Awake, alert, in no acute distress EYES: Pupils equal, round and reactive to light, extraocular movements intact, sclera anicteric, conjunctiva clear. ENT: Dry mucoud membranes LUNGS: On BIPAP. Coarse breath sounds throughout lung bases bilaterally HEART: Tachycardic with irregularly irregular rhythm, normal S1 and S2 ABDOMEN: Soft, nontender, not distended, normoactive bowel sounds EXTREMITIES: No peripheral edema Laboratory Tests 04/30/18 05:30 04/30/18 05:30 04/27/18 18:50 Heparin-Ind Plt Ab Scrn 0.296 ASSESSMENT/PLAN: Patient is a 67 year old male who presented for recurrent epistaxis and was found to be in Severe Sepsis of unknown etiology. Patient's lab work revealed thrombocytopenia and we were consulted for further evaluation and recommendation. Problem List: Epistaxis Thrombocytopenia Severe Sepsis MRSA bacteremia Atrial Fibrillation (On eliquis) Advanced COPD (on 3L 02) Interstitial Lung disease HTN HLD CAD s/p OR Diastolic LV dysfunction PLAN: -HIT normal -Patient likely has thrombocytopenia related to sepsis -Platelets recovering to 109k -Would continue to monitor
--- NOTE | 2018-04-30 13:33 | PN ---
Teaching Attending Note Name of Resident: Deandra Murray ATTENDING PHYSICIAN STATEMENT I saw and evaluated the patient. I reviewed the resident's note and discussed the case with the resident. I agree with the resident's findings and plan as documented. SUBJECTIVE: Patient seen and examined Extubated Remains dyspneic and tachypneic Last Vital Signs Temp Pulse Resp BP Pulse Ox 97.8 F 58 L 18 100/52 L 100 04/30/18 06:00 04/30/18 08:00 04/30/18 08:00 04/30/18 08:00 04/30/18 11:42 Flow mask Diffuse rhonchi and wheezes Cor -irregular rhythm Soft abd Bowling catheter Extr- edema CBC, BMP 04/30/18 05:30 04/30/18 05:30 Current Medications Generic Name Dose Route Start Last Admin Trade Name Freq PRN Reason Stop Dose Admin Acetaminophen 650 mg 04/23/18 13:40 Tylenol - PO Q6H PRN FEVER Amino Acids 30 ml 04/28/18 15:00 04/30/18 09:19 Prosource No Carb Liquid Pkt PO Not Given DAILY TA Chlorhexidine Gluconate 1 applic 04/23/18 22:00 04/29/18 21:07 Hibiclens For Decolonization - TP Not Given HS TA Chlorhexidine Gluconate 15 ml 04/25/18 22:00 04/30/18 09:18 Peridex - MM Not Given BID TA Diltiazem HCl 30 mg 04/28/18 22:00 04/30/18 06:12 Cardizem - PO Not Given TID TA Enoxaparin Sodium 60 mg 04/29/18 22:00 04/30/18 09:18 Lovenox - SQ 60 mg BID TA Administration Famotidine/Sodium Chloride 20 mg in 50 mls @ 100 mls/hr 04/24/18 10:00 09:18 Pepcid 20 Mg Premixed Ivpb - IVPB 100 mls/hr BID TA Administration Vancomycin HCl 1,000 mg in 250 mls @ 166.667 mls/hr 04/28/18 10:00 04/30/18 09:18 Vancomycin (Pre-Docked) IVPB 166.667 mls/hr BID TA Administration Protocol Diltiazem HCl 125 mg/ Sodium 125 mls @ 5 mls/hr 04/29/18 12:45 04/30/18 08:00 Chloride IVPB 5 mg/hr TITR TA 5 mls/hr Titration Protocol 5 MG/HR Potassium Phosphate 30 mm/ 260 mls @ 43.333 mls/hr 04/30/18 09:02 04/30/18 11 :38 Sodium Chloride IVPB 04/30/18 15:01 43.333 mls/hr ONCE ONE Administration Insulin Aspart 1 vial 04/24/18 11:00 04/30/18 11:51 Novolog Vial Sliding Scale - SQ 2 units ACHS TA Administration Protocol Ipratropium [place] 1 amp 04/27/18 12:00 04/30/18 11:51 Atrovent 0.02% Nebulizer - NEB 1 amp RQID TA Administration Methylprednisolone Sodium Succinate 40 mg 04/26/18 18:00 04/30/18 09:18 Solu-Medrol - IVPUSH 40 mg Q8H-IV TA Administration Metoprolol Tartrate 5 mg 04/27/18 14:35 04/29/18 12:11 Lopressor Injection - IVPUSH 5 mg Q4H PRN Administration TACHYCARDIA Sodium Chloride 2 spray 04/29/18 09:00 [place] Nasal [place] - NS BID PRN NASAL CONGESTION OBJECTIVE: Acute on Chronic Hypoxic and Hypercapneic Respiratory Failure UTI Septic Shock Lactic Acidosis Epistaxis Acute on Chronic Diastolic Heart Failure Severe Mitral Regurgitation Thrombocytopenia CAD COPD Pulmonary HTN Paroxysmal Atrial Fibrillation HTN Hypercholesterolemia ASSESSMENT AND PLAN: Platelet count improved HIT - normal Likely etiology for thrombocytopenia- MRSA bacteremia which is being treated. Would continue to monitor.
--- NOTE | 2018-04-30 14:15 | PN ---
Teaching Attending Note Name of Resident: Celestine Carrillo ATTENDING PHYSICIAN STATEMENT I saw and evaluated the patient. I reviewed the resident's note and discussed the case with the resident. I agree with the resident's findings and plan as documented. SUBJECTIVE: Patient seen and examined in the ICU. Remains extubated but on NIPPV support all night. Remains mildly tachypneic. Denies CP. OBJECTIVE: Intake & Output 04/27/18 04/28/18 04/29/18 04/30/18 23:59 23:59 23:59 23:59 Intake Total 2429 2472.5 2966 240 Output Total 1000 550 650 400 Balance 1429 1922.5 2316 -160 Weight 133 lb 9.602 oz 133 lb 6.075 oz 138 lb 0.15 oz 133 lb 9.602 oz Last Vital Signs Temp Pulse Resp BP Pulse Ox 93.2 F L 58 L 18 100/52 L 100 04/30/18 13:57 04/30/18 08:00 04/30/18 08:00 04/30/18 08:00 04/30/18 11:42 Active Medications Acetaminophen (Tylenol -) 650 mg PO Q6H PRN PRN Reason: FEVER Amino Acids (Prosource No Carb Liquid Pkt) 30 ml PO DAILY [facility] Last Admin: 04/30/18 09:19 Dose: Not Given Chlorhexidine Gluconate (Hibiclens For Decolonization -) 1 applic TP HS [facility] Last Admin: 04/29/18 21:07 Dose: Not Given Chlorhexidine Gluconate (Peridex -) 15 ml MM BID [facility] Last Admin: 04/30/18 09:18 Dose: Not Given Diltiazem HCl (Cardizem -) 30 mg PO TID [facility] Last Admin: 04/30/18 06:12 Dose: Not Given Enoxaparin Sodium (Lovenox -) 60 mg SQ BID [facility] Last Admin: 04/30/18 09:18 Dose: 60 mg Famotidine/Sodium Chloride (Pepcid 20 Mg Premixed Ivpb -) 20 mg in 50 mls @ 100 mls/hr IVPB BID [facility] Last Admin: 04/30/18 09:18 Dose: 100 mls/hr Vancomycin HCl (Vancomycin (Pre-Docked)) 1,000 mg in 250 mls @ 166.667 mls/hr IVPB BID [facility]; Protocol Last Admin: 04/30/18 09:18 Dose: 166.667 mls/hr Diltiazem HCl 125 mg/ Sodium (Chloride) 125 mls @ 5 mls/hr IVPB TITR TA; Protocol Last Titration: 04/30/18 08:00 Dose: 5 mg/hr, 5 mls/hr Potassium Phosphate 30 mm/ (Sodium Chloride) 260 mls @ 43.333 mls/hr IVPB ONCE ONE Stop: 04/30/18 15:01 Last Admin: 04/30/18 11:38 Dose: 43.333 mls/hr Insulin Aspart (Novolog Vial Sliding Scale -) 1 vial SQ ACHS [facility]; Protocol Last Admin: 04/30/18 11:51 Dose: 2 units Ipratropium [place] (Atrovent 0.02% Nebulizer -) 1 amp NEB RQID [facility] Last Admin: 04/30/18 11:51 Dose: 1 amp Methylprednisolone Sodium Succinate (Solu-Medrol -) 40 mg IVPUSH Q8H-IV TA Last Admin: 04/30/18 09:18 Dose: 40 mg Metoprolol Tartrate (Lopressor Injection -) 5 mg IVPUSH Q4H PRN PRN Reason: TACHYCARDIA Last Admin: 04/29/18 12:11 Dose: 5 mg Sodium Chloride ([place] Nasal [place] -) 2 spray NS BID PRN PRN Reason: NASAL CONGESTION Gen: Mildly tachypneic on BiPAP Heart: tachycardic, irregular Lung: scattered rhonchi Abd: soft, nontender Ext: no edema Laboratory Results - last 24 hr 04/27/18 04/29/18 04/30/18 18:50 14:00 05:30 WBC 8.9 RBC 3.56 L Hgb 10.6 L Hct 33.2 L MCV 93.1 MCH 29.8 MCHC 32.0 RDW 16.5 H Plt Count 109 L D MPV 9.4 Absolute Neuts (auto) 8.6 H Neutrophils % 96.7 H Neutrophils % (Manual) 91.9 H Band Neutrophils % 7.1 Lymphocytes % 1.1 L D Lymphocytes % (Manual) 1.0 L Monocytes % 2.1 L Monocytes % (Manual) 0 L D Eosinophils % 0.0 Eosinophils % (Manual) 0.0 Basophils % 0.1 Basophils % (Manual) 0.0 Myelocytes % (Man) 0 Promyelocytes % (Man) 0 Blast Cells % (Manual) 0 Nucleated RBC % 0 Metamyelocytes 0 Hypochromia 0 Platelet Estimate Decreased Polychromasia 3+ Poikilocytosis 0 Anisocytosis 1+ Microcytosis 1+ Macrocytosis 0 Anticoagulation Therapy Puncture Site Left radial ABG pH 7.36 ABG pCO2 at Pt Temp 58.8 H ABG pO2 at Pt Temp 127.0 H D ABG HCO3 32.0 H ABG O2 Sat (Measured) 98.4 ABG O2 Content 16.2 ABG Base Excess 5.5 H Pardeep Test Positive O2 Delivery Device Bipap Oxygen Flow Rate 40 Vent Mode S/t Vent Rate 15 Mechanical Rate PEEP Pressure Support Vent [id number] Sodium Potassium Chloride Carbon Dioxide Anion Gap BUN Creatinine Creat Clearance w eGFR Random Glucose Calcium Phosphorus Magnesium Total Bilirubin AST ALT Alkaline Phosphatase Total Protein Albumin Vancomycin Pre-Dose Heparin-Ind Plt Ab Scrn 0.296 04/30/18 04/30/18 04/30/18 05:30 06:45 09:20 WBC RBC Hgb Hct MCV MCH MCHC RDW Plt Count MPV Absolute Neuts (auto) Neutrophils % Neutrophils % (Manual) Band Neutrophils % Lymphocytes % Lymphocytes % (Manual) Monocytes % Monocytes % (Manual) Eosinophils % Eosinophils % (Manual) Basophils % Basophils % (Manual) Myelocytes % (Man) Promyelocytes % (Man) Blast Cells % (Manual) Nucleated RBC % Metamyelocytes Hypochromia Platelet Estimate Polychromasia Poikilocytosis Anisocytosis Microcytosis Macrocytosis Anticoagulation Therapy No Result Required. Puncture Site Right radial ABG pH 7.39 ABG pCO2 at Pt Temp 60.5 H* ABG pO2 at Pt Temp 127.0 H ABG HCO3 35.4 H ABG O2 Sat (Measured) 98.5 ABG O2 Content 16.5 ABG Base Excess 8.9 H Pardeep Test Positive O2 Delivery Device Bipap Oxygen Flow Rate 45% Vent Mode No Result Required. Vent Rate 15 Mechanical Rate No Result Required. PEEP 5.0 Pressure Support Vent 18 Sodium 144 Potassium 4.3 Chloride 103 Carbon Dioxide 35 H Anion Gap 6 L BUN 23 H Creatinine 0.3 L Creat Clearance w eGFR > 60 Random Glucose 131 H Calcium 8.0 L Phosphorus 2.3 L Magnesium 2.5 H Total Bilirubin 0.6 AST 17 ALT 35 Alkaline Phosphatase 75 Total Protein 5.4 L Albumin 2.3 L Vancomycin Pre-Dose 14.6 L Heparin-Ind Plt Ab Scrn ASSESSMENT AND PLAN: Acute on Chronic Hypoxic and Hypercapneic Respiratory Failure UTI Septic Shock Lactic Acidosis Epistaxis Acute on Chronic Diastolic Heart Failure Severe Mitral Regurgitation Thrombocytopenia CAD COPD Pulmonary HTN Paroxysmal Atrial Fibrillation HTN Hypercholesterolemia Endocarditis ruled out - Trial of HFOT: if he cannot tolerate -> place back on NIPPV - ABX per ID - off pressors, maintain MAP >65 - monitor urine output, creatinine - monitor CBC - AC - rate control with cardizem gtt, lopressor IVP - Wean medrol - inhaled bronchodilators - O2 to keep SpO2 >90% - DVT/GI prophylaxis - continue ICU monitoring for tenuous respiratory status - Low threshold for re-intubation Dr Donovan Critical care time spent in reviewing chart, evaluating patient and formulating plan 35 min
--- NOTE | 2018-04-30 15:16 | PN ---
Physical Exam: SUBJECTIVE: Patient seen and examined in the ICU. Remains extubated but on NIPPV support all night. denies cp, sob, n/v. OBJECTIVE: Vital Signs Period Temp Pulse Resp BP Sys/Morgan Pulse Ox Last 24 Hr 93.2 F-98 F 57-148 16-24 98-139/52-84 96-100 GENERAL: The patient is awake, alert and exubated on Bipap HEAD: NCAT EYES: PERRLA ENT: MMM NECK: Trachea midline LUNGS: slightly coarse breath sounds in upper lobes bilaterally, no wheezes, no crackles, no accessory muscle use. HEART: RRR, S1, S2 without murmur, rub or gallop. ABDOMEN: Soft, NTND normoactive bowel sounds, no guarding, no rebound, EXTREMITIES: 2+ pulses, warm, well-perfused, no edema. NEUROLOGICAL: awake, alert and exubated. strength sensation grossly intact SKIN: Warm, dry, normal turgor, no rashes or lesions noted Laboratory Results - last 24 hr 04/27/18 04/30/18 04/30/18 18:50 05:30 05:30 WBC 8.9 RBC 3.56 L Hgb 10.6 L Hct 33.2 L MCV 93.1 MCH 29.8 MCHC 32.0 RDW 16.5 H Plt Count 109 L D MPV 9.4 Absolute Neuts (auto) 8.6 H Neutrophils % 96.7 H Neutrophils % (Manual) 91.9 H Band Neutrophils % 7.1 Lymphocytes % 1.1 L D Lymphocytes % (Manual) 1.0 L Monocytes % 2.1 L Monocytes % (Manual) 0 L D Eosinophils % 0.0 Eosinophils % (Manual) 0.0 Basophils % 0.1 Basophils % (Manual) 0.0 Myelocytes % (Man) 0 Promyelocytes % (Man) 0 Blast Cells % (Manual) 0 Nucleated RBC % 0 Metamyelocytes 0 Hypochromia 0 Platelet Estimate Decreased Polychromasia 3+ Poikilocytosis 0 Anisocytosis 1+ Microcytosis 1+ Macrocytosis 0 Anticoagulation Therapy Puncture Site ABG pH ABG pCO2 at Pt Temp ABG pO2 at Pt Temp ABG HCO3 ABG O2 Sat (Measured) ABG O2 Content ABG Base Excess Pardeep Test O2 Delivery Device Oxygen Flow Rate Vent Mode Vent Rate Mechanical Rate PEEP Pressure Support Vent Sodium 144 Potassium 4.3 Chloride 103 Carbon Dioxide 35 H Anion Gap 6 L BUN 23 H Creatinine 0.3 L Creat Clearance w eGFR > 60 Random Glucose 131 H Calcium 8.0 L Phosphorus 2.3 L Magnesium 2.5 H Total Bilirubin 0.6 AST 17 ALT 35 Alkaline Phosphatase 75 Total Protein 5.4 L Albumin 2.3 L Vancomycin Pre-Dose Heparin-Ind Plt Ab Scrn 0.296 04/30/18 04/30/18 06:45 09:20 WBC RBC Hgb Hct MCV MCH MCHC RDW Plt Count MPV Absolute Neuts (auto) Neutrophils % Neutrophils % (Manual) Band Neutrophils % Lymphocytes % Lymphocytes % (Manual) Monocytes % Monocytes % (Manual) Eosinophils % Eosinophils % (Manual) Basophils % Basophils % (Manual) Myelocytes % (Man) Promyelocytes % (Man) Blast Cells % (Manual) Nucleated RBC % Metamyelocytes Hypochromia Platelet Estimate Polychromasia Poikilocytosis Anisocytosis Microcytosis Macrocytosis Anticoagulation Therapy No Result Required. Puncture Site Right radial ABG pH 7.39 ABG pCO2 at Pt Temp 60.5 H* ABG pO2 at Pt Temp 127.0 H ABG HCO3 35.4 H ABG O2 Sat (Measured) 98.5 ABG O2 Content 16.5 ABG Base Excess 8.9 H Pardeep Test Positive O2 Delivery Device Bipap Oxygen Flow Rate 45% Vent Mode No Result Required. Vent Rate 15 Mechanical Rate No Result Required. PEEP 5.0 Pressure Support Vent 18 Sodium Potassium Chloride Carbon Dioxide Anion Gap BUN Creatinine Creat Clearance w eGFR Random Glucose Calcium Phosphorus Magnesium Total Bilirubin AST ALT Alkaline Phosphatase Total Protein Albumin Vancomycin Pre-Dose 14.6 L Heparin-Ind Plt Ab Scrn Active Medications Generic Name Dose Route Start Last Admin Trade Name Freq PRN Reason Stop Dose Admin Acetaminophen 650 mg 04/23/18 13:40 Tylenol - PO Q6H PRN FEVER Amino Acids 30 ml 04/28/18 15:00 04/30/18 09:19 Prosource No Carb Liquid Pkt PO Not Given DAILY TA Chlorhexidine Gluconate 1 applic 04/23/18 22:00 04/29/18 21:07 Hibiclens For Decolonization - TP Not Given HS TA Chlorhexidine Gluconate 15 ml 04/25/18 22:00 04/30/18 09:18 Peridex - MM Not Given BID TA Diltiazem HCl 30 mg 04/28/18 22:00 04/30/18 14:18 Cardizem - PO Not Given TID TA Enoxaparin Sodium 60 mg 04/29/18 22:00 04/30/18 09:18 Lovenox - SQ 60 mg BID TA Administration Famotidine/Sodium Chloride 20 mg in 50 mls @ 100 mls/hr 04/24/18 10:00 09:18 Pepcid 20 Mg Premixed Ivpb - IVPB 100 mls/hr BID TA Administration Vancomycin HCl 1,000 mg in 250 mls @ 166.667 mls/hr 04/28/18 10:00 04/30/18 09:18 Vancomycin (Pre-Docked) IVPB 166.667 mls/hr BID TA Administration Protocol Diltiazem HCl 125 mg/ Sodium 125 mls @ 5 mls/hr 04/29/18 12:45 04/30/18 08:00 Chloride IVPB 5 mg/hr TITR TA 5 mls/hr Titration Protocol 5 MG/HR Insulin Aspart 1 vial 04/24/18 11:00 04/30/18 11:51 Novolog Vial Sliding Scale - SQ 2 units ACHS TA Administration Protocol Ipratropium [place] 1 amp 04/27/18 12:00 04/30/18 11:51 Atrovent 0.02% Nebulizer - NEB 1 amp RQID TA Administration Methylprednisolone Sodium Succinate 40 mg 04/26/18 18:00 04/30/18 09:18 Solu-Medrol - IVPUSH 40 mg Q8H-IV TA Administration Metoprolol Tartrate 5 mg 04/27/18 14:35 04/29/18 12:11 Lopressor Injection - IVPUSH 5 mg Q4H PRN Administration TACHYCARDIA Sodium Chloride 2 spray 04/29/18 09:00 [place] Nasal [place] - NS BID PRN NASAL CONGESTION ASSESSMENT/PLAN: 67 yo M with history of COPD on home oxygen (3L), Interstitial lung disease, HTN , HLD, CHF, diastolic LV dysfunction, MO, CAD, GERD, hiatal hernia, recent dx of Afib with RVR on Eliquis (last dose 04/22 AM), presenting to the ER with a complaint of epistaxis, hypotension and tachycardia. Now admitted to ICU for septic shock. Pt was recently admitted for MRSA bacteremia ID Septic Shock -likely 2/2 urosepsis - ID following case - monitor intake/ output maintain urine output of 1ml/kg/hr to 0.5ml/kg/hr - Keep MAP> 65, off pressors - femoral line removed, picc line removed - blood and urine culture neg, sputum culture with gram negative bacilli -no further signs pneumonia or other Gram negative infection -bcx 04/28 neg, legionlla neg - source of sepsis likely urine as UA: +leuk esterase, + wbc - ct scan chest/abd/pelvis (04/25) : L upper air filled cavity in L upper chest , R upper fluid structure(possible abscess) - unchanged from 04/01, bilateral femoral head avascular necrosis, no prior CT abd/pelvis to compare. MRSA Bacteremia with suspicion of endocarditis, last admission - LUBNA completed (04/27) - LVEF 60-65%, moderate mitral valve prolapse, severe mitral regurgitation, mild tricuspid regurg, mild aortic regurg, mild aortic sclerosis, no vegetation - MRSA bacteremia-day #31 MRSA treatment plan total 42 days - antibiotics as per ID: vancomycin started (04/27) Heme Acute blood loss, normocytic anemia, likely 2/2 epistaxis, required 2pRBC - Tranfusion goal of Hb > 8 - Hold Eliquis - nasal packing removed (04/27) w/o complications - ENT following (Dr. Clarke) - keep head end elevated Thrombocytopenia, baseline around 130-140 and since 03/02/18 has been decreasing to 80s, likely 2/2 sepsis and antibiotics - platelets 65--> 62-->70--> 57-->63 --> 78--> 81...109 - Heme consulted, following case, thrombocytopenia thought to be 2/2 MRSA bacteremia Epistaxis from the L nares (resolved) - L nasal packing done in ED, ENT consulted ENT recommends nasal packing until Thursday - nasal packing removed (04/27) w/o complications - nasal saline spray bid, observe for bleeding Cardiac Diastolic LV dysfunc, CHF, phx MO, CAD, Afib w/ RVR - Last ECHO (03/31/18) - normal EF, L ventricular function normal, severe MR, moderate TR - Tele monitoring - Continue lipitor - Trop: neg - cardizem gtt, lopressor IVP, cardizem 30mg TID - Cardiology following HTN - hypotensive 2/2 septic shock - will hold home medications, valsartan Afib - on Eliquis at home - lovenox 60 BID - [id number] score of 3 - if recurrent arrythmia consider antiarrhythmics/amiodarone Pulm COPD, uses 3L home oxygen continue 3L of oxygen, patient extubated yesterday, comfortable on NIPPV -will wean to high flow NC, if he cannot tolerate -> place back on NIPPV - Low threshold for re-intubation - CXR daily - Ipratroprium neb -taper steroids - CXR: RUL fluid collection (possible abscess), LINDSEY air collection unchanged from 04/01/18 - Per ID: plan for biopsy/drainage of RUL collection when extubated Ortho Bilateral femoral head avascular necrosis - Ortho following case, Dr. Baez - No orthopedic intervention 2/ medical status F/E/N - NS @ 75ml/hr - Advance diet as tolerated - Electrolytes trend - Diabetic diet - sher cath PPX DVT: lovenox 60 BID GI: pepcid BID Lines, Tubes: sher, PIV Code Status: full code Dispo: Continue ICU monitoring. - Low threshold for re-intubation Visit type - Emergency Visit Emergency Visit: Yes ED Registration Date: 04/23/18 Care time: The patient presented to the Emergency Department on the above date and was hospitalized for further evaluation of their emergent condition. - New Patient This patient is new to me today: Yes Date on this admission: 04/30/18 - Critical Care Critical Care patient: Yes Total Critical Care Time (in minutes): 40 Critical Care Statement: The care of this patient involved high complexity decision making to prevent further life threatening deterioration of the patient 's condition and/or to evaluate & treat vital organ system(s) failure or risk of failure.
[2018-04-30] MEDS: DILTIAZEM INJECTION 125 MG in SODIUM CHLORIDE 100 ML IVPB SCH (17:43)
[2018-04-30] MEDS: CHLORHEXIDINE GLUCONATE 4% CLEANSER FOR DECOLONIZATION TP SCH (21:53)
[2018-05-01] MEDS ORDERED: LORazepam 2 MG/ML SDV VIAL IVPUSH ONE (00:30)
[2018-05-01] MEDS ORDERED: HEMOQUE CONTROL SOLUTION ONE (01:42)
[2018-05-01 06:01] LABS: BASO % 0.3 % (0-2.0); HEMATOCRIT 29.4 % (35.4-49); HEMOGLOBIN 9.4 GM/dL (11.7-16.9); LYMPH % 1.2 % (8-40); MCH 29.9 pg (25.7-33.7); MCHC 31.9 g/dl (32.0-35.9); MEAN CELL VOLUME 93.8 fl (80-96); MEAN PLT VOLUME 9.1 fl (7.5-11.1); MONO % 2.6 % (3.8-10.2); NEUT % 95.9 % (42.8-82.8); PLATELET COUNT 94 K/MM3 (134-434); RBC 3.14 M/mm3 (4.00-5.60); RDW 16.5 % (11.9-15.9); WHITE BLOOD COUNT 6.2 K/mm3 (4.0-10.0)
[2018-05-01 06:45] LABS: ALBUMIN 2.2 g/dl (3.4-5.0); ALK PHOS 69 U/L (45-117); ANION GAP 6 MMOL/L (8-16); BILIRUBIN,TOTAL 0.5 mg/dL (0.2-1); BLOOD UREA NITROGEN 17 mg/dL (7-18); CALCIUM 7.6 mg/dL (8.5-10.1); CHLORIDE 102 mmol/L (98-107); CO2 36 mmol/L (21-32); CREATININE 0.3 mg/dL (0.55-1.3); GLUCOSE,RANDOM 158 mg/dL (74-106); MAGNESIUM 2.3 mg/dL (1.8-2.4); PHOSPHOROUS 2.4 mg/dL (2.5-4.9); POTASSIUM 3.9 mmol/L (3.5-5.1); SGOT/AST 16 U/L (15-37); SGPT/ALT 33 U/L (13-61); SODIUM 144 mmol/L (136-145); TOT PROT 4.9 g/dl (6.4-8.2)
[2018-05-01] MEDS: dilTIAZem HCL 30 MG TABLET (FP) PO SCH ×3 (06:48→21:02)
[2018-05-01] MEDS: INSULIN SLIDING SCALE (NOVOLOG) 1 VIAL SQ SCH ×4 (06:48→21:03)
[2018-05-01 07:05] LABS: ARTERIAL BLOOD GAS BASE EXCESS 11.5 meq/l (-2-2); ARTERIAL BLOOD GAS pH 7.38 (7.35-7.45)
[2018-05-01 07:19] LABS: ALLENS TEST POSITIVE
[2018-05-01 07:23] LABS: ARTERIAL BLOOD GAS PCO2 65.2 mmHg (35-45)
--- NOTE | 2018-05-01 08:17 | PN ---
Progress Note, Physician Chief Complaint: ASLEEP ON BIPAP - Current Medication List Current Medications: Active Medications Acetaminophen (Tylenol -) 650 mg PO Q6H PRN PRN Reason: FEVER Amino Acids (Prosource No Carb Liquid Pkt) 30 ml PO DAILY [facility] Last Admin: 04/30/18 09:19 Dose: Not Given Chlorhexidine Gluconate (Hibiclens For Decolonization -) 1 applic TP HS [facility] Last Admin: 04/30/18 21:53 Dose: 1 applic Chlorhexidine Gluconate (Peridex -) 15 ml MM BID [facility] Last Admin: 04/30/18 21:54 Dose: Not Given Diltiazem HCl (Cardizem -) 30 mg PO TID [facility] Last Admin: 05/01/18 06:48 Dose: Not Given Enoxaparin Sodium (Lovenox -) 60 mg SQ BID [facility] Last Admin: 04/30/18 21:53 Dose: 60 mg Famotidine/Sodium Chloride (Pepcid 20 Mg Premixed Ivpb -) 20 mg in 50 mls @ 100 mls/hr IVPB BID [facility] Last Admin: 04/30/18 21:53 Dose: 100 mls/hr Vancomycin HCl (Vancomycin (Pre-Docked)) 1,000 mg in 250 mls @ 166.667 mls/hr IVPB BID [facility]; Protocol Last Admin: 04/30/18 21:53 Dose: 166.667 mls/hr Diltiazem HCl 125 mg/ Sodium (Chloride) 125 mls @ 5 mls/hr IVPB TITR [facility]; Protocol Last Titration: 05/01/18 06:00 Dose: 10 mg/hr, 10 mls/hr Insulin Aspart (Novolog Vial Sliding Scale -) 1 vial SQ ACHS [facility]; Protocol Last Admin: 05/01/18 06:48 Dose: Not Given Ipratropium [place] (Atrovent 0.02% Nebulizer -) 1 amp NEB RQID [facility] Last Admin: 04/30/18 20:50 Dose: 1 amp Methylprednisolone Sodium Succinate (Solu-Medrol -) 40 mg IVPUSH BID [facility] Last Admin: 04/30/18 21:54 Dose: 40 mg Metoprolol Tartrate (Lopressor Injection -) 5 mg IVPUSH Q4H PRN PRN Reason: TACHYCARDIA Last Admin: 04/29/18 12:11 Dose: 5 mg Sodium Chloride ([place] Nasal [place] -) 2 spray NS BID PRN PRN Reason: NASAL CONGESTION - Objective Vital Signs: Vital Signs Temperature 97.5 F L 05/01/18 06:00 Pulse Rate 68 05/01/18 06:25 Respiratory Rate 16 05/01/18 06:00 Blood Pressure 101/61 05/01/18 06:00 O2 Sat by Pulse Oximetry (%) 100 05/01/18 06:25 Constitutional: Yes: Mild Distress Eyes: Yes: WNL HENT: Yes: WNL Neck: Yes: WNL Cardiovascular: Yes: Regular Rate and Rhythm Respiratory: Yes: Diminished, On BiPap Gastrointestinal: Yes: Soft Genitourinary: Yes: Incontinence Musculoskeletal: Yes: Muscle Weakness Edema: No Integumentary: Yes: WNL Wound/Incision: No: Clean/Dry Neurological: Yes: Pre-Existing Deficit ...Motor Strength: WNL Psychiatric: Yes: WNL Labs: CBC, BMP 05/01/18 05:30 05/01/18 05:30 INR, PTT INR 1.14 (0.83-1.09) H 04/27/18 08:31 Problem List - Problems (1) Afib Code(s): I48.91 - UNSPECIFIED ATRIAL FIBRILLATION (2) Fever Code(s): R50.9 - FEVER, UNSPECIFIED (3) Hypotension Code(s): I95.9 - HYPOTENSION, UNSPECIFIED Qualifiers: Hypotension type: other hypotension type Qualified Code(s): I95.89 - Other hypotension (4) MRSA bacteremia Code(s): R78.81 - BACTEREMIA (5) Tachycardia Code(s): R00.0 - TACHYCARDIA, UNSPECIFIED (6) Acute and chronic respiratory failure Code(s): J96.20 - ACUTE AND CHR RESP FAILURE, UNSP W HYPOXIA OR HYPERCAPNIA Qualifiers: Respiratory failure complication: hypoxia and hypercapnia Qualified Code(s) : J96.21 - Acute and chronic respiratory failure with hypoxia; J96.22 - Acute and chronic respiratory failure with hypercapnia (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
--- NOTE | 2018-05-01 08:28 | PN ---
Progress Note (short form) - Note Progress Note: extubated on bipap at night alert no complaints Vital Signs Period Temp Pulse Resp BP Sys/Morgan Pulse Ox Last 24 Hr 93.2 F-97.8 F 56-156 16-22 101-144/54-79 96-100 cor-rrr lungs clear abd soft, nt ext no edema CBC, BMP 05/01/18 05:30 05/01/18 05:30 Microbiology 04/23/18 11:30 Blood - Peripheral Venous Blood Culture - Preliminary Pending Organism 04/28/18 12:27 Blood - Peripheral Venous Blood Culture - Preliminary NO GROWTH OBTAINED AFTER 48 HOURS, INCUBATION TO CONTINUE FOR 3 DAYS. 04/28/18 12:46 Blood - Peripheral Venous Blood Culture - Preliminary NO GROWTH OBTAINED AFTER 48 HOURS, INCUBATION TO CONTINUE FOR 3 DAYS. 04/23/18 12:52 Blood - Peripheral Venous Blood Culture - Final NO GROWTH AFTER 5 DAYS INCUBATION 04/24/18 18:00 Sputum - Endotrachea Suction/Ventilator Gram Stain - Final 04/24/18 18:00 Sputum - Endotrachea Suction/Ventilator Sputum Culture - Final Enterobacter Aerogenes 04/26/18 10:00 Urine - Urine Bowling Legionella Antigen - Final 04/26/18 10:00 Urine - Urine Bowling Streptococcus pneumoniae Antigen (M - Final 04/23/18 13:00 Urine - Urine Clean Catch Urine Culture - Final NO GROWTH OBTAINED moderate to severe MR on LUBNA- no vegetation Microbiology 04/28/18 12:27 Blood - Peripheral Venous Blood Culture - Preliminary NO GROWTH OBTAINED AFTER 24 HOURS, INCUBATION TO CONTINUE FOR 4 DAYS. 04/28/18 12:46 Blood - Peripheral Venous Blood Culture - Preliminary NO GROWTH OBTAINED AFTER 24 HOURS, INCUBATION TO CONTINUE FOR 4 DAYS. 04/23/18 12:52 Blood - Peripheral Venous Blood Culture - Final NO GROWTH AFTER 5 DAYS INCUBATION 04/23/18 11:30 Blood - Peripheral Venous Blood Culture - Preliminary Pending Organism-NO GROWTH 04/24/18 18:00 Sputum - Endotrachea Suction/Ventilator Gram Stain - Final 04/24/18 18:00 Sputum - Endotrachea Suction/Ventilator Sputum Culture - Final Enterobacter Aerogenes 04/26/18 10:00 Urine - Urine Bowling Legionella Antigen - Final 04/26/18 10:00 Urine - Urine Bowling Streptococcus pneumoniae Antigen (M - Final 04/23/18 13:00 Urine - Urine Clean Catch Urine Culture - Final NO GROWTH OBTAINED Current Medications Acetaminophen (Tylenol -) 650 mg PO Q6H PRN PRN Reason: FEVER Amino Acids (Prosource No Carb Liquid Pkt) 30 ml PO DAILY [facility] Last Admin: 04/30/18 09:19 Dose: Not Given Chlorhexidine Gluconate (Hibiclens For Decolonization -) 1 applic TP HS [facility] Last Admin: 04/29/18 21:07 Dose: Not Given Chlorhexidine Gluconate (Peridex -) 15 ml MM BID [facility] Last Admin: 04/30/18 09:18 Dose: Not Given Diltiazem HCl (Cardizem -) 30 mg PO TID [facility] Last Admin: 04/30/18 06:12 Dose: Not Given Enoxaparin Sodium (Lovenox -) 60 mg SQ BID [facility] Last Admin: 04/30/18 09:18 Dose: 60 mg Famotidine/Sodium Chloride (Pepcid 20 Mg Premixed Ivpb -) 20 mg in 50 mls @ 100 mls/hr IVPB BID [facility] Last Admin: 04/30/18 09:18 Dose: 100 mls/hr Vancomycin HCl (Vancomycin (Pre-Docked)) 1,000 mg in 250 mls @ 166.667 mls/hr IVPB BID [facility]; Protocol Last Admin: 04/30/18 09:18 Dose: 166.667 mls/hr Diltiazem HCl 125 mg/ Sodium (Chloride) 125 mls @ 5 mls/hr IVPB TITR [facility]; Protocol Last Titration: 04/30/18 08:00 Dose: 5 mg/hr, 5 mls/hr Potassium Phosphate 30 mm/ (Sodium Chloride) 260 mls @ 43.333 mls/hr IVPB ONCE ONE Stop: 04/30/18 15:01 Insulin Aspart (Novolog Vial Sliding Scale -) 1 vial SQ ACHS [facility]; Protocol Last Admin: 04/30/18 06:56 Dose: Not Given Ipratropium [place] (Atrovent 0.02% Nebulizer -) 1 amp NEB RQID [facility] Last Admin: 04/30/18 07:46 Dose: 1 amp Methylprednisolone Sodium Succinate (Solu-Medrol -) 40 mg IVPUSH Q8H-IV [facility] Last Admin: 04/30/18 09:18 Dose: 40 mg Metoprolol Tartrate (Lopressor Injection -) 5 mg IVPUSH Q4H PRN PRN Reason: TACHYCARDIA Last Admin: 04/29/18 12:11 Dose: 5 mg Sodium Chloride ([place] Nasal [place] -) 2 spray NS BID PRN PRN Reason: NASAL CONGESTION vanco trough 14.6 a/p FUO respiratory failure-now extubated MRSA bacteremia-day #33 MRSA treatment plan total 42 days LUBNA no vegetations-severe mitral regurgitation thrombocytopenia-platelets are recovering endstage COPD afib with RVR continue vancomycin no signs pneumonia or other Gram negative infection WBC tagged study-d/w radiology- will not be possible or aid in evaluating the RUL collection plan for biopsy/drainage RUL collection when extubated Problem List - Problems (1) Sepsis Code(s): A41.9 - SEPSIS, UNSPECIFIED ORGANISM (2) Epistaxis, recurrent Code(s): R04.0 - EPISTAXIS (3) MRSA bacteremia Code(s): R78.81 - BACTEREMIA
[2018-05-01] MEDS: IPRATROPIUM BR 0.02% 0.5 MG/2.5 ML VIAL.NEB. NEB SCH ×4 (08:40→20:45)
[2018-05-01] MEDS: VANCOMYCIN 1 GRAM (PRE-DOCKED) 1,000 MG/250 ML BAG IVPB SCH ×2 (09:22→21:13)
[2018-05-01] MEDS: FAMOTIDINE 20 MG/50 ML IVPB 20 MG/50 ML MG IVPB SCH ×2 (09:22→21:13)
[2018-05-01] MEDS: ENOXAPARIN NA (PORCINE) 60 MG/0.6 ML DISP.SYRIN SQ SCH ×2 (09:22→21:12)
[2018-05-01] MEDS: AMINO ACIDS/PROTEIN HYDROLYS 30 ML LIQUID.PKT PO SCH (09:23)
[2018-05-01] MEDS: CHLORHEXIDINE GLUCONATE 0.12% 15ML CUP MM SCH ×2 (09:23→21:03)
[2018-05-01] MEDS: methylPREDNISolone NA SUCC 40 MG/1 ML VIAL IVPUSH SCH ×2 (09:24→21:13)
--- NOTE | 2018-05-01 11:28 | PN ---
Progress Note (short form) - Note Progress Note: PULM/CCM SUBJECTIVE: Patient seen and examined in the ICU. -tentative off vent, intermittent NIV and ON -counts cont to recover OBJECTIVE: Vital Signs Temp 97.5 F L 05/01/18 10:00 Pulse 55 L 05/01/18 10:40 Resp 15 05/01/18 10:00 BP 122/72 05/01/18 10:40 Pulse Ox 100 05/01/18 08:00 Intake & Output 04/30/18 04/30/18 05/01/18 11:59 23:59 11:59 Intake Total 240 970 115 Output Total 400 850 300 Balance -160 120 -185 Weight 60.6 kg 61.5 kg Intake: IV 240 120 115 Cardizem Injection - 125 240 120 115 mg In Normal Saline - 100 ml @ 5 MG/HR 5 mls/hr IVPB TITR [facility] Rx#: [id number] IVPB 850 0 Output: Urine 400 850 300 Bowling 400 850 300 Other: Voiding Method Indwelling Catheter Indwelling Catheter Indwelling Catheter Bowel Movement No Yes: smear No Weight Measurement Method [facility] Active Medications Acetaminophen (Tylenol -) 650 mg PO Q6H PRN PRN Reason: FEVER Alprazolam (Xanax -) 0.5 mg PO ONCE ONE Stop: 05/01/18 11:31 Last Admin: 05/01/18 11:26 Dose: 0.5 mg Amino Acids (Prosource No Carb Liquid Pkt) 30 ml PO DAILY [facility] Last Admin: 05/01/18 09:23 Dose: Not Given Chlorhexidine Gluconate (Hibiclens For Decolonization -) 1 applic TP HS [facility] Last Admin: 04/30/18 21:53 Dose: 1 applic Chlorhexidine Gluconate (Peridex -) 15 ml MM BID [facility] Last Admin: 05/01/18 09:23 Dose: Not Given Diltiazem HCl (Cardizem -) 30 mg PO TID [facility] Last Admin: 05/01/18 06:48 Dose: Not Given Enoxaparin Sodium (Lovenox -) 60 mg SQ BID [facility] Last Admin: 05/01/18 09:22 Dose: 60 mg Famotidine/Sodium Chloride (Pepcid 20 Mg Premixed Ivpb -) 20 mg in 50 mls @ 100 mls/hr IVPB BID [facility] Last Admin: 05/01/18 09:22 Dose: 100 mls/hr Vancomycin HCl (Vancomycin (Pre-Docked)) 1,000 mg in 250 mls @ 166.667 mls/hr IVPB BID [facility]; Protocol Last Admin: 05/01/18 09:22 Dose: 166.667 mls/hr Diltiazem HCl 125 mg/ Sodium (Chloride) 125 mls @ 5 mls/hr IVPB TITR [facility]; Protocol Last Titration: 05/01/18 10:44 Dose: 2 mg/hr, 2 mls/hr Insulin Aspart (Novolog Vial Sliding Scale -) 1 vial SQ ACHS [facility]; Protocol Last Admin: 05/01/18 06:48 Dose: Not Given Ipratropium [place] (Atrovent 0.02% Nebulizer -) 1 amp NEB RQID [facility] Last Admin: 04/30/18 20:50 Dose: 1 amp Methylprednisolone Sodium Succinate (Solu-Medrol -) 40 mg IVPUSH BID [facility] Last Admin: 05/01/18 09:24 Dose: 40 mg Metoprolol Tartrate (Lopressor Injection -) 5 mg IVPUSH Q4H PRN PRN Reason: TACHYCARDIA Last Admin: 04/29/18 12:11 Dose: 5 mg Sodium Chloride ([place] -) 2 spray NS BID PRN PRN Reason: NASAL CONGESTION Gen: awake, mildly dyspneic on HFNC Heart: tachycardic, irregular Lung: scattered rhonchi, + cough Abd: soft, nontender Ext: no edema Neuro: intact, follows commands Laboratory Results - last 24 hr 04/24/18 04/24/18 04/25/18 11:33 16:25 10:35 WBC RBC Hgb Hct MCV MCH MCHC RDW Plt Count MPV Absolute Neuts (auto) Neutrophils % Neutrophils % (Manual) Band Neutrophils % Lymphocytes % Lymphocytes % (Manual) Monocytes % Monocytes % (Manual) Eosinophils % Eosinophils % (Manual) Basophils % Basophils % (Manual) Myelocytes % (Man) Promyelocytes % (Man) Blast Cells % (Manual) Nucleated RBC % Metamyelocytes Hypochromia Platelet Estimate Polychromasia Poikilocytosis Anisocytosis Microcytosis Macrocytosis Anticoagulation Therapy Puncture Site ABG pH ABG pCO2 at Pt Temp ABG pO2 at Pt Temp ABG HCO3 ABG O2 Sat (Measured) ABG O2 Content ABG Base Excess Pardeep Test O2 Delivery Device Oxygen Flow Rate Vent Mode Vent Rate Mechanical Rate Pressure Support Vent Sodium Potassium Chloride Carbon Dioxide Anion Gap BUN Creatinine Creat Clearance w eGFR POC Glucometer 171.64727 185.31904 170.59834 Random Glucose Calcium Phosphorus Magnesium Total Bilirubin AST ALT Alkaline Phosphatase Total Protein Albumin 04/25/18 04/26/18 04/26/18 15:52 17:33 21:24 WBC RBC Hgb Hct MCV MCH MCHC RDW Plt Count MPV Absolute Neuts (auto) Neutrophils % Neutrophils % (Manual) Band Neutrophils % Lymphocytes % Lymphocytes % (Manual) Monocytes % Monocytes % (Manual) Eosinophils % Eosinophils % (Manual) Basophils % Basophils % (Manual) Myelocytes % (Man) Promyelocytes % (Man) Blast Cells % (Manual) Nucleated RBC % Metamyelocytes Hypochromia Platelet Estimate Polychromasia Poikilocytosis Anisocytosis Microcytosis Macrocytosis Anticoagulation Therapy Puncture Site ABG pH ABG pCO2 at Pt Temp ABG pO2 at Pt Temp ABG HCO3 ABG O2 Sat (Measured) ABG O2 Content ABG Base Excess [place]ardeep Test O2 Delivery Device Oxygen Flow Rate Vent Mode Vent Rate Mechanical Rate Pressure Support Vent Sodium Potassium Chloride Carbon Dioxide Anion Gap BUN Creatinine Creat Clearance w eGFR POC Glucometer 129.99886 113.20945 105.58392 Random Glucose Calcium Phosphorus Magnesium Total Bilirubin AST ALT Alkaline Phosphatase Total Protein Albumin 04/27/18 04/27/18 04/27/18 06:12 13:00 17:18 WBC RBC Hgb Hct MCV MCH MCHC RDW Plt Count MPV Absolute Neuts (auto) Neutrophils % Neutrophils % (Manual) Band Neutrophils % Lymphocytes % Lymphocytes % (Manual) Monocytes % Monocytes % (Manual) Eosinophils % Eosinophils % (Manual) Basophils % Basophils % (Manual) Myelocytes % (Man) Promyelocytes % (Man) Blast Cells % (Manual) Nucleated RBC % Metamyelocytes Hypochromia Platelet Estimate Polychromasia Poikilocytosis Anisocytosis Microcytosis Macrocytosis Anticoagulation Therapy Puncture Site ABG pH ABG pCO2 at Pt Temp ABG pO2 at Pt Temp ABG HCO3 ABG O2 Sat (Measured) ABG O2 Content ABG Base Excess [place]ardeep Test O2 Delivery Device Oxygen Flow Rate Vent Mode Vent Rate Mechanical Rate Pressure Support Vent Sodium Potassium Chloride Carbon Dioxide Anion Gap BUN Creatinine Creat Clearance w eGFR POC Glucometer 117.33811 138.60278 124.78379 Random Glucose Calcium Phosphorus Magnesium Total Bilirubin AST ALT Alkaline Phosphatase Total Protein Albumin 04/28/18 04/28/18 04/28/18 13:34 18:00 22:01 WBC RBC Hgb Hct MCV MCH MCHC RDW Plt Count MPV Absolute Neuts (auto) Neutrophils % Neutrophils % (Manual) Band Neutrophils % Lymphocytes % Lymphocytes % (Manual) Monocytes % Monocytes % (Manual) Eosinophils % Eosinophils % (Manual) Basophils % Basophils % (Manual) Myelocytes % (Man) Promyelocytes % (Man) Blast Cells % (Manual) Nucleated RBC % Metamyelocytes Hypochromia Platelet Estimate Polychromasia Poikilocytosis Anisocytosis Microcytosis Macrocytosis Anticoagulation Therapy Puncture Site ABG pH ABG pCO2 at Pt Temp ABG pO2 at Pt Temp ABG HCO3 ABG O2 Sat (Measured) ABG O2 Content ABG Base Excess [place]ep Test O2 Delivery Device Oxygen Flow Rate Vent Mode Vent Rate Mechanical Rate Pressure Support Vent Sodium Potassium Chloride Carbon Dioxide Anion Gap BUN Creatinine Creat Clearance w eGFR POC Glucometer 154.61498 149.01106 179.12650 Random Glucose Calcium Phosphorus Magnesium Total Bilirubin AST ALT Alkaline Phosphatase Total Protein Albumin 04/29/18 04/29/18 04/29/18 11:22 16:39 21:06 WBC RBC Hgb Hct MCV MCH MCHC RDW Plt Count MPV Absolute Neuts (auto) Neutrophils % Neutrophils % (Manual) Band Neutrophils % Lymphocytes % Lymphocytes % (Manual) Monocytes % Monocytes % (Manual) Eosinophils % Eosinophils % (Manual) Basophils % Basophils % (Manual) Myelocytes % (Man) Promyelocytes % (Man) Blast Cells % (Manual) Nucleated RBC % Metamyelocytes Hypochromia Platelet Estimate Polychromasia Poikilocytosis Anisocytosis Microcytosis Macrocytosis Anticoagulation Therapy Puncture Site ABG pH ABG pCO2 at Pt Temp ABG pO2 at Pt Temp ABG HCO3 ABG O2 Sat (Measured) ABG O2 Content ABG Base Excess [place] Test O2 Delivery Device Oxygen Flow Rate Vent Mode Vent Rate Mechanical Rate Pressure Support Vent Sodium Potassium Chloride Carbon Dioxide Anion Gap BUN Creatinine Creat Clearance w eGFR POC Glucometer 215.53804 189.92390 94.13706 Random Glucose Calcium Phosphorus Magnesium Total Bilirubin AST ALT Alkaline Phosphatase Total Protein Albumin 04/30/18 04/30/18 04/30/18 05:30 11:49 17:24 WBC RBC Hgb Hct MCV MCH MCHC RDW Plt Count MPV Absolute Neuts (auto) Neutrophils % Neutrophils % (Manual) 91.9 H Band Neutrophils % 7.1 Lymphocytes % Lymphocytes % (Manual) 1.0 L Monocytes % Monocytes % (Manual) 0 L D Eosinophils % Eosinophils % (Manual) 0.0 Basophils % Basophils % (Manual) 0.0 Myelocytes % (Man) 0 Promyelocytes % (Man) 0 Blast Cells % (Manual) 0 Nucleated RBC % 0 Metamyelocytes 0 Hypochromia 0 Platelet Estimate Decreased Polychromasia 3+ Poikilocytosis 0 Anisocytosis 1+ Microcytosis 1+ Macrocytosis 0 Anticoagulation Therapy Puncture Site ABG pH ABG pCO2 at Pt Temp ABG pO2 at Pt Temp ABG HCO3 ABG O2 Sat (Measured) ABG O2 Content ABG Base Excess [place] Test O2 Delivery Device Oxygen Flow Rate Vent Mode Vent Rate Mechanical Rate Pressure Support Vent Sodium Potassium Chloride Carbon Dioxide Anion Gap BUN Creatinine Creat Clearance w eGFR POC Glucometer 176.66114 113.57260 Random Glucose Calcium Phosphorus Magnesium Total Bilirubin AST ALT Alkaline Phosphatase Total Protein Albumin 04/30/18 05/01/18 05/01/18 21:58 05:30 05:30 WBC 6.2 RBC 3.14 L Hgb 9.4 L Hct 29.4 L MCV 93.8 MCH 29.9 MCHC 31.9 L RDW 16.5 H Plt Count 94 L MPV 9.1 Absolute Neuts (auto) 6.0 Neutrophils % 95.9 H Neutrophils % (Manual) Band Neutrophils % Lymphocytes % 1.2 L Lymphocytes % (Manual) Monocytes % 2.6 L Monocytes % (Manual) Eosinophils % 0.0 Eosinophils % (Manual) Basophils % 0.3 Basophils % (Manual) Myelocytes % (Man) Promyelocytes % (Man) Blast Cells % (Manual) Nucleated RBC % 0 Metamyelocytes Hypochromia Platelet Estimate Polychromasia Poikilocytosis Anisocytosis Microcytosis Macrocytosis Anticoagulation Therapy Puncture Site ABG pH ABG pCO2 at Pt Temp ABG pO2 at Pt Temp ABG HCO3 ABG O2 Sat (Measured) ABG O2 Content ABG Base Excess Pardeep Test O2 Delivery Device Oxygen Flow Rate Vent Mode Vent Rate Mechanical Rate Pressure Support Vent Sodium 144 Potassium 3.9 Chloride 102 Carbon Dioxide 36 H Anion Gap 6 L BUN 17 Creatinine 0.3 L Creat Clearance w eGFR > 60 POC Glucometer 123.68846 Random Glucose 158 H Calcium 7.6 L Phosphorus 2.4 L Magnesium 2.3 Total Bilirubin 0.5 AST 16 ALT 33 Alkaline Phosphatase 69 Total Protein 4.9 L Albumin 2.2 L 05/01/18 05/01/18 06:04 06:30 WBC RBC Hgb Hct MCV MCH MCHC RDW Plt Count MPV Absolute Neuts (auto) Neutrophils % Neutrophils % (Manual) Band Neutrophils % Lymphocytes % Lymphocytes % (Manual) Monocytes % Monocytes % (Manual) Eosinophils % Eosinophils % (Manual) Basophils % Basophils % (Manual) Myelocytes % (Man) Promyelocytes % (Man) Blast Cells % (Manual) Nucleated RBC % Metamyelocytes Hypochromia Platelet Estimate Polychromasia Poikilocytosis Anisocytosis Microcytosis Macrocytosis Anticoagulation Therapy No Result Required. Puncture Site Right radial ABG pH 7.38 ABG pCO2 at Pt Temp 65.2 H* ABG pO2 at Pt Temp 133.0 H ABG HCO3 38.0 H ABG O2 Sat (Measured) 99.0 H ABG O2 Content 13.2 L ABG Base Excess 11.5 H Pardeep Test Positive O2 Delivery Device Bipap Oxygen Flow Rate 59% Vent Mode S/t Vent Rate 15 Mechanical Rate No Result Required. Pressure Support Vent 18/5 Sodium Potassium Chloride Carbon Dioxide Anion Gap BUN Creatinine Creat Clearance w eGFR POC Glucometer 129 Random Glucose Calcium Phosphorus Magnesium Total Bilirubin AST ALT Alkaline Phosphatase Total Protein Albumin ASSESSMENT AND PLAN: Acute on Chronic Hypoxic and Hypercapneic Respiratory Failure UTI Septic Shock Lactic Acidosis Epistaxis Acute on Chronic Diastolic Heart Failure Severe Mitral Regurgitation Thrombocytopenia CAD COPD Pulmonary HTN Paroxysmal Atrial Fibrillation HTN Hypercholesterolemia Endocarditis ruled out - Trial of HFOT: if he cannot tolerate -> place back on NIPPV - ABX per ID (long course of MRSA treatment ongoing) - AC - rate control with cardizem gtt, lopressor IVP, transition to PO as tolerated - Wean medrol - inhaled bronchodilators - O2 to keep SpO2 >90% - DVT/GI prophylaxis - continue ICU monitoring for tenuous respiratory status - Low threshold for re-intubation Nani ACNP [id number] 35min CCT
[2018-05-01] MEDS ORDERED: ALPRAZolam 0.25 MG TABLET PO ONE (11:30)
[2018-05-01 12:01] LABS: ANISOCYTOSIS 1+; MACROCYTOSIS 1+; PLATELET ESTIMATE DECREASED
--- NOTE | 2018-05-01 12:31 | PN ---
Progress Note, Physician Chief Complaint: Events noted Currently extubated and on CPAP History of Present Illness: Patient was seen and examined in ICU. Awake and alert. Chart was reviewed Spoke with by bedside Tolerating current therapy LUBNA result again discussed AF with RVR - Current Medication List Current Medications: Active Medications Acetaminophen (Tylenol -) 650 mg PO Q6H PRN PRN Reason: FEVER Amino Acids (Prosource No Carb Liquid Pkt) 30 ml PO DAILY [facility] Last Admin: 05/01/18 09:23 Dose: Not Given Chlorhexidine Gluconate (Hibiclens For Decolonization -) 1 applic TP HS [facility] Last Admin: 04/30/18 21:53 Dose: 1 applic Chlorhexidine Gluconate (Peridex -) 15 ml MM BID [facility] Last Admin: 05/01/18 09:23 Dose: Not Given Diltiazem HCl (Cardizem -) 30 mg PO TID [facility] Last Admin: 05/01/18 06:48 Dose: Not Given Enoxaparin Sodium (Lovenox -) 60 mg SQ BID [facility] Last Admin: 05/01/18 09:22 Dose: 60 mg Famotidine/Sodium Chloride (Pepcid 20 Mg Premixed Ivpb -) 20 mg in 50 mls @ 100 mls/hr IVPB BID [facility] Last Admin: 05/01/18 09:22 Dose: 100 mls/hr Vancomycin HCl (Vancomycin (Pre-Docked)) 1,000 mg in 250 mls @ 166.667 mls/hr IVPB BID [facility]; Protocol Last Admin: 05/01/18 09:22 Dose: 166.667 mls/hr Diltiazem HCl 125 mg/ Sodium (Chloride) 125 mls @ 5 mls/hr IVPB TITR [facility]; Protocol Last Titration: 05/01/18 11:33 Dose: 10 mg/hr, 10 mls/hr Insulin Aspart (Novolog Vial Sliding Scale -) 1 vial SQ ACHS [facility]; Protocol Last Admin: 05/01/18 11:34 Dose: 2 units Ipratropium [place] (Atrovent 0.02% Nebulizer -) 1 amp NEB RQID [facility] Last Admin: 05/01/18 11:00 Dose: 1 amp Methylprednisolone Sodium Succinate (Solu-Medrol -) 40 mg IVPUSH BID [facility] Last Admin: 05/01/18 09:24 Dose: 40 mg Metoprolol Tartrate (Lopressor Injection -) 5 mg IVPUSH Q4H PRN PRN Reason: TACHYCARDIA Last Admin: 04/29/18 12:11 Dose: 5 mg Sodium Chloride ([place] Nasal [place] -) 2 spray NS BID PRN PRN Reason: NASAL CONGESTION - Objective Vital Signs: Vital Signs Temperature 97.5 F L 05/01/18 10:00 Pulse Rate 115 H 05/01/18 12:00 Respiratory Rate 20 05/01/18 12:00 Blood Pressure 119/96 05/01/18 12:00 O2 Sat by Pulse Oximetry (%) 99 05/01/18 11:00 HENT: Yes: Atraumatic Neck: Yes: Supple Cardiovascular: Yes: Tachycardia, Pulse Irregular, S1, S2 Respiratory: Yes: Diminished, On BiPap, Rhonchi Gastrointestinal: Yes: Normal Bowel Sounds, Soft. No: Tenderness Edema: No Labs: CBC, BMP 05/01/18 05:30 05/01/18 05:30 Problem List - Problems (1) MRSA bacteremia Code(s): R78.81 - BACTEREMIA (2) Mitral valve anterior leaflet prolapse Code(s): I34.1 - NONRHEUMATIC MITRAL (VALVE) PROLAPSE (3) Moderate to severe mitral regurgitation Code(s): I34.0 - NONRHEUMATIC MITRAL (VALVE) INSUFFICIENCY (4) Acute and chronic respiratory failure Code(s): J96.20 - ACUTE AND CHR RESP FAILURE, UNSP W HYPOXIA OR HYPERCAPNIA Qualifiers: Respiratory failure complication: hypoxia and hypercapnia Qualified Code(s) : J96.21 - Acute and chronic respiratory failure with hypoxia; J96.22 - Acute and chronic respiratory failure with hypercapnia (5) Acute and chronic respiratory failure with hypercapnia Code(s): J96.22 - ACUTE AND CHRONIC RESPIRATORY FAILURE WITH HYPERCAPNIA (6) Arteriosclerotic heart disease (ASHD) Code(s): I25.10 - ATHSCL HEART DISEASE OF [place] CORONARY ARTERY W/O ANG PCTRS (7) CHF (congestive heart failure) Code(s): I50.9 - HEART FAILURE, UNSPECIFIED (8) COPD (chronic obstructive pulmonary disease) Code(s): J44.9 - CHRONIC OBSTRUCTIVE PULMONARY DISEASE, UNSPECIFIED Qualifiers: COPD type: unspecified COPD Qualified Code(s): J44.9 - Chronic obstructive pulmonary disease, unspecified (9) Diastolic dysfunction Code(s): I51.9 - HEART DISEASE, UNSPECIFIED (10) Elevated troponin Code(s): R74.8 - ABNORMAL LEVELS OF OTHER SERUM ENZYMES (11) Hyperlipidemia Code(s): E78.5 - HYPERLIPIDEMIA, UNSPECIFIED Qualifiers: Hyperlipidemia type: pure hypercholesterolemia Qualified Code(s): E78.00 - Pure hypercholesterolemia, unspecified; E78.0 - Pure hypercholesterolemia (12) MRSA (methicillin resistant Staphylococcus aureus) colonization Code(s): Z22.322 - CARRIER OR SUSPECTED CARRIER OF METHICILLIN RESIS STAPH (13) Paroxysmal atrial fibrillation with rapid ventricular response Code(s): I48.0 - PAROXYSMAL ATRIAL FIBRILLATION (14) Sepsis Code(s): A41.9 - SEPSIS, UNSPECIFIED ORGANISM Assessment/Plan 1. Acute on Chronic Hypoxic and Hypercapneic Respiratory Failure 2. Acute on chronic class II-III NYHA classification LV diastolic failure referable to underlying posterior directed mod-severe MR due to anterior MV prolapse 3. 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 Sepsis syndrome, history of MRSA bacteremia of unclear source, with splenic infarct 5. Advanced chronic obstructive pulmonary disease on home oxygen therapy with Pulmonary HTN 6. Epistaxis, prior history requiring intervention, nasal packing in situ 7. Anemia related to above and in addition thrombocytopenia 8. Paroxysmal atrial fibrillation with [id number] score of 2 9. HTN 10. 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 UTI PLAN: 1. Continue Cardizem drip and IV Lopressor prn for rate-control, hemodynamics permitting. Once rate better would switch and titrate PO Cardizem 2. Resume Diovan when feasible 3. Lovenox 4. As outlined in prior notes if recurrent arrhythmia may consider antiarrhythmics/Amiodarone 5. Resume Lipitor 10 mg QHS when feasible 6. Monitor Hg and transfuse as needed to maintain Hg equal or > 8.0 7. Bronchodilator, IV steroids, antibiotics course as per ID service 8. Further evaluation for MVP and MR to be decided but can be pursued as outpatient Guarded Toni Mares MD
[2018-05-01] MEDS: DILTIAZEM INJECTION 125 MG in SODIUM CHLORIDE 100 ML IVPB SCH (16:13)
[2018-05-01] MEDS: CHLORHEXIDINE GLUCONATE 4% CLEANSER FOR DECOLONIZATION TP SCH (21:02)
[2018-05-02 06:08] LABS: HEMATOCRIT 30.3 % (35.4-49); HEMOGLOBIN 9.7 GM/dL (11.7-16.9); MCH 29.9 pg (25.7-33.7); MCHC 31.9 g/dl (32.0-35.9); MEAN CELL VOLUME 93.8 fl (80-96); MEAN PLT VOLUME 9.3 fl (7.5-11.1); PLATELET COUNT 91 K/MM3 (134-434); RBC 3.23 M/mm3 (4.00-5.60); WHITE BLOOD COUNT 5.6 K/mm3 (4.0-10.0)
[2018-05-02] MEDS: dilTIAZem HCL 30 MG TABLET (FP) PO SCH ×3 (06:13→21:04)
[2018-05-02] MEDS: INSULIN SLIDING SCALE (NOVOLOG) 1 VIAL SQ SCH ×4 (06:13→21:05)
[2018-05-02 06:39] LABS: ALBUMIN 2.1 g/dl (3.4-5.0); ALK PHOS 66 U/L (45-117); ANION GAP 6 MMOL/L (8-16); BILIRUBIN,TOTAL 0.5 mg/dL (0.2-1); BLOOD UREA NITROGEN 17 mg/dL (7-18); CALCIUM 7.9 mg/dL (8.5-10.1); CHLORIDE 100 mmol/L (98-107); CO2 40 mmol/L (21-32); CREATININE 0.2 mg/dL (0.55-1.3); GLUCOSE,RANDOM 132 mg/dL (74-106); MAGNESIUM 2.4 mg/dL (1.8-2.4); POTASSIUM 3.5 mmol/L (3.5-5.1); SGOT/AST 14 U/L (15-37); SGPT/ALT 29 U/L (13-61); SODIUM 146 mmol/L (136-145); TOT PROT 4.7 g/dl (6.4-8.2)
[2018-05-02] MEDS: IPRATROPIUM BR 0.02% 0.5 MG/2.5 ML VIAL.NEB. NEB SCH ×4 (08:35→20:36)
[2018-05-02] MEDS: ENOXAPARIN NA (PORCINE) 60 MG/0.6 ML DISP.SYRIN SQ SCH ×2 (09:45→21:05)
[2018-05-02] MEDS: ALPRAZolam 0.25 MG TABLET PO SCH ×2 (09:47→21:05)
[2018-05-02] MEDS: methylPREDNISolone NA SUCC 40 MG/1 ML VIAL IVPUSH SCH ×2 (09:50→21:04)
[2018-05-02] MEDS: AMINO ACIDS/PROTEIN HYDROLYS 30 ML LIQUID.PKT PO SCH (09:50)
[2018-05-02] MEDS: FAMOTIDINE 20 MG/50 ML IVPB 20 MG/50 ML MG IVPB SCH ×2 (09:50→21:04)
[2018-05-02] MEDS: VANCOMYCIN 1 GRAM (PRE-DOCKED) 1,000 MG/250 ML BAG IVPB SCH ×2 (09:50→21:04)
[2018-05-02] MEDS: NAPH,MB-DB/K PH,MBDB POWDER PACKET PO SCH (09:52)
[2018-05-02] MEDS: CHLORHEXIDINE GLUCONATE 0.12% 15ML CUP MM SCH ×2 (11:51→21:05)
--- NOTE | 2018-05-02 11:57 | PN ---
Progress Note, Physician Chief Complaint: AWAKE ALERT ON NC02 FEELS BETTER HUNGRY - Current Medication List Current Medications: Active Medications Acetaminophen (Tylenol -) 650 mg PO Q6H PRN PRN Reason: FEVER Alprazolam (Xanax -) 0.5 mg PO BID [facility] Last Admin: 05/02/18 09:47 Dose: 0.5 mg Amino Acids (Prosource No Carb Liquid Pkt) 30 ml PO DAILY [facility] Last Admin: 05/02/18 09:50 Dose: 30 ml Chlorhexidine Gluconate (Hibiclens For Decolonization -) 1 applic TP HS [facility] Last Admin: 05/01/18 21:02 Dose: 1 applic Chlorhexidine Gluconate (Peridex -) 15 ml MM BID [facility] Last Admin: 05/02/18 11:51 Dose: Not Given Diltiazem HCl (Cardizem -) 30 mg PO TID [facility] Last Admin: 05/02/18 06:13 Dose: Not Given Enoxaparin Sodium (Lovenox -) 60 mg SQ BID [facility] Last Admin: 05/02/18 09:45 Dose: 60 mg Famotidine/Sodium Chloride (Pepcid 20 Mg Premixed Ivpb -) 20 mg in 50 mls @ 100 mls/hr IVPB BID [facility] Last Admin: 05/02/18 09:50 Dose: 100 mls/hr Vancomycin HCl (Vancomycin (Pre-Docked)) 1,000 mg in 250 mls @ 166.667 mls/hr IVPB BID [facility]; Protocol Last Admin: 05/02/18 09:50 Dose: 166.667 mls/hr Diltiazem HCl 125 mg/ Sodium (Chloride) 125 mls @ 5 mls/hr IVPB TITR [facility]; Protocol Last Admin: 05/01/18 16:13 Dose: 5 mg/hr, 5 mls/hr Insulin Aspart (Novolog Vial Sliding Scale -) 1 vial SQ ACHS [facility]; Protocol Last Admin: 05/02/18 06:13 Dose: Not Given Ipratropium [place] (Atrovent 0.02% Nebulizer -) 1 amp NEB RQID [facility] Last Admin: 05/02/18 11:38 Dose: 1 amp Methylprednisolone Sodium Succinate (Solu-Medrol -) 40 mg IVPUSH BID [facility] Last Admin: 05/02/18 09:50 Dose: 40 mg Metoprolol Tartrate (Lopressor Injection -) 5 mg IVPUSH Q4H PRN PRN Reason: TACHYCARDIA Last Admin: 04/29/18 12:11 Dose: 5 mg Potassium Phos/Sodium Phos (Phos-Nak Packet -) 1 packet PO DAILY [facility] Last Admin: 05/02/18 09:52 Dose: 1 packet Sodium Chloride ([place] Nasal [place] -) 2 spray NS BID PRN PRN Reason: NASAL CONGESTION - Objective Vital Signs: Vital Signs Temperature 97.8 F 05/02/18 08:00 Pulse Rate 118 H 05/02/18 08:00 Respiratory Rate 16 05/02/18 08:00 Blood Pressure 135/71 05/02/18 08:00 O2 Sat by Pulse Oximetry (%) 99 05/02/18 11:37 Constitutional: Yes: Mild Distress Eyes: Yes: WNL HENT: Yes: WNL, Other Cardiovascular: Yes: Regular Rate and Rhythm Respiratory: Yes: Diminished, On Nasal O2 Gastrointestinal: Yes: Soft Genitourinary: Yes: Other Musculoskeletal: Yes: Muscle Weakness Extremities: Yes: WNL Edema: No Peripheral Pulses WNL: Yes Integumentary: Yes: WNL Wound/Incision: Yes: Clean/Dry Neurological: Yes: WNL ...Motor Strength: WNL Psychiatric: Yes: WNL Labs: CBC, BMP 05/02/18 05:30 05/02/18 05:30 INR, PTT INR 1.14 (0.83-1.09) H 04/27/18 08:31 Problem List - Problems (1) Afib Code(s): I48.91 - UNSPECIFIED ATRIAL FIBRILLATION (2) Fever Code(s): R50.9 - FEVER, UNSPECIFIED (3) Hypotension Code(s): I95.9 - HYPOTENSION, UNSPECIFIED Qualifiers: Hypotension type: other hypotension type Qualified Code(s): I95.89 - Other hypotension (4) MRSA bacteremia Code(s): R78.81 - BACTEREMIA (5) Tachycardia Code(s): R00.0 - TACHYCARDIA, UNSPECIFIED (6) Acute and chronic respiratory failure Code(s): J96.20 - ACUTE AND CHR RESP FAILURE, UNSP W HYPOXIA OR HYPERCAPNIA Qualifiers: Respiratory failure complication: hypoxia and hypercapnia Qualified Code(s) : J96.21 - Acute and chronic respiratory failure with hypoxia; J96.22 - Acute and chronic respiratory failure with hypercapnia (7) Anxiety disorder due to general medical condition Code(s): F06.4 - ANXIETY DISORDER DUE TO KNOWN PHYSIOLOGICAL CONDITION Assessment/Plan 02 SUPPORT ON NC CONTINUE TO MONITOR IN ICU XANAX FOR ANXIETY DYSPHAGIA LIQUID DIET DVT PROPHYLAXIS OOB TO CHAIR WITH PT SNF PLACEMENT
--- NOTE | 2018-05-02 12:37 | PN ---
Progress Note, Physician Chief Complaint: Events noted Awake and alert. Monitor reveals sinus rhythm History of Present Illness: Patient was seen and examined in ICU. Awake and alert. Chart was reviewed Tolerating therapy Sinus rhythm has been restored - Current Medication List Current Medications: Active Medications Acetaminophen (Tylenol -) 650 mg PO Q6H PRN PRN Reason: FEVER Alprazolam (Xanax -) 0.5 mg PO BID [facility] Last Admin: 05/02/18 09:47 Dose: 0.5 mg Amino Acids (Prosource No Carb Liquid Pkt) 30 ml PO DAILY [facility] Last Admin: 05/02/18 09:50 Dose: 30 ml Chlorhexidine Gluconate (Hibiclens For Decolonization -) 1 applic TP HS [facility] Last Admin: 05/01/18 21:02 Dose: 1 applic Chlorhexidine Gluconate (Peridex -) 15 ml MM BID [facility] Last Admin: 05/02/18 11:51 Dose: Not Given Diltiazem HCl (Cardizem -) 30 mg PO TID [facility] Last Admin: 05/02/18 06:13 Dose: Not Given Enoxaparin Sodium (Lovenox -) 60 mg SQ BID [facility] Last Admin: 05/02/18 09:45 Dose: 60 mg Famotidine/Sodium Chloride (Pepcid 20 Mg Premixed Ivpb -) 20 mg in 50 mls @ 100 mls/hr IVPB BID [facility] Last Admin: 05/02/18 09:50 Dose: 100 mls/hr Vancomycin HCl (Vancomycin (Pre-Docked)) 1,000 mg in 250 mls @ 166.667 mls/hr IVPB BID [facility]; Protocol Last Admin: 05/02/18 09:50 Dose: 166.667 mls/hr Diltiazem HCl 125 mg/ Sodium (Chloride) 125 mls @ 5 mls/hr IVPB TITR [facility]; Protocol Last Admin: 05/01/18 16:13 Dose: 5 mg/hr, 5 mls/hr Insulin Aspart (Novolog Vial Sliding Scale -) 1 vial SQ ACHS [facility]; Protocol Last Admin: 05/02/18 06:13 Dose: Not Given Ipratropium [place] (Atrovent 0.02% Nebulizer -) 1 amp NEB RQID [facility] Last Admin: 05/02/18 11:38 Dose: 1 amp Methylprednisolone Sodium Succinate (Solu-Medrol -) 40 mg IVPUSH BID [facility] Last Admin: 05/02/18 09:50 Dose: 40 mg Metoprolol Tartrate (Lopressor Injection -) 5 mg IVPUSH Q4H PRN PRN Reason: TACHYCARDIA Last Admin: 04/29/18 12:11 Dose: 5 mg Potassium Phos/Sodium Phos (Phos-Nak Packet -) 1 packet PO DAILY [facility] Last Admin: 05/02/18 09:52 Dose: 1 packet Sodium Chloride ([place] Nasal [place] -) 2 spray NS BID PRN PRN Reason: NASAL CONGESTION - Objective Vital Signs: Vital Signs Temperature 97.8 F 05/02/18 08:00 Pulse Rate 103 H 05/02/18 12:00 Respiratory Rate 21 H 05/02/18 12:00 Blood Pressure 120/67 05/02/18 12:00 O2 Sat by Pulse Oximetry (%) 99 05/02/18 11:37 Neck: Yes: Supple Cardiovascular: Yes: Regular Rate and Rhythm, S1, S2 Respiratory: Yes: Diminished Gastrointestinal: Yes: Normal Bowel Sounds, Soft. No: Tenderness Edema: No Labs: CBC, BMP 05/02/18 05:30 05/02/18 05:30 Problem List - Problems (1) MRSA bacteremia Code(s): R78.81 - BACTEREMIA (2) Mitral valve anterior leaflet prolapse Code(s): I34.1 - NONRHEUMATIC MITRAL (VALVE) PROLAPSE (3) Moderate to severe mitral regurgitation Code(s): I34.0 - NONRHEUMATIC MITRAL (VALVE) INSUFFICIENCY (4) Acute and chronic respiratory failure Code(s): J96.20 - ACUTE AND CHR RESP FAILURE, UNSP W HYPOXIA OR HYPERCAPNIA Qualifiers: Qualified Code(s): J96.21 - Acute and chronic respiratory failure with hypoxia; J96.22 - Acute and chronic respiratory failure with hypercapnia (5) Acute and chronic respiratory failure with hypercapnia Code(s): J96.22 - ACUTE AND CHRONIC RESPIRATORY FAILURE WITH HYPERCAPNIA (6) Arteriosclerotic heart disease (ASHD) Code(s): I25.10 - ATHSCL HEART DISEASE OF [place] CORONARY ARTERY W/O ANG PCTRS (7) CHF (congestive heart failure) Code(s): I50.9 - HEART FAILURE, UNSPECIFIED (8) COPD (chronic obstructive pulmonary disease) Code(s): J44.9 - CHRONIC OBSTRUCTIVE PULMONARY DISEASE, UNSPECIFIED Qualifiers: Qualified Code(s): J44.9 - Chronic obstructive pulmonary disease, unspecified (9) Diastolic dysfunction Code(s): I51.9 - HEART DISEASE, UNSPECIFIED (10) Elevated troponin Code(s): R74.8 - ABNORMAL LEVELS OF OTHER SERUM ENZYMES (11) Hyperlipidemia Code(s): E78.5 - HYPERLIPIDEMIA, UNSPECIFIED Qualifiers: Qualified Code(s): E78.00 - Pure hypercholesterolemia, unspecified; E78.0 - Pure hypercholesterolemia (12) MRSA (methicillin resistant Staphylococcus aureus) colonization Code(s): Z22.322 - CARRIER OR SUSPECTED CARRIER OF METHICILLIN RESIS STAPH (13) Paroxysmal atrial fibrillation with rapid ventricular response Code(s): I48.0 - PAROXYSMAL ATRIAL FIBRILLATION (14) Sepsis Code(s): A41.9 - SEPSIS, UNSPECIFIED ORGANISM Assessment/Plan 1. Acute on Chronic Hypoxic and Hypercapneic Respiratory Failure 2. Acute on chronic class II-III NYHA classification LV diastolic failure referable to underlying posterior directed mod-severe MR due to anterior MV prolapse 3. 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 Sepsis syndrome, history of MRSA bacteremia of unclear source, with splenic infarct 5. Advanced chronic obstructive pulmonary disease on home oxygen therapy with Pulmonary HTN 6. Epistaxis, prior history requiring intervention, nasal packing in situ 7. Anemia related to above and in addition thrombocytopenia 8. Paroxysmal atrial fibrillation with [id number] score of 2 9. HTN 10. 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 UTI PLAN: 1. Taper Cardizem drip and switch to PO Cardizem 2. Resume Diovan when feasible 3. Lovenox for now. Consider PO anticoagulation if not contraindicated 4. As outlined on prior notes - if recurrent arrhythmia may consider antiarrhythmics/Amiodarone 5. Resume Lipitor 10 mg QHS when feasible 6. Monitor Hg and transfuse as needed to maintain Hg equal or > 8.0 7. Bronchodilator, IV steroids, antibiotics course as per ID service 8. Further evaluation for MVP and MR to be decided but can be pursued as outpatient Guarded Toni Mares MD
--- NOTE | 2018-05-02 12:37 | PN ---
Progress Note (short form) - Note Progress Note: PULM/CCM SUBJECTIVE: Patient seen and examined in the ICU. -less time able to stay off NIV -good clearance of secretions -unable to take in adequate nutrition -rising HCo3 (40) is worrisome for worsening resp failure -family and pt want records to go to Dr Calderón at [facility] -afebrile, wbc stable OBJECTIVE: Vital Signs Temp 97.8 F 05/02/18 08:00 Pulse 103 H 05/02/18 12:00 Resp 21 H 05/02/18 12:00 BP 120/67 05/02/18 12:00 Pulse Ox 99 05/02/18 11:37 Intake & Output 05/01/18 05/02/18 05/02/18 23:59 11:59 23:59 Intake Total 699 35 Output Total 900 700 Balance -201 -665 Weight 60.781 kg Intake: IV 99 35 Cardizem Injection - 125 99 35 mg In Normal Saline - 100 ml @ 5 MG/HR 5 mls/hr IVPB TITR [facility] Rx#: [id number] IVPB 600 Output: Urine 900 700 [place] 900 700 Other: Voiding Method Indwelling Catheter Indwelling Catheter Bowel Movement No Body Mass Index (BMI) 19.3 Active Medications Acetaminophen (Tylenol -) 650 mg PO Q6H PRN PRN Reason: FEVER Alprazolam (Xanax -) 0.5 mg PO BID [facility] Last Admin: 05/02/18 09:47 Dose: 0.5 mg Amino Acids (Prosource No Carb Liquid Pkt) 30 ml PO DAILY [facility] Last Admin: 05/02/18 09:50 Dose: 30 ml Chlorhexidine Gluconate (Hibiclens For Decolonization -) 1 applic TP HS [facility] Last Admin: 05/01/18 21:02 Dose: 1 applic Chlorhexidine Gluconate (Peridex -) 15 ml MM BID [facility] Last Admin: 05/02/18 11:51 Dose: Not Given Diltiazem HCl (Cardizem -) 30 mg PO TID [facility] Last Admin: 05/02/18 06:13 Dose: Not Given Enoxaparin Sodium (Lovenox -) 60 mg SQ BID [facility] Last Admin: 05/02/18 09:45 Dose: 60 mg Famotidine/Sodium Chloride (Pepcid 20 Mg Premixed Ivpb -) 20 mg in 50 mls @ 100 mls/hr IVPB BID [facility] Last Admin: 05/02/18 09:50 Dose: 100 mls/hr Vancomycin HCl (Vancomycin (Pre-Docked)) 1,000 mg in 250 mls @ 166.667 mls/hr IVPB BID [facility]; Protocol Last Admin: 05/02/18 09:50 Dose: 166.667 mls/hr Diltiazem HCl 125 mg/ Sodium (Chloride) 125 mls @ 5 mls/hr IVPB TITR [facility]; Protocol Last Admin: 05/01/18 16:13 Dose: 5 mg/hr, 5 mls/hr Insulin Aspart (Novolog Vial Sliding Scale -) 1 vial SQ ACHS [facility]; Protocol Last Admin: 05/02/18 06:13 Dose: Not Given Ipratropium [place] (Atrovent 0.02% Nebulizer -) 1 amp NEB RQID [facility] Last Admin: 05/02/18 11:38 Dose: 1 amp Methylprednisolone Sodium Succinate (Solu-Medrol -) 40 mg IVPUSH BID [facility] Last Admin: 05/02/18 09:50 Dose: 40 mg Metoprolol Tartrate (Lopressor Injection -) 5 mg IVPUSH Q4H PRN PRN Reason: TACHYCARDIA Last Admin: 04/29/18 12:11 Dose: 5 mg Potassium Phos/Sodium Phos (Phos-Nak Packet -) 1 packet PO DAILY [facility] Last Admin: 05/02/18 09:52 Dose: 1 packet Sodium Chloride ([place] Nasal [place] -) 2 spray NS BID PRN PRN Reason: NASAL CONGESTION No CXR TODAY CBC, BMP 05/02/18 05:30 05/02/18 05:30 Gen: awake, mildly dyspneic, mostly on NIV Heart: tachycardic, irregular Lung: scattered rhonchi, + cough with thick yellow/green sputum Abd: soft, nontender Ext: no edema Neuro: intact, follows commands ASSESSMENT AND PLAN: Acute on Chronic Hypoxic and Hypercapneic Respiratory Failure UTI Septic Shock Lactic Acidosis Epistaxis Acute on Chronic Diastolic Heart Failure Severe Mitral Regurgitation Thrombocytopenia CAD COPD Pulmonary HTN Paroxysmal Atrial Fibrillation HTN Hypercholesterolemia Endocarditis ruled out - NIV as needed (progressively longer which is problematic) - ABX per ID (long course of MRSA treatment ongoing) - AC with enoxaparin - rate control with cardizem gtt, lopressor IVP, transition to PO as tolerated - Wean medrol slowly, holding off today as looks worse. - inhaled bronchodilators - O2 to keep SpO2 >90% - DVT/GI prophylaxis -needs NGT to get adequate nutrition, will place - continue ICU monitoring for tenuous respiratory status - family wishing to send records to [facility], has been followed by Lung Transplant service/Dr Pamella Calderón. Nani ACNP [id number] 35min CCT
[2018-05-02] MEDS: DILTIAZEM INJECTION 125 MG in SODIUM CHLORIDE 100 ML IVPB SCH (16:33)
--- NOTE | 2018-05-02 16:49 | PN ---
Progress Note (short form) - Note Progress Note: extubated remains on bipap Vital Signs Period Temp Pulse Resp BP Sys/Morgan Pulse Ox Last 24 Hr 97.7 F-98 F 60-120 15-22 101-143/57-82 98-100 cor-rrr lungs decreased bs at basea abd soft,nt ext trace pedal edema CBC, BMP 05/02/18 05:30 05/02/18 05:30 Microbiology 04/28/18 12:27 Blood - Peripheral Venous Blood Culture - Preliminary NO GROWTH OBTAINED AFTER 96 HOURS, INCUBATION TO CONTINUE FOR 1 DAYS. 04/28/18 12:46 Blood - Peripheral Venous Blood Culture - Preliminary NO GROWTH OBTAINED AFTER 96 HOURS, INCUBATION TO CONTINUE FOR 1 DAYS. 04/23/18 11:30 Blood - Peripheral Venous Blood Culture - Preliminary Pending Organism 04/23/18 12:52 Blood - Peripheral Venous Blood Culture - Final NO GROWTH AFTER 5 DAYS INCUBATION 04/24/18 18:00 Sputum - Endotrachea Suction/Ventilator Gram Stain - Final 04/24/18 18:00 Sputum - Endotrachea Suction/Ventilator Sputum Culture - Final Enterobacter Aerogenes 04/26/18 10:00 Urine - Urine [place] Legionella Antigen - Final 04/26/18 10:00 Urine - Urine [place] Streptococcus pneumoniae Antigen (M - Final 04/23/18 13:00 Urine - Urine Clean Catch Urine Culture - Final NO GROWTH OBTAINED moderate to severe MR on LUBNA- no vegetation Current Medications Acetaminophen (Tylenol -) 650 mg PO Q6H PRN PRN Reason: FEVER Alprazolam (Xanax -) 0.5 mg PO BID [facility] Last Admin: 05/02/18 09:47 Dose: 0.5 mg Amino Acids (Prosource No Carb Liquid Pkt) 30 ml PO DAILY [facility] Last Admin: 05/02/18 09:50 Dose: 30 ml Chlorhexidine Gluconate (Hibiclens For Decolonization -) 1 applic TP HS [facility] Last Admin: 05/01/18 21:02 Dose: 1 applic Chlorhexidine Gluconate (Peridex -) 15 ml MM BID [facility] Last Admin: 05/02/18 11:51 Dose: Not Given Diltiazem HCl (Cardizem -) 30 mg PO TID [facility] Last Admin: 05/02/18 14:00 Dose: 30 mg Enoxaparin Sodium (Lovenox -) 60 mg SQ BID [facility] Last Admin: 05/02/18 09:45 Dose: 60 mg Famotidine/Sodium Chloride (Pepcid 20 Mg Premixed Ivpb -) 20 mg in 50 mls @ 100 mls/hr IVPB BID [facility] Last Admin: 05/02/18 09:50 Dose: 100 mls/hr Vancomycin HCl (Vancomycin (Pre-Docked)) 1,000 mg in 250 mls @ 166.667 mls/hr IVPB BID [facility]; Protocol Last Admin: 05/02/18 09:50 Dose: 166.667 mls/hr Diltiazem HCl 125 mg/ Sodium (Chloride) 125 mls @ 5 mls/hr IVPB TITR [facility]; Protocol Last Admin: 05/02/18 16:33 Dose: Not Given Insulin Aspart (Novolog Vial Sliding Scale -) 1 vial SQ ACHS [facility]; Protocol Last Admin: 05/02/18 16:39 Dose: 2 units Ipratropium [place] (Atrovent 0.02% Nebulizer -) 1 amp NEB RQID [facility] Last Admin: 05/02/18 16:17 Dose: 1 amp Methylprednisolone Sodium Succinate (Solu-Medrol -) 40 mg IVPUSH BID [facility] Last Admin: 05/02/18 09:50 Dose: 40 mg Metoprolol Tartrate (Lopressor Injection -) 5 mg IVPUSH Q4H PRN PRN Reason: TACHYCARDIA Last Admin: 04/29/18 12:11 Dose: 5 mg Potassium Phos/Sodium Phos (Phos-Nak Packet -) 1 packet PO DAILY [facility] Last Admin: 05/02/18 09:52 Dose: 1 packet Sodium Chloride ([place] Nasal [place] -) 2 spray NS BID PRN PRN Reason: NASAL CONGESTION vanco trough 14.6 a/p FUO respiratory failure-now extubated MRSA bacteremia-day #34 MRSA treatment plan total 42 days LUBNA no vegetations-severe mitral regurgitation thrombocytopenia-platelets are recovering endstage COPD afib with RVR apical lung mass? continue vancomycin overall prognosis is guarded Problem List - Problems (1) Sepsis Code(s): A41.9 - SEPSIS, UNSPECIFIED ORGANISM (2) Epistaxis, recurrent Code(s): R04.0 - EPISTAXIS (3) MRSA bacteremia Code(s): R78.81 - BACTEREMIA
[2018-05-02] MEDS: CHLORHEXIDINE GLUCONATE 4% CLEANSER FOR DECOLONIZATION TP SCH (21:04)
[2018-05-02] MEDS: ACETAMINOPHEN 325 MG TABLET (FP) PO PRN (22:40)
[2018-05-03] MEDS: dilTIAZem HCL 30 MG TABLET (FP) PO SCH ×3 (06:14→21:06)
[2018-05-03] MEDS: INSULIN SLIDING SCALE (NOVOLOG) 1 VIAL SQ SCH ×4 (06:14→21:49)
[2018-05-03 06:18] LABS: HEMATOCRIT 32.5 % (35.4-49); HEMOGLOBIN 10.1 GM/dL (11.7-16.9); MCH 29.5 pg (25.7-33.7); MCHC 31.1 g/dl (32.0-35.9); MEAN PLT VOLUME 9.4 fl (7.5-11.1); PLATELET COUNT 106 K/MM3 (134-434); RBC 3.42 M/mm3 (4.00-5.60); RDW 16.1 % (11.9-15.9); WHITE BLOOD COUNT 7.4 K/mm3 (4.0-10.0)
[2018-05-03 06:52] LABS: ALBUMIN 2.4 g/dl (3.4-5.0); ALK PHOS 77 U/L (45-117); ANION GAP 5 MMOL/L (8-16); BILIRUBIN,TOTAL 0.7 mg/dL (0.2-1); BLOOD UREA NITROGEN 23 mg/dL (7-18); CALCIUM 8.3 mg/dL (8.5-10.1); CHLORIDE 100 mmol/L (98-107); CO2 42 mmol/L (21-32); CREATININE 0.3 mg/dL (0.55-1.3); GLUCOSE,RANDOM 158 mg/dL (74-106); MAGNESIUM 2.5 mg/dL (1.8-2.4); PHOSPHOROUS 1.9 mg/dL (2.5-4.9); POTASSIUM 3.7 mmol/L (3.5-5.1); SGOT/AST 17 U/L (15-37); SGPT/ALT 33 U/L (13-61); SODIUM 147 mmol/L (136-145); TOT PROT 5.2 g/dl (6.4-8.2)
[2018-05-03] MEDS: IPRATROPIUM BR 0.02% 0.5 MG/2.5 ML VIAL.NEB. NEB SCH ×4 (07:25→20:20)
--- NOTE | 2018-05-03 09:02 | PN ---
Progress Note, Physician - Current Medication List Current Medications: Active Medications Acetaminophen (Tylenol -) 650 mg PO Q6H PRN PRN Reason: FEVER Last Admin: 05/02/18 22:40 Dose: 650 mg Alprazolam (Xanax -) 0.5 mg PO BID [facility] Last Admin: 05/02/18 21:05 Dose: 0.5 mg Amino Acids (Prosource No Carb Liquid Pkt) 30 ml PO DAILY [facility] Last Admin: 05/02/18 09:50 Dose: 30 ml Chlorhexidine Gluconate (Hibiclens For Decolonization -) 1 applic TP HS [facility] Last Admin: 05/02/18 21:04 Dose: 1 applic Chlorhexidine Gluconate (Peridex -) 15 ml MM BID [facility] Last Admin: 05/02/18 21:05 Dose: Not Given Diltiazem HCl (Cardizem -) 30 mg PO TID [facility] Last Admin: 05/03/18 06:14 Dose: 30 mg Enoxaparin Sodium (Lovenox -) 60 mg SQ BID [facility] Last Admin: 05/02/18 21:05 Dose: 60 mg Famotidine/Sodium Chloride (Pepcid 20 Mg Premixed Ivpb -) 20 mg in 50 mls @ 100 mls/hr IVPB BID [facility] Last Admin: 05/02/18 21:04 Dose: 100 mls/hr Vancomycin HCl (Vancomycin (Pre-Docked)) 1,000 mg in 250 mls @ 166.667 mls/hr IVPB BID [facility]; Protocol Last Admin: 05/02/18 21:04 Dose: 166.667 mls/hr Diltiazem HCl 125 mg/ Sodium (Chloride) 125 mls @ 5 mls/hr IVPB TITR [facility]; Protocol Last Admin: 05/02/18 16:33 Dose: Not Given Insulin Aspart (Novolog Vial Sliding Scale -) 1 vial SQ ACHS [facility]; Protocol Last Admin: 05/03/18 06:14 Dose: 2 units Ipratropium [place] (Atrovent 0.02% Nebulizer -) 1 amp NEB RQID [facility] Last Admin: 05/02/18 20:36 Dose: 1 amp Methylprednisolone Sodium Succinate (Solu-Medrol -) 40 mg IVPUSH BID [facility] Last Admin: 05/02/18 21:04 Dose: 40 mg Metoprolol Tartrate (Lopressor Injection -) 5 mg IVPUSH Q4H PRN PRN Reason: TACHYCARDIA Last Admin: 04/29/18 12:11 Dose: 5 mg Potassium Phos/Sodium Phos (Phos-Nak Packet -) 1 packet PO DAILY [facility] Last Admin: 05/02/18 09:52 Dose: 1 packet Sodium Chloride ([place] Nasal [place] -) 2 spray NS BID PRN PRN Reason: NASAL CONGESTION - Objective Vital Signs: Vital Signs Temperature 97.4 F L 05/03/18 06:00 Pulse Rate 66 05/03/18 06:00 Respiratory Rate 15 05/03/18 06:00 Blood Pressure 127/67 05/03/18 06:00 O2 Sat by Pulse Oximetry (%) 99 05/03/18 06:56 Labs: CBC, BMP 05/03/18 05:30 05/03/18 05:30 INR, PTT INR 1.14 (0.83-1.09) H 04/27/18 08:31 Problem List - Problems (1) Acute and chronic respiratory failure with hypercapnia Code(s): J96.22 - ACUTE AND CHRONIC RESPIRATORY FAILURE WITH HYPERCAPNIA (2) Anemia Code(s): D64.9 - ANEMIA, UNSPECIFIED Qualifiers: Anemia type: unspecified type Qualified Code(s): D64.9 - Anemia, unspecified (3) COPD (chronic obstructive pulmonary disease) Code(s): J44.9 - CHRONIC OBSTRUCTIVE PULMONARY DISEASE, UNSPECIFIED Qualifiers: COPD type: unspecified COPD Qualified Code(s): J44.9 - Chronic obstructive pulmonary disease, unspecified (4) MRSA bacteremia Code(s): R78.81 - BACTEREMIA (5) Nasal hemorrhage Code(s): R04.0 - EPISTAXIS (6) Afib Code(s): I48.91 - UNSPECIFIED ATRIAL FIBRILLATION
[2018-05-03] MEDS: FAMOTIDINE 20 MG/50 ML IVPB 20 MG/50 ML MG IVPB SCH ×2 (10:07→21:06)
[2018-05-03] MEDS: VANCOMYCIN 1 GRAM (PRE-DOCKED) 1,000 MG/250 ML BAG IVPB SCH ×2 (10:07→21:05)
[2018-05-03] MEDS: methylPREDNISolone NA SUCC 40 MG/1 ML VIAL IVPUSH SCH ×2 (10:08→21:06)
[2018-05-03] MEDS: ENOXAPARIN NA (PORCINE) 60 MG/0.6 ML DISP.SYRIN SQ SCH ×2 (10:09→21:05)
[2018-05-03] MEDS: ALPRAZolam 0.25 MG TABLET PO SCH ×2 (10:10→21:07)
[2018-05-03] MEDS: CHLORHEXIDINE GLUCONATE 0.12% 15ML CUP MM SCH ×2 (10:10→21:06)
[2018-05-03] MEDS: AMINO ACIDS/PROTEIN HYDROLYS 30 ML LIQUID.PKT PO SCH (10:10)
[2018-05-03] MEDS: NAPH,MB-DB/K PH,MBDB POWDER PACKET PO SCH (10:10)
--- NOTE | 2018-05-03 10:13 | PN ---
Progress Note (short form) - Note Progress Note: remains on bipap now with feeding tube was able to talk to me off the bipap alert no complaints Vital Signs Period Temp Pulse Resp BP Sys/Morgan Pulse Ox Last 24 Hr 97.2 F-98.2 F 55-135 14-22 115-154/53-80 99-100 cor-rrr lungs clear abd soft,nt ext no edema multiple ecchymoses of the arms CBC, BMP 05/03/18 05:30 05/03/18 05:30 Microbiology 04/28/18 12:27 Blood - Peripheral Venous Blood Culture - Preliminary NO GROWTH OBTAINED AFTER 96 HOURS, INCUBATION TO CONTINUE FOR 1 DAYS. 04/28/18 12:46 Blood - Peripheral Venous Blood Culture - Preliminary NO GROWTH OBTAINED AFTER 96 HOURS, INCUBATION TO CONTINUE FOR 1 DAYS. 04/23/18 11:30 Blood - Peripheral Venous Blood Culture - Preliminary Pending Organism 04/23/18 12:52 Blood - Peripheral Venous Blood Culture - Final NO GROWTH AFTER 5 DAYS INCUBATION 04/24/18 18:00 Sputum - Endotrachea Suction/Ventilator Gram Stain - Final 04/24/18 18:00 Sputum - Endotrachea Suction/Ventilator Sputum Culture - Final Enterobacter Aerogenes 04/26/18 10:00 Urine - Urine Bowling Legionella Antigen - Final 04/26/18 10:00 Urine - Urine [place] Streptococcus pneumoniae Antigen (M - Final 04/23/18 13:00 Urine - Urine Clean Catch Urine Culture - Final NO GROWTH OBTAINED Current Medications Acetaminophen (Tylenol -) 650 mg PO Q6H PRN PRN Reason: FEVER Last Admin: 05/02/18 22:40 Dose: 650 mg Alprazolam (Xanax -) 0.5 mg PO BID [facility] Last Admin: 05/03/18 10:10 Dose: 0.5 mg Amino Acids (Prosource No Carb Liquid Pkt) 30 ml PO DAILY [facility] Last Admin: 05/03/18 10:10 Dose: 30 ml Chlorhexidine Gluconate (Hibiclens For Decolonization -) 1 applic TP HS [facility] Last Admin: 05/02/18 21:04 Dose: 1 applic Chlorhexidine Gluconate (Peridex -) 15 ml MM BID [facility] Last Admin: 05/03/18 10:10 Dose: 15 ml Diltiazem HCl (Cardizem -) 30 mg PO TID [facility] Last Admin: 05/03/18 06:14 Dose: 30 mg Enoxaparin Sodium (Lovenox -) 60 mg SQ BID [facility] Last Admin: 05/03/18 10:09 Dose: 60 mg Famotidine/Sodium Chloride (Pepcid 20 Mg Premixed Ivpb -) 20 mg in 50 mls @ 100 mls/hr IVPB BID [facility] Last Admin: 05/03/18 10:07 Dose: 100 mls/hr Vancomycin HCl (Vancomycin (Pre-Docked)) 1,000 mg in 250 mls @ 166.667 mls/hr IVPB BID [facility]; Protocol Last Admin: 05/03/18 10:07 Dose: 166.667 mls/hr Diltiazem HCl 125 mg/ Sodium (Chloride) 125 mls @ 5 mls/hr IVPB TITR [facility]; Protocol Last Admin: 05/02/18 16:33 Dose: Not Given Insulin Aspart (Novolog Vial Sliding Scale -) 1 vial SQ ACHS [facility]; Protocol Last Admin: 05/03/18 06:14 Dose: 2 units Ipratropium [place] (Atrovent 0.02% Nebulizer -) 1 amp NEB RQID [facility] Last Admin: 05/03/18 07:25 Dose: 1 amp Methylprednisolone Sodium Succinate (Solu-Medrol -) 40 mg IVPUSH BID [facility] Last Admin: 05/03/18 10:08 Dose: 40 mg Metoprolol Tartrate (Lopressor Injection -) 5 mg IVPUSH Q4H PRN PRN Reason: TACHYCARDIA Last Admin: 04/29/18 12:11 Dose: 5 mg Potassium Phos/Sodium Phos (Phos-Nak Packet -) 1 packet PO DAILY [facility] Last Admin: 05/03/18 10:10 Dose: 1 packet Sodium Chloride ([place] Nasal [place] -) 2 spray NS BID PRN PRN Reason: NASAL CONGESTION moderate to severe MR on LUBNA- no vegetation vanco trough 16.6 a/p FUO respiratory failure-now on bipap MRSA bacteremia-day #35 MRSA treatment plan total 42 days LUBNA no vegetations-severe mitral regurgitation thrombocytopenia-platelets are recovering endstage COPD afib with RVR apical lung mass? continue vancomycin, trough acceptable overall prognosis is guarded d/w dr burgos Problem List - Problems (1) Sepsis Code(s): A41.9 - SEPSIS, UNSPECIFIED ORGANISM (2) Epistaxis, recurrent Code(s): R04.0 - EPISTAXIS (3) MRSA bacteremia Code(s): R78.81 - BACTEREMIA
--- NOTE | 2018-05-03 10:24 | PN ---
Progress Note, Physician Chief Complaint: Events noted Awake and alert. Remains in sinus rhythm History of Present Illness: Patient was seen and examined in ICU. Awake and alert. Chart was reviewed Tolerating therapy - Current Medication List Current Medications: Active Medications Acetaminophen (Tylenol -) 650 mg PO Q6H PRN PRN Reason: FEVER Last Admin: 05/02/18 22:40 Dose: 650 mg Alprazolam (Xanax -) 0.5 mg PO BID [facility] Last Admin: 05/03/18 10:10 Dose: 0.5 mg Amino Acids (Prosource No Carb Liquid Pkt) 30 ml PO DAILY [facility] Last Admin: 05/03/18 10:10 Dose: 30 ml Chlorhexidine Gluconate (Hibiclens For Decolonization -) 1 applic TP HS [facility] Last Admin: 05/02/18 21:04 Dose: 1 applic Chlorhexidine Gluconate (Peridex -) 15 ml MM BID [facility] Last Admin: 05/03/18 10:10 Dose: 15 ml Diltiazem HCl (Cardizem -) 30 mg PO TID [facility] Last Admin: 05/03/18 06:14 Dose: 30 mg Enoxaparin Sodium (Lovenox -) 60 mg SQ BID [facility] Last Admin: 05/03/18 10:09 Dose: 60 mg Famotidine/Sodium Chloride (Pepcid 20 Mg Premixed Ivpb -) 20 mg in 50 mls @ 100 mls/hr IVPB BID [facility] Last Admin: 05/03/18 10:07 Dose: 100 mls/hr Vancomycin HCl (Vancomycin (Pre-Docked)) 1,000 mg in 250 mls @ 166.667 mls/hr IVPB BID [facility]; Protocol Last Admin: 05/03/18 10:07 Dose: 166.667 mls/hr Diltiazem HCl 125 mg/ Sodium (Chloride) 125 mls @ 5 mls/hr IVPB TITR [facility]; Protocol Last Admin: 05/02/18 16:33 Dose: Not Given Insulin Aspart (Novolog Vial Sliding Scale -) 1 vial SQ ACHS [facility]; Protocol Last Admin: 05/03/18 06:14 Dose: 2 units Ipratropium [place] (Atrovent 0.02% Nebulizer -) 1 amp NEB RQID [facility] Last Admin: 05/03/18 07:25 Dose: 1 amp Methylprednisolone Sodium Succinate (Solu-Medrol -) 40 mg IVPUSH BID [facility] Last Admin: 05/03/18 10:08 Dose: 40 mg Metoprolol Tartrate (Lopressor Injection -) 5 mg IVPUSH Q4H PRN PRN Reason: TACHYCARDIA Last Admin: 04/29/18 12:11 Dose: 5 mg Potassium Phos/Sodium Phos (Phos-Nak Packet -) 1 packet PO DAILY [facility] Last Admin: 05/03/18 10:10 Dose: 1 packet Sodium Chloride ([place] Nasal [place] -) 2 spray NS BID PRN PRN Reason: NASAL CONGESTION - Objective Vital Signs: Vital Signs Temperature 97.4 F L 05/03/18 06:00 Pulse Rate 72 05/03/18 08:00 Respiratory Rate 16 05/03/18 08:00 Blood Pressure 135/62 05/03/18 08:00 O2 Sat by Pulse Oximetry (%) 100 05/03/18 08:15 Eyes: Yes: PERRL HENT: Yes: Atraumatic Neck: Yes: Supple Cardiovascular: Yes: Regular Rate and Rhythm, S1, S2 Respiratory: Yes: Diminished Gastrointestinal: Yes: Normal Bowel Sounds, Soft. No: Tenderness Edema: Yes Edema: LLE: 1+, RLE: 1+ Labs: CBC, BMP 05/03/18 05:30 05/03/18 05:30 Problem List - Problems (1) MRSA bacteremia Code(s): R78.81 - BACTEREMIA (2) Mitral valve anterior leaflet prolapse Code(s): I34.1 - NONRHEUMATIC MITRAL (VALVE) PROLAPSE (3) Moderate to severe mitral regurgitation Code(s): I34.0 - NONRHEUMATIC MITRAL (VALVE) INSUFFICIENCY (4) Acute and chronic respiratory failure Code(s): J96.20 - ACUTE AND CHR RESP FAILURE, UNSP W HYPOXIA OR HYPERCAPNIA Qualifiers: Respiratory failure complication: hypoxia and hypercapnia Qualified Code(s) : J96.21 - Acute and chronic respiratory failure with hypoxia; J96.22 - Acute and chronic respiratory failure with hypercapnia (5) Acute and chronic respiratory failure with hypercapnia Code(s): J96.22 - ACUTE AND CHRONIC RESPIRATORY FAILURE WITH HYPERCAPNIA (6) Arteriosclerotic heart disease (ASHD) Code(s): I25.10 - ATHSCL HEART DISEASE OF [place] CORONARY ARTERY W/O ANG PCTRS (7) CHF (congestive heart failure) Code(s): I50.9 - HEART FAILURE, UNSPECIFIED (8) COPD (chronic obstructive pulmonary disease) Code(s): J44.9 - CHRONIC OBSTRUCTIVE PULMONARY DISEASE, UNSPECIFIED Qualifiers: COPD type: unspecified COPD Qualified Code(s): J44.9 - Chronic obstructive pulmonary disease, unspecified (9) Diastolic dysfunction Code(s): I51.9 - HEART DISEASE, UNSPECIFIED (10) Elevated troponin Code(s): R74.8 - ABNORMAL LEVELS OF OTHER SERUM ENZYMES (11) Hyperlipidemia Code(s): E78.5 - HYPERLIPIDEMIA, UNSPECIFIED Qualifiers: Hyperlipidemia type: pure hypercholesterolemia Qualified Code(s): E78.00 - Pure hypercholesterolemia, unspecified; E78.0 - Pure hypercholesterolemia (12) MRSA (methicillin resistant Staphylococcus aureus) colonization Code(s): Z22.322 - CARRIER OR SUSPECTED CARRIER OF METHICILLIN RESIS STAPH (13) Paroxysmal atrial fibrillation with rapid ventricular response Code(s): I48.0 - PAROXYSMAL ATRIAL FIBRILLATION (14) Sepsis Code(s): A41.9 - SEPSIS, UNSPECIFIED ORGANISM Assessment/Plan 1. Acute on Chronic Hypoxic and Hypercapneic Respiratory Failure 2. Acute on chronic class II-III NYHA classification LV diastolic failure referable to underlying posterior directed moderate-severe MR due to anterior MV prolapse 3. 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 Sepsis syndrome, history of MRSA bacteremia of unclear source, with splenic infarct 5. Advanced chronic obstructive pulmonary disease on home oxygen therapy with Pulmonary HTN 6. Epistaxis, prior history requiring intervention, nasal packing in situ 7. Anemia related to above and in addition thrombocytopenia 8. Paroxysmal atrial fibrillation with [id number] score of 2 9. HTN 10. 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 UTI PLAN: 1. Continue PO Cardizem and uptitrate 2. Resume Diovan when feasible 3. Lovenox for now. Consider PO anticoagulation if not contraindicated 4. Consider diuretics - Furosemide 5. Resume Lipitor 10 mg QHS when feasible 6. Monitor Hgb and transfuse as needed to maintain Hgb equal or > 8.0 7. Bronchodilator, IV steroids, antibiotics course as per ID service 8. Further evaluation for MVP and MR to be decided but can be pursued as outpatient Guarded Toni Mares MD
[2018-05-03] MEDS: METOPROLOL TARTRATE 5 MG/5 ML VIAL IVPUSH PRN ×2 (11:26→15:33)
--- NOTE | 2018-05-03 11:33 | PN ---
Progress Note (short form) - Note Progress Note: PROGRESS NOTE FOR HEMATOLOGY/ONCOLOGY Patient seen and examined by me at bedside. Patient remains on BIPAP NG tube placed for feeding Platelets continue to improve Otherwise, denies any fever, chills, nausea, vomiting, chest pain, abdominal pain, headaches, dysuria, hematuria, melena, hematochezia Vital Signs Temperature 98.2 F 05/03/18 10:00 Pulse Rate 180 H 05/03/18 11:26 Respiratory Rate 18 05/03/18 10:00 Blood Pressure 161/104 H 05/03/18 11:26 O2 Sat by Pulse Oximetry (%) 97 05/03/18 11:10 PHYSICAL EXAMINATION: GENERAL: Awake, alert, in no acute distress EYES: Pupils equal, round and reactive to light, extraocular movements intact, sclera anicteric, conjunctiva clear. ENT: Dry mucous membranes LUNGS: On BIPAP. Coarse breath sounds throughout lung bases bilaterally HEART: Tachycardic with irregularly irregular rhythm, normal S1 and S2 ABDOMEN: Soft, nontender, not distended, normoactive bowel sounds EXTREMITIES: No peripheral edema SKIN: Multiple echhymosis of bilateral upper extremities Laboratory Tests 05/03/18 05:30 05/03/18 05:30 ASSESSMENT/PLAN: Patient is a 67 year old male who presented for recurrent epistaxis and was found to be in Severe Sepsis of unknown etiology. Patient's lab work revealed thrombocytopenia and we were consulted for further evaluation and recommendation. Problem List: Epistaxis Thrombocytopenia Severe Sepsis MRSA bacteremia Atrial Fibrillation (On eliquis) Advanced COPD (on 3L 02) Interstitial Lung disease HTN HLD CAD s/p PR Diastolic LV dysfunction PLAN: -Platelets continue to improve. -Platelets recovering to 106K today -Would continue to monitor
[2018-05-03] MEDS ORDERED: HEMOQUE TEST 1 EACH EACH ONE (11:58)
--- NOTE | 2018-05-03 12:20 | PN ---
Progress Note, Physician - Current Medication List Current Medications: Active Medications Acetaminophen (Tylenol -) 650 mg PO Q6H PRN PRN Reason: FEVER Last Admin: 05/02/18 22:40 Dose: 650 mg Alprazolam (Xanax -) 0.5 mg PO BID [facility] Last Admin: 05/03/18 10:10 Dose: 0.5 mg Amino Acids (Prosource No Carb Liquid Pkt) 30 ml PO DAILY [facility] Last Admin: 05/03/18 10:10 Dose: 30 ml Chlorhexidine Gluconate (Hibiclens For Decolonization -) 1 applic TP HS [facility] Last Admin: 05/02/18 21:04 Dose: 1 applic Chlorhexidine Gluconate (Peridex -) 15 ml MM BID [facility] Last Admin: 05/03/18 10:10 Dose: 15 ml Diltiazem HCl (Cardizem -) 30 mg PO TID [facility] Last Admin: 05/03/18 06:14 Dose: 30 mg Enoxaparin Sodium (Lovenox -) 60 mg SQ BID [facility] Last Admin: 05/03/18 10:09 Dose: 60 mg Famotidine/Sodium Chloride (Pepcid 20 Mg Premixed Ivpb -) 20 mg in 50 mls @ 100 mls/hr IVPB BID [facility] Last Admin: 05/03/18 10:07 Dose: 100 mls/hr Vancomycin HCl (Vancomycin (Pre-Docked)) 1,000 mg in 250 mls @ 166.667 mls/hr IVPB BID [facility]; Protocol Last Admin: 05/03/18 10:07 Dose: 166.667 mls/hr Diltiazem HCl 125 mg/ Sodium (Chloride) 125 mls @ 5 mls/hr IVPB TITR [facility]; Protocol Last Admin: 05/02/18 16:33 Dose: Not Given Insulin Aspart (Novolog Vial Sliding Scale -) 1 vial SQ ACHS [facility]; Protocol Last Admin: 05/03/18 06:14 Dose: 2 units Ipratropium [place] (Atrovent 0.02% Nebulizer -) 1 amp NEB RQID [facility] Last Admin: 05/03/18 11:10 Dose: 1 amp Methylprednisolone Sodium Succinate (Solu-Medrol -) 40 mg IVPUSH BID [facility] Last Admin: 05/03/18 10:08 Dose: 40 mg Metoprolol Tartrate (Lopressor Injection -) 5 mg IVPUSH Q4H PRN PRN Reason: TACHYCARDIA Last Admin: 05/03/18 11:26 Dose: 5 mg Potassium Phos/Sodium Phos (Phos-Nak Packet -) 1 packet PO DAILY [facility] Last Admin: 05/03/18 10:10 Dose: 1 packet Sodium Chloride ([place] Nasal [place] -) 2 spray NS BID PRN PRN Reason: NASAL CONGESTION - Objective Vital Signs: Vital Signs Temperature 98.2 F 05/03/18 10:00 Pulse Rate 97 H 05/03/18 12:00 Respiratory Rate 22 H 05/03/18 12:00 Blood Pressure 128/77 05/03/18 12:00 O2 Sat by Pulse Oximetry (%) 97 05/03/18 11:10 Cardiovascular: Yes: S1, S2 Respiratory: Yes: On BiPap Gastrointestinal: Yes: Normal Bowel Sounds, Soft Labs: CBC, BMP 05/03/18 05:30 05/03/18 05:30 INR, PTT INR 1.14 (0.83-1.09) H 04/27/18 08:31 Problem List - Problems (1) Acute and chronic respiratory failure with hypercapnia Assessment/Plan: Extubated--on bipap pulm on board oxygen bronchodilators Code(s): J96.22 - ACUTE AND CHRONIC RESPIRATORY FAILURE WITH HYPERCAPNIA (2) Anemia Assessment/Plan: Monitor 04/29/18 04/30/18 05:30 05:30 Hgb 9.4 L 10.6 L Code(s): D64.9 - ANEMIA, UNSPECIFIED Qualifiers: Anemia type: unspecified type Qualified Code(s): D64.9 - Anemia, unspecified (3) COPD (chronic obstructive pulmonary disease) Assessment/Plan: -Nebs -steroids Code(s): J44.9 - CHRONIC OBSTRUCTIVE PULMONARY DISEASE, UNSPECIFIED Qualifiers: COPD type: unspecified COPD Qualified Code(s): J44.9 - Chronic obstructive pulmonary disease, unspecified (4) MRSA bacteremia Assessment/Plan: Abx per id--Vanco isolation ID consult and follow up noted LUBNA done no vegetation Code(s): R78.81 - BACTEREMIA (5) Nasal hemorrhage Code(s): R04.0 - EPISTAXIS (6) Afib Assessment/Plan: On Lovenox Code(s): I48.91 - UNSPECIFIED ATRIAL FIBRILLATION
--- NOTE | 2018-05-03 12:35 | PN ---
Teaching Attending Note Name of Resident: Candida Parnell ATTENDING PHYSICIAN STATEMENT I saw and evaluated the patient. I reviewed the resident's note and discussed the case with the resident. I agree with the resident's findings and plan as documented. SUBJECTIVE: Patient seen and examined in the ICU. Remains extubated but on NIPPV support all night. Remains mildly to moderately tachypneic. Denies CP. OBJECTIVE: Intake & Output 04/30/18 05/01/18 05/02/18 05/03/18 23:59 23:59 23:59 23:59 Intake Total 1210 814 955 410 Output Total 1250 1200 1300 400 Balance -40 -386 -345 10 Weight 133 lb 9.602 oz 135 lb 9.349 oz 136 lb 10.986 oz 137 lb 12.623 oz Last Vital Signs Temp Pulse Resp BP Pulse Ox 98.2 F 97 H 22 H 128/77 97 05/03/18 10:00 05/03/18 12:00 05/03/18 12:00 05/03/18 12:00 05/03/18 11:10 Active Medications Acetaminophen (Tylenol -) 650 mg PO Q6H PRN PRN Reason: FEVER Last Admin: 05/02/18 22:40 Dose: 650 mg Alprazolam (Xanax -) 0.5 mg PO BID [facility] Last Admin: 05/03/18 10:10 Dose: 0.5 mg Amino Acids (Prosource No Carb Liquid Pkt) 30 ml PO DAILY [facility] Last Admin: 05/03/18 10:10 Dose: 30 ml Chlorhexidine Gluconate (Hibiclens For Decolonization -) 1 applic TP HS [facility] Last Admin: 05/02/18 21:04 Dose: 1 applic Chlorhexidine Gluconate (Peridex -) 15 ml MM BID [facility] Last Admin: 05/03/18 10:10 Dose: 15 ml Diltiazem HCl (Cardizem -) 30 mg PO TID [facility] Last Admin: 05/03/18 06:14 Dose: 30 mg Enoxaparin Sodium (Lovenox -) 60 mg SQ BID [facility] Last Admin: 05/03/18 10:09 Dose: 60 mg Famotidine/Sodium Chloride (Pepcid 20 Mg Premixed Ivpb -) 20 mg in 50 mls @ 100 mls/hr IVPB BID [facility] Last Admin: 05/03/18 10:07 Dose: 100 mls/hr Vancomycin HCl (Vancomycin (Pre-Docked)) 1,000 mg in 250 mls @ 166.667 mls/hr IVPB BID [facility]; Protocol Last Admin: 05/03/18 10:07 Dose: 166.667 mls/hr Diltiazem HCl 125 mg/ Sodium (Chloride) 125 mls @ 5 mls/hr IVPB TITR [facility]; Protocol Last Admin: 05/02/18 16:33 Dose: Not Given Insulin Aspart (Novolog Vial Sliding Scale -) 1 vial SQ ACHS [facility]; Protocol Last Admin: 05/03/18 06:14 Dose: 2 units Ipratropium [place] (Atrovent 0.02% Nebulizer -) 1 amp NEB RQID [facility] Last Admin: 05/03/18 11:10 Dose: 1 amp Methylprednisolone Sodium Succinate (Solu-Medrol -) 40 mg IVPUSH BID [facility] Last Admin: 05/03/18 10:08 Dose: 40 mg Metoprolol Tartrate (Lopressor Injection -) 5 mg IVPUSH Q4H PRN PRN Reason: TACHYCARDIA Last Admin: 05/03/18 11:26 Dose: 5 mg Potassium Phos/Sodium Phos (Phos-Nak Packet -) 1 packet PO DAILY [facility] Last Admin: 05/03/18 10:10 Dose: 1 packet Sodium Chloride ([place] Nasal [place] -) 2 spray NS BID PRN PRN Reason: NASAL CONGESTION Gen: Mildly to moderately tachypneic on VM O2 Heart: tachycardic, irregular Lung: scattered rhonchi Abd: soft, nontender Ext: no edema Laboratory Results - last 24 hr 04/25/18 04/25/18 05/02/18 05:13 05:16 12:30 WBC RBC Hgb Hct MCV MCH MCHC RDW Plt Count MPV Sodium Potassium Chloride Carbon Dioxide Anion Gap BUN Creatinine Creat Clearance w eGFR POC Glucometer 224.95612 149.42379 152.62154 Random Glucose Calcium Phosphorus Magnesium Total Bilirubin AST ALT Alkaline Phosphatase Total Protein Albumin Vancomycin Pre-Dose 05/02/18 05/02/18 05/03/18 16:37 21:03 05:27 WBC RBC Hgb Hct MCV MCH MCHC RDW Plt Count MPV Sodium Potassium Chloride Carbon Dioxide Anion Gap BUN Creatinine Creat Clearance w eGFR POC Glucometer 165.33260 130.52544 163.95826 Random Glucose Calcium Phosphorus Magnesium Total Bilirubin AST ALT Alkaline Phosphatase Total Protein Albumin Vancomycin Pre-Dose 05/03/18 05/03/18 05/03/18 05:30 05:30 09:00 WBC 7.4 RBC 3.42 L Hgb 10.1 L Hct 32.5 L MCV 95.0 MCH 29.5 MCHC 31.1 L RDW 16.1 H Plt Count 106 L MPV 9.4 Sodium 147 H Potassium 3.7 Chloride 100 Carbon Dioxide 42 H Anion Gap 5 L BUN 23 H Creatinine 0.3 L Creat Clearance w eGFR > 60 POC Glucometer Random Glucose 158 H Calcium 8.3 L Phosphorus 1.9 L Magnesium 2.5 H Total Bilirubin 0.7 AST 17 ALT 33 Alkaline Phosphatase 77 Total Protein 5.2 L Albumin 2.4 L Vancomycin Pre-Dose 16.6 L ASSESSMENT AND PLAN: Acute on Chronic Hypoxic and Hypercapneic Respiratory Failure UTI Septic Shock Lactic Acidosis Epistaxis Acute on Chronic Diastolic Heart Failure Severe Mitral Regurgitation Thrombocytopenia CAD COPD Pulmonary HTN Paroxysmal Atrial Fibrillation HTN Hypercholesterolemia Endocarditis ruled out - Place back on NIPPV to decrease WOB - ABX per ID - monitor urine output, creatinine - monitor CBC - AC - Wean medrol - inhaled bronchodilators - O2 to keep SpO2 >90% - DVT/GI prophylaxis - Cardiac Telemetry monitoring Dr Donovan Critical care time spent in reviewing chart, evaluating patient and formulating plan 35 min
[2018-05-03] MEDS: DILTIAZEM INJECTION 125 MG in SODIUM CHLORIDE 100 ML IVPB SCH (13:23)
--- NOTE | 2018-05-03 15:45 | PN ---
Physical Exam: SUBJECTIVE: Patient seen and examined Alert on bipap OBJECTIVE: Vital Signs Period Temp Pulse Resp BP Sys/Morgan Pulse Ox Last 24 Hr 97.2 F-98.2 F 55-180 14-25 116-161/53-104 96-100 GENERAL: The patient is awake, alert, and fully oriented, in no acute distress. HEAD: Normal with no signs of trauma. EYES: PERRLA ENT: moist mucous membranes. NECK: Trachea midline LUNGS: slightly coarse breath sounds bilaterally, no wheezes, no crackles, no accessory muscle use. HEART: Regular rate and rhythm, S1, S2 without murmur, rub or gallop. ABDOMEN: Soft, nontender, nondistended, normoactive bowel sounds, no guarding, no rebound, no hepatosplenomegaly, no masses. EXTREMITIES: 2+ pulses, warm, well-perfused, no edema. NEUROLOGICAL: Cranial nerves II through XII grossly intact. Normal speech, gait not observed. PSYCH: Normal mood, normal affect. SKIN: Warm, dry, normal turgor, no rashes or lesions noted Laboratory Results - last 24 hr 04/25/18 04/25/18 05/02/18 05:13 05:16 12:30 WBC RBC Hgb Hct MCV MCH MCHC RDW Plt Count MPV Sodium Potassium Chloride Carbon Dioxide Anion Gap BUN Creatinine Creat Clearance w eGFR POC Glucometer 224.62287 149.62140 152.69455 Random Glucose Calcium Phosphorus Magnesium Total Bilirubin AST ALT Alkaline Phosphatase Total Protein Albumin Vancomycin Pre-Dose 05/02/18 05/02/18 05/03/18 16:37 21:03 05:27 WBC RBC Hgb Hct MCV MCH MCHC RDW Plt Count MPV Sodium Potassium Chloride Carbon Dioxide Anion Gap BUN Creatinine Creat Clearance w eGFR POC Glucometer 165.82029 130.71908 163.49535 Random Glucose Calcium Phosphorus Magnesium Total Bilirubin AST ALT Alkaline Phosphatase Total Protein Albumin Vancomycin Pre-Dose 05/03/18 05/03/18 05/03/18 05:30 05:30 09:00 WBC 7.4 RBC 3.42 L Hgb 10.1 L Hct 32.5 L MCV 95.0 MCH 29.5 MCHC 31.1 L RDW 16.1 H Plt Count 106 L MPV 9.4 Sodium 147 H Potassium 3.7 Chloride 100 Carbon Dioxide 42 H Anion Gap 5 L BUN 23 H Creatinine 0.3 L Creat Clearance w eGFR > 60 POC Glucometer Random Glucose 158 H Calcium 8.3 L Phosphorus 1.9 L Magnesium 2.5 H Total Bilirubin 0.7 AST 17 ALT 33 Alkaline Phosphatase 77 Total Protein 5.2 L Albumin 2.4 L Vancomycin Pre-Dose 16.6 L Active Medications Generic Name Dose Route Start Last Admin Trade Name Freq PRN Reason Stop Dose Admin Acetaminophen 650 mg 04/23/18 13:40 05/02/18 22:40 Tylenol - PO 650 mg Q6H PRN Administration FEVER Alprazolam 0.5 mg 05/02/18 10:00 05/03/18 10:10 Xanax - PO 0.5 mg BID TA Administration Amino Acids 30 ml 04/28/18 15:00 05/03/18 10:10 Prosource No Carb Liquid Pkt PO 30 ml DAILY TA Administration Chlorhexidine Gluconate 1 applic 04/23/18 22:00 05/02/18 21:04 Hibiclens For Decolonization - TP 1 applic HS TA Administration Chlorhexidine Gluconate 15 ml 04/25/18 22:00 05/03/18 10:10 Peridex - MM 15 ml BID TA Administration Diltiazem HCl 30 mg 04/28/18 22:00 05/03/18 13:23 Cardizem - PO 30 mg TID TA Administration Enoxaparin Sodium 60 mg 04/29/18 22:00 05/03/18 10:09 Lovenox - SQ 60 mg BID TA Administration Famotidine/Sodium Chloride 20 mg in 50 mls @ 100 mls/hr 04/24/18 10:00 10:07 Pepcid 20 Mg Premixed Ivpb - IVPB 100 mls/hr BID TA Administration Vancomycin HCl 1,000 mg in 250 mls @ 166.667 mls/hr 04/28/18 10:00 05/03/18 10:07 Vancomycin (Pre-Docked) IVPB 166.667 mls/hr BID TA Administration Protocol Diltiazem HCl 125 mg/ Sodium 125 mls @ 5 mls/hr 04/29/18 12:45 05/03/18 13:23 Chloride IVPB Not Given TITR TA Protocol 5 MG/HR Insulin Aspart 1 vial 04/24/18 11:00 05/03/18 12:04 Novolog Vial Sliding Scale - SQ 2 units ACHS TA Administration Protocol Ipratropium [place] 1 amp 04/27/18 12:00 05/03/18 11:10 Atrovent 0.02% Nebulizer - NEB 1 amp RQID TA Administration Methylprednisolone Sodium Succinate 40 mg 04/30/18 22:00 05/03/18 10:08 Solu-Medrol - IVPUSH 40 mg BID TA Administration Metoprolol Tartrate 5 mg 04/27/18 14:35 05/03/18 11:26 Lopressor Injection - IVPUSH 5 mg Q4H PRN Administration TACHYCARDIA Potassium Phos/Sodium Phos 1 packet 05/02/18 10:00 05/03/18 10:10 Phos-Nak Packet - PO 1 packet DAILY TA Administration Sodium Chloride 2 spray 04/29/18 09:00 [place] Nasal [place] - NS BID PRN NASAL CONGESTION ASSESSMENT/PLAN: Patient is a 67 yo M with history of COPD on home oxygen (3L), Interstitial lung disease, HTN, HLD, CHF, diastolic LV dysfunction, [place], CAD, GERD, hiatal hernia, recent dx of Afib with RVR on Eliquis (last dose 04/22 AM), presenting to the ER with a complaint of epistaxis, hypotension and tachycardia. Now admitted to ICU for septic shock. Pt was recently admitted for MRSA bacteremia ID Septic Shock -likely 2/2 urosepsis - ID following case - source of sepsis likely urine as UA: +leuk esterase, + wbc - blood and urine culture neg, sputum culture with gram negative bacilli - CT scan chest/abd/pelvis (04/25) : L upper air filled cavity in L upper chest , R upper fluid structure(possible abscess) - unchanged from 04/01 - Keep MAP> 65 - femoral line removed, picc line removed - on methylprednisone 40mg IVP BID, will decrease to 30mg BID for taper MRSA Bacteremia with suspicion of endocarditis, last admission - LUBNA completed (04/27) - LVEF 60-65%, moderate mitral valve prolapse, severe mitral regurgitation, mild tricuspid regurg, mild aortic regurg, mild aortic sclerosis, no vegetation - MRSA bacteremia-day #34 MRSA treatment plan total 42 days - antibiotics as per ID: vancomycin started (04/27) Heme Acute blood loss, normocytic anemia, likely 2/2 epistaxis, required 2pRBC ( resolved) - Tranfusion goal of Hb > 8 - nasal packing removed (04/27) w/o complications - ENT following (Dr. Clarke) - keep head end elevated Thrombocytopenia, baseline around 130-140 and since 03/02/18 has been decreasing to 80s, likely 2/2 sepsis and antibiotics (resolved) - platelets 65--> 62-->70--> 57-->63 --> 78--> 81 --> 91 --> 106 - Heme consulted, following case, thrombocytopenia thought to be 2/2 MRSA bacteremia Epistaxis from the L nares (resolved) - L nasal packing done in ED, ENT consulted ENT recommends nasal packing until Thursday - nasal packing removed (04/27) w/o complications - nasal saline spray bid, observe for bleeding Cardiac Diastolic LV dysfunc, CHF, phx [place], CAD, Afib w/ RVR - Last ECHO (03/31/18) - normal EF, L ventricular function normal, severe MR, moderate TR - Tele monitoring - Continue lipitor - Trop: neg - cardizem gtt, lopressor IVP, cardizem 30mg TID - Cardiology following HTN - hypotensive 2/2 septic shock - will hold home medications, valsartan - pt continues to have sbp 130-140s, consider restarting home valsartan Afib - plan to resume Eliquis tomorrow AM - [id number] score of 3 - if recurrent arrythmia consider antiarrhythmics/amiodarone Pulm COPD, uses 3L home oxygen continue 3L of oxygen, patient intubated - CXR daily - CXR: RUL fluid collection (possible abscess), LIDNSEY air collection unchanged from 04/01/18 - Per ID: plan for biopsy/drainage of RUL collection when extubated - Ipratroprium neb - Ventimask / Bipap as needed Ortho Bilateral femoral head avascular necrosis - noted on CT abd/pelvis (04/25) - Ortho following case, Dr. Baez - No orthopedic intervention 2/2 medical status F/E/N - Tube feeds - Electrolytes trend - Diabetic diet - sher cath PPX DVT: lovenox GI: pepcid BID Lines, Tubes: sher, PIV Code Status: full code Dispo: transfer to Tele Visit type - Emergency Visit Emergency Visit: No - New Patient This patient is new to me today: No - Critical Care Critical Care patient: No
[2018-05-03] MEDS: CHLORHEXIDINE GLUCONATE 4% CLEANSER FOR DECOLONIZATION TP SCH (21:06)
[2018-05-04] MEDS: dilTIAZem HCL 30 MG TABLET (FP) PO SCH (06:06)
[2018-05-04] MEDS: INSULIN SLIDING SCALE (NOVOLOG) 1 VIAL SQ SCH ×4 (06:06→22:18)
[2018-05-04 06:10] LABS: ARTERIAL BLD GAS O2 SATURATION 98.5 % (90-98.9); ARTERIAL BLOOD GAS pH 7.38 (7.35-7.45)
[2018-05-04 06:16] LABS: BASO % 0.4 % (0-2.0); HEMATOCRIT 32.2 % (35.4-49); HEMOGLOBIN 10.1 GM/dL (11.7-16.9); LYMPH % 0.8 % (8-40); MCHC 31.4 g/dl (32.0-35.9); MEAN CELL VOLUME 95.5 fl (80-96); MEAN PLT VOLUME 9.2 fl (7.5-11.1); MONO % 2.3 % (3.8-10.2); NEUT % 96.5 % (42.8-82.8); PLATELET COUNT 109 K/MM3 (134-434); RBC 3.37 M/mm3 (4.00-5.60); RDW 16.4 % (11.9-15.9)
[2018-05-04 06:36] LABS: ARTERIAL BLOOD GAS PCO2 78.4 mmHg (35-45)
[2018-05-04 06:37] LABS: ALLENS TEST POSITIVE
[2018-05-04] MEDS: IPRATROPIUM BR 0.02% 0.5 MG/2.5 ML VIAL.NEB. NEB SCH ×4 (07:15→20:27)
[2018-05-04 07:27] LABS: ALBUMIN 2.4 g/dl (3.4-5.0); ALK PHOS 93 U/L (45-117); BILIRUBIN,TOTAL 0.7 mg/dL (0.2-1); BLOOD UREA NITROGEN 23 mg/dL (7-18); CALCIUM 8.3 mg/dL (8.5-10.1); CHLORIDE 97 mmol/L (98-107); CREATININE 0.2 mg/dL (0.55-1.3); GLUCOSE,RANDOM 138 mg/dL (74-106); MAGNESIUM 2.4 mg/dL (1.8-2.4); PHOSPHOROUS 2.4 mg/dL (2.5-4.9); POTASSIUM 3.6 mmol/L (3.5-5.1); SGOT/AST 30 U/L (15-37); SGPT/ALT 52 U/L (13-61); SODIUM 146 mmol/L (136-145); TOT PROT 5.4 g/dl (6.4-8.2)
[2018-05-04 08:32] LABS: ANION GAP 0 MMOL/L (8-16); CO2 49 mmol/L (21-32)
[2018-05-04] MEDS: METOPROLOL TARTRATE 5 MG/5 ML VIAL IVPUSH PRN ×2 (09:47→18:34)
[2018-05-04] MEDS: VANCOMYCIN 1 GRAM (PRE-DOCKED) 1,000 MG/250 ML BAG IVPB SCH ×2 (09:47→21:46)
[2018-05-04] MEDS: FAMOTIDINE 20 MG/50 ML IVPB 20 MG/50 ML MG IVPB SCH ×2 (09:47→21:47)
[2018-05-04] MEDS ORDERED: methylPREDNISolone NA SUCC 40 MG/1 ML VIAL IVPUSH SCH (10:00)
--- NOTE | 2018-05-04 10:04 | PN ---
Progress Note, Physician - Current Medication List Current Medications: Active Medications Acetaminophen (Tylenol -) 650 mg PO Q6H PRN PRN Reason: FEVER Last Admin: 05/02/18 22:40 Dose: 650 mg Alprazolam (Xanax -) 0.5 mg PO BID [facility] Last Admin: 05/03/18 21:07 Dose: 0.5 mg Amino Acids (Prosource No Carb Liquid Pkt) 30 ml PO DAILY [facility] Last Admin: 05/03/18 10:10 Dose: 30 ml Apixaban (Eliquis -) 5 mg PO BID [facility] Chlorhexidine Gluconate (Hibiclens For Decolonization -) 1 applic TP HS [facility] Last Admin: 05/03/18 21:06 Dose: 1 applic Chlorhexidine Gluconate (Peridex -) 15 ml MM BID [facility] Last Admin: 05/03/18 21:06 Dose: Not Given Diltiazem HCl (Cardizem -) 30 mg PO TID [facility] Last Admin: 05/04/18 06:06 Dose: 30 mg Famotidine/Sodium Chloride (Pepcid 20 Mg Premixed Ivpb -) 20 mg in 50 mls @ 100 mls/hr IVPB BID [facility] Last Admin: 05/04/18 09:47 Dose: 100 mls/hr Vancomycin HCl (Vancomycin (Pre-Docked)) 1,000 mg in 250 mls @ 166.667 mls/hr IVPB BID [facility]; Protocol Last Admin: 05/04/18 09:47 Dose: 166.667 mls/hr Diltiazem HCl 125 mg/ Sodium (Chloride) 125 mls @ 5 mls/hr IVPB TITR [facility]; Protocol Last Admin: 05/03/18 13:23 Dose: Not Given Insulin Aspart (Novolog Vial Sliding Scale -) 1 vial SQ ACHS [facility]; Protocol Last Admin: 05/04/18 06:06 Dose: Not Given Ipratropium [place] (Atrovent 0.02% Nebulizer -) 1 amp NEB RQID [facility] Last Admin: 05/04/18 07:15 Dose: 1 amp Methylprednisolone Sodium Succinate (Solu-Medrol -) 30 mg IVPUSH BID [facility] Last Admin: 05/04/18 09:52 Dose: 30 mg Metoprolol Tartrate (Lopressor Injection -) 5 mg IVPUSH Q4H PRN PRN Reason: TACHYCARDIA Last Admin: 05/04/18 09:47 Dose: 5 mg Potassium Phos/Sodium Phos (Phos-Nak Packet -) 1 packet PO DAILY TA Last Admin: 05/03/18 10:10 Dose: 1 packet Sodium Chloride ([place] Nasal [place] -) 2 spray NS BID PRN PRN Reason: NASAL CONGESTION - Objective Vital Signs: Vital Signs Temperature 97.5 F L 05/04/18 10:00 Pulse Rate 81 05/04/18 10:00 Respiratory Rate 21 H 05/04/18 10:00 Blood Pressure 129/71 05/04/18 10:00 O2 Sat by Pulse Oximetry (%) 99 05/04/18 08:50 Cardiovascular: Yes: S1, S2 Respiratory: Yes: On BiPap Gastrointestinal: Yes: Normal Bowel Sounds, Soft Labs: CBC, BMP 05/04/18 05:30 05/04/18 05:30 INR, PTT INR 1.14 (0.83-1.09) H 04/27/18 08:31 Problem List - Problems (1) Acute and chronic respiratory failure with hypercapnia Assessment/Plan: Extubated--on bipap pulm on board oxygen bronchodilators retaining Code(s): J96.22 - ACUTE AND CHRONIC RESPIRATORY FAILURE WITH HYPERCAPNIA (2) Anemia Assessment/Plan: Monitor 04/29/18 04/30/18 05:30 05:30 Hgb 9.4 L 10.6 L Code(s): D64.9 - ANEMIA, UNSPECIFIED Qualifiers: Anemia type: unspecified type Qualified Code(s): D64.9 - Anemia, unspecified (3) COPD (chronic obstructive pulmonary disease) Assessment/Plan: -Nebs -steroids Code(s): J44.9 - CHRONIC OBSTRUCTIVE PULMONARY DISEASE, UNSPECIFIED Qualifiers: COPD type: unspecified COPD Qualified Code(s): J44.9 - Chronic obstructive pulmonary disease, unspecified (4) MRSA bacteremia Assessment/Plan: Abx per id--Vanco isolation ID consult and follow up noted LUBNA done no vegetation Code(s): R78.81 - BACTEREMIA (5) Nasal hemorrhage Code(s): R04.0 - EPISTAXIS (6) Afib Assessment/Plan: On Lovenox -had rapid hr last night--responded to meds --Monitor -Cardio on board Code(s): I48.91 - UNSPECIFIED ATRIAL FIBRILLATION
--- NOTE | 2018-05-04 10:05 | CONSULT ---
Admitting History and Physical - Primary Care Physician PCP: Jhoana Tiwari - Admission History of Present Illness: Patient is a 67 yo M with history of COPD on home oxygen (3L), Interstitial lung disease, HTN, HLD, CHF, diastolic LV dysfunction, [place], CAD, GERD, hiatal hernia, recent dx of Afib with RVR on Eliquis (last dose 04/22 AM), presenting to the ER with a complaint of epistaxis, hypotension and tachycardia. Now admitted to ICU for septic shock. Pt was recently admitted for MRSA bacteremia Extubated 04/29. on BIPAP. NGT feedings stated 05/02. NGT feedings now held, checking placement. Selected Entries 05/03/18 05/03/18 05/03/18 00:00 02:00 06:00 Supper Temperature 98 F 97.2 F L 97.4 F L 05/03/18 05/03/18 05/03/18 10:00 14:35 20:51 Supper Temperature 98.2 F 97.6 F 05/03/18 05/04/18 05/04/18 23:00 06:00 08:00 Supper Temperature 98.5 F 97.6 F 98.7 F 05/04/18 10:00 Supper Temperature 97.5 F L Laboratory Tests 05/02/18 05/03/18 05/04/18 05:30 05:30 05:30 WBC 5.6 7.4 11.0 H This is my first consult with this pt. History Source: Medical Record Limitations to Obtaining History: Clinical Condition - Past Medical History Cardiovascular: Yes: AFIB (paroxysmal), CAD, CHF (end diastlic), HTN, Hyperlipdemia, Pulmonary Hypertension Pulmonary: Yes: COPD (home oxygen), O2 Dependent, Previously Intubated ( intubated one time several years ago for respiratory failure), Other ( Interstitial lung disease and lung mass) Gastrointestinal: Yes: Diverticulosis, GERD, Other (descending colon polyp excised 08/11) Renal/: Yes: Renal Calculi, UTI Infectious Disease: Yes: MRSA (current bacteremia), Other (known history of MAC , 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) Psych: Yes: Anxiety Endocrine: Yes: Hypothyroidism (euthyroid sick syndrome) - Past Surgical History Past Surgical History: Yes: None - Advance Directives Advance Directives: Yes: Health Care Proxy - Smoking History Smoking history: Former smoker Have you smoked in the past 12 months: No Aproximately how many cigarettes per day: 40 If you are a former smoker, when did you quit?: quit 10 years ago - Alcohol/Substance Use Hx Alcohol Use: Yes (a couple beers a month) History of Substance Use: reports: None - Social History ADL: Independent 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 History of Recent Travel: No History - Admission Reason For Visit: EPISTAXIS, FEVER, TACHYCARDIA, HYPOTENSION - Diagnostics X-ray: Report Reviewed - General Mental Status: Awake and Alert, Able to Follow Commands Attention: Distractible, Mild Impairment Ability to Follow Directions: Fair Head/Neck Control: Fair - Hearing Hearing: Functional Speech Evaluation - Communication Primary Language: IRISH Oral Expression Ability: Yes: Mild Impairment - Speech Production Able to Make Needs Known: Yes: Mildly Impaired Intelligibility: Yes: Mildly Impaired - Speech Characteristics Voice Loudness: Mildly Soft/Quiet Voice Pitch: Yes: Mildly High Voice Phonatory-based Quality: Yes: Hoarse, Dysphonia (mild) Speech Clarity: < 100% Nasal Resonance: Normal Articulation: Yes: Precise - Language/Auditory Comprehension Follows: Yes: 1 Stage Simple Commands - Swallow Evaluation/Bedside Assessment Current Nutritional Intake: NG Tube Dentition: Yes: Adequate Facial Symmetry at Rest: Symmetrical Facial Symmetry on Retraction: Symmetrical Jaw Position: Open at Rest Lingual Movement: Symmetric Velopharyngeal Movement: Normal Laryngeal Movement: Reduced Excursion, Labored,delay initiation, Reduced Velocity Bolus Size: Small Labial Seal: WFL Oral Prep Time: Increased A-P Transit: Impaired Timing of Swallow: Delayed Coughing/Throat Clear: No Change in Voice: No Recommendations - Speech Evaluation, Impression/Plan Impression: h/o intubations . Extubated 04/29.NGT 05/02. Mild vocal hoarseness. Desaturates without BIPAP, CO2 retention. Swallow reflex is quite weak. Very labored initiation of laryngeal swallow, with reduced excursion and VOM. Pt given 3 1/2 tsp of applesauce. Refused other trials. Likely stasis in pharynx with risk of aspiration. - Dysphagia Impressions/Plan Swallowing Skills: Impaired Dysphagia Impressions: Moderate Impairment, Suspect Aspiration *Silent aspiration: cannot be R/O at bedside - Recommendations Diet Consistency: NPO, Other (To reassess as pt is better able to tolerate Hi- Jin)
[2018-05-04 10:56] LABS: ANISOCYTOSIS 1+; MACROCYTOSIS 1+; PLATELET ESTIMATE DECREASED
[2018-05-04] MEDS: CHLORHEXIDINE GLUCONATE 0.12% 15ML CUP MM SCH ×2 (11:00→21:48)
[2018-05-04] MEDS: APIXABAN 5 MG TABLET PO SCH ×2 (11:00→21:40)
[2018-05-04] MEDS: AMINO ACIDS/PROTEIN HYDROLYS 30 ML LIQUID.PKT PO SCH (11:00)
[2018-05-04] MEDS: NAPH,MB-DB/K PH,MBDB POWDER PACKET PO SCH (11:00)
[2018-05-04] MEDS: ALPRAZolam 0.25 MG TABLET PO SCH ×2 (11:01→21:40)
[2018-05-04] MEDS: DILTIAZEM INJECTION 125 MG in SODIUM CHLORIDE 100 ML IVPB SCH ×2 (11:10→14:07)
[2018-05-04] MEDS ORDERED: dilTIAZem HCL 125 MG/25 ML - 25 ML VIAL ONE (11:12)
[2018-05-04] MEDS ORDERED: dilTIAZem HCL 50 MG/10 ML - 10 ML VIAL ONE (11:12)
[2018-05-04] MEDS ORDERED: dilTIAZem HCL 50 MG/10 ML - 10 ML VIAL IVPUSH ONE (11:55)
--- NOTE | 2018-05-04 12:23 | PN ---
Physical Exam: SUBJECTIVE: Patient seen and examined on Bipap, alert OBJECTIVE: Vital Signs Period Temp Pulse Resp BP Sys/Morgan Pulse Ox Last 24 Hr 97.5 F-98.7 F 65-168 15-28 104-155/54-98 96-100 GENERAL: The patient is awake, alert, and fully oriented, in no acute distress. HEAD: Normal with no signs of trauma. EYES: PERRLA ENT: moist mucous membranes. NECK: Trachea midline LUNGS: slightly coarse breath sounds bilaterally, + expiratory wheeze, no crackles, no accessory muscle use. HEART: Regular rate and rhythm, S1, S2 without murmur, rub or gallop. ABDOMEN: Soft, nontender, nondistended, normoactive bowel sounds, no guarding, no rebound, no hepatosplenomegaly, no masses. EXTREMITIES: 2+ pulses, warm, well-perfused, no edema. NEUROLOGICAL: Cranial nerves II through XII grossly intact. Normal speech, gait not observed. PSYCH: Normal mood, normal affect. SKIN: Warm, dry, normal turgor, no rashes or lesions noted Laboratory Results - last 24 hr 05/03/18 05/03/18 05/03/18 12:15 16:09 21:48 WBC RBC Hgb Hct MCV MCH MCHC RDW Plt Count MPV Absolute Neuts (auto) Neutrophils % Lymphocytes % Monocytes % Eosinophils % Basophils % Nucleated RBC % Anticoagulation Therapy Puncture Site ABG pH ABG pCO2 at Pt Temp ABG pO2 at Pt Temp ABG HCO3 ABG O2 Sat (Measured) ABG O2 Content ABG Base Excess Pardeep Test O2 Delivery Device Oxygen Flow Rate Vent Mode Vent Rate Mechanical Rate Pressure Support Vent Sodium Potassium Chloride Carbon Dioxide Anion Gap BUN Creatinine Creat Clearance w eGFR POC Glucometer 174.34938 148.44183 161.25520 Random Glucose Calcium Phosphorus Magnesium Total Bilirubin AST ALT Alkaline Phosphatase Total Protein Albumin 05/04/1818 05/04/18 05:30 05:30 05:30 WBC 11.0 H RBC 3.37 L Hgb 10.1 L Hct 32.2 L MCV 95.5 MCH 30.0 MCHC 31.4 L RDW 16.4 H Plt Count 109 L MPV 9.2 Absolute Neuts (auto) 10.7 H Neutrophils % 96.5 H Lymphocytes % 0.8 L Monocytes % 2.3 L Eosinophils % 0.0 Basophils % 0.4 Nucleated RBC % 0 Anticoagulation Therapy No Result Required. Puncture Site Right radial ABG pH 7.38 ABG pCO2 at Pt Temp 78.4 H* D ABG pO2 at Pt Temp 122.0 H ABG HCO3 45.3 H* ABG O2 Sat (Measured) 98.5 ABG O2 Content 11.2 L ABG Base Excess 18.0 H* Pardeep Test Positive O2 Delivery Device Bipap Oxygen Flow Rate 50% Vent Mode No Result Required. Vent Rate 15 Mechanical Rate No Result Required. Pressure Support Vent No Result Required. Sodium 146 H Potassium 3.6 Chloride 97 L Carbon Dioxide 49 H Anion Gap 0 L BUN 23 H Creatinine 0.2 L Creat Clearance w eGFR > 60 POC Glucometer Random Glucose 138 H Calcium 8.3 L Phosphorus 2.4 L Magnesium 2.4 Total Bilirubin 0.7 AST 30 ALT 52 Alkaline Phosphatase 93 Total Protein 5.4 L Albumin 2.4 L Active Medications Generic Name Dose Route Start Last Admin Trade Name Freq PRN Reason Stop Dose Admin Acetaminophen 650 mg 04/23/18 13:40 05/02/18 22:40 Tylenol - PO 650 mg Q6H PRN Administration FEVER Alprazolam 0.5 mg 05/02/18 10:00 05/04/18 11:01 Xanax - PO 0.5 mg BID TA Administration Amino Acids 30 ml 04/28/18 15:00 05/04/18 11:00 Prosource No Carb Liquid Pkt PO 30 ml DAILY TA Administration Apixaban 5 mg 05/04/18 10:00 05/04/18 11:00 Eliquis - PO 5 mg BID TA Administration Chlorhexidine Gluconate 1 applic 04/23/18 22:00 05/03/18 21:06 Hibiclens For Decolonization - TP 1 applic HS TA Administration Chlorhexidine Gluconate 15 ml 04/25/18 22:00 05/04/18 11:00 Peridex - MM 15 ml BID TA Administration Diltiazem HCl 30 mg 04/28/18 22:00 05/04/18 06:06 Cardizem - PO 30 mg TID TA Administration Famotidine/Sodium Chloride 20 mg in 50 mls @ 100 mls/hr 04/24/18 10:00 09:47 Pepcid 20 Mg Premixed Ivpb - IVPB 100 mls/hr BID TA Administration Vancomycin HCl 1,000 mg in 250 mls @ 166.667 mls/hr 04/28/18 10:00 05/04/18 09:47 Vancomycin (Pre-Docked) IVPB 166.667 mls/hr BID TA Administration Protocol Diltiazem HCl 125 mg/ Sodium 125 mls @ 5 mls/hr 04/29/18 12:45 05/04/18 11:10 Chloride IVPB 10 mg/hr TITR TA 10 mls/hr Administration Protocol 5 MG/HR Insulin Aspart 1 vial 04/24/18 11:00 05/04/18 11:35 Novolog Vial Sliding Scale - SQ 2 units ACHS TA Administration Protocol Ipratropium [place] 1 amp 04/27/18 12:00 05/04/18 11:23 Atrovent 0.02% Nebulizer - NEB 1 amp RQID TA Administration Methylprednisolone Sodium Succinate 60 mg 05/04/18 11:45 Solu-Medrol - IVPUSH BID TA Metoprolol Tartrate 5 mg 04/27/18 14:35 05/04/18 09:47 Lopressor Injection - IVPUSH 5 mg Q4H PRN Administration TACHYCARDIA Potassium Phos/Sodium Phos 1 packet 05/02/18 10:00 05/04/18 11:00 Phos-Nak Packet - PO 1 packet DAILY TA Administration Sodium Chloride 2 spray 04/29/18 09:00 [place] Lilly Nasal Lilly - NS BID PRN NASAL CONGESTION Valsartan 20 mg 05/05/18 10:00 Diovan - PO DAILY TA ASSESSMENT/PLAN: Patient is a 67 yo M with history of COPD on home oxygen (3L), Interstitial lung disease, HTN, HLD, CHF, diastolic LV dysfunction, [place], CAD, GERD, hiatal hernia, recent dx of Afib with RVR on Eliquis (last dose 04/22 AM), presenting to the ER with a complaint of epistaxis, hypotension and tachycardia. Now admitted to ICU for septic shock. Pt was recently admitted for MRSA bacteremia ID Septic Shock -likely 2/2 urosepsis - ID following case - source of sepsis likely urine as UA: +leuk esterase, + wbc - blood and urine culture neg, sputum culture with gram negative bacilli - CT scan chest/abd/pelvis (04/25) : L upper air filled cavity in L upper chest , R upper fluid structure(possible abscess) - unchanged from 04/01 - Keep MAP> 65 - femoral line removed, picc line removed - on methylprednisone 60mg IVP BID, increased today from yest due to notedwheeze on auscultation MRSA Bacteremia with suspicion of endocarditis, last admission - LUBNA completed (04/27) - LVEF 60-65%, moderate mitral valve prolapse, severe mitral regurgitation, mild tricuspid regurg, mild aortic regurg, mild aortic sclerosis, no vegetation - MRSA bacteremia-day #35 MRSA treatment plan total 42 days - antibiotics as per ID: vancomycin started (04/27) Heme Acute blood loss, normocytic anemia, likely 2/2 epistaxis, required 2pRBC ( resolved) - Tranfusion goal of Hb > 8 - nasal packing removed (04/27) w/o complications - ENT following (Dr. Clarke) - keep head end elevated Thrombocytopenia, baseline around 130-140 and since 03/02/18 has been decreasing to 80s, likely 2/2 sepsis and antibiotics (resolved) - Heme consulted, following case, thrombocytopenia thought to be 2/2 MRSA bacteremia Epistaxis from the L nares (resolved) - L nasal packing done in ED, ENT consulted ENT recommends nasal packing until Thursday - nasal packing removed (04/27) w/o complications - nasal saline spray bid, observe for bleeding Cardiac Diastolic LV dysfunc, CHF, phx [place], CAD, Afib w/ RVR - Last ECHO (03/31/18) - normal EF, L ventricular function normal, severe MR, moderate TR - Tele monitoring - Continue lipitor - Trop: neg - cardizem gtt, lopressor IVP, cardizem 30mg TID - Cardiology following HTN - hypotensive 2/2 septic shock - pt w/ sbp 130-140s - home valsartan restarted at half of home dose Afib - Eliquis resumed today. - [id number] score of 3 - if recurrent arrythmia consider antiarrhythmics/amiodarone Pulm COPD, uses 3L home oxygen continue 3L of oxygen, patient intubated - CXR daily - CXR: RUL fluid collection (possible abscess), LINDSEY air collection unchanged from 04/01/18 - Per ID: plan for biopsy/drainage of RUL collection when extubated - Ipratroprium neb - Ventimask / Bipap as needed Ortho Bilateral femoral head avascular necrosis - noted on CT abd/pelvis (04/25) - Ortho following case, Dr. Baez - No orthopedic intervention 2/2 medical status F/E/N - Tube feeds - Electrolytes trend - Diabetic diet - sher cath PPX DVT: pt on eliquis for Afib GI: pepcid BID Lines, Tubes: sher, PIV Code Status: full code Dispo: transfer to Tele, w/ Tele to tele transfer to [place], as patient is followed by Dr. Gaitan. Visit type - Emergency Visit Emergency Visit: No - New Patient This patient is new to me today: No - Critical Care Critical Care patient: No
--- NOTE | 2018-05-04 12:24 | PN ---
Progress Note, Physician Chief Complaint: Events noted Awake but a little lethargic this am due to hypercapnea. Currently back on BIPAP Remains in sinus rhythm, but still has episodes of AF with RVR History of Present Illness: Patient was seen and examined in ICU. Awake and alert. Chart was reviewed BIPAP - Current Medication List Current Medications: Active Medications Acetaminophen (Tylenol -) 650 mg PO Q6H PRN PRN Reason: FEVER Last Admin: 05/02/18 22:40 Dose: 650 mg Alprazolam (Xanax -) 0.5 mg PO BID [facility] Last Admin: 05/04/18 11:01 Dose: 0.5 mg Amino Acids (Prosource No Carb Liquid Pkt) 30 ml PO DAILY [facility] Last Admin: 05/04/18 11:00 Dose: 30 ml Apixaban (Eliquis -) 5 mg PO BID [facility] Last Admin: 05/04/18 11:00 Dose: 5 mg Chlorhexidine Gluconate (Hibiclens For Decolonization -) 1 applic TP HS [facility] Last Admin: 05/03/18 21:06 Dose: 1 applic Chlorhexidine Gluconate (Peridex -) 15 ml MM BID [facility] Last Admin: 05/04/18 11:00 Dose: 15 ml Diltiazem HCl (Cardizem -) 30 mg PO TID [facility] Last Admin: 05/04/18 06:06 Dose: 30 mg Famotidine/Sodium Chloride (Pepcid 20 Mg Premixed Ivpb -) 20 mg in 50 mls @ 100 mls/hr IVPB BID [facility] Last Admin: 05/04/18 09:47 Dose: 100 mls/hr Vancomycin HCl (Vancomycin (Pre-Docked)) 1,000 mg in 250 mls @ 166.667 mls/hr IVPB BID [facility]; Protocol Last Admin: 05/04/18 09:47 Dose: 166.667 mls/hr Diltiazem HCl 125 mg/ Sodium (Chloride) 125 mls @ 5 mls/hr IVPB TITR [facility]; Protocol Last Admin: 05/04/18 11:10 Dose: 10 mg/hr, 10 mls/hr Insulin Aspart (Novolog Vial Sliding Scale -) 1 vial SQ ACHS [facility]; Protocol Last Admin: 05/04/18 11:35 Dose: 2 units Ipratropium [place] (Atrovent 0.02% Nebulizer -) 1 amp NEB RQID [facility] Last Admin: 05/04/18 11:23 Dose: 1 amp Methylprednisolone Sodium Succinate (Solu-Medrol -) 60 mg IVPUSH BID [facility] Metoprolol Tartrate (Lopressor Injection -) 5 mg IVPUSH Q4H PRN PRN Reason: TACHYCARDIA Last Admin: 05/04/18 09:47 Dose: 5 mg Potassium Phos/Sodium Phos (Phos-Nak Packet -) 1 packet PO DAILY [facility] Last Admin: 05/04/18 11:00 Dose: 1 packet Sodium Chloride ([place] Nasal [place] -) 2 spray NS BID PRN PRN Reason: NASAL CONGESTION Valsartan (Diovan -) 20 mg PO DAILY [facility] - Objective Vital Signs: Vital Signs Temperature 97.5 F L 05/04/18 10:00 Pulse Rate 88 05/04/18 11:42 Respiratory Rate 20 05/04/18 11:42 Blood Pressure 115/67 05/04/18 11:42 O2 Sat by Pulse Oximetry (%) 99 05/04/18 11:24 HENT: Yes: Atraumatic Neck: Yes: Supple Cardiovascular: Yes: Regular Rate and Rhythm, S1, S2 Respiratory: Yes: Diminished, On BiPap Gastrointestinal: Yes: Normal Bowel Sounds, Soft. No: Tenderness Edema: No Labs: CBC, BMP 05/04/18 05:30 05/04/18 05:30 Problem List - Problems (1) MRSA bacteremia Code(s): R78.81 - BACTEREMIA (2) Mitral valve anterior leaflet prolapse Code(s): I34.1 - NONRHEUMATIC MITRAL (VALVE) PROLAPSE (3) Moderate to severe mitral regurgitation Code(s): I34.0 - NONRHEUMATIC MITRAL (VALVE) INSUFFICIENCY (4) Acute and chronic respiratory failure Code(s): J96.20 - ACUTE AND CHR RESP FAILURE, UNSP W HYPOXIA OR HYPERCAPNIA Qualifiers: Respiratory failure complication: hypoxia and hypercapnia Qualified Code(s) : J96.21 - Acute and chronic respiratory failure with hypoxia; J96.22 - Acute and chronic respiratory failure with hypercapnia (5) Acute and chronic respiratory failure with hypercapnia Code(s): J96.22 - ACUTE AND CHRONIC RESPIRATORY FAILURE WITH HYPERCAPNIA (6) Arteriosclerotic heart disease (ASHD) Code(s): I25.10 - ATHSCL HEART DISEASE OF [place] CORONARY ARTERY W/O ANG PCTRS (7) CHF (congestive heart failure) Code(s): I50.9 - HEART FAILURE, UNSPECIFIED (8) COPD (chronic obstructive pulmonary disease) Code(s): J44.9 - CHRONIC OBSTRUCTIVE PULMONARY DISEASE, UNSPECIFIED Qualifiers: COPD type: unspecified COPD Qualified Code(s): J44.9 - Chronic obstructive pulmonary disease, unspecified (9) Diastolic dysfunction Code(s): I51.9 - HEART DISEASE, UNSPECIFIED (10) Elevated troponin Code(s): R74.8 - ABNORMAL LEVELS OF OTHER SERUM ENZYMES (11) Hyperlipidemia Code(s): E78.5 - HYPERLIPIDEMIA, UNSPECIFIED Qualifiers: Hyperlipidemia type: pure hypercholesterolemia Qualified Code(s): E78.00 - Pure hypercholesterolemia, unspecified; E78.0 - Pure hypercholesterolemia (12) MRSA (methicillin resistant Staphylococcus aureus) colonization Code(s): Z22.322 - CARRIER OR SUSPECTED CARRIER OF METHICILLIN RESIS STAPH (13) Paroxysmal atrial fibrillation with rapid ventricular response Code(s): I48.0 - PAROXYSMAL ATRIAL FIBRILLATION (14) Sepsis Code(s): A41.9 - SEPSIS, UNSPECIFIED ORGANISM Assessment/Plan 1. Acute on Chronic Hypoxic and Hypercapneic Respiratory Failure 2. Acute on chronic class II-III NYHA classification LV diastolic failure referable to underlying posterior directed moderate-severe MR due to anterior MV prolapse 3. 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 Sepsis syndrome, history of MRSA bacteremia of unclear source, with splenic infarct 5. Advanced chronic obstructive pulmonary disease on home oxygen therapy with Pulmonary HTN 6. Epistaxis, prior history requiring intervention, nasal packing in situ 7. Anemia related to above and in addition thrombocytopenia 8. Paroxysmal atrial fibrillation with [id number] score of 2 9. HTN 10. 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 UTI PLAN: 1. Continue PO Cardizem and uptitrate 2. Continue Diovan as tolerated 3. Back on Eliquis 5 mg BID 4. Consider diuretics - Furosemide as needed 5. Resume Lipitor 10 mg QHS when feasible 6. Monitor Hgb and transfuse as needed to maintain Hgb equal or > 8.0 7. Bronchodilator, IV steroids, antibiotics course as per ID service 8. Further evaluation for MVP and MR and probable surgical repair will need to be done at some point when he is clinically stable. Alphonse Mares MD
--- NOTE | 2018-05-04 15:21 | PN ---
Teaching Attending Note Name of Resident: Candida Parnell ATTENDING PHYSICIAN STATEMENT I saw and evaluated the patient. I reviewed the resident's note and discussed the case with the resident. I agree with the resident's findings and plan as documented. SUBJECTIVE: Patient seen and examined in the ICU. Remains extubated. Moderately tachypneic on VM O2. P. AFib requiring IV Cardizem drip. No pressors. No CP. Intake & Output 05/01/18 05/02/18 05/03/18 05/04/18 23:59 23:59 23:59 23:59 Intake Total 752 871 0674 1200 Output Total 1200 1300 1075 900 Balance -386 -345 162 300 Weight 135 lb 9.349 oz 136 lb 10.986 oz 137 lb 12.623 oz 138 lb 3.677 oz Last Vital Signs Temp Pulse Resp BP Pulse Ox 97.3 F L 67 24 H 121/63 96 05/04/18 14:06 05/04/18 14:30 05/04/18 14:06 05/04/18 14:07 05/04/18 14:30 Active Medications Acetaminophen (Tylenol -) 650 mg PO Q6H PRN PRN Reason: FEVER Last Admin: 05/02/18 22:40 Dose: 650 mg Alprazolam (Xanax -) 0.5 mg PO BID [facility] Last Admin: 05/04/18 11:01 Dose: 0.5 mg Amino Acids (Prosource No Carb Liquid Pkt) 30 ml PO DAILY [facility] Last Admin: 05/04/18 11:00 Dose: 30 ml Apixaban (Eliquis -) 5 mg PO BID [facility] Last Admin: 05/04/18 11:00 Dose: 5 mg Chlorhexidine Gluconate (Hibiclens For Decolonization -) 1 applic TP HS [facility] Last Admin: 05/03/18 21:06 Dose: 1 applic Chlorhexidine Gluconate (Peridex -) 15 ml MM BID [facility] Last Admin: 05/04/18 11:00 Dose: 15 ml Diltiazem HCl (Cardizem -) 30 mg PO TID [facility] Last Admin: 05/04/18 06:06 Dose: 30 mg Famotidine/Sodium Chloride (Pepcid 20 Mg Premixed Ivpb -) 20 mg in 50 mls @ 100 mls/hr IVPB BID [facility] Last Admin: 05/04/18 09:47 Dose: 100 mls/hr Vancomycin HCl (Vancomycin (Pre-Docked)) 1,000 mg in 250 mls @ 166.667 mls/hr IVPB BID [facility]; Protocol Last Admin: 05/04/18 09:47 Dose: 166.667 mls/hr Diltiazem HCl 125 mg/ Sodium (Chloride) 125 mls @ 5 mls/hr IVPB TITR [facility]; Protocol Last Titration: 05/04/18 14:07 Dose: 5 mg/hr, 5 mls/hr Insulin Aspart (Novolog Vial Sliding Scale -) 1 vial SQ ACHS [facility]; Protocol Last Admin: 05/04/18 11:35 Dose: 2 units Ipratropium [place] (Atrovent 0.02% Nebulizer -) 1 amp NEB RQID [facility] Last Admin: 05/04/18 11:23 Dose: 1 amp Methylprednisolone Sodium Succinate (Solu-Medrol -) 60 mg IVPUSH BID [facility] Metoprolol Tartrate (Lopressor Injection -) 5 mg IVPUSH Q4H PRN PRN Reason: TACHYCARDIA Last Admin: 05/04/18 09:47 Dose: 5 mg Potassium Phos/Sodium Phos (Phos-Nak Packet -) 1 packet PO DAILY [facility] Last Admin: 05/04/18 11:00 Dose: 1 packet Sodium Chloride ([place] Nasal [place] -) 2 spray NS BID PRN PRN Reason: NASAL CONGESTION Valsartan (Diovan -) 20 mg PO DAILY [facility] Gen: Mildly to moderately tachypneic on VM O2 Heart: tachycardic, irregular Lung: scattered rhonchi Abd: soft, nontender Ext: no edema ASSESSMENT AND PLAN: Acute on Chronic Hypoxic and Hypercapneic Respiratory Failure UTI Septic Shock Lactic Acidosis Epistaxis Acute on Chronic Diastolic Heart Failure Severe Mitral Regurgitation Thrombocytopenia CAD COPD Pulmonary HTN Paroxysmal Atrial Fibrillation HTN Hypercholesterolemia Endocarditis ruled out - Place back on NIPPV to decrease WOB - ABX per ID - monitor urine output, creatinine - monitor CBC - AC - Increase Medrol - inhaled bronchodilators - O2 to keep SpO2 88% to 92% - DVT/GI prophylaxis - Patient being evaluate for possible transfer to [place] - ICU monitoring due to tenuous respiratory status Dr Donovan Critical care time spent in reviewing chart, evaluating patient and formulating plan 35 min
--- NOTE | 2018-05-04 16:12 | PN ---
Progress Note (short form) - Note Progress Note: remains on bipap alert, no complaints Vital Signs Vital Signs Period Temp Pulse Resp BP Sys/Morgan Pulse Ox Last 24 Hr 97.3 F-98.7 F 65-168 15-24 104-145/60-99 91-100 cor-rrr lungs decreased bs at bases abd soft,nt ext no edema +ecchymoses CBC, BMP 05/04/18 05:30 05/04/18 05:30 Microbiology 04/23/18 11:30 Blood - Peripheral Venous Blood Culture - Final Campylobacter Gracilis 04/28/18 12:27 Blood - Peripheral Venous Blood Culture - Final NO GROWTH AFTER 5 DAYS INCUBATION 04/28/18 12:46 Blood - Peripheral Venous Blood Culture - Final NO GROWTH AFTER 5 DAYS INCUBATION 04/23/18 12:52 Blood - Peripheral Venous Blood Culture - Final NO GROWTH AFTER 5 DAYS INCUBATION 04/24/18 18:00 Sputum - Endotrachea Suction/Ventilator Gram Stain - Final 04/24/18 18:00 Sputum - Endotrachea Suction/Ventilator Sputum Culture - Final Enterobacter Aerogenes 04/26/18 10:00 Urine - Urine Bowling Legionella Antigen - Final 04/26/18 10:00 Urine - Urine Bowling Streptococcus pneumoniae Antigen (M - Final 04/23/18 13:00 Urine - Urine Clean Catch Urine Culture - Final NO GROWTH OBTAINED moderate to severe MR on LUBNA- no vegetation vanco trough 16.6 a/p FUO respiratory failure-now on bipap MRSA bacteremia-day #36 MRSA treatment plan total 42 days LUBNA no vegetations-severe mitral regurgitation thrombocytopenia-platelets are recovering endstage COPD afib with RVR apical lung mass? suspect transient campylobacter gracilis bacteremia- one bottle-just identified today - got 4 days meropenem, repeat blood cultures negative continue vancomycin, trough acceptable overall prognosis is guarded d/w Problem List - Problems (1) Sepsis Code(s): A41.9 - SEPSIS, UNSPECIFIED ORGANISM (2) Epistaxis, recurrent Code(s): R04.0 - EPISTAXIS (3) MRSA bacteremia Code(s): R78.81 - BACTEREMIA
[2018-05-04] MEDS: CHLORHEXIDINE GLUCONATE 4% CLEANSER FOR DECOLONIZATION TP SCH (21:46)
[2018-05-04] MEDS: methylPREDNISolone NA SUCC 40 MG/1 ML VIAL IVPUSH SCH (21:48)
[2018-05-05] MEDS ORDERED: ALPRAZolam 0.25 MG TABLET PO ONE (01:54)
[2018-05-05] MEDS: METOPROLOL TARTRATE 5 MG/5 ML VIAL IVPUSH PRN ×2 (02:07→06:24)
[2018-05-05 05:58] LABS: BASO % 0.3 % (0-2.0); HEMATOCRIT 26.5 % (35.4-49); HEMOGLOBIN 8.4 GM/dL (11.7-16.9); LYMPH % 1.1 % (8-40); MCH 30.1 pg (25.7-33.7); MCHC 31.8 g/dl (32.0-35.9); MEAN CELL VOLUME 94.6 fl (80-96); MEAN PLT VOLUME 9.2 fl (7.5-11.1); MONO % 3.2 % (3.8-10.2); NEUT % 95.4 % (42.8-82.8); PLATELET COUNT 86 K/MM3 (134-434); WHITE BLOOD COUNT 7.3 K/mm3 (4.0-10.0)
[2018-05-05] MEDS: INSULIN SLIDING SCALE (NOVOLOG) 1 VIAL SQ SCH ×4 (06:09→22:09)
[2018-05-05 06:29] LABS: ALBUMIN 2.1 g/dl (3.4-5.0); ALK PHOS 66 U/L (45-117); ANION GAP 5 MMOL/L (8-16); BILIRUBIN,TOTAL 0.7 mg/dL (0.2-1); BLOOD UREA NITROGEN 22 mg/dL (7-18); CALCIUM 7.8 mg/dL (8.5-10.1); CHLORIDE 99 mmol/L (98-107); CO2 45 mmol/L (21-32); CREATININE 0.2 mg/dL (0.55-1.3); GLUCOSE,RANDOM 139 mg/dL (74-106); MAGNESIUM 2.3 mg/dL (1.8-2.4); PHOSPHOROUS 2.5 mg/dL (2.5-4.9); POTASSIUM 3.5 mmol/L (3.5-5.1); SGOT/AST 17 U/L (15-37); SGPT/ALT 46 U/L (13-61); SODIUM 149 mmol/L (136-145); TOT PROT 4.5 g/dl (6.4-8.2)
[2018-05-05] MEDS: DILTIAZEM INJECTION 125 MG in SODIUM CHLORIDE 100 ML IVPB SCH ×2 (07:23→10:30)
[2018-05-05 07:24] LABS: ARTERIAL BLD GAS O2 SATURATION 98.4 % (90-98.9); ARTERIAL BLOOD GAS BASE EXCESS 17.6 meq/l (-2-2); ARTERIAL BLOOD GAS pH 7.41 (7.35-7.45)
[2018-05-05 07:34] LABS: ALLENS TEST POSITIVE
[2018-05-05 07:38] LABS: ARTERIAL BLOOD GAS PCO2 71.3 mmHg (35-45)
[2018-05-05] MEDS: IPRATROPIUM BR 0.02% 0.5 MG/2.5 ML VIAL.NEB. NEB SCH ×2 (08:38→12:00)
[2018-05-05] MEDS ORDERED: VALSARTAN 40 MG TABLET (FP) PO SCH (10:00)
[2018-05-05] MEDS: VANCOMYCIN 1 GRAM (PRE-DOCKED) 1,000 MG/250 ML BAG IVPB SCH ×2 (10:22→21:29)
[2018-05-05] MEDS: APIXABAN 5 MG TABLET PO SCH (10:26)
[2018-05-05] MEDS: AMINO ACIDS/PROTEIN HYDROLYS 30 ML LIQUID.PKT PO SCH (10:26)
[2018-05-05] MEDS: FAMOTIDINE 20 MG/50 ML IVPB 20 MG/50 ML MG IVPB SCH ×2 (10:26→21:29)
[2018-05-05] MEDS: ALPRAZolam 0.25 MG TABLET PO SCH ×2 (10:27→21:31)
[2018-05-05] MEDS: methylPREDNISolone NA SUCC 40 MG/1 ML VIAL IVPUSH SCH ×2 (10:27→21:30)
[2018-05-05] MEDS: NAPH,MB-DB/K PH,MBDB POWDER PACKET PO SCH (10:28)
[2018-05-05] MEDS: CHLORHEXIDINE GLUCONATE 0.12% 15ML CUP MM SCH ×2 (10:40→21:29)
--- NOTE | 2018-05-05 10:50 | PN ---
Progress Note (short form) - Note Progress Note: remains on bipap alert, no complaints back in rapid afib Vital Signs Period Temp Pulse Resp BP Sys/Morgan Pulse Ox Last 24 Hr 97.3 F-98.6 F 58-171 97-148/58-99 96-100 on bipap cor-rrr tachycardic lungs clear abd soft,nt ext ecchymoses CBC, BMP 05/05/18 05:15 05/05/18 05:15 Microbiology 04/23/18 11:30 Blood - Peripheral Venous Blood Culture - Final Campylobacter Gracilis 04/28/18 12:27 Blood - Peripheral Venous Blood Culture - Final NO GROWTH AFTER 5 DAYS INCUBATION 04/28/18 12:46 Blood - Peripheral Venous Blood Culture - Final NO GROWTH AFTER 5 DAYS INCUBATION 04/23/18 12:52 Blood - Peripheral Venous Blood Culture - Final NO GROWTH AFTER 5 DAYS INCUBATION 04/24/18 18:00 Sputum - Endotrachea Suction/Ventilator Gram Stain - Final 04/24/18 18:00 Sputum - Endotrachea Suction/Ventilator Sputum Culture - Final Enterobacter Aerogenes 04/26/18 10:00 Urine - Urine Bowling Legionella Antigen - Final 04/26/18 10:00 Urine - Urine Bowling Streptococcus pneumoniae Antigen (M - Final 04/23/18 13:00 Urine - Urine Clean Catch Urine Culture - Final NO GROWTH OBTAINED moderate to severe MR on LUBNA- no vegetation vanco trough 16.6 -12/3 a/p FUO respiratory failure-now on bipap MRSA bacteremia-day #37 MRSA treatment plan total 42 days-continue vancomycin LUBNA no vegetations-severe mitral regurgitation thrombocytopenia-platelets are recovering endstage COPD afib with RVR apical lung mass? suspect transient campylobacter gracilis bacteremia- one bottle-just identified today - got 4 days meropenem, repeat blood cultures negative continue vancomycin, trough acceptable overall prognosis is guarded Problem List - Problems (1) Sepsis Code(s): A41.9 - SEPSIS, UNSPECIFIED ORGANISM (2) Epistaxis, recurrent Code(s): R04.0 - EPISTAXIS (3) MRSA bacteremia Code(s): R78.81 - BACTEREMIA
--- NOTE | 2018-05-05 11:13 | PN ---
Progress Note, Physician History of Present Illness: Remains on bipap and back PAF->SR on cardizem gtt. Dyspnea improved in SR. - Current Medication List Current Medications: Active Medications Acetaminophen (Tylenol -) 650 mg PO Q6H PRN PRN Reason: FEVER Last Admin: 05/02/18 22:40 Dose: 650 mg Alprazolam (Xanax -) 0.5 mg PO BID [facility] Last Admin: 05/05/18 10:27 Dose: 0.5 mg Amino Acids (Prosource No Carb Liquid Pkt) 30 ml PO DAILY [facility] Last Admin: 05/05/18 10:26 Dose: 30 ml Apixaban (Eliquis -) 5 mg PO BID [facility] Last Admin: 05/05/18 10:26 Dose: 5 mg Chlorhexidine Gluconate (Hibiclens For Decolonization -) 1 applic TP HS [facility] Last Admin: 05/04/18 21:46 Dose: 1 applic Chlorhexidine Gluconate (Peridex -) 15 ml MM BID [facility] Last Admin: 05/05/18 10:40 Dose: 15 ml Diltiazem HCl (Cardizem -) 30 mg PO TID [facility] Last Admin: 05/04/18 06:06 Dose: 30 mg Famotidine/Sodium Chloride (Pepcid 20 Mg Premixed Ivpb -) 20 mg in 50 mls @ 100 mls/hr IVPB BID [facility] Last Admin: 05/05/18 10:26 Dose: 100 mls/hr Vancomycin HCl (Vancomycin (Pre-Docked)) 1,000 mg in 250 mls @ 166.667 mls/hr IVPB BID [facility]; Protocol Last Admin: 05/05/18 10:22 Dose: 166.667 mls/hr Diltiazem HCl 125 mg/ Sodium (Chloride) 125 mls @ 5 mls/hr IVPB TITR [facility]; Protocol Last Admin: 05/05/18 07:23 Dose: 5 mg/hr, 5 mls/hr Insulin Aspart (Novolog Vial Sliding Scale -) 1 vial SQ ACHS [facility]; Protocol Last Admin: 05/05/18 06:09 Dose: Not Given Ipratropium [place] (Atrovent 0.02% Nebulizer -) 1 amp NEB RQID [facility] Last Admin: 05/05/18 08:38 Dose: 1 amp Methylprednisolone Sodium Succinate (Solu-Medrol -) 60 mg IVPUSH BID [facility] Last Admin: 05/05/18 10:27 Dose: 60 mg Metoprolol Tartrate (Lopressor Injection -) 5 mg IVPUSH Q4H PRN PRN Reason: TACHYCARDIA Last Admin: 05/05/18 06:24 Dose: 5 mg Potassium Phos/Sodium Phos (Phos-Nak Packet -) 1 packet PO DAILY [facility] Last Admin: 05/05/18 10:28 Dose: 1 packet Sodium Chloride ([place] Nasal [place] -) 2 spray NS BID PRN PRN Reason: NASAL CONGESTION - Objective Vital Signs: Vital Signs Temperature 97.4 F L 05/05/18 06:00 Pulse Rate 79 05/05/18 10:00 Respiratory Rate 24 H 05/05/18 10:00 Blood Pressure 148/78 05/05/18 10:00 O2 Sat by Pulse Oximetry (%) 97 05/05/18 08:36 Constitutional: Yes: No Distress, Calm, Thin Neck: Yes: Supple Cardiovascular: Yes: Regular Rate and Rhythm, Murmur (2/6 SM) Respiratory: Yes: Diminished, On BiPap Gastrointestinal: Yes: Normal Bowel Sounds, Soft Edema: No Labs: CBC, BMP 05/05/18 05:15 05/05/18 05:15 INR, PTT INR 1.14 (0.83-1.09) H 04/27/18 08:31 - ....Imaging Chest X-ray: Report Reviewed (RUL mass, congestion) EKG: Report Reviewed (Tele: PAF->SR) Problem List - Problems (1) Hypotension Code(s): I95.9 - HYPOTENSION, UNSPECIFIED Qualifiers: Hypotension type: other hypotension type Qualified Code(s): I95.89 - Other hypotension (2) Acute and chronic respiratory failure with hypercapnia Code(s): J96.22 - ACUTE AND CHRONIC RESPIRATORY FAILURE WITH HYPERCAPNIA (3) Anemia Code(s): D64.9 - ANEMIA, UNSPECIFIED Qualifiers: Anemia type: unspecified type Qualified Code(s): D64.9 - Anemia, unspecified (4) COPD (chronic obstructive pulmonary disease) Code(s): J44.9 - CHRONIC OBSTRUCTIVE PULMONARY DISEASE, UNSPECIFIED Qualifiers: COPD type: unspecified COPD Qualified Code(s): J44.9 - Chronic obstructive pulmonary disease, unspecified (5) Diastolic dysfunction Code(s): I51.9 - HEART DISEASE, UNSPECIFIED (6) Epistaxis, recurrent Code(s): R04.0 - EPISTAXIS (7) Hyperlipidemia Code(s): E78.5 - HYPERLIPIDEMIA, UNSPECIFIED Qualifiers: Hyperlipidemia type: pure hypercholesterolemia Qualified Code(s): E78.00 - Pure hypercholesterolemia, unspecified; E78.0 - Pure hypercholesterolemia (8) Hyperthyroidism Code(s): E05.90 - THYROTOXICOSIS, UNSP WITHOUT THYROTOXIC CRISIS OR STORM (9) Paroxysmal A-fib Code(s): I48.0 - PAROXYSMAL ATRIAL FIBRILLATION (10) Mitral valve anterior leaflet prolapse Code(s): I34.1 - NONRHEUMATIC MITRAL (VALVE) PROLAPSE (11) Moderate to severe mitral regurgitation Code(s): I34.0 - NONRHEUMATIC MITRAL (VALVE) INSUFFICIENCY Assessment/Plan 04/27/2018 Moderate to severe MR with posteriorly directed eccentric jet due to anterior mitral valve prolapse, mild TR and normal LV systolic function. There were no vegetations. Small pericardial effusion may be seen 1. Acute on Chronic Hypoxic and Hypercapneic Respiratory Failure 2. Acute on chronic class II-III NYHA classification LV diastolic failure referable to underlying posterior directed moderate-severe MR due to anterior MV prolapse 3. 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 Sepsis syndrome, history of MRSA bacteremia of unclear source, with splenic infarct, #37 MRSA treatment plan total 42 days-continue vancomycin 5. Advanced chronic obstructive pulmonary disease on home oxygen therapy with Pulmonary HTN 6. Epistaxis, prior history requiring intervention, nasal packing in situ 7. Anemia related to above and in addition thrombocytopenia 8. Paroxysmal atrial fibrillation with [id number] score of 2 now in SR 9. HTN 10. 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 UTI 13. Right apical lung mass? PLAN: 1. Wean Cardizem gtt->Cardizem 30 qid and uptitrate, IV Lopressor as needed for rate-control, short course of amio if afib recurs 2. Resume Diovan as tolerated 3. Continue Eliquis 5 mg BID 4. Consider diuretics - Furosemide as needed 5. Resume Lipitor 10 mg QHS when feasible 6. Monitor Hgb and transfuse as needed to maintain Hgb equal or > 8.0 7. Bronchodilator, IV steroids, antibiotics course as per ID service 8. Further evaluation for MVP and MR and probable surgical repair will need to be done at some point when he is clinically stable.
[2018-05-05 12:13] LABS: ANISOCYTOSIS 1+; MACROCYTOSIS 1+; OVALOCYTE 1+; PLATELET ESTIMATE DECREASED
--- NOTE | 2018-05-05 12:27 | PN ---
Progress Note, Physician - Current Medication List Current Medications: Active Medications Acetaminophen (Tylenol -) 650 mg PO Q6H PRN PRN Reason: FEVER Last Admin: 05/02/18 22:40 Dose: 650 mg Alprazolam (Xanax -) 0.5 mg PO BID [facility] Last Admin: 05/05/18 10:27 Dose: 0.5 mg Amino Acids (Prosource No Carb Liquid Pkt) 30 ml PO DAILY [facility] Last Admin: 05/05/18 10:26 Dose: 30 ml Apixaban (Eliquis -) 5 mg PO BID [facility] Last Admin: 05/05/18 10:26 Dose: 5 mg Chlorhexidine Gluconate (Hibiclens For Decolonization -) 1 applic TP HS [facility] Last Admin: 05/04/18 21:46 Dose: 1 applic Chlorhexidine Gluconate (Peridex -) 15 ml MM BID [facility] Last Admin: 05/05/18 10:40 Dose: 15 ml Diltiazem HCl (Cardizem -) 30 mg PO TID [facility] Last Admin: 05/04/18 06:06 Dose: 30 mg Famotidine/Sodium Chloride (Pepcid 20 Mg Premixed Ivpb -) 20 mg in 50 mls @ 100 mls/hr IVPB BID [facility] Last Admin: 05/05/18 10:26 Dose: 100 mls/hr Vancomycin HCl (Vancomycin (Pre-Docked)) 1,000 mg in 250 mls @ 166.667 mls/hr IVPB BID [facility]; Protocol Last Admin: 05/05/18 10:22 Dose: 166.667 mls/hr Diltiazem HCl 125 mg/ Sodium (Chloride) 125 mls @ 5 mls/hr IVPB TITR [facility]; Protocol Last Admin: 05/05/18 10:30 Dose: 10 mg/hr, 10 mls/hr Insulin Aspart (Novolog Vial Sliding Scale -) 1 vial SQ ACHS [facility]; Protocol Last Admin: 05/05/18 11:47 Dose: 2 units Ipratropium [place] (Atrovent 0.02% Nebulizer -) 1 amp NEB RQID [facility] Last Admin: 05/05/18 08:38 Dose: 1 amp Methylprednisolone Sodium Succinate (Solu-Medrol -) 60 mg IVPUSH BID [facility] Last Admin: 05/05/18 10:27 Dose: 60 mg Metoprolol Tartrate (Lopressor Injection -) 5 mg IVPUSH Q4H PRN PRN Reason: TACHYCARDIA Last Admin: 05/05/18 06:24 Dose: 5 mg Potassium Phos/Sodium Phos (Phos-Nak Packet -) 1 packet PO DAILY [facility] Last Admin: 05/05/18 10:28 Dose: 1 packet Sodium Chloride ([place] Nasal [place] -) 2 spray NS BID PRN PRN Reason: NASAL CONGESTION - Objective Vital Signs: Vital Signs Temperature 97.2 F L 05/05/18 11:58 Pulse Rate 78 05/05/18 11:58 Respiratory Rate 18 05/05/18 11:58 Blood Pressure 115/60 05/05/18 11:58 O2 Sat by Pulse Oximetry (%) 99 05/05/18 11:16 Cardiovascular: Yes: Tachycardia, Pulse Irregular, S1, S2 Respiratory: Yes: On BiPap Gastrointestinal: Yes: Normal Bowel Sounds, Soft Labs: CBC, BMP 05/05/18 05:15 05/05/18 05:15 INR, PTT INR 1.14 (0.83-1.09) H 04/27/18 08:31 Problem List - Problems (1) Acute and chronic respiratory failure with hypercapnia Assessment/Plan: Extubated--on bipap pulm on board oxygen bronchodilators retaining Code(s): J96.22 - ACUTE AND CHRONIC RESPIRATORY FAILURE WITH HYPERCAPNIA (2) Anemia Assessment/Plan: Monitor Code(s): D64.9 - ANEMIA, UNSPECIFIED Qualifiers: Anemia type: unspecified type Qualified Code(s): D64.9 - Anemia, unspecified (3) COPD (chronic obstructive pulmonary disease) Assessment/Plan: -Nebs -steroids Code(s): J44.9 - CHRONIC OBSTRUCTIVE PULMONARY DISEASE, UNSPECIFIED Qualifiers: COPD type: unspecified COPD Qualified Code(s): J44.9 - Chronic obstructive pulmonary disease, unspecified (4) MRSA bacteremia Assessment/Plan: Abx per id--Vanco isolation ID consult and follow up noted LUBNA done no vegetation Code(s): R78.81 - BACTEREMIA (5) Nasal hemorrhage Code(s): R04.0 - EPISTAXIS (6) Afib Assessment/Plan: On Lovenox -had rapid hr last night--responded to meds --Monitor on cardizem drip -Cardio on board Code(s): I48.91 - UNSPECIFIED ATRIAL FIBRILLATION
--- NOTE | 2018-05-05 13:39 | PN ---
Teaching Attending Note Name of Resident: Candida Parnell ATTENDING PHYSICIAN STATEMENT I saw and evaluated the patient. I reviewed the resident's note and discussed the case with the resident. I agree with the resident's findings and plan as documented. SUBJECTIVE: Pt seen and examined in the ICU. Remains on BiPAP, heart rates better controlled but still variable. OBJECTIVE: Vital Signs Period Temp Pulse Resp BP Sys/Morgan Pulse Ox Last 24 Hr 97.2 F-98.6 F 58-171 15-26 97-148/24-99 96-100 Intake & Output 05/02/18 05/03/18 05/04/18 05/05/18 23:59 23:59 23:59 23:59 Intake Total 955 1237 1595 300 Output Total 1300 1075 1300 Balance -345 162 295 300 Weight 62 kg 62.5 kg 62.7 kg 62.4 kg Gen: mildly tachypneic on BiPAP Heart: RRR Lung: scattered rhonchi Abd: soft, nontender Ext: no edema CBC, BMP 05/05/18 05:15 05/05/18 05:15 Active Medications Acetaminophen (Tylenol -) 650 mg PO Q6H PRN PRN Reason: FEVER Last Admin: 05/02/18 22:40 Dose: 650 mg Alprazolam (Xanax -) 0.5 mg PO BID [facility] Last Admin: 05/05/18 10:27 Dose: 0.5 mg Amino Acids (Prosource No Carb Liquid Pkt) 30 ml PO DAILY [facility] Last Admin: 05/05/18 10:26 Dose: 30 ml Apixaban (Eliquis -) 5 mg PO BID [facility] Last Admin: 05/05/18 10:26 Dose: 5 mg Chlorhexidine Gluconate (Hibiclens For Decolonization -) 1 applic TP HS [facility] Last Admin: 05/04/18 21:46 Dose: 1 applic Chlorhexidine Gluconate (Peridex -) 15 ml MM BID [facility] Last Admin: 05/05/18 10:40 Dose: 15 ml Diltiazem HCl (Cardizem -) 30 mg PO TID [facility] Last Admin: 05/04/18 06:06 Dose: 30 mg Famotidine/Sodium Chloride (Pepcid 20 Mg Premixed Ivpb -) 20 mg in 50 mls @ 100 mls/hr IVPB BID [facility] Last Admin: 05/05/18 10:26 Dose: 100 mls/hr Vancomycin HCl (Vancomycin (Pre-Docked)) 1,000 mg in 250 mls @ 166.667 mls/hr IVPB BID [facility]; Protocol Last Admin: 05/05/18 10:22 Dose: 166.667 mls/hr Diltiazem HCl 125 mg/ Sodium (Chloride) 125 mls @ 5 mls/hr IVPB TITR [facility]; Protocol Last Admin: 05/05/18 10:30 Dose: 10 mg/hr, 10 mls/hr Insulin Aspart (Novolog Vial Sliding Scale -) 1 vial SQ ACHS [facility]; Protocol Last Admin: 05/05/18 11:47 Dose: 2 units Ipratropium [place] (Atrovent 0.02% Nebulizer -) 1 amp NEB RQID [facility] Last Admin: 05/05/18 12:00 Dose: 1 amp Methylprednisolone Sodium Succinate (Solu-Medrol -) 60 mg IVPUSH BID [facility] Last Admin: 05/05/18 10:27 Dose: 60 mg Metoprolol Tartrate (Lopressor Injection -) 5 mg IVPUSH Q4H PRN PRN Reason: TACHYCARDIA Last Admin: 05/05/18 06:24 Dose: 5 mg Potassium Phos/Sodium Phos (Phos-Nak Packet -) 1 packet PO DAILY [facility] Last Admin: 05/05/18 10:28 Dose: 1 packet Sodium Chloride ([place] Nasal [place] -) 2 spray NS BID PRN PRN Reason: NASAL CONGESTION ASSESSMENT AND PLAN: Acute on Chronic Hypoxic and Hypercapneic Respiratory Failure UTI Septic Shock improving Lactic Acidosis Acute on Chronic Diastolic Heart Failure Severe Mitral Regurgitation Thrombocytopenia CAD COPD Pulmonary HTN Paroxysmal Atrial Fibrillation HTN Hypercholesterolemia - continue antibiotics - off pressors, maintain MAP >65 - monitor urine output, creatinine - monitor CBC - resume anticoagulation - rate control with cardizem gtt, lopressor IVP - start amiodarone for rhythm controlled - continue medrol - inhaled bronchodilators - O2 to keep SpO2 >90% - DVT/GI prophylaxis - continue ICU monitoring for tenuous respiratory status critical care time spent in reviewing chart, evaluating patient and formulating plan 35 min
--- NOTE | 2018-05-05 13:45 | PN ---
Progress Note, [employer] - Note Progress Note: Selected Entries 05/05/18 05/05/18 05/05/18 02:00 06:00 10:28 Lunch NPO Temperature 98.6 F 97.4 F L 05/05/18 05/05/18 11:58 13:03 Lunch Temperature 97.2 F L 98.2 F Laboratory Tests 05/04/18 05/05/18 05:30 05:15 WBC 11.0 H 7.3 NGT feedings stopped. On BIPAP. Not stable for PO trials yet. To follow, as pt improves.
--- NOTE | 2018-05-05 14:22 | PN ---
Physical Exam: SUBJECTIVE: Patient seen and examined Patient alert, on bipap OBJECTIVE: Vital Signs Period Temp Pulse Resp BP Sys/Morgan Pulse Ox Last 24 Hr 97.2 F-98.6 F 58-171 15-26 97-148/24-99 96-100 GENERAL: The patient is awake, alert, and fully oriented, in no acute distress, increased work of breathing HEAD: Normal with no signs of trauma. EYES: PERRLA ENT: moist mucous membranes. NECK: Trachea midline LUNGS: slightly coarse breath sounds bilaterally, no crackles, no accessory muscle use. HEART: Regular rate and rhythm, S1, S2 without murmur, rub or gallop. ABDOMEN: Soft, nontender, nondistended, normoactive bowel sounds, no guarding, no rebound, no hepatosplenomegaly, no masses. EXTREMITIES: 2+ pulses, warm, well-perfused, no edema. NEUROLOGICAL: Cranial nerves II through XII grossly intact. Normal speech, gait not observed. PSYCH: Normal mood, normal affect. SKIN: Warm, dry, normal turgor, no rashes or lesions noted Laboratory Results - last 24 hr 05/04/18 05/04/18 05/04/18 11:31 16:17 22:16 WBC RBC Hgb Hct MCV MCH MCHC RDW Plt Count MPV Absolute Neuts (auto) Neutrophils % Neutrophils % (Manual) Band Neutrophils % Lymphocytes % Lymphocytes % (Manual) Monocytes % Monocytes % (Manual) Eosinophils % Eosinophils % (Manual) Basophils % Basophils % (Manual) Myelocytes % (Man) Promyelocytes % (Man) Blast Cells % (Manual) Nucleated RBC % Metamyelocytes Hypochromia Platelet Estimate Polychromasia Poikilocytosis Anisocytosis Microcytosis Macrocytosis Ovalocytes Stomatocytes Puncture Site ABG pH ABG pCO2 at Pt Temp ABG pO2 at Pt Temp ABG HCO3 ABG O2 Sat (Measured) ABG O2 Content ABG Base Excess Pardeep Test O2 Delivery Device Oxygen Flow Rate Vent Mode Vent Rate Mechanical Rate PEEP Pressure Support Vent Sodium Potassium Chloride Carbon Dioxide Anion Gap BUN Creatinine Creat Clearance w eGFR POC Glucometer 173.05925 147.21192 118.79032 Random Glucose Calcium Phosphorus Magnesium Total Bilirubin AST ALT Alkaline Phosphatase Total Protein Albumin 05/05/18 05/05/18 05/05/18 05:15 05:15 05:25 WBC 7.3 RBC 2.80 L Hgb 8.4 L Hct 26.5 L D MCV 94.6 MCH 30.1 MCHC 31.8 L RDW 16.0 H Plt Count 86 L D MPV 9.2 Absolute Neuts (auto) 6.9 Neutrophils % 95.4 H Neutrophils % (Manual) 96.0 H Band Neutrophils % 2.0 Lymphocytes % 1.1 L D Lymphocytes % (Manual) 1.0 L D Monocytes % 3.2 L Monocytes % (Manual) 1 L D Eosinophils % 0.0 Eosinophils % (Manual) 0.0 Basophils % 0.3 Basophils % (Manual) 0.0 Myelocytes % (Man) 0 Promyelocytes % (Man) 0 Blast Cells % (Manual) 0 Nucleated RBC % 0 Metamyelocytes 0 Hypochromia 0 Platelet Estimate Decreased Polychromasia 0 Poikilocytosis 0 Anisocytosis 1+ Microcytosis 0 Macrocytosis 1+ Ovalocytes 1+ Stomatocytes 1+ Puncture Site ABG pH ABG pCO2 at Pt Temp ABG pO2 at Pt Temp ABG HCO3 ABG O2 Sat (Measured) ABG O2 Content ABG Base Excess Pardeep Test O2 Delivery Device Oxygen Flow Rate Vent Mode Vent Rate Mechanical Rate PEEP Pressure Support Vent Sodium 149 H Potassium 3.5 Chloride 99 Carbon Dioxide 45 H Anion Gap 5 L BUN 22 H Creatinine 0.2 L Creat Clearance w eGFR > 60 POC Glucometer 145.97044 Random Glucose 139 H Calcium 7.8 L Phosphorus 2.5 Magnesium 2.3 Total Bilirubin 0.7 AST 17 ALT 46 Alkaline Phosphatase 66 Total Protein 4.5 L Albumin 2.1 L 05/05/18 05/05/18 06:40 11:28 WBC RBC Hgb Hct MCV MCH MCHC RDW Plt Count MPV Absolute Neuts (auto) Neutrophils % Neutrophils % (Manual) Band Neutrophils % Lymphocytes % Lymphocytes % (Manual) Monocytes % Monocytes % (Manual) Eosinophils % Eosinophils % (Manual) Basophils % Basophils % (Manual) Myelocytes % (Man) Promyelocytes % (Man) Blast Cells % (Manual) Nucleated RBC % Metamyelocytes Hypochromia Platelet Estimate Polychromasia Poikilocytosis Anisocytosis Microcytosis Macrocytosis Ovalocytes Stomatocytes Puncture Site Right radial ABG pH 7.41 ABG pCO2 at Pt Temp 71.3 H* ABG pO2 at Pt Temp 114.0 H ABG HCO3 44.6 H* ABG O2 Sat (Measured) 98.4 ABG O2 Content 12.3 L ABG Base Excess 17.6 H* Pardeep Test Positive O2 Delivery Device Bipap Oxygen Flow Rate 50% Vent Mode Bipap Vent Rate 18 Mechanical Rate Yes PEEP 0.0 Pressure Support Vent 20/5 Sodium Potassium Chloride Carbon Dioxide Anion Gap BUN Creatinine Creat Clearance w eGFR POC Glucometer 155.90946 Random Glucose Calcium Phosphorus Magnesium Total Bilirubin AST ALT Alkaline Phosphatase Total Protein Albumin Active Medications Generic Name Dose Route Start Last Admin Trade Name Freq PRN Reason Stop Dose Admin Acetaminophen 650 mg 04/23/18 13:40 05/02/18 22:40 Tylenol - PO 650 mg Q6H PRN Administration FEVER Alprazolam 0.5 mg 05/02/18 10:00 05/05/18 10:27 Xanax - PO 0.5 mg BID TA Administration Amino Acids 30 ml 04/28/18 15:00 05/05/18 10:26 Prosource No Carb Liquid Pkt PO 30 ml DAILY TA Administration Apixaban 5 mg 05/04/18 10:00 05/05/18 10:26 Eliquis - PO 5 mg BID TA Administration Chlorhexidine Gluconate 1 applic 04/23/18 22:00 05/04/18 21:46 Hibiclens For Decolonization - TP 1 applic HS TA Administration Chlorhexidine Gluconate 15 ml 04/25/18 22:00 05/05/18 10:40 Peridex - MM 15 ml BID TA Administration Diltiazem HCl 30 mg 04/28/18 22:00 05/04/18 06:06 Cardizem - PO 30 mg TID TA Administration Famotidine/Sodium Chloride 20 mg in 50 mls @ 100 mls/hr 04/24/18 10:00 10:26 Pepcid 20 Mg Premixed Ivpb - IVPB 100 mls/hr BID TA Administration Vancomycin HCl 1,000 mg in 250 mls @ 166.667 mls/hr 04/28/18 10:00 05/05/18 10:22 Vancomycin (Pre-Docked) IVPB 166.667 mls/hr BID TA Administration Protocol Diltiazem HCl 125 mg/ Sodium 125 mls @ 5 mls/hr 04/29/18 12:45 05/05/18 10:30 Chloride IVPB 10 mg/hr TITR TA 10 mls/hr Administration Protocol 5 MG/HR Amiodarone HCl/Dextrose 360 mg in 200 mls @ 16.667 mls/hr 05/05/18 13:45 Nexterone 360 Mg/200 Ml Bag IVPB ASDIR TA Protocol 0.5 MG/MIN Amiodarone HCl/Dextrose 360 mg in 200 mls @ 33.333 mls/hr 05/05/18 13:43 Nexterone 360 Mg/200 Ml Bag IVPB 05/05/18 19:42 ONCE ONE Protocol 1 MG/MIN Amiodarone HCl/Dextrose 150 mg in 100 mls @ 600 mls/hr 05/05/18 13:43 Nexterone 150 Mg/100 Ml Bag IVPB 05/05/18 13:52 ONCE ONE Protocol Insulin Aspart 1 vial 04/24/18 11:00 05/05/18 11:47 Novolog Vial Sliding Scale - SQ 2 units ACHS TA Administration Protocol Ipratropium [place] 1 amp 04/27/18 12:00 05/05/18 12:00 Atrovent 0.02% Nebulizer - NEB 1 amp RQID TA Administration Methylprednisolone Sodium Succinate 60 mg 05/04/18 11:45 05/05/18 10:27 Solu-Medrol - IVPUSH 60 mg BID TA Administration Metoprolol Tartrate 5 mg 04/27/18 14:35 05/05/18 06:24 Lopressor Injection - IVPUSH 5 mg Q4H PRN Administration TACHYCARDIA Potassium Phos/Sodium Phos 1 packet 05/02/18 10:00 05/05/18 10:28 Phos-Nak Packet - PO 1 packet DAILY TA Administration Sodium Chloride 2 spray 04/29/18 09:00 [place] Nasal [place] - NS BID PRN NASAL CONGESTION ASSESSMENT/PLAN: Patient is a 67 yo M with history of COPD on home oxygen (3L), Interstitial lung disease, HTN, HLD, CHF, diastolic LV dysfunction, RI, CAD, GERD, hiatal hernia, recent dx of Afib with RVR on Eliquis (last dose 04/22 AM), presenting to the ER with a complaint of epistaxis, hypotension and tachycardia. Now admitted to ICU for septic shock. Pt was recently admitted for MRSA bacteremia ID Septic Shock -likely 2/2 urosepsis - ID following case - source of sepsis likely urine as UA: +leuk esterase, + wbc - blood and urine culture neg, sputum culture with gram negative bacilli - CT scan chest/abd/pelvis (04/25) : L upper air filled cavity in L upper chest , R upper fluid structure(possible abscess) - unchanged from 04/01 - Keep MAP> 65 - femoral line removed, picc line removed - on methylprednisone 60mg IVP BID - home dose MRSA Bacteremia with suspicion of endocarditis, last admission - LUBNA completed (04/27) - LVEF 60-65%, moderate mitral valve prolapse, severe mitral regurgitation, mild tricuspid regurg, mild aortic regurg, mild aortic sclerosis, no vegetation - MRSA bacteremia-day #36 MRSA treatment plan total 42 days - antibiotics as per ID: vancomycin started (04/27) Heme Acute blood loss, normocytic anemia, likely 2/2 epistaxis, required 2pRBC ( resolved) - Tranfusion goal of Hb > 8 - nasal packing removed (04/27) w/o complications - ENT following (Dr. Clarke) - keep head end elevated Thrombocytopenia, baseline around 130-140 and since 03/02/18 has been decreasing to 80s, likely 2/2 sepsis and antibiotics (resolved) - Heme consulted, following case, thrombocytopenia thought to be 2/2 MRSA bacteremia Epistaxis from the L nares (resolved) - L nasal packing done in ED, ENT consulted ENT recommends nasal packing until Thursday - nasal packing removed (04/27) w/o complications - nasal saline spray bid, observe for bleeding Cardiac Diastolic LV dysfunc, CHF, phx RI, CAD, Afib w/ RVR - Last ECHO (03/31/18) - normal EF, L ventricular function normal, severe MR, moderate TR - Tele monitoring - plan to restart home lipitor - Trop: neg - cardizem gtt, lopressor IVP, cardizem 30mg TID - Cardiology following HTN - hypotensive 2/2 septic shock - BP 110s - hold home valsartan Afib - Eliquis held due to tube feeds stopping yesterday for GI decompression - [id number] score of 3 - if recurrent arrythmia consider antiarrhythmics/amiodarone Pulm COPD, uses 3L home oxygen continue 3L of oxygen, patient intubated - CXR daily - CXR: RUL fluid collection (possible abscess), LINDSEY air collection unchanged from 04/01/18 - Per ID: plan for biopsy/drainage of RUL collection when extubated - Ipratroprium neb - Ventimask / Bipap as needed Ortho Bilateral femoral head avascular necrosis - noted on CT abd/pelvis (04/25) - Ortho following case, Dr. Baez - No orthopedic intervention / medical status F/E/N - Will resume tube feeds today as held yesterday for decompression - Electrolytes trend - Diabetic diet - sher cath PPX DVT: lovenox GI: pepcid BID Lines, Tubes: sher, PIV Code Status: full code Dispo: Case discussed with Janett, plan to review patient on 05/07/18. If malignancy of RUL consolidation cannot be ruled out, the pt may not benefit from transfer. Visit type - Emergency Visit Emergency Visit: No - New Patient This patient is new to me today: No - Critical Care Critical Care patient: No
[2018-05-05] MEDS ORDERED: AMIODARONE IN DEXTROSE,ISO-OSM 150 MG/100 ML BAG IVPB ONE (14:45)
[2018-05-05] MEDS ORDERED: AMIODARONE IN DEXTROSE,ISO-OSM 360 MG/200 ML BAG IVPB ONE (14:55)
[2018-05-05] MEDS ORDERED: AMIODARONE HCL 150 MG/3 ML VIAL ONE (15:15)
[2018-05-05] MEDS: dilTIAZem HCL 30 MG TABLET (FP) PO SCH (15:45)
[2018-05-05] MEDS: ESCITALOPRAM OXALATE 20 MG TABLET (FP) PO SCH (17:48)
[2018-05-05] MEDS: AMIODARONE IN DEXTROSE,ISO-OSM 360 MG/200 ML BAG IVPB SCH (21:29)
[2018-05-05] MEDS: CHLORHEXIDINE GLUCONATE 4% CLEANSER FOR DECOLONIZATION TP SCH (21:29)
[2018-05-06 06:08] LABS: BASO % 0.1 % (0-2.0); HEMATOCRIT 27.6 % (35.4-49); HEMOGLOBIN 8.7 GM/dL (11.7-16.9); LYMPH % 1.2 % (8-40); MCHC 31.5 g/dl (32.0-35.9); MEAN CELL VOLUME 95.1 fl (80-96); MEAN PLT VOLUME 9.9 fl (7.5-11.1); MONO % 3.8 % (3.8-10.2); NEUT % 94.9 % (42.8-82.8); PLATELET COUNT 89 K/MM3 (134-434); RDW 16.1 % (11.9-15.9); WHITE BLOOD COUNT 6.4 K/mm3 (4.0-10.0)
[2018-05-06] MEDS: INSULIN SLIDING SCALE (NOVOLOG) 1 VIAL SQ SCH ×4 (06:21→22:20)
[2018-05-06 07:07] LABS: ARTERIAL BLD GAS O2 SATURATION 98.2 % (90-98.9); ARTERIAL BLOOD GAS BASE EXCESS 17.8 meq/l (-2-2); ARTERIAL BLOOD GAS pH 7.41 (7.35-7.45)
[2018-05-06 07:18] LABS: ALLENS TEST POSITIVE; ARTERIAL BLOOD GAS PCO2 72.2 mmHg (35-45)
[2018-05-06 07:55] LABS: ALBUMIN 2.2 g/dl (3.4-5.0); ALK PHOS 65 U/L (45-117); BILIRUBIN,TOTAL 0.8 mg/dL (0.2-1); BLOOD UREA NITROGEN 20 mg/dL (7-18); CALCIUM 7.7 mg/dL (8.5-10.1); CHLORIDE 97 mmol/L (98-107); CREATININE 0.2 mg/dL (0.55-1.3); GLUCOSE,RANDOM 156 mg/dL (74-106); MAGNESIUM 2.2 mg/dL (1.8-2.4); PHOSPHOROUS 2.1 mg/dL (2.5-4.9); POTASSIUM 3.4 mmol/L (3.5-5.1); SGOT/AST 16 U/L (15-37); SGPT/ALT 45 U/L (13-61); SODIUM 148 mmol/L (136-145); TOT PROT 4.6 g/dl (6.4-8.2)
[2018-05-06] MEDS ORDERED: POTASSIUM PHOSPHATE 30 MM in SODIUM CHLORIDE 250 ML IVPB ONE (08:21)
[2018-05-06 08:29] LABS: ANION GAP 6 MMOL/L (8-16); CO2 45 mmol/L (21-32)
[2018-05-06] MEDS: ALPRAZolam 0.25 MG TABLET PO SCH (09:50)
[2018-05-06] MEDS: ESCITALOPRAM OXALATE 20 MG TABLET (FP) PO SCH (09:50)
[2018-05-06] MEDS: CHLORHEXIDINE GLUCONATE 0.12% 15ML CUP MM SCH ×2 (09:50→22:37)
[2018-05-06] MEDS: AMINO ACIDS/PROTEIN HYDROLYS 30 ML LIQUID.PKT PO SCH (09:50)
[2018-05-06] MEDS: methylPREDNISolone NA SUCC 40 MG/1 ML VIAL IVPUSH SCH ×2 (09:51→21:21)
[2018-05-06] MEDS: NAPH,MB-DB/K PH,MBDB POWDER PACKET PO SCH (09:57)
[2018-05-06] MEDS: VANCOMYCIN 1 GRAM (PRE-DOCKED) 1,000 MG/250 ML BAG IVPB SCH ×2 (10:00→21:22)
[2018-05-06] MEDS ORDERED: ENOXAPARIN NA (PORCINE) 40 MG/0.4 ML DISP.SYRIN SQ SCH (10:00)
[2018-05-06] MEDS: AMIODARONE IN DEXTROSE,ISO-OSM 360 MG/200 ML BAG IVPB SCH (10:30)
[2018-05-06 10:58] LABS: ANISOCYTOSIS 1+; MACROCYTOSIS 1+; PLATELET ESTIMATE DECREASED
[2018-05-06] MEDS: DILTIAZEM INJECTION 125 MG in SODIUM CHLORIDE 100 ML IVPB SCH ×2 (11:15→15:16)
--- NOTE | 2018-05-06 11:16 | PN ---
Progress Note, Physician History of Present Illness: Remains on bipap and back PAF->SR on cardizem gtt and amio gtt. - Current Medication List Current Medications: Active Medications Acetaminophen (Tylenol -) 650 mg PO Q6H PRN PRN Reason: FEVER Last Admin: 05/02/18 22:40 Dose: 650 mg Alprazolam (Xanax -) 0.5 mg PO BID [facility] Last Admin: 05/06/18 09:50 Dose: 0.5 mg Amino Acids (Prosource No Carb Liquid Pkt) 30 ml PO DAILY [facility] Last Admin: 05/06/18 09:50 Dose: 30 ml Chlorhexidine Gluconate (Hibiclens For Decolonization -) 1 applic TP HS [facility] Last Admin: 05/05/18 21:29 Dose: 1 applic Chlorhexidine Gluconate (Peridex -) 15 ml MM BID [facility] Last Admin: 05/06/18 09:50 Dose: 15 ml Diltiazem HCl (Cardizem -) 30 mg PO TID [facility] Last Admin: 05/05/18 15:45 Dose: Not Given Enoxaparin Sodium (Lovenox -) 40 mg SQ DAILY [facility] Last Admin: 05/06/18 09:49 Dose: 40 mg Escitalopram Oxalate (Lexapro -) 20 mg PO DAILY [facility] Last Admin: 05/06/18 09:50 Dose: 20 mg Famotidine/Sodium Chloride (Pepcid 20 Mg Premixed Ivpb -) 20 mg in 50 mls @ 100 mls/hr IVPB BID [facility] Last Admin: 05/05/18 21:29 Dose: 100 mls/hr Vancomycin HCl (Vancomycin (Pre-Docked)) 1,000 mg in 250 mls @ 166.667 mls/hr IVPB BID [facility]; Protocol Last Admin: 05/06/18 10:00 Dose: 166.667 mls/hr Diltiazem HCl 125 mg/ Sodium (Chloride) 125 mls @ 5 mls/hr IVPB TITR [facility]; Protocol Last Titration: 05/05/18 16:19 Dose: 10 mg/hr, 10 mls/hr Amiodarone HCl/Dextrose (Nexterone 360 Mg/200 Ml Bag) 360 mg in 200 mls @ 16.667 mls/hr IVPB ASDIR [facility]; Protocol Last Admin: 05/05/18 21:29 Dose: 16.667 mls/hr Potassium Phosphate 30 mm/ (Sodium Chloride) 260 mls @ 62.5 mls/hr IVPB ONCE ONE Stop: 05/06/18 12:30 Last Admin: 05/06/18 09:49 Dose: 62.5 mls/hr Insulin Aspart (Novolog Vial Sliding Scale -) 1 vial SQ ACHS [facility]; Protocol Last Admin: 05/06/18 06:21 Dose: 2 units Methylprednisolone Sodium Succinate (Solu-Medrol -) 60 mg IVPUSH BID [facility] Last Admin: 05/06/18 09:51 Dose: 60 mg Metoprolol Tartrate (Lopressor Injection -) 5 mg IVPUSH Q4H PRN PRN Reason: TACHYCARDIA Last Admin: 05/05/18 06:24 Dose: 5 mg Potassium Phos/Sodium Phos (Phos-Nak Packet -) 1 packet PO DAILY [facility] Last Admin: 05/06/18 09:57 Dose: 1 packet Sodium Chloride ([place] Nasal [place] -) 2 spray NS BID PRN PRN Reason: NASAL CONGESTION - Objective Vital Signs: Vital Signs Temperature 97.7 F 05/06/18 10:00 Pulse Rate 120 H 05/06/18 10:00 Respiratory Rate 19 05/06/18 10:00 Blood Pressure 161/64 05/06/18 10:00 O2 Sat by Pulse Oximetry (%) 100 05/06/18 08:45 Constitutional: Yes: No Distress, Calm, Thin Neck: Yes: Supple Cardiovascular: Yes: Tachycardia, Pulse Irregular Respiratory: Yes: Regular, Diminished, On BiPap Gastrointestinal: Yes: Soft, Hypoactive Bowel Sounds Edema: No Labs: CBC, BMP 05/06/18 05:30 05/06/18 05:30 INR, PTT INR 1.14 (0.83-1.09) H 04/27/18 08:31 - ....Imaging Chest X-ray: Report Reviewed (Bibasilar infiltrates, RUL mass, hyperinflated lungs) EKG: Report Reviewed (Tele: [facility] with RVR) Problem List - Problems (1) Hypotension Code(s): I95.9 - HYPOTENSION, UNSPECIFIED Qualifiers: Hypotension type: other hypotension type Qualified Code(s): I95.89 - Other hypotension (2) Acute and chronic respiratory failure with hypercapnia Code(s): J96.22 - ACUTE AND CHRONIC RESPIRATORY FAILURE WITH HYPERCAPNIA (3) Anemia Code(s): D64.9 - ANEMIA, UNSPECIFIED Qualifiers: Anemia type: unspecified type Qualified Code(s): D64.9 - Anemia, unspecified (4) COPD (chronic obstructive pulmonary disease) Code(s): J44.9 - CHRONIC OBSTRUCTIVE PULMONARY DISEASE, UNSPECIFIED Qualifiers: COPD type: unspecified COPD Qualified Code(s): J44.9 - Chronic obstructive pulmonary disease, unspecified (5) Diastolic dysfunction Code(s): I51.9 - HEART DISEASE, UNSPECIFIED (6) Epistaxis, recurrent Code(s): R04.0 - EPISTAXIS (7) Hyperlipidemia Code(s): E78.5 - HYPERLIPIDEMIA, UNSPECIFIED Qualifiers: Hyperlipidemia type: pure hypercholesterolemia Qualified Code(s): E78.00 - Pure hypercholesterolemia, unspecified; E78.0 - Pure hypercholesterolemia (8) Hyperthyroidism Code(s): E05.90 - THYROTOXICOSIS, UNSP WITHOUT THYROTOXIC CRISIS OR STORM (9) Paroxysmal A-fib Code(s): I48.0 - PAROXYSMAL ATRIAL FIBRILLATION (10) Mitral valve anterior leaflet prolapse Code(s): I34.1 - NONRHEUMATIC MITRAL (VALVE) PROLAPSE (11) Moderate to severe mitral regurgitation Code(s): I34.0 - NONRHEUMATIC MITRAL (VALVE) INSUFFICIENCY Assessment/Plan 04/27/2018 Moderate to severe MR with posteriorly directed eccentric jet due to anterior mitral valve prolapse, mild TR and normal LV systolic function. There were no vegetations. Small pericardial effusion may be seen 1. Acute on Chronic Hypoxic and Hypercapneic Respiratory Failure 2. Acute on chronic class II-III NYHA classification LV diastolic failure referable to underlying posterior directed moderate-severe MR due to anterior MV prolapse 3. 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 Sepsis syndrome, history of MRSA bacteremia of unclear source, with splenic infarct, #38 MRSA treatment plan total 42 days-continue vancomycin 5. Advanced chronic obstructive pulmonary disease on home oxygen therapy with Pulmonary HTN 6. Epistaxis, prior history requiring intervention, nasal packing in situ 7. Anemia related to above and in addition thrombocytopenia 8. Paroxysmal atrial fibrillation with [id number] score of 2 now in SR 9. HTN 10. 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 UTI 13. Right apical lung mass? PLAN: 1. Remains on Cardizem gtt and amio gtt and Lopressor IV prn, for recurrent afib with RVR 2. Resume Diovan as tolerated 3. Off Eliquis on Lovenox 4. Consider diuretics - Furosemide as needed 5. Resume Lipitor 10 mg QHS when feasible 6. Monitor Hgb and transfuse as needed to maintain Hgb equal or > 8.0 7. Bronchodilator, IV steroids with GI protection, antibiotics course as per ID service 8. Further evaluation for MVP and MR and probable surgical repair will need to be done at some point when he is clinically stable.
--- NOTE | 2018-05-06 11:23 | PN ---
Progress Note, Physician - Current Medication List Current Medications: Active Medications Acetaminophen (Tylenol -) 650 mg PO Q6H PRN PRN Reason: FEVER Last Admin: 05/02/18 22:40 Dose: 650 mg Alprazolam (Xanax -) 0.5 mg PO BID [facility] Last Admin: 05/06/18 09:50 Dose: 0.5 mg Amino Acids (Prosource No Carb Liquid Pkt) 30 ml PO DAILY [facility] Last Admin: 05/06/18 09:50 Dose: 30 ml Chlorhexidine Gluconate (Hibiclens For Decolonization -) 1 applic TP HS [facility] Last Admin: 05/05/18 21:29 Dose: 1 applic Chlorhexidine Gluconate (Peridex -) 15 ml MM BID [facility] Last Admin: 05/06/18 09:50 Dose: 15 ml Diltiazem HCl (Cardizem -) 30 mg PO TID [facility] Last Admin: 05/05/18 15:45 Dose: Not Given Enoxaparin Sodium (Lovenox -) 40 mg SQ DAILY [facility] Last Admin: 05/06/18 09:49 Dose: 40 mg Escitalopram Oxalate (Lexapro -) 20 mg PO DAILY [facility] Last Admin: 05/06/18 09:50 Dose: 20 mg Famotidine/Sodium Chloride (Pepcid 20 Mg Premixed Ivpb -) 20 mg in 50 mls @ 100 mls/hr IVPB BID [facility] Last Admin: 05/05/18 21:29 Dose: 100 mls/hr Vancomycin HCl (Vancomycin (Pre-Docked)) 1,000 mg in 250 mls @ 166.667 mls/hr IVPB BID [facility]; Protocol Last Admin: 05/06/18 10:00 Dose: 166.667 mls/hr Diltiazem HCl 125 mg/ Sodium (Chloride) 125 mls @ 5 mls/hr IVPB TITR [facility]; Protocol Last Titration: 05/05/18 16:19 Dose: 10 mg/hr, 10 mls/hr Amiodarone HCl/Dextrose (Nexterone 360 Mg/200 Ml Bag) 360 mg in 200 mls @ 16.667 mls/hr IVPB ASDIR [facility]; Protocol Last Admin: 05/05/18 21:29 Dose: 16.667 mls/hr Potassium Phosphate 30 mm/ (Sodium Chloride) 260 mls @ 62.5 mls/hr IVPB ONCE ONE Stop: 05/06/18 12:30 Last Admin: 05/06/18 09:49 Dose: 62.5 mls/hr Insulin Aspart (Novolog Vial Sliding Scale -) 1 vial SQ ACHS [facility]; Protocol Last Admin: 05/06/18 06:21 Dose: 2 units Methylprednisolone Sodium Succinate (Solu-Medrol -) 60 mg IVPUSH BID [facility] Last Admin: 05/06/18 09:51 Dose: 60 mg Metoprolol Tartrate (Lopressor Injection -) 5 mg IVPUSH Q4H PRN PRN Reason: TACHYCARDIA Last Admin: 05/05/18 06:24 Dose: 5 mg Potassium Phos/Sodium Phos (Phos-Nak Packet -) 1 packet PO DAILY [facility] Last Admin: 05/06/18 09:57 Dose: 1 packet Sodium Chloride ([place] -) 2 spray NS BID PRN PRN Reason: NASAL CONGESTION - Objective Vital Signs: Vital Signs Temperature 97.7 F 05/06/18 10:00 Pulse Rate 120 H 05/06/18 10:00 Respiratory Rate 19 05/06/18 10:00 Blood Pressure 161/64 05/06/18 10:00 O2 Sat by Pulse Oximetry (%) 100 05/06/18 08:45 Constitutional: Yes: Anxious, Thin Cardiovascular: Yes: Regular Rate and Rhythm, S1, S2 Respiratory: Yes: On BiPap, Rhonchi Gastrointestinal: Yes: Normal Bowel Sounds, Soft Labs: CBC, BMP 05/06/18 05:30 05/06/18 05:30 INR, PTT INR 1.14 (0.83-1.09) H 04/27/18 08:31 Problem List - Problems (1) Fever Assessment/Plan: isolation for MRSA Microbiology 04/28/18 12:46 Blood - Peripheral Venous Blood Culture - Final NO GROWTH AFTER 5 DAYS INCUBATION 04/28/18 12:27 Blood - Peripheral Venous Blood Culture - Final NO GROWTH AFTER 5 DAYS INCUBATION 04/26/18 10:00 Urine - Urine [place] Legionella Antigen - Final 04/26/18 10:00 Urine - Urine [place] Streptococcus pneumoniae Antigen (M - Final Code(s): R50.9 - FEVER, UNSPECIFIED (2) Hypotension Assessment/Plan: improved Code(s): I95.9 - HYPOTENSION, UNSPECIFIED Qualifiers: Qualified Code(s): I95.89 - Other hypotension (3) Nasal hemorrhage Assessment/Plan: improved Code(s): R04.0 - EPISTAXIS (4) Anxiety Assessment/Plan: xanax lexapro 20mg Code(s): F41.9 - ANXIETY DISORDER, UNSPECIFIED (5) COPD (chronic obstructive pulmonary disease) Assessment/Plan: in icu on bipap iv steroids bronchodilators Code(s): J44.9 - CHRONIC OBSTRUCTIVE PULMONARY DISEASE, UNSPECIFIED Qualifiers: Qualified Code(s): J44.9 - Chronic obstructive pulmonary disease, unspecified (6) BPH (benign prostatic hypertrophy) Assessment/Plan: flomax Code(s): N40.0 - BENIGN PROSTATIC HYPERPLASIA WITHOUT LOWER URINRY TRACT SYMP (7) MRSA bacteremia Assessment/Plan: on contact isolation iv abx day 38 of 42 iv vanco LUBNA done no vegetations noted Code(s): R78.81 - BACTEREMIA (8) Paroxysmal A-fib Assessment/Plan: icu monitoring cardizem and lopressor IV amiodarone for rhytm control lovenox Code(s): I48.0 - PAROXYSMAL ATRIAL FIBRILLATION
[2018-05-06] MEDS: FAMOTIDINE 20 MG/50 ML IVPB 20 MG/50 ML MG IVPB SCH ×2 (11:29→21:21)
--- NOTE | 2018-05-06 12:03 | PN ---
Physical Exam: SUBJECTIVE: Patient seen and examined Patient alert, on bipap OBJECTIVE: Vital Signs Period Temp Pulse Resp BP Sys/Morgan Pulse Ox Last 24 Hr 97.3 F-98.3 F 55-135 15-24 85-161/28-80 96-100 GENERAL: The patient is awake, alert, and fully oriented, in no acute distress, increased work of breathing HEAD: Normal with no signs of trauma. EYES: PERRLA ENT: moist mucous membranes. NECK: Trachea midline LUNGS: slightly coarse breath sounds bilaterally, no crackles, no accessory muscle use. HEART: Regular rate and rhythm, S1, S2 without murmur, rub or gallop. ABDOMEN: Soft, nontender, nondistended, normoactive bowel sounds, no guarding, no rebound, no hepatosplenomegaly, no masses. EXTREMITIES: 2+ pulses, warm, well-perfused, no edema. NEUROLOGICAL: Cranial nerves II through XII grossly intact. Normal speech, gait not observed. PSYCH: Normal mood, normal affect. SKIN: Warm, dry, normal turgor, no rashes or lesions noted Laboratory Results - last 24 hr 05/05/18 05/05/18 05/05/18 05:15 16:58 22:03 WBC RBC Hgb Hct MCV MCH MCHC RDW Plt Count MPV Absolute Neuts (auto) Neutrophils % Neutrophils % (Manual) 96.0 H Band Neutrophils % 2.0 Lymphocytes % Lymphocytes % (Manual) 1.0 L D Monocytes % Monocytes % (Manual) 1 L D Eosinophils % Eosinophils % (Manual) 0.0 Basophils % Basophils % (Manual) 0.0 Myelocytes % (Man) 0 Promyelocytes % (Man) 0 Blast Cells % (Manual) 0 Nucleated RBC % Metamyelocytes 0 Hypochromia 0 Platelet Estimate Decreased Polychromasia 0 Poikilocytosis 0 Anisocytosis 1+ Microcytosis 0 Macrocytosis 1+ Ovalocytes 1+ Stomatocytes 1+ Puncture Site ABG pH ABG pCO2 at Pt Temp ABG pO2 at Pt Temp ABG HCO3 ABG O2 Sat (Measured) ABG O2 Content ABG Base Excess Pardeep Test O2 Delivery Device Oxygen Flow Rate Vent Mode Vent Rate Mechanical Rate PEEP Pressure Support Vent Sodium Potassium Chloride Carbon Dioxide Anion Gap BUN Creatinine Creat Clearance w eGFR POC Glucometer 192.08709 127.24437 Random Glucose Calcium Phosphorus Magnesium Total Bilirubin AST ALT Alkaline Phosphatase Total Protein Albumin 05/06/18 05/06/18 05/06/18 05:30 05:30 06:50 WBC 6.4 RBC 2.90 L Hgb 8.7 L Hct 27.6 L MCV 95.1 MCH 30.0 MCHC 31.5 L RDW 16.1 H Plt Count 89 L MPV 9.9 Absolute Neuts (auto) 6.1 Neutrophils % 94.9 H Neutrophils % (Manual) Band Neutrophils % Lymphocytes % 1.2 L Lymphocytes % (Manual) Monocytes % 3.8 Monocytes % (Manual) Eosinophils % 0.0 Eosinophils % (Manual) Basophils % 0.1 Basophils % (Manual) Myelocytes % (Man) Promyelocytes % (Man) Blast Cells % (Manual) Nucleated RBC % 0 Metamyelocytes Hypochromia Platelet Estimate Polychromasia Poikilocytosis Anisocytosis Microcytosis Macrocytosis Ovalocytes Stomatocytes Puncture Site Right radial ABG pH 7.41 ABG pCO2 at Pt Temp 72.2 H* ABG pO2 at Pt Temp 115.0 H ABG HCO3 44.9 H* ABG O2 Sat (Measured) 98.2 ABG O2 Content 12.6 L ABG Base Excess 17.8 H* Pardeep Test Positive O2 Delivery Device Bipap Oxygen Flow Rate 50% Vent Mode Bipap Vent Rate 18 Mechanical Rate Yes PEEP 0.0 Pressure Support Vent 20/5 Sodium 148 H Potassium 3.4 L Chloride 97 L Carbon Dioxide 45 H Anion Gap 6 L BUN 20 H Creatinine 0.2 L Creat Clearance w eGFR > 60 POC Glucometer Random Glucose 156 H Calcium 7.7 L Phosphorus 2.1 L Magnesium 2.2 Total Bilirubin 0.8 AST 16 ALT 45 Alkaline Phosphatase 65 Total Protein 4.6 L Albumin 2.2 L 05/06/18 11:38 WBC RBC Hgb Hct MCV MCH MCHC RDW Plt Count MPV Absolute Neuts (auto) Neutrophils % Neutrophils % (Manual) Band Neutrophils % Lymphocytes % Lymphocytes % (Manual) Monocytes % Monocytes % (Manual) Eosinophils % Eosinophils % (Manual) Basophils % Basophils % (Manual) Myelocytes % (Man) Promyelocytes % (Man) Blast Cells % (Manual) Nucleated RBC % Metamyelocytes Hypochromia Platelet Estimate Polychromasia Poikilocytosis Anisocytosis Microcytosis Macrocytosis Ovalocytes Stomatocytes Puncture Site ABG pH ABG pCO2 at Pt Temp ABG pO2 at Pt Temp ABG HCO3 ABG O2 Sat (Measured) ABG O2 Content ABG Base Excess Pardeep Test O2 Delivery Device Oxygen Flow Rate Vent Mode Vent Rate Mechanical Rate PEEP Pressure Support Vent Sodium Potassium Chloride Carbon Dioxide Anion Gap BUN Creatinine Creat Clearance w eGFR POC Glucometer [phone] Random Glucose Calcium Phosphorus Magnesium Total Bilirubin AST ALT Alkaline Phosphatase Total Protein Albumin Active Medications Generic Name Dose Route Start Last Admin Trade Name Freq PRN Reason Stop Dose Admin Acetaminophen 650 mg 04/23/18 13:40 05/02/18 22:40 Tylenol - PO 650 mg Q6H PRN Administration FEVER Alprazolam 0.5 mg 05/02/18 10:00 05/06/18 09:50 Xanax - PO 0.5 mg BID TA Administration Amino Acids 30 ml 04/28/18 15:00 05/06/18 09:50 Prosource No Carb Liquid Pkt PO 30 ml DAILY TA Administration Chlorhexidine Gluconate 1 applic 04/23/18 22:00 05/05/18 21:29 Hibiclens For Decolonization - TP 1 applic HS TA Administration Chlorhexidine Gluconate 15 ml 04/25/18 22:00 05/06/18 09:50 Peridex - MM 15 ml BID TA Administration Diltiazem HCl 30 mg 04/28/18 22:00 05/05/18 15:45 Cardizem - PO Not Given TID TA Enoxaparin Sodium 60 mg 05/06/18 12:00 Lovenox - SQ BID TA Escitalopram Oxalate 20 mg 05/05/18 16:00 05/06/18 09:50 Lexapro - PO 20 mg DAILY TA Administration Famotidine/Sodium Chloride 20 mg in 50 mls @ 100 mls/hr 04/24/18 10:00 11:29 Pepcid 20 Mg Premixed Ivpb - IVPB 100 mls/hr BID TA Administration Vancomycin HCl 1,000 mg in 250 mls @ 166.667 mls/hr 04/28/18 10:00 05/06/18 10:00 Vancomycin (Pre-Docked) IVPB 166.667 mls/hr BID TA Administration Protocol Diltiazem HCl 125 mg/ Sodium 125 mls @ 5 mls/hr 04/29/18 12:45 05/06/18 11:15 Chloride IVPB 10 mg/hr TITR TA 10 mls/hr Administration Protocol 5 MG/HR Amiodarone HCl/Dextrose 360 mg in 200 mls @ 16.667 mls/hr 05/05/18 20:55 11/16 10:30 Nexterone 360 Mg/200 Ml Bag IVPB 16.667 mls/hr ASDIR TA Administration Protocol 0.5 MG/MIN Potassium Phosphate 30 mm/ 260 mls @ 62.5 mls/hr 05/06/18 08:21 05/06/18 09: 49 Sodium Chloride IVPB 05/06/18 12:30 62.5 mls/hr ONCE ONE Administration Insulin Aspart 1 vial 04/24/18 11:00 05/06/18 11:44 Novolog Vial Sliding Scale - SQ 4 units ACHS TA Administration Protocol Methylprednisolone Sodium Succinate 60 mg 05/04/18 11:45 05/06/18 09:51 Solu-Medrol - IVPUSH 60 mg BID TA Administration Metoprolol Tartrate 5 mg 04/27/18 14:35 05/05/18 06:24 Lopressor Injection - IVPUSH 5 mg Q4H PRN Administration TACHYCARDIA Potassium Phos/Sodium Phos 1 packet 05/02/18 10:00 05/06/18 09:57 Phos-Nak Packet - PO 1 packet DAILY TA Administration Sodium Chloride 2 spray 04/29/18 09:00 [place] Nasal [place] - NS BID PRN NASAL CONGESTION ASSESSMENT/PLAN: Patient is a 67 yo M with history of COPD on home oxygen (3L), Interstitial lung disease, HTN, HLD, CHF, diastolic LV dysfunction, [place], CAD, GERD, hiatal hernia, recent dx of Afib with RVR, presenting to the ER with a complaint of epistaxis, hypotension and tachycardia. Now admitted to ICU for septic shock. Pt was recently admitted for MRSA bacteremia ID Septic Shock -likely 2/2 urosepsis - ID following case - source of sepsis likely urine as UA: +leuk esterase, + wbc - blood and urine culture neg, sputum culture with gram negative bacilli - CT scan chest/abd/pelvis (04/25) : L upper air filled cavity in L upper chest , R upper fluid structure(possible abscess) - unchanged from 04/01 - Keep MAP> 65 - femoral line removed, picc line removed - on methylprednisone 60mg IVP BID - home dose MRSA Bacteremia with suspicion of endocarditis, last admission - LUBNA completed (04/27) - LVEF 60-65%, moderate mitral valve prolapse, severe mitral regurgitation, mild tricuspid regurg, mild aortic regurg, mild aortic sclerosis, no vegetation - MRSA bacteremia-day #37 MRSA treatment plan total 42 days - antibiotics as per ID: vancomycin started (04/27) Heme Acute blood loss, normocytic anemia, likely 2/2 epistaxis, required 2pRBC ( resolved) - Tranfusion goal of Hb > 8 - nasal packing removed (04/27) w/o complications - ENT following (Dr. Clarke) - keep head end elevated Thrombocytopenia, baseline around 130-140 and since 03/02/18 has been decreasing to 80s, likely 2/2 sepsis and antibiotics (resolved) - Heme consulted, following case, thrombocytopenia thought to be 2/2 MRSA bacteremia Epistaxis from the L nares (resolved) - L nasal packing done in ED, ENT consulted ENT recommends nasal packing until Thursday - nasal packing removed (04/27) w/o complications - nasal saline spray bid, observe for bleeding Cardiac Diastolic LV dysfunc, CHF, phx [place], CAD, Afib w/ RVR - Last ECHO (03/31/18) - normal EF, L ventricular function normal, severe MR, moderate TR - Tele monitoring - plan to restart home lipitor - Trop: neg - cardizem gtt, amiodarone gtt, lopressor IVP - Cardiology following HTN - hypotensive 2/2 septic shock Afib - Lovenox for AC - [id number] score of 3 Pulm COPD, uses 3L home oxygen continue 3L of oxygen, patient intubated - CXR daily - CXR: RUL fluid collection (possible abscess), LINDSEY air collection unchanged from 04/01/18 - Per ID: plan for biopsy/drainage of RUL collection when extubated - Ipratroprium neb - Ventimask / Bipap as needed - plan for intubation today as patient with increased work of breathing Ortho Bilateral femoral head avascular necrosis - noted on CT abd/pelvis (04/25) - Ortho following case, Dr. Baez - No orthopedic intervention 2/2 medical status F/E/N - hold tube feeds for intubation - Electrolytes trend - Diabetic diet - Sher cath PPX DVT: lovenox GI: pepcid BID Lines, Tubes: sher, PIV Code Status: full code Dispo: Case discussed with Janett, plan to review patient on 05/07/18. If malignancy of RUL consolidation cannot be ruled out, the pt may not benefit from transfer. Discussed with family, intubation, trach moving forward, reassessment of code status. Plan for intubation today. Visit type - Emergency Visit Emergency Visit: No - New Patient This patient is new to me today: No - Critical Care Critical Care patient: No
--- NOTE | 2018-05-06 12:21 | PN ---
Progress Note, [employer] - Note Progress Note: Laboratory Tests 05/06/18 05:30 WBC 6.4 Per nursing, cough is weaker and limited gag. Impaired airway protection. Pt still on BIPAP, now with NGT feedings. Case discussed with medical team. Considering intubation with OGT
[2018-05-06] MEDS ORDERED: ROCURONIUM BROMIDE 50 MG/5 ML VIAL IVPUSH ONE ×2 (13:42)
[2018-05-06] MEDS ORDERED: ETOMIDATE 40 MG/20 ML VIAL IVPUSH ONE (13:44)
[2018-05-06] MEDS ORDERED: ETOMIDATE 20 MG/10 ML AMPUL IVPUSH ONE (14:07)
[2018-05-06] MEDS ORDERED: PROPOFOL 20 ML ONE (14:10)
[2018-05-06] MEDS ORDERED: MIDAZOLAM HCL 5 MG/1 ML Single Dose Vial IVPUSH ONE (14:29)
[2018-05-06] MEDS ORDERED: PROPOFOL 200 MG/20 ML VIAL IVPUSH ONE ×2 (14:30→15:19)
--- NOTE | 2018-05-06 14:45 | PN ---
Teaching Attending Note Name of Resident: Candida Parnell ATTENDING PHYSICIAN STATEMENT I saw and evaluated the patient. I reviewed the resident's note and discussed the case with the resident. I agree with the resident's findings and plan as documented. SUBJECTIVE: Patient seen and examined in the ICU. Remains extubated. Moderately to severely tachypneic on NIPPV. AFib requiring IV Cardizem drip and Amiodarone. No pressors. No CP. Intake & Output 05/03/18 05/04/18 05/05/18 05/06/18 23:59 23:59 23:59 23:59 Intake Total 1237 1595 550 624 Output Total 1075 1300 750 200 Balance 162 295 -200 424 Weight 137 lb 12.623 oz 138 lb 3.677 oz 137 lb 9.095 oz 136 lb 10.986 oz Last Vital Signs Temp Pulse Resp BP Pulse Ox 97.7 F 122 H 22 H 125/65 100 05/06/18 10:00 05/06/18 12:00 05/06/18 12:00 05/06/18 12:00 05/06/18 13:00 Active Medications Acetaminophen (Tylenol -) 650 mg PO Q6H PRN PRN Reason: FEVER Last Admin: 05/02/18 22:40 Dose: 650 mg Alprazolam (Xanax -) 0.5 mg PO BID [facility] Last Admin: 05/06/18 09:50 Dose: 0.5 mg Amino Acids (Prosource No Carb Liquid Pkt) 30 ml PO DAILY [facility] Last Admin: 05/06/18 09:50 Dose: 30 ml Chlorhexidine Gluconate (Hibiclens For Decolonization -) 1 applic TP HS [facility] Last Admin: 05/05/18 21:29 Dose: 1 applic Chlorhexidine Gluconate (Peridex -) 15 ml MM BID [facility] Last Admin: 05/06/18 09:50 Dose: 15 ml Diltiazem HCl (Cardizem -) 30 mg PO TID [facility] Last Admin: 05/05/18 15:45 Dose: Not Given Enoxaparin Sodium (Lovenox -) 60 mg SQ BID [facility] Escitalopram Oxalate (Lexapro -) 20 mg PO DAILY [facility] Last Admin: 05/06/18 09:50 Dose: 20 mg Famotidine/Sodium Chloride (Pepcid 20 Mg Premixed Ivpb -) 20 mg in 50 mls @ 100 mls/hr IVPB BID [facility] Last Admin: 05/06/18 11:29 Dose: 100 mls/hr Vancomycin HCl (Vancomycin (Pre-Docked)) 1,000 mg in 250 mls @ 166.667 mls/hr IVPB BID [facility]; Protocol Last Admin: 05/06/18 10:00 Dose: 166.667 mls/hr Diltiazem HCl 125 mg/ Sodium (Chloride) 125 mls @ 5 mls/hr IVPB TITR [facility]; Protocol Last Admin: 05/06/18 11:15 Dose: 10 mg/hr, 10 mls/hr Amiodarone HCl/Dextrose (Nexterone 360 Mg/200 Ml Bag) 360 mg in 200 mls @ 16.667 mls/hr IVPB ASDIR [facility]; Protocol Last Admin: 05/06/18 10:30 Dose: 16.667 mls/hr Propofol (Diprivan -) 1,000,000 mcg in 100 mls @ 1.86 mls/hr IVPB TITR [facility]; Protocol Insulin Aspart (Novolog Vial Sliding Scale -) 1 vial SQ ACHS [facility]; Protocol Last Admin: 05/06/18 11:44 Dose: 4 units Methylprednisolone Sodium Succinate (Solu-Medrol -) 60 mg IVPUSH BID [facility] Last Admin: 05/06/18 09:51 Dose: 60 mg Metoprolol Tartrate (Lopressor Injection -) 5 mg IVPUSH Q4H PRN PRN Reason: TACHYCARDIA Last Admin: 05/05/18 06:24 Dose: 5 mg Potassium Phos/Sodium Phos (Phos-Nak Packet -) 1 packet PO DAILY [facility] Last Admin: 05/06/18 09:57 Dose: 1 packet Sodium Chloride ([place] -) 2 spray NS BID PRN PRN Reason: NASAL CONGESTION Gen: Moderately to severely tachypneic on NIPPV Heart: tachycardic, irregular Lung: scattered rhonchi Abd: soft, nontender Ext: no edema Laboratory Results - last 24 hr 05/05/18 05/05/18 05/06/18 16:58 22:03 05:30 WBC 6.4 RBC 2.90 L Hgb 8.7 L Hct 27.6 L MCV 95.1 MCH 30.0 MCHC 31.5 L RDW 16.1 H Plt Count 89 L MPV 9.9 Absolute Neuts (auto) 6.1 Neutrophils % 94.9 H Neutrophils % (Manual) 95.0 H Band Neutrophils % 2.0 Lymphocytes % 1.2 L Lymphocytes % (Manual) 1.0 L Monocytes % 3.8 Monocytes % (Manual) 1 L Eosinophils % 0.0 Eosinophils % (Manual) 0.0 Basophils % 0.1 Basophils % (Manual) 0.0 Myelocytes % (Man) 1 D Promyelocytes % (Man) 0 Blast Cells % (Manual) 0 Nucleated RBC % 0 Metamyelocytes 0 Hypochromia 1+ Platelet Estimate Decreased Polychromasia 1+ Poikilocytosis 0 Anisocytosis 1+ Microcytosis 0 Macrocytosis 1+ Puncture Site ABG pH ABG pCO2 at Pt Temp ABG pO2 at Pt Temp ABG HCO3 ABG O2 Sat (Measured) ABG O2 Content ABG Base Excess Pardeep Test O2 Delivery Device Oxygen Flow Rate Vent Mode Vent Rate Mechanical Rate PEEP Pressure Support Vent Sodium Potassium Chloride Carbon Dioxide Anion Gap BUN Creatinine Creat Clearance w eGFR POC Glucometer 192.41459 127.89120 Random Glucose Calcium Phosphorus Magnesium Total Bilirubin AST ALT Alkaline Phosphatase Total Protein Albumin 05/06/18 05/06/18 05/06/18 05:30 06:50 11:38 WBC RBC Hgb Hct MCV MCH MCHC RDW Plt Count MPV Absolute Neuts (auto) Neutrophils % Neutrophils % (Manual) Band Neutrophils % Lymphocytes % Lymphocytes % (Manual) Monocytes % Monocytes % (Manual) Eosinophils % Eosinophils % (Manual) Basophils % Basophils % (Manual) Myelocytes % (Man) Promyelocytes % (Man) Blast Cells % (Manual) Nucleated RBC % Metamyelocytes Hypochromia Platelet Estimate Polychromasia Poikilocytosis Anisocytosis Microcytosis Macrocytosis Puncture Site Right radial ABG pH 7.41 ABG pCO2 at Pt Temp 72.2 H* ABG pO2 at Pt Temp 115.0 H ABG HCO3 44.9 H* ABG O2 Sat (Measured) 98.2 ABG O2 Content 12.6 L ABG Base Excess 17.8 H* Pardeep Test Positive O2 Delivery Device Bipap Oxygen Flow Rate 50% Vent Mode Bipap Vent Rate 18 Mechanical Rate Yes PEEP 0.0 Pressure Support Vent 20/5 Sodium 148 H Potassium 3.4 L Chloride 97 L Carbon Dioxide 45 H Anion Gap 6 L BUN 20 H Creatinine 0.2 L Creat Clearance w eGFR > 60 POC Glucometer 232.79095 Random Glucose 156 H Calcium 7.7 L Phosphorus 2.1 L Magnesium 2.2 Total Bilirubin 0.8 AST 16 ALT 45 Alkaline Phosphatase 65 Total Protein 4.6 L Albumin 2.2 L ASSESSMENT AND PLAN: Acute on Chronic Hypoxic and Hypercapneic Respiratory Failure UTI Septic Shock Lactic Acidosis Epistaxis Acute on Chronic Diastolic Heart Failure Severe Mitral Regurgitation Thrombocytopenia CAD COPD Pulmonary HTN Paroxysmal Atrial Fibrillation HTN Hypercholesterolemia Endocarditis ruled out - D/W family: will intubate - ABX per ID - monitor urine output, creatinine - monitor CBC - AC - Medrol - inhaled bronchodilators - DVT/GI prophylaxis - ICU monitoring Dr Donovan Critical care time spent in reviewing chart, evaluating patient and formulating plan 35 min
[2018-05-06] MEDS: PROPOFOL 1,000,000 MCG/100 ML VIAL IVPB SCH (14:53)
--- NOTE | 2018-05-06 14:54 | PROC ---
Intubation - Intubation Reason for Intubation: Respiratory Failure Blade used: Glidescope Tube Size (cm): 8.0 Tube position @ lip (cm): 24 Tube position confirmed by: CO2 detector, Chest x-ray, Breath sounds Breath Sounds after Intubation: equal Post Intubation Xray: Yes (pending XR) Remarks: Supervised by Dr. Donovan. Versed used for induction. Intubated using glidescope. Significant purulent appearing secretion were suctioned through the ET tube. O2 sat > 95% on mechanical ventilation. AC settings at 14/500/45/5
--- NOTE | 2018-05-06 14:55 | PN ---
Progress Note (short form) - Note Progress Note: just reintubated sedated Vital Signs Period Temp Pulse Resp BP Sys/Morgan Pulse Ox Last 24 Hr 97.3 F-98.3 F 55-135 15-22 85-138/28-78 96-100 cor-rrr lungs decreased bs at bases abd soft,nt ext no edema +ecchymoses CBC, BMP 05/06/18 05:30 05/06/18 05:30 cxray - ?bibasilar infiltrates moderate to severe MR on LUBNA- no vegetation vanco trough 16.6 -12/3 Microbiology 04/23/18 11:30 Blood - Peripheral Venous Blood Culture - Final Campylobacter Gracilis 04/28/18 12:27 Blood - Peripheral Venous Blood Culture - Final NO GROWTH AFTER 5 DAYS INCUBATION 04/28/18 12:46 Blood - Peripheral Venous Blood Culture - Final NO GROWTH AFTER 5 DAYS INCUBATION 04/23/18 12:52 Blood - Peripheral Venous Blood Culture - Final NO GROWTH AFTER 5 DAYS INCUBATION 04/24/18 18:00 Sputum - Endotrachea Suction/Ventilator Gram Stain - Final 04/24/18 18:00 Sputum - Endotrachea Suction/Ventilator Sputum Culture - Final Enterobacter Aerogenes 04/26/18 10:00 Urine - Urine Bowling Legionella Antigen - Final 04/26/18 10:00 Urine - Urine Bowling Streptococcus pneumoniae Antigen (M - Final 04/23/18 13:00 Urine - Urine Clean Catch Urine Culture - Final NO GROWTH OBTAINED Current Medications Acetaminophen (Tylenol -) 650 mg PO Q6H PRN PRN Reason: FEVER Last Admin: 05/02/18 22:40 Dose: 650 mg Amino Acids (Prosource No Carb Liquid Pkt) 30 ml PO DAILY [facility] Last Admin: 05/06/18 09:50 Dose: 30 ml Chlorhexidine Gluconate (Hibiclens For Decolonization -) 1 applic TP HS [facility] Last Admin: 05/05/18 21:29 Dose: 1 applic Chlorhexidine Gluconate (Peridex -) 15 ml MM BID [facility] Last Admin: 05/06/18 09:50 Dose: 15 ml Diltiazem HCl (Cardizem -) 30 mg PO TID [facility] Enoxaparin Sodium (Lovenox -) 60 mg SQ BID [facility] Last Admin: 05/06/18 15:14 Dose: 60 mg Escitalopram Oxalate (Lexapro -) 20 mg PO DAILY [facility] Last Admin: 05/06/18 09:50 Dose: 20 mg Famotidine/Sodium Chloride (Pepcid 20 Mg Premixed Ivpb -) 20 mg in 50 mls @ 100 mls/hr IVPB BID [facility] Last Admin: 05/06/18 11:29 Dose: 100 mls/hr Vancomycin HCl (Vancomycin (Pre-Docked)) 1,000 mg in 250 mls @ 166.667 mls/hr IVPB BID [facility]; Protocol Last Admin: 05/06/18 10:00 Dose: 166.667 mls/hr Amiodarone HCl/Dextrose (Nexterone 360 Mg/200 Ml Bag) 360 mg in 200 mls @ 16.667 mls/hr IVPB ASDIR [facility]; Protocol Last Admin: 05/06/18 10:30 Dose: 16.667 mls/hr Propofol (Diprivan -) 1,000,000 mcg in 100 mls @ 1.86 mls/hr IVPB TITR [facility]; Protocol Last Admin: 05/06/18 14:53 Dose: 5 mcg/kg/min, 1.86 mls/hr Insulin Aspart (Novolog Vial Sliding Scale -) 1 vial SQ ACHS [facility]; Protocol Last Admin: 05/06/18 11:44 Dose: 4 units Methylprednisolone Sodium Succinate (Solu-Medrol -) 60 mg IVPUSH BID [facility] Last Admin: 05/06/18 09:51 Dose: 60 mg Metoprolol Tartrate (Lopressor Injection -) 5 mg IVPUSH Q4H PRN PRN Reason: TACHYCARDIA Last Admin: 05/05/18 06:24 Dose: 5 mg Potassium Phos/Sodium Phos (Phos-Nak Packet -) 1 packet PO DAILY [facility] Last Admin: 05/06/18 09:57 Dose: 1 packet Sodium Chloride ([place] Nasal [place] -) 2 spray NS BID PRN PRN Reason: NASAL CONGESTION a/p FUO respiratory failure-now re intubated- ?bibasilar pneumonia vs CHF- sputum culture, blood cultures, resume meropenem, prior sputum culture with enterobacter MRSA bacteremia-day #38 MRSA treatment plan total 42 days-continue vancomycin, check trough before next dose LUBNA no vegetations-severe mitral regurgitation thrombocytopenia-platelets are recovering endstage COPD afib with RVR apical lung mass? suspect transient campylobacter gracilis bacteremia- one bottle-just identified today - got 4 days meropenem, repeat blood cultures negative continue vancomycin, trough acceptable overall prognosis is guarded d/w at bedside over 40 minutes spent in the care of this critically ill ICU patient Problem List - Problems (1) Sepsis Code(s): A41.9 - SEPSIS, UNSPECIFIED ORGANISM (2) Epistaxis, recurrent Code(s): R04.0 - EPISTAXIS (3) MRSA bacteremia Code(s): R78.81 - BACTEREMIA
[2018-05-06] MEDS ORDERED: dilTIAZem HCL 30 MG TABLET (FP) PO ONE (15:06)
[2018-05-06] MEDS: ENOXAPARIN NA (PORCINE) 60 MG/0.6 ML DISP.SYRIN SQ SCH ×2 (15:14→21:21)
[2018-05-06] MEDS: MEROPENEM 1 GM in DEXTROSE 5%-WATER 100 ML IVPB SCH (17:34)
[2018-05-06] MEDS ORDERED: PT OWN MED DRAWER 7, Y5N ONE (17:38)
[2018-05-06 18:42] LABS: ARTERIAL BLOOD GAS PO2 90.5 mmHg (80-100); ARTERIAL BLOOD GAS pH 7.48 (7.35-7.45)
[2018-05-06 18:46] LABS: ALLENS TEST POSITIVE
[2018-05-06 18:58] LABS: ARTERIAL BLOOD GAS BASE EXCESS 19.5 meq/l (-2-2); ARTERIAL BLOOD GAS PCO2 61.3 mmHg (35-45)
[2018-05-06] MEDS ORDERED: MIDAZOLAM HCL 2 MG/2 ML SINGLE DOSE VIAL IVPUSH PRN (20:55)
[2018-05-06] MEDS ORDERED: FENTANYL INJECTION 500 MCG in DEXTROSE 5%-WATER - 90 ML IVPB SCH (21:00)
[2018-05-06] MEDS: dilTIAZem HCL 30 MG TABLET (FP) PO SCH (21:20)
[2018-05-06] MEDS ORDERED: fentaNYL CITRATE 250 MCG/5 ML VIAL ONE (21:53)
[2018-05-06] MEDS: CHLORHEXIDINE GLUCONATE 4% CLEANSER FOR DECOLONIZATION TP SCH (22:37)
[2018-05-07] MEDS ORDERED: PT OWN MED DRAWER 7, Y5N ONE ×3 (01:37→18:21)
[2018-05-07] MEDS: MEROPENEM 1 GM in DEXTROSE 5%-WATER 100 ML IVPB SCH ×3 (01:49→18:42)
[2018-05-07] MEDS: dilTIAZem HCL 30 MG TABLET (FP) PO SCH ×3 (05:22→22:46)
[2018-05-07 05:44] LABS: BASO % 0.2 % (0-2.0); HEMATOCRIT 26.7 % (35.4-49); HEMOGLOBIN 8.4 GM/dL (11.7-16.9); MCH 29.5 pg (25.7-33.7); MCHC 31.3 g/dl (32.0-35.9); MEAN CELL VOLUME 94.2 fl (80-96); MEAN PLT VOLUME 10.2 fl (7.5-11.1); MONO % 2.8 % (3.8-10.2); PLATELET COUNT 95 K/MM3 (134-434); RBC 2.84 M/mm3 (4.00-5.60); RDW 16.3 % (11.9-15.9); WHITE BLOOD COUNT 7.6 K/mm3 (4.0-10.0)
[2018-05-07 07:03] LABS: ARTERIAL BLD GAS O2 SATURATION 97.8 % (90-98.9); ARTERIAL BLOOD GAS PCO2 52.4 mmHg (35-45); ARTERIAL BLOOD GAS pH 7.47 (7.35-7.45)
[2018-05-07] MEDS: INSULIN SLIDING SCALE (NOVOLOG) 1 VIAL SQ SCH ×4 (07:03→22:45)
[2018-05-07 07:11] LABS: ALLENS TEST POSITIVE
[2018-05-07 07:14] LABS: ALBUMIN 2.1 g/dl (3.4-5.0); ALK PHOS 225 U/L (45-117); ANION GAP 5 MMOL/L (8-16); BILIRUBIN,TOTAL 1.2 mg/dL (0.2-1); BLOOD UREA NITROGEN 24 mg/dL (7-18); CALCIUM 7.9 mg/dL (8.5-10.1); CHLORIDE 95 mmol/L (98-107); CO2 44 mmol/L (21-32); CREATININE 0.4 mg/dL (0.55-1.3); GLUCOSE,RANDOM 195 mg/dL (74-106); MAGNESIUM 2.2 mg/dL (1.8-2.4); PHOSPHOROUS 2.7 mg/dL (2.5-4.9); POTASSIUM 3.4 mmol/L (3.5-5.1); SGOT/AST 40 U/L (15-37); SGPT/ALT 80 U/L (13-61); SODIUM 145 mmol/L (136-145); TOT PROT 4.6 g/dl (6.4-8.2)
[2018-05-07] MEDS: AMINO ACIDS/PROTEIN HYDROLYS 30 ML LIQUID.PKT PO SCH (09:08)
[2018-05-07] MEDS: FAMOTIDINE 20 MG/50 ML IVPB 20 MG/50 ML MG IVPB SCH ×2 (09:08→22:50)
[2018-05-07] MEDS: ESCITALOPRAM OXALATE 20 MG TABLET (FP) PO SCH (09:08)
[2018-05-07] MEDS: ENOXAPARIN NA (PORCINE) 60 MG/0.6 ML DISP.SYRIN SQ SCH ×2 (09:09→22:51)
[2018-05-07] MEDS: NAPH,MB-DB/K PH,MBDB POWDER PACKET PO SCH (09:09)
[2018-05-07] MEDS: CHLORHEXIDINE GLUCONATE 0.12% 15ML CUP MM SCH ×2 (09:09→22:52)
[2018-05-07] MEDS: methylPREDNISolone NA SUCC 40 MG/1 ML VIAL IVPUSH SCH ×2 (09:09→22:52)
--- NOTE | 2018-05-07 10:04 | PN ---
Progress Note, Physician History of Present Illness: Intubated PAST 24H Sedated on ventilator BC GNR Afebrile WBC WNL - Current Medication List Current Medications: Active Medications Acetaminophen (Tylenol -) 650 mg PO Q6H PRN PRN Reason: FEVER Last Admin: 05/02/18 22:40 Dose: 650 mg Amino Acids (Prosource No Carb Liquid Pkt) 30 ml PO DAILY [facility] Last Admin: 05/07/18 09:08 Dose: 30 ml Chlorhexidine Gluconate (Hibiclens For Decolonization -) 1 applic TP HS [facility] Last Admin: 05/06/18 22:37 Dose: 1 applic Chlorhexidine Gluconate (Peridex -) 15 ml MM BID [facility] Last Admin: 05/07/18 09:09 Dose: 15 ml Diltiazem HCl (Cardizem -) 30 mg PO TID [facility] Last Admin: 05/07/18 05:22 Dose: 30 mg Enoxaparin Sodium (Lovenox -) 60 mg SQ BID [facility] Last Admin: 05/07/18 09:09 Dose: 60 mg Escitalopram Oxalate (Lexapro -) 20 mg PO DAILY [facility] Last Admin: 05/07/18 09:08 Dose: 20 mg Famotidine/Sodium Chloride (Pepcid 20 Mg Premixed Ivpb -) 20 mg in 50 mls @ 100 mls/hr IVPB BID [facility] Last Admin: 05/07/18 09:08 Dose: 100 mls/hr Vancomycin HCl (Vancomycin (Pre-Docked)) 1,000 mg in 250 mls @ 166.667 mls/hr IVPB BID [facility]; Protocol Last Admin: 05/06/18 21:22 Dose: 166.667 mls/hr Propofol (Diprivan -) 1,000,000 mcg in 100 mls @ 1.86 mls/hr IVPB TITR [facility]; Protocol Last Titration: 05/07/18 03:00 Dose: 10 mcg/kg/min, 3.72 mls/hr Meropenem 1 gm/ Dextrose 100 mls @ 200 mls/hr IVPB Q8H-IV [facility] Last Admin: 05/07/18 09:08 Dose: 200 mls/hr Insulin Aspart (Novolog Vial Sliding Scale -) 1 vial SQ ACHS [facility]; Protocol Last Admin: 05/07/18 07:03 Dose: 4 units Methylprednisolone Sodium Succinate (Solu-Medrol -) 60 mg IVPUSH BID [facility] Last Admin: 05/07/18 09:09 Dose: 60 mg Metoprolol Tartrate (Lopressor Injection -) 5 mg IVPUSH Q4H PRN PRN Reason: TACHYCARDIA Last Admin: 05/05/18 06:24 Dose: 5 mg Potassium Phos/Sodium Phos (Phos-Nak Packet -) 1 packet PO DAILY [facility] Last Admin: 05/07/18 09:09 Dose: 1 packet Sodium Chloride ([place] Nasal [place] -) 2 spray NS BID PRN PRN Reason: NASAL CONGESTION - Objective Vital Signs: Vital Signs Temperature 98.7 F 05/07/18 06:00 Pulse Rate 77 05/07/18 06:00 Respiratory Rate 19 05/07/18 09:22 Blood Pressure 127/65 05/07/18 06:00 O2 Sat by Pulse Oximetry (%) 97 05/07/18 06:00 Constitutional: Yes: No Distress Eyes: Yes: Conjunctiva Clear Cardiovascular: Yes: Regular Rate and Rhythm, S1, S2 Respiratory: Yes: Mechanically Ventilated Gastrointestinal: Yes: Normal Bowel Sounds, Soft, Other (sl distended). No: Tenderness Edema: Yes Edema: LLE: 1+, RLE: 1+ Labs: CBC, BMP 05/07/18 05:30 05/07/18 05:30 INR, PTT INR 1.14 (0.83-1.09) H 04/27/18 08:31 Assessment/Plan Respiratory failure Acute exacerbation COPD Sepsis + BC GNR MRSA bacteremia Continue hemodynamic/ ventilatory support Await blood c/s Continue vancomycin/ meropenem Prognosis guarded
--- NOTE | 2018-05-07 11:26 | PN ---
Physical Exam: SUBJECTIVE: Patient seen and examined Intubated and sedated. OBJECTIVE: Vital Signs Period Temp Pulse Resp BP Sys/Morgan Pulse Ox Last 24 Hr 97.3 F-98.7 F 60-122 14-22 82-147/50-74 95-100 GENERAL: The patient is intubated and sedated HEAD: Normal with no signs of trauma. EYES: PERRLA, extraocular movements intact, sclera anicteric, conjunctiva clear. No ptosis. ENT: moist mucous membranes. NECK: Trachea midline LUNGS: + coarse breath sounds bilaterally, no wheezes, no crackles, no accessory muscle use. HEART: Regular rate and rhythm, S1, S2 without murmur, rub or gallop. ABDOMEN: Soft, nontender, nondistended, normoactive bowel sounds, no guarding, no rebound EXTREMITIES: 2+ pulses, warm, well-perfused, no edema. NEUROLOGICAL: intubated and sedated SKIN: Warm, dry, normal turgor, no rashes or lesions noted Laboratory Results - last 24 hr 05/05/18 05/06/18 05/06/18 22:03 05:30 11:38 WBC RBC Hgb Hct MCV MCH MCHC RDW Plt Count MPV Absolute Neuts (auto) Neutrophils % Neutrophils % (Manual) 95.0 H Band Neutrophils % 2.0 Lymphocytes % Lymphocytes % (Manual) 1.0 L Monocytes % Monocytes % (Manual) 1 L Eosinophils % Eosinophils % (Manual) 0.0 Basophils % Basophils % (Manual) 0.0 Myelocytes % (Man) 1 D Promyelocytes % (Man) 0 Blast Cells % (Manual) 0 Nucleated RBC % Metamyelocytes 0 Hypochromia 1+ Platelet Estimate Decreased Polychromasia 1+ Poikilocytosis 0 Anisocytosis 1+ Microcytosis 0 Macrocytosis 1+ Anticoagulation Therapy Puncture Site ABG pH ABG pCO2 at Pt Temp ABG pO2 at Pt Temp ABG HCO3 ABG O2 Sat (Measured) ABG O2 Content ABG Base Excess Pardeep Test O2 Delivery Device Oxygen Flow Rate Vent Mode Vent Rate Mechanical Rate PEEP Pressure Support Vent Sodium Potassium Chloride Carbon Dioxide Anion Gap BUN Creatinine Creat Clearance w eGFR POC Glucometer 127.48556 232.63187 Random Glucose Calcium Phosphorus Magnesium Total Bilirubin AST ALT Alkaline Phosphatase B-Natriuretic Peptide Total Protein Albumin Vancomycin Pre-Dose 05/06/18 05/06/18 05/06/18 16:55 18:30 22:13 WBC RBC Hgb Hct MCV MCH MCHC RDW Plt Count MPV Absolute Neuts (auto) Neutrophils % Neutrophils % (Manual) Band Neutrophils % Lymphocytes % Lymphocytes % (Manual) Monocytes % Monocytes % (Manual) Eosinophils % Eosinophils % (Manual) Basophils % Basophils % (Manual) Myelocytes % (Man) Promyelocytes % (Man) Blast Cells % (Manual) Nucleated RBC % Metamyelocytes Hypochromia Platelet Estimate Polychromasia Poikilocytosis Anisocytosis Microcytosis Macrocytosis Anticoagulation Therapy No Result Required. Puncture Site Left radial ABG pH 7.48 H ABG pCO2 at Pt Temp 61.3 H* ABG pO2 at Pt Temp 90.5 D ABG HCO3 45.6 H* ABG O2 Sat (Measured) 98.0 ABG O2 Content 11.1 L ABG Base Excess 19.5 H* Pardeep Test Positive O2 Delivery Device Vent esprit Oxygen Flow Rate 45% Vent Mode No Result Required. Vent Rate No Result Required. Mechanical Rate No Result Required. PEEP Pressure Support Vent No Result Required. Sodium Potassium Chloride Carbon Dioxide Anion Gap BUN Creatinine Creat Clearance w eGFR POC Glucometer 163.49662 140.84655 Random Glucose Calcium Phosphorus Magnesium Total Bilirubin AST ALT Alkaline Phosphatase B-Natriuretic Peptide Total Protein Albumin Vancomycin Pre-Dose 05/07/18 05/07/18 05/07/18 05:17 05:30 05:30 WBC 7.6 RBC 2.84 L Hgb 8.4 L Hct 26.7 L MCV 94.2 MCH 29.5 MCHC 31.3 L RDW 16.3 H Plt Count 95 L MPV 10.2 Absolute Neuts (auto) 7.3 Neutrophils % 96.0 H Neutrophils % (Manual) 86.7 H Band Neutrophils % 5.7 Lymphocytes % 1.0 L Lymphocytes % (Manual) 5.7 L D Monocytes % 2.8 L Monocytes % (Manual) 0 L D Eosinophils % 0.0 Eosinophils % (Manual) 0.0 Basophils % 0.2 Basophils % (Manual) 0.0 Myelocytes % (Man) 0 D Promyelocytes % (Man) 0 Blast Cells % (Manual) 0 Nucleated RBC % 0 Metamyelocytes 1 D Hypochromia Platelet Estimate Polychromasia Poikilocytosis Anisocytosis Microcytosis Macrocytosis Anticoagulation Therapy Puncture Site ABG pH ABG pCO2 at Pt Temp ABG pO2 at Pt Temp ABG HCO3 ABG O2 Sat (Measured) ABG O2 Content ABG Base Excess Pardeep Test O2 Delivery Device Oxygen Flow Rate Vent Mode Vent Rate Mechanical Rate PEEP Pressure Support Vent Sodium 145 Potassium 3.4 L Chloride 95 L Carbon Dioxide 44 H Anion Gap 5 L BUN 24 H Creatinine 0.4 L Creat Clearance w eGFR > 60 POC Glucometer 218.84507 Random Glucose 195 H Calcium 7.9 L Phosphorus 2.7 Magnesium 2.2 Total Bilirubin 1.2 H AST 40 H ALT 80 H Alkaline Phosphatase 225 H B-Natriuretic Peptide Total Protein 4.6 L Albumin 2.1 L Vancomycin Pre-Dose 05/07/18 05/07/18 05/07/18 05:30 06:50 09:13 WBC RBC Hgb Hct MCV MCH MCHC RDW Plt Count MPV Absolute Neuts (auto) Neutrophils % Neutrophils % (Manual) Band Neutrophils % Lymphocytes % Lymphocytes % (Manual) Monocytes % Monocytes % (Manual) Eosinophils % Eosinophils % (Manual) Basophils % Basophils % (Manual) Myelocytes % (Man) Promyelocytes % (Man) Blast Cells % (Manual) Nucleated RBC % Metamyelocytes Hypochromia Platelet Estimate Polychromasia Poikilocytosis Anisocytosis Microcytosis Macrocytosis Anticoagulation Therapy Puncture Site Left radial ABG pH 7.47 H ABG pCO2 at Pt Temp 52.4 H ABG pO2 at Pt Temp 138.0 H D ABG HCO3 38.0 H ABG O2 Sat (Measured) 97.8 ABG O2 Content 11.6 L ABG Base Excess 13.0 H Pardeep Test Positive O2 Delivery Device Vent Oxygen Flow Rate 45% Vent Mode Vent Rate 14 Mechanical Rate Yes PEEP 5.0 Pressure Support Vent Sodium Potassium Chloride Carbon Dioxide Anion Gap BUN Creatinine Creat Clearance w eGFR POC Glucometer Random Glucose Calcium Phosphorus Magnesium Total Bilirubin AST ALT Alkaline Phosphatase B-Natriuretic Peptide 610.3 H Total Protein Albumin Vancomycin Pre-Dose 23.9 Active Medications Generic Name Dose Route Start Last Admin Trade Name Freq PRN Reason Stop Dose Admin Acetaminophen 650 mg 04/23/18 13:40 05/02/18 22:40 Tylenol - PO 650 mg Q6H PRN Administration FEVER Amino Acids 30 ml 04/28/18 15:00 05/07/18 09:08 Prosource No Carb Liquid Pkt PO 30 ml DAILY [facility] Administration Chlorhexidine Gluconate 1 applic 04/23/18 22:00 05/06/18 22:37 Hibiclens For Decolonization - TP 1 applic HS [facility] Administration Chlorhexidine Gluconate 15 ml 04/25/18 22:00 05/07/18 09:09 Peridex - MM 15 ml BID [facility] Administration Diltiazem HCl 30 mg 05/06/18 22:00 05/07/18 05:22 Cardizem - PO 30 mg TID [facility] Administration Enoxaparin Sodium 60 mg 05/06/18 12:00 05/07/18 09:09 Lovenox - SQ 60 mg BID [facility] Administration Escitalopram Oxalate 20 mg 05/05/18 16:00 05/07/18 09:08 Lexapro - PO 20 mg DAILY [facility] Administration Famotidine/Sodium Chloride 20 mg in 50 mls @ 100 mls/hr 04/24/18 10:00 09:08 Pepcid 20 Mg Premixed Ivpb - IVPB 100 mls/hr BID [facility] Administration Vancomycin HCl 1,000 mg in 250 mls @ 166.667 mls/hr 04/28/18 10:00 05/06/18 21:22 Vancomycin (Pre-Docked) IVPB 166.667 mls/hr BID [facility] Administration Protocol Propofol 1,000,000 mcg in 100 mls @ 1.86 mls/hr 05/06/18 14:00 05/07/18 03:00 Diprivan - IVPB 10 mcg/kg/min TITR [facility] 3.72 mls/hr Titration Protocol 5 MCG/KG/MIN Meropenem 1 gm/ Dextrose 100 mls @ 200 mls/hr 05/06/18 18:00 05/07/18 09:08 IVPB 200 mls/hr Q8H-IV [facility] Administration Insulin Aspart 1 vial 04/24/18 11:00 05/07/18 07:03 Novolog Vial Sliding Scale - SQ 4 units ACHS [facility] Administration Protocol Methylprednisolone Sodium Succinate 60 mg 05/04/18 11:45 05/07/18 09:09 Solu-Medrol - IVPUSH 60 mg BID [facility] Administration Metoprolol Tartrate 5 mg 04/27/18 14:35 05/05/18 06:24 Lopressor Injection - IVPUSH 5 mg Q4H PRN Administration TACHYCARDIA Potassium Phos/Sodium Phos 1 packet 05/02/18 10:00 05/07/18 09:09 Phos-Nak Packet - PO 1 packet DAILY [facility] Administration Sodium Chloride 2 spray 04/29/18 09:00 [place] Nasal [place] - NS BID PRN NASAL CONGESTION ASSESSMENT/PLAN: Patient is a 67 yo M with history of COPD on home oxygen (3L), Interstitial lung disease, HTN, HLD, CHF, diastolic LV dysfunction, GA, CAD, GERD, hiatal hernia, recent dx of Afib with RVR, presenting to the ER with a complaint of epistaxis, hypotension and tachycardia. Now admitted to ICU for septic shock. Pt was recently admitted for MRSA bacteremia ID Septic Shock -likely 2/2 urosepsis - ID following case - source of sepsis likely urine as UA: +leuk esterase, + wbc - blood and urine culture neg, sputum culture with gram negative bacilli - CT scan chest/abd/pelvis (04/25) : L upper air filled cavity in L upper chest , R upper fluid structure(possible abscess) - unchanged from 04/01 - Keep MAP> 65 - femoral line removed, picc line removed - on methylprednisone 60mg IVP BID - home dose MRSA Bacteremia with suspicion of endocarditis, last admission - LUBNA completed (04/27) - LVEF 60-65%, moderate mitral valve prolapse, severe mitral regurgitation, mild tricuspid regurg, mild aortic regurg, mild aortic sclerosis, no vegetation - MRSA bacteremia-day #38 MRSA treatment plan total 42 days - antibiotics as per ID: vancomycin started (04/27) - blood cultures sent on 04/06 - gram negative bacilli Heme Acute blood loss, normocytic anemia, likely 2/2 epistaxis, required 2pRBC ( resolved) - Tranfusion goal of Hb > 8 - nasal packing removed (04/27) w/o complications - ENT following (Dr. Clarke) - keep head end elevated Thrombocytopenia, baseline around 130-140 and since 03/02/18 has been decreasing to 80s, likely 2/2 sepsis and antibiotics (resolved) - Heme consulted, following case, thrombocytopenia thought to be 2/2 MRSA bacteremia Epistaxis from the L nares (resolved) - L nasal packing done in ED, ENT consulted ENT recommends nasal packing until Thursday - nasal packing removed (04/27) w/o complications - nasal saline spray bid, observe for bleeding Cardiac Diastolic LV dysfunc, CHF, phx GA, CAD, Afib w/ RVR - Last ECHO (03/31/18) - normal EF, L ventricular function normal, severe MR, moderate TR - Tele monitoring - plan to restart home lipitor - Trop: neg - cardizem TID, amiodarone gtt, lopressor IVP - Cardiology following HTN - hypotensive 2/2 septic shock Afib - Lovenox for AC - [id number] score of 3 Pulm COPD, uses 3L home oxygen continue 3L of oxygen, patient intubated - CXR daily - CXR: RUL fluid collection (possible abscess), LINDSEY air collection unchanged from 04/01/18 - Per ID: plan for biopsy/drainage of RUL collection when extubated - Ipratroprium neb - Ventimask / Bipap as needed - plan for intubation today as patient with increased work of breathing Ortho Bilateral femoral head avascular necrosis - noted on CT abd/pelvis (04/25) - Ortho following case, Dr. Baez - No orthopedic intervention 2/2 medical status F/E/N - NG tube feeds - Electrolytes trend - Diabetic diet - Sher cath PPX DVT: lovenox GI: pepcid BID Lines, Tubes: sher, PIV, ET tube, NG tube Code Status: full code Dispo: Case discussed with Janett, plan to review patient this AM. If malignancy of RUL consolidation cannot be ruled out, the pt may not benefit from transfer. Visit type - Emergency Visit Emergency Visit: No - New Patient This patient is new to me today: No - Critical Care Critical Care patient: Yes Total Critical Care Time (in minutes): 35 Critical Care Statement: The care of this patient involved high complexity decision making to prevent further life threatening deterioration of the patient 's condition and/or to evaluate & treat vital organ system(s) failure or risk of failure.
--- NOTE | 2018-05-07 11:29 | PN ---
Progress Note, Physician Chief Complaint: Acute Respiratory failure - Current Medication List Current Medications: Active Medications Acetaminophen (Tylenol -) 650 mg PO Q6H PRN PRN Reason: FEVER Last Admin: 05/02/18 22:40 Dose: 650 mg Amino Acids (Prosource No Carb Liquid Pkt) 30 ml PO DAILY [facility] Last Admin: 05/07/18 09:08 Dose: 30 ml Chlorhexidine Gluconate (Hibiclens For Decolonization -) 1 applic TP HS [facility] Last Admin: 05/06/18 22:37 Dose: 1 applic Chlorhexidine Gluconate (Peridex -) 15 ml MM BID [facility] Last Admin: 05/07/18 09:09 Dose: 15 ml Diltiazem HCl (Cardizem -) 30 mg PO TID [facility] Last Admin: 05/07/18 05:22 Dose: 30 mg Enoxaparin Sodium (Lovenox -) 60 mg SQ BID [facility] Last Admin: 05/07/18 09:09 Dose: 60 mg Escitalopram Oxalate (Lexapro -) 20 mg PO DAILY [facility] Last Admin: 05/07/18 09:08 Dose: 20 mg Famotidine/Sodium Chloride (Pepcid 20 Mg Premixed Ivpb -) 20 mg in 50 mls @ 100 mls/hr IVPB BID [facility] Last Admin: 05/07/18 09:08 Dose: 100 mls/hr Vancomycin HCl (Vancomycin (Pre-Docked)) 1,000 mg in 250 mls @ 166.667 mls/hr IVPB BID [facility]; Protocol Last Admin: 05/06/18 21:22 Dose: 166.667 mls/hr Propofol (Diprivan -) 1,000,000 mcg in 100 mls @ 1.86 mls/hr IVPB TITR [facility]; Protocol Last Titration: 05/07/18 03:00 Dose: 10 mcg/kg/min, 3.72 mls/hr Meropenem 1 gm/ Dextrose 100 mls @ 200 mls/hr IVPB Q8H-IV [facility] Last Admin: 05/07/18 09:08 Dose: 200 mls/hr Insulin Aspart (Novolog Vial Sliding Scale -) 1 vial SQ ACHS [facility]; Protocol Last Admin: 05/07/18 07:03 Dose: 4 units Methylprednisolone Sodium Succinate (Solu-Medrol -) 60 mg IVPUSH BID [facility] Last Admin: 05/07/18 09:09 Dose: 60 mg Metoprolol Tartrate (Lopressor Injection -) 5 mg IVPUSH Q4H PRN PRN Reason: TACHYCARDIA Last Admin: 05/05/18 06:24 Dose: 5 mg Potassium Phos/Sodium Phos (Phos-Nak Packet -) 1 packet PO DAILY [facility] Last Admin: 05/07/18 09:09 Dose: 1 packet Sodium Chloride ([place] Nasal [place] -) 2 spray NS BID PRN PRN Reason: NASAL CONGESTION - Objective Vital Signs: Vital Signs Temperature 98.3 F 05/07/18 10:00 Pulse Rate 74 05/07/18 10:00 Respiratory Rate 15 05/07/18 11:23 Blood Pressure 114/74 05/07/18 10:00 O2 Sat by Pulse Oximetry (%) 97 05/07/18 06:00 Labs: CBC, BMP 05/07/18 05:30 05/07/18 05:30 INR, PTT INR 1.14 (0.83-1.09) H 04/27/18 08:31
--- NOTE | 2018-05-07 11:35 | PN ---
Teaching Attending Note Name of Resident: Candida Parnell ATTENDING PHYSICIAN STATEMENT I saw and evaluated the patient. I reviewed the resident's note and discussed the case with the resident. I agree with the resident's findings and plan as documented. SUBJECTIVE: Patient seen and examined in the ICU. Intubated and sedated. AC Mode of vent, 40% FiO2. No pressors. HR much improved. Intake & Output 05/04/18 05/05/18 05/06/18 05/07/18 23:59 23:59 23:59 23:59 Intake Total 5913 118 6517.3 481 Output Total 3399 808 4283 200 Balance 295 -200 1024.3 281 Weight 138 lb 3.677 oz 137 lb 9.095 oz 136 lb 10.986 oz 143 lb 1.28 oz Last Vital Signs Temp Pulse Resp BP Pulse Ox 98.3 F 74 15 114/74 97 05/07/18 10:00 05/07/18 10:00 05/07/18 11:23 05/07/18 10:00 05/07/18 06:00 Active Medications Acetaminophen (Tylenol -) 650 mg PO Q6H PRN PRN Reason: FEVER Last Admin: 05/02/18 22:40 Dose: 650 mg Amino Acids (Prosource No Carb Liquid Pkt) 30 ml PO DAILY [facility] Last Admin: 05/07/18 09:08 Dose: 30 ml Chlorhexidine Gluconate (Hibiclens For Decolonization -) 1 applic TP HS [facility] Last Admin: 05/06/18 22:37 Dose: 1 applic Chlorhexidine Gluconate (Peridex -) 15 ml MM BID [facility] Last Admin: 05/07/18 09:09 Dose: 15 ml Diltiazem HCl (Cardizem -) 30 mg PO TID [facility] Last Admin: 05/07/18 05:22 Dose: 30 mg Enoxaparin Sodium (Lovenox -) 60 mg SQ BID [facility] Last Admin: 05/07/18 09:09 Dose: 60 mg Escitalopram Oxalate (Lexapro -) 20 mg PO DAILY [facility] Last Admin: 05/07/18 09:08 Dose: 20 mg Famotidine/Sodium Chloride (Pepcid 20 Mg Premixed Ivpb -) 20 mg in 50 mls @ 100 mls/hr IVPB BID [facility] Last Admin: 05/07/18 09:08 Dose: 100 mls/hr Vancomycin HCl (Vancomycin (Pre-Docked)) 1,000 mg in 250 mls @ 166.667 mls/hr IVPB BID [facility]; Protocol Last Admin: 05/06/18 21:22 Dose: 166.667 mls/hr Propofol (Diprivan -) 1,000,000 mcg in 100 mls @ 1.86 mls/hr IVPB TITR [facility]; Protocol Last Titration: 05/07/18 03:00 Dose: 10 mcg/kg/min, 3.72 mls/hr Meropenem 1 gm/ Dextrose 100 mls @ 200 mls/hr IVPB Q8H-IV TA Last Admin: 05/07/18 09:08 Dose: 200 mls/hr Insulin Aspart (Novolog Vial Sliding Scale -) 1 vial SQ ACHS [facility]; Protocol Last Admin: 05/07/18 07:03 Dose: 4 units Methylprednisolone Sodium Succinate (Solu-Medrol -) 60 mg IVPUSH BID [facility] Last Admin: 05/07/18 09:09 Dose: 60 mg Metoprolol Tartrate (Lopressor Injection -) 5 mg IVPUSH Q4H PRN PRN Reason: TACHYCARDIA Last Admin: 05/05/18 06:24 Dose: 5 mg Potassium Phos/Sodium Phos (Phos-Nak Packet -) 1 packet PO DAILY [facility] Last Admin: 05/07/18 09:09 Dose: 1 packet Sodium Chloride ([place] Nasal [place] -) 2 spray NS BID PRN PRN Reason: NASAL CONGESTION Gen: Intubated and sedated Heart: irregular Lung: scattered rhonchi Abd: soft, nontender Ext: no edema Laboratory Results - last 24 hr 05/05/18 05/06/18 05/06/18 22:03 05:30 11:38 WBC RBC Hgb Hct MCV MCH MCHC RDW Plt Count MPV Absolute Neuts (auto) Neutrophils % Neutrophils % (Manual) 95.0 H Band Neutrophils % 2.0 Lymphocytes % Lymphocytes % (Manual) 1.0 L Monocytes % Monocytes % (Manual) 1 L Eosinophils % Eosinophils % (Manual) 0.0 Basophils % Basophils % (Manual) 0.0 Myelocytes % (Man) 1 D Promyelocytes % (Man) 0 Blast Cells % (Manual) 0 Nucleated RBC % Metamyelocytes 0 Hypochromia 1+ Platelet Estimate Decreased Polychromasia 1+ Poikilocytosis 0 Anisocytosis 1+ Microcytosis 0 Macrocytosis 1+ Anticoagulation Therapy Puncture Site ABG pH ABG pCO2 at Pt Temp ABG pO2 at Pt Temp ABG HCO3 ABG O2 Sat (Measured) ABG O2 Content ABG Base Excess Pardeep Test O2 Delivery Device Oxygen Flow Rate Vent Mode Vent Rate Mechanical Rate PEEP Pressure Support Vent Sodium Potassium Chloride Carbon Dioxide Anion Gap BUN Creatinine Creat Clearance w eGFR POC Glucometer 127.63986 232.70231 Random Glucose Calcium Phosphorus Magnesium Total Bilirubin AST ALT Alkaline Phosphatase B-Natriuretic Peptide Total Protein Albumin Vancomycin Pre-Dose 05/06/18 05/06/18 05/06/18 16:55 18:30 22:13 WBC RBC Hgb Hct MCV MCH MCHC RDW Plt Count MPV Absolute Neuts (auto) Neutrophils % Neutrophils % (Manual) Band Neutrophils % Lymphocytes % Lymphocytes % (Manual) Monocytes % Monocytes % (Manual) Eosinophils % Eosinophils % (Manual) Basophils % Basophils % (Manual) Myelocytes % (Man) Promyelocytes % (Man) Blast Cells % (Manual) Nucleated RBC % Metamyelocytes Hypochromia Platelet Estimate Polychromasia Poikilocytosis Anisocytosis Microcytosis Macrocytosis Anticoagulation Therapy No Result Required. Puncture Site Left radial ABG pH 7.48 H ABG pCO2 at Pt Temp 61.3 H* ABG pO2 at Pt Temp 90.5 D ABG HCO3 45.6 H* ABG O2 Sat (Measured) 98.0 ABG O2 Content 11.1 L ABG Base Excess 19.5 H* Pardeep Test Positive O2 Delivery Device Vent esprit Oxygen Flow Rate 45% Vent Mode No Result Required. Vent Rate No Result Required. Mechanical Rate No Result Required. PEEP Pressure Support Vent No Result Required. Sodium Potassium Chloride Carbon Dioxide Anion Gap BUN Creatinine Creat Clearance w eGFR POC Glucometer 163.45922 140.27188 Random Glucose Calcium Phosphorus Magnesium Total Bilirubin AST ALT Alkaline Phosphatase B-Natriuretic Peptide Total Protein Albumin Vancomycin Pre-Dose 05/07/18 05/07/18 05/07/18 05:17 05:30 05:30 WBC 7.6 RBC 2.84 L Hgb 8.4 L Hct 26.7 L MCV 94.2 MCH 29.5 MCHC 31.3 L RDW 16.3 H Plt Count 95 L MPV 10.2 Absolute Neuts (auto) 7.3 Neutrophils % 96.0 H Neutrophils % (Manual) 86.7 H Band Neutrophils % 5.7 Lymphocytes % 1.0 L Lymphocytes % (Manual) 5.7 L D Monocytes % 2.8 L Monocytes % (Manual) 0 L D Eosinophils % 0.0 Eosinophils % (Manual) 0.0 Basophils % 0.2 Basophils % (Manual) 0.0 Myelocytes % (Man) 0 D Promyelocytes % (Man) 0 Blast Cells % (Manual) 0 Nucleated RBC % 0 Metamyelocytes 1 D Hypochromia Platelet Estimate Polychromasia Poikilocytosis Anisocytosis Microcytosis Macrocytosis Anticoagulation Therapy Puncture Site ABG pH ABG pCO2 at Pt Temp ABG pO2 at Pt Temp ABG HCO3 ABG O2 Sat (Measured) ABG O2 Content ABG Base Excess Pardeep Test O2 Delivery Device Oxygen Flow Rate Vent Mode Vent Rate Mechanical Rate PEEP Pressure Support Vent Sodium 145 Potassium 3.4 L Chloride 95 L Carbon Dioxide 44 H Anion Gap 5 L BUN 24 H Creatinine 0.4 L Creat Clearance w eGFR > 60 POC Glucometer 218.32646 Random Glucose 195 H Calcium 7.9 L Phosphorus 2.7 Magnesium 2.2 Total Bilirubin 1.2 H AST 40 H ALT 80 H Alkaline Phosphatase 225 H B-Natriuretic Peptide Total Protein 4.6 L Albumin 2.1 L Vancomycin Pre-Dose 05/07/18 05/07/18 05/07/18 05:30 06:50 09:13 WBC RBC Hgb Hct MCV MCH MCHC RDW Plt Count MPV Absolute Neuts (auto) Neutrophils % Neutrophils % (Manual) Band Neutrophils % Lymphocytes % Lymphocytes % (Manual) Monocytes % Monocytes % (Manual) Eosinophils % Eosinophils % (Manual) Basophils % Basophils % (Manual) Myelocytes % (Man) Promyelocytes % (Man) Blast Cells % (Manual) Nucleated RBC % Metamyelocytes Hypochromia Platelet Estimate Polychromasia Poikilocytosis Anisocytosis Microcytosis Macrocytosis Anticoagulation Therapy Puncture Site Left radial ABG pH 7.47 H ABG pCO2 at Pt Temp 52.4 H ABG pO2 at Pt Temp 138.0 H D ABG HCO3 38.0 H ABG O2 Sat (Measured) 97.8 ABG O2 Content 11.6 L ABG Base Excess 13.0 H Pardeep Test Positive O2 Delivery Device Vent Oxygen Flow Rate 45% Vent Mode Vent Rate 14 Mechanical Rate Yes PEEP 5.0 Pressure Support Vent Sodium Potassium Chloride Carbon Dioxide Anion Gap BUN Creatinine Creat Clearance w eGFR POC Glucometer Random Glucose Calcium Phosphorus Magnesium Total Bilirubin AST ALT Alkaline Phosphatase B-Natriuretic Peptide 610.3 H Total Protein Albumin Vancomycin Pre-Dose 23.9 ASSESSMENT AND PLAN: Acute on Chronic Hypoxic and Hypercapneic Respiratory Failure UTI Septic Shock Lactic Acidosis Epistaxis Acute on Chronic Diastolic Heart Failure Severe Mitral Regurgitation Thrombocytopenia CAD COPD Pulmonary HTN Paroxysmal Atrial Fibrillation HTN Hypercholesterolemia Endocarditis ruled out Bacteremia - AC Mode of vent: Decrease RR to 12/min and Increase flow to 80L - ABX per ID - monitor urine output, creatinine - monitor CBC - AC - Medrol - inhaled bronchodilators - DVT/GI prophylaxis - Enteral feeds - ICU monitoring Dr Donovan Critical care time spent in reviewing chart, evaluating patient and formulating plan 35 min
[2018-05-07] MEDS: VANCOMYCIN 1 GRAM (PRE-DOCKED) 1,000 MG/250 ML BAG IVPB SCH ×2 (11:45→22:51)
--- NOTE | 2018-05-07 14:23 | PN ---
Progress Note, Physician History of Present Illness: Sedated and intubated currently PAF->SR on oral cardizem. - Current Medication List Current Medications: Active Medications Acetaminophen (Tylenol -) 650 mg PO Q6H PRN PRN Reason: FEVER Last Admin: 05/02/18 22:40 Dose: 650 mg Amino Acids (Prosource No Carb Liquid Pkt) 30 ml PO DAILY [facility] Last Admin: 05/07/18 09:08 Dose: 30 ml Chlorhexidine Gluconate (Hibiclens For Decolonization -) 1 applic TP HS [facility] Last Admin: 05/06/18 22:37 Dose: 1 applic Chlorhexidine Gluconate (Peridex -) 15 ml MM BID [facility] Last Admin: 05/07/18 09:09 Dose: 15 ml Diltiazem HCl (Cardizem -) 30 mg PO TID [facility] Last Admin: 05/07/18 05:22 Dose: 30 mg Enoxaparin Sodium (Lovenox -) 60 mg SQ BID [facility] Last Admin: 05/07/18 09:09 Dose: 60 mg Escitalopram Oxalate (Lexapro -) 20 mg PO DAILY [facility] Last Admin: 05/07/18 09:08 Dose: 20 mg Famotidine/Sodium Chloride (Pepcid 20 Mg Premixed Ivpb -) 20 mg in 50 mls @ 100 mls/hr IVPB BID [facility] Last Admin: 05/07/18 09:08 Dose: 100 mls/hr Vancomycin HCl (Vancomycin (Pre-Docked)) 1,000 mg in 250 mls @ 166.667 mls/hr IVPB BID [facility]; Protocol Last Admin: 05/06/18 21:22 Dose: 166.667 mls/hr Propofol (Diprivan -) 1,000,000 mcg in 100 mls @ 1.86 mls/hr IVPB TITR [facility]; Protocol Last Titration: 05/07/18 03:00 Dose: 10 mcg/kg/min, 3.72 mls/hr Meropenem 1 gm/ Dextrose 100 mls @ 200 mls/hr IVPB Q8H-IV [facility] Last Admin: 05/07/18 09:08 Dose: 200 mls/hr Insulin Aspart (Novolog Vial Sliding Scale -) 1 vial SQ ACHS [facility]; Protocol Last Admin: 05/07/18 07:03 Dose: 4 units Methylprednisolone Sodium Succinate (Solu-Medrol -) 60 mg IVPUSH BID [facility] Last Admin: 05/07/18 09:09 Dose: 60 mg Metoprolol Tartrate (Lopressor Injection -) 5 mg IVPUSH Q4H PRN PRN Reason: TACHYCARDIA Last Admin: 05/05/18 06:24 Dose: 5 mg Potassium Phos/Sodium Phos (Phos-Nak Packet -) 1 packet PO DAILY [facility] Last Admin: 05/07/18 09:09 Dose: 1 packet Sodium Chloride ([place] Nasal [place] -) 2 spray NS BID PRN PRN Reason: NASAL CONGESTION - Objective Vital Signs: Vital Signs Temperature 98.3 F 05/07/18 10:00 Pulse Rate 76 05/07/18 12:00 Respiratory Rate 14 05/07/18 14:04 Blood Pressure 81/58 L 05/07/18 12:00 O2 Sat by Pulse Oximetry (%) 100 05/07/18 10:00 Constitutional: Yes: No Distress, Calm, Thin Neck: Yes: Supple Cardiovascular: Yes: Regular Rate and Rhythm Respiratory: Yes: Intubated, Mechanically Ventilated, Rhonchi Gastrointestinal: Yes: Normal Bowel Sounds, Soft Edema: No Labs: CBC, BMP 05/07/18 05:30 05/07/18 05:30 INR, PTT INR 1.14 (0.83-1.09) H 04/27/18 08:31 - ....Imaging Chest X-ray: Report Reviewed (RUL mass) Problem List - Problems (1) Hypotension Code(s): I95.9 - HYPOTENSION, UNSPECIFIED Qualifiers: Hypotension type: other hypotension type Qualified Code(s): I95.89 - Other hypotension (2) Acute and chronic respiratory failure with hypercapnia Code(s): J96.22 - ACUTE AND CHRONIC RESPIRATORY FAILURE WITH HYPERCAPNIA (3) Anemia Code(s): D64.9 - ANEMIA, UNSPECIFIED Qualifiers: Anemia type: unspecified type Qualified Code(s): D64.9 - Anemia, unspecified (4) COPD (chronic obstructive pulmonary disease) Code(s): J44.9 - CHRONIC OBSTRUCTIVE PULMONARY DISEASE, UNSPECIFIED Qualifiers: COPD type: unspecified COPD Qualified Code(s): J44.9 - Chronic obstructive pulmonary disease, unspecified (5) Diastolic dysfunction Code(s): I51.9 - HEART DISEASE, UNSPECIFIED (6) Epistaxis, recurrent Code(s): R04.0 - EPISTAXIS (7) Hyperlipidemia Code(s): E78.5 - HYPERLIPIDEMIA, UNSPECIFIED Qualifiers: Hyperlipidemia type: pure hypercholesterolemia Qualified Code(s): E78.00 - Pure hypercholesterolemia, unspecified; E78.0 - Pure hypercholesterolemia (8) Hyperthyroidism Code(s): E05.90 - THYROTOXICOSIS, UNSP WITHOUT THYROTOXIC CRISIS OR STORM (9) Paroxysmal A-fib Code(s): I48.0 - PAROXYSMAL ATRIAL FIBRILLATION (10) Mitral valve anterior leaflet prolapse Code(s): I34.1 - NONRHEUMATIC MITRAL (VALVE) PROLAPSE (11) Moderate to severe mitral regurgitation Code(s): I34.0 - NONRHEUMATIC MITRAL (VALVE) INSUFFICIENCY Assessment/Plan 04/27/2018 Moderate to severe MR with posteriorly directed eccentric jet due to anterior mitral valve prolapse, mild TR and normal LV systolic function. There were no vegetations. Small pericardial effusion may be seen 1. Acute on Chronic Hypoxic and Hypercapneic Respiratory Failure 2. Acute on chronic class II-III NYHA classification LV diastolic failure referable to underlying posterior directed moderate-severe MR due to anterior MV prolapse 3. 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 Bacteremia, sepsis syndrome, history of MRSA bacteremia of unclear source, with splenic infarct, #39 MRSA treatment plan total 42 days-continue vancomycin 5. Advanced chronic obstructive pulmonary disease on home oxygen therapy with Pulmonary HTN 6. Epistaxis, prior history requiring intervention, nasal packing in situ 7. Anemia related to above and in addition thrombocytopenia 8. Paroxysmal atrial fibrillation with [id number] score of 2 now in SR 9. HTN 10. 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 UTI 13. Right apical lung mass? PLAN: 1. Remains on Cardizem 30 tid and Lopressor IV prn for recurrent afib rate- control 2. Resume Diovan as tolerated 3. Off Eliquis on Lovenox 4. Consider diuretics - Furosemide as needed 5. Resume Lipitor 10 mg QHS when feasible 6. Monitor Hgb and transfuse as needed to maintain Hgb equal or > 8.0 7. Bronchodilator, IV steroids with GI protection, antibiotics course as per ID service, enteral feeds 8. Further evaluation for MVP and MR and probable surgical repair will need to be done at some point when he is clinically stable.
[2018-05-07] MEDS: PROPOFOL 1,000,000 MCG/100 ML VIAL IVPB SCH (16:00)
[2018-05-07] MEDS: CHLORHEXIDINE GLUCONATE 4% CLEANSER FOR DECOLONIZATION TP SCH (21:19)
[2018-05-07] MEDS ORDERED: SODIUM CHLORIDE 1,000 ML IV STA (22:06)
[2018-05-08] MEDS ORDERED: PT OWN MED DRAWER 7, Y5N ONE ×2 (00:53→09:27)
[2018-05-08] MEDS: MEROPENEM 1 GM in DEXTROSE 5%-WATER 100 ML IVPB SCH ×3 (01:01→17:06)
[2018-05-08] MEDS: METOPROLOL TARTRATE 5 MG/5 ML VIAL IVPUSH PRN (04:00)
[2018-05-08 05:59] LABS: BASO % 0.2 % (0-2.0); HEMATOCRIT 25.9 % (35.4-49); HEMOGLOBIN 8.3 GM/dL (11.7-16.9); LYMPH % 0.9 % (8-40); MCH 30.4 pg (25.7-33.7); MCHC 32.2 g/dl (32.0-35.9); MEAN CELL VOLUME 94.3 fl (80-96); MONO % 1.9 % (3.8-10.2); RBC 2.75 M/mm3 (4.00-5.60); RDW 16.3 % (11.9-15.9); WHITE BLOOD COUNT 10.9 K/mm3 (4.0-10.0)
[2018-05-08 06:03] LABS: PLATELET COUNT 31 K/MM3 (134-434)
[2018-05-08] MEDS: dilTIAZem HCL 30 MG TABLET (FP) PO SCH ×3 (06:31→22:03)
[2018-05-08] MEDS: INSULIN SLIDING SCALE (NOVOLOG) 1 VIAL SQ SCH ×4 (06:31→23:36)
[2018-05-08 06:42] LABS: ARTERIAL BLD GAS O2 SATURATION 97.9 % (90-98.9); ARTERIAL BLOOD GAS BASE EXCESS 15.5 meq/l (-2-2); ARTERIAL BLOOD GAS PCO2 56.7 mmHg (35-45); ARTERIAL BLOOD GAS pH 7.47 (7.35-7.45)
[2018-05-08 06:50] LABS: ALBUMIN 1.7 g/dl (3.4-5.0); ALK PHOS 183 U/L (45-117); ANION GAP 9 MMOL/L (8-16); BILIRUBIN,TOTAL 1.5 mg/dL (0.2-1); BLOOD UREA NITROGEN 34 mg/dL (7-18); CALCIUM 7.2 mg/dL (8.5-10.1); CHLORIDE 96 mmol/L (98-107); CO2 39 mmol/L (21-32); CREATININE 0.7 mg/dL (0.55-1.3); GLUCOSE,RANDOM 203 mg/dL (74-106); MAGNESIUM 2.1 mg/dL (1.8-2.4); PHOSPHOROUS 2.5 mg/dL (2.5-4.9); POTASSIUM 3.1 mmol/L (3.5-5.1); SGOT/AST 33 U/L (15-37); SGPT/ALT 58 U/L (13-61); SODIUM 143 mmol/L (136-145); TOT PROT 4.3 g/dl (6.4-8.2)
[2018-05-08 06:58] LABS: ALLENS TEST POSITIVE
[2018-05-08] MEDS: ALBUTEROL SO4 2.5/IPRATROPIUM 0.5 INH SOL 3 ML VIAL.NEB. NEB SCH ×3 (07:40→20:53)
[2018-05-08] MEDS ORDERED: ALBUTEROL SO4 0.083% IH SOL 2.5 MG/3 ML VIAL.NEB. NEB SCH (08:00)
--- NOTE | 2018-05-08 08:41 | PN ---
Progress Note (short form) - Note Progress Note: Chief Complaint: Events noted, notes reviewed, remains intubated and sedated, no further paroxysmal atrial fibrillation noted over night remains in sinus rhythm History of Present Illness: Seen and examined in the ICU. Events noted, notes reviewed, remains intubated and sedated, no further paroxysmal atrial fibrillation noted over night remains in sinus rhythm - Current Medication List Current Medications Acetaminophen (Tylenol -) 650 mg PO Q6H PRN PRN Reason: FEVER Last Admin: 05/02/18 22:40 Dose: 650 mg Albuterol/Ipratropium (Duoneb -) 1 amp NEB RTID TA Last Admin: 05/08/18 07:40 Dose: 1 amp Amino Acids (Prosource No Carb Liquid Pkt) 30 ml PO DAILY [facility] Last Admin: 05/07/18 09:08 Dose: 30 ml Chlorhexidine Gluconate (Hibiclens For Decolonization -) 1 applic TP HS [facility] Last Admin: 05/07/18 21:19 Dose: 1 applic Chlorhexidine Gluconate (Peridex -) 15 ml MM BID [facility] Last Admin: 05/07/18 22:52 Dose: 15 ml Diltiazem HCl (Cardizem -) 30 mg PO TID [facility] Last Admin: 05/08/18 06:31 Dose: 30 mg Escitalopram Oxalate (Lexapro -) 20 mg PO DAILY [facility] Last Admin: 05/07/18 09:08 Dose: 20 mg Famotidine/Sodium Chloride (Pepcid 20 Mg Premixed Ivpb -) 20 mg in 50 mls @ 100 mls/hr IVPB BID [facility] Last Admin: 05/07/18 22:50 Dose: 100 mls/hr Vancomycin HCl (Vancomycin (Pre-Docked)) 1,000 mg in 250 mls @ 166.667 mls/hr IVPB BID [facility]; Protocol Last Admin: 05/07/18 22:51 Dose: 166.667 mls/hr Propofol (Diprivan -) 1,000,000 mcg in 100 mls @ 1.86 mls/hr IVPB TITR [facility]; Protocol Last Titration: 05/08/18 04:13 Dose: 10 mcg/kg/min, 3.72 mls/hr Meropenem 1 gm/ Dextrose 100 mls @ 200 mls/hr IVPB Q8H-IV TA Last Admin: 05/08/18 01:01 Dose: 200 mls/hr Potassium Chloride (Potassium Chloride 10 Meq Premix Ivpb -) 10 meq in 100 mls @ 100 mls/hr IVPB Q60M [facility] Stop: 05/08/18 11:44 Insulin Aspart (Novolog Vial Sliding Scale -) 1 vial SQ ACHS [facility]; Protocol Last Admin: 05/08/18 06:31 Dose: 4 units Methylprednisolone Sodium Succinate (Solu-Medrol -) 60 mg IVPUSH BID [facility] Last Admin: 05/07/18 22:52 Dose: 60 mg Metoprolol Tartrate (Lopressor Injection -) 5 mg IVPUSH Q4H PRN PRN Reason: TACHYCARDIA Last Admin: 05/08/18 04:00 Dose: 5 mg Potassium Phos/Sodium Phos (Phos-Nak Packet -) 1 packet PO DAILY [facility] Last Admin: 05/07/18 09:09 Dose: 1 packet Sodium Chloride ([place] Nasal [place] -) 2 spray NS BID PRN PRN Reason: NASAL CONGESTION - Review of Systems Unable to obtain - Objective Vital Signs: Last Vital Signs Temp Pulse Resp BP Pulse Ox 98.1 F 75 15 109/58 L 97 05/08/18 05:00 05/08/18 05:44 05/08/18 06:45 05/08/18 05:00 05/08/18 05:44 Intake & Output 05/05/18 05/06/18 05/07/18 05/08/18 23:59 23:59 23:59 23:59 Intake Total 550 2224.3 2967.1 333 Output Total 750 1200 750 200 Balance -200 1024.3 2217.1 133 Weight 137 lb 9.095 oz 136 lb 10.986 oz 143 lb 1.28 oz 147 lb 0.773 oz Neck: Supple Negative JVD Cardiovascular: S1 S2 Regular Rate Rhythm Respiratory: Diminished breath sounds Bilaterally Scattered Rhonchi Gastrointestinal: Soft Benign Normal Bowel Sounds Ext: Negative Edema Labs: ABG Results ABG pH 7.47 (7.35-7.45) H 05/08/18 06:00 ABG pCO2 at Pt Temp 56.7 mmHg (35-45) H 05/08/18 06:00 ABG pO2 at Pt Temp 106.0 mmHg (80-100) H D 05/08/18 06:00 ABG HCO3 40.9 meq/L (22-26) H* 05/08/18 06:00 ABG O2 Sat (Measured) 97.9 % (90-98.9) 05/08/18 06:00 ABG O2 Content 11.2 % vol (15-22) L 05/08/18 06:00 ABG Base Excess 15.5 meq/l (-2-2) H* 05/08/18 06:00 CBC, BMP 05/08/18 05:30 Assessment/Plan ASSESSMENT: 1. Acute on Chronic Hypoxic Respiratory Failure referable to 2. Probable aspiration pneumonia, worsening chest x-ray 3. Chronic class I-II NYHA classification LV failure related to diastolic LV dysfunction, clinically euvolemic/compensated 4. CAD non-obstructive coronary artery disease angina pectoris 5. Sepsis syndrome, history of MRSA bacteremia of unclear source, with splenic infarct, with repeat abnormal blood cultures/organism pending 6. Paroxysmal atrial fibrillation with [id number] score of 2 on A/C with DOAC's/ Eliquis (A/C withheld), recurrent arrhythmia resolved 7. Advanced chronic obstructive pulmonary disease on home oxygen therapy with Pulmonary HTN 8. Epistaxis, recurrent resolved 9. Anemia/thrombocytopenia 10. HTN, history 11. 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 Continue Cardizem, hemodynamics permitting 2. Continue Lopressor on as needed bases 3. Recommend resumption of A/C with Eliquis, provided hemostasis is achieved unless it is absolutely contraindicated 4. As outlined in prior notes if recurrent arrhythmia may consider antiarrhythmics/Amiodarone 5. Monitor Hg and transfuse as needed to maintain Hg equal or > 8.0 6. Antibiotics course as per ID service/primary team, await final ID on blood cultures Overall poor prognosis Ashley Bojorquez MD
[2018-05-08 08:45] LABS: HEMATOCRIT 24.2 % (35.4-49); HEMOGLOBIN 8.3 GM/dL (11.7-16.9); MCH 31.8 pg (25.7-33.7); MCHC 34.4 g/dl (32.0-35.9); MEAN CELL VOLUME 92.3 fl (80-96); RBC 2.62 M/mm3 (4.00-5.60); RDW 16.5 % (11.9-15.9); WHITE BLOOD COUNT 12.1 K/mm3 (4.0-10.0)
[2018-05-08 08:48] LABS: PLATELET COUNT 29 K/MM3 (134-434)
[2018-05-08] MEDS: KCL 10 MEQ IVPB 10 MEQ/100 ML INFUS.BAG IVPB SCH ×3 (09:01→12:59)
[2018-05-08 09:26] LABS: INR 1.3 (0.83-1.09); PROTHROMBIN TIME (PATIENT) 15.4 SEC (9.7-13.0)
[2018-05-08 09:28] LABS: ACTIVATED PTT 37.1 SECONDS (25.2-36.5)
[2018-05-08] MEDS: FAMOTIDINE 20 MG/50 ML IVPB 20 MG/50 ML MG IVPB SCH ×2 (09:40→22:00)
[2018-05-08] MEDS: NAPH,MB-DB/K PH,MBDB POWDER PACKET PO SCH (09:41)
[2018-05-08] MEDS: ESCITALOPRAM OXALATE 20 MG TABLET (FP) PO SCH (09:41)
[2018-05-08] MEDS: methylPREDNISolone NA SUCC 40 MG/1 ML VIAL IVPUSH SCH ×2 (09:42→22:01)
[2018-05-08] MEDS: AMINO ACIDS/PROTEIN HYDROLYS 30 ML LIQUID.PKT PO SCH (09:42)
[2018-05-08] MEDS: CHLORHEXIDINE GLUCONATE 0.12% 15ML CUP MM SCH ×2 (09:43→22:01)
--- NOTE | 2018-05-08 10:16 | PN ---
Teaching Attending Note Name of Resident: Celestine Carrillo ATTENDING PHYSICIAN STATEMENT I saw and evaluated the patient. I reviewed the resident's note and discussed the case with the resident. I agree with the resident's findings and plan as documented. SUBJECTIVE: Patient seen and examined in the ICU. Intubated and sedated. AC Mode of vent, 40% FiO2. No pressors. Transient hypotension overnight requiring IVF boluses. CXR: increasing infiltrates HR much improved. Intake & Output 05/05/18 05/06/18 05/07/18 05/08/18 23:59 23:59 23:59 23:59 Intake Total 550 2224.3 2967.1 333 Output Total 750 1200 750 200 Balance -200 1024.3 2217.1 133 Weight 137 lb 9.095 oz 136 lb 10.986 oz 143 lb 1.28 oz 147 lb 0.773 oz Last Vital Signs Temp Pulse Resp BP Pulse Ox 99.8 F H 83 16 114/68 97 05/08/18 10:00 05/08/18 10:00 05/08/18 10:00 05/08/18 10:00 05/08/18 05:44 Active Medications Acetaminophen (Tylenol -) 650 mg PO Q6H PRN PRN Reason: FEVER Last Admin: 05/02/18 22:40 Dose: 650 mg Albuterol/Ipratropium (Duoneb -) 1 amp NEB RTID [facility] Last Admin: 05/08/18 07:40 Dose: 1 amp Amino Acids (Prosource No Carb Liquid Pkt) 30 ml PO DAILY [facility] Last Admin: 05/08/18 09:42 Dose: 30 ml Chlorhexidine Gluconate (Hibiclens For Decolonization -) 1 applic TP HS [facility] Last Admin: 05/07/18 21:19 Dose: 1 applic Chlorhexidine Gluconate (Peridex -) 15 ml MM BID [facility] Last Admin: 05/08/18 09:43 Dose: 15 ml Diltiazem HCl (Cardizem -) 30 mg PO TID [facility] Last Admin: 05/08/18 06:31 Dose: 30 mg Escitalopram Oxalate (Lexapro -) 20 mg PO DAILY [facility] Last Admin: 05/08/18 09:41 Dose: 20 mg Famotidine/Sodium Chloride (Pepcid 20 Mg Premixed Ivpb -) 20 mg in 50 mls @ 100 mls/hr IVPB BID [facility] Last Admin: 05/08/18 09:40 Dose: 100 mls/hr Vancomycin HCl (Vancomycin (Pre-Docked)) 1,000 mg in 250 mls @ 166.667 mls/hr IVPB BID [facility]; Protocol Last Admin: 05/07/18 22:51 Dose: 166.667 mls/hr Propofol (Diprivan -) 1,000,000 mcg in 100 mls @ 1.86 mls/hr IVPB TITR [facility]; Protocol Last Titration: 05/08/18 04:13 Dose: 10 mcg/kg/min, 3.72 mls/hr Meropenem 1 gm/ Dextrose 100 mls @ 200 mls/hr IVPB Q8H-IV [facility] Last Admin: 05/08/18 01:01 Dose: 200 mls/hr Potassium Chloride (Potassium Chloride 10 Meq Premix Ivpb -) 10 meq in 100 mls @ 100 mls/hr IVPB Q60M [facility] Stop: 05/08/18 11:44 Last Admin: 05/08/18 09:01 Dose: 100 mls/hr Insulin Aspart (Novolog Vial Sliding Scale -) 1 vial SQ ACHS [facility]; Protocol Last Admin: 05/08/18 06:31 Dose: 4 units Methylprednisolone Sodium Succinate (Solu-Medrol -) 60 mg IVPUSH BID [facility] Last Admin: 05/08/18 09:42 Dose: 60 mg Metoprolol Tartrate (Lopressor Injection -) 5 mg IVPUSH Q4H PRN PRN Reason: TACHYCARDIA Last Admin: 05/08/18 04:00 Dose: 5 mg Potassium Phos/Sodium Phos (Phos-Nak Packet -) 1 packet PO DAILY [facility] Last Admin: 05/08/18 09:41 Dose: 1 packet Sodium Chloride ([place] Nasal [place] -) 2 spray NS BID PRN PRN Reason: NASAL CONGESTION Gen: Intubated and sedated Heart: irregular Lung: scattered rhonchi Abd: soft, nontender Ext: no edema Laboratory Results - last 24 hr 05/07/18 05/07/18 05/07/18 09:13 14:04 17:25 WBC RBC Hgb Hct MCV MCH MCHC RDW Plt Count MPV Absolute Neuts (auto) Neutrophils % Lymphocytes % Monocytes % Eosinophils % Basophils % Nucleated RBC % PT with INR INR PTT (Actin FS) Fibrinogen Anticoagulation Therapy Puncture Site ABG pH ABG pCO2 at Pt Temp ABG pO2 at Pt Temp ABG HCO3 ABG O2 Sat (Measured) ABG O2 Content ABG Base Excess Pardeep Test O2 Delivery Device Oxygen Flow Rate Vent Mode Vent Rate Mechanical Rate PEEP Pressure Support Vent Sodium Potassium Chloride Carbon Dioxide Anion Gap BUN Creatinine Creat Clearance w eGFR POC Glucometer 176.48327 262.31606 Random Glucose Calcium Phosphorus Magnesium Total Bilirubin AST ALT Alkaline Phosphatase Total Protein Albumin Vancomycin Pre-Dose 23.9 Blood Type Antibody Screen 05/07/18 05/08/18 05/08/18 22:43 05:17 05:30 WBC 10.9 H RBC 2.75 L Hgb 8.3 L Hct 25.9 L MCV 94.3 MCH 30.4 MCHC 32.2 RDW 16.3 H Plt Count 31 L* D MPV 11.0 Absolute Neuts (auto) 10.6 H Neutrophils % 97.0 H Lymphocytes % 0.9 L Monocytes % 1.9 L Eosinophils % 0.0 Basophils % 0.2 Nucleated RBC % 1 H PT with INR INR PTT (Actin FS) Fibrinogen Anticoagulation Therapy Puncture Site ABG pH ABG pCO2 at Pt Temp ABG pO2 at Pt Temp ABG HCO3 ABG O2 Sat (Measured) ABG O2 Content ABG Base Excess Pardeep Test O2 Delivery Device Oxygen Flow Rate Vent Mode Vent Rate Mechanical Rate PEEP Pressure Support Vent Sodium Potassium Chloride Carbon Dioxide Anion Gap BUN Creatinine Creat Clearance w eGFR POC Glucometer 139.64743 [phone] Random Glucose Calcium Phosphorus Magnesium Total Bilirubin AST ALT Alkaline Phosphatase Total Protein Albumin Vancomycin Pre-Dose Blood Type Antibody Screen 05/08/18 05/08/18 05/08/18 05:30 06:00 08:20 WBC 12.1 H RBC 2.62 L Hgb 8.3 L Hct 24.2 L MCV 92.3 MCH 31.8 MCHC 34.4 RDW 16.5 H Plt Count 29 L* MPV 11.0 Absolute Neuts (auto) Neutrophils % Lymphocytes % Monocytes % Eosinophils % Basophils % Nucleated RBC % PT with INR INR PTT (Actin FS) Fibrinogen Anticoagulation Therapy No Result Required. Puncture Site Right radial ABG pH 7.47 H ABG pCO2 at Pt Temp 56.7 H ABG pO2 at Pt Temp 106.0 H D ABG HCO3 40.9 H* ABG O2 Sat (Measured) 97.9 ABG O2 Content 11.2 L ABG Base Excess 15.5 H* Pardeep Test Positive O2 Delivery Device Vent Oxygen Flow Rate 45% Vent Mode A/c Vent Rate 12 Mechanical Rate Yes PEEP 5.0 Pressure Support Vent 500 Sodium 143 Potassium 3.1 L Chloride 96 L Carbon Dioxide 39 H Anion Gap 9 BUN 34 H Creatinine 0.7 Creat Clearance w eGFR > 60 POC Glucometer Random Glucose 203 H Calcium 7.2 L Phosphorus 2.5 Magnesium 2.1 Total Bilirubin 1.5 H AST 33 ALT 58 Alkaline Phosphatase 183 H Total Protein 4.3 L Albumin 1.7 L Vancomycin Pre-Dose Blood Type Antibody Screen 05/08/18 05/08/18 05/08/18 08:20 08:50 08:50 WBC RBC Hgb Hct MCV MCH MCHC RDW Plt Count MPV Absolute Neuts (auto) Neutrophils % Lymphocytes % Monocytes % Eosinophils % Basophils % Nucleated RBC % PT with INR 15.40 H INR 1.30 H PTT (Actin FS) 37.1 H Fibrinogen 467.0 D Anticoagulation Therapy Puncture Site ABG pH ABG pCO2 at Pt Temp ABG pO2 at Pt Temp ABG HCO3 ABG O2 Sat (Measured) ABG O2 Content ABG Base Excess Pardeep Test O2 Delivery Device Oxygen Flow Rate Vent Mode Vent Rate Mechanical Rate PEEP Pressure Support Vent Sodium Potassium Chloride Carbon Dioxide Anion Gap BUN Creatinine Creat Clearance w eGFR POC Glucometer Random Glucose Calcium Phosphorus Magnesium Total Bilirubin AST ALT Alkaline Phosphatase Total Protein Albumin Vancomycin Pre-Dose Blood Type B POSITIVE Antibody Screen Negative ASSESSMENT AND PLAN: Acute on Chronic Hypoxic and Hypercapneic Respiratory Failure UTI Septic Shock Lactic Acidosis Epistaxis Acute on Chronic Diastolic Heart Failure Severe Mitral Regurgitation Thrombocytopenia CAD COPD Pulmonary HTN Paroxysmal Atrial Fibrillation HTN Hypercholesterolemia Endocarditis ruled out Bacteremia - AC Mode of vent: wean parameters as tolerated - ABX per ID - Check HIT AB - Platelet transfusion - monitor urine output, creatinine - monitor CBC - Hold AC - Wean Medrol - inhaled bronchodilators - DVT/GI prophylaxis - Enteral feeds - ICU monitoring Dr Donovan Critical care time spent in reviewing chart, evaluating patient and formulating plan 35 min
--- NOTE | 2018-05-08 10:42 | PN ---
Physical Exam: SUBJECTIVE: Patient seen and examined in the ICU. Intubated and sedated. No pressors. Transient hypotension overnight requiring IVF bolus. Platelets dropped from 95 to 31. lovenox held. HIT ab sent and 2U plt transfusion ordered. OBJECTIVE: Vital Signs Period Temp Pulse Resp BP Sys/Morgan Pulse Ox Last 24 Hr 97.8 F-99.8 F 72-140 14-23 81-123/47-73 96-100 GENERAL: The patient is intubated and sedated HEAD: NCAT EYES: sclera anicteric, conjunctiva clear. ENT: MMM NECK: Trachea midline LUNGS: + coarse breath sounds bilaterally, no wheezes, no crackles, no accessory muscle use. HEART: RRR, S1, S2 without murmur, rub or gallop. ABDOMEN: Soft, NTND, normoactive bowel sounds, no guarding, no rebound EXTREMITIES: 2+ pulses, warm, well-perfused, no edema. NEUROLOGICAL: intubated and sedated SKIN: Warm, dry, normal turgor, no rashes or lesions noted Laboratory Results - last 24 hr 05/07/18 05/07/18 05/07/18 09:13 14:04 17:25 WBC RBC Hgb Hct MCV MCH MCHC RDW Plt Count MPV Absolute Neuts (auto) Neutrophils % Lymphocytes % Monocytes % Eosinophils % Basophils % Nucleated RBC % PT with INR INR PTT (Actin FS) Fibrinogen Anticoagulation Therapy Puncture Site ABG pH ABG pCO2 at Pt Temp ABG pO2 at Pt Temp ABG HCO3 ABG O2 Sat (Measured) ABG O2 Content ABG Base Excess Pardeep Test O2 Delivery Device Oxygen Flow Rate Vent Mode Vent Rate Mechanical Rate PEEP Pressure Support Vent Sodium Potassium Chloride Carbon Dioxide Anion Gap BUN Creatinine Creat Clearance w eGFR POC Glucometer 176.63873 262.29441 Random Glucose Calcium Phosphorus Magnesium Total Bilirubin AST ALT Alkaline Phosphatase Total Protein Albumin Vancomycin Pre-Dose 23.9 Blood Type Antibody Screen 05/07/18 05/08/18 05/08/18 22:43 05:17 05:30 WBC 10.9 H RBC 2.75 L Hgb 8.3 L Hct 25.9 L MCV 94.3 MCH 30.4 MCHC 32.2 RDW 16.3 H Plt Count 31 L* D MPV 11.0 Absolute Neuts (auto) 10.6 H Neutrophils % 97.0 H Lymphocytes % 0.9 L Monocytes % 1.9 L Eosinophils % 0.0 Basophils % 0.2 Nucleated RBC % 1 H PT with INR INR PTT (Actin FS) Fibrinogen Anticoagulation Therapy Puncture Site ABG pH ABG pCO2 at Pt Temp ABG pO2 at Pt Temp ABG HCO3 ABG O2 Sat (Measured) ABG O2 Content ABG Base Excess Pardeep Test O2 Delivery Device Oxygen Flow Rate Vent Mode Vent Rate Mechanical Rate PEEP Pressure Support Vent Sodium Potassium Chloride Carbon Dioxide Anion Gap BUN Creatinine Creat Clearance w eGFR POC Glucometer 139.35607 [phone] Random Glucose Calcium Phosphorus Magnesium Total Bilirubin AST ALT Alkaline Phosphatase Total Protein Albumin Vancomycin Pre-Dose Blood Type Antibody Screen 05/08/18 05/08/18 05/08/18 05:30 06:00 08:20 WBC 12.1 H RBC 2.62 L Hgb 8.3 L Hct 24.2 L MCV 92.3 MCH 31.8 MCHC 34.4 RDW 16.5 H Plt Count 29 L* MPV 11.0 Absolute Neuts (auto) Neutrophils % Lymphocytes % Monocytes % Eosinophils % Basophils % Nucleated RBC % PT with INR INR PTT (Actin FS) Fibrinogen Anticoagulation Therapy No Result Required. Puncture Site Right radial ABG pH 7.47 H ABG pCO2 at Pt Temp 56.7 H ABG pO2 at Pt Temp 106.0 H D ABG HCO3 40.9 H* ABG O2 Sat (Measured) 97.9 ABG O2 Content 11.2 L ABG Base Excess 15.5 H* Pardeep Test Positive O2 Delivery Device Vent Oxygen Flow Rate 45% Vent Mode A/c Vent Rate 12 Mechanical Rate Yes PEEP 5.0 Pressure Support Vent 500 Sodium 143 Potassium 3.1 L Chloride 96 L Carbon Dioxide 39 H Anion Gap 9 BUN 34 H Creatinine 0.7 Creat Clearance w eGFR > 60 POC Glucometer Random Glucose 203 H Calcium 7.2 L Phosphorus 2.5 Magnesium 2.1 Total Bilirubin 1.5 H AST 33 ALT 58 Alkaline Phosphatase 183 H Total Protein 4.3 L Albumin 1.7 L Vancomycin Pre-Dose Blood Type Antibody Screen 05/08/18 05/08/18 05/08/18 08:20 08:50 08:50 WBC RBC Hgb Hct MCV MCH MCHC RDW Plt Count MPV Absolute Neuts (auto) Neutrophils % Lymphocytes % Monocytes % Eosinophils % Basophils % Nucleated RBC % PT with INR 15.40 H INR 1.30 H PTT (Actin FS) 37.1 H Fibrinogen 467.0 D Anticoagulation Therapy Puncture Site ABG pH ABG pCO2 at Pt Temp ABG pO2 at Pt Temp ABG HCO3 ABG O2 Sat (Measured) ABG O2 Content ABG Base Excess Pardeep Test O2 Delivery Device Oxygen Flow Rate Vent Mode Vent Rate Mechanical Rate PEEP Pressure Support Vent Sodium Potassium Chloride Carbon Dioxide Anion Gap BUN Creatinine Creat Clearance w eGFR POC Glucometer Random Glucose Calcium Phosphorus Magnesium Total Bilirubin AST ALT Alkaline Phosphatase Total Protein Albumin Vancomycin Pre-Dose Blood Type B POSITIVE Antibody Screen Negative Active Medications Generic Name Dose Route Start Last Admin Trade Name Freq PRN Reason Stop Dose Admin Acetaminophen 650 mg 04/23/18 13:40 05/02/18 22:40 Tylenol - PO 650 mg Q6H PRN Administration FEVER Albuterol/Ipratropium 1 amp 05/08/18 08:00 05/08/18 07:40 Duoneb - NEB 1 amp RTID TA Administration Amino Acids 30 ml 04/28/18 15:00 05/08/18 09:42 Prosource No Carb Liquid Pkt PO 30 ml DAILY [facility] Administration Chlorhexidine Gluconate 1 applic 04/23/18 22:00 05/07/18 21:19 Hibiclens For Decolonization - TP 1 applic HS TA Administration Chlorhexidine Gluconate 15 ml 04/25/18 22:00 05/08/18 09:43 Peridex - MM 15 ml BID TA Administration Diltiazem HCl 30 mg 05/06/18 22:00 05/08/18 06:31 Cardizem - PO 30 mg TID TA Administration Escitalopram Oxalate 20 mg 05/05/18 16:00 05/08/18 09:41 Lexapro - PO 20 mg DAILY TA Administration Famotidine/Sodium Chloride 20 mg in 50 mls @ 100 mls/hr 04/24/18 10:00 09:40 Pepcid 20 Mg Premixed Ivpb - IVPB 100 mls/hr BID TA Administration Vancomycin HCl 1,000 mg in 250 mls @ 166.667 mls/hr 04/28/18 10:00 05/07/18 22:51 Vancomycin (Pre-Docked) IVPB 166.667 mls/hr BID TA Administration Protocol Propofol 1,000,000 mcg in 100 mls @ 1.86 mls/hr 05/06/18 14:00 05/08/18 04:13 Diprivan - IVPB 10 mcg/kg/min TITR TA 3.72 mls/hr Titration Protocol 5 MCG/KG/MIN Meropenem 1 gm/ Dextrose 100 mls @ 200 mls/hr 05/06/18 18:00 05/08/18 10:16 IVPB 200 mls/hr Q8H-IV [facility] Administration Potassium Chloride 10 meq in 100 mls @ 100 mls/hr 05/08/18 08:45 05/08/18 10: 17 Potassium Chloride 10 Meq Premix Ivpb - IVPB 05/08/18 11:44 100 mls/hr Q60M TA Administration Insulin Aspart 1 vial 04/24/18 11:00 05/08/18 06:31 Novolog Vial Sliding Scale - SQ 4 units ACHS [facility] Administration Protocol Methylprednisolone Sodium Succinate 40 mg 05/08/18 10:16 Solu-Medrol - IVPUSH BID TA Metoprolol Tartrate 5 mg 04/27/18 14:35 05/08/18 04:00 Lopressor Injection - IVPUSH 5 mg Q4H PRN Administration TACHYCARDIA Potassium Phos/Sodium Phos 1 packet 05/02/18 10:00 05/08/18 09:41 Phos-Nak Packet - PO 1 packet DAILY [facility] Administration Sodium Chloride 2 spray 04/29/18 09:00 [place] Nasal [place] - NS BID PRN NASAL CONGESTION ASSESSMENT/PLAN: Patient is a 67 yo M with history of COPD on home oxygen (3L), Interstitial lung disease, HTN, HLD, CHF, diastolic LV dysfunction, UT, CAD, GERD, hiatal hernia, recent dx of Afib with RVR, presenting to the ER with a complaint of epistaxis, hypotension and tachycardia. Now admitted to ICU for septic shock. Pt was recently admitted for MRSA bacteremia ID Septic Shock -likely 2/2 urosepsis - ID following case - source of sepsis likely urine as UA: +leuk esterase, + wbc - blood and urine culture neg, sputum culture with gram negative bacilli - CT scan chest/abd/pelvis (04/25) : L upper air filled cavity in L upper chest , R upper fluid structure(possible abscess) - unchanged from 04/01 - Keep MAP> 65 - femoral line removed, picc line removed - on methylprednisone 60mg IVP BID - home dose MRSA Bacteremia with suspicion of endocarditis, last admission - LUBNA completed (04/27) - LVEF 60-65%, moderate mitral valve prolapse, severe mitral regurgitation, mild tricuspid regurg, mild aortic regurg, mild aortic sclerosis, no vegetation - MRSA bacteremia-day #39 MRSA treatment plan total 42 days - antibiotics as per ID: vancomycin started (04/27) - blood cultures sent on 04/06 - gram negative bacilli Heme Acute blood loss, normocytic anemia, likely 2/2 epistaxis, required 2pRBC ( resolved) - Tranfusion goal of Hb > 8 - nasal packing removed (04/27) w/o complications - ENT following (Dr. Clarke) - keep head end elevated Thrombocytopenia, baseline around 130-140 and since 03/02/18 has been decreasing to 80s, likely 2/2 sepsis and antibiotics (resolved). Overnight abrupt drop in platelets from 95 to 31. lovenox held. HIT ab sent and plt transfusion 2U ordered. monior CBC - Heme consulted, following case, thrombocytopenia thought to be 2/2 MRSA bacteremia Epistaxis from the L nares (resolved) - L nasal packing done in ED, ENT consulted ENT recommends nasal packing until Thursday - nasal packing removed (04/27) w/o complications - nasal saline spray bid, observe for bleeding Cardiac Diastolic LV dysfunc, CHF, phx UT, CAD, Afib w/ RVR - Last ECHO (03/31/18) - normal EF, L ventricular function normal, severe MR, moderate TR - Tele monitoring - plan to restart home lipitor - Trop: neg - cardizem TID, amiodarone gtt, lopressor IVP - Cardiology following HTN - hypotensive 2/2 septic shock Afib - hold Lovenox for AC due to abrupt drop in plt. f/u HIT AB - [id number] score of 3 Pulm COPD, uses 3L home oxygen continue 3L of oxygen, patient intubated - CXR daily - CXR: RUL fluid collection (possible abscess), LINDSEY air collection unchanged from 04/01/18 - Per ID: plan for biopsy/drainage of RUL collection when extubated - Ipratroprium neb - Ventimask / Bipap as needed Ortho Bilateral femoral head avascular necrosis - noted on CT abd/pelvis (04/25) - Ortho following case, Dr. Baez - No orthopedic intervention 2/2 medical status F/E/N - NG tube feeds - Electrolytes trend - Diabetic diet - Sher cath PPX DVT: SCDs. hold Lovenox for AC due to abrupt drop in plt. f/u HIT AB GI: pepcid BID Lines, Tubes: sher, PIV, ET tube, NG tube Code Status: full code Dispo: Case discussed with Janett, plan to review patient. If malignancy of RUL consolidation cannot be ruled out, the pt may not benefit from transfer. Visit type - Emergency Visit Emergency Visit: Yes ED Registration Date: 04/23/18 Care time: The patient presented to the Emergency Department on the above date and was hospitalized for further evaluation of their emergent condition. - New Patient This patient is new to me today: Yes Date on this admission: 05/08/18 - Critical Care Critical Care patient: Yes Total Critical Care Time (in minutes): 37 Critical Care Statement: The care of this patient involved high complexity decision making to prevent further life threatening deterioration of the patient 's condition and/or to evaluate & treat vital organ system(s) failure or risk of failure.
[2018-05-08] MEDS: VANCOMYCIN 1 GRAM (PRE-DOCKED) 1,000 MG/250 ML BAG IVPB SCH (10:45)
--- NOTE | 2018-05-08 11:20 | PN ---
Progress Note, Physician History of Present Illness: Intubated .Sedated on ventilator. BC GNR Low grade temp WBC slightly elevated Thrombocytopenic plt 29K - Current Medication List Current Medications: Active Medications Acetaminophen (Tylenol -) 650 mg PO Q6H PRN PRN Reason: FEVER Last Admin: 05/02/18 22:40 Dose: 650 mg Albuterol/Ipratropium (Duoneb -) 1 amp NEB RTID [facility] Last Admin: 05/08/18 07:40 Dose: 1 amp Amino Acids (Prosource No Carb Liquid Pkt) 30 ml PO DAILY [facility] Last Admin: 05/08/18 09:42 Dose: 30 ml Chlorhexidine Gluconate (Hibiclens For Decolonization -) 1 applic TP HS [facility] Last Admin: 05/07/18 21:19 Dose: 1 applic Chlorhexidine Gluconate (Peridex -) 15 ml MM BID [facility] Last Admin: 05/08/18 09:43 Dose: 15 ml Diltiazem HCl (Cardizem -) 30 mg PO TID [facility] Last Admin: 05/08/18 06:31 Dose: 30 mg Escitalopram Oxalate (Lexapro -) 20 mg PO DAILY [facility] Last Admin: 05/08/18 09:41 Dose: 20 mg Famotidine/Sodium Chloride (Pepcid 20 Mg Premixed Ivpb -) 20 mg in 50 mls @ 100 mls/hr IVPB BID [facility] Last Admin: 05/08/18 09:40 Dose: 100 mls/hr Vancomycin HCl (Vancomycin (Pre-Docked)) 1,000 mg in 250 mls @ 166.667 mls/hr IVPB BID [facility]; Protocol Last Admin: 05/07/18 22:51 Dose: 166.667 mls/hr Propofol (Diprivan -) 1,000,000 mcg in 100 mls @ 1.86 mls/hr IVPB TITR [facility]; Protocol Last Titration: 05/08/18 04:13 Dose: 10 mcg/kg/min, 3.72 mls/hr Meropenem 1 gm/ Dextrose 100 mls @ 200 mls/hr IVPB Q8H-IV [facility] Last Admin: 05/08/18 10:16 Dose: 200 mls/hr Potassium Chloride (Potassium Chloride 10 Meq Premix Ivpb -) 10 meq in 100 mls @ 100 mls/hr IVPB Q60M [facility] Stop: 05/08/18 11:44 Last Admin: 05/08/18 10:17 Dose: 100 mls/hr Insulin Aspart (Novolog Vial Sliding Scale -) 1 vial SQ ACHS [facility]; Protocol Last Admin: 05/08/18 06:31 Dose: 4 units Methylprednisolone Sodium Succinate (Solu-Medrol -) 40 mg IVPUSH BID [facility] Metoprolol Tartrate (Lopressor Injection -) 5 mg IVPUSH Q4H PRN PRN Reason: TACHYCARDIA Last Admin: 05/08/18 04:00 Dose: 5 mg Potassium Phos/Sodium Phos (Phos-Nak Packet -) 1 packet PO DAILY [facility] Last Admin: 05/08/18 09:41 Dose: 1 packet Sodium Chloride ([place] Nasal [place] -) 2 spray NS BID PRN PRN Reason: NASAL CONGESTION - Objective Vital Signs: Vital Signs Temperature 99.8 F H 05/08/18 10:00 Pulse Rate 83 05/08/18 10:00 Respiratory Rate 17 05/08/18 11:14 Blood Pressure 114/68 05/08/18 10:00 O2 Sat by Pulse Oximetry (%) 98 05/08/18 10:00 Constitutional: Yes: No Distress Eyes: Yes: Conjunctiva Clear Cardiovascular: Yes: Regular Rate and Rhythm, S1, S2 Respiratory: Yes: Mechanically Ventilated Gastrointestinal: Yes: Normal Bowel Sounds, Soft. No: Tenderness Edema: No Labs: CBC, BMP 05/08/18 08:20 05/08/18 05:30 INR, PTT INR 1.30 (0.83-1.09) H 05/08/18 08:50 Fibrinogen 467.0 mg/dL (238-498) D 05/08/18 08:50 Assessment/Plan Respiratory failure Acute exacerbation COPD Sepsis + BC GNR MRSA bacteremia Continue hemodynamic/ ventilatory support Await final blood c/s Continue vancomycin/ meropenem Prognosis guarded
--- NOTE | 2018-05-08 11:58 | PN ---
Progress Note, Physician - Current Medication List Current Medications: Active Medications Acetaminophen (Tylenol -) 650 mg PO Q6H PRN PRN Reason: FEVER Last Admin: 05/02/18 22:40 Dose: 650 mg Albuterol/Ipratropium (Duoneb -) 1 amp NEB RTID [facility] Last Admin: 05/08/18 07:40 Dose: 1 amp Amino Acids (Prosource No Carb Liquid Pkt) 30 ml PO DAILY [facility] Last Admin: 05/08/18 09:42 Dose: 30 ml Chlorhexidine Gluconate (Hibiclens For Decolonization -) 1 applic TP HS [facility] Last Admin: 05/07/18 21:19 Dose: 1 applic Chlorhexidine Gluconate (Peridex -) 15 ml MM BID [facility] Last Admin: 05/08/18 09:43 Dose: 15 ml Diltiazem HCl (Cardizem -) 30 mg PO TID [facility] Last Admin: 05/08/18 06:31 Dose: 30 mg Escitalopram Oxalate (Lexapro -) 20 mg PO DAILY [facility] Last Admin: 05/08/18 09:41 Dose: 20 mg Famotidine/Sodium Chloride (Pepcid 20 Mg Premixed Ivpb -) 20 mg in 50 mls @ 100 mls/hr IVPB BID [facility] Last Admin: 05/08/18 09:40 Dose: 100 mls/hr Propofol (Diprivan -) 1,000,000 mcg in 100 mls @ 1.86 mls/hr IVPB TITR [facility]; Protocol Last Titration: 05/08/18 04:13 Dose: 10 mcg/kg/min, 3.72 mls/hr Meropenem 1 gm/ Dextrose 100 mls @ 200 mls/hr IVPB Q8H-IV [facility] Last Admin: 05/08/18 10:16 Dose: 200 mls/hr Insulin Aspart (Novolog Vial Sliding Scale -) 1 vial SQ ACHS [facility]; Protocol Last Admin: 05/08/18 06:31 Dose: 4 units Methylprednisolone Sodium Succinate (Solu-Medrol -) 40 mg IVPUSH BID [facility] Metoprolol Tartrate (Lopressor Injection -) 5 mg IVPUSH Q4H PRN PRN Reason: TACHYCARDIA Last Admin: 05/08/18 04:00 Dose: 5 mg Potassium Phos/Sodium Phos (Phos-Nak Packet -) 1 packet PO DAILY [facility] Last Admin: 05/08/18 09:41 Dose: 1 packet Sodium Chloride ([place] Nasal [place] -) 2 spray NS BID PRN PRN Reason: NASAL CONGESTION - Objective Vital Signs: Vital Signs Temperature 99.8 F H 05/08/18 10:00 Pulse Rate 83 05/08/18 10:00 Respiratory Rate 17 05/08/18 11:14 Blood Pressure 114/68 05/08/18 10:00 O2 Sat by Pulse Oximetry (%) 98 05/08/18 10:00 Cardiovascular: Yes: S1, S2 Respiratory: Yes: Mechanically Ventilated Gastrointestinal: Yes: Normal Bowel Sounds, Soft Labs: CBC, BMP 05/08/18 08:20 05/08/18 05:30 INR, PTT INR 1.30 (0.83-1.09) H 05/08/18 08:50 Fibrinogen 467.0 mg/dL (238-498) D 05/08/18 08:50 Problem List - Problems (1) Acute and chronic respiratory failure with hypercapnia Assessment/Plan: Intubated--on bipap pulm on board oxygen bronchodilators retaining Code(s): J96.22 - ACUTE AND CHRONIC RESPIRATORY FAILURE WITH HYPERCAPNIA (2) Anemia Assessment/Plan: Monitor Code(s): D64.9 - ANEMIA, UNSPECIFIED Qualifiers: Anemia type: unspecified type Qualified Code(s): D64.9 - Anemia, unspecified (3) COPD (chronic obstructive pulmonary disease) Assessment/Plan: -Nebs -steroids Code(s): J44.9 - CHRONIC OBSTRUCTIVE PULMONARY DISEASE, UNSPECIFIED Qualifiers: COPD type: unspecified COPD Qualified Code(s): J44.9 - Chronic obstructive pulmonary disease, unspecified (4) MRSA bacteremia Assessment/Plan: Abx per id--Vanco isolation ID consult and follow up noted LUBNA done no vegetation Code(s): R78.81 - BACTEREMIA (5) Nasal hemorrhage Code(s): R04.0 - EPISTAXIS (6) Afib Assessment/Plan: Off Lovenox -had rapid hr last night--responded to meds --Monitor on cardizem drip -Cardio on board Code(s): I48.91 - UNSPECIFIED ATRIAL FIBRILLATION (7) Thrombocytopenia Assessment/Plan: Hem follow up Code(s): D69.6 - THROMBOCYTOPENIA, UNSPECIFIED Assessment/Plan - at bedside discussed pt condition
[2018-05-08 13:35] LABS: ANISOCYTOSIS 1+; MACROCYTOSIS 0; OVALOCYTE 1+; PLATELET ESTIMATE DECREASED
[2018-05-08] MEDS: PROPOFOL 1,000,000 MCG/100 ML VIAL IVPB SCH (14:07)
[2018-05-08] MEDS ORDERED: HEMOQUE TEST 1 EACH EACH ONE (17:03)
[2018-05-08] MEDS ORDERED: BENZOIN/ALOE VERA/STORAX/TOLU 58 ML BOTTLE ONE (17:21)
[2018-05-08 18:12] LABS: BASO % 0.4 % (0-2.0); EOS % 0.2 % (0-4.5); HEMATOCRIT 21.9 % (35.4-49); HEMOGLOBIN 7.5 GM/dL (11.7-16.9); LYMPH % 0.6 % (8-40); MCH 31.3 pg (25.7-33.7); MCHC 34.1 g/dl (32.0-35.9); MEAN CELL VOLUME 91.6 fl (80-96); MEAN PLT VOLUME 7.5 fl (7.5-11.1); MONO % 1.4 % (3.8-10.2); NEUT % 97.4 % (42.8-82.8); PLATELET COUNT 53 K/MM3 (134-434); RBC 2.39 M/mm3 (4.00-5.60); RDW 16.3 % (11.9-15.9); WHITE BLOOD COUNT 11.2 K/mm3 (4.0-10.0)
[2018-05-08 19:23] LABS: PLATELET ESTIMATE DECREASED
[2018-05-08] MEDS: ACETAMINOPHEN 325 MG TABLET (FP) PO PRN (19:45)
[2018-05-08] MEDS ORDERED: ACETAMINOPHEN 325 MG TABLET (FP) PO ONE (20:46)
[2018-05-08] MEDS: CHLORHEXIDINE GLUCONATE 4% CLEANSER FOR DECOLONIZATION TP SCH (22:02)
[2018-05-09] MEDS ORDERED: PT OWN MED DRAWER 7, Y5N ONE ×3 (02:11→16:04)
[2018-05-09] MEDS: MEROPENEM 1 GM in DEXTROSE 5%-WATER 100 ML IVPB SCH ×3 (02:14→17:01)
[2018-05-09] MEDS: dilTIAZem HCL 30 MG TABLET (FP) PO SCH ×3 (06:01→21:22)
[2018-05-09] MEDS: PROPOFOL 1,000,000 MCG/100 ML VIAL IVPB SCH ×3 (06:01→18:00)
[2018-05-09] MEDS: INSULIN SLIDING SCALE (NOVOLOG) 1 VIAL SQ SCH ×4 (06:13→21:27)
[2018-05-09 06:15] LABS: BASO % 0.2 % (0-2.0); EOS % 0.4 % (0-4.5); HEMATOCRIT 28.4 % (35.4-49); HEMOGLOBIN 9.3 GM/dL (11.7-16.9); LYMPH % 1.1 % (8-40); MCH 29.8 pg (25.7-33.7); MCHC 32.8 g/dl (32.0-35.9); MEAN PLT VOLUME 7.9 fl (7.5-11.1); MONO % 1.4 % (3.8-10.2); NEUT % 96.9 % (42.8-82.8); RBC 3.12 M/mm3 (4.00-5.60); RDW 17.1 % (11.9-15.9); WHITE BLOOD COUNT 9.7 K/mm3 (4.0-10.0)
[2018-05-09 06:19] LABS: PLATELET COUNT 18 K/MM3 (134-434)
[2018-05-09 06:33] LABS: ARTERIAL BLOOD GAS PCO2 57.8 mmHg (35-45); ARTERIAL BLOOD GAS PO2 69.6 mmHg (80-100); ARTERIAL BLOOD GAS pH 7.46 (7.35-7.45)
[2018-05-09 06:40] LABS: ALLENS TEST POSITIVE
[2018-05-09] MEDS ORDERED: SODIUM CHLORIDE 500 ML IV STA (06:40)
[2018-05-09 06:50] LABS: ALBUMIN 1.8 g/dl (3.4-5.0); ALK PHOS 151 U/L (45-117); ANION GAP 9 MMOL/L (8-16); BILIRUBIN,TOTAL 1.8 mg/dL (0.2-1); BLOOD UREA NITROGEN 35 mg/dL (7-18); CHLORIDE 95 mmol/L (98-107); CO2 39 mmol/L (21-32); CREATININE 0.9 mg/dL (0.55-1.3); GLUCOSE,RANDOM 208 mg/dL (74-106); MAGNESIUM 2.2 mg/dL (1.8-2.4); PHOSPHOROUS 2.8 mg/dL (2.5-4.9); POTASSIUM 3.6 mmol/L (3.5-5.1); SGOT/AST 23 U/L (15-37); SGPT/ALT 40 U/L (13-61); SODIUM 143 mmol/L (136-145); TOT PROT 4.5 g/dl (6.4-8.2)
--- NOTE | 2018-05-09 07:48 | PN ---
Progress Note (short form) - Note Progress Note: Chief Complaint: Events noted, notes reviewed, remains intubated and sedated, transient bradycardia noted, paroxysmal atrial fibrillation noted over night currently remains in sinus rhythm History of Present Illness: Seen and examined in the ICU. Events noted, notes reviewed, remains intubated and sedated, transient bradycardia noted, paroxysmal atrial fibrillation noted over night currently remains in sinus rhythm Transient hypotension noted Thrombocytopenia requiring platelet transfusion - Current Medication List Current Medications Acetaminophen (Tylenol -) 650 mg PO Q6H PRN PRN Reason: FEVER Last Admin: 05/08/18 19:45 Dose: 650 mg Albuterol/Ipratropium (Duoneb -) 1 amp NEB RTID [facility] Last Admin: 05/08/18 20:53 Dose: 1 amp Amino Acids (Prosource No Carb Liquid Pkt) 30 ml PO DAILY [facility] Last Admin: 05/08/18 09:42 Dose: 30 ml Chlorhexidine Gluconate (Hibiclens For Decolonization -) 1 applic TP HS [facility] Last Admin: 05/08/18 22:02 Dose: 1 applic Chlorhexidine Gluconate (Peridex -) 15 ml MM BID [facility] Last Admin: 05/08/18 22:01 Dose: 15 ml Diltiazem HCl (Cardizem -) 30 mg PO TID [facility] Last Admin: 05/09/18 06:01 Dose: Not Given Escitalopram Oxalate (Lexapro -) 20 mg PO DAILY [facility] Last Admin: 05/08/18 09:41 Dose: 20 mg Famotidine/Sodium Chloride (Pepcid 20 Mg Premixed Ivpb -) 20 mg in 50 mls @ 100 mls/hr IVPB BID [facility] Last Admin: 05/08/18 22:00 Dose: 100 mls/hr Propofol (Diprivan -) 1,000,000 mcg in 100 mls @ 1.86 mls/hr IVPB TITR [facility]; Protocol Last Admin: 05/09/18 06:01 Dose: 10 mcg/kg/min, 3.72 mls/hr Meropenem 1 gm/ Dextrose 100 mls @ 200 mls/hr IVPB Q8H-IV [facility] Last Admin: 05/09/18 02:14 Dose: 200 mls/hr Insulin Aspart (Novolog Vial Sliding Scale -) 1 vial SQ ACHS [facility]; Protocol Last Admin: 05/09/18 06:13 Dose: 4 units Methylprednisolone Sodium Succinate (Solu-Medrol -) 40 mg IVPUSH BID [facility] Last Admin: 05/08/18 22:01 Dose: 40 mg Metoprolol Tartrate (Lopressor Injection -) 5 mg IVPUSH Q4H PRN PRN Reason: TACHYCARDIA Last Admin: 05/08/18 04:00 Dose: 5 mg Potassium Phos/Sodium Phos (Phos-Nak Packet -) 1 packet PO DAILY [facility] Last Admin: 05/08/18 09:41 Dose: 1 packet Sodium Chloride ([place] Nasal [place] -) 2 spray NS BID PRN PRN Reason: NASAL CONGESTION - Review of Systems Unable to obtain - Objective Vital Signs: Last Vital Signs Temp Pulse Resp BP Pulse Ox 98.7 F 61 15 88/57 L 98 05/09/18 05:56 05/09/18 06:15 05/09/18 06:15 05/09/18 06:15 05/09/18 06:00 Intake & Output 05/06/18 05/07/18 05/08/18 05/09/18 23:59 23:59 23:59 23:59 Intake Total 2224.3 2967.1 2031 770 Output Total 1200 750 410 750 Balance 1024.3 2217.1 1621 20 Weight 136 lb 10.986 oz 143 lb 1.28 oz 147 lb 0.773 oz 145 lb 8.081 oz Neck: Supple Negative JVD Cardiovascular: S1 S2 Regular Rate Rhythm Respiratory: Diminished breath sounds Bilaterally Scattered Rhonchi Gastrointestinal: Soft Benign Normal Bowel Sounds Ext: Negative Edema Labs: ABG Results ABG pH 7.46 (7.35-7.45) H 05/09/18 06:00 ABG pCO2 at Pt Temp 57.8 mmHg (35-45) H 05/09/18 06:00 ABG pO2 at Pt Temp 69.6 mmHg (80-100) L D 05/09/18 06:00 ABG HCO3 40.9 meq/L (22-26) H* 05/09/18 06:00 ABG O2 Sat (Measured) 94.0 % (90-98.9) 05/09/18 06:00 ABG O2 Content 13.6 % vol (15-22) L 05/09/18 06:00 ABG Base Excess 15.0 meq/l (-2-2) H 05/09/18 06:00 CBC, BMP 05/09/18 05:30 05/09/18 05:30 Assessment/Plan ASSESSMENT: 1. Acute on Chronic Hypoxic Respiratory Failure referable to 2. Probable aspiration pneumonia 3. Chronic class I-II NYHA classification LV failure related to diastolic LV dysfunction, clinically euvolemic/compensated 4. CAD non-obstructive coronary artery disease angina pectoris 5. Sepsis syndrome, history of MRSA bacteremia of unclear source, with splenic infarct, with repeat abnormal blood cultures/organism pending 6. Paroxysmal atrial fibrillation with [id number] score of 2 was on A/C with DOAC's/Eliquis (A/C withheld), recurrent arrhythmia resolved 7. Advanced chronic obstructive pulmonary disease on home oxygen therapy with Pulmonary HTN 8. Epistaxis, recurrent resolved 9. Anemia/thrombocytopenia dropping platelet count post transfusion 10. HTN, history 11. 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 Continue Cardizem, hemodynamics permitting 2. Continue Lopressor on as needed bases 3. Recommend resumption of A/C with Eliquis, provided hemostasis is achieved unless it is absolutely contraindicated, to be deferred at this point 4. As outlined in prior notes if recurrent arrhythmia may consider antiarrhythmics/Amiodarone 5. Monitor Hg and transfuse as needed to maintain Hg equal or > 8.0 6. Antibiotics course as per ID service/primary team, await final ID on blood cultures As outlined overall poor prognosis Ashley Bojorquez MD
[2018-05-09] MEDS: ALBUTEROL SO4 2.5/IPRATROPIUM 0.5 INH SOL 3 ML VIAL.NEB. NEB SCH ×3 (08:00→20:11)
[2018-05-09] MEDS: ESCITALOPRAM OXALATE 20 MG TABLET (FP) PO SCH (09:02)
[2018-05-09] MEDS: FAMOTIDINE 20 MG/50 ML IVPB 20 MG/50 ML MG IVPB SCH ×2 (09:03→21:21)
[2018-05-09] MEDS: NAPH,MB-DB/K PH,MBDB POWDER PACKET PO SCH (09:03)
[2018-05-09] MEDS: CHLORHEXIDINE GLUCONATE 0.12% 15ML CUP MM SCH ×2 (09:03→21:23)
[2018-05-09] MEDS: methylPREDNISolone NA SUCC 40 MG/1 ML VIAL IVPUSH SCH ×2 (09:04→21:21)
[2018-05-09] MEDS: AMINO ACIDS/PROTEIN HYDROLYS 30 ML LIQUID.PKT PO SCH (09:04)
--- NOTE | 2018-05-09 10:27 | PN ---
Teaching Attending Note Name of Resident: Amy Sanford ATTENDING PHYSICIAN STATEMENT I saw and evaluated the patient. I reviewed the resident's note and discussed the case with the resident. I agree with the resident's findings and plan as documented. SUBJECTIVE: Patient seen and examined in the ICU. Intubated and awake and interactive. AC Mode of vent, 40% FiO2. No pressors. Intermittent periods of marginal BP, but now stable. CXR: some mild improvement Intake & Output 05/06/18 05/07/18 05/08/18 05/09/18 23:59 23:59 23:59 23:59 Intake Total 2224.3 2967.1 2031 770 Output Total 1200 750 410 750 Balance 1024.3 2217.1 1621 20 Weight 136 lb 10.986 oz 143 lb 1.28 oz 147 lb 0.773 oz 145 lb 8.081 oz Last Vital Signs Temp Pulse Resp BP Pulse Ox 98.8 F 76 12 91/51 L 95 05/09/18 08:00 05/09/18 08:00 05/09/18 08:00 05/09/18 08:00 05/09/18 08:00 Active Medications Acetaminophen (Tylenol -) 650 mg PO Q6H PRN PRN Reason: FEVER Last Admin: 05/08/18 19:45 Dose: 650 mg Albuterol/Ipratropium (Duoneb -) 1 amp NEB RTID [facility] Last Admin: 05/09/18 08:00 Dose: 1 amp Amino Acids (Prosource No Carb Liquid Pkt) 30 ml PO DAILY [facility] Last Admin: 05/09/18 09:04 Dose: 30 ml Chlorhexidine Gluconate (Hibiclens For Decolonization -) 1 applic TP HS [facility] Last Admin: 05/08/18 22:02 Dose: 1 applic Chlorhexidine Gluconate (Peridex -) 15 ml MM BID [facility] Last Admin: 05/09/18 09:03 Dose: 15 ml Diltiazem HCl (Cardizem -) 30 mg PO TID [facility] Last Admin: 05/09/18 06:01 Dose: Not Given Escitalopram Oxalate (Lexapro -) 20 mg PO DAILY [facility] Last Admin: 05/09/18 09:02 Dose: 20 mg Fentanyl (Sublimaze Injection -) 50 mcg IVPUSH Q4H PRN PRN Reason: PAIN Stop: 05/10/18 09:39 Famotidine/Sodium Chloride (Pepcid 20 Mg Premixed Ivpb -) 20 mg in 50 mls @ 100 mls/hr IVPB BID [facility] Last Admin: 05/09/18 09:03 Dose: 100 mls/hr Propofol (Diprivan -) 1,000,000 mcg in 100 mls @ 1.86 mls/hr IVPB TITR [facility]; Protocol Last Admin: 05/09/18 06:01 Dose: 10 mcg/kg/min, 3.72 mls/hr Meropenem 1 gm/ Dextrose 100 mls @ 200 mls/hr IVPB Q8H-IV [facility] Last Admin: 05/09/18 09:02 Dose: 200 mls/hr Insulin Aspart (Novolog Vial Sliding Scale -) 1 vial SQ ACHS [facility]; Protocol Last Admin: 05/09/18 06:13 Dose: 4 units Methylprednisolone Sodium Succinate (Solu-Medrol -) 40 mg IVPUSH BID [facility] Last Admin: 05/09/18 09:04 Dose: 40 mg Metoprolol Tartrate (Lopressor Injection -) 5 mg IVPUSH Q4H PRN PRN Reason: TACHYCARDIA Last Admin: 05/08/18 04:00 Dose: 5 mg Potassium Phos/Sodium Phos (Phos-Nak Packet -) 1 packet PO DAILY [facility] Last Admin: 05/09/18 09:03 Dose: 1 packet Sodium Chloride ([place] Nasal [place] -) 2 spray NS BID PRN PRN Reason: NASAL CONGESTION Gen: Intubated and awake and interactive Heart: irregular Lung: scattered rhonchi Abd: soft, nontender Ext: no edema Laboratory Results - last 24 hr 05/08/18 05/08/18 05/08/18 05:30 08:20 12:06 WBC RBC Hgb Hct MCV MCH MCHC RDW Plt Count MPV Absolute Neuts (auto) Neutrophils % Neutrophils % (Manual) 82.0 Band Neutrophils % 7.0 Lymphocytes % Lymphocytes % (Manual) 0.0 L Monocytes % Monocytes % (Manual) 6 D Eosinophils % Eosinophils % (Manual) 0.0 Basophils % Basophils % (Manual) 0.0 Myelocytes % (Man) 3 H D Promyelocytes % (Man) 0 Blast Cells % (Manual) 0 Nucleated RBC % Metamyelocytes 2 D Hypochromia 0 Platelet Estimate Decreased Platelet Comment Polychromasia 0 Poikilocytosis 1+ Anisocytosis 1+ Microcytosis 1+ Macrocytosis 0 Ovalocytes 1+ Puncture Site ABG pH ABG pCO2 at Pt Temp ABG pO2 at Pt Temp ABG HCO3 ABG O2 Sat (Measured) ABG O2 Content ABG Base Excess Pardeep Test Oxygen Flow Rate Vent Mode Vent Rate PEEP Pressure Support Vent Sodium Potassium Chloride Carbon Dioxide Anion Gap BUN Creatinine Creat Clearance w eGFR POC Glucometer [phone] Random Glucose Calcium Phosphorus Magnesium Total Bilirubin AST ALT Alkaline Phosphatase Total Protein Albumin Random Vancomycin Blood Type B POSITIVE Antibody Screen Negative Crossmatch See Detail 05/08/18 05/08/18 05/08/18 17:11 18:05 23:31 WBC 11.2 H RBC 2.39 L Hgb 7.5 L Hct 21.9 L MCV 91.6 MCH 31.3 MCHC 34.1 RDW 16.3 H Plt Count 53 L D MPV 7.5 D Absolute Neuts (auto) 10.9 H Neutrophils % 97.4 H Neutrophils % (Manual) 46.0 D Band Neutrophils % 41.0 Lymphocytes % 0.6 L Lymphocytes % (Manual) 1.0 L D Monocytes % 1.4 L Monocytes % (Manual) 0 L D Eosinophils % 0.2 D Eosinophils % (Manual) 0.0 Basophils % 0.4 Basophils % (Manual) 0.0 Myelocytes % (Man) 2 D Promyelocytes % (Man) Blast Cells % (Manual) Nucleated RBC % 0 Metamyelocytes 10 H D Hypochromia Platelet Estimate Decreased Platelet Comment No clumping noted Polychromasia Poikilocytosis Anisocytosis Microcytosis Macrocytosis Ovalocytes Puncture Site ABG pH ABG pCO2 at Pt Temp ABG pO2 at Pt Temp ABG HCO3 ABG O2 Sat (Measured) ABG O2 Content ABG Base Excess [place]ardeep Test Oxygen Flow Rate Vent Mode Vent Rate PEEP Pressure Support Vent Sodium Potassium Chloride Carbon Dioxide Anion Gap BUN Creatinine Creat Clearance w eGFR POC Glucometer 180.44377 183.67537 Random Glucose Calcium Phosphorus Magnesium Total Bilirubin AST ALT Alkaline Phosphatase Total Protein Albumin Random Vancomycin Blood Type Antibody Screen Crossmatch 05/09/18 05/09/18 05/09/18 05:30 05:30 05:30 WBC 9.7 RBC 3.12 L Hgb 9.3 L Hct 28.4 L D MCV 91.0 MCH 29.8 MCHC 32.8 RDW 17.1 H Plt Count 18 L* D MPV 7.9 Absolute Neuts (auto) 9.4 H Neutrophils % 96.9 H Neutrophils % (Manual) Band Neutrophils % Lymphocytes % 1.1 L D Lymphocytes % (Manual) Monocytes % 1.4 L Monocytes % (Manual) Eosinophils % 0.4 D Eosinophils % (Manual) Basophils % 0.2 Basophils % (Manual) Myelocytes % (Man) Promyelocytes % (Man) Blast Cells % (Manual) Nucleated RBC % 0 Metamyelocytes Hypochromia Platelet Estimate Platelet Comment Polychromasia Poikilocytosis Anisocytosis Microcytosis Macrocytosis Ovalocytes Puncture Site ABG pH ABG pCO2 at Pt Temp ABG pO2 at Pt Temp ABG HCO3 ABG O2 Sat (Measured) ABG O2 Content ABG Base Excess Pardeep Test Oxygen Flow Rate Vent Mode Vent Rate PEEP Pressure Support Vent Sodium 143 Potassium 3.6 Chloride 95 L Carbon Dioxide 39 H Anion Gap 9 BUN 35 H Creatinine 0.9 Creat Clearance w eGFR > 60 POC Glucometer Random Glucose 208 H Calcium 7.0 L Phosphorus 2.8 Magnesium 2.2 Total Bilirubin 1.8 H AST 23 ALT 40 Alkaline Phosphatase 151 H Total Protein 4.5 L Albumin 1.8 L Random Vancomycin 23.0 Blood Type Antibody Screen Crossmatch 05/09/18 05/09/18 05:39 06:00 WBC RBC Hgb Hct MCV MCH MCHC RDW Plt Count MPV Absolute Neuts (auto) Neutrophils % Neutrophils % (Manual) Band Neutrophils % Lymphocytes % Lymphocytes % (Manual) Monocytes % Monocytes % (Manual) Eosinophils % Eosinophils % (Manual) Basophils % Basophils % (Manual) Myelocytes % (Man) Promyelocytes % (Man) Blast Cells % (Manual) Nucleated RBC % Metamyelocytes Hypochromia Platelet Estimate Platelet Comment Polychromasia Poikilocytosis Anisocytosis Microcytosis Macrocytosis Ovalocytes Puncture Site Right radial ABG pH 7.46 H ABG pCO2 at Pt Temp 57.8 H ABG pO2 at Pt Temp 69.6 L D ABG HCO3 40.9 H* ABG O2 Sat (Measured) 94.0 ABG O2 Content 13.6 L ABG Base Excess 15.0 H Pardeep Test Positive Oxygen Flow Rate 45 Vent Mode Vol/ac Vent Rate 12 PEEP 5.0 Pressure Support Vent 500 Sodium Potassium Chloride Carbon Dioxide Anion Gap BUN Creatinine Creat Clearance w eGFR POC Glucometer [phone] Random Glucose Calcium Phosphorus Magnesium Total Bilirubin AST ALT Alkaline Phosphatase Total Protein Albumin Random Vancomycin Blood Type Antibody Screen Crossmatch ASSESSMENT AND PLAN: Acute on Chronic Hypoxic and Hypercapneic Respiratory Failure UTI Septic Shock Lactic Acidosis Epistaxis Acute on Chronic Diastolic Heart Failure Severe Mitral Regurgitation Thrombocytopenia CAD COPD Pulmonary HTN Paroxysmal Atrial Fibrillation HTN Hypercholesterolemia Endocarditis ruled out Bacteremia R/O HIT - AC Mode of vent: wean parameters as tolerated - ABX per ID - Check HIT AB / Heme follow up - Platelet transfusion - monitor urine output, creatinine - monitor CBC - Hold AC - Medrol - inhaled bronchodilators - DVT/GI prophylaxis - Enteral feeds - ICU monitoring Dr Donovan Critical care time spent in reviewing chart, evaluating patient and formulating plan 35 min
[2018-05-09 11:33] LABS: ANISOCYTOSIS 1+; MACROCYTOSIS 0; PLATELET ESTIMATE DECREASED
--- NOTE | 2018-05-09 11:44 | PN ---
Progress Note, Physician - Current Medication List Current Medications: Active Medications Acetaminophen (Tylenol -) 650 mg PO Q6H PRN PRN Reason: FEVER Last Admin: 05/08/18 19:45 Dose: 650 mg Albuterol/Ipratropium (Duoneb -) 1 amp NEB RTID [facility] Last Admin: 05/09/18 08:00 Dose: 1 amp Amino Acids (Prosource No Carb Liquid Pkt) 30 ml PO DAILY [facility] Last Admin: 05/09/18 09:04 Dose: 30 ml Chlorhexidine Gluconate (Hibiclens For Decolonization -) 1 applic TP HS [facility] Last Admin: 05/08/18 22:02 Dose: 1 applic Chlorhexidine Gluconate (Peridex -) 15 ml MM BID [facility] Last Admin: 05/09/18 09:03 Dose: 15 ml Diltiazem HCl (Cardizem -) 30 mg PO TID [facility] Last Admin: 05/09/18 06:01 Dose: Not Given Escitalopram Oxalate (Lexapro -) 20 mg PO DAILY [facility] Last Admin: 05/09/18 09:02 Dose: 20 mg Fentanyl (Sublimaze Injection -) 50 mcg IVPUSH Q4H PRN PRN Reason: PAIN Stop: 05/10/18 09:39 Famotidine/Sodium Chloride (Pepcid 20 Mg Premixed Ivpb -) 20 mg in 50 mls @ 100 mls/hr IVPB BID [facility] Last Admin: 05/09/18 09:03 Dose: 100 mls/hr Propofol (Diprivan -) 1,000,000 mcg in 100 mls @ 1.86 mls/hr IVPB TITR [facility]; Protocol Last Admin: 05/09/18 06:01 Dose: 10 mcg/kg/min, 3.72 mls/hr Meropenem 1 gm/ Dextrose 100 mls @ 200 mls/hr IVPB Q8H-IV [facility] Last Admin: 05/09/18 09:02 Dose: 200 mls/hr Insulin Aspart (Novolog Vial Sliding Scale -) 1 vial SQ ACHS [facility]; Protocol Last Admin: 05/09/18 11:06 Dose: 4 units Methylprednisolone Sodium Succinate (Solu-Medrol -) 40 mg IVPUSH BID [facility] Last Admin: 05/09/18 09:04 Dose: 40 mg Metoprolol Tartrate (Lopressor Injection -) 5 mg IVPUSH Q4H PRN PRN Reason: TACHYCARDIA Last Admin: 05/08/18 04:00 Dose: 5 mg Potassium Phos/Sodium Phos (Phos-Nak Packet -) 1 packet PO DAILY [facility] Last Admin: 05/09/18 09:03 Dose: 1 packet Sodium Chloride ([place] Nasal [place] -) 2 spray NS BID PRN PRN Reason: NASAL CONGESTION - Objective Vital Signs: Vital Signs Temperature 99.0 F 05/09/18 10:00 Pulse Rate 77 05/09/18 10:00 Respiratory Rate 16 05/09/18 10:29 Blood Pressure 114/56 L 05/09/18 10:00 O2 Sat by Pulse Oximetry (%) 95 05/09/18 08:00 Cardiovascular: Yes: S1, S2 Respiratory: Yes: Mechanically Ventilated Gastrointestinal: Yes: Normal Bowel Sounds, Soft Labs: CBC, BMP 05/09/18 05:30 05/09/18 05:30 INR, PTT INR 1.30 (0.83-1.09) H 05/08/18 08:50 Fibrinogen 467.0 mg/dL (238-498) D 05/08/18 08:50 Problem List - Problems (1) Acute and chronic respiratory failure with hypercapnia Assessment/Plan: Intubated- pulm on board oxygen bronchodilators retaining Code(s): J96.22 - ACUTE AND CHRONIC RESPIRATORY FAILURE WITH HYPERCAPNIA (2) Anemia Assessment/Plan: Monitor Code(s): D64.9 - ANEMIA, UNSPECIFIED Qualifiers: Anemia type: unspecified type Qualified Code(s): D64.9 - Anemia, unspecified (3) COPD (chronic obstructive pulmonary disease) Assessment/Plan: -Nebs -steroids Code(s): J44.9 - CHRONIC OBSTRUCTIVE PULMONARY DISEASE, UNSPECIFIED Qualifiers: COPD type: unspecified COPD Qualified Code(s): J44.9 - Chronic obstructive pulmonary disease, unspecified (4) MRSA bacteremia Assessment/Plan: Abx per id--Vanco isolation ID consult and follow up noted LUBNA done no vegetation Microbiology 05/06/18 16:00 Sputum - Endotrachea Suction/Ventilator Gram Stain - Final 05/06/18 16:00 Sputum - Endotrachea Suction/Ventilator Sputum Culture - Preliminary Stenotrophomon.(X.)Maltophilia Lactose Fermenting Neg Bacilli Yeast Like Organism 05/06/18 19:19 Blood - Peripheral Venous Blood Culture - Preliminary NO GROWTH OBTAINED AFTER 48 HOURS, INCUBATION TO CONTINUE FOR 3 DAYS. 05/06/18 17:00 Blood - Peripheral Venous Blood Culture - Preliminary Non Lactose Fermenting Gnb 04/23/18 11:30 Blood - Peripheral Venous Blood Culture - Final Campylobacter Gracilis 04/28/18 12:27 Blood - Peripheral Venous Blood Culture - Final NO GROWTH AFTER 5 DAYS INCUBATION 04/28/18 12:46 Blood - Peripheral Venous Blood Culture - Final NO GROWTH AFTER 5 DAYS INCUBATION 04/23/18 12:52 Blood - Peripheral Venous Blood Culture - Final NO GROWTH AFTER 5 DAYS INCUBATION 04/24/18 18:00 Sputum - Endotrachea Suction/Ventilator Gram Stain - Final 04/24/18 18:00 Sputum - Endotrachea Suction/Ventilator Sputum Culture - Final Enterobacter Aerogenes 04/26/18 10:00 Urine - Urine Bowling Legionella Antigen - Final 04/26/18 10:00 Urine - Urine Bowling Streptococcus pneumoniae Antigen (M - Final 04/23/18 13:00 Urine - Urine Clean Catch Urine Culture - Final NO GROWTH OBTAINED Code(s): R78.81 - BACTEREMIA (5) Nasal hemorrhage Assessment/Plan: ( ENT consult noted nasal packing monitor h/h prbc Code(s): R04.0 - EPISTAXIS (6) Afib Assessment/Plan: -Off Lovenox -had rapid hr last night--responded to meds --Monitor on cardizem drip -Cardio on board Code(s): I48.91 - UNSPECIFIED ATRIAL FIBRILLATION (7) Thrombocytopenia Assessment/Plan: Hem follow up Code(s): D69.6 - THROMBOCYTOPENIA, UNSPECIFIED Assessment/Plan - at bedside discussed pt condition
--- NOTE | 2018-05-09 11:44 | PN ---
Physical Exam: SUBJECTIVE: Patient seen and examined Platelets 53 dropped to 18 this AM. 2 units platelets ordered hypotensive overnight, propofol drip decreased to 5mcg/kg/hr Patient alert, "wants to go home" OBJECTIVE: Vital Signs Period Temp Pulse Resp BP Sys/Morgan Pulse Ox Last 24 Hr 98.5 F-101.4 F 61-97 12-21 88-125/51-63 95-100 GENERAL: The patient is awake, alert, and fully oriented, slightly agitated about wrist restraints HEAD: Normal with no signs of trauma. EYES: extraocular movements intact, sclera anicteric, conjunctiva clear. No ptosis. ENT: moist mucous membranes. NECK: Trachea midline LUNGS: coarse breath sounds bilaterally, no wheezes, no crackles HEART: Regular rate and rhythm, S1, S2 without murmur, rub or gallop. ABDOMEN: Soft, nontender, nondistended, no guarding, no rebound, no masses. EXTREMITIES: 2+ pulses, warm, well-perfused, no edema. NEUROLOGICAL: alert, oriented SKIN: Warm, dry, normal turgor, no rashes or lesions noted Laboratory Results - last 24 hr 05/08/18 05/08/18 05/08/18 05:30 08:20 12:06 WBC RBC Hgb Hct MCV MCH MCHC RDW Plt Count MPV Absolute Neuts (auto) Neutrophils % Neutrophils % (Manual) 82.0 Band Neutrophils % 7.0 Lymphocytes % Lymphocytes % (Manual) 0.0 L Monocytes % Monocytes % (Manual) 6 D Eosinophils % Eosinophils % (Manual) 0.0 Basophils % Basophils % (Manual) 0.0 Myelocytes % (Man) 3 H D Promyelocytes % (Man) 0 Blast Cells % (Manual) 0 Nucleated RBC % Metamyelocytes 2 D Hypochromia 0 Platelet Estimate Decreased Platelet Comment Polychromasia 0 Poikilocytosis 1+ Anisocytosis 1+ Microcytosis 1+ Macrocytosis 0 Ovalocytes 1+ Puncture Site ABG pH ABG pCO2 at Pt Temp ABG pO2 at Pt Temp ABG HCO3 ABG O2 Sat (Measured) ABG O2 Content ABG Base Excess Pardeep Test Oxygen Flow Rate Vent Mode Vent Rate PEEP Pressure Support Vent Sodium Potassium Chloride Carbon Dioxide Anion Gap BUN Creatinine Creat Clearance w eGFR POC Glucometer [phone] Random Glucose Calcium Phosphorus Magnesium Total Bilirubin AST ALT Alkaline Phosphatase Total Protein Albumin Random Vancomycin Blood Type B POSITIVE Antibody Screen Negative Crossmatch See Detail 05/08/18 05/08/18 05/08/18 17:11 18:05 23:31 WBC 11.2 H RBC 2.39 L Hgb 7.5 L Hct 21.9 L MCV 91.6 MCH 31.3 MCHC 34.1 RDW 16.3 H Plt Count 53 L D MPV 7.5 D Absolute Neuts (auto) 10.9 H Neutrophils % 97.4 H Neutrophils % (Manual) 46.0 D Band Neutrophils % 41.0 Lymphocytes % 0.6 L Lymphocytes % (Manual) 1.0 L D Monocytes % 1.4 L Monocytes % (Manual) 0 L D Eosinophils % 0.2 D Eosinophils % (Manual) 0.0 Basophils % 0.4 Basophils % (Manual) 0.0 Myelocytes % (Man) 2 D Promyelocytes % (Man) Blast Cells % (Manual) Nucleated RBC % 0 Metamyelocytes 10 H D Hypochromia Platelet Estimate Decreased Platelet Comment No clumping noted Polychromasia Poikilocytosis Anisocytosis Microcytosis Macrocytosis Ovalocytes Puncture Site ABG pH ABG pCO2 at Pt Temp ABG pO2 at Pt Temp ABG HCO3 ABG O2 Sat (Measured) ABG O2 Content ABG Base Excess [place]ardeep Test Oxygen Flow Rate Vent Mode Vent Rate PEEP Pressure Support Vent Sodium Potassium Chloride Carbon Dioxide Anion Gap BUN Creatinine Creat Clearance w eGFR POC Glucometer [phone] Random Glucose Calcium Phosphorus Magnesium Total Bilirubin AST ALT Alkaline Phosphatase Total Protein Albumin Random Vancomycin Blood Type Antibody Screen Crossmatch 05/09/18 05/09/18 05/09/18 05:30 05:30 05:30 WBC 9.7 RBC 3.12 L Hgb 9.3 L Hct 28.4 L D MCV 91.0 MCH 29.8 MCHC 32.8 RDW 17.1 H Plt Count 18 L* D MPV 7.9 Absolute Neuts (auto) 9.4 H Neutrophils % 96.9 H Neutrophils % (Manual) Band Neutrophils % Lymphocytes % 1.1 L D Lymphocytes % (Manual) Monocytes % 1.4 L Monocytes % (Manual) Eosinophils % 0.4 D Eosinophils % (Manual) Basophils % 0.2 Basophils % (Manual) Myelocytes % (Man) Promyelocytes % (Man) Blast Cells % (Manual) Nucleated RBC % 0 Metamyelocytes Hypochromia Platelet Estimate Platelet Comment Polychromasia Poikilocytosis Anisocytosis Microcytosis Macrocytosis Ovalocytes Puncture Site ABG pH ABG pCO2 at Pt Temp ABG pO2 at Pt Temp ABG HCO3 ABG O2 Sat (Measured) ABG O2 Content ABG Base Excess Pardeep Test Oxygen Flow Rate Vent Mode Vent Rate PEEP Pressure Support Vent Sodium 143 Potassium 3.6 Chloride 95 L Carbon Dioxide 39 H Anion Gap 9 BUN 35 H Creatinine 0.9 Creat Clearance w eGFR > 60 POC Glucometer Random Glucose 208 H Calcium 7.0 L Phosphorus 2.8 Magnesium 2.2 Total Bilirubin 1.8 H AST 23 ALT 40 Alkaline Phosphatase 151 H Total Protein 4.5 L Albumin 1.8 L Random Vancomycin 23.0 Blood Type Antibody Screen Crossmatch 05/09/18 05/09/18 05:39 06:00 WBC RBC Hgb Hct MCV MCH MCHC RDW Plt Count MPV Absolute Neuts (auto) Neutrophils % Neutrophils % (Manual) Band Neutrophils % Lymphocytes % Lymphocytes % (Manual) Monocytes % Monocytes % (Manual) Eosinophils % Eosinophils % (Manual) Basophils % Basophils % (Manual) Myelocytes % (Man) Promyelocytes % (Man) Blast Cells % (Manual) Nucleated RBC % Metamyelocytes Hypochromia Platelet Estimate Platelet Comment Polychromasia Poikilocytosis Anisocytosis Microcytosis Macrocytosis Ovalocytes Puncture Site Right radial ABG pH 7.46 H ABG pCO2 at Pt Temp 57.8 H ABG pO2 at Pt Temp 69.6 L D ABG HCO3 40.9 H* ABG O2 Sat (Measured) 94.0 ABG O2 Content 13.6 L ABG Base Excess 15.0 H Pardeep Test Positive Oxygen Flow Rate 45 Vent Mode Vol/ac Vent Rate 12 PEEP 5.0 Pressure Support Vent 500 Sodium Potassium Chloride Carbon Dioxide Anion Gap BUN Creatinine Creat Clearance w eGFR POC Glucometer [phone] Random Glucose Calcium Phosphorus Magnesium Total Bilirubin AST ALT Alkaline Phosphatase Total Protein Albumin Random Vancomycin Blood Type Antibody Screen Crossmatch Active Medications Generic Name Dose Route Start Last Admin Trade Name Freq PRN Reason Stop Dose Admin Acetaminophen 650 mg 04/23/18 13:40 05/08/18 19:45 Tylenol - PO 650 mg Q6H PRN Administration FEVER Albuterol/Ipratropium 1 amp 05/08/18 08:00 05/09/18 08:00 Duoneb - NEB 1 amp RTID TA Administration Amino Acids 30 ml 04/28/18 15:00 05/09/18 09:04 Prosource No Carb Liquid Pkt PO 30 ml DAILY TA Administration Chlorhexidine Gluconate 1 applic 04/23/18 22:00 05/08/18 22:02 Hibiclens For Decolonization - TP 1 applic HS TA Administration Chlorhexidine Gluconate 15 ml 04/25/18 22:00 05/09/18 09:03 Peridex - MM 15 ml BID TA Administration Diltiazem HCl 30 mg 05/06/18 22:00 05/09/18 06:01 Cardizem - PO Not Given TID TA Escitalopram Oxalate 20 mg 05/05/18 16:00 05/09/18 09:02 Lexapro - PO 20 mg DAILY TA Administration Fentanyl 50 mcg 05/09/18 10:11 Sublimaze Injection - IVPUSH 05/10/18 09:39 Q4H PRN PAIN Famotidine/Sodium Chloride 20 mg in 50 mls @ 100 mls/hr 04/24/18 10:00 09:03 Pepcid 20 Mg Premixed Ivpb - IVPB 100 mls/hr BID TA Administration Propofol 1,000,000 mcg in 100 mls @ 1.86 mls/hr 05/06/18 14:00 05/09/18 06:01 Diprivan - IVPB 10 mcg/kg/min TITR TA 3.72 mls/hr Administration Protocol 5 MCG/KG/MIN Meropenem 1 gm/ Dextrose 100 mls @ 200 mls/hr 05/06/18 18:00 05/09/18 09:02 IVPB 200 mls/hr Q8H-IV TA Administration Insulin Aspart 1 vial 04/24/18 11:00 05/09/18 11:06 Novolog Vial Sliding Scale - SQ 4 units ACHS TA Administration Protocol Methylprednisolone Sodium Succinate 40 mg 05/08/18 22:00 05/09/18 09:04 Solu-Medrol - IVPUSH 40 mg BID TA Administration Metoprolol Tartrate 5 mg 04/27/18 14:35 05/08/18 04:00 Lopressor Injection - IVPUSH 5 mg Q4H PRN Administration TACHYCARDIA Potassium Phos/Sodium Phos 1 packet 05/02/18 10:00 05/09/18 09:03 Phos-Nak Packet - PO 1 packet DAILY TA Administration Sodium Chloride 2 spray 04/29/18 09:00 [place] Nasal [place] - NS BID PRN NASAL CONGESTION ASSESSMENT/PLAN: Patient is a 67 yo M with history of COPD on home oxygen (3L), Interstitial lung disease, HTN, HLD, CHF, diastolic LV dysfunction, NM, CAD, GERD, hiatal hernia, recent dx of Afib with RVR, presenting to the ER with a complaint of epistaxis, hypotension and tachycardia. Now admitted to ICU for septic shock. Pt was recently admitted for MRSA bacteremia ID Septic Shock -likely 2/2 urosepsis - ID following case - source of sepsis likely urine as UA: +leuk esterase, + wbc - blood and urine culture neg, sputum culture with gram negative bacilli - CT scan chest/abd/pelvis (04/25) : L upper air filled cavity in L upper chest , R upper fluid structure(possible abscess) - unchanged from 04/01 - Keep MAP> 65 - femoral line removed, picc line removed - on methylprednisone 60mg IVP BID - home dose MRSA Bacteremia with suspicion of endocarditis, last admission - LUBNA completed (04/27) - LVEF 60-65%, moderate mitral valve prolapse, severe mitral regurgitation, mild tricuspid regurg, mild aortic regurg, mild aortic sclerosis, no vegetation - MRSA bacteremia-day #40 MRSA treatment plan total 42 days - antibiotics as per ID: vancomycin started (04/27) - blood cultures sent on 04/06 - gram negative bacilli Heme Acute blood loss, normocytic anemia, likely 2/2 epistaxis, required 2pRBC ( resolved) - Tranfusion goal of Hb > 8 - nasal packing removed (04/27) w/o complications - ENT following (Dr. Clarke) - keep head end elevated Thrombocytopenia, baseline around 130-140 and since 03/02/18 has been decreasing to 80s, likely 2/2 sepsis and antibiotics. - Acute drop in plts this AM from 53 to 18. 2 U plts ordered - HIT Ab pending - will discuss with heme - Heme consulted, following case, thrombocytopenia thought to be 2/2 MRSA bacteremia Epistaxis from the L nares (resolved) - L nasal packing done in ED, ENT consulted ENT recommends nasal packing until Thursday - nasal packing removed (04/27) w/o complications - nasal saline spray bid, observe for bleeding Cardiac Diastolic LV dysfunc, CHF, phx NM, CAD, Afib w/ RVR - Last ECHO (03/31/18) - normal EF, L ventricular function normal, severe MR, moderate TR - Tele monitoring - plan to restart home lipitor - Trop: neg - cardizem TID, lopressor IVP - Cardiology following HTN - hypotensive 2/2 septic shock Afib - hold Lovenox for AC due to abrupt drop in plt. f/u HIT AB - [id number] score of 3 Pulm COPD, uses 3L home oxygen continue 3L of oxygen, patient intubated - CXR daily - CXR: RUL fluid collection (possible abscess), LINDSEY air collection unchanged from 04/01/18 - Per ID: plan for biopsy/drainage of RUL collection when extubated - Ipratroprium neb - Intubated Ortho Bilateral femoral head avascular necrosis - noted on CT abd/pelvis (04/25) - Ortho following case, Dr. Baez - No orthopedic intervention 2/2 medical status F/E/N - NG tube feeds - Electrolytes trend - Diabetic diet - Sher cath PPX DVT: SCDs. hold Lovenox for AC due to abrupt drop in plt. f/u HIT AB GI: pepcid BID Lines, Tubes: sher, PIV, ET tube, NG tube Code Status: full code Dispo: Pt not a candidate for transfer to [place]. Will continue ICU monitoring and discuss goals of care with family Visit type - Emergency Visit Emergency Visit: No - New Patient This patient is new to me today: No - Critical Care Critical Care patient: Yes Total Critical Care Time (in minutes): 35 Critical Care Statement: The care of this patient involved high complexity decision making to prevent further life threatening deterioration of the patient 's condition and/or to evaluate & treat vital organ system(s) failure or risk of failure.
--- NOTE | 2018-05-09 13:49 | PN ---
Progress Note, Physician History of Present Illness: Intubated .Sedated on ventilator. BC GNR Afebrile WBC WNL Thrombocytopenic plt 18K - Current Medication List Current Medications: Active Medications Acetaminophen (Tylenol -) 650 mg PO Q6H PRN PRN Reason: FEVER Last Admin: 05/08/18 19:45 Dose: 650 mg Albuterol/Ipratropium (Duoneb -) 1 amp NEB RTID [facility] Last Admin: 05/09/18 08:00 Dose: 1 amp Amino Acids (Prosource No Carb Liquid Pkt) 30 ml PO DAILY [facility] Last Admin: 05/09/18 09:04 Dose: 30 ml Chlorhexidine Gluconate (Hibiclens For Decolonization -) 1 applic TP HS [facility] Last Admin: 05/08/18 22:02 Dose: 1 applic Chlorhexidine Gluconate (Peridex -) 15 ml MM BID [facility] Last Admin: 05/09/18 09:03 Dose: 15 ml Diltiazem HCl (Cardizem -) 30 mg PO TID [facility] Last Admin: 05/09/18 13:23 Dose: 30 mg Escitalopram Oxalate (Lexapro -) 20 mg PO DAILY [facility] Last Admin: 05/09/18 09:02 Dose: 20 mg Fentanyl (Sublimaze Injection -) 50 mcg IVPUSH Q4H PRN PRN Reason: PAIN Stop: 05/10/18 09:39 Famotidine/Sodium Chloride (Pepcid 20 Mg Premixed Ivpb -) 20 mg in 50 mls @ 100 mls/hr IVPB BID [facility] Last Admin: 05/09/18 09:03 Dose: 100 mls/hr Propofol (Diprivan -) 1,000,000 mcg in 100 mls @ 1.86 mls/hr IVPB TITR [facility]; Protocol Last Admin: 05/09/18 06:01 Dose: 10 mcg/kg/min, 3.72 mls/hr Meropenem 1 gm/ Dextrose 100 mls @ 200 mls/hr IVPB Q8H-IV [facility] Last Admin: 05/09/18 09:02 Dose: 200 mls/hr Insulin Aspart (Novolog Vial Sliding Scale -) 1 vial SQ ACHS [facility]; Protocol Last Admin: 05/09/18 11:06 Dose: 4 units Methylprednisolone Sodium Succinate (Solu-Medrol -) 40 mg IVPUSH BID [facility] Last Admin: 12/09/18 09:04 Dose: 40 mg Metoprolol Tartrate (Lopressor Injection -) 5 mg IVPUSH Q4H PRN PRN Reason: TACHYCARDIA Last Admin: 05/08/18 04:00 Dose: 5 mg Potassium Phos/Sodium Phos (Phos-Nak Packet -) 1 packet PO DAILY [facility] Last Admin: 05/09/18 09:03 Dose: 1 packet Sodium Chloride ([place] Nasal [place] -) 2 spray NS BID PRN PRN Reason: NASAL CONGESTION - Objective Vital Signs: Vital Signs Temperature 98.8 F 05/09/18 12:00 Pulse Rate 68 05/09/18 12:00 Respiratory Rate 14 05/09/18 12:37 Blood Pressure 99/54 L 05/09/18 12:00 O2 Sat by Pulse Oximetry (%) 95 05/09/18 08:00 Constitutional: Yes: No Distress Eyes: Yes: Conjunctiva Clear Cardiovascular: Yes: Regular Rate and Rhythm, S1, S2 Respiratory: Yes: Mechanically Ventilated Gastrointestinal: Yes: Normal Bowel Sounds, Soft. No: Tenderness Labs: CBC, BMP 05/09/18 05:30 05/09/18 05:30 INR, PTT INR 1.30 (0.83-1.09) H 05/08/18 08:50 Fibrinogen 467.0 mg/dL (238-498) D 05/08/18 08:50 Assessment/Plan Respiratory failure Acute exacerbation COPD Sepsis + BC GNR MRSA bacteremia Continue hemodynamic/ ventilatory support Await final blood c/s Continue meropenem Vancomycin on hold Repeat random level am Prognosis guarded
[2018-05-09 16:44] LABS: HEMATOCRIT 21.9 % (35.4-49); HEMOGLOBIN 7.7 GM/dL (11.7-16.9); MCH 31.1 pg (25.7-33.7); MCHC 35.1 g/dl (32.0-35.9); MEAN CELL VOLUME 88.8 fl (80-96); MEAN PLT VOLUME 8.1 fl (7.5-11.1); PLATELET COUNT 50 K/MM3 (134-434); RBC 2.47 M/mm3 (4.00-5.60); RDW 16.6 % (11.9-15.9); WHITE BLOOD COUNT 8.7 K/mm3 (4.0-10.0)
[2018-05-09] MEDS: CHLORHEXIDINE GLUCONATE 4% CLEANSER FOR DECOLONIZATION TP SCH (21:23)
[2018-05-09 23:23] LABS: HEMATOCRIT 21.5 % (35.4-49); HEMOGLOBIN 7.6 GM/dL (11.7-16.9); MCH 31.1 pg (25.7-33.7); MCHC 35.1 g/dl (32.0-35.9); MEAN CELL VOLUME 88.7 fl (80-96); MEAN PLT VOLUME 8.3 fl (7.5-11.1); PLATELET COUNT 44 K/MM3 (134-434); RBC 2.43 M/mm3 (4.00-5.60); RDW 16.6 % (11.9-15.9)
[2018-05-10] MEDS: MEROPENEM 1 GM in DEXTROSE 5%-WATER 100 ML IVPB SCH ×3 (03:11→17:04)
[2018-05-10 05:50] LABS: HEMATOCRIT 22.4 % (35.4-49); HEMOGLOBIN 7.7 GM/dL (11.7-16.9); MCH 30.6 pg (25.7-33.7); MCHC 34.1 g/dl (32.0-35.9); MEAN CELL VOLUME 89.7 fl (80-96); MEAN PLT VOLUME 8.6 fl (7.5-11.1); PLATELET COUNT 44 K/MM3 (134-434); RDW 16.9 % (11.9-15.9); WHITE BLOOD COUNT 8.2 K/mm3 (4.0-10.0)
[2018-05-10] MEDS: dilTIAZem HCL 30 MG TABLET (FP) PO SCH ×3 (06:12→21:32)
[2018-05-10] MEDS: INSULIN SLIDING SCALE (NOVOLOG) 1 VIAL SQ SCH ×4 (06:33→21:32)
[2018-05-10 06:48] LABS: ALBUMIN 1.8 g/dl (3.4-5.0); ALK PHOS 133 U/L (45-117); ANION GAP 6 MMOL/L (8-16); BILIRUBIN,TOTAL 1.1 mg/dL (0.2-1); BLOOD UREA NITROGEN 35 mg/dL (7-18); CHLORIDE 95 mmol/L (98-107); CO2 41 mmol/L (21-32); CREATININE 0.7 mg/dL (0.55-1.3); GLUCOSE,RANDOM 166 mg/dL (74-106); MAGNESIUM 2.2 mg/dL (1.8-2.4); PHOSPHOROUS 2.4 mg/dL (2.5-4.9); SGOT/AST 22 U/L (15-37); SGPT/ALT 33 U/L (13-61); SODIUM 142 mmol/L (136-145); TOT PROT 4.5 g/dl (6.4-8.2)
[2018-05-10 06:58] LABS: ARTERIAL BLD GAS O2 SATURATION 97.6 % (90-98.9); ARTERIAL BLOOD GAS PCO2 57.3 mmHg (35-45); ARTERIAL BLOOD GAS PO2 97.7 mmHg (80-100); ARTERIAL BLOOD GAS pH 7.48 (7.35-7.45)
[2018-05-10 07:06] LABS: ALLENS TEST POSITIVE
[2018-05-10] MEDS: ALBUTEROL SO4 2.5/IPRATROPIUM 0.5 INH SOL 3 ML VIAL.NEB. NEB SCH ×3 (07:20→20:58)
[2018-05-10 07:28] LABS: POTASSIUM 2.9 mmol/L (3.5-5.1)
[2018-05-10] MEDS ORDERED: PT OWN MED DRAWER 7, Y5N ONE ×3 (08:59→21:22)
[2018-05-10] MEDS: ESCITALOPRAM OXALATE 20 MG TABLET (FP) PO SCH (09:02)
[2018-05-10] MEDS: FAMOTIDINE 20 MG/50 ML IVPB 20 MG/50 ML MG IVPB SCH ×2 (09:02→21:32)
[2018-05-10] MEDS: POTASSIUM CHLORIDE ORAL LIQUID 20 MEQ/15 ML NGT SCH ×2 (09:02→21:32)
[2018-05-10] MEDS: NAPH,MB-DB/K PH,MBDB POWDER PACKET PO SCH (09:02)
[2018-05-10] MEDS: CHLORHEXIDINE GLUCONATE 0.12% 15ML CUP MM SCH ×2 (09:02→21:32)
[2018-05-10] MEDS: methylPREDNISolone NA SUCC 40 MG/1 ML VIAL IVPUSH SCH ×2 (09:03→21:32)
[2018-05-10] MEDS: AMINO ACIDS/PROTEIN HYDROLYS 30 ML LIQUID.PKT PO SCH (09:03)
[2018-05-10 09:24] LABS: PLATELET ESTIMATE MOD DECREASED
--- NOTE | 2018-05-10 11:30 | PN ---
Progress Note, Physician History of Present Illness: Remains intubated off sedation currently PAF->SR on oral cardizem. - Current Medication List Current Medications: Active Medications Acetaminophen (Tylenol -) 650 mg PO Q6H PRN PRN Reason: FEVER Last Admin: 05/08/18 19:45 Dose: 650 mg Albuterol/Ipratropium (Duoneb -) 1 amp NEB RTID [facility] Last Admin: 05/10/18 07:20 Dose: 1 amp Amino Acids (Prosource No Carb Liquid Pkt) 30 ml PO DAILY [facility] Last Admin: 05/10/18 09:03 Dose: 30 ml Chlorhexidine Gluconate (Hibiclens For Decolonization -) 1 applic TP HS [facility] Last Admin: 05/09/18 21:23 Dose: 1 applic Chlorhexidine Gluconate (Peridex -) 15 ml MM BID [facility] Last Admin: 05/10/18 09:02 Dose: 15 ml Diltiazem HCl (Cardizem -) 30 mg PO TID [facility] Last Admin: 05/10/18 06:12 Dose: 30 mg Escitalopram Oxalate (Lexapro -) 20 mg PO DAILY [facility] Last Admin: 05/10/18 09:02 Dose: 20 mg Famotidine/Sodium Chloride (Pepcid 20 Mg Premixed Ivpb -) 20 mg in 50 mls @ 100 mls/hr IVPB BID [facility] Last Admin: 05/10/18 09:02 Dose: 100 mls/hr Propofol (Diprivan -) 1,000,000 mcg in 100 mls @ 1.86 mls/hr IVPB TITR [facility]; Protocol Last Titration: 05/09/18 22:34 Dose: 20 mcg/kg/min, 7.44 mls/hr Meropenem 1 gm/ Dextrose 100 mls @ 200 mls/hr IVPB Q8H-IV [facility] Last Admin: 05/10/18 09:02 Dose: 200 mls/hr Insulin Aspart (Novolog Vial Sliding Scale -) 1 vial SQ ACHS [facility]; Protocol Last Admin: 05/10/18 11:25 Dose: 4 units Methylprednisolone Sodium Succinate (Solu-Medrol -) 40 mg IVPUSH BID [facility] Last Admin: 05/10/18 09:03 Dose: 40 mg Metoprolol Tartrate (Lopressor Injection -) 5 mg IVPUSH Q4H PRN PRN Reason: TACHYCARDIA Last Admin: 12/08/18 04:00 Dose: 5 mg Potassium Chloride (Potassium Chloride Oral Liquid) 40 meq NGT BID TA Last Admin: 05/10/18 09:02 Dose: 40 meq Potassium Phos/Sodium Phos (Phos-Nak Packet -) 1 packet PO DAILY TA Last Admin: 05/10/18 09:02 Dose: 1 packet Sodium Chloride ([place] Nasal [place] -) 2 spray NS BID PRN PRN Reason: NASAL CONGESTION - Objective Vital Signs: Vital Signs Temperature 97.5 F L 05/10/18 10:08 Pulse Rate 71 05/10/18 10:08 Respiratory Rate 13 05/10/18 10:08 Blood Pressure 111/54 L 05/10/18 10:08 O2 Sat by Pulse Oximetry (%) 100 05/10/18 10:00 Constitutional: Yes: No Distress, Calm Neck: Yes: Supple Respiratory: Yes: Diminished, Intubated, Mechanically Ventilated, Rhonchi Gastrointestinal: Yes: Soft, Hypoactive Bowel Sounds Edema: No Labs: CBC, BMP 05/10/18 05:15 05/10/18 05:15 INR, PTT INR 1.30 (0.83-1.09) H 05/08/18 08:50 Fibrinogen 467.0 mg/dL (238-498) D 05/08/18 08:50 - ....Imaging EKG: Report Reviewed (Tele: PAF->SR) Problem List - Problems (1) Hypotension Code(s): I95.9 - HYPOTENSION, UNSPECIFIED Qualifiers: Hypotension type: other hypotension type Qualified Code(s): I95.89 - Other hypotension (2) Acute and chronic respiratory failure with hypercapnia Code(s): J96.22 - ACUTE AND CHRONIC RESPIRATORY FAILURE WITH HYPERCAPNIA (3) Anemia Code(s): D64.9 - ANEMIA, UNSPECIFIED Qualifiers: Anemia type: unspecified type Qualified Code(s): D64.9 - Anemia, unspecified (4) COPD (chronic obstructive pulmonary disease) Code(s): J44.9 - CHRONIC OBSTRUCTIVE PULMONARY DISEASE, UNSPECIFIED Qualifiers: COPD type: unspecified COPD Qualified Code(s): J44.9 - Chronic obstructive pulmonary disease, unspecified (5) Diastolic dysfunction Code(s): I51.9 - HEART DISEASE, UNSPECIFIED (6) Epistaxis, recurrent Code(s): R04.0 - EPISTAXIS (7) Hyperlipidemia Code(s): E78.5 - HYPERLIPIDEMIA, UNSPECIFIED Qualifiers: Hyperlipidemia type: pure hypercholesterolemia Qualified Code(s): E78.00 - Pure hypercholesterolemia, unspecified; E78.0 - Pure hypercholesterolemia (8) Hyperthyroidism Code(s): E05.90 - THYROTOXICOSIS, UNSP WITHOUT THYROTOXIC CRISIS OR STORM (9) Paroxysmal A-fib Code(s): I48.0 - PAROXYSMAL ATRIAL FIBRILLATION (10) Mitral valve anterior leaflet prolapse Code(s): I34.1 - NONRHEUMATIC MITRAL (VALVE) PROLAPSE (11) Moderate to severe mitral regurgitation Code(s): I34.0 - NONRHEUMATIC MITRAL (VALVE) INSUFFICIENCY Assessment/Plan 04/27/2018 Moderate to severe MR with posteriorly directed eccentric jet due to anterior mitral valve prolapse, mild TR and normal LV systolic function. There were no vegetations. Small pericardial effusion may be seen 1. Acute on Chronic Hypoxic Respiratory Failure referable to 2. Probable aspiration pneumonia 3. Chronic class I-II NYHA classification LV diastolic failure related to underlying posterior directed moderate-severe MR due to anterior MV prolapse, pulm HTN, clinically euvolemic/compensated 4. CAD non-obstructive coronary artery disease angina pectoris 5. Sepsis syndrome, history of MRSA bacteremia of unclear source, with splenic infarct, with repeat abnormal blood cultures/organism pending 6. Paroxysmal atrial fibrillation with [id number] score of 2 was on A/C with DOAC's/Eliquis (A/C withheld), recurrent arrhythmia resolved 7. Advanced chronic obstructive pulmonary disease on home oxygen therapy with Pulmonary HTN 8. Epistaxis, recurrent resolved 9. Anemia/thrombocytopenia post transfusion 10. HTN, history 11. Hypercholesterolemia 12. History of Atypical Mycobacterium, Right apical lung mass? PLAN: 1. Continue Cardizem 30 tid with IV Lopressor as needed for rate-control 2. A/C with Lovenox held due to Hgb and Plt drop, r/o HIT, ideally resume NOAC provided hemostasis is achieved 3. As outlined in prior notes if recurrent arrhythmia may consider antiarrhythmics/Amiodarone 4. Monitor Hg and transfuse as needed to maintain Hg equal or > 8.0 5. Meopepenem abx course as per ID service/primary team 6. Further evaluation for MVP and MR and probable surgical repair will need to be done at some point when he is clinically stable 7. Enteral feeds, BD, IV steroid wean, spontaneous breathing trials as tolerated but will likely need tracheostomy 8. Attempting transfer to [facility] pulm service, DVT/GI prophylaxis
--- NOTE | 2018-05-10 11:51 | PN ---
Physical Exam: SUBJECTIVE: Patient seen and examined ICU team was contacted by [facility], as family contacted their prior team about transfer to ICU. The patient is still not yet a candidate for lung transplant without evaluation of the patient's RUL nodule. And still would not be eligible for lung transplant transfer. The transfer would be an ICU to ICU transfer with the possibility of lung nodule biopsy. Sedation was turned off and patient was in full mentation and capacity this AM. Patient still intubated but able to communicate through writing on notepad. Trach tube was discussed with patient and he agrees, but would like to discuss with family. > 35min was spent by this news writer, Dr. Sanford and Jennifer (palliative care nurse) discussing with and daughter (via phone) about trach tube placement and possible [facility] transfer. The patient and family will discuss this AM. OBJECTIVE: Vital Signs Period Temp Pulse Resp BP Sys/Morgan Pulse Ox Last 24 Hr 97.5 F-99.0 F 64-85 12-16 99-116/54-64 95-100 GENERAL: The patient is awake, alert, and fully oriented HEAD: Normal with no signs of trauma. EYES: extraocular movements intact, sclera anicteric, conjunctiva clear. No ptosis. ENT: moist mucous membranes. NECK: Trachea midline LUNGS: coarse breath sounds bilaterally, no wheezes, no crackles HEART: Regular rate and rhythm, S1, S2 without murmur, rub or gallop. ABDOMEN: Soft, nontender, nondistended, no guarding, no rebound, no masses. EXTREMITIES: 2+ pulses, warm, well-perfused, no edema. NEUROLOGICAL: alert, oriented SKIN: Warm, dry, normal turgor, no rashes or lesions noted Laboratory Results - last 24 hr 05/09/18 05/09/18 05/09/18 05:30 10:30 10:59 WBC RBC Hgb Hct MCV MCH MCHC RDW Plt Count MPV Absolute Neuts (auto) Total Counted Neutrophils % Neutrophils % (Manual) 60.0 D Band Neutrophils % 34.7 Lymphocytes % Lymphocytes % (Manual) 0.0 L Monocytes % Monocytes % (Manual) 0 L Eosinophils % Eosinophils % (Manual) 0.0 Basophils % Basophils % (Manual) 1.1 D Myelocytes % (Man) 0 D Promyelocytes % (Man) 0 Blast Cells % (Manual) 0 Nucleated RBC % Metamyelocytes 4 H D Hypochromia 0 Platelet Estimate Decreased Polychromasia 0 Poikilocytosis 0 Anisocytosis 1+ Microcytosis 1+ Macrocytosis 0 Puncture Site ABG pH ABG pCO2 at Pt Temp ABG pO2 at Pt Temp ABG HCO3 ABG O2 Sat (Measured) ABG O2 Content ABG Base Excess Pardeep Test O2 Delivery Device Oxygen Flow Rate Vent Rate PEEP Pressure Support Vent Sodium Potassium Chloride Carbon Dioxide Anion Gap BUN Creatinine Creat Clearance w eGFR POC Glucometer [phone] Random Glucose Calcium Phosphorus Magnesium Total Bilirubin AST ALT Alkaline Phosphatase Total Protein Albumin Stool Occult Blood Positive Random Vancomycin 05/09/18 05/09/18 05/09/18 16:21 16:23 21:26 WBC 8.7 RBC 2.47 L Hgb 7.7 L Hct 21.9 L D MCV 88.8 MCH 31.1 MCHC 35.1 RDW 16.6 H Plt Count 50 L D MPV 8.1 Absolute Neuts (auto) Total Counted Neutrophils % Neutrophils % (Manual) Band Neutrophils % Lymphocytes % Lymphocytes % (Manual) Monocytes % Monocytes % (Manual) Eosinophils % Eosinophils % (Manual) Basophils % Basophils % (Manual) Myelocytes % (Man) Promyelocytes % (Man) Blast Cells % (Manual) Nucleated RBC % Metamyelocytes Hypochromia Platelet Estimate Polychromasia Poikilocytosis Anisocytosis Microcytosis Macrocytosis Puncture Site ABG pH ABG pCO2 at Pt Temp ABG pO2 at Pt Temp ABG HCO3 ABG O2 Sat (Measured) ABG O2 Content ABG Base Excess Pardeep Test O2 Delivery Device Oxygen Flow Rate Vent Rate PEEP Pressure Support Vent Sodium Potassium Chloride Carbon Dioxide Anion Gap BUN Creatinine Creat Clearance w eGFR POC Glucometer [phone] Random Glucose Calcium Phosphorus Magnesium Total Bilirubin AST ALT Alkaline Phosphatase Total Protein Albumin Stool Occult Blood Random Vancomycin 05/09/18 05/10/18 05/10/18 23:15 05:15 05:15 WBC 8.0 8.2 RBC 2.43 L 2.50 L Hgb 7.6 L 7.7 L Hct 21.5 L 22.4 L MCV 88.7 89.7 MCH 31.1 30.6 MCHC 35.1 34.1 RDW 16.6 H 16.9 H Plt Count 44 L 44 L MPV 8.3 8.6 Absolute Neuts (auto) 7.9 Total Counted Neutrophils % Finisher Cold Rolling Neutrophils % (Manual) Band Neutrophils % Lymphocytes % Finisher Cold Rolling Lymphocytes % (Manual) Monocytes % Finisher Cold Rolling Monocytes % (Manual) Eosinophils % Finisher Cold Rolling Eosinophils % (Manual) Basophils % Finisher Cold Rolling Basophils % (Manual) Myelocytes % (Man) Promyelocytes % (Man) Blast Cells % (Manual) Nucleated RBC % 0 Metamyelocytes Hypochromia Platelet Estimate Polychromasia Poikilocytosis Anisocytosis Microcytosis Macrocytosis Puncture Site ABG pH ABG pCO2 at Pt Temp ABG pO2 at Pt Temp ABG HCO3 ABG O2 Sat (Measured) ABG O2 Content ABG Base Excess Pardeep Test O2 Delivery Device Oxygen Flow Rate Vent Rate PEEP Pressure Support Vent Sodium Potassium Chloride Carbon Dioxide Anion Gap BUN Creatinine Creat Clearance w eGFR POC Glucometer Random Glucose Calcium Phosphorus Magnesium Total Bilirubin AST ALT Alkaline Phosphatase Total Protein Albumin Stool Occult Blood Random Vancomycin 15.2 L 05/10/18 05/10/18 05/10/18 05:15 05:15 06:00 WBC RBC Hgb Hct MCV MCH MCHC RDW Plt Count MPV Absolute Neuts (auto) Total Counted 100 Neutrophils % Neutrophils % (Manual) 84.0 H D Band Neutrophils % 12.0 Lymphocytes % Lymphocytes % (Manual) 3.0 L D Monocytes % Monocytes % (Manual) 1 L D Eosinophils % Eosinophils % (Manual) Basophils % Basophils % (Manual) Myelocytes % (Man) Promyelocytes % (Man) Blast Cells % (Manual) Nucleated RBC % Metamyelocytes Hypochromia Platelet Estimate Mod decreased Polychromasia Poikilocytosis Anisocytosis Microcytosis Macrocytosis Puncture Site Left radial ABG pH 7.48 H ABG pCO2 at Pt Temp 57.3 H ABG pO2 at Pt Temp 97.7 D ABG HCO3 41.7 H* ABG O2 Sat (Measured) 97.6 ABG O2 Content 12.3 L ABG Base Excess 16.0 H* Pardeep Test Positive O2 Delivery Device Vent Oxygen Flow Rate 45 Vent Rate 12 PEEP 5.0 Pressure Support Vent 500 Sodium 142 Potassium 2.9 L* Chloride 95 L Carbon Dioxide 41 H Anion Gap 6 L BUN 35 H Creatinine 0.7 Creat Clearance w eGFR > 60 POC Glucometer Random Glucose 166 H Calcium 7.0 L Phosphorus 2.4 L Magnesium 2.2 Total Bilirubin 1.1 H AST 22 ALT 33 Alkaline Phosphatase 133 H Total Protein 4.5 L Albumin 1.8 L Stool Occult Blood Random Vancomycin 05/10/18 06:32 WBC RBC Hgb Hct MCV MCH MCHC RDW Plt Count MPV Absolute Neuts (auto) Total Counted Neutrophils % Neutrophils % (Manual) Band Neutrophils % Lymphocytes % Lymphocytes % (Manual) Monocytes % Monocytes % (Manual) Eosinophils % Eosinophils % (Manual) Basophils % Basophils % (Manual) Myelocytes % (Man) Promyelocytes % (Man) Blast Cells % (Manual) Nucleated RBC % Metamyelocytes Hypochromia Platelet Estimate Polychromasia Poikilocytosis Anisocytosis Microcytosis Macrocytosis Puncture Site ABG pH ABG pCO2 at Pt Temp ABG pO2 at Pt Temp ABG HCO3 ABG O2 Sat (Measured) ABG O2 Content ABG Base Excess Pardeep Test O2 Delivery Device Oxygen Flow Rate Vent Rate PEEP Pressure Support Vent Sodium Potassium Chloride Carbon Dioxide Anion Gap BUN Creatinine Creat Clearance w eGFR POC Glucometer [phone] Random Glucose Calcium Phosphorus Magnesium Total Bilirubin AST ALT Alkaline Phosphatase Total Protein Albumin Stool Occult Blood Random Vancomycin Active Medications Generic Name Dose Route Start Last Admin Trade Name Freq PRN Reason Stop Dose Admin Acetaminophen 650 mg 04/23/18 13:40 05/08/18 19:45 Tylenol - PO 650 mg Q6H PRN Administration FEVER Albuterol/Ipratropium 1 amp 05/08/18 08:00 05/10/18 07:20 Duoneb - NEB 1 amp RTID TA Administration Amino Acids 30 ml 04/28/18 15:00 05/10/18 09:03 Prosource No Carb Liquid Pkt PO 30 ml DAILY TA Administration Chlorhexidine Gluconate 1 applic 04/23/18 22:00 05/09/18 21:23 Hibiclens For Decolonization - TP 1 applic HS TA Administration Chlorhexidine Gluconate 15 ml 04/25/18 22:00 05/10/18 09:02 Peridex - MM 15 ml BID TA Administration Diltiazem HCl 30 mg 05/06/18 22:00 05/10/18 06:12 Cardizem - PO 30 mg TID TA Administration Escitalopram Oxalate 20 mg 05/05/18 16:00 05/10/18 09:02 Lexapro - PO 20 mg DAILY TA Administration Famotidine/Sodium Chloride 20 mg in 50 mls @ 100 mls/hr 04/24/18 10:00 09:02 Pepcid 20 Mg Premixed Ivpb - IVPB 100 mls/hr BID TA Administration Propofol 1,000,000 mcg in 100 mls @ 1.86 mls/hr 05/06/18 14:00 05/09/18 22:34 Diprivan - IVPB 20 mcg/kg/min TITR TA 7.44 mls/hr Titration Protocol 5 MCG/KG/MIN Meropenem 1 gm/ Dextrose 100 mls @ 200 mls/hr 05/06/18 18:00 05/10/18 09:02 IVPB 200 mls/hr Q8H-IV TA Administration Insulin Aspart 1 vial 04/24/18 11:00 05/10/18 06:33 Novolog Vial Sliding Scale - SQ 2 units ACHS TA Administration Protocol Methylprednisolone Sodium Succinate 40 mg 05/08/18 22:00 05/10/18 09:03 Solu-Medrol - IVPUSH 40 mg BID TA Administration Metoprolol Tartrate 5 mg 04/27/18 14:35 05/08/18 04:00 Lopressor Injection - IVPUSH 5 mg Q4H PRN Administration TACHYCARDIA Potassium Chloride 40 meq 05/10/18 10:00 05/10/18 09:02 Potassium Chloride Oral Liquid NGT 40 meq BID TA Administration Potassium Phos/Sodium Phos 1 packet 05/02/18 10:00 05/10/18 09:02 Phos-Nak Packet - PO 1 packet DAILY TA Administration Sodium Chloride 2 spray 04/29/18 09:00 [place] Nasal [place] - NS BID PRN NASAL CONGESTION ASSESSMENT/PLAN: Patient is a 67 yo M with history of COPD on home oxygen (3L), Interstitial lung disease, HTN, HLD, CHF, diastolic LV dysfunction, GA, CAD, GERD, hiatal hernia, recent dx of Afib with RVR, presenting to the ER with a complaint of epistaxis, hypotension and tachycardia. Now admitted to ICU for septic shock. Pt was recently admitted for MRSA bacteremia ID Septic Shock -likely 2/2 urosepsis - ID following case - source of sepsis likely urine as UA: +leuk esterase, + wbc - blood and urine culture neg, sputum culture with gram negative bacilli - CT scan chest/abd/pelvis (04/25) : L upper air filled cavity in L upper chest , R upper fluid structure(possible abscess) - unchanged from 04/01 - Keep MAP> 65 - femoral line removed, picc line removed - on methylprednisone 40mg IVP BID, will continue to taper MRSA Bacteremia with suspicion of endocarditis, last admission - LUBNA completed (04/27) - LVEF 60-65%, moderate mitral valve prolapse, severe mitral regurgitation, mild tricuspid regurg, mild aortic regurg, mild aortic sclerosis, no vegetation - MRSA bacteremia-day #41 MRSA treatment plan total 42 days - antibiotics as per ID: vancomycin held 2/2 trough elevated, meropenem, will restart vancomycin this AM - blood cultures sent on 05/06 - Roseomonas - repeat blood cultures sent 05/10 - pending GI Loose stools - rectal tube placed with loose stools and low K - likely GI loss - pending C.diff Heme Acute blood loss, normocytic anemia, likely 2/2 epistaxis, required 2pRBC ( resolved) - Tranfusion goal of Hb > 8 - nasal packing removed (04/27) w/o complications - ENT following (Dr. Clarke) - keep head end elevated Thrombocytopenia, baseline around 130-140 and since 03/02/18 has been decreasing to 80s, likely 2/2 sepsis and antibiotics. - Plts stable at 44 this AM, will give 1U plts prior to central line placement - HIT Ab pending - will discuss with heme - Heme consulted, following case, thrombocytopenia thought to be 2/2 MRSA bacteremia Epistaxis from the L nares (resolved) - L nasal packing done in ED, ENT consulted ENT recommends nasal packing until Thursday - nasal packing removed (04/27) w/o complications - nasal saline spray bid, observe for bleeding Cardiac Diastolic LV dysfunc, CHF, phx GA, CAD, Afib w/ RVR - Last ECHO (03/31/18) - normal EF, L ventricular function normal, severe MR, moderate TR - Tele monitoring - plan to restart home lipitor - Trop: neg - cardizem TID, lopressor IVP - Cardiology following HTN - hypotensive 2/2 septic shock Afib - hold Lovenox for AC due to abrupt drop in plt. f/u HIT AB - will restart AC tonight if platelets remain stable - [id number] score of 3 Pulm COPD, uses 3L home oxygen continue 3L of oxygen, patient intubated - CXR daily - CXR: RUL fluid collection (possible abscess), LINDSEY air collection unchanged from 04/01/18 - Per ID: plan for biopsy/drainage of RUL collection when extubated - Ipratroprium neb - Intubated Ortho Bilateral femoral head avascular necrosis - noted on CT abd/pelvis (04/25) - Ortho following case, Dr. Baez - No orthopedic intervention 2/2 medical status F/E/N - NG tube feeds - Electrolytes trend - Diabetic diet - Sher cath PPX DVT: SCDs. AC held for thrombocytopenia GI: pepcid BID Lines, Tubes: sher, PIV, ET tube, NG tube Code Status: full code Dispo: Pt may transfer to [facility] this PM. Will discuss with family. Visit type - Emergency Visit Emergency Visit: No - New Patient This patient is new to me today: No - Critical Care Critical Care patient: Yes Total Critical Care Time (in minutes): 35 Critical Care Statement: The care of this patient involved high complexity decision making to prevent further life threatening deterioration of the patient 's condition and/or to evaluate & treat vital organ system(s) failure or risk of failure.
--- NOTE | 2018-05-10 12:04 | PN ---
Teaching Attending Note Name of Resident: Candida Parnell ATTENDING PHYSICIAN STATEMENT I saw and evaluated the patient. I reviewed the resident's note and discussed the case with the resident. I agree with the resident's findings and plan as documented. SUBJECTIVE: Pt seen and examined in the ICU. Remains intubated, awake off sedation. OBJECTIVE: Vital Signs Period Temp Pulse Resp BP Sys/Morgan Pulse Ox Last 24 Hr 97.5 F-99.0 F 64-89 12-24 101-116/54-64 95-100 Intake & Output 05/07/18 05/08/18 05/09/18 05/10/18 23:59 23:59 23:59 23:59 Intake Total 2967.1 2031 2090 556 Output Total 876 262 0018 300 Balance 2217.1 1621 715 256 Weight 64.9 kg 66.7 kg 66 kg 66.905 kg Gen: intubated, sedated Heart: RRR Lung: decreased breath sounds at the bases Abd: soft, nontender Ext: no edema CBC, BMP 05/10/18 05:15 05/10/18 05:15 Active Medications Acetaminophen (Tylenol -) 650 mg PO Q6H PRN PRN Reason: FEVER Last Admin: 05/08/18 19:45 Dose: 650 mg Albuterol/Ipratropium (Duoneb -) 1 amp NEB RTID [facility] Last Admin: 05/10/18 07:20 Dose: 1 amp Amino Acids (Prosource No Carb Liquid Pkt) 30 ml PO DAILY [facility] Last Admin: 05/10/18 09:03 Dose: 30 ml Chlorhexidine Gluconate (Hibiclens For Decolonization -) 1 applic TP HS [facility] Last Admin: 05/09/18 21:23 Dose: 1 applic Chlorhexidine Gluconate (Peridex -) 15 ml MM BID [facility] Last Admin: 05/10/18 09:02 Dose: 15 ml Diltiazem HCl (Cardizem -) 30 mg PO TID [facility] Last Admin: 05/10/18 06:12 Dose: 30 mg Escitalopram Oxalate (Lexapro -) 20 mg PO DAILY [facility] Last Admin: 05/10/18 09:02 Dose: 20 mg Famotidine/Sodium Chloride (Pepcid 20 Mg Premixed Ivpb -) 20 mg in 50 mls @ 100 mls/hr IVPB BID [facility] Last Admin: 12/10/18 09:02 Dose: 100 mls/hr Propofol (Diprivan -) 1,000,000 mcg in 100 mls @ 1.86 mls/hr IVPB TITR [facility]; Protocol Last Titration: 05/09/18 22:34 Dose: 20 mcg/kg/min, 7.44 mls/hr Meropenem 1 gm/ Dextrose 100 mls @ 200 mls/hr IVPB Q8H-IV [facility] Last Admin: 05/10/18 09:02 Dose: 200 mls/hr Insulin Aspart (Novolog Vial Sliding Scale -) 1 vial SQ ACHS [facility]; Protocol Last Admin: 05/10/18 11:25 Dose: 4 units Methylprednisolone Sodium Succinate (Solu-Medrol -) 40 mg IVPUSH BID [facility] Last Admin: 05/10/18 09:03 Dose: 40 mg Metoprolol Tartrate (Lopressor Injection -) 5 mg IVPUSH Q4H PRN PRN Reason: TACHYCARDIA Last Admin: 05/08/18 04:00 Dose: 5 mg Potassium Chloride (Potassium Chloride Oral Liquid) 40 meq NGT BID [facility] Last Admin: 05/10/18 09:02 Dose: 40 meq Potassium Phos/Sodium Phos (Phos-Nak Packet -) 1 packet PO DAILY [facility] Last Admin: 05/10/18 09:02 Dose: 1 packet Sodium Chloride ([place] Nasal [place] -) 2 spray NS BID PRN PRN Reason: NASAL CONGESTION ASSESSMENT AND PLAN: Acute on Chronic Hypoxic and Hypercapneic Respiratory Failure Septic Shock improving Lactic Acidosis resolved Acute on Chronic Diastolic Heart Failure Severe Mitral Regurgitation Thrombocytopenia CAD Acute COPD Exacerbation Lung Mass Pulmonary HTN Paroxysmal Atrial Fibrillation with RVR HTN Hypercholesterolemia - completed antibiotics - off pressors, maintain MAP >65 - monitor urine output, creatinine - monitor CBC - holding anticoagulation - rate control - taper medrol - inhaled bronchodilators - O2 to keep SpO2 >90% - enteral feeds - spontaneous breathing trials as tolerated but will need tracheostomy - DVT/GI prophylaxis critical care time spent in reviewing chart, evaluating patient and formulating plan 35 min
--- NOTE | 2018-05-10 13:28 | PN ---
Progress Note (short form) - Note Progress Note: remains intubated alert no pressors Vital Signs Period Temp Pulse Resp BP Sys/Morgan Pulse Ox Last 24 Hr 97.5 F-99.0 F 64-89 12-24 101-116/54-64 94-100 cor-rrr lungs decreased bs at bases abd soft,nt ext +ecchymoses CBC, BMP 05/10/18 05:15 05/10/18 05:15 Microbiology 05/06/18 16:00 Sputum - Endotrachea Suction/Ventilator Gram Stain - Final 05/06/18 16:00 Sputum - Endotrachea Suction/Ventilator Sputum Culture - Final Stenotrophomon.(X.)Maltophilia Enterobacter Aerogenes Yeast Like Organism 05/06/18 17:00 Blood - Peripheral Venous Blood Culture - Final Roseomonas Species 05/06/18 19:19 Blood - Peripheral Venous Blood Culture - Preliminary NO GROWTH OBTAINED AFTER 72 HOURS, INCUBATION TO CONTINUE FOR 2 DAYS. 04/23/18 11:30 Blood - Peripheral Venous Blood Culture - Final Campylobacter Gracilis 04/28/18 12:27 Blood - Peripheral Venous Blood Culture - Final NO GROWTH AFTER 5 DAYS INCUBATION 04/28/18 12:46 Blood - Peripheral Venous Blood Culture - Final NO GROWTH AFTER 5 DAYS INCUBATION 04/23/18 12:52 Blood - Peripheral Venous Blood Culture - Final NO GROWTH AFTER 5 DAYS INCUBATION 04/24/18 18:00 Sputum - Endotrachea Suction/Ventilator Gram Stain - Final 04/24/18 18:00 Sputum - Endotrachea Suction/Ventilator Sputum Culture - Final Enterobacter Aerogenes 04/26/18 10:00 Urine - Urine Bowling Legionella Antigen - Final 04/26/18 10:00 Urine - Urine Bowling Streptococcus pneumoniae Antigen (M - Final 04/23/18 13:00 Urine - Urine Clean Catch Urine Culture - Final NO GROWTH OBTAINED moderate to severe MR on LUBNA- no vegetation a/p FUO respiratory failure-now re intubated- ?bibasilar pneumonia vs CHF- sputum culture, blood cultures, resume meropenem, prior sputum culture with enterobacter MRSA bacteremia-day #42 MRSA treatment plan total 42 days-last day today LUBNA no vegetations-severe mitral regurgitation thrombocytopenia-s/p platelet transfusion endstage COPD afib with RVR apical lung mass suspect transient campylobacter gracilis bacteremia- one bottle-just identified today - got 4 days meropenem, repeat blood cultures negative now with gram negative bacteremia-roseomonas!- will continue meropenem- repeat blood cultures today will d/w microbiology if they can do sensitivities overall prognosis is guarded d/w at bedside for possible transfer to [place] Problem List - Problems (1) Sepsis Code(s): A41.9 - SEPSIS, UNSPECIFIED ORGANISM (2) Epistaxis, recurrent Code(s): R04.0 - EPISTAXIS (3) MRSA bacteremia Code(s): R78.81 - BACTEREMIA
[2018-05-10] MEDS: VANCOMYCIN 1 GRAM (PRE-DOCKED) 1,000 MG/250 ML BAG IVPB SCH (13:45)
--- NOTE | 2018-05-10 13:57 | PN ---
Progress Note, Physician Chief Complaint: patient intubated awake off sedation - Current Medication List Current Medications: Active Medications Acetaminophen (Tylenol -) 650 mg PO Q6H PRN PRN Reason: FEVER Last Admin: 05/08/18 19:45 Dose: 650 mg Albuterol/Ipratropium (Duoneb -) 1 amp NEB RTID [facility] Last Admin: 05/10/18 13:52 Dose: 1 amp Amino Acids (Prosource No Carb Liquid Pkt) 30 ml PO DAILY [facility] Last Admin: 05/10/18 09:03 Dose: 30 ml Chlorhexidine Gluconate (Hibiclens For Decolonization -) 1 applic TP HS [facility] Last Admin: 05/09/18 21:23 Dose: 1 applic Chlorhexidine Gluconate (Peridex -) 15 ml MM BID [facility] Last Admin: 05/10/18 09:02 Dose: 15 ml Diltiazem HCl (Cardizem -) 30 mg PO TID [facility] Last Admin: 05/10/18 06:12 Dose: 30 mg Escitalopram Oxalate (Lexapro -) 20 mg PO DAILY [facility] Last Admin: 05/10/18 09:02 Dose: 20 mg Famotidine/Sodium Chloride (Pepcid 20 Mg Premixed Ivpb -) 20 mg in 50 mls @ 100 mls/hr IVPB BID [facility] Last Admin: 05/10/18 09:02 Dose: 100 mls/hr Propofol (Diprivan -) 1,000,000 mcg in 100 mls @ 1.86 mls/hr IVPB TITR [facility]; Protocol Last Titration: 05/10/18 10:30 Dose: 0 mcg/kg/min, 0 mls/hr Meropenem 1 gm/ Dextrose 100 mls @ 200 mls/hr IVPB Q8H-IV [facility] Last Admin: 05/10/18 09:02 Dose: 200 mls/hr Insulin Aspart (Novolog Vial Sliding Scale -) 1 vial SQ ACHS [facility]; Protocol Last Admin: 05/10/18 11:25 Dose: 4 units Methylprednisolone Sodium Succinate (Solu-Medrol -) 40 mg IVPUSH BID [facility] Last Admin: 05/10/18 09:03 Dose: 40 mg Metoprolol Tartrate (Lopressor Injection -) 5 mg IVPUSH Q4H PRN PRN Reason: TACHYCARDIA Last Admin: 05/08/18 04:00 Dose: 5 mg Potassium Chloride (Potassium Chloride Oral Liquid) 40 meq NGT BID [facility] Last Admin: 05/10/18 09:02 Dose: 40 meq Potassium Phos/Sodium Phos (Phos-Nak Packet -) 1 packet PO DAILY [facility] Last Admin: 05/10/18 09:02 Dose: 1 packet Sodium Chloride ([place] Nasal [place] -) 2 spray NS BID PRN PRN Reason: NASAL CONGESTION Vancomycin HCl (Vancomycin (Pre-Docked)) 1,000 mg IVPB BID@0200,1400 [facility]; Protocol Stop: 05/11/18 14:01 Last Admin: 05/10/18 13:45 Dose: 1,000 mg Vancomycin HCl (Vancomycin (Pre-Docked)) 1,000 mg IVPB BID@0200,1400 [facility] - Objective Vital Signs: Vital Signs Temperature 98.9 F 05/10/18 12:00 Pulse Rate 89 05/10/18 12:00 Respiratory Rate 18 05/10/18 13:52 Blood Pressure 111/59 L 05/10/18 12:00 O2 Sat by Pulse Oximetry (%) 94 L 05/10/18 10:30 Constitutional: Yes: Calm Cardiovascular: Yes: Regular Rate and Rhythm, S1, S2 Respiratory: Yes: Mechanically Ventilated Gastrointestinal: Yes: Normal Bowel Sounds, Soft Labs: CBC, BMP 05/10/18 05:15 05/10/18 05:15 INR, PTT INR 1.30 (0.83-1.09) H 05/08/18 08:50 Fibrinogen 467.0 mg/dL (238-498) D 05/08/18 08:50 Problem List - Problems (1) Fever Assessment/Plan: isolation for MRSA Microbiology 04/28/18 12:46 Blood - Peripheral Venous Blood Culture - Final NO GROWTH AFTER 5 DAYS INCUBATION 04/28/18 12:27 Blood - Peripheral Venous Blood Culture - Final NO GROWTH AFTER 5 DAYS INCUBATION 04/26/18 10:00 Urine - Urine [place] Legionella Antigen - Final 04/26/18 10:00 Urine - Urine [place] Streptococcus pneumoniae Antigen (M - Final Microbiology 05/06/18 17:00 Blood - Peripheral Venous Blood Culture - Final Roseomonas Species 05/06/18 16:00 Sputum - Endotrachea Suction/Ventilator Gram Stain - Final 05/06/18 16:00 Sputum - Endotrachea Suction/Ventilator Sputum Culture - Final Stenotrophomon.(X.)Maltophilia Enterobacter Aerogenes Yeast Like Organism continue meropenem Code(s): R50.9 - FEVER, UNSPECIFIED (2) Hypotension Assessment/Plan: improved Code(s): I95.9 - HYPOTENSION, UNSPECIFIED Qualifiers: Hypotension type: other hypotension type Qualified Code(s): I95.89 - Other hypotension (3) Nasal hemorrhage Assessment/Plan: improved Code(s): R04.0 - EPISTAXIS (4) Anxiety Assessment/Plan: xanax lexapro 20mg Code(s): F41.9 - ANXIETY DISORDER, UNSPECIFIED (5) COPD (chronic obstructive pulmonary disease) Assessment/Plan: in icu now intubated possible trach iv steroids bronchodilators Code(s): J44.9 - CHRONIC OBSTRUCTIVE PULMONARY DISEASE, UNSPECIFIED Qualifiers: COPD type: unspecified COPD Qualified Code(s): J44.9 - Chronic obstructive pulmonary disease, unspecified (6) BPH (benign prostatic hypertrophy) Assessment/Plan: flomax Code(s): N40.0 - BENIGN PROSTATIC HYPERPLASIA WITHOUT LOWER URINRY TRACT SYMP (7) MRSA bacteremia Assessment/Plan: on contact isolation iv abx day 38 of 42 iv vanco LUBNA done no vegetations noted Code(s): R78.81 - BACTEREMIA (8) Paroxysmal A-fib Assessment/Plan: icu monitoring cardizem and lopressor IV amiodarone for rhytm control lovenox Code(s): I48.0 - PAROXYSMAL ATRIAL FIBRILLATION (9) Hypokalemia Assessment/Plan: repleted will recheck Code(s): E87.6 - HYPOKALEMIA
[2018-05-10] MEDS: PROPOFOL 1,000,000 MCG/100 ML VIAL IVPB SCH (14:00)
--- NOTE | 2018-05-10 15:02 | PN ---
Progress Note (short form) - Note Progress Note: Patient and family desire transfer to [facility]. Transfer consent received. Accepting ICU physician Dr. Pfeiffer. Will initiate transfer.
[2018-05-10 16:59] LABS: ANION GAP 5 MMOL/L (8-16); BLOOD UREA NITROGEN 39 mg/dL (7-18); CALCIUM 7.4 mg/dL (8.5-10.1); CHLORIDE 97 mmol/L (98-107); CO2 42 mmol/L (21-32); CREATININE 0.7 mg/dL (0.55-1.3); GLUCOSE,RANDOM 207 mg/dL (74-106); POTASSIUM 3.5 mmol/L (3.5-5.1); SODIUM 144 mmol/L (136-145)
[2018-05-10 17:31] LABS: MAGNESIUM 2.3 mg/dL (1.8-2.4); PHOSPHOROUS 2.1 mg/dL (2.5-4.9)
[2018-05-10] MEDS ORDERED: POTASSIUM PHOSPHATE 20 MM in DEXTROSE 5%-WATER - 250 ML IVPB ONE (18:10)
[2018-05-10] MEDS: ALPRAZolam 0.25 MG TABLET PO PRN (18:15)
--- NOTE | 2018-05-10 18:20 | PN ---
Teaching Attending Note Name of Resident: Deandra Murray ATTENDING PHYSICIAN STATEMENT I saw and evaluated the patient. I reviewed the resident's note and discussed the case with the resident. I agree with the resident's findings and plan as documented. ASSESSMENT AND PLAN: Acute on Chronic Hypoxic and Hypercapneic Respiratory Failure Septic Shock improving Lactic Acidosis resolved Acute on Chronic Diastolic Heart Failure Severe Mitral Regurgitation Thrombocytopenia CAD Acute COPD Exacerbation Lung Mass Pulmonary HTN Paroxysmal Atrial Fibrillation with RVR HTN Hypercholesterolemia thrombocytopenia --due to ongoing bacteremia/? pneumonia On meropenem HIT negativ yang 04/27 monitor cbc/coags
[2018-05-10] MEDS: CHLORHEXIDINE GLUCONATE 4% CLEANSER FOR DECOLONIZATION TP SCH (21:32)
[2018-05-11] MEDS: MEROPENEM 1 GM in DEXTROSE 5%-WATER 100 ML IVPB SCH ×3 (02:00→17:28)
[2018-05-11] MEDS: VANCOMYCIN 1 GRAM (PRE-DOCKED) 1,000 MG/250 ML BAG IVPB SCH ×2 (02:00→15:44)
[2018-05-11 05:36] LABS: BASO % 0.2 % (0-2.0); HEMATOCRIT 24.2 % (35.4-49); MCH 29.9 pg (25.7-33.7); MEAN CELL VOLUME 90.7 fl (80-96); MEAN PLT VOLUME 8.6 fl (7.5-11.1); MONO % 0.8 % (3.8-10.2); PLATELET COUNT 68 K/MM3 (134-434); RBC 2.67 M/mm3 (4.00-5.60); RDW 16.3 % (11.9-15.9); WHITE BLOOD COUNT 9.7 K/mm3 (4.0-10.0)
[2018-05-11 06:13] LABS: ALBUMIN 1.9 g/dl (3.4-5.0); ALK PHOS 162 U/L (45-117); ANION GAP 5 MMOL/L (8-16); BILIRUBIN,TOTAL 1.1 mg/dL (0.2-1); BLOOD UREA NITROGEN 36 mg/dL (7-18); CALCIUM 7.4 mg/dL (8.5-10.1); CHLORIDE 98 mmol/L (98-107); CO2 39 mmol/L (21-32); CREATININE 0.7 mg/dL (0.55-1.3); GLUCOSE,RANDOM 224 mg/dL (74-106); MAGNESIUM 2.1 mg/dL (1.8-2.4); PHOSPHOROUS 2.7 mg/dL (2.5-4.9); POTASSIUM 4.3 mmol/L (3.5-5.1); SGOT/AST 23 U/L (15-37); SGPT/ALT 36 U/L (13-61); SODIUM 142 mmol/L (136-145); TOT PROT 4.9 g/dl (6.4-8.2)
[2018-05-11 06:17] LABS: ARTERIAL BLD GAS O2 SATURATION 82.3 % (90-98.9); ARTERIAL BLOOD GAS BASE EXCESS 14.8 meq/l (-2-2); ARTERIAL BLOOD GAS pH 7.41 (7.35-7.45)
[2018-05-11 06:21] LABS: ALLENS TEST POSITIVE
[2018-05-11 06:24] LABS: ARTERIAL BLOOD GAS PCO2 66.8 mmHg (35-45)
[2018-05-11] MEDS: dilTIAZem HCL 30 MG TABLET (FP) PO SCH ×3 (06:54→21:32)
[2018-05-11] MEDS: INSULIN SLIDING SCALE (NOVOLOG) 1 VIAL SQ SCH ×4 (06:54→21:40)
[2018-05-11] MEDS: ALBUTEROL SO4 2.5/IPRATROPIUM 0.5 INH SOL 3 ML VIAL.NEB. NEB SCH ×3 (07:20→21:00)
--- NOTE | 2018-05-11 07:35 | PN ---
Progress Note (short form) - Note Progress Note: Chief Complaint: Events noted, notes reviewed, remains intubated off of sedation awake and alert, no further paroxysmal atrial fibrillation noted, remains in sinus rhythm History of Present Illness: Seen and examined in the ICU. Events noted, notes reviewed, remains intubated off of sedation awake and alert, no further paroxysmal atrial fibrillation noted , remains in sinus rhythm Awaiting transfer to [facility] [place] for further evaluation and management - Current Medication List Current Medications Acetaminophen (Tylenol -) 650 mg PO Q6H PRN PRN Reason: FEVER Last Admin: 05/08/18 19:45 Dose: 650 mg Albuterol/Ipratropium (Duoneb -) 1 amp NEB RTID [facility] Last Admin: 05/10/18 20:58 Dose: 1 amp Alprazolam (Xanax -) 0.25 mg PO Q6H PRN PRN Reason: ANXIETY Last Admin: 05/10/18 18:15 Dose: 0.25 mg Amino Acids (Prosource No Carb Liquid Pkt) 30 ml PO DAILY [facility] Last Admin: 05/10/18 09:03 Dose: 30 ml Chlorhexidine Gluconate (Hibiclens For Decolonization -) 1 applic TP HS [facility] Last Admin: 05/10/18 21:32 Dose: 1 applic Chlorhexidine Gluconate (Peridex -) 15 ml MM BID [facility] Last Admin: 05/10/18 21:32 Dose: 15 ml Diltiazem HCl (Cardizem -) 30 mg PO TID [facility] Last Admin: 05/11/18 06:54 Dose: 30 mg Escitalopram Oxalate (Lexapro -) 20 mg PO DAILY [facility] Last Admin: 05/10/18 09:02 Dose: 20 mg Famotidine/Sodium Chloride (Pepcid 20 Mg Premixed Ivpb -) 20 mg in 50 mls @ 100 mls/hr IVPB BID [facility] Last Admin: 05/10/18 21:32 Dose: 100 mls/hr Propofol (Diprivan -) 1,000,000 mcg in 100 mls @ 1.86 mls/hr IVPB TITR [facility]; Protocol Last Admin: 05/10/18 14:00 Dose: Not Given Meropenem 1 gm/ Dextrose 100 mls @ 200 mls/hr IVPB Q8H-IV [facility] Last Admin: 05/11/18 02:00 Dose: 200 mls/hr Insulin Aspart (Novolog Vial Sliding Scale -) 1 vial SQ ACHS [facility]; Protocol Last Admin: 05/11/18 06:54 Dose: 4 units Methylprednisolone Sodium Succinate (Solu-Medrol -) 40 mg IVPUSH BID [facility] Last Admin: 05/10/18 21:32 Dose: 40 mg Metoprolol Tartrate (Lopressor Injection -) 5 mg IVPUSH Q4H PRN PRN Reason: TACHYCARDIA Last Admin: 05/08/18 04:00 Dose: 5 mg Potassium Chloride (Potassium Chloride Oral Liquid) 40 meq NGT BID [facility] Last Admin: 05/10/18 21:32 Dose: 40 meq Potassium Phos/Sodium Phos (Phos-Nak Packet -) 1 packet PO DAILY [facility] Last Admin: 05/10/18 09:02 Dose: 1 packet Sodium Chloride ([place] Nasal [place] -) 2 spray NS BID PRN PRN Reason: NASAL CONGESTION Vancomycin HCl (Vancomycin (Pre-Docked)) 1,000 mg IVPB BID@0200,1400 [facility]; Protocol Stop: 05/11/18 14:01 Last Admin: 05/11/18 02:00 Dose: 1,000 mg Vancomycin HCl (Vancomycin (Pre-Docked)) 1,000 mg IVPB BID@0200,1400 [facility] - Review of Systems Unable to obtain - Objective Vital Signs: Last Vital Signs Temp Pulse Resp BP Pulse Ox 98.1 F 96 H 22 H 131/59 L 96 05/11/18 06:00 05/11/18 06:00 05/11/18 06:35 05/11/18 06:00 05/11/18 04:00 Intake & Output 05/08/18 05/09/18 05/10/18 05/11/18 23:59 23:59 23:59 23:59 Intake Total 2031 0 2466 775 Output Total 410 1375 1950 Balance 1621 715 516 775 Weight 147 lb 0.773 oz 145 lb 8.081 oz 147 lb 8 oz 149 lb 11.102 oz Neck: Supple Negative JVD Cardiovascular: S1 S2 Regular Rate Rhythm Respiratory: Diminished breath sounds Bilaterally Scattered Rhonchi Gastrointestinal: Soft Benign Normal Bowel Sounds Ext: Negative Edema Labs: ABG Results ABG pH 7.41 (7.35-7.45) 05/11/18 06:00 ABG pCO2 at Pt Temp 66.8 mmHg (35-45) H* 05/11/18 06:00 ABG pO2 at Pt Temp 49.0 mmHg (80-100) L* D 05/11/18 06:00 ABG HCO3 41.1 meq/L (22-26) H* 05/11/18 06:00 ABG O2 Sat (Measured) 82.3 % (90-98.9) L 05/11/18 06:00 ABG O2 Content 9.1 % vol (15-22) L* 05/11/18 06:00 ABG Base Excess 14.8 meq/l (-2-2) H 05/11/18 06:00 CBC, BMP 05/11/18 05:15 05/11/18 05:15 Microbiology 05/06/18 19:19 Blood - Peripheral Venous Blood Culture - Preliminary NO GROWTH OBTAINED AFTER 96 HOURS, INCUBATION TO CONTINUE FOR 1 DAYS. 05/10/18 01:20 Stool Clostridium difficile Antigen (MANSI) - Final 05/10/18 01:20 Stool Clostridium difficile Toxin Assay - Final 05/06/18 16:00 Sputum - Endotrachea Suction/Ventilator Gram Stain - Final 05/06/18 16:00 Sputum - Endotrachea Suction/Ventilator Sputum Culture - Final Stenotrophomon.(X.)Maltophilia Enterobacter Aerogenes Yeast Like Organism 05/06/18 17:00 Blood - Peripheral Venous Blood Culture - Final Roseomonas Species Assessment/Plan ASSESSMENT: 1. Acute on Chronic Hypoxic Respiratory Failure referable to 2. Probable aspiration pneumonia 3. Chronic class I-II NYHA classification LV failure related to diastolic LV dysfunction, clinically euvolemic/compensated 4. CAD non-obstructive coronary artery disease angina pectoris 5. Sepsis syndrome, history of MRSA bacteremia of unclear source, with splenic infarct, with repeat abnormal blood cultures/Roseomonas Species 6. Paroxysmal atrial fibrillation with [id number] score of 2 was on A/C with DOAC's/Eliquis (A/C withheld related to thrombocytopenia), recurrent arrhythmia resolved 7. Advanced chronic obstructive pulmonary disease on home oxygen therapy with Pulmonary HTN 8. Epistaxis, recurrent resolved 9. Anemia/thrombocytopenia 10. HTN, history 11. 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 Continue Cardizem, hemodynamics permitting 2. Continue Lopressor on as needed bases 3. Recommend resumption of A/C with Eliquis, provided hemostasis is maintained and platelet counts remain stable, unless it is absolutely contraindicated 4. As outlined in prior notes if recurrent arrhythmia may consider antiarrhythmics/Amiodarone 5. Monitor Hg and transfuse as needed to maintain Hg equal or > 8.0 6. Antibiotics course as per ID service/primary team 7. Await transfer to [facility] [place] for further management 8. Eventually patient will require intervention for the above noted mitral valve pathology/MVR and or repair Ashley Bojorquez MD
--- NOTE | 2018-05-11 08:15 | PN ---
Physical Exam: SUBJECTIVE: Patient seen and examined [place] was contacted this AM and states that pt's insurance is currently being verified and then the patient will be ready for transfer. OBJECTIVE: Vital Signs Period Temp Pulse Resp BP Sys/Morgan Pulse Ox Last 24 Hr 97.5 F-98.9 F 69-96 12-24 111-131/54-62 94-100 GENERAL: The patient is awake, alert, and fully oriented, intubated HEAD: Normal with no signs of trauma. EYES: PERRLA, extraocular movements intact, sclera anicteric, conjunctiva clear. No ptosis. ENT: moist mucous membranes. NECK: Trachea midline LUNGS: slightly coarse breath sounds bilaterally, no wheezes, no crackles, no accessory muscle use. HEART: Regular rate and rhythm, S1, S2 without murmur, rub or gallop. ABDOMEN: Soft, nontender, nondistended, no guarding, no rebound, no hepatosplenomegaly, no masses. EXTREMITIES: 2+ pulses, warm, well-perfused, no edema. NEUROLOGICAL: intubated SKIN: Warm, dry, normal turgor, no rashes or lesions noted Laboratory Results - last 24 hr 05/10/18 05/10/18 05/10/18 05:15 05:15 11:23 WBC RBC Hgb Hct MCV MCH MCHC RDW Plt Count MPV Absolute Neuts (auto) Total Counted 100 Neutrophils % Chip Person Neutrophils % (Manual) No Result Required. 84.0 H D Band Neutrophils % 12.0 Lymphocytes % Chip Person Lymphocytes % (Manual) 3.0 L D Monocytes % Chip Person Monocytes % (Manual) 1 L D Eosinophils % Chip Person Basophils % Chip Person Nucleated RBC % Platelet Estimate Mod decreased Puncture Site ABG pH ABG pCO2 at Pt Temp ABG pO2 at Pt Temp ABG HCO3 ABG O2 Sat (Measured) ABG O2 Content ABG Base Excess Pardeep Test O2 Delivery Device Oxygen Flow Rate PEEP Pressure Support Vent Sodium Potassium Chloride Carbon Dioxide Anion Gap BUN Creatinine Creat Clearance w eGFR POC Glucometer 205.98752 Random Glucose Calcium Phosphorus Magnesium Total Bilirubin AST ALT Alkaline Phosphatase Total Protein Albumin 05/10/18 05/10/18 05/10/18 15:45 16:55 21:31 WBC RBC Hgb Hct MCV MCH MCHC RDW Plt Count MPV Absolute Neuts (auto) Total Counted Neutrophils % Neutrophils % (Manual) Band Neutrophils % Lymphocytes % Lymphocytes % (Manual) Monocytes % Monocytes % (Manual) Eosinophils % Basophils % Nucleated RBC % Platelet Estimate Puncture Site ABG pH ABG pCO2 at Pt Temp ABG pO2 at Pt Temp ABG HCO3 ABG O2 Sat (Measured) ABG O2 Content ABG Base Excess Pardeep Test O2 Delivery Device Oxygen Flow Rate PEEP Pressure Support Vent Sodium 144 Potassium 3.5 Chloride 97 L Carbon Dioxide 42 H Anion Gap 5 L BUN 39 H Creatinine 0.7 Creat Clearance w eGFR > 60 POC Glucometer 205.67028 189.32186 Random Glucose 207 H Calcium 7.4 L Phosphorus 2.1 L Magnesium 2.3 Total Bilirubin AST ALT Alkaline Phosphatase Total Protein Albumin 05/11/18 05/11/18 05/11/18 05:15 05:15 06:00 WBC 9.7 RBC 2.67 L Hgb 8.0 L Hct 24.2 L MCV 90.7 MCH 29.9 MCHC 33.0 RDW 16.3 H Plt Count 68 L D MPV 8.6 Absolute Neuts (auto) 9.5 H Total Counted Neutrophils % 98.0 H Neutrophils % (Manual) Band Neutrophils % Lymphocytes % 1.0 L Lymphocytes % (Manual) Monocytes % 0.8 L Monocytes % (Manual) Eosinophils % 0.0 D Basophils % 0.2 Nucleated RBC % 0 Platelet Estimate Puncture Site Right radial ABG pH 7.41 ABG pCO2 at Pt Temp 66.8 H* ABG pO2 at Pt Temp 49.0 L* D ABG HCO3 41.1 H* ABG O2 Sat (Measured) 82.3 L ABG O2 Content 9.1 L* ABG Base Excess 14.8 H Pardeep Test Positive O2 Delivery Device Vent (cpap) Oxygen Flow Rate 45% PEEP 5.0 Pressure Support Vent 10 Sodium 142 Potassium 4.3 Chloride 98 Carbon Dioxide 39 H Anion Gap 5 L BUN 36 H Creatinine 0.7 Creat Clearance w eGFR > 60 POC Glucometer Random Glucose 224 H Calcium 7.4 L Phosphorus 2.7 Magnesium 2.1 Total Bilirubin 1.1 H AST 23 ALT 36 Alkaline Phosphatase 162 H Total Protein 4.9 L Albumin 1.9 L Active Medications Generic Name Dose Route Start Last Admin Trade Name Freq PRN Reason Stop Dose Admin Acetaminophen 650 mg 04/23/18 13:40 05/08/18 19:45 Tylenol - PO 650 mg Q6H PRN Administration FEVER Albuterol/Ipratropium 1 amp 12/08/18 08:00 05/11/18 07:20 Duoneb - NEB 1 amp RTID [facility] Administration Alprazolam 0.25 mg 05/10/18 17:10 05/10/18 18:15 Xanax - PO 0.25 mg Q6H PRN Administration ANXIETY Amino Acids 30 ml 04/28/18 15:00 05/10/18 09:03 Prosource No Carb Liquid Pkt PO 30 ml DAILY [facility] Administration Chlorhexidine Gluconate 1 applic 04/23/18 22:00 05/10/18 21:32 Hibiclens For Decolonization - TP 1 applic HS [facility] Administration Chlorhexidine Gluconate 15 ml 04/25/18 22:00 05/10/18 21:32 Peridex - MM 15 ml BID [facility] Administration Diltiazem HCl 30 mg 05/06/18 22:00 05/11/18 06:54 Cardizem - PO 30 mg TID [facility] Administration Escitalopram Oxalate 20 mg 05/05/18 16:00 05/10/18 09:02 Lexapro - PO 20 mg DAILY [facility] Administration Famotidine/Sodium Chloride 20 mg in 50 mls @ 100 mls/hr 04/24/18 10:00 21:32 Pepcid 20 Mg Premixed Ivpb - IVPB 100 mls/hr BID [facility] Administration Propofol 1,000,000 mcg in 100 mls @ 1.86 mls/hr 05/06/18 14:00 05/10/18 14:00 Diprivan - IVPB Not Given TITR [facility] Protocol 5 MCG/KG/MIN Meropenem 1 gm/ Dextrose 100 mls @ 200 mls/hr 05/06/18 18:00 05/11/18 02:00 IVPB 200 mls/hr Q8H-IV [facility] Administration Insulin Aspart 1 vial 04/24/18 11:00 05/11/18 06:54 Novolog Vial Sliding Scale - SQ 4 units ACHS [facility] Administration Protocol Methylprednisolone Sodium Succinate 40 mg 05/08/18 22:00 05/10/18 21:32 Solu-Medrol - IVPUSH 40 mg BID [facility] Administration Metoprolol Tartrate 5 mg 04/27/18 14:35 05/08/18 04:00 Lopressor Injection - IVPUSH 5 mg Q4H PRN Administration TACHYCARDIA Potassium Chloride 40 meq 05/10/18 10:00 05/10/18 21:32 Potassium Chloride Oral Liquid NGT 40 meq BID [facility] Administration Potassium Phos/Sodium Phos 1 packet 05/02/18 10:00 05/10/18 09:02 Phos-Nak Packet - PO 1 packet DAILY [facility] Administration Sodium Chloride 2 spray 04/29/18 09:00 [place] Nasal [place] - NS BID PRN NASAL CONGESTION Vancomycin HCl 1,000 mg 05/10/18 14:00 05/11/18 02:00 Vancomycin (Pre-Docked) IVPB 05/11/18 14:01 1,000 mg BID@0200,1400 [facility] Administration Protocol Vancomycin HCl 1,000 mg 05/11/18 14:00 Vancomycin (Pre-Docked) IVPB BID@0200,1400 [facility] ASSESSMENT/PLAN: Patient is a 67 yo M with history of COPD on home oxygen (3L), Interstitial lung disease, HTN, HLD, CHF, diastolic LV dysfunction, AK, CAD, GERD, hiatal hernia, recent dx of Afib with RVR, presenting to the ER with a complaint of epistaxis, hypotension and tachycardia. Now admitted to ICU for septic shock. Pt was recently admitted for MRSA bacteremia ID Septic Shock -likely 2/2 urosepsis - ID following case - source of sepsis likely urine as UA: +leuk esterase, + wbc - blood and urine culture neg, sputum culture with gram negative bacilli - CT scan chest/abd/pelvis (04/25) : L upper air filled cavity in L upper chest , R upper fluid structure(possible abscess) - unchanged from 04/01 - Keep MAP> 65 - femoral line removed, picc line removed - on methylprednisone 40mg IVP daily, will continue to taper MRSA Bacteremia with suspicion of endocarditis, last admission - LUBNA completed (04/27) - LVEF 60-65%, moderate mitral valve prolapse, severe mitral regurgitation, mild tricuspid regurg, mild aortic regurg, mild aortic sclerosis, no vegetation - MRSA bacteremia-day #42 MRSA treatment plan total 42 days - antibiotics as per ID: vancomycin and meropenem - blood cultures sent on 05/06 - Roseomonas - repeat blood cultures sent 05/10 - pending GI Loose stools - rectal tube placed with loose stools and low K - likely GI loss - pending C.diff Heme Acute blood loss, normocytic anemia, likely 2/2 epistaxis, required 2pRBC ( resolved) - Tranfusion goal of Hb > 8 - nasal packing removed (04/27) w/o complications - ENT following (Dr. Clarke) - keep head end elevated Thrombocytopenia, baseline around 130-140 and since 03/02/18 has been decreasing to 80s, likely 2/2 sepsis and antibiotics. - Plts stable at 68 this AM, after 1U of platelets yesterday - HIT Ab pending - will discuss with heme - Heme consulted, following case, thrombocytopenia thought to be 2/2 MRSA bacteremia Epistaxis from the L nares (resolved) - L nasal packing done in ED, ENT consulted ENT recommends nasal packing until Thursday - nasal packing removed (04/27) w/o complications - nasal saline spray bid, observe for bleeding Cardiac Diastolic LV dysfunc, CHF, phx AK, CAD, Afib w/ RVR - Last ECHO (03/31/18) - normal EF, L ventricular function normal, severe MR, moderate TR - Tele monitoring - home dose lipitor - Trop: neg - cardizem TID, lopressor IVP - Cardiology following HTN - hypotensive 2/2 septic shock Afib - hold Lovenox for AC due to abrupt drop in plt. f/u HIT AB - will restart AC when platelets > 70 - [id number] score of 3 Pulm COPD, uses 3L home oxygen continue 3L of oxygen, patient intubated - CXR daily - CXR: RUL fluid collection (possible abscess), LINDSEY air collection unchanged from 04/01/18 - Per ID: plan for biopsy/drainage of RUL collection when extubated - Ipratroprium neb - Intubated Ortho Bilateral femoral head avascular necrosis - noted on CT abd/pelvis (04/25) - Ortho following case, Dr. Baez - No orthopedic intervention 2/2 medical status F/E/N - NG tube feeds - Electrolytes trend - Diabetic diet - Sher cath PPX DVT: SCDs. AC held for thrombocytopenia, restart when platelets > 70 GI: pepcid BID Lines, Tubes: sher, PIV, ET tube, NG tube Code Status: full code Dispo: Pending transfer to [facility] ICU Visit type - Emergency Visit Emergency Visit: No - New Patient This patient is new to me today: No - Critical Care Critical Care patient: Yes Total Critical Care Time (in minutes): 35 Critical Care Statement: The care of this patient involved high complexity decision making to prevent further life threatening deterioration of the patient 's condition and/or to evaluate & treat vital organ system(s) failure or risk of failure.
[2018-05-11] MEDS: methylPREDNISolone NA SUCC 40 MG/1 ML VIAL IVPUSH SCH (09:36)
--- NOTE | 2018-05-11 09:36 | PN ---
Progress Note, Physician - Current Medication List Current Medications: Active Medications Acetaminophen (Tylenol -) 650 mg PO Q6H PRN PRN Reason: FEVER Last Admin: 05/08/18 19:45 Dose: 650 mg Albuterol/Ipratropium (Duoneb -) 1 amp NEB RTID [facility] Last Admin: 05/11/18 07:20 Dose: 1 amp Alprazolam (Xanax -) 0.25 mg PO Q6H PRN PRN Reason: ANXIETY Last Admin: 05/10/18 18:15 Dose: 0.25 mg Amino Acids (Prosource No Carb Liquid Pkt) 30 ml PO DAILY [facility] Last Admin: 05/10/18 09:03 Dose: 30 ml Chlorhexidine Gluconate (Hibiclens For Decolonization -) 1 applic TP HS [facility] Last Admin: 05/10/18 21:32 Dose: 1 applic Chlorhexidine Gluconate (Peridex -) 15 ml MM BID [facility] Last Admin: 05/10/18 21:32 Dose: 15 ml Diltiazem HCl (Cardizem -) 30 mg PO TID [facility] Last Admin: 05/11/18 06:54 Dose: 30 mg Escitalopram Oxalate (Lexapro -) 20 mg PO DAILY [facility] Last Admin: 05/10/18 09:02 Dose: 20 mg Famotidine/Sodium Chloride (Pepcid 20 Mg Premixed Ivpb -) 20 mg in 50 mls @ 100 mls/hr IVPB BID [facility] Last Admin: 05/10/18 21:32 Dose: 100 mls/hr Propofol (Diprivan -) 1,000,000 mcg in 100 mls @ 1.86 mls/hr IVPB TITR [facility]; Protocol Last Admin: 05/10/18 14:00 Dose: Not Given Meropenem 1 gm/ Dextrose 100 mls @ 200 mls/hr IVPB Q8H-IV [facility] Last Admin: 05/11/18 02:00 Dose: 200 mls/hr Insulin Aspart (Novolog Vial Sliding Scale -) 1 vial SQ ACHS [facility]; Protocol Last Admin: 05/11/18 06:54 Dose: 4 units Methylprednisolone Sodium Succinate (Solu-Medrol -) 40 mg IVPUSH BID [facility] Last Admin: 05/10/18 21:32 Dose: 40 mg Metoprolol Tartrate (Lopressor Injection -) 5 mg IVPUSH Q4H PRN PRN Reason: TACHYCARDIA Last Admin: 05/08/18 04:00 Dose: 5 mg Potassium Chloride (Potassium Chloride Oral Liquid) 40 meq NGT BID [facility] Last Admin: 05/10/18 21:32 Dose: 40 meq Potassium Phos/Sodium Phos (Phos-Nak Packet -) 1 packet PO DAILY [facility] Last Admin: 05/10/18 09:02 Dose: 1 packet Sodium Chloride ([place] Nasal [place] -) 2 spray NS BID PRN PRN Reason: NASAL CONGESTION Vancomycin HCl (Vancomycin (Pre-Docked)) 1,000 mg IVPB BID@0200,1400 [facility]; Protocol Stop: 05/11/18 14:01 Last Admin: 05/11/18 02:00 Dose: 1,000 mg Vancomycin HCl (Vancomycin (Pre-Docked)) 1,000 mg IVPB BID@0200,1400 [facility] - Objective Vital Signs: Vital Signs Temperature 98.1 F 05/11/18 06:00 Pulse Rate 72 05/11/18 08:00 Respiratory Rate 24 H 05/11/18 08:37 Blood Pressure 106/56 L 05/11/18 08:00 O2 Sat by Pulse Oximetry (%) 96 05/11/18 04:00 Cardiovascular: Yes: S1, S2 Respiratory: Yes: Mechanically Ventilated Gastrointestinal: Yes: Normal Bowel Sounds, Soft Neurological: Yes: Confusion Labs: CBC, BMP 05/11/18 05:15 05/11/18 05:15 INR, PTT INR 1.30 (0.83-1.09) H 05/08/18 08:50 Fibrinogen 467.0 mg/dL (238-498) D 05/08/18 08:50 Problem List - Problems (1) Acute and chronic respiratory failure with hypercapnia Code(s): J96.22 - ACUTE AND CHRONIC RESPIRATORY FAILURE WITH HYPERCAPNIA (2) Anemia Code(s): D64.9 - ANEMIA, UNSPECIFIED Qualifiers: Anemia type: unspecified type Qualified Code(s): D64.9 - Anemia, unspecified (3) COPD (chronic obstructive pulmonary disease) Code(s): J44.9 - CHRONIC OBSTRUCTIVE PULMONARY DISEASE, UNSPECIFIED Qualifiers: COPD type: unspecified COPD Qualified Code(s): J44.9 - Chronic obstructive pulmonary disease, unspecified (4) MRSA bacteremia Code(s): R78.81 - BACTEREMIA (5) Nasal hemorrhage Code(s): R04.0 - EPISTAXIS (6) Afib Code(s): I48.91 - UNSPECIFIED ATRIAL FIBRILLATION (7) Thrombocytopenia Code(s): D69.6 - THROMBOCYTOPENIA, UNSPECIFIED Assessment/Plan - Problems (1) Fever Assessment/Plan: isolation for MRSA Microbiology 04/28/18 12:46 Blood - Peripheral Venous Blood Culture - Final NO GROWTH AFTER 5 DAYS INCUBATION 04/28/18 12:27 Blood - Peripheral Venous Blood Culture - Final NO GROWTH AFTER 5 DAYS INCUBATION 04/26/18 10:00 Urine - Urine Bowling Legionella Antigen - Final 04/26/18 10:00 Urine - Urine Bowling Streptococcus pneumoniae Antigen (M - Final Microbiology 05/06/18 17:00 Blood - Peripheral Venous Blood Culture - Final Roseomonas Species 05/06/18 16:00 Sputum - Endotrachea Suction/Ventilator Gram Stain - Final 05/06/18 16:00 Sputum - Endotrachea Suction/Ventilator Sputum Culture - Final Stenotrophomon.(X.)Maltophilia Enterobacter Aerogenes Yeast Like Organism continue meropenem Code(s): R50.9 - FEVER, UNSPECIFIED (2) Hypotension Assessment/Plan: improved Code(s): I95.9 - HYPOTENSION, UNSPECIFIED Qualifiers: Hypotension type: other hypotension type Qualified Code(s): I95.89 - Other hypotension (3) Nasal hemorrhage Assessment/Plan: improved Code(s): R04.0 - EPISTAXIS (4) Anxiety Assessment/Plan: xanax lexapro 20mg Code(s): F41.9 - ANXIETY DISORDER, UNSPECIFIED (5) COPD (chronic obstructive pulmonary disease) Assessment/Plan: in icu now intubated --trial of weaning iv steroids bronchodilators Code(s): J44.9 - CHRONIC OBSTRUCTIVE PULMONARY DISEASE, UNSPECIFIED Qualifiers: COPD type: unspecified COPD Qualified Code(s): J44.9 - Chronic obstructive pulmonary disease, unspecified (6) BPH (benign prostatic hypertrophy) Assessment/Plan: flomax Code(s): N40.0 - BENIGN PROSTATIC HYPERPLASIA WITHOUT LOWER URINRY TRACT SYMP (7) MRSA bacteremia Assessment/Plan: on contact isolation iv abx day 38 of 42 iv vanco LUBNA done no vegetations noted Code(s): R78.81 - BACTEREMIA (8) Paroxysmal A-fib Assessment/Plan: icu monitoring cardizem and lopressor IV amiodarone for rhytm control lovenox Code(s): I48.0 - PAROXYSMAL ATRIAL FIBRILLATION (9) Hypokalemia Assessment/Plan: repleted will recheck Code(s): E87.6 - HYPOKALEMIA
[2018-05-11] MEDS: POTASSIUM CHLORIDE ORAL LIQUID 20 MEQ/15 ML NGT SCH ×2 (09:37→21:32)
[2018-05-11] MEDS: FAMOTIDINE 20 MG/50 ML IVPB 20 MG/50 ML MG IVPB SCH ×2 (09:37→21:32)
[2018-05-11] MEDS: CHLORHEXIDINE GLUCONATE 0.12% 15ML CUP MM SCH ×2 (09:40→21:32)
[2018-05-11] MEDS: NAPH,MB-DB/K PH,MBDB POWDER PACKET PO SCH (09:41)
[2018-05-11] MEDS: ALPRAZolam 0.25 MG TABLET PO PRN ×2 (09:41→19:13)
[2018-05-11] MEDS: ESCITALOPRAM OXALATE 20 MG TABLET (FP) PO SCH (09:41)
[2018-05-11] MEDS: AMINO ACIDS/PROTEIN HYDROLYS 30 ML LIQUID.PKT PO SCH (09:41)
--- NOTE | 2018-05-11 11:54 | PN ---
Teaching Attending Note Name of Resident: Candida Parnell ATTENDING PHYSICIAN STATEMENT I saw and evaluated the patient. I reviewed the resident's note and discussed the case with the resident. I agree with the resident's findings and plan as documented. SUBJECTIVE: Pt seen and examined in the ICU. Remains intubated, awake off sedation. Was on CPAP/PS overnight but now stating he is feeling like he is tiring out. OBJECTIVE: Vital Signs Period Temp Pulse Resp BP Sys/Morgan Pulse Ox Last 24 Hr 97.5 F-98.9 F 72-96 17-24 106-131/54-62 95-98 Intake & Output 05/08/18 05/09/18 05/10/18 05/11/18 23:59 23:59 23:59 23:59 Intake Total 2031 2090 2466 775 Output Total 410 1375 1950 Balance 1621 715 516 775 Weight 66.7 kg 66 kg 66.905 kg 67.9 kg Gen: intubated, awake Heart: RRR Lung: scattered rhonchi Abd: soft, nontender Ext: no edema CBC, BMP 05/11/18 05:15 05/11/18 05:15 Active Medications Acetaminophen (Tylenol -) 650 mg PO Q6H PRN PRN Reason: FEVER Last Admin: 05/08/18 19:45 Dose: 650 mg Albuterol/Ipratropium (Duoneb -) 1 amp NEB RTID [facility] Last Admin: 05/11/18 07:20 Dose: 1 amp Alprazolam (Xanax -) 0.25 mg PO Q6H PRN PRN Reason: ANXIETY Last Admin: 05/11/18 09:41 Dose: 0.25 mg Amino Acids (Prosource No Carb Liquid Pkt) 30 ml PO DAILY [facility] Last Admin: 05/11/18 09:41 Dose: 30 ml Chlorhexidine Gluconate (Hibiclens For Decolonization -) 1 applic TP HS [facility] Last Admin: 05/10/18 21:32 Dose: 1 applic Chlorhexidine Gluconate (Peridex -) 15 ml MM BID [facility] Last Admin: 05/11/18 09:40 Dose: 15 ml Diltiazem HCl (Cardizem -) 30 mg PO TID [facility] Last Admin: 05/11/18 06:54 Dose: 30 mg Escitalopram Oxalate (Lexapro -) 20 mg PO DAILY [facility] Last Admin: 05/11/18 09:41 Dose: 20 mg Famotidine/Sodium Chloride (Pepcid 20 Mg Premixed Ivpb -) 20 mg in 50 mls @ 100 mls/hr IVPB BID [facility] Last Admin: 05/11/18 09:37 Dose: 100 mls/hr Propofol (Diprivan -) 1,000,000 mcg in 100 mls @ 1.86 mls/hr IVPB TITR [facility]; Protocol Last Admin: 05/10/18 14:00 Dose: Not Given Meropenem 1 gm/ Dextrose 100 mls @ 200 mls/hr IVPB Q8H-IV [facility] Last Admin: 05/11/18 09:35 Dose: 200 mls/hr Insulin Aspart (Novolog Vial Sliding Scale -) 1 vial SQ ACHS [facility]; Protocol Last Admin: 05/11/18 06:54 Dose: 4 units Methylprednisolone Sodium Succinate (Solu-Medrol -) 40 mg IVPUSH DAILY [facility] Metoprolol Tartrate (Lopressor Injection -) 5 mg IVPUSH Q4H PRN PRN Reason: TACHYCARDIA Last Admin: 05/08/18 04:00 Dose: 5 mg Potassium Chloride (Potassium Chloride Oral Liquid) 40 meq NGT BID [facility] Last Admin: 05/11/18 09:37 Dose: 40 meq Potassium Phos/Sodium Phos (Phos-Nak Packet -) 1 packet PO DAILY [facility] Last Admin: 05/11/18 09:41 Dose: 1 packet Sodium Chloride ([place] Nasal [place] -) 2 spray NS BID PRN PRN Reason: NASAL CONGESTION Vancomycin HCl (Vancomycin (Pre-Docked)) 1,000 mg IVPB BID@0200,1400 [facility]; Protocol Stop: 05/11/18 14:01 Last Admin: 05/11/18 02:00 Dose: 1,000 mg Vancomycin HCl (Vancomycin (Pre-Docked)) 1,000 mg IVPB BID@0200,1400 [facility] ASSESSMENT AND PLAN: Acute on Chronic Hypoxic and Hypercapneic Respiratory Failure Septic Shock improving Lactic Acidosis resolved Acute on Chronic Diastolic Heart Failure Severe Mitral Regurgitation Thrombocytopenia CAD Acute COPD Exacerbation Lung Mass Pulmonary HTN Paroxysmal Atrial Fibrillation with RVR HTN Hypercholesterolemia - completed antibiotics - off pressors, maintain MAP >65 - monitor urine output, creatinine - monitor CBC - holding anticoagulation - rate control - taper medrol - inhaled bronchodilators - O2 to keep SpO2 >90% - enteral feeds - spontaneous breathing trials as tolerated but will likely need tracheostomy for repeated intubations - DVT/GI prophylaxis - for transfer to tertiary care center for lung biopsy critical care time spent in reviewing chart, evaluating patient and formulating plan 35 min
[2018-05-11 12:06] LABS: ACANTHOCYTES 0; ANISOCYTOSIS 0; HELMET CELLS 0; HOWELL-JOLLY BODIES 0; MACROCYTOSIS 0; OVALOCYTE 0; PLATELET ESTIMATE DECREASED; ROULEAU 0; SICKELED CELLS 0; TARGET CELLS 0; TEAR DROP CELLS 0; TOXIC GRANULATION 0
[2018-05-11] MEDS ORDERED: VANCOMYCIN 1 GRAM (PRE-DOCKED) 1,000 MG/250 ML BAG IVPB SCH (14:00)
[2018-05-11] MEDS: PROPOFOL 1,000,000 MCG/100 ML VIAL IVPB SCH (15:45)
[2018-05-11] MEDS ORDERED: PT OWN MED DRAWER 7, Y5N ONE (17:26)
--- NOTE | 2018-05-11 17:26 | PN ---
Progress Note (short form) - Note Progress Note: Patient seen and examined Remains intubated Last Vital Signs Temp Pulse Resp BP Pulse Ox 97.6 F 80 24 H 133/61 93 L 05/11/18 14:00 05/11/18 14:00 05/11/18 16:20 05/11/18 14:00 05/11/18 08:45 HEENT: SHAK[place], EOM Intact Cor: RSR, No murmurs, No gallops Lungs: diminished breath sounds Abd: Soft, Normal bowel sounds, No organomegalydistended Ext:No significant edema Skin: No rashes, Integument intact, numerous ecchymoses CBC, BMP 05/11/18 05:15 05/11/18 05:15 INR, PTT INR 1.30 (0.83-1.09) H 05/08/18 08:50 Fibrinogen 467.0 mg/dL (238-498) D 05/08/18 08:50 Current Medications Generic Name Dose Route Start Last Admin Trade Name Freq PRN Reason Stop Dose Admin Acetaminophen 650 mg 04/23/18 13:40 05/08/18 19:45 Tylenol - PO 650 mg Q6H PRN Administration FEVER Albuterol/Ipratropium 1 amp 05/08/18 08:00 05/11/18 14:23 Duoneb - NEB 1 amp RTID [facility] Administration Alprazolam 0.25 mg 05/10/18 17:10 05/11/18 09:41 Xanax - PO 0.25 mg Q6H PRN Administration ANXIETY Amino Acids 30 ml 04/28/18 15:00 05/11/18 09:41 Prosource No Carb Liquid Pkt PO 30 ml DAILY [facility] Administration Atorvastatin Calcium 10 mg 05/11/18 22:00 Lipitor - NGT HS TA Chlorhexidine Gluconate 1 applic 04/23/18 22:00 05/10/18 21:32 Hibiclens For Decolonization - TP 1 applic HS [facility] Administration Chlorhexidine Gluconate 15 ml 04/25/18 22:00 05/11/18 09:40 Peridex - MM 15 ml BID [facility] Administration Diltiazem HCl 30 mg 05/06/18 22:00 05/11/18 15:43 Cardizem - PO 30 mg TID [facility] Administration Escitalopram Oxalate 20 mg 05/05/18 16:00 05/11/18 09:41 Lexapro - PO 20 mg DAILY [facility] Administration Famotidine/Sodium Chloride 20 mg in 50 mls @ 100 mls/hr 04/24/18 10:00 09:37 Pepcid 20 Mg Premixed Ivpb - IVPB 100 mls/hr BID [facility] Administration Meropenem 1 gm/ Dextrose 100 mls @ 200 mls/hr 05/06/18 18:00 05/11/18 09:35 IVPB 200 mls/hr Q8H-IV [facility] Administration Insulin Aspart 1 vial 04/24/18 11:00 05/11/18 06:54 Novolog Vial Sliding Scale - SQ 4 units ACHS [facility] Administration Protocol Methylprednisolone Sodium Succinate 40 mg 05/12/18 10:00 Solu-Medrol - IVPUSH DAILY [facility] Metoprolol Tartrate 5 mg 04/27/18 14:35 05/08/18 04:00 Lopressor Injection - IVPUSH 5 mg Q4H PRN Administration TACHYCARDIA Potassium Chloride 40 meq 05/10/18 10:00 05/11/18 09:37 Potassium Chloride Oral Liquid NGT 40 meq BID [facility] Administration Potassium Phos/Sodium Phos 1 packet 05/02/18 10:00 05/11/18 09:41 Phos-Nak Packet - PO 1 packet DAILY [facility] Administration Sodium Chloride 2 spray 04/29/18 09:00 [place] Nasal [place] - NS BID PRN NASAL CONGESTION Vancomycin HCl 1,000 mg 05/11/18 14:00 Vancomycin (Pre-Docked) IVPB BID@0200,1400 [facility] Impression: Acute on Chronic Hypoxic and Hypercapneic Respiratory Failure Septic Shock improving Lactic Acidosis resolved Acute on Chronic Diastolic Heart Failure Severe Mitral Regurgitation Thrombocytopenia CAD Acute COPD Exacerbation Lung Mass Pulmonary HTN Paroxysmal Atrial Fibrillation with RVR HTN Hypercholesterolemia thrombocytopenia --due to ongoing bacteremia/? pneumonia On meropenem HIT negative in past monitor cbc/coags Platelett count improved to 68K To recheck coags..
--- NOTE | 2018-05-11 17:58 | PN ---
Progress Note (short form) - Note Progress Note: remains intubated alert no pressors oxygenation unchanged Vital Signs Period Temp Pulse Resp BP Sys/Morgan Pulse Ox Last 24 Hr 97.6 F-98.7 F 71-96 18-27 106-133/54-62 93-98 cor-rrr lungs decreased bs at bases abd soft,nt ext trace edema multiple ecchymoses CBC, BMP 05/11/18 05:15 05/11/18 05:15 Microbiology 05/10/18 16:55 Blood - Peripheral Venous Blood Culture - Preliminary NO GROWTH OBTAINED AFTER 24 HOURS, INCUBATION TO CONTINUE FOR 4 DAYS. 05/10/18 15:45 Blood - Peripheral Venous Blood Culture - Preliminary NO GROWTH OBTAINED AFTER 24 HOURS, INCUBATION TO CONTINUE FOR 4 DAYS. 05/06/18 19:19 Blood - Peripheral Venous Blood Culture - Preliminary NO GROWTH OBTAINED AFTER 96 HOURS, INCUBATION TO CONTINUE FOR 1 DAYS. 05/10/18 01:20 Stool Clostridium difficile Antigen (MANSI) - Final 05/10/18 01:20 Stool Clostridium difficile Toxin Assay - Final 05/06/18 16:00 Sputum - Endotrachea Suction/Ventilator Gram Stain - Final 05/06/18 16:00 Sputum - Endotrachea Suction/Ventilator Sputum Culture - Final Stenotrophomon.(X.)Maltophilia Enterobacter Aerogenes Yeast Like Organism 05/06/18 17:00 Blood - Peripheral Venous Blood Culture - Final Roseomonas Species 04/23/18 11:30 Blood - Peripheral Venous Blood Culture - Final Campylobacter Gracilis 04/28/18 12:27 Blood - Peripheral Venous Blood Culture - Final NO GROWTH AFTER 5 DAYS INCUBATION 04/28/18 12:46 Blood - Peripheral Venous Blood Culture - Final NO GROWTH AFTER 5 DAYS INCUBATION 04/23/18 12:52 Blood - Peripheral Venous Blood Culture - Final NO GROWTH AFTER 5 DAYS INCUBATION 04/24/18 18:00 Sputum - Endotrachea Suction/Ventilator Gram Stain - Final 04/24/18 18:00 Sputum - Endotrachea Suction/Ventilator Sputum Culture - Final Enterobacter Aerogenes 04/26/18 10:00 Urine - Urine Bowling Legionella Antigen - Final 04/26/18 10:00 Urine - Urine Bowling Streptococcus pneumoniae Antigen (M - Final 04/23/18 13:00 Urine - Urine Clean Catch Urine Culture - Final NO GROWTH OBTAINED moderate to severe MR on LUBNA- no vegetation a/p FUO respiratory failure-now re intubated- ?bibasilar pneumonia vs CHF- sputum culture, blood cultures, resume meropenem, prior sputum culture with enterobacter MRSA bacteremia-day #42 MRSA treatment plan total 42 days-d/c vancomycin LUBNA no vegetations-severe mitral regurgitation thrombocytopenia-s/p platelet transfusion endstage COPD afib with RVR apical lung mass suspect transient campylobacter gracilis bacteremia- one bottle-, repeat blood cultures negative now with gram negative bacteremia-roseomonas!- will continue meropenem- repeat blood cultures sent will d/w microbiology if they can do sensitivities d/w Dr Yang clinically do not suspect pneumonia overall prognosis is guarded d/w at bedside for possible transfer to [place] overall prognosis is poor Problem List - Problems (1) Sepsis Code(s): A41.9 - SEPSIS, UNSPECIFIED ORGANISM (2) Epistaxis, recurrent Code(s): R04.0 - EPISTAXIS (3) MRSA bacteremia Code(s): R78.81 - BACTEREMIA
[2018-05-11] MEDS ORDERED: HEMOQUE TEST 1 EACH EACH ONE (21:28)
[2018-05-11] MEDS: CHLORHEXIDINE GLUCONATE 4% CLEANSER FOR DECOLONIZATION TP SCH (21:32)
[2018-05-11] MEDS: ATORVASTATIN CA 10 MG TABLET (FP) NGT SCH (21:32)
[2018-05-11] MEDS ORDERED: LORazepam 2 MG/ML SDV VIAL ONE (23:32)
[2018-05-11] MEDS: LORazepam 2 MG/ML SDV VIAL IVPUSH PRN (23:44)
[2018-05-12] MEDS: MEROPENEM 1 GM in DEXTROSE 5%-WATER 100 ML IVPB SCH ×3 (01:58→18:01)
[2018-05-12 06:06] LABS: BASO % 0.1 % (0-2.0); EOS % 0.2 % (0-4.5); HEMATOCRIT 20.4 % (35.4-49); LYMPH % 2.8 % (8-40); MCH 29.3 pg (25.7-33.7); MCHC 32.1 g/dl (32.0-35.9); MEAN CELL VOLUME 91.3 fl (80-96); MEAN PLT VOLUME 10.1 fl (7.5-11.1); NEUT % 94.9 % (42.8-82.8); PLATELET COUNT 49 K/MM3 (134-434); RBC 2.23 M/mm3 (4.00-5.60); RDW 16.3 % (11.9-15.9); WHITE BLOOD COUNT 4.4 K/mm3 (4.0-10.0)
[2018-05-12 06:14] LABS: ARTERIAL BLD GAS O2 SATURATION 98.8 % (90-98.9); ARTERIAL BLOOD GAS BASE EXCESS 13.5 meq/l (-2-2); ARTERIAL BLOOD GAS PCO2 54.9 mmHg (35-45); ARTERIAL BLOOD GAS pH 7.46 (7.35-7.45)
[2018-05-12 06:15] LABS: ALLENS TEST POSITIVE
[2018-05-12 06:20] LABS: INR 1.03 (0.83-1.09); PROTHROMBIN TIME (PATIENT) 12.1 SEC (9.7-13.0)
[2018-05-12 06:21] LABS: ACTIVATED PTT 29.2 SECONDS (25.2-36.5)
[2018-05-12 06:31] LABS: ALBUMIN 1.7 g/dl (3.4-5.0); ALK PHOS 150 U/L (45-117); ANION GAP 3 MMOL/L (8-16); BILIRUBIN,TOTAL 0.7 mg/dL (0.2-1); BLOOD UREA NITROGEN 38 mg/dL (7-18); CALCIUM 7.7 mg/dL (8.5-10.1); CHLORIDE 103 mmol/L (98-107); CO2 40 mmol/L (21-32); CREATININE 0.6 mg/dL (0.55-1.3); GLUCOSE,RANDOM 138 mg/dL (74-106); MAGNESIUM 2.2 mg/dL (1.8-2.4); PHOSPHOROUS 1.8 mg/dL (2.5-4.9); SGOT/AST 19 U/L (15-37); SGPT/ALT 34 U/L (13-61); SODIUM 145 mmol/L (136-145); TOT PROT 4.4 g/dl (6.4-8.2)
[2018-05-12] MEDS: dilTIAZem HCL 30 MG TABLET (FP) PO SCH ×3 (06:43→23:02)
[2018-05-12] MEDS: INSULIN SLIDING SCALE (NOVOLOG) 1 VIAL SQ SCH ×4 (06:43→22:11)
[2018-05-12] MEDS: LORazepam 2 MG/ML SDV VIAL IVPUSH PRN (08:09)
[2018-05-12] MEDS: ALBUTEROL SO4 2.5/IPRATROPIUM 0.5 INH SOL 3 ML VIAL.NEB. NEB SCH ×3 (08:34→21:00)
--- NOTE | 2018-05-12 09:45 | PN ---
Progress Note, Physician - Current Medication List Current Medications: Active Medications Acetaminophen (Tylenol -) 650 mg PO Q6H PRN PRN Reason: FEVER Last Admin: 05/08/18 19:45 Dose: 650 mg Albuterol/Ipratropium (Duoneb -) 1 amp NEB RTID [facility] Last Admin: 05/12/18 08:34 Dose: 1 amp Alprazolam (Xanax -) 0.25 mg PO Q6H PRN PRN Reason: ANXIETY Last Admin: 05/11/18 19:13 Dose: 0.25 mg Amino Acids (Prosource No Carb Liquid Pkt) 30 ml PO DAILY [facility] Last Admin: 05/11/18 09:41 Dose: 30 ml Atorvastatin Calcium (Lipitor -) 10 mg NGT HS [facility] Last Admin: 05/11/18 21:32 Dose: 10 mg Chlorhexidine Gluconate (Hibiclens For Decolonization -) 1 applic TP HS [facility] Last Admin: 05/11/18 21:32 Dose: 1 applic Chlorhexidine Gluconate (Peridex -) 15 ml MM BID [facility] Last Admin: 05/11/18 21:32 Dose: 15 ml Diltiazem HCl (Cardizem -) 30 mg PO TID [facility] Last Admin: 05/12/18 06:43 Dose: 30 mg Escitalopram Oxalate (Lexapro -) 20 mg PO DAILY [facility] Last Admin: 05/11/18 09:41 Dose: 20 mg Famotidine/Sodium Chloride (Pepcid 20 Mg Premixed Ivpb -) 20 mg in 50 mls @ 100 mls/hr IVPB BID [facility] Last Admin: 05/11/18 21:32 Dose: 100 mls/hr Meropenem 1 gm/ Dextrose 100 mls @ 200 mls/hr IVPB Q8H-IV [facility] Last Admin: 05/12/18 01:58 Dose: 200 mls/hr Insulin Aspart (Novolog Vial Sliding Scale -) 1 vial SQ ACHS [facility]; Protocol Last Admin: 05/12/18 06:43 Dose: 2 units Methylprednisolone Sodium Succinate (Solu-Medrol -) 40 mg IVPUSH DAILY [facility] Metoprolol Tartrate (Lopressor Injection -) 5 mg IVPUSH Q4H PRN PRN Reason: TACHYCARDIA Last Admin: 05/08/18 04:00 Dose: 5 mg Potassium Chloride (Potassium Chloride Oral Liquid) 40 meq NGT BID [facility] Last Admin: 05/11/18 21:32 Dose: 40 meq Potassium Phos/Sodium Phos (Phos-Nak Packet -) 1 packet PO DAILY [facility] Last Admin: 05/11/18 09:41 Dose: 1 packet Sodium Chloride ([place] Nasal [place] -) 2 spray NS BID PRN PRN Reason: NASAL CONGESTION - Objective Vital Signs: Vital Signs Temperature 97.9 F 05/12/18 06:00 Pulse Rate 97 H 05/12/18 08:33 Respiratory Rate 20 05/12/18 08:33 Blood Pressure 109/54 L 05/12/18 06:00 O2 Sat by Pulse Oximetry (%) 100 05/12/18 08:33 Cardiovascular: Yes: S1, S2 Respiratory: Yes: Mechanically Ventilated Gastrointestinal: Yes: Normal Bowel Sounds, Soft Labs: CBC, BMP 05/12/18 05:30 05/12/18 05:30 INR, PTT INR 1.03 (0.83-1.09) 05/12/18 05:30 Fibrinogen 447.0 mg/dL (238-498) 05/12/18 05:30 Problem List - Problems (1) Acute and chronic respiratory failure with hypercapnia Code(s): J96.22 - ACUTE AND CHRONIC RESPIRATORY FAILURE WITH HYPERCAPNIA (2) Anemia Code(s): D64.9 - ANEMIA, UNSPECIFIED Qualifiers: Anemia type: unspecified type Qualified Code(s): D64.9 - Anemia, unspecified (3) COPD (chronic obstructive pulmonary disease) Code(s): J44.9 - CHRONIC OBSTRUCTIVE PULMONARY DISEASE, UNSPECIFIED Qualifiers: COPD type: unspecified COPD Qualified Code(s): J44.9 - Chronic obstructive pulmonary disease, unspecified (4) MRSA bacteremia Code(s): R78.81 - BACTEREMIA (5) Nasal hemorrhage Code(s): R04.0 - EPISTAXIS (6) Afib Code(s): I48.91 - UNSPECIFIED ATRIAL FIBRILLATION (7) Thrombocytopenia Code(s): D69.6 - THROMBOCYTOPENIA, UNSPECIFIED Assessment/Plan - Problems (1) Fever Assessment/Plan: isolation for MRSA Microbiology 04/28/18 12:46 Blood - Peripheral Venous Blood Culture - Final NO GROWTH AFTER 5 DAYS INCUBATION 04/28/18 12:27 Blood - Peripheral Venous Blood Culture - Final NO GROWTH AFTER 5 DAYS INCUBATION 04/26/18 10:00 Urine - Urine Bowling Legionella Antigen - Final 04/26/18 10:00 Urine - Urine Bowling Streptococcus pneumoniae Antigen (M - Final Microbiology 05/06/18 17:00 Blood - Peripheral Venous Blood Culture - Final Roseomonas Species 05/06/18 16:00 Sputum - Endotrachea Suction/Ventilator Gram Stain - Final 05/06/18 16:00 Sputum - Endotrachea Suction/Ventilator Sputum Culture - Final Stenotrophomon.(X.)Maltophilia Enterobacter Aerogenes Yeast Like Organism continue meropenem Code(s): R50.9 - FEVER, UNSPECIFIED (2) Hypotension Assessment/Plan: improved Code(s): I95.9 - HYPOTENSION, UNSPECIFIED Qualifiers: Hypotension type: other hypotension type Qualified Code(s): I95.89 - Other hypotension (3) Nasal hemorrhage Assessment/Plan: improved Code(s): R04.0 - EPISTAXIS (4) Anxiety Assessment/Plan: xanax lexapro 20mg Code(s): F41.9 - ANXIETY DISORDER, UNSPECIFIED (5) COPD (chronic obstructive pulmonary disease) Assessment/Plan: in icu now intubated --trial of weaning--WILL DISCUSS TRACH WITH FAMILY iv steroids bronchodilators Code(s): J44.9 - CHRONIC OBSTRUCTIVE PULMONARY DISEASE, UNSPECIFIED Qualifiers: COPD type: unspecified COPD Qualified Code(s): J44.9 - Chronic obstructive pulmonary disease, unspecified (6) Anemia await labs will need prbc (7) MRSA bacteremia Assessment/Plan: on contact isolation iv abx day 38 of 42 iv vanco LUBNA done no vegetations noted Code(s): R78.81 - BACTEREMIA (8) Paroxysmal A-fib Assessment/Plan: icu monitoring cardizem and lopressor IV amiodarone for rhytm control lovenox Code(s): I48.0 - PAROXYSMAL ATRIAL FIBRILLATION (9) Thrombocytopnia Assessment/Plan: hem on bottle caser
[2018-05-12 09:55] LABS: ANISOCYTOSIS 0; MACROCYTOSIS 0; PLATELET ESTIMATE DECREASED
[2018-05-12 10:46] LABS: ACANTHOCYTES 0; HELMET CELLS 0; HOWELL-JOLLY BODIES 0; OVALOCYTE 0; ROULEAU 0; SICKELED CELLS 0; TARGET CELLS 0; TEAR DROP CELLS 0; TOXIC GRANULATION 0
[2018-05-12] MEDS ORDERED: PT OWN MED DRAWER 7, Y5N ONE (10:47)
[2018-05-12] MEDS: methylPREDNISolone NA SUCC 40 MG/1 ML VIAL IVPUSH SCH (10:49)
[2018-05-12] MEDS: ESCITALOPRAM OXALATE 20 MG TABLET (FP) PO SCH (10:49)
[2018-05-12] MEDS: AMINO ACIDS/PROTEIN HYDROLYS 30 ML LIQUID.PKT PO SCH (10:49)
[2018-05-12] MEDS: NAPH,MB-DB/K PH,MBDB POWDER PACKET PO SCH (10:49)
[2018-05-12] MEDS: FAMOTIDINE 20 MG/50 ML IVPB 20 MG/50 ML MG IVPB SCH ×2 (10:49→22:11)
[2018-05-12] MEDS: POTASSIUM CHLORIDE ORAL LIQUID 20 MEQ/15 ML NGT SCH ×3 (10:50→23:03)
[2018-05-12] MEDS: CHLORHEXIDINE GLUCONATE 0.12% 15ML CUP MM SCH ×2 (10:50→22:11)
--- NOTE | 2018-05-12 11:06 | PN ---
Teaching Attending Note Name of Resident: Candida Parnell ATTENDING PHYSICIAN STATEMENT I saw and evaluated the patient. I reviewed the resident's note and discussed the case with the resident. I agree with the resident's findings and plan as documented. SUBJECTIVE: Pt seen and examined in the ICU. Remains intubated, more sedated this AM after ativan. OBJECTIVE: Vital Signs Period Temp Pulse Resp BP Sys/Morgan Pulse Ox Last 24 Hr 97.4 F-98 F 63-102 12-28 88-135/50-69 98-100 Intake & Output 05/09/18 05/10/18 05/11/18 05/12/18 23:59 23:59 23:59 23:59 Intake Total 2090 2466 2070 360 Output Total 1375 1950 1200 400 Balance 715 516 870 -40 Weight 66 kg 66.905 kg 67.9 kg 65.1 kg Gen: intubated, sedated Heart: RRR Lung: decreased breath sounds at the bases Abd: soft, nontender Ext: + edema CBC, BMP 05/12/18 05:30 05/12/18 05:30 Active Medications Acetaminophen (Tylenol -) 650 mg PO Q6H PRN PRN Reason: FEVER Last Admin: 05/08/18 19:45 Dose: 650 mg Albuterol/Ipratropium (Duoneb -) 1 amp NEB RTID [facility] Last Admin: 05/12/18 08:34 Dose: 1 amp Alprazolam (Xanax -) 0.25 mg PO Q6H PRN PRN Reason: ANXIETY Last Admin: 05/11/18 19:13 Dose: 0.25 mg Amino Acids (Prosource No Carb Liquid Pkt) 30 ml PO DAILY [facility] Last Admin: 05/12/18 10:49 Dose: 30 ml Atorvastatin Calcium (Lipitor -) 10 mg NGT HS [facility] Last Admin: 05/11/18 21:32 Dose: 10 mg Chlorhexidine Gluconate (Hibiclens For Decolonization -) 1 applic TP HS [facility] Last Admin: 05/11/18 21:32 Dose: 1 applic Chlorhexidine Gluconate (Peridex -) 15 ml MM BID [facility] Last Admin: 05/12/18 10:50 Dose: 15 ml Diltiazem HCl (Cardizem -) 30 mg PO TID [facility] Last Admin: 05/12/18 06:43 Dose: 30 mg Escitalopram Oxalate (Lexapro -) 20 mg PO DAILY [facility] Last Admin: 05/12/18 10:49 Dose: 20 mg Famotidine/Sodium Chloride (Pepcid 20 Mg Premixed Ivpb -) 20 mg in 50 mls @ 100 mls/hr IVPB BID [facility] Last Admin: 05/12/18 10:49 Dose: 100 mls/hr Meropenem 1 gm/ Dextrose 100 mls @ 200 mls/hr IVPB Q8H-IV TA Last Admin: 05/12/18 10:49 Dose: 200 mls/hr Insulin Aspart (Novolog Vial Sliding Scale -) 1 vial SQ ACHS [facility]; Protocol Last Admin: 05/12/18 06:43 Dose: 2 units Methylprednisolone Sodium Succinate (Solu-Medrol -) 40 mg IVPUSH DAILY [facility] Last Admin: 05/12/18 10:49 Dose: 40 mg Metoprolol Tartrate (Lopressor Injection -) 5 mg IVPUSH Q4H PRN PRN Reason: TACHYCARDIA Last Admin: 05/08/18 04:00 Dose: 5 mg Potassium Chloride (Potassium Chloride Oral Liquid) 40 meq NGT BID [facility] Last Admin: 05/12/18 10:50 Dose: 40 meq Potassium Phos/Sodium Phos (Phos-Nak Packet -) 1 packet PO DAILY [facility] Last Admin: 05/12/18 10:49 Dose: 1 packet Sodium Chloride ([place] Lizella Nasal Lizella -) 2 spray NS BID PRN PRN Reason: NASAL CONGESTION ASSESSMENT AND PLAN: Acute on Chronic Hypoxic and Hypercapneic Respiratory Failure Bacteremia Septic Shock improving Lactic Acidosis resolved Acute on Chronic Diastolic Heart Failure Severe Mitral Regurgitation Thrombocytopenia CAD Acute COPD Exacerbation Lung Mass Pulmonary HTN Paroxysmal Atrial Fibrillation with RVR HTN Hypercholesterolemia - continue antibiotics per ID - off pressors, maintain MAP >65 - monitor urine output, creatinine - monitor CBC - holding anticoagulation due to thrombocytopenia - rate control - taper medrol - inhaled bronchodilators - O2 to keep SpO2 >90% - lasix today if BP tolerates - enteral feeds - spontaneous breathing trials as tolerated but will likely need tracheostomy for repeated intubations - DVT/GI prophylaxis - for transfer to tertiary care center for lung biopsy critical care time spent in reviewing chart, evaluating patient and formulating plan 35 min
--- NOTE | 2018-05-12 12:10 | PN ---
Progress Note, Physician History of Present Illness: Remains sedated and intubated remains in NSR. Afebrile. - Current Medication List Current Medications: Active Medications Acetaminophen (Tylenol -) 650 mg PO Q6H PRN PRN Reason: FEVER Last Admin: 05/08/18 19:45 Dose: 650 mg Albuterol/Ipratropium (Duoneb -) 1 amp NEB RTID [facility] Last Admin: 05/12/18 08:34 Dose: 1 amp Alprazolam (Xanax -) 0.25 mg PO Q6H PRN PRN Reason: ANXIETY Last Admin: 05/11/18 19:13 Dose: 0.25 mg Amino Acids (Prosource No Carb Liquid Pkt) 30 ml PO DAILY [facility] Last Admin: 05/12/18 10:49 Dose: 30 ml Atorvastatin Calcium (Lipitor -) 10 mg NGT HS [facility] Last Admin: 05/11/18 21:32 Dose: 10 mg Chlorhexidine Gluconate (Hibiclens For Decolonization -) 1 applic TP HS [facility] Last Admin: 05/11/18 21:32 Dose: 1 applic Chlorhexidine Gluconate (Peridex -) 15 ml MM BID [facility] Last Admin: 05/12/18 10:50 Dose: 15 ml Diltiazem HCl (Cardizem -) 30 mg PO TID [facility] Last Admin: 05/12/18 06:43 Dose: 30 mg Escitalopram Oxalate (Lexapro -) 20 mg PO DAILY [facility] Last Admin: 05/12/18 10:49 Dose: 20 mg Famotidine/Sodium Chloride (Pepcid 20 Mg Premixed Ivpb -) 20 mg in 50 mls @ 100 mls/hr IVPB BID [facility] Last Admin: 05/12/18 10:49 Dose: 100 mls/hr Meropenem 1 gm/ Dextrose 100 mls @ 200 mls/hr IVPB Q8H-IV [facility] Last Admin: 05/12/18 10:49 Dose: 200 mls/hr Insulin Aspart (Novolog Vial Sliding Scale -) 1 vial SQ ACHS [facility]; Protocol Last Admin: 05/12/18 06:43 Dose: 2 units Methylprednisolone Sodium Succinate (Solu-Medrol -) 40 mg IVPUSH DAILY [facility] Last Admin: 05/12/18 10:49 Dose: 40 mg Metoprolol Tartrate (Lopressor Injection -) 5 mg IVPUSH Q4H PRN PRN Reason: TACHYCARDIA Last Admin: 05/08/18 04:00 Dose: 5 mg Potassium Chloride (Potassium Chloride Oral Liquid) 40 meq NGT BID [facility] Last Admin: 05/12/18 10:50 Dose: 40 meq Potassium Phos/Sodium Phos (Phos-Nak Packet -) 1 packet PO DAILY [facility] Last Admin: 05/12/18 10:49 Dose: 1 packet Sodium Chloride ([place] Nasal [place] -) 2 spray NS BID PRN PRN Reason: NASAL CONGESTION - Objective Vital Signs: Vital Signs Temperature 97.8 F 05/12/18 10:00 Pulse Rate 63 05/12/18 10:00 Respiratory Rate 19 05/12/18 11:31 Blood Pressure 88/51 L 05/12/18 10:00 O2 Sat by Pulse Oximetry (%) 100 05/12/18 08:33 Constitutional: Yes: No Distress, Calm, Thin Neck: Yes: Supple Cardiovascular: Yes: Regular Rate and Rhythm Respiratory: Yes: Intubated, Mechanically Ventilated, Rhonchi Gastrointestinal: Yes: Normal Bowel Sounds, Soft Edema: Yes Edema: LLE: Trace, RLE: Trace Labs: CBC, BMP 05/12/18 05:30 05/12/18 05:30 INR, PTT INR 1.03 (0.83-1.09) 05/12/18 05:30 Fibrinogen 447.0 mg/dL (238-498) 05/12/18 05:30 - ....Imaging Chest X-ray: Report Reviewed (RUL mass, developing RML infiltrate) Problem List - Problems (1) Hypotension Code(s): I95.9 - HYPOTENSION, UNSPECIFIED Qualifiers: Hypotension type: other hypotension type Qualified Code(s): I95.89 - Other hypotension (2) Acute and chronic respiratory failure with hypercapnia Code(s): J96.22 - ACUTE AND CHRONIC RESPIRATORY FAILURE WITH HYPERCAPNIA (3) Anemia Code(s): D64.9 - ANEMIA, UNSPECIFIED Qualifiers: Anemia type: unspecified type Qualified Code(s): D64.9 - Anemia, unspecified (4) COPD (chronic obstructive pulmonary disease) Code(s): J44.9 - CHRONIC OBSTRUCTIVE PULMONARY DISEASE, UNSPECIFIED Qualifiers: COPD type: unspecified COPD Qualified Code(s): J44.9 - Chronic obstructive pulmonary disease, unspecified (5) Diastolic dysfunction Code(s): I51.9 - HEART DISEASE, UNSPECIFIED (6) Epistaxis, recurrent Code(s): R04.0 - EPISTAXIS (7) Hyperlipidemia Code(s): E78.5 - HYPERLIPIDEMIA, UNSPECIFIED Qualifiers: Hyperlipidemia type: pure hypercholesterolemia Qualified Code(s): E78.00 - Pure hypercholesterolemia, unspecified; E78.0 - Pure hypercholesterolemia (8) Hyperthyroidism Code(s): E05.90 - THYROTOXICOSIS, UNSP WITHOUT THYROTOXIC CRISIS OR STORM (9) Paroxysmal A-fib Code(s): I48.0 - PAROXYSMAL ATRIAL FIBRILLATION (10) Mitral valve anterior leaflet prolapse Code(s): I34.1 - NONRHEUMATIC MITRAL (VALVE) PROLAPSE (11) Moderate to severe mitral regurgitation Code(s): I34.0 - NONRHEUMATIC MITRAL (VALVE) INSUFFICIENCY Assessment/Plan 04/27/2018 Moderate to severe MR with posteriorly directed eccentric jet due to anterior mitral valve prolapse, mild TR and normal LV systolic function. There were no vegetations. Small pericardial effusion may be seen 1. Acute on Chronic Hypoxic Respiratory Failure referable to 2. Probable aspiration pneumonia 3. Chronic class I-II NYHA classification LV failure related to diastolic LV dysfunction, clinically euvolemic/compensated 4. Mitral valve prolapse with mod-severe MR 5. CAD non-obstructive coronary artery disease angina pectoris 6. Sepsis syndrome, history of MRSA bacteremia of unclear source with splenic infarct post 42 days of Vanco, with repeat abnormal blood cultures/Roseomonas Species 7. Paroxysmal atrial fibrillation with [id number] score of 2 was on A/C with DOAC's/Eliquis (A/C withheld related to thrombocytopenia), recurrent arrhythmia resolved 8. Advanced chronic obstructive pulmonary disease on home oxygen therapy with Pulmonary HTN 9. Epistaxis, recurrent resolved 10. Anemia/thrombocytopenia 11. HTN, history 12. Hypercholesterolemia 13. History of Atypical Mycobacterium, RUL mass PLAN: 1. Continue Cardizem 30 tid and Lipitor 10 qhs, hemodynamics permitting 2. Continue Lopressor 5 IV q4 as needed for rate-control 3. Recommend resumption of A/C with Eliquis, provided hemostasis is maintained and platelet counts remain stable, unless it is absolutely contraindicated 4. As outlined in prior notes if recurrent arrhythmia may consider antiarrhythmics/Amiodarone 5. Monitor Hg and transfuse as needed to maintain Hg equal or > 8.0 6. Continue antibiotics course as per ID service/primary team with monitor surveillance cultures 7. BD, vent wean as tolerated, IV steroid taper with GI protection 8. Await transfer to [facility] [place] for lung biopsy and further management 9. Eventually patient will require intervention for the above noted mitral valve pathology/MVR and or repair
[2018-05-12 14:03] LABS: HEMOGLOBIN 6.5 GM/dL (11.7-16.9)
--- NOTE | 2018-05-12 14:04 | PN ---
Progress Note (short form) - Note Progress Note: remains intubated alert no pressors oxygenation unchanged resting comfortably Vital Signs Period Temp Pulse Resp BP Sys/Morgan Pulse Ox Last 24 Hr 97.4 F-98 F 63-102 12-28 88-135/50-69 98-100 cor-rrr lungs decreased bs at bases abd soft,nt ext ecchymoses both arms no central lines CBC, BMP 05/12/18 05:30 05/12/18 05:30 Microbiology 05/06/18 19:19 Blood - Peripheral Venous Blood Culture - Final NO GROWTH AFTER 5 DAYS INCUBATION 05/10/18 16:55 Blood - Peripheral Venous Blood Culture - Preliminary NO GROWTH OBTAINED AFTER 24 HOURS, INCUBATION TO CONTINUE FOR 4 DAYS. 05/10/18 15:45 Blood - Peripheral Venous Blood Culture - Preliminary NO GROWTH OBTAINED AFTER 24 HOURS, INCUBATION TO CONTINUE FOR 4 DAYS. 05/10/18 01:20 Stool Clostridium difficile Antigen (MANSI) - Final 05/10/18 01:20 Stool Clostridium difficile Toxin Assay - Final 05/06/18 16:00 Sputum - Endotrachea Suction/Ventilator Gram Stain - Final 05/06/18 16:00 Sputum - Endotrachea Suction/Ventilator Sputum Culture - Final Stenotrophomon.(X.)Maltophilia Enterobacter Aerogenes Yeast Like Organism 05/06/18 17:00 Blood - Peripheral Venous Blood Culture - Final Roseomonas Species 04/23/18 11:30 Blood - Peripheral Venous Blood Culture - Final Campylobacter Gracilis 04/28/18 12:27 Blood - Peripheral Venous Blood Culture - Final NO GROWTH AFTER 5 DAYS INCUBATION 04/28/18 12:46 Blood - Peripheral Venous Blood Culture - Final NO GROWTH AFTER 5 DAYS INCUBATION 04/23/18 12:52 Blood - Peripheral Venous Blood Culture - Final NO GROWTH AFTER 5 DAYS INCUBATION 04/24/18 18:00 Sputum - Endotrachea Suction/Ventilator Gram Stain - Final 04/24/18 18:00 Sputum - Endotrachea Suction/Ventilator Sputum Culture - Final Enterobacter Aerogenes 04/26/18 10:00 Urine - Urine Bowling Legionella Antigen - Final 04/26/18 10:00 Urine - Urine Bowling Streptococcus pneumoniae Antigen (M - Final 04/23/18 13:00 Urine - Urine Clean Catch Urine Culture - Final NO GROWTH OBTAINED cxray unchanged moderate to severe MR on LUBNA- no vegetation a/p FUO respiratory failure-now re intubated- LUBNA no vegetations-severe mitral regurgitation-has completed 42 days of vancomycin for MRSA bacteremia thrombocytopenia-s/p platelet transfusion endstage COPD afib with RVR apical lung mass 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
[2018-05-12 14:39] VITALS: BMI 20.5
--- NOTE | 2018-05-12 15:13 | PN ---
Physical Exam: SUBJECTIVE: Patient seen and examined sedated but intubated OBJECTIVE: Vital Signs Period Temp Pulse Resp BP Sys/Morgan Pulse Ox Last 24 Hr 97.4 F-98 F 63-102 12-28 88-135/50-69 98-100 ] GENERAL: The patient is sedated, intubated HEAD: Normal with no signs of trauma. EYES: PERRLA, extraocular movements intact, sclera anicteric, conjunctiva clear. No ptosis. ENT: moist mucous membranes. NECK: Trachea midline LUNGS: slightly coarse breath sounds bilaterally, no wheezes, no crackles, no accessory muscle use. HEART: Regular rate and rhythm, S1, S2 without murmur, rub or gallop. ABDOMEN: Soft, nontender, nondistended, no guarding, no rebound, no hepatosplenomegaly, no masses. EXTREMITIES: 2+ pulses, warm, well-perfused, no edema. NEUROLOGICAL: intubated SKIN: Warm, dry, normal turgor, no rashes or lesions noted Laboratory Results - last 24 hr 05/08/18 05/11/18 05/11/18 08:20 16:54 21:39 WBC RBC Hgb Hct MCV MCH MCHC RDW Plt Count MPV Absolute Neuts (auto) Neutrophils % Neutrophils % (Manual) Band Neutrophils % Lymphocytes % Lymphocytes % (Manual) Monocytes % Monocytes % (Manual) Eosinophils % Eosinophils % (Manual) Basophils % Basophils % (Manual) Myelocytes % (Man) Promyelocytes % (Man) Blast Cells % (Manual) Nucleated RBC % Metamyelocytes Hypochromia Toxic Granulation Dohle Bodies Platelet Estimate Polychromasia Poikilocytosis Basophilic Stippling Anisocytosis Microcytosis Macrocytosis Spherocytes Sickle Cells Target Cells Tear Drop Cells Ovalocytes Stomatocytes Helmet Cells [place] Bodies Gays Rings [place] Cells Acanthocytes (Spur) Rouleaux Fragmented RBCs Schistocytes PT with INR INR PTT (Actin FS) Fibrinogen Puncture Site ABG pH ABG pCO2 at Pt Temp ABG pO2 at Pt Temp ABG HCO3 ABG O2 Sat (Measured) ABG O2 Content ABG Base Excess Pardeep Test O2 Delivery Device Oxygen Flow Rate Vent Mode Vent Rate Mechanical Rate PEEP Pressure Support Vent Sodium Potassium Chloride Carbon Dioxide Anion Gap BUN Creatinine Creat Clearance w eGFR POC Glucometer 226.29057 163.34688 Random Glucose Calcium Phosphorus Magnesium Total Bilirubin AST ALT Alkaline Phosphatase Total Protein Albumin Blood Type B POSITIVE Antibody Screen Negative Crossmatch See Detail 05/12/18 05/12/18 05/12/18 05:19 05:30 05:30 WBC 4.4 RBC 2.23 L Hgb 6.5 L* Hct 20.4 L D MCV 91.3 MCH 29.3 MCHC 32.1 RDW 16.3 H Plt Count 49 L D MPV 10.1 D Absolute Neuts (auto) 4.2 Neutrophils % 94.9 H Neutrophils % (Manual) 89.8 H Band Neutrophils % 8.2 Lymphocytes % 2.8 L D Lymphocytes % (Manual) 2.0 L D Monocytes % 2.0 L D Monocytes % (Manual) 0 L D Eosinophils % 0.2 D Eosinophils % (Manual) 0.0 Basophils % 0.1 Basophils % (Manual) 0.0 Myelocytes % (Man) 0 Promyelocytes % (Man) 0 Blast Cells % (Manual) 0 Nucleated RBC % 0 Metamyelocytes 0 Hypochromia 0 Toxic Granulation 0 Dohle Bodies 0 Platelet Estimate Decreased Polychromasia 0 Poikilocytosis 0 Basophilic Stippling 0 Anisocytosis 0 Microcytosis 0 Macrocytosis 0 Spherocytes 0 Sickle Cells 0 Target Cells 0 Tear Drop Cells 0 Ovalocytes 0 Stomatocytes 0 Helmet Cells 0 [place] Bodies 0 Gays Rings 0 [place] Cells 0 Acanthocytes (Spur) 0 Rouleaux 0 Fragmented RBCs 0 Schistocytes 0 PT with INR INR PTT (Actin FS) Fibrinogen Puncture Site ABG pH ABG pCO2 at Pt Temp ABG pO2 at Pt Temp ABG HCO3 ABG O2 Sat (Measured) ABG O2 Content ABG Base Excess Pardeep Test O2 Delivery Device Oxygen Flow Rate Vent Mode Vent Rate Mechanical Rate PEEP Pressure Support Vent Sodium 145 Potassium 5.0 Chloride 103 Carbon Dioxide 40 H Anion Gap 3 L BUN 38 H Creatinine 0.6 Creat Clearance w eGFR > 60 POC Glucometer 154.15950 Random Glucose 138 H Calcium 7.7 L Phosphorus 1.8 L Magnesium 2.2 Total Bilirubin 0.7 AST 19 ALT 34 Alkaline Phosphatase 150 H Total Protein 4.4 L Albumin 1.7 L Blood Type Antibody Screen Crossmatch 05/12/18 05/12/18 05/12/18 05:30 05:30 06:00 WBC RBC Hgb Hct MCV MCH MCHC RDW Plt Count MPV Absolute Neuts (auto) Neutrophils % Neutrophils % (Manual) Band Neutrophils % Lymphocytes % Lymphocytes % (Manual) Monocytes % Monocytes % (Manual) Eosinophils % Eosinophils % (Manual) Basophils % Basophils % (Manual) Myelocytes % (Man) Promyelocytes % (Man) Blast Cells % (Manual) Nucleated RBC % Metamyelocytes Hypochromia Toxic Granulation Dohle Bodies Platelet Estimate Polychromasia Poikilocytosis Basophilic Stippling Anisocytosis Microcytosis Macrocytosis Spherocytes Sickle Cells Target Cells Tear Drop Cells Ovalocytes Stomatocytes Helmet Cells [place] Bodies Gays Rings Buddy Cells Acanthocytes (Spur) Rouleaux Fragmented RBCs Schistocytes PT with INR 12.10 INR 1.03 PTT (Actin FS) 29.2 Fibrinogen 447.0 Puncture Site Right radial ABG pH 7.46 H ABG pCO2 at Pt Temp 54.9 H ABG pO2 at Pt Temp 119.0 H D ABG HCO3 38.6 H ABG O2 Sat (Measured) 98.8 ABG O2 Content 10.2 L ABG Base Excess 13.5 H Pardeep Test Positive O2 Delivery Device Mech vent Oxygen Flow Rate 45% Vent Mode A/c Vent Rate 12 Mechanical Rate Yes PEEP 5.0 Pressure Support Vent 500 Sodium Potassium Chloride Carbon Dioxide Anion Gap BUN Creatinine Creat Clearance w eGFR POC Glucometer Random Glucose Calcium Phosphorus Magnesium Total Bilirubin AST ALT Alkaline Phosphatase Total Protein Albumin Blood Type Antibody Screen Crossmatch 05/12/18 11:33 WBC RBC Hgb Hct MCV MCH MCHC RDW Plt Count MPV Absolute Neuts (auto) Neutrophils % Neutrophils % (Manual) Band Neutrophils % Lymphocytes % Lymphocytes % (Manual) Monocytes % Monocytes % (Manual) Eosinophils % Eosinophils % (Manual) Basophils % Basophils % (Manual) Myelocytes % (Man) Promyelocytes % (Man) Blast Cells % (Manual) Nucleated RBC % Metamyelocytes Hypochromia Toxic Granulation Dohle Bodies Platelet Estimate Polychromasia Poikilocytosis Basophilic Stippling Anisocytosis Microcytosis Macrocytosis Spherocytes Sickle Cells Target Cells Tear Drop Cells Ovalocytes Stomatocytes Helmet Cells [place] Bodies Gays Rings [place] Cells Acanthocytes (Spur) Rouleaux Fragmented RBCs Schistocytes PT with INR INR PTT (Actin FS) Fibrinogen Puncture Site ABG pH ABG pCO2 at Pt Temp ABG pO2 at Pt Temp ABG HCO3 ABG O2 Sat (Measured) ABG O2 Content ABG Base Excess Pardeep Test O2 Delivery Device Oxygen Flow Rate Vent Mode Vent Rate Mechanical Rate PEEP Pressure Support Vent Sodium Potassium Chloride Carbon Dioxide Anion Gap BUN Creatinine Creat Clearance w eGFR POC Glucometer 84.50331 Random Glucose Calcium Phosphorus Magnesium Total Bilirubin AST ALT Alkaline Phosphatase Total Protein Albumin Blood Type Antibody Screen Crossmatch Active Medications Generic Name Dose Route Start Last Admin Trade Name Freq PRN Reason Stop Dose Admin Acetaminophen 650 mg 04/23/18 13:40 05/08/18 19:45 Tylenol - PO 650 mg Q6H PRN Administration FEVER Albuterol/Ipratropium 1 amp 05/08/18 08:00 05/12/18 14:06 Duoneb - NEB 1 amp RTID TA Administration Alprazolam 0.25 mg 05/10/18 17:10 05/11/18 19:13 Xanax - PO 0.25 mg Q6H PRN Administration ANXIETY Amino Acids 30 ml 04/28/18 15:00 05/12/18 10:49 Prosource No Carb Liquid Pkt PO 30 ml DAILY TA Administration Atorvastatin Calcium 10 mg 05/11/18 22:00 05/11/18 21:32 Lipitor - NGT 10 mg HS TA Administration Chlorhexidine Gluconate 1 applic 04/23/18 22:00 05/11/18 21:32 Hibiclens For Decolonization - TP 1 applic HS TA Administration Chlorhexidine Gluconate 15 ml 04/25/18 22:00 05/12/18 10:50 Peridex - MM 15 ml BID TA Administration Diltiazem HCl 30 mg 05/06/18 22:00 05/12/18 15:01 Cardizem - PO Not Given TID TA Escitalopram Oxalate 20 mg 05/05/18 16:00 05/12/18 10:49 Lexapro - PO 20 mg DAILY TA Administration Famotidine/Sodium Chloride 20 mg in 50 mls @ 100 mls/hr 04/24/18 10:00 10:49 Pepcid 20 Mg Premixed Ivpb - IVPB 100 mls/hr BID TA Administration Meropenem 1 gm/ Dextrose 100 mls @ 200 mls/hr 05/06/18 18:00 05/12/18 10:49 IVPB 200 mls/hr Q8H-IV TA Administration Insulin Aspart 1 vial 04/24/18 11:00 05/12/18 13:43 Novolog Vial Sliding Scale - SQ Not Given ACHS TA Protocol Methylprednisolone Sodium Succinate 40 mg 05/12/18 10:00 05/12/18 10:49 Solu-Medrol - IVPUSH 40 mg DAILY TA Administration Metoprolol Tartrate 5 mg 04/27/18 14:35 05/08/18 04:00 Lopressor Injection - IVPUSH 5 mg Q4H PRN Administration TACHYCARDIA Potassium Chloride 40 meq 05/10/18 10:00 05/12/18 10:50 Potassium Chloride Oral Liquid NGT 40 meq BID TA Administration Potassium Phos/Sodium Phos 1 packet 05/02/18 10:00 05/12/18 10:49 Phos-Nak Packet - PO 1 packet DAILY TA Administration Sodium Chloride 2 spray 04/29/18 09:00 [place] Nasal [place] - NS BID PRN NASAL CONGESTION ASSESSMENT/PLAN: Patient is a 67 yo M with history of COPD on home oxygen (3L), Interstitial lung disease, HTN, HLD, CHF, diastolic LV dysfunction, LA, CAD, GERD, hiatal hernia, recent dx of Afib with RVR, presenting to the ER with a complaint of epistaxis, hypotension and tachycardia. Now admitted to ICU for septic shock. Pt was recently admitted for MRSA bacteremia ID Septic Shock -likely 2/2 urosepsis - ID following case - source of sepsis likely urine as UA: +leuk esterase, + wbc - blood and urine culture neg, sputum culture with gram negative bacilli - CT scan chest/abd/pelvis (04/25) : L upper air filled cavity in L upper chest , R upper fluid structure(possible abscess) - unchanged from 04/01 - Keep MAP> 65 - femoral line removed, picc line removed - on methylprednisone 40mg IVP daily, will continue to taper MRSA Bacteremia with suspicion of endocarditis, last admission - LUBNA completed (04/27) - LVEF 60-65%, moderate mitral valve prolapse, severe mitral regurgitation, mild tricuspid regurg, mild aortic regurg, mild aortic sclerosis, no vegetation - MRSA bacteremia- completed 42/42 days of abx treatment - antibiotics as per ID: meropenem for roseomonas - blood cultures sent on 05/06 - Roseomonas - repeat blood cultures sent 05/10 - no growth GI Loose stools - rectal tube placed - K stable - pending C.diff Heme Acute blood loss, normocytic anemia, likely 2/2 epistaxis - 05/12: Hb 8 --> 6.5 - transfuse 1 upRBCs, trend H/H - Tranfusion goal of Hb > 8 - nasal packing removed (04/27) w/o complications - ENT following (Dr. Clarke) - keep head end elevated Thrombocytopenia, baseline around 130-140 and since 03/02/18 has been decreasing to 80s, likely 2/2 sepsis and antibiotics. - 05/12: platelets 49 dropped from 68 yesterday - HIT Ab - negative - will discuss with heme - Heme consulted, following case, thrombocytopenia thought to be 2/2 MRSA bacteremia Epistaxis from the L nares (resolved) - L nasal packing done in ED, ENT consulted ENT recommends nasal packing until Thursday - nasal packing removed (04/27) w/o complications - nasal saline spray bid, observe for bleeding Cardiac Diastolic LV dysfunc, CHF, phx LA, CAD, Afib w/ RVR - Last ECHO (03/31/18) - normal EF, L ventricular function normal, severe MR, moderate TR - Tele monitoring - home dose lipitor - Trop: neg - cardizem TID, lopressor IVP - Cardiology following HTN - hypotensive 2/2 septic shock (resolved) Afib - hold Lovenox for AC due to abrupt drop in plt. f/u HIT AB - will restart AC when platelets > 70 - [id number] score of 3 Pulm COPD, uses 3L home oxygen continue 3L of oxygen, patient intubated - CXR daily - CXR: RUL fluid collection (possible abscess), LINDSEY air collection unchanged from 04/01/18 - Per ID: plan for biopsy/drainage of RUL collection when extubated - Ipratroprium neb - Intubated Ortho Bilateral femoral head avascular necrosis - noted on CT abd/pelvis (04/25) - Ortho following case, Dr. Baez - No orthopedic intervention 2/2 medical status F/E/N - NG tube feeds - Electrolytes trend - Sher cath PPX DVT: SCDs. AC held for thrombocytopenia, restart when platelets > 70 GI: pepcid BID Lines, Tubes: sher, PIV, ET tube, NG tube Code Status: full code Dispo: Pending transfer to [facility] ICU Visit type - Emergency Visit Emergency Visit: No - New Patient This patient is new to me today: No - Critical Care Critical Care patient: Yes Total Critical Care Time (in minutes): 35 Critical Care Statement: The care of this patient involved high complexity decision making to prevent further life threatening deterioration of the patient 's condition and/or to evaluate & treat vital organ system(s) failure or risk of failure.
[2018-05-12] MEDS ORDERED: ONDANSETRON 4 MG/2 ML VIAL IVPUSH PRN (15:24)
[2018-05-12 15:26] LABS: HEMATOCRIT 20.9 % (35.4-49); MCH 29.4 pg (25.7-33.7); MCHC 32.1 g/dl (32.0-35.9); MEAN CELL VOLUME 91.6 fl (80-96); MEAN PLT VOLUME 10.7 fl (7.5-11.1); PLATELET COUNT 57 K/MM3 (134-434); RBC 2.28 M/mm3 (4.00-5.60); RDW 16.5 % (11.9-15.9); WHITE BLOOD COUNT 5.1 K/mm3 (4.0-10.0)
[2018-05-12 15:29] LABS: HEMOGLOBIN 6.7 GM/dL (11.7-16.9)
--- NOTE | 2018-05-12 16:59 | PROC ---
Central Line Insertion Indication: Poor Venous Access, Sepsis, Vasopressor Risks and Benefits Explained: Yes Consent on Chart: Yes Central Line: Triple Lumen Catheter Anesthesia: 1% Lidocaine Sterile Technique: Yes Ultrasound Guided Assistance: Yes Position: Right Internal Jugular Post Insertion: Yes: Bilateral Breath Sounds, Bilateral Chest Expansion, Chest X-Ray Ordered Sterile Dressing Applied: Yes Remarks: R IJ central line placed. With lidocaine anesthetic, ultrasound guidance. CXR confirmation, auscultation No complications, sterile technique
[2018-05-12] MEDS ORDERED: MIDAZOLAM 100 MG/100 ML MG IVPB ONE (19:37)
[2018-05-12] MEDS ORDERED: fentaNYL CITRATE 250 MCG/5 ML VIAL ONE (19:37)
[2018-05-12] MEDS ORDERED: ACETAMINOPHEN 1000 MG/100 ML VIAL (NON FORMULARY) IVPB ONE (19:45)
[2018-05-12] MEDS: MIDAZOLAM 100 MG in SODIUM CHLORIDE 100 ML IVPB SCH ×2 (19:50→20:00)
[2018-05-12] MEDS ORDERED: FENTANYL INJECTION 500 MCG in DEXTROSE 5%-WATER - 90 ML IVPB SCH (20:00)
[2018-05-12 21:39] LABS: BASO % 0.1 % (0-2.0); HEMATOCRIT 19.5 % (35.4-49); LYMPH % 1.2 % (8-40); MCH 30.7 pg (25.7-33.7); MEAN CELL VOLUME 90.2 fl (80-96); NEUT % 97.7 % (42.8-82.8); PLATELET COUNT 64 K/MM3 (134-434); RBC 2.17 M/mm3 (4.00-5.60); RDW 16.1 % (11.9-15.9); WHITE BLOOD COUNT 6.5 K/mm3 (4.0-10.0)
[2018-05-12 21:46] LABS: HEMOGLOBIN 6.6 GM/dL (11.7-16.9)
[2018-05-12 21:47] LABS: ALBUMIN 1.7 g/dl (3.4-5.0); ALK PHOS 173 U/L (45-117); ANION GAP 3 MMOL/L (8-16); BILIRUBIN,TOTAL 0.7 mg/dL (0.2-1); BLOOD UREA NITROGEN 43 mg/dL (7-18); CHLORIDE 104 mmol/L (98-107); CO2 38 mmol/L (21-32); CREATININE 0.7 mg/dL (0.55-1.3); GLUCOSE,RANDOM 207 mg/dL (74-106); POTASSIUM 5.7 mmol/L (3.5-5.1); SGOT/AST 25 U/L (15-37); SGPT/ALT 43 U/L (13-61); SODIUM 145 mmol/L (136-145); TOT PROT 4.6 g/dl (6.4-8.2)
[2018-05-12] MEDS: CHLORHEXIDINE GLUCONATE 4% CLEANSER FOR DECOLONIZATION TP SCH (22:11)
[2018-05-12] MEDS: ATORVASTATIN CA 10 MG TABLET (FP) NGT SCH (22:11)
[2018-05-12 23:09] LABS: ANISOCYTOSIS 2+; MACROCYTOSIS 2+
[2018-05-12 23:10] LABS: PLATELET ESTIMATE DECREASED
[2018-05-13] MEDS ORDERED: PT OWN MED DRAWER 7, Y5N ONE (01:49)
[2018-05-13] MEDS: MEROPENEM 1 GM in DEXTROSE 5%-WATER 100 ML IVPB SCH ×2 (02:38→09:24)
[2018-05-13 05:57] LABS: BASO % 0.1 % (0-2.0); EOS % 0.1 % (0-4.5); HEMATOCRIT 25.1 % (35.4-49); HEMOGLOBIN 8.3 GM/dL (11.7-16.9); MCH 28.8 pg (25.7-33.7); MCHC 33.1 g/dl (32.0-35.9); MEAN CELL VOLUME 87.1 fl (80-96); MEAN PLT VOLUME 10.9 fl (7.5-11.1); MONO % 1.5 % (3.8-10.2); NEUT % 96.3 % (42.8-82.8); PLATELET COUNT 51 K/MM3 (134-434); RBC 2.88 M/mm3 (4.00-5.60); RDW 17.4 % (11.9-15.9)
[2018-05-13 05:59] LABS: ARTERIAL BLD GAS O2 SATURATION 98.3 % (90-98.9); ARTERIAL BLOOD GAS BASE EXCESS 11.4 meq/l (-2-2); ARTERIAL BLOOD GAS pH 7.39 (7.35-7.45)
[2018-05-13 06:00] LABS: ALLENS TEST POSITIVE; ARTERIAL BLOOD GAS PCO2 63.7 mmHg (35-45)
[2018-05-13] MEDS: INSULIN SLIDING SCALE (NOVOLOG) 1 VIAL SQ SCH (06:20)
[2018-05-13 06:24] LABS: ALBUMIN 1.6 g/dl (3.4-5.0); ALK PHOS 145 U/L (45-117); ANION GAP 4 MMOL/L (8-16); BILIRUBIN,TOTAL 0.7 mg/dL (0.2-1); BLOOD UREA NITROGEN 44 mg/dL (7-18); CALCIUM 7.8 mg/dL (8.5-10.1); CHLORIDE 105 mmol/L (98-107); CO2 38 mmol/L (21-32); CREATININE 0.7 mg/dL (0.55-1.3); GLUCOSE,RANDOM 153 mg/dL (74-106); MAGNESIUM 2.3 mg/dL (1.8-2.4); PHOSPHOROUS 3.1 mg/dL (2.5-4.9); POTASSIUM 5.2 mmol/L (3.5-5.1); SGOT/AST 15 U/L (15-37); SGPT/ALT 36 U/L (13-61); SODIUM 146 mmol/L (136-145); TOT PROT 4.2 g/dl (6.4-8.2)
[2018-05-13] MEDS: dilTIAZem HCL 30 MG TABLET (FP) PO SCH (06:30)
[2018-05-13 06:56] LABS: ANISOCYTOSIS 1+; PLATELET ESTIMATE DECREASED
--- NOTE | 2018-05-13 08:50 | PN ---
Progress Note, Physician - Current Medication List Current Medications: Active Medications Acetaminophen (Tylenol -) 650 mg PO Q6H PRN PRN Reason: FEVER Last Admin: 05/08/18 19:45 Dose: 650 mg Alprazolam (Xanax -) 0.25 mg PO Q6H PRN PRN Reason: ANXIETY Last Admin: 05/11/18 19:13 Dose: 0.25 mg Amino Acids (Prosource No Carb Liquid Pkt) 30 ml PO DAILY [facility] Last Admin: 05/12/18 10:49 Dose: 30 ml Atorvastatin Calcium (Lipitor -) 10 mg NGT HS [facility] Last Admin: 05/12/18 22:11 Dose: 10 mg Chlorhexidine Gluconate (Hibiclens For Decolonization -) 1 applic TP HS [facility] Last Admin: 05/12/18 22:11 Dose: 1 applic Chlorhexidine Gluconate (Peridex -) 15 ml MM BID [facility] Last Admin: 05/12/18 22:11 Dose: 15 ml Diltiazem HCl (Cardizem -) 30 mg PO TID [facility] Last Admin: 05/13/18 06:30 Dose: Not Given Escitalopram Oxalate (Lexapro -) 20 mg PO DAILY [facility] Last Admin: 05/12/18 10:49 Dose: 20 mg Famotidine/Sodium Chloride (Pepcid 20 Mg Premixed Ivpb -) 20 mg in 50 mls @ 100 mls/hr IVPB BID [facility] Last Admin: 05/12/18 22:11 Dose: 100 mls/hr Meropenem 1 gm/ Dextrose 100 mls @ 200 mls/hr IVPB Q8H-IV TA Last Admin: 05/13/18 02:38 Dose: 200 mls/hr Fentanyl 500 mcg/ Dextrose 100 mls @ 10 mls/hr IVPB TITR [facility]; Protocol Last Admin: 05/12/18 19:50 Dose: 25 mcg/hr, 5 mls/hr Midazolam HCl 100 mg/ Sodium (Chloride) 100 mls @ 1 mls/hr IVPB TITR [facility]; Protocol Last Admin: 05/12/18 20:00 Dose: 1 mg/hr, 1 mls/hr Insulin Aspart (Novolog Vial Sliding Scale -) 1 vial SQ ACHS [facility]; Protocol Last Admin: 05/13/18 06:20 Dose: 2 units Methylprednisolone Sodium Succinate (Solu-Medrol -) 40 mg IVPUSH DAILY [facility] Last Admin: 05/12/18 10:49 Dose: 40 mg Metoprolol Tartrate (Lopressor Injection -) 5 mg IVPUSH Q4H PRN PRN Reason: TACHYCARDIA Last Admin: 05/08/18 04:00 Dose: 5 mg Ondansetron HCl (Zofran Injection) 4 mg IVPUSH Q6H PRN PRN Reason: NAUSEA AND/OR VOMITING Potassium Chloride (Potassium Chloride Oral Liquid) 40 meq NGT BID [facility] Last Admin: 05/12/18 23:03 Dose: Not Given Potassium Phos/Sodium Phos (Phos-Nak Packet -) 1 packet PO DAILY [facility] Last Admin: 05/12/18 10:49 Dose: 1 packet Sodium Chloride ([place] Nasal [place] -) 2 spray NS BID PRN PRN Reason: NASAL CONGESTION - Objective Vital Signs: Vital Signs Temperature 97.9 F 05/13/18 06:00 Pulse Rate 122 H 05/13/18 08:00 Respiratory Rate 14 05/13/18 08:00 Blood Pressure 102/58 L 05/13/18 08:00 O2 Sat by Pulse Oximetry (%) 100 05/13/18 08:00 Cardiovascular: Yes: Tachycardia, S1, S2 Respiratory: Yes: Mechanically Ventilated Gastrointestinal: Yes: Normal Bowel Sounds, Soft Labs: CBC, BMP 05/13/18 05:30 05/13/18 05:30 INR, PTT INR 1.03 (0.83-1.09) 05/12/18 05:30 Fibrinogen 447.0 mg/dL (238-498) 05/12/18 05:30 Problem List - Problems (1) Acute and chronic respiratory failure with hypercapnia Code(s): J96.22 - ACUTE AND CHRONIC RESPIRATORY FAILURE WITH HYPERCAPNIA (2) Anemia Code(s): D64.9 - ANEMIA, UNSPECIFIED Qualifiers: Anemia type: unspecified type Qualified Code(s): D64.9 - Anemia, unspecified (3) COPD (chronic obstructive pulmonary disease) Code(s): J44.9 - CHRONIC OBSTRUCTIVE PULMONARY DISEASE, UNSPECIFIED Qualifiers: COPD type: unspecified COPD Qualified Code(s): J44.9 - Chronic obstructive pulmonary disease, unspecified (4) MRSA bacteremia Code(s): R78.81 - BACTEREMIA (5) Nasal hemorrhage Code(s): R04.0 - EPISTAXIS (6) Afib Code(s): I48.91 - UNSPECIFIED ATRIAL FIBRILLATION (7) Thrombocytopenia Code(s): D69.6 - THROMBOCYTOPENIA, UNSPECIFIED Assessment/Plan - Problems (1) Fever Assessment/Plan: isolation for MRSA Microbiology 04/28/18 12:46 Blood - Peripheral Venous Blood Culture - Final NO GROWTH AFTER 5 DAYS INCUBATION 04/28/18 12:27 Blood - Peripheral Venous Blood Culture - Final NO GROWTH AFTER 5 DAYS INCUBATION 04/26/18 10:00 Urine - Urine [place] Legionella Antigen - Final 04/26/18 10:00 Urine - Urine [place] Streptococcus pneumoniae Antigen (M - Final Microbiology 05/06/18 17:00 Blood - Peripheral Venous Blood Culture - Final Roseomonas Species 05/06/18 16:00 Sputum - Endotrachea Suction/Ventilator Gram Stain - Final 05/06/18 16:00 Sputum - Endotrachea Suction/Ventilator Sputum Culture - Final Stenotrophomon.(X.)Maltophilia Enterobacter Aerogenes Yeast Like Organism continue meropenem Code(s): R50.9 - FEVER, UNSPECIFIED (2) Hypotension Assessment/Plan: monitor on meds and after bloods Code(s): I95.9 - HYPOTENSION, UNSPECIFIED Qualifiers: Hypotension type: other hypotension type Qualified Code(s): I95.89 - Other hypotension (3) Nasal hemorrhage Assessment/Plan: improved Code(s): R04.0 - EPISTAXIS (4) Anxiety Assessment/Plan: xanax lexapro 20mg Code(s): F41.9 - ANXIETY DISORDER, UNSPECIFIED (5) COPD (chronic obstructive pulmonary disease) Assessment/Plan: in icu now intubated --trial of weaning--WILL DISCUSS TRACH WITH FAMILY iv steroids bronchodilators Code(s): J44.9 - CHRONIC OBSTRUCTIVE PULMONARY DISEASE, UNSPECIFIED Qualifiers: COPD type: unspecified COPD Qualified Code(s): J44.9 - Chronic obstructive pulmonary disease, unspecified (6) Anemia await labs s/p prbc (7) MRSA bacteremia Assessment/Plan: on contact isolation iv abx day 38 of iv vanco LUBNA done no vegetations noted Code(s): R78.81 - BACTEREMIA (8) Paroxysmal A-fib Assessment/Plan: icu monitoring cardizem and lopressor IV amiodarone for rhytm control lovenox Code(s): I48.0 - PAROXYSMAL ATRIAL FIBRILLATION (9) Thrombocytopnia Assessment/Plan: hem on bottle caser
[2018-05-13] MEDS ORDERED: SODIUM CHLORIDE 500 ML IV SCH (09:15)
[2018-05-13] MEDS: FAMOTIDINE 20 MG/50 ML IVPB 20 MG/50 ML MG IVPB SCH (09:24)
[2018-05-13] MEDS: METOPROLOL TARTRATE 5 MG/5 ML VIAL IVPUSH PRN (09:24)
[2018-05-13] MEDS: NAPH,MB-DB/K PH,MBDB POWDER PACKET PO SCH (09:25)
[2018-05-13] MEDS: ESCITALOPRAM OXALATE 20 MG TABLET (FP) PO SCH (09:26)
[2018-05-13] MEDS: AMINO ACIDS/PROTEIN HYDROLYS 30 ML LIQUID.PKT PO SCH (09:27)
[2018-05-13] MEDS: methylPREDNISolone NA SUCC 40 MG/1 ML VIAL IVPUSH SCH (09:45)
[2018-05-13 09:46] VITALS: TEMP 97.6
[2018-05-13] MEDS: CHLORHEXIDINE GLUCONATE 0.12% 15ML CUP MM SCH (09:46)
--- NOTE | 2018-05-13 11:20 | PN ---
Teaching Attending Note Name of Resident: Candida Parnell ATTENDING PHYSICIAN STATEMENT I saw and evaluated the patient. I reviewed the resident's note and discussed the case with the resident. I agree with the resident's findings and plan as documented. SUBJECTIVE: Pt seen and examined in the ICU. Remains intubated, sedated. Febrile yesterday. H/H responded appropriately to PRBC transfusions. OBJECTIVE: Vital Signs Period Temp Pulse Resp BP Sys/Morgan Pulse Ox Last 24 Hr 97.6 F-101 F 54-132 12-27 82-144/42-72 98-100 Intake & Output 05/10/18 05/11/18 05/12/18 05/13/18 23:59 23:59 23:59 23:59 Intake Total 2466 2070 1059 877 Output Total 1950 1200 1700 600 Balance 516 870 -641 277 Weight 66.905 kg 67.9 kg 65.1 kg 66 kg Gen: intubated, sedated Heart: tachycardic, irregular Lung: scattered rhonchi Abd: soft, nontender Ext: + edema CBC, BMP 05/13/18 05:30 05/13/18 05:30 Active Medications Acetaminophen (Tylenol -) 650 mg PO Q6H PRN PRN Reason: FEVER Last Admin: 05/08/18 19:45 Dose: 650 mg Alprazolam (Xanax -) 0.25 mg PO Q6H PRN PRN Reason: ANXIETY Last Admin: 05/11/18 19:13 Dose: 0.25 mg Amino Acids (Prosource No Carb Liquid Pkt) 30 ml PO DAILY [facility] Last Admin: 05/13/18 09:27 Dose: 30 ml Atorvastatin Calcium (Lipitor -) 10 mg NGT HS [facility] Last Admin: 05/12/18 22:11 Dose: 10 mg Chlorhexidine Gluconate (Hibiclens For Decolonization -) 1 applic TP HS [facility] Last Admin: 05/12/18 22:11 Dose: 1 applic Chlorhexidine Gluconate (Peridex -) 15 ml MM BID [facility] Last Admin: 05/13/18 09:46 Dose: 15 ml Diltiazem HCl (Cardizem -) 30 mg PO TID [facility] Last Admin: 05/13/18 06:30 Dose: Not Given Escitalopram Oxalate (Lexapro -) 20 mg PO DAILY [facility] Last Admin: 05/13/18 09:26 Dose: 20 mg Famotidine/Sodium Chloride (Pepcid 20 Mg Premixed Ivpb -) 20 mg in 50 mls @ 100 mls/hr IVPB BID TA Last Admin: 05/13/18 09:24 Dose: 100 mls/hr Meropenem 1 gm/ Dextrose 100 mls @ 200 mls/hr IVPB Q8H-IV TA Last Admin: 05/13/18 09:24 Dose: 200 mls/hr Fentanyl 500 mcg/ Dextrose 100 mls @ 10 mls/hr IVPB TITR [facility]; Protocol Last Admin: 05/12/18 19:50 Dose: 25 mcg/hr, 5 mls/hr Midazolam HCl 100 mg/ Sodium (Chloride) 100 mls @ 1 mls/hr IVPB TITR [facility]; Protocol Last Admin: 05/12/18 20:00 Dose: 1 mg/hr, 1 mls/hr Sodium Chloride (Normal Saline -) 500 mls @ 0 mls/hr IV ASDIR [facility] Insulin Aspart (Novolog Vial Sliding Scale -) 1 vial SQ ACHS [facility]; Protocol Last Admin: 05/13/18 06:20 Dose: 2 units Methylprednisolone Sodium Succinate (Solu-Medrol -) 40 mg IVPUSH DAILY [facility] Last Admin: 05/13/18 09:45 Dose: 40 mg Metoprolol Tartrate (Lopressor Injection -) 5 mg IVPUSH Q4H PRN PRN Reason: TACHYCARDIA Last Admin: 05/13/18 09:24 Dose: 5 mg Ondansetron HCl (Zofran Injection) 4 mg IVPUSH Q6H PRN PRN Reason: NAUSEA AND/OR VOMITING Potassium Phos/Sodium Phos (Phos-Nak Packet -) 1 packet PO DAILY [facility] Last Admin: 05/13/18 09:25 Dose: 1 packet Sodium Chloride ([place] Nasal [place] -) 2 spray NS BID PRN PRN Reason: NASAL CONGESTION ASSESSMENT AND PLAN: Acute on Chronic Hypoxic and Hypercapneic Respiratory Failure Bacteremia Septic Shock improving Lactic Acidosis resolved Acute on Chronic Diastolic Heart Failure Severe Mitral Regurgitation Thrombocytopenia CAD Acute COPD Exacerbation Lung Mass Pulmonary HTN Paroxysmal Atrial Fibrillation with RVR HTN Hypercholesterolemia - continue antibiotics per ID - f/u pending cultures - off pressors, maintain MAP >65 - monitor urine output, creatinine - monitor CBC - holding anticoagulation due to thrombocytopenia - rate control - taper medrol - inhaled bronchodilators - O2 to keep SpO2 >90% - lasix as BP tolerates - enteral feeds - spontaneous breathing trials as tolerated but will likely need tracheostomy for repeated intubations - DVT/GI prophylaxis - for transfer to tertiary care center for lung biopsy critical care time spent in reviewing chart, evaluating patient and formulating plan 35 min
[2018-05-13] MEDS ORDERED: fentaNYL CITRATE 250 MCG/5 ML VIAL ONE (11:54)
[2018-05-13 11:58] VITALS: BP 99/76; PULSE 122
--- NOTE | 2018-05-13 12:47 | EKG ---
Test Reason : Blood Pressure : / mmHG Vent. Rate : 132 BPM Atrial Rate : 234 BPM P-R Int : 000 ms QRS Dur : 118 ms QT Int : 320 ms P-R-T Axes : 000 083 -54 degrees QTc Int : 474 ms ATRIAL FIBRILLATION WITH RAPID VENTRICULAR RESPONSE INCOMPLETE RIGHT BUNDLE BRANCH BLOCK ABNORMAL ECG WHEN COMPARED WITH ECG OF 23-APR-2018 17:46, ATRIAL FIBRILLATION HAS REPLACED SINUS RHYTHM INVERTED T WAVES HAVE REPLACED NONSPECIFIC T WAVE ABNORMALITY IN INFERIOR LEADS T WAVE INVERSION NOW EVIDENT IN ANTERIOR LEADS Confirmed by EULALIO INIGUEZ MD ([id number]) on 05/13/2018 12:47:22 PM Referred By: TY ROY Confirmed By:EULALIO INIGUEZ MD
--- NOTE | 2018-05-13 12:54 | PN ---
Physical Exam: SUBJECTIVE: Patient seen and examined Overnight patient febrile to 101, tylenol --> 97.9 Bradycardic to 55bpm, hypotensive to 90/70s, overnight cardiac meds held, fentanyl, versed gtt started 2/2 agitation, discomfort This AM patient in Afib RVR rate of 120-130 OBJECTIVE: Vital Signs Period Temp Pulse Resp BP Sys/Morgan Pulse Ox Last 24 Hr 97.6 F-101 F 54-132 12-27 82-144/42-76 98-100 GENERAL: The patient is sedated, intubated HEAD: Normal with no signs of trauma. EYES: PERRLA, extraocular movements intact, sclera anicteric, conjunctiva clear. No ptosis. ENT: moist mucous membranes. NECK: Trachea midline LUNGS: slightly coarse breath sounds bilaterally, no wheezes, no crackles, no accessory muscle use. HEART: Regular rate and rhythm, S1, S2 without murmur, rub or gallop. ABDOMEN: Soft, nontender, nondistended, no guarding, no rebound, no hepatosplenomegaly, no masses. EXTREMITIES: 2+ pulses, warm, well-perfused, no edema. NEUROLOGICAL: intubated SKIN: Warm, dry, normal turgor, no rashes or lesions noted Laboratory Results - last 24 hr 05/12/18 05/12/18 05/12/18 05:30 14:32 15:00 WBC 4.4 5.1 RBC 2.23 L 2.28 L Hgb 6.5 L* 6.7 L* Hct 20.4 L D 20.9 L MCV 91.3 91.6 MCH 29.3 29.4 MCHC 32.1 32.1 RDW 16.3 H 16.5 H Plt Count 49 L D 57 L MPV 10.1 D 10.7 Absolute Neuts (auto) 4.2 Total Counted Neutrophils % 94.9 H Neutrophils % (Manual) 89.8 H Band Neutrophils % 8.2 Lymphocytes % 2.8 L D Lymphocytes % (Manual) 2.0 L D Monocytes % 2.0 L D Monocytes % (Manual) 0 L D Eosinophils % 0.2 D Eosinophils % (Manual) 0.0 Basophils % 0.1 Basophils % (Manual) 0.0 Myelocytes % (Man) 0 Promyelocytes % (Man) 0 Blast Cells % (Manual) 0 Nucleated RBC % 0 Metamyelocytes 0 Hypochromia 0 Toxic Granulation 0 Dohle Bodies 0 Platelet Estimate Decreased Platelet Comment Polychromasia 0 Poikilocytosis 0 Basophilic Stippling 0 Anisocytosis 0 Microcytosis 0 Macrocytosis 0 Spherocytes 0 Sickle Cells 0 Target Cells 0 Tear Drop Cells 0 Ovalocytes 0 Stomatocytes 0 Helmet Cells 0 [place] Bodies 0 [place] Rings 0 [place] Cells 0 Acanthocytes (Spur) 0 Rouleaux 0 Fragmented RBCs 0 Schistocytes 0 Puncture Site ABG pH ABG pCO2 at Pt Temp ABG pO2 at Pt Temp ABG HCO3 ABG O2 Sat (Measured) ABG O2 Content ABG Base Excess Pardeep Test O2 Delivery Device Oxygen Flow Rate Vent Mode Vent Rate Mechanical Rate PEEP Pressure Support Vent Sodium Potassium Chloride Carbon Dioxide Anion Gap BUN Creatinine Creat Clearance w eGFR POC Glucometer 168.27940 Random Glucose Calcium Phosphorus Magnesium Total Bilirubin AST ALT Alkaline Phosphatase Total Protein Albumin Blood Type Antibody Screen Crossmatch 05/12/18 05/12/18 05/12/18 17:00 18:05 20:30 WBC 6.5 RBC 2.17 L Hgb 6.6 L* Hct 19.5 L MCV 90.2 MCH 30.7 MCHC 34.0 RDW 16.1 H Plt Count 64 L MPV 11.0 Absolute Neuts (auto) 6.4 Total Counted Neutrophils % 97.7 H Neutrophils % (Manual) 89.0 H Band Neutrophils % 6.0 Lymphocytes % 1.2 L D Lymphocytes % (Manual) 2.0 L Monocytes % 1.0 L Monocytes % (Manual) 3 L D Eosinophils % 0.0 D Eosinophils % (Manual) Basophils % 0.1 Basophils % (Manual) Myelocytes % (Man) Promyelocytes % (Man) Blast Cells % (Manual) Nucleated RBC % 0 Metamyelocytes Hypochromia 3+ Toxic Granulation Dohle Bodies Platelet Estimate Decreased Platelet Comment No clumping noted Polychromasia Poikilocytosis Basophilic Stippling Anisocytosis 2+ Microcytosis 1+ Macrocytosis 2+ Spherocytes Sickle Cells Target Cells Tear Drop Cells Ovalocytes Stomatocytes Helmet Cells [place] Bodies [place] Rings Buddy Cells Acanthocytes (Spur) Rouleaux Fragmented RBCs Schistocytes Puncture Site ABG pH ABG pCO2 at Pt Temp ABG pO2 at Pt Temp ABG HCO3 ABG O2 Sat (Measured) ABG O2 Content ABG Base Excess Pardeep Test O2 Delivery Device Oxygen Flow Rate Vent Mode Vent Rate Mechanical Rate PEEP Pressure Support Vent Sodium Potassium Chloride Carbon Dioxide Anion Gap BUN Creatinine Creat Clearance w eGFR POC Glucometer [phone] Random Glucose Calcium Phosphorus Magnesium Total Bilirubin AST ALT Alkaline Phosphatase Total Protein Albumin Blood Type B POSITIVE Antibody Screen Negative Crossmatch See Detail 05/12/18 05/12/18 05/13/18 20:30 22:03 05:30 WBC 6.0 RBC 2.88 L Hgb 8.3 L Hct 25.1 L D MCV 87.1 MCH 28.8 MCHC 33.1 RDW 17.4 H Plt Count 51 L D MPV 10.9 Absolute Neuts (auto) 5.8 Total Counted 100 Neutrophils % 96.3 H Neutrophils % (Manual) 86.0 H Band Neutrophils % 7.0 Lymphocytes % 2.0 L D Lymphocytes % (Manual) 5.0 L Monocytes % 1.5 L Monocytes % (Manual) 2 L D Eosinophils % 0.1 D Eosinophils % (Manual) Basophils % 0.1 Basophils % (Manual) Myelocytes % (Man) Promyelocytes % (Man) Blast Cells % (Manual) Nucleated RBC % 0 Metamyelocytes Hypochromia 1+ Toxic Granulation Dohle Bodies Platelet Estimate Decreased Platelet Comment No clumping noted Polychromasia Poikilocytosis Basophilic Stippling Anisocytosis 1+ Microcytosis Macrocytosis Spherocytes Sickle Cells Target Cells Tear Drop Cells Ovalocytes Stomatocytes Helmet Cells [place] Bodies [place] Rings [place] Cells Acanthocytes (Spur) Rouleaux Fragmented RBCs Schistocytes Puncture Site ABG pH ABG pCO2 at Pt Temp ABG pO2 at Pt Temp ABG HCO3 ABG O2 Sat (Measured) ABG O2 Content ABG Base Excess Pardeep Test O2 Delivery Device Oxygen Flow Rate Vent Mode Vent Rate Mechanical Rate PEEP Pressure Support Vent Sodium 145 Potassium 5.7 H Chloride 104 Carbon Dioxide 38 H Anion Gap 3 L BUN 43 H Creatinine 0.7 Creat Clearance w eGFR > 60 POC Glucometer [phone] Random Glucose 207 H Calcium 8.0 L Phosphorus Magnesium Total Bilirubin 0.7 AST 25 ALT 43 Alkaline Phosphatase 173 H Total Protein 4.6 L Albumin 1.7 L Blood Type Antibody Screen Crossmatch 05/13/18 05/13/18 05:30 06:00 WBC RBC Hgb Hct MCV MCH MCHC RDW Plt Count MPV Absolute Neuts (auto) Total Counted Neutrophils % Neutrophils % (Manual) Band Neutrophils % Lymphocytes % Lymphocytes % (Manual) Monocytes % Monocytes % (Manual) Eosinophils % Eosinophils % (Manual) Basophils % Basophils % (Manual) Myelocytes % (Man) Promyelocytes % (Man) Blast Cells % (Manual) Nucleated RBC % Metamyelocytes Hypochromia Toxic Granulation Dohle Bodies Platelet Estimate Platelet Comment Polychromasia Poikilocytosis Basophilic Stippling Anisocytosis Microcytosis Macrocytosis Spherocytes Sickle Cells Target Cells Tear Drop Cells Ovalocytes Stomatocytes Helmet Cells [place] Bodies [place] Rings Buddy Cells Acanthocytes (Spur) Rouleaux Fragmented RBCs Schistocytes Puncture Site Right radial ABG pH 7.39 ABG pCO2 at Pt Temp 63.7 H* ABG pO2 at Pt Temp 115.0 H ABG HCO3 37.6 H ABG O2 Sat (Measured) 98.3 ABG O2 Content 12.0 L ABG Base Excess 11.4 H Pardeep Test Positive O2 Delivery Device Mech vent Oxygen Flow Rate 45% Vent Mode A/c Vent Rate 12 Mechanical Rate Yes PEEP 5.0 Pressure Support Vent 500 Sodium 146 H Potassium 5.2 H Chloride 105 Carbon Dioxide 38 H Anion Gap 4 L BUN 44 H Creatinine 0.7 Creat Clearance w eGFR > 60 POC Glucometer Random Glucose 153 H Calcium 7.8 L Phosphorus 3.1 Magnesium 2.3 Total Bilirubin 0.7 AST 15 ALT 36 Alkaline Phosphatase 145 H Total Protein 4.2 L Albumin 1.6 L Blood Type Antibody Screen Crossmatch Active Medications Generic Name Dose Route Start Last Admin Trade Name Freq PRN Reason Stop Dose Admin Acetaminophen 650 mg 04/23/18 13:40 05/08/18 19:45 Tylenol - PO 650 mg Q6H PRN Administration FEVER Alprazolam 0.25 mg 05/10/18 17:10 05/11/18 19:13 Xanax - PO 0.25 mg Q6H PRN Administration ANXIETY Amino Acids 30 ml 04/28/18 15:00 05/13/18 09:27 Prosource No Carb Liquid Pkt PO 30 ml DAILY TA Administration Atorvastatin Calcium 10 mg 05/11/18 22:00 05/12/18 22:11 Lipitor - NGT 10 mg HS TA Administration Chlorhexidine Gluconate 1 applic 04/23/18 22:00 05/12/18 22:11 Hibiclens For Decolonization - TP 1 applic HS TA Administration Chlorhexidine Gluconate 15 ml 04/25/18 22:00 05/13/18 09:46 Peridex - MM 15 ml BID TA Administration Diltiazem HCl 30 mg 05/06/18 22:00 05/13/18 06:30 Cardizem - PO Not Given TID TA Escitalopram Oxalate 20 mg 05/05/18 16:00 05/13/18 09:26 Lexapro - PO 20 mg DAILY TA Administration Famotidine/Sodium Chloride 20 mg in 50 mls @ 100 mls/hr 04/24/18 10:00 09:24 Pepcid 20 Mg Premixed Ivpb - IVPB 100 mls/hr BID TA Administration Meropenem 1 gm/ Dextrose 100 mls @ 200 mls/hr 05/06/18 18:00 05/13/18 09:24 IVPB 200 mls/hr Q8H-IV TA Administration Fentanyl 500 mcg/ Dextrose 100 mls @ 10 mls/hr 05/12/18 20:00 05/12/18 19:50 IVPB 25 mcg/hr TITR TA 5 mls/hr Administration Protocol 50 MCG/HR Midazolam HCl 100 mg/ Sodium 100 mls @ 1 mls/hr 05/12/18 20:00 05/12/18 20:00 Chloride IVPB 1 mg/hr TITR TA 1 mls/hr Administration Protocol 1 MG/HR Sodium Chloride 500 mls @ 0 mls/hr 05/13/18 09:15 Normal Saline - IV ASDIR TA Wide Open Insulin Aspart 1 vial 04/24/18 11:00 05/13/18 06:20 Novolog Vial Sliding Scale - SQ 2 units ACHS TA Administration Protocol Methylprednisolone Sodium Succinate 40 mg 05/12/18 10:00 05/13/18 09:45 Solu-Medrol - IVPUSH 40 mg DAILY TA Administration Metoprolol Tartrate 5 mg 04/27/18 14:35 05/13/18 09:24 Lopressor Injection - IVPUSH 5 mg Q4H PRN Administration TACHYCARDIA Ondansetron HCl 4 mg 05/12/18 15:24 Zofran Injection IVPUSH Q6H PRN NAUSEA AND/OR VOMITING Potassium Phos/Sodium Phos 1 packet 05/02/18 10:00 05/13/18 09:25 Phos-Nak Packet - PO 1 packet DAILY TA Administration Sodium Chloride 2 spray 04/29/18 09:00 [place]al [place] - NS BID PRN NASAL CONGESTION ASSESSMENT/PLAN: Patient is a 67 yo M with history of COPD on home oxygen (3L), Interstitial lung disease, HTN, HLD, CHF, diastolic LV dysfunction, NH, CAD, GERD, hiatal hernia, recent dx of Afib with RVR, presenting to the ER with a complaint of epistaxis, hypotension and tachycardia. Now admitted to ICU for septic shock. Pt was recently admitted for MRSA bacteremia ID Septic Shock -likely 2/2 urosepsis - ID following case - source of sepsis likely urine as UA: +leuk esterase, + wbc - blood and urine culture neg, sputum culture with gram negative bacilli - CT scan chest/abd/pelvis (04/25) : L upper air filled cavity in L upper chest , R upper fluid structure(possible abscess) - unchanged from 04/01 - Keep MAP> 65 - femoral line removed, picc line removed - on methylprednisone 40mg IVP daily, will continue to taper MRSA Bacteremia with suspicion of endocarditis, last admission - LUBNA completed (04/27) - LVEF 60-65%, moderate mitral valve prolapse, severe mitral regurgitation, mild tricuspid regurg, mild aortic regurg, mild aortic sclerosis, no vegetation - MRSA bacteremia- completed 42/42 days of abx treatment - antibiotics as per ID: [email or web address] for roseomonas - blood cultures sent on 05/06 - Roseomonas - repeat blood cultures sent 05/10 - no growth GI Loose stools - rectal tube placed - K stable - pending C.diff Heme Acute blood loss, normocytic anemia, likely 2/2 epistaxis - 05/12: Hb 6.6 -> 2UpRBC -> 8.3 - trend H/H - Tranfusion goal of Hb > 8 - nasal packing removed (04/27) w/o complications - ENT following (Dr. Clarke) - keep head end elevated Thrombocytopenia, baseline around 130-140 and since 03/02/18 has been decreasing to 80s, likely 2/2 sepsis and antibiotics. - 05/12: platelets 51 dropped from 64 yesterday - HIT Ab - negative - Heme consulted, following case, thrombocytopenia thought to be 2/2 MRSA bacteremia Epistaxis from the L nares (resolved) - L nasal packing done in ED, ENT consulted ENT recommends nasal packing until Thursday - nasal packing removed (04/27) w/o complications - nasal saline spray bid, observe for bleeding Cardiac Diastolic LV dysfunc, CHF, phx NH, CAD, Afib w/ RVR - Last ECHO (03/31/18) - normal EF, L ventricular function normal, severe MR, moderate TR - Tele monitoring - home dose lipitor - Trop: neg - cardizem TID, lopressor IVP - Cardiology following HTN - hypotensive 2/2 septic shock (resolved) Afib - hold Lovenox for AC due to abrupt drop in plt. f/u HIT AB - will restart AC when platelets > 70 - [id number] score of 3 Pulm COPD, uses 3L home oxygen continue 3L of oxygen, patient intubated - CXR daily - CXR: RUL fluid collection (possible abscess), LINDSEY air collection unchanged from 04/01/18 - Per ID: plan for biopsy/drainage of RUL collection when extubated - Ipratroprium neb - Intubated Ortho Bilateral femoral head avascular necrosis - noted on CT abd/pelvis (04/25) - Ortho following case, Dr. Baez - No orthopedic intervention 2/2 medical status F/E/N - NG tube feeds - Electrolytes trend - Sher cath PPX DVT: SCDs. AC held for thrombocytopenia, restart when platelets > 70 GI: pepcid BID Lines, Tubes: sher, PIV, ET tube, NG tube Code Status: full code Dispo: Pending transfer to [place] ICU Visit type - Emergency Visit Emergency Visit: No - New Patient This patient is new to me today: No - Critical Care Critical Care patient: Yes Total Critical Care Time (in minutes): 35 Critical Care Statement: The care of this patient involved high complexity decision making to prevent further life threatening deterioration of the patient 's condition and/or to evaluate & treat vital organ system(s) failure or risk of failure.
== END 2018-05-13 12:30 | disposition short-term general hospital (02) | DRG 870 ==
LOC: JER 10:39 → JERBED 13:18 → JICU 18:00
PROVIDERS: ADMIT Student in an Organized Health Care Education/Training Program; ATTEND Student in an Organized Health Care Education/Training Program
PROC: 30233N1 Transfusion of Nonautologous Red Blood Cells into Peripheral Vein, Percutaneous Approach (ICD-10-PCS; principal; 2018-04-23)
PROC: 2Y41X5Z Packing of Nasal Region using Packing Material (ICD-10-PCS; 2018-04-23)
PROC: 5A1955Z Respiratory Ventilation, Greater than 96 Consecutive Hours (ICD-10-PCS; 2018-04-24)
PROC: 0BH17EZ Insertion of Endotracheal Airway into Trachea, Via Natural or Artificial Opening (ICD-10-PCS; 2018-04-24)
PROC: 5A09557 Assistance with Respiratory Ventilation, Greater than 96 Consecutive Hours, Continuous Positive Airway Pressure (ICD-10-PCS; 2018-04-24)
PROC: B245ZZ4 Ultrasonography of Left Heart, Transesophageal (ICD-10-PCS; 2018-04-27)
PROC: 0BH17EZ Insertion of Endotracheal Airway into Trachea, Via Natural or Artificial Opening (ICD-10-PCS; 2018-05-06)
PROC: 5A1935Z Respiratory Ventilation, Less than 24 Consecutive Hours (ICD-10-PCS; 2018-05-06)
PROC: 30233R1 Transfusion of Nonautologous Platelets into Peripheral Vein, Percutaneous Approach (ICD-10-PCS; 2018-05-08)
PROC: 05HM33Z Insertion of Infusion Device into Right Internal Jugular Vein, Percutaneous Approach (ICD-10-PCS; 2018-05-12)
PROC: B513ZZA Fluoroscopy of Right Jugular Veins, Guidance (ICD-10-PCS; 2018-05-12)
DX: A41.02 Sepsis due to Methicillin resistant Staphylococcus aureus (principal); R65.21 Severe sepsis with septic shock; J96.02 Acute respiratory failure with hypercapnia; I50.23 Acute on chronic systolic (congestive) heart failure; E87.2 Acidosis; D62 Acute posthemorrhagic anemia; J44.1 Chronic obstructive pulmonary disease with (acute) exacerbation; M87.852 Other osteonecrosis, left femur; M87.851 Other osteonecrosis, right femur; N39.0 Urinary tract infection, site not specified; L89.152 Pressure ulcer of sacral region, stage 2; I11.0 Hypertensive heart disease with heart failure; E05.90 Thyrotoxicosis, unspecified without thyrotoxic crisis or storm; I48.0 Paroxysmal atrial fibrillation; E87.6 Hypokalemia; D70.9 Neutropenia, unspecified; D69.6 Thrombocytopenia, unspecified; Z99.81 Dependence on supplemental oxygen; J34.89 Other specified disorders of nose and nasal sinuses; I27.20 Pulmonary hypertension, unspecified; I34.0 Nonrheumatic mitral (valve) insufficiency; I34.1 Nonrheumatic mitral (valve) prolapse; E78.5 Hyperlipidemia, unspecified; E78.00 Pure hypercholesterolemia, unspecified; I25.2 Old myocardial infarction; K21.9 Gastro-esophageal reflux disease without esophagitis; K44.9 Diaphragmatic hernia without obstruction or gangrene; R04.0 Epistaxis; Z87.891 Personal history of nicotine dependence; I95.9 Hypotension, unspecified; K57.30 Diverticulosis of large intestine without perforation or abscess without bleeding; E07.81 Sick-euthyroid syndrome; Z79.4 Long term (current) use of insulin; I25.119 Atherosclerotic heart disease of native coronary artery with unspecified angina pectoris; F06.4 Anxiety disorder due to known physiological condition; D63.8 Anemia in other chronic diseases classified elsewhere
CPT/HCPCS: 31500; 36415; 36430; 36511; 36600; 71045-TC-FY; 71250-TC; 74177-TC; 80048; 80053; 81003; 81015; 82272; 82550; 82728; 82803; 82962; 83540; 83550; 83605; 83735; 83880; 84100; 84439; 84443; 84484; 85025; 85027; 85384; 85610; 85730; 86022; 86850; 86900; 86901; 86922; 87040; 87070; 87076; 87077; 87086; 87186; 87205; 87324; 87449; 87804; 87899; 93005; 93010; 93312; 93325; 94002; 94640; 94660; 97161-GP; 99285-25; G0480; J0131; J0282; J0878; J7030; P9034; P9038; P9058